=== PATIENT | female | born 1985 | race Caucasian/White ===

== ENCOUNTER 2016-08-19 00:44 | Inpatient (IN) | payer OTHER ==
[~2016-08-19] VITALS: Ht 154.9 cm; Wt 73.9 kg
[2016-08-19] VITALS (8 sets, daily range): BP systolic 91–117; BP diastolic 52–64; O2SAT 97
[~2016-08-19 00:44] MED LIST: ADVI200C5 PO; AMIT10TA2 OR; BISA10SU2 PR; BUPR8SUB SL; BUSP10TA PO; CAPT12.5 OR; CEPH2CAP PO; CHLO25CA PO; COLA100C2 OR; GABA-279 PO; GABA300C3 PO; GABA400C PO; GABA600T PO; KLON0.5T PO; KLON1TAB OR; KLON1TAB PO; MAG400TA PO; MAGN500T2 OR; MILKSUS OR; Ortho-Evra PO; RISP0.5T16 PO; RISP0.5T23 PO; RISP1TAB3 PO; RISP1TAB41 PO; SUBO8TA PO; TOPA25TA10 PO; TOPR25TA OR; TRAZ50TA4 PO; VIST50CA PO; ZOLO100T PO; [UNRECOGNIZED DRUG - CODE] TOP; [UNRECOGNIZED DRUG - MIXTURE] TOP; birth control PO; effexor xr PO; suboxone PO
--- NOTE | 2016-08-19 02:30 | REPUSA ---
HISTORY: Sybncope COMPARISON: Ct brain 04.13.16 TECHNIQUE: Multiple thin-section contiguous helically-acquired, axially-displayed computed tomographic images of the brain were obtained from the posterior fossa continued through the supratentorial structures, with images reviewed at brain, intermediate, and bone windows. FINDINGS: No acute intracranial hemorrhage or evidence of acute transcortical ischemia. No suspicious intra or extra axial fluid collection, middling shift, or evidence of hydrocephalus. The orbits and sella demonstrate no suspicious abnormality. Visualized paranasal sinuses, mastoid air cells, and middle ear cavities are patent. Osseous structures and extra cranial soft tissues demonstrate no abnormalities. IMPRESSION: No acute intracranial abnormality. Thank you for your kind referral of this patient.
[2016-08-19] MEDS ORDERED: levETIRAcetam 500 MG/5 ML VIAL (KEPPRA IV)(J1953) As Ordered ONE (02:45)
[2016-08-19 02:56] LABS: BASO # 0.1 K/mm3 (0.0-0.2); BASO % 1.3 % (0.0-1.0); EOS # 0.1 K/mm3 (0.0-0.50); EOS % 1.5 % (0.0-3.0); LARGE UNSTAINED CELL # 0.2 K/mm3 (0.0-0.4); LARGE UNSTAINED CELL % 1.8 % (0.0-4.0); MEAN CORPUSCULAR HEMOGLOBIN 29.7 pg (27.0-33.0); MEAN CORPUSCULAR VOLUME 95.6 fl (80.0-96.0); MONO # 0.5 K/mm3 (0.0-0.8); MONO % 5.8 % (0.0-5.0); NEUTROPHILS # 5.4 K/mm3 (1.8-7.7); NEUTROPHILS % 58.6 % (36.0-66.0); PLATELET COUNT, AUTOMATED 225 k/mm3 (150-450); RED CELL DISTRIBUTION WIDTH 14.1 % (11.5-14.5); WHITE BLOOD COUNT 9.2 K/mm3 (4.0-10.0)
--- NOTE | 2016-08-19 03:00 | REP ---
Clinical: Syncope . Comparison: 11/22/2011 . Findings: The mediastinum and cardiac silhouette are stable and within normal limits for portable technique. The lung francis are clear without acute consolidation, effusion, or pneumothorax. Skeletal structures are intact. Impression: Normal portable chest x-ray Signed by Yogi Huerta MD 08/19/2016 02:51 A
[2016-08-19 03:15] LABS: AMPHETAMINES LEVEL URINE POSITIVE (NEGATIVE); BENZODIAZEPINES URINE NEGATIVE (NEGATIVE); COCAINE METABOLITE URINE NEGATIVE (NEGATIVE); CONTROL LINE INT CTR LINE PRESENT; METHADONE URINE NEGATIVE (NEGATIVE); OPIATES URINE NEGATIVE (NEGATIVE); TRICYCLIC ANTIDEPRESS URINE POSITIVE (NEGATIVE)
[2016-08-19 04:05] LABS: ALBUMIN 3.6 GM/DL (3.2-5.2); ALBUMIN/GLOBULIN RATIO 0.82 (1.00-1.93); ALKALINE PHOSPHATASE 113 U/L (45-117); ALT/SGPT 65 U/L (12-78); ANION GAP 14 MEQ/L (8-16); AST/SGOT 100 U/L (15-37); BILIRUBIN,TOTAL 0.3 MG/DL (0.2-1.0); BLOOD UREA NITROGEN 12 MG/DL (7-18); CALCIUM LEVEL 8.1 MG/DL (8.5-10.1); CARBON DIOXIDE LEVEL 19 MEQ/L (21-32); CHLORIDE LEVEL 102 MEQ/L (98-107); GLUCOSE, FASTING 92 MG/DL (70-105); SODIUM LEVEL 135 MEQ/L (136-145)
[2016-08-19 04:09] LABS: CREATININE FOR GFR 0.99 MG/DL (0.55-1.02); GLOMERULAR FILTRATION RATE > 60.0 (>60)
[2016-08-19 04:10] LABS: BILIRUBIN,DIRECT < 0.1 MG/DL (0.0-0.2)
[2016-08-19] MEDS ORDERED: OXAZEPAM 15 MG CAP As Ordered ONE (04:12)
[2016-08-19] MEDS ORDERED: QUET5TAB PO (04:57)
[2016-08-19] MEDS ORDERED: BUPR8SUB SL (04:57)
[2016-08-19] MEDS ORDERED: PRAZ1CAP PO (04:57)
[2016-08-19] MEDS ORDERED: GABA300C3 PO (04:57)
[2016-08-19] MEDS ORDERED: TOPI50TA4 PO (04:57)
[2016-08-19 05:30] LABS: CONTROL LINE HCG INT CTR LINE PRESENT
[2016-08-19] MEDS ORDERED: ONDANSETRON 4MG/2ML VIAL (J2405) IV PRN (06:30)
[2016-08-19 08:17] LABS: ANION GAP 8 MEQ/L (8-16); BLOOD UREA NITROGEN 10 MG/DL (7-18); CALCIUM LEVEL 8.5 MG/DL (8.5-10.1); CARBON DIOXIDE LEVEL 25 MEQ/L (21-32); CHLORIDE LEVEL 106 MEQ/L (98-107); CREATININE FOR GFR 0.76 MG/DL (0.55-1.02); GLOMERULAR FILTRATION RATE > 60.0 (>60); GLUCOSE, FASTING 108 MG/DL (70-105); MAGNESIUM LEVEL 1.9 MG/DL (1.8-2.4); POTASSIUM SERUM 4.1 MEQ/L (3.5-5.1); SODIUM LEVEL 139 MEQ/L (136-145)
--- NOTE | 2016-08-19 08:28 | HPE ---
DATE OF ADMISSION: 08/19/2016 This is a patient of Dr. Watkins. CHIEF COMPLAINT: Passed out. SUMMARY OF PRESENTATION: This is a 31-year-old female who was smoking a cigarette outside with her friend when her friend noticed her to fall backwards and become unconscious. She has had previous episodes like this associated with recreational drugs. She was recently in a 28-day rehabilitation program for legal reason. She denies using any recreational drugs at this time, although her toxicology screen is noted to be positive in the emergency department. She had no warning this event was going to happen and apparently woke up slowly afterwards. Her friend who was with her when the event occurred is not with her in the emergency department. PAST MEDICAL HISTORY (Notable for): 1. Hepatitis C. 2. Polysubstance abuse, previously on Suboxone. 3. History of cardiac arrest and resuscitation. 4. History of prolonged QTc interval. 5. Anxiety and depression. 6. Post traumatic stress disorder (PTSD). 7. Tobacco use. PAST SURGICAL HISTORY (Notable for): 1. section. 2. Umbilical hernia repair. SOCIAL HISTORY: She lives in [place]. She continues to smoke tobacco. Denies alcohol use. She has history of IV heroin use, cocaine, synthetic marijuana. FAMILY HISTORY: Notable for a mother who is alive and well and a father who with hepatitis C. REVIEW OF SYSTEMS: No headache. No visual changes. No runny nose. No sore throat. No neck pain. No cough. No shortness of breath. No orthopnea. No chest pain. No abdominal pain. No change in her bowel or bladder habits. Otherwise unremarkable. PHYSICAL EXAMINATION: Blood pressure 130/67. Pulse 125. Respiratory rate 18. Temperature 97.4. 98% on room air. Body mass index (BMI) is 24.5. She is sleepy, but easily aroused. Head is normocephalic. Sinuses are nontender. Pupils are enlarged, but reactive to light. Sclerae anicteric, not injected. Nasal septum is midline. Mucous membranes moist. Neck supple. Breathing is symmetrical, rested. I:E ratio is 1:3. No wheezes, rales or rhonchi. Heart is in a regular rate and rhythm, is tachycardiac, with a rate between 100 and 110. Radial pulses 2+. Capillary refill is less than 2 seconds. Abdomen soft, doughy, nontender. There is no lower extremity edema. She has a flattened affect and depressed mood. White cell count 9.2, hemoglobin 11.9 and platelets of 225. Sodium 135, potassium was hemolyzed, carbon dioxide 19, lactic acid 8.8, AST 100, CK 360, troponin I less than 0.02 and hCG negative. Urine culture is pending. Chest x-ray is unremarkable. Head CT unremarkable. ASSESSMENT: This is a 31-year-old who suffered what would appear to be a syncopal event, the cause of which remains unclear. The patient will require a two midnight hospital stay for further diagnosis and monitoring. PLAN: 1. Cardiovascular. The patient had a syncopal episode and has previous history of cardiac arrest with prolonged QT. The patient will require telemetry monitoring. QTc is within the normal range at this point. No obvious role for a repeat echocardiogram, although this seems to be a cardiovascular event, the possibility of a neurologic event also occurs to me as she had a prolonged period of time for recovery, so electroencephalogram (EEG) is ordered as well. 2. The patient has elevated lactic acid level, which will be repeated. The patient has received IV fluid which will continue. The cause of her lactic acid is probably the syncopal event. 3. The patient has history of hepatitis C. 4. The patient has history of polysubstance abuse. I believe that use of some substance is likely underlying her presentation. 5. Deep vein thrombosis (DVT) prophylaxis is ordered. 6. The patient has significant psychiatric history. 7. The patient has ongoing tobacco use. Nicotine replacement therapy is ordered.
--- NOTE | 2016-08-19 08:44 | ECGEPIP ---
Stationary ECG Study [facility] - ED Test Date: 2016-08-19 Pat Name: BIGG SIMS Department: Room: - Gender: F [employer]: : 1985 Requested By: CHRISTOPH Cohen Order Number: [id number] Reading MD: Taco Blackman Measurements Intervals [place] Rate: 112 P: 49 CO: 147 QRS: 12 QRSD: 106 T: -3 QT: 355 QTc: 485 Interpretive Statements SINUS TACHYCARDIA INCOMPLETE RIGHT BUNDLE BRANCH BLOCK NONSPECIFIC ST & T-WAVE ABNORMALITY SIMILAR TO 05/20/16 Electronically Signed On 08-19-2016 8:44:21 EST by Taco Blackman
--- NOTE | 2016-08-19 09:45 | EDDOCDS ---
Physician Documentation [facility] Name: Cely Galindo Age: 31 yrs Sex: Female : 1985 Arrival Date: 08/19/2016 Time: 00:44 Bed 2 Private MD: Disposition: 08/19/16 04:42 Hospitalization ordered by Sarthak Preston for Observation. Preliminary diagnosis are Epileptic seizures related to external causes, not intractable, without status epilepticus, Underdosing of barbiturates - abuse with withdrawl. - Bed requested for PCU. - Status is Observation. kc3 - Condition is Stable. - Problem is an acute exacerbation. - Symptoms have improved. Historical: - Allergies: no known allergies; - Home Meds: 1. gabapentin 600 mg Oral tab 1 tab 3 times per day 2. Risperdal 1 mg Oral tab bedtime 3. olanzapine 10 mg oral tab 1 tab twice a day 4. topamate 25 mg daily 5. subutex 8mg twice a day 6. Seroquel 50 mg Oral tab 1 tab daily - PMHx: PTSD; Schizophrenia; - PSHx: ; umbilical hernia x 2; - Social history: Smoking status: Patient uses tobacco products, heavy tobacco smoker. No barriers to communication noted, The patient speaks fluent Greenlandic, Speaks appropriately for age. - Family history: Not pertinent. - : The pt / caregiver states he / she is not on anticoagulants. Home medication list is obtained from the patient. - Exposure Risk Screening:: None identified. 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 1 in. (154.94 cm) (R); Pain 0/10; 01:05 BP 105 / 59 (auto/); nn1 01:05 Pulse 121 MON; Pulse Ox 99% ; nn1 02:42 Pulse 126 MON; Pulse Ox 99% ; nn1 02:42 BP 105 / 58 (auto/); nn1 02:44 BP 130 / 67 (auto/); nn1 02:45 Pulse 125 MON; Pulse Ox 98% ; nn1 03:01 BP 114 / 63 (auto/); nn1 03:01 Pulse 119 MON; Pulse Ox 94% ; nn1 03:15 Pulse 106 MON; Pulse Ox 94% ; nn1 03:16 BP 102 / 55 (auto/); nn1 03:31 BP 95 / 53 (auto/); nn1 03:31 Pulse 105 MON; Pulse Ox 94% ; nn1 03:46 BP 88 / 54 (auto/); nn1 03:46 Pulse 103 MON; Pulse Ox 95% ; nn1 04:01 BP 93 / 55 (auto/); nn1 04:01 Pulse 102 MON; Pulse Ox 96% ; nn1 04:16 BP 102 / 71 (auto/); nn1 04:17 Pulse 108 MON; Pulse Ox 99% ; nn1 04:31 BP 96 / 66 (auto/); nn1 04:31 Pulse 92 MON; Pulse Ox 98% ; nn1 05:01 BP 112 / 60 (auto/); nn1 05:01 Pulse 91 MON; nn1 05:16 BP 114 / 59 (auto/); nn1 05:16 Pulse 93 MON; nn1 05:31 BP 117 / 62 (auto/); nn1 05:31 Pulse 94 MON; Pulse Ox 99% ; nn1 05:46 BP 93 / 54 (auto/); nn1 05:46 Pulse 83 MON; Pulse Ox 97% ; nn1 06:01 BP 107 / 64 (auto/); nn1 06:01 Pulse 81 MON; Pulse Ox 97% ; nn1 06:16 BP 112 / 67 (auto/); nn1 06:16 Pulse 93 MON; Pulse Ox 96% ; nn1 06:19 Resp 20; nn1 06:31 BP 94 / 48 (auto/); nn1 06:31 Pulse 88 MON; Pulse Ox 97% ; nn1 06:31 Resp 20; Temp 99.0(TE); nn1 06:46 BP 94 / 54 (auto/); jjr 06:46 Pulse 90 MON; Pulse Ox 97% ; jjr 07:01 BP 98 / 55 (auto/); jjr 07:01 Pulse 95 MON; Resp 18; Pulse Ox 97% on R/A; jjr 09:41 BP 94 / 51; Pulse 93; Resp 18; Temp 98.9(TE); Pulse Ox 97% on R/A; Pain 0/10; rn1 00:54 Body Mass Index 24.56 (58.97 kg, 154.94 cm) mdr MDM: 01:05 Immigration Paral[place]/Pulse Ox/q 15 min VS ordered. mm11 01:05 Accucheck ordered. mm11 01:05 IV Saline Lock ordered. mm11 01:05 Rhythm Strip to chart ordered. mm11 01:07 CBC with Diff Ordered. EDMS 01:07 Cardiac Injury Profile Ordered. EDMS 01:07 Drug Eval Toxicology ED Only Ordered. EDMS 01:07 Liver Profile Ordered. EDMS 01:07 MED Profile Ordered. EDMS 01:07 Thyroid Stimulating Hormone Ordered. EDMS 01:07 Troponin Ordered. EDMS 01:07 Urinalysis Ordered. EDMS 01:07 ETOH Ordered. EDMS 01:07 Urine Culture Ordered. EDMS 01:07 Chest, 1 View Ordered. EDMS 01:07 CT Head Without Contrast Ordered. EDMS 01:07 ECG WITH READING ER PHYS+CARDIAG ordered. EDMS 02:30 levETIRAcetam (20mg/kg) 500 mg IVPB at 400 mL/hr once over 15 mins; dilute in 100mL NS mm11 or D5W ordered. 02:31 Lactic Acid (Zabala tube on ice) Ordered. EDMS 02:47 Financial registration complete. pm4 03:33 CBC with Diff Reviewed. mm11 03:33 Drug Eval Toxicology ED Only Reviewed. mm11 03:33 Urinalysis Reviewed. mm11 03:33 CT Head Without Contrast Reviewed. mm11 03:33 Chest, 1 View Reviewed. mm11 04:07 Oxazepam 15 mg PO once ordered. mm11 04:10 [facility] [place] was scanned into [employer] and attached to record. hs2 04:24 Cardiac Injury Profile Reviewed. mm11 04:24 Liver Profile Reviewed. mm11 04:24 MED Profile Reviewed. mm11 04:24 Thyroid Stimulating Hormone Reviewed. mm11 04:24 Troponin Reviewed. mm11 04:24 ETOH Reviewed. mm11 04:33 Lactic Acid (Zabala tube on ice) Reviewed. mm11 04:36 BED REQUEST+ADM ordered. EDMS 05:23 HCG,Serum Qualitative Ordered. EDMS 05:35 HCG,Serum Qualitative Reviewed. mm11 06:35 Admission / Observation Status ordered. EDMS 06:36 REGULAR DIET ordered. EDMS 06:36 BASIC METABOLIC PROFILE Ordered. EDMS 06:36 MAGNESIUM LEVEL Ordered. EDMS 06:36 LACTIC ACID LEVEL, LACTATE Ordered. EDMS Administered Medications: 02:29 CANCELLED (Other Intervention Used): levETIRAcetam (20mg/kg) 1000 mg IVPB at 400 mL/hr mm11 once over 15 mins; dilute in 100mL NS or D5W 02:51 Drug: levETIRAcetam (20mg/kg) 500 mg [levetiracetam 500 mg/5 mL intravenous solution] nn1 Route: IVPB; Rate: 400 mL/hr; Infused Over: 15 mins; Site: right forearm; 04:17 Drug: Oxazepam 15 mg [oxazepam 15 mg capsule (1 caps)] Route: PO; nn1 Signatures: Dispatcher [employer] EDMS Noman Cohen DO DO mm11 Rush Pickett RN RN nn1 Fito Epps RN RN [facility] Sofia Sandoval RN RN kc3 Joya Ansari, Reg Reg hs2 Garth Eid, Reg Reg pm4 The chart was reviewed and I authenticate all verbal orders and agree with the evaluation and treatment provided.Corrections: (The following items were deleted from the chart) 02:29 02:28 levETIRAcetam (20mg/kg) 1000 mg IVPB at 400 mL/hr once over 15 mins; dilute in mm11 100mL NS or D5W ordered. mm11 Attachments: 04:10 [facility] Payment Agreement hs2 MTDD
--- NOTE | 2016-08-19 09:46 | EDDOCDS ---
Nurse's Notes [facility] Name: Bigg Sims Age: 31 yrs Sex: Female : 1985 Arrival Date: 08/19/2016 Time: 00:44 Bed 2 Private MD: Diagnosis: Epileptic seizures related to external causes, not intractable, without status epilepticus;Underdosing of barbiturates-abuse with withdrawl Presentation: 08/19 00:48 Presenting complaint: EMS states: patients friend reports patient was outside smoking a nn1 cigarette when she fell backwards. Patient unconscious upon EMS arrival. Patient has been slowly waking up since. Patient recently discharged from rehab center. Suicide/Homicide risk assessment- the patient denies having any suicidal and/or homicidal ideations and does not present with any other emotional, behavioral or mental health complaints. Status: Patient is not a resident services director or dependent. Transition of care: patient was not received from another setting of care. 00:48 Acuity: KRISTYN Level 3 nn1 00:48 Method Of Arrival: Ambulance nn1 00:49 Care prior to arrival: Glucose check. 110. nn1 00:50 Adult Sepsis Screening: Patient has new or worsening altered mentation (1 point). nn1 Patient's respiratory rate is less than 22. Systolic blood pressure is greater than 100. Patient has a qSOFA score of 0- Negative Sepsis Screen. Triage Assessment: 00:53 General: Appears in no apparent distress, comfortable, Behavior is appropriate for age, nn1 cooperative. Pain: Denies pain. HIV screening NA for this visit Offered previously. The patient is triaged at the bedside. See Assessment in Nurses Notes section of ED record. Neurological: Level of Consciousness is awake, obeys commands, Oriented to person, place, time, Ice Sculptor are equal bilaterally Speech is normal, Pupils are dilated. Cardiovascular: Rhythm is sinus tachycardia No ectopy. Respiratory: Airway is patent Respiratory effort is even, unlabored, Respiratory pattern is regular, symmetrical. GI: Abdomen is non- distended Bowel sounds present X 4 quads. NOTE KEEPER: 06:49 LMP 08/10/2016 nn1 Historical: - Allergies: no known allergies; - Home Meds: 1. gabapentin 600 mg Oral tab 1 tab 3 times per day 2. Risperdal 1 mg Oral tab bedtime 3. olanzapine 10 mg oral tab 1 tab twice a day 4. topamate 25 mg daily 5. subutex 8mg twice a day 6. Seroquel 50 mg Oral tab 1 tab daily - PMHx: PTSD; Schizophrenia; - PSHx: ; umbilical hernia x 2; - Social history: Smoking status: Patient uses tobacco products, heavy tobacco smoker. No barriers to communication noted, The patient speaks fluent Y[place], Speaks appropriately for age. - Family history: Not pertinent. - : The pt / caregiver states he / she is not on anticoagulants. Home medication list is obtained from the patient. - Exposure Risk Screening:: None identified. Screenin:48 Screening information is obtained from the patient. Fall risk: At risk due to apparent nn1 cognitive impairment. Assistance ADL's: requires no assistance with activities of daily living. Abuse/DV Screen: The patient / caregiver reports he/she is: not in a situation that causes fear, pain or injury. Nutritional screening: No deficits noted. Advance Directives: There is no active DNR order. home support is adequate. Assessment: 00:54 General: See triage assessment . nn1 01:15 General: Patient intermittently twitching. Appears very drowsy, reports taking her nn1 night medication. Patient obeys commands, speech is appropriate. . Pain: Denies pain. Neurological: Level of Consciousness is obeys commands, Oriented to person, place, time. 02:30 General: Patient began having seizure at 0225. Seizure witnessed by this documenter and nn1 staff. Patient non responsive at this time. No IV access at this time despite multiple attempts. Patient on nonrebreather. . General:. Neurological: Level of Consciousness is unresponsive. Cardiovascular: Rhythm is sinus tachycardia No ectopy. Respiratory: Airway is patent Respiratory effort is even, Respiratory pattern is regular. Derm: Skin is pink, warm & dry. 02:45 General: Patient responsive at this time, IV access established. Patient very nn1 lethargic, oriented x 3. Patient has O2 saturation 98% on RA. . Neurological: Level of Consciousness is lethargic, post ictal, Oriented to person, place, time. Respiratory: Airway is patent Respiratory effort is even, Respiratory pattern is regular. 02:50 General: Keppra infusing per order. . nn1 03:47 General: Appears in no apparent distress, to be sleeping. Behavior is drowsy. nn1 Respiratory: Airway is patent Respiratory effort is even, unlabored, Respiratory pattern is regular. Derm: Skin is pink, warm & dry. 04:29 General: Appears in no apparent distress, to be sleeping. Behavior is drowsy. Derm: nn1 Skin is pink, warm & dry. 05:31 General: Patient asleep, patient continues to be on the monitor. Seizure pads in place. nn1 Resp even/unlabored. . 05:55 General: Patient assisted to bedside commode. Patient reports feeling better, patient nn1 oriented, gait steady. Denies complaints at this time. . Neurological: Level of Consciousness is awake, alert, obeys commands, Oriented to person, place, time. 07:22 General: Appears in no apparent distress, well nourished, well groomed, Behavior is jjr appropriate for age. Pain: Location: left eye and lumbar area. Neurological: Level of Consciousness is awake, alert, obeys commands, Oriented to person, place, time, Moves all extremities. Gait is steady, Speech is normal. Cardiovascular: Rhythm is sinus rhythm. Respiratory: Airway is patent Respiratory effort is even, unlabored, Respiratory pattern is regular. Derm: Skin is pink, warm & dry. minimal swelling noted beneath outer corner bottom left eye, pt reports fall on concrete DIANETICIST. 08:33 Adult Sepsis Screening: The patient does not have new or worsening altered mentation. jjr Patient's respiratory rate is less than 22. Systolic blood pressure is greater than 100. Patient has a qSOFA score of 0- Negative Sepsis Screen. General: Appears to be sleeping. Cardiovascular: Rhythm is sinus rhythm. 09:42 General: Appears in no apparent distress, comfortable, Behavior is appropriate for age, kc3 cooperative, drowsy. Pain: Location: back and headache. Neurological: Level of Consciousness is awake, obeys commands, Oriented to person, place, time. Cardiovascular: Rhythm is sinus rhythm. Respiratory: Airway is patent Respiratory effort is even, unlabored, Respiratory pattern is regular, symmetrical. Derm: Skin is pink, warm & dry. Musculoskeletal: Circulation, motion, and sensation intact. Vital Signs: 00:51 BP 114 / 72 (auto/); nn1 00:52 Pulse 126 MON; Pulse Ox 98% ; nn1 00:54 BP 114 / 72; Pulse 125; Resp 18; Temp 97.4(TE); Pulse Ox 98% on R/A; Weight 58.97 kg mdr (R); Height 5 ft. 1 in. (154.94 cm) (R); Pain 0/10; 01:05 BP 105 / 59 (auto/); nn1 01:05 Pulse 121 MON; Pulse Ox 99% ; nn1 02:42 Pulse 126 MON; Pulse Ox 99% ; nn1 02:42 BP 105 / 58 (auto/); nn1 02:44 BP 130 / 67 (auto/); nn1 02:45 Pulse 125 MON; Pulse Ox 98% ; nn1 03:01 BP 114 / 63 (auto/); nn1 03:01 Pulse 119 MON; Pulse Ox 94% ; nn1 03:15 Pulse 106 MON; Pulse Ox 94% ; nn1 03:16 BP 102 / 55 (auto/); nn1 03:31 BP 95 / 53 (auto/); nn1 03:31 Pulse 105 MON; Pulse Ox 94% ; nn1 03:46 BP 88 / 54 (auto/); nn1 03:46 Pulse 103 MON; Pulse Ox 95% ; nn1 04:01 BP 93 / 55 (auto/); nn1 04:01 Pulse 102 MON; Pulse Ox 96% ; nn1 04:16 BP 102 / 71 (auto/); nn1 04:17 Pulse 108 MON; Pulse Ox 99% ; nn1 04:31 BP 96 / 66 (auto/); nn1 04:31 Pulse 92 MON; Pulse Ox 98% ; nn1 05:01 BP 112 / 60 (auto/); nn1 05:01 Pulse 91 MON; nn1 05:16 BP 114 / 59 (auto/); nn1 05:16 Pulse 93 MON; nn1 05:31 BP 117 / 62 (auto/); nn1 05:31 Pulse 94 MON; Pulse Ox 99% ; nn1 05:46 BP 93 / 54 (auto/); nn1 05:46 Pulse 83 MON; Pulse Ox 97% ; nn1 06:01 BP 107 / 64 (auto/); nn1 06:01 Pulse 81 MON; Pulse Ox 97% ; nn1 06:16 BP 112 / 67 (auto/); nn1 06:16 Pulse 93 MON; Pulse Ox 96% ; nn1 06:19 Resp 20; nn1 06:31 BP 94 / 48 (auto/); nn1 06:31 Pulse 88 MON; Pulse Ox 97% ; nn1 06:31 Resp 20; Temp 99.0(TE); nn1 06:46 BP 94 / 54 (auto/); jjr 06:46 Pulse 90 MON; Pulse Ox 97% ; jjr 07:01 BP 98 / 55 (auto/); jjr 07:01 Pulse 95 MON; Resp 18; Pulse Ox 97% on R/A; jjr 09:41 BP 94 / 51; Pulse 93; Resp 18; Temp 98.9(TE); Pulse Ox 97% on R/A; Pain 0/10; rn1 00:54 Body Mass Index 24.56 (58.97 kg, 154.94 cm) mdr Vitals: 06:49 Log In Time N/A - ambulance arrival. nn1 ED Course: 00:44 Patient visited by Jose Rafael Coulter PCA. kb5 00:44 Patient moved to Waiting kb5 00:45 Patient moved to 2 kb5 00:49 Triage Initiated nn1 00:55 Patient visited by Lalo Beltran PCA. mdr 00:59 Noman Cohen DO is Attending Physician. mm11 00:59 Patient visited by Noman Cohen DO. mm11 01:04 Patient visited by Noman Cohen DO. mm11 01:16 Missed attempts: 22 gauge X 1 in left hand. nn1 01:36 Patient visited by Lalo Beltran PCA. mdr 01:36 EKG done. (by ED staff). Reviewed by Noman Cohen DO. mdr 02:08 Patient visited by Rush Pickett RN. nn1 02:41 Lactic Acid (Zabala tube on ice) Sent. sls1 02:41 CBC with Diff Sent. sls1 02:41 Cardiac Injury Profile Sent. sls1 02:41 Liver Profile Sent. sls1 02:41 MED Profile Sent. sls1 02:41 Thyroid Stimulating Hormone Sent. sls1 02:42 The patient / caregiver is instructed regarding the plan of care and ED course. Patient sls1 has correct armband on for positive identification. Placed in psych safe attire. 02:42 Troponin Sent. sls1 02:42 Inserted saline lock: 22 gauge in right forearm and blood collected. sls1 02:54 Side rails up X2. Seizure precautions initiated. groundwater monitoring technician on. Pulse ox on. NIBP sls1 on. 03:02 CT Head Without Contrast Returned. EDMS 03:02 Chest, 1 View Returned. EDMS 03:08 Patient visited by Rush Pickett RN. nn1 03:17 Seizure precautions initiated. groundwater monitoring technician on. Pulse ox on. NIBP on. nn1 03:48 Patient visited by Rush Pickett RN. nn1 04:07 Patient visited by Noman Cohen DO. mm11 04:10 [facility] Payment Agreement was scanned into [employer] and attached to record. hs2 04:29 Notified attending ED physician of Critical lab value. sls1 04:40 Sarthak Preston MD is Hospitalizing Provider. mm11 07:08 Mey Anderson RN is Primary Nurse. jjr 07:24 Patient visited by Mey Anderson RN. jjr 08:34 Patient visited by Mey Anderson RN. jjr 09:01 EKG-ADULT Returned. EDMS 09:43 No procedures done that require assistance. kc3 Administered Medications: 02:29 CANCELLED (Other Intervention Used): levETIRAcetam (20mg/kg) 1000 mg IVPB at 400 mL/hr mm11 once over 15 mins; dilute in 100mL NS or D5W 02:51 Drug: levETIRAcetam (20mg/kg) 500 mg [levetiracetam 500 mg/5 mL intravenous solution] nn1 Route: IVPB; Rate: 400 mL/hr; Infused Over: 15 mins; Site: right forearm; 04:17 Drug: Oxazepam 15 mg [oxazepam 15 mg capsule (1 caps)] Route: PO; nn1 Order Results: Lab Order: CBC with Diff; SPEC'M 08/19/16 02:37 Test: WHITE BLOOD COUNT; Value: 9.2; Range: 4.0-10.0; Units: K/mm3; Status: F Test: RED BLOOD COUNT; Value: 4.00; Range: 4.00-5.40; Units: M/mm3; Status: F Test: HEMOGLOBIN; Value: 11.9; Range: 12.0-16.0; Abnormal: Below low normal; Units: g/dl; Status: F Test: HEMATOCRIT; Value: 38.2; Range: 36.0-47.0; Units: %; Status: F Test: MEAN CORPUSCULAR VOLUME; Value: 95.6; Range: 80.0-96.0; Units: fl; Status: F Test: MEAN CORPUSCULAR HEMOGLOBIN; Value: 29.7; Range: 27.0-33.0; Units: pg; Status: F Test: MEAN CORPUSCULAR HGB CONC; Value: 31.0; Range: 32.0-36.5; Abnormal: Below low normal; Units: g/dl; Status: F Test: RED CELL DISTRIBUTION WIDTH; Value: 14.1; Range: 11.5-14.5; Units: %; Status: F Test: PLATELET COUNT, AUTOMATED; Value: 225; Range: 150-450; Units: k/mm3; Status: F Test: NEUTROPHILS %; Value: 58.6; Range: 36.0-66.0; Units: %; Status: F Test: LYMPH %; Value: 31.0; Range: 24.0-44.0; Units: %; Status: F Test: MONO %; Value: 5.8; Range: 0.0-5.0; Abnormal: Above high normal; Units: %; Status: F Test: EOS %; Value: 1.5; Range: 0.0-3.0; Units: %; Status: F Test: BASO %; Value: 1.3; Range: 0.0-1.0; Abnormal: Above high normal; Units: %; Status: F Test: LARGE UNSTAINED CELL %; Value: 1.8; Range: 0.0-4.0; Units: %; Status: F Test: NEUTROPHILS #; Value: 5.4; Range: 1.8-7.7; Units: K/mm3; Status: F Test: LYMPH #; Value: 3.0; Range: 1.5-4.5; Units: K/mm3; Status: F Test: MONO #; Value: 0.5; Range: 0.0-0.8; Units: K/mm3; Status: F Test: EOS #; Value: 0.1; Range: 0.0-0.50; Units: K/mm3; Status: F Test: BASO #; Value: 0.1; Range: 0.0-0.2; Units: K/mm3; Status: F Test: LARGE UNSTAINED CELL #; Value: 0.2; Range: 0.0-0.4; Units: K/mm3; Status: F Lab Order: Cardiac Injury Profile; SPEC'M 08/19/16 02:37 Test: CPK CREATINE PHOSPHOKINASE; Value: 360; Range: 26-192; Abnormal: Above high normal; Units: U/L; Status: F Test: CK-MB VALUE MASS; Value: 6.5; Range: 0.0-3.6; Abnormal: Above high normal; Units: NG/ML; Status: F Test: MB/CK RELATIVE INDEX; Value: 1.80; Range: < OR =4; Status: F Test Note: ; DIAGNOSIS CRITERIA MMB ng/ml Relative Index (RI) NON-AMI < or = 5 N/A ZABALA ZONE > 5 < or = 4 AMI > 5 > 4 Lab Order: Drug Eval Toxicology ED Only; SPEC'M 08/19/16 02:22 Test: AMPHETAMINES LEVEL URINE; Value: POSITIVE; Range: NEGATIVE; Abnormal: Above high normal; Status: F Test: BARBITURATES URINE; Value: POSITIVE; Range: NEGATIVE; Abnormal: Above high normal; Status: F Test: BENZODIAZEPINES URINE; Value: NEGATIVE; Range: NEGATIVE; Status: F Test: CANNABINOIDS URINE; Value: NEGATIVE; Range: NEGATIVE; Status: F Test: COCAINE METABOLITE URINE; Value: NEGATIVE; Range: NEGATIVE; Status: F Test: METHADONE URINE; Value: NEGATIVE; Range: NEGATIVE; Status: F Test: OPIATES URINE; Value: NEGATIVE; Range: NEGATIVE; Status: F Test: TRICYCLIC ANTIDEPRESS URINE; Value: POSITIVE; Range: NEGATIVE; Abnormal: Above high normal; Status: F Test Note: ; ALL PRESUMPTIVE POSITIVE FINDINGS ARE UNCONFIRMED NORMAL VALUES THRESHOLD IN NG/ML AMPHETAMINES 1000 METHAMPHETAMINES 1000 BARBITURATES 300 BENZODIAZEPINES 300 CANNABINOIDS (THC) 50 COCAINE METABOLITE 300 METHADONE 300 OPIATES 300 PHENCYCLIDINE 25 TRICYCLIC ANTIDEPRESSANTS 1000 RESULTS ARE FOR MEDICAL PURPOSES ONLY. ALL URINE SPECIMENS WILL BE SAVED FOR 3 DAYS. IF CONFIRMATION OF A PRESUMPTIVE POSTIVE SCREEN RESULT IS DESIRED, CALL CHEMISTRY ([phone]) AND REQUEST URINE TO BE SENT TO REFERENCE LAB. FOR A LIST OF CLOSELY RELATED COMPOUNDS PLEASE CALL THE LAB. Lab Order: Liver Profile; SPEC'M 08/19/16 02:37 Test: AST/SGOT; Value: 100; Range: 15-37; Abnormal: Above high normal; Units: U/L; Status: F Test: ALT/SGPT; Value: 65; Range: 12-78; Units: U/L; Status: F Test: ALKALINE PHOSPHATASE; Value: 113; Range: 45-117; Units: U/L; Status: F Test: BILIRUBIN,TOTAL; Value: 0.3; Range: 0.2-1.0; Units: MG/DL; Status: F Test: BILIRUBIN,DIRECT; Value: < 0.1; Range: 0.0-0.2; Units: MG/DL; Status: F Test: TOTAL PROTEIN; Value: 8.0; Range: 6.4-8.2; Units: GM/DL; Status: F Test: ALBUMIN; Value: 3.6; Range: 3.2-5.2; Units: GM/DL; Status: F Test: ALBUMIN/GLOBULIN RATIO; Value: 0.82; Range: 1.00-1.93; Abnormal: Below low normal; Status: F Lab Order: MED Profile; SPEC'M 08/19/16 02:37 Test: GLUCOSE, FASTING; Value: 92; Range: 70-105; Units: MG/DL; Status: F Test: BLOOD UREA NITROGEN; Value: 12; Range: 7-18; Units: MG/DL; Status: F Test: CREATININE FOR GFR; Value: 0.99; Range: 0.55-1.02; Units: MG/DL; Status: F Test: SODIUM LEVEL; Range: 136-145; Units: MEQ/L; Status: I Test: POTASSIUM SERUM; Range: 3.5-5.1; Units: MEQ/L; Status: F Test: CHLORIDE LEVEL; Range: 98-107; Units: MEQ/L; Status: I Test: CARBON DIOXIDE LEVEL; Range: 21-32; Units: MEQ/L; Status: I Test: ANION GAP; Range: 8-16; Units: MEQ/L; Status: I Test: CALCIUM LEVEL; Range: 8.5-10.1; Units: MG/DL; Status: I Test Note: ; Testing was performed on a hemolyzed specimen. Suggest recollection of specimen for more accurate test results. Test: GLOMERULAR FILTRATION RATE; Value: > 60.0; Range: >60; Status: F Test: SODIUM LEVEL; Value: 135; Range: 136-145; Abnormal: Below low normal; Units: MEQ/L; Status: F Test: POTASSIUM SERUM; Range: 3.5-5.1; Units: MEQ/L; Status: F Test: CHLORIDE LEVEL; Value: 102; Range: 98-107; Units: MEQ/L; Status: F Test: CARBON DIOXIDE LEVEL; Value: 19; Range: 21-32; Abnormal: Below low normal; Units: MEQ/L; Status: F Test: ANION GAP; Value: 14; Range: 8-16; Units: MEQ/L; Status: F Test: CALCIUM LEVEL; Value: 8.1; Range: 8.5-10.1; Abnormal: Below low normal; Units: MG/DL; Status: F Test Note: ; Units are mL/min/1.73 m2 Chronic Kidney Disease Staging per NKF: Stage I & II GFR >=60 Normal to Mildly Decreased Stage III GFR 30-59 Moderately Decreased Stage IV GFR 15-29 Severely Decreased Stage V GFR <15 Very Little GFR Left ESRD GFR <15 on TOP EDGE BEVELER Lab Order: Thyroid Stimulating Hormone; SPEC'M 08/19/16 02:37 Test: THYROID STIMULATING HORMONE; Value: 3.440; Range: 0.358-3.740; Units: uIU/ML; Status: F Lab Order: Troponin; SPEC' 08/19/16 02:37 Test: TROPONIN I; Value: < 0.02; Range: < 0.10; Units: NG/ML; Status: F Test Note: ; Troponin I Reference Interval for [employer] LOCI: 99th Percentile= 0.00-0.045 ng/ml Risk Stratification: <= 0.10 ng/ml Decreased Risk for Adverse Clinical Events. 0.10-1.50 ng/ml Increased Risk for Adverse Clinical Events. Evaluation of additional criterion and/or repeat testing in 2-6 hours is suggested to rule out myocardial damage. >= 1.50 ng/ml Indicative of Myocardial Injury. Lab Order: Urinalysis; SPEC'M 08/19/16 02:22 Test: APPEARANCE, URINE; Value: CLEAR; Range: CLEAR; Status: F Test: COLOR, URINE; Value: YELLOW; Range: YELLOW; Status: F Test: PH,URINE; Value: 6.0; Range: 5.0-9.0; Units: UNITS; Status: F Test: SPECIFIC GRAVITY URINE AUTO; Value: 1.019; Range: 1.002-1.035; Status: F Test: PROTEIN, URINE AUTO; Value: NEGATIVE; Range: NEGATIVE; Units: mg/dL; Status: F Test: GLUCOSE, URINE (UA) AUTO; Value: NEGATIVE; Range: NEGATIVE; Units: mg/dL; Status: F Test: KETONE, URINE AUTO; Value: NEGATIVE; Range: NEGATIVE; Units: mg/dL; Status: F Test: UROBILINOGEN, URINE AUTO; Value: 0.2; Range: 0.0-2.0; Units: mg/dL; Status: F Test: BILIRUBIN, URINE AUTO; Value: NEGATIVE; Range: NEGATIVE; Status: F Test: NITRITE, URINE AUTO; Value: NEGATIVE; Range: NEGATIVE; Status: F Test: LEUKOCYTE ESTERASE, URINE AUTO; Value: NEGATIVE; Range: NEGATIVE; Status: F Test: BLOOD, URINE BLOOD; Value: NEGATIVE; Range: NEGATIVE; Status: F Test: WBC, URINE AUTO; Value: 1; Range: 0-3; Units: /HPF; Status: F Test: RBC, URINE AUTO; Value: 1; Range: 0-3; Units: /HPF; Status: F Test: BACTERIA, URINE AUTO; Value: 1+; Range: NEGATIVE; Abnormal: Above high normal; Status: F Test: SQUAMOUS EPITHELIAL CELL UR AU; Value: 2; Range: 0-6; Units: /HPF; Status: F Test: HYALINE CAST, URINE AUTO; Value: 0; Range: 0-1; Units: /LPF; Status: F Lab Order: ETOH; SPEC'M 08/19/16 02:37 Test: ETHYL ALCOHOL (ETHANOL); Value: < 0.003; Range: 0.000-0.010; Units: %; Status: F Lab Order: Lactic Acid (Zabala tube on ice); SPEC'M 08/19/16 02:30 Test: LACTIC ACID LEVEL, LACTATE; Value: 8.8; Range: 0.4-2.0; Abnormal: Above upper panic limits; Units: MMOL/L; Status: F Lab Order: HCG,Serum Qualitative; SPEC'M 08/19/16 02:37 Test: HCG, SERUM QUALITATIVE; Value: NEGATIVE; Range: NEGATIVE; Status: F Lab Order: BASIC METABOLIC PROFILE; SPEC'M 08/19/16 07:48 Test: GLUCOSE, FASTING; Value: 108; Range: 70-105; Abnormal: Above high normal; Units: MG/DL; Status: F Test: BLOOD UREA NITROGEN; Value: 10; Range: 7-18; Units: MG/DL; Status: F Test: CREATININE FOR GFR; Value: 0.76; Range: 0.55-1.02; Units: MG/DL; Status: F Test: GLOMERULAR FILTRATION RATE; Value: > 60.0; Range: >60; Status: F Test: SODIUM LEVEL; Value: 139; Range: 136-145; Units: MEQ/L; Status: F Test: POTASSIUM SERUM; Value: 4.1; Range: 3.5-5.1; Units: MEQ/L; Status: F Test: CHLORIDE LEVEL; Value: 106; Range: 98-107; Units: MEQ/L; Status: F Test: CARBON DIOXIDE LEVEL; Value: 25; Range: 21-32; Units: MEQ/L; Status: F Test: ANION GAP; Value: 8; Range: 8-16; Units: MEQ/L; Status: F Test: CALCIUM LEVEL; Value: 8.5; Range: 8.5-10.1; Units: MG/DL; Status: F Test Note: ; Units are mL/min/1.73 m2 Chronic Kidney Disease Staging per NKF: Stage I & II GFR >=60 Normal to Mildly Decreased Stage III GFR 30-59 Moderately Decreased Stage IV GFR 15-29 Severely Decreased Stage V GFR <15 Very Little GFR Left ESRD GFR <15 on TOP EDGE BEVELER Lab Order: MAGNESIUM LEVEL; SPEC'M 08/19/16 07:48 Test: MAGNESIUM LEVEL; Value: 1.9; Range: 1.8-2.4; Units: MG/DL; Status: F Lab Order: LACTIC ACID LEVEL, LACTATE; SPEC'M 08/19/16 07:48 Test: LACTIC ACID LEVEL, LACTATE; Value: 1.2; Range: 0.4-2.0; Units: MMOL/L; Status: F Radiology Order: CT Head Without Contrast Test: CT Head Without Contrast REASON FOR EXAMINATION: Syncope; ; HISTORY: Sybncope; COMPARISON: Ct brain 9.13.16; TECHNIQUE:; Multiple thin-section contiguous helically-acquired, axially-displayed computed tomographic images of; the brain were obtained from the posterior fossa continued through the supratentorial; structures, with images reviewed at brain, intermediate, and bone windows.; FINDINGS:; No acute intracranial hemorrhage or evidence of acute transcortical ischemia. No suspicious intra or; extra axial fluid collection, middling shift, or evidence of hydrocephalus.; The orbits and sella demonstrate no suspicious abnormality.; Visualized paranasal sinuses, mastoid air cells, and middle ear cavities are patent.; Osseous structures and extra cranial soft tissues demonstrate no abnormalities.; IMPRESSION:; No acute intracranial abnormality.; Thank you for your kind referral of this patient.; ; Radiology Order: Chest, 1 View Test: Chest, 1 View REASON FOR EXAMINATION: Syncope; Clinical: Syncope .; ; Comparison: 11/22/2011 .; ; Findings:; The mediastinum and cardiac silhouette are stable and within normal limits for; portable technique. The lung francis are clear without acute consolidation,; effusion, or pneumothorax. Skeletal structures are intact.; ; Impression:; Normal portable chest x-ray; ; ; Signed by; Yogi Huerta MD 08/19/2016 02:51 A; Radiology Order: EKG-ADULT Test: EKG-ADULT REASON FOR EXAMINATION: Syncope; Stationary ECG Study; [facility] - ED; ; Test Date: 2016-08-19; Pat Name: BIGG SIMS Department:; Room: -; Gender: F Ware Carrier: ; : 1985 Requested By: NOMAN Cohen; Order Number: [id number] Reading MD: Taco Blackman; Measurements; Intervals [place]; Rate: 112 P: 49; SC: 147 QRS: 12; QRSD: 106 T: -3; QT: 355; QTc: 485; Interpretive Statements; SINUS TACHYCARDIA; INCOMPLETE RIGHT BUNDLE BRANCH BLOCK; NONSPECIFIC ST T-WAVE ABNORMALITY; SIMILAR TO 05/20/16; Electronically Signed On 08-19-2016 8:44:21 EST by Taco Blackman; Outcome: 04:42 Decision to Hospitalize by Provider. mm11 09:42 Discharge Assessment: patient administered narcotics - no. The following High Risk kc3 Discharge criteria are identified: None. Admitted to PCU accompanied by nurse, via stretcher, on monitor, with chart. Condition: stable. CT Study completed. Property :Personal belongings accompany Pt. 09:44 Patient left the ED. kc3 Signatures: Dispatcher [employer] EDMS Jose Rafael Coulter, INDUSTRIAL ORGANIZATION MANAGER INDUSTRIAL ORGANIZATION MANAGER kb5 Noman Cohen, DO DO mm11 Mey Anderson, RN RN Azra Edgar RN RN sls1 Kwaku Collins rn1 Rush PickettRN RN nn1 Lalo Beltran, INDUSTRIAL ORGANIZATION MANAGER INDUSTRIAL ORGANIZATION MANAGER Sofia FloresRN RN kc3 Joya Ansari, Reg Reg hs2 MTDD
[2016-08-19] MEDS: NS 1,000 ML IV SCH ×3 (11:22→19:45)
[2016-08-19] MEDS: ENOXAPARIN 40 MG/0.4 ML SYRINGE (J1650) SC SCH (11:23)
[2016-08-19] MEDS: NICOTINE 21MG/24HR 1 EA TRANSDERMAL TD SCH (11:23)
[2016-08-19] MEDS: IBUPROFEN 400 MG TAB PO PRN (12:24)
--- NOTE | 2016-08-19 20:06 | IPNPDOC ---
Assessment/Plan Date Seen The patient was seen on 08/19/16. Plan / VTE VTE Prophylaxis Ordered?: Yes (enoxiparin) Plan IVF: Continue Diet: Continue Current Plan Text 1. Syncope - cardiogenic vs. secondary to drug-abuse vs seizure. Because of pt hx of long QT, pt will be observed on telemetry for 2 days to r/o syncope secondary to arrhythmia. Pt also has a hx of seizures and because her CK-MB and lactic acid was elevated in the ED, it is also possible her syncope was caused by a seizure. Will consider EEG. Will give maintenance IV fluids. 2. Schizophrenia - symptoms are managed well by her home medications. Continue current Risperdal 1 mg PO QD, olanzapine 10mg PO BID. 3. Migraines - pt states her h/a has receded, continue Topiramate 25mg QD for prophylaxis 4. Tobacco usage and other substance abuse - Pt smokes 1 PPD, will give pt nicotine patches while she is in the hospital. 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 5. Lower back pain (chronic) 6. History of hepatitis C 7. VTE Prophylaxis - TEDS SEQS Subjective Review of Systems CC/HPI The patient is a 31-year-old female admitted with a reason for visit of Syncope. Events since last encounter Pt was seen at bedside today. Pt reported feeling extremely fatigued and mentally foggy. No events reported overnight. Pt reports lower back pain which shes had chronically and left orbital eye pain from hitting her head. Pt denies h/a, palpitations, chest pain, shortness of breath, nausea, vomiting, abdominal pain, numbness/tingling, and weakness. General: Reports: Fatigue, Malaise, Denies: Chills, Night Sweats Eyes: Denies: Vision change Pulmonary: Denies: Cough, Pleuritic Chest Pain Cardiovascular: Denies: Chest Pain, Lt Headedness, Palpitations Gastrointestinal: Denies: Abdominal Pain, Nausea, Vomiting Musculoskeletal: Reports: Back Pain Neurological: Denies: Numbness, Weakness Psych: Reports: Mood Normal Objective Physical Examination General Exam: Positive: Alert, Cooperative, No Acute Distress Eye Exam: Positive: Conjunctiva & lids normal, EOMI ENT Exam: Positive: Other ENT (Left orbital ecchymosis ) Chest Exam: Positive: Clear to auscultation, Normal air movement, Negative: Diminished, Rales, Rhonchi, Wheezing Heart Exam: Positive: Normal S1, Normal S2, Regular Rhythm, Tachycardic, Negative: Gallops, Murmurs, Rubs Abdomen Exam: Positive: Normal bowel sounds, Soft, Negative: Tenderness Extremity Exam: Positive: Normal pulses Skin Exam: Positive: Nl turgor and temperature Psych Exam: Positive: Mental status NL, Oriented x 3 Vital Signs/I&O Vital Signs Date Time Temp Pulse Resp B/P Pulse Ox O2 Delivery O2 Flow Rate FiO2 08/19/16 07:52 95.6 98 20 107/59 99 Room Air Laboratory Data Labs 24H Laboratory Tests 2 08/19/16 02:22: Urine Amorphous Sediment , Urine Amphetamine Level POSITIVEH, Urine Benzodiazepines Screen NEGATIVE, Urine Cannabinoids NEGATIVE, Urine Cocaine Metabolite NEGATIVE, Urine Opiates Screen NEGATIVE, Urine Appearance CLEAR, Urine Color YELLOW, Urine pH 6.0, Urine Specific Sutton 1.019, Urine Protein NEGATIVE, Urine Glucose (UA) NEGATIVE, Urine Ketones NEGATIVE, Urine Urobilinogen 0.2, Urine Bilirubin NEGATIVE, Urine Leukocyte Esterase NEGATIVE, Urine Bacteria (Auto) 1+H, Urine Barbiturates, Qualitative POSITIVEH, Urine Blood NEGATIVE, Urine Calcium Carbonate Cryst(Auto) , Urine Calcium Oxalate Cryst (Auto) , Urine Calcium Phosphate Maria Esther (Auto) , Urine Cellular Casts , Urine Cystine Crystals , Urine Granular Casts (Auto) , Urine Hyaline Casts (Auto ) 0, Urine Leucine Crystals , Urine Methadone Screen NEGATIVE, Urine Mucus (Auto ) , Urine Nitrite NEGATIVE, Urine Oval Fat Bodies (Auto) , Urine RBC (Auto) 1, Urine Renal Epithelial Cells , Urine Sperm (Auto) , Urine Squamous Epithelial Cells 2, Urine Transitional Epithelial Cells , Urine Trichomonas (Auto) , Urine Tricyclic Antidepressants POSITIVEH, Urine Triple Phosphate Cryst (Auto) , Urine Tyrosine Crystals , Urine Uric Acid Crystals (Auto) , Urine WBC (Auto) 1, Urine Waxy Casts (Auto) , Urine Yeast-Like Cells (Auto) 08/19/16 02:30: Lactic Acid Level 8.8*H 08/19/16 02:37: Aspartate Amino Transf (AST/SGOT) 100H, Alanine Aminotransferase (ALT/SGPT) 65, Alkaline Phosphatase 113, Total Bilirubin 0.3, Direct Bilirubin < 0.1, Albumin 3.6, Albumin/Globulin Ratio 0.82L, Anion Gap 14, White Blood Count 9.2, Red Blood Count 4.00, Hemoglobin 11.9L, Hematocrit 38.2, Mean Corpuscular Volume 95.6, Mean Corpuscular Hemoglobin 29.7, Mean Corpuscular Hemoglobin Concent 31.0L, Red Cell Distribution Width 14.1, Platelet Count 225, Neutrophils (%) ( Auto) 58.6, Lymphocytes (%) (Auto) 31.0, Monocytes (%) (Auto) 5.8H, Eosinophils (%) (Auto) 1.5, Basophils (%) (Auto) 1.3H, Neutrophils # (Auto) 5.4, Lymphocytes # (Auto) 3.0, Monocytes # (Auto) 0.5, Eosinophils # (Auto) 0.1, Basophils # (Auto) 0.1, Calcium Level 8.1L, Creatine Kinase MB 6.5H, Creatine Kinase MB Relative Index 1.80, Ethyl Alcohol Level < 0.003, Glomerular Filtration Rate > 60.0, Human Chorionic Gonadotropin, Qual NEGATIVE, Large Unclassified Cells # 0.2, Large Unclassified Cells % 1.8, Thyroid Stimulating Hormone (TSH) 3.440, Total Creatine Kinase 360H, Total Protein 8.0, Troponin I < 0.02 08/19/16 07:48: Lactic Acid Level 1.2, Anion Gap 8, Calcium Level 8.5, Glomerular Filtration Rate > 60.0, Blood Urea Nitrogen 10, Creatinine 0.76, Sodium Level 139, Potassium Level 4.1, Chloride Level 106, Carbon Dioxide Level 25, Magnesium Level 1.9 CBC/BMP Laboratory Tests 08/19/16 02:37 Red Blood Count 4.00, Mean Corpuscular Volume 95.6, Mean Corpuscular Hemoglobin 29.7, Mean Corpuscular Hemoglobin Concent 31.0 L, Red Cell Distribution Width 14.1, Neutrophils (%) (Auto) 58.6, Lymphocytes (%) (Auto) 31.0, Monocytes (%) ( Auto) 5.8 H, Eosinophils (%) (Auto) 1.5, Basophils (%) (Auto) 1.3 H, Neutrophils # (Auto) 5.4, Lymphocytes # (Auto) 3.0, Monocytes # (Auto) 0.5, Eosinophils # (Auto) 0.1, Basophils # (Auto) 0.1 08/19/16 07:48 Calcium Level 8.5 Microbiology Microbiology 08/19/16 Urine Culture, Received Pending GME ATTESTATION GME ATTESTATION My preceptor for this patient encounter was physically present in the building during the encounter and was fully available. As needed, all aspects of the patient interview, examination, medical decision making process, and medical care plan development were reviewed and approved by the preceptor. Preceptor is aware and concurs with the plan as stated in the body of this note and will attest to such by his/her cosignature. DORITA BENZ DO Aug 19, 2016 10:33
[2016-08-20] VITALS (26 sets, daily range): BP systolic 119–135; BP diastolic 65–87; O2SAT 91–99
[2016-08-20] MEDS: IBUPROFEN 400 MG TAB PO PRN ×2 (00:02→15:48)
[2016-08-20] MEDS: NS 1,000 ML IV SCH (03:26)
[2016-08-20 06:43] LABS: MEAN CORPUSCULAR HEMOGLOBIN 31.3 pg (27.0-33.0); MEAN CORPUSCULAR HGB CONC 33.2 g/dl (32.0-36.5); MEAN CORPUSCULAR VOLUME 94.1 fl (80.0-96.0); RED CELL DISTRIBUTION WIDTH 13.3 % (11.5-14.5); WHITE BLOOD COUNT 4.9 K/mm3 (4.0-10.0)
[2016-08-20 06:54] LABS: ANION GAP 8 MEQ/L (8-16); BLOOD UREA NITROGEN 11 MG/DL (7-18); CALCIUM LEVEL 8.2 MG/DL (8.5-10.1); CARBON DIOXIDE LEVEL 22 MEQ/L (21-32); CHLORIDE LEVEL 115 MEQ/L (98-107); GLOMERULAR FILTRATION RATE > 60.0 (>60); GLUCOSE, FASTING 89 MG/DL (70-105); MAGNESIUM LEVEL 1.9 MG/DL (1.8-2.4); POTASSIUM SERUM 4.2 MEQ/L (3.5-5.1); SODIUM LEVEL 145 MEQ/L (136-145)
[2016-08-20] MEDS ORDERED: ONDANSETRON 4 MG TAB (S0181) PO PRN (09:15)
[2016-08-20] MEDS: NICOTINE 21MG/24HR 1 EA TRANSDERMAL TD SCH (10:01)
[2016-08-20] MEDS: ENOXAPARIN 40 MG/0.4 ML SYRINGE (J1650) SC SCH (10:02)
[2016-08-20 14:03] LABS: HIV SCRN NEGATIVE (NEGATIVE)
[2016-08-20 14:04] LABS: CONTROL LINE INT CTR LINE PRESENT; HIV SCRN1 NEGATIVE (NEGATIVE)
--- NOTE | 2016-08-20 14:59 | IPNPDOC ---
Assessment/Plan Date Seen The patient was seen on 08/20/16. Problems Problems: (1) Syncope Status: Acute Problem Text: Cardiogenic vs seizures vs drug abuse. Telemetry overnight showed episodes of sinus tachycardia but no arrhythmias. Plan to perform EEG today. (2) History of drug abuse Status: Chronic Problem Text: Pt to be continued on nicotine patches. (3) Migraine Status: Chronic Problem Text: Pt denies having h/a today. Will manage if she is symptomatic. (4) Hepatitis C Status: Chronic Plan / VTE VTE Prophylaxis Ordered?: Yes (enoxiparin) Plan IVF: Continue Diet: Continue Current Subjective Review of Systems CC/HPI The patient is a 31-year-old female admitted with a reason for visit of Syncope. Events since last encounter Pt is a 31 year old female with a history of polysubstance abuse and long QT admitted for syncope. Pt was seen at bedside today and was pleasant. She reported no events overnight. Pt reports feeling less weak than yesterday and does not have issues walking around her room. Pt reports lower back pain is improved today. Pt denies excessive fatigue, fevers, chills, light headedness, palpitations, headaches, abdominal pain, or nausea and vomiting. Constitutional: Denies: Chills, Fever, Weakness Eyes: Denies: Vision change ENT: Denies: Head Aches Pulmonary: Denies: Dyspnea Cardiovascular: Denies: Chest Pain, Lt Headedness, Palpitations Gastrointestinal: Denies: Abdominal Pain, Nausea, Vomiting Psych: Reports: Mood Normal Objective Physical Examination General Exam: Positive: Alert, Cooperative, No Acute Distress Eye Exam: Positive: Conjunctiva & lids normal, EOMI ENT Exam: Positive: Other ENT (Left orbital ecchymosis ) Chest Exam: Positive: Clear to auscultation, Normal air movement, Negative: Diminished, Rales, Rhonchi, Wheezing Heart Exam: Positive: Normal S1, Normal S2, Regular Rhythm, Tachycardic, Negative: Gallops, Murmurs, Rubs Abdomen Exam: Positive: Normal bowel sounds, Soft, Negative: Tenderness Extremity Exam: Positive: Normal pulses Skin Exam: Positive: Nl turgor and temperature Psych Exam: Positive: Mental status NL, Oriented x 3 Vital Signs/I&O Vital Signs Date Time Temp Pulse Resp B/P Pulse Ox O2 Delivery O2 Flow Rate FiO2 08/20/16 06:00 97 Room Air 08/20/16 04:00 97.1 72 18 119/65 I&O- Last 24 Hours up to 6 AM 08/20/16 06:00 Intake Total 4270 ml Output Total 1100 ml Balance 3170 ml Laboratory Data Labs 24H Laboratory Tests 2 08/20/16 06:11: Anion Gap 8, Blood Urea Nitrogen 11, Creatinine 0.70, Sodium Level 145, Potassium Level 4.2, Chloride Level 115H, Carbon Dioxide Level 22, Calcium Level 8.2L, Glomerular Filtration Rate > 60.0, Magnesium Level 1.9 CBC/BMP Laboratory Tests 08/20/16 06:11 Calcium Level 8.2 L, Red Blood Count 3.38 L, Mean Corpuscular Volume 94.1, Mean Corpuscular Hemoglobin 31.3, Mean Corpuscular Hemoglobin Concent 33.2, Red Cell Distribution Width 13.3 Microbiology Microbiology 08/19/16 Urine Culture - Final, Complete DORITA BENZ DO Aug 20, 2016 08:50
[2016-08-21] VITALS (13 sets, daily range): BP systolic 133–141; BP diastolic 87–88; O2SAT 92–96
[2016-08-21 05:28] LABS: MEAN CORPUSCULAR HEMOGLOBIN 31.4 pg (27.0-33.0); MEAN CORPUSCULAR HGB CONC 33.5 g/dl (32.0-36.5); MEAN CORPUSCULAR VOLUME 93.8 fl (80.0-96.0); RED CELL DISTRIBUTION WIDTH 13.2 % (11.5-14.5); WHITE BLOOD COUNT 5.8 K/mm3 (4.0-10.0)
[2016-08-21 05:39] LABS: ANION GAP 9 MEQ/L (8-16); BLOOD UREA NITROGEN 7 MG/DL (7-18); CALCIUM LEVEL 8.2 MG/DL (8.5-10.1); CARBON DIOXIDE LEVEL 23 MEQ/L (21-32); CHLORIDE LEVEL 108 MEQ/L (98-107); CREATININE FOR GFR 0.64 MG/DL (0.55-1.02); GLOMERULAR FILTRATION RATE > 60.0 (>60); GLUCOSE, FASTING 87 MG/DL (70-105); MAGNESIUM LEVEL 1.5 MG/DL (1.8-2.4); POTASSIUM SERUM 3.8 MEQ/L (3.5-5.1); SODIUM LEVEL 140 MEQ/L (136-145)
[2016-08-21] MEDS ORDERED: MAGNESIUM OXIDE 400 MG TAB (MAG-OX) PO ONE (08:00)
[2016-08-21] MEDS: ENOXAPARIN 40 MG/0.4 ML SYRINGE (J1650) SC SCH (08:51)
[2016-08-21] MEDS: NICOTINE 21MG/24HR 1 EA TRANSDERMAL TD SCH (08:52)
[2016-08-21] MEDS ORDERED: TOPIRAMATE (TopAMAX) 25 MG TAB PO SCH (09:00)
[2016-08-21] MEDS ORDERED: GABAPENTIN 300 MG CAP PO SCH (09:00)
[2016-08-21] MEDS ORDERED: busPIRone 5 MG TAB PO SCH (09:00)
[2016-08-21] MEDS ORDERED: SERTRALINE 100 MG TAB PO SCH (09:00)
--- NOTE | 2016-08-21 09:38 | EEG ---
DATE OF ELECTROENCEPHALOGRAM (EEG): 08/20/2016 REFERRING PHYSICIAN: Laurie Miller MD DIAGNOSIS: Loss of consciousness. EEG NO. [id number]. CLINICAL HISTORY: The patient is a 31-year-old woman with history of polysubstance abuse who has gone through rehabilitation. She had an episode of loss of consciousness. This EEG was done to rule out epileptic potential. The patient denied any drug abuse, but her urine toxicology screen was positive in the emergency department, according to notes. She is currently on Lovenox, nicotine patch, ibuprofen etc. TECHNICAL DESCRIPTION: This digital EEG was recorded by 21 scalp, ear, and two electrocardiogram (EKG) electrodes and was reviewed in bipolar and referential montages following reformatting in 10-20 International Electrode Placement System. INTERPRETATION: The patient was noted to be in awake and drowsy states during this EEG. Resting awake background consisted of 9 Hz alpha activity measuring 15-40 microvolts in amplitude, which was reactive to eye opening. Attenuation of posterior dominant rhythm was seen during transition into drowsiness. Stage I and II sleep were reviewed and were symmetric bilaterally. Hyperventilation could not be performed. Photic stimulation remained unremarkable. EKG revealed normal sinus rhythm. No focal, lateralizing, or epileptiform abnormalities were seen. No clinical or electrographic seizures were recorded. CONCLUSION: This EEG in awake, drowsy states, stage I and II sleep is within normal limits.
--- NOTE | 2016-08-21 10:37 | DS.PDOC ---
Discharge Summary General Date of Admission Aug 19, 2016 at 06:30 Date of Discharge Aug 21, 2016 Discharge Summary PRIMARY CARE PHYSICIAN: Dr. June BARON ATTENDING AT TIME OF DISCHARGE: Dr. Laurie Miller DISCHARGE DIAGNOS(E)S: 1. Syncopal episode 2. History of prolonged QT 3. History of Polysubstance abuse 4. History of hepatitis C 5. Anxiety and depression 6. Posttraumatic stress disorder 7. Tobacco use HPI & HOSPITAL COURSE: Ms. Galindo was recently discharged from a 28 day rehabilitation program for apparent Adderall abuse. Shortly after discharge she had been sitting outside with a friend smoking a cigarette when she unsuspectingly had a syncopal episode , for which she was brought to the emergency department by her friend. She was awake and conversant by the time she was seen and evaluated in the ED. With her history of prolonged QT, we were naturally worried about cardiac issues, therefore she was put in a monitored bed, but she had no events on telemetry during her hospitalization. Although her urine toxicology screen in the ED was positive for barbiturates, tricyclic antidepressants, and amphetamines, she did not show any signs or evidence of withdrawal symptoms during her stay. Under the suspicion that this may have been a seizure an EEG was performed, but did not demonstrate any seizure-like activity and was found to be within normal limits. Although no etiology for her syncopal episode has been elucidated, she has not had any additional episodes, nor has she exhibited any symptoms of lightheadedness, or vertigo either. As she has been asymptomatic her entire stay, and she is been ruled out for dangerous etiologies, she appears to be stable for discharge at this time. PHYSICAL EXAMINATION ON DISCHARGE: VITAL SIGNS: Temperature 96.2, pulse 90, respiratory rate 18, blood pressure 141 /88, pulse oximetry 95% on room air GENERAL: Awake, alert, oriented 3. She is in no apparent distress. CARDIOVASCULAR EXAMINATION: Regular rate and rhythm, with no rubs, gallops, or murmur. RESPIRATORY EXAMINATION: Clear to auscultation bilaterally with no wheezes, rales, or rhonchi. ABDOMINAL EXAMINATION: Soft, nontender, nondistended. Bowel sounds present. EXTREMITIES: No clubbing or edema noted. 2+ pulses in the radial bilaterally. DISPOSITION: Home DISCHARGE INSTRUCTIONS: Follow-up with primary care provider Dr. Watkins within 7-10 days. Diet as tolerated. Activity as tolerated. If symptoms return, or if you experience worsening of your symptoms, please call your doctor or return to the emergency department. My preceptor for this patient encounter was physically present in the building during the encounter and was fully available. As needed, all aspects of the patient interview, examination, medical decision making process, and medical care plan development were reviewed and approved by the preceptor. Preceptor is aware and concurs with the plan as stated in the body of this note and will attest to such by his/her cosignature. Laboratory Data Labs 24H Laboratory Tests 2 08/21/16 04:56: Anion Gap 9, Blood Urea Nitrogen 7, Creatinine 0.64, Sodium Level 140, Potassium Level 3.8, Chloride Level 108H, Carbon Dioxide Level 23, Calcium Level 8.2L, Glomerular Filtration Rate > 60.0, Magnesium Level 1.5L CBC/BMP Laboratory Tests 08/21/16 04:56 Calcium Level 8.2 L, Red Blood Count 3.79 L, Mean Corpuscular Volume 93.8, Mean Corpuscular Hemoglobin 31.4, Mean Corpuscular Hemoglobin Concent 33.5, Red Cell Distribution Width 13.2 Microbiology Microbiology 08/19/16 Urine Culture - Final, Complete Medications Scheduled Buprenorphine HCl (Buprenorphine HCl) 8 Mg Sub 8 MG SL BID Buspirone HCl (Buspirone HCl) 10 Mg Tab 15 MG PO BID Gabapentin (Gabapentin) 300 Mg Cap 300 MG PO TID Prazosin Hcl (Prazosin HCl) 1 Mg Cap 1 MG PO QHS Quetiapine Fumerate (Quetiapine Fumarate) 50 Mg Tab 50 MG PO QHS Sertraline Hcl (Zoloft) 100 Mg Tab 100 MG PO DAILY Topiramate (Topiramate) 50 Mg Tab 50 MG PO BID Allergies Coded Allergies: No Known Allergies (Verified , 08/24/06) DORITA BENZ DO Aug 21, 2016 10:37
--- NOTE | 2016-08-21 10:45 | EDDOCDS ---
Physician Documentation [facility] Name: Cely Galindo Age: 31 yrs Sex: Female : 1985 Arrival Date: 08/19/2016 Time: 00:44 Bed 2 Private MD: Disposition: 08/19/16 04:42 Hospitalization ordered by Sarthak Preston for Observation. Preliminary diagnosis are Epileptic seizures related to external causes, not intractable, without status epilepticus, Underdosing of barbiturates - abuse with withdrawl. - Bed requested for PCU. - Status is Observation. kc3 - Condition is Stable. - Problem is an acute exacerbation. - Symptoms have improved. Historical: - Allergies: no known allergies; - Home Meds: 1. gabapentin 600 mg Oral tab 1 tab 3 times per day 2. Risperdal 1 mg Oral tab bedtime 3. olanzapine 10 mg oral tab 1 tab twice a day 4. topamate 25 mg daily 5. subutex 8mg twice a day 6. Seroquel 50 mg Oral tab 1 tab daily - PMHx: PTSD; Schizophrenia; - PSHx: ; umbilical hernia x 2; - Social history: Smoking status: Patient uses tobacco products, heavy tobacco smoker. No barriers to communication noted, The patient speaks fluent Slovak, Speaks appropriately for age. - Family history: Not pertinent. - : The pt / caregiver states he / she is not on anticoagulants. Home medication list is obtained from the patient. - Exposure Risk Screening:: None identified. 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 1 in. (154.94 cm) (R); Pain 0/10; 01:05 BP 105 / 59 (auto/); nn1 01:05 Pulse 121 MON; Pulse Ox 99% ; nn1 02:42 Pulse 126 MON; Pulse Ox 99% ; nn1 02:42 BP 105 / 58 (auto/); nn1 02:44 BP 130 / 67 (auto/); nn1 02:45 Pulse 125 MON; Pulse Ox 98% ; nn1 03:01 BP 114 / 63 (auto/); nn1 03:01 Pulse 119 MON; Pulse Ox 94% ; nn1 03:15 Pulse 106 MON; Pulse Ox 94% ; nn1 03:16 BP 102 / 55 (auto/); nn1 03:31 BP 95 / 53 (auto/); nn1 03:31 Pulse 105 MON; Pulse Ox 94% ; nn1 03:46 BP 88 / 54 (auto/); nn1 03:46 Pulse 103 MON; Pulse Ox 95% ; nn1 04:01 BP 93 / 55 (auto/); nn1 04:01 Pulse 102 MON; Pulse Ox 96% ; nn1 04:16 BP 102 / 71 (auto/); nn1 04:17 Pulse 108 MON; Pulse Ox 99% ; nn1 04:31 BP 96 / 66 (auto/); nn1 04:31 Pulse 92 MON; Pulse Ox 98% ; nn1 05:01 BP 112 / 60 (auto/); nn1 05:01 Pulse 91 MON; nn1 05:16 BP 114 / 59 (auto/); nn1 05:16 Pulse 93 MON; nn1 05:31 BP 117 / 62 (auto/); nn1 05:31 Pulse 94 MON; Pulse Ox 99% ; nn1 05:46 BP 93 / 54 (auto/); nn1 05:46 Pulse 83 MON; Pulse Ox 97% ; nn1 06:01 BP 107 / 64 (auto/); nn1 06:01 Pulse 81 MON; Pulse Ox 97% ; nn1 06:16 BP 112 / 67 (auto/); nn1 06:16 Pulse 93 MON; Pulse Ox 96% ; nn1 06:19 Resp 20; nn1 06:31 BP 94 / 48 (auto/); nn1 06:31 Pulse 88 MON; Pulse Ox 97% ; nn1 06:31 Resp 20; Temp 99.0(TE); nn1 06:46 BP 94 / 54 (auto/); jjr 06:46 Pulse 90 MON; Pulse Ox 97% ; jjr 07:01 BP 98 / 55 (auto/); jjr 07:01 Pulse 95 MON; Resp 18; Pulse Ox 97% on R/A; jjr 09:41 BP 94 / 51; Pulse 93; Resp 18; Temp 98.9(TE); Pulse Ox 97% on R/A; Pain 0/10; rn1 00:54 Body Mass Index 24.56 (58.97 kg, 154.94 cm) mdr MDM: 01:05 Oil Expeller Operator/Pulse Ox/q 15 min VS ordered. mm11 01:05 Accucheck ordered. mm11 01:05 IV Saline Lock ordered. mm11 01:05 Rhythm Strip to chart ordered. mm11 01:07 CBC with Diff Ordered. EDMS 01:07 Cardiac Injury Profile Ordered. EDMS 01:07 Drug Eval Toxicology ED Only Ordered. EDMS 01:07 Liver Profile Ordered. EDMS 01:07 MED Profile Ordered. EDMS 01:07 Thyroid Stimulating Hormone Ordered. EDMS 01:07 Troponin Ordered. EDMS 01:07 Urinalysis Ordered. EDMS 01:07 ETOH Ordered. EDMS 01:07 Urine Culture Ordered. EDMS 01:07 Chest, 1 View Ordered. EDMS 01:07 CT Head Without Contrast Ordered. EDMS 01:07 ECG WITH READING ER PHYS+CARDIAG ordered. EDMS 02:30 levETIRAcetam (20mg/kg) 500 mg IVPB at 400 mL/hr once over 15 mins; dilute in 100mL NS mm11 or D5W ordered. 02:31 Lactic Acid (Zabala tube on ice) Ordered. EDMS 02:47 Financial registration complete. pm4 03:33 CBC with Diff Reviewed. mm11 03:33 Drug Eval Toxicology ED Only Reviewed. mm11 03:33 Urinalysis Reviewed. mm11 03:33 CT Head Without Contrast Reviewed. mm11 03:33 Chest, 1 View Reviewed. mm11 04:07 Oxazepam 15 mg PO once ordered. mm11 04:10 [facility] Payment Agreement was scanned into [employer] and attached to record. hs2 04:24 Cardiac Injury Profile Reviewed. mm11 04:24 Liver Profile Reviewed. mm11 04:24 MED Profile Reviewed. mm11 04:24 Thyroid Stimulating Hormone Reviewed. mm11 04:24 Troponin Reviewed. mm11 04:24 ETOH Reviewed. mm11 04:33 Lactic Acid (Zabala tube on ice) Reviewed. mm11 04:36 BED REQUEST+ADM ordered. EDMS 05:23 HCG,Serum Qualitative Ordered. EDMS 05:35 HCG,Serum Qualitative Reviewed. mm11 06:35 Admission / Observation Status ordered. EDMS 06:36 REGULAR DIET ordered. EDMS 06:36 BASIC METABOLIC PROFILE Ordered. EDMS 06:36 MAGNESIUM LEVEL Ordered. EDMS 06:36 LACTIC ACID LEVEL, LACTATE Ordered. EDMS 13:22 T-Sheet-- Draft Copy was scanned into [employer] and attached to record. gb 13:22 ECG/EKG was scanned into [employer] and attached to record. gb Administered Medications: 02:29 CANCELLED (Other Intervention Used): levETIRAcetam (20mg/kg) 1000 mg IVPB at 400 mL/hr mm11 once over 15 mins; dilute in 100mL NS or D5W 02:51 Drug: levETIRAcetam (20mg/kg) 500 mg [levetiracetam 500 mg/5 mL intravenous solution] nn1 Route: IVPB; Rate: 400 mL/hr; Infused Over: 15 mins; Site: right forearm; 04:17 Drug: Oxazepam 15 mg [oxazepam 15 mg capsule (1 caps)] Route: PO; nn1 Signatures: Dispatcher [employer] EDMS Gale Travis, Reg Reg gb Noman Cohen, DO mm11 Rush Pickett RN RN nn1 Fito Epps RN RN Sofia Banegas RN RN kc3 Joya Ansari, Reg Reg hs2 Garth Eid, Reg Reg pm4 The chart was reviewed and I authenticate all verbal orders and agree with the evaluation and treatment provided.Corrections: (The following items were deleted from the chart) 02:29 02:28 levETIRAcetam (20mg/kg) 1000 mg IVPB at 400 mL/hr once over 15 mins; dilute in mm11 100mL NS or D5W ordered. mm11 Attachments: 04:10 [facility] Payment Agreement hs2 13:22 T-Sheet-- Draft Copy gb 13:22 ECG/EKG gb Chart Complete MTDD
--- NOTE | 2016-08-21 10:45 | EDDOCDS ---
Nurse's Notes [facility] Name: Bigg Sims Age: 31 yrs Sex: Female : 1985 Arrival Date: 08/19/2016 Time: 00:44 Bed 2 Private MD: Diagnosis: Epileptic seizures related to external causes, not intractable, without status epilepticus;Underdosing of barbiturates-abuse with withdrawl Presentation: 08/19 00:48 Presenting complaint: EMS states: patients friend reports patient was outside smoking a nn1 cigarette when she fell backwards. Patient unconscious upon EMS arrival. Patient has been slowly waking up since. Patient recently discharged from rehab center. Suicide/Homicide risk assessment- the patient denies having any suicidal and/or homicidal ideations and does not present with any other emotional, behavioral or mental health complaints. Status: Patient is not a services host or dependent. Transition of care: patient was not received from another setting of care. 00:48 Acuity: KRISTYN Level 3 nn1 00:48 Method Of Arrival: Ambulance nn1 00:49 Care prior to arrival: Glucose check. 110. nn1 00:50 Adult Sepsis Screening: Patient has new or worsening altered mentation (1 point). nn1 Patient's respiratory rate is less than 22. Systolic blood pressure is greater than 100. Patient has a qSOFA score of 0- Negative Sepsis Screen. Triage Assessment: 00:53 General: Appears in no apparent distress, comfortable, Behavior is appropriate for age, nn1 cooperative. Pain: Denies pain. HIV screening NA for this visit Offered previously. The patient is triaged at the bedside. See Assessment in Nurses Notes section of ED record. Neurological: Level of Consciousness is awake, obeys commands, Oriented to person, place, time, Transportation Worker are equal bilaterally Speech is normal, Pupils are dilated. Cardiovascular: Rhythm is sinus tachycardia No ectopy. Respiratory: Airway is patent Respiratory effort is even, unlabored, Respiratory pattern is regular, symmetrical. GI: Abdomen is non- distended Bowel sounds present X 4 quads. 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 gabapentin 600 mg Oral tab 1 tab 3 times per day 2. Risperdal 1 mg Oral tab bedtime 3. olanzapine 10 mg oral tab 1 tab twice a day 4. topamate 25 mg daily 5. subutex 8mg twice a day 6. Seroquel 50 mg Oral tab 1 tab daily - PMHx: PTSD; Schizophrenia; - PSHx: ; umbilical hernia x 2; - Social history: Smoking status: Patient uses tobacco products, heavy tobacco smoker. No barriers to communication noted, The patient speaks fluent Romanian, Speaks appropriately for age. - Family history: Not pertinent. - : The pt / caregiver states he / she is not on anticoagulants. Home medication list is obtained from the patient. - Exposure Risk Screening:: None identified. Screenin:48 Screening information is obtained from the patient. Fall risk: At risk due to apparent nn1 cognitive impairment. Assistance ADL's: requires no assistance with activities of daily living. Abuse/DV Screen: The patient / caregiver reports he/she is: not in a situation that causes fear, pain or injury. Nutritional screening: No deficits noted. Advance Directives: There is no active DNR order. home support is adequate. Assessment: 00:54 General: See triage assessment . nn1 01:15 General: Patient intermittently twitching. Appears very drowsy, reports taking her nn1 night medication. Patient obeys commands, speech is appropriate. . Pain: Denies pain. Neurological: Level of Consciousness is obeys commands, Oriented to person, place, time. 02:30 General: Patient began having seizure at 0225. Seizure witnessed by this documenter and nn1 staff. Patient non responsive at this time. No IV access at this time despite multiple attempts. Patient on nonrebreather. . General:. Neurological: Level of Consciousness is unresponsive. Cardiovascular: Rhythm is sinus tachycardia No ectopy. Respiratory: Airway is patent Respiratory effort is even, Respiratory pattern is regular. Derm: Skin is pink, warm & dry. 02:45 General: Patient responsive at this time, IV access established. Patient very nn1 lethargic, oriented x 3. Patient has O2 saturation 98% on RA. . Neurological: Level of Consciousness is lethargic, post ictal, Oriented to person, place, time. Respiratory: Airway is patent Respiratory effort is even, Respiratory pattern is regular. 02:50 General: Keppra infusing per order. . nn1 03:47 General: Appears in no apparent distress, to be sleeping. Behavior is drowsy. nn1 Respiratory: Airway is patent Respiratory effort is even, unlabored, Respiratory pattern is regular. Derm: Skin is pink, warm & dry. 04:29 General: Appears in no apparent distress, to be sleeping. Behavior is drowsy. Derm: nn1 Skin is pink, warm & dry. 05:31 General: Patient asleep, patient continues to be on the monitor. Seizure pads in place. nn1 Resp even/unlabored. . 05:55 General: Patient assisted to bedside commode. Patient reports feeling better, patient nn1 oriented, gait steady. Denies complaints at this time. . Neurological: Level of Consciousness is awake, alert, obeys commands, Oriented to person, place, time. 07:22 General: Appears in no apparent distress, well nourished, well groomed, Behavior is jjr appropriate for age. Pain: Location: left eye and lumbar area. Neurological: Level of Consciousness is awake, alert, obeys commands, Oriented to person, place, time, Moves all extremities. Gait is steady, Speech is normal. Cardiovascular: Rhythm is sinus rhythm. Respiratory: Airway is patent Respiratory effort is even, unlabored, Respiratory pattern is regular. Derm: Skin is pink, warm & dry. 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 08:33 Adult Sepsis Screening: The patient does not have new or worsening altered mentation. jjr Patient's respiratory rate is less than 22. Systolic blood pressure is greater than 100. Patient has a qSOFA score of 0- Negative Sepsis Screen. General: Appears to be sleeping. Cardiovascular: Rhythm is sinus rhythm. 09:42 General: Appears in no apparent distress, comfortable, Behavior is appropriate for age, kc3 cooperative, drowsy. Pain: Location: back and headache. Neurological: Level of Consciousness is awake, obeys commands, Oriented to person, place, time. Cardiovascular: Rhythm is sinus rhythm. Respiratory: Airway is patent Respiratory effort is even, unlabored, Respiratory pattern is regular, symmetrical. Derm: Skin is pink, warm & dry. Musculoskeletal: Circulation, motion, and sensation intact. Vital Signs: 00:51 BP 114 / 72 (auto/); nn1 00:52 Pulse 126 MON; Pulse Ox 98% ; nn1 00:54 BP 114 / 72; Pulse 125; Resp 18; Temp 97.4(TE); Pulse Ox 98% on R/A; Weight 58.97 kg mdr (R); Height 5 ft. 1 in. (154.94 cm) (R); Pain 0/10; 01:05 BP 105 / 59 (auto/); nn1 01:05 Pulse 121 MON; Pulse Ox 99% ; nn1 02:42 Pulse 126 MON; Pulse Ox 99% ; nn1 02:42 BP 105 / 58 (auto/); nn1 02:44 BP 130 / 67 (auto/); nn1 02:45 Pulse 125 MON; Pulse Ox 98% ; nn1 03:01 BP 114 / 63 (auto/); nn1 03:01 Pulse 119 MON; Pulse Ox 94% ; nn1 03:15 Pulse 106 MON; Pulse Ox 94% ; nn1 03:16 BP 102 / 55 (auto/); nn1 03:31 BP 95 / 53 (auto/); nn1 03:31 Pulse 105 MON; Pulse Ox 94% ; nn1 03:46 BP 88 / 54 (auto/); nn1 03:46 Pulse 103 MON; Pulse Ox 95% ; nn1 04:01 BP 93 / 55 (auto/); nn1 04:01 Pulse 102 MON; Pulse Ox 96% ; nn1 04:16 BP 102 / 71 (auto/); nn1 04:17 Pulse 108 MON; Pulse Ox 99% ; nn1 04:31 BP 96 / 66 (auto/); nn1 04:31 Pulse 92 MON; Pulse Ox 98% ; nn1 05:01 BP 112 / 60 (auto/); nn1 05:01 Pulse 91 MON; nn1 05:16 BP 114 / 59 (auto/); nn1 05:16 Pulse 93 MON; nn1 05:31 BP 117 / 62 (auto/); nn1 05:31 Pulse 94 MON; Pulse Ox 99% ; nn1 05:46 BP 93 / 54 (auto/); nn1 05:46 Pulse 83 MON; Pulse Ox 97% ; nn1 06:01 BP 107 / 64 (auto/); nn1 06:01 Pulse 81 MON; Pulse Ox 97% ; nn1 06:16 BP 112 / 67 (auto/); nn1 06:16 Pulse 93 MON; Pulse Ox 96% ; nn1 06:19 Resp 20; nn1 06:31 BP 94 / 48 (auto/); nn1 06:31 Pulse 88 MON; Pulse Ox 97% ; nn1 06:31 Resp 20; Temp 99.0(TE); nn1 06:46 BP 94 / 54 (auto/); jjr 06:46 Pulse 90 MON; Pulse Ox 97% ; jjr 07:01 BP 98 / 55 (auto/); jjr 07:01 Pulse 95 MON; Resp 18; Pulse Ox 97% on R/A; jjr 09:41 BP 94 / 51; Pulse 93; Resp 18; Temp 98.9(TE); Pulse Ox 97% on R/A; Pain 0/10; rn1 00:54 Body Mass Index 24.56 (58.97 kg, 154.94 cm) mdr Vitals: 06:49 Log In Time N/A - ambulance arrival. nn1 ED Course: 00:44 Patient visited by Jose Rafael Coulter PCA. kb5 00:44 Patient moved to Waiting kb5 00:45 Patient moved to 2 kb5 00:49 Triage Initiated nn1 00:55 Patient visited by Lalo Beltran PCA. mdr 00:59 Noman Cohen DO is Attending Physician. mm11 00:59 Patient visited by Noman Cohen DO. mm11 01:04 Patient visited by Noman Cohen DO. mm11 01:16 Missed attempts: 22 gauge X 1 in left hand. nn1 01:36 Patient visited by Lalo Beltran PCA. mdr 01:36 EKG done. (by ED staff). Reviewed by Noman Cohen DO. mdr 02:08 Patient visited by Rush Pickett RN. nn1 02:41 Lactic Acid (Zabala tube on ice) Sent. sls1 02:41 CBC with Diff Sent. sls1 02:41 Cardiac Injury Profile Sent. sls1 02:41 Liver Profile Sent. sls1 02:41 MED Profile Sent. sls1 02:41 Thyroid Stimulating Hormone Sent. sls1 02:42 The patient / caregiver is instructed regarding the plan of care and ED course. Patient sls1 has correct armband on for positive identification. Placed in psych safe attire. 02:42 Troponin Sent. sls1 02:42 Inserted saline lock: 22 gauge in right forearm and blood collected. sls1 02:54 Side rails up X2. Seizure precautions initiated. it applications developer on. Pulse ox on. NIBP sls1 on. 03:02 CT Head Without Contrast Returned. EDMS 03:02 Chest, 1 View Returned. EDMS 03:08 Patient visited by Rush Pickett RN. nn1 03:17 Seizure precautions initiated. it applications developer on. Pulse ox on. NIBP on. nn1 03:48 Patient visited by Rush Pickett RN. nn1 04:07 Patient visited by Noman Cohen DO. mm11 04:10 [facility] Payment Agreement was scanned into [employer] and attached to record. hs2 04:29 Notified attending ED physician of Critical lab value. sls1 04:40 Sarthak Preston MD is Hospitalizing Provider. mm11 07:08 Mey Anderson RN is Primary Nurse. jjr 07:24 Patient visited by Mey Anderson RN. jjr 08:34 Patient visited by Mey Anderson RN. jjr 09:01 EKG-ADULT Returned. EDMS 09:43 No procedures done that require assistance. kc3 13:22 T-Sheet-- Draft Copy was scanned into [employer] and attached to record. gb 13:22 ECG/EKG was scanned into [employer] and attached to record. gb Administered Medications: 02:29 CANCELLED (Other Intervention Used): levETIRAcetam (20mg/kg) 1000 mg IVPB at 400 mL/hr mm11 once over 15 mins; dilute in 100mL NS or D5W 02:51 Drug: levETIRAcetam (20mg/kg) 500 mg [levetiracetam 500 mg/5 mL intravenous solution] nn1 Route: IVPB; Rate: 400 mL/hr; Infused Over: 15 mins; Site: right forearm; 04:17 Drug: Oxazepam 15 mg [oxazepam 15 mg capsule (1 caps)] Route: PO; nn1 Order Results: Lab Order: CBC with Diff; SPEC'M 08/19/16 02:37 Test: WHITE BLOOD COUNT; Value: 9.2; Range: 4.0-10.0; Units: K/mm3; Status: F Test: RED BLOOD COUNT; Value: 4.00; Range: 4.00-5.40; Units: M/mm3; Status: F Test: HEMOGLOBIN; Value: 11.9; Range: 12.0-16.0; Abnormal: Below low normal; Units: g/dl; Status: F Test: HEMATOCRIT; Value: 38.2; Range: 36.0-47.0; Units: %; Status: F Test: MEAN CORPUSCULAR VOLUME; Value: 95.6; Range: 80.0-96.0; Units: fl; Status: F Test: MEAN CORPUSCULAR HEMOGLOBIN; Value: 29.7; Range: 27.0-33.0; Units: pg; Status: F Test: MEAN CORPUSCULAR HGB CONC; Value: 31.0; Range: 32.0-36.5; Abnormal: Below low normal; Units: g/dl; Status: F Test: RED CELL DISTRIBUTION WIDTH; Value: 14.1; Range: 11.5-14.5; Units: %; Status: F Test: PLATELET COUNT, AUTOMATED; Value: 225; Range: 150-450; Units: k/mm3; Status: F Test: NEUTROPHILS %; Value: 58.6; Range: 36.0-66.0; Units: %; Status: F Test: LYMPH %; Value: 31.0; Range: 24.0-44.0; Units: %; Status: F Test: MONO %; Value: 5.8; Range: 0.0-5.0; Abnormal: Above high normal; Units: %; Status: F Test: EOS %; Value: 1.5; Range: 0.0-3.0; Units: %; Status: F Test: BASO %; Value: 1.3; Range: 0.0-1.0; Abnormal: Above high normal; Units: %; Status: F Test: LARGE UNSTAINED CELL %; Value: 1.8; Range: 0.0-4.0; Units: %; Status: F Test: NEUTROPHILS #; Value: 5.4; Range: 1.8-7.7; Units: K/mm3; Status: F Test: LYMPH #; Value: 3.0; Range: 1.5-4.5; Units: K/mm3; Status: F Test: MONO #; Value: 0.5; Range: 0.0-0.8; Units: K/mm3; Status: F Test: EOS #; Value: 0.1; Range: 0.0-0.50; Units: K/mm3; Status: F Test: BASO #; Value: 0.1; Range: 0.0-0.2; Units: K/mm3; Status: F Test: LARGE UNSTAINED CELL #; Value: 0.2; Range: 0.0-0.4; Units: K/mm3; Status: F Lab Order: Cardiac Injury Profile; SPEC'M 08/19/16 02:37 Test: CPK CREATINE PHOSPHOKINASE; Value: 360; Range: 26-192; Abnormal: Above high normal; Units: U/L; Status: F Test: CK-MB VALUE MASS; Value: 6.5; Range: 0.0-3.6; Abnormal: Above high normal; Units: NG/ML; Status: F Test: MB/CK RELATIVE INDEX; Value: 1.80; Range: < OR =4; Status: F Test Note: ; DIAGNOSIS CRITERIA MMB ng/ml Relative Index (RI) NON-AMI < or = 5 N/A ZABALA ZONE > 5 < or = 4 AMI > 5 > 4 Lab Order: Drug Eval Toxicology ED Only; SPEC'M 08/19/16 02:22 Test: AMPHETAMINES LEVEL URINE; Value: POSITIVE; Range: NEGATIVE; Abnormal: Above high normal; Status: F Test: BARBITURATES URINE; Value: POSITIVE; Range: NEGATIVE; Abnormal: Above high normal; Status: F Test: BENZODIAZEPINES URINE; Value: NEGATIVE; Range: NEGATIVE; Status: F Test: CANNABINOIDS URINE; Value: NEGATIVE; Range: NEGATIVE; Status: F Test: COCAINE METABOLITE URINE; Value: NEGATIVE; Range: NEGATIVE; Status: F Test: METHADONE URINE; Value: NEGATIVE; Range: NEGATIVE; Status: F Test: OPIATES URINE; Value: NEGATIVE; Range: NEGATIVE; Status: F Test: TRICYCLIC ANTIDEPRESS URINE; Value: POSITIVE; Range: NEGATIVE; Abnormal: Above high normal; Status: F Test Note: ; ALL PRESUMPTIVE POSITIVE FINDINGS ARE UNCONFIRMED NORMAL VALUES THRESHOLD IN NG/ML AMPHETAMINES 1000 METHAMPHETAMINES 1000 BARBITURATES 300 BENZODIAZEPINES 300 CANNABINOIDS (THC) 50 COCAINE METABOLITE 300 METHADONE 300 OPIATES 300 PHENCYCLIDINE 25 TRICYCLIC ANTIDEPRESSANTS 1000 RESULTS ARE FOR MEDICAL PURPOSES ONLY. ALL URINE SPECIMENS WILL BE SAVED FOR 3 DAYS. IF CONFIRMATION OF A PRESUMPTIVE POSTIVE SCREEN RESULT IS DESIRED, CALL CHEMISTRY ([phone]) AND REQUEST URINE TO BE SENT TO REFERENCE LAB. FOR A LIST OF CLOSELY RELATED COMPOUNDS PLEASE CALL THE LAB. Lab Order: Liver Profile; SPEC'M 08/19/16 02:37 Test: AST/SGOT; Value: 100; Range: 15-37; Abnormal: Above high normal; Units: U/L; Status: F Test: ALT/SGPT; Value: 65; Range: 12-78; Units: U/L; Status: F Test: ALKALINE PHOSPHATASE; Value: 113; Range: 45-117; Units: U/L; Status: F Test: BILIRUBIN,TOTAL; Value: 0.3; Range: 0.2-1.0; Units: MG/DL; Status: F Test: BILIRUBIN,DIRECT; Value: < 0.1; Range: 0.0-0.2; Units: MG/DL; Status: F Test: TOTAL PROTEIN; Value: 8.0; Range: 6.4-8.2; Units: GM/DL; Status: F Test: ALBUMIN; Value: 3.6; Range: 3.2-5.2; Units: GM/DL; Status: F Test: ALBUMIN/GLOBULIN RATIO; Value: 0.82; Range: 1.00-1.93; Abnormal: Below low normal; Status: F Lab Order: MED Profile; SPEC'M 08/19/16 02:37 Test: GLUCOSE, FASTING; Value: 92; Range: 70-105; Units: MG/DL; Status: F Test: BLOOD UREA NITROGEN; Value: 12; Range: 7-18; Units: MG/DL; Status: F Test: CREATININE FOR GFR; Value: 0.99; Range: 0.55-1.02; Units: MG/DL; Status: F Test: SODIUM LEVEL; Range: 136-145; Units: MEQ/L; Status: I Test: POTASSIUM SERUM; Range: 3.5-5.1; Units: MEQ/L; Status: F Test: CHLORIDE LEVEL; Range: 98-107; Units: MEQ/L; Status: I Test: CARBON DIOXIDE LEVEL; Range: 21-32; Units: MEQ/L; Status: I Test: ANION GAP; Range: 8-16; Units: MEQ/L; Status: I Test: CALCIUM LEVEL; Range: 8.5-10.1; Units: MG/DL; Status: I Test Note: ; Testing was performed on a hemolyzed specimen. Suggest recollection of specimen for more accurate test results. Test: GLOMERULAR FILTRATION RATE; Value: > 60.0; Range: >60; Status: F Test: SODIUM LEVEL; Value: 135; Range: 136-145; Abnormal: Below low normal; Units: MEQ/L; Status: F Test: POTASSIUM SERUM; Range: 3.5-5.1; Units: MEQ/L; Status: F Test: CHLORIDE LEVEL; Value: 102; Range: 98-107; Units: MEQ/L; Status: F Test: CARBON DIOXIDE LEVEL; Value: 19; Range: 21-32; Abnormal: Below low normal; Units: MEQ/L; Status: F Test: ANION GAP; Value: 14; Range: 8-16; Units: MEQ/L; Status: F Test: CALCIUM LEVEL; Value: 8.1; Range: 8.5-10.1; Abnormal: Below low normal; Units: MG/DL; Status: F Test Note: ; Units are mL/min/1.73 m2 Chronic Kidney Disease Staging per NKF: Stage I & II GFR >=60 Normal to Mildly Decreased Stage III GFR 30-59 Moderately Decreased Stage IV GFR 15-29 Severely Decreased Stage V GFR <15 Very Little GFR Left ESRD GFR <15 on NEONATAL DOCTOR Lab Order: Thyroid Stimulating Hormone; SPEC'M 08/19/16 02:37 Test: THYROID STIMULATING HORMONE; Value: 3.440; Range: 0.358-3.740; Units: uIU/ML; Status: F Lab Order: Troponin; SPEC'M 08/19/16 02:37 Test: TROPONIN I; Value: < 0.02; Range: < 0.10; Units: NG/ML; Status: F Test Note: ; Troponin I Reference Interval for [employer] LOCI: 99th Percentile= 0.00-0.045 ng/ml Risk Stratification: <= 0.10 ng/ml Decreased Risk for Adverse Clinical Events. 0.10-1.50 ng/ml Increased Risk for Adverse Clinical Events. Evaluation of additional criterion and/or repeat testing in 2-6 hours is suggested to rule out myocardial damage. >= 1.50 ng/ml Indicative of Myocardial Injury. Lab Order: Urinalysis; SPEC'M 08/19/16 02:22 Test: APPEARANCE, URINE; Value: CLEAR; Range: CLEAR; Status: F Test: COLOR, URINE; Value: YELLOW; Range: YELLOW; Status: F Test: PH,URINE; Value: 6.0; Range: 5.0-9.0; Units: UNITS; Status: F Test: SPECIFIC GRAVITY URINE AUTO; Value: 1.019; Range: 1.002-1.035; Status: F Test: PROTEIN, URINE AUTO; Value: NEGATIVE; Range: NEGATIVE; Units: mg/dL; Status: F Test: GLUCOSE, URINE (UA) AUTO; Value: NEGATIVE; Range: NEGATIVE; Units: mg/dL; Status: F Test: KETONE, URINE AUTO; Value: NEGATIVE; Range: NEGATIVE; Units: mg/dL; Status: F Test: UROBILINOGEN, URINE AUTO; Value: 0.2; Range: 0.0-2.0; Units: mg/dL; Status: F Test: BILIRUBIN, URINE AUTO; Value: NEGATIVE; Range: NEGATIVE; Status: F Test: NITRITE, URINE AUTO; Value: NEGATIVE; Range: NEGATIVE; Status: F Test: LEUKOCYTE ESTERASE, URINE AUTO; Value: NEGATIVE; Range: NEGATIVE; Status: F Test: BLOOD, URINE BLOOD; Value: NEGATIVE; Range: NEGATIVE; Status: F Test: WBC, URINE AUTO; Value: 1; Range: 0-3; Units: /HPF; Status: F Test: RBC, URINE AUTO; Value: 1; Range: 0-3; Units: /HPF; Status: F Test: BACTERIA, URINE AUTO; Value: 1+; Range: NEGATIVE; Abnormal: Above high normal; Status: F Test: SQUAMOUS EPITHELIAL CELL UR AU; Value: 2; Range: 0-6; Units: /HPF; Status: F Test: HYALINE CAST, URINE AUTO; Value: 0; Range: 0-1; Units: /LPF; Status: F Lab Order: ETOH; SPEC'M 08/19/16 02:37 Test: ETHYL ALCOHOL (ETHANOL); Value: < 0.003; Range: 0.000-0.010; Units: %; Status: F Lab Order: Lactic Acid (Zabala tube on ice); SPEC'M 08/19/16 02:30 Test: LACTIC ACID LEVEL, LACTATE; Value: 8.8; Range: 0.4-2.0; Abnormal: Above upper panic limits; Units: MMOL/L; Status: F Lab Order: HCG,Serum Qualitative; SPEC'08/19/16 02:37 Test: HCG, SERUM QUALITATIVE; Value: NEGATIVE; Range: NEGATIVE; Status: F Lab Order: BASIC METABOLIC PROFILE; SPEC08/19/16 07:48 Test: GLUCOSE, FASTING; Value: 108; Range: 70-105; Abnormal: Above high normal; Units: MG/DL; Status: F Test: BLOOD UREA NITROGEN; Value: 10; Range: 7-18; Units: MG/DL; Status: F Test: CREATININE FOR GFR; Value: 0.76; Range: 0.55-1.02; Units: MG/DL; Status: F Test: GLOMERULAR FILTRATION RATE; Value: > 60.0; Range: >60; Status: F Test: SODIUM LEVEL; Value: 139; Range: 136-145; Units: MEQ/L; Status: F Test: POTASSIUM SERUM; Value: 4.1; Range: 3.5-5.1; Units: MEQ/L; Status: F Test: CHLORIDE LEVEL; Value: 106; Range: 98-107; Units: MEQ/L; Status: F Test: CARBON DIOXIDE LEVEL; Value: 25; Range: 21-32; Units: MEQ/L; Status: F Test: ANION GAP; Value: 8; Range: 8-16; Units: MEQ/L; Status: F Test: CALCIUM LEVEL; Value: 8.5; Range: 8.5-10.1; Units: MG/DL; Status: F Test Note: ; Units are mL/min/1.73 m2 Chronic Kidney Disease Staging per NKF: Stage I & II GFR >=60 Normal to Mildly Decreased Stage III GFR 30-59 Moderately Decreased Stage IV GFR 15-29 Severely Decreased Stage V GFR <15 Very Little GFR Left ESRD GFR <15 on NEONATAL DOCTOR Lab Order: MAGNESIUM LEVEL; SPEC08/19/16 07:48 Test: MAGNESIUM LEVEL; Value: 1.9; Range: 1.8-2.4; Units: MG/DL; Status: F Lab Order: LACTIC ACID LEVEL, LACTATE; SPEC08/19/16 07:48 Test: LACTIC ACID LEVEL, LACTATE; Value: 1.2; Range: 0.4-2.0; Units: MMOL/L; Status: F Radiology Order: CT Head Without Contrast Test: CT Head Without Contrast REASON FOR EXAMINATION: Syncope; ; HISTORY: Sybncope; COMPARISON: Ct brain 04.13.16; TECHNIQUE:; Multiple thin-section contiguous helically-acquired, axially-displayed computed tomographic images of; the brain were obtained from the posterior fossa continued through the supratentorial; structures, with images reviewed at brain, intermediate, and bone windows.; FINDINGS:; No acute intracranial hemorrhage or evidence of acute transcortical ischemia. No suspicious intra or; extra axial fluid collection, middling shift, or evidence of hydrocephalus.; The orbits and sella demonstrate no suspicious abnormality.; Visualized paranasal sinuses, mastoid air cells, and middle ear cavities are patent.; Osseous structures and extra cranial soft tissues demonstrate no abnormalities.; IMPRESSION:; No acute intracranial abnormality.; Thank you for your kind referral of this patient.; ; Radiology Order: Chest, 1 View Test: Chest, 1 View REASON FOR EXAMINATION: Syncope; Clinical: Syncope .; ; Comparison: 11/22/2011 .; ; Findings:; The mediastinum and cardiac silhouette are stable and within normal limits for; portable technique. The lung francis are clear without acute consolidation,; effusion, or pneumothorax. 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 mm11 09:42 Discharge Assessment: patient administered narcotics - no. The following High Risk kc3 Discharge criteria are identified: None. Admitted to PCU accompanied by nurse, via stretcher, on monitor, with chart. Condition: stable. CT Study completed. Property :Personal belongings accompany Pt. 09:44 Patient left the ED. kc3 Signatures: Dispatcher [employer] EDMS Gale Travis, Reg Reg gb Jose Rafael Coulter, RECORD PRESS OPERATOR RECORD PRESS OPERATOR kb5 Noman Cohen, DO mm11 Mey Anderson, RN RN Azra Edgar RN RN sls1 Kwaku Collins rn1 Rush PickettRN RN nn1 Lalo Beltran, RECORD PRESS OPERATOR RECORD PRESS OPERATOR Sofia FloresRN RN kc3 Joya Ansari, Reg Reg hs2 Chart Complete [facility]
--- NOTE | 2016-08-21 10:45 | EDDOCDS ---
Physician Documentation [facility] Name: Cely Galindo Age: 31 yrs Sex: Female : 1985 Arrival Date: 08/19/2016 Time: 00:44 Bed 2 Private MD: Disposition: 08/19/16 04:42 Hospitalization ordered by Sarthak Preston for Observation. Preliminary diagnosis are Epileptic seizures related to external causes, not intractable, without status epilepticus, Underdosing of barbiturates - abuse with withdrawl. - Bed requested for PCU. - Status is Observation. kc3 - Condition is Stable. - Problem is an acute exacerbation. - Symptoms have improved. Historical: - Allergies: no known allergies; - Home Meds: 1. gabapentin 600 mg Oral tab 1 tab 3 times per day 2. Risperdal 1 mg Oral tab bedtime 3. olanzapine 10 mg oral tab 1 tab twice a day 4. topamate 25 mg daily 5. subutex 8mg twice a day 6. Seroquel 50 mg Oral tab 1 tab daily - PMHx: PTSD; Schizophrenia; - PSHx: ; umbilical hernia x 2; - Social history: Smoking status: Patient uses tobacco products, heavy tobacco smoker. No barriers to communication noted, The patient speaks fluent [place], Speaks appropriately for age. - Family history: Not pertinent. - : The pt / caregiver states he / she is not on anticoagulants. Home medication list is obtained from the patient. - Exposure Risk Screening:: None identified. 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 1 in. (154.94 cm) (R); Pain 0/10; 01:05 BP 105 / 59 (auto/); nn1 01:05 Pulse 121 MON; Pulse Ox 99% ; nn1 02:42 Pulse 126 MON; Pulse Ox 99% ; nn1 02:42 BP 105 / 58 (auto/); nn1 02:44 BP 130 / 67 (auto/); nn1 02:45 Pulse 125 MON; Pulse Ox 98% ; nn1 03:01 BP 114 / 63 (auto/); nn1 03:01 Pulse 119 MON; Pulse Ox 94% ; nn1 03:15 Pulse 106 MON; Pulse Ox 94% ; nn1 03:16 BP 102 / 55 (auto/); nn1 03:31 BP 95 / 53 (auto/); nn1 03:31 Pulse 105 MON; Pulse Ox 94% ; nn1 03:46 BP 88 / 54 (auto/); nn1 03:46 Pulse 103 MON; Pulse Ox 95% ; nn1 04:01 BP 93 / 55 (auto/); nn1 04:01 Pulse 102 MON; Pulse Ox 96% ; nn1 04:16 BP 102 / 71 (auto/); nn1 04:17 Pulse 108 MON; Pulse Ox 99% ; nn1 04:31 BP 96 / 66 (auto/); nn1 04:31 Pulse 92 MON; Pulse Ox 98% ; nn1 05:01 BP 112 / 60 (auto/); nn1 05:01 Pulse 91 MON; nn1 05:16 BP 114 / 59 (auto/); nn1 05:16 Pulse 93 MON; nn1 05:31 BP 117 / 62 (auto/); nn1 05:31 Pulse 94 MON; Pulse Ox 99% ; nn1 05:46 BP 93 / 54 (auto/); nn1 05:46 Pulse 83 MON; Pulse Ox 97% ; nn1 06:01 BP 107 / 64 (auto/); nn1 06:01 Pulse 81 MON; Pulse Ox 97% ; nn1 06:16 BP 112 / 67 (auto/); nn1 06:16 Pulse 93 MON; Pulse Ox 96% ; nn1 06:19 Resp 20; nn1 06:31 BP 94 / 48 (auto/); nn1 06:31 Pulse 88 MON; Pulse Ox 97% ; nn1 06:31 Resp 20; Temp 99.0(TE); nn1 06:46 BP 94 / 54 (auto/); jjr 06:46 Pulse 90 MON; Pulse Ox 97% ; jjr 07:01 BP 98 / 55 (auto/); jjr 07:01 Pulse 95 MON; Resp 18; Pulse Ox 97% on R/A; jjr 09:41 BP 94 / 51; Pulse 93; Resp 18; Temp 98.9(TE); Pulse Ox 97% on R/A; Pain 0/10; rn1 00:54 Body Mass Index 24.56 (58.97 kg, 154.94 cm) mdr MDM: 01:05 Banking Services Officer/Pulse Ox/q 15 min VS ordered. mm11 01:05 Accucheck ordered. mm11 01:05 IV Saline Lock ordered. mm11 01:05 Rhythm Strip to chart ordered. mm11 01:07 CBC with Diff Ordered. EDMS 01:07 Cardiac Injury Profile Ordered. EDMS 01:07 Drug Eval Toxicology ED Only Ordered. EDMS 01:07 Liver Profile Ordered. EDMS 01:07 MED Profile Ordered. EDMS 01:07 Thyroid Stimulating Hormone Ordered. EDMS 01:07 Troponin Ordered. EDMS 01:07 Urinalysis Ordered. EDMS 01:07 ETOH Ordered. EDMS 01:07 Urine Culture Ordered. EDMS 01:07 Chest, 1 View Ordered. EDMS 01:07 CT Head Without Contrast Ordered. EDMS 01:07 ECG WITH READING ER PHYS+CARDIAG ordered. EDMS 02:30 levETIRAcetam (20mg/kg) 500 mg IVPB at 400 mL/hr once over 15 mins; dilute in 100mL NS mm11 or D5W ordered. 02:31 Lactic Acid (Zabala tube on ice) Ordered. EDMS 02:47 Financial registration complete. pm4 03:33 CBC with Diff Reviewed. mm11 03:33 Drug Eval Toxicology ED Only Reviewed. mm11 03:33 Urinalysis Reviewed. mm11 03:33 CT Head Without Contrast Reviewed. mm11 03:33 Chest, 1 View Reviewed. mm11 04:07 Oxazepam 15 mg PO once ordered. mm11 04:10 [facility] Payment Agreement was scanned into [employer] and attached to record. hs2 04:24 Cardiac Injury Profile Reviewed. mm11 04:24 Liver Profile Reviewed. mm11 04:24 MED Profile Reviewed. mm11 04:24 Thyroid Stimulating Hormone Reviewed. mm11 04:24 Troponin Reviewed. mm11 04:24 ETOH Reviewed. mm11 04:33 Lactic Acid (Zabala tube on ice) Reviewed. mm11 04:36 BED REQUEST+ADM ordered. EDMS 05:23 HCG,Serum Qualitative Ordered. EDMS 05:35 HCG,Serum Qualitative Reviewed. mm11 06:35 Admission / Observation Status ordered. EDMS 06:36 REGULAR DIET ordered. EDMS 06:36 BASIC METABOLIC PROFILE Ordered. EDMS 06:36 MAGNESIUM LEVEL Ordered. EDMS 06:36 LACTIC ACID LEVEL, LACTATE Ordered. EDMS 13:22 T-Sheet-- Draft Copy was scanned into [employer] and attached to record. gb 13:22 ECG/EKG was scanned into [employer] and attached to record. gb Administered Medications: 02:29 CANCELLED (Other Intervention Used): levETIRAcetam (20mg/kg) 1000 mg IVPB at 400 mL/hr mm11 once over 15 mins; dilute in 100mL NS or D5W 02:51 Drug: levETIRAcetam (20mg/kg) 500 mg [levetiracetam 500 mg/5 mL intravenous solution] nn1 Route: IVPB; Rate: 400 mL/hr; Infused Over: 15 mins; Site: right forearm; 04:17 Drug: Oxazepam 15 mg [oxazepam 15 mg capsule (1 caps)] Route: PO; nn1 Signatures: Dispatcher [employer] EDMS Gale Travis, Reg Reg gb Noman Cohen, DO mm11 Rush Pickett RN RN nn1 Fito Epps RN RN Sofia Banegas RN RN kc3 Joya Ansari, Reg Reg hs2 Garth Eid, Reg Reg pm4 The chart was reviewed and I authenticate all verbal orders and agree with the evaluation and treatment provided.Corrections: (The following items were deleted from the chart) 02:29 02:28 levETIRAcetam (20mg/kg) 1000 mg IVPB at 400 mL/hr once over 15 mins; dilute in mm11 100mL NS or D5W ordered. mm11 Attachments: 04:10 [facility] Payment Agreement hs2 13:22 T-Sheet-- Draft Copy gb 13:22 ECG/EKG gb Chart Complete MTDD
[2016-08-21] MEDS ORDERED: QUEtiapine FUMARATE 50 MG TAB PO SCH (21:00)
[2016-08-21] MEDS ORDERED: PRAZOSIN 1 MG CAP PO SCH (21:00)
== END 2016-08-21 12:32 | disposition home or self-care (01) | DRG 204 ==
LOC: M ED 00:44 → M ED INP 06:30 → M PCU 09:49
PROVIDERS: ADMIT Internal Medicine; ATTEND Internal Medicine
DX: R55 Syncope and collapse (principal); B19.20 Unspecified viral hepatitis C without hepatic coma; I45.81 Long QT syndrome; F19.10 Other psychoactive substance abuse, uncomplicated; F41.8 Other specified anxiety disorders; F43.10 Post-traumatic stress disorder, unspecified; F17.210 Nicotine dependence, cigarettes, uncomplicated; G43.909 Migraine, unspecified, not intractable, without status migrainosus; F20.9 Schizophrenia, unspecified; M54.5 Low back pain; Z79.899 Other long term (current) drug therapy

== ENCOUNTER 2017-03-31 11:45 | Emergency (ER) | payer BC, MEDICAID, OTHER, SELFPAY ==
[~2017-03-31] VITALS: Ht 154.9 cm; Wt 59.0 kg
[~2017-03-31 11:45] MED LIST changes: +GABA-282 PO; -GABA300C3 PO; +PRAZ1CAP PO; +QUET5TAB PO; -RISP0.5T16 PO; +RISP0.5T21 PO; -RISP1TAB41 PO; +RISP1TAB42 PO; +TOPA1TAB PO; -TOPA25TA10 PO; +TOPI50TA9 PO; +TRAZ50TA11 PO; -TRAZ50TA4 PO
[2017-03-31 11:46] VITALS: BP 119/91
[2017-03-31] MEDS ORDERED: ZYPR10TA PO (12:18)
[2017-03-31] MEDS ORDERED: ZOLO100T PO (12:18)
[2017-03-31] MEDS ORDERED: ZYPR20TA PO (12:18)
[2017-03-31] MEDS ORDERED: BUSP30TA PO (12:18)
== END 2017-03-31 12:36 | disposition home or self-care (01) ==
LOC: M ED 11:45
DX: F41.9 Anxiety disorder, unspecified (principal); F33.9 Major depressive disorder, recurrent, unspecified; F20.9 Schizophrenia, unspecified; F43.10 Post-traumatic stress disorder, unspecified; R11.0 Nausea; R51 Headache; R42 Dizziness and giddiness; B19.20 Unspecified viral hepatitis C without hepatic coma; F17.210 Nicotine dependence, cigarettes, uncomplicated; Z79.899 Other long term (current) drug therapy

== ENCOUNTER → 2017-04-18 | Outpatient (CLI) | payer OTHER ==
[~2017-04-18] MED LIST changes: +BUSP30TA PO; +KEFL500C17 PO; +METH40TA PO; +ZYPR10TA PO; +ZYPR20TA PO
[2017-04-18 11:36] LABS: BASO # 0.1 K/mm3 (0.0-0.2); BASO % 1.1 % (0.0-1.0); EOS # 0.1 K/mm3 (0.0-0.50); EOS % 1.9 % (0.0-3.0); LARGE UNSTAINED CELL # 0.1 K/mm3 (0.0-0.4); LARGE UNSTAINED CELL % 1.4 % (0.0-4.0); LYMPH # 2.1 K/mm3 (1.5-4.5); LYMPH % 31.1 % (24.0-44.0); MEAN CORPUSCULAR HEMOGLOBIN 31.6 pg (27.0-33.0); MEAN CORPUSCULAR HGB CONC 33.5 g/dl (32.0-36.5); MEAN CORPUSCULAR VOLUME 94.4 fl (80.0-96.0); MONO # 0.4 K/mm3 (0.0-0.8); MONO % 6.1 % (0.0-5.0); NEUTROPHILS # 3.8 K/mm3 (1.8-7.7); NEUTROPHILS % 58.5 % (36.0-66.0); PLATELET COUNT, AUTOMATED 173 k/mm3 (150-450); RED CELL DISTRIBUTION WIDTH 12.7 % (11.5-14.5); WHITE BLOOD COUNT 6.5 K/mm3 (4.0-10.0)
[2017-04-18 11:37] LABS: CONTROL LINE UCG INT CTR LINE PRESENT
[2017-04-18 12:13] LABS: ALBUMIN 3.8 GM/DL (3.2-5.2); ALBUMIN/GLOBULIN RATIO 1.03 (1.00-1.93); ALKALINE PHOSPHATASE 83 U/L (45-117); ALT/SGPT 86 U/L (12-78); ANION GAP 7 MEQ/L (8-16); AST/SGOT 86 U/L (15-37); BILIRUBIN,TOTAL 0.3 MG/DL (0.2-1.0); BLOOD UREA NITROGEN 7 MG/DL (7-18); CALCIUM LEVEL 8.7 MG/DL (8.5-10.1); CARBON DIOXIDE LEVEL 25 MEQ/L (21-32); CHLORIDE LEVEL 105 MEQ/L (98-107); CHOLESTEROL LEVEL 179 MG/DL (<200); CREATININE FOR GFR 0.69 MG/DL (0.55-1.02); GLOMERULAR FILTRATION RATE > 60.0 (>60); GLUCOSE, FASTING 94 MG/DL (70-105); POTASSIUM SERUM 4.2 MEQ/L (3.5-5.1); SODIUM LEVEL 137 MEQ/L (136-145); TOTAL PROTEIN 7.5 GM/DL (6.4-8.2); TRIGLYCERIDES LEVEL 219 MG/DL (<150)
--- NOTE | 2017-04-18 21:45 | ECGEPIP ---
Stationary ECG Study [facility] Test Date: 2017-04-18 Pat Name: BIGG SIMS Department: Room: - Gender: F [employer]: : 1985 Requested By: Ally Ayon NPP-BC Order Number: [id number] Reading MD: Tr Marques Measurements Intervals [place] Rate: 62 P: 55 UT: 150 QRS: 28 QRSD: 93 T: 8 QT: 445 QTc: 453 Interpretive Statements Normal sinus rhythm Incomplete right bundle branch block Nonspecific T wave abnormality Compared to prior tracing of 08/19/2016, heart rate is slower Electronically Signed On 04-18-2017 21:45:38 EDT by Tr Marques
== END ==
LOC: M LAB 10:31
PROVIDERS: ATTEND Nurse Practitioner Family
DX: F11.20 Opioid dependence, uncomplicated (principal)

== ENCOUNTER 2017-04-27 11:59 | Emergency (ER) | payer OTHER ==
[~2017-04-27] VITALS: Ht 154.9 cm; Wt 68.2 kg
[~2017-04-27 11:59] MED LIST changes: -KEFL500C17 PO; -METH40TA PO
[2017-04-27] MEDS ORDERED: METH40TA PO (12:16)
[2017-04-27 14:08] LABS: BASO # 0.1 10^3/uL (0.0-0.2); BASO % 0.7 % (0.0-1.0); EOS % 0.6 % (0.0-3.0); IMMATURE GRANULOCYTE % 0.3 % (0-0); LYMPH # 1.8 10^3/uL (1.5-4.5); LYMPH % 26.1 % (24.0-44.0); MEAN CORPUSCULAR HEMOGLOBIN 31.6 pg (27.0-33.0); MEAN CORPUSCULAR HGB CONC 34.1 g/dl (32.0-36.5); MEAN CORPUSCULAR VOLUME 92.6 fl (80.0-96.0); MONO # 0.4 10^3/uL (0.0-0.8); MONO % 5.1 % (0.0-5.0); NEUTROPHILS # 4.6 10^3/uL (1.8-7.7); NEUTROPHILS % 67.2 % (36.0-66.0); PLATELET COUNT, AUTOMATED 214 10^3/uL (150-450); RED CELL DISTRIBUTION WIDTH 13.1 % (11.5-14.5); WHITE BLOOD COUNT 6.9 10^3/uL (4.0-10.0)
--- NOTE | 2017-04-27 14:21 | REP ---
CT Head without contrast HISTORY: Memory difficulty COMPARISON: 08/19/2016 There is no intraparenchymal hemorrhage, acute infarct, mass or midline shift. The ventricular system is normal in appearance. There is no extra cerebral collection. There is no fracture. The visualized sinuses are clear. IMPRESSION: There is no intracranial lesion. Signed by Phillip Stack MD 04/27/2017 02:13 P
[2017-04-27 14:31] LABS: METHADONE URINE POSITIVE (NEGATIVE)
--- NOTE | 2017-04-27 15:02 | REP ---
BILATERAL HAND SERIES: Our views of the bilateral hands performed. There is no evidence of acute fracture, dislocation, or intrinsic bone disease. IMPRESSION: No fracture or dislocation. Signed by Golden Zabala MD 04/27/2017 05:08 P
[2017-04-27 15:17] LABS: ANION GAP 8 MEQ/L (8-16); BLOOD UREA NITROGEN 11 MG/DL (7-18); CALCIUM LEVEL 8.9 MG/DL (8.5-10.1); CARBON DIOXIDE LEVEL 23 MEQ/L (21-32); CHLORIDE LEVEL 107 MEQ/L (98-107); CREATININE FOR GFR 0.49 MG/DL (0.55-1.02); GLOMERULAR FILTRATION RATE > 60.0 (>60); GLUCOSE, FASTING 78 MG/DL (70-105); POTASSIUM SERUM 3.8 MEQ/L (3.5-5.1); SODIUM LEVEL 138 MEQ/L (136-145)
[2017-04-27 16:07] VITALS: BP 121/68
== END 2017-04-27 16:13 | disposition home or self-care (01) ==
LOC: M ED 11:59
DX: R41.3 Other amnesia (principal); Z86.69 Personal history of other diseases of the nervous system and sense organs; I45.81 Long QT syndrome; F41.9 Anxiety disorder, unspecified; F33.9 Major depressive disorder, recurrent, unspecified; F19.10 Other psychoactive substance abuse, uncomplicated; R78.2 Finding of cocaine in blood; R78.4 Finding of other drugs of addictive potential in blood; F17.210 Nicotine dependence, cigarettes, uncomplicated; Z79.899 Other long term (current) drug therapy

== ENCOUNTER 2017-05-03 14:18 | Emergency (ER) | payer OTHER ==
[~2017-05-03] VITALS: Ht 154.9 cm; Wt 63.6 kg
[~2017-05-03 14:18] MED LIST changes: +METH40TA PO
[2017-05-03] MEDS ORDERED: KEFL500C17 PO (17:56)
[2017-05-03 18:10] VITALS: BP 141/91
== END 2017-05-03 18:12 | disposition home or self-care (01) ==
LOC: M ED 14:18
DX: L03.113 Cellulitis of right upper limb (principal); B19.20 Unspecified viral hepatitis C without hepatic coma; F17.210 Nicotine dependence, cigarettes, uncomplicated; F33.9 Major depressive disorder, recurrent, unspecified; F41.9 Anxiety disorder, unspecified; Z87.898 Personal history of other specified conditions

== ENCOUNTER → 2017-05-25 | Outpatient (CLI) | payer MEDICAID ==
[~2017-05-25] MED LIST changes: +KEFL500C17 PO
== END ==
LOC: M OUTALCOH 12:11
PROVIDERS: ATTEND Psychiatry & Neurology Psychiatry
DX: F11.20 Opioid dependence, uncomplicated (principal)

== ENCOUNTER → 2017-09-13 | Outpatient (CLI) | payer OTHER ==
[2017-09-13 10:20] LABS: HEMATOCRIT 34.8 % (36.0-47.0); HEMOGLOBIN 11.9 g/dl (12.0-16.0); MEAN CORPUSCULAR HEMOGLOBIN 31.6 pg (27.0-33.0); MEAN CORPUSCULAR HGB CONC 34.2 g/dl (32.0-36.5); MEAN CORPUSCULAR VOLUME 92.3 fl (80.0-96.0); PLATELET COUNT, AUTOMATED 269 10^3/uL (150-450); RED BLOOD COUNT 3.77 10^6/uL (4.00-5.40); RED CELL DISTRIBUTION WIDTH 12.9 % (11.5-14.5)
[2017-09-13 10:37] LABS: ESTIMATED AVERAGE GLUCOSE 120 MG/DL (60-110); HEMOGLOBIN A1c 5.8 %
[2017-09-13 10:50] LABS: CONTROL LINE HCG INT CTR LINE PRESENT; HCG, SERUM QUALITATIVE NEGATIVE (NEGATIVE)
[2017-09-13 11:06] LABS: ALBUMIN 3.6 GM/DL (3.2-5.2); ALBUMIN/GLOBULIN RATIO 0.92 (1.00-1.93); ALKALINE PHOSPHATASE 123 U/L (45-117); ALT/SGPT 89 U/L (12-78); ANION GAP 9 MEQ/L (8-16); AST/SGOT 85 U/L (7-37); BILIRUBIN,DIRECT < 0.1 MG/DL (0.0-0.2); BILIRUBIN,TOTAL 0.2 MG/DL (0.2-1.0); BLOOD UREA NITROGEN 10 MG/DL (7-18); CALCIUM LEVEL 8.5 MG/DL (8.5-10.1); CARBON DIOXIDE LEVEL 22 MEQ/L (21-32); CHLORIDE LEVEL 108 MEQ/L (98-107); CREATININE FOR GFR 0.71 MG/DL (0.55-1.30); GLOMERULAR FILTRATION RATE > 60.0 (>60); GLUCOSE, FASTING 93 MG/DL (70-100); POTASSIUM SERUM 3.7 MEQ/L (3.5-5.1); SODIUM LEVEL 139 MEQ/L (136-145); TOTAL PROTEIN 7.5 GM/DL (6.4-8.2)
== END ==
LOC: M LAB 09:45
DX: Z79.899 Other long term (current) drug therapy (principal)
CPT/HCPCS: 82248

== ENCOUNTER → 2017-09-28 | Outpatient (REF) | payer BC | LOC: M LAB REF 17:33 | DX: F11.20 Opioid dependence, uncomplicated (principal) | CPT/HCPCS: G0480 ==

== ENCOUNTER → 2017-10-06 | Outpatient (REF) | payer BC | LOC: M LAB REF 18:43 | DX: F11.20 Opioid dependence, uncomplicated (principal) | CPT/HCPCS: G0480 ==

== ENCOUNTER → 2017-10-12 | Outpatient (REF) | payer OTHER, MEDICAID ==
[2017-10-18 14:16] LABS: AMPHETAMINE SCREEN, URINE Negative ng/mL (Cutoff=1000); BARBITURATES SCREEN, URINE Negative ng/mL (Cutoff=200); BENZODIAZEPINES, URINE SCREEN Negative ng/mL (Cutoff=200); CANNABINOID SCREEN, URINE Negative ng/mL (Cutoff=20); COCAINE SCREEN, URINE Negative ng/mL (Cutoff=300); CREATININE, URINE 167.4 mg/dL (20.0-300.0); FENTANYL URINE SCREEN Negative pg/mL (Cutoff=2000); METHADONE, URINE SCREEN Negative ng/mL (Cutoff=300); NALOXONE RESULT Positive (.); OPIATE SCREEN, URINE Negative ng/mL (Cutoff=300); OXYCODONE, SCREEN, URINE Negative ng/mL (Cutoff=100); PCP SCREEN, URINE Negative ng/mL (Cutoff=25); SPECIFIC GRAVITY, URINE 1.025 (.); URINE BUPRENORPHINE Positive (.); URINE BUPRENORPHINE Positive (Cutoff=10); URINE BUPRENORPHINE See Final Results ng/mL (Cutoff=10); URINE BUPRENORPHINE CONFIRM 1116 ng/mL (Cutoff=10); URINE NORBUPRENORPHINE Positive (.); URINE NORBUPRENORPHINE CONFIRM 2220 ng/mL (Cutoff=10); pH, URINE 5.5 (4.5-8.9)
== END ==
LOC: M LAB REF 19:51
DX: F11.20 Opioid dependence, uncomplicated (principal)
CPT/HCPCS: 80362

== ENCOUNTER → 2017-10-18 | Outpatient (REF) | payer OTHER, MEDICAID ==
[2017-10-18 19:24] LABS: BASO # 0.1 10^3/uL (0.0-0.2); BASO % 0.8 % (0.0-1.0); EOS # 0.1 10^3/uL (0.0-0.50); EOS % 0.9 % (0.0-3.0); HEMATOCRIT 46.1 % (36.0-47.0); HEMOGLOBIN 15.8 g/dl (12.0-16.0); IMMATURE GRANULOCYTE % 0.1 % (0-3.0); LYMPH % 23.1 % (24.0-44.0); MEAN CORPUSCULAR HEMOGLOBIN 31.4 pg (27.0-33.0); MEAN CORPUSCULAR HGB CONC 34.3 g/dl (32.0-36.5); MEAN CORPUSCULAR VOLUME 91.7 fl (80.0-96.0); MONO # 0.4 10^3/uL (0.0-0.8); MONO % 4.8 % (0.0-5.0); NEUTROPHILS # 6.2 10^3/uL (1.8-7.7); NEUTROPHILS % 70.3 % (36.0-66.0); PLATELET COUNT, AUTOMATED 290 10^3/uL (150-450); RED BLOOD COUNT 5.03 10^6/uL (4.00-5.40); RED CELL DISTRIBUTION WIDTH 12.1 % (11.5-14.5); WHITE BLOOD COUNT 8.8 10^3/uL (4.0-10.0)
[2017-10-18 19:51] LABS: ALBUMIN 4.4 GM/DL (3.2-5.2); ALBUMIN/GLOBULIN RATIO 0.96 (1.00-1.93); ALKALINE PHOSPHATASE 105 U/L (45-117); ALT/SGPT 124 U/L (12-78); ANION GAP 11 MEQ/L (8-16); AST/SGOT 119 U/L (7-37); BILIRUBIN,TOTAL 0.5 MG/DL (0.2-1.0); BLOOD UREA NITROGEN 15 MG/DL (7-18); CALCIUM LEVEL 9.5 MG/DL (8.5-10.1); CARBON DIOXIDE LEVEL 23 MEQ/L (21-32); CHLORIDE LEVEL 102 MEQ/L (98-107); CREATININE FOR GFR 0.78 MG/DL (0.55-1.30); GLOMERULAR FILTRATION RATE > 60.0 (>60); GLUCOSE, FASTING 103 MG/DL (70-100); IRON (FE) 116 UG/DL (50-170); POTASSIUM SERUM 4.3 MEQ/L (3.5-5.1); SODIUM LEVEL 136 MEQ/L (136-145)
== END ==
LOC: M LAB REF 16:49
DX: F11.20 Opioid dependence, uncomplicated (principal)

== ENCOUNTER → 2017-10-20 | Outpatient (REF) | payer OTHER, MEDICAID | LOC: M LAB REF 16:52 | DX: F11.20 Opioid dependence, uncomplicated (principal) | CPT/HCPCS: 80362 ==

== ENCOUNTER → 2017-10-26 | Outpatient (REF) | payer OTHER, MEDICAID | LOC: M LAB REF 16:50 | DX: F11.20 Opioid dependence, uncomplicated (principal) ==

== ENCOUNTER → 2017-11-02 | Outpatient (REF) | payer OTHER, MEDICAID ==
[2017-11-09 00:07] LABS: AMPHETAMINE SCREEN, URINE Negative ng/mL (Cutoff=1000); BARBITURATES SCREEN, URINE Negative ng/mL (Cutoff=200); BENZODIAZEPINES, URINE SCREEN Negative ng/mL (Cutoff=200); CANNABINOID SCREEN, URINE Negative ng/mL (Cutoff=20); COCAINE SCREEN, URINE Negative ng/mL (Cutoff=300); CREATININE, URINE 48.4 mg/dL (20.0-300.0); FENTANYL URINE SCREEN Negative pg/mL (Cutoff=2000); METHADONE, URINE SCREEN Negative ng/mL (Cutoff=300); NALOXONE RESULT Positive (.); OPIATE SCREEN, URINE Negative ng/mL (Cutoff=300); OXYCODONE, SCREEN, URINE Negative ng/mL (Cutoff=100); PCP SCREEN, URINE Negative ng/mL (Cutoff=25); SPECIFIC GRAVITY, URINE 1.007 (.); pH, URINE 7.1 (4.5-8.9)
== END ==
LOC: M LAB REF 16:24
DX: F11.20 Opioid dependence, uncomplicated (principal)
CPT/HCPCS: 80362

== ENCOUNTER → 2017-11-09 | Outpatient (REF) | payer OTHER, MEDICAID ==
[2017-11-17 00:07] LABS: NALOXONE RESULT Positive (.)
== END ==
LOC: M LAB REF 17:38
DX: F11.20 Opioid dependence, uncomplicated (principal)
CPT/HCPCS: 80362

== ENCOUNTER → 2017-11-11 | Outpatient (REF) | payer OTHER, MEDICAID | LOC: M LAB REF 16:13 | DX: F11.20 Opioid dependence, uncomplicated (principal) ==

== ENCOUNTER → 2017-11-16 | Outpatient (REF) | payer OTHER, MEDICAID | LOC: M LAB REF 16:57 | DX: F11.20 Opioid dependence, uncomplicated (principal) ==

== ENCOUNTER → 2017-11-30 | Outpatient (REF) | payer OTHER, MEDICAID ==
[2017-12-06 14:19] LABS: AMPHETAMINE SCREEN, URINE Negative ng/mL (Cutoff=1000); BARBITURATES SCREEN, URINE Negative ng/mL (Cutoff=200); BENZODIAZEPINES, URINE SCREEN Negative ng/mL (Cutoff=200); CANNABINOID SCREEN, URINE Negative ng/mL (Cutoff=20); COCAINE SCREEN, URINE Negative ng/mL (Cutoff=300); CREATININE, URINE 288.8 mg/dL (20.0-300.0); FENTANYL URINE SCREEN See Final Results pg/mL (Cutoff=2000); FENTANYL/NORFENTANYL Negative (Cutoff=2000); METHADONE, URINE SCREEN Negative ng/mL (Cutoff=300); NALOXONE RESULT Positive (.); OPIATE SCREEN, URINE Negative ng/mL (Cutoff=300); OXYCODONE, SCREEN, URINE Negative ng/mL (Cutoff=100); PCP SCREEN, URINE Negative ng/mL (Cutoff=25); SPECIFIC GRAVITY, URINE 1.018 (.); URINE BUPRENORPHINE Positive (.); URINE BUPRENORPHINE Positive (Cutoff=10); URINE BUPRENORPHINE See Final Results ng/mL (Cutoff=10); URINE BUPRENORPHINE CONFIRM >1500 ng/mL (Cutoff=10); URINE NORBUPRENORPHINE Positive (.); URINE NORBUPRENORPHINE CONFIRM >1500 ng/mL (Cutoff=10); pH, URINE 7.2 (4.5-8.9)
== END ==
LOC: M LAB REF 09:32
DX: F11.20 Opioid dependence, uncomplicated (principal)

== ENCOUNTER → 2017-12-14 | Outpatient (REF) | payer OTHER, MEDICAID ==
[2017-12-22 10:14] LABS: AMPHETAMINE SCREEN, URINE Negative ng/mL (Cutoff=1000); BARBITURATES SCREEN, URINE Negative ng/mL (Cutoff=200); BENZODIAZEPINES, URINE SCREEN Negative ng/mL (Cutoff=200); CANNABINOID SCREEN, URINE Negative ng/mL (Cutoff=20); COCAINE SCREEN, URINE Negative ng/mL (Cutoff=300); CREATININE, URINE 131.1 mg/dL (20.0-300.0); FENTANYL URINE SCREEN See Final Results pg/mL (Cutoff=2000); FENTANYL/NORFENTANYL Negative (Cutoff=2000); METHADONE, URINE SCREEN Negative ng/mL (Cutoff=300); NALOXONE RESULT Positive (.); OPIATE SCREEN, URINE Negative ng/mL (Cutoff=300); OXYCODONE, SCREEN, URINE Negative ng/mL (Cutoff=100); PCP SCREEN, URINE Negative ng/mL (Cutoff=25); SPECIFIC GRAVITY, URINE 1.022 (.); URINE BUPRENORPHINE Positive (.); URINE BUPRENORPHINE Positive (Cutoff=10); URINE BUPRENORPHINE See Final Results ng/mL (Cutoff=10); URINE BUPRENORPHINE CONFIRM 960 ng/mL (Cutoff=10); URINE NORBUPRENORPHINE Positive (.); URINE NORBUPRENORPHINE CONFIRM >1000 ng/mL (Cutoff=10); pH, URINE 5.4 (4.5-8.9)
== END ==
LOC: M LAB REF 17:16
DX: F11.20 Opioid dependence, uncomplicated (principal)
CPT/HCPCS: 80362

== ENCOUNTER 2017-12-19 15:55 | Emergency (ER) | payer OTHER, MEDICAID ==
[2017-12-19] MEDS: NS 1,000 ML IV (16:30)
[2017-12-19 18:29] LABS: BASO % 0.6 % (0.0-1.0); EOS # 0.1 10^3/uL (0.0-0.50); EOS % 1.3 % (0.0-3.0); HEMATOCRIT 39.5 % (36.0-47.0); HEMOGLOBIN 13.5 g/dl (12.0-15.5); IMMATURE GRANULOCYTE % 0.3 % (0-3.0); LYMPH # 2.5 10^3/uL (1.5-4.5); LYMPH % 40.1 % (24.0-44.0); MEAN CORPUSCULAR HGB CONC 34.2 g/dl (32.0-36.5); MEAN CORPUSCULAR VOLUME 90.8 fl (80.0-96.0); MONO # 0.4 10^3/uL (0.0-0.8); MONO % 5.7 % (0.0-5.0); NEUTROPHILS # 3.2 10^3/uL (1.8-7.7); PLATELET COUNT, AUTOMATED 184 10^3/uL (150-450); RED BLOOD COUNT 4.35 10^6/uL (4.00-5.40); RED CELL DISTRIBUTION WIDTH 12.5 % (11.5-14.5); VENOUS HCO3 22.7 MEQ/L (23.0-27.0); VENOUS O2 SATURATION 99.2 % (60.0-80.0); VENOUS PARTIAL PRESSURE CO2 38.8 mmHg (38.0-50.0); VENOUS PARTIAL PRESSURE O2 178.5 mmHg (30.0-50.0); VENOUS PH 7.385 UNITS (7.330-7.430); VENOUS STANDARD HCO3 22.8 MEQ/L; VENOUS TOTAL CO2 23.9 MEQ/L (24.0-28.0); WHITE BLOOD COUNT 6.2 10^3/uL (4.0-10.0)
[2017-12-19 19:12] LABS: ACETAMINOPHEN LEVEL < 2.0 UG/ML (10.0-30.0); ALBUMIN 3.8 GM/DL (3.2-5.2); ALBUMIN/GLOBULIN RATIO 0.95 (1.00-1.93); ALKALINE PHOSPHATASE 92 U/L (45-117); ALT/SGPT 50 U/L (12-78); ANION GAP 9 MEQ/L (8-16); AST/SGOT 44 U/L (7-37); BILIRUBIN,DIRECT 0.1 MG/DL (0.0-0.2); BILIRUBIN,TOTAL 0.3 MG/DL (0.2-1.0); BLOOD UREA NITROGEN 7 MG/DL (7-18); CALCIUM LEVEL 8.5 MG/DL (8.5-10.1); CARBON DIOXIDE LEVEL 25 MEQ/L (21-32); CHLORIDE LEVEL 107 MEQ/L (98-107); CPK CREATINE PHOSPHOKINASE 61 U/L (26-192); CREATININE FOR GFR 0.66 MG/DL (0.55-1.30); GLOMERULAR FILTRATION RATE > 60.0 (>60); GLUCOSE, FASTING 74 MG/DL (70-100); POTASSIUM SERUM 3.9 MEQ/L (3.5-5.1); SALICYLATE LEVEL 2.8 MG/DL (5.0-30.0); SODIUM LEVEL 141 MEQ/L (136-145); TOTAL PROTEIN 7.8 GM/DL (6.4-8.2)
[2017-12-19 19:28] LABS: ETHYL ALCOHOL (ETHANOL) < 0.003 % (0.000-0.010)
[2017-12-19 19:30] LABS: CONTROL LINE HCG INT CTR LINE PRESENT; HCG, SERUM QUALITATIVE NEGATIVE (NEGATIVE)
[2017-12-19 19:56] LABS: AMPHETAMINES LEVEL URINE POSITIVE (NEGATIVE); BARBITURATES URINE NEGATIVE (NEGATIVE); BENZODIAZEPINES URINE POSITIVE (NEGATIVE); CANNABINOIDS URINE NEGATIVE (NEGATIVE); COCAINE METABOLITE URINE NEGATIVE (NEGATIVE); METHADONE URINE NEGATIVE (NEGATIVE); OPIATES URINE NEGATIVE (NEGATIVE); PHENCYCLIDINE URINE NEGATIVE (NEGATIVE)
[2017-12-19 20:40] LABS: BEDSIDE GLUCOSE 76 MG/DL (70-105)
== END 2017-12-19 23:14 | disposition home or self-care (01) ==
LOC: M ED 15:55
DX: T50.901A Poisoning by unspecified drugs, medicaments and biological substances, accidental (unintentional), initial encounter (principal); Y92.89 Other specified places as the place of occurrence of the external cause; F33.9 Major depressive disorder, recurrent, unspecified; Z79.899 Other long term (current) drug therapy; Z79.891 Long term (current) use of opiate analgesic; F17.210 Nicotine dependence, cigarettes, uncomplicated
CPT/HCPCS: 93005

== ENCOUNTER → 2017-12-28 | Outpatient (REF) | payer OTHER ==
[2018-01-07 09:58] LABS: BARBITURATES SCREEN, URINE Negative
[2018-01-07 10:00] LABS: CANNABINOID SCREEN, URINE Negative; COCAINE SCREEN, URINE Negative; METHADONE, URINE SCREEN Negative; OPIATE SCREEN, URINE Negative; OXYCODONE, SCREEN, URINE Negative; PCP SCREEN, URINE Negative
[2018-01-07 10:01] LABS: CREATININE, URINE 328.6 High; FENTANYL URINE SCREEN Negative
[2018-01-07 10:02] LABS: NALOXONE RESULT Positive; SPECIFIC GRAVITY, URINE 1.019
[2018-01-07 10:03] LABS: AMPHETAMINE SCREEN, URINE Negative
[2018-01-07 10:04] LABS: pH, URINE 6.1
== END ==
LOC: M LAB REF 09:18
DX: F11.20 Opioid dependence, uncomplicated (principal)
CPT/HCPCS: 80362

== ENCOUNTER 2018-02-02 17:22 | Emergency (ER) | payer OTHER ==
[2018-02-02] MEDS: ONDANSETRON 4MG/2ML VIAL (J2405) IV (21:13)
[2018-02-02] MEDS: NS 1,000 ML IV (21:13)
[2018-02-02] MEDS: KETOROLAC 30 MG/ML VIAL (J1885) IV (21:17)
[2018-02-02 23:25] LABS: BASO # 0.1 10^3/uL (0.0-0.2); BASO % 0.6 % (0.0-1.0); EOS # 0.2 10^3/uL (0.0-0.50); HEMATOCRIT 38.4 % (36.0-47.0); HEMOGLOBIN 13.2 g/dl (12.0-15.5); IMMATURE GRANULOCYTE % 0.2 % (0-3.0); LYMPH % 37.9 % (24.0-44.0); MEAN CORPUSCULAR HEMOGLOBIN 31.4 pg (27.0-33.0); MEAN CORPUSCULAR HGB CONC 34.4 g/dl (32.0-36.5); MEAN CORPUSCULAR VOLUME 91.2 fl (80.0-96.0); MONO # 0.6 10^3/uL (0.0-0.8); MONO % 7.7 % (0.0-5.0); NEUTROPHILS # 4.1 10^3/uL (1.8-7.7); NEUTROPHILS % 51.6 % (36.0-66.0); PLATELET COUNT, AUTOMATED 225 10^3/uL (150-450); RED BLOOD COUNT 4.21 10^6/uL (4.00-5.40); RED CELL DISTRIBUTION WIDTH 13.4 % (11.5-14.5)
[2018-02-02 23:32] LABS: ALBUMIN 2.9 GM/DL (3.2-5.2); ALBUMIN/GLOBULIN RATIO 0.58 (1.00-1.93); ALKALINE PHOSPHATASE 90 U/L (45-117); ALT/SGPT 94 U/L (12-78); ANION GAP 9 MEQ/L (8-16); AST/SGOT 89 U/L (7-37); BILIRUBIN,DIRECT 0.2 MG/DL (0.0-0.2); BILIRUBIN,TOTAL 0.5 MG/DL (0.2-1.0); BLOOD UREA NITROGEN 10 MG/DL (7-18); C REACTIVE PROTEIN QUANTITATIV 3.83 MG/DL (0.00-0.30); CALCIUM LEVEL 8.7 MG/DL (8.5-10.1); CARBON DIOXIDE LEVEL 18 MEQ/L (21-32); CHLORIDE LEVEL 111 MEQ/L (98-107); CREATININE FOR GFR 0.68 MG/DL (0.55-1.30); GLOMERULAR FILTRATION RATE > 60.0 (>60); GLUCOSE, FASTING 91 MG/DL (70-100); POTASSIUM SERUM 3.8 MEQ/L (3.5-5.1); SODIUM LEVEL 138 MEQ/L (136-145); TOTAL PROTEIN 7.9 GM/DL (6.4-8.2)
[2018-02-02 23:33] LABS: LACTIC ACID SEPSIS PROTOCOL 0.8 MMOL/L (0.4-2.0)
[2018-02-02 23:36] LABS: POS COUNT POS FLAG
[2018-02-02] MEDS: CLINDAMYCIN 300 MG in APPROPRIATE DILUENT 1 EA IV (23:36)
[2018-02-02 23:57] LABS: ERYTHROCYTE SEDIMENTATION RATE 45 mm/hr (0-20)
== END 2018-02-03 01:01 | disposition home or self-care (01) ==
LOC: M ED 02-03 01:01
DX: N61.1 Abscess of the breast and nipple (principal); I50.9 Heart failure, unspecified; F41.9 Anxiety disorder, unspecified; F33.9 Major depressive disorder, recurrent, unspecified; F20.9 Schizophrenia, unspecified; B19.20 Unspecified viral hepatitis C without hepatic coma; G43.909 Migraine, unspecified, not intractable, without status migrainosus; Z79.899 Other long term (current) drug therapy; Z79.890 Hormone replacement therapy; F17.210 Nicotine dependence, cigarettes, uncomplicated
CPT/HCPCS: J2405

== ENCOUNTER 2018-02-22 18:34 | Inpatient (IN) | payer MEDICAID, OTHER ==
[2018-02-22] MEDS: NALOXONE INJ 2 MG/2 ML SYRINGE (J2310) IV (19:07)
[2018-02-22] MEDS: NS 1,000 ML IV ×2 (19:07→21:35)
[2018-02-22 19:32] LABS: HEMATOCRIT 33.6 % (36.0-47.0); HEMOGLOBIN 11.3 g/dl (12.0-15.5); MEAN CORPUSCULAR VOLUME 91.3 fl (80.0-96.0); RED BLOOD COUNT 3.68 10^6/uL (4.00-5.40); WHITE BLOOD COUNT 4.6 10^3/uL (4.0-10.0)
[2018-02-22 19:33] LABS: MEAN CORPUSCULAR HEMOGLOBIN 30.7 pg (27.0-33.0); MEAN CORPUSCULAR HGB CONC 33.6 g/dl (32.0-36.5); PLATELET COUNT, AUTOMATED 149 10^3/uL (150-450); RED CELL DISTRIBUTION WIDTH 12.4 % (11.5-14.5)
[2018-02-22 19:47] LABS: CONTROL LINE HCG INT CTR LINE PRESENT; HCG, SERUM QUALITATIVE NEGATIVE (NEGATIVE)
[2018-02-22 20:02] LABS: ALBUMIN 3.4 GM/DL (3.2-5.2); ALBUMIN/GLOBULIN RATIO 0.79 (1.00-1.93); ALKALINE PHOSPHATASE 80 U/L (45-117); ALT/SGPT 56 U/L (12-78); ANION GAP 9 MEQ/L (8-16); AST/SGOT 52 U/L (7-37); BILIRUBIN,DIRECT < 0.1 MG/DL (0.0-0.2); BILIRUBIN,TOTAL 0.3 MG/DL (0.2-1.0); BLOOD UREA NITROGEN 15 MG/DL (7-18); CALCIUM LEVEL 8.5 MG/DL (8.5-10.1); CARBON DIOXIDE LEVEL 22 MEQ/L (21-32); CHLORIDE LEVEL 108 MEQ/L (98-107); ETHYL ALCOHOL (ETHANOL) < 0.003 % (0.000-0.010); GLOMERULAR FILTRATION RATE > 60.0 (>60); GLUCOSE, FASTING 92 MG/DL (70-100); POTASSIUM SERUM 3.9 MEQ/L (3.5-5.1); SALICYLATE LEVEL 2.4 MG/DL (5.0-30.0); SODIUM LEVEL 139 MEQ/L (136-145); TOTAL PROTEIN 7.7 GM/DL (6.4-8.2)
[2018-02-22 20:03] LABS: ACETAMINOPHEN LEVEL < 2.0 UG/ML (10.0-30.0)
[2018-02-22 20:51] LABS: AMPHETAMINES LEVEL URINE NEGATIVE (NEGATIVE); BARBITURATES URINE NEGATIVE (NEGATIVE); BENZODIAZEPINES URINE POSITIVE (NEGATIVE); CANNABINOIDS URINE NEGATIVE (NEGATIVE); COCAINE METABOLITE URINE NEGATIVE (NEGATIVE); METHADONE URINE NEGATIVE (NEGATIVE); OPIATES URINE NEGATIVE (NEGATIVE); PHENCYCLIDINE URINE NEGATIVE (NEGATIVE)
[2018-02-23] MEDS ORDERED: LORazepam 2 MG TAB PO (02:15)
[2018-02-23] MEDS ORDERED: MAALOX 30 ML SUSP *UDC PO (02:15)
[2018-02-23] MEDS: FOLIC ACID 1 MG TAB PO (09:00)
[2018-02-23] MEDS: THIAMINE 100 MG TAB PO ×2 (09:00→22:04)
[2018-02-23] MEDS: MULTIVITAMINS/MINERALS THERAP 1 TAB PO (09:00)
[2018-02-23] MEDS: BACTRIM 160MG/800MG DS TAB PO ×2 (11:25→22:04)
[2018-02-23] MEDS: MUPIROCIN 2% OINT 22 GM TUBE TOP (12:21)
[2018-02-24] MEDS: THIAMINE 100 MG TAB PO ×2 (09:00→20:54)
[2018-02-24] MEDS: BACTRIM 160MG/800MG DS TAB PO ×3 (09:00→20:52)
[2018-02-24] MEDS: MULTIVITAMINS/MINERALS THERAP 1 TAB PO (09:00)
[2018-02-24] MEDS: FOLIC ACID 1 MG TAB PO (09:00)
[2018-02-24] MEDS: GABAPENTIN 300 MG CAP PO ×3 (11:36→20:52)
[2018-02-24] MEDS: MUPIROCIN 2% OINT 22 GM TUBE TOP (11:36)
[2018-02-24] MEDS: OLANZapine 5 MG TAB PO (11:36)
[2018-02-24] MEDS: BUPRENORPHINE/NALOXONE 8-2MG SUBLINGUAL TABLET(SUBOXONE) SL ×2 (11:36→20:54)
[2018-02-24] MEDS: PRAZOSIN 1 MG CAP PO (20:54)
[2018-02-24] MEDS: OLANZapine 10 MG TAB PO (20:54)
[2018-02-24] MEDS: traZODone 50 MG TAB PO (20:54)
[2018-02-25] MEDS: BACTRIM 160MG/800MG DS TAB PO ×2 (08:26→21:00)
[2018-02-25] MEDS: BUPRENORPHINE/NALOXONE 8-2MG SUBLINGUAL TABLET(SUBOXONE) SL ×2 (08:26→21:00)
[2018-02-25] MEDS: FOLIC ACID 1 MG TAB PO (08:26)
[2018-02-25] MEDS: OLANZapine 5 MG TAB PO (08:27)
[2018-02-25] MEDS: THIAMINE 100 MG TAB PO ×2 (08:27→21:00)
[2018-02-25] MEDS: MULTIVITAMINS/MINERALS THERAP 1 TAB PO (08:27)
[2018-02-25] MEDS: GABAPENTIN 300 MG CAP PO ×3 (08:27→21:00)
[2018-02-25] MEDS: MUPIROCIN 2% OINT 22 GM TUBE TOP (08:32)
[2018-02-25] MEDS ORDERED: cloNIDine 0.1 MG TAB PO (14:00)
[2018-02-25] MEDS: OLANZapine 10 MG TAB PO (21:00)
[2018-02-25] MEDS: PRAZOSIN 1 MG CAP PO (21:00)
[2018-02-26] MEDS: BACTRIM 160MG/800MG DS TAB PO (08:12)
[2018-02-26] MEDS: MULTIVITAMINS/MINERALS THERAP 1 TAB PO (08:12)
[2018-02-26] MEDS: MUPIROCIN 2% OINT 22 GM TUBE TOP (08:12)
[2018-02-26] MEDS: GABAPENTIN 300 MG CAP PO ×3 (08:12→20:28)
[2018-02-26] MEDS: BUPRENORPHINE/NALOXONE 8-2MG SUBLINGUAL TABLET(SUBOXONE) SL ×2 (08:13→20:28)
[2018-02-26] MEDS: OLANZapine 5 MG TAB PO (08:13)
[2018-02-26] MEDS: FOLIC ACID 1 MG TAB PO (08:13)
[2018-02-26] MEDS: NICOTINE 21MG/24HR 1 EA TRANSDERMAL TD (09:45)
[2018-02-26] MEDS: MOM 30ML SUSPENSION UDC PO (09:46)
[2018-02-26] MEDS: hydrOXYzine 25 MG TAB PO ×3 (09:46→22:33)
[2018-02-26] MEDS: DOCUSATE SODIUM 100 MG CAP PO ×2 (10:34→20:28)
[2018-02-26] MEDS: DOXYCYCLINE HYCLATE 100 MG TAB PO ×2 (12:12→20:28)
[2018-02-26 19:15] LABS: AMPHETAMINES LEVEL URINE NEGATIVE (NEGATIVE); BARBITURATES URINE NEGATIVE (NEGATIVE); BENZODIAZEPINES URINE POSITIVE (NEGATIVE)
[2018-02-26 19:16] LABS: CANNABINOIDS URINE POSITIVE (NEGATIVE); COCAINE METABOLITE URINE NEGATIVE (NEGATIVE); METHADONE URINE NEGATIVE (NEGATIVE); OPIATES URINE POSITIVE (NEGATIVE); PHENCYCLIDINE URINE NEGATIVE (NEGATIVE)
[2018-02-26] MEDS: OLANZapine 10 MG TAB PO (20:28)
[2018-02-26] MEDS: PRAZOSIN 1 MG CAP PO (20:28)
[2018-02-26] MEDS: traZODone 50 MG TAB PO (20:29)
[2018-02-27] MEDS: DOCUSATE SODIUM 100 MG CAP PO ×2 (08:22→20:15)
[2018-02-27] MEDS: OLANZapine 5 MG TAB PO ×4 (08:22→20:14)
[2018-02-27] MEDS: GABAPENTIN 300 MG CAP PO ×3 (08:22→20:15)
[2018-02-27] MEDS: MULTIVITAMINS/MINERALS THERAP 1 TAB PO (08:22)
[2018-02-27] MEDS: FOLIC ACID 1 MG TAB PO (08:23)
[2018-02-27] MEDS: DOXYCYCLINE HYCLATE 100 MG TAB PO ×2 (08:23→20:15)
[2018-02-27] MEDS: BUPRENORPHINE/NALOXONE 8-2MG SUBLINGUAL TABLET(SUBOXONE) SL ×2 (08:23→20:14)
[2018-02-27] MEDS: MUPIROCIN 2% OINT 22 GM TUBE TOP (08:23)
[2018-02-27] MEDS: NICOTINE 21MG/24HR 1 EA TRANSDERMAL TD (08:23)
[2018-02-27] MEDS: hydrOXYzine 25 MG TAB PO ×3 (11:39→20:15)
[2018-02-27] MEDS: traZODone 50 MG TAB PO (20:15)
[2018-02-27] MEDS: PRAZOSIN 1 MG CAP PO (20:16)
[2018-02-28] MEDS: hydrOXYzine 25 MG TAB PO (04:25)
[2018-02-28] MEDS: ACETAMINOPHEN TAB 650MG DOSE (2X325MG) PO (04:27)
[2018-02-28] MEDS: GABAPENTIN 300 MG CAP PO (08:32)
[2018-02-28] MEDS: MULTIVITAMINS/MINERALS THERAP 1 TAB PO (08:32)
[2018-02-28] MEDS: DOXYCYCLINE HYCLATE 100 MG TAB PO (08:32)
[2018-02-28] MEDS: OLANZapine 5 MG TAB PO (08:32)
[2018-02-28] MEDS: BUPRENORPHINE/NALOXONE 8-2MG SUBLINGUAL TABLET(SUBOXONE) SL (08:32)
[2018-02-28] MEDS: NICOTINE 21MG/24HR 1 EA TRANSDERMAL TD (08:32)
[2018-02-28] MEDS: DOCUSATE SODIUM 100 MG CAP PO (08:32)
[2018-02-28] MEDS: FOLIC ACID 1 MG TAB PO (08:32)
[2018-02-28] MEDS: MUPIROCIN 2% OINT 22 GM TUBE TOP (08:33)
[2018-02-28] MEDS ORDERED: MIRTAZAPINE 15 MG TAB PO (21:00)
[2018-02-28] MEDS ORDERED: OLANZapine 10 MG TAB PO (21:00)
[2018-03-01] MEDS ORDERED: OLANZapine 10 MG TAB PO (09:00)
== END 2018-02-28 11:06 | disposition home or self-care (01) | DRG 885 ==
LOC: M ED 18:34 → M ED INP 02-23 02:12 → M PSY 02-23 03:22
DX: F25.0 Schizoaffective disorder, bipolar type (principal); F43.10 Post-traumatic stress disorder, unspecified; F11.10 Opioid abuse, uncomplicated; T42.4X2A Poisoning by benzodiazepines, intentional self-harm, initial encounter; Y92.9 Unspecified place or not applicable; M79.7 Fibromyalgia; B18.2 Chronic viral hepatitis C; F17.210 Nicotine dependence, cigarettes, uncomplicated; D64.9 Anemia, unspecified; F41.0 Panic disorder [episodic paroxysmal anxiety]; Z65.2 Problems related to release from prison; F60.2 Antisocial personality disorder; Z91.5 Personal history of self-harm; Z79.899 Other long term (current) drug therapy

== ENCOUNTER → 2019-03-05 | Outpatient (CLI) | payer MEDICAID ==
[~2019-03-05] MED LIST changes: +CLON-412 PO; +DOXY100C37 PO; +GABA-1171 PO; -GABA-279 PO; -GABA-282 PO; +GABA-843 PO; -GABA600T PO; +GABA600T4 PO; +INVE156I IM; +INVE234I IM; +METO-1 OR; +MIRT15TA3 PO; +MOBI4TAB PO; +OLAN20TA14 PO; +PREG50CA PO; +SUBO8MIS; +SUBO8MIS SL; +TOPI25TA10 PO; -TOPR25TA OR; +TRAZ-252 PO; -TRAZ50TA11 PO
== END ==
LOC: M OUTALCOH 09:31
PROVIDERS: ATTEND Psychiatry & Neurology Psychiatry
DX: F11.10 Opioid abuse, uncomplicated (principal)

== ENCOUNTER 2019-05-12 15:25 | Emergency (ER) | payer MEDICAID, OTHER ==
[~2019-05-12] VITALS: Ht 154.9 cm; Wt 64.4 kg
[2019-05-12 15:26] VITALS: BP 116/63
[2019-05-12] MEDS ORDERED: PREG50CA (16:10)
[2019-05-12] MEDS ORDERED: BUPR150T3 (16:10)
[2019-05-12] MEDS ORDERED: OXYB5TAB10 (16:10)
[2019-05-12] MEDS ORDERED: TIZA4TAB4 (16:10)
[2019-05-12] MEDS ORDERED: QUET5TAB (16:10)
[2019-05-12] MEDS ORDERED: LIDO5DIS41 TD (16:54)
[2019-05-12] MEDS ORDERED: OXYB5TAB10 PO (16:54)
[2019-05-12] MEDS ORDERED: LIDOCAINE 5% (LIDODERM) PATCH TD ONE (17:00)
[2019-05-12] MEDS ORDERED: **NOTE PATIENT COMMENT** MISC XX SCH (21:00)
== END 2019-05-12 17:07 | disposition home or self-care (01) ==
LOC: M ED 15:25
DX: Z30.018 Encounter for initial prescription of other contraceptives (principal); M54.5 Low back pain; G43.909 Migraine, unspecified, not intractable, without status migrainosus; F17.200 Nicotine dependence, unspecified, uncomplicated; F31.9 Bipolar disorder, unspecified; F60.2 Antisocial personality disorder; Z79.899 Other long term (current) drug therapy

== ENCOUNTER → 2019-05-21 | Outpatient (REF) | payer OTHER ==
[~2019-05-21] MED LIST changes: +BUPR150T3; +LIDO5DIS41 TD; +OXYB5TAB10; +OXYB5TAB10 PO; +PREG50CA; +QUET5TAB; +TIZA4TAB4
[2019-05-21 15:34] LABS: BASO # 0.1 10^3/uL (0.0-0.2); BASO % 0.9 % (0.0-1.0); EOS # 0.3 10^3/uL (0.0-0.5); EOS % 4.1 % (0.0-3.0); HEMATOCRIT 42.2 % (36.0-47.0); HEMOGLOBIN 14.5 g/dl (12.0-15.5); LYMPH # 2.6 10^3/uL (1.5-5.0); LYMPH % 40.2 % (24.0-44.0); MEAN CORPUSCULAR HEMOGLOBIN 32.9 pg (27.0-33.0); MEAN CORPUSCULAR HGB CONC 34.4 g/dl (32.0-36.5); MEAN CORPUSCULAR VOLUME 95.7 fl (80.0-96.0); MONO # 0.4 10^3/uL (0.0-0.8); MONO % 5.5 % (0.0-5.0); NEUTROPHILS # 3.1 10^3/uL (1.5-8.5); NEUTROPHILS % 49.1 % (36.0-66.0); PLATELET COUNT, AUTOMATED 245 10^3/uL (150-450); RED BLOOD COUNT 4.41 10^6/uL (4.00-5.40); WHITE BLOOD COUNT 6.4 10^3/uL (4.0-10.0)
[2019-05-21 15:43] LABS: ALBUMIN 3.9 GM/DL (3.2-5.2); ALT/SGPT 77 U/L (12-78); BILIRUBIN,TOTAL 0.3 MG/DL (0.2-1.0); BLOOD UREA NITROGEN 7 MG/DL (7-18); CARBON DIOXIDE LEVEL 28 MEQ/L (21-32); CHLORIDE LEVEL 106 MEQ/L (98-107); CHOLESTEROL LEVEL 170 MG/DL (<200); CHOLESTEROL RISK RATIO 3.863 (<5); CREATININE FOR GFR 0.66 MG/DL (0.55-1.30); FREE T4 1.08 NG/DL (0.76-1.46); GLOMERULAR FILTRATION RATE > 60.0 (>60); GLUCOSE, FASTING 97 MG/DL (70-100); HDL CHOLESTEROL 44 MG/DL (>40); LDL CHOLESTEROL 104 MG/DL (<100); NON-HDL-C 126 MG/DL; POTASSIUM SERUM 4.2 MEQ/L (3.5-5.1); SODIUM LEVEL 139 MEQ/L (136-145); TOTAL PROTEIN 7.7 GM/DL (6.4-8.2); TRIGLYCERIDES LEVEL 109 MG/DL (<150)
[2019-05-21 15:45] LABS: TOTAL 25(OH) VITAMIN D 12.3 NG/ML (30.0-100.0)
== END ==
LOC: M LAB REF 14:25
PROVIDERS: ATTEND Family Medicine
DX: Z13.228 Encounter for screening for other metabolic disorders (principal)

== ENCOUNTER 2019-06-15 08:21 | Inpatient (IN) | payer OTHER ==
[~2019-06-15] VITALS: Ht 154.9 cm; Wt 65.9 kg
[~2019-06-15 08:21] MED LIST changes: -BUPR150T3; +BUPR150T3 PO; -OXYB5TAB10; -TIZA4TAB4; +TIZA4TAB4 PO
[2019-06-15] MEDS ORDERED: ABIL1TAB13 PO (08:55)
[2019-06-15] MEDS ORDERED: TRAZ-163 PO (08:55)
[2019-06-15] MEDS ORDERED: FLUO10CA8 PO (08:55)
[2019-06-15] MEDS ORDERED: COLA100C5 PO (08:55)
[2019-06-15] MEDS ORDERED: buPROPion **XL** TABLET 150MG (WELLBUTRIN XL) PO SCH (09:00)
[2019-06-15 09:39] LABS: BASO % 0.8 % (0.0-1.0); EOS # 0.2 10^3/uL (0.0-0.5); HEMATOCRIT 38.7 % (36.0-47.0); HEMOGLOBIN 12.7 g/dl (12.0-15.5); LYMPH # 2.1 10^3/uL (1.5-5.0); LYMPH % 39.3 % (24.0-44.0); MEAN CORPUSCULAR HEMOGLOBIN 31.5 pg (27.0-33.0); MEAN CORPUSCULAR HGB CONC 32.8 g/dl (32.0-36.5); MONO # 0.4 10^3/uL (0.0-0.8); MONO % 7.3 % (0.0-5.0); NEUTROPHILS # 2.6 10^3/uL (1.5-8.5); NEUTROPHILS % 49.4 % (36.0-66.0); PLATELET COUNT, AUTOMATED 203 10^3/uL (150-450); RED BLOOD COUNT 4.03 10^6/uL (4.00-5.40); WHITE BLOOD COUNT 5.3 10^3/uL (4.0-10.0)
[2019-06-15 10:09] LABS: HCG, SERUM QUALITATIVE NEGATIVE (NEGATIVE)
[2019-06-15 10:14] LABS: ACETAMINOPHEN LEVEL < 2.0 UG/ML (10.0-30.0); ALBUMIN 3.4 GM/DL (3.2-5.2); ALT/SGPT 43 U/L (12-78); BILIRUBIN,DIRECT < 0.1 MG/DL (0.0-0.2); BILIRUBIN,TOTAL 0.3 MG/DL (0.2-1.0); BLOOD UREA NITROGEN 6 MG/DL (7-18); CALCIUM LEVEL 8.9 MG/DL (8.5-10.1); CARBON DIOXIDE LEVEL 27 MEQ/L (21-32); CHLORIDE LEVEL 106 MEQ/L (98-107); CK-MB VALUE MASS < 1.0 NG/ML (<3.6); CPK CREATINE PHOSPHOKINASE 66 U/L (26-192); CREATININE FOR GFR 0.72 MG/DL (0.55-1.30); ETHYL ALCOHOL (ETHANOL) < 0.003 % (0.000-0.010); GLOMERULAR FILTRATION RATE > 60.0 (>60); GLUCOSE, FASTING 103 MG/DL (70-100); MAGNESIUM LEVEL 1.4 MG/DL (1.8-2.4); MB/CK RELATIVE INDEX 1.52 (< OR =4); POTASSIUM SERUM 3.9 MEQ/L (3.5-5.1); SODIUM LEVEL 140 MEQ/L (136-145); TOTAL PROTEIN 7.2 GM/DL (6.4-8.2); TROPONIN I < 0.02 NG/ML (< 0.10)
[2019-06-15] MEDS ORDERED: MAG SULF 1GM/100ML (MAG RUN) 1 GM in IV 1 EA IV ONE (10:30)
--- NOTE | 2019-06-15 10:53 | REP ---
Head CT without contrast: History: Seizure x2. 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 The patient is edentulous. Bone window settings demonstrate an intact bony calvarium. There is no evidence of skull fracture or incidental bony calvarial lesion. The visualized paranasal sinuses appear clear. No intraorbital abnormality is seen. On soft tissue window setting images; the lateral, third, and fourth ventricles are normal in size and position. Zabala-white differentiation pattern is normal above and below the tentorium. There are is no evidence of intracranial hemorrhage. No mass, edema, infarction, or midline shift is seen. No extra-axial fluid collection is appreciated. Impression: Negative noncontrast head CT. Electronically Signed by Parker Shipley MD 06/15/2019 10:45 A
--- NOTE | 2019-06-15 11:05 | REP ---
Portable chest x-ray: Single view. History: Altered mental status. Findings: EKG monitoring electrodes overlie the chest. Lungs are symmetrically aerated and clear. Heart is not enlarged. Pulmonary vasculature is not increased. No significant bony abnormality. Impression: Negative chest x-ray. Electronically Signed by Parker Shipley MD 06/15/2019 10:56 A
--- NOTE | 2019-06-15 11:05 | REP ---
Right femur: Four views. History: Seizure. Bruise. Findings: Four views of the right femur demonstrate normal bones, joints, and soft tissues. No fracture or subluxation seen. Impression: Negative radiographs of the right thigh. Electronically Signed by Parker Shipley MD 06/15/2019 10:57 A
--- NOTE | 2019-06-15 11:09 | REP ---
CT study of the cervical spine without contrast: History: Seizures x2. Technique: Helical scanning is acquired and overlapping 2 mm high resolution axial images were generated and reviewed at bone and soft tissue window settings. Coronal and sagittal multiplanar re-formations images are generated. CT findings: There is no evidence of cervical spine element fracture. No skull base fracture is seen. Cervical vertebral body heights are preserved. Alignment is normal. Facet joints are normally aligned bilaterally at each cervical level on multiplanar re-formations images. There is no evidence of intraspinal or paraspinal hematoma. No extra vertebral abnormality is seen. Impression: Negative CT study of the cervical spine without contrast. No fracture seen. Electronically Signed by Parker Shipley MD 06/15/2019 11:02 A
--- NOTE | 2019-06-15 11:11 | REP ---
CT facial bones: 06/15/2019. Indication: Face trauma. Comparison: None. Technique: Unenhanced axial images of the facial bones were obtained with coronal and sagittal reconstructions provided. Findings: There is no acute facial bone fracture, subluxation or dislocation. The ocular structures are intact. No acute post traumatic intraorbital abnormalities are present. The paranasal sinuses and mastoid air cells are free of hemorrhage. Periosteal mucosal thickening is noted within the right maxillary sinus. Impression: No acute facial bone fracture. Electronically Signed by Perfecto Owen DO 06/15/2019 11:02 A
[2019-06-15] MEDS ORDERED: VALPROATE SOD INJ 1,000 MG in D5W 50 ML IV ONE ×2 (11:15→11:30)
[2019-06-15] MEDS ORDERED: ADACEL/BOOSTRIX VACCINE (DIPHTH/PERTUSS/ACELL/TETANUS)0.5ML SYR (90715) IM ONE (11:45)
[2019-06-15 13:52] LABS: AMPHETAMINES LEVEL URINE NEGATIVE (NEGATIVE); BARBITURATES URINE NEGATIVE (NEGATIVE); BENZODIAZEPINES URINE NEGATIVE (NEGATIVE); CANNABINOIDS URINE NEGATIVE (NEGATIVE); COCAINE METABOLITE URINE NEGATIVE (NEGATIVE); METHADONE URINE NEGATIVE (NEGATIVE); OPIATES URINE NEGATIVE (NEGATIVE); PHENCYCLIDINE URINE NEGATIVE (NEGATIVE)
[2019-06-15 14:00] VITALS: BP 102/59
--- NOTE | 2019-06-15 14:19 | CR ---
DATE OF CONSULTATION: 06/15/2019 REQUESTING PHYSICIAN: Dr. Ortiz and Dr. Zabala INDICATION: Seizure, query QT prolongation. HISTORY OF PRESENT ILLNESS: Ms. Galindo is known to me. She is a pleasant young female who has longstanding history of numerous psychiatric problems and history of cardiac arrest due to polymorphic ventricular tachycardia in 2011 in setting of acute overdose. She came to the hospital on insistence of her mother after she suffered two seizure events. One was 3 days ago and one was yesterday, each of them occurred when she was walking on stairs. She says that she had a feeling of warmth and dizziness that was shortly thereafter (within approximately 30 seconds) followed by loss of consciousness and witnessed seizure-like activity. Surprisingly, there was no postictal behavior. She was not delayed and was immediately coherent afterwards. For reasons that are difficult to understand, she refused to be evaluated initially but then agreed to come to the hospital today. The initial ECG revealed incomplete right bundle branch block with shallow T-wave inversions in leads V1-V4 and borderline QT prolongation. I was called to see her because of this presentation. At bedside, the patient tells me that she had one prior seizure event in 2012. She was back then actively using drugs and has a relatively limited recollection. She does admit that recently there have been significant changes in her medication regimen. She cannot recall exactly what was changed but she was recently released from [facility] in January and since that time her medications are very different than they used to be before. PAST MEDICAL HISTORY: 1. History of resuscitated cardiac arrest in 2011 in setting of acute overdose. At that point, she had ejection fraction in the neighborhood of 30-35%, but it rapidly improved and the last echocardiogram in 2016 already reveals preserved left ventricular systolic function. 2. 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 3. History of polysubstance abuse, including alcohol and numerous other medications. 4. History of schizophrenia, anxiety and depression. 5. Posttraumatic stress disorder (PTSD). 6. Chronic hepatitis C. Currently listed medications include: - trazodone 100 mg at night - tizanidine 4 mg as needed - oxybutynin 5 mg twice a day - gabapentin 600 mg three times a day - fluoxetine 10 mg daily - bupropion 150 mg daily - Suboxone - Abilify PAST SURGICAL HISTORY: Positive for section times two and umbilical hernia repair. FAMILY HISTORY: Positive for coronary artery disease. SOCIAL HISTORY: The patient is single. She currently lives with her mother and stepfather. Her two children are not under her care. She does not smoke and reports to be sober for over a year. REVIEW OF SYSTEMS: She denies any recent unusual events. She says that there has been no recent fever, chills, nausea or vomiting or diarrhea. No palpitations. No chest discomfort. No shortness of breath. She admits that recently there have been changes in her medications. She had some excoriations on her face from her first fall and she also reports some pain in her right hip after she fell on the stairs. PHYSICAL EXAMINATION: Ms. Galindo is a young woman. She appears approximately her age. Blood pressure 120/71, heart rate in 70s. She is afebrile. Saturation 96 to 98% on room air. She is alert and oriented and appropriate. Her jugular venous pressure is not high. Lungs are clear. Good air movement. Heart exam reveals regular rhythm. There is a faint murmur at the base, not more than 1/6 intensity. No gallop, rub or murmur is seen. Abdomen soft. No obvious guarding, tenderness, rebound tenderness or hepatosplenomegaly. Extremities are free of edema. Peripheral pulses are palpable. There are numerous tattoos and she has excoriations on her face reportedly from a fall 3 days ago, even though they look older than that. LABORATORY: CBC is normal. Basic metabolic panel is normal. Cardiac enzymes have been normal. HCG is negative and TSH is 2.6. She had imaging that was unrevealing, including Head CT, chest x-ray, cervical spine CT and femoral x-ray. ASSESSMENT/PLAN Ms. Galindo is a 33-year-old female that suffered two separate seizure like events 2 days apart, the last one being yesterday. It was a witnessed event and the overall description is not classic for grand mal seizure. Mostly because she did not have postictal behavior. But seizure remains the leading diagnosis and further neurologic evaluation will be left to neurology. I cannot rule out that the present event was actually arrhythmia, but her QT interval is not markedly prolonged and I somewhat skeptical that it would be sufficient to cause polymorphic VT, even though it is certainly possible. I think that it is appropriate to keep the patient in the hospital for monitoring at a minimum of 48-72 hours. My inclination would be to give her as little psychiatric medications as possible. I would start with reducing the dose of gabapentin and Abilify if possible. We will obtain serial ECGs and keep the patient in hospital for monitoring. Followup echocardiogram will also be obtained. MTDD
--- NOTE | 2019-06-15 14:29 | HPEPDOC ---
General Date of Admission 06/15/19 Date of Service: Jun 15, 2019 Chief Complaint The patient is a 33-year-old female admitted with a reason for visit of Seizure. Source: Patient, RN/, Old records History of Present Illness 33 year old female with extensive drug use history alcohol and drugs (cocaine, spice, heroin, bath salts) now on Suboxone with h/o drug overdose and out of hospital cardiac arrest in 2011, Cardiomyopathy after cardiac arrest which recovered, prolonged qt with bradycardia and poly morphic VTs post cardiac arrest which was thought to be related to drugs, extensive psychiatric history, suicidal attempts and admissions was in longterm from last year and was released in january 2019. In longterm she was on xyprexa, remeron, zoloft. After her release she has been following with psychiatrist and new medications have been started and doses adjusted. Most recent visit was on 06/06/19 when she was started on fluoxetine, trazodone and abilify. Her Seroquel was stopped. She has been on gabapentin started after release and she wanted her dose to be lowered as she feels it was making her slow and confused. She presented to the ED with 2 episodes of seizure this week one on 06/12 and one on 06/13. During the first one she fell down the cellar steps and broke a water container did not have any prodromal symptoms. She had a second one the next day when she fell down the stairs from the second to the first floor. She had abrasions on her forehead and nose and bruising on the right thigh. After the second one she was very tired and slept the whole day and night and woke up late on 06/14/19. Then she started twitching and her muscles were jumping. she could not sleep at all last night . So her family insisted her to come tot ED today. Pateint says and corroborated by mom that she has not used any drugs or alcohol since last year. pateint had ct head neg, CT cervical spine no acute finding, maxillofacial CT for fractures. Xray right femur no fracture or dislocation. CXR no acute finding. Patient was admitted for evaluation of recurrent seizures Home Medications Scheduled Aripiprazole (Abilify) 2 Mg Tablet, 2 MG PO DAILY, (Reported) Buprenorphine HCl/Naloxone HCl (Suboxone 8 mg-2 mg Sl Film) 1 Mis Mis, 1 MIS SL BID, (Reported) TAKES MORNING AND NOON Bupropion Hcl (Bupropion Xl) 150 Mg Tab.er.24h, 150 MG PO DAILY, (Reported) Docusate Sodium (Colace) 100 Mg Capsule, 100 MG PO DAILY, (Reported) Fluoxetine Hcl (Fluoxetine HCl) 10 Mg Capsule, 10 MG PO DAILY, (Reported) Gabapentin (Gabapentin) 600 Mg Tab, 600 MG PO TID, (Reported) Oxybutynin Chloride (Oxybutynin Chloride) 5 Mg Tablet, 5 MG PO BID, (Reported) Trazodone HCl (Trazodone HCl) 100 Mg Tablet, 100 MG PO QHS, (Reported) MAY TAKE A SECOND TABLET IF NEEDED Scheduled PRN Tizanidine HCl (Tizanidine HCl) 4 Mg Tablet, 4 MG PO BID PRN for SPASMS, (Reported) Allergies Coded Allergies: No Known Allergies (Verified , 02/22/18) Past Medical History Medical History Chronic hepatitis C. History of polysubstance use/IVDU, on Suboxone H/O Alcohol use History of drug overdose/cardiac arrest and resuscitation 2011 Cardiomyopathy with EF of 30 to 35% post cardiac arrest possibly due to drugs. Recovery of cardiac function with normal EF in 2016 History of prolonged QT/bradycardia with polymorphic vts during hypothermia protocol and immediately after it PTSD Fibromyalgia Chronic pain Panic and anxiety disorder. Opiate use disorder. Benzodiazepine use disorder. Overdose of benzodiazepine. Antisocial personality disorder. Surgical History Umbilical hernia repair 2Schizoaffective disorder, bipolar type. Family History father alcohol abuse cirrhosis. Social History * Smoker: current smoker Drugs: cocaine (prior use), heroin (prior use), marijuana, IV drug use (prior use) A-FIB/CHADSVASC A-FIB History Current/History of A-Fib/PAF?: No Review of Systems Constitutional: Reports: Fatigue, Lethargy Eyes: Denies: Pain, Vision change ENT: Reports: Head Aches Skin: Reports: Bruising (right thigh) Pulmonary: Denies: Dyspnea, Cough Cardiovascular: Denies: Chest Pain, Palpitations, Orthopnea, Paroxysmal Noc. Dyspnea, Lt Headedness Gastrointestinal: Denies: Nausea, Vomiting, Abdominal Pain, Diarrhea Genitourinary: Denies: Dysuria, Frequency, Incontinence, Retention Hematologic: Denies: Bruising, Bleeding Excessively Musculoskeletal: Reports: Leg Pain (right) Neurological: Reports: Weakness, Confusion, Seizures, Other Symptoms (muscle twitching) Psych: Reports: Anxiety Physical Examination General Exam: Positive: Alert, Cooperative, No Acute Distress Eye Exam: Positive: PERRLA, Conjunctiva & lids normal, EOMI ENT Exam: Positive: Other ENT (abrasions on the bridge of the nose) Neck Exam: Positive: Supple; Negative: JVD, thyromegaly Chest Exam: Positive: Clear to auscultation, Normal air movement Heart Exam: Positive: Rate Normal, Regular Rhythm, Normal S1, Normal S2; Negative: Murmurs, Rubs Telemetry: Positive: No significant arrhythmia Abdomen Exam: Positive: Normal bowel sounds, Soft; Negative: Tenderness, Hepatospenomegaly Extremity Exam: Positive: Normal pulses; Negative: Clubbing, Cyanosis, Edema Skin Exam: Positive: Nl turgor and temperature; Negative: Breakdown, Lesion Neuro Exam: Positive: Normal Speech, Strength at 5/5 X4 ext, Normal Tone, Ref lexes 2+ Psych Exam: Positive: Anxiety, Memory Intact, Oriented x 3 Vital Signs Vital Signs Date Time Temp Pulse Resp B/P (MAP) Pulse Ox O2 Delivery O2 Flow Rate FiO2 06/15/19 09:21 76 16 88 Room Air 06/15/19 09:05 06/15/19 08:21 98.5 Laboratory Data Labs 24H Laboratory Tests 2 06/15/19 09:18: Immature Granulocyte % (Auto) 0.2, Neutrophils (%) (Auto) 49.4, Lymphocytes (%) (Auto) 39.3, Monocytes (%) (Auto) 7.3H, Eosinophils (%) (Auto) 3.0, Basophils (%) (Auto) 0.8, Neutrophils # (Auto) 2.6, Lymphocytes # (Auto) 2.1, Monocytes # (Auto) 0.4, Eosinophils # (Auto) 0.2, Basophils # (Auto) 0.0, Nucleated Red Blood Cells % (auto) 0.0, Anion Gap 7L, Glomerular Filtration Rate > 60.0, Lactic Acid Level 1.9, Calcium Level 8.9, Magnesium Level 1.4L, Total Bilirubin 0.3, Direct Bilirubin < 0.1, Aspartate Amino Transf (AST/SGOT) 38H, Alanine Aminotransferase (ALT/SGPT) 43, Alkaline Phosphatase 77, Ammonia 12, Total Creatine Kinase 66, Creatine Kinase MB < 1.0, Creatine Kinase MB Relative Index 1.52, Troponin I < 0.02, Total Protein 7.2, Albumin 3.4, Albumin/Globulin Ratio 0.89L, Thyroid Stimulating Hormone (TSH) 2.640, Human Chorionic Gonadotropin, Qual NEGATIVE, Salicylates Level 3.0L, Acetaminophen Level < 2.0L, Ethyl Alcohol Level < 0.003 CBC/BMP Laboratory Tests 06/15/19 09:18 Assessment/Plan 33 year old female with extensive drug use history alcohol and drugs (cocaine, spice, heroin, bath salts) now on Suboxone with h/o drug overdose and out of hospital cardiac arrest in 2011, Cardiomyopathy after cardiac arrest which recovered, prolonged qt with bradycardia and poly morphic VTs post cardiac arrest which was thought to be related to drugs, extensive psychiatric history, suicidal attempts and admissions was in longterm from last year and was released in january 2019. In longterm she was on xyprexa, remeron, zoloft. After her release she has been following with psychiatrist and new medications have been started and doses adjusted. Most recent visit was on 06/06/19 when she was started on fluoxetine, trazodone and Abilify. Her Seroquel was stopped. She has been on gabapentin started after release and she wanted her dose to be lowered as she feels it was making her slow and confused. She presented to the ED with 2 episodes of seizure this week one on 06/12 and one on 06/13. She was admitted f or evaluation of recurrent seizures. Recurrent seizures followed by persistent myoclonic jerks this is most probably due to being on a combination of Wellbutrin, trazodone and fluoxetine will stop Wellbutrin first as this is the most likely culprit EEG today. consulted dr GREGORY valproate loading with 1000mg and then Depakote ER 500 bid. H/o qtc prolongation now qtc is normal but EKG does show some t wave consulted dr Ya. Psychiatric issues will continue home meds except for Wellbutrin H/O drug and alcohol abuse claims has not used for a year corroborated by mom will still get an U tox. continue Suboxone. Plan / VTE VTE Prophylaxis Ordered?: Yes MACY FLORIAN MD Jun 15, 2019 11:25
[2019-06-15 15:00] VITALS: BP 102/69
[2019-06-15] MEDS: GABAPENTIN 300 MG CAP PO SCH ×2 (15:43→21:00)
[2019-06-15] MEDS: BUPRENORPHINE/NALOXONE 8-2MG SUBLINGUAL TABLET(SUBOXONE) SL SCH (15:43)
[2019-06-15] MEDS: FLUoxetine 10 MG CAP PO SCH (15:43)
[2019-06-15] MEDS: ARIPiprazole 2 MG TAB PO SCH (17:26)
--- NOTE | 2019-06-15 19:04 | ECGEPIP ---
[facility] - ED Test Date: 2019-06-15 Pat Name: BIGG SIMS Department: Room: - Gender: Female [employer] Operations: : 1985 Requested By: Jen Alvarez Order Number: [id number] Reading MD: Yessica Caal Measurements Intervals [place] Rate: 73 P: 26 AR: 150 QRS: 18 QRSD: 109 T: 6 QT: 436 QTc: 482 Interpretive Statements SINUS RHYTHM POSSIBLE RIGHT VENTRICULAR CONDUCTION DELAY MODERATE T-WAVE ABNORMALITY, CONSIDER ANTERIOR ISCHEMIA INCREASED RATE 02/23/18 Electronically Signed on 06-15-2019 19:04:25 EST by Yessica Caal
--- NOTE | 2019-06-15 19:07 | ECHO ---
DATE OF PROCEDURE: 06/15/2019 REFERRING PHYSICIAN: Dr. Ortiz, . INDICATION: Syncope. Height 154 cm Weight 66 kg DIMENSION: IVS 0.8 LV 4.6 LVPW 0.8 LA 3.1 Aorta 2.6 RV 2.20 Left atrial volume index 24 IVC 1.4 Mitral E wave velocity 69, A-wave 40 E prime septal 8.7 E prime lateral 10.0 FINDINGS: The study is of good technical quality. The patient is in sinus rhythm. Left ventricle is normal size and systolic function with estimated LVEF approximately 55-60%. I do not appreciate any segmental wall motion abnormalities. Right ventricle is normal size and systolic function. Both atria are normal. All four cardiac valves were well seen and appear normal. No pericardial effusion is present. Inferior vena cava is normal size. Aortic root is normal. Aortic arch and abdominal aorta were not well seen. Doppler interrogation reveals competent aortic valve. There is trace mitral, tricuspid and pulmonic insufficiency. Calculated pulmonary artery pressure is within normal limits. Mitral inflow pattern and tissue Doppler imaging of mitral annulus reveal normal diastolic function. CONCLUSIONS: Essentially normal echocardiogram. COMMENT: Subacute bacterial endocarditis (SBE) prophylaxis is not recommended. MTDD
[2019-06-15 19:54] VITALS: BP 98/42
[2019-06-15 20:57] VITALS: BP 108/66
[2019-06-15] MEDS: oxyBUTYnin 5 MG TAB PO SCH (21:00)
[2019-06-15] MEDS: traZODone 100 MG TAB PO SCH (21:00)
[2019-06-15] MEDS: DIVALPROEX 500MG *ER* TAB PO SCH (21:00)
[2019-06-15 22:26] VITALS: BP 114/69
[2019-06-16 00:49] VITALS: BP 104/67
[2019-06-16 05:59] LABS: BASO # 0.1 10^3/uL (0.0-0.2); BASO % 0.9 % (0.0-1.0); EOS # 0.3 10^3/uL (0.0-0.5); EOS % 5.4 % (0.0-3.0); HEMATOCRIT 36.6 % (36.0-47.0); HEMOGLOBIN 12.2 g/dl (12.0-15.5); LYMPH # 2.4 10^3/uL (1.5-5.0); LYMPH % 45.7 % (24.0-44.0); MEAN CORPUSCULAR HEMOGLOBIN 31.8 pg (27.0-33.0); MEAN CORPUSCULAR HGB CONC 33.3 g/dl (32.0-36.5); MEAN CORPUSCULAR VOLUME 95.3 fl (80.0-96.0); MONO # 0.4 10^3/uL (0.0-0.8); MONO % 8.2 % (0.0-5.0); NEUTROPHILS # 2.1 10^3/uL (1.5-8.5); NEUTROPHILS % 39.6 % (36.0-66.0); PLATELET COUNT, AUTOMATED 190 10^3/uL (150-450); RED BLOOD COUNT 3.84 10^6/uL (4.00-5.40); WHITE BLOOD COUNT 5.3 10^3/uL (4.0-10.0)
[2019-06-16 06:00] VITALS: BP 122/87
[2019-06-16 06:28] LABS: BLOOD UREA NITROGEN 6 MG/DL (7-18); CALCIUM LEVEL 8.2 MG/DL (8.5-10.1); CARBON DIOXIDE LEVEL 28 MEQ/L (21-32); CHLORIDE LEVEL 108 MEQ/L (98-107); CREATININE FOR GFR 0.67 MG/DL (0.55-1.30); GLOMERULAR FILTRATION RATE > 60.0 (>60); GLUCOSE, FASTING 72 MG/DL (70-100); POTASSIUM SERUM 4.1 MEQ/L (3.5-5.1); SODIUM LEVEL 140 MEQ/L (136-145)
--- NOTE | 2019-06-16 08:52 | CR ---
DATE OF CONSULTATION: 06/15/2019 REFERRING PHYSICIAN: Dr. Janet Ortiz REASON FOR CONSULTATION: Seizures. HISTORY OF PRESENT ILLNESS: The patient is a 33-year-old woman with history of numerous psychiatric problems, cardiac arrest with polymorphic ventricular tachycardia in 2011 in the setting of drug overdose with heroin, who came to [facility] after having two seizures. She had one seizure 3 days ago and one yesterday. They occurred when she was walking down the stairs. She started feeling warm and dizzy, shortly followed by loss of consciousness and seizure-like activity which lasted for 5 minutes, per patient. According to notes by other physicians, there was no postictal phase, and she was immediately coherent afterwards. The patient refused to be evaluated initially but came to hospital today because she was having jerks and twitches of her arms bilaterally. She states that they went away after she was given Depakote in the emergency department. I was contacted from emergency department about this patient and recommended to start Depakote due to her significant psychiatric history as Keppra can make her psychiatric symptoms worse. The patient was also noted to have incomplete right bundle branch block with shallow T-wave inversions between lead V1 and V4 and borderline QT prolongation. Cardiology was consulted. The patient had a seizure in 2012. She was using drugs at that time. The patient's children live with their grandparents. The patient was recently started on Abilify, Prozac and trazodone. She also takes Wellbutrin. She follows with psychiatry. PAST MEDICAL HISTORY: History of cardiac arrest in 2011, status post successful resuscitation with ejection fraction 35% at that time , which significantly improved by 2016 and returned to normal. History of borderline QT prolongation, which was thought to be due to her psychiatric medications. History of polysubstance abuse, including heroin, alcohol and she tried other drugs. History of schizophrenia. Anxiety. Depression. Post-traumatic stress disorder. Hepatitis C. PAST SURGICAL HISTORY: section with hernia repair. FAMILY HISTORY: Significant for coronary artery disease. SOCIAL HISTORY: She abused heroin and tried other drugs and alcohol in past. She states that she is clean now. She is single. Her children are not under her custody and live with their grandmothers. REVIEW OF SYSTEMS: All systems were reviewed and found to be noncontributory except as mentioned in history present illness. PHYSICAL EXAMINATION: Blood pressure 120/71, pulse 70, 96% saturation on room air. Heart: Regular rate and rhythm. Lungs: Clear to auscultation. Abdomen: Soft, nontender, nondistended. No pedal edema. No musculoskeletal abnormality. No meningeal irritation. No tremor, myoclonic jerks or dysmetria. The patient is extremely drowsy and falls asleep while answering questions. She has to be constantly woken up to ask any questions. She is oriented to place, person and time. Normal speech comprehension and repetition except for drowsiness. Extraocular muscles are intact. No facial weakness. Tongue and uvula are midline. 5/5 strength in all four extremities. Deep tendon reflexes are 1+ throughout. Normal sensation. Normal [id number] testing. Visual francis are full to confrontation. Gait could not be tested. ASSESSMENT: 1. Possible generalized tonic-clonic seizures in the setting of starting new psychiatric medications and patient is already on Wellbutrin. 2. History of cardiac arrest in the setting of heroin overdose in 2011 from which the patient was successfully resuscitated. 3. History of seizure in 2013 when she was abusing drugs. 4. Suspected myoclonic jerks earlier today before she was started on Depakote. PLAN: 1. EEG. 2. Seizure precautions including no driving for 6 months. 3. Discontinue Wellbutrin and discuss with psychiatry if they need to modify her psychiatric medications. 4. We can continue Depakote DR 500 mg by mouth twice a day, and we may be able to taper her Depakote off in the future if she does not have recurrent seizures. Her current seizures have happened when new medications were started. Her seizure in 2013 was also related to drug abuse.
[2019-06-16] MEDS: BUPRENORPHINE/NALOXONE 8-2MG SUBLINGUAL TABLET(SUBOXONE) SL SCH ×2 (09:02→12:28)
[2019-06-16] MEDS: ARIPiprazole 2 MG TAB PO SCH (09:02)
[2019-06-16] MEDS: DIVALPROEX 500MG *ER* TAB PO SCH ×2 (09:03→20:50)
[2019-06-16] MEDS: oxyBUTYnin 5 MG TAB PO SCH ×2 (09:03→20:50)
[2019-06-16] MEDS: GABAPENTIN 300 MG CAP PO SCH ×3 (09:03→20:50)
[2019-06-16] MEDS: FLUoxetine 10 MG CAP PO SCH (09:03)
--- NOTE | 2019-06-16 13:08 | IPN ---
DATE: 06/16/2019 Mrs. Galindo has not had any event overnight. I reviewed her telemetry tracing, and there have not been any arrhythmias at all. She feels better than yesterday but still has a lot of headache. No other complaints. Vital signs: Blood pressure 122/87, heart rate in 60s to 80s, sinus rhythm, afebrile, 96% on room air is a saturation. She is alert and oriented, appropriate. Her JVP is not up. Lungs are clear. Heart exam reveals regular rhythm. No gallop. Abdomen is soft, nontender. There is no edema. LABORATORIES: She has essentially normal basic metabolic panel and CBC. An echocardiogram yesterday was normal as well. ASSESSMENT/PLAN: Ms. Galindo is a 33-year-old female who has history of drug abuse but has been sober for over a year. She presented after she had two seizure events at home approximately 2 days apart. There was suspicion for potential arrhythmic etiology, even though no documented arrhythmias were noted. She does have marginal QT prolongation on EKG but preserved left ventricular systolic function. I have to admit that I am skeptical that the presentation is related to arrhythmias. I still believe it is appropriate to continue monitoring at least one more day, but provided no additional arrhythmias are detected, I believe that she can be discharged home from my perspective. She takes numerous centrally active medications, and I think it would be advisable to reduce the polypharmacy. Already, some steps in this direction were taken by the hospitalist team. I do not have any additional recommendations.
[2019-06-16 14:00] VITALS: BP 103/66
--- NOTE | 2019-06-16 14:56 | ECGEPIP ---
[facility] Test Date: 2019-06-16 Pat Name: BIGG SIMS Department: Room: [place] [address] Gender: Female [employer]: TERRIE : 1985 Requested By: Alem Ya Order Number: [id number] Reading MD: Stormy Bazzi Measurements Intervals [place] Rate: 71 P: 23 PA: 165 QRS: 6 QRSD: 100 T: 4 QT: 434 QTc: 472 Interpretive Statements SINUS RHYTHM POSSIBLE RIGHT VENTRICULAR CONDUCTION DELAY MODERATE T-WAVE ABNORMALITY, CONSIDER ANTERIOR ISCHEMIA SIMILAR TO 06/15/19 EXCEPT T WAVE ABN NOW THROUGH V5 Electronically Signed on 06-16-2019 14:56:22 EST by Stormy Bazzi
--- NOTE | 2019-06-16 16:30 | IPNPDOC ---
Subjective Date Seen The patient was seen on 06/16/19. Subjective Chief Complaint/HPI seizure Events since last encounter Pt was seen and examined at bedside. Pt stated that she is feeling better. No new complaint Objective Physical Examination General Exam: Positive: Alert, Cooperative, No Acute Distress Eye Exam: Positive: PERRLA, Conjunctiva & lids normal, EOMI ENT Exam: Positive: Other ENT (abrasions on the bridge of the nose) Neck Exam: Positive: Supple; Negative: JVD, thyromegaly Chest Exam: Positive: Clear to auscultation, Normal air movement Heart Exam: Positive: Rate Normal, Regular Rhythm, Normal S1, Normal S2; Negative: Murmurs, Rubs Telemetry: Positive: No significant arrhythmia Abdomen Exam: Positive: Normal bowel sounds, Soft; Negative: Tenderness, Hepatospenomegaly Extremity Exam: Positive: Normal pulses; Negative: Clubbing, Cyanosis, Edema Skin Exam: Positive: Nl turgor and temperature; Negative: Breakdown, Lesion Neuro Exam: Positive: Normal Speech, Strength at 5/5 X4 ext, Normal Tone, Reflexes 2+ Psych Exam: Positive: Mental status NL, Oriented x 3 Assessment /Plan Assessment 33 y/o F with extensive drug use history alcohol and drugs (cocaine, spice, heroin, bath salts) now on Suboxone with h/o drug overdose and out of hospital cardiac arrest in 2011, Cardiomyopathy after cardiac arrest which recovered, prolonged qt with bradycardia and poly morphic VTs post cardiac arrest which was thought to be related to drugs, extensive psychiatric history, suicidal attempts and was in longterm from last year and was released in january 2019. In longterm she was on Zyprexa, remeron, zoloft. After her release she has been following with psychiatrist and new medications have been started and doses adjusted. Most recent visit was on 06/06/19 when she was started on fluoxetine, trazodone and Abilify. Her Seroquel was stopped. She has been on gabapentin started after release and she wanted her dose to be lowered as she feels it was making her slow and confused. She presented to the ED with 2 episodes of seizure this week one on 06/12 and one on 06/13. She was admitted for evaluation of recurrent seizures. 1. Recurrent seizures followed by persistent myoclonic jerks this was most probably due to being on a combination of Wellbutrin, trazodone and fluoxetine discontinued Wellbutrin neurology recommendation appreciated Depakote ER 500 bid. 2. H/o qtc prolongation Cardiology recommendation dr Ya appreciated Gabapentin dose decreased to 300 mg TID will continue telemetry 3. Psychiatric issues will continue home meds except for Wellbutrin 4. H/O drug and alcohol abuse continue Suboxone. Plan/VTE VTE Prophylaxis Ordered?: Yes VS, I&O, 24H, Fishbone Vital Signs/I&O Vital Signs Date Time Temp Pulse Resp B/P (MAP) Pulse Ox O2 Delivery O2 Flow Rate FiO2 06/16/19 06:00 98.4 64 16 122/87 (99) 96 Room Air I&O- Last 24 Hours up to 6 AM 06/16/19 05:59 Intake Total 160 ml Output Total 425 ml Balance -265 ml Laboratory Data 24H LABS Laboratory Tests 2 06/15/19 09:18: Immature Granulocyte % (Auto) 0.2, Neutrophils (%) (Auto) 49.4, Lymphocytes (%) (Auto) 39.3, Monocytes (%) (Auto) 7.3H, Eosinophils (%) (Auto) 3.0, Basophils (%) (Auto) 0.8, Neutrophils # (Auto) 2.6, Lymphocytes # (Auto) 2.1, Monocytes # (Auto) 0.4, Eosinophils # (Auto) 0.2, Basophils # (Auto) 0.0, Nucleated Red Blood Cells % (auto) 0.0, Anion Gap 7L, Glomerular Filtration Rate > 60.0, Lactic Acid Level 1.9, Calcium Level 8.9, Magnesium Level 1.4L, Total Bilirubin 0.3, Direct Bilirubin < 0.1, Aspartate Amino Transf (AST/SGOT) 38H, Alanine Aminotransferase (ALT/SGPT) 43, Alkaline Phosphatase 77, Ammonia 12, Total Creatine Kinase 66, Creatine Kinase MB < 1.0, Creatine Kinase MB Relative Index 1.52, Troponin I < 0.02, Total Protein 7.2, Albumin 3.4, Albumin/Globulin Ratio 0.89L, Thyroid Stimulating Hormone (TSH) 2.640, Human Chorionic Gonadotropin, Qual NEGATIVE, Salicylates Level 3.0L, Acetaminophen Level < 2.0L, Ethyl Alcohol Level < 0.003 06/15/19 11:26: Bedside Glucose (Misc Panel) 83 06/15/19 13:12: Urine Opiates Screen NEGATIVE, Urine Methadone Screen NEGATIVE, Urine Barbiturates Screen NEGATIVE, Urine Phencyclidine Screen NEGATIVE, Urine Amphetamines Screen NEGATIVE, Urine Benzodiazepines Screen NEGATIVE, Urine Cocaine Metabolite Screen NEGATIVE, Urine Cannabinoids Screen NEGATIVE 06/16/19 05:25: Immature Granulocyte % (Auto) 0.2, Neutrophils (%) (Auto) 39.6, Lymphocytes (%) (Auto) 45.7H, Monocytes (%) (Auto) 8.2H, Eosinophils (%) (Auto) 5.4H, Basophils (%) (Auto) 0.9, Neutrophils # (Auto) 2.1, Lymphocytes # (Auto) 2.4, Monocytes # (Auto) 0.4, Eosinophils # (Auto) 0.3, Basophils # (Auto) 0.1, Nucleated Red Blood Cells % (auto) 0.0, Anion Gap 4L, Glomerular Filtration Rate > 60.0, Calcium Level 8.2L CBC/BMP Laboratory Tests 06/15/19 09:18 06/16/19 05:25 MAXI SCALES MD Jun 16, 2019 08:00
[2019-06-16] MEDS: traZODone 100 MG TAB PO SCH (20:50)
[2019-06-16 22:00] VITALS: BP 106/68
[2019-06-17 05:52] LABS: BASO % 0.9 % (0.0-1.0); EOS # 0.2 10^3/uL (0.0-0.5); EOS % 5.4 % (0.0-3.0); HEMATOCRIT 38.7 % (36.0-47.0); HEMOGLOBIN 12.9 g/dl (12.0-15.5); LYMPH # 2.1 10^3/uL (1.5-5.0); LYMPH % 49.6 % (24.0-44.0); MEAN CORPUSCULAR HEMOGLOBIN 31.9 pg (27.0-33.0); MEAN CORPUSCULAR HGB CONC 33.3 g/dl (32.0-36.5); MEAN CORPUSCULAR VOLUME 95.6 fl (80.0-96.0); MONO # 0.4 10^3/uL (0.0-0.8); MONO % 9.9 % (0.0-5.0); NEUTROPHILS # 1.4 10^3/uL (1.5-8.5); PLATELET COUNT, AUTOMATED 194 10^3/uL (150-450); RED BLOOD COUNT 4.05 10^6/uL (4.00-5.40); WHITE BLOOD COUNT 4.3 10^3/uL (4.0-10.0)
[2019-06-17 06:00] VITALS: BP 108/67
[2019-06-17 06:19] LABS: BLOOD UREA NITROGEN 5 MG/DL (7-18); CALCIUM LEVEL 8.8 MG/DL (8.5-10.1); CARBON DIOXIDE LEVEL 28 MEQ/L (21-32); CHLORIDE LEVEL 104 MEQ/L (98-107); GLOMERULAR FILTRATION RATE > 60.0 (>60); GLUCOSE, FASTING 93 MG/DL (70-100); POTASSIUM SERUM 4.1 MEQ/L (3.5-5.1); SODIUM LEVEL 138 MEQ/L (136-145)
[2019-06-17 07:38] LABS: MAGNESIUM LEVEL 1.5 MG/DL (1.8-2.4)
[2019-06-17] MEDS: GABAPENTIN 300 MG CAP PO SCH ×3 (09:39→20:56)
[2019-06-17] MEDS: oxyBUTYnin 5 MG TAB PO SCH ×2 (09:39→23:23)
[2019-06-17] MEDS: ARIPiprazole 2 MG TAB PO SCH (09:39)
[2019-06-17] MEDS: FLUoxetine 10 MG CAP PO SCH (09:39)
[2019-06-17] MEDS: DIVALPROEX 500MG *ER* TAB PO SCH ×2 (09:39→20:56)
[2019-06-17] MEDS: BUPRENORPHINE/NALOXONE 8-2MG SUBLINGUAL TABLET(SUBOXONE) SL SCH ×2 (09:40→13:02)
[2019-06-17 14:00] VITALS: BP 112/71
--- NOTE | 2019-06-17 16:27 | IPNPDOC ---
Subjective Date Seen The patient was seen on 06/17/19. Subjective Chief Complaint/HPI seizure Events since last encounter No new complaint awaiting EEG Objective Physical Examination General Exam: Positive: Alert, Cooperative, No Acute Distress Eye Exam: Positive: PERRLA, Conjunctiva & lids normal, EOMI ENT Exam: Positive: Mucous membr. moist/pink, Other ENT (abrasions on the bridge of the nose) Neck Exam: Positive: Supple; Negative: JVD, thyromegaly Chest Exam: Positive: Clear to auscultation, Normal air movement Heart Exam: Positive: Rate Normal, Regular Rhythm, Normal S1, Normal S2; Negative: Murmurs, Rubs Telemetry: Positive: No significant arrhythmia Abdomen Exam: Positive: Normal bowel sounds, Soft; Negative: Tenderness, Hepatospenomegaly Extremity Exam: Positive: Normal pulses; Negative: Clubbing, Cyanosis, Edema Skin Exam: Positive: Nl turgor and temperature; Negative: Breakdown, Lesion Neuro Exam: Positive: Normal Speech, Strength at 5/5 X4 ext, Normal Tone, Reflexes 2+ Psych Exam: Positive: Mental status NL, Oriented x 3 Assessment /Plan Assessment 33 y/o F with extensive drug use history alcohol and drugs (cocaine, spice, heroin, bath salts) now on Suboxone with h/o drug overdose and out of hospital cardiac arrest in 2011, Cardiomyopathy after cardiac arrest which recovered, prolonged qt with bradycardia and poly morphic VTs post cardiac arrest which was thought to be related to drugs, extensive psychiatric history, suicidal attempts and was in [facility] from last year and was released in january 2019. In [facility] she was on Zyprexa, remeron, zoloft. After her release she has been following with psychiatrist and new medications have been started and doses adjusted. Most recent visit was on 06/06/19 when she was started on fluoxetine, trazodone and Abilify. Her Seroquel was stopped. She has been on gabapentin started after release and she wanted her dose to be lowered as she feels it was making her slow and confused. She presented to the ED with 2 episodes of seizure this week one on 06/12 and one on 06/13. She was admitted for evaluation of recurrent seizures. Labs and imaging studies reviewed 1. Recurrent seizures followed by persistent myoclonic jerks this was most probably due to being on a combination of Wellbutrin, trazodone and fluoxetine discontinued Wellbutrin neurology recommendation appreciated Depakote ER 500 bid. 2. H/o qtc prolongation Cardiology recommendation dr Ya appreciated Gabapentin dose decreased to 300 mg TID will continue telemetry 3. Psychiatric issues will continue home meds except for Wellbutrin 4. H/O drug and alcohol abuse continue Suboxone. possible discharge tomorrow after EEG. Plan/VTE VTE Prophylaxis Ordered?: Yes VS, I&O, 24H, Fishbone Vital Signs/I&O Vital Signs Date Time Temp Pulse Resp B/P (MAP) Pulse Ox O2 Delivery O2 Flow Rate FiO2 06/17/19 14:00 97.1 80 18 112/71 (85) 95 Room Air I&O- Last 24 Hours up to 6 AM 06/17/19 06:00 Intake Total 1260 ml Output Total 600 ml Balance 660 ml Laboratory Data 24H LABS Laboratory Tests 2 06/17/19 05:27: Immature Granulocyte % (Auto) 0.2, Neutrophils (%) (Auto) 34.0L, Lymphocytes (%) (Auto) 49.6H, Monocytes (%) (Auto) 9.9H, Eosinophils (%) (Auto) 5.4H, Basophils (%) (Auto) 0.9, Neutrophils # (Auto) 1.4L, Lymphocytes # (Auto) 2.1, Monocytes # (Auto) 0.4, Eosinophils # (Auto) 0.2, Basophils # (Auto) 0.0, Nucleated Red Blood Cells % (auto) 0.0, Anion Gap 6L, Glomerular Filtration Rate > 60.0, Calcium Level 8.8, Magnesium Level 1.5L CBC/BMP Laboratory Tests 06/17/19 05:27 MAXI SCALES MD Jun 17, 2019 16:27
[2019-06-17 19:41] VITALS: BP 92/64
[2019-06-17 20:10] VITALS: BP 107/65
[2019-06-17] MEDS: traZODone 100 MG TAB PO SCH (20:56)
[2019-06-17 23:28] VITALS: BP 114/67
[2019-06-18 04:00] VITALS: BP 124/77
[2019-06-18 05:54] LABS: BASO % 0.7 % (0.0-1.0); EOS # 0.3 10^3/uL (0.0-0.5); EOS % 5.5 % (0.0-3.0); HEMOGLOBIN 13.5 g/dl (12.0-15.5); LYMPH # 2.4 10^3/uL (1.5-5.0); LYMPH % 52.6 % (24.0-44.0); MEAN CORPUSCULAR HEMOGLOBIN 31.8 pg (27.0-33.0); MEAN CORPUSCULAR HGB CONC 33.8 g/dl (32.0-36.5); MEAN CORPUSCULAR VOLUME 94.3 fl (80.0-96.0); MONO # 0.3 10^3/uL (0.0-0.8); MONO % 6.3 % (0.0-5.0); NEUTROPHILS # 1.6 10^3/uL (1.5-8.5); NEUTROPHILS % 34.7 % (36.0-66.0); PLATELET COUNT, AUTOMATED 211 10^3/uL (150-450); RED BLOOD COUNT 4.24 10^6/uL (4.00-5.40); WHITE BLOOD COUNT 4.6 10^3/uL (4.0-10.0)
[2019-06-18 06:22] LABS: BLOOD UREA NITROGEN 8 MG/DL (7-18); CALCIUM LEVEL 9.1 MG/DL (8.5-10.1); CARBON DIOXIDE LEVEL 30 MEQ/L (21-32); CHLORIDE LEVEL 103 MEQ/L (98-107); CREATININE FOR GFR 0.61 MG/DL (0.55-1.30); GLOMERULAR FILTRATION RATE > 60.0 (>60); GLUCOSE, FASTING 75 MG/DL (70-100); POTASSIUM SERUM 4.1 MEQ/L (3.5-5.1); SODIUM LEVEL 139 MEQ/L (136-145)
[2019-06-18 06:58] VITALS: BP 100/68
[2019-06-18] MEDS: oxyBUTYnin 5 MG TAB PO SCH ×2 (09:23→20:38)
[2019-06-18] MEDS: DIVALPROEX 500MG *ER* TAB PO SCH ×2 (09:24→20:38)
[2019-06-18] MEDS: GABAPENTIN 300 MG CAP PO SCH ×3 (09:24→20:38)
[2019-06-18] MEDS: ARIPiprazole 2 MG TAB PO SCH (09:25)
[2019-06-18] MEDS: FLUoxetine 10 MG CAP PO SCH (09:25)
[2019-06-18] MEDS: BUPRENORPHINE/NALOXONE 8-2MG SUBLINGUAL TABLET(SUBOXONE) SL SCH ×2 (09:25→12:44)
[2019-06-18 14:00] VITALS: BP 94/64
[2019-06-18] MEDS ORDERED: ACETAMINOPHEN TAB 650MG DOSE (2X325MG) PO PRN (16:15)
--- NOTE | 2019-06-18 17:31 | IPNPDOC ---
Subjective Date Seen The patient was seen on 06/18/19. Subjective Chief Complaint/HPI seizures Events since last encounter Pt c/o mild non specific weakness Objective Physical Examination General Exam: Positive: Alert, Cooperative, No Acute Distress Eye Exam: Positive: PERRLA, Conjunctiva & lids normal, EOMI ENT Exam: Positive: Mucous membr. moist/pink, Other ENT (abrasions on the bridge of the nose) Neck Exam: Positive: Supple Chest Exam: Positive: Clear to auscultation, Normal air movement Heart Exam: Positive: Rate Normal, Regular Rhythm, Normal S1, Normal S2; Negative: Murmurs, Rubs Telemetry: Positive: No significant arrhythmia Abdomen Exam: Positive: Normal bowel sounds, Soft; Negative: Tenderness Skin Exam: Positive: Nl turgor and temperature Neuro Exam: Positive: Normal Speech, Strength at 5/5 X4 ext, Normal Tone, Reflexes 2+ Psych Exam: Positive: Mental status NL, Oriented x 3 Assessment /Plan Assessment 33 y/o F with extensive drug use history alcohol and drugs (cocaine, spice, heroin, bath salts) now on Suboxone with h/o drug overdose and out of hospital cardiac arrest in 2011, Cardiomyopathy after cardiac arrest which recovered, prolonged qt with bradycardia and poly morphic VTs post cardiac arrest which was thought to be related to drugs, extensive psychiatric history, suicidal attempts and was in [facility] from last year and was released in january 2019. In [facility] she was o n Zyprexa, remeron, zoloft. After her release she has been following with psychiatrist and new medications have been started and doses adjusted. Most recent visit was on 06/06/19 when she was started on fluoxetine, trazodone and Abilify. Her Seroquel was stopped. She has been on gabapentin started after release and she wanted her dose to be lowered as she feels it was making her slow and confused. She presented to the ED with 2 episodes of seizure this week one on 06/12 and one on 06/13. She was admitted for evaluation of recurrent seizures. Labs and imaging studies reviewed 1. Recurrent seizures followed by persistent myoclonic jerks this was most probably due to being on a combination of Wellbutrin, trazodone and fluoxetine discontinued Wellbutrin neurology recommendation appreciated Depakote ER 500 bid. will f/u EEG 2. H/o qtc prolongation Cardiology recommendation dr Ya appreciated Gabapentin dose decreased to 300 mg TID will continue telemetry 3. Psychiatric issues will continue home meds except for Wellbutrin 4. H/O drug and alcohol abuse continue Suboxone. Plan/VTE VTE Prophylaxis Ordered?: Yes VS, I&O, 24H, Fishbone Vital Signs/I&O Vital Signs Date Time Temp Pulse Resp B/P (MAP) Pulse Ox O2 Delivery O2 Flow Rate FiO2 06/18/19 14:00 98.0 77 20 94/64 (74) 94 Room Air I&O- Last 24 Hours up to 6 AM 06/18/19 05:59 Intake Total 1140 ml Output Total 900 ml Balance 240 ml Laboratory Data 24H LABS Laboratory Tests 2 06/18/19 05:27: Immature Granulocyte % (Auto) 0.2, Neutrophils (%) (Auto) 34.7L, Lymphocytes (%) (Auto) 52.6H, Monocytes (%) (Auto) 6.3H, Eosinophils (%) (Auto) 5.5H, Basophils (%) (Auto) 0.7, Neutrophils # (Auto) 1.6, Lymphocytes # (Auto) 2.4, Monocytes # (Auto) 0.3, Eosinophils # (Auto) 0.3, Basophils # (Auto) 0.0, Nucleated Red Blood Cells % (auto) 0.0, Anion Gap 6L, Glomerular Filtration Rate > 60.0, Calcium Level 9.1 CBC/BMP Laboratory Tests 06/18/19 05:27 MAXI SCALES MD Jun 18, 2019 17:31
[2019-06-18] MEDS: traZODone 100 MG TAB PO SCH (20:38)
[2019-06-18 22:00] VITALS: BP 100/66
[2019-06-19 06:00] VITALS: BP 107/63
[2019-06-19 06:16] LABS: EOS # 0.3 10^3/uL (0.0-0.5); EOS % 6.5 % (0.0-3.0); HEMATOCRIT 41.5 % (36.0-47.0); HEMOGLOBIN 13.7 g/dl (12.0-15.5); LYMPH # 2.3 10^3/uL (1.5-5.0); LYMPH % 55.9 % (24.0-44.0); MEAN CORPUSCULAR HEMOGLOBIN 31.4 pg (27.0-33.0); MEAN CORPUSCULAR VOLUME 95.2 fl (80.0-96.0); MONO # 0.3 10^3/uL (0.0-0.8); MONO % 8.2 % (0.0-5.0); NEUTROPHILS # 1.2 10^3/uL (1.5-8.5); NEUTROPHILS % 28.2 % (36.0-66.0); PLATELET COUNT, AUTOMATED 203 10^3/uL (150-450); RED BLOOD COUNT 4.36 10^6/uL (4.00-5.40); WHITE BLOOD COUNT 4.2 10^3/uL (4.0-10.0)
[2019-06-19 06:42] LABS: BLOOD UREA NITROGEN 9 MG/DL (7-18); CALCIUM LEVEL 9.1 MG/DL (8.5-10.1); CARBON DIOXIDE LEVEL 30 MEQ/L (21-32); CHLORIDE LEVEL 103 MEQ/L (98-107); CREATININE FOR GFR 0.65 MG/DL (0.55-1.30); GLOMERULAR FILTRATION RATE > 60.0 (>60); GLUCOSE, FASTING 75 MG/DL (70-100); POTASSIUM SERUM 4.2 MEQ/L (3.5-5.1); SODIUM LEVEL 138 MEQ/L (136-145)
--- NOTE | 2019-06-19 07:37 | DS.PDOC ---
Discharge Summary General Date of Admission Jun 15, 2019 at 12:28 Date of Discharge 06/19/19 Primary Care Physician: A Attending Physician: NIKHIL ASHFORD MD Specialist/Consultants Involve: LAILA GARNETT MD Specialist/Consultants Involve Cardiology and neurology Discharge Summary PROCEDURES PERFORMED DURING STAY: EEG. ADMITTING DIAGNOSES: 1. Seizure. DISCHARGE DIAGNOSES: 1. Seizure. COMPLICATIONS/CHIEF COMPLAINT: Seizure. HISTORY OF PRESENT ILLNESS: Patient is a 33 year old female with past medical history extensive drug use history alcohol and drugs (cocaine, spice, heroin, bath salts) now on Suboxone with h/o drug overdose, hx of drug-related hospital cardiac arrest in 2011 with prolonged qt with bradycardia and poly morphic VTs post cardiac arrest, extensive psychiatric history, suicidal attempts resented to [facility] on 06/15/2019 for seizure activity. HOSPITAL COURSE: During her hospital course, neurology was consult and Patient was started on divalproex ER 500mg BID, gabapentin was reduced to 300 mg 3 times a day, and buproprion was DCd. EEG was performed on 06/18/19 revealing, mild diffuse nonspecific cerebral dysfunction consistent with encephalopathy, no epileptiform abnormalities visualized. Cardiology was also consulted due to patients history of QT prolongation, obtain serial ECG and echocardiogram. ECG on 06/15/2019 reveals QTC of 482, 06/16/2019 QTC 472, echo on 11: 19,000, EF of 55-60%, normal echocardiogram. She did not have any additional seizure activity during hospitalization, but does report some generalized twitching. Tolerated medication changes. Spoke with Dr. Garnett prior to dc, continue current medications, follow-up with neurology in 2-4 weeks.. DISCHARGE MEDICATIONS: Please see below. ALLERGIES: Please see below. PHYSICAL EXAMINATION ON DISCHARGE: VITAL SIGNS: Please see below. GENERAL: female in no acute distress, appears sluggish but is able to speak in full sentences HEENT: Normocephalic, atraumatic, moist mucous membranes NECK: No lymphadenopathy CARDIOVASCULAR EXAMINATION: S1, S2, regular rate and rhythm RESPIRATORY EXAMINATION:. Clear to auscultation bilaterally ABDOMINAL EXAMINATION:. Good bowel sounds, nontender to palpation throughout EXTREMITIES:. No edema SKIN:, No rashes NEUROLOGICAL EXAMINATION:. Cranial nerves II through XII intact, upper and lower extremities 5 out of 5 motor, [id number] intact bilaterally, heel to mcmullen intact bilaterally, no dysdiadochokinesia, AO3 PSYCHIATRIC EXAMINATION: Has capacity, flat affect LABORATORY DATA: Please see below. IMAGIN06/15/19 CT maxillofacial reveals no fractures, CT head reveals no acute processes, chest x-ray no acute process, CT cervical neck reveals no fractures, femoral x-ray reveals no fractures. I was unable to visualize images, results above per reports. PROGNOSIS: good ACTIVITY: As tolerated. DIET: Regular diet DISCHARGE PLAN:. Discharge home, follow-up with neurology in 2-4 weeks, follow- up with primary care physician in one to 2 weeks DISPOSITION: home DISCHARGE INSTRUCTIONS: 1. D discharge plan, continueon divalproex ER 500mg BID, gabapentin was reduced to 300 mg 3 times a day, and stop buproprion. ITEMS TO FOLLOWUP ON ON OUTPATIENT: 1. divalproex level. DISCHARGE CONDITION: Stable. TIME SPENT ON DISCHARGE: less than 30 minutes. Vital Signs/I&Os Vital Signs Date Time Temp Pulse Resp B/P (MAP) Pulse Ox O2 Delivery O2 Flow Rate FiO2 06/19/19 06:00 97.8 77 18 107/63 (78) 96 Room Air I&O- Last 24 Hours up to 6 AM 06/19/19 06:00 Intake Total 1210 ml Output Total 0 ml Balance 1210 ml Laboratory Data Labs 24H Laboratory Tests 2 06/19/19 05:28: Immature Granulocyte % (Auto) 0.2, Neutrophils (%) (Auto) 28.2L, Lymphocytes (%) (Auto) 55.9H, Monocytes (%) (Auto) 8.2H, Eosinophils (%) (Auto) 6.5H, Basophils (%) (Auto) 1.0, Neutrophils # (Auto) 1.2L, Lymphocytes # (Auto) 2.3, Monocytes # (Auto) 0.3, Eosinophils # (Auto) 0.3, Basophils # (Auto) 0.0, Nucleated Red Blood Cells % (auto) 0.0, Anion Gap 5L, Glomerular Filtration Rate > 60.0, Calcium Level 9.1 CBC/BMP Laboratory Tests 06/19/19 05:28 Discharge Medications Scheduled Aripiprazole (Abilify) 2 Mg Tablet, 2 MG PO DAILY, (Reported) Buprenorphine HCl/Naloxone HCl (Suboxone 8 mg-2 mg Sl Film) 1 Mis Mis, 1 MIS SL BID, (Reported) TAKES MORNING AND NOON Divalproex Sodium (Depakote ER) 500 Mg Tab.er.24h, 500 MG PO BID Docusate Sodium (Colace) 100 Mg Capsule, 100 MG PO DAILY, (Reported) Fluoxetine Hcl (Fluoxetine HCl) 10 Mg Capsule, 10 MG PO DAILY, (Reported) Gabapentin (Gabapentin) 300 Mg Capsule, 300 MG PO TID Oxybutynin Chloride (Oxybutynin Chloride) 5 Mg Tablet, 5 MG PO BID, (Reported) Trazodone HCl (Trazodone HCl) 100 Mg Tablet, 100 MG PO QHS, (Reported) MAY TAKE A SECOND TABLET IF NEEDED Scheduled PRN Tizanidine HCl (Tizanidine HCl) 4 Mg Tablet, 4 MG PO BID PRN for SPASMS, (Reported) Allergies Coded Allergies: No Known Allergies (Verified , 02/22/18) NIKHIL ASHFORD MD Jun 19, 2019 07:37
[2019-06-19] MEDS: BUPRENORPHINE/NALOXONE 8-2MG SUBLINGUAL TABLET(SUBOXONE) SL SCH ×2 (08:55→13:11)
[2019-06-19] MEDS: FLUoxetine 10 MG CAP PO SCH (08:55)
[2019-06-19] MEDS: ARIPiprazole 2 MG TAB PO SCH (08:55)
[2019-06-19] MEDS: GABAPENTIN 300 MG CAP PO SCH (08:55)
[2019-06-19] MEDS: DIVALPROEX 500MG *ER* TAB PO SCH (08:55)
[2019-06-19] MEDS: oxyBUTYnin 5 MG TAB PO SCH (08:55)
--- NOTE | 2019-06-19 10:57 | EEG ---
DATE OF PROCEDURE: 06/18/2019 REFERRING PHYSICIAN: Dr. Janet Ortiz DIAGNOSIS: Seizure. EEG #: [id number] HISTORY: The patient is a 34-year-old woman with history of seizures, borderline prolonged QT syndrome, status post cardiac arrest from heroin overdose in [id number]. She recently started taking Abilify, trazodone and Prozac and had generalized tonic-clonic seizures. She was also taking Wellbutrin. She was started on Depakote. TECHNICAL DESCRIPTION: This digital EEG was recorded by 21 scalp, ear and two EKG electrodes and was reviewed in bipolar and referential montages following reformatting in 10-20 international electrode placement system. INTERPRETATION: The patient was noted to be in awake and drowsy states during this EEG. Resting awake background rhythm consisted of 7 Hz theta activity measuring 15-40 microvolts in amplitude which was symmetric bilaterally. Stage I and II sleep were reviewed and found to be symmetric bilaterally. Hyperventilation could not be performed. Photic stimulation remained unremarkable. EKG revealed normal sinus rhythm. No focal, lateralizing or epileptiform abnormalities were seen. No relevant clinical activity was noted. CONCLUSION: This EEG in awake, drowsy states, stage I and II sleep is mildly abnormal due to presence of mild generalized slowing consistent with mild diffuse nonspecific cerebral dysfunction such as seen in encephalopathy. No epileptiform abnormalities were seen. Clinical correlation is recommended.
[2019-06-19] MEDS ORDERED: DEPA500T2 PO (12:14)
[2019-06-19] MEDS ORDERED: GABA-843 PO (12:14)
[2019-06-19 13:00] VITALS: BP 110/71
== END 2019-06-19 14:20 | disposition home or self-care (01) | DRG 53 ==
LOC: M ED 08:21 → M ED INP 12:28 → M MSPAV 15:13
PROVIDERS: ADMIT Internal Medicine Nephrology; ATTEND Family Medicine
DX: G40.909 Epilepsy, unspecified, not intractable, without status epilepticus (principal); F13.20 Sedative, hypnotic or anxiolytic dependence, uncomplicated; Z86.74 Personal history of sudden cardiac arrest; B18.2 Chronic viral hepatitis C; F19.21 Other psychoactive substance dependence, in remission; G89.29 Other chronic pain; M79.7 Fibromyalgia; F41.0 Panic disorder [episodic paroxysmal anxiety]; F43.10 Post-traumatic stress disorder, unspecified; F17.210 Nicotine dependence, cigarettes, uncomplicated; T43.295A Adverse effect of other antidepressants, initial encounter; Z79.891 Long term (current) use of opiate analgesic; Z79.899 Other long term (current) drug therapy; Z65.2 Problems related to release from prison; Z91.5 Personal history of self-harm

== ENCOUNTER 2019-08-13 09:24 | Emergency (ER) | payer OTHER ==
[~2019-08-13] VITALS: Ht 154.9 cm; Wt 56.3 kg
[~2019-08-13 09:24] MED LIST changes: +ABIL1TAB13 PO; +COLA100C5 PO; +DEPA500T2 PO; +FLUO10CA15 PO; +TRAZ-257 PO
[2019-08-13 10:11] LABS: BASO % 0.6 % (0.0-1.0); EOS # 0.1 10^3/uL (0.0-0.5); EOS % 2.8 % (0.0-3.0); HEMATOCRIT 36.2 % (36.0-47.0); HEMOGLOBIN 12.4 g/dl (12.0-15.5); LYMPH # 2.5 10^3/uL (1.5-5.0); LYMPH % 48.3 % (24.0-44.0); MEAN CORPUSCULAR HEMOGLOBIN 31.3 pg (27.0-33.0); MEAN CORPUSCULAR HGB CONC 34.3 g/dl (32.0-36.5); MEAN CORPUSCULAR VOLUME 91.4 fl (80.0-96.0); MONO # 0.6 10^3/uL (0.0-0.8); MONO % 11.6 % (0.0-5.0); NEUTROPHILS # 1.9 10^3/uL (1.5-8.5); NEUTROPHILS % 36.5 % (36.0-66.0); PLATELET COUNT, AUTOMATED 187 10^3/uL (150-450); RED BLOOD COUNT 3.96 10^6/uL (4.00-5.40); WHITE BLOOD COUNT 5.1 10^3/uL (4.0-10.0)
[2019-08-13 10:35] LABS: HCG, SERUM QUALITATIVE NEGATIVE (NEGATIVE)
[2019-08-13 10:44] LABS: ACETAMINOPHEN LEVEL < 2.0 UG/ML (10.0-30.0); ALBUMIN 3.2 GM/DL (3.2-5.2); ALT/SGPT 33 U/L (12-78); BILIRUBIN,DIRECT 0.2 MG/DL (0.0-0.2); BILIRUBIN,TOTAL 0.4 MG/DL (0.2-1.0); BLOOD UREA NITROGEN 2 MG/DL (7-18); CALCIUM LEVEL 8.2 MG/DL (8.5-10.1); CARBON DIOXIDE LEVEL 27 MEQ/L (21-32); CHLORIDE LEVEL 104 MEQ/L (98-107); CREATININE FOR GFR 0.59 MG/DL (0.55-1.30); ETHYL ALCOHOL (ETHANOL) < 0.003 % (0.000-0.010); GLOMERULAR FILTRATION RATE > 60.0 (>60); GLUCOSE, FASTING 87 MG/DL (70-100); POTASSIUM SERUM 3.1 MEQ/L (3.5-5.1); SODIUM LEVEL 141 MEQ/L (136-145); TOTAL PROTEIN 6.6 GM/DL (6.4-8.2); VALPROIC ACID (DEPAKOTE) 105.5 UG/ML (50.0-100.0)
--- NOTE | 2019-08-13 12:04 | REP ---
INDICATION: Seizure PROCEDURE: CT head without contrast. COMPARISON STUDIES: CT head 06/15/2019 FINDINGS: No acute bleed or acute large vessel territorial infarct. Ventricles, cisterns and sulci within normal limits. No mass effect or midline shift. No abnormal fluid collections. Paranasal sinuses and mastoid air cells are clear. CONCLUSION: No acute findings. No structural lesions. No significant changes. Electronically Signed by Jordan Pierre MD 08/13/2019 11:56 A
[2019-08-13 12:59] LABS: AMPHETAMINES LEVEL URINE POSITIVE (NEGATIVE); BARBITURATES URINE NEGATIVE (NEGATIVE); BENZODIAZEPINES URINE NEGATIVE (NEGATIVE); CANNABINOIDS URINE NEGATIVE (NEGATIVE); COCAINE METABOLITE URINE NEGATIVE (NEGATIVE); METHADONE URINE NEGATIVE (NEGATIVE); OPIATES URINE NEGATIVE (NEGATIVE); PHENCYCLIDINE URINE NEGATIVE (NEGATIVE)
[2019-08-13 13:45] VITALS: BP 107/68
--- NOTE | 2019-08-13 19:50 | ECGEPIP ---
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
== END 2019-08-13 14:11 | disposition home or self-care (01) ==
LOC: M ED 09:24
DX: R56.9 Unspecified convulsions (principal); F33.9 Major depressive disorder, recurrent, unspecified; F41.9 Anxiety disorder, unspecified; F20.9 Schizophrenia, unspecified; Z79.899 Other long term (current) drug therapy; Z79.891 Long term (current) use of opiate analgesic; F17.210 Nicotine dependence, cigarettes, uncomplicated
CPT/HCPCS: 36415; 70450; 80048; 80076; 80164; 80307; 84443; 84703; 85025; 93005; 99284; G0480

== ENCOUNTER → 2019-08-21 | Outpatient (CLI) | payer OTHER ==
[2019-08-21 13:57] LABS: HEMATOCRIT 38.3 % (36.0-47.0); HEMOGLOBIN 12.8 g/dl (12.0-15.5); MEAN CORPUSCULAR HGB CONC 33.4 g/dl (32.0-36.5); MEAN CORPUSCULAR VOLUME 92.7 fl (80.0-96.0); PLATELET COUNT, AUTOMATED 240 10^3/uL (150-450); RED BLOOD COUNT 4.13 10^6/uL (4.00-5.40); WHITE BLOOD COUNT 4.5 10^3/uL (4.0-10.0)
[2019-08-21 14:22] LABS: ALBUMIN 3.8 GM/DL (3.2-5.2); ALT/SGPT 27 U/L (12-78); BILIRUBIN,TOTAL 0.5 MG/DL (0.2-1.0); BLOOD UREA NITROGEN 6 MG/DL (7-18); CALCIUM LEVEL 9.2 MG/DL (8.5-10.1); CARBON DIOXIDE LEVEL 27 MEQ/L (21-32); CHLORIDE LEVEL 101 MEQ/L (98-107); GLOMERULAR FILTRATION RATE > 60.0 (>60); GLUCOSE, FASTING 86 MG/DL (70-100); POTASSIUM SERUM 3.7 MEQ/L (3.5-5.1); SODIUM LEVEL 137 MEQ/L (136-145); TOTAL PROTEIN 8.1 GM/DL (6.4-8.2)
[2019-08-21 16:22] LABS: CHLAMYDIA DNA AMPLIFICATION NEGATIVE (NEGATIVE); GC DNA AMPLIFICATION NEGATIVE (NEGATIVE)
[2019-08-21 22:27] LABS: HCG, SERUM QUALITATIVE NEGATIVE (NEGATIVE)
[2019-08-22 10:15] LABS: HEPATITIS B SURFACE ANTIGEN NEGATIVE (NEGATIVE)
[2019-08-22 10:37] LABS: HIV 1&2 SCREEN CENTAUR NEGATIVE (NEGATIVE)
[2019-08-22 11:09] LABS: HEPATITIS C VIRUS ABY INDEX > 11.0 INDEX (<0.8)
== END ==
LOC: M LAB 12:42
PROVIDERS: ATTEND Family Medicine
DX: F19.99 Other psychoactive substance use, unspecified with unspecified psychoactive substance-induced disorder (principal)

== ENCOUNTER → 2019-08-31 | Outpatient (REF) | payer OTHER | LOC: M LAB REF 20:03 | PROVIDERS: ATTEND Surgery | DX: L02.413 Cutaneous abscess of right upper limb (principal) ==

== ENCOUNTER 2019-09-08 07:52 | Emergency (ER) | payer OTHER ==
[~2019-09-08] VITALS: Ht 154.9 cm; Wt 72.7 kg
[2019-09-08] MEDS ORDERED: GABA600T4 (08:02)
[2019-09-08] MEDS ORDERED: TOPI50TA9 (08:02)
[2019-09-08 09:09] VITALS: BP 105/56
== END 2019-09-08 09:37 | disposition home or self-care (01) ==
LOC: M ED 07:52
DX: Z48.00 Encounter for change or removal of nonsurgical wound dressing (principal); S41.101A Unspecified open wound of right upper arm, initial encounter; Y92.9 Unspecified place or not applicable; Y93.9 Activity, unspecified; Y99.9 Unspecified external cause status; B18.2 Chronic viral hepatitis C; F19.10 Other psychoactive substance abuse, uncomplicated; F17.200 Nicotine dependence, unspecified, uncomplicated; Z79.2 Long term (current) use of antibiotics; Z79.899 Other long term (current) drug therapy; Z86.74 Personal history of sudden cardiac arrest

== ENCOUNTER 2019-09-09 07:49 | Emergency (ER) | payer OTHER ==
[~2019-09-09 07:49] MED LIST changes: +GABA600T4; +TOPI50TA9
[2019-09-09 08:01] VITALS: BP 104/70
== END 2019-09-09 08:39 | disposition home or self-care (01) ==
LOC: M ED 07:49
DX: Z48.00 Encounter for change or removal of nonsurgical wound dressing (principal); L02.413 Cutaneous abscess of right upper limb; I50.9 Heart failure, unspecified; F19.10 Other psychoactive substance abuse, uncomplicated; F33.9 Major depressive disorder, recurrent, unspecified; F41.9 Anxiety disorder, unspecified; F43.10 Post-traumatic stress disorder, unspecified; F20.9 Schizophrenia, unspecified; K75.89 Other specified inflammatory liver diseases; Z79.899 Other long term (current) drug therapy

== ENCOUNTER 2019-09-15 08:26 | Emergency (ER) | payer OTHER ==
[~2019-09-15] VITALS: Ht 154.9 cm; Wt 55.9 kg
[~2019-09-15 08:26] MED LIST changes: -GABA600T4
[2019-09-15 08:27] VITALS: BP 110/59
[2019-09-15] MEDS ORDERED: OXYB5TAB10 (08:34)
[2019-09-16] MEDS ORDERED: LEXA1TAB PO (08:28)
== END 2019-09-15 09:10 | disposition home or self-care (01) ==
LOC: M ED 08:26
DX: Z48.00 Encounter for change or removal of nonsurgical wound dressing (principal); S41.101A Unspecified open wound of right upper arm, initial encounter; X58.XXXA Exposure to other specified factors, initial encounter; Y92.89 Other specified places as the place of occurrence of the external cause; I50.9 Heart failure, unspecified; K75.9 Inflammatory liver disease, unspecified; F41.9 Anxiety disorder, unspecified; F32.9 Major depressive disorder, single episode, unspecified; F20.9 Schizophrenia, unspecified; Z86.74 Personal history of sudden cardiac arrest; F11.11 Opioid abuse, in remission; Z79.899 Other long term (current) drug therapy

== ENCOUNTER 2019-09-16 08:22 | Emergency (ER) | payer OTHER ==
[~2019-09-16] VITALS: Ht 154.9 cm; Wt 55.5 kg
[2019-09-16 08:22] VITALS: BP 117/72
[~2019-09-16 08:22] MED LIST changes: +OXYB5TAB10
[2019-09-16] MEDS ORDERED: LEXA1TAB PO (08:28)
[2019-09-17] MEDS ORDERED: IBUP-1022 PO (08:07)
[2019-09-17] MEDS ORDERED: BACT800T5 PO (08:07)
== END 2019-09-16 09:07 | disposition home or self-care (01) ==
LOC: M ED 08:22
DX: Z48.00 Encounter for change or removal of nonsurgical wound dressing (principal); S41.101A Unspecified open wound of right upper arm, initial encounter; X58.XXXA Exposure to other specified factors, initial encounter; Y92.89 Other specified places as the place of occurrence of the external cause; I50.9 Heart failure, unspecified; K75.9 Inflammatory liver disease, unspecified; F41.9 Anxiety disorder, unspecified; F32.9 Major depressive disorder, single episode, unspecified; F20.9 Schizophrenia, unspecified; Z86.74 Personal history of sudden cardiac arrest; F11.11 Opioid abuse, in remission; Z79.899 Other long term (current) drug therapy

== ENCOUNTER 2019-09-17 07:59 | Emergency (ER) | payer OTHER ==
[~2019-09-17] VITALS: Ht 154.9 cm; Wt 56.2 kg
[2019-09-17 07:59] VITALS: BP 102/70
[~2019-09-17 07:59] MED LIST changes: +LEXA1TAB PO
[2019-09-17] MEDS ORDERED: IBUP-1022 PO (08:07)
[2019-09-17] MEDS ORDERED: BACT800T5 PO (08:07)
== END 2019-09-17 08:58 | disposition home or self-care (01) ==
LOC: M ED 07:59
DX: Z48.00 Encounter for change or removal of nonsurgical wound dressing (principal)

== ENCOUNTER 2019-11-01 08:41 | Inpatient (IN) | payer MEDICAID, OTHER ==
[~2019-11-01] VITALS: Ht 154.9 cm; Wt 56.7 kg
[~2019-11-01 08:41] MED LIST changes: +BACT800T5 PO; +IBUP-1022 PO
[2019-11-01] MEDS ORDERED: SUBO8MIS SL (09:02)
[2019-11-01 09:17] LABS: HEMATOCRIT 35.3 % (36.0-47.0); HEMOGLOBIN 12.1 g/dl (12.0-15.5); MEAN CORPUSCULAR HEMOGLOBIN 33.7 pg (27.0-33.0); MEAN CORPUSCULAR HGB CONC 34.3 g/dl (32.0-36.5); MEAN CORPUSCULAR VOLUME 98.3 fl (80.0-96.0); PLATELET COUNT, AUTOMATED 166 10^3/uL (150-450); RED BLOOD COUNT 3.59 10^6/uL (4.00-5.40); WHITE BLOOD COUNT 14.4 10^3/uL (4.0-10.0)
[2019-11-01 09:42] LABS: HCG, SERUM QUALITATIVE NEGATIVE (NEGATIVE)
[2019-11-01 09:57] LABS: ACETAMINOPHEN LEVEL < 2.0 UG/ML (10.0-30.0); ALBUMIN 3.9 GM/DL (3.2-5.2); ALT/SGPT 90 U/L (12-78); BILIRUBIN,DIRECT 0.4 MG/DL (0.0-0.2); BILIRUBIN,TOTAL 1.3 MG/DL (0.2-1.0); BLOOD UREA NITROGEN 6 MG/DL (7-18); CALCIUM LEVEL 8.8 MG/DL (8.5-10.1); CARBON DIOXIDE LEVEL 23 MEQ/L (21-32); CHLORIDE LEVEL 102 MEQ/L (98-107); CPK CREATINE PHOSPHOKINASE 434 U/L (26-192); CREATININE FOR GFR 0.61 MG/DL (0.55-1.30); ETHYL ALCOHOL (ETHANOL) < 0.003 % (0.000-0.010); GLOMERULAR FILTRATION RATE > 60.0 (>60); GLUCOSE, FASTING 89 MG/DL (70-100); POTASSIUM SERUM 3.9 MEQ/L (3.5-5.1); SALICYLATE LEVEL 5.8 MG/DL (5.0-30.0); SODIUM LEVEL 135 MEQ/L (136-145); TOTAL PROTEIN 8.4 GM/DL (6.4-8.2)
[2019-11-01 10:32] LABS: AMPHETAMINES LEVEL URINE POSITIVE (NEGATIVE); BARBITURATES URINE NEGATIVE (NEGATIVE); BENZODIAZEPINES URINE NEGATIVE (NEGATIVE); CANNABINOIDS URINE NEGATIVE (NEGATIVE); COCAINE METABOLITE URINE NEGATIVE (NEGATIVE); METHADONE URINE NEGATIVE (NEGATIVE); OPIATES URINE POSITIVE (NEGATIVE); PHENCYCLIDINE URINE NEGATIVE (NEGATIVE)
[2019-11-01] MEDS: MAGIC MOUTHWASH SUSPENSION BTL SSP PRN ×2 (11:02→20:50)
[2019-11-01] MEDS ORDERED: NS 1,000 ML IV ONE ×2 (11:30)
[2019-11-01] MEDS ORDERED: OLANZapine ORAL DISINTEGRATING TAB 5MG PO ONE ×2 (11:45→20:00)
[2019-11-01] MEDS ORDERED: MOM 30ML SUSPENSION UDC PO PRN (15:30)
[2019-11-01] MEDS ORDERED: MAALOX 30 ML SUSP *UDC PO PRN (15:30)
[2019-11-01] MEDS ORDERED: ACETAMINOPHEN TAB 650MG DOSE (2X325MG) PO PRN (15:30)
[2019-11-01] MEDS ORDERED: traZODone 50 MG TAB PO PRN (15:30)
[2019-11-01 16:10] VITALS: BP 108/64
[2019-11-01] MEDS: FOLIC ACID 1 MG TAB PO SCH (18:20)
[2019-11-01] MEDS: THIAMINE 100 MG TAB PO SCH ×2 (18:20→20:14)
[2019-11-01] MEDS: NICOTINE 21MG/24HR 1 EA TRANSDERMAL TD SCH (18:21)
[2019-11-01] MEDS: MULTIVITAMINS/MINERALS THERAP 1 TAB PO SCH (18:21)
[2019-11-01] MEDS: OLANZapine ORAL DISINTEGRATING TAB 5MG PO PRN (18:21)
[2019-11-01] MEDS: OLANZapine ORAL DISINTEGRATING TAB 5MG PO SCH (19:43)
[2019-11-01 20:24] VITALS: BP 128/70
[2019-11-01 21:00] VITALS: BP 120/68
[2019-11-02] MEDS: OLANZapine ORAL DISINTEGRATING TAB 5MG PO PRN (04:28)
[2019-11-02 06:05] VITALS: BP 115/64
[2019-11-02 07:30] VITALS: BP 115/64
[2019-11-02] MEDS: MULTIVITAMINS/MINERALS THERAP 1 TAB PO SCH (08:19)
[2019-11-02] MEDS: THIAMINE 100 MG TAB PO SCH ×2 (08:19→21:00)
[2019-11-02] MEDS: FOLIC ACID 1 MG TAB PO SCH (08:19)
[2019-11-02] MEDS: NICOTINE 21MG/24HR 1 EA TRANSDERMAL TD SCH (08:20)
[2019-11-02] MEDS: OLANZapine ORAL DISINTEGRATING TAB 5MG PO SCH ×2 (08:23→21:00)
--- NOTE | 2019-11-02 10:30 | MHHPEPDOC ---
[facility] History & Physical History and Physical DATE OF ADMISSION: Nov 01, 2019 at 15:22 New Patient Cely Galindo MRN: N/A Date of : N/A Date of Service: 11/02/2019 Chief Complaint "..." History of Present Illness The patient is a 34-year-old woman who presents to [facility] after using methamphetamine and being found mildly psychotic. The patient was admitted after an abundance of caution, however, she had not interacted with this provider during her assessment refusing to get out of bed. Information is extracted from her chart from a previous admission. Review Of Systems The patient does not participate in any review of systems. Past Psychiatric History The patient has reported history of depression last admitted in 2018, reportedly had an overdose at that time of Xanax and Klonopin. Allergies Please see below. Family Psychiatric History The patient has reported in the past having the father with schizophrenia and mother with bipolar disorder and alcoholism. 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 Substance Abuse History The patient has extensive history of polysubstance use going back several years to the age of 13, primary drug traces of heroin, as well as methamphetamine. Medical History Patient has a history of hepatitis C. Mental Status Examination General: Poor hygiene. Speech: Refuses to answer. Thought processes: Unknown. MSK: No signs of tremor. Thought content: Future orientated Abstract reasoning, and computation: Intact Description of associations: Unknown. Description of abnormal or psychotic thoughts: Unknown. Judgment: Unknown. Insight: Unknown. Orientation: Alert, but refuses to answer. Cognition: Unknown. Recent and remote memory: Uknown. Attention span and concentration: Unknown. Fund of knowledge: [facility]. Mood: "..." Affect: Irritated. Diagnoses Unspecified psychotic disorder. Opioid use disorder, severe. Methamphetamine use disorder, severe. Assessment and Plan Unspecified psychiatric disorder: Continue Zyprexa 5 mg daily, monitor for potential improvement. Opioid use disorder/methamphetamine use disorder: [facility] protocol, monitor for signs of withdrawal. Disposition Patient will be retained today further on an involuntary extension tomorrow by inpatient attending if patient has not resolved, otherwise patient should be able to be released once her symptoms have resolved Problem List 1. Altered thoughts. Initial Treatment Plan 1. Patient was admitted on a 9.39 legal status. 2. Complete history was obtained. 3. With patients permission, family will be contacted and database will be expanded. 4. Patients medication regimen will be reviewed and changed accordingly. 5. Patient will be provided with protected environment. 6. Patient will be treated with individual, group, and milieu therapies. 7. Patient will receive supportive psych-education. 8. Discharge planning will commence immediately. 9. Outpatient follow-up treatment will be strongly recommended. 10. The initial treatment plan will focus initially on: Estimated Length Of Stay 3 days. Time Spent 70 minutes with greater than 50% of time spent on counseling/coordination of care. Tuesday Vital Signs Vital Signs Date Time Temp Pulse Resp B/P (MAP) Pulse Ox O2 Delivery O2 Flow Rate FiO2 11/02/19 07:30 78 115/64 11/02/19 06:05 98.1 18 97 Room Air Medications Unable to Obtain Active Prescriptions or Reported Meds Allergies Coded Allergies: No Known Allergies (Verified , 02/22/18) ORI MALONE DO Nov 02, 2019 10:30
--- NOTE | 2019-11-02 10:44 | HPEPDOC ---
General Date of Admission Nov 01, 2019 at 15:22 Date of Service: Nov 02, 2019 Chief Complaint The patient is a 34-year-old female admitted with a reason for visit of Psychosis. Source: Patient Exam Limitations: Clinical conditions History of Present Illness Patient is a 34-year-old female with extensive psychiatric history including schizoaffective disorder, psychosis, PTSD, panic disorder, generalized anxiety disorder, antisocial personality disorder, borderline personality disorder and poly-substance abuse who presents for psychosis at home. Patient is an unreliable historian and only intermittently cooperative with history, therefore part history taken from notes Patient states that she was brought in by police after sports development officer asked her to come to the hospital due to behavior. Per notes, patient brought in by police for increased depression and saying that she doesn't want to "be here" anymore. Patient also with auditory and visual hallucinations. Per patient, just started. Patient endorses having suicidal ideation yesterday, but denies having any plan. Patient denies any homicidal ideation. Patient says that 3 times in the past. She has attempted suicide using drug overdose. She endorses mild abdominal pain and mild dysuria, but denies any other symptoms including fever, chills, chest pain, difficulty breathing, nausea, vomiting, diarrhea, leg pain or swelling. Home Medications Unable to Obtain Active Prescriptions or Reported Meds Allergies Coded Allergies: No Known Allergies (Verified , 02/22/18) Past Medical History Medical History PMHX: Tobacco abuse P Psych Hx: schizoaffective disorder, psychosis, PTSD, panic disorder, generalized anxiety disorder, antisocial personality disorder, borderline personality disorder and poly-substance abuse Surgical History PSHX: 2, hernia surgery Family History Significant Family History: No pertinent family hx Social History * Smoker: current smoker (1 pack per day 15 years), cigarettes Alcohol: Denies Drugs: heroin, other (MDMA, methamphetamines) A-FIB/CHADSVASC A-FIB History Current/History of A-Fib/PAF?: No Review of Systems Other systems 14 point ROS reviewed and pertinent positives and negatives documented as per HPI. All other reviewed ROS negative. Physical Examination Other physical findings Well-developed, well-nourished female in no acute distress, lethargic appearing, intermittently cooperative with exam PERRLA, EOMI, fissured tongue, dried ?Blood on lips, dry mucous membranes Mild lymphadenopathy with tenderness to palpation RRR, normal S1/2, no MRG. CTA B/L, no W/R/R Soft, mild tenderness to palpation diffusely, nondistended. No edema, intact distal pulses. Diffuse maculopapular rash on arms and back, no skin breakdown No focal deficits, normal speech AAO 3, lethargic, withdrawn, intermittently cooperative Vital Signs Vital Signs Date Time Temp Pulse Resp B/P (MAP) Pulse Ox O2 Delivery O2 Flow Rate FiO2 11/02/19 07:30 78 115/64 11/02/19 06:05 98.1 18 97 Room Air Assessment/Plan Patient is a 34-year-old female with extensive psychiatric history including schizoaffective disorder, psychosis, PTSD, panic disorder, generalized anxiety disorder, antisocial personality disorder, borderline personality disorder and poly-substance abuse who presents for psychosis at home. Pt with some lab abnormalities in the setting of illicit drug use very recently so suspect etiology of lab abnormalities is drug use but will cont. to monitor. Patient also with dry mucous membranes and fissure tongue consistent with dehydration. #Psychosis Plan as per primary team (psychiatry) #Lab abnormalities including elevated liver enzymes and creatinine kinase Suspect etiology is drug use. Encourage aggressive oral hydration. Repeat labs. Continue to monitor #Dysuria. will send UA with reflex culture. #Tobacco abuse Recommend nicotine patch. Smoking cessation counseling. #Polysubstance abuse with MDMA, heroin, meth Illicit drug use. Cessation counseling DVT PPX: Low risk, laboratory Disposition: As per primary team (psychiatry) Plan / VTE VTE Prophylaxis Ordered?: No VTE Exclusion Mechanical Proph: Low Risk for VTE VTE Exclusion Pharmacological: At Low Risk for VTE LYNDSAY MULLINS MD Nov 02, 2019 10:44
[2019-11-02 17:34] LABS: ALBUMIN 3.1 GM/DL (3.2-5.2); BILIRUBIN,DIRECT 0.1 MG/DL (0.0-0.2); BILIRUBIN,TOTAL 0.5 MG/DL (0.2-1.0); TOTAL PROTEIN 6.8 GM/DL (6.4-8.2)
[2019-11-02 18:19] VITALS: BP 124/92
[2019-11-02 19:30] VITALS: BP 124/92
[2019-11-03 06:13] VITALS: BP 111/68
[2019-11-03 06:15] VITALS: BP 111/69
[2019-11-03 06:34] LABS: HEMATOCRIT 39.5 % (36.0-47.0); HEMOGLOBIN 13.2 g/dl (12.0-15.5); MEAN CORPUSCULAR HEMOGLOBIN 33.4 pg (27.0-33.0); MEAN CORPUSCULAR HGB CONC 33.4 g/dl (32.0-36.5); PLATELET COUNT, AUTOMATED 185 10^3/uL (150-450); RED BLOOD COUNT 3.95 10^6/uL (4.00-5.40); WHITE BLOOD COUNT 5.1 10^3/uL (4.0-10.0)
[2019-11-03 07:03] LABS: ALBUMIN 3.3 GM/DL (3.2-5.2); BILIRUBIN,DIRECT 0.2 MG/DL (0.0-0.2); BILIRUBIN,TOTAL 0.5 MG/DL (0.2-1.0)
[2019-11-03] MEDS: MULTIVITAMINS/MINERALS THERAP 1 TAB PO SCH (09:00)
[2019-11-03] MEDS: FOLIC ACID 1 MG TAB PO SCH (09:00)
[2019-11-03] MEDS: THIAMINE 100 MG TAB PO SCH ×2 (09:00→20:14)
[2019-11-03] MEDS: OLANZapine ORAL DISINTEGRATING TAB 5MG PO SCH ×2 (09:23→20:14)
[2019-11-03] MEDS: NICOTINE 21MG/24HR 1 EA TRANSDERMAL TD SCH (09:23)
[2019-11-03] MEDS: diphenhydrAMINE 25MG CAP PO PRN ×2 (10:46→20:14)
[2019-11-03] MEDS: MAGIC MOUTHWASH SUSPENSION BTL SSP PRN ×2 (10:47→20:14)
[2019-11-03] MEDS ORDERED: BUPRENORPHINE/NALOXONE 8-2MG SUBLINGUAL TABLET(SUBOXONE) SL ONE (12:00)
[2019-11-03] MEDS ORDERED: TOPIRAMATE (TopAMAX) 25 MG TAB PO ONE (12:00)
[2019-11-03] MEDS ORDERED: DIVALPROEX 500 MG TAB PO ONE (12:00)
--- NOTE | 2019-11-03 12:50 | MHIPN ---
DATE: 11/03/2019 This is a telemedicine video visit. CHIEF COMPLAINT: Pain. SUBJECTIVE: He is seen for followup in the presence of staff. She has had some pain, back aches. Says her lip has been swollen since earlier this week, has been seen by clinicians in the hospital. She has been eating, taking fluids. She says that at times it is a bit painful. She feels somewhat down. Sleep is fair. Vague on suicidal thoughts. She is coming off recent drug use. She also says that she has been off her medicines. Uses Depakote at 500 mg twice a day for seizures, Topamax 50 mg twice a day for migraines and is also on trazodone at 150 mg at night and Suboxone at 8 mg twice a day. She has not had any for possibly a couple of days, though is vague on this. MENTAL STATUS EXAMINATION: Cooperative, a bit unkempt, lower lip seems swollen. No agitation. She is coherent. Affect is restricted in range. Denies any thoughts of harming anyone else. Vague on suicidal thoughts. No firm plans. Her cognition is grossly intact. I cannot detect any psychotic features. She is alert, oriented to time, place and person. Judgment and insight are questionable. ASSESSMENT: 1. Unspecified depressive disorder. The differential diagnosis may include an unspecified psychotic disorder. Some of the symptoms may possibly be because of drug misuse. 2. Methamphetamine use disorder. 3. Opioid use disorder. Currently no psychosis. Looks depressed and has a swollen lower lip. PLAN: I would suggest resuming previous medications, but gradually, start her off on Topamax 50 mg today and 50 mg twice a day tomorrow onward. Depakote is to resume at now 500 mg today, 500 mg twice a day tomorrow onward. We will give her Benadryl as needed to help with her current symptoms and we will ask the hospitalist for advice regarding the swollen lip. Continue to encourage participation on the unit. Further recommendations will be made depending on the clinical picture. Vital signs: Blood pressure 111/69, pulse 74, temperature 97.9. The assessment took 15 minutes.
[2019-11-03 16:16] VITALS: BP 102/60
[2019-11-03] MEDS: traZODone 100 MG TAB PO PRN (20:14)
[2019-11-03] MEDS ORDERED: BUPRENORPHINE/NALOXONE 8-2MG SUBLINGUAL TABLET(SUBOXONE) SL SCH (21:00)
[2019-11-03 22:03] VITALS: BP 102/60
[2019-11-04 06:17] VITALS: BP 118/73
[2019-11-04] MEDS: diphenhydrAMINE 25MG CAP PO PRN (08:30)
[2019-11-04] MEDS: MAGIC MOUTHWASH SUSPENSION BTL SSP PRN ×2 (08:30→20:55)
[2019-11-04] MEDS: OLANZapine ORAL DISINTEGRATING TAB 5MG PO SCH ×2 (08:31→20:54)
[2019-11-04] MEDS: FOLIC ACID 1 MG TAB PO SCH (08:32)
[2019-11-04] MEDS: MULTIVITAMINS/MINERALS THERAP 1 TAB PO SCH (08:32)
[2019-11-04] MEDS: NICOTINE 21MG/24HR 1 EA TRANSDERMAL TD SCH (08:32)
[2019-11-04] MEDS: BUPRENORPHINE/NALOXONE 8-2MG SUBLINGUAL TABLET(SUBOXONE) SL SCH ×2 (08:59→14:56)
[2019-11-04 12:05] LABS: HEMATOCRIT 34.8 % (36.0-47.0); HEMOGLOBIN 11.7 g/dl (12.0-15.5); MEAN CORPUSCULAR HEMOGLOBIN 33.2 pg (27.0-33.0); MEAN CORPUSCULAR HGB CONC 33.6 g/dl (32.0-36.5); MEAN CORPUSCULAR VOLUME 98.9 fl (80.0-96.0); PLATELET COUNT, AUTOMATED 190 10^3/uL (150-450); RED BLOOD COUNT 3.52 10^6/uL (4.00-5.40); WHITE BLOOD COUNT 5.9 10^3/uL (4.0-10.0)
[2019-11-04 16:14] VITALS: BP 104/61
[2019-11-04] MEDS ORDERED: SERTRALINE HCL 25 MG TABLET PO ONE (16:30)
[2019-11-04] MEDS: DIVALPROEX 500 MG TAB PO SCH (20:54)
[2019-11-04] MEDS: TOPIRAMATE (TopAMAX) 25 MG TAB PO SCH (20:54)
[2019-11-04] MEDS: traZODone 100 MG TAB PO PRN (20:54)
[2019-11-04] MEDS ORDERED: BUPRENORPHINE/NALOXONE 8-2MG SUBLINGUAL TABLET(SUBOXONE) SL SCH ×2 (21:00)
--- NOTE | 2019-11-04 21:38 | MHIPN ---
DATE: 11/04/2019 VITAL SIGNS: Blood pressure 104/61, pulse 65, temperature 98.1. CHIEF COMPLAINT: Feels depressed. SUBJECTIVE: She is seen for followup. This is a telemedicine video assessment. She is seen in the presence of staff. Says feels depressed but has slept a bit better, appetite is fair. She is eating better overall. Says her mouth hurts but it is less swollen, the lips and the tongue. Says was quite sad that she could not be with her son, who apparently turned 18 today, whom she says texted that he was not happy with her. MENTAL STATUS EXAMINATION: She is fairly neat. She is generally cooperative. There is no agitation. No psychomotor retardation as such. Affect is restricted but reactive. Vague on suicidal thoughts at present. No homicidal ideas or intents. No evidence of any psychosis. Judgment and insight are compromised. ASSESSMENT: 1. Unspecified depressive disorder. 2. Methamphetamine use disorder. 3. Opioid use disorder. She is clinically somewhat improved, less depressed. No overt psychosis. PLAN: Continue current care and some of her medications have been resumed; Topamax, Depakote. She uses Perforomist for migraines, the latter for seizures. After discussion of the risks, benefits and drawbacks, alternatives, she is started on sertraline and we will titrate it upwards to help target depressive symptoms. She is to be encouraged to participate in activities in the unit. Further recommendations will be made tomorrow when she sees the psychiatrist. The assessment took 15 minutes.
[2019-11-04 21:41] VITALS: BP 104/61
--- NOTE | 2019-11-04 23:27 | IPNPDOC ---
Text Note Date of Service The patient was seen on 11/04/19. NOTE TIME OF SERVICE: 935PM Ms. Pereira is a 34-year-old female with a history of schizoaffective disorder, PTSD, denies anxiety disorder, borderline personality disorder, depression, hep C secondary to IV drug use, and history of QTC prolongation that was admitted to [facility] for management of an unspecified psychotic disorder. S I was asked to evaluate the patient bc of c/o of sores in her mouth and leg swelling for about 1 week. Because of lower extremity edema. She has difficult ies walking. She is also complaining of a chills, dry cough, congestion, shortness of breath and rash on her hands, her feet, her back and her lips. She denies having fevers, difficulty swallowing, chest pain, nausea, vomiting, diarrhea, having any sick contacts or traveling recently. O GEN: well-nourished / well developed/ NAD INTEGUMENT: She has slightly erythematous sandpaperlike rash on the dorsal surface of her hands and her lower back. / unable to visualize the rash on her lips and feet / she does have sores at the lateral aspect of her mouth HEENT: mucus membranes dry/she doesn't have tonsillar erythema CVS: RRR/NMRG / there is trace lower extremity edema LUNGS: lungs are clear to auscultation bilaterally on room air MSK/EXTREMITIES: range of motion intact in all 4 extremities / gait normal NEURO: CN 2-12 are grossly intact / speech is not dysarthric PSYCH: alert and oriented to person place and time/ able to understand and follow all commands A&P 1. URI - follow-up strep and respiratory panel 2. Rash on dorsal surface of the hands, possibly due to viral xanthem. Her CPK was transiently elevated. - f/u repeat CK, if still elevated day time team can consider checking JONATHAN, C3,C4 to screen for autoimmune condition such as dermatomyositis 3. Psychosis/ Polysubstance Abuse - per primary team Thank you for reconsulting us; I will ask to follow up tomorrow. VS,Fishbone, I+O VS, Fishbone, I+O Laboratory Tests 11/04/19 11:40 Vital Signs Date Time Temp Pulse Resp B/P (MAP) Pulse Ox O2 Delivery O2 Flow Rate FiO2 11/04/19 21:41 65 104/61 11/04/19 16:14 98.1 16 11/04/19 06:17 96 Room Air JAMES PAYNE MD Nov 04, 2019 23:27
[2019-11-05 06:00] VITALS: BP 113/73
[2019-11-05 06:01] VITALS: BP 113/73
[2019-11-05 07:27] LABS: CPK CREATINE PHOSPHOKINASE 28 U/L (26-192)
[2019-11-05 08:04] LABS: ALBUMIN 3.1 GM/DL (3.2-5.2); ALT/SGPT 69 U/L (12-78); BILIRUBIN,TOTAL 0.2 MG/DL (0.2-1.0); BLOOD UREA NITROGEN 9 MG/DL (7-18); CALCIUM LEVEL 8.2 MG/DL (8.5-10.1); CARBON DIOXIDE LEVEL 25 MEQ/L (21-32); CHLORIDE LEVEL 111 MEQ/L (98-107); CREATININE FOR GFR 0.55 MG/DL (0.55-1.30); GLOMERULAR FILTRATION RATE > 60.0 (>60); GLUCOSE, FASTING 82 MG/DL (70-100); POTASSIUM SERUM 3.9 MEQ/L (3.5-5.1); SODIUM LEVEL 140 MEQ/L (136-145); TOTAL PROTEIN 6.9 GM/DL (6.4-8.2)
[2019-11-05] MEDS: TOPIRAMATE (TopAMAX) 25 MG TAB PO SCH ×2 (08:55→20:11)
[2019-11-05] MEDS: BUPRENORPHINE/NALOXONE 8-2MG SUBLINGUAL TABLET(SUBOXONE) SL SCH ×2 (08:55→15:45)
[2019-11-05] MEDS: NICOTINE 21MG/24HR 1 EA TRANSDERMAL TD SCH (08:55)
[2019-11-05] MEDS: diphenhydrAMINE 25MG CAP PO PRN (08:55)
[2019-11-05] MEDS: MULTIVITAMINS/MINERALS THERAP 1 TAB PO SCH (08:56)
[2019-11-05] MEDS: OLANZapine ORAL DISINTEGRATING TAB 5MG PO SCH ×2 (08:56→20:11)
[2019-11-05] MEDS: DIVALPROEX 500 MG TAB PO SCH ×2 (08:56→20:11)
[2019-11-05] MEDS: FOLIC ACID 1 MG TAB PO SCH (08:56)
[2019-11-05] MEDS ORDERED: SERTRALINE HCL 50 MG TAB PO SCH (09:00)
--- NOTE | 2019-11-05 11:25 | MHIPNPDOC ---
[facility] Progress Note Progress Note Inpatient Progress Note Cely Galindo MRN: N/A Date of : N/A Date of Service: 11/05/2019 History of Present Illness The patient is a 34-year-old woman who presents to [facility] after using methamphetamine and being found mildly psychotic. The patient was admitted after an abundance of caution, however, she had not interacted with this provider during her assessment refusing to get out of bed. Information is extracted from her chart from a previous admission. Interval History The patient is met with today. She has become more talkative over the weekend and had met with the on-call psychiatrist. She continued to report some depression over the weekend and had been seen in follow up. Her home medications of Depakote and Topamax had been resumed. She had been seen by the on-call hospitalist as she has some unusual rashes and leg swelling as currently being evaluated for that at this time. No behavioral problems over the weekend, has not attended the groups very regularly, continues to report feeling depressed and fatigued, reports doing well on Invega in the past. Had reported having auditory hallucinations prior to presenting. Review Of Systems General: Denies fever or appetite changes Cardiovascular: Denies Chest pain or palpations GI: Denies Nausea, vomiting, or bowel changes Respiratory: Denies shortness of breath or cough Neuro: Denies dizziness, tremors HEENT: Denies any vision changes or headaches Psychotherapy None on this visit. Vital Signs Reviewed. Mental Status Examination General: Tired and fatigued with poor hygiene Speech: Spontaneous and fluid Thought processes: Linear and logical MSK: Smooth and coordinated gait, no signs of tremors or involuntary orofacial movements Thought content: hopelessness Abstract reasoning, and computation: Intact Description of associations: Intact Description of abnormal or psychotic thoughts: Denies any suicidal or homicidal ideation. Denies any auditory or visual hallucinations. Does not appear to be responding to internal stimuli. Does not appear to be endorsing any bizarre or paranoid ideation. Judgment: limited Insight: limited Orientation: Alert and orientated 3 Cognition: Grossly normal Recent and remote memory: Intact Attention span and concentration: Intact Fund of knowledge: Adequate Mood: "bad" Affect: flat and dysphoric Diagnoses Unspecified psychotic disorder. Opioid use disorder, severe. Methamphetamine use disorder, severe. Assessment and Plan Unspecified psychotic disorder: Continue Zyprexa 50 mg daily, Depakote 500 mg BID and her home medical medications. We will add Invega 3 mg and due to history of prolonged QTC disorder, will do EKG tomorrow. Opioid use disorder/methamphetamine use disorder: Continue CIWA protocol, continue home Suboxone. Disposition Patient will be converted to voluntary, continued monitored for improvement of depression, as well as dysphoric and fatigued, hospitalist will continue to follow. Time Spent 15 minutes. Tuesday Vital Signs Vital Signs Date Time Temp Pulse Resp B/P (MAP) Pulse Ox O2 Delivery O2 Flow Rate FiO2 11/05/19 06:01 98.3 62 16 113/73 (86) 96 Room Air Laboratory Data 24H Labs Laboratory Tests 2 11/04/19 11:40: Nucleated Red Blood Cells % (auto) 0.0 11/05/19 06:29: Anion Gap 4L, Glomerular Filtration Rate > 60.0, Calcium Level 8.2L, Total Bilirubin 0.2#, Aspartate Amino Transf (AST/SGOT) 66H, Alanine Aminotransferase (ALT/SGPT) 69, Alkaline Phosphatase 56, Total Creatine Kinase 28, Total Protein 6.9, Albumin 3.1L, Albumin/Globulin Ratio 0.82L CBC/BMP Laboratory Tests 11/04/19 11:40 11/05/19 06:29 Current Medications Current Medications Medications (Trade) Dose Ordered Sig/René Route PRN Reason Start Time Stop Time Status Last Admin Dose Admin Acetaminophen (Tylenol Tab) 650 mg Q6HP PRN PO HEADACHE or DISCOMFORT 11/01/19 15:30 11/02/19 04:28 Al Hydrox/Mg Hydrox/Simethicone (Mylanta) 30 ml Q4HP PRN PO HEARTBURN/INDIGESTION 11/01/19 15:30 Buprenorphine/ Naloxone (Suboxone 8/2mg) 1 tab BID SL 11/03/19 21:00 11/03/19 11:38 DC Buprenorphine/ Naloxone (Suboxone 8/2mg) 1 tab BID SL 11/04/19 21:00 11/03/19 11:28 DC Buprenorphine/ Naloxone (Suboxone 8/2mg) 1 tab BID SL 11/04/19 21:00 11/03/19 11:51 DC Buprenorphine/ Naloxone (Suboxone 8/2mg) 1 tab BID@0900,1500 SL 11/04/19 09:00 11/05/19 08:55 Diphenhydramine HCl (Benadryl) 25 mg TIDP PRN PO ITCHING/SWELLING 11/03/19 10:30 11/05/19 08:55 Divalproex Sodium (Depakote) 500 mg BID PO 11/04/19 21:00 11/05/19 08:56 Folic Acid (Folic Acid) 1 mg DAILY PO 11/01/19 09:00 11/05/19 08:56 Home Med (Med Rec Complete!) ASDIRECTED XX 11/01/19 14:45 11/01/19 14:43 DC Hydroxyzine HCl (Atarax) 25 mg Q4HP PRN PO ANXIETY/AGITATION 11/05/19 11:30 UNV Lidocaine/ Diphenhydr/Alum/ Mg/Simeth (Magic Mouthwash) 5ML TIDP PRN SSP DISCOMFORT 11/01/19 10:45 11/02/19 08:41 DC 11/01/19 11:02 Lidocaine/ Diphenhydr/Alum/ Mg/Simeth (Magic Mouthwash) 5ML TIDP PRN SSP DISCOMFORT 11/02/19 11:00 11/04/19 20:55 Magnesium Hydroxide (Milk Of Magnesia) 30 ml DAILYPRN PRN PO CONSTIPATION 11/01/19 15:30 Multivitamins (Theragram-M) 1 tab DAILY PO 11/01/19 09:00 11/05/19 08:56 Nicotine (Nicoderm Cq 21mg) 1 patch DAILY TD 11/01/19 09:00 11/05/19 08:55 Olanzapine (ZyPREXA ZYDIS) 5 mg BID PO 11/01/19 21:00 11/05/19 08:56 Olanzapine (ZyPREXA ZYDIS) 5 mg Q4HP PRN PO AGITATION 11/01/19 15:30 11/02/19 04:28 Paliperidone (Invega) 3 mg QHS PO 11/05/19 21:00 UNV Sertraline HCl (Zoloft) 50 mg DAILY PO 11/05/19 09:00 11/05/19 11:20 DC 11/05/19 08:55 Sertraline HCl (Zoloft) 50 mg DAILY PO 11/06/19 09:00 UNV Sertraline HCl (Zoloft) 100 mg DAILY PO 11/06/19 09:00 11/05/19 11:23 DC Thiamine HCl (Thiamine HCl) 100 mg BID PO 11/01/19 09:00 11/03/19 21:01 DC 11/03/19 20:14 Topiramate (TopAMAX) 50 mg BID PO 11/04/19 21:00 11/05/19 08:55 Trazodone HCl (Desyrel) 50 mg QHSP PRN PO INSOMNIA 11/01/19 15:30 11/03/19 11:16 DC Trazodone HCl (Desyrel) 100 mg QHSP PRN PO INSOMNIA 11/03/19 11:15 11/04/19 20:54 Allergies Coded Allergies: No Known Allergies (Verified , 02/22/18) ORI MALONE DO Nov 05, 2019 11:25
--- NOTE | 2019-11-05 16:43 | IPNPDOC ---
Date Seen The patient was seen on 11/05/19. Progress Note SUBJECTIVE: Patient seen and examined at bedside. Patient doing well today with no complaints. Still with oral sores improved rash otherwise denies any fevers, chills, chest pain, difficulty breathing, nausea, vomiting, diarrhea, abdominal pain, leg pain. Patient says she still feels as though she has swelling on the bottom of her feet OBJECTIVE PHYSICAL EXAMINATION: VITAL SIGNS: Please see below. Well-developed, well-nourished female in no acute distress, pleasant on interview OP with multiple small sores on lateral aspects of tongue/just under tongue b/l and underneath tongue, no discharge Mild lymphadenopathy with tenderness to palpation RRR, normal S1/2, no MRG. CTA B/L, no W/R/R Soft, nontender, nondistended. No appreciable edema, intact distal pulses. Mild, sandpaper rash, mildly erythematous (improved from prior) No focal deficits, normal speech AAO 3, appropriate, cooperative LABORATORY DATA, IMAGING STUDIES, MICROBIOLOGY: Please see below. ASSESSMENT AND PLAN: Patient is a 34-year-old female with extensive psychiatric history including schizoaffective disorder, psychosis, PTSD, panic disorder, generalized anxiety disorder, antisocial personality disorder, borderline personality disorder and poly-substance abuse who presents for psychosis at home. Pt with some lab abnormalities in the setting of illicit drug use very recently so suspect etiology of lab abnormalities is drug use. Lab abnormalities largely resolved overtime. Medicine reconsulted due to concern for oral sores, rash and LE swelling. Strep and viral swab neg. Awaiting results of G&C throat swab. Rash likely due to viral exanthem as it is improving. Pt does not have any apparent swelling in the LE. Will cont. to monitor for results of G&C throat swab and resolution of rash. 1. URI - strep and resp panel neg. 2. oral sores - will f/u G&C throat swab 2. Rash on dorsal surface of the hands, likely due to viral xanthem. CPK remains normal 3. Psychosis/ Polysubstance Abuse - per primary team Thank you for allowing us to participate in the care of your patient; We will follow along with you. Please call with questions. VS, I&O, 24H, Fishbone Vital Signs/I&O Vital Signs Date Time Temp Pulse Resp B/P (MAP) Pulse Ox O2 Delivery O2 Flow Rate FiO2 11/05/19 06:01 98.3 62 16 113/73 (86) 96 Room Air Laboratory Data 24H LABS Laboratory Tests 2 11/05/19 06:29: Anion Gap 4L, Glomerular Filtration Rate > 60.0, Calcium Level 8.2L, Total Bilirubin 0.2#, Aspartate Amino Transf (AST/SGOT) 66H, Alanine Aminotransferase (ALT/SGPT) 69, Alkaline Phosphatase 56, Total Creatine Kinase 28, Total Protein 6.9, Albumin 3.1L, Albumin/Globulin Ratio 0.82L CBC/BMP Laboratory Tests 11/05/19 06:29 Microbiology Microbiology 11/05/19 Eye/Ear/Nose/Throat Culture, Received Pending 11/05/19 Respiratory Virus Panel (PCR) (KASSANDRA) - Final, Complete 11/05/19 Group A Streptococcus Screen (KASSANDRA) - Final, Complete LYNDSAY MULLINS MD Nov 05, 2019 16:43
--- NOTE | 2019-11-05 18:38 | ECGEPIP ---
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
[2019-11-05 18:46] VITALS: BP 121/66
[2019-11-05] MEDS: PALIPERIDONE 3 MG ER TAB (INVEGA) PO SCH (20:11)
[2019-11-05] MEDS: MAGIC MOUTHWASH SUSPENSION BTL SSP PRN (20:11)
[2019-11-06 06:00] VITALS: BP 98/65
[2019-11-06] MEDS ORDERED: SERTRALINE HCL 50 MG TAB PO SCH (09:00)
[2019-11-06] MEDS: SERTRALINE HCL 50 MG TAB PO SCH (09:14)
[2019-11-06] MEDS: OLANZapine ORAL DISINTEGRATING TAB 5MG PO SCH ×2 (09:14→20:16)
[2019-11-06] MEDS: MULTIVITAMINS/MINERALS THERAP 1 TAB PO SCH (09:14)
[2019-11-06] MEDS: FOLIC ACID 1 MG TAB PO SCH (09:14)
[2019-11-06] MEDS: DIVALPROEX 500 MG TAB PO SCH ×2 (09:14→20:16)
[2019-11-06] MEDS: diphenhydrAMINE 25MG CAP PO PRN ×2 (09:15→14:06)
[2019-11-06] MEDS: TOPIRAMATE (TopAMAX) 25 MG TAB PO SCH ×2 (09:15→20:16)
[2019-11-06] MEDS: BUPRENORPHINE/NALOXONE 8-2MG SUBLINGUAL TABLET(SUBOXONE) SL SCH ×2 (09:16→15:08)
[2019-11-06] MEDS: NICOTINE 21MG/24HR 1 EA TRANSDERMAL TD SCH (09:18)
--- NOTE | 2019-11-06 10:12 | MHIPNPDOC ---
[facility] Progress Note Progress Note Inpatient Progress Note Cely Galindo MRN: N/A Date of : N/A Date of Service: 11/06/2019 History of Present Illness The patient is a 34-year-old woman who presents to [facility] after using methamphetamine and being found mildly psychotic. The patient was admitted after an abundance of caution, however, she had not interacted with this provider during her assessment refusing to get out of bed. Information is extracted from her chart from a previous admission. Interval History The patient was met with, she reports still having difficulties with "voices" and difficulty trusting others, her memory appears to be somewhat lacks as she does not remember that conversation from yesterday until reminded. The patient reports still feeling depressed, despondent and generally uninterested in things. She reports she is tolerating her medications fine without any particular side effects, medicine is still working up her various rashes and mouth sores, but no significant findings have been made. The patient generally reports that she does not feel much improved. Staff report that she does not attend groups and generally does engage much with treatment. Review Of Systems General: Denies fever or appetite changes Cardiovascular: Denies Chest pain or palpations GI: Denies Nausea, vomiting, or bowel changes Respiratory: Denies shortness of breath or cough Neuro: Denies dizziness, tremors HEENT: Reports some headaches Psychotherapy None on this visit. Vital Signs Reviewed. Mental Status Examination General: Tired and fatigued with poor hygiene Speech: Spontaneous and fluid Thought processes: Linear and logical MSK: Smooth and coordinated gait, no signs of tremors or involuntary orofacial movements Thought content: hopelessness Abstract reasoning, and computation: Intact Description of associations: Intact Description of abnormal or psychotic thoughts: Denies any suicidal or homicidal ideation. Denies any auditory or visual hallucinations. Does not appear to be responding to internal stimuli. Does not appear to be endorsing any bizarre or paranoid ideation. Judgment: limited Insight: limited Orientation: Alert and orientated 3 Cognition: Grossly normal Recent and remote memory: Intact Attention span and concentration: Intact Fund of knowledge: Adequate Mood: "bad" Affect: flat and dysphoric Diagnoses Unspecified psychotic disorder. Opioid use disorder, severe. Methamphetamine use disorder, severe. Assessment and Plan Unspecified psychotic disorder: Conintue sertraline 50 mg daily, Depakote 500 mg BID and home medical medications as well as Invega 3 mg daily. QTc is 493, will repeat EKG tomorrow. No signs of cardiovascular symptoms. We will consult cardiology if unable to tolerate. Opioid use disorder/methamphetamine use disorder: Continue CIWA protocol, continue home Suboxone. Disposition Patient will be retained on a further admission due to her severely impairing psychosis and depression. Time Spent 15 minutes. Tuesday Vital Signs Vital Signs Date Time Temp Pulse Resp B/P (MAP) Pulse Ox O2 Delivery O2 Flow Rate FiO2 11/06/19 06:00 97.2 62 16 98/65 (76) 98 Room Air Current Medications Current Medications Medications (Trade) Dose Ordered Sig/René Route PRN Reason Start Time Stop Time Status Last Admin Dose Admin Acetaminophen (Tylenol Tab) 650 mg Q6HP PRN PO HEADACHE or DISCOMFORT 11/01/19 15:30 11/02/19 04:28 Al Hydrox/Mg Hydrox/Simethicone (Mylanta) 30 ml Q4HP PRN PO HEARTBURN/INDIGESTION 11/01/19 15:30 Buprenorphine/ Naloxone (Suboxone 8/2mg) 1 tab BID SL 11/03/19 21:00 11/03/19 11:38 DC Buprenorphine/ Naloxone (Suboxone 8/2mg) 1 tab BID SL 11/04/19 21:00 11/03/19 11:28 DC Buprenorphine/ Naloxone (Suboxone 8/2mg) 1 tab BID SL 11/04/19 21:00 11/03/19 11:51 DC Buprenorphine/ Naloxone (Suboxone 8/2mg) 1 tab BID@0900,1500 SL 11/04/19 09:00 11/06/19 09:16 Diphenhydramine HCl (Benadryl) 25 mg TIDP PRN PO ITCHING/SWELLING 11/03/19 10:30 11/06/19 09:15 Divalproex Sodium (Depakote) 500 mg BID PO 11/04/19 21:00 11/06/19 09:14 Folic Acid (Folic Acid) 1 mg DAILY PO 11/01/19 09:00 11/06/19 09:14 Home Med (Med Rec Complete!) ASDIRECTED XX 11/01/19 14:45 11/01/19 14:43 DC Hydroxyzine HCl (Atarax) 25 mg Q4HP PRN PO ANXIETY/AGITATION 11/05/19 11:30 Lidocaine/ Diphenhydr/Alum/ Mg/Simeth (Magic Mouthwash) 5ML TIDP PRN SSP DISCOMFORT 11/01/19 10:45 11/02/19 08:41 DC 11/01/19 11:02 Lidocaine/ Diphenhydr/Alum/ Mg/Simeth (Magic Mouthwash) 5ML TIDP PRN SSP DISCOMFORT 11/02/19 11:00 11/05/19 20:11 Magnesium Hydroxide (Milk Of Magnesia) 30 ml DAILYPRN PRN PO CONSTIPATION 11/01/19 15:30 Multivitamins (Theragram-M) 1 tab DAILY PO 11/01/19 09:00 11/06/19 09:14 Nicotine (Nicoderm Cq 21mg) 1 patch DAILY TD 11/01/19 09:00 11/06/19 09:18 Olanzapine (ZyPREXA ZYDIS) 5 mg BID PO 11/01/19 21:00 11/06/19 09:14 Olanzapine (ZyPREXA ZYDIS) 5 mg Q4HP PRN PO AGITATION 11/01/19 15:30 11/02/19 04:28 Paliperidone (Invega) 3 mg QHS PO 11/05/19 21:00 11/05/19 20:11 Sertraline HCl (Zoloft) 50 mg DAILY PO 11/05/19 09:00 11/05/19 11:20 DC 11/05/19 08:55 Sertraline HCl (Zoloft) 50 mg DAILY PO 11/06/19 09:00 11/06/19 09:14 Sertraline HCl (Zoloft) 100 mg DAILY PO 11/06/19 09:00 11/05/19 11:23 DC Thiamine HCl (Thiamine HCl) 100 mg BID PO 11/01/19 09:00 11/03/19 21:01 DC 11/03/19 20:14 Topiramate (TopAMAX) 50 mg BID PO 11/04/19 21:00 11/06/19 09:15 Trazodone HCl (Desyrel) 50 mg QHSP PRN PO INSOMNIA 11/01/19 15:30 11/03/19 11:16 DC Trazodone HCl (Desyrel) 100 mg QHSP PRN PO INSOMNIA 11/03/19 11:15 11/04/19 20:54 Allergies Coded Allergies: No Known Allergies (Verified , 02/22/18) ORI MALONE DO Nov 06, 2019 10:12
[2019-11-06] MEDS: hydrOXYzine 25 MG TAB PO PRN ×2 (10:58→18:27)
[2019-11-06 18:26] VITALS: BP 117/69
[2019-11-06] MEDS: traZODone 100 MG TAB PO PRN (20:16)
[2019-11-06] MEDS: PALIPERIDONE 3 MG ER TAB (INVEGA) PO SCH (20:16)
[2019-11-07 06:27] VITALS: BP 98/56
--- NOTE | 2019-11-07 09:40 | ECGEPIP ---
[facility] Test Date: 2019-11-07 Pat Name: BIGG SIMS Department: Room: [place] [address] Gender: Female Title Search Manager: MARK : 1985 Requested By: ORI MALONE Order Number: [id number] Reading MD: Dilip Willard Measurements Intervals [place] Rate: 78 P: 43 DE: 140 QRS: 22 QRSD: 88 T: 5 QT: 400 QTc: 456 Interpretive Statements SINUS RHYTHM POSSIBLE RIGHT VENTRICULAR CONDUCTION DELAY NONSPECIFIC T-WAVE ABNORMALITY with associated QT prolongation No change from 11/05/19. Electronically Signed on 11-07-2019 9:40:40 EDT by Dilip Willard
[2019-11-07] MEDS: DIVALPROEX 500 MG TAB PO SCH ×2 (09:46→21:09)
[2019-11-07] MEDS: OLANZapine ORAL DISINTEGRATING TAB 5MG PO SCH ×2 (09:46→20:14)
[2019-11-07] MEDS: SERTRALINE HCL 50 MG TAB PO SCH (09:46)
[2019-11-07] MEDS: MULTIVITAMINS/MINERALS THERAP 1 TAB PO SCH (09:46)
[2019-11-07] MEDS: FOLIC ACID 1 MG TAB PO SCH (09:46)
[2019-11-07] MEDS: NICOTINE 21MG/24HR 1 EA TRANSDERMAL TD SCH (09:46)
[2019-11-07] MEDS: BUPRENORPHINE/NALOXONE 8-2MG SUBLINGUAL TABLET(SUBOXONE) SL SCH ×2 (09:46→15:06)
[2019-11-07] MEDS: TOPIRAMATE (TopAMAX) 25 MG TAB PO SCH ×2 (09:48→20:14)
--- NOTE | 2019-11-07 10:03 | MHIPNPDOC ---
[facility] Progress Note Progress Note Inpatient Progress Note Cely Galindo MRN: N/A Date of : N/A Date of Service: 11/07/2019 History of Present Illness The patient is a 34-year-old woman who presents to [facility] after using methamphetamine and being found mildly psychotic. The patient was admitted after an abundance of caution, however, she had not interacted with this provider during her assessment refusing to get out of bed. Information is extracted from her chart from a previous admission. Interval History The patient was met with today. She reports she is doing better, the voices are improved and that she is doing better with her suicidal ideation. Her QTc today is lower at 456 and she is tolerating the medication while. She does not attended groups and as primarily focused on her Suboxone prescription and generally is uninterested in treatment. She has not been demonstrating any impairment her ability to care for self and generally otherwise is doing well, no complaints today. Review Of Systems General: Denies fever or appetite changes Cardiovascular: Denies Chest pain or palpations GI: Denies Nausea, vomiting, or bowel changes Respiratory: Denies shortness of breath or cough Neuro: Denies dizziness, tremors HEENT: Reports some headaches Psychotherapy None on this visit. Vital Signs Reviewed. Mental Status Examination General: Better hygiene Speech: Spontaneous and fluid Thought processes: Linear and logical MSK: Smooth and coordinated gait, no signs of tremors or involuntary orofacial movements Thought content: No hopelessness. Abstract reasoning, and computation: Intact Description of associations: Intact Description of abnormal or psychotic thoughts: Denies any suicidal or homicidal ideation. Denies any auditory or visual hallucinations. Does not appear to be responding to internal stimuli. Does not appear to be endorsing any bizarre or paranoid ideation. Judgment: Improved. Insight: Chronically, limited. Orientation: Alert and orientated 3 Cognition: Grossly normal Recent and remote memory: Intact Attention span and concentration: Intact Fund of knowledge: Adequate Mood: "okay" Affect: More reactive. Diagnoses Unspecified psychotic disorder. Opioid use disorder, severe. Methamphetamine use disorder, severe. Assessment and Plan Unspecified psychotic disorder: Conintue sertraline and Invega 3 mg, QTc is 456. No need to continue. Denies any cardiology/cardiovascular side effects at this time. Opioid use disorder/methamphetamine use disorder: Continue CIWA protocol, continue home Suboxone. Disposition Discharge tomorrow, patient is improving. Time Spent 15 minutes. Tuesday Vital Signs Vital Signs Date Time Temp Pulse Resp B/P (MAP) Pulse Ox O2 Delivery O2 Flow Rate FiO2 11/07/19 06:27 97.6 64 12 98/56 (70) 97 Room Air Laboratory Data 24H Labs Laboratory Tests 2 11/06/19 12:41: Current Medications Current Medications Medications (Trade) Dose Ordered Sig/René Route PRN Reason Start Time Stop Time Status Last Admin Dose Admin Acetaminophen (Tylenol Tab) 650 mg Q6HP PRN PO HEADACHE or DISCOMFORT 11/01/19 15:30 11/02/19 04:28 Al Hydrox/Mg Hydrox/Simethicone (Mylanta) 30 ml Q4HP PRN PO HEARTBURN/INDIGESTION 11/01/19 15:30 Buprenorphine/ Naloxone (Suboxone 8/2mg) 1 tab BID SL 11/03/19 21:00 11/03/19 11:38 DC Buprenorphine/ Naloxone (Suboxone 8/2mg) 1 tab BID SL 11/04/19 21:00 11/03/19 11:28 DC Buprenorphine/ Naloxone (Suboxone 8/2mg) 1 tab BID SL 11/04/19 21:00 11/03/19 11:51 DC Buprenorphine/ Naloxone (Suboxone 8/2mg) 1 tab BID@0900,1500 SL 11/04/19 09:00 11/07/19 09:46 Diphenhydramine HCl (Benadryl) 25 mg TIDP PRN PO ITCHING/SWELLING 11/03/19 10:30 11/06/19 14:06 Divalproex Sodium (Depakote) 500 mg BID PO 11/04/19 21:00 11/07/19 09:46 Folic Acid (Folic Acid) 1 mg DAILY PO 11/01/19 09:00 11/07/19 09:46 Home Med (Med Rec Complete!) ASDIRECTED XX 11/01/19 14:45 11/01/19 14:43 DC Hydroxyzine HCl (Atarax) 25 mg Q4HP PRN PO ANXIETY/AGITATION 11/05/19 11:30 11/06/19 18:27 Lidocaine/ Diphenhydr/Alum/ Mg/Simeth (Magic Mouthwash) 5ML TIDP PRN SSP DISCOMFORT 11/01/19 10:45 11/02/19 08:41 DC 11/01/19 11:02 Lidocaine/ Diphenhydr/Alum/ Mg/Simeth (Magic Mouthwash) 5ML TIDP PRN SSP DISCOMFORT 11/02/19 11:00 11/05/19 20:11 Magnesium Hydroxide (Milk Of Magnesia) 30 ml DAILYPRN PRN PO CONSTIPATION 11/01/19 15:30 Multivitamins (Theragram-M) 1 tab DAILY PO 11/01/19 09:00 11/07/19 09:46 Nicotine (Nicoderm Cq 21mg) 1 patch DAILY TD 11/01/19 09:00 11/07/19 09:46 Olanzapine (ZyPREXA ZYDIS) 5 mg BID PO 11/01/19 21:00 11/07/19 09:46 Olanzapine (ZyPREXA ZYDIS) 5 mg Q4HP PRN PO AGITATION 11/01/19 15:30 11/02/19 04:28 Paliperidone (Invega) 3 mg QHS PO 11/05/19 21:00 11/06/19 20:16 Sertraline HCl (Zoloft) 50 mg DAILY PO 11/05/19 09:00 11/05/19 11:20 DC 11/05/19 08:55 Sertraline HCl (Zoloft) 50 mg DAILY PO 11/06/19 09:00 11/07/19 09:46 Sertraline HCl (Zoloft) 100 mg DAILY PO 11/06/19 09:00 11/05/19 11:23 DC Thiamine HCl (Thiamine HCl) 100 mg BID PO 11/01/19 09:00 11/03/19 21:01 DC 11/03/19 20:14 Topiramate (TopAMAX) 50 mg BID PO 11/04/19 21:00 11/07/19 09:48 Trazodone HCl (Desyrel) 50 mg QHSP PRN PO INSOMNIA 11/01/19 15:30 11/03/19 11:16 DC Trazodone HCl (Desyrel) 100 mg QHSP PRN PO INSOMNIA 11/03/19 11:15 11/06/19 20:16 Allergies Coded Allergies: No Known Allergies (Verified , 02/22/18) ORI MALONE DO Nov 07, 2019 10:03
[2019-11-07] MEDS: hydrOXYzine 25 MG TAB PO PRN ×2 (11:27→20:14)
[2019-11-07] MEDS ORDERED: DOCUSATE SODIUM 100 MG CAP PO PRN (12:00)
[2019-11-07 15:54] VITALS: BP 119/69
[2019-11-07] MEDS: PALIPERIDONE 3 MG ER TAB (INVEGA) PO SCH (20:14)
[2019-11-07] MEDS: traZODone 100 MG TAB PO PRN (20:14)
[2019-11-08 06:27] VITALS: BP 106/55
[2019-11-08] MEDS: FOLIC ACID 1 MG TAB PO SCH (08:05)
[2019-11-08] MEDS: NICOTINE 21MG/24HR 1 EA TRANSDERMAL TD SCH (08:05)
[2019-11-08] MEDS: TOPIRAMATE (TopAMAX) 25 MG TAB PO SCH (08:06)
[2019-11-08] MEDS: DIVALPROEX 500 MG TAB PO SCH (08:06)
[2019-11-08] MEDS: SERTRALINE HCL 50 MG TAB PO SCH (08:08)
[2019-11-08] MEDS: BUPRENORPHINE/NALOXONE 8-2MG SUBLINGUAL TABLET(SUBOXONE) SL SCH ×2 (08:09→14:14)
[2019-11-08] MEDS: OLANZapine ORAL DISINTEGRATING TAB 5MG PO SCH (08:09)
[2019-11-08] MEDS: MULTIVITAMINS/MINERALS THERAP 1 TAB PO SCH (08:10)
--- NOTE | 2019-11-08 09:11 | MHDSPDOC ---
[facility] Discharge Summary Discharge Summary DATE OF ADMISSION: Nov 01, 2019 at 15:22 DATE OF DISCHARGE: 11/08/19 Discharge Cely Galindo MRN: N/A Date of : N/A Date of Service: 11/08/2019 Diagnoses Unspecified psychotic disorder. Opioid use disorder, severe. Methamphetamine use disorder, severe. History of Present Illness The patient is a 34-year-old woman who presents to [facility] after using methamphetamine and being found mildly psychotic. The patient was admitted after an abundance of caution, however, she had not interacted with this provider during her assessment refusing to get out of bed. Information is extracted from her chart from a previous admission. Consultants Involved Hospice consult-examined weather Depakote useful. Reports hair loss, neurology consult had been considered from hospice, however, patient left before consults could be completed, patient arranged for follow up for consideration of her Depakote. Her Depakote level was normal on screening. Treatment and Progress On The Unit The patient was admitted to the inpatient mental health unit where she did have some continued paranoia. She has congenital QTc and had been restarted on her home sertraline and her migraine/seizure treatments of Depakote and Topamax. She was additionally resumed on her Suboxone for her opioid addiction. The patient was started on Invega 3 mg after discussion of the risks and benefits, monitoring of the QTc revealed that her QTc had lowered from 497 to 456 on the combination of medications, she reported she felt better and that she had done well in the past on Invega and wanted to continue on it. The patient attended groups and improved slowly, but surely over the next coming days. She did have some suicidal thoughts that rapidly diminished and had requested discharge after they had resolved. Discharge Assessment 34-year-old woman with likely substance-induced psychosis and potentially some underlying PTSD versus borderline characteristics is admitted for psychosis, started on sertraline as her home dose and augmented with Invega 3 mg as she has previously good responses. She reports that she is able to tolerate it well. The patient at the time of discharge did not meet criteria for involuntary admission/extension due to having a normal mental status exam, fair insight into the situation, They are engaged in the discharge process, as well as being friendly and amenable in behavioral control and havent been engaging in any observed concerning behavior or ideation within the last 24 hours. They decline voluntary extension/admission at this time and must be discharged in good sarha, as Im unable to make a case for holding the patient against their will. They may have historical risk factors of admissions and other interactions with psychiatry however, those are not modifiable from a clinical perspective. The patient will need to be discharged in good sahra. Mental Status Examination General: Well dressed with good hygiene Speech: Spontaneous and fluid Thought processes: Linear and logical MSK: Smooth and coordinated gait, no signs of tremors or involuntary orofacial movements Thought content: Future orientated Abstract reasoning, and computation: Intact Description of associations: Intact Description of abnormal or psychotic thoughts: Denies any suicidal or homicidal ideation. Denies any auditory or visual hallucinations. Does not appear to be responding to internal stimuli. Does not appear to be endorsing any bizarre or paranoid ideation. Judgment: Improved. Insight: Improved. Orientation: Alert and orientated 3 Cognition: Grossly normal Recent and remote memory: Intact Attention span and concentration: Intact Fund of knowledge: Adequate Mood: "okay" Affect: Euthymic with a full range Follow Up The social work team worked during the predischarge meeting in order to evaluate for further issues of lethality address them fully before discharge. They worked on safety planning with the patient's family members in order to ensure that the patient will have a safe and effective discharge. Time Spent The amount of time spent in the coordination of care for this patient was approximately 45 minutes. Vital Signs/I&Os Vital Signs Date Time Temp Pulse Resp B/P (MAP) Pulse Ox O2 Delivery O2 Flow Rate FiO2 11/08/19 06:27 96.9 53 16 106/55 (72) 97 Room Air Laboratory Data Labs 24H Laboratory Tests 2 11/07/19 20:02: Valproic Acid (Depakene) Level 66.9 Microbiology Microbiology 11/05/19 Eye/Ear/Nose/Throat Culture - Final, Complete 11/05/19 Respiratory Virus Panel (PCR) (KASSANDRA) - Final, Complete 11/05/19 Group A Streptococcus Screen (KASSANDRA) - Final, Complete Medications Scheduled Buprenorphine HCl/Naloxone HCl (Buprenorphin-Naloxon 8-2 mg Sl) 1 Each Tab.subl, 1 TAB SL BID@0900,1500 for opioid for 7 Days, #14 Divalproex Sodium (Depakote) 500 Mg Tablet.dr, 500 MG PO BID for sz for 7 Days, #14 Nicotine (Nicotine Patch) 21 Mg Patch.td24, 1 PATCH TD DAILY for tobacco for 30 Days, #30 Paliperidone (Paliperidone ER) 3 Mg Tab.er.24, 3 MG PO QHS for thoughts for 7 Days, #7 Sertraline HCl (Sertraline HCl) 50 Mg Tablet, 50 MG PO DAILY for mood for 7 Days, #7 Topiramate (Topamax) 25 Mg Tablet, 50 MG PO BID for FORD for 7 Days, #28 Scheduled PRN Trazodone HCl (Trazodone HCl) 100 Mg Tablet, 100 MG PO QHSP PRN for INSOMNIA for 7 Days, #7 Allergies Coded Allergies: No Known Allergies (Verified , 02/22/18) ORI MALONE DO Nov 08, 2019 09:11
[2019-11-08] MEDS ORDERED: TOPA1TAB PO (10:28)
[2019-11-08] MEDS ORDERED: SERT50TA29 PO (10:28)
[2019-11-08] MEDS ORDERED: NICO21PAT TD (10:28)
[2019-11-08] MEDS ORDERED: BUPR1SUB5 SL (10:28)
[2019-11-08] MEDS ORDERED: DEPA1TAB3 PO (10:28)
[2019-11-08] MEDS ORDERED: PALI1TAB2 PO (10:28)
[2019-11-08] MEDS ORDERED: TRAZ-257 PO (10:28)
[2019-11-08] MEDS: hydrOXYzine 25 MG TAB PO PRN (13:07)
[2019-11-09 00:06] LABS: CHLAMYDIA PHARYNGEAL APTIMA Negative (Negative); GC PHARYNGEAL APTIMA Negative (Negative)
== END 2019-11-08 15:02 | disposition home or self-care (01) | DRG 751 ==
LOC: M ED 08:41 → M ED INP 15:22 → M PSY 16:15
PROVIDERS: ADMIT Psychiatry & Neurology Addiction Medicine; ATTEND Psychiatry & Neurology Addiction Medicine
DX: F29 Unspecified psychosis not due to a substance or known physiological condition (principal); F11.90 Opioid use, unspecified, uncomplicated; F15.90 Other stimulant use, unspecified, uncomplicated; G43.909 Migraine, unspecified, not intractable, without status migrainosus; G40.909 Epilepsy, unspecified, not intractable, without status epilepticus; R45.851 Suicidal ideations; Z79.899 Other long term (current) drug therapy; F43.10 Post-traumatic stress disorder, unspecified; F41.0 Panic disorder [episodic paroxysmal anxiety]; F60.3 Borderline personality disorder; F60.2 Antisocial personality disorder; F17.210 Nicotine dependence, cigarettes, uncomplicated; J06.9 Acute upper respiratory infection, unspecified; B09 Unspecified viral infection characterized by skin and mucous membrane lesions

== ENCOUNTER 2019-11-13 01:38 | Inpatient (IN) | payer MEDICAID ==
[~2019-11-13] VITALS: Ht 154.9 cm; Wt 59.0 kg
[~2019-11-13 01:38] MED LIST changes: +BUPR1SUB5 SL; +DEPA1TAB3 PO; +NICO21PAT TD; +PALI1TAB2 PO; +SERT50TA29 PO
[2019-11-13] MEDS ORDERED: OXYB5TAB10 PO ×2 (02:03→04:54)
[2019-11-13 02:35] LABS: HEMATOCRIT 39.8 % (36.0-47.0); HEMOGLOBIN 13.2 g/dl (12.0-15.5); MEAN CORPUSCULAR HEMOGLOBIN 32.7 pg (27.0-33.0); MEAN CORPUSCULAR HGB CONC 33.2 g/dl (32.0-36.5); MEAN CORPUSCULAR VOLUME 98.5 fl (80.0-96.0); PLATELET COUNT, AUTOMATED 246 10^3/uL (150-450); RED BLOOD COUNT 4.04 10^6/uL (4.00-5.40); WHITE BLOOD COUNT 8.2 10^3/uL (4.0-10.0)
[2019-11-13 03:01] LABS: AMPHETAMINES LEVEL URINE NEGATIVE (NEGATIVE); BARBITURATES URINE NEGATIVE (NEGATIVE); BENZODIAZEPINES URINE NEGATIVE (NEGATIVE); CANNABINOIDS URINE NEGATIVE (NEGATIVE); COCAINE METABOLITE URINE NEGATIVE (NEGATIVE); METHADONE URINE NEGATIVE (NEGATIVE); OPIATES URINE POSITIVE (NEGATIVE); PHENCYCLIDINE URINE NEGATIVE (NEGATIVE)
[2019-11-13 03:03] LABS: HCG, SERUM QUALITATIVE NEGATIVE (NEGATIVE)
[2019-11-13 03:31] LABS: ACETAMINOPHEN LEVEL < 2.0 UG/ML (10.0-30.0); ALT/SGPT 158 U/L (12-78); BILIRUBIN,DIRECT 0.2 MG/DL (0.0-0.2); BILIRUBIN,TOTAL 0.4 MG/DL (0.2-1.0); BLOOD UREA NITROGEN 15 MG/DL (7-18); CALCIUM LEVEL 9.7 MG/DL (8.5-10.1); CARBON DIOXIDE LEVEL 28 MEQ/L (21-32); CHLORIDE LEVEL 102 MEQ/L (98-107); CREATININE FOR GFR 0.77 MG/DL (0.55-1.30); ETHYL ALCOHOL (ETHANOL) < 0.003 % (0.000-0.010); GLOMERULAR FILTRATION RATE > 60.0 (>60); GLUCOSE, FASTING 87 MG/DL (70-100); POTASSIUM SERUM 4.7 MEQ/L (3.5-5.1); SALICYLATE LEVEL < 1.7 MG/DL (5.0-30.0); SODIUM LEVEL 136 MEQ/L (136-145); VALPROIC ACID (DEPAKOTE) 116.5 UG/ML (50.0-100.0)
[2019-11-13] MEDS ORDERED: LORazepam 1 MG TAB PO ONE (04:00)
[2019-11-13] MEDS ORDERED: MOM 30ML SUSPENSION UDC PO PRN (04:45)
[2019-11-13] MEDS ORDERED: NICOTINE 21MG/24HR 1 EA TRANSDERMAL TD PRN (04:45)
[2019-11-13] MEDS ORDERED: traZODone 50 MG TAB PO PRN (04:45)
[2019-11-13] MEDS ORDERED: MAALOX 30 ML SUSP *UDC PO PRN (04:45)
[2019-11-13] MEDS ORDERED: OLANZapine ORAL DISINTEGRATING TAB 5MG PO PRN (04:45)
[2019-11-13] MEDS ORDERED: TOPI25TA10 PO (04:54)
[2019-11-13] MEDS ORDERED: BUPR1SUB5 SL (04:54)
[2019-11-13] MEDS ORDERED: PALI1TAB2 PO (04:54)
[2019-11-13] MEDS ORDERED: DIVA500T94 PO (04:54)
[2019-11-13] MEDS ORDERED: TRAZ-257 PO (04:54)
[2019-11-13] MEDS ORDERED: SERT-141 PO (04:54)
[2019-11-13 05:40] VITALS: BP 121/65
[2019-11-13] MEDS: SERTRALINE HCL 50 MG TAB PO SCH (08:02)
[2019-11-13] MEDS: oxyBUTYnin 5 MG TAB PO SCH (08:02)
[2019-11-13] MEDS: TOPIRAMATE (TopAMAX) 25 MG TAB PO SCH ×2 (08:03→20:24)
[2019-11-13] MEDS: BUPRENORPHINE/NALOXONE 8-2MG SUBLINGUAL TABLET(SUBOXONE) SL SCH ×2 (08:46→14:40)
[2019-11-13] MEDS ORDERED: DIVALPROEX 500 MG TAB PO SCH (09:00)
--- NOTE | 2019-11-13 09:29 | MHHPEPDOC ---
[facility] History & Physical History and Physical DATE OF ADMISSION: Nov 13, 2019 at 04:38 New Patient Cely Galindo MRN: N/A Date of : N/A Date of Service: 11/13/2019 Chief Complaint "I don't know." History of Present Illness The patient, a woman who is 34 years old, presents again after reportedly using rock and heroin, becoming reportedly psychotic, she had reported that she was otherwise unable to get her medications despite them going to the pharmacy. It appears that she had been using heroin shortly after she had left. When she was attempted to be met with she was too tired and ataxic to interview effectively, her Depakote level was 116, ammonia was normal, medicine was consulted as to whether she will need medical treatment. Psychosocial information drived from previous notes and updated. Review Of Systems I am unable to obtain due to mental status. Past Psychiatric History The patient has reported history of depression last admitted in 2018, reportedly had an overdose at that time of Xanax and Klonopin. Allergies Please see below. Family Psychiatric History The patient has reported in the past having the father with schizophrenia and mother with bipolar disorder and alcoholism. 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 Substance Abuse History The patient has extensive history of polysubstance use going back several years to the age of 13, primary drug traces of heroin, as well as methamphetamine. Mental Status Examination General: Well dressed with good hygiene Speech: Slurred Thought processes: Uncoordinated MSK: Some ataxia Thought content: Unknown Abstract reasoning, and computation: Intact Description of associations: Intact Description of abnormal or psychotic thoughts: Unknown Judgment: Unknown Insight: Unknown Orientation: Alert and orientated 3 Cognition: Slowed and impaired Recent and remote memory: Impaired Attention span and concentration: Impaired Fund of knowledge: Impaired Mood: "okay" Affect: Flat and impaired Diagnoses Unspecified psychotic disorder Opioid use disorder, severe. Methamphetamine use disorder, severe. Hallucinogen use disorder, severe Assessment and Plan Unspecified psychiatric disorder: Medicine will consult, EKG ordered, ammonia normal, will hold Depakote. Await recommendations, potentially have neuro involved to reduce Depakote level or changeover operator as it appears to make her overly sedated. Patient reports that she wants to be on Depakote instead of Invega. We'll discontinue Invega and start Depakote 5 mg nightly, hold for sedation. Disposition Patient will be further observed for another 48 hours where she then will be determined as to whether she meets involuntary criteria. Problem List 1. Altered thoughts. 2. Substance use. Initial Treatment Plan 1. Patient was admitted on a 9.39 legal status. 2. Complete history was obtained. 3. With patients permission, family will be contacted and database will be expanded. 4. Patients medication regimen will be reviewed and changed accordingly. 5. Patient will be provided with protected environment. 6. Patient will be treated with individual, group, and milieu therapies. 7. Patient will receive supportive psych-education. 8. Discharge planning will commence immediately. 9. Outpatient follow-up treatment will be strongly recommended. 10. The initial treatment plan will focus initially on: Estimated Length Of Stay 3 days. Time Spent 70 minutes with greater than 50% time spent on counseling/coordination of care. Tuesday Vital Signs Vital Signs Date Time Temp Pulse Resp B/P (MAP) Pulse Ox O2 Delivery O2 Flow Rate FiO2 11/13/19 05:40 98.0 76 17 121/65 (83) 99 Room Air Laboratory Data 24H Labs Laboratory Tests 2 11/13/19 02:22: Nucleated Red Blood Cells % (auto) 0.0, Urine Opiates Screen POSITIVEH, Urine Methadone Screen NEGATIVE, Urine Barbiturates Screen NEGATIVE, Urine Phenc yclidine Screen NEGATIVE, Urine Amphetamines Screen NEGATIVE, Urine Benzodiazepines Screen NEGATIVE, Urine Cocaine Metabolite Screen NEGATIVE, Urine Cannabinoids Screen NEGATIVE 11/13/19 02:23: Anion Gap 6L, Glomerular Filtration Rate > 60.0, Calcium Level 9.7, Total Bilirubin 0.4, Direct Bilirubin 0.2, Aspartate Amino Transf (AST/SGOT) 172H, Alanine Aminotransferase (ALT/SGPT) 158H, Alkaline Phosphatase 67, Total Protein 9.0H, Albumin 4.0, Albumin/Globulin Ratio 0.80L, Thyroid Stimulating Hormone (TSH) 7.650H, Human Chorionic Gonadotropin, Qual NEGATIVE, Salicylates Level < 1.7L, Acetaminophen Level < 2.0L, Valproic Acid (Depakene) Level 116.5H, Ethyl Alcohol Level < 0.003 CBC/BMP Laboratory Tests 11/13/19 02:22 11/13/19 02:23 Medications Scheduled Buprenorphine HCl/Naloxone HCl (Buprenorphin-Naloxon 8-2 mg Sl) 1 Each Tab.subl, 1 TAB SL BID, (Reported) QAM, AND 1500 Divalproex Sodium (Divalproex Sodium) 500 Mg Tablet.dr, 500 MG PO BID, (Reported) Oxybutynin Chloride (Oxybutynin Chloride) 5 Mg Tablet, 5 MG PO DAILY, (Reported) Paliperidone (Paliperidone ER) 3 Mg Tab.er.24, 3 MG PO QHS, (Reported) DIDN'T DIETARY AIDE FROM PHARMACY Sertraline Hcl (Sertraline HCl) 50 Mg Tablet, 50 MG PO DAILY, (Reported) Topiramate (Topiramate) 25 Mg Tablet, 50 MG PO BID, (Reported) Scheduled PRN Trazodone HCl (Trazodone HCl) 100 Mg Tablet, 100 MG PO QHS PRN for SLEEP, (Reported) Allergies Coded Allergies: No Known Allergies (Verified , 02/22/18) A-FIB/CHADSVASC A-FIB History Current/History of A-Fib/PAF?: No ORI MALONE DO Nov 13, 2019 09:29
[2019-11-13] MEDS ORDERED: NALOXONE 2MG/2ML SYRINGE (J2310 PER 1MG) PRN (10:15)
--- NOTE | 2019-11-13 15:37 | ECGEPIP ---
[facility] Test Date: 2019-11-13 Pat Name: BIGG SIMS Department: Room: [place] [address] Gender: Female [employer] Manager: MARK : 1985 Requested By: ORI MALONE Order Number: [id number] Reading MD: Sarthak Nguyen Measurements Intervals [place] Rate: 70 P: 22 GA: 141 QRS: 12 QRSD: 90 T: -6 QT: 453 QTc: 489 Interpretive Statements SINUS RHYTHM rSr' in V1 & V2 (RV conduction delay) Mildly prolonged QTC. Mild improvement of repolarization abnormalities compared with 11/07/2019. Electronically Signed on 11-13-2019 15:37:13 EDT by Sarthak Nguyen
[2019-11-13] MEDS ORDERED: IBUPROFEN 600 MG TAB PO PRN (16:45)
[2019-11-13] MEDS ORDERED: IBUPROFEN 600 MG TAB PO ONE (17:00)
--- NOTE | 2019-11-13 17:21 | HPEPDOC ---
[facility] Medical History & Physical Date of Admission Nov 13, 2019 Date of Service: Nov 13, 2019 History and Physical CHIEF COMPLAINT: Admitted to inpatient mental health unit for altered mental status and drug abuse HISTORY OF PRESENT ILLNESS: 34-year-old female with past medical history of drug abuse on Suboxone is admitted to inpatient with health unit for altered mental status and drug abuse. Patient is drowsy with ataxia in the morning, alert and oriented 3 but has very poor attention span, due to which she is not answering most of my questions. She was reevaluated later in the day, ataxia has improved, ambulating around the room without much difficulty, but she continues to remain drowsy, now reporting low back pain from chronic sciatica. She has no complaints at this time, denies any drug overdose. She was found to have elevated Depakote levels and she received her morning dose of Depakote as well, which has since been discontinued. She denies any shortness of breath, chest pain, nausea, vomiting, abdominal pain, diarrhea or constipation. 10 point review of system is negative except for above PAST MEDICAL HISTORY: 1. Drug abuse. 2. Unable to obtain remainder for history PAST SURGICAL HISTORY: 1. Unable to obtain. SOCIAL HISTORY: Drug abuse. Unable to obtain the rest FAMILY HISTORY: As pain ALLERGIES: Please see below. HOME MEDICATIONS: Please see below. PHYSICAL EXAMINATION: VITAL SIGNS: Please see below. GENERAL: Appears to be high HEENT: Normocephalic, atraumatic, moist mucous membranes NECK: Supple CARDIOVASCULAR EXAMINATION: S1, S2, no murmurs RESPIRATORY EXAMINATION: Clear to auscultation, no wheezing ABDOMINAL EXAMINATION: Soft, nontender, nondistended, positive bowel sounds EXTREMITIES: Range of motion intact SKIN: No rash NEUROLOGICAL EXAMINATION: Alert and oriented 3, mild ataxia PSYCHIATRIC EXAMINATION: Calm and cooperative LABORATORY DATA: See below. MICROBIOLOGY: Please see below. ASSESSMENT: 34-year-old female with past medical history of drug abuse on Samuel boxone is admitted to inpatient mental health unit for drug abuse along with possible Depakote toxicity PLAN: 1. Depakote toxicity. Depakote levels were elevated last night, received morning dose of Depakote, current clinical presentation to be due to Depakote, clinically improved when reevaluated in the afternoon, can continue to monitor on inpatient mental health unit. 2. 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 3. Sciatica. Tylenol/Motrin for pain control as needed. 4. Drug abuse. Management as per primary team Vital Signs Vital Signs Date Time Temp Pulse Resp B/P (MAP) Pulse Ox O2 Delivery O2 Flow Rate FiO2 11/13/19 05:40 98.0 76 17 121/65 (83) 99 Room Air Laboratory Data Labs 24H Laboratory Tests 2 11/13/19 02:22: Nucleated Red Blood Cells % (auto) 0.0, Urine Opiates Screen POSITIVEH, Urine Methadone Screen NEGATIVE, Urine Barbiturates Screen NEGATIVE, Urine Phencyclidine Screen NEGATIVE, Urine Amphetamines Screen NEGATIVE, Urine Benzodiazepines Screen NEGATIVE, Urine Cocaine Metabolite Screen NEGATIVE, Urine Cannabinoids Screen NEGATIVE 11/13/19 02:23: Anion Gap 6L, Glomerular Filtration Rate > 60.0, Calcium Level 9.7, Total Bilirubin 0.4, Direct Bilirubin 0.2, Aspartate Amino Transf (AST/SGOT) 172H, Alanine Aminotransferase (ALT/SGPT) 158H, Alkaline Phosphatase 67, Total Protein 9.0H, Albumin 4.0, Albumin/Globulin Ratio 0.80L, Thyroid Stimulating Hormone (TSH) 7.650H, Human Chorionic Gonadotropin, Qual NEGATIVE, Salicylates Level < 1.7L, Acetaminophen Level < 2.0L, Valproic Acid (Depakene) Level 116.5H, Ethyl Alcohol Level < 0.003 11/13/19 10:36: Ammonia 30 CBC/BMP Laboratory Tests 11/13/19 02:22 11/13/19 02:23 Home Medications Scheduled Buprenorphine HCl/Naloxone HCl (Buprenorphin-Naloxon 8-2 mg Sl) 1 Each Tab.subl, 1 TAB SL BID QAM, AND 1500 Divalproex Sodium (Divalproex Sodium) 500 Mg Tablet.dr, 500 MG PO BID Oxybutynin Chloride (Oxybutynin Chloride) 5 Mg Tablet, 5 MG PO DAILY Paliperidone (Paliperidone ER) 3 Mg Tab.er.24, 3 MG PO QHS DIDN'T PHLEBOTOMIST LAB ASSISTANT FROM PHARMACY Sertraline Hcl (Sertraline HCl) 50 Mg Tablet, 50 MG PO DAILY Topiramate (Topiramate) 25 Mg Tablet, 50 MG PO BID Scheduled PRN Trazodone HCl (Trazodone HCl) 100 Mg Tablet, 100 MG PO QHS PRN for SLEEP Allergies Coded Allergies: No Known Allergies (Verified , 02/22/18) A-FIB/CHADSVASC A-FIB History Current/History of A-Fib/PAF?: No TRINI PERRY MD Nov 13, 2019 17:21
[2019-11-13] MEDS: ACETAMINOPHEN TAB 650MG DOSE (2X325MG) PO PRN (19:15)
[2019-11-13 20:00] VITALS: BP 109/58
[2019-11-13] MEDS: OLANZapine 5 MG TAB PO SCH (20:24)
[2019-11-13] MEDS: traZODone 100 MG TAB PO PRN (20:24)
[2019-11-13] MEDS: ANALGESIC BALM CRM 120 GM TOP PRN (20:31)
[2019-11-13] MEDS ORDERED: PALIPERIDONE 3 MG ER TAB (INVEGA) PO SCH (21:00)
[2019-11-14 05:53] VITALS: BP 120/84
[2019-11-14 06:21] VITALS: BP 126/79
[2019-11-14 06:31] LABS: HEMATOCRIT 38.1 % (36.0-47.0); HEMOGLOBIN 12.9 g/dl (12.0-15.5); MEAN CORPUSCULAR HEMOGLOBIN 33.3 pg (27.0-33.0); MEAN CORPUSCULAR HGB CONC 33.9 g/dl (32.0-36.5); MEAN CORPUSCULAR VOLUME 98.4 fl (80.0-96.0); PLATELET COUNT, AUTOMATED 226 10^3/uL (150-450); RED BLOOD COUNT 3.87 10^6/uL (4.00-5.40); WHITE BLOOD COUNT 6.6 10^3/uL (4.0-10.0)
[2019-11-14 06:47] VITALS: BP 127/72
[2019-11-14 07:03] LABS: ALBUMIN 3.9 GM/DL (3.2-5.2); ALT/SGPT 155 U/L (12-78); BILIRUBIN,TOTAL 0.5 MG/DL (0.2-1.0); BLOOD UREA NITROGEN 25 MG/DL (7-18); CALCIUM LEVEL 9.3 MG/DL (8.5-10.1); CARBON DIOXIDE LEVEL 24 MEQ/L (21-32); CHLORIDE LEVEL 101 MEQ/L (98-107); GLOMERULAR FILTRATION RATE > 60.0 (>60); GLUCOSE, FASTING 117 MG/DL (70-100); MAGNESIUM LEVEL 1.9 MG/DL (1.8-2.4); POTASSIUM SERUM 3.8 MEQ/L (3.5-5.1); SODIUM LEVEL 133 MEQ/L (136-145); TOTAL PROTEIN 8.6 GM/DL (6.4-8.2); VALPROIC ACID (DEPAKOTE) 77.6 UG/ML (50.0-100.0)
[2019-11-14] MEDS: oxyBUTYnin 5 MG TAB PO SCH (08:30)
[2019-11-14] MEDS: TOPIRAMATE (TopAMAX) 25 MG TAB PO SCH ×2 (08:30→20:04)
[2019-11-14] MEDS: SERTRALINE HCL 50 MG TAB PO SCH (08:30)
[2019-11-14] MEDS: BUPRENORPHINE/NALOXONE 8-2MG SUBLINGUAL TABLET(SUBOXONE) SL SCH ×2 (09:00→15:00)
--- NOTE | 2019-11-14 09:13 | MHIPNPDOC ---
[facility] Progress Note Progress Note Inpatient Progress Note Cely Galindo MRN: N/A Date of : N/A Date of Service: 11/14/2019 History of Present Illness The patient, a woman who is 34 years old, presents again after reportedly using rock and heroin, becoming reportedly psychotic, she had reported that she was otherwise unable to get her medications despite them going to the pharmacy. It appears that she had been using heroin shortly after she had left. When she was attempted to be met with she was too tired and ataxic to interview effectively, her Depakote level was 116, ammonia was normal, medicine was consulted as to whether she will need medical treatment. Psychosocial information drived from previous notes and updated. Interval History The patient is met with today. She is still very sleepy and unable to engage in any meaningful interview. She is taken back to her room, she has had notable lethargy but her Depakote level is normal, there is some concern about ataxia and gait instability. Neurology is consulted and recommend cross tapering her Depakote off and then subsequently increasing Topamax to an effective dose. She has been denying suicidality throughout and there is some concern that she has been storing drugs in the unit, and her room has been searched multiple times. No other behavioral concerns, although medicine reports that they do not feel she needs medical admission at this time for lethargy and sedation. Review Of Systems Unable to obtain due to lethargy and sedation. Psychotherapy None on this visit. Vital Signs Reviewed. Mental Status Examination General: Well dressed with good hygiene Speech: Slurred Thought processes: Uncoordinated MSK: Some ataxia Thought content: Unknown Abstract reasoning, and computation: Intact Description of associations: Intact Description of abnormal or psychotic thoughts: Unknown Judgment: Unknown Insight: Unknown Orientation: Alert and orientated 3 Cognition: Slowed and impaired Recent and remote memory: Impaired Attention span and concentration: Impaired Fund of knowledge: Impaired Mood: "okay" Affect: Flat and impaired Diagnoses Opioid use disorder, severe. Methamphetamine use disorder, severe. Hallucinogen use disorder, severe Unspecified psychotic disorder. Assessment and Plan Unspecified psychotic disorder: Likely substance induced, will search patient's room, cross taper Depakote as per neurology recommendations, Zyprexa 5 mg nightly. Will do repeat EKG and consider Vraylar if EKG is elevated. Disposition Patient will need to be observed and extended on a 9.39 as she is too impaired in order to understand the new onsets of her situation, however if she is using on the unit, she will need to be detoxed and subsequently returned to a more normal mental status. Medicine has been emphatic that she does not need medical admission despite the lethargy. Time Spent 15 minutes. Tuesday Vital Signs Vital Signs Date Time Temp Pulse Resp B/P (MAP) Pulse Ox O2 Delivery O2 Flow Rate FiO2 11/14/19 08:06 Room Air 11/14/19 06:47 97.3 77 14 127/72 (90) 96 Laboratory Data 24H Labs Laboratory Tests 2 11/13/19 10:36: Ammonia 30 11/14/19 06:18: Nucleated Red Blood Cells % (auto) 0.0, Anion Gap 8, Glomerular Filtration Rate > 60.0, Calcium Level 9.3, Magnesium Level 1.9, Total Bilirubin 0.5, Aspartate Amino Transf (AST/SGOT) 170H, Alanine Aminotransferase (ALT/SGPT) 155H, Alkaline Phosphatase 61, Total Protein 8.6H, Albumin 3.9, Albumin/Globulin Ratio 0.83L, Valproic Acid (Depakene) Level 77.6 CBC/BMP Laboratory Tests 11/14/19 06:18 Current Medications Current Medications Medications (Trade) Dose Ordered Sig/René Route PRN Reason Start Time Stop Time Status Last Admin Dose Admin Acetaminophen (Tylenol Tab) 650 mg Q6HP PRN PO HEADACHE or DISCOMFORT 11/13/19 04:45 11/13/19 19:15 Al Hydrox/Mg Hydrox/Simethicone (Mylanta) 30 ml Q4HP PRN PO HEARTBURN/INDIGESTION 11/13/19 04:45 Buprenorphine/ Naloxone (Suboxone 8/2mg) 1 tab BID@0900,1500 SL 11/13/19 09:00 11/13/19 08:46 Divalproex Sodium (Depakote) 500 mg BID PO 11/13/19 09:00 11/13/19 08:03 Home Med (Med Rec Complete!) ASDIRECTED XX 11/13/19 05:00 11/13/19 05:04 DC Ibuprofen (Advil) 600 mg Q6HP PRN PO back pain 11/13/19 16:45 11/13/19 16:47 DC Ibuprofen (Advil) 600 mg Q6HP PRN PO MODERATE PAIN (PS 5-7) 11/13/19 23:00 Magnesium Hydroxide (Milk Of Magnesia) 30 ml DAILYPRN PRN PO CONSTIPATION 11/13/19 04:45 Menthol/Methyl Salicylate (Bengay Cream) APPPLY TO BACK Q6HP PRN TOP muscle pain 11/13/19 16:00 11/13/19 20:31 Naloxone HCl (Narcan) 2 mg Q2HP PRN NA intoxication 11/13/19 10:15 11/13/19 10:20 DC Nicotine (Nicoderm Cq 21mg) 1 patch DAILY PRN TD Nicotine Withdrawl 11/13/19 04:45 Olanzapine (ZyPREXA ZYDIS) 5 mg Q4HP PRN PO AGITATION 11/13/19 04:45 11/13/19 06:21 Olanzapine (ZyPREXA) 5 mg QHS PO 11/13/19 21:00 11/13/19 20:24 Oxybutynin Chloride (Ditropan) 5 mg DAILY PO 11/13/19 09:00 11/14/19 08:30 Paliperidone (Invega) 3 mg QHS PO 11/13/19 21:00 11/13/19 10:08 DC Sertraline HCl (Zoloft) 50 mg DAILY PO 11/13/19 09:00 11/14/19 08:30 Topiramate (TopAMAX) 50 mg BID PO 11/13/19 09:00 11/14/19 08:30 Trazodone HCl (Desyrel) 50 mg QHSP PRN PO INSOMNIA 11/13/19 04:45 11/13/19 05:01 DC Trazodone HCl (Desyrel) 100 mg QHSP PRN PO INSOMNIA 11/13/19 05:00 11/13/19 20:24 Allergies Coded Allergies: No Known Allergies (Verified , 02/22/18) ORI MALONE DO Nov 14, 2019 09:13
[2019-11-14] MEDS: ANALGESIC BALM CRM 120 GM TOP PRN (12:05)
[2019-11-14] MEDS: IBUPROFEN 600 MG TAB PO PRN (12:06)
--- NOTE | 2019-11-14 13:04 | ECGEPIP ---
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 Electronically Signed on 11-14-2019 13:04:42 EDT by Sarthak Nguyen
[2019-11-14 15:45] VITALS: BP 111/61
[2019-11-14] MEDS: DIVALPROEX 250 MG TAB PO SCH (20:03)
[2019-11-14] MEDS: traZODone 100 MG TAB PO PRN (20:04)
[2019-11-14] MEDS: OLANZapine 5 MG TAB PO SCH (20:04)
[2019-11-15] MEDS: ACETAMINOPHEN TAB 650MG DOSE (2X325MG) PO PRN (00:26)
[2019-11-15 06:10] VITALS: BP 126/72
[2019-11-15] MEDS: BUPRENORPHINE/NALOXONE 8-2MG SUBLINGUAL TABLET(SUBOXONE) SL SCH ×2 (09:00→14:30)
--- NOTE | 2019-11-15 09:12 | MHIPNPDOC ---
[facility] Progress Note Progress Note Inpatient Progress Note Cely Galindo MRN: N/A Date of : N/A Date of Service: 11/15/2019 History of Present Illness The patient, a woman who is 34 years old, presents again after reportedly using rock and heroin, becoming reportedly psychotic, she had reported that she was otherwise unable to get her medications despite them going to the pharmacy. It appears that she had been using heroin shortly after she had left. When she was attempted to be met with she was too tired and ataxic to interview effectively, her Depakote level was 116, ammonia was normal, medicine was consulted as to whether she will need medical treatment. Psychosocial information drived from previous notes and updated. Interval History The patient was met with today, she is much more able to speak and much less sedated. She was found with various pills that appeared to be Suboxone, when asked about it she becomes defensive and upset stating that "people are putting it in my bag." The patient report some worried thoughts, however, they appear to be not endorsed significantly. Staff has noticed that she is become much less sedated since these were removed from her room, it appears that she has a long history of smuggling addictive substances and taking other patients medicines in order to get high on the unit. Her QTc was prolonged on last visit. Review Of Systems Reports swelling in hands and the similar complaint she had had on last visit. Psychotherapy None on this visit. Vital Signs Reviewed. Mental Status Examination General: Well dressed with good hygiene Speech: Slurred Thought processes: More linear. MSK: No ataxia. Thought content: Defensiveness. Abstract reasoning, and computation: Intact Description of associations: Intact Description of abnormal or psychotic thoughts: Denies any suicidal or homicidal ideation. Denies any auditory or visual hallucinations. Judgment: Chronically limited. Insight: Chronically limited. Orientation: Alert and orientated 3 Cognition: More alert. Recent and remote memory: Improved. Attention span and concentration: Improved. Fund of knowledge: Improved. Mood: "okay" Affect: Improved. Diagnoses Opioid use disorder, severe. Methamphetamine use disorder, severe. Hallucinogen use disorder, severe Unspecified psychotic disorder. Assessment and Plan Unspecified psychotic disorder: Continue cross taper of Depakote over the next several days as recommended by neuro, we will discontinue Zyprexa with extended QTc instead of Vraylar 1.5 mg nightly as it does not have risks of QTc prolongation. Disposition Patient will be further observed, but appears to making progress after her substances had been removed from her room, likely she was intoxicated while even on our unit. Once she resolves, she will be promptly discharged. Time Spent 15 minutes. Vital Signs Vital Signs Date Time Temp Pulse Resp B/P (MAP) Pulse Ox O2 Delivery O2 Flow Rate FiO2 11/15/19 08:02 Room Air 11/15/19 06:10 97.9 60 18 126/72 (90) 97 Current Medications Current Medications Medications (Trade) Dose Ordered Sig/René Route PRN Reason Start Time Stop Time Status Last Admin Dose Admin Acetaminophen (Tylenol Tab) 650 mg Q6HP PRN PO HEADACHE or DISCOMFORT 11/13/19 04:45 11/15/19 00:26 Al Hydrox/Mg Hydrox/Simethicone (Mylanta) 30 ml Q4HP PRN PO HEARTBURN/INDIGESTION 11/13/19 04:45 Buprenorphine/ Naloxone (Suboxone 8/2mg) 1 tab BID@0900,1500 SL 11/13/19 09:00 11/13/19 08:46 Divalproex Sodium (Depakote) 250 mg BID PO 11/14/19 21:00 11/14/19 20:03 Divalproex Sodium (Depakote) 500 mg BID PO 11/13/19 09:00 11/14/19 11:53 DC 11/13/19 08:03 Home Med (Med Rec Complete!) ASDIRECTED XX 11/13/19 05:00 11/13/19 05:04 DC Ibuprofen (Advil) 600 mg Q6HP PRN PO back pain 11/13/19 16:45 11/13/19 16:47 DC Ibuprofen (Advil) 600 mg Q6HP PRN PO MODERATE PAIN (PS 5-7) 11/13/19 23:00 11/14/19 12:06 Magnesium Hydroxide (Milk Of Magnesia) 30 ml DAILYPRN PRN PO CONSTIPATION 11/13/19 04:45 Menthol/Methyl Salicylate (Bengay Cream) APPPLY TO BACK Q6HP PRN TOP muscle pain 11/13/19 16:00 11/14/19 12:05 Naloxone HCl (Narcan) 2 mg Q2HP PRN NA intoxication 11/13/19 10:15 11/13/19 10:20 DC Nicotine (Nicoderm Cq 21mg) 1 patch DAILY PRN TD Nicotine Withdrawl 11/13/19 04:45 Olanzapine (ZyPREXA ZYDIS) 5 mg Q4HP PRN PO AGITATION 11/13/19 04:45 11/13/19 06:21 Olanzapine (ZyPREXA) 5 mg QHS PO 11/13/19 21:00 11/14/19 20:04 Oxybutynin Chloride (Ditropan) 5 mg DAILY PO 11/13/19 09:00 11/14/19 08:30 Paliperidone (Invega) 3 mg QHS PO 11/13/19 21:00 11/13/19 10:08 DC Sertraline HCl (Zoloft) 50 mg DAILY PO 11/13/19 09:00 11/14/19 08:30 Topiramate (TopAMAX) 50 mg BID PO 11/13/19 09:00 11/14/19 11:53 DC 11/14/19 08:30 Topiramate (TopAMAX) 100 mg BID PO 11/14/19 21:00 11/14/19 20:04 Trazodone HCl (Desyrel) 50 mg QHSP PRN PO INSOMNIA 11/13/19 04:45 11/13/19 05:01 DC Trazodone HCl (Desyrel) 100 mg QHSP PRN PO INSOMNIA 11/13/19 05:00 11/14/19 20:04 Allergies Coded Allergies: No Known Allergies (Verified , 02/22/18) ORI MALONE DO Nov 15, 2019 09:12
[2019-11-15] MEDS: DIVALPROEX 250 MG TAB PO SCH ×2 (09:34→20:00)
[2019-11-15] MEDS: oxyBUTYnin 5 MG TAB PO SCH (09:35)
[2019-11-15] MEDS: SERTRALINE HCL 50 MG TAB PO SCH (09:35)
[2019-11-15] MEDS: TOPIRAMATE (TopAMAX) 25 MG TAB PO SCH ×2 (09:35→20:01)
[2019-11-15 13:00] LABS: ALBUMIN 3.4 GM/DL (3.2-5.2); ALT/SGPT 139 U/L (12-78); BILIRUBIN,TOTAL 0.5 MG/DL (0.2-1.0); BLOOD UREA NITROGEN 16 MG/DL (7-18); CALCIUM LEVEL 8.5 MG/DL (8.5-10.1); CARBON DIOXIDE LEVEL 26 MEQ/L (21-32); CHLORIDE LEVEL 107 MEQ/L (98-107); CREATININE FOR GFR 0.62 MG/DL (0.55-1.30); GLOMERULAR FILTRATION RATE > 60.0 (>60); GLUCOSE, FASTING 93 MG/DL (70-100); POTASSIUM SERUM 3.7 MEQ/L (3.5-5.1); SODIUM LEVEL 138 MEQ/L (136-145); TOTAL PROTEIN 7.9 GM/DL (6.4-8.2)
[2019-11-15 15:17] VITALS: BP 104/55
[2019-11-15] MEDS: IBUPROFEN 600 MG TAB PO PRN (17:14)
[2019-11-15] MEDS ORDERED: CARIPRAZINE 1.5MG CAPSULE (VRAYLAR) PO SCH (21:00)
[2019-11-16 06:20] VITALS: BP 100/57
[2019-11-16] MEDS: oxyBUTYnin 5 MG TAB PO SCH (08:45)
[2019-11-16] MEDS: TOPIRAMATE (TopAMAX) 25 MG TAB PO SCH (08:45)
[2019-11-16] MEDS: SERTRALINE HCL 50 MG TAB PO SCH (08:46)
[2019-11-16] MEDS: BUPRENORPHINE/NALOXONE 8-2MG SUBLINGUAL TABLET(SUBOXONE) SL SCH (08:46)
[2019-11-16] MEDS: DIVALPROEX 250 MG TAB PO SCH (08:47)
--- NOTE | 2019-11-16 09:10 | MHIPNPDOC ---
[facility] Progress Note Progress Note DATE OF SERVICE: 11/16/19 HISTORY: . VITAL SIGNS: See below. NEW TEST RESULTS: . CURRENT MEDICATIONS: See below. MENTAL STATUS EXAMINATION: Patient is a -year old female, who is . Speech: Is . Language skills are . Thought processes including: . Thought content: . Abstract reasoning, and computation: . Description of associations: . Description of abnormal or psychotic thoughts: . Judgment: . Insight: [very limited, good, fair. poor]. Orientation: . Recent and remote memory: . Attention span and concentration: . Language: . Fund of knowledge: . Mood: . Affect: . DIAGNOSES: 1. . 2. . 3. . ASSESSMENT: MANAGEMENT PLAN: . TIME SPENT: minutes. Vital Signs Vital Signs Date Time Temp Pulse Resp B/P (MAP) Pulse Ox O2 Delivery O2 Flow Rate FiO2 11/16/19 06:20 97.7 63 18 100/57 (71) 11/15/19 08:02 Room Air 11/15/19 06:10 97 Laboratory Data 24H Labs Laboratory Tests 2 11/15/19 11:45: Anion Gap 5L, Glomerular Filtration Rate > 60.0, Calcium Level 8.5, Total Bilirubin 0.5, Aspartate Amino Transf (AST/SGOT) 149H, Alanine Aminotransferase (ALT/SGPT) 139H, Alkaline Phosphatase 66, Total Protein 7.9, Albumin 3.4, Alb umin/Globulin Ratio 0.76L CBC/BMP Laboratory Tests 11/15/19 11:45 Current Medications Current Medications Medications (Trade) Dose Ordered Sig/René Route PRN Reason Start Time Stop Time Status Last Admin Dose Admin Acetaminophen (Tylenol Tab) 650 mg Q6HP PRN PO HEADACHE or DISCOMFORT 11/13/19 04:45 11/15/19 00:26 Al Hydrox/Mg Hydrox/Simethicone (Mylanta) 30 ml Q4HP PRN PO HEARTBURN/INDIGESTION 11/13/19 04:45 Buprenorphine/ Naloxone (Suboxone 8/2mg) 1 tab BID@0900,1500 SL 11/13/19 09:00 11/16/19 08:46 Cariprazine (Vraylar) 1.5 mg QHS PO 11/15/19 21:00 11/15/19 20:00 Divalproex Sodium (Depakote) 250 mg BID PO 11/14/19 21:00 11/16/19 08:47 Divalproex Sodium (Depakote) 500 mg BID PO 11/13/19 09:00 11/14/19 11:53 DC 11/13/19 08:03 Home Med (Med Rec Complete!) ASDIRECTED XX 11/13/19 05:00 11/13/19 05:04 DC Ibuprofen (Advil) 600 mg Q6HP PRN PO back pain 11/13/19 16:45 11/13/19 16:47 DC Ibuprofen (Advil) 600 mg Q6HP PRN PO MODERATE PAIN (PS 5-7) 11/13/19 23:00 11/15/19 17:14 Magnesium Hydroxide (Milk Of Magnesia) 30 ml DAILYPRN PRN PO CONSTIPATION 11/13/19 04:45 Menthol/Methyl Salicylate (Bengay Cream) APPPLY TO BACK Q6HP PRN TOP muscle pain 11/13/19 16:00 11/14/19 12:05 Naloxone HCl (Narcan) 2 mg Q2HP PRN NA intoxication 11/13/19 10:15 11/13/19 10:20 DC Nicotine (Nicoderm Cq 21mg) 1 patch DAILY PRN TD Nicotine Withdrawl 11/13/19 04:45 Olanzapine (ZyPREXA ZYDIS) 5 mg Q4HP PRN PO AGITATION 11/13/19 04:45 11/15/19 11:26 DC 11/13/19 06:21 Olanzapine (ZyPREXA) 5 mg QHS PO 11/13/19 21:00 11/15/19 09:33 DC 11/14/19 20:04 Oxybutynin Chloride (Ditropan) 5 mg DAILY PO 11/13/19 09:00 11/16/19 08:45 Paliperidone (Invega) 3 mg QHS PO 11/13/19 21:00 11/13/19 10:08 DC Sertraline HCl (Zoloft) 50 mg DAILY PO 11/13/19 09:00 11/16/19 08:46 Topiramate (TopAMAX) 50 mg BID PO 11/13/19 09:00 11/14/19 11:53 DC 11/14/19 08:30 Topiramate (TopAMAX) 100 mg BID PO 11/14/19 21:00 11/16/19 08:45 Trazodone HCl (Desyrel) 50 mg QHSP PRN PO INSOMNIA 11/13/19 04:45 11/13/19 05:01 DC Trazodone HCl (Desyrel) 100 mg QHSP PRN PO INSOMNIA 11/13/19 05:00 11/14/19 20:04 Allergies Coded Allergies: No Known Allergies (Verified , 02/22/18) ORI MALONE DO Nov 16, 2019 09:10
--- NOTE | 2019-11-16 09:15 | MHDSPDOC ---
[facility] Discharge Summary Discharge Summary DATE OF ADMISSION: Nov 13, 2019 at 04:38 DATE OF DISCHARGE: 11/16/19 Discharge Cely Galindo MRN: N/A Date of : N/A Date of Service: 11/16/2019 Diagnoses Opioid use disorder, severe. Methamphetamine use disorder, severe. Hallucinogen use disorder, severe Unspecified psychotic disorder. History of Present Illness The patient, a woman who is 34 years old, presents again after reportedly using rock and heroin, becoming reportedly psychotic, she had reported that she was otherwise unable to get her medications despite them going to the pharmacy. It appears that she had been using heroin shortly after she had left. When she was attempted to be met with she was too tired and ataxic to interview effectively, her Depakote level was 116, ammonia was normal, medicine was consulted as to whether she will need medical treatment. Psychosocial information drived from previous notes and updated. Consultants Involved Hospitalist/PCP screening Neurology. Treatment and Progress On The Unit The patient was admitted to the inpatient unit where she was highly sedated the first day, it was unclear as to what was causing this and she was worked up. She had a mildly elevated Depakote level, however no signs of hyperammonemia. She was then monitored further where it was unclear as to what was causing her exces sive sedation and lethargy. Sedating medications were held. However, neurology was consulted where they recommended cross titrating her Depakote to topiramate due to the concerns of lethargy and ataxia. However, it was discovered that the patient had been hoarding Suboxone tablets on the unit likely smuggled in her underwear. She has a long history reportedly of smuggling medications on the inpatient units and even using other patients medications while being at rehab. After we had discovered her stash of medications and removed and her lethargy vanished quite quickly. She was initially placed on Zyprexa 5 mg at night as Invega had not been able to be gotten by the patient however her QTc was too long at nearly 500, she was then switched from Zyprexa to Vraylar 1.5 mg with positive effects and any paranoid thinking resolving same day. After she was moved away from the medications she had brought on, her situation improved and her sedation resolved where she requested to be discharged. During her stay she was generally focused on getting her Suboxone without any concern for other prob lems. Discharge Assessment 34-year-old woman with likely substance induced psychosis who presents and brings on contraband Suboxone and probably other medications and uses it while on the unit, after her medications are discovered and removed her symptoms resolved suddenly and she improves well indicating that it was likely substance induced. She has a significant addiction history and will likely do poorly. However at this time she does not meet involuntary criteria as she has a relatively baseline mental status exam, denying any suicidal or homicidal ideation and all of her paranoid thoughts have been redacted. She is cooperating with the discharge and no longer meets criteria to be further kept against her will. She declines further voluntary and thus must be discharged in good sahra. Mental Status Examination General: Well dressed with good hygiene Speech: Spontaneous and fluid Thought processes: Linear and logical MSK: Smooth and coordinated gait, no signs of tremors or involuntary orofacial movements Thought content: Future orientated Abstract reasoning, and computation: Intact Description of associations: Intact Description of abnormal or psychotic thoughts: Denies any suicidal or homicidal ideation. Denies any auditory or visual hallucinations. Does not appear to be responding to internal stimuli. Does not appear to be endorsing any bizarre or paranoid ideation. Judgment: Chronically limited. Insight: Chronically limited. Orientation: Alert and orientated 3 Cognition: Grossly normal Recent and remote memory: Intact Attention span and concentration: Intact Fund of knowledge: Adequate Mood: "okay" Affect: Euthymic with a full range Follow Up The social work team worked during the predischarge meeting in order to evaluate for further issues of lethality address them fully before discharge. They worked on safety planning with the patient's family members in order to ensure that the patient will have a safe and effective discharge. Due to concerns of patient overdosing I called her pharmacy to cancel out any extra medications only giving her 7 day supply with 4 refills in order her to minimize her access to medications, she was given some Suboxone, but told that no more will be given and she would have to establish with an outpatient provider. Time Spent The amount of time spent in the coordination of care for this patient was approximately 45 minutes. Tuesday Vital Signs/I&Os Vital Signs Date Time Temp Pulse Resp B/P (MAP) Pulse Ox O2 Delivery O2 Flow Rate FiO2 11/16/19 06:20 97.7 63 18 100/57 (71) 11/15/19 08:02 Room Air 11/15/19 06:10 97 Laboratory Data Labs 24H Laboratory Tests 2 11/15/19 11:45: Anion Gap 5L, Glomerular Filtration Rate > 60.0, Calcium Level 8.5, Total Bilirubin 0.5, Aspartate Amino Transf (AST/SGOT) 149H, Alanine Aminotransferase (ALT/SGPT) 139H, Alkaline Phosphatase 66, Total Protein 7.9, Albumin 3.4, Albumin/Globulin Ratio 0.76L CBC/BMP Laboratory Tests 11/15/19 11:45 Medications Scheduled Buprenorphine HCl/Naloxone HCl (Buprenorphin-Naloxon 8-2 mg Sl) 1 Each Tab.subl, 1 TAB SL BID for opioid for 3 Days, #6 QAM, AND 1500 Cariprazine HCl (Vraylar) 1.5 Mg Capsule, 1.5 MG PO QHS for thoughts for 7 Days, #7 Divalproex Sodium (Depakote) 250 Mg Tablet.dr, 250 MG PO BID for sz for 7 Days, #14 Oxybutynin Chloride (Oxybutynin Chloride) 5 Mg Tablet, 5 MG PO DAILY, (Reported) Sertraline Hcl (Sertraline HCl) 50 Mg Tablet, 50 MG PO DAILY, (Reported) Topiramate (Topiramate) 100 Mg Tablet, 1 TAB PO BID for ocampo for 7 Days, #14 Scheduled PRN Nicotine (Nicotine Patch) 21 Mg Patch.td24, 1 PATCH TD DAILY PRN for Nicotine Withdrawl for 30 Days, #30 Trazodone HCl (Trazodone HCl) 100 Mg Tablet, 100 MG PO QHS PRN for SLEEP, (Reported) Allergies Coded Allergies: No Known Allergies (Verified , 02/22/18) ORI MALONE DO Nov 16, 2019 09:15
[2019-11-16] MEDS ORDERED: DEPA250T32 PO ×2 (11:27→11:32)
[2019-11-16] MEDS ORDERED: VRAY1.5C PO (11:27)
[2019-11-16] MEDS ORDERED: NICO21PAT TD (11:27)
[2019-11-16] MEDS ORDERED: BUPR1SUB5 SL (11:27)
[2019-11-16] MEDS ORDERED: TOPI100T9 PO (11:27)
--- NOTE | 2019-11-16 15:07 | ECGEPIP ---
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
== END 2019-11-16 13:55 | disposition home or self-care (01) | DRG 751 ==
LOC: M ED 01:38 → M ED INP 04:38 → M PSY 05:21
PROVIDERS: ADMIT Psychiatry & Neurology Psychiatry; ATTEND Psychiatry & Neurology Addiction Medicine
DX: F29 Unspecified psychosis not due to a substance or known physiological condition (principal); F11.20 Opioid dependence, uncomplicated; F16.20 Hallucinogen dependence, uncomplicated; F15.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, uncomplicated; Z79.899 Other long term (current) drug therapy; Z81.8 Family history of other mental and behavioral disorders; R27.0 Ataxia, unspecified; M54.40 Lumbago with sciatica, unspecified side; R94.31 Abnormal electrocardiogram [ECG] [EKG]

== ENCOUNTER 2019-11-17 18:18 | Emergency (ER) | payer MEDICAID ==
[~2019-11-17] VITALS: Ht 154.9 cm; Wt 58.4 kg
[~2019-11-17 18:18] MED LIST changes: +DEPA250T32 PO; +DIVA500T94 PO; +SERT-141 PO; +TOPI100T9 PO; +VRAY1.5C PO
[2019-11-17 19:21] LABS: HEMATOCRIT 38.7 % (36.0-47.0); HEMOGLOBIN 13.1 g/dl (12.0-15.5); MEAN CORPUSCULAR HEMOGLOBIN 33.2 pg (27.0-33.0); MEAN CORPUSCULAR HGB CONC 33.9 g/dl (32.0-36.5); MEAN CORPUSCULAR VOLUME 98.2 fl (80.0-96.0); PLATELET COUNT, AUTOMATED 262 10^3/uL (150-450); RED BLOOD COUNT 3.94 10^6/uL (4.00-5.40); WHITE BLOOD COUNT 7.1 10^3/uL (4.0-10.0)
[2019-11-17 19:34] LABS: HCG, SERUM QUALITATIVE NEGATIVE (NEGATIVE)
[2019-11-17 19:39] LABS: AMPHETAMINES LEVEL URINE NEGATIVE (NEGATIVE); BARBITURATES URINE NEGATIVE (NEGATIVE); BENZODIAZEPINES URINE NEGATIVE (NEGATIVE); CANNABINOIDS URINE NEGATIVE (NEGATIVE); COCAINE METABOLITE URINE NEGATIVE (NEGATIVE); METHADONE URINE NEGATIVE (NEGATIVE); OPIATES URINE NEGATIVE (NEGATIVE); PHENCYCLIDINE URINE NEGATIVE (NEGATIVE)
[2019-11-17 20:07] VITALS: BP 129/77
[2019-11-17 20:09] LABS: ACETAMINOPHEN LEVEL < 2.0 UG/ML (10.0-30.0); ALBUMIN 3.9 GM/DL (3.2-5.2); ALT/SGPT 135 U/L (12-78); BILIRUBIN,DIRECT 0.1 MG/DL (0.0-0.2); BILIRUBIN,TOTAL 0.4 MG/DL (0.2-1.0); BLOOD UREA NITROGEN 12 MG/DL (7-18); CALCIUM LEVEL 8.9 MG/DL (8.5-10.1); CARBON DIOXIDE LEVEL 19 MEQ/L (21-32); CHLORIDE LEVEL 110 MEQ/L (98-107); ETHYL ALCOHOL (ETHANOL) < 0.003 % (0.000-0.010); GLOMERULAR FILTRATION RATE > 60.0 (>60); GLUCOSE, FASTING 87 MG/DL (70-100); POTASSIUM SERUM 3.6 MEQ/L (3.5-5.1); SALICYLATE LEVEL < 1.7 MG/DL (5.0-30.0); SODIUM LEVEL 139 MEQ/L (136-145); TOTAL PROTEIN 8.9 GM/DL (6.4-8.2); VALPROIC ACID (DEPAKOTE) 86.1 UG/ML (50.0-100.0)
== END 2019-11-17 20:40 | disposition home or self-care (01) ==
LOC: M ED 18:18
DX: F29 Unspecified psychosis not due to a substance or known physiological condition (principal); F25.9 Schizoaffective disorder, unspecified; F43.10 Post-traumatic stress disorder, unspecified; F41.1 Generalized anxiety disorder; F60.3 Borderline personality disorder; F19.10 Other psychoactive substance abuse, uncomplicated; Z79.899 Other long term (current) drug therapy
CPT/HCPCS: 36415; 80048; 80076; 80164; 80307; 84443; 84703; 85027; 99284; G0480

== ENCOUNTER 2019-11-19 08:29 | Emergency (ER) | payer MEDICAID ==
[~2019-11-19] VITALS: Ht 154.9 cm; Wt 58.6 kg
[2019-11-19] MEDS ORDERED: SERT50TA29 PO (08:39)
[2019-11-19 09:48] LABS: BASO # 0.1 10^3/uL (0.0-0.2); BASO % 0.9 % (0.0-1.0); EOS % 0.2 % (0.0-3.0); HEMATOCRIT 38.1 % (36.0-47.0); HEMOGLOBIN 12.9 g/dl (12.0-15.5); LYMPH # 2.5 10^3/uL (1.5-5.0); MEAN CORPUSCULAR HEMOGLOBIN 33.2 pg (27.0-33.0); MEAN CORPUSCULAR HGB CONC 33.9 g/dl (32.0-36.5); MEAN CORPUSCULAR VOLUME 98.2 fl (80.0-96.0); MONO # 0.4 10^3/uL (0.0-0.8); MONO % 5.9 % (0.0-5.0); NEUTROPHILS # 3.5 10^3/uL (1.5-8.5); NEUTROPHILS % 53.8 % (36.0-66.0); PLATELET COUNT, AUTOMATED 316 10^3/uL (150-450); RED BLOOD COUNT 3.88 10^6/uL (4.00-5.40); WHITE BLOOD COUNT 6.4 10^3/uL (4.0-10.0)
[2019-11-19 10:16] LABS: BLOOD UREA NITROGEN 19 MG/DL (7-18); CARBON DIOXIDE LEVEL 23 MEQ/L (21-32); CHLORIDE LEVEL 108 MEQ/L (98-107); CREATININE FOR GFR 0.72 MG/DL (0.55-1.30); GLOMERULAR FILTRATION RATE > 60.0 (>60); GLUCOSE, FASTING 97 MG/DL (70-100); POTASSIUM SERUM 3.7 MEQ/L (3.5-5.1); SODIUM LEVEL 138 MEQ/L (136-145)
[2019-11-19 11:30] VITALS: BP 136/78
[2019-11-19] MEDS ORDERED: DEPA250T32 PO (11:30)
[2019-11-19] MEDS ORDERED: OXYB5TAB10 PO (11:31)
--- NOTE | 2019-11-19 11:49 | REP ---
CT BRAIN WITHOUT CONTRAST: CT brain performed without IV contrast. Coronal reconstruction images are performed. Comparison made to a prior study of 08/13/2019. Ventricles are normal in size and position with no midline shift or mass effect. Zabala-white differentiation is well maintained. There is no acute intracranial hemorrhage or extra-axial fluid collection. Bone window examination is unremarkable. IMPRESSION: Negative noncontrast CT brain. Electronically Signed by Golden Zabala MD 11/19/2019 12:11 P
--- NOTE | 2019-11-19 19:06 | ECGEPIP ---
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
== END 2019-11-19 11:39 | disposition home or self-care (01) ==
LOC: M ED 08:29
DX: G40.909 Epilepsy, unspecified, not intractable, without status epilepticus (principal); F19.10 Other psychoactive substance abuse, uncomplicated; G43.909 Migraine, unspecified, not intractable, without status migrainosus; M79.7 Fibromyalgia; K75.9 Inflammatory liver disease, unspecified; F99 Mental disorder, not otherwise specified; F17.200 Nicotine dependence, unspecified, uncomplicated; Z79.899 Other long term (current) drug therapy; Z86.74 Personal history of sudden cardiac arrest

== ENCOUNTER 2019-11-23 10:06 | Inpatient (IN) | payer MEDICAID ==
[~2019-11-23] VITALS: Ht 154.9 cm; Wt 56.1 kg
[2019-11-23 11:19] LABS: HEMATOCRIT 40.4 % (36.0-47.0); MEAN CORPUSCULAR HEMOGLOBIN 33.2 pg (27.0-33.0); MEAN CORPUSCULAR HGB CONC 34.7 g/dl (32.0-36.5); MEAN CORPUSCULAR VOLUME 95.7 fl (80.0-96.0); PLATELET COUNT, AUTOMATED 350 10^3/uL (150-450); RED BLOOD COUNT 4.22 10^6/uL (4.00-5.40); WHITE BLOOD COUNT 5.6 10^3/uL (4.0-10.0)
[2019-11-23 11:42] LABS: HCG, SERUM QUALITATIVE NEGATIVE (NEGATIVE)
[2019-11-23 12:00] LABS: ACETAMINOPHEN LEVEL < 2.0 UG/ML (10.0-30.0); ALBUMIN 4.3 GM/DL (3.2-5.2); ALT/SGPT 94 U/L (12-78); BILIRUBIN,DIRECT 0.2 MG/DL (0.0-0.2); BILIRUBIN,TOTAL 0.6 MG/DL (0.2-1.0); BLOOD UREA NITROGEN 10 MG/DL (7-18); CARBON DIOXIDE LEVEL 19 MEQ/L (21-32); CHLORIDE LEVEL 107 MEQ/L (98-107); CREATININE FOR GFR 0.62 MG/DL (0.55-1.30); ETHYL ALCOHOL (ETHANOL) < 0.003 % (0.000-0.010); GLOMERULAR FILTRATION RATE > 60.0 (>60); GLUCOSE, FASTING 100 MG/DL (70-100); SALICYLATE LEVEL 1.8 MG/DL (5.0-30.0); SODIUM LEVEL 135 MEQ/L (136-145); TOTAL PROTEIN 9.3 GM/DL (6.4-8.2); VALPROIC ACID (DEPAKOTE) 50.8 UG/ML (50.0-100.0)
[2019-11-23 12:18] LABS: AMPHETAMINES LEVEL URINE NEGATIVE (NEGATIVE); BARBITURATES URINE NEGATIVE (NEGATIVE); BENZODIAZEPINES URINE NEGATIVE (NEGATIVE); CANNABINOIDS URINE NEGATIVE (NEGATIVE); COCAINE METABOLITE URINE NEGATIVE (NEGATIVE); METHADONE URINE NEGATIVE (NEGATIVE); OPIATES URINE NEGATIVE (NEGATIVE); PHENCYCLIDINE URINE NEGATIVE (NEGATIVE)
[2019-11-23] MEDS ORDERED: SERT50TA29 PO (13:24)
[2019-11-23] MEDS ORDERED: TOPI100T9 PO (13:24)
[2019-11-23] MEDS ORDERED: BUPR1SUB5 SL (13:24)
[2019-11-23] MEDS ORDERED: TRAZ-257 PO (13:24)
[2019-11-23] MEDS ORDERED: OXYB5TAB10 PO (13:24)
[2019-11-23] MEDS ORDERED: VRAY1.5C PO (13:24)
[2019-11-23] MEDS ORDERED: DIVA250T67 PO (13:24)
[2019-11-23] MEDS ORDERED: MAALOX 30 ML SUSP *UDC PO PRN (15:45)
[2019-11-23] MEDS ORDERED: LORazepam 2 MG TAB PO PRN (15:45)
[2019-11-23] MEDS ORDERED: traZODone 50 MG TAB PO PRN (15:45)
[2019-11-23] MEDS ORDERED: MOM 30ML SUSPENSION UDC PO PRN (15:45)
[2019-11-23 17:02] LABS: CK-MB VALUE MASS < 1.0 NG/ML (<3.6); CPK CREATINE PHOSPHOKINASE 45 U/L (26-192); MB/CK RELATIVE INDEX 2.22 (< OR =4); TROPONIN I < 0.02 NG/ML (< 0.10)
[2019-11-23] MEDS: THIAMINE 100 MG TAB PO SCH (18:14)
--- NOTE | 2019-11-23 18:33 | ECGEPIP ---
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
[2019-11-23] MEDS: TOPIRAMATE (TopAMAX) 100 MG TAB PO SCH (21:00)
[2019-11-23] MEDS: PALIPERIDONE 3 MG ER TAB (INVEGA) PO SCH (21:00)
[2019-11-23] MEDS: DIVALPROEX 250 MG TAB PO SCH (21:00)
[2019-11-24 06:07] VITALS: BP 121/78
[2019-11-24] MEDS: DIVALPROEX 250 MG TAB PO SCH ×2 (10:07→21:30)
[2019-11-24] MEDS: TOPIRAMATE (TopAMAX) 100 MG TAB PO SCH ×2 (10:07→21:30)
[2019-11-24] MEDS: MULTIVITAMINS/MINERALS THERAP 1 TAB PO SCH (10:08)
[2019-11-24] MEDS: FOLIC ACID 1 MG TAB PO SCH (10:08)
[2019-11-24] MEDS: THIAMINE 100 MG TAB PO SCH ×2 (10:08→21:30)
--- NOTE | 2019-11-24 14:47 | HPEPDOC ---
General Date of Admission Nov 23, 2019 at 15:42 Date of Service: Nov 24, 2019 Chief Complaint The patient is a 34-year-old female admitted with a reason for visit of Unspecified Psychosis. Source: Patient Exam Limitations: Mild cognitive slowing Timing/Duration: Day(s) Severity: Mild History of Present Illness Patient is 34 years old female with significant past medical history depression, bipolar, long QT interval who was admitted in the hospital with depression. She denied any cardiovascular problem, breathing problem, GI problem or dysuria. She denies fever, chills, nausea, vomiting, shortness of breath, palpitations, diarrhea or dysuria Home Medications Scheduled Buprenorphine HCl/Naloxone HCl (Buprenorphin-Naloxon 8-2 mg Sl) 1 Each Tab.subl, 1 TAB SL BID, (Reported) Cariprazine HCl (Vraylar) 1.5 Mg Capsule, 1.5 MG PO QHS, (Reported) Divalproex Sodium (Divalproex Sodium) 250 Mg Tablet.dr, 250 MG PO BID, (Reported) Oxybutynin Chloride (Oxybutynin Chloride) 5 Mg Tablet, 5 MG PO BID, (Reported) Sertraline HCl (Sertraline HCl) 50 Mg Tablet, 100 MG PO DAILY, (Reported) Topiramate (Topiramate) 100 Mg Tablet, 100 MG PO BID, (Reported) Scheduled PRN Trazodone HCl (Trazodone HCl) 100 Mg Tablet, 100 MG PO QHS PRN for SLEEP, (Reported) Allergies Coded Allergies: No Known Allergies (Verified , 02/22/18) Past Medical History Medical History Depression, bipolar disorder, long QT interval Family History Father has schizophrenia Mother has bipolar disorder Social History * Smoker: Denies, current smoker Alcohol: Denies Drugs: denies A-FIB/CHADSVASC A-FIB History Current/History of A-Fib/PAF?: No Current PO Anticoag Therapy: No Review of Systems Constitutional: Denies: Chills, Fever Eyes: Denies: Pain ENT: Denies: Head Aches Skin: Denies: Rash, Lesions Pulmonary: Denies: Dyspnea, Cough Cardiovascular: Denies: Chest Pain Gastrointestinal: Denies: Nausea, Vomiting Genitourinary: Denies: Frequency Hematologic: Denies: Bruising Endocrine: Denies: Polydipsia Musculoskeletal: Denies: Back Pain Neurological: Denies: Weakness Psych: Reports: Depression Physical Examination General Exam: Positive: Alert, Cooperative Eye Exam: Positive: PERRLA ENT Exam: Positive: Atraumatic Neck Exam: Positive: Supple; Negative: JVD Heart Exam: Positive: Rate Normal Telemetry: Positive: No significant arrhythmia Abdomen Exam: Positive: Normal bowel sounds Extremity Exam: Positive: Clubbing Skin Exam: Positive: Nl turgor and temperature Neuro Exam: Positive: Normal Gait, Strength at 5/5 X4 ext Psych Exam: Positive: Oriented x 3 Vital Signs Vital Signs Date Time Temp Pulse Resp B/P (MAP) Pulse Ox O2 Delivery O2 Flow Rate FiO2 11/24/19 06:07 72 121/78 11/24/19 06:07 97.6 14 97 Room Air Assessment/Plan Patient is 34 years old female with significant past medical history depression, bipolar, who was admitted in the hospital with depression. She denied any cardiovascular problem, breathing problem, GI problem or dysuria. She denies fever, chills, nausea, vomiting, shortness of breath, palpitations, diarrhea or dysuria Problems (1) Long QT interval Status: Acute Problem Text: Monitor EKG Avoid medication that can prolong QTC Follow-up with networking specialist in the outpatient settings (2) Depression Status: Acute Problem Text: Treatment per psych team Plan / VTE VTE Prophylaxis Ordered?: No VTE Exclusion Mechanical Proph: Low Risk for VTE DONALDO VARGAS DO Nov 24, 2019 14:47
[2019-11-24 16:21] VITALS: BP 118/73
--- NOTE | 2019-11-24 18:55 | MHHPEPDOC ---
[facility] History & Physical History and Physical DATE OF ADMISSION: Nov 23, 2019 at 15:42 LEGAL STATUS AT ADMISSION: 9.39 CHIEF COMPLAINT: Psychosis HISTORY OF PRESENT ILLNESS: Patient is a 34-year-old female, who according to ED notes: "Patient is reported by plastering contractor & ED MD to be very vague in her presentation, although admitted to drug use today & some recent SI (no SI today). This investigative writer received a TCF Isabella Concepcion at [facility], who stated that she'd been on the telephone with patient for about 45 minutes this morning. Patient was described as extremely paranoid & delusional, including percecutory ideas such as people vaginally assaulting her with various objects. Ms. Concepcion stated that she had contacted patient's Cost And Risk Analysis Manager (Mrs. Hathaway) & requested that she go to see patient face to face in order to check her welfare. At this time it is unclear whether this actually occured & that her PO assisted in her presentation, or if patient presented on her own. Per review of patient's EMR, she was D/C from [facility] one week ago today. Her D/C dx(s) include Opioid Use D/O, Amphetamine Use D/O, Hallucinogen Use D/O & Unspecified Psychotic D/O. PSYCHIATRIC REVIEW OF SYSTEMS: THE PATIENT COULD NOT BE EVALUATED BECAUSE SHE WAS TOO SLEEPY. HER NURSE, SCARLET HAYS, BROUGHT THE TABLET FOR ME TO ZOOM WITH HER BUT SHE WAS NOT ABLE TO STAY AWAKE Affective: . Anxiety: . Trauma: . Psychosis: . Personality: . PAST PSYCHIATRIC HISTORY: THE PATIENT COULD NOT BE EVALUATED, SHE WAS EXTREMELY SLEEPY. HER NURSE, SCARLET HAYS, BROUGHT THE TABLET FOR ME TO ZOOM WITH HER BUT SHE WAS NOT ABLE TO STAY AWAKE Prior Psychiatric Disorder: . Outpatient Treatment: . Suicidal/Self injurious: [Denies]. Psychotropic Medication History: . ALLERGIES: Please see below. FAMILY PSYCHIATRIC HISTORY: THE PATIENT COULD NOT BE EVALUATED BECAUSE SHE WAS TOO SLEEPY. HER NURSE, SCARLET HAYS, BROUGHT THE TABLET FOR ME TO ZOOM WITH HER BUT SHE WAS NOT ABLE TO STAY AWAKE SOCIAL HISTORY: THE PATIENT COULD NOT BE EVALUATED BECAUSE SHE WAS TOO SLEEPY. HER NURSE, SCARLET HAYS, BROUGHT THE TABLET FOR ME TO ZOOM WITH HER BUT SHE WAS NOT ABLE TO STAY AWAKE Early Relations/development: . Sibling order: . Paternal relationships: . Education: . Occupational: . Legal: . Marital: . Economic: . Supports: . Abuse/trauma: . SUBSTANCE ABUSE HISTORY: THE PATIENT COULD NOT BE EVALUATED BECAUSE SHE WAS TOO SLEEPY. HER NURSE, SCARLET HAYS, BROUGHT THE TABLET FOR ME TO ZOOM WITH HER BUT SHE WAS NOT ABLE TO STAY AWAKE PAST MEDICAL/SURGICAL HISTORY: THE PATIENT COULD NOT BE EVALUATED BECAUSE SHE WAS TOO SLEEPY. HER NURSE, SCARLET HAYS, BROUGHT THE TABLET FOR ME TO ZOOM WITH HER BUT SHE WAS NOT ABLE TO STAY AWAKE VITAL SIGNS: Please see below. MENTAL STATUS EXAMINATION: THE PATIENT COULD NOT BE EVALUATED BECAUSE SHE WAS TOO SLEEPY. HER NURSE, SCARLET HAYS, BROUGHT THE TABLET FOR ME TO ZOOM WITH HER BUT SHE WAS NOT ABLE TO STAY AWAKE General appearance: Patient is a -year old female, who is . Speech: . Thought processes: . Thought content: . Abstract reasoning and computation: . Description of associations: . Description of abnormal or psychotic thoughts: . Judgment: . Insight: . Orientation: . Recent and remote memory: . Attention span and concentration: . Fund of knowledge: . Mood: "." Affect: . DIAGNOSES: THE PATIENT COULD NOT BE EVALUATED BECAUSE SHE WAS TOO SLEEPY. HER NURSE, SCARLET HAYS, BROUGHT THE TABLET FOR ME TO ZOOM WITH HER BUT SHE WAS NOT ABLE TO STAY AWAKE 1. . 2. . 3. . ASSESSMENT: THE PATIENT COULD NOT BE EVALUATED BECAUSE SHE WAS TOO SLEEPY. HER NURSE, SCARLET HAYS, BROUGHT THE TABLET FOR ME TO ZOOM WITH HER BUT SHE WAS NOT ABLE TO STAY AWAKE PROBLEM LIST: THE PATIENT COULD NOT BE EVALUATED BECAUSE SHE WAS TOO SLEEPY. HER NURSE, SCARLET HAYS, BROUGHT THE TABLET FOR ME TO ZOOM WITH HER BUT SHE WAS NOT ABLE TO STAY AWAKE 1. . 2. . 3. . INITIAL TREATMENT PLAN: 1. Patient was admitted on a 9.39 2. Complete history was obtained. 3. With patients permission, family will be contacted and database will be expanded. 4. Patients medication regimen will be reviewed and changed accordingly. 5. Patient will be provided with protected environment. 6. Patient will be treated with individual, group, and milieu therapies. 7. Patient will receive supportive psych-education. 8. Discharge planning will commence immediately. 9. Outpatient follow-up treatment will be strongly recommended. 10. The initial treatment plan will focus initially on: * Depression. * Risk for suicide. * Substance abuse. ESTIMATED LENGTH OF STAY: 5-7 DAYS. TIME SPENT COUNSELING AND COORDINATING INITIAL CARE: 0 minutes. Vital Signs Vital Signs Date Time Temp Pulse Resp B/P (MAP) Pulse Ox O2 Delivery O2 Flow Rate FiO2 11/24/19 16:21 97.1 53 16 118/73 (88) 11/24/19 06:07 97 Room Air Medications Scheduled Buprenorphine HCl/Naloxone HCl (Buprenorphin-Naloxon 8-2 mg Sl) 1 Each Tab.subl, 1 TAB SL BID, (Reported) Cariprazine HCl (Vraylar) 1.5 Mg Capsule, 1.5 MG PO QHS, (Reported) Divalproex Sodium (Divalproex Sodium) 250 Mg Tablet.dr, 250 MG PO BID, (Report ed) Oxybutynin Chloride (Oxybutynin Chloride) 5 Mg Tablet, 5 MG PO BID, (Reported) Sertraline HCl (Sertraline HCl) 50 Mg Tablet, 100 MG PO DAILY, (Reported) Topiramate (Topiramate) 100 Mg Tablet, 100 MG PO BID, (Reported) Scheduled PRN Trazodone HCl (Trazodone HCl) 100 Mg Tablet, 100 MG PO QHS PRN for SLEEP, (Reported) Allergies Coded Allergies: No Known Allergies (Verified , 02/22/18) A-FIB/CHADSVASC A-FIB History Current/History of A-Fib/PAF?: No Current PO Anticoag Therapy: No Age/Risk Factor Scoring CHADSVASC: CHADSVASC Response (Comments) Value Age Risk Factor Age < 65 years old 0 Gender Risk Factor Female 1 Hx of CHF No 0 Hx of HTN No 0 Hx of Stroke/TIA/or VTE No 0 Hx of Diabetes No 0 Hx of Vascular Disease No 0 Total 1 Treatment Treatment ordered: NONE Reason Anticoagulant not given: Not indicated/[id number] JOEY BENOIT MD Nov 24, 2019 18:55
[2019-11-24] MEDS: PALIPERIDONE 3 MG ER TAB (INVEGA) PO SCH (21:30)
[2019-11-25 06:10] VITALS: BP 102/58
[2019-11-25] MEDS: FOLIC ACID 1 MG TAB PO SCH (09:02)
[2019-11-25] MEDS: DIVALPROEX 250 MG TAB PO SCH ×2 (09:02→21:01)
[2019-11-25] MEDS: TOPIRAMATE (TopAMAX) 100 MG TAB PO SCH ×2 (09:02→21:01)
[2019-11-25] MEDS: THIAMINE 100 MG TAB PO SCH ×2 (09:02→21:01)
[2019-11-25] MEDS: MULTIVITAMINS/MINERALS THERAP 1 TAB PO SCH (09:02)
[2019-11-25 16:24] VITALS: BP 103/55
--- NOTE | 2019-11-25 16:51 | ECGEPIP ---
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
[2019-11-25] MEDS: ACETAMINOPHEN TAB 650MG DOSE (2X325MG) PO PRN (16:59)
[2019-11-25] MEDS: PALIPERIDONE 3 MG ER TAB (INVEGA) PO SCH (21:01)
--- NOTE | 2019-11-25 21:53 | MHIPNPDOC ---
[facility] Progress Note Progress Note DATE OF SERVICE: 11/25/19 HISTORY: "As per ED evaluation: "Patient is reported by supervisor cured meats & ED MD to be very vague in her presentation, although admitted to drug use today & some recent SI (no SI today). This television writer received a TCF Isabella Concepcion at [facility], who stated that she'd been on the telephone with patient for about 45 minutes this morning. Patient was described as extremely paranoid & delusional, including percecutory ideas such as people vaginally assaulting her with various objects. Ms. Concepcion stated that she had contacted patient's Sponsorship Manager (Mrs. Hathaway) & requested that she go to see patient face to face in order to check her welfare. At this time it is unclear whether this actually occured & that her PO assisted in her presentation, or if patient presented on her own. Per review of patient's EMR, she was D/C from [facility] one week ago today. Her D/C dx(s) include Opioid Use D/O, Amphetamine Use D/O, Hallucinogen Use D/O & Unspecified Psychotic D/O." Interval History: The patient reports today feeling sad because she is not home with her children. She says her children are with her mother who is taking care of them. She says that yesterday she was feeling very paranoid, she reports paranoid thoughts today and she says yesterday she had the impression that thin gs were changing their shape or form. She says she is not experiencing that today, she says that she feels other people want to control her mind and she feels that they are able to do it. She wants to know why she has not received her Suboxone today and I explained that her blood pressure has been running low and for that reason we are holding her Suboxone. She was able to accept this fairly well. The patient could not be evaluated yesterday because she spent the entire day sleeping, she was not coming out of bed and when the staff approach her she says she didn't want to talk and she went back to sleep. I was not able to zoom with her yesterday VITAL SIGNS: See below. NEW TEST RESULTS: See below CURRENT MEDICATIONS: See below. MENTAL STATUS EXAMINATION: Patient is a 34-year old female, who is alert, drowsy, sleepy dressed in hospital clothes, disheveled, unkempt. Speech: Is slurred, slow, nonfluent, non spontaneous. Normal tone and volume Language skills are intact. Thought processes including: Linear. Thought content: Denies suicidal ideation at this time reports paranoid thoughts reports bizarre delusions (people are controlling her mind). Abstract reasoning, and computation: Not assessed at this time, patient is distractible and very sleepy. Description of associations: Somewhat loose Description of abnormal or psychotic thoughts: Reports paranoid thoughts, bizarre delusions of people controlling her mind and thought insertion. Denies auditory, visual or tactile hallucinations Judgment: Poor. Insight: Poor. Orientation: To place and person, not date or time. Recent and remote memory: Fair. Attention span and concentration: Easily distracted. Language: Adequate. Fund of knowledge: Unable to assess. Mood: sad. Affect: congruent with mood DIAGNOSES: Unspecified psychotic disorder Opioid use disorder ( she is on Suboxone) Polysubstance use disorder ( by history) ASSESSMENT: The patient seems to be recovering, this episode probably is drug- induced. According to staff the patient has been less lab I'll, less irritable compared to previous hospitalizations, her blood pressure has been running low and for that reason she has not received her Suboxone MANAGEMENT PLAN: Continue with current treatment plan and once patient's blood pressure is within normal limits she probably can resume her Suboxone TIME SPENT: 20 minutes. Vital Signs Vital Signs Date Time Temp Pulse Resp B/P (MAP) Pulse Ox O2 Delivery O2 Flow Rate FiO2 11/25/19 16:24 98.3 47 16 103/55 (71) 11/25/19 06:10 97 Room Air Current Medications Current Medications Medications (Trade) Dose Ordered Sig/René Route PRN Reason Start Time Stop Time Status Last Admin Dose Admin Acetaminophen (Tylenol Tab) 650 mg Q6HP PRN PO HEADACHE or DISCOMFORT 11/23/19 15:45 11/25/19 16:59 Al Hydrox/Mg Hydrox/Simethicone (Mylanta) 30 ml Q4HP PRN PO HEARTBURN/INDIGESTION 11/23/19 15:45 Divalproex Sodium (Depakote) 250 mg BID PO 11/23/19 21:00 11/25/19 09:02 Folic Acid (Folic Acid) 1 mg DAILY PO 11/24/19 09:00 11/25/19 09:02 Home Med (Med Rec Complete!) ASDIRECTED XX 11/23/19 13:30 11/23/19 13:28 DC Lorazepam (Ativan) 2 mg ASDIRECTED PRN PO SEE PROTOCOL 11/23/19 15:45 11/24/19 13:57 DC Magnesium Hydroxide (Milk Of Magnesia) 30 ml DAILYPRN PRN PO CONSTIPATION 11/23/19 15:45 Multivitamins (Theragram-M) 1 tab DAILY PO 11/24/19 09:00 11/25/19 09:02 Paliperidone (Invega) 3 mg QHS PO 11/23/19 21:00 11/24/19 21:30 Thiamine HCl (Thiamine HCl) 100 mg BID PO 11/23/19 16:00 11/26/19 09:01 11/25/19 09:02 Topiramate (TopAMAX) 100 mg BID PO 11/23/19 21:00 11/25/19 09:02 Trazodone HCl (Desyrel) 50 mg QHSP PRN PO INSOMNIA 11/23/19 15:45 11/24/19 21:30 Allergies Coded Allergies: No Known Allergies (Verified , 02/22/18) JOEY BENOIT MD Nov 25, 2019 17:57
[2019-11-26 06:24] VITALS: BP 119/72
[2019-11-26] MEDS: DIVALPROEX 250 MG TAB PO SCH (09:02)
[2019-11-26] MEDS: FOLIC ACID 1 MG TAB PO SCH (09:02)
[2019-11-26] MEDS: MULTIVITAMINS/MINERALS THERAP 1 TAB PO SCH (09:02)
[2019-11-26] MEDS: TOPIRAMATE (TopAMAX) 100 MG TAB PO SCH (09:02)
[2019-11-26] MEDS: THIAMINE 100 MG TAB PO SCH (09:02)
--- NOTE | 2019-11-26 09:15 | MHIPNPDOC ---
[facility] [place] Progress Note Progress Note Inpatient Progress Note Cely Galindo MRN: N/A Date of : N/A Date of Service: 11/26/2019 History of Present Illness The patient, a woman who is 34 years old, presents again after reportedly using rock and heroin, becoming reportedly psychotic, she had reported that she was otherwise unable to get her medications despite them going to the pharmacy. It appears that she had been using heroin shortly after she had left. Interval History The patient is met with today. She has been readmitted again due to the substance induced psychosis. However, she is much more clear today and she had been resumed on the Invega. She reports she is feeling improved. We discussed about the potential of injectable in order to reduce her general need on the medications and to continue the titration to limit the number of medications she has available as she has difficulty obtaining and properly taking her medications. She has had no behavioral problems overnight, has become increasingly more amenable with fairly good hygiene. She reports that she is much less paranoid and angry. Review Of Systems General: Denies fever or appetite changes Cardiovascular: Denies Chest pain or palpations GI: Denies Nausea, vomiting, or bowel changes Respiratory: Denies shortness of breath or cough Neuro: Denies dizziness, tremors Derm: Denies any rashes or pruritus : Denies any dysuria or urinary problems MSK: Denies any muscle tightness or stiffness HEENT: Denies any vision changes or headaches Psychotherapy None on this visit. Vital Signs Reviewed. Mental Status Examination General: Well dressed with good hygiene Speech: Spontaneous and fluid Thought processes: Linear and logical MSK: Smooth and coordinated gait, no signs of tremors or involuntary orofacial movements Thought content: Future orientated Abstract reasoning, and computation: Intact Description of associations: Intact Description of abnormal or psychotic thoughts: Denies any suicidal or homicidal ideation. Denies any auditory or visual hallucinations. Does not appear to be responding to internal stimuli. Does not appear to be endorsing any bizarre or paranoid ideation. Judgment: chronically limited Insight: chronically limited Orientation: Alert and orientated 3 Cognition: Grossly normal Recent and remote memory: Intact Attention span and concentration: Intact Fund of knowledge: Adequate Mood: "okay" Affect: Euthymic with a full range Diagnoses Opioid use disorder, severe. Methamphetamine use disorder, severe. Hallucinogen use disorder, severe. Assessment and Plan Unspecified psychotic disorder: Continue Invega 3 mg nightly, do loading dose of Invega Sustenna to 54 mg. Discussed risks, benefits, potential side effects with patient. Repeat EKG tomorrow. Mitigate any side effects with Zofran. Methamphetamine/hallucinogen use disorder: Monitor for outpatient rehab appropriate. Opioid use disorder: Continue home Suboxone. Seizure disorder: Continue cross titration as recommended on previous admission by neurology consult. Disposition The patient will need to be continued in order to titrate her medications due to her frequent readmissions. She would like to do best on an injectable and minimizing the number of medications she has as this will improve compliance and likely reduce her chance of readmission. Time Spent 15 minutes Tuesday Vital Signs Vital Signs Date Time Temp Pulse Resp B/P (MAP) Pulse Ox O2 Delivery O2 Flow Rate FiO2 11/26/19 06:24 97.8 63 16 119/72 (88) 99 Room Air Current Medications Current Medications Medications (Trade) Dose Ordered Sig/René Route PRN Reason Start Time Stop Time Status Last Admin Dose Admin Acetaminophen (Tylenol Tab) 650 mg Q6HP PRN PO HEADACHE or DISCOMFORT 11/23/19 15:45 11/25/19 16:59 Al Hydrox/Mg Hydrox/Simethicone (Mylanta) 30 ml Q4HP PRN PO HEARTBURN/INDIGESTION 11/23/19 15:45 Divalproex Sodium (Depakote) 250 mg BID PO 11/23/19 21:00 11/26/19 09:02 Folic Acid (Folic Acid) 1 mg DAILY PO 11/24/19 09:00 11/26/19 09:02 Home Med (Med Rec Complete!) ASDIRECTED XX 11/23/19 13:30 11/23/19 13:28 DC Lorazepam (Ativan) 2 mg ASDIRECTED PRN PO SEE PROTOCOL 11/23/19 15:45 11/24/19 13:57 DC Magnesium Hydroxide (Milk Of Magnesia) 30 ml DAILYPRN PRN PO CONSTIPATION 11/23/19 15:45 Multivitamins (Theragram-M) 1 tab DAILY PO 11/24/19 09:00 11/26/19 09:02 Paliperidone (Invega) 3 mg QHS PO 11/23/19 21:00 11/25/19 21:01 Thiamine HCl (Thiamine HCl) 100 mg BID PO 11/23/19 16:00 11/26/19 09:01 DC 11/26/19 09:02 Topiramate (TopAMAX) 100 mg BID PO 11/23/19 21:00 11/26/19 09:02 Trazodone HCl (Desyrel) 50 mg QHSP PRN PO INSOMNIA 11/23/19 15:45 Hold 11/24/19 21:30 Allergies Coded Allergies: No Known Allergies (Verified , 02/22/18) ORI MALONE DO Nov 26, 2019 09:15
[2019-11-26] MEDS: BUPRENORPHINE/NALOXONE 8-2MG SUBLINGUAL TABLET(SUBOXONE) SL SCH ×2 (11:46→21:08)
[2019-11-26] MEDS: ACETAMINOPHEN TAB 650MG DOSE (2X325MG) PO PRN (11:47)
[2019-11-26] MEDS ORDERED: PALIPERIDONE PALMITATE 234MG/1.5ML INJ (INVEGA)(FREE PSY INPT ONLY) IM ONE (12:00)
[2019-11-26] MEDS ORDERED: ONDANSETRON 4 MG TAB PO ONE (15:15)
[2019-11-26 16:07] VITALS: BP 127/74
[2019-11-26] MEDS: PALIPERIDONE 3 MG ER TAB (INVEGA) PO SCH (21:07)
[2019-11-26] MEDS: TOPIRAMATE (TopAMAX) 25 MG TAB PO SCH (21:08)
[2019-11-26] MEDS: ONDANSETRON 4 MG TAB PO PRN (21:58)
[2019-11-27 06:02] VITALS: BP 104/58
[2019-11-27] MEDS: FOLIC ACID 1 MG TAB PO SCH (08:07)
[2019-11-27] MEDS: DIVALPROEX 250 MG TAB PO SCH (08:07)
[2019-11-27] MEDS: MULTIVITAMINS/MINERALS THERAP 1 TAB PO SCH (08:07)
[2019-11-27] MEDS: TOPIRAMATE (TopAMAX) 25 MG TAB PO SCH ×2 (08:08→20:40)
[2019-11-27] MEDS: ONDANSETRON 4 MG TAB PO PRN (08:43)
[2019-11-27] MEDS: NICOTINE 21MG/24HR 1 EA TRANSDERMAL TD SCH (08:43)
--- NOTE | 2019-11-27 09:43 | MHIPNPDOC ---
[facility] Progress Note Progress Note Inpatient Progress Note Cely Galindo MRN: N/A Date of : N/A Date of Service: 11/27/2019 History of Present Illness The patient, a woman who is 34 years old, presents again after reportedly using rock and heroin, becoming reportedly psychotic, she had reported that she was otherwise unable to get her medications despite them going to the pharmacy. It appears that she had been using heroin shortly after she had left. Interval History The patient is met with today. She reports she is doing somewhat better and her paranoia has completely subsided. She reports she has anxiety and worries about things, but wants therapy and reports that she feels she will do better at [facility]. She report she comes here for therapy. Reports that talking about her problems does help. She reports that she had had some nausea the previous evening after getting her injection, but otherwise has been doing well. Staff report the patient generally expresses anxiety, although does not appear as anxious as she reports. No behavioral problems overnight. Review Of Systems General: Denies fever or appetite changes Cardiovascular: Denies Chest pain or palpations GI: Denies Nausea, vomiting, or bowel changes Respiratory: Denies shortness of breath or cough Neuro: Denies dizziness, tremors Derm: Denies any rashes or pruritus : Denies any dysuria or urinary problems MSK: Denies any muscle tightness or stiffness HEENT: Denies any vision changes or headaches Psychotherapy None on this visit. Vital Signs Reviewed. Mental Status Examination General: Well dressed with good hygiene Speech: Spontaneous and fluid Thought processes: Linear and logical MSK: Smooth and coordinated gait, no signs of tremors or involuntary orofacial movements Thought content: Future orientated Abstract reasoning, and computation: Intact Description of associations: Intact Description of abnormal or psychotic thoughts: Denies any suicidal or homicidal ideation. Denies any auditory or visual hallucinations. Does not appear to be responding to internal stimuli. Does not appear to be endorsing any bizarre or paranoid ideation. Judgment: chronically limited Insight: chronically limited Orientation: Alert and orientated 3 Cognition: Grossly normal Recent and remote memory: Intact Attention span and concentration: Intact Fund of knowledge: Adequate Mood: "okay" Affect: Euthymic with a full range Diagnoses Opioid use disorder, severe. Methamphetamine use disorder, severe. Hallucinogen use disorder, severe. Assessment and Plan Unspecified psychotic disorder: Continue Invega 3 mg nightly, we'll do second dose tomorrow if patient wishes to leave. EKG is normal. Methamphetamine/hallucinogen use disorder: Monitor for outpatient rehab appropriate. Opioid use disorder: Continue home Suboxone. Seizure disorder: Continue cross titration as recommended on previous admission by neurology consult. Disposition Discharge tomorrow if patient wishes to go, arrangements will be made today in eventuality. Time Spent 15 minutes. Tuesday Vital Signs Vital Signs Date Time Temp Pulse Resp B/P (MAP) Pulse Ox O2 Delivery O2 Flow Rate FiO2 11/27/19 06:02 98.0 69 16 104/58 (73) 11/26/19 06:24 99 Room Air Current Medications Current Medications Medications (Trade) Dose Ordered Sig/René Route PRN Reason Start Time Stop Time Status Last Admin Dose Admin Acetaminophen (Tylenol Tab) 650 mg Q6HP PRN PO HEADACHE or DISCOMFORT 11/23/19 15:45 11/26/19 11:47 Al Hydrox/Mg Hydrox/Simethicone (Mylanta) 30 ml Q4HP PRN PO HEARTBURN/INDIGESTION 11/23/19 15:45 Buprenorphine/ Naloxone (Suboxone 8/2mg) 1 tab BID SL 11/26/19 09:00 11/26/19 21:08 Divalproex Sodium (Depakote) 250 mg BID PO 11/23/19 21:00 11/26/19 10:56 DC 11/26/19 09:02 Divalproex Sodium (Depakote) 250 mg DAILY PO 11/27/19 09:00 11/27/19 08:07 Folic Acid (Folic Acid) 1 mg DAILY PO 11/24/19 09:00 11/27/19 08:07 Home Med (Med Rec Complete!) ASDIRECTED XX 11/23/19 13:30 11/23/19 13:28 DC Lorazepam (Ativan) 2 mg ASDIRECTED PRN PO SEE PROTOCOL 11/23/19 15:45 11/24/19 13:57 DC Magnesium Hydroxide (Milk Of Magnesia) 30 ml DAILYPRN PRN PO CONSTIPATION 11/23/19 15:45 Multivitamins (Theragram-M) 1 tab DAILY PO 11/24/19 09:00 11/27/19 08:07 Nicotine (Nicoderm Cq 21mg) 1 patch DAILY TD 11/27/19 09:00 11/27/19 08:43 Ondansetron HCl (Zofran) 4 mg Q6HP PRN PO NAUSEA OR VOMITING 11/26/19 21:30 11/27/19 08:43 Paliperidone (Invega) 3 mg QHS PO 11/23/19 21:00 11/26/19 21:07 Thiamine HCl (Thiamine HCl) 100 mg BID PO 11/23/19 16:00 11/26/19 09:01 DC 11/26/19 09:02 Topiramate (TopAMAX) 100 mg BID PO 11/23/19 21:00 11/26/19 10:56 DC 11/26/19 09:02 Topiramate (TopAMAX) 150 mg BID PO 11/26/19 21:00 11/27/19 08:08 Trazodone HCl (Desyrel) 50 mg QHSP PRN PO INSOMNIA 11/23/19 15:45 Hold 11/24/19 21:30 Allergies Coded Allergies: No Known Allergies (Verified , 02/22/18) ORI MALONE DO Nov 27, 2019 09:43
[2019-11-27] MEDS: BUPRENORPHINE/NALOXONE 8-2MG SUBLINGUAL TABLET(SUBOXONE) SL SCH ×2 (10:13→16:22)
[2019-11-27] MEDS: ACETAMINOPHEN TAB 650MG DOSE (2X325MG) PO PRN (12:22)
[2019-11-27] MEDS: hydrOXYzine 25 MG TAB PO PRN ×2 (12:22→20:40)
[2019-11-27 17:15] VITALS: BP 112/70
[2019-11-27] MEDS ORDERED: traZODone 25MG PER 1/2 TABLET PO PRN (17:15)
[2019-11-27] MEDS: PALIPERIDONE 3 MG ER TAB (INVEGA) PO SCH (20:39)
[2019-11-28 06:07] VITALS: BP 98/44
[2019-11-28] MEDS: FOLIC ACID 1 MG TAB PO SCH (08:09)
[2019-11-28] MEDS: hydrOXYzine 25 MG TAB PO PRN (08:09)
[2019-11-28] MEDS: MULTIVITAMINS/MINERALS THERAP 1 TAB PO SCH (08:10)
[2019-11-28] MEDS: TOPIRAMATE (TopAMAX) 25 MG TAB PO SCH (08:10)
[2019-11-28] MEDS: DIVALPROEX 250 MG TAB PO SCH (08:10)
[2019-11-28] MEDS: NICOTINE 21MG/24HR 1 EA TRANSDERMAL TD SCH (08:11)
--- NOTE | 2019-11-28 09:22 | ECGEPIP ---
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
[2019-11-28] MEDS: BUPRENORPHINE/NALOXONE 8-2MG SUBLINGUAL TABLET(SUBOXONE) SL SCH (09:32)
[2019-11-28] MEDS ORDERED: TOPI100T9 PO (09:54)
[2019-11-28] MEDS ORDERED: NICO21PAT TD (09:54)
[2019-11-28] MEDS ORDERED: HYDR-3363 PO (09:54)
--- NOTE | 2019-11-28 09:56 | MHDSPDOC ---
[facility] Discharge Summary Discharge Summary DATE OF ADMISSION: Nov 23, 2019 at 15:42 DATE OF DISCHARGE: 11/28/19 Discharge Cely Galindo MRN: N/A Date of : N/A Date of Service: 11/28/2019 Diagnoses Opioid use disorder, severe. Methamphetamine use disorder, severe. Hallucinogen use disorder, severe. History of Present Illness The patient, a woman who is 34 years old, presents again after reportedly using rock and heroin, becoming reportedly psychotic, she had reported that she was otherwise unable to get her medications despite them going to the pharmacy. It appears that she had been using heroin shortly after she had left. Consultants Involved Hospitalist/PCP screening Treatment and Progress On The Unit Patient was admitted to the inpatient mental health unit. She was subsequently continued on the cross taper to 150 mg of Topiramate BID as suggested by neurology on previous admissions. She was additionally resumed on Invega with positive results with her psychosis rapidly resolving. Her depression resolved well and she elected to have injectable medication. Her EKG was within normal limits for all medication changes. She was started on the 234 mg Sustenna, then given a second shot. 2 days later she requested to leave and could not be detained further as she didn't meet involuntary criteria, discussed with the patient at length the risks and benefits of a earlier shot versus waiting an extra day, the patient elected after a discussion to have the injection now prior to leaving as she did not want to have oral medications. She had no major behavioral problems on the unit. Discharge Assessment 34-year-old woman with significant drug problems, presents with psychosis, a frequent presentation for her. She is treated appropriately, subsequently placed on Invega and put onto an injectable to help reduce the potential for returning for readmission. The patient at the time of discharge did not meet criteria for involuntary admission/extension due to having a normal mental status exam, improved insight into the situation, They are engaged in the discharge process, as well as being friendly and amenable in behavioral control and havent been engaging in any observed concerning behavior or ideation recently. They decline voluntary extension/admission at this time and must be discharged in good sahra, as Im unable to make a case for holding the patient against their will. They may have historical risk factors of admissions and other interactions with psychiatry however, those are not modifiable from a clinical perspective. The patient will need to be discharged in good sahra. Mental Status Examination General: Well dressed with good hygiene Speech: Spontaneous and fluid Thought processes: Linear and logical MSK: Smooth and coordinated gait, no signs of tremors or involuntary orofacial movements Thought content: Future orientated Abstract reasoning, and computation: Intact Description of associations: Intact Description of abnormal or psychotic thoughts: Denies any suicidal or homicidal ideation. Denies any auditory or visual hallucinations. Does not appear to be responding to internal stimuli. Does not appear to be endorsing any bizarre or paranoid ideation. Judgment: Improved Insight: Improved Orientation: Alert and orientated 3 Cognition: Grossly normal Recent and remote memory: Intact Attention span and concentration: Intact Fund of knowledge: Adequate Mood: "okay" Affect: Euthymic with a full range Follow Up The social work team worked during the predischarge meeting in order to evaluate for further issues of lethality address them fully before discharge. They worked on safety planning with the patient's family members in order to ensure that the patient will have a safe and effective discharge. Time Spent The amount of time spent in the coordination of care for this patient was approximately 45 minutes. Tuesday Vital Signs/I&Os Vital Signs Date Time Temp Pulse Resp B/P (MAP) Pulse Ox O2 Delivery O2 Flow Rate FiO2 11/28/19 06:07 99.1 60 16 98/44 (62) 11/26/19 06:24 99 Room Air Medications Scheduled Buprenorphine HCl/Naloxone HCl (Buprenorphin-Naloxon 8-2 mg Sl) 1 Each Tab.subl, 1 TAB SL BID, (Reported) Nicotine (Nicotine Patch) 21 Mg Patch.td24, 1 PATCH TD DAILY for tobacco for 30 Days, #30 Oxybutynin Chloride (Oxybutynin Chloride) 5 Mg Tablet, 5 MG PO BID, (Reported) Sertraline HCl (Sertraline HCl) 50 Mg Tablet, 100 MG PO DAILY, (Reported) Topiramate (Topiramate) 100 Mg Tablet, 1.5 TAB PO BID for sz for 7 Days, #14 Scheduled PRN Hydroxyzine HCl (Hydroxyzine HCl) 25 Mg Tablet, 25 MG PO Q6HP PRN for ANXIETY for 7 Days, #7 Trazodone HCl (Trazodone HCl) 100 Mg Tablet, 100 MG PO QHS PRN for SLEEP, (Reported) Allergies Coded Allergies: No Known Allergies (Verified , 02/22/18) ORI MALONE DO Nov 28, 2019 09:56
[2019-11-28] MEDS ORDERED: PALIPERIDONE PALMITATE 156MG/1ML INJ(INVEGA)(FREE PSY INPT ONLY) IM ONE (12:00)
== END 2019-11-28 12:50 | disposition home or self-care (01) | DRG 773 ==
LOC: M ED 10:06 → M ED INP 15:42 → M PSY 17:20
PROVIDERS: ADMIT Psychiatry & Neurology Addiction Medicine; ATTEND Psychiatry & Neurology Addiction Medicine
DX: F11.259 Opioid dependence with opioid-induced psychotic disorder, unspecified (principal); F15.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, uncomplicated; F16.259 Hallucinogen dependence with hallucinogen-induced psychotic disorder, unspecified; Z81.8 Family history of other mental and behavioral disorders; Z79.899 Other long term (current) drug therapy

== ENCOUNTER 2020-01-17 11:00 | Emergency (ER) | payer MEDICAID ==
[~2020-01-17] VITALS: Ht 154.9 cm; Wt 54.1 kg
[~2020-01-17 11:00] MED LIST changes: -BUPR150T3 PO; +BUPR150T4 PO; +DIVA250T67 PO; -FLUO10CA15 PO; +FLUO10CA16 PO; +GABA-282 PO; -GABA-843 PO; +HYDR-3363 PO; -MAG400TA PO; +MAGN400T35 PO; +QUET50TA3; +QUET50TA3 PO; -QUET5TAB; -QUET5TAB PO; +RISP-8 PO; -RISP1TAB3 PO
[2020-01-17] MEDS ORDERED: INVE156I (11:09)
[2020-01-17] MEDS ORDERED: LIDOCAINE 1% MDV 20ML VIAL SC ONE (12:00)
[2020-01-17] MEDS ORDERED: BACT800T5 PO (12:59)
[2020-01-17] MEDS ORDERED: BACTRIM 160MG/800MG DS TAB PO ONE (13:00)
[2020-01-17 13:12] VITALS: BP 111/69
[2020-01-17] MEDS ORDERED: LIDOCAINE W/EPINEPHRINE 1% 20ML VIAL SC ONE (13:15)
[2020-01-20] MEDS ORDERED: KEFL500C17 PO (14:51)
[2020-04-02] MEDS ORDERED: GABA-282 PO (10:07)
[2020-04-02] MEDS ORDERED: MIRT-62 PO (10:07)
[2020-06-02] MEDS ORDERED: MIRT-62 PO (13:26)
[2020-06-02] MEDS ORDERED: AMIT25TA17 PO (16:26)
[2020-06-09] MEDS ORDERED: MIRT-62 PO (14:46)
[2020-06-16] MEDS ORDERED: MIRT-60 PO (20:11)
[2020-07-15] MEDS ORDERED: PRAZ1CAP (09:27)
== END 2020-01-17 13:13 | disposition home or self-care (01) ==
LOC: M ED 11:00
DX: L02.611 Cutaneous abscess of right foot (principal); F17.200 Nicotine dependence, unspecified, uncomplicated; Z79.899 Other long term (current) drug therapy; G43.909 Migraine, unspecified, not intractable, without status migrainosus; M79.7 Fibromyalgia; F32.9 Major depressive disorder, single episode, unspecified; F20.9 Schizophrenia, unspecified; B96.20 Unspecified Escherichia coli [E. coli] as the cause of diseases classified elsewhere

== ENCOUNTER 2020-02-23 08:00 | Inpatient (IN) | payer MEDICAID ==
[~2020-02-23 08:00] MED LIST changes: +BUPR150T3 PO; -BUPR150T4 PO; -GABA-282 PO; +GABA-843 PO; +INVE156I; +MAG400TA PO; -MAGN400T35 PO; -QUET50TA3; -QUET50TA3 PO; +QUET5TAB; +QUET5TAB PO; -RISP-8 PO; +RISP1TAB3 PO
[2020-02-23] MEDS ORDERED: TOPIRAMATE (TopAMAX) 100 MG TAB ONE (22:12)
[2020-02-23] MEDS ORDERED: traZODone 50 MG TAB ONE (22:12)
[2020-02-23] MEDS ORDERED: TOPIRAMATE (TopAMAX) 25 MG TAB ONE (22:12)
[2020-02-23] MEDS ORDERED: THIAMINE 100 MG TAB ONE (22:12)
[2020-02-23] MEDS ORDERED: ACETAMINOPHEN TAB 650MG DOSE (2X325MG) ONE (22:16)
[2020-02-24] MEDS ORDERED: TOPIRAMATE (TopAMAX) 100 MG TAB ONE ×4 (09:51→22:53)
[2020-02-24] MEDS ORDERED: ACETAMINOPHEN TAB 650MG DOSE (2X325MG) ONE ×4 (09:51→16:01)
[2020-02-24] MEDS ORDERED: FOLIC ACID 1 MG TAB ONE ×2 (09:51→09:53)
[2020-02-24] MEDS ORDERED: BUPRENORPHINE/NALOXONE 8-2MG SUBLINGUAL TABLET(SUBOXONE) ONE ×4 (09:51→14:31)
[2020-02-24] MEDS ORDERED: MULTIVITAMINS/MINERALS THERAP 1 TAB ONE ×2 (09:51→09:53)
[2020-02-24] MEDS ORDERED: TOPIRAMATE (TopAMAX) 25 MG TAB ONE ×2 (09:51)
[2020-02-24] MEDS ORDERED: THIAMINE 100 MG TAB ONE ×2 (09:51→09:52)
[2020-02-24] MEDS ORDERED: NICOTINE 21MG/24HR 1 EA TRANSDERMAL ONE (12:08)
[2020-02-24] MEDS ORDERED: CEPACOL LOZENGE ONE ×6 (12:08→22:53)
[2020-02-24] MEDS ORDERED: IBUPROFEN 400 MG TAB ONE ×4 (12:08→22:57)
[2020-02-24] MEDS ORDERED: traZODone 100 MG TAB ONE ×2 (22:51→22:52)
[2020-02-25] MEDS ORDERED: FOLIC ACID 1 MG TAB ONE (10:43)
[2020-02-25] MEDS ORDERED: BUPRENORPHINE/NALOXONE 8-2MG SUBLINGUAL TABLET(SUBOXONE) ONE ×2 (10:43→15:06)
[2020-02-25] MEDS ORDERED: MULTIVITAMINS/MINERALS THERAP 1 TAB ONE (10:43)
[2020-02-25] MEDS ORDERED: CEPACOL LOZENGE ONE ×2 (10:57→20:51)
[2020-02-25] MEDS ORDERED: THIAMINE 100 MG TAB ONE ×2 (11:28→20:52)
[2020-02-25] MEDS ORDERED: NICOTINE 21MG/24HR 1 EA TRANSDERMAL ONE (13:01)
[2020-02-25] MEDS ORDERED: IBUPROFEN 400 MG TAB ONE ×2 (13:02→20:52)
[2020-02-25] MEDS ORDERED: TOPIRAMATE (TopAMAX) 100 MG TAB ONE (20:51)
[2020-02-25] MEDS ORDERED: traZODone 50 MG TAB ONE (20:52)
[2020-02-26] MEDS ORDERED: MULTIVITAMINS/MINERALS THERAP 1 TAB ONE ×2 (09:12)
[2020-02-26] MEDS ORDERED: IBUPROFEN 400 MG TAB ONE ×4 (09:12→21:10)
[2020-02-26] MEDS ORDERED: THIAMINE 100 MG TAB ONE ×2 (09:12)
[2020-02-26] MEDS ORDERED: TOPIRAMATE (TopAMAX) 100 MG TAB ONE ×4 (09:12→21:10)
[2020-02-26] MEDS ORDERED: FOLIC ACID 1 MG TAB ONE ×2 (09:12)
[2020-02-26] MEDS ORDERED: NICOTINE 21MG/24HR 1 EA TRANSDERMAL ONE ×2 (09:12)
[2020-02-26] MEDS ORDERED: BUPRENORPHINE/NALOXONE 8-2MG SUBLINGUAL TABLET(SUBOXONE) ONE ×4 (09:12→12:35)
[2020-02-26] MEDS ORDERED: CEPACOL LOZENGE ONE ×4 (09:12→21:10)
[2020-02-26] MEDS ORDERED: ACETAMINOPHEN TAB 650MG DOSE (2X325MG) ONE ×2 (16:58)
[2020-02-26] MEDS ORDERED: traZODone 100 MG TAB ONE ×2 (21:10)
[2020-02-27] MEDS ORDERED: TOPIRAMATE (TopAMAX) 100 MG TAB ONE ×2 (09:13)
[2020-02-27] MEDS ORDERED: MULTIVITAMINS/MINERALS THERAP 1 TAB ONE ×2 (09:13)
[2020-02-27] MEDS ORDERED: FOLIC ACID 1 MG TAB ONE ×2 (09:13)
[2020-02-27] MEDS ORDERED: NICOTINE 21MG/24HR 1 EA TRANSDERMAL ONE ×2 (09:13)
[2020-02-27] MEDS ORDERED: BUPRENORPHINE/NALOXONE 8-2MG SUBLINGUAL TABLET(SUBOXONE) ONE ×2 (09:13)
[2020-02-27] MEDS ORDERED: TOPIRAMATE (TopAMAX) 25 MG TAB ONE ×4 (09:13→23:02)
[2020-02-27] MEDS ORDERED: ACETAMINOPHEN TAB 650MG DOSE (2X325MG) ONE ×2 (16:58)
[2020-02-27] MEDS ORDERED: PALIPERIDONE 3 MG ER TAB (INVEGA) ONE ×2 (16:58→18:50)
[2020-02-28] MEDS ORDERED: MULTIVITAMINS/MINERALS THERAP 1 TAB ONE (09:05)
[2020-02-28] MEDS ORDERED: TOPIRAMATE (TopAMAX) 100 MG TAB ONE (09:05)
[2020-02-28] MEDS ORDERED: FOLIC ACID 1 MG TAB ONE (09:05)
[2020-02-28] MEDS ORDERED: NICOTINE 21MG/24HR 1 EA TRANSDERMAL ONE (09:05)
[2020-02-28] MEDS ORDERED: PALIPERIDONE 3 MG ER TAB (INVEGA) ONE (09:05)
[2020-02-28] MEDS ORDERED: BUPRENORPHINE/NALOXONE 8-2MG SUBLINGUAL TABLET(SUBOXONE) ONE (09:05)
[2020-02-28] MEDS ORDERED: traZODone 100 MG TAB ONE (22:06)
[2020-02-28] MEDS ORDERED: TOPIRAMATE (TopAMAX) 25 MG TAB ONE (22:06)
[2020-02-29] MEDS ORDERED: PALIPERIDONE 3 MG ER TAB (INVEGA) ONE ×2 (09:15→09:16)
[2020-02-29] MEDS ORDERED: MULTIVITAMINS/MINERALS THERAP 1 TAB ONE ×2 (09:15→09:16)
[2020-02-29] MEDS ORDERED: BUPRENORPHINE/NALOXONE 8-2MG SUBLINGUAL TABLET(SUBOXONE) ONE ×2 (09:15→09:16)
[2020-02-29] MEDS ORDERED: TOPIRAMATE (TopAMAX) 100 MG TAB ONE ×3 (09:15→10:43)
[2020-02-29] MEDS ORDERED: FOLIC ACID 1 MG TAB ONE ×2 (09:15→09:16)
[2020-02-29] MEDS ORDERED: TOPIRAMATE (TopAMAX) 25 MG TAB ONE (09:15)
[2020-03-21 14:19] LABS: HEMATOCRIT 35.3 % (36.0-47.0); HEMOGLOBIN 11.9 g/dl (12.0-15.5); MEAN CORPUSCULAR HEMOGLOBIN 31.1 pg (27.0-33.0); MEAN CORPUSCULAR HGB CONC 33.7 g/dl (32.0-36.5); MEAN CORPUSCULAR VOLUME 92.2 fl (80.0-96.0); PLATELET COUNT, AUTOMATED 217 10^3/uL (150-450); RED BLOOD COUNT 3.83 10^6/uL (4.00-5.40); WHITE BLOOD COUNT 7.7 10^3/uL (4.0-10.0)
[2020-04-01 07:20] LABS: BLOOD UREA NITROGEN 7 MG/DL (7-18); CREATININE FOR GFR 0.78 MG/DL (0.55-1.30); GLOMERULAR FILTRATION RATE > 60.0 (>60); GLUCOSE, FASTING 86 MG/DL (70-100)
[2020-04-01 07:21] LABS: ALBUMIN 3.9 GM/DL (3.2-5.2); ALT/SGPT 69 IU/L (0-32); BILIRUBIN,DIRECT 0.5 MG/DL (0.0-0.2); BILIRUBIN,TOTAL 1.1 MG/DL (0.2-1.0); CARBON DIOXIDE LEVEL 24 mmol/L (20-29); CHLORIDE LEVEL 105 MEQ/L (98-107); POTASSIUM SERUM 3.7 MEQ/L (3.5-5.1); SODIUM LEVEL 137 MEQ/L (136-145); TOTAL PROTEIN 8.3 GM/DL (6.4-8.2)
[2020-04-01 07:22] LABS: ACETAMINOPHEN LEVEL < 2.0 UG/ML (10.0-30.0); ETHYL ALCOHOL (ETHANOL) < 0.003 % (0.000-0.010); HCG, SERUM QUALITATIVE NEGATIVE (NEGATIVE)
--- NOTE | 2020-04-23 12:39 | MHIPN ---
DATE: 02/27/2020 CHIEF COMPLAINT: Feels okay. SUBJECTIVE: Seen for followup in the presence of staff. Says feels okay and that she had a good night. Says has been eating. Is not sedated like yesterday. She thinks is may have been the Topamax. We had cut down the Suboxone to once a day rather than twice. MENTAL STATUS EXAMINATION: She is sitting up in bed. Somewhat superficially cooperative. Possibly a bit guarded but less so than previously. No agitation. No psychomotor retardation. She is coherent. Affect is restricted in range. Denies any suicidal thoughts or intents. Denies any hemocidal ideas or intents. No overt delusions elicited, though she is reluctant to answer questions probing into this. Judgment and insight improved but remain compromised. Is not drowsy. Appears more alert, stable, but guarded, and there is the possibility of paranoia, which she suggests is not as prominent when she is not using and therefore declines resuming Invega. Has been on Invega Sustenna as an outpatient, which was confirmed from [facility] yesterday, at 156 mg intramuscular. Was due for it about a week or so ago. PLAN: She does not wish to take the Invega injectable. She says she does not think she has "schizophrenia," and we spoke about the rationale for using the Invega. She agrees to oral Invega. Will be started on the low dose. We will look at continuing current observations, and should progress continue, will consider discharge in the next 48 hours or so. Obtaining collateral information will be important as well to help complete the picture. It is quite possible she may not have a primary psychotic disorder. It should also be noted I cannot refer to previous records, as the systems remain down today. [facility]
--- NOTE | 2020-06-03 11:12 | MHDSPDOC ---
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 Patient requested discharge after full observation after several days. Patient was likely experiencing psychotic symptoms due to substance use issues, presented multiple times before. Patient was admitted to the unit, resumed on her home medication and placed on Invega 3 mg nightly, which she took without any major incident and tolerated the medication well. She generally was unengaged as her baseline behavior. She was not posing any imminent danger to herself or others or concerning ideation that could be used to hold her against her will. During discharge, her assessment was baselines, mental status exam at baseline level of insight, her behavior was not threatening at all. Although she had mildly flat affect, her symptoms themselves do not demonstrate enough to hold her against her will in my opinion. She has posed any difficulty, has been generally cooperative, although un interested in care. Discharge patient home Invega 3 mg will be called into patients pharmacy and other home medications will be continued. No tobacco cessation or other antipsychotics. MEDICAL HISTORY: She has a history of mental health engagements, however, they are primarily substance abuse, and she has previously accepted medication. DISCHARGE ASSESSMENT:[improved] Legal status considerations: The patient at the time of discharge did not meet criteria for involuntary admission/extension due to having a improved mental status exam, improved insight into the situation, They are engaged in the discharge process, as well as being friendly and amenable in behavioral control and havent been engaging in any observed concerning behavior or ideation recently. They decline voluntary extension/admission at this time and must be discharged in good sahra, as Im unable to make a case for holding the patient against their will. They may have historical risk factors of admissions and other interactions with psychiatry however, those are not modifiable from a clinical perspective. The patient will need to be discharged in good sahra. MENTAL STATUS EXAMINATION ON DISCHARGE: Appearance: Fair. Behavior: Uninterested in engaging. Arouses to her name. Affect: Mildly flat. Overally reactive. Speech: Normal volume. Normal rate. Spontaneous and Fluid. Cognition: Grossly intact. Thought Content: No evidence of aggressive or homicidal ideation. No evidence of suicidal ideation. No evidence of delusions. Psychosis rapidly vanished. No signs of psychosis. No thoughts of self harm. Judgement: Baseline. Insight: Baseline. PLAN/FOLLOWUP ARRANGEMENTS: Follow up appointments made (PCP and MH in 5 days of D/C date) and safety plan completed. Safety Planning aspects completed prior to discharge [Medication supplies limited to 7 days with 4 refills to prevent accumulation to OD] [Family contact completed, educated on safe practices, instructed on removal and mitigation of dangerous means] [RN reviewed crisis hotline information and other aspects to empower patient to access care in interim before next appointment.] The amount of time spent in the coordination of care for this patient was approximately 30 minutes. Medications Scheduled Amitriptyline HCl (Amitriptyline HCl) 25 Mg Tablet, 25 MG PO QHS, (Reported) Buprenorphine HCl/Naloxone HCl (Suboxone 8 mg-2 mg Sl Film) 1 Each Film, 1 FILM SL BID, (Reported) Buspirone HCl (Buspirone HCl) 15 Mg Tablet, 15 MG PO TID, (Reported) Gabapentin (Gabapentin) 400 Mg Capsule, 400 MG PO QID, (Reported) Levothyroxine Sodium (Levothyroxine Sodium) 50 Mcg Tablet, 50 MCG PO DAILY, (Reported) Mirtazapine (Remeron) 15 Mg Tablet, 7.5 MG PO QHS, (Reported) Olanzapine (Olanzapine) 5 Mg Tablet, 5 MG PO BID, (Reported) Oxybutynin Chloride (Oxybutynin Chloride) 5 Mg Tablet, 5 MG PO BID for ., (Reported) Prazosin Hcl (Prazosin HCl) 1 Mg Capsule, 1 MG PO QHS, (Reported) Sertraline Hcl (Sertraline HCl) 25 Mg Tablet, 25 MG PO DAILY, (Reported) Topiramate (Topiramate) 50 Mg Tablet, 50 MG PO BID, (Reported) Topiramate (Topiramate) 100 Mg Tablet, 100 MG PO BID, (Reported) Scheduled PRN Docusate Sodium (Dok) 100 Mg Capsule, 100 MG PO TID PRN for CONSTIPATION, (Reported) Haloperidol (Haloperidol) 2 Mg Tablet, 2 MG PO Q6H PRN for AGITATION, (Reported) Allergies Coded Allergies: No Known Allergies (Verified , 06/02/20) ORI MALONE DO Jun 03, 2020 11:12
== END 2020-02-29 18:25 | disposition home or self-care (01) | DRG 773 ==
LOC: M ED 08:00 → M PSY 14:10
PROVIDERS: ADMIT Psychiatry & Neurology Addiction Medicine; ATTEND Psychiatry & Neurology Addiction Medicine
DX: F11.159 Opioid abuse with opioid-induced psychotic disorder, unspecified (principal); F15.129 Other stimulant abuse with intoxication, unspecified; F11.129 Opioid abuse with intoxication, unspecified; G40.909 Epilepsy, unspecified, not intractable, without status epilepticus; F17.200 Nicotine dependence, unspecified, uncomplicated; Z79.899 Other long term (current) drug therapy

== ENCOUNTER 2020-04-01 02:25 | Inpatient (IN) | payer MEDICAID ==
[~2020-04-01] VITALS: Ht 154.9 cm; Wt 50.9 kg
[2020-04-01 02:50] LABS: BASO % 0.6 % (0.0-1.0); EOS % 0.3 % (0.0-3.0); HEMATOCRIT 37.3 % (36.0-47.0); HEMOGLOBIN 12.6 g/dl (12.0-15.5); LYMPH # 1.9 10^3/uL (1.5-5.0); LYMPH % 27.8 % (24.0-44.0); MEAN CORPUSCULAR HEMOGLOBIN 31.3 pg (27.0-33.0); MEAN CORPUSCULAR HGB CONC 33.8 g/dl (32.0-36.5); MEAN CORPUSCULAR VOLUME 92.6 fl (80.0-96.0); MONO # 0.4 10^3/uL (0.0-0.8); MONO % 6.3 % (0.0-5.0); NEUTROPHILS # 4.3 10^3/uL (1.5-8.5); NEUTROPHILS % 64.8 % (36.0-66.0); PLATELET COUNT, AUTOMATED 263 10^3/uL (150-450); RED BLOOD COUNT 4.03 10^6/uL (4.00-5.40); WHITE BLOOD COUNT 6.7 10^3/uL (4.0-10.0)
[2020-04-01 03:20] LABS: ACETAMINOPHEN LEVEL < 2.0 UG/ML (10.0-30.0); ALBUMIN 3.6 GM/DL (3.2-5.2); ALT/SGPT 24 U/L (12-78); BILIRUBIN,DIRECT 0.2 MG/DL (0.0-0.2); BILIRUBIN,TOTAL 0.4 MG/DL (0.2-1.0); BLOOD UREA NITROGEN 6 MG/DL (7-18); CALCIUM LEVEL 8.8 MG/DL (8.5-10.1); CARBON DIOXIDE LEVEL 27 MEQ/L (21-32); CHLORIDE LEVEL 106 MEQ/L (98-107); CPK CREATINE PHOSPHOKINASE 124 U/L (26-192); CREATININE FOR GFR 0.69 MG/DL (0.55-1.30); ETHYL ALCOHOL (ETHANOL) < 0.003 % (0.000-0.010); GLOMERULAR FILTRATION RATE > 60.0 (>60); GLUCOSE, FASTING 129 MG/DL (70-100); POTASSIUM SERUM 3.2 MEQ/L (3.5-5.1); SODIUM LEVEL 140 MEQ/L (136-145); TOTAL PROTEIN 7.9 GM/DL (6.4-8.2)
[2020-04-01 04:48] LABS: AMPHETAMINES LEVEL URINE POSITIVE (NEGATIVE); BARBITURATES URINE NEGATIVE (NEGATIVE); BENZODIAZEPINES URINE NEGATIVE (NEGATIVE); CANNABINOIDS URINE POSITIVE (NEGATIVE); COCAINE METABOLITE URINE NEGATIVE (NEGATIVE); METHADONE URINE NEGATIVE (NEGATIVE); OPIATES URINE NEGATIVE (NEGATIVE); PHENCYCLIDINE URINE NEGATIVE (NEGATIVE)
[2020-04-01] MEDS ORDERED: POTASSIUM CHLORIDE 10 MEQ SR TABLET As Ordered ONE (08:41)
[2020-04-01] MEDS ORDERED: NS 1,000 ML IV ONE (08:45)
[2020-04-01] MEDS ORDERED: POTASSIUM CHLORIDE 10 MEQ SR TABLET PO ONE (08:45)
[2020-04-01 09:11] LABS: MAGNESIUM LEVEL 1.8 MG/DL (1.8-2.4)
[2020-04-01] MEDS ORDERED: ACETAMINOPHEN TAB 650MG DOSE (2X325MG) PO PRN (11:15)
[2020-04-01] MEDS ORDERED: MOM 30ML SUSPENSION UDC PO PRN (11:15)
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
[2020-04-01 17:00] VITALS: BP 143/94
[2020-04-01] MEDS: DOCUSATE SODIUM 100 MG CAP PO SCH (20:53)
[2020-04-01] MEDS: NS 1,000 ML IV SCH (21:02)
[2020-04-01 22:00] VITALS: BP 126/80
[2020-04-01 22:38] VITALS: BP 125/80
[2020-04-02] MEDS: NS 1,000 ML IV SCH ×2 (04:35→12:38)
[2020-04-02 06:00] VITALS: BP 129/80
[2020-04-02 06:24] LABS: BASO % 0.6 % (0.0-1.0); EOS # 0.1 10^3/uL (0.0-0.5); HEMATOCRIT 33.8 % (36.0-47.0); HEMOGLOBIN 11.2 g/dl (12.0-15.5); LYMPH # 2.2 10^3/uL (1.5-5.0); LYMPH % 42.2 % (24.0-44.0); MEAN CORPUSCULAR HEMOGLOBIN 31.1 pg (27.0-33.0); MEAN CORPUSCULAR HGB CONC 33.1 g/dl (32.0-36.5); MEAN CORPUSCULAR VOLUME 93.9 fl (80.0-96.0); MONO # 0.3 10^3/uL (0.0-0.8); MONO % 5.8 % (0.0-5.0); NEUTROPHILS # 2.6 10^3/uL (1.5-8.5); PLATELET COUNT, AUTOMATED 208 10^3/uL (150-450); WHITE BLOOD COUNT 5.2 10^3/uL (4.0-10.0)
[2020-04-02 06:49] LABS: ALBUMIN 2.8 GM/DL (3.2-5.2); ALT/SGPT 16 U/L (12-78); BILIRUBIN,TOTAL 0.4 MG/DL (0.2-1.0); BLOOD UREA NITROGEN 10 MG/DL (7-18); CALCIUM LEVEL 8.2 MG/DL (8.5-10.1); CARBON DIOXIDE LEVEL 23 MEQ/L (21-32); CHLORIDE LEVEL 113 MEQ/L (98-107); CREATININE FOR GFR 0.51 MG/DL (0.55-1.30); GLOMERULAR FILTRATION RATE > 60.0 (>60); GLUCOSE, FASTING 86 MG/DL (70-100); MAGNESIUM LEVEL 1.6 MG/DL (1.8-2.4); PHOSPHORUS LEVEL 2.5 MG/DL (2.5-4.9); POTASSIUM SERUM 3.8 MEQ/L (3.5-5.1); SODIUM LEVEL 142 MEQ/L (136-145); TOTAL PROTEIN 6.2 GM/DL (6.4-8.2)
[2020-04-02] MEDS: DOCUSATE SODIUM 100 MG CAP PO SCH ×2 (09:00→20:10)
[2020-04-02] MEDS ORDERED: PALIPERIDONE 3 MG ER TAB (INVEGA) PO SCH (09:00)
[2020-04-02] MEDS ORDERED: ENOXAPARIN 40MG/0.4ML SYRINGE (J1650 PER 10MG) SC SCH (09:00)
[2020-04-02] MEDS ORDERED: XULA1DIS TOP (10:07)
[2020-04-02] MEDS ORDERED: TRAZ-257 PO (10:07)
[2020-04-02] MEDS ORDERED: GABA-843 PO (10:07)
[2020-04-02] MEDS ORDERED: PALI1TAB2 PO (10:07)
[2020-04-02] MEDS ORDERED: BUSP15TA47 PO (10:07)
[2020-04-02] MEDS ORDERED: OXYB5TAB10 PO (10:07)
[2020-04-02] MEDS ORDERED: GABA-1171 PO (10:07)
[2020-04-02] MEDS ORDERED: REME15TA PO (10:07)
[2020-04-02] MEDS ORDERED: SUBO8MIS SL (10:07)
[2020-04-02] MEDS ORDERED: DOK1CAP7 PO (10:07)
[2020-04-02] MEDS ORDERED: DOCUSATE SODIUM 100 MG CAP PO PRN (11:30)
[2020-04-02] MEDS: oxyBUTYnin 5 MG TAB PO SCH ×2 (12:27→20:10)
[2020-04-02] MEDS: GABAPENTIN 300 MG CAP PO SCH ×2 (12:27→20:10)
[2020-04-02] MEDS: busPIRone 5 MG TAB PO SCH ×3 (12:28→20:10)
[2020-04-02] MEDS: BUPRENORPHINE/NALOXONE 8-2MG SUBLINGUAL TABLET(SUBOXONE) SL SCH ×2 (12:33→20:19)
[2020-04-02 14:00] VITALS: BP 128/76
[2020-04-02] MEDS ORDERED: ACET1TAB55 PO (20:00)
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
[2020-04-02] MEDS ORDERED: traZODone 100 MG TAB PO SCH (21:00)
[2020-04-02 22:00] VITALS: BP 127/77
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
--- NOTE | 2020-04-09 11:23 | ECGEPIP ---
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
== END 2020-04-03 00:40 | DRG 773 ==
LOC: M ED 02:25 → M ED INP 11:06 → ENRESERV 15:06 → M MSPAV 17:00
PROVIDERS: ADMIT Family Medicine; ATTEND Family Medicine
DX: F15.129 Other stimulant abuse with intoxication, unspecified (principal); F11.10 Opioid abuse, uncomplicated; F12.129 Cannabis abuse with intoxication, unspecified; E87.6 Hypokalemia; F29 Unspecified psychosis not due to a substance or known physiological condition; F31.9 Bipolar disorder, unspecified; I45.81 Long QT syndrome; F25.9 Schizoaffective disorder, unspecified; Z79.899 Other long term (current) drug therapy; Z81.8 Family history of other mental and behavioral disorders

== ENCOUNTER 2020-04-02 23:41 | Inpatient (IN) | payer MEDICAID ==
[~2020-04-02] VITALS: Ht 154.9 cm; Wt 50.9 kg
[~2020-04-02 23:41] MED LIST changes: +ACET1TAB55 PO; +BUSP15TA47 PO; +DOK1CAP7 PO; +REME15TA PO; +XULA1DIS TOP
[2020-04-03] MEDS ORDERED: traZODone 50 MG TAB PO PRN
[2020-04-03] MEDS ORDERED: ACETAMINOPHEN TAB 650MG DOSE (2X325MG) PO PRN
[2020-04-03] MEDS ORDERED: MAALOX 30 ML SUSP *UDC PO PRN
[2020-04-03 06:46] VITALS: BP 120/63
--- NOTE | 2020-04-03 08:15 | MHHPEPDOC ---
[facility] History & Physical History and Physical DATE OF ADMISSION: Apr 03, 2020 at 00:50 Subjective HPI: Cely presents today for concerns regarding psychotic thoughts and were she was medically hospitalized before being admitted. Patient states she relapsed on methamphetamine, bath salts, and heroine for a few weeks. She feels like people are out to get her but is unsure who. She has not been taking her Invega. Denies suicidal or homicidal ideations. Patient lives by herself and is not working currently. MEDICAL HISTORY: Past medical history is that patient has a history of multiple admissions and primarily substance induced psychotic disorder. She previously been on Invega and has not been taking it. FAMILY HISTORY: Patient is unsure of family members specific mental health histories. SOCIAL HISTORY - LIVING SITUATION: Patient lives alone currently on disability and is unemployed. Objective Appearance: Hygiene is fair. Behavior: Patient is laying in bed, tired and sedated. Engages superficially. Cognition: Appeaars to be slowed, secondary to sedation. Thought Form: Appears linear. Thought Content: She endorses the thought that people are out to get her, however, she does not appear to have much conviction about this. Denies any suicidal or homicidal ideation. Judgement: Appears to be at baseline. Insight: Appears to be at baseline. Assessment F23 Brief psychotic disorder F19.10 Other psychoactive substance abuse, uncomplicated Plan Hold off on Invega and will likely monitor closely due to history of QTC prolongation. She will likely be repeating EKG to ensure no extensive problem. She was seen by cardiology on the medical floor as her history of significant drug use puts her at risk from dying from this, however, this is unlikely to be psychiatric. Her priorities are altered thoughts, substance use, and non-compliance. Estimate length of stay is 1-3 days. Substance use as above significant amounts of various ones. Patient presented to the inpatient mental health unit after being seen in consultation on the medical floor. Note is not available at this time, and inferences are made from the chart. Vital Signs Vital Signs Date Time Temp Pulse Resp B/P (MAP) Pulse Ox O2 Delivery O2 Flow Rate FiO2 04/03/20 06:46 98.9 59 16 120/63 (82) 99 Room Air Medications Scheduled Buprenorphine HCl/Naloxone HCl (Suboxone 8 mg-2 mg Sl Film) 1 Each Film, 1 FILM SL BID for ., (Reported) Buspirone HCl (Buspirone HCl) 15 Mg Tablet, 15 MG PO TID for ., (Reported) Gabapentin (Gabapentin) 300 Mg Capsule, 300 MG PO BID for ., (Reported) Norelgestromin/Ethin.estradiol (Xulane Patch) 1 Each Patch.tdwk, 1 PATCH TOP ASDIRECTED for ., (Reported) APPLY PATCH FOR 3 WEEKS THEN REMOVE FOR 1 WEEK, PATIENT WAS DUE TO PLACE A NEW PATCH ON 04/01/20 Oxybutynin Chloride (Oxybutynin Chloride) 5 Mg Tablet, 5 MG PO BID for ., (Reported) Paliperidone (Paliperidone ER) 3 Mg Tab.er.24, 3 MG PO DAILY for ., (Reported) Trazodone HCl (Trazodone HCl) 100 Mg Tablet, 100 MG PO QHS for ., (Reported) Scheduled PRN Docusate Sodium (Dok) 100 Mg Capsule, 100 MG PO TID PRN for CONSTIPATION, (Reported) Allergies Coded Allergies: No Known Allergies (Verified , 02/22/18) ORI MALONE DO Apr 03, 2020 08:15
[2020-04-03] MEDS: PALIPERIDONE 3 MG ER TAB (INVEGA) PO SCH (11:29)
[2020-04-03] MEDS: busPIRone 5 MG TAB PO SCH ×4 (11:29→23:19)
[2020-04-03] MEDS: BUPRENORPHINE/NALOXONE 8-2MG SUBLINGUAL TABLET(SUBOXONE) SL SCH ×3 (11:29→23:19)
[2020-04-03] MEDS: oxyBUTYnin 5 MG TAB PO SCH ×3 (11:29→23:19)
[2020-04-03] MEDS: GABAPENTIN 300 MG CAP PO SCH ×3 (11:29→23:18)
--- NOTE | 2020-04-03 13:10 | HPEPDOC ---
General Date of Admission Apr 03, 2020 at 00:50 Date of Service: Apr 03, 2020 Chief Complaint The patient is a 34-year-old female admitted with a reason for visit of Unspecified Psychotic Disorder. History of Present Illness 34 YO female with multiple admissions in [facility] in the past, this time was transfered from medical unit where she was admitted with Drug OD. Pt transfered to [facility] for addiction therapy, no history of Suicidal or homicak plans or ideations as per records. When asked patient, she Syas " I dont know ,why I am here" and thenrolls over and falls asleep. Unable to obtain history secondary to non cooperation. hx was obtained from Nursing staff and reviewing her old charts. Home Medications Scheduled Buprenorphine HCl/Naloxone HCl (Suboxone 8 mg-2 mg Sl Film) 1 Each Film, 1 FILM SL BID for ., (Reported) Buspirone HCl (Buspirone HCl) 15 Mg Tablet, 15 MG PO TID for ., (Reported) Gabapentin (Gabapentin) 300 Mg Capsule, 300 MG PO BID for ., (Reported) Norelgestromin/Ethin.estradiol (Xulane Patch) 1 Each Patch.tdwk, 1 PATCH TOP ASDIRECTED for ., (Reported) APPLY PATCH FOR 3 WEEKS THEN REMOVE FOR 1 WEEK, PATIENT WAS DUE TO PLACE A NEW PATCH ON 04/01/20 Oxybutynin Chloride (Oxybutynin Chloride) 5 Mg Tablet, 5 MG PO BID for ., (Reported) Paliperidone (Paliperidone ER) 3 Mg Tab.er.24, 3 MG PO DAILY for ., (Reported) Trazodone HCl (Trazodone HCl) 100 Mg Tablet, 100 MG PO QHS for ., (Reported) Scheduled PRN Docusate Sodium (Dok) 100 Mg Capsule, 100 MG PO TID PRN for CONSTIPATION, (Reported) Allergies Coded Allergies: No Known Allergies (Verified , 02/22/18) Past Medical History Medical History History of cardiac arrest in 2011, status post successful resuscitation with ejection fraction 35% at that time , which significantly improved by 2016 and returned to normal. History of borderline QT prolongation, which was thought to be due to her psychiatric medications. History of schizophrenia. Anxiety. Depression. Post-traumatic stress disorder. Hepatitis C. Polysubstance abuse Long QT interval Depression Bipolar disorder Surgical History section with hernia repair. Family History family history positive for CAD asper old records Social History * Smoker: Denies, other (Unknown) Alcohol: Denies Drugs: IV drug use, other (Meth) A-FIB/CHADSVASC A-FIB History Current/History of A-Fib/PAF?: No Review of Systems Constitutional: Denies: Chills, Fever, Malaise, Night Sweats, Weakness, Fatigue, Weight Loss, Lethargy, Other Eyes: Denies: Pain, Vision change, Conjunctivae inflammation, Eyelid inflammation, Redness, Other ENT: Denies: Head Aches, Ear Pain, Dysphagia, Sinus Congestion, Post Nasal Drip, Sore Throat, Epistaxis, Other Symptoms Skin: Denies: Rash, Lesions, Jaundice, Bruising, Itching, Dry, Breakdown, Nail Changes, Other Pulmonary: Denies: Dyspnea, Cough, Pleuritic Chest Pain, Other Symptoms Cardiovascular: Denies: Chest Pain, Palpitations, Orthopnea, Paroxysmal Noc. Dyspnea, Edema, Lt Headedness, Other Symptoms Gastrointestinal: Denies: Nausea, Vomiting, Abdominal Pain, Diarrhea, Constipation, Melena, Hematochezia, Other Symptoms Genitourinary: Denies: Dysuria, Frequency, Incontinence, Hematuria, Retention, Other Symptoms Hematologic: Denies: Bruising, Bleeding Excessively, Petecchia, Purpura, Enlarged Lymph Nodes, Other Hematologic Endocrine: Denies: Polydipsia, Polyphagia, Polyuria, Heat Intolerance, Cold Intolerance, Other Endocrine Sx Musculoskeletal: Denies: Neck Pain, Back Pain, Shoulder Pain, Arm Pain, Hand Pain, Leg Pain, Foot Pain, Joint Pain, Muscle Pain, Spasms, Other Symptoms Neurological: Denies: Weakness, Numbness, Incoordination, Change in speech, Confusion, Seizures, Other Symptoms Psych: Denies: Mood Normal, Anxiety, Depression, Memory Issues, Thoughts of Self Harm, Anger, Thoughts of Harming Other, Other Psych Physical Examination General Exam: Positive: Alert, Cooperative Eye Exam: Positive: PERRLA ENT Exam: Positive: Atraumatic Neck Exam: Positive: Supple Chest Exam: Positive: Clear to auscultation, Normal air movement Heart Exam: Positive: Rate Normal, Normal S1, Normal S2 Abdomen Exam: Positive: Normal bowel sounds, Soft Extremity Exam: Positive: Normal pulses Skin Exam: Positive: Nl turgor and temperature Neuro Exam: Positive: Strength at 5/5 X4 ext Psych Exam: Positive: Mental status NL, Oriented x 3 Vital Signs Vital Signs Date Time Temp Pulse Resp B/P (MAP) Pulse Ox O2 Delivery O2 Flow Rate FiO2 04/03/20 06:46 98.9 59 16 120/63 (82) 99 Room Air Problems (1) Depression Status: Acute Problem Text: pt admitted to [facility] individual and group councelling as per psych Pharmaceutical intervention as per psych (2) Psychosis Status: Acute Problem Text: as above (3) Polysubstance abuse Status: Acute Problem Text: councelling as per psych Plan / VTE VTE Prophylaxis Ordered?: No VTE Exclusion Mechanical Proph: Low Risk for VTE VTE Exclusion Pharmacological: At Low Risk for VTE LILY COREAS MD Apr 03, 2020 13:10
[2020-04-03 16:55] VITALS: BP 156/85
[2020-04-03] MEDS: traZODone 100 MG TAB PO SCH ×2 (21:00→23:19)
[2020-04-03] MEDS ORDERED: NALOXONE INJ 0.4MG/1ML VIAL (J2310 PER 1MG) IV STA (22:30)
[2020-04-03 23:32] LABS: HEMATOCRIT 37.5 % (36.0-47.0); HEMOGLOBIN 12.4 g/dl (12.0-15.5); MEAN CORPUSCULAR HEMOGLOBIN 31.3 pg (27.0-33.0); MEAN CORPUSCULAR HGB CONC 33.1 g/dl (32.0-36.5); MEAN CORPUSCULAR VOLUME 94.7 fl (80.0-96.0); PLATELET COUNT, AUTOMATED 229 10^3/uL (150-450); RED BLOOD COUNT 3.96 10^6/uL (4.00-5.40); WHITE BLOOD COUNT 6.8 10^3/uL (4.0-10.0)
[2020-04-03 23:45] VITALS: BP 132/80
[2020-04-04 00:05] LABS: ALBUMIN 2.8 GM/DL (3.2-5.2); ALT/SGPT 16 U/L (12-78); BILIRUBIN,TOTAL 0.2 MG/DL (0.2-1.0); BLOOD UREA NITROGEN 11 MG/DL (7-18); CALCIUM LEVEL 8.3 MG/DL (8.5-10.1); CARBON DIOXIDE LEVEL 26 MEQ/L (21-32); CHLORIDE LEVEL 109 MEQ/L (98-107); CREATININE FOR GFR 0.64 MG/DL (0.55-1.30); GLOMERULAR FILTRATION RATE > 60.0 (>60); GLUCOSE, FASTING 94 MG/DL (70-100); SODIUM LEVEL 142 MEQ/L (136-145); TOTAL PROTEIN 6.7 GM/DL (6.4-8.2)
[2020-04-04 06:45] VITALS: BP 101/52
[2020-04-04] MEDS: PALIPERIDONE 3 MG ER TAB (INVEGA) PO SCH (10:22)
[2020-04-04] MEDS ORDERED: BUPRENORPHINE/NALOXONE 8-2MG SUBLINGUAL TABLET(SUBOXONE) SL SCH (15:45)
[2020-04-04] MEDS: BUPRENORPHINE/NALOXONE 8-2MG SUBLINGUAL TABLET(SUBOXONE) SL SCH (17:00)
[2020-04-04] MEDS: busPIRone 5 MG TAB PO SCH ×2 (17:00→21:43)
[2020-04-04 19:24] VITALS: BP 117/84
[2020-04-04] MEDS: oxyBUTYnin 5 MG TAB PO SCH (21:43)
[2020-04-04] MEDS: GABAPENTIN 300 MG CAP PO SCH (21:43)
[2020-04-05 06:36] VITALS: BP 118/69
[2020-04-05] MEDS: busPIRone 5 MG TAB PO SCH ×4 (08:26→22:48)
[2020-04-05] MEDS: oxyBUTYnin 5 MG TAB PO SCH ×3 (08:26→22:48)
[2020-04-05] MEDS: PALIPERIDONE 3 MG ER TAB (INVEGA) PO SCH (08:26)
[2020-04-05] MEDS: GABAPENTIN 300 MG CAP PO SCH ×3 (08:26→22:48)
[2020-04-05] MEDS: BUPRENORPHINE/NALOXONE 8-2MG SUBLINGUAL TABLET(SUBOXONE) SL SCH ×2 (08:40→15:00)
[2020-04-05] MEDS: traZODone 100 MG TAB PO SCH ×2 (21:00→22:48)
[2020-04-06 06:49] VITALS: BP 115/71
[2020-04-06] MEDS: oxyBUTYnin 5 MG TAB PO SCH ×2 (08:09→22:05)
[2020-04-06] MEDS: GABAPENTIN 300 MG CAP PO SCH ×2 (08:10→22:05)
[2020-04-06] MEDS: busPIRone 5 MG TAB PO SCH ×3 (08:10→22:06)
[2020-04-06] MEDS: PALIPERIDONE 3 MG ER TAB (INVEGA) PO SCH (08:10)
[2020-04-06] MEDS: BUPRENORPHINE/NALOXONE 8-2MG SUBLINGUAL TABLET(SUBOXONE) SL SCH ×2 (08:11→14:31)
[2020-04-06] MEDS: NICOTINE 21MG/24HR 1 EA TRANSDERMAL TD SCH (12:47)
--- NOTE | 2020-04-06 16:14 | MHIPN ---
DATE: 04/05/2020 VITAL SIGNS: Blood pressure 108/69, pulse 82, temperature 98.1. CHIEF COMPLAINT: Feels anxious. OBJECTIVE: Seen in follow-up; this is in the presence of staff. She says she has been feeling anxious, concerned that ex- and some of his friends maybe out to kill her. She says she has been feeling a bit better since coming in, but the anxiety remains, as are these concerns. She hears voices, says can at times make out what they say. She suggests that the voices are more prominent when she uses. She hears them on other occasions, when she is not using, as well. Had thought that her had been giving her drugs a couple of days ago, she suggests also, that he was not in fact there. Appetite is fair. MENTAL STATUS EXAMINATION: She is lying in bed. She is a bit guarded. She is neat, less restless than she has been in the past. She is coherent. Affect is restricted in range. Denies any suicidal thoughts or intents. Does not appear to internally preoccupied at present, but has delusions, paranoid ones. Judgment and insight are quite questionable. ASSESSMENT: 1. Unspecified psychotic disorder. 2. Amphetamine use disorder. PLAN: Continue current care, observations, will continue with Paliperidone at 3 mg daily, but may need to consider an increase in the dosage. Encouraged participation in activities on the unit. Further recommendations will be made depending on the clinical picture. MTDD
[2020-04-06 19:04] VITALS: BP 114/59
[2020-04-06] MEDS: traZODone 100 MG TAB PO SCH (22:05)
[2020-04-06] MEDS: MIRTAZAPINE 15 MG TAB PO SCH (22:05)
[2020-04-07 06:39] VITALS: BP 110/59
[2020-04-07] MEDS: BUPRENORPHINE/NALOXONE 8-2MG SUBLINGUAL TABLET(SUBOXONE) SL SCH ×2 (08:22→15:18)
[2020-04-07] MEDS: GABAPENTIN 300 MG CAP PO SCH ×2 (08:22→20:05)
[2020-04-07] MEDS: PALIPERIDONE 3 MG ER TAB (INVEGA) PO SCH (08:22)
[2020-04-07] MEDS: oxyBUTYnin 5 MG TAB PO SCH ×2 (08:22→20:04)
[2020-04-07] MEDS: busPIRone 5 MG TAB PO SCH ×3 (08:22→20:04)
[2020-04-07] MEDS: NICOTINE 21MG/24HR 1 EA TRANSDERMAL TD SCH (08:23)
--- NOTE | 2020-04-07 09:55 | MHIPNPDOC ---
[facility] Progress Note Progress Note DATE OF SERVICE: 04/07/20 Subjective HPI: Patient was met with today. She reports that she is interested in going to rehab, however nursing staff has reported that she is much more interested in things, and she is much more engaged. The Patient reports that she is much more focused and less problematic. She is engaged, going to groups. Still has some unusual thoughts about people wanting to kill her, but does not appear overtly interested in this. The Patient is open to rehab, and asks about increasing her anxiety med and Gabapentin as she reports that she still has times during the day when she feels quite anxious. Objective Appearance: Hygeine fair. Speech: Fluid. Cognition: Grossly intact. Thought Form: Generally more linear. More logical. Less flatness and graphic. More euthymic. Judgement: Improving. Insight: Improving. Assessment F19.129 Other psychoactive substance abuse with intoxication, unspecified F29 Unspecified psychosis not due to a substance or known physiological condition Plan Continue Invega 3 mg. Will increase Gabapentin with a 300 mg daily PRN combined with her 300 mg already scheduled. Will continue her other medications this time. Will engage in referral to Addiction Rehab as this will be critical although not normally practiced given her extremely high risk of relapse and , especially given her history. I believe it is much more appropriate for her too. Be going bed to bed as it will reduce the chance of difficulties. Vital Signs Vital Signs Date Time Temp Pulse Resp B/P (MAP) Pulse Ox O2 Delivery O2 Flow Rate FiO2 04/07/20 06:39 97.9 49 16 110/59 (76) 99 Room Air Current Medications Current Medications Medications (Trade) Dose Ordered Sig/René Route PRN Reason Start Time Stop Time Status Last Admin Dose Admin Acetaminophen (Tylenol Tab) 650 mg Q6HP PRN PO HEADACHE or DISCOMFORT 04/03/20 00:00 04/07/20 06:53 Al Hydrox/Mg Hydrox/Simethicone (Mylanta) 30 ml Q4HP PRN PO HEARTBURN/INDIGESTION 04/03/20 00:00 Buprenorphine/ Naloxone (Suboxone 8/2mg) 1 tab BID SL 04/03/20 09:00 04/04/20 15:39 DC 04/03/20 23:19 Buprenorphine/ Naloxone (Suboxone 8/2mg) 1 tab BID SL 04/04/20 15:45 04/04/20 15:40 DC Buprenorphine/ Naloxone (Suboxone 8/2mg) 1 tab BID@0900,1500 SL 04/04/20 15:00 04/07/20 08:22 Buspirone HCl (Buspar) 15 mg TID PO 04/03/20 09:00 04/07/20 08:22 Docusate Sodium (Colace) 100 mg TID PRN PO CONSTIPATION 04/03/20 01:30 Gabapentin (Neurontin) 300 mg BID PO 04/03/20 09:00 04/07/20 08:22 Home Med (Med Rec Complete!) ASDIRECTED XX 04/03/20 01:30 04/03/20 01:25 DC Magnesium Hydroxide (Milk Of Magnesia) 30 ml DAILYPRN PRN PO CONSTIPATION 04/03/20 00:00 Mirtazapine (Remeron) 30 mg QHS PO 04/06/20 21:00 04/06/20 22:05 Naloxone HCl (Narcan) 0.2 mg STAT STAT IV 04/03/20 22:30 04/03/20 22:31 Cancel Nicotine (Nicoderm Cq 21mg) 1 patch DAILY TD 04/06/20 09:00 04/07/20 08:23 Oxybutynin Chloride (Ditropan) 5 mg BID PO 04/03/20 09:00 04/07/20 08:22 Paliperidone (Invega) 3 mg DAILY PO 04/03/20 09:00 04/07/20 08:22 Trazodone HCl (Desyrel) 50 mg QHSP PRN PO INSOMNIA 04/03/20 00:00 Cancel Trazodone HCl (Desyrel) 100 mg QHS PO 04/03/20 21:00 04/06/20 22:05 Allergies Coded Allergies: No Known Allergies (Verified , 02/22/18) ORI MALONE DO Apr 07, 2020 09:55
[2020-04-07] MEDS: GABAPENTIN 300 MG CAP PO PRN (11:25)
--- NOTE | 2020-04-07 12:42 | IPNPDOC ---
Subjective Date Seen The patient was seen on 04/07/20. Subjective Chief Complaint/HPI Erythema, pain, heat right wrist. Presumes she has an infection at the site of previous drug abuse injection. General: Denies: Chills, Fatigue Constitutional: Denies: Fever Skin: Reports: Rash Pulmonary: Denies: Dyspnea, Cough Other systems Remainder of ROS negative Objective Physical Examination General Exam: Positive: Alert, Cooperative Chest Exam: Positive: Normal air movement Extremity Exam: Positive: Normal pulses Skin Exam: Positive: Nl turgor and temperature, Rash (approx 1cm area of erythema on right wrist with puntate injury from needle injection at the center) Neuro Exam: Positive: Normal Gait, Normal Speech Psych Exam: Positive: Oriented x 3 Assessment /Plan Problems (1) Cellulitis of right hand Status: Acute Problem Text: Amoxicillin 500 mg TID x 5 days Plan/VTE VTE Prophylaxis Ordered?: No VTE Exclusion Mechanical Proph: Low Risk for VTE VS, I&O, 24H, Fishbone Vital Signs/I&O Vital Signs Date Time Temp Pulse Resp B/P (MAP) Pulse Ox O2 Delivery O2 Flow Rate FiO2 04/07/20 06:39 97.9 49 16 110/59 (76) 99 Room Air DORITA BENZ Apr 07, 2020 12:42
[2020-04-07] MEDS: AMOXICILLIN 500 MG CAP PO SCH ×2 (15:18→20:04)
[2020-04-07 17:58] VITALS: BP 124/83
[2020-04-07] MEDS: MIRTAZAPINE 15 MG TAB PO SCH (20:05)
[2020-04-07] MEDS: traZODone 100 MG TAB PO SCH (20:06)
[2020-04-08 06:45] VITALS: BP 103/64
[2020-04-08] MEDS: NICOTINE 21MG/24HR 1 EA TRANSDERMAL TD SCH (08:46)
[2020-04-08] MEDS: AMOXICILLIN 500 MG CAP PO SCH ×3 (08:47→20:26)
[2020-04-08] MEDS: oxyBUTYnin 5 MG TAB PO SCH ×2 (08:48→20:26)
[2020-04-08] MEDS: BUPRENORPHINE/NALOXONE 8-2MG SUBLINGUAL TABLET(SUBOXONE) SL SCH ×2 (08:49→14:14)
[2020-04-08] MEDS: GABAPENTIN 300 MG CAP PO SCH ×2 (08:50→20:26)
[2020-04-08] MEDS: busPIRone 5 MG TAB PO SCH ×3 (08:51→20:26)
[2020-04-08] MEDS: PALIPERIDONE 3 MG ER TAB (INVEGA) PO SCH (09:00)
--- NOTE | 2020-04-08 09:54 | MHIPNPDOC ---
[facility] Progress Note Progress Note DATE OF SERVICE: 04/08/20 Subjective HPI: Cely presents today for concerns regarding her anxiety. Cely requested to restart on Zyprexa and Invega shots. She informs progress in suicidal thoughts in rehabilitation. Cely notes she is still experiencing anxiety but is exploring treatment options and rehab placement. Her linear logical denies any suicidal or homicidal thoughts. She does report some paranoid thoughts. MEDICATIONS: She has a history of taking Klonopin and Zyprexa. Cely currently takes Suboxone and Gabapentin PO QD, but informs not effective as Klonopin for her anxiety. Objective Affect: Appropriate to context. Full range. More euthymic, less flat. Cognition: Grossly intact. Alert, Attentive, and Oriented to person, place, time. Insight: Improving. Good insight into symptoms and treatment options. Assessment F41.8 Other specified anxiety disorders F19.150 Other psychoactive substance abuse with psychoactive substance-induced psychotic disorder with delusions F19.10 Other psychoactive substance abuse, uncomplicated Plan Other anxiety disorder and substance induced psychotic disorder as well as poly substance. Continue to search for rehab, although not common as bed to bed transfer would be patients highest risk for avoiding . Her present problems with drug use makes her mental health and physical health precarious. Will augment in Bedlola 3 mg with Zyprexa 5 mg queue 4 hours. Will additionally, give patient at her request, Bedolla injection 254 mg for loading. EKG tomorrow to monitor QTC, which will regularly take place as she has congenital QTC prolongation as well as some difficulties with heart. Will monitor but no cardiac signs at this time. Vital Signs Vital Signs Date Time Temp Pulse Resp B/P (MAP) Pulse Ox O2 Delivery O2 Flow Rate FiO2 04/08/20 06:45 97.0 60 16 103/64 (77) 98 Room Air Current Medications Current Medications Medications (Trade) Dose Ordered Sig/René Route PRN Reason Start Time Stop Time Status Last Admin Dose Admin Acetaminophen (Tylenol Tab) 650 mg Q6HP PRN PO HEADACHE or DISCOMFORT 04/03/20 00:00 04/07/20 06:53 Al Hydrox/Mg Hydrox/Simethicone (Mylanta) 30 ml Q4HP PRN PO HEARTBURN/INDIGESTION 04/03/20 00:00 Amoxicillin (Amoxicillin) 500 mg TID PO 04/07/20 16:00 04/12/20 15:59 04/08/20 08:47 Buprenorphine/ Naloxone (Suboxone 8/2mg) 1 tab BID SL 04/03/20 09:00 04/04/20 15:39 DC 04/03/20 23:19 Buprenorphine/ Naloxone (Suboxone 8/2mg) 1 tab BID SL 04/04/20 15:45 04/04/20 15:40 DC Buprenorphine/ Naloxone (Suboxone 8/2mg) 1 tab BID@0900,1500 SL 04/04/20 15:00 04/08/20 08:49 Buspirone HCl (Buspar) 15 mg TID PO 04/03/20 09:00 04/08/20 08:51 Docusate Sodium (Colace) 100 mg TID PRN PO CONSTIPATION 04/03/20 01:30 Gabapentin (Neurontin) 300 mg BID PO 04/03/20 09:00 04/08/20 08:50 Gabapentin (Neurontin) 300 mg DAILYPRN PRN PO anxiety 04/07/20 11:15 04/07/20 11:25 Home Med (Med Rec Complete!) ASDIRECTED XX 04/03/20 01:30 04/03/20 01:25 DC Magnesium Hydroxide (Milk Of Magnesia) 30 ml DAILYPRN PRN PO CONSTIPATION 04/03/20 00:00 Mirtazapine (Remeron) 30 mg QHS PO 04/06/20 21:00 04/07/20 20:05 Naloxone HCl (Narcan) 0.2 mg STAT STAT IV 04/03/20 22:30 04/03/20 22:31 Cancel Nicotine (Nicoderm Cq 21mg) 1 patch DAILY TD 04/06/20 09:00 04/08/20 08:46 Oxybutynin Chloride (Ditropan) 5 mg BID PO 04/03/20 09:00 04/08/20 08:48 Paliperidone (Invega) 3 mg DAILY PO 04/03/20 09:00 04/07/20 08:22 Trazodone HCl (Desyrel) 50 mg QHSP PRN PO INSOMNIA 04/03/20 00:00 Cancel Trazodone HCl (Desyrel) 100 mg QHS PO 04/03/20 21:00 04/07/20 20:06 Allergies Coded Allergies: No Known Allergies (Verified , 02/22/18) ORI MALONE DO Apr 08, 2020 09:54
[2020-04-08] MEDS: OLANZapine ORAL DISINTEGRATING TAB 5MG PO PRN ×2 (11:48→20:27)
[2020-04-08] MEDS: GABAPENTIN 300 MG CAP PO PRN (11:48)
--- NOTE | 2020-04-08 12:29 | MHIPN ---
DATE: 04/06/2020 VITAL SIGNS: Blood pressure 115/71, pulse 83, temperature 97.7. CHIEF COMPLAINT: Says feels better. SUBJECTIVE: Seen for followup. Indicates feels better, less anxious at times, but at times that remains a difficulty. She suggests that she does not have much in terms of cravings but she still gets them. Denies feeling sedated, though staff had noted that she has been tired during the day. She says that she has difficulties with sleep, says was taking Remeron at 30 mg at night, including before coming into the hospital, says it helped her. She has also been on gabapentin, takes it twice a day, says has been given it for anxiety. MENTAL STATUS EXAMINATION: She is lying in bed, later sits up, she is cooperative, less guarded, there is no agitation, no psychomotor retardation. Affect is restricted but reactive, more so than it has been. Denies any suicidal thoughts or intents at present. Does not appear to be internally preoccupied though has heard voices, no delusions at present, though persecutory delusions may be just under the surface. Judgment and insight fair. ASSESSMENT: Psychotic disorder not otherwise specified. The possibility of psychosis being drug-induced has to be taken into consideration, but part of the differential would include a primary psychotic disorder, further complicated by drug use. PLAN: Continue current care, would resume her being on Remeron, would also continue the Suboxone, but that if noted to be sedated during the day, consider holding it. Gabapentin is to continue at the current dose, probably preferable increasing the buspirone before the gabapentin. Further recommendations will be made depending on the clinical picture. I would suggest encouraging the patient to participate in activities in the unit. She will be seeing the person she is assigned to tomorrow. LUIS
[2020-04-08] MEDS ORDERED: PALIPERIDONE PALMITATE 234MG/1.5ML INJ (INVEGA)(FREE PSY INPT ONLY) IM ONE (13:00)
[2020-04-08] MEDS: NICOTINE POLACRILEX 2 MG GUM PO PRN (14:14)
[2020-04-08 18:00] VITALS: BP 139/75
[2020-04-08] MEDS: traZODone 100 MG TAB PO SCH (20:27)
[2020-04-08] MEDS: MIRTAZAPINE 15 MG TAB PO SCH (20:27)
[2020-04-09 06:33] VITALS: BP 94/54
[2020-04-09] MEDS: NICOTINE POLACRILEX 2 MG GUM PO PRN ×3 (07:17→15:35)
[2020-04-09] MEDS: PALIPERIDONE 3 MG ER TAB (INVEGA) PO SCH (08:25)
[2020-04-09] MEDS: busPIRone 5 MG TAB PO SCH ×3 (08:25→20:02)
[2020-04-09] MEDS: BUPRENORPHINE/NALOXONE 8-2MG SUBLINGUAL TABLET(SUBOXONE) SL SCH ×2 (08:25→14:06)
[2020-04-09] MEDS: NICOTINE 21MG/24HR 1 EA TRANSDERMAL TD SCH (08:25)
[2020-04-09] MEDS: oxyBUTYnin 5 MG TAB PO SCH ×2 (08:25→20:02)
[2020-04-09] MEDS: GABAPENTIN 300 MG CAP PO SCH ×2 (08:26→20:02)
[2020-04-09] MEDS: AMOXICILLIN 500 MG CAP PO SCH ×3 (08:26→20:01)
[2020-04-09] MEDS: OLANZapine ORAL DISINTEGRATING TAB 5MG PO PRN ×2 (08:26→15:35)
--- NOTE | 2020-04-09 08:55 | MHIPNPDOC ---
[facility] Progress Note Progress Note DATE OF SERVICE: 04/09/20 Subjective HPI: Cely presents today for concerns regarding her anxiety. She reports that she has significant anxiety and that she wants to improve this. The patient has met with today. She reports that the waiting list for [facility] addiction program is for weeks, so shell try other programs. MEDICATIONS: She reports that the Zyprexa has been tolerated as well as the injections. Objective Appearance: Appears to be stated age. patient lying comfortably in bed awakens discusses briefly. Well groomed. Well nourished. Affect: euthymic. less flat. Full range. Appropriate to context. Speech: Normal rate. Spontaneous and Fluid. Normal volume. Cognition: doesnt appear to respond to internal stimulus. Alert, Attentive, and Oriented to person, place, time. Thought Content: No evidence of aggressive or homicidal ideation. No evidence of suicidal ideation. no paranoid thought solicited. No thoughts of self harm. No evidence of delusions. Judgement: Intact as evidenced by decision making in the recent past. Insight: Good insight into symptoms and treatment options. Assessment F19.959 Other psychoactive substance use, unspecified with psychoactive substance-induced psychotic disorder, unspecified F19.10 Other psychoactive substance abuse, uncomplicated Plan Shes met with in a room. Shes quite tired and the interview is limited, however, she reports that shes feeling more hopeful about things, attending groups, more social in the unit. First injection given, EKG reviewed, QTC is roughly 450, which is roughly the normal range. Will repeat again prior to second injection and after in order to monitor the QTC given her hx of prolonged QTC. Well continue to try to pursue rehab bed to bed placement due to her extraordinary high risk of from her addictions. Will convert to voluntary shortly as the patient is quite amenable to being here. Shes making good progress. Substance-induced psychotic disorder Poly-substance use disorder Continue Invega Zyprexa. She reports that this combination worked well for her in the past. Vital Signs Vital Signs Date Time Temp Pulse Resp B/P (MAP) Pulse Ox O2 Delivery O2 Flow Rate FiO2 04/09/20 06:33 97.9 68 14 94/54 (67) 04/08/20 06:45 98 Room Air Current Medications Current Medications Medications (Trade) Dose Ordered Sig/René Route PRN Reason Start Time Stop Time Status Last Admin Dose Admin Acetaminophen (Tylenol Tab) 650 mg Q6HP PRN PO HEADACHE or DISCOMFORT 04/03/20 00:00 04/07/20 06:53 Al Hydrox/Mg Hydrox/Simethicone (Mylanta) 30 ml Q4HP PRN PO HEARTBURN/INDIGESTION 04/03/20 00:00 Amoxicillin (Amoxicillin) 500 mg TID PO 04/07/20 16:00 04/12/20 15:59 04/09/20 08:26 Buprenorphine/ Naloxone (Suboxone 8/2mg) 1 tab BID SL 04/03/20 09:00 04/04/20 15:39 DC 04/03/20 23:19 Buprenorphine/ Naloxone (Suboxone 8/2mg) 1 tab BID SL 04/04/20 15:45 04/04/20 15:40 DC Buprenorphine/ Naloxone (Suboxone 8/2mg) 1 tab BID@0900,1500 SL 04/04/20 15:00 04/09/20 08:25 Buspirone HCl (Buspar) 15 mg TID PO 04/03/20 09:00 04/09/20 08:25 Docusate Sodium (Colace) 100 mg TID PRN PO CONSTIPATION 04/03/20 01:30 Gabapentin (Neurontin) 300 mg BID PO 04/03/20 09:00 04/09/20 08:26 Gabapentin (Neurontin) 300 mg DAILYPRN PRN PO anxiety 04/07/20 11:15 04/08/20 11:48 Home Med (Med Rec Complete!) ASDIRECTED XX 04/03/20 01:30 04/03/20 01:25 DC Magnesium Hydroxide (Milk Of Magnesia) 30 ml DAILYPRN PRN PO CONSTIPATION 04/03/20 00:00 Mirtazapine (Remeron) 30 mg QHS PO 04/06/20 21:00 04/08/20 20:27 Naloxone HCl (Narcan) 0.2 mg STAT STAT IV 04/03/20 22:30 04/03/20 22:31 Cancel Nicotine (Nicoderm Cq 21mg) 1 patch DAILY TD 04/06/20 09:00 04/09/20 08:25 Nicotine (Nicorette) 2 mg Q2HP PRN PO NICOTINE WITHDRAWAL 04/08/20 12:00 04/09/20 07:17 Olanzapine (ZyPREXA ZYDIS) 5 mg Q6HP PRN PO ANXIETY/AGITATION 04/08/20 11:45 04/09/20 08:26 Oxybutynin Chloride (Ditropan) 5 mg BID PO 04/03/20 09:00 04/09/20 08:25 Paliperidone (Invega) 3 mg DAILY PO 04/03/20 09:00 04/09/20 08:25 Trazodone HCl (Desyrel) 50 mg QHSP PRN PO INSOMNIA 04/03/20 00:00 Cancel Trazodone HCl (Desyrel) 100 mg QHS PO 04/03/20 21:00 04/08/20 20:27 Allergies Coded Allergies: No Known Allergies (Verified , 02/22/18) ORI MALONE DO Apr 09, 2020 08:55
[2020-04-09] MEDS: GABAPENTIN 300 MG CAP PO PRN (14:06)
[2020-04-09 18:43] VITALS: BP 100/63
[2020-04-09] MEDS: MIRTAZAPINE 15 MG TAB PO SCH (20:01)
[2020-04-09] MEDS: traZODone 100 MG TAB PO SCH (20:01)
[2020-04-10 06:47] VITALS: BP 118/67
--- NOTE | 2020-04-10 07:51 | MHIPNPDOC ---
[facility] Progress Note Progress Note DATE OF SERVICE: 04/10/20 Subjective HPI: The patient is met with briefly today. She reports that she needs Topiramate for today. Shes generally engaged. She was sleeping later on the day when attempted to be met with for longer meeting. The patient has otherwise been engaged without any significant suicidal or homicidal ideation. Objective Appearance: Well groomed. Appears to be stated age. Well nourished. Behavior: Pleasant. Engaged. Cooperative with good eye contact. Does not appear to be grossly psychotic. Affect: Appropriate to context. Euthymic. Full range. Thought Form: Linear and goal directed. Thought Content: No evidence of suicidal ideation. No evidence of delusions. No thoughts of self harm. No bizarre ideation. No evidence of aggressive or homicidal ideation. Judgement: Intact as evidenced by decision making in the recent past. Insight: Good insight into symptoms and treatment options. Assessment F19.959 Other psychoactive substance use, unspecified with psychoactive substance-induced psychotic disorder, unspecified F41.9 Anxiety disorder, unspecified Plan Plan is to continue Invega and Zyprexa and continue to monitor. Will restart patient to unspecific medication 150 mg, which she had been on previously for seizure prophylaxis. Vital Signs Vital Signs Date Time Temp Pulse Resp B/P (MAP) Pulse Ox O2 Delivery O2 Flow Rate FiO2 04/10/20 06:47 98.0 73 12 118/67 (84) Room Air 04/08/20 06:45 98 Current Medications Current Medications Medications (Trade) Dose Ordered Sig/René Route PRN Reason Start Time Stop Time Status Last Admin Dose Admin Acetaminophen (Tylenol Tab) 650 mg Q6HP PRN PO HEADACHE or DISCOMFORT 04/03/20 00:00 04/07/20 06:53 Al Hydrox/Mg Hydrox/Simethicone (Mylanta) 30 ml Q4HP PRN PO HEARTBURN/INDIGESTION 04/03/20 00:00 Amoxicillin (Amoxicillin) 500 mg TID PO 04/07/20 16:00 04/12/20 15:59 04/09/20 20:01 Buprenorphine/ Naloxone (Suboxone 8/2mg) 1 tab BID SL 04/03/20 09:00 04/04/20 15:39 DC 04/03/20 23:19 Buprenorphine/ Naloxone (Suboxone 8/2mg) 1 tab BID SL 04/04/20 15:45 04/04/20 15:40 DC Buprenorphine/ Naloxone (Suboxone 8/2mg) 1 tab BID@0900,1500 SL 04/04/20 15:00 04/09/20 14:06 Buspirone HCl (Buspar) 15 mg TID PO 04/03/20 09:00 04/09/20 20:02 Docusate Sodium (Colace) 100 mg TID PRN PO CONSTIPATION 04/03/20 01:30 Gabapentin (Neurontin) 300 mg BID PO 04/03/20 09:00 04/09/20 20:02 Gabapentin (Neurontin) 300 mg DAILYPRN PRN PO anxiety 04/07/20 11:15 04/09/20 14:06 Home Med (Med Rec Complete!) ASDIRECTED XX 04/03/20 01:30 04/03/20 01:25 DC Magnesium Hydroxide (Milk Of Magnesia) 30 ml DAILYPRN PRN PO CONSTIPATION 04/03/20 00:00 Mirtazapine (Remeron) 30 mg QHS PO 04/06/20 21:00 04/09/20 20:01 Naloxone HCl (Narcan) 0.2 mg STAT STAT IV 04/03/20 22:30 04/03/20 22:31 Cancel Nicotine (Nicoderm Cq 21mg) 1 patch DAILY TD 04/06/20 09:00 04/09/20 08:25 Nicotine (Nicorette) 2 mg Q2HP PRN PO NICOTINE WITHDRAWAL 04/08/20 12:00 04/09/20 15:35 Olanzapine (ZyPREXA ZYDIS) 5 mg Q6HP PRN PO ANXIETY/AGITATION 04/08/20 11:45 04/09/20 15:35 Oxybutynin Chloride (Ditropan) 5 mg BID PO 04/03/20 09:00 04/09/20 20:02 Paliperidone (Invega) 3 mg DAILY PO 04/03/20 09:00 04/09/20 08:25 Trazodone HCl (Desyrel) 50 mg QHSP PRN PO INSOMNIA 04/03/20 00:00 Cancel Trazodone HCl (Desyrel) 100 mg QHS PO 04/03/20 21:00 04/09/20 20:01 Allergies Coded Allergies: No Known Allergies (Verified , 02/22/18) ORI MALONE DO Apr 10, 2020 07:51
[2020-04-10] MEDS: oxyBUTYnin 5 MG TAB PO SCH ×2 (08:05→21:17)
[2020-04-10] MEDS: AMOXICILLIN 500 MG CAP PO SCH ×3 (08:05→21:17)
[2020-04-10] MEDS: MOM 30ML SUSPENSION UDC PO PRN (08:05)
[2020-04-10] MEDS: NICOTINE POLACRILEX 2 MG GUM PO PRN ×3 (08:05→21:17)
[2020-04-10] MEDS: OLANZapine ORAL DISINTEGRATING TAB 5MG PO PRN ×2 (08:05→14:08)
[2020-04-10] MEDS: PALIPERIDONE 3 MG ER TAB (INVEGA) PO SCH (08:05)
[2020-04-10] MEDS: BUPRENORPHINE/NALOXONE 8-2MG SUBLINGUAL TABLET(SUBOXONE) SL SCH ×2 (08:05→14:08)
[2020-04-10] MEDS: GABAPENTIN 300 MG CAP PO SCH ×2 (08:05→21:17)
[2020-04-10] MEDS: busPIRone 5 MG TAB PO SCH ×3 (08:05→21:17)
[2020-04-10] MEDS: NICOTINE 21MG/24HR 1 EA TRANSDERMAL TD SCH (08:07)
[2020-04-10] MEDS: TOPIRAMATE (TopAMAX) 100 MG TAB PO SCH ×2 (09:08→21:18)
[2020-04-10] MEDS: TOPIRAMATE (TopAMAX) 25 MG TAB PO SCH ×2 (09:08→21:18)
[2020-04-10] MEDS: GABAPENTIN 300 MG CAP PO PRN (12:58)
[2020-04-10 16:26] VITALS: BP 132/68
--- NOTE | 2020-04-10 18:06 | ECGEPIP ---
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
[2020-04-10] MEDS: MIRTAZAPINE 15 MG TAB PO SCH (21:17)
[2020-04-10] MEDS: traZODone 100 MG TAB PO SCH (21:17)
[2020-04-11] MEDS: OLANZapine ORAL DISINTEGRATING TAB 5MG PO PRN ×3 (03:12→17:43)
[2020-04-11] MEDS: NICOTINE POLACRILEX 2 MG GUM PO PRN ×5 (06:39→17:43)
[2020-04-11 07:02] VITALS: BP 101/58
[2020-04-11] MEDS: TOPIRAMATE (TopAMAX) 25 MG TAB PO SCH ×2 (08:43→20:29)
[2020-04-11] MEDS: TOPIRAMATE (TopAMAX) 100 MG TAB PO SCH ×2 (08:44→20:29)
[2020-04-11] MEDS: oxyBUTYnin 5 MG TAB PO SCH ×2 (08:44→20:29)
[2020-04-11] MEDS: GABAPENTIN 300 MG CAP PO SCH ×2 (08:44→20:28)
[2020-04-11] MEDS: PALIPERIDONE 3 MG ER TAB (INVEGA) PO SCH (08:44)
[2020-04-11] MEDS: busPIRone 5 MG TAB PO SCH ×3 (08:44→20:29)
[2020-04-11] MEDS: AMOXICILLIN 500 MG CAP PO SCH ×3 (08:44→20:29)
[2020-04-11] MEDS: NICOTINE 21MG/24HR 1 EA TRANSDERMAL TD SCH (08:44)
[2020-04-11] MEDS: BUPRENORPHINE/NALOXONE 8-2MG SUBLINGUAL TABLET(SUBOXONE) SL SCH ×2 (08:44→14:51)
--- NOTE | 2020-04-11 10:43 | MHIPNPDOC ---
[facility] Progress Note Progress Note DATE OF SERVICE: 04/11/20 Subjective HPI: Cely presents today for a follow-up. Patient wishes to begin Prazosin due to night terrors she has been experiencing. She denies any suicidal or homicidal thoughts. Although, she reports that the voices in her head are not going away. She states the voices in her head are muffled, and she is unable to determine what they are saying. MEDICATIONS: Patient notes that the medication is doing well for her. Objective Appearance: Well groomed. Appears to be stated age. Well nourished. Behavior: Engaged. Pleasant. Cooperative with good eye contact. Affect: Full range. Appropriate to context. Mood: Generally good. Appropriately reactive. Euthymic. Speech: Normal rate. Spontaneous and Fluid. Normal volume. Motor: No gross motor abnormalities. Cognition: Alert, Attentive, and Oriented to person, place, time. Memory: No gross abnormalities of short or biomass technician memory noted during interview. No formal testing. Thought Form: Linear and goal directed. Thought Content: No thoughts of self harm. No evidence of suicidal ideation. No evidence of delusions. No evidence of aggressive or homicidal ideation. Perception: No perceptual abnormalities noted. Judgement: Intact as evidenced by decision making in the recent past. Insight: Good insight into symptoms and treatment options. Assessment F51.4 Sleep terrors [night terrors] F19.150 Other psychoactive substance abuse with psychoactive substance-induced psychotic disorder with delusions F41.9 Anxiety disorder, unspecified F41.8 Other specified anxiety disorders F19.10 Other psychoactive substance abuse, uncomplicated Plan Plan for patient to be discharged on Tuesday. Transferred to detox. Will notify discharge planners to secure bed and help continue [place] likely does to be given on Tuesday of for maintenance with further EKG. The recent EKG is still within normal limits. The QGC of 450 roughly. Vital Signs Vital Signs Date Time Temp Pulse Resp B/P (MAP) Pulse Ox O2 Delivery O2 Flow Rate FiO2 04/11/20 07:02 96.9 72 14 101/58 (72) 97 Room Air Current Medications Current Medications Medications (Trade) Dose Ordered Sig/René Route PRN Reason Start Time Stop Time Status Last Admin Dose Admin Acetaminophen (Tylenol Tab) 650 mg Q6HP PRN PO HEADACHE or DISCOMFORT 04/03/20 00:00 04/07/20 06:53 Al Hydrox/Mg Hydrox/Simethicone (Mylanta) 30 ml Q4HP PRN PO HEARTBURN/INDIGESTION 04/03/20 00:00 Amoxicillin (Amoxicillin) 500 mg TID PO 04/07/20 16:00 04/12/20 15:59 04/11/20 08:44 Buprenorphine/ Naloxone (Suboxone 8/2mg) 1 tab BID SL 04/03/20 09:00 04/04/20 15:39 DC 04/03/20 23:19 Buprenorphine/ Naloxone (Suboxone 8/2mg) 1 tab BID SL 04/04/20 15:45 04/04/20 15:40 DC Buprenorphine/ Naloxone (Suboxone 8/2mg) 1 tab BID@0900,1500 SL 04/04/20 15:00 04/11/20 08:44 Buspirone HCl (Buspar) 15 mg TID PO 04/03/20 09:00 04/11/20 08:44 Docusate Sodium (Colace) 100 mg TID PRN PO CONSTIPATION 04/03/20 01:30 Gabapentin (Neurontin) 300 mg BID PO 04/03/20 09:00 04/11/20 08:44 Gabapentin (Neurontin) 300 mg DAILYPRN PRN PO anxiety 04/07/20 11:15 04/10/20 12:58 Home Med (Med Rec Complete!) ASDIRECTED XX 04/03/20 01:30 04/03/20 01:25 DC Magnesium Hydroxide (Milk Of Magnesia) 30 ml DAILYPRN PRN PO CONSTIPATION 04/03/20 00:00 04/10/20 08:05 Mirtazapine (Remeron) 30 mg QHS PO 04/06/20 21:00 04/10/20 21:17 Miscellaneous (Unresolved Clarification Entry) SEE LABEL COMMENTS DAILY XX 04/10/20 09:00 04/11/20 10:40 DC Naloxone HCl (Narcan) 0.2 mg STAT STAT IV 04/03/20 22:30 04/03/20 22:31 Cancel Nicotine (Nicoderm Cq 21mg) 1 patch DAILY TD 04/06/20 09:00 04/11/20 08:44 Nicotine (Nicorette) 2 mg Q2HP PRN PO NICOTINE WITHDRAWAL 04/08/20 12:00 04/11/20 08:45 Olanzapine (ZyPREXA ZYDIS) 5 mg Q6HP PRN PO ANXIETY/AGITATION 04/08/20 11:45 04/11/20 03:12 Oxybutynin Chloride (Ditropan) 5 mg BID PO 04/03/20 09:00 04/11/20 08:44 Paliperidone (Invega) 3 mg DAILY PO 04/03/20 09:00 04/11/20 08:44 Topiramate (TopAMAX) 50 mg BID PO 04/10/20 09:00 04/11/20 08:43 Topiramate (TopAMAX) 100 mg BID PO 04/10/20 09:00 04/11/20 08:44 Trazodone HCl (Desyrel) 50 mg QHSP PRN PO INSOMNIA 04/03/20 00:00 Cancel Trazodone HCl (Desyrel) 100 mg QHS PO 04/03/20 21:00 04/10/20 21:17 Allergies Coded Allergies: No Known Allergies (Verified , 02/22/18) ORI MALONE DO Apr 11, 2020 10:43
[2020-04-11] MEDS: GABAPENTIN 300 MG CAP PO PRN (13:06)
[2020-04-11 18:12] VITALS: BP 111/73
[2020-04-11] MEDS: MIRTAZAPINE 15 MG TAB PO SCH (20:29)
[2020-04-11] MEDS: traZODone 100 MG TAB PO SCH (20:29)
[2020-04-12 07:04] VITALS: BP 90/55
[2020-04-12] MEDS: MOM 30ML SUSPENSION UDC PO PRN (08:09)
[2020-04-12] MEDS: AMOXICILLIN 500 MG CAP PO SCH (08:09)
[2020-04-12] MEDS: NICOTINE POLACRILEX 2 MG GUM PO PRN ×4 (08:09→15:56)
[2020-04-12] MEDS: BUPRENORPHINE/NALOXONE 8-2MG SUBLINGUAL TABLET(SUBOXONE) SL SCH ×2 (08:09→15:14)
[2020-04-12] MEDS: oxyBUTYnin 5 MG TAB PO SCH ×2 (08:10→21:12)
[2020-04-12] MEDS: TOPIRAMATE (TopAMAX) 25 MG TAB PO SCH ×2 (08:10→21:11)
[2020-04-12] MEDS: TOPIRAMATE (TopAMAX) 100 MG TAB PO SCH ×2 (08:10→21:11)
[2020-04-12] MEDS: DOCUSATE SODIUM 100 MG CAP PO PRN (08:10)
[2020-04-12] MEDS: busPIRone 5 MG TAB PO SCH ×3 (08:10→21:12)
[2020-04-12] MEDS: OLANZapine ORAL DISINTEGRATING TAB 5MG PO PRN ×2 (08:10→15:14)
[2020-04-12] MEDS: GABAPENTIN 300 MG CAP PO SCH ×2 (08:10→21:11)
[2020-04-12] MEDS: NICOTINE 21MG/24HR 1 EA TRANSDERMAL TD SCH (08:11)
[2020-04-12] MEDS: PALIPERIDONE 3 MG ER TAB (INVEGA) PO SCH (08:11)
[2020-04-12] MEDS: GABAPENTIN 300 MG CAP PO PRN (13:17)
[2020-04-12] MEDS: LIDOCAINE 5% (LIDODERM) PATCH TD SCH (13:17)
[2020-04-12 18:00] VITALS: BP 99/55
[2020-04-12] MEDS ORDERED: **NOTE PATIENT COMMENT** MISC XX SCH (21:00)
[2020-04-12] MEDS: QUEtiapine FUMARATE 100 MG TAB PO SCH (21:12)
[2020-04-13 06:40] VITALS: BP 100/58
[2020-04-13] MEDS: BUPRENORPHINE/NALOXONE 8-2MG SUBLINGUAL TABLET(SUBOXONE) SL SCH ×2 (08:19→15:03)
[2020-04-13] MEDS: LIDOCAINE 5% (LIDODERM) PATCH TD SCH ×2 (08:19→21:19)
[2020-04-13] MEDS: TOPIRAMATE (TopAMAX) 25 MG TAB PO SCH ×2 (08:20→21:19)
[2020-04-13] MEDS: TOPIRAMATE (TopAMAX) 100 MG TAB PO SCH ×2 (08:20→21:19)
[2020-04-13] MEDS: DOCUSATE SODIUM 100 MG CAP PO PRN ×3 (08:20→21:21)
[2020-04-13] MEDS: PALIPERIDONE 3 MG ER TAB (INVEGA) PO SCH (08:20)
[2020-04-13] MEDS: NICOTINE 21MG/24HR 1 EA TRANSDERMAL TD SCH (08:20)
[2020-04-13] MEDS: NICOTINE POLACRILEX 2 MG GUM PO PRN ×6 (08:20→21:22)
[2020-04-13] MEDS: OLANZapine ORAL DISINTEGRATING TAB 5MG PO PRN ×2 (08:21→15:03)
[2020-04-13] MEDS: oxyBUTYnin 5 MG TAB PO SCH ×2 (08:21→21:18)
[2020-04-13] MEDS: busPIRone 5 MG TAB PO SCH ×3 (08:21→21:20)
[2020-04-13] MEDS: GABAPENTIN 300 MG CAP PO SCH ×2 (08:21→21:20)
[2020-04-13] MEDS ORDERED: **NOTE PATIENT COMMENT** MISC XX ONE (09:45)
[2020-04-13] MEDS: GABAPENTIN 300 MG CAP PO PRN (11:20)
[2020-04-13] MEDS: MOM 30ML SUSPENSION UDC PO PRN (15:03)
[2020-04-13 18:00] VITALS: BP 109/72
[2020-04-13] MEDS: QUEtiapine FUMARATE 100 MG TAB PO SCH (21:20)
[2020-04-14] MEDS: **NOTE PATIENT COMMENT** MISC XX SCH (05:54)
[2020-04-14] MEDS: OLANZapine ORAL DISINTEGRATING TAB 5MG PO PRN ×3 (05:55→20:07)
[2020-04-14] MEDS: NICOTINE POLACRILEX 2 MG GUM PO PRN ×6 (05:55→20:04)
[2020-04-14 06:10] VITALS: BP 101/63
[2020-04-14] MEDS: BUPRENORPHINE/NALOXONE 8-2MG SUBLINGUAL TABLET(SUBOXONE) SL SCH ×2 (08:00→14:07)
[2020-04-14] MEDS: GABAPENTIN 300 MG CAP PO SCH ×2 (08:00→20:04)
[2020-04-14] MEDS: PALIPERIDONE 3 MG ER TAB (INVEGA) PO SCH (08:00)
[2020-04-14] MEDS: TOPIRAMATE (TopAMAX) 100 MG TAB PO SCH ×2 (08:00→20:04)
[2020-04-14] MEDS: busPIRone 5 MG TAB PO SCH ×3 (08:00→20:04)
[2020-04-14] MEDS: oxyBUTYnin 5 MG TAB PO SCH ×2 (08:01→20:05)
[2020-04-14] MEDS: TOPIRAMATE (TopAMAX) 25 MG TAB PO SCH ×2 (08:01→20:05)
[2020-04-14] MEDS: NICOTINE 21MG/24HR 1 EA TRANSDERMAL TD SCH (08:02)
[2020-04-14] MEDS: DOCUSATE SODIUM 100 MG CAP PO PRN ×3 (09:23→21:16)
--- NOTE | 2020-04-14 10:15 | MHIPNPDOC ---
[facility] Progress Note Progress Note DATE OF SERVICE: 04/14/20 Subjective HPI: Cely presents today for follow-up. She reports she is doing better but reports her anxiety is still difficult sometimes, but she has been going to groups and otherwise reports she is doing well. The patient reports they have a bed in [place] for her and instructed social workers to work with team to secure. Objective Appearance: Appears to be stated age. Well nourished. Well groomed. Speech: Spontaneous and Fluid. Normal volume. Normal rate. Cognition: No signs of psychosis congnition. Alert, Attentive, and Oriented to person, place, time. Thought Form: Linear and goal directed. Less dsythemic than previous. Thought Content: No thoughts of self harm. No evidence of aggressive or homicidal ideation. No evidence of delusions. No evidence of suicidal ideation. Judgement: Intact as evidenced by decision making in the recent past. Assessment F19.159 Other psychoactive substance abuse with psychoactive substance-induced psychotic disorder, unspecified F41.9 Anxiety disorder, unspecified F19.10 Other psychoactive substance abuse, uncomplicated Plan Give second dose of Invega 154 mg. Increase Zyprexa to 10 mg q 4 hrs PRN. Add Prazosin 1 mg nightly for nightmares & anxiety. Will do EKG tomorrow to monitor QTC to ensure no extensive problems. Will plan to discharge Tuesday to rehab. Vital Signs Vital Signs Date Time Temp Pulse Resp B/P (MAP) Pulse Ox O2 Delivery O2 Flow Rate FiO2 04/14/20 06:10 97.6 83 14 101/63 (76) 98 Room Air Current Medications Current Medications Medications (Trade) Dose Ordered Sig/René Route PRN Reason Start Time Stop Time Status Last Admin Dose Admin Acetaminophen (Tylenol Tab) 650 mg Q6HP PRN PO HEADACHE or DISCOMFORT 04/03/20 00:00 04/07/20 06:53 Al Hydrox/Mg Hydrox/Simethicone (Mylanta) 30 ml Q4HP PRN PO HEARTBURN/INDIGESTION 04/03/20 00:00 Amoxicillin (Amoxicillin) 500 mg TID PO 04/07/20 16:00 04/12/20 15:59 DC 04/12/20 08:09 Buprenorphine/ Naloxone (Suboxone 8/2mg) 1 tab BID SL 04/03/20 09:00 04/04/20 15:39 DC 04/03/20 23:19 Buprenorphine/ Naloxone (Suboxone 8/2mg) 1 tab BID SL 04/04/20 15:45 04/04/20 15:40 DC Buprenorphine/ Naloxone (Suboxone 8/2mg) 1 tab BID@0900,1500 SL 04/04/20 15:00 04/14/20 08:00 Buspirone HCl (Buspar) 15 mg TID PO 04/03/20 09:00 04/14/20 08:00 Docusate Sodium (Colace) 100 mg TID PRN PO CONSTIPATION 04/03/20 01:30 04/14/20 09:23 Gabapentin (Neurontin) 300 mg BID PO 04/03/20 09:00 04/14/20 08:00 Gabapentin (Neurontin) 300 mg DAILYPRN PRN PO anxiety 04/07/20 11:15 04/13/20 11:20 Home Med (Med Rec Complete!) ASDIRECTED XX 04/03/20 01:30 04/03/20 01:25 DC Lidocaine (Lidoderm Patch) 1 patch DAILY TD 04/12/20 09:00 04/13/20 09:30 DC 04/13/20 08:19 Lidocaine (Lidoderm Patch) 1 patch DAILY@2100 TD 04/13/20 21:00 04/13/20 21:19 Magnesium Hydroxide (Milk Of Magnesia) 30 ml DAILYPRN PRN PO CONSTIPATION 04/03/20 00:00 04/13/20 15:03 Mirtazapine (Remeron) 30 mg QHS PO 04/06/20 21:00 04/12/20 19:02 DC 04/11/20 20:29 Miscellaneous (Unresolved Clarification Entry) SEE LABEL COMMENTS DAILY XX 04/10/20 09:00 04/11/20 10:40 DC Naloxone HCl (Narcan) 0.2 mg STAT STAT IV 04/03/20 22:30 04/03/20 22:31 Cancel Nicotine (Nicoderm Cq 21mg) 1 patch DAILY TD 04/06/20 09:00 04/13/20 08:20 Nicotine (Nicorette) 2 mg Q2HP PRN PO NICOTINE WITHDRAWAL 04/08/20 12:00 04/14/20 08:01 Non-Formulary Medication ( See Comment Field Below ) REMOVE LIDODERM PATCH DAILY@0900 XX 04/14/20 09:00 04/14/20 05:54 Non-Formulary Medication ( See Comment Field Below ) REMOVE LIDODERM PATCH DAILY@21 XX 04/12/20 21:00 04/13/20 09:34 DC 04/12/20 21:12 Olanzapine (ZyPREXA ZYDIS) 5 mg Q6HP PRN PO ANXIETY/AGITATION 04/08/20 11:45 04/14/20 05:55 Oxybutynin Chloride (Ditropan) 5 mg BID PO 04/03/20 09:00 04/14/20 08:01 Paliperidone (Invega) 3 mg DAILY PO 04/03/20 09:00 04/14/20 08:00 Quetiapine Fumarate (SEROquel) 100 mg QHS PO 04/12/20 21:00 04/13/20 21:20 Topiramate (TopAMAX) 50 mg BID PO 04/10/20 09:00 04/14/20 08:01 Topiramate (TopAMAX) 100 mg BID PO 04/10/20 09:00 04/14/20 08:00 Trazodone HCl (Desyrel) 50 mg QHSP PRN PO INSOMNIA 04/03/20 00:00 Cancel Trazodone HCl (Desyrel) 100 mg QHS PO 04/03/20 21:00 04/12/20 19:02 DC 04/11/20 20:29 Allergies Coded Allergies: No Known Allergies (Verified , 02/22/18) ROI MALONE DO Apr 14, 2020 10:15
[2020-04-14] MEDS: GABAPENTIN 300 MG CAP PO PRN (11:01)
[2020-04-14] MEDS ORDERED: MAGNESIUM CITRATE 300 ML BTL PO ONE (12:00)
[2020-04-14] MEDS ORDERED: PALIPERIDONE PALMITATE 156MG/1ML INJ(INVEGA)(FREE PSY INPT ONLY) IM ONE (13:00)
[2020-04-14 16:50] VITALS: BP 101/65
[2020-04-14] MEDS: PRAZOSIN 1 MG CAP PO SCH (20:05)
[2020-04-14] MEDS: LIDOCAINE 5% (LIDODERM) PATCH TD SCH (20:06)
[2020-04-15] MEDS: NICOTINE POLACRILEX 2 MG GUM PO PRN ×5 (06:19→20:10)
[2020-04-15 06:38] VITALS: BP 137/72
[2020-04-15] MEDS: OLANZapine ORAL DISINTEGRATING TAB 5MG PO PRN ×2 (06:48→13:14)
[2020-04-15] MEDS: oxyBUTYnin 5 MG TAB PO SCH ×2 (08:54→20:08)
[2020-04-15] MEDS: PALIPERIDONE 3 MG ER TAB (INVEGA) PO SCH (08:54)
[2020-04-15] MEDS: BUPRENORPHINE/NALOXONE 8-2MG SUBLINGUAL TABLET(SUBOXONE) SL SCH ×2 (08:54→14:53)
[2020-04-15] MEDS: busPIRone 5 MG TAB PO SCH ×3 (08:54→20:08)
[2020-04-15] MEDS: GABAPENTIN 300 MG CAP PO SCH ×2 (08:54→20:08)
[2020-04-15] MEDS: TOPIRAMATE (TopAMAX) 100 MG TAB PO SCH ×2 (08:55→20:08)
[2020-04-15] MEDS: TOPIRAMATE (TopAMAX) 25 MG TAB PO SCH ×2 (08:55→20:06)
[2020-04-15] MEDS: NICOTINE 21MG/24HR 1 EA TRANSDERMAL TD SCH (08:56)
[2020-04-15] MEDS: **NOTE PATIENT COMMENT** MISC XX SCH (08:57)
[2020-04-15] MEDS: DOCUSATE SODIUM 100 MG CAP PO PRN ×2 (08:58→20:09)
--- NOTE | 2020-04-15 14:50 | MHDSPDOC ---
[facility] Discharge Summary Discharge Summary DATE OF ADMISSION: Apr 03, 2020 at 00:50 DATE OF DISCHARGE:Apr 16, 2020 at 07:45 DISCHARGE DIAGNOSES: F28 Other psychotic disorder not due to a substance or known physiological condition F41.9 Anxiety disorder, unspecified F19.10 Other psychoactive substance abuse, uncomplicated CONSULTANTS INVOLVED:[ None (basic hospitalist screening)] REASON FOR ADMISSION & TREATMENT AND PROGRESS ON THE UNIT : Patient wad admitted and it to restart Invega medication and subsequently injections given 234 and 156 respectively. She was also given Paroxetine 10 mg, q4r apparent that helped her anxiety. Patient is also taking Gabapentin 300 mg, Prazosin one mg nightly for night terrors. TESTS: Patient had multiple EKGs done and were within normal limits. She was subsequently sent bed to bed transfer for [facility] as she needed for her serious drug use and posing danger to herselfHer health on discharge was normal mental status and well engaged. DISCHARGE ASSESSMENT[improved] Legal status considerations: The patient at the time of discharge did not meet criteria for involuntary admission/extension due to having a [normal] mental status exam, [fair] insight into the situation, They are engaged in the discharge process, as well as being friendly and amenable in behavioral control and havent been engaging in any observed concerning behavior or ideation recently. They decline voluntary extension/admission at this time and must be discharged in good sahra, as Im unable to make a case for holding the patient against their will. They may have historical risk factors of admissions and other interactions with psychiatry however, those are not modifiable from a clinical perspective. The patient will need to be discharged in good sahra. MENTAL STATUS EXAMINATION ON DISCHARGE: [General: Well dressed with good hygiene Speech: Spontaneous and fluid Thought processes: Linear and logical Thought content: Future orientated Abstract reasoning, and computation: Intact Description of associations: Intact Description of abnormal or psychotic thoughts:Denies any suicidal or homicidal ideation. Denies any auditory or visual hallucinations. Does not appear to be responding to internal stimuli. Does not appear to be endorsing any bizarre or paranoid ideation. Judgment: fair Insight: fair Orientation: Alert and orientated 3 Recent and remote memory: Intact Attention span and concentration: Intact Fund of knowledge: Adequate Mood: "okay" Affect: Euthymic with a full range] PLAN/FOLLOWUP ARRANGEMENTS: Follow up appointments made (PCP and MH in 5 days of D/C date) and safety plan completed. Safety Planning aspects completed prior to discharge [RN reviewed crisis hotline information and other aspects to empower patient to access care in interim before next appointment.] Bed to bed transfer to rehab, with scripts to be handled in step down fashion The amount of time spent in the coordination of care for this patient was approximately 30 minutes. Vital Signs/I&Os Vital Signs Date Time Temp Pulse Resp B/P (MAP) Pulse Ox O2 Delivery O2 Flow Rate FiO2 04/15/20 06:38 96.6 83 16 137/72 (93) 04/14/20 06:10 98 Room Air Medications Scheduled Buprenorphine HCl/Naloxone HCl (Suboxone 8 mg-2 mg Sl Film) 1 Each Film, 1 FILM SL BID for ., (Reported) Buspirone HCl (Buspirone HCl) 15 Mg Tablet, 15 MG PO TID for ., (Reported) Gabapentin (Gabapentin) 300 Mg Capsule, 300 MG PO BID for ., (Reported) Nicotine (Nicotine Patch) 21 Mg Patch.td24, 1 PATCH TD DAILY for nicotine for 30 Days, #30 Norelgestromin/Ethin.estradiol (Xulane Patch) 1 Each Patch.tdwk, 1 PATCH TOP ASDIRECTED for ., (Reported) APPLY PATCH FOR 3 WEEKS THEN REMOVE FOR 1 WEEK, PATIENT WAS DUE TO PLACE A NEW PATCH ON 04/01/20 Oxybutynin Chloride (Oxybutynin Chloride) 5 Mg Tablet, 5 MG PO BID for ., (Reported) Prazosin HCl (Minipress) 1 Mg Capsule, 1 MG PO QHS for nightmares for 7 Days, #7 Topiramate (Topamax) 50 Mg Tablet, 3 TAB PO BID for sz for 7 Days, #14 Scheduled PRN Docusate Sodium (Dok) 100 Mg Capsule, 100 MG PO TID PRN for CONSTIPATION, (Reported) Olanzapine (Olanzapine Odt) 5 Mg Tab.rapdis, 10 MG PO Q6HP PRN for ANXIETY/A GITATION for 7 Days, #7 Allergies Coded Allergies: No Known Allergies (Verified , 02/22/18) ORI MALONE DO Apr 15, 2020 14:50
[2020-04-15] MEDS ORDERED: OLAN5ZYD PO (14:59)
[2020-04-15] MEDS ORDERED: TOPA50TA8 PO (14:59)
[2020-04-15] MEDS ORDERED: NICO21PAT TD (14:59)
[2020-04-15] MEDS ORDERED: MINI1CAP PO (14:59)
[2020-04-15] MEDS ORDERED: MIRALAX *UNIT DOSE* 17GM PACKET PO ONE (16:00)
[2020-04-15 16:26] VITALS: BP 110/62
[2020-04-15 20:08] VITALS: BP 110/62
[2020-04-15] MEDS: PRAZOSIN 1 MG CAP PO SCH (20:08)
[2020-04-15] MEDS: LIDOCAINE 5% (LIDODERM) PATCH TD SCH (20:09)
[2020-04-15] MEDS: MOM 30ML SUSPENSION UDC PO PRN (20:09)
--- NOTE | 2020-04-16 00:36 | ECGEPIP ---
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
[2020-04-16] MEDS: OLANZapine ORAL DISINTEGRATING TAB 5MG PO PRN (03:21)
[2020-04-16] MEDS: NICOTINE POLACRILEX 2 MG GUM PO PRN ×2 (03:23→05:37)
[2020-04-16 06:20] VITALS: BP 119/68
[2020-04-16] MEDS: **NOTE PATIENT COMMENT** MISC XX SCH (07:27)
[2020-04-16] MEDS: NICOTINE 21MG/24HR 1 EA TRANSDERMAL TD SCH (07:27)
[2020-04-16] MEDS: BUPRENORPHINE/NALOXONE 8-2MG SUBLINGUAL TABLET(SUBOXONE) SL SCH (07:31)
[2020-04-16] MEDS: GABAPENTIN 300 MG CAP PO SCH (07:31)
[2020-04-16] MEDS: DOCUSATE SODIUM 100 MG CAP PO PRN (07:31)
[2020-04-16] MEDS: PALIPERIDONE 3 MG ER TAB (INVEGA) PO SCH (07:31)
[2020-04-16] MEDS: busPIRone 5 MG TAB PO SCH (07:31)
[2020-04-16] MEDS: TOPIRAMATE (TopAMAX) 25 MG TAB PO SCH (07:31)
[2020-04-16] MEDS: oxyBUTYnin 5 MG TAB PO SCH (07:31)
[2020-04-16] MEDS: TOPIRAMATE (TopAMAX) 100 MG TAB PO SCH (07:31)
[2020-04-16] MEDS ORDERED: MIRALAX *UNIT DOSE* 17GM PACKET PO PRN (09:00)
--- NOTE | 2020-04-17 14:21 | ECGEPIP ---
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
--- NOTE | 2020-04-21 13:52 | REP ---
ABDOMINAL RADIOGRAPH CLINICAL: Constipation. TECHNIQUE: Single supine view of the abdomen and pelvis. FINDINGS: There is no evidence for bowel obstruction or perforation. [id number] fecal stasis and presumed constipation suggested. No organomegaly. No abnormal calcifications. Phlebolith noted in the pelvis. Skeletal structures intact. IMPRESSION: Findings suggest mild/moderate fecal stasis. MTDD
== END 2020-04-16 07:45 | disposition home or self-care (01) | DRG 751 ==
LOC: M PSY 04-03 00:50
PROVIDERS: ADMIT Psychiatry & Neurology Psychiatry; ATTEND Psychiatry & Neurology Addiction Medicine
DX: F28 Other psychotic disorder not due to a substance or known physiological condition (principal); F19.10 Other psychoactive substance abuse, uncomplicated; F41.9 Anxiety disorder, unspecified; L03.113 Cellulitis of right upper limb; F15.10 Other stimulant abuse, uncomplicated; Z86.74 Personal history of sudden cardiac arrest; Z79.899 Other long term (current) drug therapy

== ENCOUNTER 2020-06-01 12:50 | Emergency (ER) | payer MEDICAID ==
[~2020-06-01] VITALS: Ht 154.9 cm; Wt 58.9 kg
[~2020-06-01 12:50] MED LIST changes: +MINI1CAP PO; +OLAN5ZYD PO; +TOPA50TA8 PO
[2020-06-01] MEDS ORDERED: NALOXONE 2MG/2ML SYRINGE (J2310 PER 1MG) IV STA (13:01)
[2020-06-01 13:11] LABS: BASO # 0.1 10^3/uL (0.0-0.2); BASO % 0.9 % (0.0-1.0); EOS # 0.2 10^3/uL (0.0-0.5); EOS % 2.7 % (0.0-3.0); HEMATOCRIT 37.8 % (36.0-47.0); HEMOGLOBIN 12.4 g/dl (12.0-15.5); LYMPH # 2.7 10^3/uL (1.5-5.0); LYMPH % 48.6 % (24.0-44.0); MEAN CORPUSCULAR HEMOGLOBIN 30.5 pg (27.0-33.0); MEAN CORPUSCULAR HGB CONC 32.8 g/dl (32.0-36.5); MEAN CORPUSCULAR VOLUME 92.9 fl (80.0-96.0); MONO # 0.5 10^3/uL (0.0-0.8); NEUTROPHILS # 2.2 10^3/uL (1.5-8.5); NEUTROPHILS % 39.6 % (36.0-66.0); PLATELET COUNT, AUTOMATED 205 10^3/uL (150-450); RED BLOOD COUNT 4.07 10^6/uL (4.00-5.40); WHITE BLOOD COUNT 5.6 10^3/uL (4.0-10.0)
[2020-06-01] MEDS ORDERED: NS 1,000 ML IV ONE (13:15)
[2020-06-01] MEDS ORDERED: NICOTINE 21MG/24HR 1 EA TRANSDERMAL TD ONE (13:30)
[2020-06-01 13:49] LABS: ACETAMINOPHEN LEVEL < 2.0 UG/ML (10.0-30.0); ALBUMIN 4.2 GM/DL (3.2-5.2); ALT/SGPT 89 U/L (12-78); BILIRUBIN,DIRECT 0.1 MG/DL (0.0-0.2); BILIRUBIN,TOTAL 0.3 MG/DL (0.2-1.0); BLOOD UREA NITROGEN 12 MG/DL (7-18); CALCIUM LEVEL 8.8 MG/DL (8.5-10.1); CARBON DIOXIDE LEVEL 23 MEQ/L (21-32); CHLORIDE LEVEL 103 MEQ/L (98-107); CREATININE FOR GFR 0.83 MG/DL (0.55-1.30); ETHYL ALCOHOL (ETHANOL) < 0.003 % (0.000-0.010); GLOMERULAR FILTRATION RATE > 60.0 (>60); GLUCOSE, FASTING 129 MG/DL (70-100); POTASSIUM SERUM 3.6 MEQ/L (3.5-5.1); SALICYLATE LEVEL < 1.7 MG/DL (5.0-30.0); SODIUM LEVEL 136 MEQ/L (136-145); TOTAL PROTEIN 8.4 GM/DL (6.4-8.2)
[2020-06-01 13:50] LABS: HCG, SERUM QUALITATIVE NEGATIVE (NEGATIVE)
[2020-06-01 14:19] LABS: AMPHETAMINES LEVEL URINE POSITIVE (NEGATIVE); BARBITURATES URINE NEGATIVE (NEGATIVE); BENZODIAZEPINES URINE NEGATIVE (NEGATIVE); CANNABINOIDS URINE POSITIVE (NEGATIVE); COCAINE METABOLITE URINE POSITIVE (NEGATIVE); METHADONE URINE POSITIVE (NEGATIVE); OPIATES URINE POSITIVE (NEGATIVE); PHENCYCLIDINE URINE NEGATIVE (NEGATIVE)
[2020-06-01 15:25] VITALS: BP 129/76
--- NOTE | 2020-06-02 07:50 | ECGEPIP ---
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
[2020-06-02] MEDS ORDERED: AMIT10TA PO (13:26)
[2020-06-02] MEDS ORDERED: REME15TA PO (13:26)
[2020-06-02] MEDS ORDERED: ZOLO50TA PO (13:26)
[2020-06-02] MEDS ORDERED: TOPI50TA9 PO (16:26)
[2020-06-02] MEDS ORDERED: AMIT25TA PO (16:26)
[2020-06-02] MEDS ORDERED: LEVO50TA5 PO (16:26)
[2020-06-02] MEDS ORDERED: TOPI100T9 PO (16:26)
[2020-06-02] MEDS ORDERED: GABA-845 PO (16:26)
[2020-06-02] MEDS ORDERED: HALO1TAB19 PO (16:26)
[2020-06-02] MEDS ORDERED: SERT25TA85 PO (16:26)
[2020-06-02] MEDS ORDERED: PRAZ1CAP PO (16:26)
[2020-06-02] MEDS ORDERED: OLAN5TAB PO (16:26)
== END 2020-06-01 15:30 | disposition home or self-care (01) ==
LOC: M ED 12:50
DX: F19.120 Other psychoactive substance abuse with intoxication, uncomplicated (principal); R45.851 Suicidal ideations; F99 Mental disorder, not otherwise specified; F17.200 Nicotine dependence, unspecified, uncomplicated; Z79.899 Other long term (current) drug therapy
CPT/HCPCS: 36415; 80048; 80076; 80307; 84443; 84703; 85025; 93005; 96361; 96374; 99285; G0480; J2310

== ENCOUNTER 2020-06-02 13:17 | Inpatient (IN) | payer MEDICAID ==
[~2020-06-02] VITALS: Ht 154.9 cm; Wt 59.1 kg
[2020-06-02] MEDS ORDERED: REME15TA PO (13:26)
[2020-06-02] MEDS ORDERED: AMIT10TA PO (13:26)
[2020-06-02] MEDS ORDERED: ZOLO50TA PO (13:26)
[2020-06-02 14:41] LABS: HEMATOCRIT 37.2 % (36.0-47.0); HEMOGLOBIN 12.2 g/dl (12.0-15.5); MEAN CORPUSCULAR HEMOGLOBIN 30.9 pg (27.0-33.0); MEAN CORPUSCULAR HGB CONC 32.8 g/dl (32.0-36.5); MEAN CORPUSCULAR VOLUME 94.2 fl (80.0-96.0); PLATELET COUNT, AUTOMATED 195 10^3/uL (150-450); RED BLOOD COUNT 3.95 10^6/uL (4.00-5.40); WHITE BLOOD COUNT 5.8 10^3/uL (4.0-10.0)
[2020-06-02 15:45] LABS: ACETAMINOPHEN LEVEL < 2.0 UG/ML (10.0-30.0); ALBUMIN 3.7 GM/DL (3.2-5.2); ALT/SGPT 74 U/L (12-78); AMPHETAMINES LEVEL URINE POSITIVE (NEGATIVE); BARBITURATES URINE NEGATIVE (NEGATIVE); BENZODIAZEPINES URINE NEGATIVE (NEGATIVE); BILIRUBIN,DIRECT 0.1 MG/DL (0.0-0.2); BILIRUBIN,TOTAL 0.4 MG/DL (0.2-1.0); BLOOD UREA NITROGEN 7 MG/DL (7-18); CALCIUM LEVEL 8.8 MG/DL (8.5-10.1); CANNABINOIDS URINE POSITIVE (NEGATIVE); CARBON DIOXIDE LEVEL 24 MEQ/L (21-32); CHLORIDE LEVEL 109 MEQ/L (98-107); COCAINE METABOLITE URINE NEGATIVE (NEGATIVE); CREATININE FOR GFR 0.71 MG/DL (0.55-1.30); ETHYL ALCOHOL (ETHANOL) < 0.003 % (0.000-0.010); GLOMERULAR FILTRATION RATE > 60.0 (>60); GLUCOSE, FASTING 82 MG/DL (70-100); METHADONE URINE POSITIVE (NEGATIVE); OPIATES URINE POSITIVE (NEGATIVE); PHENCYCLIDINE URINE NEGATIVE (NEGATIVE); POTASSIUM SERUM 3.6 MEQ/L (3.5-5.1); SALICYLATE LEVEL < 1.7 MG/DL (5.0-30.0); SODIUM LEVEL 139 MEQ/L (136-145); TOTAL PROTEIN 7.7 GM/DL (6.4-8.2)
[2020-06-02 15:59] LABS: HCG, SERUM QUALITATIVE NEGATIVE (NEGATIVE)
[2020-06-02] MEDS ORDERED: PRAZ1CAP PO (16:26)
[2020-06-02] MEDS ORDERED: GABA-845 PO (16:26)
[2020-06-02] MEDS ORDERED: TOPI100T9 PO (16:26)
[2020-06-02] MEDS ORDERED: LEVO50TA5 PO (16:26)
[2020-06-02] MEDS ORDERED: OLAN5TAB PO (16:26)
[2020-06-02] MEDS ORDERED: AMIT25TA PO (16:26)
[2020-06-02] MEDS ORDERED: TOPI50TA9 PO (16:26)
[2020-06-02] MEDS ORDERED: HALO1TAB19 PO (16:26)
[2020-06-02] MEDS ORDERED: SERT25TA85 PO (16:26)
--- NOTE | 2020-06-02 16:35 | REP ---
INDICATION: abdominal pain. COMPARISON: 04/15/2020 TECHNIQUE: Single supine abdomen view. FINDINGS: There is moderate diffuse stool in the colon but less than on the previous study particularly involving the right side of the colon and sigmoid. Few pelvic phleboliths are seen unchanged. No visible pelvic mass or sign of obstruction. Bones are unremarkable. No definite renal or ureteral stone. IMPRESSION: [id number] constipation but with less stool burden than on the previous study on 04/15/2020. No evidence for obstruction. Less stool in the right colon and sigmoid. <Electronically signed by Max Ruiz > 06/02/20 [id number]
--- NOTE | 2020-06-02 19:52 | ECGEPIP ---
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
[2020-06-02] MEDS ORDERED: MIRTAZAPINE 7.5MG PER 1/2 TABLET PO ONE (20:15)
[2020-06-02] MEDS ORDERED: PRAZOSIN 1 MG CAP PO ONE (20:15)
[2020-06-02] MEDS ORDERED: oxyBUTYnin 5 MG TAB PO ONE (20:15)
[2020-06-02] MEDS ORDERED: OLANZapine 5 MG TAB PO ONE (20:15)
[2020-06-02] MEDS ORDERED: AMITRIPTYLINE 25 MG TAB PO ONE (20:15)
[2020-06-02] MEDS ORDERED: busPIRone 5 MG TAB PO ONE (20:15)
[2020-06-03] MEDS ORDERED: BUPRENORPHINE/NALOXONE 8-2MG SUBLINGUAL TABLET(SUBOXONE) SL ONE
[2020-06-03] MEDS ORDERED: MAALOX 30 ML SUSP *UDC PO PRN (02:00)
[2020-06-03] MEDS ORDERED: traZODone 50 MG TAB PO PRN (02:00)
[2020-06-03] MEDS ORDERED: ACETAMINOPHEN TAB 650MG DOSE (2X325MG) PO PRN (02:00)
[2020-06-03] MEDS ORDERED: MOM 30ML SUSPENSION UDC PO PRN (02:00)
[2020-06-03] MEDS: GABAPENTIN 400 MG CAP PO SCH ×5 (03:23→20:15)
[2020-06-03] MEDS: TOPIRAMATE (TopAMAX) 100 MG TAB PO SCH ×3 (03:24→20:16)
[2020-06-03] MEDS: TOPIRAMATE (TopAMAX) 25 MG TAB PO SCH ×3 (03:24→20:16)
[2020-06-03 05:10] VITALS: BP 119/70
[2020-06-03 06:51] VITALS: BP 119/70
[2020-06-03] MEDS: SERTRALINE HCL 25 MG TABLET PO SCH (08:11)
[2020-06-03] MEDS: busPIRone 5 MG TAB PO SCH ×3 (08:11→20:15)
[2020-06-03] MEDS: oxyBUTYnin 5 MG TAB PO SCH ×2 (08:12→20:12)
[2020-06-03] MEDS ORDERED: OLANZapine 5 MG TAB PO SCH (09:00)
[2020-06-03] MEDS ORDERED: BUPRENORPHINE/NALOXONE 8-2MG SUBLINGUAL TABLET(SUBOXONE) SL SCH ×2 (09:00→21:00)
[2020-06-03] MEDS: LEVOTHYROXINE 50MCG TABLET (0.05MG) PO SCH (09:05)
[2020-06-03] MEDS: NICOTINE POLACRILEX 2 MG GUM PO PRN ×4 (09:06→20:21)
[2020-06-03] MEDS: OLANZapine ORAL DISINTEGRATING TAB 5MG PO PRN ×2 (09:06→17:50)
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
--- NOTE | 2020-06-03 15:47 | MHHPEPDOC ---
General Date Of Admission: Jun 03, 2020 Legal Status: 9.39 Chief Complaint "I came to the hospital because I have something in my stomach, I think its a recording and I didn't put it there, I don't know who did and I want it out." History of Present Illness HISTORY OF THE PRESENT ILLNESS: Patient is a 34 -year-old Single, Unemployed, Domiciled, , female, who self presented to [facility] with delusional thoughts. Patient was recently discharged from [facility] in April and was admitted to [facility] door to door which she completed. She states she began using the day she was discharged. Using Heroin, Bath Salts and Methamphetamines a "few days ago." She came with complaints that there is something wrong in her stomach. She believes that she has a recording device in her stomach and that she needs to have surgery. Psychiatric Review of Systems Depression (2 or more weeks): denies Kriss (4 or more days of): denies Psychosis: delusions, paranoia, other (tactile hallucinations, feels that there is a recording device in her stomach) PTSD: denies Past Psychiatric History Previous Psychiatric Diagnosis: Schizoaffective Disorder Previous Psychiatric Admissions: . Suicide Attempts: . Psychiatric Follow-up: . Psychiatric medications: . Past Medical History Medical Problems 2 Sections Umbilical Hernia Repair Head Injury: No Seizures: No Hospitalizations: Yes Surgeries: Yes Family Medical/Psychiatric HX Medical Problems Father - Schizophrenia Mother - alive and well, no medical problems. Psychiatric Disorders: No Addiction: No Suicide Attemps/Completions: No Addiction History nicotine (Smokes 1 PPD), methamphetamines (last used a few days ago), heroin (last used a few days ago), other (Bath Salts, a few days ago) Social History Childhood: Born in [place]. Lived with mother, she is an only child. Abuse/Trauma Reports Trauma History, will not elaborate Current Living Situation: Alone, in own apartment, SSI Education: Did not graduate Employment: Not Employed Social Support: No one. Legal: [facility] x 1 year, possession with intent to sell Marital: Single, , 2 children ages 13 & 18 Mental Status Examination General Appearance: disheveled, appears stated age, hospital scubs/clothing Build: thin Demeanor: mistrustful, withdrawn Eye Contact: fair Activity: anxious Behavior: cooperative Speech: clear, normal volume, reg/rate,rhythm,volume Mood: depressed, anxious Affect: flat Thought Process: depressed Thought Content (Delusions): denies SI, HI, AVH, paranoia, delusions Thought Content (Other): none reported Thought Content (Aggressive): none reported Perception (Hallucinations): tactile Perception (Other): none reported Cognition (Impairment of): none reported Cognition(Intelligence Est.): average Oriented: Awake, Alert, Oriented times three Insight: poor Judgment: Poor Psychosis: Psychotic Perceptions Diagnoses Unspecified Psychotic Disorder 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 She was recently admitted and discharged from this facility and was sent door to door rehab, upon discharge she started using again. At this time, her psychosis is due to her recent Methamphetamine and Heroin Use. Start Invega Sustanna, patient has been on this before, she is requesting Discharge when patient is no longer delusional or a danger to herself. Initial Treatment Plan 1. Patient was admitted on a [9.39] status. 2. Complete history was obtained. 3. With patients permission, family will be contacted and database will be expanded. 4. Patients medication regimen will be reviewed and changed accordingly. 5. Patient will be provided with protected environment. 6. Patient will be treated with individual, group, and milieu therapies. 7. Patient will receive supportive psych-education. 8. Discharge planning will commence immediately. 9. Outpatient follow-up treatment will be strongly recommended. 10. The initial treatment plan will focus initially on: * altered thoughts * Substance Use/Polysubstance Use ESTIMATED LENGTH OF STAY: 5-7 DAYS. TIME SPENT COUNSELING AND COORDINATING INITIAL CARE: 50 minutes. Vital Signs Vital Signs Date Time Temp Pulse Resp B/P (MAP) Pulse Ox O2 Delivery O2 Flow Rate FiO2 06/03/20 06:51 97.5 70 16 119/70 (86) Room Air 06/03/20 05:10 99 Laboratory Data 24H Labs Laboratory Tests 2 06/02/20 14:08: Nucleated Red Blood Cells % (auto) 0.0, Anion Gap 6L, Glomerular Filtration Rate > 60.0, Calcium Level 8.8, Total Bilirubin 0.4, Direct Bilirubin 0.1, Aspartate Amino Transf (AST/SGOT) 58H, Alanine Aminotransferase (ALT/SGPT) 74, Alkaline Phosphatase 75, Total Protein 7.7, Albumin 3.7, Albumin/Globulin Ratio 0.9L, Thyroid Stimulating Hormone (TSH) 1.690, Human Chorionic Gonadotropin, Qual NEGATIVE, Salicylates Level < 1.7L, Urine Opiates Screen POSITIVEH, Urine Methadone Screen POSITIVEH, Acetaminophen Level < 2.0L, Urine Barbiturates Screen NEGATIVE, Urine Phencyclidine Screen NEGATIVE, Urine Amphetamines Screen POSITIVEH, Urine Benzodiazepines Screen NEGATIVE, Urine Cocaine Metabolite Screen NEGATIVE, Urine Cannabinoids Screen POSITIVEH, Ethyl Alcohol Level < 0.003 CBC/BMP Laboratory Tests 06/02/20 14:08 Medications Scheduled Amitriptyline HCl (Amitriptyline HCl) 25 Mg Tablet, 25 MG PO QHS, (Reported) Buprenorphine HCl/Naloxone HCl (Suboxone 8 mg-2 mg Sl Film) 1 Each Film, 1 FILM SL BID, (Reported) Buspirone HCl (Buspirone HCl) 15 Mg Tablet, 15 MG PO TID, (Reported) Gabapentin (Gabapentin) 400 Mg Capsule, 400 MG PO QID, (Reported) Levothyroxine Sodium (Levothyroxine Sodium) 50 Mcg Tablet, 50 MCG PO DAILY, (Reported) Mirtazapine (Remeron) 15 Mg Tablet, 7.5 MG PO QHS, (Reported) Olanzapine (Olanzapine) 5 Mg Tablet, 5 MG PO BID, (Reported) Oxybutynin Chloride (Oxybutynin Chloride) 5 Mg Tablet, 5 MG PO BID for ., (Reported) Prazosin Hcl (Prazosin HCl) 1 Mg Capsule, 1 MG PO QHS, (Reported) Sertraline Hcl (Sertraline HCl) 25 Mg Tablet, 25 MG PO DAILY, (Reported) Topiramate (Topiramate) 50 Mg Tablet, 50 MG PO BID, (Reported) Topiramate (Topiramate) 100 Mg Tablet, 100 MG PO BID, (Reported) Scheduled PRN Docusate Sodium (Dok) 100 Mg Capsule, 100 MG PO TID PRN for CONSTIPATION, (Reported) Haloperidol (Haloperidol) 2 Mg Tablet, 2 MG PO Q6H PRN for AGITATION, (Reported) Allergies Coded Allergies: No Known Allergies (Verified , 06/02/20) POOJA HARO NP Jun 03, 2020 10:30
[2020-06-03] MEDS: BUPRENORPHINE/NALOXONE 8-2MG SUBLINGUAL TABLET(SUBOXONE) SL SCH (17:38)
[2020-06-03 17:54] VITALS: BP 117/67
[2020-06-03] MEDS: AMITRIPTYLINE 25 MG TAB PO SCH (20:14)
[2020-06-03] MEDS: PRAZOSIN 1 MG CAP PO SCH (20:14)
[2020-06-03] MEDS: MIRTAZAPINE 15 MG TAB PO SCH (20:14)
[2020-06-03] MEDS: PALIPERIDONE 3 MG ER TAB (INVEGA) PO SCH (20:16)
[2020-06-04] MEDS: OLANZapine ORAL DISINTEGRATING TAB 5MG PO PRN ×2 (06:24→13:32)
[2020-06-04] MEDS: NICOTINE POLACRILEX 2 MG GUM PO PRN ×4 (06:24→16:50)
[2020-06-04 06:55] VITALS: BP 108/58
[2020-06-04] MEDS: TOPIRAMATE (TopAMAX) 100 MG TAB PO SCH ×2 (08:48→20:21)
[2020-06-04] MEDS: TOPIRAMATE (TopAMAX) 25 MG TAB PO SCH ×2 (08:48→20:21)
[2020-06-04] MEDS: LEVOTHYROXINE 50MCG TABLET (0.05MG) PO SCH (08:48)
[2020-06-04] MEDS: GABAPENTIN 400 MG CAP PO SCH ×4 (08:49→20:20)
[2020-06-04] MEDS: busPIRone 5 MG TAB PO SCH ×3 (08:49→20:20)
[2020-06-04] MEDS: SERTRALINE HCL 25 MG TABLET PO SCH (08:49)
[2020-06-04] MEDS: oxyBUTYnin 5 MG TAB PO SCH ×2 (08:49→20:19)
[2020-06-04] MEDS: BUPRENORPHINE/NALOXONE 8-2MG SUBLINGUAL TABLET(SUBOXONE) SL SCH ×2 (08:50→16:40)
--- NOTE | 2020-06-04 12:26 | MHIPNPDOC ---
[facility] Progress Note Progress Note DATE OF SERVICE: 06/04/20 HISTORY OF THE PRESENT ILLNESS: "I came to the hospital because I have something in my stomach, I think its a recording and I didn't put it there, I don't know who did and I want it out." Patient is a 34 -year-old Single, Unemployed, Domiciled, , female, who self presented to [facility] with delusional thoughts. Patient was recently discharged from [facility] in April and was admitted to [facility] door to door which she completed. She states she began using the day she was discharged. Using Heroin, Bath Salts and Methamphetamines a "few days ago." She came with complaints that there is something wrong in her stomach. She believes that she has a recording device in her stomach and that she needs to have surgery. VITAL SIGNS: See below. NEW TEST RESULTS: CURRENT MEDICATIONS: See below. MENTAL STATUS EXAMINATION: Patient is a 34 -year-old Single, Unemployed, Domiciled, , female, who self presented to [facility] with delusional thoughts. SSpeech: Is normal rate, tone and volume Language skills are good/intact Thought processes including: linear/realist based Thought content: denies depression, suicidal/homicidal ideation, planning or intent. During interview she was not displaying manic behaviors, a/v hallucinations, she still feels that she should have not been sent to psychiatry. Abstract reasoning, and computation: fair. Description of associations: none noted Description of abnormal or psychotic thoughts: believes that she should have surgery based on what the ED MD told her that there was "something" there. Judgment: fair to poor at times Insight: fair to poor at times Orientation: alert and oriented Recent and remote memory: intact Attention span and concentration: fair Language: average Fund of knowledge: average Mood: blunted congruent with mood DIAGNOSES: Unspecified Psychotic Disorder Methamphetamine Use Disorder Stimulant (Bath Salts) Use Disorder Methamphetamine Induced Psychosis Opiate Use Disorder Schizoaffective Disorder ASSESSMENT:Patient observed with continued delusional thought. Focused on why she was admitted to psychiatry vs having surgery. Reinforced with patient the findings of the imaging report and the Medical H + P, which shows constipation. Patient is calm and cooperative in the interview. She requested a journal for herself. She appeared mostly blunted in the interview, but had a brighter affect at times. MANAGEMENT PLAN:Discharge when she is stable. Patient is agreeable to restart Invega Sustenna PINZON which she will start on Tuesday06/06/20 with a booster on Tuesday06/09/20. Reviewed with her the QT prolongation, patient's last EKG at her last admission and current EKG are similar. She agrees to medications. TIME SPENT: 25 minutes. Vital Signs Vital Signs Date Time Temp Pulse Resp B/P (MAP) Pulse Ox O2 Delivery O2 Flow Rate FiO2 06/04/20 06:55 97.8 72 14 108/58 (75) 98 Room Air Current Medications Current Medications Medications (Trade) Dose Ordered Sig/René Route PRN Reason Start Time Stop Time Status Last Admin Dose Admin Acetaminophen (Tylenol Tab) 650 mg Q6HP PRN PO HEADACHE or DISCOMFORT 06/03/20 02:00 Al Hydrox/Mg Hydrox/Simethicone (Mylanta) 30 ml Q4HP PRN PO HEARTBURN/INDIGESTION 06/03/20 02:00 Amitriptyline HCl (Elavil) 25 mg QHS PO 06/03/20 21:00 06/03/20 20:14 Buprenorphine/ Naloxone (Suboxone 8/2mg) 1 tab BID SL 06/03/20 09:00 06/03/20 16:11 DC 06/03/20 08:12 Buprenorphine/ Naloxone (Suboxone 8/2mg) 1 tab BID SL 06/03/20 21:00 06/03/20 17:15 DC Buprenorphine/ Naloxone (Suboxone 8/2mg) 1 tab BID@0900,1600 SL 06/03/20 16:00 06/04/20 08:50 Buspirone HCl (Buspar) 15 mg TID PO 06/03/20 09:00 06/04/20 08:49 Docusate Sodium (Colace) 100 mg TID PRN PO CONSTIPATION 06/03/20 02:00 Gabapentin (Neurontin) 400 mg QID PO 06/02/20 21:00 06/04/20 08:49 Haloperidol (Haldol) 2 mg Q6H PRN PO AGITATION 06/03/20 02:00 06/03/20 10:44 DC Home Med (Med Rec Complete!) ASDIRECTED XX 06/02/20 16:30 06/02/20 16:30 DC Levothyroxine Sodium (Synthroid) 50 mcg DAILY PO 06/03/20 09:00 06/04/20 08:48 Magnesium Hydroxide (Milk Of Magnesia) 30 ml DAILYPRN PRN PO CONSTIPATION 06/03/20 02:00 Mirtazapine (Remeron) 7.5 mg QHS PO 06/03/20 21:00 06/03/20 20:14 Nicotine (Nicorette) 2 mg Q2HP PRN PO NICOTINE WITHDRAWAL 06/03/20 09:00 06/04/20 10:37 Olanzapine (ZyPREXA ZYDIS) 5 mg Q6HP PRN PO ANXIETY/AGITATION 06/03/20 02:00 06/04/20 06:24 Olanzapine (ZyPREXA) 5 mg BID PO 06/03/20 09:00 06/03/20 10:48 DC 06/03/20 08:12 Oxybutynin Chloride (Ditropan) 5 mg BID PO 06/03/20 09:00 06/04/20 08:49 Paliperidone (Invega) 3 mg QHS PO 06/03/20 21:00 06/03/20 20:16 Paliperidone Palmitate (Invega Sustenna) 156 mg Q30D IM 06/09/20 09:00 Paliperidone Palmitate (Invega Sustenna) 234 mg Q30D IM 06/06/20 09:00 Prazosin HCl (Minipress) 1 mg QHS PO 06/03/20 21:00 06/03/20 20:14 Sertraline HCl (Zoloft) 25 mg DAILY PO 06/03/20 09:00 06/04/20 08:49 Topiramate (TopAMAX) 50 mg BID PO 06/02/20 21:00 06/04/20 08:48 Topiramate (TopAMAX) 100 mg BID PO 06/02/20 21:00 06/04/20 08:48 Trazodone HCl (Desyrel) 50 mg QHSP PRN PO INSOMNIA 06/03/20 02:00 Allergies Coded Allergies: No Known Allergies (Verified , 06/02/20) POOJA HARO NP Jun 04, 2020 12:26
[2020-06-04 18:19] VITALS: BP 128/78
[2020-06-04] MEDS: MIRTAZAPINE 15 MG TAB PO SCH (20:19)
[2020-06-04] MEDS: AMITRIPTYLINE 25 MG TAB PO SCH (20:20)
[2020-06-04] MEDS: PRAZOSIN 1 MG CAP PO SCH (20:21)
[2020-06-04] MEDS: PALIPERIDONE 3 MG ER TAB (INVEGA) PO SCH (20:21)
[2020-06-05] MEDS: OLANZapine ORAL DISINTEGRATING TAB 5MG PO PRN ×3 (05:20→17:25)
[2020-06-05] MEDS: NICOTINE POLACRILEX 2 MG GUM PO PRN ×4 (06:10→22:04)
[2020-06-05 06:21] VITALS: BP 96/54
[2020-06-05] MEDS: TOPIRAMATE (TopAMAX) 100 MG TAB PO SCH ×2 (08:22→22:04)
[2020-06-05] MEDS: oxyBUTYnin 5 MG TAB PO SCH ×2 (08:22→22:05)
[2020-06-05] MEDS: TOPIRAMATE (TopAMAX) 25 MG TAB PO SCH ×2 (08:22→22:04)
[2020-06-05] MEDS: BUPRENORPHINE/NALOXONE 8-2MG SUBLINGUAL TABLET(SUBOXONE) SL SCH ×2 (08:22→16:21)
[2020-06-05] MEDS: LEVOTHYROXINE 50MCG TABLET (0.05MG) PO SCH (08:22)
[2020-06-05] MEDS: GABAPENTIN 400 MG CAP PO SCH ×4 (08:22→22:05)
[2020-06-05] MEDS: SERTRALINE HCL 25 MG TABLET PO SCH (08:22)
[2020-06-05] MEDS: busPIRone 5 MG TAB PO SCH ×3 (08:22→22:04)
[2020-06-05] MEDS: hydrOXYzine 50 MG TAB PO PRN (11:36)
--- NOTE | 2020-06-05 11:59 | MHIPNPDOC ---
[facility] Progress Note Progress Note DATE OF SERVICE: 06/05/20 HISTORY OF THE PRESENT ILLNESS: "I came to the hospital because I have something in my stomach, I think its a recording and I didn't put it there, I don't know who did and I want it out." Patient is a 34 -year-old Single, Unemployed, Domiciled, , female, who self presented to [facility] with delusional thoughts. Patient was recently discharged from [facility] in April and was admitted to [facility] door to door which she completed. She states she began using the day she was discharged. Using Heroin, Bath Salts and Methamphetamines a "few days ago." She came with complaints that there is something wrong in her stomach. She believes that she has a recording device in her stomach and that she needs to have surgery. VITAL SIGNS: See below. NEW TEST RESULTS: CURRENT MEDICATIONS: See below. MENTAL STATUS EXAMINATION: Patient is a 34 -year-old Single, Unemployed, Domiciled, , female, who self presented to [facility] with delusional thoughts believed that there was a recording device in her stomach. Dressed appropriately, hygiene and grooming is good. No psychomotor changes. Speech: Is normal rate, tone and volume Language skills are good/intact Thought processes including: linear/realist based Thought content: reports moderate depression, denies suicidal/homicidal ideation, planning or intent. Abstract reasoning, and computation: fair. Description of associations: none noted Description of abnormal or psychotic thoughts: believes that she should have surgery based on what the ED MD told her that there was "something" there. 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 States that she had poor sleep and that she continues to be very anxious. She voices no delusional thoughts today. No paranoia. Calm and Cooperative on the unit. States that Trazodone is not helpful, had Mirtazapine 30 mg in the past. Trazodone discontinued, Mirtazapine 30 mg ordered and Vistaril ordered for anxiety MANAGEMENT PLAN: Discharge when she is stable - probably Tuesday. Patient is agreeable to restart Invega Sustenna PINZON which she will start on Tuesday06/06/20 with a booster on Tuesday06/09/20. Reviewed with her the QT prolongation, patient's last EKG at her last admission and current EKG are similar. She agrees to medications. TIME SPENT: 25 minutes. Vital Signs Vital Signs Date Time Temp Pulse Resp B/P (MAP) Pulse Ox O2 Delivery O2 Flow Rate FiO2 06/05/20 06:21 97.4 103 16 96/54 (68) 100 Room Air Current Medications Current Medications Medications (Trade) Dose Ordered Sig/René Route PRN Reason Start Time Stop Time Status Last Admin Dose Admin Acetaminophen (Tylenol Tab) 650 mg Q6HP PRN PO HEADACHE or DISCOMFORT 06/03/20 02:00 Al Hydrox/Mg Hydrox/Simethicone (Mylanta) 30 ml Q4HP PRN PO HEARTBURN/INDIGESTION 06/03/20 02:00 Amitriptyline HCl (Elavil) 25 mg QHS PO 06/03/20 21:00 06/04/20 20:20 Buprenorphine/ Naloxone (Suboxone 8/2mg) 1 tab BID SL 06/03/20 09:00 06/03/20 16:11 DC 06/03/20 08:12 Buprenorphine/ Naloxone (Suboxone 8/2mg) 1 tab BID SL 06/03/20 21:00 06/03/20 17:15 DC Buprenorphine/ Naloxone (Suboxone 8/2mg) 1 tab BID@0900,1600 SL 06/03/20 16:00 06/05/20 08:22 Buspirone HCl (Buspar) 15 mg TID PO 06/03/20 09:00 06/05/20 08:22 Docusate Sodium (Colace) 100 mg TID PRN PO CONSTIPATION 06/03/20 02:00 Gabapentin (Neurontin) 400 mg QID PO 06/02/20 21:00 06/05/20 08:22 Haloperidol (Haldol) 2 mg Q6H PRN PO AGITATION 06/03/20 02:00 06/03/20 10:44 DC Home Med (Med Rec Complete!) ASDIRECTED XX 06/02/20 16:30 06/02/20 16:30 DC Hydroxyzine HCl (Atarax) 50 mg Q6HP PRN PO Anxiety 06/05/20 11:15 06/05/20 11:36 Levothyroxine Sodium (Synthroid) 50 mcg DAILY PO 06/03/20 09:00 06/05/20 08:22 Magnesium Hydroxide (Milk Of Magnesia) 30 ml DAILYPRN PRN PO CONSTIPATION 06/03/20 02:00 Mirtazapine (Remeron) 7.5 mg QHS PO 06/03/20 21:00 06/05/20 11:47 DC 06/04/20 20:19 Mirtazapine (Remeron) 30 mg QHS PO 06/05/20 21:00 Nicotine (Nicorette) 2 mg Q2HP PRN PO NICOTINE WITHDRAWAL 06/03/20 09:00 06/05/20 10:04 Olanzapine (ZyPREXA ZYDIS) 5 mg Q6HP PRN PO ANXIETY/AGITATION 06/03/20 02:00 06/05/20 09:35 Olanzapine (ZyPREXA) 5 mg BID PO 06/03/20 09:00 06/03/20 10:48 DC 06/03/20 08:12 Oxybutynin Chloride (Ditropan) 5 mg BID PO 06/03/20 09:00 06/05/20 08:22 Paliperidone (Invega) 3 mg QHS PO 06/03/20 21:00 06/04/20 20:21 Paliperidone Palmitate (Invega Sustenna) 156 mg Q30D IM 06/09/20 09:00 Paliperidone Palmitate (Invega Sustenna) 234 mg Q30D IM 06/06/20 09:00 Prazosin HCl (Minipress) 1 mg QHS PO 06/03/20 21:00 06/04/20 20:21 Sertraline HCl (Zoloft) 25 mg DAILY PO 06/03/20 09:00 06/05/20 11:11 DC 06/05/20 08:22 Sertraline HCl (Zoloft) 50 mg QAM PO 06/06/20 09:00 Topiramate (TopAMAX) 50 mg BID PO 06/02/20 21:00 06/05/20 08:22 Topiramate (TopAMAX) 100 mg BID PO 06/02/20 21:00 06/05/20 08:22 Trazodone HCl (Desyrel) 50 mg QHSP PRN PO INSOMNIA 06/03/20 02:00 06/05/20 11:11 DC Allergies Coded Allergies: No Known Allergies (Verified , 06/02/20) POOJA HARO NP Jun 05, 2020 11:59
[2020-06-05] MEDS ORDERED: OLANZapine ORAL DISINTEGRATING TAB 5MG PO STA (12:31)
[2020-06-05 18:20] VITALS: BP 114/64
[2020-06-05] MEDS: MIRTAZAPINE 15 MG TAB PO SCH (22:04)
[2020-06-05] MEDS: AMITRIPTYLINE 25 MG TAB PO SCH (22:04)
[2020-06-05] MEDS: PALIPERIDONE 3 MG ER TAB (INVEGA) PO SCH (22:04)
[2020-06-05] MEDS: PRAZOSIN 1 MG CAP PO SCH (22:05)
[2020-06-06 06:31] VITALS: BP 120/65
[2020-06-06] MEDS: SERTRALINE HCL 50 MG TAB PO SCH (08:46)
[2020-06-06] MEDS: LEVOTHYROXINE 50MCG TABLET (0.05MG) PO SCH (08:46)
[2020-06-06] MEDS: TOPIRAMATE (TopAMAX) 100 MG TAB PO SCH ×2 (08:47→20:08)
[2020-06-06] MEDS: oxyBUTYnin 5 MG TAB PO SCH ×2 (08:47→20:08)
[2020-06-06] MEDS: busPIRone 5 MG TAB PO SCH ×3 (08:47→20:08)
[2020-06-06] MEDS: TOPIRAMATE (TopAMAX) 25 MG TAB PO SCH ×2 (08:47→20:08)
[2020-06-06] MEDS: hydrOXYzine 50 MG TAB PO PRN ×2 (08:48→15:43)
[2020-06-06] MEDS: GABAPENTIN 400 MG CAP PO SCH ×4 (08:48→20:07)
[2020-06-06] MEDS: BUPRENORPHINE/NALOXONE 8-2MG SUBLINGUAL TABLET(SUBOXONE) SL SCH ×2 (08:48→15:44)
[2020-06-06] MEDS ORDERED: PALIPERIDONE PALMITATE 234MG/1.5ML INJ (INVEGA)(FREE PSY INPT ONLY) IM SCH (09:00)
[2020-06-06] MEDS: NICOTINE POLACRILEX 2 MG GUM PO PRN ×4 (09:09→15:45)
[2020-06-06] MEDS: OLANZapine ORAL DISINTEGRATING TAB 5MG PO PRN (11:02)
--- NOTE | 2020-06-06 12:34 | MHIPNPDOC ---
[facility] Progress Note Progress Note DATE OF SERVICE: 06/06/20 HISTORY OF THE PRESENT ILLNESS: "I came to the hospital because I have something in my stomach, I think its a recording and I didn't put it there, I don't know who did and I want it out." Patient is a 34 -year-old Single, Unemployed, Domiciled, , female, who self presented to [facility] with delusional thoughts. Patient was recently discharged from [facility] in April and was admitted to [facility] door to door which she completed. She states she began using the day she was discharged. Using Heroin, Bath Salts and Methamphetamines a "few days ago." She came with complaints that there is something wrong in her stomach. She believes that she has a recording device in her stomach and that she needs to have surgery. VITAL SIGNS: See below. NEW TEST RESULTS: CURRENT MEDICATIONS: See below. MENTAL STATUS EXAMINATION: Patient is a 34 -year-old Single, Unemployed, Domiciled, , female, who self presented to [facility] with delusional thoughts believed that there was a recording device in her stomach. Dressed appropriately, hygiene and grooming is good. No psychomotor changes. Speech: Is normal rate, tone and volume, minimal responses Language skills are good/intact Thought processes including: linear/reality based Thought content: reports decrease in depression, denies suicidal/homicidal ideation, planning or intent. Abstract reasoning, and computation: fair. Description of associations: none noted Description of abnormal or psychotic thoughts: no endorsement of recorder in her stomach Judgment: fair Insight: fair Orientation: alert and oriented Recent and remote memory: intact Attention span and concentration: fair Language: average Fund of knowledge: average Mood: blunted congruent with mood DIAGNOSES: Unspecified Psychotic Disorder Methamphetamine Use Disorder Stimulant (Bath Salts) Use Disorder Methamphetamine Induced Psychosis Opiate Use Disorder Schizoaffective Disorder ASSESSMENT: Patient appears mildly depressed and flat. Patient reviewed with me medications that she feels that is working. Concerned that she will not have medications for anxiety. Reinforced that a reduced frequency of medications will be presented to her on discharge. She was agreeable. She is not observed w ith paranoia, delusional thoughts. MANAGEMENT PLAN: Discharge when she is stable - probably Tuesday. Patient is agreeable to restart Invega Sustenna PINZON which she will start on Tuesday06/06/20 with a booster on Tuesday06/09/20. Reviewed with her the QT prolongation, patient's last EKG at her last admission and current EKG are similar. She agrees to medications. TIME SPENT: 25 minutes. Vital Signs Vital Signs Date Time Temp Pulse Resp B/P (MAP) Pulse Ox O2 Delivery O2 Flow Rate FiO2 06/06/20 06:31 97.3 86 16 120/65 (83) Room Air 06/05/20 06:21 100 Current Medications Current Medications Medications (Trade) Dose Ordered Sig/René Route PRN Reason Start Time Stop Time Status Last Admin Dose Admin Acetaminophen (Tylenol Tab) 650 mg Q6HP PRN PO HEADACHE or DISCOMFORT 06/03/20 02:00 Al Hydrox/Mg Hydrox/Simethicone (Mylanta) 30 ml Q4HP PRN PO HEARTBURN/INDIGESTION 06/03/20 02:00 Amitriptyline HCl (Elavil) 25 mg QHS PO 06/03/20 21:00 06/05/20 22:04 Buprenorphine/ Naloxone (Suboxone 8/2mg) 1 tab BID SL 06/03/20 09:00 06/03/20 16:11 DC 06/03/20 08:12 Buprenorphine/ Naloxone (Suboxone 8/2mg) 1 tab BID SL 06/03/20 21:00 06/03/20 17:15 DC Buprenorphine/ Naloxone (Suboxone 8/2mg) 1 tab BID@0900,1600 SL 06/03/20 16:00 06/06/20 08:48 Buspirone HCl (Buspar) 15 mg TID PO 06/03/20 09:00 06/06/20 08:47 Docusate Sodium (Colace) 100 mg TID PRN PO CONSTIPATION 06/03/20 02:00 Gabapentin (Neurontin) 400 mg QID PO 06/02/20 21:00 06/06/20 08:48 Haloperidol (Haldol) 2 mg Q6H PRN PO AGITATION 06/03/20 02:00 06/03/20 10:44 DC Home Med (Med Rec Complete!) ASDIRECTED XX 06/02/20 16:30 06/02/20 16:30 DC Hydroxyzine HCl (Atarax) 50 mg Q6HP PRN PO Anxiety 06/05/20 11:15 06/06/20 08:48 Levothyroxine Sodium (Synthroid) 50 mcg DAILY PO 06/03/20 09:00 06/06/20 08:46 Magnesium Hydroxide (Milk Of Magnesia) 30 ml DAILYPRN PRN PO CONSTIPATION 06/03/20 02:00 Mirtazapine (Remeron) 7.5 mg QHS PO 06/03/20 21:00 06/05/20 11:47 DC 06/04/20 20:19 Mirtazapine (Remeron) 30 mg QHS PO 06/05/20 21:00 06/05/20 22:04 Nicotine (Nicorette) 2 mg Q2HP PRN PO NICOTINE WITHDRAWAL 06/03/20 09:00 06/06/20 11:11 Olanzapine (ZyPREXA ZYDIS) 5 mg Q6HP PRN PO ANXIETY/AGITATION 06/03/20 02:00 06/06/20 11:02 Olanzapine (ZyPREXA ZYDIS) 5 mg STAT STAT PO 06/05/20 12:31 06/05/20 12:34 DC 06/05/20 12:41 Olanzapine (ZyPREXA) 5 mg BID PO 06/03/20 09:00 06/03/20 10:48 DC 06/03/20 08:12 Oxybutynin Chloride (Ditropan) 5 mg BID PO 06/03/20 09:00 06/06/20 08:47 Paliperidone (Invega) 3 mg QHS PO 06/03/20 21:00 06/05/20 22:04 Paliperidone Palmitate (Invega Sustenna) 156 mg Q30D IM 06/09/20 09:00 Paliperidone Palmitate (Invega Sustenna) 234 mg Q30D IM 06/06/20 09:00 06/06/20 11:10 Prazosin HCl (Minipress) 1 mg QHS PO 06/03/20 21:00 06/05/20 22:05 Sertraline HCl (Zoloft) 25 mg DAILY PO 06/03/20 09:00 06/05/20 11:11 DC 06/05/20 08:22 Sertraline HCl (Zoloft) 50 mg QAM PO 06/06/20 09:00 06/06/20 08:46 Topiramate (TopAMAX) 50 mg BID PO 06/02/20 21:00 06/06/20 08:47 Topiramate (TopAMAX) 100 mg BID PO 06/02/20 21:00 06/06/20 08:47 Trazodone HCl (Desyrel) 50 mg QHSP PRN PO INSOMNIA 06/03/20 02:00 06/05/20 11:11 DC Allergies Coded Allergies: No Known Allergies (Verified , 06/02/20) POOJA HARO NP Jun 06, 2020 12:34
[2020-06-06] MEDS: DOCUSATE SODIUM 100 MG CAP PO PRN (15:45)
[2020-06-06 18:44] VITALS: BP 97/67
[2020-06-06] MEDS: PRAZOSIN 1 MG CAP PO SCH (20:07)
[2020-06-06] MEDS: MIRTAZAPINE 15 MG TAB PO SCH (20:07)
[2020-06-06] MEDS: PALIPERIDONE 3 MG ER TAB (INVEGA) PO SCH (20:07)
[2020-06-06] MEDS: AMITRIPTYLINE 25 MG TAB PO SCH (20:08)
[2020-06-07] MEDS: OLANZapine ORAL DISINTEGRATING TAB 5MG PO PRN ×2 (04:29→17:38)
[2020-06-07] MEDS: NICOTINE POLACRILEX 2 MG GUM PO PRN ×7 (04:29→20:40)
[2020-06-07 07:11] VITALS: BP 96/59
[2020-06-07] MEDS: oxyBUTYnin 5 MG TAB PO SCH ×2 (08:13→20:39)
[2020-06-07] MEDS: TOPIRAMATE (TopAMAX) 100 MG TAB PO SCH ×2 (08:14→20:40)
[2020-06-07] MEDS: SERTRALINE HCL 50 MG TAB PO SCH (08:14)
[2020-06-07] MEDS: LEVOTHYROXINE 50MCG TABLET (0.05MG) PO SCH (08:14)
[2020-06-07] MEDS: GABAPENTIN 400 MG CAP PO SCH ×4 (08:15→20:39)
[2020-06-07] MEDS: busPIRone 5 MG TAB PO SCH ×3 (08:15→20:39)
[2020-06-07] MEDS: TOPIRAMATE (TopAMAX) 25 MG TAB PO SCH ×2 (08:16→20:40)
[2020-06-07] MEDS: DOCUSATE SODIUM 100 MG CAP PO PRN (08:16)
[2020-06-07] MEDS: BUPRENORPHINE/NALOXONE 8-2MG SUBLINGUAL TABLET(SUBOXONE) SL SCH ×2 (08:47→15:56)
[2020-06-07] MEDS: hydrOXYzine 50 MG TAB PO PRN (11:56)
[2020-06-07 17:51] VITALS: BP 130/82
[2020-06-07] MEDS: AMITRIPTYLINE 25 MG TAB PO SCH (20:39)
[2020-06-07] MEDS: MIRTAZAPINE 15 MG TAB PO SCH (20:39)
[2020-06-07] MEDS: PALIPERIDONE 3 MG ER TAB (INVEGA) PO SCH (20:40)
[2020-06-07] MEDS: PRAZOSIN 1 MG CAP PO SCH (20:40)
[2020-06-08 06:54] VITALS: BP 89/59
[2020-06-08] MEDS: hydrOXYzine 50 MG TAB PO PRN (07:08)
[2020-06-08] MEDS: NICOTINE POLACRILEX 2 MG GUM PO PRN ×3 (07:08→11:39)
[2020-06-08] MEDS: oxyBUTYnin 5 MG TAB PO SCH ×2 (08:37→21:08)
[2020-06-08] MEDS: LEVOTHYROXINE 50MCG TABLET (0.05MG) PO SCH (08:37)
[2020-06-08] MEDS: SERTRALINE HCL 50 MG TAB PO SCH (08:38)
[2020-06-08] MEDS: busPIRone 10 MG TAB PO SCH ×3 (08:38→21:08)
[2020-06-08] MEDS: GABAPENTIN 400 MG CAP PO SCH ×4 (08:39→21:08)
[2020-06-08] MEDS: TOPIRAMATE (TopAMAX) 100 MG TAB PO SCH ×2 (08:39→21:08)
[2020-06-08] MEDS: TOPIRAMATE (TopAMAX) 25 MG TAB PO SCH ×2 (08:39→21:09)
[2020-06-08] MEDS: DOCUSATE SODIUM 100 MG CAP PO PRN (08:40)
[2020-06-08] MEDS: BUPRENORPHINE/NALOXONE 8-2MG SUBLINGUAL TABLET(SUBOXONE) SL SCH ×2 (08:41→16:00)
[2020-06-08] MEDS: AMITRIPTYLINE 25 MG TAB PO SCH (21:07)
[2020-06-08] MEDS: MIRTAZAPINE 15 MG TAB PO SCH (21:08)
[2020-06-08] MEDS: PALIPERIDONE 3 MG ER TAB (INVEGA) PO SCH (21:08)
[2020-06-08 21:10] VITALS: BP 108/66
[2020-06-08] MEDS: PRAZOSIN 1 MG CAP PO SCH (21:10)
[2020-06-09 06:11] VITALS: BP 114/68
[2020-06-09] MEDS: busPIRone 10 MG TAB PO SCH (08:35)
[2020-06-09] MEDS: TOPIRAMATE (TopAMAX) 100 MG TAB PO SCH (08:35)
[2020-06-09] MEDS: GABAPENTIN 400 MG CAP PO SCH ×2 (08:35→12:20)
[2020-06-09] MEDS: TOPIRAMATE (TopAMAX) 25 MG TAB PO SCH (08:35)
[2020-06-09] MEDS: SERTRALINE HCL 50 MG TAB PO SCH (08:35)
[2020-06-09] MEDS: oxyBUTYnin 5 MG TAB PO SCH (08:36)
[2020-06-09] MEDS: NICOTINE POLACRILEX 2 MG GUM PO PRN ×3 (08:36→12:27)
[2020-06-09] MEDS ORDERED: PALIPERIDONE PALMITATE 156MG/1ML INJ(INVEGA)(FREE PSY INPT ONLY) IM SCH (09:00)
[2020-06-09] MEDS: LEVOTHYROXINE 50MCG TABLET (0.05MG) PO SCH (09:28)
[2020-06-09] MEDS: BUPRENORPHINE/NALOXONE 8-2MG SUBLINGUAL TABLET(SUBOXONE) SL SCH (09:28)
[2020-06-09] MEDS: hydrOXYzine 50 MG TAB PO PRN (10:24)
[2020-06-09] MEDS ORDERED: BENZTROPINE 0.5 MG TAB PO ONE (11:30)
[2020-06-09] MEDS ORDERED: BENZTROPINE 0.5 MG TAB PO PRN (11:30)
[2020-06-09] MEDS: OLANZapine ORAL DISINTEGRATING TAB 5MG PO PRN (11:51)
[2020-06-09] MEDS ORDERED: SERTRALINE HCL 50 MG TAB PO ONE (12:00)
[2020-06-09] MEDS ORDERED: PALI1TAB2 PO (14:46)
[2020-06-09] MEDS ORDERED: PRAZ2CAP PO (14:46)
[2020-06-09] MEDS ORDERED: SERT-138 PO (14:46)
[2020-06-09] MEDS ORDERED: INVE234I IM (14:46)
[2020-06-09] MEDS ORDERED: REME15TA PO (14:46)
--- NOTE | 2020-06-09 16:03 | MHDSPDOC ---
[facility] Discharge Summary Discharge Summary DATE OF ADMISSION: Jun 03, 2020 at 01:54 DATE OF DISCHARGE: Jun 09, 2020 at 13:10 DISCHARGE DIAGNOSES: Unspecified Psychotic Disorder Methamphetamine Use Disorder Stimulant (Bath Salts) Use Disorder Methamphetamine Induced Psychosis Opiate Use Disorder Schizoaffective Disorder REASON FOR ADMISSION: Patient is a 34 -year-old Single, Unemployed, Domiciled, , female, who self presented to [facility] with delusional thoughts. "I came to the hospital because I have something in my stomach, I think its a recording and I didn't put it there, I don't know who did and I want it out." Patient was recently discharged from [facility] in April and was admitted to [facility] door to door which she completed. She states she began using the day she was discharged. Using Heroin, Bath Salts and Methamphetamines a "few days ago." She came with complaints that there is something wrong in her stomach. She believes that she has a recording device in her stomach and that she needs to have surgery. CONSULTANTS INVOLVED: See medical H + P by medical provider TREATMENT AND PROGRESS ON THE UNIT : Patient was admitted to the [facility] on a 9.39 legal status he was afforded the following treatment modalities: 1) Individual Therapy 2) Group Therapy 3) Medication Management 4) Milieu Therapy 5) Safe Environment HOSPITAL COURSE: Patient was restarted on her home medications, she was agreeable to start Paliperidone which she had on her last admission. She was also agreeable to Long Acting Injectable. She had Invega Sustenna 234 mg IM on 06/06/20 and the booster today. Her first two days she continued to report that she was upset with the ER MD not taking her seriously about the recorder in her stomach. By day 3 she had improved and was not endorsing any psychotic symptoms or delusions. DISCHARGE ASSESSMENT: Patient stated that she was feeling more agitated and was hoping for medication changes while also hoping for discharge. She was agreeable for discharge today when I reinforced with her that I would not discharge her today if she wanted to have her antipsychotic medication changed. She did not want any changes and decided to leave today. She had no depression, suicidal ideation, no psychotic symptoms in her discharge interview MENTAL STATUS EXAMINATION ON DISCHARGE: Patient is a 34 -year-old Single, Unemployed, Domiciled, , female, who self presented to [facility] with delusional thoughts. Speech: Is normal rate, tone and volume, minimal responses Language skills are good/intact Thought processes including: linear/reality based Thought content: reports decrease in depression, denies suicidal/homicidal ideation, planning or intent. Abstract reasoning, and computation: fair. Description of associations: none noted Description of abnormal or psychotic thoughts: no endorsement of recorder in her stomach Judgment: fair Insight: fair Orientation: alert and oriented Recent and remote memory: intact Attention span and concentration: fair Language: average Fund of knowledge: average Mood: blunted congruent with mood MEDICATIONS ON DISCHARGE: See Medication Reconciliation PLAN/FOLLOWUP ARRANGEMENTS: [facility] [address] Magistrate's notes The amount of time spent in the coordination of care for this patient was approximately 20 minutes. Vital Signs/I&Os Vital Signs Date Time Temp Pulse Resp B/P (MAP) Pulse Ox O2 Delivery O2 Flow Rate FiO2 06/09/20 06:11 98.5 97 20 114/68 (83) 100 Room Air Medications Scheduled Amitriptyline HCl (Amitriptyline HCl) 25 Mg Tablet, 25 MG PO QHS, (Reported) Buprenorphine HCl/Naloxone HCl (Suboxone 8 mg-2 mg Sl Film) 1 Each Film, 1 FILM SL BID, (Reported) Buspirone HCl (Buspirone HCl) 15 Mg Tablet, 15 MG PO TID, (Reported) Gabapentin (Gabapentin) 400 Mg Capsule, 400 MG PO QID, (Reported) Levothyroxine Sodium (Levothyroxine Sodium) 50 Mcg Tablet, 50 MCG PO DAILY, (Reported) Mirtazapine (Remeron) 15 Mg Tablet, 30 MG PO QHS for Insomnia, #14 Oxybutynin Chloride (Oxybutynin Chloride) 5 Mg Tablet, 5 MG PO BID for ., (R eported) Paliperidone (Paliperidone ER) 3 Mg Tab.er.24, 3 MG PO QHS for Antipsychotic, #7 Paliperidone Palmitate (Invega Sustenna) 234 Mg/1.5 Ml Syringe, 234 MG IM Q30D for Antipsychotic, #1 Prazosin Hcl (Prazosin HCl) 2 Mg Capsule, 2 MG PO QHS for Insomnia, #7 Sertraline HCl (Sertraline HCl) 100 Mg Tablet, 100 MG PO DAILY for Depression, #7 Topiramate (Topiramate) 50 Mg Tablet, 50 MG PO BID, (Reported) Topiramate (Topiramate) 100 Mg Tablet, 100 MG PO BID, (Reported) Scheduled PRN Docusate Sodium (Dok) 100 Mg Capsule, 100 MG PO TID PRN for CONSTIPATION, (Reported) Allergies Coded Allergies: No Known Allergies (Verified , 06/02/20) POOJA HARO NP Jun 09, 2020 16:02
[2020-06-09] MEDS ORDERED: PRAZOSIN 1 MG CAP PO SCH (21:00)
--- NOTE | 2020-06-10 07:26 | MHIPN ---
DATE OF SERVICE: 06/07/2020 HISTORY OF PRESENT ILLNESS: The patient today states I am doing good. She complains that he still did not sleep good; however, she also says that she is having a lot of anxiety. She admits that she still feels that she has a recording in her abdomen. MENTAL STATUS EXAM: She is alert and oriented times 3. She is noted to have poor eye contact and decreased psychomotor activity. She speaks almost in monotone. There is no formal thought disorder noted. She says her mood is good. Her affect is flat. She continues to be paranoid. She is denying suicidal or homicidal ideations. Concentration is fair. Memory intact. Insight and judgment poor. DIAGNOSES: * Unspecified psychotic disorder. * Methamphetamine use disorder. * Stimulant (bath salt) use disorder. * Methamphetamine induced psychosis. * Opioid use disorder. * Schizoaffective disorder. TREATMENT PLAN: At this point we will continue to monitor the patient for her ongoing paranoid thoughts and we will await further response from her medications. She was just stated on Invega Sustenna injections. [facility]
[2020-06-10] MEDS ORDERED: SERTRALINE 100 MG TAB PO SCH (09:00)
== END 2020-06-09 13:10 | disposition home or self-care (01) | DRG 751 ==
LOC: M ED 13:17 → M ED INP 06-03 01:54 → M PSY 06-03 05:05
PROVIDERS: ADMIT Psychiatry & Neurology Psychiatry; ATTEND Psychiatry & Neurology Psychiatry
DX: F29 Unspecified psychosis not due to a substance or known physiological condition (principal); F25.9 Schizoaffective disorder, unspecified; F11.159 Opioid abuse with opioid-induced psychotic disorder, unspecified; F15.159 Other stimulant abuse with stimulant-induced psychotic disorder, unspecified; F17.200 Nicotine dependence, unspecified, uncomplicated; Z79.899 Other long term (current) drug therapy; K59.00 Constipation, unspecified

== ENCOUNTER 2020-06-16 11:23 | Inpatient (IN) | payer MEDICAID ==
[~2020-06-16] VITALS: Ht 154.9 cm; Wt 60.4 kg
[~2020-06-16 11:23] MED LIST changes: +AMIT10TA PO; +AMIT25TA PO; +GABA-845 PO; +HALO1TAB19 PO; +LEVO50TA5 PO; +OLAN5TAB PO; +PRAZ2CAP PO; +SERT-138 PO; +SERT25TA85 PO; +ZOLO50TA PO
[2020-06-16 12:08] LABS: HEMATOCRIT 38.8 % (36.0-47.0); HEMOGLOBIN 12.9 g/dl (12.0-15.5); MEAN CORPUSCULAR HEMOGLOBIN 29.9 pg (27.0-33.0); MEAN CORPUSCULAR HGB CONC 33.2 g/dl (32.0-36.5); PLATELET COUNT, AUTOMATED 246 10^3/uL (150-450); RED BLOOD COUNT 4.31 10^6/uL (4.00-5.40); WHITE BLOOD COUNT 4.5 10^3/uL (4.0-10.0)
[2020-06-16 12:38] LABS: ATYPICAL LYMPH 1 % (0-5); BASOPHILS 1 % (0-1); EOSINOPHILS 1 % (0-3); LYMPHOCYTES 52 % (16-44); MONOCYTES 9 % (0-5); NEUTROPHILS 36 % (28-66)
[2020-06-16 12:39] LABS: PLATELET ESTIMATE NORMAL (NORMAL)
[2020-06-16 12:59] LABS: ACETAMINOPHEN LEVEL < 2.0 UG/ML (10.0-30.0); ALT/SGPT 74 U/L (12-78); BILIRUBIN,DIRECT 0.1 MG/DL (0.0-0.2); BILIRUBIN,TOTAL 0.4 MG/DL (0.2-1.0); BLOOD UREA NITROGEN 10 MG/DL (7-18); CALCIUM LEVEL 9.4 MG/DL (8.5-10.1); CARBON DIOXIDE LEVEL 25 MEQ/L (21-32); CHLORIDE LEVEL 107 MEQ/L (98-107); CPK CREATINE PHOSPHOKINASE 572 U/L (26-192); CREATININE FOR GFR 0.66 MG/DL (0.55-1.30); ETHYL ALCOHOL (ETHANOL) < 0.003 % (0.000-0.010); GLOMERULAR FILTRATION RATE > 60.0 (>60); GLUCOSE, FASTING 103 MG/DL (70-100); POTASSIUM SERUM 4.2 MEQ/L (3.5-5.1); SALICYLATE LEVEL < 1.7 MG/DL (5.0-30.0); SODIUM LEVEL 139 MEQ/L (136-145)
[2020-06-16 13:35] LABS: AMPHETAMINES LEVEL URINE POSITIVE (NEGATIVE); BARBITURATES URINE NEGATIVE (NEGATIVE); BENZODIAZEPINES URINE NEGATIVE (NEGATIVE); CANNABINOIDS URINE POSITIVE (NEGATIVE); COCAINE METABOLITE URINE NEGATIVE (NEGATIVE); METHADONE URINE NEGATIVE (NEGATIVE); OPIATES URINE NEGATIVE (NEGATIVE); PHENCYCLIDINE URINE NEGATIVE (NEGATIVE)
[2020-06-16] MEDS ORDERED: SERT-138 PO (20:11)
[2020-06-16] MEDS ORDERED: PRAZ2CAP PO (20:11)
[2020-06-16] MEDS ORDERED: INVE234I IM (20:11)
[2020-06-16] MEDS ORDERED: PALI1TAB2 PO (20:11)
[2020-06-16] MEDS ORDERED: REME30TA PO (20:11)
[2020-06-16] MEDS ORDERED: OLANZapine ORAL DISINTEGRATING TAB 5MG PO PRN (22:15)
[2020-06-16] MEDS ORDERED: MOM 30ML SUSPENSION UDC PO PRN (22:15)
[2020-06-16] MEDS ORDERED: traZODone 50 MG TAB PO PRN (22:15)
[2020-06-16] MEDS ORDERED: MAALOX 30 ML SUSP *UDC PO PRN (22:15)
[2020-06-16] MEDS ORDERED: ACETAMINOPHEN TAB 650MG DOSE (2X325MG) PO PRN (22:15)
[2020-06-16] MEDS ORDERED: DOCUSATE SODIUM 100 MG CAP PO PRN (22:15)
[2020-06-16] MEDS: TOPIRAMATE (TopAMAX) 100 MG TAB PO SCH (23:37)
[2020-06-16] MEDS: TOPIRAMATE (TopAMAX) 25 MG TAB PO SCH (23:37)
[2020-06-16] MEDS: busPIRone 5 MG TAB PO SCH (23:38)
[2020-06-16] MEDS: PRAZOSIN 1 MG CAP PO SCH (23:38)
[2020-06-16] MEDS: GABAPENTIN 400 MG CAP PO SCH (23:38)
--- NOTE | 2020-06-16 23:56 | ECGEPIP ---
[facility] - ED Test Date: 2020-06-16 Pat Name: BIGG SIMS Department: Room: - Gender: Female Mix Chemist: shonhaleigh : 1985 Requested By: LANDRY Alexander Order Number: [id number] Reading MD: Taco Blackman Measurements Intervals Baker Rate: 66 P: 22 AR: 140 QRS: 56 QRSD: 105 T: 30 QT: 454 QTc: 479 Interpretive Statements SINUS RHYTHM INCOMPLETE RIGHT BUNDLE BRANCH BLOCK NSTTW ABNORMALITY(S) SIMILAR TO 06/02/20 Electronically Signed on 06-16-2020 23:56:05 EST by Taco Blackman
[2020-06-17 01:10] VITALS: BP 96/64
[2020-06-17] MEDS: PALIPERIDONE 3 MG ER TAB (INVEGA) PO SCH ×2 (02:50→21:23)
[2020-06-17] MEDS: AMITRIPTYLINE 25 MG TAB PO SCH ×2 (02:51→21:23)
[2020-06-17] MEDS: oxyBUTYnin 5 MG TAB PO SCH ×3 (02:51→21:22)
[2020-06-17] MEDS: MIRTAZAPINE 15 MG TAB PO SCH ×2 (02:51→21:23)
[2020-06-17] MEDS: LEVOTHYROXINE 50MCG TABLET (0.05MG) PO SCH (09:45)
[2020-06-17] MEDS: TOPIRAMATE (TopAMAX) 100 MG TAB PO SCH ×2 (09:46→21:23)
[2020-06-17] MEDS: TOPIRAMATE (TopAMAX) 25 MG TAB PO SCH ×2 (09:46→21:23)
[2020-06-17] MEDS: GABAPENTIN 400 MG CAP PO SCH ×4 (09:47→21:22)
[2020-06-17] MEDS: SERTRALINE 100 MG TAB PO SCH (09:47)
[2020-06-17] MEDS: busPIRone 5 MG TAB PO SCH ×3 (09:47→21:23)
--- NOTE | 2020-06-17 13:29 | HPEPDOC ---
[facility] Medical History & Physical Date of Admission Jun 16, 2020 Date of Service: Jun 17, 2020 History and Physical CHIEF COMPLAINT: Hospitalist consult for [facility] patient HISTORY OF PRESENT ILLNESS: 34F brought to ED by her step father. Admits to illicit drug use that night, including crystal meth. She complains of severe paranoia, with thought that people are trying to kill her. She denies SI/HI. She notes auditory and visual hallucinations, without specific details. She denies chest pain, shortness of breath, FORD, N/V/D, abdominal pain. REVIEW OF SYSTEMS: Negative except as per HPI PAST MEDICAL HISTORY: Substance abuse (methamphetamines, heroin) disorder Psych history - as per records: Schizoaffective disorder Depression Anxiety Bipolar disorder PAST SURGICAL HISTORY: C section umbilical hernia repair FAMILY HISTORY: Father: cirrhosis, , does not know age Mother: healthy, alive SOCIAL HISTORY: Smoker 1 pack per day for greater than 10 years. Lives alone and is currently unemployed. ALLERGIES: Please see below. CURRENT MEDICATIONS: Please see below. PHYSICAL EXAMINATION: VS: Please see below CONSTITUTIONAL: No acute distress, resting comfortably, AAO x 3 EYES: PERRLA, EOM intact HENT, MOUTH: Normocephalic, atraumatic, moist mucous membranes, NECK: SUPPLE, no JVD, no lymphadenopathy, no carotid bruit CV: Regular rate and rhythm, S1S2 normal, no murmurs/rubs/gallops RESPIRATORY: Clear to auscultation bilaterally, no rales/rhonchi/wheezes GI: BS positive in 4 quadrants, soft, nontender, nondistended, no rebound or guarding, no organomegaly : Deferred MUSCULOSKELETAL: Normal ROM. No cyanosis, clubbing, swelling, joint deformity, extremity edema INTEGUMENTARY: Intact, no rashes, no lesions, no erythema NEUROLOGIC: Cranial Nerves II-XII are intact, no focal deficits PSYCHIATRIC: Very flat affect LABORATORY DATA: Please see below ASSESSMENT: 34F admitted for unspecified psychotic disorder PLAN: #Paranoia - as per primary team - psychiatry Thank you for this consult. Please reconsult as needed. Vital Signs Vital Signs Date Time Temp Pulse Resp B/P (MAP) Pulse Ox O2 Delivery O2 Flow Rate FiO2 06/17/20 01:10 97.8 107 18 96/64 (75) Room Air 11/16/20 19:30 99 Laboratory Data Labs 24H Laboratory Tests 2 06/16/20 19:44: Coronavirus (COVID-19)(PCR) NEGATIVE Home Medications Scheduled Amitriptyline HCl (Amitriptyline HCl) 25 Mg Tablet, 25 MG PO QHS Buprenorphine HCl/Naloxone HCl (Suboxone 8 mg-2 mg Sl Film) 1 Each Film, 1 FILM SL BID Buspirone HCl (Buspirone HCl) 15 Mg Tablet, 15 MG PO TID Gabapentin (Gabapentin) 400 Mg Capsule, 400 MG PO QID Levothyroxine Sodium (Levothyroxine Sodium) 50 Mcg Tablet, 50 MCG PO DAILY Mirtazapine (Remeron) 30 Mg Tablet, 30 MG PO QHS Oxybutynin Chloride (Oxybutynin Chloride) 5 Mg Tablet, 5 MG PO BID Paliperidone (Paliperidone ER) 3 Mg Tab.er.24, 3 MG PO QHS Paliperidone Palmitate (Invega Sustenna) 234 Mg/1.5 Ml Syringe, 234 MG IM QMONTH Prazosin Hcl (Prazosin HCl) 2 Mg Capsule, 2 MG PO QHS Sertraline HCl (Sertraline HCl) 100 Mg Tablet, 100 MG PO DAILY Topiramate (Topiramate) 50 Mg Tablet, 50 MG PO BID Topiramate (Topiramate) 100 Mg Tablet, 100 MG PO BID Scheduled PRN Docusate Sodium (Dok) 100 Mg Capsule, 100 MG PO TID PRN for CONSTIPATION Allergies Coded Allergies: No Known Allergies (Verified , 06/02/20) A-FIB/CHADSVASC A-FIB History Current/History of A-Fib/PAF?: No VANNA CHEN MD Jun 17, 2020 13:29
--- NOTE | 2020-06-17 16:18 | MHHPEPDOC ---
General Date Of Admission: Jun 16, 2020 Legal Status: 9.39 Chief Complaint Patient is a 34 year old Single, Unemployed, Domiciled, Female who returns to the ED with a reported overdose of Crystal Meth, Soma and Gabapentin. Patient reports that she restarted using Meth upon her last discharge from this facility last week. History of Present Illness HISTORY OF THE PRESENT ILLNESS: Patient is a Single, Unemployed, Domiciled, Female who returns to the ED with a reported overdose of Crystal Meth, Soma and Gabapentin. Patient reports that she restarted using Meth upon her last discharge from this facility last week. Pt reports that she feels a continuous high since last evening and pt is increasingly paranoid and feels as though people are trying to kill her. Pt denies SI/HI/Self Inj. Pt reports that she has been hearing and seeing different things however, will not elaborate on what. Pt is very fixated on thinking that there is something in her stomach and pt continuously asks tw for an xray. Psychiatric Review of Systems Depression (2 or more weeks): denies Kriss (4 or more days of): denies Psychosis: delusions, paranoia, disorganization Past Psychiatric History Previous Psychiatric Diagnosis: Unspecified Psychosis, Methamphetamine Induced Psychosis Previous Psychiatric Admissions: Multiple Suicide Attempts: history of overdoses Psychiatric Follow-up: [facility] Psychiatric medications: See reconciliation Past Medical History Medical Problems 2 c-sections hernia repair Head Injury: No Seizures: No Hospitalizations: Yes Surgeries: Yes Family Medical/Psychiatric HX Medical Problems Father - Schizophrenia Psychiatric Disorders: No Addiction: No Suicide Attemps/Completions: No Addiction History nicotine, opioids, methamphetamines, other (cannabis) Social History Childhood: Born in [place], lived with mother growing up, she is an only child Abuse/Trauma: trauma history but does not elaborate Current Living Situation: living with stepfather Education: did not graduate high school Employment: unemployed Social Support: no one Legal: shelter x 1 year possession with intent to sell Marital: Single, , 2 children ages 13 and 18, she does not have custody Mental Status Examination General Appearance: disheveled, appears stated age, hospital scubs/clothing Build: average Demeanor: mistrustful Eye Contact: avoidant Activity: other (irritable) Behavior: agitated (mildly irritable demanding to know why she hasn't been given her Suboxone) Speech: clear Mood: irritable Affect: flat Thought Process: logical/linear Thought Content (Delusions): none reported, denies SI, HI, AVH Thought Content (Other): guarded Thought Content (Aggressive): none reported Perception (Hallucinations): none reported Perception (Other): none reported Cognition (Impairment of): none reported Cognition(Intelligence Est.): average Oriented: Awake, Alert, Oriented times three Insight: poor Judgment: Poor Psychosis: Denies Diagnoses Methamphetamine Induced Psychosis Opioid Use Disorder Tobacco Use Disorder Cannabis Use Disorder A-FIB/CHADSVASC A-FIB History Current/History of A-Fib/PAF?: No Assessment Admit to Psychiatry. Patient is not compliant with treatment, states that she returned to using meth upon discharge from this facility. We will restart medications, encourage outpatient rehab treatment and discharge when she is stable. Initial Treatment Plan 1. Patient was admitted on a [9.39] status. 2. Complete history was obtained. 3. With patients permission, family will be contacted and database will be expanded. 4. Patients medication regimen will be reviewed and changed accordingly. 5. Patient will be provided with protected environment. 6. Patient will be treated with individual, group, and milieu therapies. 7. Patient will receive supportive psych-education. 8. Discharge planning will commence immediately. 9. Outpatient follow-up treatment will be strongly recommended. 10. The initial treatment plan will focus initially on: * Depression. * Risk for suicide. ESTIMATED LENGTH OF STAY: 5-7 DAYS. TIME SPENT COUNSELING AND COORDINATING INITIAL CARE: 50 minutes. Vital Signs Vital Signs Date Time Temp Pulse Resp B/P (MAP) Pulse Ox O2 Delivery O2 Flow Rate FiO2 06/17/20 01:10 97.8 107 18 96/64 (75) Room Air 06/16/20 19:30 99 Laboratory Data 24H Labs Laboratory Tests 2 06/16/20 19:44: Coronavirus (COVID-19)(PCR) NEGATIVE Medications Scheduled Amitriptyline HCl (Amitriptyline HCl) 25 Mg Tablet, 25 MG PO QHS, (Reported) Buprenorphine HCl/Naloxone HCl (Suboxone 8 mg-2 mg Sl Film) 1 Each Film, 1 FILM SL BID, (Reported) Buspirone HCl (Buspirone HCl) 15 Mg Tablet, 15 MG PO TID, (Reported) Gabapentin (Gabapentin) 400 Mg Capsule, 400 MG PO QID, (Reported) Levothyroxine Sodium (Levothyroxine Sodium) 50 Mcg Tablet, 50 MCG PO DAILY, (Reported) Mirtazapine (Remeron) 30 Mg Tablet, 30 MG PO QHS, (Reported) Oxybutynin Chloride (Oxybutynin Chloride) 5 Mg Tablet, 5 MG PO BID, (Reported) Paliperidone (Paliperidone ER) 3 Mg Tab.er.24, 3 MG PO QHS, (Reported) Paliperidone Palmitate (Invega Sustenna) 234 Mg/1.5 Ml Syringe, 234 MG IM QMONTH, (Reported) Prazosin Hcl (Prazosin HCl) 2 Mg Capsule, 2 MG PO QHS, (Reported) Sertraline HCl (Sertraline HCl) 100 Mg Tablet, 100 MG PO DAILY, (Reported) Topiramate (Topiramate) 50 Mg Tablet, 50 MG PO BID, (Reported) Topiramate (Topiramate) 100 Mg Tablet, 100 MG PO BID, (Reported) Scheduled PRN Docusate Sodium (Dok) 100 Mg Capsule, 100 MG PO TID PRN for CONSTIPATION, (Reported) Allergies Coded Allergies: No Known Allergies (Verified , 06/02/20) POOJA HARO NP Jun 17, 2020 16:04
[2020-06-17] MEDS: BUPRENORPHINE/NALOXONE 8-2MG SUBLINGUAL TABLET(SUBOXONE) SL SCH (16:58)
[2020-06-17] MEDS: PRAZOSIN 1 MG CAP PO SCH (21:24)
[2020-06-18 06:41] VITALS: BP 100/65
[2020-06-18] MEDS: oxyBUTYnin 5 MG TAB PO SCH ×2 (08:48→21:28)
[2020-06-18] MEDS: SERTRALINE 100 MG TAB PO SCH (08:48)
[2020-06-18] MEDS: LEVOTHYROXINE 50MCG TABLET (0.05MG) PO SCH (08:49)
[2020-06-18] MEDS: BUPRENORPHINE/NALOXONE 8-2MG SUBLINGUAL TABLET(SUBOXONE) SL SCH ×2 (08:49→15:06)
[2020-06-18] MEDS: GABAPENTIN 400 MG CAP PO SCH ×4 (08:49→21:27)
[2020-06-18] MEDS: busPIRone 5 MG TAB PO SCH ×3 (08:49→21:27)
[2020-06-18] MEDS: TOPIRAMATE (TopAMAX) 100 MG TAB PO SCH ×2 (08:50→21:28)
[2020-06-18] MEDS: TOPIRAMATE (TopAMAX) 25 MG TAB PO SCH ×2 (08:50→21:27)
[2020-06-18] MEDS ORDERED: NICOTINE 21MG/24HR 1 EA TRANSDERMAL TD PRN (09:30)
--- NOTE | 2020-06-18 09:41 | MHIPNPDOC ---
[facility] Progress Note Progress Note DATE OF SERVICE: 06/18/20 HISTORY: Patient is a 34 year old Single, Unemployed, Domiciled, Female who returns to the ED with a reported overdose of Crystal Meth, Soma and Gabapentin. Patient reports that she restarted using Meth upon her last discharge from this facility last week. She is observed to be delusional and increasingly paranoid and feels as though people are trying to kill her. Pt denies SI/HI/Self Inj. Pt reports that she has been hearing and seeing different things however, will not elaborate on what. Pt is very fixated on thinking that there is something in her stomach and Pt continuously asks for an x-ray. VITAL SIGNS: See below. NEW TEST RESULTS: CURRENT MEDICATIONS: See below. MENTAL STATUS EXAMINATION: Patient is a 34 year old Single, Unemployed, Domiciled, Female who returns to the ED with a reported overdose of Crystal Meth, Soma and Gabapentin. She is disheveled, has fair hygiene and grooming, fleeting eye contact, no psychomotor agitation or retardation Speech: Is fluid, conversant, low rate, tone and volume Language skills are intact Thought processes including: linear and goal oriented Thought content: reports depression and anxiety. Abstract reasoning, and computation: fair Description of associations: denies, none observed Description of abnormal or psychotic thoughts: denies, none observed. Judgment: fair Insight: fair Orientation: alert and oriented to person, place, time and situation Recent and remote memory: intact Attention span and concentration: good Language: expansive Fund of knowledge: below average Mood: reports mild depression Affect: constricted DIAGNOSES: Methamphetamine Induced Psychosis Opioid Use Disorder Tobacco Use Disorder Cannabis Use Disorder ASSESSMENT: Patient observed to be flat affected, mildly med-seeking. States she needs Nicotine Gum and does not want the Invega Sustenna reporting that she had side effects, but does not elaborate. On her last admission, patient often would request med changes to her regimen, while they weren't inappropriate, she spent most of her time, complaining that medications were not helpful or that they needed to be changed. Encouraged the patient to seek outpatient rehab because she is historically non-compliant with mental health treatment plan nor rehab treatment. Patient admits that she is non-compliant, and she verbalized understanding that her medications coupled with drug use could be fatal. I again warned the patient about QTc prolongation. She verbalized understanding and insists that she does not want Paliperidone or Zyprexa. MANAGEMENT PLAN: Continue medication as ordered, patient will discharged when she feels she is stable. TIME SPENT: 25 minutes. Vital Signs Vital Signs Date Time Temp Pulse Resp B/P (MAP) Pulse Ox O2 Delivery O2 Flow Rate FiO2 06/18/20 06:41 97.7 75 18 100/65 (77) 96 Room Air Current Medications Current Medications Medications (Trade) Dose Ordered Sig/René Route PRN Reason Start Time Stop Time Status Last Admin Dose Admin Acetaminophen (Tylenol Tab) 650 mg Q6HP PRN PO HEADACHE or DISCOMFORT 06/16/20 22:15 Al Hydrox/Mg Hydrox/Simethicone (Mylanta) 30 ml Q4HP PRN PO HEARTBURN/INDIGESTION 06/16/20 22:15 Amitriptyline HCl (Elavil) 25 mg QHS PO 06/16/20 21:00 06/17/20 21:23 Buprenorphine/ Naloxone (Suboxone 8/2mg) 1 tab BID@0900,1600 SL 06/17/20 16:00 06/18/20 08:49 Buspirone HCl (Buspar) 15 mg TID PO 06/16/20 21:00 06/18/20 08:49 Docusate Sodium (Colace) 100 mg TID PRN PO CONSTIPATION 06/16/20 22:15 Gabapentin (Neurontin) 400 mg QID PO 06/16/20 21:00 06/18/20 08:49 Home Med (Med Rec Complete!) ASDIRECTED XX 06/16/20 21:00 06/16/20 20:56 DC Levothyroxine Sodium (Synthroid) 50 mcg DAILY PO 06/17/20 09:00 06/18/20 08:49 Magnesium Hydroxide (Milk Of Magnesia) 30 ml DAILYPRN PRN PO CONSTIPATION 06/16/20 22:15 Mirtazapine (Remeron) 30 mg QHS PO 06/16/20 21:00 06/17/20 21:23 Nicotine (Nicoderm Cq 21mg) 1 patch DAILYPRN PRN TD NICOTINE WITHDRAWAL 06/18/20 09:30 UNV Olanzapine (ZyPREXA ZYDIS) 5 mg Q4HP PRN PO AGITATION 06/16/20 22:15 06/18/20 08:48 Oxybutynin Chloride (Ditropan) 5 mg BID PO 06/16/20 21:00 06/18/20 08:48 Paliperidone (Invega) 3 mg QHS PO 06/16/20 21:00 06/17/20 21:23 Prazosin HCl (Minipress) 2 mg QHS PO 06/16/20 21:00 06/17/20 21:24 Sertraline HCl (Zoloft) 100 mg DAILY PO 06/17/20 09:00 06/18/20 08:48 Topiramate (TopAMAX) 50 mg BID PO 06/16/20 21:00 06/18/20 08:50 Topiramate (TopAMAX) 100 mg BID PO 06/16/20 21:00 06/18/20 08:50 Trazodone HCl (Desyrel) 50 mg QHSP PRN PO INSOMNIA 06/16/20 22:15 Allergies Coded Allergies: No Known Allergies (Verified , 06/02/20) POOJA HARO NP Jun 18, 2020 09:41
[2020-06-18] MEDS ORDERED: NICOTINE POLACRILEX 2 MG GUM PO PRN (09:45)
[2020-06-18] MEDS: NICOTINE POLACRILEX 2 MG GUM PO PRN ×2 (12:04→13:52)
[2020-06-18 18:00] VITALS: BP 94/62
[2020-06-18] MEDS: MIRTAZAPINE 15 MG TAB PO SCH (21:27)
[2020-06-18] MEDS: AMITRIPTYLINE 25 MG TAB PO SCH (21:27)
[2020-06-18] MEDS: PRAZOSIN 1 MG CAP PO SCH (21:28)
[2020-06-18] MEDS: PALIPERIDONE 3 MG ER TAB (INVEGA) PO SCH (21:28)
[2020-06-19 06:32] VITALS: BP 118/57
[2020-06-19] MEDS: oxyBUTYnin 5 MG TAB PO SCH ×2 (08:41→20:56)
[2020-06-19] MEDS: LEVOTHYROXINE 50MCG TABLET (0.05MG) PO SCH (08:41)
[2020-06-19] MEDS: BUPRENORPHINE/NALOXONE 8-2MG SUBLINGUAL TABLET(SUBOXONE) SL SCH ×2 (08:41→16:55)
[2020-06-19] MEDS: busPIRone 5 MG TAB PO SCH ×3 (08:41→20:56)
[2020-06-19] MEDS: GABAPENTIN 400 MG CAP PO SCH ×4 (08:41→20:56)
[2020-06-19] MEDS: haloperidoL 5 MG TAB PO SCH ×2 (08:41→20:56)
[2020-06-19] MEDS: TOPIRAMATE (TopAMAX) 100 MG TAB PO SCH ×2 (08:42→20:56)
[2020-06-19] MEDS: SERTRALINE 100 MG TAB PO SCH (08:43)
[2020-06-19] MEDS: TOPIRAMATE (TopAMAX) 25 MG TAB PO SCH ×2 (08:43→20:56)
[2020-06-19] MEDS: NICOTINE POLACRILEX 2 MG GUM PO PRN ×2 (08:45→13:03)
[2020-06-19] MEDS: hydrOXYzine 50 MG TAB PO SCH ×3 (11:53→23:40)
--- NOTE | 2020-06-19 14:17 | MHIPNPDOC ---
[facility] Progress Note Progress Note DATE OF SERVICE: 06/19/20 HISTORY: Patient is a 34 year old Single, Unemployed, Domiciled, Female who returns to the ED with a reported overdose of Crystal Meth, Soma and Gabapentin. Patient reports that she restarted using Meth upon her last discharge from this facility last week. She is observed to be delusional and increasingly paranoid and feels as though people are trying to kill her. Pt denies SI/HI/Self Inj. Pt reports that she has been hearing and seeing different things however, will not elaborate on what. Pt is very fixated on thinking that there is something in her stomach and Pt continuously asks for an x-ray. VITAL SIGNS: See below. NEW TEST RESULTS: CURRENT MEDICATIONS: See below. MENTAL STATUS EXAMINATION: Patient is a 34 year old Single, Unemployed, Domiciled, Female who returns to the ED with a reported overdose of Crystal Meth, Soma and Gabapentin. She is disheveled, has fair hygiene and grooming, fleeting eye contact, no psychomotor agitation or retardation Speech: Is fluid, low rate, tone and volume, at times impoverished Language skills are intact Thought processes including: linear and goal oriented Thought content: reports depression and anxiety, denies suicidal ideation. Abstract reasoning, and computation: fair Description of associations: denies, none observed Description of abnormal or psychotic thoughts: denies, none observed. Judgment: fair Insight: fair Orientation: alert and oriented to person, place, time and situation Recent and remote memory: intact Attention span and concentration: good Language: expansive Fund of knowledge: below average Mood: reports mild depression and anxiety Affect: constricted DIAGNOSES: Methamphetamine Induced Psychosis Opioid Use Disorder Tobacco Use Disorder Cannabis Use Disorder ASSESSMENT: Patient observed to be flat affected, moderate med-seeking behaviors requesting anxiolytics. Ordered Hydroxyzine 50 mg every 6 hours PRN for anxiety. Patient is reporting that she is not getting good treatment with this provider. I reinforced with her that she needs to address her substance use rather than believing that her psychiatric symptoms are the reasons for her admission. Reinforced with patient that her continued drug use cannot be dismissed and making mental health providers be responsible for fixing her issues without the benefit of meaningful rehab treatment and dedication to abstinence will result in rehospitalizations. Patient verbalized that she wants help but she also reported that she is not honest at [facility]. I strongly urged patient to return to [facility] with honesty and meaningful desire to be in a rehab treatment to become sober. she verbalized understanding and states that this is her desire. MANAGEMENT PLAN: Continue medication as ordered, patient will discharged when she feels she is stable. TIME SPENT: 25 minutes. Vital Signs Vital Signs Date Time Temp Pulse Resp B/P (MAP) Pulse Ox O2 Delivery O2 Flow Rate FiO2 06/19/20 06:32 98.0 67 16 118/57 (77) Room Air 06/18/20 06:41 96 Current Medications Current Medications Medications (Trade) Dose Ordered Sig/René Route PRN Reason Start Time Stop Time Status Last Admin Dose Admin Acetaminophen (Tylenol Tab) 650 mg Q6HP PRN PO HEADACHE or DISCOMFORT 06/16/20 22:15 06/18/20 12:03 Al Hydrox/Mg Hydrox/Simethicone (Mylanta) 30 ml Q4HP PRN PO HEARTBURN/INDIGESTION 06/16/20 22:15 Amitriptyline HCl (Elavil) 25 mg QHS PO 06/16/20 21:00 06/18/20 21:27 Buprenorphine/ Naloxone (Suboxone 8/2mg) 1 tab BID@0900,1600 SL 06/17/20 16:00 06/19/20 08:41 Buspirone HCl (Buspar) 15 mg TID PO 06/16/20 21:00 06/19/20 08:41 Docusate Sodium (Colace) 100 mg TID PRN PO CONSTIPATION 06/16/20 22:15 Gabapentin (Neurontin) 400 mg QID PO 06/16/20 21:00 06/19/20 13:02 Haloperidol (Haldol) 5 mg BID PO 06/19/20 09:00 06/19/20 08:41 Home Med (Med Rec Complete!) ASDIRECTED XX 06/16/20 21:00 06/16/20 20:56 DC Hydroxyzine HCl (Atarax) 50 mg Q6H PO 06/19/20 12:00 06/19/20 11:53 Levothyroxine Sodium (Synthroid) 50 mcg DAILY PO 06/17/20 09:00 06/19/20 08:41 Magnesium Hydroxide (Milk Of Magnesia) 30 ml DAILYPRN PRN PO CONSTIPATION 06/16/20 22:15 Mirtazapine (Remeron) 30 mg QHS PO 06/16/20 21:00 06/18/20 21:27 Nicotine (Nicoderm Cq 21mg) 1 patch DAILYPRN PRN TD NICOTINE WITHDRAWAL 06/18/20 09:30 06/18/20 09:33 DC Nicotine (Nicorette) 2 mg Q2HP PRN PO SMOKING CESSATION 06/18/20 09:45 06/18/20 11:49 DC 06/18/20 09:48 Nicotine (Nicorette) 2 mg Q4HP PRN PO SMOKING CESSATION 06/18/20 12:00 06/19/20 13:03 Olanzapine (ZyPREXA ZYDIS) 5 mg Q4HP PRN PO AGITATION 06/16/20 22:15 06/18/20 09:27 DC 06/18/20 08:48 Oxybutynin Chloride (Ditropan) 5 mg BID PO 06/16/20 21:00 06/19/20 08:41 Paliperidone (Invega) 3 mg QHS PO 06/16/20 21:00 06/18/20 21:28 Prazosin HCl (Minipress) 2 mg QHS PO 06/16/20 21:00 06/18/20 21:28 Sertraline HCl (Zoloft) 100 mg DAILY PO 06/17/20 09:00 06/19/20 08:43 Topiramate (TopAMAX) 50 mg BID PO 06/16/20 21:00 06/19/20 08:43 Topiramate (TopAMAX) 100 mg BID PO 06/16/20 21:00 06/19/20 08:42 Trazodone HCl (Desyrel) 50 mg QHSP PRN PO INSOMNIA 06/16/20 22:15 Allergies Coded Allergies: No Known Allergies (Verified , 06/02/20) POOJA HARO NP Jun 19, 2020 14:17
[2020-06-19 16:31] VITALS: BP 117/74
[2020-06-19] MEDS: MIRTAZAPINE 15 MG TAB PO SCH (20:56)
[2020-06-19] MEDS: AMITRIPTYLINE 25 MG TAB PO SCH (20:56)
[2020-06-19] MEDS: PALIPERIDONE 3 MG ER TAB (INVEGA) PO SCH (20:56)
[2020-06-19] MEDS: PRAZOSIN 1 MG CAP PO SCH (20:57)
[2020-06-20] MEDS: hydrOXYzine 50 MG TAB PO SCH ×4 (05:53→23:28)
[2020-06-20 06:35] VITALS: BP 117/58
[2020-06-20] MEDS: LEVOTHYROXINE 50MCG TABLET (0.05MG) PO SCH (09:55)
[2020-06-20] MEDS: busPIRone 5 MG TAB PO SCH ×3 (09:55→22:08)
[2020-06-20] MEDS: haloperidoL 5 MG TAB PO SCH ×2 (09:55→22:09)
[2020-06-20] MEDS: GABAPENTIN 400 MG CAP PO SCH ×4 (09:55→22:09)
[2020-06-20] MEDS: oxyBUTYnin 5 MG TAB PO SCH ×2 (09:55→22:08)
[2020-06-20] MEDS: SERTRALINE 100 MG TAB PO SCH (09:55)
[2020-06-20] MEDS: BUPRENORPHINE/NALOXONE 8-2MG SUBLINGUAL TABLET(SUBOXONE) SL SCH ×2 (09:56→16:00)
[2020-06-20] MEDS: TOPIRAMATE (TopAMAX) 25 MG TAB PO SCH ×2 (09:56→22:10)
[2020-06-20] MEDS: TOPIRAMATE (TopAMAX) 100 MG TAB PO SCH ×2 (09:56→22:10)
[2020-06-20] MEDS: NICOTINE POLACRILEX 2 MG GUM PO PRN (10:31)
--- NOTE | 2020-06-20 10:47 | MHIPNPDOC ---
[facility] Progress Note Progress Note DATE OF SERVICE: 06/20/20 HISTORY: Patient is a 34 year old Single, Unemployed, Domiciled, Female who returns to the ED with a reported overdose of Crystal Meth, Soma and Gabapentin. Patient reports that she restarted using Meth upon her last discharge from this facility last week. She is observed to be delusional and increasingly paranoid and feels as though people are trying to kill her. Pt denies SI/HI/Self Inj. Pt reports that she has been hearing and seeing different things however, will not elaborate on what. Pt is very fixated on thinking that there is something in her stomach and Pt continuously asks for an x-ray. VITAL SIGNS: See below. NEW TEST RESULTS: CURRENT MEDICATIONS: See below. MENTAL STATUS EXAMINATION: Patient is a 34 year old Single, Unemployed, Domiciled, Female who returns to the ED with a reported overdose of Crystal Meth, Soma and Gabapentin. She is disheveled, has fair hygiene and grooming, fleeting eye contact, no psychomotor agitation or retardation Speech: Is fluid, low rate, tone and volume, at times impoverished Language skills are intact Thought processes including: linear and goal oriented Thought content: reports depression and anxiety, denies suicidal ideation. Abstract reasoning, and computation: fair Description of associations: has au ditory hallucinations, she is not observed to be responding Description of abnormal or psychotic thoughts: complains of auditory hallucinations. Judgment: fair Insight: fair Orientation: alert and oriented to person, place, time and situation Recent and remote memory: intact Attention span and concentration: good Language: expansive Fund of knowledge: below average Mood: reports moderate depression and high anxiety Affect: constricted DIAGNOSES: Methamphetamine Induced Psychosis Opioid Use Disorder Tobacco Use Disorder Cannabis Use Disorder ASSESSMENT: Patient observed to be flat affected, moderate med-seeking behaviors requesting anxiolytics. Patient is reporting depression 5/10 and anxiety 8/10 with auditory hallucinations. She states that she is attending groups. Appears to be more withdrawn and isolative today in the session. She states that she wants to be home for Thanksgiving but does not feel safe for discharge today. She is not observed to be psychotic, manic, obsessional or behavioral. Patient is quiet but cooperative on the unit. She has been social with peers on the unit. No requests or complaints today. at 1249 patient approached this provider and states "Can you switch me back to all my meds before I knew everything? I want the meds to what it was before." Reinforced with patient that med changes without good indications to do so, can be and possibly be both dangerous and futile. Patient had had daily requests for medications changes. MANAGEMENT PLAN: Continue medication as ordered, patient will discharged when she feels she is stable. TIME SPENT: 25 minutes. Vital Signs Vital Signs Date Time Temp Pulse Resp B/P (MAP) Pulse Ox O2 Delivery O2 Flow Rate FiO2 06/20/20 06:35 97.4 65 16 117/58 (77) Room Air 06/18/20 06:41 96 Current Medications Current Medications Medications (Trade) Dose Ordered Sig/René Route PRN Reason Start Time Stop Time Status Last Admin Dose Admin Acetaminophen (Tylenol Tab) 650 mg Q6HP PRN PO HEADACHE or DISCOMFORT 06/16/20 22:15 06/18/20 12:03 Al Hydrox/Mg Hydrox/Simethicone (Mylanta) 30 ml Q4HP PRN PO HEARTBURN/INDIGESTION 06/16/20 22:15 Amitriptyline HCl (Elavil) 25 mg QHS PO 06/16/20 21:00 06/19/20 20:56 Buprenorphine/ Naloxone (Suboxone 8/2mg) 1 tab BID@0900,1600 SL 06/17/20 16:00 06/20/20 09:56 Buspirone HCl (Buspar) 15 mg TID PO 06/16/20 21:00 06/20/20 09:55 Docusate Sodium (Colace) 100 mg TID PRN PO CONSTIPATION 06/16/20 22:15 Gabapentin (Neurontin) 400 mg QID PO 06/16/20 21:00 06/20/20 09:55 Haloperidol (Haldol) 5 mg BID PO 06/19/20 09:00 06/20/20 09:55 Home Med (Med Rec Complete!) ASDIRECTED XX 06/16/20 21:00 06/16/20 20:56 DC Hydroxyzine HCl (Atarax) 50 mg Q6H PO 06/19/20 12:00 06/20/20 05:53 Levothyroxine Sodium (Synthroid) 50 mcg DAILY PO 06/17/20 09:00 06/20/20 09:55 Magnesium Hydroxide (Milk Of Magnesia) 30 ml DAILYPRN PRN PO CONSTIPATION 06/16/20 22:15 Mirtazapine (Remeron) 30 mg QHS PO 06/16/20 21:00 06/19/20 20:56 Nicotine (Nicoderm Cq 21mg) 1 patch DAILYPRN PRN TD NICOTINE WITHDRAWAL 06/18/20 09:30 06/18/20 09:33 DC Nicotine (Nicorette) 2 mg Q2HP PRN PO SMOKING CESSATION 06/18/20 09:45 06/18/20 11:49 DC 06/18/20 09:48 Nicotine (Nicorette) 2 mg Q4HP PRN PO SMOKING CESSATION 06/18/20 12:00 06/20/20 10:31 Olanzapine (ZyPREXA ZYDIS) 5 mg Q4HP PRN PO AGITATION 06/16/20 22:15 06/18/20 09:27 DC 06/18/20 08:48 Oxybutynin Chloride (Ditropan) 5 mg BID PO 06/16/20 21:00 06/20/20 09:55 Paliperidone (Invega) 3 mg QHS PO 06/16/20 21:00 06/19/20 20:56 Prazosin HCl (Minipress) 2 mg QHS PO 06/16/20 21:00 06/19/20 20:57 Sertraline HCl (Zoloft) 100 mg DAILY PO 06/17/20 09:00 06/20/20 09:55 Topiramate (TopAMAX) 50 mg BID PO 06/16/20 21:00 06/20/20 09:56 Topiramate (TopAMAX) 100 mg BID PO 06/16/20 21:00 06/20/20 09:56 Trazodone HCl (Desyrel) 50 mg QHSP PRN PO INSOMNIA 06/16/20 22:15 06/19/20 20:56 Allergies Coded Allergies: No Known Allergies (Verified , 06/02/20) POOJA HARO NP Jun 20, 2020 10:47
[2020-06-20] MEDS: AMITRIPTYLINE 25 MG TAB PO SCH (22:09)
[2020-06-20] MEDS: PALIPERIDONE 3 MG ER TAB (INVEGA) PO SCH (22:09)
[2020-06-20] MEDS: PRAZOSIN 1 MG CAP PO SCH (22:09)
[2020-06-20] MEDS: MIRTAZAPINE 15 MG TAB PO SCH (22:10)
[2020-06-21] MEDS: NICOTINE POLACRILEX 2 MG GUM PO PRN ×3 (05:33→17:03)
[2020-06-21] MEDS: hydrOXYzine 50 MG TAB PO SCH ×4 (05:33→23:03)
[2020-06-21 06:30] VITALS: BP 108/58
[2020-06-21] MEDS: oxyBUTYnin 5 MG TAB PO SCH ×2 (08:02→20:30)
[2020-06-21] MEDS: BUPRENORPHINE/NALOXONE 8-2MG SUBLINGUAL TABLET(SUBOXONE) SL SCH ×2 (08:02→16:38)
[2020-06-21] MEDS: haloperidoL 5 MG TAB PO SCH ×2 (08:02→20:30)
[2020-06-21] MEDS: TOPIRAMATE (TopAMAX) 25 MG TAB PO SCH ×2 (08:02→20:30)
[2020-06-21] MEDS: LEVOTHYROXINE 50MCG TABLET (0.05MG) PO SCH (08:02)
[2020-06-21] MEDS: busPIRone 5 MG TAB PO SCH ×3 (08:02→20:30)
[2020-06-21] MEDS: TOPIRAMATE (TopAMAX) 100 MG TAB PO SCH ×2 (08:02→20:30)
[2020-06-21] MEDS: SERTRALINE 100 MG TAB PO SCH (08:03)
[2020-06-21] MEDS: GABAPENTIN 400 MG CAP PO SCH ×4 (08:03→20:30)
[2020-06-21 16:00] VITALS: BP 115/65
[2020-06-21] MEDS: AMITRIPTYLINE 25 MG TAB PO SCH (20:30)
[2020-06-21] MEDS: PALIPERIDONE 3 MG ER TAB (INVEGA) PO SCH (20:30)
[2020-06-21] MEDS: MIRTAZAPINE 15 MG TAB PO SCH (20:30)
[2020-06-21] MEDS: PRAZOSIN 1 MG CAP PO SCH (20:32)
[2020-06-22] MEDS: hydrOXYzine 50 MG TAB PO SCH ×4 (06:10→22:35)
[2020-06-22] MEDS: NICOTINE POLACRILEX 2 MG GUM PO PRN ×4 (06:45→16:09)
[2020-06-22 06:50] VITALS: BP 110/69
[2020-06-22] MEDS: LEVOTHYROXINE 50MCG TABLET (0.05MG) PO SCH (08:07)
[2020-06-22] MEDS: TOPIRAMATE (TopAMAX) 100 MG TAB PO SCH ×2 (08:08→22:35)
[2020-06-22] MEDS: haloperidoL 5 MG TAB PO SCH ×2 (08:08→20:15)
[2020-06-22] MEDS: TOPIRAMATE (TopAMAX) 25 MG TAB PO SCH ×2 (08:08→22:36)
[2020-06-22] MEDS: oxyBUTYnin 5 MG TAB PO SCH ×2 (08:09→20:13)
[2020-06-22] MEDS: SERTRALINE 100 MG TAB PO SCH (08:09)
[2020-06-22] MEDS: busPIRone 5 MG TAB PO SCH ×3 (08:09→20:14)
[2020-06-22] MEDS: GABAPENTIN 400 MG CAP PO SCH ×4 (08:09→20:15)
[2020-06-22] MEDS: BUPRENORPHINE/NALOXONE 8-2MG SUBLINGUAL TABLET(SUBOXONE) SL SCH ×2 (08:11→15:54)
[2020-06-22] MEDS: BENZTROPINE 1 MG TAB PO PRN (13:01)
[2020-06-22 18:55] VITALS: BP 110/62
[2020-06-22] MEDS: MIRTAZAPINE 15 MG TAB PO SCH (20:14)
[2020-06-22] MEDS: PRAZOSIN 1 MG CAP PO SCH (20:14)
[2020-06-22] MEDS: AMITRIPTYLINE 25 MG TAB PO SCH (20:14)
[2020-06-22] MEDS: PALIPERIDONE 3 MG ER TAB (INVEGA) PO SCH (20:15)
[2020-06-23] MEDS: NICOTINE POLACRILEX 2 MG GUM PO PRN ×3 (05:24→14:36)
[2020-06-23] MEDS: hydrOXYzine 50 MG TAB PO SCH ×4 (06:11→22:11)
[2020-06-23 06:28] VITALS: BP 101/58
[2020-06-23] MEDS: busPIRone 5 MG TAB PO SCH ×3 (08:07→22:12)
[2020-06-23] MEDS: TOPIRAMATE (TopAMAX) 25 MG TAB PO SCH ×2 (08:07→22:10)
[2020-06-23] MEDS: oxyBUTYnin 5 MG TAB PO SCH ×2 (08:07→22:11)
[2020-06-23] MEDS: SERTRALINE 100 MG TAB PO SCH (08:07)
[2020-06-23] MEDS: haloperidoL 5 MG TAB PO SCH ×3 (08:07→22:10)
[2020-06-23] MEDS: TOPIRAMATE (TopAMAX) 100 MG TAB PO SCH ×2 (08:07→22:10)
[2020-06-23] MEDS: GABAPENTIN 400 MG CAP PO SCH ×4 (08:07→22:11)
[2020-06-23] MEDS: BUPRENORPHINE/NALOXONE 8-2MG SUBLINGUAL TABLET(SUBOXONE) SL SCH ×2 (08:08→16:13)
[2020-06-23] MEDS: LEVOTHYROXINE 50MCG TABLET (0.05MG) PO SCH (10:01)
--- NOTE | 2020-06-23 12:49 | MHIPNPDOC ---
[facility] Progress Note Progress Note DATE OF SERVICE: 06/23/20 HISTORY: Patient is a 34 year old Single, Unemployed, Domiciled, Female who returns to the ED with a reported overdose of Crystal Meth, Soma and Gabapentin. Patient reports that she restarted using Meth upon her last discharge from this facility last week. She is observed to be delusional and increasingly paranoid and feels as though people are trying to kill her. Pt denies SI/HI/Self Inj. Pt reports that she has been hearing and seeing different things however, will not elaborate on what. Pt is very fixated on thinking that there is something in her stomach and Pt continuously asks for an x-ray. VITAL SIGNS: See below. NEW TEST RESULTS: CURRENT MEDICATIONS: See below. MENTAL STATUS EXAMINATION: Patient is a 34 year old Single, Unemployed, Domiciled, Female who returns to the ED with a reported overdose of Crystal Meth, Soma and Gabapentin. She is disheveled, has fair hygiene and grooming, fleeting downcast eye contact and dazed, observed with mild retardation Speech: Is fluid, low rate, tone and volume, at times impoverished Language skills are intact Thought processes including: linear and goal oriented Thought content: reports mild/low depression and moderate anxiety, denies suicidal ideation. Abstract reasoning, and computation: fair Description of associations: reports that she has command auditory hallucinations calling her "slut and bitch", she is not observed to be responding Description of abnormal or psychotic thoughts: complains of auditory hallucinations. Judgment: fair Insight: fair Orientation: alert and oriented to person, place, time and situation Recent and remote memory: intact Attention span and concentration: fair Language: expansive Fund of knowledge: below average Mood: reports mild depression and moderate anxiety Affect: flat DIAGNOSES: Methamphetamine Induced Psychosis Opioid Use Disorder Tobacco Use Disorder Cannabis Use Disorder ASSESSMENT: Patient observed to be flat affected and at times dazed/sedated during the interview. She is focused on her Suboxone today states that when she leaves she will not have enough before she runs out. She had complained that when she tried to get the rx last time she needed a prior authorization. Reinforced with the patient that I do not have a Suboxone waiver and that she needs to speak with her prescriber for this. Patient states that she has a few days worth, at this time she is requesting to leave on Tuesday. Patient states that she struggled over the weekend, due to auditory hallucinations calling her "bitch and slut" Patient denies suicidal/homicidal ideation, planning or intent and she denies that she will act on any command hallucinations. I feel that patient's request for discharge on Tuesday is appropriate. MANAGEMENT PLAN: Continue medication as ordered, patient will discharged when she feels she is stable. TIME SPENT: 25 minutes. Vital Signs Vital Signs Date Time Temp Pulse Resp B/P (MAP) Pulse Ox O2 Delivery O2 Flow Rate FiO2 06/23/20 06:28 97.1 75 16 101/58 (72) 97 Room Air Current Medications Current Medications Medications (Trade) Dose Ordered Sig/René Route PRN Reason Start Time Stop Time Status Last Admin Dose Admin Acetaminophen (Tylenol Tab) 650 mg Q6HP PRN PO HEADACHE or DISCOMFORT 06/16/20 22:15 06/18/20 12:03 Al Hydrox/Mg Hydrox/Simethicone (Mylanta) 30 ml Q4HP PRN PO HEARTBURN/INDIGESTION 06/16/20 22:15 Amitriptyline HCl (Elavil) 25 mg QHS PO 06/16/20 21:00 06/22/20 20:14 Benztropine Mesylate (Cogentin) 1 mg DAILYPRN PRN PO EPS 06/22/20 11:45 06/22/20 13:01 Buprenorphine/ Naloxone (Suboxone 8/2mg) 1 tab BID@0900,1600 SL 06/17/20 16:00 06/23/20 08:08 Buspirone HCl (Buspar) 15 mg TID PO 06/16/20 21:00 06/23/20 08:07 Docusate Sodium (Colace) 100 mg TID PRN PO CONSTIPATION 06/16/20 22:15 Gabapentin (Neurontin) 400 mg QID PO 06/16/20 21:00 06/23/20 12:20 Haloperidol (Haldol) 5 mg BID PO 06/19/20 09:00 06/23/20 12:28 DC 06/23/20 08:07 Haloperidol (Haldol) 5 mg TID PO 06/23/20 16:00 Home Med (Med Rec Complete!) ASDIRECTED XX 06/16/20 21:00 06/16/20 20:56 DC Hydroxyzine HCl (Atarax) 50 mg Q6H PO 06/19/20 12:00 06/23/20 12:20 Levothyroxine Sodium (Synthroid) 50 mcg DAILY PO 06/17/20 09:00 06/23/20 09:02 DC 06/22/20 08:07 Levothyroxine Sodium (Synthroid) 50 mcg DAILY@0600 PO 06/23/20 06:00 06/23/20 10:01 Magnesium Hydroxide (Milk Of Magnesia) 30 ml DAILYPRN PRN PO CONSTIPATION 06/16/20 22:15 Mirtazapine (Remeron) 30 mg QHS PO 06/16/20 21:00 06/22/20 20:14 Nicotine (Nicoderm Cq 21mg) 1 patch DAILYPRN PRN TD NICOTINE WITHDRAWAL 06/18/20 09:30 06/18/20 09:33 DC Nicotine (Nicorette) 2 mg Q2HP PRN PO SMOKING CESSATION 06/18/20 09:45 06/18/20 11:49 DC 06/18/20 09:48 Nicotine (Nicorette) 2 mg Q4HP PRN PO SMOKING CESSATION 06/18/20 12:00 06/23/20 10:01 Olanzapine (ZyPREXA ZYDIS) 5 mg Q4HP PRN PO AGITATION 06/16/20 22:15 06/18/20 09:27 DC 06/18/20 08:48 Oxybutynin Chloride (Ditropan) 5 mg BID PO 06/16/20 21:00 06/23/20 08:07 Paliperidone (Invega) 3 mg QHS PO 06/16/20 21:00 06/23/20 12:29 DC 06/22/20 20:15 Prazosin HCl (Minipress) 2 mg QHS PO 06/16/20 21:00 06/22/20 20:14 Sertraline HCl (Zoloft) 100 mg DAILY PO 06/17/20 09:00 06/23/20 08:07 Topiramate (TopAMAX) 50 mg BID PO 06/16/20 21:00 06/23/20 08:07 Topiramate (TopAMAX) 100 mg BID PO 06/16/20 21:00 06/23/20 08:07 Trazodone HCl (Desyrel) 50 mg QHSP PRN PO INSOMNIA 11/16/20 22:15 06/19/20 20:56 Allergies Coded Allergies: No Known Allergies (Verified , 06/02/20) POOJA HARO NP Jun 23, 2020 12:49
[2020-06-23 16:49] VITALS: BP 111/63
[2020-06-23] MEDS: AMITRIPTYLINE 25 MG TAB PO SCH (22:10)
[2020-06-23] MEDS: MIRTAZAPINE 15 MG TAB PO SCH (22:11)
[2020-06-23] MEDS: PRAZOSIN 1 MG CAP PO SCH (22:14)
[2020-06-24] MEDS: NICOTINE POLACRILEX 2 MG GUM PO PRN ×4 (05:20→20:14)
[2020-06-24] MEDS: hydrOXYzine 50 MG TAB PO SCH ×4 (05:21→23:48)
[2020-06-24] MEDS: LEVOTHYROXINE 50MCG TABLET (0.05MG) PO SCH (05:21)
[2020-06-24 06:06] VITALS: BP 104/57
[2020-06-24] MEDS: GABAPENTIN 400 MG CAP PO SCH ×4 (07:58→20:14)
[2020-06-24] MEDS: SERTRALINE 100 MG TAB PO SCH (07:58)
[2020-06-24] MEDS: oxyBUTYnin 5 MG TAB PO SCH ×2 (07:58→22:27)
[2020-06-24] MEDS: TOPIRAMATE (TopAMAX) 25 MG TAB PO SCH ×2 (07:58→20:12)
[2020-06-24] MEDS: TOPIRAMATE (TopAMAX) 100 MG TAB PO SCH ×2 (07:58→20:12)
[2020-06-24] MEDS: haloperidoL 5 MG TAB PO SCH (07:58)
[2020-06-24] MEDS: busPIRone 5 MG TAB PO SCH ×3 (07:58→20:14)
[2020-06-24] MEDS: BUPRENORPHINE/NALOXONE 8-2MG SUBLINGUAL TABLET(SUBOXONE) SL SCH ×2 (07:59→15:46)
[2020-06-24] MEDS: BENZTROPINE 1 MG TAB PO PRN (11:16)
[2020-06-24] MEDS ORDERED: HALO10TA20 PO (11:35)
[2020-06-24] MEDS ORDERED: BENZ-52 PO (11:35)
[2020-06-24 12:38] LABS: BASO # 0.1 10^3/uL (0.0-0.2); BASO % 1.2 % (0.0-1.0); EOS # 0.1 10^3/uL (0.0-0.5); EOS % 2.4 % (0.0-3.0); HEMATOCRIT 37.6 % (36.0-47.0); HEMOGLOBIN 12.3 g/dl (12.0-15.5); LYMPH # 2.8 10^3/uL (1.5-5.0); MEAN CORPUSCULAR HEMOGLOBIN 30.5 pg (27.0-33.0); MEAN CORPUSCULAR HGB CONC 32.7 g/dl (32.0-36.5); MEAN CORPUSCULAR VOLUME 93.3 fl (80.0-96.0); MONO # 0.5 10^3/uL (0.0-0.8); MONO % 8.8 % (0.0-5.0); NEUTROPHILS # 2.2 10^3/uL (1.5-8.5); NEUTROPHILS % 38.4 % (36.0-66.0); PLATELET COUNT, AUTOMATED 231 10^3/uL (150-450); RED BLOOD COUNT 4.03 10^6/uL (4.00-5.40); WHITE BLOOD COUNT 5.8 10^3/uL (4.0-10.0)
--- NOTE | 2020-06-24 12:38 | MHIPNPDOC ---
[facility] Progress Note Progress Note DATE OF SERVICE: 06/24/20 HISTORY: Patient is a 34 year old Single, Unemployed, Domiciled, Female who returns to the ED with a reported overdose of Crystal Meth, Soma and Gabapentin. Patient reports that she restarted using Meth upon her last discharge from this facility last week. She is observed to be delusional and increasingly paranoid and feels as though people are trying to kill her. Pt denies SI/HI/Self Inj. Pt reports that she has been hearing and seeing different things however, will not elaborate on what. VITAL SIGNS: See below. NEW TEST RESULTS: CURRENT MEDICATIONS: See below. MENTAL STATUS EXAMINATION: Patient is a 34 year old Single, Unemployed, Domiciled, Female who returns to the ED with a reported overdose of Crystal Meth, Soma and Gabapentin. She is disheveled, has fair hygiene and grooming, fleeting downcast eye contact and dazed, observed with mild retardation Speech: Is fluid, low rate, tone and volume. Language skills are intact Thought processes including: linear and goal oriented Thought content: reports mild/low depression and moderate anxiety, denies suicidal ideation. Abstract reasoning, and computation: fair Description of associations: reports that she has auditory hallucinations calling her names, she is not observed to be responding Description of abnormal or psychotic thoughts: complains of auditory hallucinations. Judgment: fair Insight: fair Orientation: alert and oriented to person, place, time and situation Recent and remote memory: intact Attention span and concentration: fair Language: expansive Fund of knowledge: below average Mood: denies depression and moderate anxiety Affect: flat/sedated/drowsy DIAGNOSES: Methamphetamine Induced Psychosis Opioid Use Disorder Tobacco Use Disorder Cannabis Use Disorder ASSESSMENT: Patient is alert and oriented, denies any depression, anxiety or suicidal ideation. She is continuing to focus on Suboxone and whether she will be able to get this from Pharmacy. She states she called [employer] to get them to do the prior authorization for the Suboxone. She states that her step-father will purchase it if she needs it. Review with patient the medications that she will be discharge on, she verbalized understanding. Patient denies that she has anything in individual therapy that she wanted to talk about. MANAGEMENT PLAN: Continue medication as ordered, orders for discharge have been entered. Most medications have been continued, as patient had a recent discharge with several refills on her medications. TIME SPENT: 15 minutes. Vital Signs Vital Signs Date Time Temp Pulse Resp B/P (MAP) Pulse Ox O2 Delivery O2 Flow Rate FiO2 06/24/20 06:06 97.8 101 14 104/57 (73) 98 Room Air Current Medications Current Medications Medications (Trade) Dose Ordered Sig/René Route PRN Reason Start Time Stop Time Status Last Admin Dose Admin Acetaminophen (Tylenol Tab) 650 mg Q6HP PRN PO HEADACHE or DISCOMFORT 06/16/20 22:15 06/18/20 12:03 Al Hydrox/Mg Hydrox/Simethicone (Mylanta) 30 ml Q4HP PRN PO HEARTBURN/INDIGESTION 06/16/20 22:15 Amitriptyline HCl (Elavil) 25 mg QHS PO 06/16/20 21:00 06/23/20 22:10 Benztropine Mesylate (Cogentin) 1 mg DAILYPRN PRN PO EPS 06/22/20 11:45 06/24/20 11:16 Buprenorphine/ Naloxone (Suboxone 8/2mg) 1 tab BID@0900,1600 SL 06/17/20 16:00 06/24/20 07:59 Buspirone HCl (Buspar) 15 mg TID PO 06/16/20 21:00 06/24/20 07:58 Docusate Sodium (Colace) 100 mg TID PRN PO CONSTIPATION 06/16/20 22:15 Gabapentin (Neurontin) 400 mg QID PO 06/16/20 21:00 06/24/20 07:58 Haloperidol (Haldol) 5 mg BID PO 06/19/20 09:00 06/23/20 12:28 DC 06/23/20 08:07 Haloperidol (Haldol) 5 mg TID PO 06/23/20 16:00 06/24/20 11:13 DC 06/24/20 07:58 Haloperidol (Haldol) 10 mg BID PO 06/24/20 21:00 Home Med (Med Rec Complete!) ASDIRECTED XX 06/16/20 21:00 06/16/20 20:56 DC Hydroxyzine HCl (Atarax) 50 mg Q6H PO 06/19/20 12:00 06/24/20 11:43 Levothyroxine Sodium (Synthroid) 50 mcg DAILY PO 06/17/20 09:00 06/23/20 09:02 DC 06/22/20 08:07 Levothyroxine Sodium (Synthroid) 50 mcg DAILY@0600 PO 06/23/20 06:00 06/24/20 05:21 Magnesium Hydroxide (Milk Of Magnesia) 30 ml DAILYPRN PRN PO CONSTIPATION 06/16/20 22:15 Mirtazapine (Remeron) 30 mg QHS PO 06/16/20 21:00 06/23/20 22:11 Nicotine (Nicoderm Cq 21mg) 1 patch DAILYPRN PRN TD NICOTINE WITHDRAWAL 06/18/20 09:30 06/18/20 09:33 DC Nicotine (Nicorette) 2 mg Q2HP PRN PO SMOKING CESSATION 06/18/20 09:45 06/18/20 11:49 DC 06/18/20 09:48 Nicotine (Nicorette) 2 mg Q4HP PRN PO SMOKING CESSATION 06/18/20 12:00 06/24/20 09:47 Olanzapine (ZyPREXA ZYDIS) 5 mg Q4HP PRN PO AGITATION 06/16/20 22:15 06/18/20 09:27 DC 06/18/20 08:48 Oxybutynin Chloride (Ditropan) 5 mg BID PO 06/16/20 21:00 06/24/20 07:58 Paliperidone (Invega) 3 mg QHS PO 06/16/20 21:00 06/23/20 12:29 DC 06/22/20 20:15 Prazosin HCl (Minipress) 2 mg QHS PO 06/16/20 21:00 06/23/20 22:14 Sertraline HCl (Zoloft) 100 mg DAILY PO 06/17/20 09:00 06/24/20 07:58 Topiramate (TopAMAX) 50 mg BID PO 06/16/20 21:00 06/24/20 07:58 Topiramate (TopAMAX) 100 mg BID PO 06/16/20 21:00 06/24/20 07:58 Trazodone HCl (Desyrel) 50 mg QHSP PRN PO INSOMNIA 06/16/20 22:15 06/19/20 20:56 Allergies Coded Allergies: No Known Allergies (Verified , 06/02/20) POOJA HARO REGISTERED NURSE HH CASE MANAGER Jun 24, 2020 11:54
[2020-06-24 13:00] LABS: ALBUMIN 3.8 GM/DL (3.2-5.2); ALT/SGPT 44 U/L (12-78); BILIRUBIN,TOTAL 0.2 MG/DL (0.2-1.0); BLOOD UREA NITROGEN 18 MG/DL (7-18); CALCIUM LEVEL 9.1 MG/DL (8.5-10.1); CARBON DIOXIDE LEVEL 24 MEQ/L (21-32); CHLORIDE LEVEL 107 MEQ/L (98-107); CREATININE FOR GFR 0.92 MG/DL (0.55-1.30); GLOMERULAR FILTRATION RATE > 60.0 (>60); GLUCOSE, FASTING 79 MG/DL (70-100); MAGNESIUM LEVEL 1.7 MG/DL (1.8-2.4); POTASSIUM SERUM 4.2 MEQ/L (3.5-5.1); SODIUM LEVEL 139 MEQ/L (136-145); TOTAL PROTEIN 7.8 GM/DL (6.4-8.2)
[2020-06-24 13:02] LABS: AMYLASE 87 U/L (25-115); HCG, SERUM QUANTITATIVE < 1.0 MIU/ML; LIPASE 217 U/L (73-393)
--- NOTE | 2020-06-24 15:41 | IPNPDOC ---
Text Note Date of Service The patient was seen on 06/24/20. NOTE Subjective: Patient is a 35-year-old female with a PMHx Schizoaffective disorder, Depression / Anxiety / Bipolar disorder who presented to [facility] for illicit drug use. He was admitted to the inpatient mental health unit for severe paranoia. Hospitalist service was consulted for medical screening evaluation on 06/17. I was called to reevaluate this patient on 06/24 because of abdominal pain. Patient was seen and examined at the bedside. Patient denies any nausea, vomiting. Reports that she hasn't had any bowel movements. Denies any chest pain, shortness breath or palpitations. Reports some abdominal pain, right above her umbilicus which does appear to have any. Objective: Vitals (See below) General: Lying in bed, appears comfortable, AAOx3 HEENT: NC, AT CVS: +S1S2 Lungs: Fair air entry b/l, no wheezing / rhonchi / rales Abdomen: Soft, ND, NT, ventral hernia - reducible - not tender on deep palpation Extremities: No evidence of edema, - Calf tenderness Assessment and plan: Reported abdominal pain - likely 2/2 abdominal ventral hernia, possibly 2/2 constipation - Patient has reported abdominal pain - Is does not reveal any tenderness, however, there is a ventral hernia is reducible - Lab work does not reveal any abnormalities. No elevation in amylase or lipase. HCG negative - Will get CT abdomen and pelvis without contrast - Patient will likely require outpatient follow-up with general surgery - Will adjust bowel regimen to scheduled dosing Female secondary history teacher was present for the duration of his history and physical examination Thank you for this consultation; hospital service will now sign off, please reconsult as needed VS,Fishbone, I+O VS, Fishbone, I+O Laboratory Tests 06/24/20 11:22 Vital Signs Date Time Temp Pulse Resp B/P (MAP) Pulse Ox O2 Delivery O2 Flow Rate FiO2 06/24/20 06:06 97.8 101 14 104/57 (73) 98 Room Air SUNG LEUNG MD Jun 24, 2020 15:41
[2020-06-24] MEDS: DOCUSATE SODIUM 100 MG CAP PO SCH ×2 (15:45→20:14)
--- NOTE | 2020-06-24 16:14 | REP ---
INDICATION: Abdominal ventral hernia COMPARISON: None TECHNIQUE: Axial noncontrast images from the lung bases to the pubic symphysis with coronal and sagittal reformations. This CT examination was performed using the following dose reduction techniques: Automated exposure control, adjustment of mA and/or kv according to the patient's size, and use of iterative reconstruction technique. FINDINGS: Lung bases are clear. Visualized heart and pericardium normal. Liver, spleen, pancreas, gallbladder, bilateral adrenal glands and kidneys are normal. The enteric system demonstrates moderate fecal stasis without obstruction or acute inflammatory process. Normal terminal ileum and appendix identified. Pelvis demonstrates normal bladder and age-appropriate uterus/adnexa. No ascites. No free air. No adenopathy. No focal inflammatory stranding. Abdominal aorta without aneurysm. Musculoskeletal structures are intact and without acute osseous abnormality. There is a small left paramidline supraumbilical fat containing hernia measuring 16 mm diameter with un underlying fascial defect of 7 mm diameter. No associated acute inflammatory stranding or fluid noted. IMPRESSION: No acute abdominopelvic pathology appreciated. Small supraumbilical fat containing hernia. <Electronically signed by Yogi Huerta > 06/24/20 [id number]
[2020-06-24 16:17] VITALS: BP 106/62
[2020-06-24 20:13] VITALS: BP 118/68
[2020-06-24] MEDS: PRAZOSIN 1 MG CAP PO SCH (20:13)
[2020-06-24] MEDS: AMITRIPTYLINE 25 MG TAB PO SCH (20:14)
[2020-06-24] MEDS: MIRTAZAPINE 15 MG TAB PO SCH (20:14)
[2020-06-24] MEDS: MIRALAX *UNIT DOSE* 17GM PACKET PO SCH (20:14)
[2020-06-25] MEDS: NICOTINE POLACRILEX 2 MG GUM PO PRN ×2 (02:18→06:18)
[2020-06-25] MEDS: hydrOXYzine 50 MG TAB PO SCH (05:15)
[2020-06-25] MEDS: LEVOTHYROXINE 50MCG TABLET (0.05MG) PO SCH (05:15)
[2020-06-25 06:27] VITALS: BP 131/73
[2020-06-25] MEDS: busPIRone 5 MG TAB PO SCH (07:52)
[2020-06-25] MEDS: SERTRALINE 100 MG TAB PO SCH (07:52)
[2020-06-25] MEDS: GABAPENTIN 400 MG CAP PO SCH (07:52)
[2020-06-25] MEDS: DOCUSATE SODIUM 100 MG CAP PO SCH (07:52)
[2020-06-25] MEDS: MIRALAX *UNIT DOSE* 17GM PACKET PO SCH (07:53)
[2020-06-25] MEDS: oxyBUTYnin 5 MG TAB PO SCH (07:53)
[2020-06-25] MEDS: TOPIRAMATE (TopAMAX) 25 MG TAB PO SCH (07:53)
[2020-06-25] MEDS: TOPIRAMATE (TopAMAX) 100 MG TAB PO SCH (07:53)
[2020-06-25] MEDS: BUPRENORPHINE/NALOXONE 8-2MG SUBLINGUAL TABLET(SUBOXONE) SL SCH (07:53)
[2020-06-25] MEDS ORDERED: OXYB5TAB10 PO (09:14)
--- NOTE | 2020-06-25 09:36 | MHDSPDOC ---
[facility] Discharge Summary Discharge Summary DATE OF ADMISSION: Jun 16, 2020 at 22:04 DATE OF DISCHARGE: June 25, 2020 at 0925 DISCHARGE DIAGNOSES: Unspecified Schizophrenia and Other Psychotic Disorders Methamphetamine Use Disorder Opioid Use Disorder Tobacco Use Disorder Cannabis Use Disorder REASON FOR ADMISSION: Patient is a 34 year old Single, Unemployed, Domiciled, Female who returns to the ED with a reported overdose of Crystal Meth, Soma and Gabapentin. Patient reports that she restarted using Meth upon her last discharge from this facility last week. She is observed to be delusional and increasingly paranoid and feels as though people are trying to kill her. Pt denies SI/HI/Self Inj. Pt reports that she has been hearing and seeing different things however, will not elaborate on what. CONSULTANTS INVOLVED: See Medical H + P by Hospitalist TREATMENT AND PROGRESS ON THE UNIT: Patient was admitted to the [facility] on a legal status he was afforded the following treatment modalities: 1) Individual Therapy 2) Group Therapy 3) Medication Management 4) Milieu Therapy HOSPITAL COURSE: Patient was readmitted to [facility] on a and subsequently in this hospitalization she was converted to a Voluntary Legal Status. She had previously been on a long acting injectable. This was not restarted on this occasion as she reported that she returned to using Methamphetamines within the week of her discharge. During the hospitalization, much of her individual therapy centered on her psychotic symptoms being exacerbated by her drug use. She acknowledges this. Due to her history of non-compliance, I did not restart her on Paliperidone but started her on Haldol because she continued to complain about auditory hallucinations. She reported that her auditory hallucinations were decreased but not completely so. Earlier this week, she requested to be discharged but delayed because she was trying to get her Suboxone authorized. This provider is not waivered for Suboxone prescriptions and she understands that she needs to make contact with the current prescriber fo this. Patient is future oriented and today is still wanting to go home. She has attended groups. has been social with peers, visible and pleasant in the milieu and cooperative in individual therapy. DISCHARGE ASSESSMENT: In today's session, patient is alert and oriented, less drowsy and sedated. She states that she is anxious to return home. She denied suicidal/homicidal ideation, planning or intent. She does report low auditory hallucinations but they are not command in nature. Patient denies depression, she not exhibiting abnormal psychotic symptom, and is not manic/ob sessive/delusional. at this time, patient has a normal mental status, does not pose a danger to herself or others and meets criteria for discharge. She is returning to her step-father's home, and he is welcoming her back. MENTAL STATUS EXAMINATION ON DISCHARGE: Patient is a 34 year old Single, Unemployed, Domiciled, Female who returns to the ED with a reported overdose of Crystal Meth, Soma and Gabapentin. She is disheveled, has fair hygiene and grooming, fleeting downcast eye contact and dazed, observed with mild retardation Speech: Is fluid, low rate, tone and volume. Language skills are intact Thought processes including: linear and goal oriented Thought content: reports mild/low depression and moderate anxiety, denies suicidal ideation. Abstract reasoning, and computation: fair Description of associations: reports that she has auditory hallucinations calling her names, she is not observed to be responding Description of abnormal or psychotic thoughts: complains of auditory hallucinations. Judgment: fair Insight: fair Orientation: alert and oriented to person, place, time and situation Recent and remote memory: intact Attention span and concentration: fair Language: expansive Fund of knowledge: below average Mood: denies depression and moderate anxiety Affect: flat/sedated/drowsy MEDICATIONS ON DISCHARGE: Patient was continued on all her home medications. She was discontinued off Paliperidone and Invega Sustenna. Patient historically does not follow up to get her subsequent Long acting injectables in the community before she returns to the hospital. She is currently on Haldol 10 mg twice daily for psychosis. PLAN/FOLLOWUP ARRANGEMENTS: Patient is returning to [facility], I have encouraged her to seek intensive services for her addictions. She verbalized understanding and states that she is trying to live a sober life The amount of time spent in the coordination of care for this patient was approximately 35 minutes. Vital Signs/I&Os Vital Signs Date Time Temp Pulse Resp B/P (MAP) Pulse Ox O2 Delivery O2 Flow Rate FiO2 06/25/20 06:27 97.6 82 18 131/73 (92) 98 Room Air Laboratory Data Labs 24H Laboratory Tests 2 06/24/20 11:22: Immature Granulocyte % (Auto) 0.2, Neutrophils (%) (Auto) 38.4, Lymphocytes (%) (Auto) 49.0H, Monocytes (%) (Auto) 8.8H, Eosinophils (%) (Auto) 2.4, Basophils (%) (Auto) 1.2H, Neutrophils # (Auto) 2.2, Lymphocytes # (Auto) 2.8, Monocytes # (Auto) 0.5, Eosinophils # (Auto) 0.1, Basophils # (Auto) 0.1, Nucleated Red Blood Cells % (auto) 0.0, Anion Gap 8, Glomerular Filtration Rate > 60.0, Lactic Acid Level 1.5, Calcium Level 9.1, Magnesium Level 1.7L, Total Bilirubin 0.2, Aspartate Amino Transf (AST/SGOT) 33, Alanine Aminotransferase (ALT/SGPT) 44, Alkaline Phosphatase 108, Total Protein 7.8, Albumin 3.8, Albumin/Globulin Ratio 1.0L 06/24/20 11:23: Amylase Level 87, Lipase 217, Human Chorionic Gonadotropin, Quant < 1.0 CBC/BMP Laboratory Tests 06/24/20 11:22 Medications Scheduled Amitriptyline HCl (Amitriptyline HCl) 25 Mg Tablet, 25 MG PO QHS, (Reported) Buprenorphine HCl/Naloxone HCl (Suboxone 8 mg-2 mg Sl Film) 1 Each Film, 1 FILM SL BID, (Reported) Buspirone HCl (Buspirone HCl) 15 Mg Tablet, 15 MG PO TID, (Reported) Gabapentin (Gabapentin) 400 Mg Capsule, 400 MG PO QID, (Reported) Haloperidol (Haloperidol) 10 Mg Tablet, 10 MG PO BID for Hallucinations, #14 Levothyroxine Sodium (Levothyroxine Sodium) 50 Mcg Tablet, 50 MCG PO DAILY, (Reported) Mirtazapine (Remeron) 30 Mg Tablet, 30 MG PO QHS, (Reported) Oxybutynin Chloride (Oxybutynin Chloride) 5 Mg Tablet, 5 MG PO BID, (Reported) Oxybutynin Chloride (Oxybutynin Chloride) 5 Mg Tablet, 5 MG PO BID for urinary discomfort, #14 Prazosin Hcl (Prazosin HCl) 2 Mg Capsule, 2 MG PO QHS, (Reported) Sertraline HCl (Sertraline HCl) 100 Mg Tablet, 100 MG PO DAILY, (Reported) Topiramate (Topiramate) 50 Mg Tablet, 50 MG PO BID, (Reported) Topiramate (Topiramate) 100 Mg Tablet, 100 MG PO BID, (Reported) Scheduled PRN Benztropine Mesylate (Benztropine Mesylate) 1 Mg Tablet, 1 MG PO DAILYPRN PRN for EPS, #7 Docusate Sodium (Dok) 100 Mg Capsule, 100 MG PO TID PRN for CONSTIPATION, (Reported) Allergies Coded Allergies: No Known Allergies (Verified , 06/02/20) POOJA HARO NP Jun 25, 2020 09:36
== END 2020-06-25 10:30 | disposition home or self-care (01) | DRG 750 ==
LOC: M ED 11:23 → M ED INP 22:04 → M PSY 06-17 01:07
PROVIDERS: ADMIT Psychiatry & Neurology Psychiatry; ATTEND Psychiatry & Neurology Psychiatry
DX: F20.9 Schizophrenia, unspecified (principal); F17.200 Nicotine dependence, unspecified, uncomplicated; F12.10 Cannabis abuse, uncomplicated; T43.621A Poisoning by amphetamines, accidental (unintentional), initial encounter; F15.10 Other stimulant abuse, uncomplicated; Z81.8 Family history of other mental and behavioral disorders; F11.10 Opioid abuse, uncomplicated; Z79.899 Other long term (current) drug therapy

== ENCOUNTER 2020-10-23 00:58 | Emergency (ER) | payer MEDICAID ==
[~2020-10-23] VITALS: Ht 154.9 cm; Wt 54.5 kg
[~2020-10-23 00:58] MED LIST changes: -AMIT10TA PO; +AMIT10TA7 PO; -AMIT25TA PO; +AMIT25TA17 PO; +BENZ-52 PO; +BUPR150T12 PO; -BUPR150T3 PO; +GABA-282 PO; -GABA-843 PO; +HALO10TA20 PO; -MAG400TA PO; +MAGN400T35 PO; +MIRT-60 PO; +MIRT-62 PO; +PRAZ1CAP; +QUET50TA3; +QUET50TA3 PO; -QUET5TAB; -QUET5TAB PO; -REME15TA PO; +RISP-8 PO; -RISP1TAB3 PO
[2020-10-23] MEDS ORDERED: NS 1,000 ML IV ONE ×2 (02:15→07:15)
[2020-10-23 02:55] LABS: BASO % 0.7 % (0.0-1.0); EOS # 0.1 10^3/uL (0.0-0.5); EOS % 1.2 % (0.0-3.0); HEMATOCRIT 36.3 % (36.0-47.0); HEMOGLOBIN 11.7 g/dl (12.0-15.5); LYMPH # 1.1 10^3/uL (1.5-5.0); LYMPH % 26.7 % (24.0-44.0); MEAN CORPUSCULAR HEMOGLOBIN 30.2 pg (27.0-33.0); MEAN CORPUSCULAR HGB CONC 32.2 g/dl (32.0-36.5); MEAN CORPUSCULAR VOLUME 93.8 fl (80.0-96.0); MONO # 0.3 10^3/uL (0.0-0.8); MONO % 7.4 % (2.0-8.0); NEUTROPHILS # 2.7 10^3/uL (1.5-8.5); NEUTROPHILS % 63.5 % (36.0-66.0); PLATELET COUNT, AUTOMATED 197 10^3/uL (150-450); RED BLOOD COUNT 3.87 10^6/uL (4.00-5.40); WHITE BLOOD COUNT 4.2 10^3/uL (4.0-10.0)
[2020-10-23 03:20] LABS: HCG, SERUM QUALITATIVE NEGATIVE (NEGATIVE)
[2020-10-23 03:33] LABS: BLOOD UREA NITROGEN 7 MG/DL (7-18); CALCIUM LEVEL 8.7 MG/DL (8.5-10.1); CARBON DIOXIDE LEVEL 28 MEQ/L (21-32); CHLORIDE LEVEL 108 MEQ/L (98-107); CPK CREATINE PHOSPHOKINASE 155 U/L (26-192); CREATININE FOR GFR 0.58 MG/DL (0.55-1.30); ETHYL ALCOHOL (ETHANOL) < 0.003 % (0.000-0.010); GLOMERULAR FILTRATION RATE > 60.0 (>60); GLUCOSE, FASTING 123 MG/DL (70-100); MB/CK RELATIVE INDEX 1.94 (< OR =4); POTASSIUM SERUM 3.7 MEQ/L (3.5-5.1); SODIUM LEVEL 140 MEQ/L (136-145); THYROID STIMULATING HORMONE 0.478 uIU/ML (0.358-3.740); TROPONIN I < 0.02 NG/ML (< 0.10)
[2020-10-23 09:27] LABS: AMPHETAMINES LEVEL URINE NEGATIVE (NEGATIVE); BARBITURATES URINE NEGATIVE (NEGATIVE); BENZODIAZEPINES URINE NEGATIVE (NEGATIVE); CANNABINOIDS URINE POSITIVE (NEGATIVE); COCAINE METABOLITE URINE NEGATIVE (NEGATIVE); METHADONE URINE NEGATIVE (NEGATIVE); OPIATES URINE POSITIVE (NEGATIVE); PHENCYCLIDINE URINE NEGATIVE (NEGATIVE)
[2020-10-23 10:30] VITALS: BP 129/77
--- NOTE | 2020-10-24 01:33 | ECGEPIP ---
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
== END 2020-10-23 10:44 | disposition home or self-care (01) ==
LOC: M ED 00:58
DX: F15.120 Other stimulant abuse with intoxication, uncomplicated (principal); F17.200 Nicotine dependence, unspecified, uncomplicated; Z79.899 Other long term (current) drug therapy

== ENCOUNTER 2020-12-01 00:51 | Inpatient (IN) | payer MEDICAID ==
[~2020-12-01] VITALS: Ht 154.9 cm; Wt 54.5 kg
[2020-12-01 01:39] LABS: HEMATOCRIT 35.9 % (36.0-47.0); HEMOGLOBIN 11.8 g/dl (12.0-15.5); MEAN CORPUSCULAR HEMOGLOBIN 29.5 pg (27.0-33.0); MEAN CORPUSCULAR HGB CONC 32.9 g/dl (32.0-36.5); MEAN CORPUSCULAR VOLUME 89.8 fl (80.0-96.0); PLATELET COUNT, AUTOMATED 197 10^3/uL (150-450); WHITE BLOOD COUNT 5.3 10^3/uL (4.0-10.0)
[2020-12-01 02:10] LABS: AMPHETAMINES LEVEL URINE POSITIVE (NEGATIVE); BARBITURATES URINE NEGATIVE (NEGATIVE); BENZODIAZEPINES URINE NEGATIVE (NEGATIVE); CANNABINOIDS URINE POSITIVE (NEGATIVE); COCAINE METABOLITE URINE NEGATIVE (NEGATIVE); METHADONE URINE NEGATIVE (NEGATIVE); OPIATES URINE NEGATIVE (NEGATIVE); PHENCYCLIDINE URINE NEGATIVE (NEGATIVE)
[2020-12-01 02:16] LABS: ACETAMINOPHEN LEVEL < 2.0 UG/ML (10.0-30.0); ALBUMIN 3.6 GM/DL (3.2-5.2); ALT/SGPT 41 U/L (12-78); BILIRUBIN,DIRECT 0.1 MG/DL (0.0-0.2); BILIRUBIN,TOTAL 0.3 MG/DL (0.2-1.0); BLOOD UREA NITROGEN 8 MG/DL (7-18); CALCIUM LEVEL 9.5 MG/DL (8.5-10.1); CARBON DIOXIDE LEVEL 26 MEQ/L (21-32); CHLORIDE LEVEL 104 MEQ/L (98-107); CREATININE FOR GFR 0.59 MG/DL (0.55-1.30); ETHYL ALCOHOL (ETHANOL) < 0.003 % (0.000-0.010); GLOMERULAR FILTRATION RATE > 60.0 (>60); GLUCOSE, FASTING 123 MG/DL (70-100); POTASSIUM SERUM 3.5 MEQ/L (3.5-5.1); SALICYLATE LEVEL 2.7 MG/DL (5.0-30.0); SODIUM LEVEL 138 MEQ/L (136-145); TOTAL PROTEIN 7.9 GM/DL (6.4-8.2)
[2020-12-01 02:37] LABS: HCG, SERUM QUALITATIVE NEGATIVE (NEGATIVE)
[2020-12-01 03:46] LABS: RSV AMPLIFICATION NEGATIVE (NEGATIVE)
[2020-12-01] MEDS ORDERED: ACETAMINOPHEN TAB 650MG DOSE (2X325MG) PO PRN (03:55)
[2020-12-01] MEDS ORDERED: MAALOX 30 ML SUSP *UDC PO PRN (03:55)
[2020-12-01] MEDS ORDERED: MOM 30ML SUSPENSION UDC PO PRN (03:55)
[2020-12-01] MEDS ORDERED: OLAN15TA PO (04:16)
[2020-12-01] MEDS ORDERED: MIRT-60 PO (04:16)
[2020-12-01] MEDS ORDERED: BUPR1FIL3 SL (04:16)
[2020-12-01] MEDS ORDERED: GABA600T4 PO (04:16)
[2020-12-01] MEDS ORDERED: NICO4GUM41 BUC (04:16)
[2020-12-01] MEDS ORDERED: PRAZ2CAP PO (04:16)
[2020-12-01] MEDS ORDERED: med rec comment (04:17)
[2020-12-01 06:08] VITALS: BP 118/67
--- NOTE | 2020-12-01 06:22 | ECGEPIP ---
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
--- NOTE | 2020-12-01 12:39 | HPEPDOC ---
[facility] Medical History & Physical Date of Admission December 01, 2020 Date of Service: December 01, 2020 History and Physical CHIEF COMPLAINT: HISTORY OF PRESENT ILLNESS: 35 yo W with a history of schizoaffective disorder and PSUD who called 911 and activated EMS and was brought in for suicidal ideation while reporting that she "overdosed on Methamphetamine." She denied chest pain, shortness of breath, FORD, N/V/D, abdominal pain. While in the ED she had a CBC and BMP that was grossly unremarkable with mild anemia to Hgb 11.8 and tox screen was positive for amphetamines and cannabinoids. She was deemed unsafe for discharge and appropriate for [facility] admission. Medicine is consulted for medical evaluation at this time. She reports chronic constipation and requesting daily colace and milk of mag. REVIEW OF SYSTEMS: Negative except as per HPI PAST MEDICAL HISTORY: Substance abuse (methamphetamines, heroin) disorder Psych history - as per records: Schizoaffective disorder Depression Anxiety Bipolar disorder PAST SURGICAL HISTORY: C section umbilical hernia repair FAMILY HISTORY: Father: cirrhosis, , does not know age Mother: healthy, alive SOCIAL HISTORY: Smoker 1 pack per day for greater than 10 years. Lives alone and is currently unemployed. ALLERGIES: Please see below. CURRENT MEDICATIONS: Please see below. PHYSICAL EXAMINATION: VS: Please see below CONSTITUTIONAL: No acute distress, resting comfortably, AAO x 3 EYES: PERRLA, EOM intact HENT, MOUTH: Normocephalic, atraumatic, moist mucous membranes, NECK: SUPPLE, no JVD, no lymphadenopathy, no carotid bruit CV: Regular rate and rhythm, S1S2 normal, no murmurs/rubs/gallops RESPIRATORY: Clear to auscultation bilaterally, no rales/rhonchi/wheezes GI: BS positive in 4 quadrants, soft, nontender, nondistended, no rebound or g uarding, no organomegaly MUSCULOSKELETAL: Normal ROM. No cyanosis, clubbing, swelling, joint deformity, extremity edema INTEGUMENTARY: Intact, no rashes, no lesions, no erythema NEUROLOGIC: Cranial Nerves II-XII are intact, no focal deficits PSYCHIATRIC: Irritable, flat affect, AOx3 LABORATORY DATA: Please see below ASSESSMENT: 35 yo W with schizoaffective disorder who was admitted for unspec ified psychotic disorder with suicidality i/s/o methamphetamine use. PLAN: #Unspecified psychosis with suicidal ideation - Evaluation and treatment as per primary psychiatry team #Chronic constipation -daily colace -PRN milk of mag Thank you for this consult. Please reconsult as needed. Vital Signs Vital Signs Date Time Temp Pulse Resp B/P (MAP) Pulse Ox O2 Delivery O2 Flow Rate FiO2 12/01/20 06:08 97.5 91 20 118/67 (84) 98 Room Air Laboratory Data Labs 24H Laboratory Tests 2 12/01/20 01:23: Nucleated Red Blood Cells % (auto) 0.0, Anion Gap 8, Glomerular Filtration Rate > 60.0, Calcium Level 9.5, Total Bilirubin 0.3, Direct Bilirubin 0.1, Aspartate Amino Transf (AST/SGOT) 33, Alanine Aminotransferase (ALT/SGPT) 41, Alkaline Phosphatase 86, Total Protein 7.9, Albumin 3.6, Albumin/Globulin Ratio 0.8L, Thyroid Stimulating Hormone (TSH) 1.730, Human Chorionic Gonadotropin, Qual NE GATIVE, Salicylates Level 2.7L, Urine Opiates Screen NEGATIVE, Urine Methadone Screen NEGATIVE, Acetaminophen Level < 2.0L, Urine Barbiturates Screen NEGATIVE, Urine Phencyclidine Screen NEGATIVE, Urine Amphetamines Screen POSITIVEH, Urine Benzodiazepines Screen NEGATIVE, Urine Cocaine Metabolite Screen NEGATIVE, Urine Cannabinoids Screen POSITIVEH, Ethyl Alcohol Level < 0.003 12/01/20 03:02: Coronavirus (COVID-19)(PCR) NEGATIVE, Influenza Type A (RT-PCR) NEGATIVE, Influenza Type B (RT-PCR) NEGATIVE, Respiratory Syncytial Virus (PCR) NEGATIVE CBC/BMP Laboratory Tests 12/01/20 01:23 Home Medications Scheduled Buprenorphine HCl/Naloxone HCl (Buprenor-Nalox 12-3 mg Sl Film) 1 Each Film, 1 FILM SL DAILY Gabapentin (Gabapentin) 600 Mg Tablet, 600 MG PO TID Mirtazapine (Remeron) 30 Mg Tablet, 30 MG PO QHS Olanzapine (Olanzapine) 15 Mg Tablet, 15 MG PO QHS Prazosin Hcl (Prazosin HCl) 2 Mg Capsule, 2 MG PO QHS Scheduled PRN Nicotine Polacrilex (Nicotine Gum) 4 Mg Gum, 4 MG BUC QID PRN for SMOKING CESS ATION Miscellaneous Medications [med rec comment] pt unable to verify meds and last doses Allergies Coded Allergies: No Known Allergies (Verified , 06/02/20) A-FIB/CHADSVASC A-FIB History Current/History of A-Fib/PAF?: No Current PO Anticoag Therapy: No Age/Risk Factor Scoring CHADSVASC: CHADSVASC Response (Comments) Value Age Risk Factor Age < 65 years old 0 Gender Risk Factor Female 1 Hx of CHF No 0 Hx of HTN No 0 Hx of Stroke/TIA/or VTE No 0 Hx of Diabetes No 0 Hx of Vascular Disease No 0 Total 1 Treatment Treatment ordered: NONE Reason Anticoagulant not given: Not indicated/[id number] JERARDO SHOOK MD December 01, 2020 12:30
[2020-12-01] MEDS: DOCUSATE SODIUM 100MG CAPSULE PO SCH (13:19)
[2020-12-01] MEDS ORDERED: NICOTINE POLACRILEX 2 MG GUM PO PRN (13:25)
[2020-12-01] MEDS ORDERED: SUBO8MIS SL (13:47)
[2020-12-01] MEDS ORDERED: BUPRENORPHINE/NALOXONE 8-2MG SUBLINGUAL TABLET(SUBOXONE) SL SCH (14:05)
[2020-12-01] MEDS ORDERED: CEPACOL LOZENGE PO PRN (14:15)
[2020-12-01] MEDS: GABAPENTIN 300 MG CAP PO SCH ×2 (15:04→20:07)
[2020-12-01] MEDS: OLANZapine ORAL DISINTEGRATING TAB 5MG PO PRN ×2 (15:31→23:34)
--- NOTE | 2020-12-01 16:30 | MHHPEPDOC ---
General Date Of Admission: December 01, 2020 Legal Status: 9.39 Chief Complaint "I am not feeling good, I am not good" History of Present Illness HISTORY OF THE PRESENT ILLNESS: Patient is a 35 -year-old Single, Disabled, Domiciled, , female, who reports that she was having hallucinations that people are trying to kill her and that there is a "hit" on her head. She says she has had medications for 2 weeks because there have been medication changes. Reports that she uses methamphetamines occasionally and last used on Tuesday. States she is taking her Suboxone as prescribed. Wants to have her medications returned to her. PER ED REPORT: "I came to the hospital because I have something in my stomach, I think its a recording and I didn't put it there, I don't know who did and I want it out." Patient is a 34 -year-old Single, Unemployed, Domiciled, , female, who self presented to [facility] with delusional thoughts. Patient was recently discharged from [facility] in April and was admitted to [facility] door to door which she completed. She states she began using the day she was discharged. Using Heroin, Bath Salts and Methamphetamines a "few days ago." She came with complaints that there is something wrong in her stomach. She believes that she has a recording device in her stomach and that she needs to have surgery. Psychiatric Review of Systems Depression (2 or more weeks): depressed mood, anhedonia, insomnia/hypersomnia, decreased energy, difficulty concentrating Kriss (4 or more days of): irritable/elevated mood, expansive mood, still with energy, flight of ideas, distractibility, engages in risky behavior Psychosis: visual hallucination, delusions, paranoia PTSD: denies Anxiety: gen/non-specific anxiety, situational anxiety, stressor related anxiety Anxiety/ 6 months or more of: irritability Past Psychiatric History Previous Psychiatric Diagnosis: Schizoaffective Disorder, Substance Use Disorder Previous Psychiatric Admissions: Last admission was in June 16-2019 Suicide Attempts: No gestures or attempts, ideations Psychiatric Follow-up: [facility] Psychiatric medications: Has been trialed on Amitriptyline, Buspirone, Gabapentin, Haloperidol, Mirtazapine, Sertraline, Topiramate she reports she is currently on Buprenorphine, Gabapentin, Nicotine patch, Olanzapine, Prazosin and she is requesting Zoloft Past Medical History Medical Problems 2 C-Sections Umbilical Hernia Head Injury: No Seizures: No Hospitalizations: Yes Surgeries: Yes Family Medical/Psychiatric HX Medical Problems Father- Schizophrenia Mother - alive and well no medical issues Psychiatric Disorders: Yes Addiction: No Suicide Attemps/Completions: No Addiction History nicotine (1 pack per day), methamphetamines (last use on Tuesday), heroin, other (History of Bath Salts) Social History Childhood: Born in [place] lived with mother and she is an only child Abuse/Trauma: Reports trauma history, will not elaborate Current Living Situation: Lives alone in her own apartment, receives SSI. Education:. Did not graduate high school. Employment:. Not employed, receives SSI. Social Support: Her stepfather is a social support for her. Legal: Skilled Nursing 1 year for possession with intent to sell. Marital: Single, currently , 2 children, ages 14 and 19. Mental Status Examination General Appearance: unkempt, disheveled, appears stated age, hospital scubs/clothing Build: thin Demeanor: average Eye Contact: average Activity: average, anxious Behavior: cooperative Speech: clear, normal volume, reg/rate,rhythm,volume Mood: depressed, anxious Affect: full Thought Process: logical/linear Thought Content (Delusions): none reported, denies SI, HI, AVH, paranoia, delusions (Believes people are trying to kill her, there is a "contract" on her) Thought Content (Other): none reported Thought Content (Aggressive): none reported Perception (Hallucinations): none reported Perception (Other): none reported Cognition (Impairment of): none reported Cognition(Intelligence Est.): average Oriented: Awake, Alert, Oriented times three Insight: fair Judgment: Fair Psychosis: Psychotic Perceptions (believes people are after her) Diagnoses Unspecified psychotic disorder - Schizoaffective disorder Methamphetamine use disorder History of heroin use disorder History of stimulant use disorder (bath salts) Rule out methamphetamine -induced psychotic disorder A-FIB/CHADSVASC A-FIB History Current/History of A-Fib/PAF?: No Current PO Anticoag Therapy: No Age/Risk Factor Scoring CHADSVASC: CHADSVASC Response (Comments) Value Age Risk Factor Age < 65 years old 0 Gender Risk Factor Female 1 Hx of CHF No 0 Hx of HTN No 0 Hx of Stroke/TIA/or VTE No 0 Hx of Diabetes No 0 Hx of Vascular Disease No 0 Total 1 Assessment Patient is familiar to this facility with a long history of polysubstance use disorder and psychosis with paranoia and delusions. On this occasion. She reports that she was hallucinating, thinking people are trying to kill her. She reports that there is a contract on her issues and has had hospitalizations for similar psychotic symptoms. . She states she last used methamphetamine on Tuesday. . She complains of her provider changing medications and stating that she doesn't have medications for her schizoaffective disorder. She is currently prescribed olanzapine 15 mg daily patient to be started on her home medications. We'll discharge her when she is stable Initial Treatment Plan 1. Patient was admitted on a [9.39] status. 2. Complete history was obtained. 3. With patients permission, family will be contacted and database will be expanded. 4. Patients medication regimen will be reviewed and changed accordingly. 5. Patient will be provided with protected environment. 6. Patient will be treated with individual, group, and milieu therapies. 7. Patient will receive supportive psych-education. 8. Discharge planning will commence immediately. 9. Outpatient follow-up treatment will be strongly recommended. 10. The initial treatment plan will focus initially on: * Depression. * Risk for suicide. ESTIMATED LENGTH OF STAY: 5-7 DAYS. TIME SPENT COUNSELING AND COORDINATING INITIAL CARE: 60 minutes. Tobacco Cessation Screen Tobacco Cessation Tx Ordered?: Yes Ordered/Pending Vital Signs Vital Signs Date Time Temp Pulse Resp B/P (MAP) Pulse Ox O2 Delivery O2 Flow Rate FiO2 12/01/20 06:08 97.5 91 20 118/67 (84) 98 Room Air Laboratory Data 24H Labs Laboratory Tests 2 12/01/20 01:23: Nucleated Red Blood Cells % (auto) 0.0, Anion Gap 8, Glomerular Filtration Rate > 60.0, Calcium Level 9.5, Total Bilirubin 0.3, Direct Bilirubin 0.1, Aspartate Amino Transf (AST/SGOT) 33, Alanine Aminotransferase (ALT/SGPT) 41, Alkaline Phosphatase 86, Total Protein 7.9, Albumin 3.6, Albumin/Globulin Ratio 0.8L, Thyroid Stimulating Hormone (TSH) 1.730, Human Chorionic Gonadotropin, Qual NEGATIVE, Salicylates Level 2.7L, Urine Opiates Screen NEGATIVE, Urine Methadone Screen NEGATIVE, Acetaminophen Level < 2.0L, Urine Barbiturates Screen NEGATIVE, Urine Phencyclidine Screen NEGATIVE, Urine Amphetamines Screen POSITIVEH, Urine Benzodiazepines Screen NEGATIVE, Urine Cocaine Metabolite Screen NEGATIVE, Urine Cannabinoids Screen POSITIVEH, Ethyl Alcohol Level < 0.003 12/01/20 03:02: Coronavirus (COVID-19)(PCR) NEGATIVE, Influenza Type A (RT-PCR) NEGATIVE, Influenza Type B (RT-PCR) NEGATIVE, Respiratory Syncytial Virus (PCR) NEGATIVE CBC/BMP Laboratory Tests 12/01/20 01:23 Medications Scheduled Buprenorphine HCl/Naloxone HCl (Suboxone 8 mg-2 mg Sl Film) 1 Each Film, 1 STRIP SL BID for . , (Reported) FILLED 11/25/20 FOR 7 DAYS AND NURSE VERIFIED WITH [facility] Gabapentin (Gabapentin) 600 Mg Tablet, 600 MG PO TID, (Reported) Mirtazapine (Remeron) 30 Mg Tablet, 30 MG PO QHS, (Reported) Olanzapine (Olanzapine) 15 Mg Tablet, 15 MG PO QHS, (Reported) Prazosin Hcl (Prazosin HCl) 2 Mg Capsule, 2 MG PO QHS, (Reported) Scheduled PRN Nicotine Polacrilex (Nicotine Gum) 4 Mg Gum, 4 MG BUC QID PRN for SMOKING CESSATION, (Reported) Miscellaneous Medications [med rec comment] , (Reported) pt unable to verify meds and last doses Allergies Coded Allergies: No Known Allergies (Verified , 06/02/20) POOJA HARO NP December 01, 2020 13:02
[2020-12-01 18:00] VITALS: BP 116/83
[2020-12-01] MEDS: OLANZapine 5 MG TAB PO SCH (20:06)
[2020-12-01] MEDS: PRAZOSIN 1 MG CAP PO SCH (20:08)
[2020-12-01] MEDS ORDERED: MIRTAZAPINE 15 MG TAB PO SCH (21:00)
[2020-12-01] MEDS: traZODone 50 MG TAB PO PRN (23:34)
[2020-12-02] MEDS ORDERED: chlorproMAZINE 25 MG TABLET PO ONE (01:45)
[2020-12-02] MEDS ORDERED: diphenhydrAMINE 25MG CAP PO ONE (01:45)
[2020-12-02 06:26] VITALS: BP 124/84
[2020-12-02] MEDS: DOCUSATE SODIUM 100MG CAPSULE PO SCH (09:41)
[2020-12-02] MEDS: BUPRENORPHINE/NALOXONE 8-2MG SUBLINGUAL TABLET(SUBOXONE) SL SCH ×2 (09:41→14:00)
[2020-12-02] MEDS: GABAPENTIN 300 MG CAP PO SCH ×3 (09:41→21:00)
--- NOTE | 2020-12-02 13:26 | MHIPNPDOC ---
[facility] Progress Note Progress Note DATE OF SERVICE: 12/02/20 HISTORY: Patient is a 35 -year-old Single, Disabled, Domiciled, , female, who reports that she was having hallucinations that people are trying to kill her and that there is a "hit" on her head. She says she has had medications for 2 weeks because there have been medication changes. Reports that she uses methamphetamines occasionally and last used on Tuesday. States she is taking her Suboxone as prescribed. Wants to have her medications returned to her. PER ED REPORT: "I came to the hospital because I have something in my stomach, I think its a recording and I didn't put it there, I don't know who did and I want it out." Patient is a 34 -year-old Single, Unemployed, Domiciled, , female, who self presented to [facility] with delusional thoughts. [facility] and was admitted to [facility] door to door which she completed. She states she began using the day she was discharged. Using Heroin, Bath Salts and Methamphetamines a "few days ago." She came with complaints that there is something wrong in her stomach. She believes that she has a recording device in her stomach and that she needs to have surgery. VITAL SIGNS: See below. CURRENT MEDICATIONS: See below. MENTAL STATUS EXAMINATION: Patient is a 35 -year-old Single, Disabled, Domiciled, , female, who reports that she was having hallucinations that people are trying to kill her and that there is a "hit" on her head. General Appearance: unkempt, disheveled, appears stated age, hospital scrubs/clothing Build: thin Demeanor: average Eye Contact: avoidant Activity: drowsy Behavior: dismissive Speech: Slow, Low volume, rate,rhythm, Mood: Says she feels depressed and anxious Affect: full Thought Process: logical/linear Thought Content (Delusions): denies SI, she is paranoid and delusions . Believes people are trying to kill her. Thought Content (Other): none reported Thought Content (Aggressive): none reported Perception (Hallucinations):says she was seeing " weird things" in the room. Perception (Other): none reported Cognition (Impairment of): none reported Cognition(Intelligence Est.): average Oriented: Drowsy, sleepy, Oriented times three Insight: fair Judgment: Fair Psychosis: Psychotic Perceptions (believes people are after her) DIAGNOSES: Unspecified psychotic disorder - Schizoaffective disorder Methamphetamine use disorder History of heroin use disorder History of stimulant use disorder (bath salts) Rule out methamphetamine -induced psychotic disorder ASSESSMENT:Patient refused to leave her room and bed to meet in the interview room. She is interviewed while sitting in her bed covered in 2 blankets. She is unkempt, dishevelled and drowsy and sedated. She reports that she is depressed and anxious. She remains paranoid and delusional. States that she still thinks that people are trying to kill her. States that she has been seeing " weird things" in her room, she is unable to describe the weird things when asked to. She is not observed to be having internal stimuli. Staff reports that she has med seeking behaviors. She was started on her psychiatric medications. States that she is drowsy because of the Remeron. She took Remeron 30mg po last night. Says she has not taken it in over two weeks. She also states that she thinks she is going through methamphetamine withdrawal because she feels " hot and cold and tired out". Encouraged to shower, leave her room and interact with staff and peers when she can. MANAGEMENT PLAN:Continue with all medications TIME SPENT: 25 minutes. Vital Signs Vital Signs Date Time Temp Pulse Resp B/P (MAP) Pulse Ox O2 Delivery O2 Flow Rate FiO2 12/02/20 08:17 Room Air 12/02/20 06:26 97.1 120 20 124/84 (97) 96 Current Medications Current Medications Medications (Trade) Dose Ordered Sig/René Route PRN Reason Start Time Stop Time Status Last Admin Dose Admin Acetaminophen (Tylenol Tab) 650 mg Q6HP PRN PO HEADACHE or DISCOMFORT 12/01/20 03:55 Al Hydrox/Mg Hydrox/Simethicone (Mylanta) 30 ml Q4HP PRN PO HEARTBURN/INDIGESTION 12/01/20 03:55 Buprenorphine/ Naloxone (Suboxone 8/2mg) 1 tab BID@0900,1400 SL 12/02/20 09:00 Buprenorphine/ Naloxone (Suboxone 8/2mg) 1 tab NOW SL 12/01/20 14:05 12/01/20 18:52 DC 12/01/20 14:13 Cetylpyridinium Chloride (Cepacol) 1 ye Q4HP PRN PO SORE THROAT 12/01/20 14:15 12/01/20 18:08 Docusate Sodium (Colace) 100 mg DAILY PO 12/01/20 09:00 12/01/20 13:19 Gabapentin (Neurontin) 600 mg TID PO 12/01/20 16:00 12/01/20 20:07 Home Med (Med Rec Complete!) ASDIRECTED XX 12/01/20 04:20 12/01/20 04:43 DC Magnesium Hydroxide (Milk Of Magnesia) 30 ml DAILYPRN PRN PO CONSTIPATION 12/01/20 03:55 Mirtazapine (Remeron) 30 mg QHS PO 12/01/20 21:00 12/01/20 20:07 Nicotine (Nicorette) 4 mg Q4HP PRN PO NICOTINE WITHDRAWAL 12/01/20 13:25 Olanzapine (ZyPREXA ZYDIS) 5 mg Q6HP PRN PO ANXIETY/AGITATION 12/01/20 14:15 12/01/20 23:34 Olanzapine (ZyPREXA) 15 mg QHS PO 12/01/20 21:00 12/01/20 20:06 Prazosin HCl (Minipress) 2 mg QHS PO 12/01/20 21:00 12/01/20 20:08 Trazodone HCl (Desyrel) 50 mg QHSP PRN PO INSOMNIA 12/01/20 03:55 12/01/20 23:34 Allergies Coded Allergies: No Known Allergies (Verified , 06/02/20) POOJA HARO NP December 02, 2020 08:26
[2020-12-02 18:00] VITALS: BP 166/61
[2020-12-02] MEDS: PRAZOSIN 1 MG CAP PO SCH (21:00)
[2020-12-02] MEDS: OLANZapine 5 MG TAB PO SCH (21:00)
[2020-12-02] MEDS: MIRTAZAPINE 15 MG TAB PO SCH (21:00)
[2020-12-03 07:13] VITALS: BP 139/89
[2020-12-03] MEDS: OLANZapine ORAL DISINTEGRATING TAB 5MG PO PRN ×2 (07:49→13:24)
[2020-12-03] MEDS: BUPRENORPHINE/NALOXONE 8-2MG SUBLINGUAL TABLET(SUBOXONE) SL SCH ×2 (07:50→13:24)
[2020-12-03] MEDS: DOCUSATE SODIUM 100MG CAPSULE PO SCH (07:50)
[2020-12-03] MEDS: GABAPENTIN 300 MG CAP PO SCH ×3 (07:50→20:48)
[2020-12-03] MEDS: NICOTINE 21MG/24HR 1 EA TRANSDERMAL TD SCH (10:45)
--- NOTE | 2020-12-03 11:34 | MHIPNPDOC ---
[facility] Progress Note Progress Note DATE OF SERVICE: 12/03/20 HISTORY: Patient is a 35 -year-old Single, Disabled, Domiciled, , female, who reports that she was having hallucinations that people are trying to kill her and that there is a "hit" on her head. She says she has had medications for 2 weeks because there have been medication changes. Reports that she uses methamphetamines occasionally and last used on Tuesday. States she is taking her Suboxone as prescribed. Wants to have her medications returned to her. PER ED REPORT: "I came to the hospital because I have something in my stomach, I think its a recording and I didn't put it there, I don't know who did and I want it out." Patient is a 34 -year-old Single, Unemployed, Domiciled, , female, who self presented to [facility] with delusional thoughts. Patient was recently discharged from [facility] in April and was admitted to [facility] door to door which she completed. She states she began using the day she was discharged. Using Heroin, Bath Salts and Methamphetamines a "few days ago." She came with complaints that there is something wrong in her stomach. She believes that she has a recording device in her stomach and that she needs to have surgery. VITAL SIGNS: See below. CURRENT MEDICATIONS: See below. DIAGNOSES: Unspecified psychotic disorder - Schizoaffective disorder Methamphetamine use disorder History of heroin use disorder History of stimulant use disorder (bath salts) Rule out methamphetamine -induced psychotic disorder MENTAL STATUS EXAMINATION: Patient is a 35 -year-old Single, Disabled, Domiciled, , female, who reports that she was having hallucinations that people are trying to kill her and that there is a "hit" on her head.. Speech: Is clear, regular rate and volume Language skills are intact Thought processes including: Logical Thought content: Denies SI. Delusions- still thinks people are trying to kill her Description of abnormal or psychotic thoughts: Hearing voices-people whispering things in her ear. Judgment: fair Insight:fair Orientation:Awake, Alert and oriented X3 Recent and remote memory: Intact Attention span and concentration: Average Language:Intact Fund of knowledge: Average Mood: Anxious. Affect: Full. ASSESSMENT: Patient interviewed today. She is dressed in hospital gown , she just showered and looks well kempt. She is more awake today, cooperative, alert and oriented 3. States that she is anxious. Denies being depressed. Denies SI/HI/AV/VH. States that she is hearing voices. When asked to describe the voices, states that the voices come and go and are "just regular people always whispering things in my ears not saying anything particularly bad". Asked if she still believes that people are trying to kill her. She states "a little". States that her main problem now is being anxious. She is on Zyprexa q6hrs and is asking for something to help her in between the 6 hours. She states that she has suffered with anxiety for a long time. States that at home, her anxiety gets so bad that she goes into a panic attack which drives her to use methamphetamine. Says that if she had the proper medications to curb her anxiety then she would not use substances. 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 Says she always goes back to using substances after rehab. Insists that her uncontrolled anxiety drives her to use substances. She is on Suboxone at home. She attended group activity this morning. Says she likes the group sessions because they help her relax. She is observed interacting with staff and peers in the hallway. After the interview, a note was handed to ENGINEERING ILLUSTRATOR that patient is requesting Haldol for Hallucinations. According to staff note she is requesting to be discharged. Staff nurse reports that patient is complaining of not getting Haldol and that providers are discriminating against her for being an addict. MANAGEMENT PLAN:Continue with all medications TIME SPENT: 25 minutes. Vital Signs Vital Signs Date Time Temp Pulse Resp B/P (MAP) Pulse Ox O2 Delivery O2 Flow Rate FiO2 12/03/20 07:53 Room Air 12/03/20 07:13 98.0 60 22 139/89 (106) 100 Current Medications Current Medications Medications (Trade) Dose Ordered Sig/René Route PRN Reason Start Time Stop Time Status Last Admin Dose Admin Acetaminophen (Tylenol Tab) 650 mg Q6HP PRN PO HEADACHE or DISCOMFORT 12/01/20 03:55 Al Hydrox/Mg Hydrox/Simethicone (Mylanta) 30 ml Q4HP PRN PO HEARTBURN/INDIGESTION 12/01/20 03:55 Buprenorphine/ Naloxone (Suboxone 8/2mg) 1 tab BID@0900,1400 SL 12/02/20 09:00 12/03/20 07:50 Buprenorphine/ Naloxone (Suboxone 8/2mg) 1 tab NOW SL 12/01/20 14:05 12/01/20 18:52 DC 12/01/20 14:13 Cetylpyridinium Chloride (Cepacol) 1 ye Q4HP PRN PO SORE THROAT 12/01/20 14:15 12/01/20 18:08 Docusate Sodium (Colace) 100 mg DAILY PO 12/01/20 09:00 12/03/20 07:50 Gabapentin (Neurontin) 600 mg TID PO 12/01/20 16:00 12/03/20 07:50 Home Med (Med Rec Complete!) ASDIRECTED XX 12/01/20 04:20 12/01/20 04:43 DC Magnesium Hydroxide (Milk Of Magnesia) 30 ml DAILYPRN PRN PO CONSTIPATION 12/01/20 03:55 Mirtazapine (Remeron) 15 mg QHS PO 12/02/20 21:00 Mirtazapine (Remeron) 30 mg QHS PO 12/01/20 21:00 12/02/20 13:33 DC 12/01/20 20:07 Nicotine (Nicoderm Cq 21mg) 1 patch DAILY TD 12/03/20 09:00 12/03/20 10:45 Nicotine (Nicorette) 4 mg Q4HP PRN PO NICOTINE WITHDRAWAL 12/01/20 13:25 Cancel Olanzapine (ZyPREXA ZYDIS) 5 mg Q6HP PRN PO ANXIETY/AGITATION 12/01/20 14:15 12/03/20 07:49 Olanzapine (ZyPREXA) 15 mg QHS PO 12/01/20 21:00 12/01/20 20:06 Prazosin HCl (Minipress) 2 mg QHS PO 12/01/20 21:00 12/01/20 20:08 Trazodone HCl (Desyrel) 50 mg QHSP PRN PO INSOMNIA 12/01/20 03:55 12/01/20 23:34 Allergies Coded Allergies: No Known Allergies (Verified , 06/02/20) POOJA HARO NP December 03, 2020 11:34
--- NOTE | 2020-12-03 12:36 | HPEPDOC ---
[facility] Medical History & Physical Date of Admission December 01, 2020 Date of Service: December 03, 2020 Attending Physician: July Mark MD History and Physical HISTORY OF PRESENT ILLNESS: 35 yo W with a history of schizoaffective disorder and PSUD who called 911 and activated EMS and was brought in for suicidal ideation while reporting that she "overdosed on Methamphetamine." She denied chest pain, shortness of breath, FORD, N/V/D, abdominal pain. While in the ED she had a CBC and BMP that was grossly unremarkable with mild anemia to Hgb 11.8 and tox screen was positive for amphetamines and cannabinoids. She was deemed unsafe for discharge and appropriate for [facility] admission. Medicine was consulted for medical evaluation initially on 12/01/20 and, due to patient being stable from medical standpoint outside of psychiatric illness, she was signed off on. On 12/03/20 we were reconsulted to evaluate patient due to increased "twitching", hx of seizures. patient states that she has not been on her medications since the beginning of the year because she had heard that topamax she was previously on could cause "seizures". She admits to having increased leg and arm twitching, much like, she says, occurs when she is about to have a full blown seizure. She denies LOC and there are no documented seizures from this admission. She previously followed with Dr. De Leon's office in [place], but has not followed up with them. When checked with pharmacy here, she was previously on topamax 100 mg PO BID, this dose had been prescribed multiple times by multiple providers, including through [facility]. She currently denies vision changes, headaches, n/v/d, fevers, chills, SOB, chest pain. REVIEW OF SYSTEMS: Negative except as per HPI PAST MEDICAL HISTORY: Substance abuse (methamphetamines, heroin) disorder Psych history - as per records: Schizoaffective disorder Depression Anxiety Bipolar disorder Seizure disorder Migraine headache PAST SURGICAL HISTORY: C section umbilical hernia repair FAMILY HISTORY: Father: cirrhosis, , does not know age Mother: healthy, alive SOCIAL HISTORY: Smoker 1 pack per day for greater than 10 years. Lives alone and is currently unemployed. ALLERGIES: Please see below. CURRENT MEDICATIONS: Please see below. PHYSICAL EXAMINATION: VS: Please see below CONSTITUTIONAL: No acute distress, resting comfortably, AAO x 3 EYES: PERRLA, EOM intact HENT, MOUTH: Normocephalic, atraumatic, moist mucous membranes NECK: SUPPLE, no JVD, no lymphadenopathy, no carotid bruit CV: Regular rate and rhythm, S1S2 normal, no murmurs/rubs/gallops RESPIRATORY: Clear to auscultation bilaterally, no rales/rhonchi/wheezes GI: BS positive in 4 quadrants, soft, nontender, nondistended, no rebound or guarding, no organomegaly MUSCULOSKELETAL: Normal ROM. No cyanosis, clubbing, swelling, joint deformity, extremity edema INTEGUMENTARY: Intact, no rashes, no lesions, no erythema NEUROLOGIC: Cranial Nerves II-XII are intact, no focal deficits PSYCHIATRIC: Mood and affect appropriate. LABORATORY DATA: Please see below ASSESSMENT: 35 yo W with schizoaffective disorder who was admitted for unspecified psychotic disorder with suicidality i/s/o methamphetamine use. PLAN: #Seizure disorder -Stable, no documented seizures ;however, patient states that she feels ''twitchy" and her legs and upper extremities are shaking at times-all signs of possible seizure coming on per patient -Long, known hx of seizures -Patient states that she stopped taking topamax at previous dose because she was told it can cause seizures -I explained to her that an adverse rxn is not that it causes seizures but if you abruptly stop it it can cause "withdrawl seizures" -She understood the difference and asked if she could go back on the medication -Topamax 100 mg PO BID will be restarted today. Also on gabapentin- when confirm ed with pharmacy, she was on both of these meds previously #Unspecified psychosis with suicidal ideation - Tx per primary psychiatry team #Chronic constipation -daily colace -PRN milk of mag Thank you for this consult. Please reconsult as needed. Vital Signs Vital Signs Date Time Temp Pulse Resp B/P (MAP) Pulse Ox O2 Delivery O2 Flow Rate FiO2 12/03/20 07:53 Room Air 12/03/20 07:13 98.0 60 22 139/89 (106) 100 Home Medications Scheduled Buprenorphine HCl/Naloxone HCl (Suboxone 8 mg-2 mg Sl Film) 1 Each Film, 1 STRIP SL BID for . FILLED 11/25/20 FOR 7 DAYS AND NURSE VERIFIED WITH [facility] Gabapentin (Gabapentin) 600 Mg Tablet, 600 MG PO TID Mirtazapine (Remeron) 30 Mg Tablet, 30 MG PO QHS Olanzapine (Olanzapine) 15 Mg Tablet, 15 MG PO QHS Prazosin Hcl (Prazosin HCl) 2 Mg Capsule, 2 MG PO QHS Scheduled PRN Nicotine Polacrilex (Nicotine Gum) 4 Mg Gum, 4 MG BUC QID PRN for SMOKING CESSATION Miscellaneous Medications [med rec comment] pt unable to verify meds and last doses Allergies Coded Allergies: No Known Allergies (Verified , 06/02/20) A-FIB/CHADSVASC A-FIB History Current/History of A-Fib/PAF?: No Current PO Anticoag Therapy: No Age/Risk Factor Scoring CHADSVASC: CHADSVASC Response (Comments) Value Age Risk Factor Age < 65 years old 0 Gender Risk Factor Female 1 Hx of CHF No 0 Hx of HTN No 0 Hx of Stroke/TIA/or VTE No 0 Hx of Diabetes No 0 Hx of Vascular Disease No 0 Total 1 Treatment Treatment ordered: NONE Other anticoagulant ordered: none July Mark MD December 03, 2020 12:36
[2020-12-03] MEDS: TOPIRAMATE (TopAMAX) 100 MG TAB PO SCH ×2 (13:24→20:49)
[2020-12-03 17:41] VITALS: BP 119/71
[2020-12-03] MEDS: traZODone 50 MG TAB PO PRN (20:48)
[2020-12-03] MEDS: MIRTAZAPINE 15 MG TAB PO SCH (20:49)
[2020-12-03] MEDS: OLANZapine 5 MG TAB PO SCH (20:49)
[2020-12-03 20:50] VITALS: BP 106/61
[2020-12-03] MEDS: PRAZOSIN 1 MG CAP PO SCH (20:50)
[2020-12-04 06:29] VITALS: BP 108/53
[2020-12-04] MEDS: GABAPENTIN 300 MG CAP PO SCH (08:26)
[2020-12-04] MEDS: TOPIRAMATE (TopAMAX) 100 MG TAB PO SCH (08:26)
[2020-12-04] MEDS: BUPRENORPHINE/NALOXONE 8-2MG SUBLINGUAL TABLET(SUBOXONE) SL SCH (08:27)
[2020-12-04] MEDS: NICOTINE 21MG/24HR 1 EA TRANSDERMAL TD SCH (08:27)
[2020-12-04] MEDS: DOCUSATE SODIUM 100MG CAPSULE PO SCH (08:27)
[2020-12-04] MEDS ORDERED: metroNIDAZOLE (FLAGYL) 500MG TABLET PO SCH (09:00)
[2020-12-04] MEDS: OLANZapine ORAL DISINTEGRATING TAB 5MG PO PRN (11:43)
--- NOTE | 2020-12-04 12:06 | MHIPNPDOC ---
[facility] Progress Note Progress Note DATE OF SERVICE: 12/04/20 HISTORY: Patient is a 35 -year-old Single, Disabled, Domiciled, , female, who reports that she was having hallucinations that people are trying to kill her and that there is a "hit" on her head. She says she has had medications for 2 weeks because there have been medication changes. Reports that she uses methamphetamines occasionally and last used on Tuesday. States she is taking her Suboxone as prescribed. Wants to have her medications returned to her. laundromat manager is concerned that she will be getting extra assistance where patient will then use these funds for her substance dependence. Reinforced with patient case coordinator that patient is refusing to go to Rehab and that poor decisions on patient's part cannot be placed on treatment team. PER ED REPORT: "I came to the hospital because I have something in my stomach, I think its a recording and I didn't put it there, I don't know who did and I want it out." Patient is a 34 -year-old Single, Unemployed, Domiciled, , female, who self presented to [facility] with delusional thoughts. Patient was recently discharged from [facility] in April and was admitted to [facility] door to door which she completed. She states she began using the day she was discharged. Using Heroin, Bath Salts and Methamphetamines a "few days ago." She came with complaints that there is something wrong in her stomach. She believes that she has a recording device in her stomach and that she needs to have surgery. VITAL SIGNS: See below. CURRENT MEDICATIONS: See below. DIAGNOSES: Unspecified psychotic disorder - Schizoaffective disorder Methamphetamine use disorder History of heroin use disorder History of stimulant use disorder (bath salts) Rule out methamphetamine -induced psychotic disorder MENTAL STATUS EXAMINATION: Patient is a 35 -year-old Single, Disabled, Domiciled, , female, who reports that she was having hallucinations that people are trying to kill her and that there is a "hit" on her head.. Speech: Is clear, regular rate and volume Language skills are intact Thought processes including: Logical Thought content: Denies SI. Denies any psychotic symptoms Description of abnormal or psychotic thoughts: no AH/VH Judgment: fair Insight:fair Orientation:Awake, Alert and oriented X3 Recent and remote memory: Intact Attention span and concentration: Average Language:Intact Fund of knowledge: Average Mood: Anxious. Affect: Full. ASSESSMENT: Patient wants to attend [facility] meetings, and [facility] to go [facility]. 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 MANAGEMENT PLAN:Continue with all medications TIME SPENT: 25 minutes. Vital Signs Vital Signs Date Time Temp Pulse Resp B/P (MAP) Pulse Ox O2 Delivery O2 Flow Rate FiO2 12/04/20 06:29 98.8 72 16 108/53 (71) 97 Room Air Current Medications Current Medications Medications (Trade) Dose Ordered Sig/René Route PRN Reason Start Time Stop Time Status Last Admin Dose Admin Acetaminophen (Tylenol Tab) 650 mg Q6HP PRN PO HEADACHE or DISCOMFORT 12/01/20 03:55 Al Hydrox/Mg Hydrox/Simethicone (Mylanta) 30 ml Q4HP PRN PO HEARTBURN/INDIGESTION 12/01/20 03:55 Buprenorphine/ Naloxone (Suboxone 8/2mg) 1 tab BID@0900,1400 SL 12/02/20 09:00 12/04/20 08:27 Buprenorphine/ Naloxone (Suboxone 8/2mg) 1 tab NOW SL 12/01/20 14:05 12/01/20 18:52 DC 12/01/20 14:13 Cetylpyridinium Chloride (Cepacol) 1 ye Q4HP PRN PO SORE THROAT 12/01/20 14:15 12/01/20 18:08 Docusate Sodium (Colace) 100 mg DAILY PO 12/01/20 09:00 12/04/20 08:27 Gabapentin (Neurontin) 600 mg TID PO 12/01/20 16:00 12/04/20 08:26 Home Med (Med Rec Complete!) ASDIRECTED XX 12/01/20 04:20 12/01/20 04:43 DC Magnesium Hydroxide (Milk Of Magnesia) 30 ml DAILYPRN PRN PO CONSTIPATION 12/01/20 03:55 Metronidazole (Flagyl) 500 mg BID PO 12/04/20 09:00 12/11/20 08:59 Mirtazapine (Remeron) 15 mg QHS PO 12/02/20 21:00 12/03/20 20:49 Mirtazapine (Remeron) 30 mg QHS PO 12/01/20 21:00 12/02/20 13:33 DC 12/01/20 20:07 Nicotine (Nicoderm Cq 21mg) 1 patch DAILY TD 12/03/20 09:00 12/04/20 08:27 Nicotine (Nicorette) 4 mg Q4HP PRN PO NICOTINE WITHDRAWAL 12/01/20 13:25 Cancel Olanzapine (ZyPREXA ZYDIS) 5 mg Q6HP PRN PO ANXIETY/AGITATION 12/01/20 14:15 12/03/20 13:24 Olanzapine (ZyPREXA) 15 mg QHS PO 12/01/20 21:00 12/03/20 20:49 Prazosin HCl (Minipress) 2 mg QHS PO 12/01/20 21:00 12/03/20 20:50 Topiramate (TopAMAX) 100 mg BID PO 12/03/20 09:00 12/04/20 08:26 Trazodone HCl (Desyrel) 50 mg QHSP PRN PO INSOMNIA 12/01/20 03:55 12/03/20 20:48 Allergies Coded Allergies: No Known Allergies (Verified , 06/02/20) POOJA HARO NP December 04, 2020 11:36
[2020-12-04] MEDS ORDERED: OLAN15TA PO (12:23)
[2020-12-04] MEDS ORDERED: PRAZ2CAP PO (12:23)
[2020-12-04] MEDS ORDERED: TOPA100T12 PO (12:23)
[2020-12-04] MEDS ORDERED: NICO4GUM41 BUC (12:23)
[2020-12-04] MEDS ORDERED: MIRT-62 PO (12:23)
[2020-12-04] MEDS ORDERED: DOK1CAP7 PO (12:23)
[2020-12-04] MEDS ORDERED: FLAG500T PO (12:23)
[2020-12-04] MEDS ORDERED: GABA600T4 PO (12:23)
[2020-12-04] MEDS ORDERED: OLAN5ZYD PO (12:23)
--- NOTE | 2020-12-04 12:41 | MHDSPDOC ---
[facility] Discharge Summary Discharge Summary DATE OF ADMISSION: December 01, 2020 at 03:55 DATE OF DISCHARGE: December 04, 2020 at 1224 DISCHARGE DIAGNOSES: Unspecified psychotic disorder Schizoaffective disorder Methamphetamine use disorder History of heroin use disorder History of stimulant use disorder (bath salts) Rule out methamphetamine -induced psychotic disorder REASON FOR ADMISSION: Patient is a 35 -year-old Single, Disabled, Domiciled, , female, who reports that she was having hallucinations that people are trying to kill her and that there is a "hit" on her head. She says she has had medications for 2 weeks because there have been medication changes. Reports that she uses methamphetamines occasionally and last used on Tuesday. States she is taking her Suboxone as prescribed. Wants to have her medications returned to her. operational risk manager is concerned that she will be getting extra assistance where patient will then use these funds for her substance dependence. Reinforced with case management rn that patient is refusing to go to Rehab and that poor decisions on patient's part cannot be placed on treatment team. PER ED REPORT: "I came to the hospital because I have something in my stomach, I think its a recording and I didn't put it there, I don't know who did and I want it out." Patient is a 34 -year-old Single, Unemployed, Domiciled, , female, who self presented to [facility] with delusional thoughts. Patient was recently discharged from [facility] in April and was admitted to [facility] door to door which she completed. She states she began using the day she was discharged. Using Heroin, Bath Salts and Methamphetamines a "few days ago." She came with complaints that there is something wrong in her stomach. She believes that she has a recording device in her stomach and that she needs to have surgery. CONSULTANTS INVOLVED: : See H + P by Hospitalist TREATMENT AND PROGRESS ON THE UNIT : Patient was admitted to the [facility] on a 39 legal status he was afforded the following treatment modalities: 1) Individual Therapy 2) Group Therapy 3) Medication Management 4) Milieu Therapy 5) Safe Environment HOSPITAL COURSE: Patient admitted to [facility] on a 39 legal status. She was having hallucinations that people are trying to kill her and that there is a "hit" on her head. Initially she was in her room, sleeping most of the day, was drowsy and reporting that she was going through methamphetamine withdrawal saying that she was "hot and cold." She reported AH/VH. She continued to complaining of hallucinations but requesting multiple antipsychotic medications, also requested medications for seizures. Staff reports that she was doing better on this hospitalization then she has in the past. Per staff patient continued to have med-seeking behaviors during her hospitalization on this occurrence. Later in the day, she had reported that provider was discriminating against her because she is an addict. In today's session, she wants to attend [facility] meetings, and wants to go to directly to [facility]. 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 DISCHARGE ASSESSMENT: In today's interview, patient is alert and oriented, pts dress is appropriate. Hygiene and grooming is well-kempt. Smiles on approach and is pleasant and engaged in the interview. Denies depression and anxiety. Denies suicidal and homicidal ideation, planning or intent. Denies and is not observed with vince, psychotic symptoms of delusions, bizarre thinking, obsessions, paranoia, ruminations illogical thoughts, flight of ideas or having poor insight and judgment. Patient has normal mentation, declines further hospitalization on a voluntary status and meets criteria for discharge today. MENTAL STATUS EXAMINATION ON DISCHARGE: Patient is a 35 -year-old Single, Disabled, Domiciled, , female, who reports that she was having hallucinations that people are trying to kill her and that there is a "hit" on her head.. Speech: Is clear, regular rate and volume Language skills are intact Thought processes including: Logical Thought content: Denies SI. Denies any psychotic symptoms Description of abnormal or psychotic thoughts: no AH/VH Judgment: fair Insight:fair Orientation:Awake, Alert and oriented X3 Recent and remote memory: Intact Attention span and concentration: Average Language:Intact Fund of knowledge: Average Mood: Anxious. Affect: Full. MEDICATIONS ON DISCHARGE: See Discharge Reconciliation PLAN/FOLLOWUP ARRANGEMENTS: Patient is being discharged to home will be going to [facility] for a meeting and [facility] The amount of time spent in the coordination of care for this patient was approximately 25 minutes. ETOH/Disorder Med Rx ETOH/DRUG DISORDER RX: Given to pt at d/c Vital Signs/I&Os Vital Signs Date Time Temp Pulse Resp B/P (MAP) Pulse Ox O2 Delivery O2 Flow Rate FiO2 12/04/20 06:29 98.8 72 16 108/53 (71) 97 Room Air Medications Scheduled Buprenorphine HCl/Naloxone HCl (Suboxone 8 mg-2 mg Sl Film) 1 Each Film, 1 STRIP SL BID for . , (Reported) FILLED 11/25/20 FOR 7 DAYS AND NURSE VERIFIED WITH [facility] Docusate Sodium (Dok) 100 Mg Capsule, 100 MG PO DAILY for Constipation, #7 Gabapentin (Gabapentin) 600 Mg Tablet, 600 MG PO TID for Anxiety, #21 Metronidazole (Flagyl) 500 Mg Tablet, 500 MG PO BID for Soft Tissue Infection, #14 Mirtazapine (Remeron) 15 Mg Tablet, 15 MG PO QHS for Insomnia, #7 Olanzapine (Olanzapine) 15 Mg Tablet, 15 MG PO QHS for Antpsychotic, #7 Prazosin Hcl (Prazosin HCl) 2 Mg Capsule, 2 MG PO QHS for Nightmares, #7 Topiramate (Topamax) 100 Mg Tablet, 100 MG PO BID for Migraine/Pain, #14 Scheduled PRN Nicotine Polacrilex (Nicotine Gum) 4 Mg Gum, 4 MG BUC QID PRN for SMOKING CESSATION, #7 Olanzapine (Olanzapine Odt) 5 Mg Tab.rapdis, 5 MG PO DAILYPRN PRN for ANXIETY/AGITATION, #7 Allergies Coded Allergies: No Known Allergies (Verified , 06/02/20) POOJA HARO CLINICAL ADMINISTRATIVE COORDINATOR December 04, 2020 12:27
== END 2020-12-04 13:05 | disposition home or self-care (01) | DRG 751 ==
LOC: M ED 00:51 → M ED INP 03:55 → M PSY 05:15
PROVIDERS: ADMIT Psychiatry & Neurology Psychiatry; ATTEND Psychiatry & Neurology Psychiatry
DX: F29 Unspecified psychosis not due to a substance or known physiological condition (principal); F25.9 Schizoaffective disorder, unspecified; F15.159 Other stimulant abuse with stimulant-induced psychotic disorder, unspecified; F11.10 Opioid abuse, uncomplicated; G40.909 Epilepsy, unspecified, not intractable, without status epilepticus; K59.09 Other constipation; F17.200 Nicotine dependence, unspecified, uncomplicated; Z20.822 Contact with and (suspected) exposure to COVID-19; Z79.899 Other long term (current) drug therapy

== ENCOUNTER 2020-12-07 08:43 | Emergency (ER) | payer MEDICAID ==
[~2020-12-07] VITALS: Ht 154.9 cm; Wt 57.5 kg
[~2020-12-07 08:43] MED LIST changes: +BUPR1FIL3 SL; +FLAG500T PO; +GABA-283 PO; -GABA-845 PO; +NICO4GUM41 BUC; +OLAN15TA PO; +TOPA100T12 PO; +med rec comment
[2020-12-07] MEDS ORDERED: LORazepam 2 MG/ML VIAL IV STA (09:35)
[2020-12-07 09:49] LABS: INR 1.07; PROTHROMBIN TIME 14.1 SECONDS (12.5-14.3)
[2020-12-07] MEDS ORDERED: NS 1,000 ML IV SCH (09:50)
[2020-12-07 09:56] LABS: HCG, SERUM QUALITATIVE NEGATIVE (NEGATIVE)
[2020-12-07 10:10] LABS: ACETAMINOPHEN LEVEL < 2.0 UG/ML (10.0-30.0); ALBUMIN 3.8 GM/DL (3.2-5.2); ALT/SGPT 28 U/L (12-78); BILIRUBIN,DIRECT < 0.1 MG/DL (0.0-0.2); BILIRUBIN,TOTAL 0.2 MG/DL (0.2-1.0); BLOOD UREA NITROGEN 10 MG/DL (7-18); CALCIUM LEVEL 9.2 MG/DL (8.5-10.1); CARBON DIOXIDE LEVEL 23 MEQ/L (21-32); CHLORIDE LEVEL 107 MEQ/L (98-107); CK-MB VALUE MASS < 1.0 NG/ML (<3.6); CPK CREATINE PHOSPHOKINASE 74 U/L (26-192); CREATININE FOR GFR 0.75 MG/DL (0.55-1.30); GLOMERULAR FILTRATION RATE > 60.0 (>60); GLUCOSE, FASTING 109 MG/DL (70-100); LIPASE 130 U/L (73-393); MB/CK RELATIVE INDEX 1.35 (< OR =4); POTASSIUM SERUM 4.2 MEQ/L (3.5-5.1); SODIUM LEVEL 138 MEQ/L (136-145); TOTAL PROTEIN 8.5 GM/DL (6.4-8.2); TROPONIN I < 0.02 NG/ML (< 0.10)
[2020-12-07 10:14] LABS: BASO % 0.5 % (0.0-1.0); EOS % 0.7 % (0.0-3.0); HEMATOCRIT 38.3 % (36.0-47.0); HEMOGLOBIN 12.7 g/dl (12.0-15.5); LYMPH # 1.9 10^3/uL (1.5-5.0); LYMPH % 33.3 % (24.0-44.0); MEAN CORPUSCULAR HEMOGLOBIN 29.9 pg (27.0-33.0); MEAN CORPUSCULAR HGB CONC 33.2 g/dl (32.0-36.5); MEAN CORPUSCULAR VOLUME 90.1 fl (80.0-96.0); MONO # 0.4 10^3/uL (0.0-0.8); MONO % 7.1 % (2.0-8.0); NEUTROPHILS # 3.4 10^3/uL (1.5-8.5); NEUTROPHILS % 58.1 % (36.0-66.0); PLATELET COUNT, AUTOMATED 238 10^3/uL (150-450); RED BLOOD COUNT 4.25 10^6/uL (4.00-5.40); WHITE BLOOD COUNT 5.8 10^3/uL (4.0-10.0)
[2020-12-07 10:16] LABS: AMPHETAMINES LEVEL URINE POSITIVE (NEGATIVE); BARBITURATES URINE NEGATIVE (NEGATIVE); BENZODIAZEPINES URINE NEGATIVE (NEGATIVE); CANNABINOIDS URINE POSITIVE (NEGATIVE); COCAINE METABOLITE URINE NEGATIVE (NEGATIVE); METHADONE URINE NEGATIVE (NEGATIVE); OPIATES URINE NEGATIVE (NEGATIVE); PHENCYCLIDINE URINE NEGATIVE (NEGATIVE)
[2020-12-07 10:35] VITALS: BP 142/95
--- NOTE | 2020-12-07 10:41 | REP ---
INDICATION: CHEST PAIN. COMPARISON: 06/15/2019 also portable FINDINGS: The technique utilized in obtaining the radiograph has magnified the cardiac silhouette and accentuated the interstitial markings. The superior mediastinal structures are midline. The cardiac silhouette is unremarkable in size, shape, and position. The diaphragmatic surfaces of the lungs are regular, and the costophrenic angles are clear. The pulmonary francis are clear. The imaged osseous structures are intact. IMPRESSION: There is no acute cardiopulmonary disease. <Electronically signed by Kingsley Rios > 12/07/20 1037
--- NOTE | 2020-12-07 10:55 | ECGEPIP ---
[facility] - ED Test Date: 2020-12-07 Pat Name: BIGG SIMS Department: Room: - Gender: Female It Teacher: jairon : 1985 Requested By: Yessica Caal Order Number: [id number] Reading MD: Yessica Caal Measurements Intervals [place] Rate: 83 P: 36 NC: 154 QRS: 7 QRSD: 92 T: 31 QT: 400 QTc: 470 Interpretive Statements Normal sinus rhythm Possible Left atrial enlargement RSR' or QR pattern in V1 suggests right ventricular conduction delay T wave abnormality, consider ischemia, new 12/01/20 Prolonged QT, shorter 12/01/20 Electronically Signed on 12-07-2020 10:55:03 EDT by Yessica Caal
[2020-12-08] MEDS ORDERED: GABA600T4 PO (14:18)
[2020-12-08] MEDS ORDERED: OLAN15TA PO (14:18)
[2020-12-08] MEDS ORDERED: NICO4GUM MT (14:18)
[2020-12-08] MEDS ORDERED: MIRT-62 PO (14:18)
[2020-12-08] MEDS ORDERED: OLAN5ZYD SL (14:18)
[2020-12-08] MEDS ORDERED: COLA100C5 PO (14:18)
[2020-12-08] MEDS ORDERED: TOPI100T9 PO (14:18)
[2020-12-08] MEDS ORDERED: PRAZ2CAP PO (14:18)
[2020-12-08] MEDS ORDERED: METR-265 PO (14:18)
== END 2020-12-07 11:00 | disposition left against medical advice (07) ==
LOC: M ED 08:43
DX: R00.2 Palpitations (principal); Z53.9 Procedure and treatment not carried out, unspecified reason; F15.10 Other stimulant abuse, uncomplicated; F11.10 Opioid abuse, uncomplicated; F12.10 Cannabis abuse, uncomplicated; F17.200 Nicotine dependence, unspecified, uncomplicated; K42.9 Umbilical hernia without obstruction or gangrene; F25.9 Schizoaffective disorder, unspecified; B19.20 Unspecified viral hepatitis C without hepatic coma; Z79.899 Other long term (current) drug therapy
CPT/HCPCS: 36415; 71045; 80047; 80053; 80076; 80143; 80307; 82550; 82553; 83690; 84443; 84703; 85025; 85610; 93005; 93041; 94760; 96361; 96374; 99285; J2060

== ENCOUNTER 2020-12-08 07:42 | Inpatient (IN) | payer MEDICAID ==
[~2020-12-08] VITALS: Ht 157.5 cm; Wt 56.9 kg
[2020-12-08 09:31] LABS: HEMATOCRIT 39.2 % (36.0-47.0); HEMOGLOBIN 12.8 g/dl (12.0-15.5); MEAN CORPUSCULAR HEMOGLOBIN 29.7 pg (27.0-33.0); MEAN CORPUSCULAR HGB CONC 32.7 g/dl (32.0-36.5); PLATELET COUNT, AUTOMATED 276 10^3/uL (150-450); RED BLOOD COUNT 4.31 10^6/uL (4.00-5.40); WHITE BLOOD COUNT 9.1 10^3/uL (4.0-10.0)
[2020-12-08 10:30] LABS: ACETAMINOPHEN LEVEL < 2.0 UG/ML (10.0-30.0); ALBUMIN 3.9 GM/DL (3.2-5.2); ALT/SGPT 26 U/L (12-78); BILIRUBIN,DIRECT < 0.1 MG/DL (0.0-0.2); BILIRUBIN,TOTAL 0.3 MG/DL (0.2-1.0); BLOOD UREA NITROGEN 10 MG/DL (7-18); CALCIUM LEVEL 9.9 MG/DL (8.5-10.1); CARBON DIOXIDE LEVEL 22 MEQ/L (21-32); CHLORIDE LEVEL 111 MEQ/L (98-107); CREATININE FOR GFR 0.61 MG/DL (0.55-1.30); ETHYL ALCOHOL (ETHANOL) < 0.003 % (0.000-0.010); GLOMERULAR FILTRATION RATE > 60.0 (>60); GLUCOSE, FASTING 93 MG/DL (70-100); POTASSIUM SERUM 4.1 MEQ/L (3.5-5.1); SALICYLATE LEVEL 2.7 MG/DL (5.0-30.0); SODIUM LEVEL 140 MEQ/L (136-145); TOTAL PROTEIN 8.4 GM/DL (6.4-8.2)
[2020-12-08 12:17] LABS: AMPHETAMINES LEVEL URINE POSITIVE (NEGATIVE); BARBITURATES URINE NEGATIVE (NEGATIVE); BENZODIAZEPINES URINE NEGATIVE (NEGATIVE); CANNABINOIDS URINE POSITIVE (NEGATIVE); COCAINE METABOLITE URINE NEGATIVE (NEGATIVE); METHADONE URINE NEGATIVE (NEGATIVE); OPIATES URINE NEGATIVE (NEGATIVE); PHENCYCLIDINE URINE NEGATIVE (NEGATIVE)
[2020-12-08] MEDS ORDERED: NICO4GUM MT (14:18)
[2020-12-08] MEDS ORDERED: PRAZ2CAP PO (14:18)
[2020-12-08] MEDS ORDERED: OLAN5ZYD SL (14:18)
[2020-12-08] MEDS ORDERED: GABA600T4 PO (14:18)
[2020-12-08] MEDS ORDERED: METR-265 PO (14:18)
[2020-12-08] MEDS ORDERED: MIRT-62 PO (14:18)
[2020-12-08] MEDS ORDERED: TOPI100T9 PO (14:18)
[2020-12-08] MEDS ORDERED: OLAN15TA PO (14:18)
[2020-12-08] MEDS ORDERED: COLA100C5 PO (14:18)
[2020-12-08 16:07] LABS: RSV AMPLIFICATION NEGATIVE (NEGATIVE)
[2020-12-08] MEDS ORDERED: MAALOX 30 ML SUSP *UDC PO PRN (16:25)
[2020-12-08] MEDS ORDERED: traZODone 50 MG TAB PO PRN (16:25)
[2020-12-08] MEDS ORDERED: ACETAMINOPHEN TAB 650MG DOSE (2X325MG) PO PRN (16:25)
[2020-12-08] MEDS ORDERED: MOM 30ML SUSPENSION UDC PO PRN (16:25)
[2020-12-08 17:26] VITALS: BP 103/69
[2020-12-08] MEDS: OLANZapine ORAL DISINTEGRATING TAB 5MG PO PRN (18:09)
[2020-12-08] MEDS: NICOTINE POLACRILEX 2 MG GUM PO PRN (18:18)
--- NOTE | 2020-12-08 20:07 | ECGEPIP ---
[facility] - ED Test Date: 2020-12-08 Pat Name: BIGG SIMS Department: Room: - Gender: Female Family Member Caretaker: TERESA : 1985 Requested By: PANDA Alonzo Order Number: [id number] Reading MD: Yessica Caal Measurements Intervals [place] Rate: 85 P: 20 MT: 142 QRS: 43 QRSD: 88 T: 37 QT: 424 QTc: 504 Interpretive Statements Normal sinus rhythm T wave abnormality, consider anterior ischemia Prolonged QT compared 12/07/20 Electronically Signed on 12-08-2020 20:07:07 EDT by Yessica Caal
[2020-12-08] MEDS: GABAPENTIN 300 MG CAP PO SCH (20:47)
[2020-12-08] MEDS: MIRTAZAPINE 15 MG TAB PO SCH (20:47)
[2020-12-08] MEDS: metroNIDAZOLE (FLAGYL) 500MG TABLET PO SCH (20:47)
[2020-12-08] MEDS: TOPIRAMATE (TopAMAX) 100 MG TAB PO SCH (20:47)
[2020-12-08] MEDS: PRAZOSIN 1 MG CAP PO SCH (20:49)
[2020-12-08] MEDS: DOCUSATE SODIUM 100MG CAPSULE PO SCH (20:50)
[2020-12-08] MEDS ORDERED: OLANZapine 5 MG TAB PO SCH (21:00)
[2020-12-09 06:49] VITALS: BP 101/60
[2020-12-09] MEDS: GABAPENTIN 300 MG CAP PO SCH ×3 (08:02→20:44)
[2020-12-09] MEDS: DOCUSATE SODIUM 100MG CAPSULE PO SCH ×3 (08:02→20:44)
[2020-12-09] MEDS: TOPIRAMATE (TopAMAX) 100 MG TAB PO SCH ×2 (08:02→20:44)
[2020-12-09] MEDS: metroNIDAZOLE (FLAGYL) 500MG TABLET PO SCH ×2 (08:03→20:44)
[2020-12-09] MEDS: BUPRENORPHINE/NALOXONE 8-2MG SUBLINGUAL TABLET(SUBOXONE) SL SCH ×2 (08:03→13:55)
[2020-12-09] MEDS: NICOTINE POLACRILEX 2 MG GUM PO PRN ×2 (08:15→18:10)
[2020-12-09] MEDS: OLANZapine ORAL DISINTEGRATING TAB 5MG PO PRN (09:30)
--- NOTE | 2020-12-09 13:26 | MHHPE ---
CRITICAL ACCESS HOSPITAL HISTORY AND PHYSICAL DATE OF ADMISSION: 12/08/2020 PROVIDER: Isabella Barbour CHIEF COMPLAINT: "I am back because I wasn't put on the right medications when I left. I used because I was trying to self-medicate." HISTORY OF PRESENT ILLNESS: Patient is a 35-year-old single, disabled, domiciled, female who reports that she did use methamphetamine last evening in an attempt to make the voices stop. She reports that she used methamphetamines. She reports that she is depressed because she needs her medications adjusted. She reports being depressed. She was observed in the emergency room as paranoid and responding to internal stimuli. This is similar to many of her admissions prior. Her last admission was 12/01/2020-12/04/2020, and she has had 11 admissions. She also admits to using heroin, bath salts, and methamphetamine. Her toxicology screen is positive for TSH and amphetamines. PSYCHIATRIC REVIEW OF SYSTEMS: She reports depression, difficulty with concentration, hallucinations, delusions, anxiety, irritability. PAST PSYCHIATRIC HISTORY: Previous psychiatric diagnoses: Schizoaffective disorder, substance use disorder. Previous psychiatric admissions: Her last admission was 12/01/2020-12/04/2020. Suicide attempts: No gestures or attempts, but she has had suicidal ideations. Psychiatric followup: [facility]. PSYCHIATRIC MEDICATIONS: She has been tried on amitriptyline, BuSpar, gabapentin, haloperidol, mirtazapine, sertraline, topiramate. She is currently on buprenorphine. She is on gabapentin, nicotine patch, olanzapine, prazosin. PAST MEDICAL HISTORY: She has had two sections. She has an umbilical hernia. Denies having any head injury. Denies history of seizures. She has had multiple hospitalizations. She has had surgeries. FAMILY MEDICAL/PSYCHIATRIC HISTORY: Her father has schizophrenia. Her mother is alive and well with no medical issues. Addiction: No. Suicide attempts and completion: No. ADDICTION HISTORY: She smokes nicotine one pack a day. She uses methamphetamine. Last use was Tuesday. She uses heroin. History of using bath salts. SOCIAL HISTORY: Childhood: She was born in [place], [place]. Lived with her mother. She is an only child. ABUSE/TRAUMA: She reports trauma history and will not elaborate. CURRENT LIVING SITUATION: She lives alone in her own apartment, and she receives supplemental security income (SSI). EDUCATION: She did not graduate high school. EMPLOYMENT: She is not employed. She receives SSI. SOCIAL SUPPORT: Her stepfather is a social support for her. LEGAL PROBLEMS: She served [facility] times one year for possession with intent to sell. MARITAL: She is single. Currently . Has two children, ages 14 and 19. MENTAL STATUS EXAMINATION: General appearance: She is unkempt, disheveled. Appears older than her stated age. She is dressing in hospital clothing. Build: She is thin. Demeanor: Average. Eye contact: Average. Activity: Anxious. Behavior: Uncooperative. Speech: Clear. Normal volume, rate, rhythm. Mood: She reports being depressed and anxious. Affect is flat. Thought process: Linear. Thought content: She denies suicidal ideations. Denies homicidal ideations. Denies current auditory hallucination or visual hallucination. She is paranoid. Denies being delusional. Thought content: None reported, although she is agitated. Perception: Denies hallucination. She is paranoid. Cognition: She is alert and oriented times three. Cognition, intelligence average. Oriented: She is awake, alert, oriented times three. Insight poor. Judgment poor. Psychosis: Denies hallucination, delusions. She is paranoid. DIAGNOSES: 1. Schizoaffective disorder. 2. Unspecified psychotic disorder. 3. Methamphetamine use disorder. 4. Cannabis use disorder. 5. History of heroin use disorder. 6. History of stimulus use disorder, bath salts. 7. Rule out methamphetamine-induced psychotic disorder. Patient does not have atrial fibrillation. She does have a cardiac history due to history of substance abuse. She is not on any anticoagulation. ASSESSMENT: Patient is familiar to this facility with a long history of polysubstance use disorder and psychosis with paranoia and delusions. On this occasion she reports that she was using substances to self-medicate. She states that she was not put on the right medications, and she wants her medications adjusted. She reports that prior to the admission she was depressed, anxious, and having hallucinations. She reports that she is depressed because she needs her medications adjusted. Today she denies suicidal ideations. She denies homicidal ideations. Denies hallucinations. States that she is still anxious and depressed. She states that she wants help, and she prefers that she be started on Invega. She will be started on Zoloft and Risperdal, and she wants to be on the long-acting injectable. We enforced with the patient that she has to be on Risperdal by mouth for a few days before she can get the shot. INITIAL TREATMENT PLAN: 1. Patient was admitted on a 9.39 status. 2. Complete history was obtained. 3. With patient's permission, family will be contacted and database will be expanded. 4. Patient's medication regimen will be reviewed and changed accordingly. 5. Patient will be provided with protected environment. 6. Patient will be treated with individual, group, and milieu therapy. 7. Patient will receive supportive psychoeducation. 8. Discharge planning will commence immediately. 9. Outpatient followup treatment will be strongly recommended. 10. The initial treatment plan will focus on depression, risk for suicide, substance use, altered thoughts. ESTIMATED LENGTH OF STAY: 5-7 days. TIME SPENT COUNSELING AND COORDINATING INITIAL CARE: 60 minutes. TOBACCO CESSATION SCREEN: Tobacco cessation treatment ordered? Yes.
[2020-12-09 16:18] VITALS: BP 121/84
[2020-12-09 20:44] VITALS: BP 121/84
[2020-12-09] MEDS: PRAZOSIN 1 MG CAP PO SCH (20:44)
[2020-12-09] MEDS: MIRTAZAPINE 15 MG TAB PO SCH (20:44)
[2020-12-09] MEDS ORDERED: risperiDONE 3 MG TAB PO SCH (21:00)
[2020-12-09] MEDS ORDERED: SERTRALINE HCL 50 MG TAB PO SCH (21:00)
[2020-12-09 23:09] VITALS: BP 135/77
[2020-12-10] MEDS: NICOTINE POLACRILEX 2 MG GUM PO PRN ×2 (04:01→09:41)
[2020-12-10 06:26] VITALS: BP 120/76
[2020-12-10] MEDS: BUPRENORPHINE/NALOXONE 8-2MG SUBLINGUAL TABLET(SUBOXONE) SL SCH (07:35)
[2020-12-10] MEDS: GABAPENTIN 300 MG CAP PO SCH (09:03)
[2020-12-10] MEDS: DOCUSATE SODIUM 100MG CAPSULE PO SCH (09:03)
[2020-12-10] MEDS: metroNIDAZOLE (FLAGYL) 500MG TABLET PO SCH (09:04)
[2020-12-10] MEDS: TOPIRAMATE (TopAMAX) 100 MG TAB PO SCH (09:04)
[2020-12-10] MEDS: OLANZapine ORAL DISINTEGRATING TAB 5MG PO PRN (09:40)
[2020-12-10] MEDS ORDERED: SERT50TA29 PO (10:35)
[2020-12-10] MEDS ORDERED: FLAG500T PO (10:35)
[2020-12-10] MEDS ORDERED: GABA600T4 PO (10:35)
[2020-12-10] MEDS ORDERED: RISP-10 PO (10:35)
[2020-12-10] MEDS ORDERED: COLA100C5 PO (10:35)
--- NOTE | 2020-12-10 10:59 | MHDSPDOC ---
[facility] Discharge Summary Discharge Summary DATE OF ADMISSION: December 08, 2020 at 16:24 DATE OF DISCHARGE:December 10, 2020 at 1128 DISCHARGE DIAGNOSES: 1. Schizoaffective disorder. 2. Unspecified psychotic disorder. 3. Methamphetamine use disorder. 4. Cannabis use disorder. 5. History of heroin use disorder. 6. History of stimulus use disorder, bath salts. 7. Rule out methamphetamine-induced psychotic disorder. 8. Rule out Borderline Personality Disorder REASON FOR ADMISSION: : Patient is a 35-year-old single, disabled, domiciled, female who came in reporting that I am back because I wasn't put on the right medications when I left. I used because I was trying to self-medicate. She reported that she did use methamphetamine last evening in an attempt to make the voices stop. She reports that she is depressed because she needs her medications adjusted. She was observed in the emergency room as paranoid and responding to internal stimuli. This is similar to many of her admissions prior. Her last admission was 12/01/2020-12/04/2020, and she has had 11 admissions. She also admits to using heroin, bath salts, and methamphetamine. Her toxicology screen is positive for TSH and amphetamines. PER ED REPORT: Pt with a hx of schizoaffective d/o and polysubstance abuse and also has several psych admissions to [facility] presents to [facility] ED.. Pt reports that she was just recently d/c from [facility]. Pt is very tearful and seems to be internally preoccupied and talking with someone who is not in the room at times. Pt also reports that she feels as though the medications that she was prescribed are not working and making her hallucinations worse. Pt appears paranoid, mumbling, pt unwilling or unable to answer questions at this time however, does deny SI/HI. Pt reports that she did use Meth last evening in an attempt to make the voices stop. VITAL SIGNS: See below. CONSULTANTS INVOLVED: See Medical H + P by Hospitalist TREATMENT AND PROGRESS ON THE UNIT: Patient was admitted to the [facility] on a 9.39 legal status he was afforded the following treatment modalities: 1) Individual Therapy 2) Group Therapy 3) Medication Management 4) Milieu Therapy 5) Safe Environment HOSPITAL COURSE: Patient is a 35-year-old single, disabled, domiciled, female who came in reporting that she was depressed, used methamphetamine and was having visual hallucinations, and paranoia. Patient is familiar to this facility with a long history of polysubstance use disorder and psychosis with paranoia and delusions. On this occasion she reports that she was using substances to self-medicate. She states that she was not put on the right medications, and she wanted her medications adjusted. She reports that prior to the admission she was depressed, anxious, and having hallucinations. She reports that she was depressed because she needs her medications adjusted. She denies suicidal ideations. She denies homicidal ideations. Denied hallucinations. Reported that she is still anxious and depressed. She stated that she wants help, and she prefers that she be started Invega. She asked for and was agreeable be started on Zoloft and Risperdal, and wanted to be on the long-acting injectable. We enforced with the patient that she has to be on Risperdal by mouth for a few days before she can get the shot. She now wants discharge, states that she came in for medication adjustments and she is satisfied and hopeful that the Zoloft and Risperdal will help her. She states that she wants rehab but that she will try to get into a program outpatient. She states that since being here, her depressive symptoms and anxiety have subsided. States that she had a seizure yesterday and that the staff " they were not nice to me, thought I was faking it and med seeking, which is bullshit". Per staff notes, patient did not exhibit any seizure activity or postictal phase and was coherent throughout and her VS were WNL, respirations were regular and was quite aggressive and agitated throughout her report of seizure activity. States that she has " other concerns" but refuses to elaborate saying that we will not be able to help her. She wants Suboxone but states that she will have to get an appointment at [facility] to get a prescription and it takes days to get an appointment . She states" I 'll just buy some Suboxone I guess". Patient did not reestablish herself with [facility] after her last discharge and then she returned to our ED within a few days. Reinforced with patient that she needed to go to [facility] post last discharge and she needs to go [facility] after this discharge. Advised her against buying it from the streets. Patient denies SI. Denies HI/ AH/VH at this time. DISCHARGE ASSESSMENT: In today's interview, patient is alert and oriented, pts dress is appropriate. Hygiene and grooming is well-kempt. Smiles on approach and is pleasant and engaged in the interview. Denies depression and anxiety. Denies suicidal and homicidal ideation, planning or intent. Denies and is not observed with vince, psychotic symptoms of delusions, bizarre thinking, obsess ions, paranoia, ruminations illogical thoughts, flight of ideas or having poor insight and judgement. Patient has normal mentation, declines further hospitalization on a voluntary status and meets criteria for discharge today. MENTAL STATUS EXAMINATION ON DISCHARGE: Patient is a 35-year-old single, disabled, domiciled, female who came in reporting that she was depressed, used methamphetamine and was having visual hallucinations, and had paranoia Speech: Is fluid, conversant, normal rate, tone and volume Language skills are intact Thought processes including: linear Thought content: Stated that depression and anxiety have decreased. Denies suicidal/homicidal ideation, planning or intent. Abstract reasoning, and computation: fair Description of associations: denies, none observed Description of abnormal or psychotic thoughts: denies, none observed. Judgment: fair Insight: fair Orientation: alert and oriented to person, place, time and situation Recent and remote memory: intact Attention span and concentration: average Language: expansive Fund of knowledge: average Mood: Irritable Affect: reactive MEDICATIONS ON DISCHARGE: See Medication Reconciliation PLAN/FOLLOWUP ARRANGEMENTS:Follow up with [facility]. The amount of time spent in the coordination of care for this patient was approximately 25 minutes. ETOH/Disorder Med Rx ETOH/DRUG DISORDER RX: Offrd @ d/c & pt refused (Patient advised to reestablish with [facility] to get Suboxone.) Vital Signs/I&Os Vital Signs Date Time Temp Pulse Resp B/P (MAP) Pulse Ox O2 Delivery O2 Flow Rate FiO2 12/10/20 06:26 98.0 96 18 120/76 (91) 98 Room Air Medications Scheduled Buprenorphine HCl/Naloxone HCl (Suboxone 8 mg-2 mg Sl Film) 1 Each Film, 1 STRIP SL BID, (Reported) Docusate Sodium (Colace) 100 Mg Capsule, 100 MG PO TID for Constipation, #21 Gabapentin (Gabapentin) 600 Mg Tablet, 600 MG PO TID for Anxiety, #21 Metronidazole (Flagyl) 500 Mg Tablet, 500 MG PO QHS for Infection, #1 Mirtazapine (Remeron) 15 Mg Tablet, 15 MG PO QHS, (Reported) Prazosin Hcl (Prazosin HCl) 2 Mg Capsule, 2 MG PO QHS, (Reported) Risperidone (Risperidone) 3 Mg Tablet, 3 MG PO QHS for Antipsychotic, #7 Sertraline HCl (Sertraline HCl) 50 Mg Tablet, 50 MG PO QHS for Depression, #7 Topiramate (Topiramate) 100 Mg Tablet, 100 MG PO BID, (Reported) Scheduled PRN Nicotine Polacrilex (Nicotine Gum) 4 Mg Gum, 4 MG MT QID PRN for SMOKING CESSATION, (Reported) Allergies Coded Allergies: No Known Allergies (Verified , 06/02/20) POOJA HARO NP December 10, 2020 10:59
--- NOTE | 2020-12-10 18:47 | HPEPDOC ---
[facility] Medical History & Physical Date of Admission December 08, 2020 Date of Service: December 10, 2020 Attending Physician: JERARDO HSOOK MD History and Physical patient had already been discharged when I went to evaluate her in the [facility]. Vital Signs Vital Signs Date Time Temp Pulse Resp B/P (MAP) Pulse Ox O2 Delivery O2 Flow Rate FiO2 12/10/20 06:26 98.0 96 18 120/76 (91) 98 Room Air Home Medications Scheduled Buprenorphine HCl/Naloxone HCl (Suboxone 8 mg-2 mg Sl Film) 1 Each Film, 1 STRIP SL BID Docusate Sodium (Colace) 100 Mg Capsule, 100 MG PO TID for Constipation Gabapentin (Gabapentin) 600 Mg Tablet, 600 MG PO TID for Anxiety Metronidazole (Flagyl) 500 Mg Tablet, 500 MG PO QHS for Infection Mirtazapine (Remeron) 15 Mg Tablet, 15 MG PO QHS Prazosin Hcl (Prazosin HCl) 2 Mg Capsule, 2 MG PO QHS Risperidone (Risperidone) 3 Mg Tablet, 3 MG PO QHS for Antipsychotic Sertraline HCl (Sertraline HCl) 50 Mg Tablet, 50 MG PO QHS for Depression Topiramate (Topiramate) 100 Mg Tablet, 100 MG PO BID Scheduled PRN Nicotine Polacrilex (Nicotine Gum) 4 Mg Gum, 4 MG MT QID PRN for SMOKING CESSATION Allergies Coded Allergies: No Known Allergies (Verified , 06/02/20) JERARDO SHOOK MD December 10, 2020 11:40
== END 2020-12-10 12:42 | disposition home or self-care (01) | DRG 750 ==
LOC: M ED 07:42 → M ED INP 16:24 → M PSY 16:52
PROVIDERS: ADMIT Psychiatry & Neurology Psychiatry; ATTEND Psychiatry & Neurology Psychiatry
DX: F25.9 Schizoaffective disorder, unspecified (principal); F29 Unspecified psychosis not due to a substance or known physiological condition; F15.150 Other stimulant abuse with stimulant-induced psychotic disorder with delusions; F17.210 Nicotine dependence, cigarettes, uncomplicated; F12.10 Cannabis abuse, uncomplicated; Z81.8 Family history of other mental and behavioral disorders; Z79.899 Other long term (current) drug therapy; Z20.822 Contact with and (suspected) exposure to COVID-19; F60.3 Borderline personality disorder

== ENCOUNTER 2020-12-14 09:22 | Emergency (ER) | payer MEDICAID ==
[~2020-12-14] VITALS: Ht 154.9 cm; Wt 55.8 kg
[~2020-12-14 09:22] MED LIST changes: +METR-265 PO; +NICO4GUM MT; +OLAN5ZYD SL; +RISP-10 PO
[2020-12-14] MEDS ORDERED: OLAN5ZYD PO (09:41)
[2020-12-14 09:52] LABS: HEMATOCRIT 36.1 % (36.0-47.0); HEMOGLOBIN 12.1 g/dl (12.0-15.5); MEAN CORPUSCULAR HEMOGLOBIN 30.2 pg (27.0-33.0); MEAN CORPUSCULAR HGB CONC 33.5 g/dl (32.0-36.5); PLATELET COUNT, AUTOMATED 229 10^3/uL (150-450); RED BLOOD COUNT 4.01 10^6/uL (4.00-5.40); WHITE BLOOD COUNT 6.3 10^3/uL (4.0-10.0)
--- NOTE | 2020-12-14 10:05 | REP ---
INDICATION: ? foreign body. COMPARISON: 12/07/2020. TECHNIQUE: Single portable AP view of the chest was performed. FINDINGS: There is no acute infiltrate or pulmonary edema. Lungs are clear. The heart is not significantly enlarged. The mediastinal silhouette is unremarkable. The visualized osseous structures are intact.No radiopaque foreign body is visualized. IMPRESSION: No acute pulmonary disease. <Electronically signed by Golden Zabala > 12/14/20 1001
[2020-12-14 10:17] LABS: ATYPICAL LYMPH 4 % (0-5); BASOPHILS 2 % (0-1); EOSINOPHILS 2 % (0-3); LYMPHOCYTES 41 % (16-44); MONOCYTES 3 % (0-5); NEUTROPHILS 48 % (28-66)
[2020-12-14 10:18] LABS: PLATELET ESTIMATE NORMAL (NORMAL)
[2020-12-14 10:22] LABS: HCG, SERUM QUALITATIVE NEGATIVE (NEGATIVE)
[2020-12-14 10:26] LABS: ACETAMINOPHEN LEVEL < 2.0 UG/ML (10.0-30.0); ALBUMIN 3.8 GM/DL (3.2-5.2); ALT/SGPT 23 U/L (12-78); BILIRUBIN,DIRECT 0.1 MG/DL (0.0-0.2); BILIRUBIN,TOTAL 0.2 MG/DL (0.2-1.0); BLOOD UREA NITROGEN 7 MG/DL (7-18); CALCIUM LEVEL 9.2 MG/DL (8.5-10.1); CARBON DIOXIDE LEVEL 24 MEQ/L (21-32); CHLORIDE LEVEL 108 MEQ/L (98-107); CPK CREATINE PHOSPHOKINASE 52 U/L (26-192); CREATININE FOR GFR 0.63 MG/DL (0.55-1.30); ETHYL ALCOHOL (ETHANOL) < 0.003 % (0.000-0.010); GLOMERULAR FILTRATION RATE > 60.0 (>60); GLUCOSE, FASTING 105 MG/DL (70-100); POTASSIUM SERUM 3.5 MEQ/L (3.5-5.1); SALICYLATE LEVEL 2.3 MG/DL (5.0-30.0); SODIUM LEVEL 139 MEQ/L (136-145); TOTAL PROTEIN 7.9 GM/DL (6.4-8.2)
[2020-12-14 10:57] LABS: AMPHETAMINES LEVEL URINE POSITIVE (NEGATIVE); BARBITURATES URINE NEGATIVE (NEGATIVE); BENZODIAZEPINES URINE NEGATIVE (NEGATIVE); CANNABINOIDS URINE NEGATIVE (NEGATIVE); COCAINE METABOLITE URINE NEGATIVE (NEGATIVE); METHADONE URINE NEGATIVE (NEGATIVE); OPIATES URINE POSITIVE (NEGATIVE); PHENCYCLIDINE URINE NEGATIVE (NEGATIVE)
--- NOTE | 2020-12-14 12:18 | REP ---
INDICATION: ?FB. COMPARISON: None. TECHNIQUE: Three AP and lateral views soft tissues neck. FINDINGS: The adenoids are not enlarged. There is no prevertebral soft tissue swelling. Epiglottis is normal in size. Sherman tonsils do not appear to be significantly enlarged. The airway is widely patent. No radiopaque foreign body is visualized. IMPRESSION: Unremarkable exam soft tissues neck. <Electronically signed by Golden Zabala > 12/14/20 [id number]
[2020-12-15] MEDS ORDERED: LORazepam 2 MG TAB PO STA (03:26)
[2020-12-15] MEDS ORDERED: GABA-282 PO (06:12)
[2020-12-15] MEDS ORDERED: DOCU100C16 PO (06:13)
[2020-12-15] MEDS ORDERED: OLAN15TA PO (10:30)
--- NOTE | 2020-12-15 13:14 | ECGEPIP ---
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
--- NOTE | 2020-12-15 13:25 | ECGEPIP ---
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
[2020-12-15 14:34] VITALS: BP 124/88
== END 2020-12-15 14:35 | disposition home or self-care (01) ==
LOC: EDBD 09:22 → M ED 09:22
DX: F19.10 Other psychoactive substance abuse, uncomplicated (principal); T42.8X1A Poisoning by antiparkinsonism drugs and other central muscle-tone depressants, accidental (unintentional), initial encounter; F20.9 Schizophrenia, unspecified; F17.200 Nicotine dependence, unspecified, uncomplicated; F11.10 Opioid abuse, uncomplicated; F15.10 Other stimulant abuse, uncomplicated; Z79.899 Other long term (current) drug therapy

== ENCOUNTER 2021-05-19 18:42 | Inpatient (IN) | payer MEDICAID, OTHER ==
[~2021-05-19] VITALS: Ht 154.9 cm; Wt 59.1 kg
[~2021-05-19 18:42] MED LIST changes: +DOCU100C16 PO; +DOK1CAP4 PO; -DOK1CAP7 PO; +DOXY-443 PO; -DOXY100C37 PO; -OLAN15TA PO; +OLAN15TA13 PO; +OLAN1TAB16 PO; -OLAN5TAB PO; -QUET50TA3; -QUET50TA3 PO; +QUET50TA4; +QUET50TA4 PO
--- OUTSIDE RECORDS SUMMARY | 2021-05-19 18:47 | CCD ---
Author Organization Unknown Address [address] [place] [address] Phone [phone] Care Team Providers Care Public Address System Installer Name Role Phone Cyndi Julito Unavailable Unavailable Allergies Code Code System Name Reaction Severity Status Onset NKDA Medications Name Status Start Date Stop Date amitriptyline 25 mg tablet TAKE ONE TABLET BY MOUTH AT BEDTIME Completed aripiprazole 2 mg tablet TAKE ONE TABLET BY MOUTH EVERY MORNING Completed 05/13/2021 atomoxetine 10 mg capsule TAKE TWO CAPSULES BY MOUTH EVERY DAY Completed atomoxetine 40 mg capsule TAKE ONE CAPSULE BY MOUTH EVERY DAY Completed atomoxetine 60 mg capsule Active Not av ailable benztropine 1 mg tablet TAKE ONE TABLET BY MOUTH TWICE A DAY NEEDED Completed 05/13/2021 buprenorphine 12 mg-naloxone 3 [address] film PL[address] ONE FILM UNDER THE TONGUE EVERY MORNING MAXIMUM DAILY DOSE 1 FILM Active Not available buprenorphine 8 mg-naloxone 2 mg subling ual film PLACE ONE FILM UNDER THE TONGUE TWICE A DAY MAXIMUM DAILY DOSE 2 FILMS Active Not available buprenorphine 8 mg-naloxone 2 mg subling ual tablet PLACE ONE TABLET UNDER THE TONGUE TWICE A DAY MAXIMUM DAILY DOSE TWO TABLETS Active Not available buprenorphine HCl [address] TWO TABLETS UNDER THE TONGUE EVERY DAY MAXIMUM DAILY DOSE TWO TABLETS Active Not available bupropion HCl XL 150 mg 24 hr tablet, ex tended release TAKE ONE TABLET BY MOUTH EVERY MORNING Active Not available buspirone 15 mg tablet Active Not avail able buspirone 7.5 mg tablet TAKE ONE TABLET BY MOUTH THREE TIMES A DAY Completed 05/13/2021 cephalexin 500 mg capsule TAKE ONE CAPSULE BY MOUTH THREE TIMES A DAY Completed 05/13/2021 cephalexin 500 mg tablet Take 1 tablet every 6 hours by oral route. Active Not available cholecalciferol (vitamin D3) 50 mcg (2,0 00 unit) tablet TAKE ONE TABLET BY MOUTH EVERY DAY Active Not available divalproex 250 mg tablet,delayed release TAKE ONE TABLET BY MOUTH TWICE A DAY Completed divalproex 500 mg tablet,delayed release TAKE ONE TABLET BY MOUTH TWICE A DAY Completed docusate sodium 100 mg capsule TAKE TWO CAPSULES BY MOUTH EVERY DAY NEEDED Completed 05/13/2021 doxycycline hyclate 100 mg tablet TAKE ONE TABLET BY MOUTH TWICE A DAY Completed Fiber (psyllium husk-sugar) 3.4 gram/12 gram oral powder TAKE 1 ROUNDED TEASPOONFUL MIXED IN FLUID BY MOUTH TWO TIMES A DAY Active Not available fluoxetine 10 mg capsule TAKE ONE CAPSULE BY MOUTH EVERY MORNING Completed 05/13/2021 fluticasone propionate 50 mcg/actuation nasal spray,suspension SPRAY ONE SPRAY IN EACH NOSTRIL TWICE A DAY Active Not available 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 mg capsule TAKE ONE CAPSULE BY MOUTH TWICE A DAY Completed gabapentin 300 mg capsule TAKE ONE CAPSULE BY MOUTH TWICE A DAY Completed gabapentin 400 mg capsule TAKE ONE CAPSULE BY MOUTH FOUR TIMES A DAY Completed 05/13/2021 gabapentin 600 mg tablet Active Not juliana ilable haloperidol 10 mg tablet TAKE TWO TABLETS BY MOUTH TWICE A DAY NEEDED Completed 05/13/2021 haloperidol 2 mg tablet TAKE TWO TABLETS BY MOUTH THREE TIMES A DAY 8AM 1PM. AND 9PM Completed 05/13/2021 hydroxyzine HCl 25 mg tablet TAKE ONE TABLET BY MOUTH THREE TIMES A DAY NEEDED Completed 05/13/2021 hydroxyzine HCl 50 mg tablet TAKE ONE TABLET BY MOUTH THREE TIMES A DAY NEEDED Completed 05/13/2021 Invega Sustenna 156 mg/mL intramuscular syringe INJECT 1 INTRAMUSCULARLY EVERY 4 WEEKS Active Not available Invega Sustenna 234 mg/1.5 mL intramuscu lar syringe INJECT INTRAMUSCULARLY EVERY 30 DAYS Active No t available levothyroxine 50 mcg tablet TAKE ONE TABLET BY MOUTH EVERY DAY Completed 05/01 loratadine 10 mg tablet TAKE ONE TABLET BY MOUTH EVERY DAY Completed 05/01 melatonin 3 mg tablet TAKE TWO TABLETS BY MOUTH AT BEDTIME NEEDED FOR SLEEP Active Not available metronidazole 500 mg tablet 500 MG BY MOUTH AT BEDTIME FOR INFECTION Completed 05/13/2021 mirtazapine 15 mg tablet Completed mirtazapine 30 mg tablet TAKE ONE TABLET BY MOUTH AT BEDTIME Active Not available mupirocin 2 % topical ointment Apply bid to wound on right arm for 2 weeks. Active Not available naproxen 500 mg tablet TAKE ONE TABLET BY MOUTH TWICE A DAY AT 6AM AND 6PM Completed 05/13/2021 Narcan 4 mg/actuation nasal spray USE FOR SUSPECTED OPIOID OVERDOSE AND CALL 911 Active Not available nicotine (polacrilex) 2 mg gum USE ONE PIECE EVERY HOUR NEEDED FOR NICOTINE CRAVINGS Active Not available nicotine (polacrilex) 4 mg buccal lozeng e TAKE ONE LOZENGE BUCCALLY FOUR TIMES A DAY NEEDED Active Not available nicotine (polacrilex) 4 mg gum TAKE ONE 1 EACH BY MOUTH EVERY THREE HOURS NEEDED Active Not available nicotine 21 mg/24 hr daily transdermal p atch APPLY 1 PATCH DAILY Active Not available olanzapine 10 mg tablet TAKE ONE HALF 0.5 TABLET BY MOUTH EVERY IN THE MORNING AND ONE 1 TABLET AT BEDTIME Completed 05/13/2021 olanzapine 15 mg tablet Active Not avai lable olanzapine 5 mg disintegrating tablet DISSOLVE ONE TABLET UNDER THE TONGUE EVERY DAY NEEDED FOR ANXIETY AGITATIONS Completed 05/13/2021 olanzapine 5 mg tablet TAKE ONE TABLET BY MOUTH EVERY MORNING AT 8AM Completed 05/13/2021 oxybutynin chloride 5 mg tablet TAKE ONE TABLET BY MOUTH TWICE A DAY FOR URINARY DISCOMFORT Active Not available oxybutynin chloride ER 10 mg tablet,exte nded release 24 hr TAKE ONE TABLET BY MOUTH EVERY DAY Completed 05/01 oxybutynin chloride ER 5 mg tablet,exten ded release 24 hr TAKE ONE TABLET BY MOUTH EVERY DAY Completed 05/01 paliperidone ER 3 mg tablet,extended rel ease 24 hr TAKE ONE TABLET BY MOUTH AT BEDTIME FOR ANTIPSYCHOTIC Completed 05/13/2021 paliperidone ER 6 mg tablet,extended rel ease 24 hr TAKE ONE TABLET BY MOUTH EVERY MORNING Completed 05/13/2021 polyethylene glycol 3350 17 gram/dose or al powder USE 17GRAMS IN FLUID BY MOUTH DAILY NEEDED FOR CONSTIPATION Active Not available polymyxin B sulfate 10,000 unit-trimetho prim 1 mg/mL eye drops PLACE 1 DROP IN EACH EYE EVERY 3 HOURS Active Not available prazosin 1 mg capsule TAKE ONE CAPSULE BY MOUTH AT BEDTIME Completed prazosin 2 mg capsule TAKE ONE CAPSULE BY MOUTH AT BEDTIME Completed risperidone 2 mg tablet TAKE ONE TABLET BY MOUTH AT BEDTIME Completed risperidone 3 mg tablet TAKE ONE TABLET BY MOUTH AT BEDTIME Completed sertraline 100 mg tablet TAKE ONE TABLET BY MOUTH EVERY DAY Completed 05/01 sertraline 25 mg tablet TAKE ONE TABLET BY MOUTH EVERY MORNING Completed 05/13/2021 sertraline 50 mg tablet TAKE ONE TABLET BY MOUTH AT BEDTIME Completed Stool Softener-Laxative 8.6 mg-50 mg tab let TAKE TWO TABLETS BY MOUTH TWICE A DAY Active N ot available sulfamethoxazole 800 mg-trimethoprim 160 mg tablet TAKE ONE TABLET BY MOUTH TWICE A DAY Completed Tab-A-Silvestre 400 mcg tablet TAKE ONE TABLET BY MOUTH EVERY DAY Active Not available topiramate 100 mg tablet Take 1 tablet every day by oral route. Active Not available topiramate 25 mg tablet TAKE TWO TABLETS BY MOUTH TWICE A DAY FOR HEADACHE Completed 05/13/2021 topiramate 50 mg tablet TAKE ONE TABLET BY MOUTH TWICE A DAY Completed trazodone 100 mg tablet TAKE ONE TABLET BY MOUTH AT BEDTIME Completed Xulane 150 mcg-35 mcg/24 hr transdermal patch APPLY 1 PATCH PER WEEK FOR 3 WEEKS THEN REMOVE FOR 1 WEEK BACKUP METHOD AT ALL TIMES Active Not available Problems Name Status Onset Date Source Acute Hepatitis C Active 09/27/2017 History Simple Obesity Active 09/27/2017 History Body Mass Index 30+ - Obesity Active 09/27/2017 Hi story Schizophrenia Active 09/27/2017 History Opioid Dependence Active 09/27/2017 History Tobacco Use and Exposure - Finding Active 09/27/2017 History Emotional State Finding Active 09/27/2017 History Iron Deficiency Anemia Secondary to Inadequate Dietary Iron Intake Active 10/18/2017 History Dizziness and Giddiness Active 10/18/2017 History Attention Deficit Hyperactivity Disorder, Combined Type Active 11/30/2017 History Urge Incontinence of Urine Active 11/30/2017 Histo ry Neurological Finding Active 12/21/2017 History Dysuria Active 01/13/2018 History Fibromyalgia Active 01/19/2018 History Cellulitis of Chest Wall Active 02/02/2018 History Chronic Migraine without Aura Active 03/14/2019 Hi story Low Back Pain Active 04/24/2019 History Endocrine/metabolic Screening Active 04/24/2019 Hi story Chronic Constipation Active 06/26/2019 History Seizure Active 06/26/2019 History Nondependent Opioid Abuse in Remission Active 9 History Pharyngeal Finding Active 08/08/2019 History Recurrent Umbilical Hernia Active 05/13/2021 Procedures Date Name Performed by Section Information not avai lable Section Information not avai lable Notes: umbilical hernias x2 Results Lab Results Date Name Specimen Result Interpretation Description Value Range Status Address 12/08/2020 Cbc Normal White Blood Count 9.1 10 4.0-10. 0 10 Final [facility]: [address] [place] [address] Normal Red Blood Count 4.31 10 4.00-5.40 10 [facility]: [address] [place] [address] Normal Hemoglobin 12.8 g/dL 12.0-15.5 g/dL [facility]: [address] [place] [address] Normal Hematocrit 39.2 % 36.0-47.0 % [facility]: [address] [place] [address] Normal Mean Corpuscular Volume 91.0 fL 80.0 -96.0 fL [facility]: [address] [place] [address] Normal Mean Corpuscular Hemoglobin 29.7 pg 27.0-33.0 pg [facility]: [address] [place] [address] Normal Mean Corpuscular HGB Conc 32.7 g/dL 32.0-36.5 g/dL [facility]: [address] [place] [address] Normal Red Cell Distribution Width 13.7 % 1 1.5-14.5 % [facility]: [address] [place] [address] Normal Platelet Count, Automated 276 10 150 -450 10 [facility]: [address] [place] [address] Normal Nucleated Red Blood Cell % 0.0 % 0- 0 % [facility]: [address] [place] [address] 12/08/2020 Hepatic Function Panel, Serum Normal AST/SG OT 28 U/L 7-37 U/L [facility]: [address] [place] [address] Normal ALT/SGPT 26 U/L 12-78 U/L [facility]: [address] [place] [address] Normal Alkaline Phosphatase 90 U/L 45-117 U /L [facility]: [address] [facility] Normal Bilirubin,total 0.3 mg/dL 0.2-1.0 mg /dL [facility]: [address] [facility] Normal Bilirubin,direct < 0.1 mg/dL 0.0-0.2 mg/dL [facility]: 0 [facility] High Total Protein 8.4 gm/dL 6.4-8.2 gm/d L [facility]: [address] [facility] Normal Albumin 3.9 gm/dL 3.2-5.2 gm/dL Tiana l [facility]: [address] [facility] Low Albumin/globulin Ratio 0.9 1.2-2. 2 [facility]: [address] [facility] 12/08/2020 BMP, Serum or Plasma Normal Glucose, Fastin g 93 mg/dL 70-100 mg/dL [facility]: [address] [facility] Normal Blood Urea Nitrogen 10 mg/dL 7-18 mg /dL [facility]: 0 [facility] Normal Creatinine for GFR 0.61 mg/dL 0.55-1 .30 mg/dL [facility]: 0 [facility] Normal Glomerular Filtration Rate > 60.0 >6 0 [facility]: 0 [facility] Normal Sodium Level 140 mEq/L 136-145 mEq/L [facility]: 0 [facility] Normal Potassium Serum 4.1 mEq/L 3.5-5.1 mE q/L [facility]: [address] [facility] High Chloride Level 111 mEq/L 98-107 mEq/ L [facility]: [address] [facility] Normal Carbon Dioxide Level 22 mEq/L 21-32 mEq/L [facility]: [address] [facility] Low Anion Gap 7 mEq/L 8-16 mEq/L [facility]: 0 [facility] Normal Calcium Level 9.9 mg/dL 8.5-10.1 mg/ dL [facility]: [address] [facility] 12/08/2020 Ethanol, Blood Normal Ethyl Alcohol (Ethano l) < 0.003 % 0.000- 0.010 % [facility]: [address] [facility] 12/08/2020 Salicylate, Quantitative, Serum Low Sali cylate Level 2.7 mg/dL 5.0-30.0 mg/dL [facility]: [address] [facility] 12/08/2020 Acetaminophen, Serum Low Acetaminophen L evel < 2.0 ug/mL 10.0- 30.0 ug/mL [facility]: [address] [facility] 12/08/2020 TSH, Serum or Plasma Normal Thyroid Stimulating Hormone 1.050 uIU/mL 0.358-3.740 uIU/mL [facility] nter: [address] [facility] 12/08/2020 Drug Screen, Urine High Amphetamines Leve l Urine positive negative [facility]: [address] [facility] Normal Barbiturates Urine negative negative [facility]: [address] [facility] Normal Benzodiazepines Urine negative negat maximiliano [facility]: [address] [facility] High Cannabinoids Urine positive negative [facility]: [address] [facility] Normal Cocaine Metabolite Urine negative ne gative [facility]: [address] [facility] Normal Methadone Urine negative negative Fi nal [facility]: [address] [facility] Normal Opiates Urine negative negative Tiana l [facility]: [address] [facility] Normal Phencyclidine Urine negative negativ e [facility]: [address] [facility] 12/08/2020 Influenza A/B RSV Covid Amp Normal Influenza a Amplification negative negative [facility] nter: [address] [facility] Normal Influenza B Amplification negative n egative [facility]: [address] [facility] Normal RSV Amplification negative negative [facility]: [address] [facility] Normal Sars Covid-19 Amplification negative negative [facility]: [address] [place] [address] 12/07/2020 Istat Chem8+ Panel Normal Istat HCT 38.0 % 38. 0-51.0 % [facility]: [address] [place] [address] High Istat Glucose 111 mg/dL 70-105 mg/dL [facility]: [address] [place] [address] Normal Istat Sodium 138 mEq/L 136-145 mEq/L [facility]: [address] [place] [address] Normal Istat Potassium 3.9 mEq/L 3.5-5.1 mE q/L [facility]: [address] [place] [address] Normal Istat Ca++ 4.7 mg/dL 4.5-5.3 mg/dL [facility]: [address] [place] [address] Normal Istat Chloride 105 mEq/L 98-109 mEq/ L [facility]: [address] [place] [address] Normal Istat CO2 23.0 mm/L 23.0-27.0 mm/L [facility]: [address] [place] [address] Normal Istat BUN 9 mg/dL 8-26 mg/dL [facility]: [address] [place] [address] Normal Istat Creatinine 0.6 mg/dL 0.6-1.3 m g/dL [facility]: [address] [place] [address] 12/07/2020 Ctni Istat Normal Istat Troponin 0.01 NG/m L 0.00-0.08 NG/mL [facility]: [address] [place] [address] 06/02/2020 Cbc Normal White Blood Count 5.8 10 4.0-10. 0 10 [facility]: [address] [place] [address] Low Red Blood Count 3.95 10 4.00-5.40 10 [facility]: [address] [place] [address] Normal Hemoglobin 12.2 g/dL 12.0-15.5 g/dL [facility]: [address] [place] [address] Normal Hematocrit 37.2 % 36.0-47.0 % [facility]: [address] [facility] Normal Mean Corpuscular Volume 94.2 fL 80.0 -96.0 fL [facility]: [address] [facility] Normal Mean Corpuscular Hemoglobin 30.9 pg 27.0-33.0 pg [facility]: [address] [facility] Normal Mean Corpuscular HGB Conc 32.8 g/dL 32.0-36.5 g/dL [facility]: [address] [facility] Normal Red Cell Distribution Width 12.8 % 1 1.5-14.5 % [facility]: [address] [facility] Normal Platelet Count, Automated 195 10 150 -450 10 [facility]: [address] [facility] Normal Nucleated Red Blood Cell % 0.0 % 0- 0 % [facility]: [address] [facility] 06/02/2020 Drug Screen, Urine High Amphetamines Leve l Urine positive negative [facility]: [address] [facility] Normal Barbiturates Urine negative negative [facility]: [address] [facility] Normal Benzodiazepines Urine negative negat maximiliano [facility]: [address] [facility] High Cannabinoids Urine positive negative [facility]: [address] [facility] Normal Cocaine Metabolite Urine negative ne gative [facility]: [address] [facility] High Methadone Urine positive negative Fi nal [facility]: [address] [facility] High Opiates Urine positive negative Tiana l [facility]: [address] [facility] Normal Phencyclidine Urine negative negativ e [facility]: [address] [facility] 06/02/2020 Hepatic Function Panel, Serum High AST/SG OT 58 U/L 7-37 U/L [facility]: [address] [facility] Normal ALT/SGPT 74 U/L 12-78 U/L [facility]: [address] [facility] Normal Alkaline Phosphatase 75 U/L 45-117 U /L [facility]: [address] [facility] Normal Bilirubin,total 0.4 mg/dL 0.2-1.0 mg /dL [facility]: [address] [facility] Normal Bilirubin,direct 0.1 mg/dL 0.0-0.2 m g/dL [facility]: [address] [facility] Normal Total Protein 7.7 gm/dL 6.4-8.2 gm/d L [facility]: [address] [facility] Normal Albumin 3.7 gm/dL 3.2-5.2 gm/dL Tiana l [facility]: 0 [facility] Low Albumin/globulin Ratio 0.9 1.2-2. 2 [facility]: 0 [facility] 06/02/2020 BMP, Serum or Plasma Normal Glucose, Fastin g 82 mg/dL 70-100 mg/dL [facility]: [address] [facility] Normal Blood Urea Nitrogen 7 mg/dL 7-18 mg/ dL [facility]: 0 [facility] Normal Creatinine for GFR 0.71 mg/dL 0.55-1 .30 mg/dL [facility]: [address] [place] [address] Normal Glomerular Filtration Rate > 60.0 >6 0 [facility]: 0 [facility] Normal Sodium Level 139 mEq/L 136-145 mEq/L [facility]: [address] [facility] Normal Potassium Serum 3.6 mEq/L 3.5-5.1 mE q/L [facility]: [address] [facility] High Chloride Level 109 mEq/L 98-107 mEq/ L [facility]: [address] [facility] Normal Carbon Dioxide Level 24 mEq/L 21-32 mEq/L [facility]: 0 [facility] Low Anion Gap 6 mEq/L 8-16 mEq/L [facility]: 0 [facility] Normal Calcium Level 8.8 mg/dL 8.5-10.1 mg/ dL [facility]: [address] [facility] 06/02/2020 Ethanol, Blood Normal Ethyl Alcohol (Ethano l) < 0.003 % 0.000- 0.010 % [facility]: [address] [facility] 06/02/2020 Salicylate, Quantitative, Serum Low Salicylate Level < 1.7 mg/dL 5.0-30.0 mg/dL [facility] nter: [address] [facility] 06/02/2020 Acetaminophen, Serum Low Acetaminophen L evel < 2.0 ug/mL 10.0- 30.0 ug/mL [facility]: [address] [facility] 06/02/2020 TSH, Serum or Plasma Normal Thyroid Stimulating Hormone 1.690 uIU/mL 0.358-3.740 uIU/mL [facility] nter: [address] [facility] 06/02/2020 beta-HCG, Qualitative, Serum or Plasma Normal HCG, Serum Qualitative negative negative [facility] Center: [address] [facility] 06/01/2020 CBC W/ Auto Diff Normal White Blood Count 5.6 10 4.0-10.0 10 [facility]: 0 [facility] Normal Red Blood Count 4.07 10 4.00-5.40 10 [facility]: [address] [facility] Normal Hemoglobin 12.4 g/dL 12.0-15.5 g/dL [facility]: 0 [facility] Normal Hematocrit 37.8 % 36.0-47.0 % [facility]: 0 [facility] Normal Mean Corpuscular Volume 92.9 fL 80.0 -96.0 fL [facility]: [address] [facility] Normal Mean Corpuscular Hemoglobin 30.5 pg 27.0-33.0 pg [facility]: [address] [facility] Normal Mean Corpuscular HGB Conc 32.8 g/dL 32.0-36.5 g/dL [facility]: 0 [facility] Normal Red Cell Distribution Width 12.8 % 1 1.5-14.5 % [facility]: [address] [facility] Normal Platelet Count, Automated 205 10 150 -450 10 [facility]: [address] [facility] Normal Neutrophils % 39.6 % 36.0-66.0 % [facility]: [address] [facility] High Lymph % 48.6 % 24.0-44.0 % Final [facility]: [address] [facility] High Benson % 8.0 % 0.0-5.0 % Final [facility]: [address] [facility] Normal Eos % 2.7 % 0.0-3.0 % [facility]: 0 [facility] Normal Baso % 0.9 % 0.0-1.0 % [facility]: [address] [facility] Normal Immature Granulocyte % 0.2 % 0-3.0 % [facility]: [address] [facility] Normal Nucleated Red Blood Cell % 0.0 % 0- 0 % [facility]: [address] [facility] Normal Neutrophils # 2.2 10 1.5-8.5 10 [facility]: [address] [facility] Normal Lymph # 2.7 10 1.5-5.0 10 [facility]: [address] [facility] Normal Benson # 0.5 10 0.0-0.[address] [facility]: [address] [facility] Normal Eos # 0.2 10 0.0-0.5 10 [facility]: [address] [facility] Normal Baso # 0.1 10 0.0-0.[address] [facility]: 0 [facility] 06/01/2020 Hepatic Function Panel, Serum High AST/SG OT 61 U/L 7-37 U/L [facility]: [address] [facility] High ALT/SGPT 89 U/L 12-78 U/L [facility]: [address] [facility] Normal Alkaline Phosphatase 80 U/L 45-117 U /L [facility]: [address] [facility] Normal Bilirubin,total 0.3 mg/dL 0.2-1.0 mg /dL [facility]: [address] [facility] Normal Bilirubin,direct 0.1 mg/dL 0.0-0.2 m g/dL [facility]: [address] [facility] High Total Protein 8.4 gm/dL 6.4-8.2 gm/d L [facility]: [address] [facility] Normal Albumin 4.2 gm/dL 3.2-5.2 gm/dL Tiana l [facility]: 0 [facility] Low Albumin/globulin Ratio 1.0 1.2-2. 2 [facility]: 0 [facility] 06/01/2020 BMP, Serum or Plasma High Glucose, Fastin g 129 mg/dL 70-100 mg/dL [facility]: [address] [facility] Normal Blood Urea Nitrogen 12 mg/dL 7-18 mg /dL [facility]: 0 [facility] Normal Creatinine for GFR 0.83 mg/dL 0.55-1 .30 mg/dL [facility]: [address] [place] [address] Normal Glomerular Filtration Rate > 60.0 >6 0 [facility]: [address] [facility] Normal Sodium Level 136 mEq/L 136-145 mEq/L [facility]: 0 [facility] Normal Potassium Serum 3.6 mEq/L 3.5-5.1 mE q/L [facility]: [address] [facility] Normal Chloride Level 103 mEq/L 98-107 mEq/ L [facility]: 0 [facility] Normal Carbon Dioxide Level 23 mEq/L 21-32 mEq/L [facility]: [address] [facility] Normal Anion Gap 10 mEq/L 8-16 mEq/L [facility]: [address] [facility] Normal Calcium Level 8.8 mg/dL 8.5-10.1 mg/ dL [facility]: [address] [facility] 06/01/2020 Ethanol, Blood Normal Ethyl Alcohol (Ethano l) < 0.003 % 0.000- 0.010 % [facility]: [address] [facility] 06/01/2020 Salicylate, Quantitative, Serum Low Salicylate Level < 1.7 mg/dL 5.0-30.0 mg/dL [facility] nter: [address] [facility] 06/01/2020 Acetaminophen, Serum Low Acetaminophen L evel < 2.0 ug/mL 10.0- 30.0 ug/mL [facility]: 83 0 [facility] 06/01/2020 TSH, Serum or Plasma High Thyroid Stimulating Hormone 4.060 uIU/mL 0.358-3.740 uIU/mL [facility] nter: 830 [facility] 06/01/2020 beta-HCG, Qualitative, Serum or Plasma Normal HCG, Serum Qualitative negative negative [facility] Center: [address] [facility] 06/01/2020 Drug Screen, Urine High Amphetamines Leve l Urine positive negative [facility]: 83 0 [facility] Normal Barbiturates Urine negative negative [facility]: [address] [facility] Normal Benzodiazepines Urine negative negat maximiliano [facility]: [address] [facility] High Cannabinoids Urine positive negative [facility]: [address] [facility] High Cocaine Metabolite Urine positive ne gative [facility]: [address] [facility] High Methadone Urine positive negative Fi nal [facility]: [address] [facility] High Opiates Urine positive negative Tiana l [facility]: [address] [facility] Normal Phencyclidine Urine negative negativ e [facility]: [address] [facility] Past Encounters 05/13/2021 Cellulitis of Right Upper Limb; Seizure; Opioid Dependence; Urge Incontinence of Urine; Tobacco User; Recurrent Umbilical Hernia Julito Hanna MD: [address] [place] [address], Ph. Social History Tobacco Smoking Status Heavy Tobacco Smoker (1 pack per a da y) Vaccine List None recorded. Plan of Care Reminders Provider Appointments None recorded. Lab None recorded. Referral None recorded. Procedures None recorded. Surgeries None recorded. Imaging None recorded. Vitals 05/13/2021 08:20AM ESTABLISHED [id number] Weight Blood Pressure 119 lbs 16 oz 104/73 mm[Hg] 12/12/2019 Height Weight BMI Blood Pressure 61 in 124 lbs 4 oz 23.56 kg/m2 91/57 mm[Hg] 08/08/2019 Height Weight BMI Blood Pressure 61 in 123 lbs 4 oz 23.37 kg/m2 97/65 mm[Hg] 07/11/2019 Height Weight BMI Blood Pressure 61 in 135 lbs 25.60 kg/m2 109/75 mm[Hg] 06/27/2019 Height Weight BMI Blood Pressure 61 in 138 lbs 26.17 kg/m2 126/88 mm[Hg] 06/26/2019 Height Weight BMI Blood Pressure 61 in 137 lbs 25.98 kg/m2 111/82 mm[Hg] 06/13/2019 Height Weight BMI Blood Pressure 61 in 140 lbs 4.96 oz 26.61 kg/m2 125/87 mm[H g] 05/30/2019 Height Weight BMI Blood Pressure 61 in 141 lbs 26.74 kg/m2 115/79 mm[Hg] 05/16/2019 Height Weight BMI Blood Pressure 61 in 138 lbs 26.17 kg/m2 125/89 mm[Hg] 05/02/2019 Height Weight BMI Blood Pressure 61 in 140 lbs 8 oz 26.64 kg/m2 125/88 mm[Hg] 04/24/2019 Height Weight BMI Blood Pressure 61 in 141 lbs 8 oz 26.83 kg/m2 103/72 mm[Hg] 04/18/2019 Height Weight BMI Blood Pressure 61 in 146 lbs 27.69 kg/m2 138/87 mm[Hg] 04/11/2019 Height Weight BMI Blood Pressure 61 in 142 lbs 8.96 oz 27.03 kg/m2 109/84 mm[H g] 04/04/2019 Height Weight BMI Blood Pressure 61 in 141 lbs 6.08 oz 26.81 kg/m2 110/74 mm[H g] 03/28/2019 Height Weight BMI Blood Pressure 61 in 138 lbs 8 oz 26.26 kg/m2 104/72 mm[Hg] 03/21/2019 Height Weight BMI Blood Pressure 61 in 143 lbs 4 oz 27.16 kg/m2 129/85 mm[Hg] 03/14/2019 Height Weight BMI 61 in 138 lbs 2.08 oz 26.19 kg/m2
--- OUTSIDE RECORDS SUMMARY | 2021-05-19 18:47 | CCD | Continuity of Care Document ---
Author Author [facility] Organization [facility] Address Unknown Phone Unavailable Care Team Providers Care Dental Mechanic Name Role Phone Carolina Huntley MD Unavailable Unavailable Allergies, Adverse Reactions, Alerts Substance Reaction Status Criticality No Known Allergies Active No Information Medications Medication Instructions Dosage Effective Dates (start - stop) Sta tus Comments Suboxone 8 mg-[address] 1 film by sub lingual route every day allow to dissolve slowly in mouth without chewing or swallowing 1.00 film - Active buspirone 30 mg tablet - Active Problems Condition Effective Dates (start - stop) Clinical Status C omments Unspecified viral hepatitis C without hepatic coma Contact with and (suspected) exposure to viral hepatitis Trichomonal vulvovaginitis Encounter for test, result negative Encounter for oth general cnsl and advice on contraception Encntr screen for infections w sexl mode of transmiss Encounter for screening for human immunodeficiency virus Human immunodeficiency virus [HIV] counseling Contact w and exposure to infect w a sexl mode of transmiss Other sex counseling Urgency of urination Frequency of micturition Other specified noninflammatory disorders of vagina Human immunodeficiency virus [HIV] counseling Other sex counseling Encounter for oth general cnsl and advice on contraception Encounter for test, result negative Encntr screen for infections w sexl mode of transmiss High risk heterosexual behavior Enctr for init prescription of patch hormonal contracep dev 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) w/o abn findings Encounter for oth screening for malignant neoplasm of breast HIV 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 Exam, Routine WWE STI Screening BCM Other, Start Contraceptive method surveillance - Viral hepatitis C - Active Atypical squamous cells of undetermined significance on cervical Papanicolaou smear - Active Hypertensive disorder - Active Migraine - Active Seizure - Active Procedures Procedure Date No Information Results Test Name Date and Time Measure Units Reference Range Abnormal Flag St atus Comments No Information Advance Directives Directive Yes / No Effective Date File Name No Information Encounters Encounter Description Practice Location Reason(s) For Visit Diagnose s Date Provider Providers Copied on Encounter [facility], [address] [place] [address], [id number], tel:[phone] MARELY Jimenez No Information Audi Carolina. [address] [place], [place], [id number], [place]. tel:[phone] [facility], [address] [place] [address], [id number], [place] tel:[phone] [facility] [place] Unspecified viral h epatitis C without hepatic comaContact with and (suspected) exposure to viral hepatitis Román Carolina. [address] [place], [place], [id number], [place]. tel:[phone] [facility], [address] [place], [place], [id number], [place] tel:[phone] [facility] [place] Trichomonal vulvovaginitis Román Carolina. [address] [place], [place], [id number], [place]. tel:[phone] [facility], [address] [place], [place], [id number], [place] tel:[phone] [facility] [place] Encounter for pregn edmund test, result negativeEncounter for oth general cnsl and advice on contraceptionEncntr screen for infections w sexl mode of transmissEncounter for screening for human immunodeficiency virusHuman immunodeficiency virus [HIV] counselingContact w and exposure to infect w a sexl mode of transmissOther sex counselingUrgency of urinationFrequency of micturitionOther specified noninflammatory disorders of vagina Román Carolina. [address] [place], [place], [id number], [place]. tel:[phone] Referring Provider: Gina France, [address] [place], [place], [id number]. tel:[phone] [facility], [address] [place], [place], [id number], [place] tel:[phone] [facility] [place] Human immunodeficie ncy virus [HIV] counselingOther sex counselingEncounter for oth general cnsl and advice on contraceptionEncounter for test, result negativeEncntr screen for infections w sexl mode of transmissHigh risk heterosexual behaviorEnctr for init prescription of patch hormonal contracep dev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) w/o abn findingsEncounter for oth screening for malignant neoplasm of breast Aissatou Anguiano. [address] [place], [place], [id number], [place]. tel:[phone] Referring Provider: Annmarie Reyez, [address] [place], [place], [id number]. tel:[phone] [facility], [address] [place] [address], [id number], [place] tel:[phone] [facility] [place] HIV CounselingGYN E xam, Routine WWESTI ScreeningBCM Other, Start Nolberto Moreno. [address] [place], [place], [id number], [place]. tel:[phone] [facility], [address] [place] [address], [id number], [place] tel:[phone] [facility] [place] Contraceptive method surve illance Jon Juan. [address] [place], [place], [id number], [place]. tel:[phone] [facility], [address] [place] [address], [id number], [place] tel:[phone] [facility] [place] No Information Melissa Rowe. [address] [facility], [place], [place], [id number], [place]. tel:[phone] Family History Family Member Diagnosis Age At Onset Family history of Hepatitis Family history of Depression No family history of Myocardial infarcti on Family history of Alcoholism Father Hepatitis C Family history of Mental illness Family history of No family history of S troke Immunizations Vaccine Date Status Comments measles, mumps and rubella virus vaccine adminis tered Note: dates unknown.Invalid documented admin date was NULL/NULL/1984. ; Source: Source Unspecified tetanus toxoid, adsorbed administered Note: d ates unknown.Invalid documented admin date was NULL/NULL/1984. ; Source: Source Unspecified Payers Payer name Insurance type Covered constitution party ID Authorization(s ) No Information Social History Type Description Quantity Date Captured Comments Alcohol Use Details Unknown Caffeine Use Details Unknown Tobacco Use Status Smoking Status Smoker, current status unknown 21 Sex Female Vital Signs Date / Time: Height Weight BMI Pulse Rate Blood Pressure Temperatu re Respiratory Rate Body Surface Area Head Circumference BMI percentile Pulse Ox In haled Ox No Information Chief Complaint And Reason For Visit No Information Reason For Referral Reason For Referral No Information Plan Of Treatment Date Type Action Status Goal Tobacco cessation counseling com pleted Goal Tobacco cessation counseling com pleted Referral Ordered: Referrals: Infectious Disease. Location: [place]. Evaluate and treat Appointment date/timeframe: 2 Months ordered History Of Present Illness Encounter Date Complaint History Of Present I llness No Information Functional Status Date Functional Assessment No Information Medications Administered Medication Instructions Dosage Effective Dates (start - stop) Sta tus Comments No Information Instructions Date Instruction Additional Informati on No Information Assessments Type Assessment Date No Information Goals Health Concern Goal Type Priority Status Date No Information Medical Equipment Description Device [place] Device Identifier Effective Jean es (start - stop) Status No Information Mental Status Date Cognitive Assessment No Information Health Concerns Observation Date No Information Concern Status Date No Information Physical Examination Exam Findings Details No Information
--- OUTSIDE RECORDS SUMMARY | 2021-05-19 18:49 | CCD ---
Author Author [facility] Organization [facility] Address Unknown Phone Unavailable Care Team Providers Care Water Maintenance Supervisor Name Role Phone Vicki Hanna MD Unavailable Unavailable Vicki Hanna MD Unavailable Unavailable Vicki Hanna MD Unavailable Unavailable Vicki Hanna MD Unavailable Unavailable Vicki Hanna MD Unavailable Unavailable Vicki Hanna MD Unavailable Unavailable Vicki Hanna MD Unavailable Unavailable Vicki Hanna MD Unavailable Unavailable Vicki Hanna MD Unavailable Unavailable Vicki Hanna MD Unavailable Unavailable Vicki Hanna MD Unavailable Unavailable Vicki Hanna MD Unavailable Unavailable Vicki Hanna MD Unavailable Unavailable Vicki Hanna MD Unavailable Unavailable Vicki Hanna MD Unavailable Unavailable Vicki Hanna MD Unavailable Unavailable Vicki Hanna MD Unavailable Unavailable Vicki Hanna MD Unavailable Unavailable Vicki Hanna MD Unavailable Unavailable Vicki Hanna MD Unavailable Unavailable Vicki Hanna MD Unavailable Unavailable Vicki Hanna MD Unavailable Unavailable Vicki Hanna MD Unavailable Unavailable Vicki Hanna MD Unavailable Unavailable Vicki Hanna MD Unavailable Unavailable Vicki Hanna MD Unavailable Unavailable Vicki Hanna MD Unavailable Unavailable Vicki Hanna MD Unavailable Unavailable Vicki Hanna MD Unavailable Unavailable Vicki Hanna MD Unavailable Unavailable Vicki Hanna MD Unavailable Unavailable Vicki Hanna MD Unavailable Unavailable Vicki Hanna MD Unavailable Unavailable Vicki Hanna MD Unavailable Unavailable Vicki Hanna MD Unavailable Unavailable Vicki Hanna MD Unavailable Unavailable Vicki Hanna MD Unavailable Unavailable Vicki Hanna MD Unavailable Unavailable Vicki Hanna MD Unavailable Unavailable Vicki Hanna MD Unavailable Unavailable Vicki Hanna MD Unavailable Unavailable Vicki Hanna MD Unavailable Unavailable Vicki Hanna MD Unavailable Unavailable Vicki Hanna MD Unavailable Unavailable Vicki Hanna MD Unavailable Unavailable Vicki Hanna MD Unavailable Unavailable Vicki Hanna MD Unavailable Unavailable Vicki Hanna MD Unavailable Unavailable Vicki Hanna MD Unavailable Unavailable Vicki Hanna MD Unavailable Unavailable Vicki Hanna MD Unavailable Unavailable Vicki Hanna MD Unavailable Unavailable Vicki Hanna MD Unavailable Unavailable Vicki Hanna MD Unavailable Unavailable Vicki Hanna MD Unavailable Unavailable Vicki Hanna MD Unavailable Unavailable Vicki Hanna MD Unavailable Unavailable Vciki Hanna MD Unavailable Unavailable Vicki Hanna MD Unavailable Unavailable Vicki Hanna MD Unavailable Unavailable Vicki Hanna MD Unavailable Unavailable Vicki Hanna MD Unavailable Unavailable Vicki Hanna MD Unavailable Unavailable Vicki Hanna MD Unavailable Unavailable Vicki Hanna MD Unavailable Unavailable Vicki Hanna MD Unavailable Unavailable Vicki Hanna MD Unavailable Unavailable Vicki Hanna MD Unavailable Unavailable Vicki Hanna MD Unavailable Unavailable Vicki Hanna MD Unavailable Unavailable Vicki Hanna MD Unavailable Unavailable Vicki Hanna MD Unavailable Unavailable Vicki Hanna MD Unavailable Unavailable Vicki Hanna MD Unavailable Unavailable Vicki Hanna MD Unavailable Unavailable Vicki Hanna MD Unavailable Unavailable Vicki Hanna MD Unavailable Unavailable Vicki Hanna MD Unavailable Unavailable Vicki Hanna MD Unavailable Unavailable Vicki Hanna MD Unavailable Unavailable Vicki Hanna MD Unavailable Unavailable Vicki Hanna MD Unavailable Unavailable Vicki Hnana MD Unavailable Unavailable Vicki Hanna MD Unavailable Unavailable Vicki Hanna MD Unavailable Unavailable Vicki Hanna MD Unavailable Unavailable Vicki Hanna MD Unavailable Unavailable Vicki Hanna MD Unavailable Unavailable Vicki Hanna MD Unavailable Unavailable Vicki Hanna MD Unavailable Unavailable Vicki Hanna MD Unavailable Unavailable Vicki Hanna MD Unavailable Unavailable Vicki Hanna MD Unavailable Unavailable Chowdhury, DO Harmandeep DO Unavailable Unavailable ABI SANCHEZ MD Unavailable Unavailable ABI SANCHEZ MD Unavailable Unavailable ABI SANCHEZ MD Unavailable Unavailable ABI SANCHEZ MD Unavailable Unavailable ABI SANCHEZ MD Unavailable Unavailable ABI SANCHEZ MD Unavailable Unavailable ABI SANCHEZ MD Unavailable Unavailable ABI SANCHEZ MD Unavailable Unavailable ABI SANCHEZ MD Unavailable Unavailable ABI SANCHEZ MD Unavailable Unavailable ABI SANCHEZ MD Unavailable Unavailable ABI SANCHEZ MD Unavailable Unavailable ABI SANCHEZ MD Unavailable Unavailable Green ENVIRONMENTAL CHANGE ANALYST ENVIRONMENTAL CHANGE ANALYST, Gina Unavailable Unavailable Green ENVIRONMENTAL CHANGE ANALYST ENVIRONMENTAL CHANGE ANALYST, Gina Unavailable Unavailable Green ENVIRONMENTAL CHANGE ANALYST ENVIRONMENTAL CHANGE ANALYST, Gina Unavailable Unavailable Green ENVIRONMENTAL CHANGE ANALYST ENVIRONMENTAL CHANGE ANALYST, Gina Unavailable Unavailable Green ENVIRONMENTAL CHANGE ANALYST ENVIRONMENTAL CHANGE ANALYST, Gina Unavailable Unavailable Michael Castañeda MD Unavailable Unavailable Michael Castañeda MD Unavailable Unavailable Neli Huntley MD Unavailable Unavailable Neli Huntley MD Unavailable Unavailable Neli Huntley MD Unavailable Unavailable Neli Huntley MD Unavailable Unavailable Neli Huntley MD Unavailable Unavailable Neli Huntley MD Unavailable Unavailable Neli Huntley MD Unavailable Unavailable Neli Huntley MD Unavailable Unavailable Neli Huntley MD Unavailable Unavailable Neli Huntley MD Unavailable Unavailable Neli Huntley MD Unavailable Unavailable Neli Huntley MD Unavailable Unavailable Neli Huntley MD Unavailable Unavailable Neli Huntley MD Unavailable Unavailable Neli Huntley MD Unavailable Unavailable Neli Huntley MD Unavailable Unavailable Neli Huntley MD Unavailable Unavailable Neli Huntley MD Unavailable Unavailable Neli Huntley MD Unavailable Unavailable Neli Huntley MD Unavailable Unavailable Neli Huntley MD Unavailable Unavailable Neli Huntley MD Unavailable Unavailable Neli Huntley MD Unavailable Unavailable Neli Huntley MD Unavailable Unavailable Neli Huntley MD Unavailable Unavailable Neli Huntley MD Unavailable Unavailable Neli Huntley MD Unavailable Unavailable Neli Huntley MD Unavailable Unavailable Neli Huntley MD Unavailable Unavailable Neli Huntley MD Unavailable Unavailable Neli Huntley MD Unavailable Unavailable Neli Huntley MD Unavailable Unavailable Neli Huntley MD Unavailable Unavailable Neli Huntley MD Unavailable Unavailable Neli Huntley MD Unavailable Unavailable Neli Huntley MD Unavailable Unavailable Audi, Neli Figueroa MD Unavailable Unavailable Audi, Neli Figueroa MD Unavailable Unavailable Audi, Neli Figueroa MD Unavailable Unavailable Audi, Neli Figueroa MD Unavailable Unavailable Audi, Neli Figueroa MD Unavailable Unavailable Audi, Neli Figueroa MD Unavailable Unavailable Audi, Neli Figueroa MD Unavailable Unavailable Audi, Neli Figueroa MD Unavailable Unavailable Audi, Neli Figueroa MD Unavailable Unavailable Audi, Neli Figueroa MD Unavailable Unavailable Audi, Neli Figueroa MD Unavailable Unavailable Audi, Neli Figueroa MD Unavailable Unavailable Audi, Neli Figueroa MD Unavailable Unavailable Audi, Neli Figueroa MD Unavailable Unavailable Audi, Neli Figueroa MD Unavailable Unavailable Audi, Neli Figueroa MD Unavailable Unavailable Auid, Neli Figueroa MD Unavailable Unavailable Audi, Neli Figueroa MD Unavailable Unavailable Audi, Neli Figueroa MD Unavailable Unavailable Audi, Neli Figueroa MD Unavailable Unavailable Audi, Neli Figueroa MD Unavailable Unavailable Audi, Neli Figueroa MD Unavailable Unavailable Audi, Neli Figueroa MD Unavailable Unavailable Audi, Neli Figueroa MD Unavailable Unavailable Audi, Neli Figueroa MD Unavailable Unavailable Audi, Neil Figueroa MD Unavailable Unavailable Audi, Neli Figueroa MD Unavailable Unavailable Audi, Neli Figueroa MD Unavailable Unavailable Audi, Neli Figueroa MD Unavailable Unavailable Audi, Neli Figueroa MD Unavailable Unavailable Audi, Neli Figueroa MD Unavailable Unavailable Audi, Neli Figueroa MD Unavailable Unavailable Audi, Neli Figueroa MD Unavailable Unavailable Audi, Neli Figueroa MD Unavailable Unavailable Audi, Neli Figueroa MD Unavailable Unavailable Audi, Neli Figueroa MD Unavailable Unavailable Audi, Neli Figueroa MD Unavailable Unavailable Audi, Neli Figueroa MD Unavailable Unavailable Audi, Neli Figueroa MD Unavailable Unavailable Audi, Neli Figueroa MD Unavailable Unavailable Audi, Neli Figueroa MD Unavailable Unavailable Audi, Neli Figueroa MD Unavailable Unavailable Audi, Neli Figueroa MD Unavailable Unavailable Audi, Neli Figueroa MD Unavailable Unavailable Audi, Neli Figueroa MD Unavailable Unavailable Audi, Neli Figueroa MD Unavailable Unavailable ASARANNELISE MD Unavailable Unavailable ASARANNELISE MD Unavailable Unavailable ASARANNELISE MD Unavailable Unavailable ASAR, ANNELISE BARON Unavailable Unavailable ASAR, ANNELISE BARON Unavailable Unavailable ASAR, ANNELISE BARON Unavailable Unavailable ASAR, ANNELISE BARON Unavailable Unavailable Willard, R Eder PA Unavailable Unavailable Willard, R Eder PA Unavailable Unavailable Dwello PA PA, Latanya Unavailable Unavailable Dwello PA PA, Latanya Unavailable Unavailable Dwello PA PA, Latanya Unavailable Unavailable Dwello PA PA, Latanya Unavailable Unavailable Dwello PA PA, Latanya Unavailable Unavailable Dwello PA PA, Latanya Unavailable Unavailable Dwello PA PA, Latanya Unavailable Unavailable Michael Castañeda MD Unavailable Unavailable Micheal Gray MD Unavailable Unavailable Katherine Huntley MD Unavailable Unavailable Katherine Huntley MD Unavailable Unavailable Vicki Hanna MD Unavailable Unavailable Vicki Hanna MD Unavailable Unavailable Vicki Hanna MD Unavailable Unavailable Vicki Hanna MD Unavailable Unavailable Vicki Hanna MD Unavailable Unavailable Vicki Hanna MD Unavailable Unavailable Vicki Hanna MD Unavailable Unavailable Vicki Hanna MD Unavailable Unavailable Vicki Hanna MD Unavailable Unavailable Vicki Hanna MD Unavailable Unavailable Vicki Hanna MD Unavailable Unavailable Vicki Hanna MD Unavailable Unavailable Vicki Hanna MD Unavailable Unavailable Vicki Hanna MD Unavailable Unavailable Vicki Hanna MD Unavailable Unavailable Vicki Hanna MD Unavailable Unavailable Vicki Hanna MD Unavailable Unavailable Vicki Hanna MD Unavailable Unavailable Vicki Hanna MD Unavailable Unavailable Vicki Hanna MD Unavailable Unavailable Vicki Hanna MD Unavailable Unavailable Vicki Hanna MD Unavailable Unavailable Vicki Hanna MD Unavailable Unavailable Vicki Hanna MD Unavailable Unavailable Vicki Hanna MD Unavailable Unavailable Vicki Hanna MD Unavailable Unavailable Vicki Hanna MD Unavailable Unavailable Vicki Hanna MD Unavailable Unavailable Vicki Hanna MD Unavailable Unavailable Vicki Hanna MD Unavailable Unavailable Vicki Hanna MD Unavailable Unavailable Vicki Hanna MD Unavailable Unavailable Vicki Hanna MD Unavailable Unavailable Vicki Hanna MD Unavailable Unavailable Vicki Hanna MD Unavailable Unavailable Vicki Hanna MD Unavailable Unavailable Vicki Hanna MD Unavailable Unavailable Vicki Hanna MD Unavailable Unavailable Vicki Hanna MD Unavailable Unavailable Vicki Hanna MD Unavailable Unavailable Vicki Hanna MD Unavailable Unavailable Vicki Hanna MD Unavailable Unavailable Vicki Hanna MD Unavailable Unavailable Vicki Hanna MD Unavailable Unavailable Vicki Hanna MD Unavailable Unavailable Vicki Hanna MD Unavailable Unavailable Vicki Hanna MD Unavailable Unavailable Vicki Hanna MD Unavailable Unavailable Vicki Hanna MD Unavailable Unavailable Vicki Hanna MD Unavailable Unavailable Vicki Hanna MD Unavailable Unavailable Vicki Hanna MD Unavailable Unavailable Vicki Hanna MD Unavailable Unavailable Vicki Hanna MD Unavailable Unavailable Vicki Hanna MD Unavailable Unavailable Vicki Hanna MD Unavailable Unavailable Vicki Hanna MD Unavailable Unavailable Vicki Hanna MD Unavailable Unavailable Vicki Hanna MD Unavailable Unavailable Vicki Hanna MD Unavailable Unavailable Vicki Hanna MD Unavailable Unavailable Vicki Hanna MD Unavailable Unavailable Vicik Hanna MD Unavailable Unavailable Vicki Hanna MD Unavailable Unavailable Hanna, D Julito MD Unavailable Unavailable Hanna, D Julito MD Unavailable Unavailable Hanna, D Julito MD Unavailable Unavailable Hanna, D Julito MD Unavailable Unavailable Hanna, D Julito MD Unavailable Unavailable Hanna, D Julito MD Unavailable Unavailable Hanna, D Julito MD Unavailable Unavailable Hanna, D Julito MD Unavailable Unavailable Hanna, D Julito MD Unavailable Unavailable Hanna, D Julito MD Unavailable Unavailable Hanna, D Julito MD Unavailable Unavailable Hanna, D Julito MD Unavailable Unavailable Hanna, D Julito MD Unavailable Unavailable Hanna, D Julito MD Unavailable Unavailable Hanna, D Julito MD Unavailable Unavailable Hanna, D Julito MD Unavailable Unavailable Hanna, D Julito MD Unavailable Unavailable Hanna, D Julito MD Unavailable Unavailable Hanna, D Julito MD Unavailable Unavailable Hanna, D Julito MD Unavailable Unavailable Hanna, D Julito MD Unavailable Unavailable Hanna, D Julito MD Unavailable Unavailable Hanna, D Julito MD Unavailable Unavailable Hanna, D Julito MD Unavailable Unavailable Hanna, D Julito MD Unavailable Unavailable Hanna, D Julito MD Unavailable Unavailable Hanna, D Julito MD Unavailable Unavailable Hanna, D Julito MD Unavailable Unavailable Hanna, D Julito MD Unavailable Unavailable Re-disclosure Warning The records that you are about to access may contain information from federally-assisted alcohol or drug abuse programs. If such information is present, then the following federally mandated warning applies: This information has been disclosed to you from records protected by federal confidentiality rules (42 CFR part 2). The federal rules prohibit you from making any further disclosure of this information unless further disclosure is expressly permitted by the written consent of the person to whom it pertains or as otherwise permitted by 42 CFR part 2. A general authorization for the release of medical or other information is NOT sufficient for this purpose. The Federal rules restrict any use of the information to criminally investigate or prosecute any alcohol or drug abuse patient.The records that you are about to access may contain highly sensitive health information, the redisclosure of which is protected by Article 27-F of the [facility] Public Health law. If you continue you may have access to information: Regarding HIV / AIDS; Provided by facilities licensed or operated by the [facility] Office of Mental Health; or Provided by the [facility] Office for People With Developmental Disabilities. If such information is present, then the following [facility] mandated warning applies: This information has been disclosed to you from confidential records which are protected by state law. State law prohibits you from making any further disclosure of this information without the specific written consent of the person to whom it pertains, or as otherwise permitted by law. Any unauthorized further disclosure in violation of state law may result in a fine or snf sentence or both. A general authorization for the release of medical or other information is NOT sufficient authorization for further disc losure. Allergies and Adverse Reactions Type Description Substance Reaction Status Data Source(s ) Propensity to adverse reactions Propensity to adverse reacti ons No Known Drug Allergies [facility] . Drug allergy Drug allergy No Known Allergies [facility] Family History Family Member Name Family Member Gender Family Member Status Date o f Status Description Data Source(s) Unknown Male Diagnosis 01/22/2014 12:00:00 AM EDT [facility] ([facility]) Encounters Encounter Providers Location Date Indications Data Source(s ) Julito Hanna MD: [address] [place] [id number], Ph. Attender: Julito Hanna MD [facility] Medical 05/13/2021 12:00:00 AM EDT [facility] ([facility]) Attender: Carolina Huntley MD [facility] 0 04/14/2021 01:46:00 PM EDT - 04/14/2021 01:46:00 PM EDT [facility] ([facility]) Preadmit Attender: Dorie Huntley MD [facility] 0 02/23/2021 12:25:00 AM EDT - 02/23/2021 12:25:00 AM EDT [facility] Discharge cancelled. Disregard status an d discharged date. Inpatient Attender: Annelise Savage nder: ANNELISE GRAY MDAdmitter: ANNELISE GRAY MD [facility] 01/27/2021 01:41:00 PM EDT - 02/24/2021 10:00:00 AM EDT PSYCHOACTIVE SUBSTANCE DEPENDENCE [facility] PSYCHOACTIVE SUBSTANCE DEPENDENCE Patient discharged. Inpatient Attender: Kena Chowdhury DOAdmitter: Raul Chowdhury DO SURG-MED 01/14/2021 10:13:00 AM EDT - 01/18/2021 12:43:00 PM EDT [facility]. Patient discharged. Inpatient Attender: Kena Chowdhury DOAdmitter: Raul Chowdhury DO SURG-MED 01/14/2021 10:13:00 AM EDT - 01/18/2021 12:43:00 PM EDT [facility]. V Attender: Kena Chowdhury DOAdmitter: Raul Chowdhury DO SURG-MED 01/13/2021 05:23:[address] [facility] Patient admitted. Outpatient Attender: ABI SANCHEZ MD SURG-LAB 01/13/2021 04:01: [address] [facility] Attender: Carolina Jiemnez 0 11/03/2020 11:58:00 AM EDT - 11/03/2020 11:58:00 AM EDT [facility] ([facility]) Attender: Carolina Jimenez 0 10/15/2020 02:33:00 PM EDT - 10/15/2020 02:33:00 PM EDT [facility] ([facility]) Attender: Carolina Hernández 03:02:00 PM EDT - 10/13/2020 03:02:00 PM EDT [facility] ([facility]) Attender: Carolina Hernández 11/2020 01:36:00 PM EST - 10/03/2020 01:36:00 PM EST [facility] ([facility]) Attender: Carolina Jimenez 0 09/26/2020 10:53:00 AM EST - 09/26/2020 10:53:00 AM EST [facility] ([facility]) Attender: Gina France NP ENVIRONMENTAL CHANGE ANALYST MARELY Hernández 0 09/25/2020 09:16:00 AM EST - 09/25/2020 09:16:00 AM EST Contact with and (suspected) exposure to viral hepatitisUnspecified viral hepatitis C without hepatic coma [facility]) Contact with and (suspected) exposure to viral hepatitis Unspecified viral hepatitis C without he patic coma Attender: Gina France NP ENVIRONMENTAL CHANGE ANALYST MARELY Hernández 0 09/22/2020 01:14:00 PM EST - 09/22/2020 01:14:00 PM EST Trichomonal vulvovaginitis [facility] ([facility]) Trichomonal vulvovaginitis OutpatientOFFICE VISIT, EST Attender: Gina Román ENVIRONMENTAL CHANGE ANALYST ENVIRONMENTAL CHANGE ANALYST MARELY Hernández 09/15/2020 02:45:00 PM EST - 09/15/2020 02:45:00 PM EST Other specified noninflammatory disorders of vaginaFrequency of micturitionUrgency of urinationOther sex counselingContact w and exposure to infect w a sexl mode of transmissHuman immunodeficiency virus [HIV] counselingEncounter for screening for human immunodeficiency virusEncntr screen for infections w sexl mode of transmissEncounter for oth general cnsl and advice on contraceptionEncounter for test, result negative [facility] ([facility]) Other specified noninflammatory disorder s of vagina Frequency of micturition Urgency of urination Other sex counseling Contact w and exposure to infect w a sex l mode of transmiss Human immunodeficiency virus [HIV] couns eling Encounter for screening for human immuno deficiency virus Encntr screen for infections w sexl mode of transmiss Encounter for oth general cnsl and advic e on contraception Encounter for test, result neg ative Attender: Latanya Hernández 04/2021 04:00:00 PM EST - 09/09/2020 04:00:00 PM EST [facility] ([facility]) Attender: Latanya Hernández 04/2021 03:58:00 PM EST - 09/09/2020 03:58:00 PM EST [facility] ([facility]) Outpatient Attender: Julito Hanna MD 05/16/2020 04:01:01 PM EDT [facility] Outpatient Attender: Julito Hanna MD 05/16/2020 03:47:00 PM EDT [facility] Attender: Carolina Hernández 04:15:00 PM EDT - 04/30/2020 04:15:00 PM EDT [facility] ([facility]) Emergency Attender: Eder LANDA ttender: Tia Castañeda MDAttender: Tia Castañeda MD [facility] 04/30/2020 01:37:00 PM EDT - 04/30/2020 04:35:00 PM EDT ABDOMINAL PAIN [facility] ABDOMINAL PAIN Patient discharged. Outpatient Attender: Julito PASTRANA 04/23/2020 09:58:01 AM EDT [facility] Inpatient Attender: Annelise Savage nder: ANNELISE GRAY MDAdmitter: ANNELISE GRAY MDConsultant: ANNELISE GRAY MDConsultant: Annelise Gray MD [facility] 04/16/2020 10:19:00 AM EDT - 05/14/2020 11:45:00 AM EDT PSYCHOACTIVE SUBSTANCE DEPENDENCE [facility] PSYCHOACTIVE SUBSTANCE DEPENDENCE Patient discharged. Outpatient Attender: Julito Hanna MD 03/21/2020 07:21:01 AM EDT [facility] Outpatient Attender: Julito Hanna MD 03/20/2020 09:09:02 AM EDT [facility] Medications Medication Brand Name Start Date Product Form Dose Route Admi nistrative Instructions Pharmacy Instructions Status Indications Reaction Description Data Source(s) 2-0.5 mg 05/14/2021 12:00:00 AM EDT film [address] ONE FILM UNDER THE TONGUE EVERY MORNING MAXIMUM DAILY DOSE = 1 PLACE ONE FILM UNDER THE TONGUE EVERY MORNING MAXIMUM DAILY DOSE = 1 SOLD: 05/14/2021 [facility] buspirone hydrochloride 15 MG Oral Tablet BUSPIRONE HCL 05/13/2021 12:00:00 AM EDT tablet 45 TAKE ONE TABLET BY MOUTH THR EE TIMES A DAY TAKE ONE TABLET BY MOUTH THREE TIMES A DAY SOLD: 05/14/2021 [facility] 15 mg 05/13/2021 12:00:00 AM EDT tablet 15 TAKE ONE TABLET BY MOUTH AT BEDTIME TAKE ONE TABLET BY MOUTH AT BEDTIME SOLD: 05/14/2021 [facility] 100 mg 05/13/2021 12:00:00 AM EDT tablet 30 TAKE ONE TABLET BY MOUTH EVERY DAY TAKE ONE TABLET BY MOUTH EVERY DAY SOLD: 05/14/2021 [facility] olanzapine 15 MG Oral Tablet OLANZAPINE 05/13/2021 12:00:00 AM EDT tab let 5 TAKE ONE TABLET BY MOUTH EVERY MORNING TAKE ONE TABLET BY MOUTH EVERY MORNING SOLD: 05/14/2021 [facility] 5 mg 05/13/2021 12:00:00 AM EDT tablet 30 TAKE ONE TABLET BY MOUTH TWICE A DAY FOR URINARY DISCOMFORT TAKE ONE TABLET BY MOUTH TWICE A DAY FOR URINARY DISCOMFORT SOLD: 05/14/2021 [facility] 8-2 mg 05/13/2021 12:00:00 AM EDT film 30 PLACE ONE FILM UNDER THE TONGUE TWICE A DAY MAXIMUM DAILY DOSE = 2 PLACE ONE FILM UNDER THE TONGUE TWICE A DAY MAXIMUM DAILY DOSE = 2 SOLD: 05/14/2021 [facility] 60 mg 05/13/2021 12:00:00 AM EDT capsule 15 TAKE ONE CAPSULE BY MOUTH EVERY MORNING TAKE ONE CAPSULE BY MOUTH EVERY MORNING SOLD: 05/14/2021 [facility] 600 mg 05/13/2021 12:00:00 AM EDT tablet 45 TAKE ONE TABLET BY MOUTH THREE TIMES A DAY TAKE ONE TABLET BY MOUTH THREE TIMES A DAY SOLD: 05/14/2021 [facility] 2 % 05/13/2021 12:00:00 AM EDT ointment 22 APPLY TWO TIMES A DAY TO WOUND ON RIGHT ARM FOR 2 WEEKS APPLY TWO TIMES A DAY TO WOUND ON RIGHT ARM FOR 2 WEEK S SOLD: 05/14/2021 [facility] 4 mg/actuation 05/13/2021 12:00:00 AM EDT spray,non-aerosol 2 SPRAY 1 SPRAY IN NOSTRILS NEEDED SPRAY 1 SPRAY IN NOSTRILS NEEDED SOLD: 05/14/2021 [facility] Cephalexin 500 MG Oral Capsule CEPHALEXIN 05/13/2021 12:00:00 AM EDT capsule 28 TAKE ONE CAPSULE BY MOUTH EVERY 6 HOURS UNTIL GONE OLY E ONE CAPSULE BY MOUTH EVERY 6 HOURS UNTIL GONE SOLD: 05/14/2021 [facility] 15 mg 04/29/2021 12:00:00 AM EDT tablet 15 TAKE ONE TABLET BY MOUTH AT BEDTIME TAKE ONE TABLET BY MOUTH AT BEDTIME SOLD: 04/30/2021 [facility] 600 mg 04/29/2021 12:00:00 AM EDT tablet 45 TAKE ONE TABLET BY MOUTH THREE TIMES A DAY TAKE ONE TABLET BY MOUTH THREE TIMES A DAY SOLD: 04/30/2021 [facility] 8-2 mg 04/29/2021 12:00:00 AM EDT film 30 PLACE ONE FILM UNDER THE TONGUE TWICE A DAY MAXIMUM DAILY DOSE = [address] ONE FILM UNDER THE TONGUE TWICE A DAY MAXIMUM DAILY DOSE = 2 FILMS SOLD: 04/30/2021 [facility] buspirone hydrochloride 15 MG Oral Tablet BUSPIRONE HCL 04/29/2021 12:00:00 AM EDT tablet 45 TAKE ONE TABLET BY MOUTH THR EE TIMES A DAY TAKE ONE TABLET BY MOUTH THREE TIMES A DAY SOLD: 04/30/2021 [facility] 2-0.5 mg 04/29/2021 12:00:00 AM EDT film 15 [address]ACE ONE FILM UNDER THE TONGUE EVERY MORNING MAXIMUM DAILY DOSE = [address] ONE FILM UNDER THE TONGUE EVERY MORNING MAXIMUM DAILY DOSE = 1 FILM SOLD: 04/30/2021 [facility] 60 mg 04/29/2021 12:00:00 AM EDT capsule 15 TAKE ONE CAPSULE BY MOUTH EVERY MORNING TAKE ONE CAPSULE BY MOUTH EVERY MORNING SOLD: 04/30/2021 [facility] olanzapine 15 MG Oral Tablet OLANZAPINE 04/29/2021 12:00:00 AM EDT tab let 15 TAKE ONE TABLET BY MOUTH EVERY MORNING TAKE ONE TABLET BY MOUTH EVERY MORNING SOLD: 04/30/2021 [facility] 4 mg 04/15/2021 12:00:00 AM EDT gum 50 TAKE ONE (1) EACH BY MOUTH EVERY THREE HOURS, NEEDED TAKE ONE (1) EACH BY MOUTH EVERY THREE HOURS, NEEDE D SOLD: 04/16/2021 [facility] olanzapine 10 MG Oral Tablet OLANZAPINE 04/15/2021 12:00:00 AM EDT tab let 22 TAKE ONE HALF (0.5) TABLET BY MOUTH EVERY IN THE MORNING AND ONE (1) TABLET AT BEDTIME TAKE ONE HALF (0.5) TABLET BY MOUTH EVER Y IN THE MORNING AND ONE (1) TABLET AT BEDTIME SOLD: 04/16/2021 [facility] buspirone hydrochloride 15 MG Oral Tablet BUSPIRONE HCL 04/15/2021 12:00:00 AM EDT tablet 45 TAKE ONE TABLET BY MOUTH THR EE TIMES A DAY TAKE ONE TABLET BY MOUTH THREE TIMES A DAY SOLD: 04/16/2021 [facility] 600 mg 04/15/2021 12:00:00 AM EDT tablet 45 TAKE 1 TABLET BY MOUTH THREE TIMES A DAY TAKE 1 TABLET BY MOUTH THREE TIMES A DAY SOLD: 04/16/2021 [facility] 8-2 mg 04/15/2021 12:00:00 AM EDT film 30 [address] ONE FILM UNDER THE TONGUE TWICE A DAY MAXIMUM DAILY DOSE = [address] ONE FILM UNDER THE TONGUE TWICE A DAY MAXIMUM DAILY DOSE = 2 FILMS SOLD: 04/16/2021 [facility] 30 mg 04/15/2021 12:00:00 AM EDT tablet 15 TAKE ONE TABLET BY MOUTH AT BEDTIME TAKE ONE TABLET BY MOUTH AT BEDTIME SOLD: 04/16/2021 [facility] 60 mg 04/15/2021 12:00:00 AM EDT capsule 15 TAKE ONE (1) CAPSULE BY MOUTH EVERY MORNING TAKE ONE (1) CAPSULE BY MOUTH EVERY MORNING SOLD: 04/16/2021 [facility] 1 mg 03/30/2021 12:00:00 AM EDT capsule 15 TAKE ONE CAPSULE BY MOUTH AT BEDTIME TAKE ONE CAPSULE BY MOUTH AT BEDTIME SOLD: 03/30/2021 [facility] 4 mg 03/30/2021 12:00:00 AM EDT gum 110 CHEW ONE PIECE OF GUM BUCCALLY EVERY 3 HOURS NEEDED CHEW ONE PIECE OF GUM BUCCALLY EVERY 3 HOURS NEEDED SOLD: 03/30/2021 [facility] buspirone hydrochloride 15 MG Oral Tablet BUSPIRONE HCL 03/30/2021 12:00:00 AM EDT tablet 45 TAKE ONE TABLET BY MOUTH THR EE TIMES A DAY TAKE ONE TABLET BY MOUTH THREE TIMES A DAY SOLD: 03/30/2021 [facility] Risperidone 2 MG Oral Tablet RISPERIDONE 03/30/2021 12:00:00 AM EDT ta blet 15 TAKE ONE TABLET BY MOUTH AT BEDTIME TAKE ONE TABLET BY MOUTH AT BEDTIME SOLD: 03/30/2021 [facility] 100 mg 03/30/2021 12:00:00 AM EDT tablet 30 TAKE ONE TABLET BY MOUTH TWICE A DAY TAKE ONE TABLET BY MOUTH TWICE A DAY SOLD: 03/30/2021 [facility] 30 mg 03/30/2021 12:00:00 AM EDT tablet 15 TAKE ONE TABLET BY MOUTH AT BEDTIME TAKE ONE TABLET BY MOUTH AT BEDTIME SOLD: 03/30/2021 [facility] 600 mg 03/30/2021 12:00:00 AM EDT tablet 45 TAKE ONE TABLET BY MOUTH THREE TIMES A DAY TAKE ONE TABLET BY MOUTH THREE TIMES A DAY SOLD: 03/30/2021 [facility] 8-2 mg 03/30/2021 12:00:00 AM EDT film 34 [address]ACE ONE FILM UNDER THE TONGUE TWICE A DAY MAXIMUM DAILY DOSE = [address] ONE FILM UNDER THE TONGUE TWICE A DAY MAXIMUM DAILY DOSE = 2 FILMS SOLD: 03/30/2021 [facility] olanzapine 10 MG Oral Tablet OLANZAPINE 03/30/2021 12:00:00 AM EDT tab let 22 TAKE ONE-HALF TABLET BY MOUTH EVERY MORNING AND ONE TABLET BY MOUTH AT BEDTIME TAKE ONE-HALF TABLET BY MOUTH EVERY MORNING AND ONE TABLET BY MOUTH AT BEDTIME SOLD: 03/30/2021 [facility] 60 mg 03/30/2021 12:00:00 AM EDT capsule 15 TAKE ONE CAPSULE BY MOUTH EVERY MORNING TAKE ONE CAPSULE BY MOUTH EVERY MORNING SOLD: 03/30/2021 [facility] Risperidone 2 MG Oral Tablet RISPERIDONE 03/16/2021 12:00:00 AM EDT ta blet 15 TAKE ONE TABLET BY MOUTH AT BEDTIME TAKE ONE TABLET BY MOUTH AT BEDTIME SOLD: 03/16/2021 [facility] 4 mg 03/16/2021 12:00:00 AM EDT gum 110 CHEW 1 PIECE EVERY 3 HOURS NEEDED CHEW 1 PIECE EVERY 3 HOURS NEEDED SOLD: 03/16/2021 [facility] 100 mg 03/16/2021 12:00:00 AM EDT tablet 30 TAKE ONE TABLET BY MOUTH TWICE A DAY TAKE ONE TABLET BY MOUTH TWICE A DAY SOLD: 03/16/2021 [facility] 8-2 mg 03/16/2021 12:00:00 AM EDT film 30 [address] ONE FILM UNDER THE TONGUE TWICE A DAY MAXIMUM DAILY DOSE = 2 PLACE ONE FILM UNDER THE TONGUE TWICE A DAY MAXIMUM DAILY DOSE = 2 SOLD: 03/16/2021 [facility] 600 mg 03/16/2021 12:00:00 AM EDT tablet 45 TAKE ONE TABLET BY MOUTH THREE TIMES A DAY TAKE ONE TABLET BY MOUTH THREE TIMES A DAY SOLD: 03/16/2021 [facility] 1 mg 03/16/2021 12:00:00 AM EDT capsule 15 TAKE ONE CAPSULE BY MOUTH AT BEDTIME TAKE ONE CAPSULE BY MOUTH AT BEDTIME SOLD: 03/16/2021 [facility] buspirone hydrochloride 15 MG Oral Tablet BUSPIRONE HCL 03/16/2021 12:00:00 AM EDT tablet 45 TAKE ONE TABLET BY MOUTH THR EE TIMES A DAY TAKE ONE TABLET BY MOUTH THREE TIMES A DAY SOLD: 03/16/2021 [facility] 30 mg 03/16/2021 12:00:00 AM EDT tablet 15 TAKE ONE TABLET BY MOUTH AT BEDTIME TAKE ONE TABLET BY MOUTH AT BEDTIME SOLD: 03/16/2021 [facility] olanzapine 10 MG Oral Tablet OLANZAPINE 03/16/2021 12:00:00 AM EDT tab let 22 TAKE ONE-HALF TABLET BY MOUTH EVERY MORNING AND 1 AT BEDTIME TAKE ONE-HALF TABLET BY MOUTH EVERY MORNING AND 1 AT BEDTIME SOLD: 03/16/2021 [facility] 60 mg 03/16/2021 12:00:00 AM EDT capsule 15 TAKE ONE CAPSULE BY MOUTH EVERY MORNING TAKE ONE CAPSULE BY MOUTH EVERY MORNING SOLD: 03/16/2021 [facility] 8-2 mg 03/03/2021 12:00:00 AM EDT film 30 [address] ONE FILM UNDER THE TONGUE TWICE A DAY MAXIMUM DAILY DOSE = [address] ONE FILM UNDER THE TONGUE TWICE A DAY MAXIMUM DAILY DOSE = 2 FILMS SOLD: 03/03/2021 [facility] 15 mg 03/03/2021 12:00:00 AM EDT tablet 15 TAKE ONE TABLET BY MOUTH AT BEDTIME TAKE ONE TABLET BY MOUTH AT BEDTIME SOLD: 03/03/2021 [facility] 1 mg 03/03/2021 12:00:00 AM EDT capsule 15 TAKE ONE CAPSULE BY MOUTH AT BEDTIME TAKE ONE CAPSULE BY MOUTH AT BEDTIME SOLD: 03/03/2021 [facility] 600 mg 03/03/2021 12:00:00 AM EDT tablet 45 TAKE ONE TABLET BY MOUTH THREE TIMES A DAY TAKE ONE TABLET BY MOUTH THREE TIMES A DAY SOLD: 03/03/2021 [facility] olanzapine 10 MG Oral Tablet OLANZAPINE 03/03/2021 12:00:00 AM EDT tab let 22 TAKE ONE-HALF TABLET BY MOUTH EVERY MORNING AND 1 AT BEDTIME TAKE ONE-HALF TABLET BY MOUTH EVERY MORNING AND 1 AT BEDTIME SOLD: 03/03/2021 [facility] 2 mg 03/03/2021 12:00:00 AM EDT tablet 15 TAKE ONE TABLET BY MOUTH AT BEDTIME TAKE ONE TABLET BY MOUTH AT BEDTIME SOLD: 03/03/2021 [facility] 100 mg 03/03/2021 12:00:00 AM EDT tablet 30 TAKE ONE TABLET BY MOUTH TWICE A DAY TAKE ONE TABLET BY MOUTH TWICE A DAY SOLD: 03/03/2021 [facility] buspirone hydrochloride 15 MG Oral Tablet BUSPIRONE HCL 03/03/2021 12:00:00 AM EDT tablet 45 TAKE ONE TABLET BY MOUTH THR EE TIMES A DAY TAKE ONE TABLET BY MOUTH THREE TIMES A DAY SOLD: 03/03/2021 [facility] 4 mg 03/03/2021 12:00:00 AM EDT gum 110 USE 1 PIECE EVERY 3 HOURS NEEDED USE 1 PIECE EVERY 3 HOURS NEEDED SOLD: 03/03/2021 [facility] 60 mg 03/03/2021 12:00:00 AM EDT capsule 15 TAKE ONE CAPSULE BY MOUTH EVERY MORNING TAKE ONE CAPSULE BY MOUTH EVERY MORNING SOLD: 03/03/2021 [facility] olanzapine 10 MG Oral Tablet OLANZAPINE 02/27/2021 12:00:00 AM EDT tab let 7 TAKE ONE TABLET BY MOUTH AT BEDTIME TAKE ONE TABLET BY MOUTH AT BEDTIME SOLD: 03/03/2021 [facility] 3.4 gram/12 gram 02/26/2021 12:00:00 AM EDT powder 575 TAKE 1 ROUNDED TEASPOONFUL MIXED IN FLUID BY MOUTH TWO TIMES A DAY TAKE 1 ROUNDED TEASPOONFUL MIXED IN FLUID BY MOUTH TWO TIMES A DAY SOLD: 03/03/2021 [facility] 100 mg 02/24/2021 12:00:00 AM EDT tablet 14 TAKE ONE TABLET BY MOUTH TWICE A DAY TAKE ONE TABLET BY MOUTH TWICE A DAY SOLD: 02/24/2021 [facility] 600 mg 02/24/2021 12:00:00 AM EDT tablet 21 TAKE ONE TABLET BY MOUTH THREE TIMES A DAY TAKE ONE TABLET BY MOUTH THREE TIMES A DAY SOLD: 02/24/2021 [facility] 15 mg 02/24/2021 12:00:00 AM EDT tablet 7 TAKE ONE TABLET BY MOUTH AT BEDTIME TAKE ONE TABLET BY MOUTH AT BEDTIME SOLD: 02/24/2021 [facility] 2 mg 02/24/2021 12:00:00 AM EDT gum 220 USE ONE PIECE EVERY HOUR NEEDED FOR NICOTINE CRAVINGS USE ONE PIECE EVERY HOUR NEEDED FOR NICOTINE CRAVIN GS SOLD: 02/24/2021 [facility] 25 mg 02/24/2021 12:00:00 AM EDT tablet 7 TAKE ONE TABLET BY MOUTH AT BEDTIME TAKE ONE TABLET BY MOUTH AT BEDTIME SOLD: 02/24/2021 [facility] 10 mg 02/24/2021 12:00:00 AM EDT capsule 14 TAKE TWO CAPSULES BY MOUTH EVERY DAY TAKE TWO CAPSULES BY MOUTH EVERY DAY SOLD: 02/24/2021 [facility] 50 mcg (2,000 unit) 02/24/2021 12:00:00 AM EDT tablet 30 TAKE ONE TABLET BY MOUTH EVERY DAY TAKE ONE TABLET BY MOUTH EVERY DAY SOLD: 02/24/2021 [facility] 8.6-50 mg 02/24/2021 12:00:00 AM EDT tablet 28 TAKE TWO TABLETS BY MOUTH TWICE A DAY TAKE TWO TABLETS BY MOUTH TWICE A DAY SOLD: 02/24/2021 [facility] 500 mg 02/24/2021 12:00:00 AM EDT tablet 14 TAKE ONE TABLET BY MOUTH TWICE A DAY AT `6AM AND `6PM TAKE ONE TABLET BY MOUTH TWICE A DAY AT `6AM AND `6PM SOLD: 02/24/2021 [facility] 8-2 mg 02/24/2021 12:00:00 AM EDT film 14 [address]ACE ONE FILM UNDER THE TONGUE TWICE A DAY MAXIMUM DAILY DOSE = [address] ONE FILM UNDER THE TONGUE TWICE A DAY MAXIMUM DAILY DOSE = 2 FILMS SOLD: 02/24/2021 [facility] 40 mg 02/24/2021 12:00:00 AM EDT capsule 7 TAKE ONE CAPSULE BY MOUTH EVERY DAY TAKE ONE CAPSULE BY MOUTH EVERY DAY SOLD: 02/24/2021 [facility] 21 mg/24 hr 02/24/2021 12:00:00 AM EDT patch 24 hour 28 APPLY 1 PATCH DAILY APPLY 1 PATCH DAILY SOLD: 02/24/2021 [facility] buspirone hydrochloride 15 MG Oral Tablet BUSPIRONE HCL 02/24/2021 12:00:00 AM EDT tablet 21 TAKE 1 TABLET BY MOUTH AT 6: 00AM, 1:00PM, AND 5:00PM DAILY TAKE 1 TABLET BY MOUTH AT 6:00AM, 1:00PM, AND 5:00PM DAILY SOLD: 02/24/2021 [facility] 3 mg 02/24/2021 12:00:00 AM EDT tablet 14 TAKE TWO TABLETS BY MOUTH AT BEDTIME NEEDED FOR SLEEP TAKE TWO TABLETS BY MOUTH AT BEDTIME NEEDED FOR SLEEP SOLD: 02/24/2021 [facility] 400 mcg 02/24/2021 12:00:00 AM EDT tablet 30 TAKE ONE TABLET BY MOUTH EVERY DAY TAKE ONE TABLET BY MOUTH EVERY DAY SOLD: 02/24/2021 [facility] olanzapine 5 MG Oral Tablet OLANZAPINE 02/24/2021 12:00:00 AM EDT tabl et 7 TAKE ONE TABLET BY MOUTH EVERY MORNING AT `8AM TAKE ONE TABLET BY MOUTH EVERY MORNING AT `8AM SOLD: 02/24/2021 [facility] 100 mg 02/24/2021 12:00:00 AM EDT tablet 7 TAKE ONE TABLET BY MOUTH EVERY DAY TAKE ONE TABLET BY MOUTH EVERY DAY SOLD: 02/24/2021 [facility] 1 mg 02/24/2021 12:00:00 AM EDT capsule 7 TAKE ONE CAPSULE BY MOUTH AT BEDTIME TAKE ONE CAPSULE BY MOUTH AT BEDTIME SOLD: 02/24/2021 [facility] 50 mcg 02/24/2021 12:00:00 AM EDT tablet 30 TAKE ONE TABLET BY MOUTH EVERY DAY TAKE ONE TABLET BY MOUTH EVERY DAY SOLD: 02/24/2021 [facility] 10 mg 02/24/2021 12:00:00 AM EDT tablet extended release 24hr 7 TAKE ONE TABLET BY MOUTH EVERY DAY TAKE ONE TABLET BY MOUTH EVERY DAY SOLD: 02/24/2021 [facility] 4 mg/actuation 02/23/2021 12:00:00 AM EDT spray,non-aerosol 2 USE FOR SUSPECTED OPIOID OVERDOSE AND CALL 911 USE FOR SUSPECTED OPIOID OVERDOSE AND CALL 911 SOLD: 02/24/2021 [facility] doxycycline hyclate 100 MG Oral Tablet Doxycycline Hyc late 100 MG TABLET Doxycycline Hyclate 100 MG TABLET 01/18/2021 12:00:00 AM EDT 100 completed Twice Daily [facility] doxycycline hyclate 100 MG Oral Tablet DOXYCYCLINE HYCLATE 0 01/18/2021 12:00:00 AM EDT tablet 20 TAKE ONE TABLET BY MOUTH TWI CE A DAY TAKE ONE TABLET BY MOUTH TWICE A DAY SOLD: 01/19/2021 [facility] 3 mg 01/18/2021 12:00:00 AM EDT tablet 5 TAKE ONE TABLET BY MOUTH AT BEDTIME TAKE ONE TABLET BY MOUTH AT BEDTIME SOLD: 01/19/2021 [facility] Docusate Sodium 100 MG Oral Capsule [Col gopi] Docusate Sodium (Colace) 100 MG CAPSULE Docusate Sodium (Colace) 100 MG CAPSULE 01/18/2021 12:00:00 AM E DT 200 completed Daily as needed [facility] olanzapine 15 MG Oral Tablet Olanzapine 15 MG TABLET Olanzap ine 15 MG TABLET 01/18/2021 12:00:00 AM EDT [address] [facility] 600 mg 01/18/2021 12:00:00 AM EDT tablet 15 TAKE ONE TABLET BY MOUTH THREE TIMES A DAY TAKE ONE TABLET BY MOUTH THREE TIMES A DAY SOLD: 01/19/2021 [facility] 15 mg 01/18/2021 12:00:00 AM EDT tablet 5 TAKE ONE TABLET BY MOUTH AT BEDTIME TAKE ONE TABLET BY MOUTH AT BEDTIME SOLD: 01/19/2021 [facility] Sertraline 50 MG Oral Tablet [Zoloft] Sertraline HCl 5 0 MG TABLET Sertraline HCl 50 MG TABLET 01/18/2021 12:00:00 AM EDT [address] [facility] Buprenorphine 8 MG / Naloxone 2 MG Oral Strip [Suboxone] Buprenorphine HCl/Naloxone HCl (Suboxone 8 MG-2 MG Sl Film) 1 EACH FILM Buprenorphine HCl/Naloxone HCl (Suboxone 8 MG-2 MG Sl Film) 1 EACH FILM 01/18/2021 12:00:00 AM EDT 8 completed Twice Daily [facility] 2 mg 01/18/2021 12:00:00 AM EDT capsule 5 TAKE ONE CAPSULE BY MOUTH AT BEDTIME TAKE ONE CAPSULE BY MOUTH AT BEDTIME SOLD: 01/19/2021 [facility] 8-2 mg 01/18/2021 12:00:00 AM EDT film 10 PLACE ONE FILM UNDER THE TONGUE TWICE A DAY MAXIMUM DAILY DOSE = 2 PLACE ONE FILM UNDER THE TONGUE TWICE A DAY MAXIMUM DAILY DOSE = 2 SOLD: 01/19/2021 [facility] Risperidone 3 MG Oral Tablet [Risperdal] Risperidone ( Risperdal) 3 MG TABLET Risperidone (Risperdal) 3 MG TABLET 01/18/2021 12:00:00 AM EDT [address] [facility] 50 mg 01/18/2021 12:00:00 AM EDT tablet 5 TAKE ONE TABLET BY MOUTH AT BEDTIME TAKE ONE TABLET BY MOUTH AT BEDTIME SOLD: 01/19/2021 [facility] 100 mg 01/18/2021 12:00:00 AM EDT capsule 10 TAKE TWO CAPSULES BY MOUTH EVERY DAY NEEDED TAKE TWO CAPSULES BY MOUTH EVERY DAY NEEDED SOLD: 01/19/2021 [facility] Multi-Vit/Mineral (Multivitamin Tablet) 1 TAB TAB 01/18/2021 12:00:00 AM EDT 1 completed Daily [facility] olanzapine 15 MG Oral Tablet OLANZAPINE 01/18/2021 12:00:00 AM EDT tab let 5 TAKE ONE TABLET BY MOUTH AT BEDTIME TAKE ONE TABLET BY MOUTH AT BEDTIME SOLD: 01/19/2021 [facility] Prazosin 2 MG Oral Capsule [Minipress] Prazosin HCl (M inipress) 2 MG CAPSULE Prazosin HCl (Minipress) 2 MG CAPSULE 01/18/2021 12:00:00 AM EDT [address] [facility] gabapentin 600 MG Oral Tablet Gabapentin 600 MG TABLET Gabap entin 600 MG TABLET 01/18/2021 12:00:00 AM EDT 600 completed Three Times a Day [facility] Mirtazapine 15 MG Oral Tablet Mirtazapine 15 MG TABLET [facility] zapine 15 MG TABLET 01/18/2021 12:00:00 AM EDT [address] [facility] 400 mcg 01/18/2021 12:00:00 AM EDT tablet 5 TAKE ONE TABLET BY MOUTH EVERY DAY TAKE ONE TABLET BY MOUTH EVERY DAY SOLD: 01/19/2021 [facility] 8-2 mg 01/13/2021 12:00:00 AM EDT film 14 PLACE ONE FILM UNDER THE TONGUE TWICE A DAY MAXIMUM DAILY DOSE = [address] ONE FILM UNDER THE TONGUE TWICE A DAY MAXIMUM DAILY DOSE = 2 FILMS SOLD: 01/19/2021 [facility] 600 mg 12/22/2020 12:00:00 AM EDT tablet 21 600 MG BY MOUTH THREE TIMES A DAY 600 MG BY MOUTH THREE TIMES A DAY SOLD: 01/23/2021 [facility] 600 mg 12/22/2020 12:00:00 AM EDT tablet 21 600 MG BY MOUTH THREE TIMES A DAY 600 MG BY MOUTH THREE TIMES A DAY SOLD: 01/02/2021 [facility] 600 mg 12/17/2020 12:00:00 AM EDT tablet 21 TAKE ONE TABLET BY MOUTH THREE TIMES A DAY FOR ANXIETY TAKE ONE TABLET BY MOUTH THREE TIMES A DAY FOR ANXIETY SOLD: 12/18/2020 [facility] 8-2 mg 12/17/2020 12:00:00 AM EDT film 14 PLACE ONE FILM UNDER THE TONGUE TWICE A DAY MAXIMUM DAILY DOSE = [address] ONE FILM UNDER THE TONGUE TWICE A DAY MAXIMUM DAILY DOSE = 2 FILMS SOLD: 12/18/2020 [facility] olanzapine 15 MG Oral Tablet OLANZAPINE 12/17/2020 12:00:00 AM EDT tab let 7 TAKE ONE TABLET BY MOUTH AT BEDTIME TAKE ONE TABLET BY MOUTH AT BEDTIME SOLD: 12/18/2020 [facility] 2 mg 12/17/2020 12:00:00 AM EDT capsule 7 TAKE ONE CAPSULE BY MOUTH AT BEDTIME FOR NIGHTMARES TAKE ONE CAPSULE BY MOUTH AT BEDTIME FOR NIGHTMARES SO LD: 12/18/2020 [facility] 15 mg 12/17/2020 12:00:00 AM EDT tablet 7 TAKE ONE TABLET BY MOUTH AT BEDTIME TAKE ONE TABLET BY MOUTH AT BEDTIME SOLD: 12/18/2020 [facility] 2 mg 12/17/2020 12:00:00 AM EDT tablet 11 TAKE ONE AND ONE-HALF TABLETS BY MOUTH AT BEDTIME TAKE ONE AND ONE-HALF TABLETS BY MOUTH AT BEDTIME SOLD : 12/18/2020 [facility] 100 mg 12/16/2020 12:00:00 AM EDT tablet 14 TAKE ONE TABLET BY MOUTH TWICE A DAY TAKE ONE TABLET BY MOUTH TWICE A DAY SOLD: 12/18/2020 [facility] 3 mg 12/11/2020 12:00:00 AM EDT tablet 7 TAKE ONE TABLET BY MOUTH AT BEDTIME TAKE ONE TABLET BY MOUTH AT BEDTIME SOLD: 12/12/2020 [facility] 100 mg 12/11/2020 12:00:00 AM EDT capsule 21 100 MG BY MOUTH THREE TIMES A DAY FOR CONSTIPATION 100 MG BY MOUTH THREE TIMES A DAY FOR CONSTIPATION [facility] 50 mg 12/11/2020 12:00:00 AM EDT tablet 7 TAKE ONE TABLET BY MOUTH AT BEDTIME FOR DEPRESSION TAKE ONE TABLET BY MOUTH AT BEDTIME FOR DEPRESSION ALMA [facility] Metronidazole 500 MG Oral Tablet METRONIDAZOLE 12/11/2020 12:0 0:00 AM EDT tablet 1 500 MG BY MOUTH AT BEDTIME FOR I NFECTION 500 MG BY MOUTH AT BEDTIME FOR INFECTION SOLD: 12/12/2020 [facility] Metronidazole 500 MG Oral Tablet METRONIDAZOLE 12/05/2020 12:0 0:00 AM EDT tablet 14 TAKE ONE TABLET BY M OUTH TWICE A DAY WITH FOOD FOR SOFT TISSUE INFECTION UNTIL GONE DO NOT DRINK ALCOHOL TAKE ONE TABLET BY MOUTH TWICE A DAY WIT H FOOD FOR SOFT TISSUE INFECTION UNTIL GONE DO NOT DRINK ALCOHOL SOLD: 12/06/2020 [facility] 15 mg 12/05/2020 12:00:00 AM EDT tablet 7 TAKE ONE TABLET BY MOUTH AT BEDTIME FOR INSOMNIA TAKE ONE TABLET BY MOUTH AT BEDTIME FOR INSOMNIA SOLD: 12/06/2020 [facility] 5 mg 12/05/2020 12:00:00 AM EDT tablet,disintegrating 7 DISSOLVE ONE TABLET UNDER THE TONGUE EVERY DAY NEEDED FOR ANXIETY AGITATIONS DISSOLVE ONE TABLET UNDER THE TONGUE EVERY DAY NEEDED FOR ANXIETY AGITATIONS SOLD: 12/06/2020 [facility] 5 mg 12/05/2020 12:00:00 AM EDT tablet,disintegrating 7 DISSOLVE ONE TABLET UNDER THE TONGUE EVERY DAY NEEDED FOR ANXIETY AGITATIONS DISSOLVE ONE TABLET UNDER THE TONGUE EVERY DAY NEEDED FOR ANXIETY AGITATIONS SOLD: 12/12/2020 [facility] 100 mg 12/05/2020 12:00:00 AM EDT capsule 7 TAKE ONE CAPSULE BY MOUTH EVERY DAY FOR CONSTIPATION TAKE ONE CAPSULE BY MOUTH EVERY DAY FOR CONSTIPATION S OLD: 12/06/2020 [facility] 4 mg 12/05/2020 12:00:00 AM EDT gum 110 CHEW 1 PIECE FOUR TIMES A DAY NEEDED FOR SMOKING CESSATION CHEW 1 PIECE FOUR TIMES A DAY NEEDED FOR SMOKING CESSATION SOLD: 12/06/2020 [facility] 100 mg 12/05/2020 12:00:00 AM EDT tablet 14 TAKE ONE TABLET BY MOUTH TWICE A DAY FOR MIGRAINE TAKE ONE TABLET BY MOUTH TWICE A DAY FOR MIGRAINE SOLD : 12/06/2020 [facility] 8-2 mg 11/06/2020 12:00:00 AM EDT film 14 PLACE ONE FILM UNDER THE TONGUE TWICE A DAY MAXIMUM DAILY DOSE = [address] ONE FILM UNDER THE TONGUE TWICE A DAY MAXIMUM DAILY DOSE = 2 FILMS SOLD: 11/06/2020 [facility] 8-2 mg 10/28/2020 12:00:00 AM EDT film 16 PLACE ONE FILM UNDER THE TONGUE TWICE A DAY MAXIMUM DAILY DOSE = [address] ONE FILM UNDER THE TONGUE TWICE A DAY MAXIMUM DAILY DOSE = 2 FILM SOLD: 10/31/2020 [facility] 2 mg 10/13/2020 12:00:00 AM EDT capsule 30 TAKE ONE CAPSULE BY MOUTH AT BEDTIME TAKE ONE CAPSULE BY MOUTH AT BEDTIME SOLD: 10/15/2020 [facility] 600 mg 10/13/2020 12:00:00 AM EDT tablet 90 TAKE ONE TABLET BY MOUTH THREE TIMES A DAY TAKE ONE TABLET BY MOUTH THREE TIMES A DAY SOLD: 10/15/2020 [facility] 8-2 mg 10/13/2020 12:00:00 AM EDT film 30 [address] ONE FILM UNDER THE TONGUE TWICE A DAY MAXIMUM DAILY DOSE = [address] ONE FILM UNDER THE TONGUE TWICE A DAY MAXIMUM DAILY DOSE = 2 FILMS SOLD: 10/15/2020 [facility] olanzapine 15 MG Oral Tablet OLANZAPINE 10/13/2020 12:00:00 AM EDT tab let 30 TAKE ONE TABLET BY MOUTH AT BEDTIME TAKE ONE TABLET BY MOUTH AT BEDTIME SOLD: 10/15/2020 [facility] 4 mg 10/13/2020 12:00:00 AM EDT gum 220 USE 1 PIECE BY MOUTH EVERY 3 HOURS NEEDED USE 1 PIECE BY MOUTH EVERY 3 HOURS NEEDED SOLD: 10/15/2020 [facility] 1 mg 10/13/2020 12:00:00 AM EDT capsule 90 TAKE ONE CAPSULE BY MOUTH TWICE A DAY AND 1 AT BEDTIME NEEDED TAKE ONE CAPSULE BY MOUTH TWICE A DAY AN D 1 AT BEDTIME NEEDED SOLD: 10/15/2020 [facility] 1 mg 10/13/2020 12:00:00 AM EDT tablet 60 TAKE ONE TABLET BY MOUTH TWICE A DAY NEEDED TAKE ONE TABLET BY MOUTH TWICE A DAY NEEDED SOLD: 10/15/2020 [facility] 12-3 mg 10/09/2020 12:00:00 AM EST film [address] PLACE ONE FILM UNDER THE TONGUE EVERY MORNING MAXIMUM DAILY DOSE = [address] ONE FILM UNDER THE TONGUE EVERY MORNING MAXIMUM DAILY DOSE = 1 FILM SOLD: 10/09/2020 [facility] 1 mg 10/07/2020 12:00:00 AM EST tablet 14 TAKE ONE TABLET BY MOUTH TWICE A DAY NEEDED TAKE ONE TABLET BY MOUTH TWICE A DAY NEEDED SOLD: 10/09/2020 [facility] 600 mg 09/29/2020 12:00:00 AM EST tablet 45 TAKE ONE TABLET BY MOUTH THREE TIMES A DAY TAKE ONE TABLET BY MOUTH THREE TIMES A DAY SOLD: 10/03/2020 [facility] 4 mg 09/29/2020 12:00:00 AM EST lozenge 72 TAKE ONE LOZENGE BUCCALLY FOUR TIMES A DAY NEEDED TAKE ONE LOZENGE BUCCALLY FOUR TIMES A DAY NEEDED S OLD: 10/03/2020 [facility] olanzapine 15 MG Oral Tablet OLANZAPINE 09/29/2020 12:00:00 AM EST tab let 15 TAKE ONE TABLET BY MOUTH AT BEDTIME TAKE ONE TABLET BY MOUTH AT BEDTIME SOLD: 10/03/2020 [facility] 30 mg 09/29/2020 12:00:00 AM EST tablet 15 TAKE ONE TABLET BY MOUTH AT BEDTIME TAKE ONE TABLET BY MOUTH AT BEDTIME SOLD: 10/03/2020 [facility] 2 mg 09/29/2020 12:00:00 AM EST capsule 15 TAKE ONE CAPSULE BY MOUTH AT BEDTIME TAKE ONE CAPSULE BY MOUTH AT BEDTIME SOLD: 10/03/2020 [facility] 12-3 mg 09/29/2020 12:00:00 AM EST film 7 PLACE 1 FILM UNDER THE TONGUE EVERY MORNING MAXIMUM DAILY DOSE = [address] 1 FILM UNDER THE TONGUE EVERY MORNING MAXIMUM DAILY DOSE = 1 FILM SOLD: 10/03/2020 [facility] Metronidazole 500 MG Oral Tablet metronidazole 500 mg tablet metronidazole 500 mg tablet 09/22/2020 12:00:00 AM EST active 4 tabs po x 1 (#4) [facility]) 1 mg 09/22/2020 12:00:00 AM EST tablet 30 TAKE ONE TABLET BY MOUTH TWICE A DAY NEEDED TAKE ONE TABLET BY MOUTH TWICE A DAY NEEDED SOLD: 10/03/2020 [facility] Metronidazole 500 MG Oral Tablet METRONIDAZOLE 09/22/2020 12:0 0:00 AM EST tablet 4 TAKE 4 TABLETS BY MOUTH ONCE WIT H FOOD DO NOT DRINK ALCOHOL TAKE 4 TABLETS BY MOUTH ONCE WITH FOOD DO NOT DRINK ALCOHOL SOLD: 10/03/2020 [facility] 30 mg 09/16/2020 12:00:00 AM EST tablet 15 TAKE ONE TABLET BY MOUTH AT BEDTIME TAKE ONE TABLET BY MOUTH AT BEDTIME SOLD: 09/16/2020 [facility] 2 mg 09/16/2020 12:00:00 AM EST capsule 15 TAKE ONE CAPSULE BY MOUTH AT BEDTIME TAKE ONE CAPSULE BY MOUTH AT BEDTIME SOLD: 09/16/2020 [facility] 12-3 mg 09/16/2020 12:00:00 AM EST film [address] ONE FILM UNDER THE TONGUE EVERY MORNING MAXIMUM DAILY DOSE = [address] ONE FILM UNDER THE TONGUE EVERY MORNING MAXIMUM DAILY DOSE = 1 FILM SOLD: 09/16/2020 [facility] 600 mg 09/16/2020 12:00:00 AM EST tablet 45 TAKE ONE TABLET BY MOUTH THREE TIMES A DAY TAKE ONE TABLET BY MOUTH THREE TIMES A DAY SOLD: 09/16/2020 [facility] olanzapine 15 MG Oral Tablet OLANZAPINE 09/16/2020 12:00:00 AM EST tab let 15 TAKE ONE TABLET BY MOUTH AT BEDTIME TAKE ONE TABLET BY MOUTH AT BEDTIME SOLD: 09/16/2020 [facility] 4 mg 09/16/2020 12:00:00 AM EST lozenge 72 TAKE ONE LOZENGE BUCCALLY FOUR TIMES A DAY NEEDED TAKE ONE LOZENGE BUCCALLY FOUR TIMES A DAY NEEDED S OLD: 09/16/2020 [facility] 10 mg 08/30/2020 12:00:00 AM EST tablet 30 TAKE TWO TABLETS BY MOUTH TWICE A DAY NEEDED TAKE TWO TABLETS BY MOUTH TWICE A DAY NEEDED SOLD: 2020 [facility] 50 mg 08/26/2020 12:00:00 AM EST tablet 7 TAKE ONE TABLET BY MOUTH EVERY MORNING THEN DISCONTINUE TAKE ONE TABLET BY MOUTH EVERY MORNING T HEN DISCONTINUE SOLD: 08/27/2020 [facility] 400 mg 08/26/2020 12:00:00 AM EST capsule 60 TAKE ONE CAPSULE BY MOUTH FOUR TIMES A DAY TAKE ONE CAPSULE BY MOUTH FOUR TIMES A DAY SOLD: 09/16/2020 [facility] 2 mg 08/26/2020 12:00:00 AM EST capsule 15 TAKE ONE CAPSULE BY MOUTH AT BEDTIME TAKE ONE CAPSULE BY MOUTH AT BEDTIME SOLD: 08/27/2020 [facility] 30 mg 08/26/2020 12:00:00 AM EST tablet 15 TAKE ONE TABLET BY MOUTH AT BEDTIME TAKE ONE TABLET BY MOUTH AT BEDTIME SOLD: 08/27/2020 [facility] 400 mg 08/26/2020 12:00:00 AM EST capsule 60 TAKE ONE CAPSULE BY MOUTH FOUR TIMES A DAY TAKE ONE CAPSULE BY MOUTH FOUR TIMES A DAY SOLD: 08/27/2020 [facility] olanzapine 15 MG Oral Tablet OLANZAPINE 08/26/2020 12:00:00 AM EST tab let 15 TAKE ONE TABLET BY MOUTH AT BEDTIME TAKE ONE TABLET BY MOUTH AT BEDTIME SOLD: 08/27/2020 [facility] 12-3 mg 08/26/2020 12:00:00 AM EST film 15 PLACE ONE FILM UNDER THE TONGUE EVERY MORNING MAXIMUM DAILY DOSE = [address] ONE FILM UNDER THE TONGUE EVERY MORNING MAXIMUM DAILY DOSE = 1 FILM SOLD: 08/27/2020 [facility] olanzapine 15 MG Oral Tablet OLANZAPINE 08/20/2020 12:00:00 AM EST tab let 7 TAKE ONE TABLET BY MOUTH AT BEDTIME TAKE ONE TABLET BY MOUTH AT BEDTIME SOLD: 08/20/2020 [facility] 100 mg 08/19/2020 12:00:00 AM EST tablet 7 TAKE ONE TABLET BY MOUTH EVERY MORNING TAKE ONE TABLET BY MOUTH EVERY MORNING SOLD: 08/20/2020 [facility] 2 mg 08/19/2020 12:00:00 AM EST capsule 7 TAKE ONE CAPSULE BY MOUTH AT BEDTIME TAKE ONE CAPSULE BY MOUTH AT BEDTIME SOLD: 08/20/2020 [facility] 1 mg 08/19/2020 12:00:00 AM EST tablet 60 TAKE ONE TABLET BY MOUTH TWICE A DAY NEEDED TAKE ONE TABLET BY MOUTH TWICE A DAY NEEDED SOLD: 08/20/2020 [facility] 30 mg 08/19/2020 12:00:00 AM EST tablet 7 TAKE ONE TABLET BY MOUTH AT BEDTIME TAKE ONE TABLET BY MOUTH AT BEDTIME SOLD: 08/20/2020 [facility] 8-2 mg 08/19/2020 12:00:00 AM EST film 7 PLACE ONE FILM UNDER THE TONGUE EVERY MORNING MAXIMUM DAILY DOSE = [address] ONE FILM UNDER THE TONGUE EVERY MORNING MAXIMUM DAILY DOSE = 1 FILM SOLD: 08/20/2020 [facility] 400 mg 08/19/2020 12:00:00 AM EST capsule 28 TAKE ONE CAPSULE BY MOUTH FOUR TIMES A DAY TAKE ONE CAPSULE BY MOUTH FOUR TIMES A DAY SOLD: 08/20/2020 [facility] 10 mg 08/18/2020 12:00:00 AM EST tablet 14 TAKE ONE TABLET BY MOUTH TWICE A DAY NEEDED TAKE ONE TABLET BY MOUTH TWICE A DAY NEEDED SOLD: 08/20/2020 [facility] 10 mg 08/05/2020 12:00:00 AM EST tablet 21 TAKE ONE TABLET BY MOUTH THREE TIMES A DAY NEEDED TAKE ONE TABLET BY MOUTH THREE TIMES A DAY NEEDED S OLD: 08/05/2020 [facility] 1 mg 08/04/2020 12:00:00 AM EST tablet 14 TAKE ONE TABLET BY MOUTH TWICE A DAY NEEDED TAKE ONE TABLET BY MOUTH TWICE A DAY NEEDED SOLD: 08/04/2020 [facility] 50 mg 08/04/2020 12:00:00 AM EST tablet 21 TAKE ONE TABLET BY MOUTH THREE TIMES A DAY NEEDED TAKE ONE TABLET BY MOUTH THREE TIMES A DAY NEEDED S OLD: 08/04/2020 [facility] 1 mg 08/04/2020 12:00:00 AM EST capsule 7 TAKE ONE CAPSULE BY MOUTH AT BEDTIME TAKE ONE CAPSULE BY MOUTH AT BEDTIME SOLD: 08/04/2020 [facility] 30 mg 08/04/2020 12:00:00 AM EST tablet 7 TAKE ONE TABLET BY MOUTH AT BEDTIME TAKE ONE TABLET BY MOUTH AT BEDTIME SOLD: 08/04/2020 [facility] buspirone hydrochloride 15 MG Oral Tablet BUSPIRONE HCL 08/04/2020 12:00:00 AM EST tablet 120 TAKE ONE TABLET BY MOUTH FOU R TIMES A DAY TAKE ONE TABLET BY MOUTH FOUR TIMES A DAY SOLD: 08/04/2020 [facility] 4 mg 08/04/2020 12:00:00 AM EST lozenge 72 TAKE ONE TABLET BUCCALLY FOUR TIMES A DAY NEEDED TAKE ONE TABLET BUCCALLY FOUR TIMES A DAY NEEDED SO LD: 08/04/2020 [facility] 8-2 mg 08/04/2020 12:00:00 AM EST film 7 PLACE ONE FILM UNDER THE TONGUE EVERY MORNING MAXIMUM DAILY DOSE = [address] ONE FILM UNDER THE TONGUE EVERY MORNING MAXIMUM DAILY DOSE = 1 FILM SOLD: 08/04/2020 [facility] 400 mg 08/04/2020 12:00:00 AM EST capsule 28 TAKE ONE CAPSULE BY MOUTH FOUR TIMES A DAY TAKE ONE CAPSULE BY MOUTH FOUR TIMES A DAY SOLD: 08/04/2020 [facility] 100 mg 08/04/2020 12:00:00 AM EST tablet 7 TAKE ONE TABLET BY MOUTH EVERY MORNING TAKE ONE TABLET BY MOUTH EVERY MORNING SOLD: 08/04/2020 [facility] 8-2 mg 07/24/2020 12:00:00 AM EST film 10 PLACE ONE FILM UNDER THE TONGUE TWICE A DAY MAXIMUM DAILY DOSE = 2 FILMS LOT # [id number] PLACE ONE FILM UNDER THE TONGUE TWICE A DAY MAXIMUM DAILY DOSE = 2 FILMS LOT # [id number] SOLD: 07/24/2020 [facility] olanzapine 5 MG Oral Tablet OLANZAPINE 07/24/2020 12:00:00 AM EST tabl et 60 TAKE ONE TABLET BY MOUTH TWICE A DAY TAKE ONE TABLET BY MOUTH TWICE A DAY SOLD: 07/24/2020 [facility] 15 mg 07/08/2020 12:00:00 AM EST tablet 10 TAKE ONE TABLET BY MOUTH AT BEDTIME TAKE ONE TABLET BY MOUTH AT BEDTIME SOLD: 07/09/2020 [facility] 100 mg 07/08/2020 12:00:00 AM EST tablet 10 TAKE ONE TABLET BY MOUTH AT BEDTIME TAKE ONE TABLET BY MOUTH AT BEDTIME SOLD: 07/09/2020 [facility] 1 mg 07/08/2020 12:00:00 AM EST capsule 10 TAKE ONE CAPSULE BY MOUTH AT BEDTIME TAKE ONE CAPSULE BY MOUTH AT BEDTIME SOLD: 07/09/2020 [facility] 400 mg 07/08/2020 12:00:00 AM EST capsule 30 TAKE ONE CAPSULE BY MOUTH THREE TIMES A DAY TAKE ONE CAPSULE BY MOUTH THREE TIMES A DAY SOLD: 07/09/2020 [facility] 8-2 mg 07/08/2020 12:00:00 AM EST film 20 PLACE ONE FILM UNDER THE TONGUE TWICE A DAY MAXIMUM DAILY DOSE = [address] ONE FILM UNDER THE TONGUE TWICE A DAY MAXIMUM DAILY DOSE = 2 FILMS SOLD: 07/09/2020 [facility] 25 mg 07/08/2020 12:00:00 AM EST tablet 10 TAKE ONE TABLET BY MOUTH EVERY MORNING TAKE ONE TABLET BY MOUTH EVERY MORNING SOLD: 07/09/2020 [facility] 8-2 mg 06/30/2020 12:00:00 AM EST film 14 PLACE ONE FILM UNDER THE TONGUE TWICE A DAY MAXIMUM DAILY DOSE = [address] ONE FILM UNDER THE TONGUE TWICE A DAY MAXIMUM DAILY DOSE = 2 FILMS SOLD: 07/07/2020 [facility] 5 mg 06/25/2020 12:00:00 AM EST tablet 14 TAKE ONE TABLET BY MOUTH TWICE A DAY FOR URINARY DISCOMFORT TAKE ONE TABLET BY MOUTH TWICE A DAY FOR URINARY DISCOMFORT SOLD: 07/07/2020 [facility] 5 mg 06/25/2020 12:00:00 AM EST tablet 14 TAKE ONE TABLET BY MOUTH TWICE A DAY FOR URINARY DISCOMFORT TAKE ONE TABLET BY MOUTH TWICE A DAY FOR URINARY DISCOMFORT SOLD: 07/14/2020 [facility] 8-2 mg 06/25/2020 12:00:00 AM EST film 12 PLACE ONE FILM UNDER THE TONGUE TWICE A DAY MAXIMUM DAILY DOSE = [address] ONE FILM UNDER THE TONGUE TWICE A DAY MAXIMUM DAILY DOSE = 2 FILMS SOLD: 06/30/2020 [facility] 5 mg 06/25/2020 12:00:00 AM EST tablet 14 TAKE ONE TABLET BY MOUTH TWICE A DAY FOR URINARY DISCOMFORT TAKE ONE TABLET BY MOUTH TWICE A DAY FOR URINARY DISCOMFORT SOLD: 06/25/2020 [facility] 5 mg 06/25/2020 12:00:00 AM EST tablet 14 TAKE ONE TABLET BY MOUTH TWICE A DAY FOR URINARY DISCOMFORT TAKE ONE TABLET BY MOUTH TWICE A DAY FOR URINARY DISCOMFORT SOLD: 09/16/2020 [facility] 5 mg 06/25/2020 12:00:00 AM EST tablet 14 TAKE ONE TABLET BY MOUTH TWICE A DAY FOR URINARY DISCOMFORT TAKE ONE TABLET BY MOUTH TWICE A DAY FOR URINARY DISCOMFORT SOLD: 09/06/2020 [facility] 1 mg 06/24/2020 12:00:00 AM EST tablet 7 TAKE ONE TABLET BY MOUTH EVERY DAY NEEDED FOR EPS TAKE ONE TABLET BY MOUTH EVERY DAY NEEDED FOR EPS S OLD: 07/14/2020 [facility] 1 mg 06/24/2020 12:00:00 AM EST tablet 7 TAKE ONE TABLET BY MOUTH EVERY DAY NEEDED FOR EPS TAKE ONE TABLET BY MOUTH EVERY DAY NEEDED FOR EPS S OLD: 06/25/2020 [facility] 8-2 mg 06/16/2020 12:00:00 AM EST film 5 PLACE ONE FILM UNDER THE TONGUE TWICE A DAY MAXIMUM DAILY DOSE = [address] ONE FILM UNDER THE TONGUE TWICE A DAY MAXIMUM DAILY DOSE = 2 FILMS SOLD: 06/16/2020 [facility] 3 mg 06/10/2020 12:00:00 AM EST tablet extended release 24hr 7 TAKE ONE TABLET BY MOUTH AT BEDTIME FOR ANTIPSYCHOTIC TAKE ONE TABLET BY MOUTH AT BEDTIME FOR ANTIPSYCHOTIC SOLD: 06/13/2020 [facility] 15 mg 06/10/2020 12:00:00 AM EST tablet 14 TAKE TWO TABLETS BY MOUTH AT BEDTIME FOR INSOMNIA TAKE TWO TABLETS BY MOUTH AT BEDTIME FOR INSOMNIA SOLD : 07/14/2020 [facility] 234 mg/1.5 mL 06/10/2020 12:00:00 AM EST syringe 1 INJECT INTRAMUSCULARLY EVERY 30 DAYS INJECT INTRAMUSCULARLY EVERY 30 DAYS SOLD: 06/13/2020 [facility] 15 mg 06/10/2020 12:00:00 AM EST tablet 14 TAKE TWO TABLETS BY MOUTH AT BEDTIME FOR INSOMNIA TAKE TWO TABLETS BY MOUTH AT BEDTIME FOR INSOMNIA SOLD : 06/13/2020 [facility] 2 mg 06/10/2020 12:00:00 AM EST capsule 7 TAKE ONE CAPSULE BY MOUTH AT BEDTIME FOR INSOMNIA TAKE ONE CAPSULE BY MOUTH AT BEDTIME FOR INSOMNIA SOLD : 07/14/2020 [facility] 2 mg 06/10/2020 12:00:00 AM EST capsule 7 TAKE ONE CAPSULE BY MOUTH AT BEDTIME FOR INSOMNIA TAKE ONE CAPSULE BY MOUTH AT BEDTIME FOR INSOMNIA SOLD : 06/13/2020 [facility] 100 mg 06/10/2020 12:00:00 AM EST tablet 7 TAKE ONE TABLET BY MOUTH EVERY DAY FOR DEPRESSION TAKE ONE TABLET BY MOUTH EVERY DAY FOR DEPRESSION SOLD : 07/14/2020 [facility] 100 mg 06/10/2020 12:00:00 AM EST tablet 7 TAKE ONE TABLET BY MOUTH EVERY DAY FOR DEPRESSION TAKE ONE TABLET BY MOUTH EVERY DAY FOR DEPRESSION SOLD : 06/13/2020 [facility] 100 mg 06/10/2020 12:00:00 AM EST tablet 7 TAKE ONE TABLET BY MOUTH EVERY DAY FOR DEPRESSION TAKE ONE TABLET BY MOUTH EVERY DAY FOR DEPRESSION SOLD : 07/24/2020 [facility] 21 mg/24 hr 06/04/2020 12:00:00 AM EST patch 24 hour 28 APPLY 1 PATCH TO SKIN DAILY APPLY 1 PATCH TO SKIN DAILY SOLD: 06/13/2020 [facility] 1 mg 05/28/2020 12:00:00 AM EDT capsule 30 TAKE ONE CAPSULE BY MOUTH AT BEDTIME TAKE ONE CAPSULE BY MOUTH AT BEDTIME SOLD: 05/29/2020 [facility] Amitriptyline Hydrochloride 25 MG Oral Tablet AMITRIPTYLINE HCL 05/28/2020 12:00:00 AM EDT tablet 30 TAKE ONE TABLET BY MOUTH AT BEDTIME TAKE ONE TABLET BY MOUTH AT BEDTIME SOLD: 05/29/2020 [facility] 15 mg 05/28/2020 12:00:00 AM EDT tablet 30 TAKE ONE TABLET BY MOUTH AT BEDTIME TAKE ONE TABLET BY MOUTH AT BEDTIME SOLD: 05/29/2020 [facility] 25 mg 05/28/2020 12:00:00 AM EDT tablet 30 TAKE ONE TABLET BY MOUTH EVERY MORNING TAKE ONE TABLET BY MOUTH EVERY MORNING SOLD: 05/29/2020 [facility] olanzapine 5 MG Oral Tablet OLANZAPINE 05/28/2020 12:00:00 AM EDT tabl et 60 TAKE ONE TABLET BY MOUTH TWICE A DAY TAKE ONE TABLET BY MOUTH TWICE A DAY SOLD: 05/29/2020 [facility] 400 mg 05/28/2020 12:00:00 AM EDT capsule 90 TAKE ONE CAPSULE BY MOUTH THREE TIMES A DAY TAKE ONE CAPSULE BY MOUTH THREE TIMES A DAY SOLD: 05/29/2020 [facility] buspirone hydrochloride 15 MG Oral Tablet BUSPIRONE HCL 05/28/2020 12:00:00 AM EDT tablet 90 TAKE ONE TABLET BY MOUTH THR EE TIMES A DAY TAKE ONE TABLET BY MOUTH THREE TIMES A DAY SOLD: 05/29/2020 [facility] 2 mg 05/28/2020 12:00:00 AM EDT tablet 180 TAKE TWO TABLETS BY MOUTH THREE TIMES A DAY (8AM, 1PM., AND 9PM) TAKE TWO TABLETS BY MOUTH THREE TIMES A DAY (8AM, 1PM., AND 9PM) SOLD: 05/29/2020 [facility] 100 mg 05/28/2020 12:00:00 AM EDT tablet 30 TAKE ONE TABLET BY MOUTH AT BEDTIME TAKE ONE TABLET BY MOUTH AT BEDTIME SOLD: 05/29/2020 [facility] 25 mg 05/28/2020 12:00:00 AM EDT tablet 90 TAKE ONE TABLET BY MOUTH THREE TIMES A DAY NEEDED TAKE ONE TABLET BY MOUTH THREE TIMES A DAY NEEDED S OLD: 05/29/2020 [facility] 5 mg 05/27/2020 12:00:00 AM EDT tablet 60 TAKE ONE TABLET BY MOUTH TWICE A DAY TAKE ONE TABLET BY MOUTH TWICE A DAY SOLD: 07/20/2020 [facility] Oxybutynin chloride 5 MG Oral Tablet OXYBUTYNIN CHLORIDE 12:00:00 AM EDT tablet 60 TAKE ONE TABLET BY MOUTH TWI CE A DAY TAKE ONE TABLET BY MOUTH TWICE A DAY SOLD: 05/27/2020 [facility] 5 mg 05/27/2020 12:00:00 AM EDT tablet 60 TAKE ONE TABLET BY MOUTH TWICE A DAY TAKE ONE TABLET BY MOUTH TWICE A DAY SOLD: 08/11/2020 [facility] 8-2 mg 05/26/2020 12:00:00 AM EDT film 28 PLACE ONE FILM UNDER THE TONGUE TWICE A DAY MAXIMUM DAILY DOSE = [address] ONE FILM UNDER THE TONGUE TWICE A DAY MAXIMUM DAILY DOSE = 2 FILMS SOLD: 05/27/2020 [facility] 2 mg 05/17/2020 12:00:00 AM EDT tablet 42 TAKE 2 TABLET BY MOUTH AT 6:00AM, 1:00PM, AND 9:00PM TAKE 2 TABLET BY MOUTH AT 6:00AM, 1:00PM, AND 9:00PM S OLD: 05/24/2020 [facility] 4 mg/actuation 05/15/2020 12:00:00 AM EDT spray,non-aerosol 2 INSTILL 1 SPRAY NASALLY DIRECTED INSTILL 1 SPRAY NASALLY DIRECTED SOLD: 05/16/2020 [facility] buspirone hydrochloride 15 MG Oral Tablet BUSPIRONE HCL 05/14/2020 12:00:00 AM EDT tablet 21 TAKE ONE TABLET BY MOUTH THR EE TIMES A DAY TAKE ONE TABLET BY MOUTH THREE TIMES A DAY SOLD: 05/14/2020 [facility] 8-2 mg 05/14/2020 12:00:00 AM EDT film 6 PLACE ONE FILM UNDER THE TONGUE TWICE A DAY MAXIMUM DAILY DOSE = [address] ONE FILM UNDER THE TONGUE TWICE A DAY MAXIMUM DAILY DOSE = 2 FILMS SOLD: 05/14/2020 [facility] 50 mg 05/14/2020 12:00:00 AM EDT tablet 14 TAKE ONE TABLET BY MOUTH TWICE A DAY TAKE ONE TABLET BY MOUTH TWICE A DAY SOLD: 05/14/2020 [facility] 10,000 unit- 1 mg/mL 05/14/2020 12:00:00 AM EDT drops [address] 1 DROP IN EACH EYE EVERY [address] 1 DROP IN EACH EYE EVERY 3 HOURS SOLD: 05/14/2020 [facility] Amitriptyline Hydrochloride 25 MG Oral Tablet AMITRIPTYLINE HCL 05/14/2020 12:00:00 AM EDT tablet 7 TAKE ONE TABLET BY MOUTH AT BEDTIME TAKE ONE TABLET BY MOUTH AT BEDTIME SOLD: 05/14/2020 [facility] 10 mg 05/14/2020 12:00:00 AM EDT tablet extended release 24hr 7 TAKE ONE TABLET BY MOUTH EVERY DAY TAKE ONE TABLET BY MOUTH EVERY DAY SOLD: 05/14/2020 [facility] 17 gram/dose 05/14/2020 12:00:00 AM EDT powder 1530 USE 17GRAMS IN FLUID BY MOUTH DAILY NEEDED FOR CONSTIPATION USE 17GRAMS IN FLUID BY MOUTH DAILY NEEDED FOR CONSTIPATION SOLD: 05/14/2020 [facility] 400 mg 05/14/2020 12:00:00 AM EDT capsule 28 TAKE ONE CAPSULE BY MOUTH FOUR TIMES A DAY AT 8:00AM, 1:00PM, 5:00PM, AND 9:00PM TAKE ONE CAPSULE BY MOUTH FOUR TIMES A DAY AT 8:00AM, 1:00PM, 5:00PM, AND 9:00PM SOLD: 05/14/2020 [facility] olanzapine 5 MG Oral Tablet OLANZAPINE 05/14/2020 12:00:00 AM EDT tabl et 14 TAKE ONE TABLET BY MOUTH TWICE A DAY TAKE ONE TABLET BY MOUTH TWICE A DAY SOLD: 05/14/2020 [facility] 15 mg 05/14/2020 12:00:00 AM EDT tablet 7 TAKE ONE-HALF TABLET BY MOUTH AT BEDTIME TAKE ONE-HALF TABLET BY MOUTH AT BEDTIME SOLD: 05/14/2020 [facility] 25 mg 05/14/2020 12:00:00 AM EDT tablet 25 TAKE ONE TABLET BY MOUTH EVERY 4 HOURS NEEDED FOR ANXIETY TAKE ONE TABLET BY MOUTH EVERY 4 HOURS A S NEEDED FOR ANXIETY SOLD: 05/14/2020 [facility] 400 mg 05/14/2020 12:00:00 AM EDT capsule 28 TAKE ONE CAPSULE BY MOUTH FOUR TIMES A DAY AT 8:00AM, 1:00PM, 5:00PM, AND 9:00PM TAKE ONE CAPSULE BY MOUTH FOUR TIMES A DAY AT 8:00AM, 1:00PM, 5:00PM, AND 9:00PM SOLD: 07/14/2020 [facility] 1 mg 05/14/2020 12:00:00 AM EDT capsule 7 TAKE ONE CAPSULE BY MOUTH AT BEDTIME TAKE ONE CAPSULE BY MOUTH AT BEDTIME SOLD: 05/14/2020 [facility] 50 mcg/actuation 05/14/2020 12:00:00 AM EDT spray,suspension 16 SPRAY ONE SPRAY IN EACH NOSTRIL TWICE A DAY SPRAY ONE SPRAY IN EACH NOSTRIL TWICE A DAY SOLD: 05/14/2020 [facility] 100 mg 05/14/2020 12:00:00 AM EDT tablet 14 TAKE ONE TABLET BY MOUTH TWICE A DAY TAKE ONE TABLET BY MOUTH TWICE A DAY SOLD: 07/24/2020 [facility] 25 mg 05/14/2020 12:00:00 AM EDT tablet 7 TAKE ONE TABLET BY MOUTH EVERY DAY TAKE ONE TABLET BY MOUTH EVERY DAY SOLD: 05/14/2020 [facility] 21 mg/24 hr 05/14/2020 12:00:00 AM EDT patch 24 hour 28 APPLY ONE PATCH TO THE SKIN EVERY DAY APPLY ONE PATCH TO THE SKIN EVERY DAY SOLD: 05/14/2020 [facility] 50 mcg 05/14/2020 12:00:00 AM EDT tablet 30 TAKE ONE TABLET BY MOUTH EVERY DAY TAKE ONE TABLET BY MOUTH EVERY DAY SOLD: 05/14/2020 [facility] 2 mg 05/14/2020 12:00:00 AM EDT gum 220 CHEW 1 PIECE EVERY 1 HOUR NEEDED FOR NICOTINE CRAVINGS CHEW 1 PIECE EVERY 1 HOUR NEEDED FOR NICOTINE CRAVI NGS SOLD: 05/14/2020 [facility] 100 mg 05/14/2020 12:00:00 AM EDT tablet 14 TAKE ONE TABLET BY MOUTH TWICE A DAY TAKE ONE TABLET BY MOUTH TWICE A DAY SOLD: 05/14/2020 [facility] 10 mg 05/14/2020 12:00:00 AM EDT tablet 30 TAKE ONE TABLET BY MOUTH EVERY DAY TAKE ONE TABLET BY MOUTH EVERY DAY SOLD: 05/14/2020 [facility] 8-2 mg 03/21/2020 12:00:00 AM EDT film 30 PLACE ONE FILM UNDER THE TONGUE TWICE A DAY MAXIMUM DAILY DOSE = 2 PLACE ONE FILM UNDER THE TONGUE TWICE A DAY MAXIMUM DAILY DOSE = 2 SOLD: 03/21/2020 [facility] 100 mg 03/11/2020 12:00:00 AM EDT capsule 30 TAKE ONE CAPSULE BY MOUTH TWICE A DAY TAKE ONE CAPSULE BY MOUTH TWICE A DAY SOLD: 03/21/2020 [facility] 3 mg 03/08/2020 12:00:00 AM EDT tablet extended release 24hr 30 TAKE ONE TABLET BY MOUTH EVERY DAY IN THE MORNING TAKE ONE TABLET BY MOUTH EVERY DAY IN THE MORNING SOLD: 03/21/2020 [facility] Oxybutynin chloride 5 MG Oral Tablet OXYBUTYNIN CHLORIDE 01/2020 12:00:00 AM EDT tablet 60 TAKE ONE TABLET BY MOUTH TWI CE A DAY TAKE ONE TABLET BY MOUTH TWICE A DAY SOLD: 05/16/2020 [facility] Oxybutynin chloride 5 MG Oral Tablet OXYBUTYNIN CHLORIDE 01/2020 12:00:00 AM EDT tablet 60 TAKE ONE TABLET BY MOUTH TWI CE A DAY TAKE ONE TABLET BY MOUTH TWICE A DAY SOLD: 03/26/2020 [facility] 168 HR Ethinyl Estradiol 0.03721 MG/HR / norelgestromin 0.92702 MG/HR Transdermal Patch [Xulane] XULANE PATCH XULANE PATCH 03/03/2020 12:00:00 AM EDT completed 168 HR ethinyl estradiol 0.31021 MG/HR / norelgestromin 0.08210 MG/HR Transdermal System [Xulane] [facility] ([facility]) 5 mg 02/25/2020 12:00:00 AM EDT tablet extended release 24hr 30 TAKE ONE TABLET BY MOUTH EVERY DAY TAKE ONE TABLET BY MOUTH EVERY DAY SOLD: 05/16/2020 [facility] Hydroxyzine Hydrochloride 25 MG Oral Tab let hydroxyzine HCl 25 mg tablet TAKE ONE TABLET BY MOUTH THREE TIMES A DAY NEEDED hydroxyzine HCl 25 mg tablet TAKE ONE TABLET BY MOUTH THREE TIMES A DAY NEEDED completed hydroxyzine hydrochloride 25 MG Oral Tablet [facility]) Mirtazapine 15 MG Oral Tablet Mirtazapine 15 Mg Tablet Tablet, 15 Mg Oral Mirtazapine 15 Mg Tablet Tablet, 15 Mg Oral [address] [facility] Risperidone 3 MG Oral Tablet risperidone 3 mg tablet TAKE ONE TABLET BY MOUTH AT BEDTIME risperidone 3 mg tablet TAKE ONE TABLET BY MOUTH AT BEDTIME completed risperidone 3 MG Oral Tablet [facility]) Sertraline 50 MG Oral Tablet [Zoloft] Se rtraline Hcl 50 Mg Tablet Tablet, 50 Mg Oral Sertraline Hcl 50 Mg Tablet Tablet, 50 Mg Oral [address] [facility] Cephalexin 500 MG Oral Capsule cephalexi n 500 mg capsule TAKE ONE CAPSULE BY MOUTH THREE TIMES A DAY cephalexin 500 mg capsule TAKE ONE CAPSU LE BY MOUTH THREE TIMES A DAY completed ceph alexin 500 MG Oral Capsule [facility]) Risperidone 3 MG Oral Tablet [Risperdal] Risperidone (Risperdal) 3 Mg Tablet Tablet, 3 Mg Oral Risperidone (Risperdal) 3 Mg Tablet Tablet, 3 Mg Oral 3 completed At Bedtime [facility] buspirone hydrochloride 7.5 MG Oral Tabl et buspirone 7.5 mg tablet TAKE ONE TABLET BY MOUTH THREE TIMES A DAY buspirone 7.5 mg tablet TAKE ONE TABLET BY MOUTH THREE TIMES A DAY completed buspirone hydrochloride 7.5 MG Oral Tablet [place] ([facility]) Metronidazole 500 MG Oral Tablet metroni dazole 500 mg tablet 500 MG BY MOUTH AT BEDTIME FOR INFECTION metronidazole 500 mg tablet 500 MG BY MO UTH AT BEDTIME FOR INFECTION completed metronidazo le 500 MG Oral Tablet [place] ([facility]) Levothyroxine Sodium 0.05 MG Oral Tablet levothyroxine 50 mcg tablet TAKE ONE TABLET BY MOUTH EVERY DAY levothyroxine 50 mcg tablet TAKE ONE TAB LET BY MOUTH EVERY DAY completed levothyroxin e sodium 0.05 MG Oral Tablet [place] ([facility]) olanzapine 15 MG Oral Tablet Olanzapine 15 Mg Tablet T ablet, 15 Mg Oral Olanzapine 15 Mg Tablet Tablet, 15 Mg Oral [address] [facility] atomoxetine 10 MG Oral Capsule atomoxeti ne 10 mg capsule TAKE TWO CAPSULES BY MOUTH EVERY DAY atomoxetine 10 mg capsule TAKE TWO CAPSULES BY MOUTH E VERY DAY completed atomoxetine 10 MG Oral Capsule [place] ([facility]) Divalproex Sodium 500 MG Delayed Release Oral Tablet divalproex 500 mg tablet,delayed release TAKE ONE TABLET BY MOUTH TWICE A DAY divalproex 500 mg tablet,delayed release TAKE ONE TABLET BY MOUTH TWICE A DAY completed divalproex sodium 500 MG Delayed Release Oral Tablet [place] ([facility]) Trazodone Hydrochloride 100 MG Oral Tabl et trazodone 100 mg tablet TAKE ONE TABLET BY MOUTH AT BEDTIME trazodone 100 mg tablet TAKE ONE TABLET BY MOUTH AT BEDTIME completed trazodone hydr ochloride 100 MG Oral Tablet [place] ([facility]) Docusate Sodium 100 MG Oral Capsule docu sate sodium 100 mg capsule TAKE TWO CAPSULES BY MOUTH EVERY DAY NEEDED docusate sodium 100 mg capsule TAKE TWO CAPSULES BY MOUTH EVERY DAY NEEDED completed docusate sodium 100 MG Oral Capsule [facility]) 24 HR paliperidone 3 MG Extended Release Oral Tablet paliperidone ER 3 mg tablet,extended release 24 hr TAKE ONE TABLET BY MOUTH AT BEDTIME FOR ANTIPSYCHOTIC paliperidone ER 3 mg tablet,extended rel ease 24 hr TAKE ONE TABLET BY MOUTH AT BEDTIME FOR ANTIPSYCHOTIC completed 24 HR paliperidone 3 MG Extended Release Oral Tablet [place] ([facility]) Haloperidol 2 MG Oral Tablet haloperidol 2 mg tablet TAKE TWO TABLETS BY MOUTH THREE TIMES A DAY 8AM 1PM. AND 9PM haloperidol 2 mg tablet TAKE TWO TABLETS BY MOUTH THREE TIMES A DAY 8AM 1PM. AND 9PM completed haloperidol 2 MG Oral Tablet [facility] ([facility]) benztropine mesylate 1 MG Oral Tablet be nztropine 1 mg tablet TAKE ONE TABLET BY MOUTH TWICE A DAY NEEDED benztropine 1 mg tablet TAKE ONE TABLET BY MOUTH TWICE A DAY NEEDED completed benztropine mesylate 1 MG Oral Tablet [place] ([facility]) Amitriptyline Hydrochloride 25 MG Oral T ablet amitriptyline 25 mg tablet TAKE ONE TABLET BY MOUTH AT BEDTIME amitriptyline 25 mg tablet TAKE ONE TABL ET BY MOUTH AT BEDTIME completed amitriptyline hydrochloride 25 MG Oral Tablet [place] ([facility]) Loratadine 10 MG Oral Tablet loratadine 10 mg tablet TAKE ONE TABLET BY MOUTH EVERY DAY loratadine 10 mg tablet TAKE ONE TABLET BY MOUTH EVERY DAY completed loratadine 10 MG Oral Tablet [place] ([facility]) 24 HR paliperidone 6 MG Extended Release Oral Tablet paliperidone ER 6 mg tablet,extended release 24 hr TAKE ONE TABLET BY MOUTH EVERY MORNING paliperidone ER 6 mg tablet,extended release 24 hr TAKE ONE TABLET BY MOUTH EVERY MORNING completed 24 HR paliperidone 6 MG Extended Release Oral Tablet [facility] ([facility]) Buprenorphine 8 MG / Naloxone 2 MG Oral Strip [Suboxone] Buprenorphine Hcl/Naloxone Hcl (Suboxone 8 Mg-2 Mg Sl Film) 1 Each Film Film, 8 Mg Sublingual Buprenorphine Hcl/Naloxone Hcl (Suboxone 8 Mg-2 Mg Sl Film) 1 Each Film Film, 8 Mg Sublingual 8 completed Twice [facility]. atomoxetine 40 MG Oral Capsule atomoxeti ne 40 mg capsule TAKE ONE CAPSULE BY MOUTH EVERY DAY atomoxetine 40 mg capsule TAKE ONE CAPSULE BY MOUTH EVERY DA Y completed atomoxetine 40 MG Oral Capsule [place] ([facility]) Risperidone 2 MG Oral Tablet risperidone 2 mg tablet TAKE ONE TABLET BY MOUTH AT BEDTIME risperidone 2 mg tablet TAKE ONE TABLET BY MOUTH AT BEDTIME completed risperidone 2 MG Oral Tablet [place] ([facility]) Mirtazapine 15 MG Oral Tablet mirtazapine 15 mg tablet christine zapine 15 mg tablet completed mirtazapine 15 MG Oral Tablet [place] ([facility]) 24 HR Oxybutynin chloride 5 MG Extended Release Oral Tablet oxybutynin chloride ER 5 mg tablet,extended release 24 hr TAKE ONE TABLET BY MOUTH EVERY DAY oxybutynin chloride ER 5 mg tablet,extended release 24 hr TAKE ONE TABLET BY MOUTH EVERY DAY completed 24 HR oxybutynin chloride 5 MG Extended Release Oral Tablet [place] ([facility]) doxycycline hyclate 100 MG Oral Tablet d oxycycline hyclate 100 mg tablet TAKE ONE TABLET BY MOUTH TWICE A DAY doxycycline hyclate 100 mg tablet TAKE O NE TABLET BY MOUTH TWICE A DAY completed doxycycline hyclate 100 MG Oral Tablet [place] [facility] [facility] gabapentin 300 MG Oral Capsule gabapenti n 300 mg capsule TAKE ONE CAPSULE BY MOUTH TWICE A DAY gabapentin 300 mg capsule TAKE ONE CAPSU LE BY MOUTH TWICE A DAY completed gabapentin 300 M G Oral Capsule [place] ([facility]) olanzapine 10 MG Oral Tablet olanzapine 10 mg tablet TAKE ONE HALF 0.5 TABLET BY MOUTH EVERY IN THE MORNING AND ONE 1 TABLET AT BEDTIME olanzapine 10 mg tablet TAKE ONE HALF 0.5 TABLET BY MOUTH EVERY IN THE MORNING AND ONE 1 TABLET AT BEDTIME completed emy zapine 10 MG Oral Tablet [place] ([facility]) Fluoxetine 10 MG Oral Capsule fluoxetine 10 mg capsule TAKE ONE CAPSULE BY MOUTH EVERY MORNING fluoxetine 10 mg capsule TAKE ONE CAPSULE BY MOUTH DILIA RY MORNING completed fluoxetine 10 MG Oral Capsule [place] ([facility]) olanzapine 5 MG Oral Tablet olanzapine 5 mg tablet TAKE ONE TABLET BY MOUTH EVERY MORNING AT 8AM olanzapine 5 mg tablet TAKE ONE TABLET B Y MOUTH EVERY MORNING AT 8AM completed olanza pine 5 MG Oral Tablet [place] ([facility]) Prazosin 1 MG Oral Capsule prazosin 1 mg capsule TAKE ONE CAPSULE BY MOUTH AT BEDTIME prazosin 1 mg capsule TAKE ONE CAPSULE BY MOUTH AT BEDTIME completed prazosin 1 MG Oral Capsule [facility] A ([facility]) gabapentin 400 MG Oral Capsule gabapenti n 400 mg capsule TAKE ONE CAPSULE BY MOUTH FOUR TIMES A DAY gabapentin 400 mg capsule TAKE ONE CAPSU LE BY MOUTH FOUR TIMES A DAY completed gabapentin 400 MG Oral Capsule [place] ([facility]) Sertraline 25 MG Oral Tablet sertraline 25 mg tablet TAKE ONE TABLET BY MOUTH EVERY MORNING sertraline 25 mg tablet TAKE ONE TABLET BY MOUTH EVERY MORNI NG completed sertraline 25 MG Oral Tablet [facility] ([facility]) olanzapine 5 MG Disintegrating Oral Tabl et olanzapine 5 mg disintegrating tablet DISSOLVE ONE TABLET UNDER THE TONGUE EVERY DAY NEEDED FOR ANXIETY AGITATIONS olanzapine 5 mg disintegrating tablet DI SSOLVE ONE TABLET UNDER THE TONGUE EVERY DAY NEEDED FOR ANXIETY AGITATIONS completed olanzapine 5 MG Disintegrating Oral Tablet [place] ([facility]) Naproxen 500 MG Oral Tablet naproxen 500 mg tablet TAKE ONE TABLET BY MOUTH TWICE A DAY AT 6AM AND 6PM naproxen 500 mg tablet TAKE ONE TABLET B Y MOUTH TWICE A DAY AT 6AM AND 6PM completed naproxen 500 MG Oral Tablet [place] ([facility]) Docusate Sodium 100 MG Oral Capsule [Col gopi] Docusate Sodium (Colace) 100 Mg Capsule Capsule, 100 Mg Oral Docusate Sodium (Colace) 100 Mg Capsule Capsule, 100 Mg Oral 100 completed Three Time s a Day as needed [facility]. Divalproex Sodium 250 MG Delayed Release Oral Tablet divalproex 250 mg tablet,delayed release TAKE ONE TABLET BY MOUTH TWICE A DAY divalproex 250 mg tablet,delayed release TAKE ONE TABLET BY MOUTH TWICE A DAY completed divalproex sodium 250 MG Delayed Release Oral Tablet [place] ([facility]) topiramate 25 MG Oral Tablet topiramate 25 mg tablet TAKE TWO TABLETS BY MOUTH TWICE A DAY FOR HEADACHE topiramate 25 mg tablet TAKE TWO TABLETS BY MOUTH TWICE A DAY FOR HEADACHE completed to piramate 25 MG Oral Tablet [place] ([facility]) Prazosin 2 MG Oral Capsule prazosin 2 mg capsule TAKE ONE CAPSULE BY MOUTH AT BEDTIME prazosin 2 mg capsule TAKE ONE CAPSULE BY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 Amphetamine Screen,Urine Negative [facility] Benzodiazepines Scrn,Ur result Negative N ormal (applies to non-numeric results) [facility] Cocaine Screen,Urine Negative Normal (applies to non-num clementine results) [facility] Methadone Screen,Urine Negative Normal (applies to non-n umeric results) [facility] Cannabinoid Screen, Ur Negative [facility] Therapeutic Drug Ranges for Emergency an d Rehabilitation Threshold Levels (ng/mL) Cocaine 300 Opiates 300 Cannabinoids 50 Barbiturates 200 Benzodiazepine 200 Methadone 300 Amphetamines 1000 All positive findings are presumptive and unconfirmed. Confirmation of positive results are performed only at request of provider. Unconfirmed results must not be used for non-medical purposes (i.e. pre-employment and legal purposes) ID Date Data Source [id number] 01/27/2021 02:00:00 PM EDT [facility] Name Value Range Interpretation Code Description Data Kassy rce(s) Supporting Document(s) Respiratory specimen severe acute respir atory syndrome coronavirus 2 (SARS-CoV-2) RNA Negative (qualifier value) [place] [facility] This lab was ordered by [facility] Ric davila and reported by [facility]. ID Date Data Source [id number] 01/27/2021 02:35:00 PM EDT [facility] Negative results should be treated as pr esumptive and, if inconsistent with clinical signs and symptoms or necessary for patient management, should be tested with different authorized or cleared molecular tests. Negative results do not preclude SARS-CoV-2 infection and should not be used as the sole basis for patient management decisions. Negative results should be considered in the context of a patients recent exposures, history and the presence of clinical signs and symptoms consistent with COVID-19. This test has not been FDA cleared or approved; this test has been authorized by FDA under an Emergency Use Authorization for use by laboratories certified under the Clinical Laboratory Improvement Amendments of 1988 (CLIA), 42 U.S.C. 263a, to perform moderate complexity/high complexity tests and at the Point of Care (POC), i.e., in patient care settings operating under a CLIA Certificate of Waiver, Certificate of Compliance, or Certificate of Accreditation. Factsheets for healthcare providers: https://www.fda.gov/media/529804/download Factsheets for patients: https://www.fda.gov/media/276083/download The ID NOW Instrument is a rapid molecular in vitro diagnostic test utilizing an isothermal nucleic acid amplification technology intended for the qualitative detection of nucleic acid from the SARS-CoV-2 viral RNA. THIS IS A STATE REPORTABLE COMMUNICABLE DISEASE. Manual entry verified by Jessika Villareal 01/27/21 1435 Test Performed By: [facility] [address] [place] [address] Director: Trinidad Zarco MD Name Value Range Interpretation Code Description Data Kassy rce(s) Supporting Document(s) ID Date Data Source [id number] 01/18/2021 01:26:00 PM EDT [facility]. DISCHARGE SUMMARY, ADULTDischarge Diagno sis1. Opiate abuse, continuous2. Hypotension, chronicPreceding HistoryPreceding history / Reason for acvgqzalt60-extr-gar female who presented today for getting detox done. She usesheroin 1 bundle per day, last use was at 6 a.m. today, Sylvie 1-2 gram aday, last use was 1 week ago, meth 1-2 gram daily and with last use 2days ago, cannabis daily a couple of buffy. Today prior to [facility], the patient took multiple pills of the gabapentin 600milligram. Probably 5-6. She says she took them to control herwithdrawal at home. At the time of my eval uation patient is quite sleepyprobably secondary to taking multiple doses of the Neurontin. PoisonControl Center is being consulted by the nurse.Patient tells me that she is currently undergoing withdrawal and wantsmedications. The COWS is 4 and CIWA is 1.HOSPITAL COURSE:DATE OF ADMISSION: 01/14/21DATE OF DISCHARGE: 01/18/21Admitted by Kena Nance DO and has been in the hospital for 4days.CONDITION AT DISCHARGE: StableCONSULTATIONS: NonePROCEDURES: NoneHospital course: 35 yo F with polysubstance abuse, schizoaffecivedisorder, bipolar, anxiety and [facility]. Patient attempted to detox athome by taking multupe Gabapentin pills and then presented to thehospital. COWS was 4 and CIWA was 1 on admission. Poison Control wascontacted and endorsed to monitor the patient for 6 hours off Gabapentin.COWS protocol was initiated. Pt was treated with Hydroxyzine andClonidine for symptomatic management. Pt was subccesfully resta rted onSuboxone 8mg BID. Home medications were continued. Systolic bloodpressure was noted to be in the 80s when the patient was sleeping. Ptendorsed that she has a very low heart rate and blood pressure atbaseline. Pt was never symptomatic from hypotension. Pt was noted to havean open wound in her left antecubital region and started on Keflex.Keflex was transitioned to Doxycyline at discharge.Patient was hemodynamically stable and safe for discharge. Patient wasseen and examined prior to discharge. Patient is going to stay with herstepdad and told she can go to inpatient rehab at [facility] on 01/22. Marilynn entendorsed that she would need refills for 5 days on all her homemedications which was provided.Physical ExamGENERAL APPEARANCE: The patient is sleepy but arousable, comfortable, well nourished, in noacute distress.HEENT: Head is normocephalic atraumatic. Pupils are equal. Normal sclerae.NECK: Supple, without meningismus. No JVD, no tracheal deviation.Symmetrical. No gross deformities.HEART: Regular rate and rhythm. No murmurs or gallops appreciated. No JVD.LUNGS: Symmetric expansion. No tracheal deviation. No retractions, noaccessory muscle use. No audible wheezing. No respiratory distress.ABDOMEN: Soft, nontender, nondistended. No guarding or rigidity.EXTREMITIES: Without cyanosis, clubbing or edema.NEUROLOGICAL: Cranial nerves II through XII are grossly intact.PSYCHIATRIC: Flat affect. Denies suicidal or homicidal ideations.SKIN: Clean, dry, intact. No rashes grossly visible. + track chu. Op[place]ore in L antecubitalActivity:As toleratedFollow-up InstructionsFollow-Up:W/ Primary Care Provider, in 1 week, Inpatient rehab at [facility] Care Provider:NONENursing Appointments ScheduledOther Follow up with:PT IS TO HAVE INPT REHAB AT [facility] 01/22/21KRISITN COUNCELOR TO CALL [facility] TO PROVIDE ADESIGNATED TIME FOR ARRIVALMEDICATIONSMedication ReconciledBuprenorphine HCl/Naloxone HCl(Suboxone 8 MG-2 MG Sl Film) 1 EACH FILM 8 MG SL BID 5 Days #10 FILM,Ref 0Prescribed by Kena Chowdhury DO on 01/18/21Last Action: No Recorded ActionDocusate Sodium(Colace) 100 MG CAPSULE 200 MG PO DAILY PRN 5 Days #10 TAB, Ref 0Prescribed by Kena Chowdhury DO on 01/18/21Last Action: No Recorded ActionDoxycycline Yrafeje458 MG TABLET 100 MG PO BID 10 Days #20 TAB, Ref 0Prescribed by Kena Chowdhury DO on 01/18/21Last Action: No Recorded OepndtClkkrpawba326 MG TABLET 600 MG PO TID 5 Days #15 TAB, Ref 0Prescribed by Kena Chowdhury DO on 01/18/21Last Action: No Recorded RbqlwkKmyghzyauxx41 MG TABLET 15 MG PO HS 5 Days #5 TAB, Ref 0Prescribed by Kena Chowdhury DO on 01/18/21Last Action: No Recorded ActionMulti-Vit/Mineral(Multivitamin Tablet) 1 TAB TAB 1 TAB PO DAILY 5 Days #5 TAB, Ref 0Prescribed by Kena Chowdhury, on 01/18/21Last Action: No Recorded RrzyknSjqqwgrmto84 MG TABLET 15 MG PO HS 5 Days #5 TAB, Ref 0Prescribed by Kena Chowdhury, on 01/18/21Last Action: No Recorded ActionPrazosin HCl(Minipress) 2 MG CAPSULE 2 MG PO HS 5 Days #5 CAPSULE, Ref 0Prescribed by Kena Chowdhury, on 01/18/21Last Action: No Recorded ActionRisperidone(Risperdal) 3 MG TABLET 3 MG PO HS 5 Days #5 TAB, Ref 0Prescribed by Kena Chowdhury, on 01/18/21Last Action: No Recorded ActionSertraline HCl50 MG TABLET 50 MG PO HS 5 Days #5 TAB, Ref 0Prescribed by Kena Chowdhury, on 01/18/21Last Action: No Recorded ActionVACCINE STATUSCurrent influenza vaccination?:YesDate of Influenza Vacc:2020Current pneumonia vaccination?:NoWant pneumonia Vaccination?:PT DECLINES VACCINATIONDischarge Plan1. Opiate detox. As per protocol-COWS scale (0)-Cw Suboxone 8mg BID-Counselor is following - inpatient bed available at [facility] on 01/22.2. Gabapentin overdose. Poison control recommended holding Gabapentin andmonitoring for 6 hours on admission. Gabapentin was resumed prior todischarge.3. Anxiety/depression/schizoaffective disorder/bipolar disorder. Resumehome medications.4. Tobacco abuse. Patient counseled on admission. Nicotine patch5. Open sore in antecubital region. Treated with Keflex and mckeon sitionedto Doxycycline at discharge for 10 daysCode Status: Full codeGI prophylaxis: ProtonixVTE prophylaxis: Early ambulationDispo: Inpatient bed available at [facility] on 01/22. Stable for discharge andwill stay with her stepdad.Time spent60 MinutesDictated on 01/18/21 1326 by Kena Chowdhury, DOTranscribed on 01/18/21 1326 by Kena Chowdhury, DOSign by Kena Chowdhury DO on 01/18/21 1404Sign by: Kena Chowdhury DO Name Value Range Interpretation Code Description Data Kassy rce(s) Supporting Document(s) ID Date Data Source [id number] 01/17/2021 02:41:00 PM EDT [employer]. Counselor Progress NotePatient NoteCOUNS LIZA SPOKE WITH DR ABOUT CARE AFTER BEING DISCHARGED, PATIENT TOLDDR SHE WOULD BE STAYING WITH HER STEPDAD. COUNSELOR CALLED HER STEPDAD MARKY DIDN'T ANSWER AND SHE LEFT A MESSAGE, WHICH HE DID CALL BACK. HE DIDTELL COUNSELOR THAT HE WOULD TAKE GOOD CARE OF HER SHE LIVES WITH HIMAND HE IS THE ONE THAT HANDLES HER MEDICATIONS. SO PATIENT WITH BE THEREUNTIL 01/22/21 WHEN HER BED IS OPEN AT [facility]. ALSO COUNSELOR SET UPTANSPORTATION FOR PATIENT SHE COULD NOT GET A RIDE HOME. SO HER RIDEWILL BE HERE TOMORROW AT 1:00 PM AFTER SHE IS DISCHARGED.Dictated on 01/17/21 1441 by Cherrie,TriciaTranscribed on 01/17/21 1441 by Cherrie,TriciaSign by CherrieNuzhat on 01/17/21 1446Sign by: Nuzhat Grier Name Value Range Interpretation Code Description Data Kassy rce(s) Supporting Document(s) ID Date Data Source [id number] 01/17/2021 11:27:00 AM EDT [employer]. Counselor Progress NotePatient NoteDR. Katherine ELVIS IN TO TALK TO COUNSELOR ABOUT PATIENT AND HER BEING DISCHARGEDAND HER AFTER PLANS. COUNSELOR CALLED [facility] AND TALKED TOA CONFERENCE DIRECTOR ABOUT PATIENT GOING THERE ONLY TO FIND OUT THAT IT'S A DETOXCENTER WELL. COUNSELOR HAD GONE TO TALK TO THE DR ABOUT [facility] TO LET HIM KNOW WHAT SHE HAD FOUND OUT. TOLD COUNSELOR THAT EVIE TALKED TO PATIENT ABOUT HER STAYING WITH HER STEPDAD UNTIL HER BEDWAS READY AT [facility] ON 01/22/21. SO COUNSELOR WENT TO TALK TO PATIENT TO MAKESURE THAT IS WHAT SHE WANTED AND MADE SURE THAT THE HANH WAS ON THECALL LIST CONSENT FORM, WHICH HE WAS. COUNSELOR HAD CALLED [facility] AND HEDIDN'T ANSWER BUT SHE HAD LEFT A VOICEMESSAGE FOR HIM TO CALL HER BACK.COUNSELOR WILL UP DATE WITH THE AFTER PLANS WHEN HE RETURNS HER CALL.Dictated on 01/17/21 1127 by Cherrie,TriciaTranscribed on 01/17/21 1127 by Cherrie,TriciaSign by Cherrie,Nuzhat on 01/17/21 1133Sign by: Cherrie,Nuzhat Name Value Range Interpretation Code Description Data Kassy rce(s) Supporting Document(s) ID Date Data Source [id number] 01/17/2021 10:19:00 AM EDT [employer]. Counselor Progress NotePatient NoteCOUNS ELOR WENT TO CHECK ON PATIENT THIS MORNING AND SHE WAS STILLSLEEPING, COUNSELOR ASKED ONE OF THE NURSES HOW SHE SLEPT LAST NIGHT, SHEREPLIED SHE HAS BEEN SLEEPING GOOD, ALSO THAT HER APPETITE HAS BEENIMPROVING. SHE ALSO STATED THAT PATIENT HAS A INFECTION ON HER ARM FROMWHERE SHE WAS PUTTING INJECTIONS SO THEY HAD STARTED HER ON ANTIBOTICS.SO COUNSELOR WILL CHECK ON HER AGAIN IN A BIT AND TALK TO HER TO SEE HOWSHE IS FEELING.Dictated on 01/17/21 1019 by Cherrie,TriciaTranscribed on 01/17/21 1019 by Cherrie,TriciaSign by Cherrie,Nuzhat on 01/17/21 1023Sign by: CherrieNuzhat Name Value Range Interpretation Code Description Data Kasys rce(s) Supporting Document(s) ID Date Data Source [id number] 01/17/2021 06:53:00 AM EDT [employer]. Provider Short NotePatient NoteCalled by RN that patient has left AC area swelling. Patient was seen.She has small area of cellulitis in the left AC area. Will treat withp.o. cephalexin.Dictated on 01/17/21652 by Arcelia Tate M.D.Transcribed on 01/17/21652 by Brianne Tate by Arcelia Tate M.D. on 01/19/212034Sign by: Arcelia Tate M.D. Name Value Range Interpretation Code Description Data Kassy rce(s) Supporting Document(s) ID Date Data Source [id number] 01/16/2021 03:24:00 PM EDT [employer] Counselor Progress NotePatient Dominic DE JESUS WENT BY TO SEE PATIENT TO SEE HOW SHE WAS DOING AND SHE WASSLEEPING. COUNSELOR TRIED TO WAKE HER UP BUT SHE WOULDN'T. SO COUNSELORLEFT BACK TO HER OFFICE.Dictated on 01/16/21 1524 by Cherrie,TriciaTranscribed on 01/16/21 1524 by Cherrie,TriciaSign by CherrieNuzhat on 01/16/21 1526Sign by: Nuzhat Grier Name Value Range Interpretation Code Description Data Kassy rce(s) Supporting Document(s) ID Date Data Source [id number] 01/16/2021 02:08:00 PM EDT [facility] [employer] Counselor Progress NotePatient Dominic DE JESUS WENT BACK LATER ON IN THE DAY TO CHECK BACK ON PATIENT THECURTAINS WERE OPEN AND IT WAS NICE AND BRIGHT IN THERE, AND PATIENT WASUP. COUNSELOR ASKED HOW SHE WAS DOING AND SHE REPLIED TIRED. SHE ISSLEEPING A LOT DURING THE DAY WHICH THEN IS WHY SHE IS HAVING A HARD TIMESLEEPING AT NIGHT.Dictated on 01/16/21 1408 by Cherrie,TriciaTranscribed on 01/16/21 1408 by Cherrie,TriciaSign by CherrieNuzhat on 01/16/21 1413Sign by: Nuzhat Grier Name Value Range Interpretation Code Description Data Kassy rce(s) Supporting Document(s) ID Date Data Source [id number] 01/16/2021 02:04:00 PM EDT [facility] [employer] Counselor Progress NotePatient Dominic DE JESUS WENT AND CHECKED IN ON PATIENT THIS MORNING, SHE WAS UP BUTLAYING DOWN. COUSNELOR ASKED HOW SHE WAS DOING SHE SAID SHE WAS VERYTIRED. COUNSELOR ASKED HER WHY, WAS SHE NOT SLEEPING WELL? PATIENTREPLIED THAT SHE WASN'T SLEEPING GOOD AT NIGHT. SO COUNSELOR LEFT TO LETHER GET SOME REST.Dictated on 01/16/21 1404 by CherrieTriciaTranscribed on 01/16/21 1404 by Kyra GrieriaSign by Nuzhat Grier on 01/16/21 1408Sign by: Nuzhat Grier Name Value Range Interpretation Code Description Data Kassy rce(s) Supporting Document(s) ID Date Data Source [id number] 01/15/2021 04:16:00 PM EDT [employer] Counselor Progress NotePatient NoteCOUNS LIZA BLAS, MS, CASAC-T, ENTERED THE PATIENT'S ROOM. SHEWAS ASLEEP. COUNSELOR NOTED HER TO SKIN COLOR TO BE PALE AND SHE WASSWEATING AND HER MOUTH WAS OPEN. COUNSELOR CONSULTED WITH ARMANDO GALVAN. SHEREPORTED PATIENT DID NOT SLEEP LAST NIGHT OR EAT YESTERDAY. SHE REPORTEDPATIENT ATE ABOUT 30% OF HER LUNCH AND THEN HAS BEEN ASLEEP SINCE THATTIME.Dictated on 01/15/21 1616 by Sydnie BlasTranscribed on 01/15/21 1616 by Zach Blas by Sydnie Blas on 01/15/21 1618Sign by: Sydnie Blas Name Value Range Interpretation Code Description Data Kassy rce(s) Supporting Document(s) ID Date Data Source [id number] 01/15/2021 01:59:00 PM EDT [employer] Counselor Progress NotePatient Andrey [facility], CONFIRMED A 4 WEEK WAIT LIST FOR [facility]PAT[facility]ACILITY [facility].Dictated on 01/15/21 1359 by Sydnie BlasTranscribed on 01/15/21 1359 by Zach Blas by Sydnie Blas on 01/15/21 1400Sign by: Sydnie Blas Name Value Range Interpretation Code Description Data Kassy rce(s) Supporting Document(s) ID Date Data Source [id number] 01/15/2021 01:36:00 PM EDT [employer] Counselor Progress NotePatient NoteCONFI RMED BED AT [facility] 01/22/21 - ADMISSION TIME PENDING.Dictated on 01/15/21 1336 by Sydnie BlasTranscribed on 01/15/21 1336 by Sydnie BlasSign by Sydnie Blas on 01/15/21 1337Sign by: Sydnie Blas Name Value Range Interpretation Code Description Data Kassy rce(s) Supporting Document(s) ID Date Data Source [id number] 01/14/2021 03:22:00 PM EDT [employer] Counselor Progress NotePatient NoteCOUNS LIZA HAD WENT TO SEE IF PATIENT WAS UP BUT SHE WAS VERY DEEP INSLEEP, COUNSELOR WENT TO NURSE AND ASKED IF SHE HAD BEEN GIVENMEDICATION. NURSE HAD TOLD COUNSELOR YES AND ALSO FOR HER ANXIETY ASWELL. SO SHE WAS SLEEPING STILL AND VERY HEAVY. SO COUNSELOR WAS NOT ABLETO DO HER EVALUATION FOR DANIELA.Dictated on 01/14/21 1522 by Cherrie,TriciaTranscribed on 01/14/21 1522 by Cherrie,TriciaSign by Cherrie,Nuzhat on 01/14/21 1525Sign by: Nuzhat Grier Name Value Range Interpretation Code Description Data Kassy rce(s) Supporting Document(s) ID Date Data Source [id number] 01/14/2021 03:00:00 PM EDT [employer] Counselor Progress NotePatient NoteCOUNS LIZA WENT TO SEE IF PATIENT WAS UP TO DO EVALUATION AND SHE WASSLEEPING.Dictated on 01/14/21 1500 by Cherrie,TriciaTranscribed on 01/14/21 1500 by Cherrie,TriciaSign by Cherrie,Nuzhat on 01/14/21 1501Sign by: Cherrie,Nuzhat Name Value Range Interpretation Code Description Data Kassy rce(s) Supporting Document(s) ID Date Data Source [id number] 01/14/2021 01:44:00 PM EDT [employer] Systems. Counselor Progress NotePatient Dominic DE JESUS WENT INTO PATIENTS ROOM AT 12:30 TO DO THE EVALUATION, THEPATIENT WAS SLEEPING SO COUNSELOR HAD LEFT THE PATIENT TO SLEEP.COUNSELOR CAME BACK TO HER OFFICE AND REPORTED PATIENT STATUS TO ALFREDA.NURSING CONFERENCE DIRECTOR, SABINE PECK, WOKE THE PATIENT AND REQUESTED SHECOME TO THE COUNSELING OFFICE TO COMPLETE THE EVALUATION.PATIENT CAME INTO THE COUNSELING OFFICE AND SAT DOWN. COUNSELOR ADVISEDSHE NEEDED TO COMPLETE AN EVALUATION. PATIENT SAID "CAN I DO IT LATER? IDON'T WANT TO DO IT RIGHT NOW." PATIENT PRESENTED TIRED AND PALE.COUNSELOR HAD TOLD PATIENT SHE WOULD BE IN WHEN SHE IS AWAKE BEFORE 4 TODO HER EVALUATION.Dictated on 01/14/21 1344 by Cherrie,TriciaTranscribed on 01/14/21 1344 by Kyra GrieriaSign by CherrieNuzhat on 01/14/21 1355Sign by: CherrieNuzhat Name Value Range Interpretation Code Description Data Kassy rce(s) Supporting Document(s) ID Date Data Source [id number] 01/14/2021 09:26:00 AM EDT [employer]. Counselor Progress NotePatient Dominic DE JESUS ALONG WITH [employer] LINER INSTALLER WENT INTO PATIENTS ROOM AND ASKED HOW SHE WASDOING. PATIENT RESPONDED SHE WAS DOING OK. COUNSELOR INFORMED PATIENTTHAT SHE WAS HERE IF SHE NEEDED HER TO TALK OR ANYTHING.Dictated on 01/14/21 09 by Cherrie,TriciaTranscribed on 01/14/21925 by CherrieTriciaSign by Cherrie,Nuzhat on 01/14/21 0933Sign by: Cherrie,Nuzhat Name Value Range Interpretation Code Description Data Kassy rce(s) Supporting Document(s) ID Date Data Source [id number] 01/13/2021 04:10:00 PM EDT [facility] Name Value Range Interpretation Code Description Data Kassy rce(s) Supporting Document(s) SARS-CoV-2 (COVID-19) RNA [Presence] in Respiratory specimen by IRIS with probe detection Negative; No COVID-2 RNA detected by PCR. [place] This lab was ordered by [facility] and reported by . ID Date Data Source [id number] 12/08/2020 03:19:00 PM EDT [facility]) Name Value Range Interpretation Code Description Data Kassy rce(s) Supporting Document(s) influenza A amplification negative negative Influenza a Amplification [facility]) influenza B amplification negative negative Influenza B Amplification [facility]) RSV amplification negative negative RSV Amplification [facility]) sars covid-19 amplification negative negative Sars Cov id-19 Amplification [facility]) ID Date Data Source [id number] 12/08/2020 03:19:00 PM EDT [facility] Name Value Range Interpretation Code Description Data Kassy rce(s) Supporting Document(s) SARS coronavirus 2 RNA [Presence] in Res piratory specimen by IRIS with probe detection NEGATIVE [place] This lab was ordered by [facility] a nd reported by [facility]. ID Date Data Source [id number] 12/08/2020 09:19:00 AM EDT [facility]) Name Value Range Interpretation Code Description Data Kassy rce(s) Supporting Document(s) thyroid stimulating hormone 1.050 uIU/mL 0.358-3.740 Thyroid Stimulating Hormone [facility]) ID Date Data Source [id number] 12/08/2020 09:19:00 AM EDT [facility]) Name Value Range Interpretation Code Description Data Kassy rce(s) Supporting Document(s) acetaminophen level < 2.0 10.0-30.0 Below low normal Acetaminop hen Level [facility]) ID Date Data Source [id number] 12/08/2020 09:19:00 AM EDT [place] ([facility]) Name Value Range Interpretation Code Description Data Kassy rce(s) Supporting Document(s) salicylate level 2.7 mg/dL 5.0-30.0 Below low normal Salicylate Le jose [place] ([facility]) ID Date Data Source [id number] 12/08/2020 09:19:00 AM EDT [place] ([facility]) Name Value Range Interpretation Code Description Data Kassy rce(s) Supporting Document(s) ethyl alcohol (ethanol) < 0.003 0.000-0.010 Ethyl Alcoh ol (Ethanol) [place] ([facility]) ID Date Data Source [id number] 12/08/2020 09:19:00 AM EDT [facility]) Name Value Range Interpretation Code Description Data Kassy rce(s) Supporting Document(s) glucose, fasting 93 mg/dL 70-100 Glucose, Fasting AT [facility]) blood urea nitrogen 10 mg/dL 7-18 Blood Urea Nitro gen [place] ([facility]) creatinine for GFR 0.61 mg/dL 0.55-1.30 Creatinine for GF R [place] ([facility]) glomerular filtration rate > 60.0 >60 Glomerula r Filtration Rate [place] ([facility]) sodium level 140 mEq/L 136-145 Sodium Level [place] ([facility]) chloride level 111 mEq/L 98-107 Above high normal Chloride Level [place] ([facility]) potassium serum 4.1 mEq/L 3.5-5.1 Potassium Serum ATH NA ([facility]) anion gap 7 mEq/L 8-16 Below low normal Anion Gap [place] ( [facility]) calcium level 9.9 mg/dL 8.5-10.1 Calcium Level [place] ( [facility]) carbon dioxide level 22 mEq/L 21-32 Carbon Dioxide Level [facility]) ID Date Data Source [id number] 12/08/2020 09:19:00 AM EDT [facility] ([facility]) Name Value Range Interpretation Code Description Data Kassy rce(s) Supporting Document(s) AST/SGOT 28 U/L 7-37 AST/SGOT [facility] ([facility]) alkaline phosphatase 90 U/L 45-117 Alkaline Phosph atase [facility] ([facility]) ALT/SGPT 26 U/L 12-78 ALT/SGPT [facility] ([facility]) bilirubin,total 0.3 mg/dL 0.2-1.0 Bilirubin,total AT[facility] ([facility]) bilirubin,direct < 0.1 0.0-0.2 Bilirubin,direct AT [facility] ([facility]) albumin 3.9 gm/dL 3.2-5.2 Albumin [facility] ([facility]) total protein 8.4 gm/dL 6.4-8.2 Above high normal Total Protein A [facility] ([facility]) albumin/globulin ratio 1.2-2.2 Below low normal Albumin /globulin Ratio [facility] ([facility]) ID Date Data Source [id number] 12/08/2020 09:19:00 AM EDT [facility] ([facility]) Name Value Range Interpretation Code Description Data Kassy rce(s) Supporting Document(s) white blood count 9.1 10 4.0-10.0 White Blood Count [facility] ([facility]) red blood count 4.31 10 4.00-5.40 Red Blood Count ATHE NA ([facility]) hemoglobin 12.8 g/dL 12.0-15.5 Hemoglobin [facility] ([facility]) hematocrit 39.2 % 36.0-47.0 Hematocrit [facility] ([facility]) mean corpuscular volume 91.0 fL 80.0-96.0 Mean Corpusc ular Volume [facility] ([facility]) mean corpuscular hemoglobin 29.7 pg 27.0-33.0 Mean Cor puscular Hemoglobin [facility] ([facility]) mean corpuscular HGB conc 32.7 g/dL 32.0-36.5 Mean Corpu scular HGB Conc [facility] ([facility]) platelet count, automated 276 10 150-450 Platelet C ount, Automated [facility] ([facility]) red cell distribution width 13.7 % 11.5-14.5 Red Cell Distribution Width [facility] ([facility]) nucleated red blood cell % 0.0 % 0-0 Nucleated Red Blood Cell % [facility] ([facility]) ID Date Data Source [id number] 12/08/2020 08:11:00 AM EDT [facility] ([facility]) Name Value Range Interpretation Code Description Data Kassy rce(s) Supporting Document(s) amphetamines level urine positive negative Above high andrea l Amphetamines Level Urine [facility] ([facility]) barbiturates urine negative negative Barbiturates Urin e [facility] ([facility]) benzodiazepines urine negative negative Benzodiazepine s Urine [facility] ([facility]) cannabinoids urine positive negative Above high normal Cannabinoi ds Urine [facility] ([facility]) cocaine metabolite urine negative negative Cocaine Met abolite Urine [facility] ([facility]) opiates urine negative negative Opiates Urine [place] ( [facility]) methadone urine negative negative [facility] phencyclidine urine negative negative Phencyclidine Ur ine [facility] ([facility]) ID Date Data Source [id number] 12/07/2020 09:14:00 AM EDT [place] ([facility]) Name Value Range Interpretation Code Description Data Kassy rce(s) Supporting Document(s) istat troponin 0.01 NG/mL 0.00-0.08 Istat Troponin [facility] ([facility]) ID Date Data Source [id number] 12/07/2020 09:12:00 AM EDT [facility]) Name Value Range Interpretation Code Description Data Kassy rce(s) Supporting Document(s) istat HCT 38.0 % 38.0-51.0 Istat HCT [facility] ([facility]) istat sodium 138 mEq/L 136-145 Istat Sodium [facility] ([facility]) istat glucose 111 mg/dL 70-105 Above high normal Istat Glucose A THENA ([facility]) istat Ca++ 4.7 mg/dL 4.5-5.3 Istat Ca++ [facility] ([facility]) istat potassium 3.9 mEq/L 3.5-5.1 Istat Potassium ATHE NA ([facility]) istat CO2 23.0 mm/L 23.0-27.0 Istat CO2 [facility] ([facility]) istat chloride 105 mEq/L 98-109 Istat Chloride [facility] ([facility]) istat BUN 9 mg/dL 8-26 Istat BUN [facility] ([facility]) istat creatinine 0.6 mg/dL 0.6-1.3 Istat Creatinine AT [facility] ([facility]) ID Date Data Source [id number] 12/01/2020 03:02:00 AM EDT [facility] Name Value Range Interpretation Code Description Data Kassy rce(s) Supporting Document(s) SARS coronavirus 2 RNA [Presence] in Res piratory specimen by IRIS with probe detection NEGATIVE [place] This lab was ordered by [facility] a nd reported by [facility]. ID Date Data Source [id number] 09/15/2020 03:35:50 PM EST [facility] ([facility]) Name Value Range Interpretation Code Description Data Kassy rce(s) Supporting Document(s) Color: yellow; Glucose: nega tive; Blood: small; pH: 6.0; Protein: small; Nitrite: positive; Leukocytes: moderate Abnormal (appl ies to non-numeric results) Urine Dipstick [facility] ([facility]) ID Date Data Source [id number] 09/15/2020 03:35:12 PM EST [facility] ([facility]) Name Value Range Interpretation Code Description Data Kassy rce(s) Supporting Document(s) NegativeLot: [id number]: 03/31/2022 High Sensitivity Urine Test [place] ([facility]) ID Date Data Source [id number] 06/02/2020 02:08:00 PM EST [place] ([facility]) Name Value Range Interpretation Code Description Data Kassy rce(s) Supporting Document(s) alkaline phosphatase 75 U/L 45-117 Alkaline Phosph atase [facility] ([facility]) ALT/SGPT 74 U/L 12-78 ALT/SGPT [facility] ([facility]) AST/SGOT 58 U/L 7-37 Above high normal AST/SGOT [place] ([facility]) total protein 7.7 gm/dL 6.4-8.2 Total Protein [facility] ( [facility]) bilirubin,total 0.4 mg/dL 0.2-1.0 Bilirubin,total AT[facility] ([facility]) bilirubin,direct 0.1 mg/dL 0.0-0.2 Bilirubin,direct AT [facility] ([facility]) albumin/globulin ratio 1.2-2.2 Below low normal Albumin /globulin Ratio [facility] ([facility]) albumin 3.7 gm/dL 3.2-5.2 Albumin [facility] ([facility]) ID Date Data Source [id number] 06/02/2020 02:08:00 PM EST [facility] ([facility]) Name Value Range Interpretation Code Description Data Kassy rce(s) Supporting Document(s) amphetamines level urine positive negative Above high andrea l Amphetamines Level Urine [facility] ([facility]) benzodiazepines urine negative negative Benzodiazepine s Urine [facility] ([facility]) barbiturates urine negative negative Barbiturates Urin e [facility] ([facility]) cannabinoids urine positive negative Above high normal Cannabinoi ds Urine [facility] ([facility]) cocaine metabolite urine negative negative Cocaine Met abolite Urine [facility] ([facility]) methadone urine positive negative Above high normal Methadone Uri ne [facility] ([facility]) phencyclidine urine negative negative Phencyclidine Ur ine [facility] ([facility]) opiates urine positive negative Above high normal Opiates Urine A [place] ([facility]) ID Date Data Source [id number] 06/02/2020 02:08:00 PM EST [facility] ([facility]) Name Value Range Interpretation Code Description Data Kassy rce(s) Supporting Document(s) white blood count 5.8 10 4.0-10.0 White Blood Count [place] ([facility]) red blood count 3.95 10 4.00-5.40 Below low normal Red Blood Coun t [place] ([facility]) hemoglobin 12.2 g/dL 12.0-15.5 Hemoglobin [place] ([facility]) mean corpuscular volume 94.2 fL 80.0-96.0 Mean Corpusc ular Volume [place] ([facility]) hematocrit 37.2 % 36.0-47.0 Hematocrit [place] ([facility]) mean corpuscular hemoglobin 30.9 pg 27.0-33.0 Mean Cor puscular Hemoglobin [place] ([facility]) mean corpuscular HGB conc 32.8 g/dL 32.0-36.5 Mean Corpu scular HGB Conc [place] ([facility]) red cell distribution width 12.8 % 11.5-14.5 Red Cell Distribution Width [place] ([facility]) nucleated red blood cell % 0.0 % 0-0 Nucleated Red Blood Cell % [place] ([facility]) platelet count, automated 195 10 150-450 Platelet C ount, Automated [facility] ([facility]) ID Date Data Source [id number] 06/02/2020 02:08:00 PM EST [facility] ([facility]) Name Value Range Interpretation Code Description Data Kassy rce(s) Supporting Document(s) HCG, serum qualitative negative negative HCG, Serum Qu alitative [place] ([facility]) ID Date Data Source [id number] 06/02/2020 02:08:00 PM EST [facility] ([facility]) Name Value Range Interpretation Code Description Data Kassy rce(s) Supporting Document(s) thyroid stimulating hormone 1.690 uIU/mL 0.358-3.740 Thyroid Stimulating Hormone [facility] ([facility]) ID Date Data Source [id number] 06/02/2020 02:08:00 PM EST [facility] ([facility]) Name Value Range Interpretation Code Description Data Kassy rce(s) Supporting Document(s) acetaminophen level < 2.0 10.0-30.0 Below low normal Acetaminop hen Level [facility]) ID Date Data Source [id number] 06/02/2020 02:08:00 PM EST [facility] ([facility]) Name Value Range Interpretation Code Description Data Kassy rce(s) Supporting Document(s) salicylate level < 1.7 5.0-30.0 Below low normal Salicylate Le jose [facility] ([facility]) ID Date Data Source [id number] 06/02/2020 02:08:00 PM EST [facility] ([facility]) Name Value Range Interpretation Code Description Data Kassy rce(s) Supporting Document(s) ethyl alcohol (ethanol) < 0.003 0.000-0.010 Ethyl Alcoh ol (Ethanol) [facility] ([facility]) ID Date Data Source [id number] 06/02/2020 02:08:00 PM EST [facility] ([facility]) Name Value Range Interpretation Code Description Data Kassy rce(s) Supporting Document(s) creatinine for GFR 0.71 mg/dL 0.55-1.30 Creatinine for GF R [place] ([facility]) blood urea nitrogen 7 mg/dL 7-18 Blood Urea Nitro gen [place] ([facility]) glucose, fasting 82 mg/dL 70-100 Glucose, Fasting [facility] ([facility]) glomerular filtration rate > 60.0 >60 Glomerula r Filtration Rate [facility] ([facility]) sodium level 139 mEq/L 136-145 Sodium Level [facility] ([facility]) potassium serum 3.6 mEq/L 3.5-5.1 Potassium Serum ATHE NA ([facility]) anion gap 6 mEq/L 8-16 Below low normal Anion Gap [facility] ( [facility]) carbon dioxide level 24 mEq/L 21-32 Carbon Dioxide Level [facility] ([facility]) chloride level 109 mEq/L 98-107 Above high normal Chloride Level [facility] ([facility]) calcium level 8.8 mg/dL 8.5-10.1 Calcium Level [place] ( [facility]) ID Date Data Source [id number] 06/01/2020 01:01:00 PM EST [facility] ([facility]) Name Value Range Interpretation Code Description Data Kassy rce(s) Supporting Document(s) amphetamines level urine positive negative Above high andrea l Amphetamines Level Urine [facility] ([facility]) cocaine metabolite urine positive negative Above high andrea l Cocaine Metabolite Urine [facility] ([facility]) cannabinoids urine positive negative Above high normal Cannabinoi ds Urine [facility] ([facility]) benzodiazepines urine negative negative Benzodiazepine s Urine [facility] ([facility]) barbiturates urine negative negative Barbiturates Urin e [facility] ([facility]) phencyclidine urine negative negative Phencyclidine Ur ine [facility] ([facility]) methadone urine positive negative Above high normal Methadone Uri ne [facility] ([facility]) opiates urine positive negative Above high normal Opiates Urine A [facility] ([facility]) ID Date Data Source [id number] 06/01/2020 01:01:00 PM EST [facility] ([facility]) Name Value Range Interpretation Code Description Data Kassy rce(s) Supporting Document(s) HCG, serum qualitative negative negative HCG, Serum Qu alitative [facility]) ID Date Data Source [id number] 06/01/2020 01:01:00 PM EST [facility] ([facility]) Name Value Range Interpretation Code Description Data Kassy rce(s) Supporting Document(s) thyroid stimulating hormone 4.060 uIU/mL 0.358-3.740 Above high no rmal Thyroid Stimulating Hormone [place] ([facility]) ID Date Data Source [id number] 06/01/2020 01:01:00 PM EST [facility] ([facility]) Name Value Range Interpretation Code Description Data Kassy rce(s) Supporting Document(s) acetaminophen level < 2.0 10.0-30.0 Below low normal Acetaminop hen Level [facility]) ID Date Data Source [id number] 06/01/2020 01:01:00 PM EST [facility] ([facility]) Name Value Range Interpretation Code Description Data Kassy rce(s) Supporting Document(s) salicylate level < 1.7 5.0-30.0 Below low normal Salicylate Le jose [facility] ([facility]) ID Date Data Source [id number] 06/01/2020 01:01:00 PM EST [facility] ([facility]) Name Value Range Interpretation Code Description Data Kassy rce(s) Supporting Document(s) ethyl alcohol (ethanol) < 0.003 0.000-0.010 Ethyl Alcoh ol (Ethanol) [facility] ([facility]) ID Date Data Source [id number] 06/01/2020 01:01:00 PM EST [facility]) Name Value Range Interpretation Code Description Data Kassy rce(s) Supporting Document(s) glucose, fasting 129 mg/dL 70-100 Above high normal Glucose, Fas ting [place] ([facility]) blood urea nitrogen 12 mg/dL 7-18 Blood Urea Nitro gen [place] ([facility]) creatinine for GFR 0.83 mg/dL 0.55-1.30 Creatinine for GF R [facility] ([facility]) sodium level 136 mEq/L 136-145 Sodium Level [facility] ([facility]) glomerular filtration rate > 60.0 >60 Glomerula r Filtration Rate [facility] ([facility]) potassium serum 3.6 mEq/L 3.5-5.1 Potassium Serum AT[facility] NA ([facility]) chloride level 103 mEq/L 98-107 Chloride Level [facility] ([facility]) carbon dioxide level 23 mEq/L 21-32 Carbon Dioxide Level [facility] ([facility]) anion gap 10 mEq/L 8-16 Anion Gap [facility] ([facility]) calcium level 8.8 mg/dL 8.5-10.1 Calcium Level [facility] ( [facility]) ID Date Data Source [id number] 06/01/2020 01:01:00 PM EST [facility] ([facility]) Name Value Range Interpretation Code Description Data Kassy rce(s) Supporting Document(s) AST/SGOT 61 U/L 7-37 Above high normal AST/SGOT [facility] ([facility]) ALT/SGPT 89 U/L 12-78 Above high normal ALT/SGPT [facility] ([facility]) alkaline phosphatase 80 U/L 45-117 Alkaline Phosph atase [facility] ([facility]) bilirubin,total 0.3 mg/dL 0.2-1.0 Bilirubin,total [facility] ([facility]) total protein 8.4 gm/dL 6.4-8.2 Above high normal Total Protein A [facility] ([facility]) bilirubin,direct 0.1 mg/dL 0.0-0.2 Bilirubin,direct AT [facility] ([facility]) albumin/globulin ratio 1.2-2.2 Below low normal Albumin /globulin Ratio [facility] ([facility]) albumin 4.2 gm/dL 3.2-5.2 Albumin [facility] ([facility]) ID Date Data Source [id number] 06/01/2020 01:01:00 PM EST [facility] ([facility]) Name Value Range Interpretation Code Description Data Kassy rce(s) Supporting Document(s) white blood count 5.6 10 4.0-10.0 White Blood Count [facility] ([facility]) red blood count 4.07 10 4.00-5.40 Red Blood Count [facility] NA ([facility]) hemoglobin 12.4 g/dL 12.0-15.5 Hemoglobin [facility] ([facility]) hematocrit 37.8 % 36.0-47.0 Hematocrit [facility] ([facility]) mean corpuscular hemoglobin 30.5 pg 27.0-33.0 Mean Cor puscular Hemoglobin [facility] ([facility]) mean corpuscular HGB conc 32.8 g/dL 32.0-36.5 Mean Corpu scular HGB Conc [facility] ([facility]) mean corpuscular volume 92.9 fL 80.0-96.0 Mean Corpusc ular Volume [facility] ([facility]) neutrophils % 39.6 % 36.0-66.0 Neutrophils % [facility] ( [facility]) red cell distribution width 12.8 % 11.5-14.5 Red Cell Distribution Width [place] ([facility]) platelet count, automated 205 10 150-450 Platelet C ount, Automated [facility] ([facility]) mono % 8.0 % 0.0-5.0 Above high normal [place] % [facility] ([facility]) lymph % 48.6 % 24.0-44.0 Above high normal Lymph % [facility] ([facility]) baso % 0.9 % 0.0-1.0 Baso % [facility] ([facility]) eos % 2.7 % 0.0-3.0 Eos % [facility] ([facility]) immature granulocyte % 0.2 % 0-3.0 Immature Gran ulocyte % SUSI ([facility]) nucleated red blood cell % 0.0 % 0-0 Nucleated Red Blood Cell % SUSI ([facility]) neutrophils # 2.2 10 1.5-8.5 Neutrophils # SUSI ( [facility]) lymph # 2.7 10 1.5-5.0 Lymph # SUSI ([facility]) mono # 0.5 10 0.0-0.8 [place] # SUSI ([facility]) eos # 0.2 10 0.0-0.5 Eos # SUSI ([facility]) baso # 0.1 10 0.0-0.2 Baso # SUSI ([facility]) ID Date Data Source [id number] 05/07/2020 09:44:00 AM EDT [facility] Name Value Range Interpretation Code Description Data Kassy rce(s) Supporting Document(s) Free T4 (Free Thyroxine) 0.76-1.46 Normal (applies to non -numeric results) [facility] ID Date Data Source [id number] 05/07/2020 09:44:00 AM EDT [facility] Name Value Range Interpretation Code Description Data Kassy rce(s) Supporting Document(s) Thyroid Stimulate Hormone TSH 0.358-3.740 Above high andrea l [facility] ID Date Data Source [id number] 04/30/2020 01:37:00 PM EDT [facility] Name: CELY SIMS [facility] [place] Rec #: [id number] 14 : 1985 Age/Sex: 34F Date of Service: 04/30/20 DISPOSITION SUMMARY Discharge Summary [facility] Name:Cely Sims Emergency Department Age:34 yrs Sex:Female :1985 Arrival:04/30/2020 13:37 Departure Date04/30/2020 Departure Time16:35 Private MD:Rehab, Provider Outcome: Discharge Location: Home/Self Care Condition: Good Chief Complaint: Abdominal Pain Diagnosis: Abdominal Pain, Unspecified, Constipation, unspecified Prescriptions: Cephalexin 500 mg Oral Capsule - take 1 capsule by ORAL route every 12 hours for 5 days; 10 capsule, magnesium citrate Oral Solution - take 1 bottle by ORAL route one time; 1 bottle Follow up: Rehab, Provider Custom Notes: <span>Please follow-up with</span><span> your primary care provider concerning today's visit to the emergency department.</span><span> Images today <span>suggest</span><span> moderate to severe constipation</span><span>.</span><span> I have given prescription</span><span> magnesium citrate</span><span>, please take as prescribed</span><span>.</span><span> Additionally, I have provided</span><span> you a fleets enema</span><span> for you to take</span><span> and use at home</span><span>/rehab.</span><span> Lastly,</span><span> <span>urinalysis</span><span> suggestive of</span><span> urinary tract infection in the setting of your <span>urinary symptoms.</span><span> I will prescribe</span><span> an antibiotic for you to take</span><span> twice daily for the next 5 days.</span><span> Your current medication</span><span> predispose you to</span><span> constipation<span>.</span><span> I recommend attempting the bowel prep</span><span> regiment first</span><span>. But</ span><span>, if you do not</span><span> get full</span><span> relief</span><span> you can</span><span> take an additional dose of MiraLAX</span><span> for a couple days until you get</span><span> watery stools</span><span> then titrate back</span><span> until you have a toothpaste consistency stool</span><span> and remain at that dose.</span><span> Please</span><span> make efforts to maintain well- hydrated during this process.</span><span> Return to the emergency department should you develop any acute worsening of your symptoms, intractable pain, and intractable nausea</span><span> with vomiting<span>,</span><span> chest pain,</span><span> shortness of breath. </span></span></span></span></span></span> Attending Physician: Stephen Woods MD Private MD: Rehab, Provider Mid Level Provider: Eder Willard PA Followup Physician: Rehab, Provider Orders: CRP - Wide Range, Cbc With Auto Differential, Comprehensive Metabolic Prof., Lipase, UA., POC Urine HCG for ED, Ct Abdomen & Pelvis with Con, Collect Urine - Clean Catch, NS 0.9%, Urinalysis Auto w/Microscopy, Urine Culture, Emergency Room EKG Order - Use EKG Work-Up /Quick Select, Cardiology EKG Interpretation - Choose Reason for Test, Ondansetron (PF), Iv Saline Lock, NPO, POC - Collect UHCG, Fleets Enema: To Go Discharge Instruction: Discharge Summary Sheet, Constipation, Adult, Aiia-xj-Meuf, Medication Reconciliation Name Value Range Interpretation Code Description Data Kassy rce(s) Supporting Document(s) ID Date Data Source [id number] 04/30/2020 01:37:00 PM EDT [facility] Name: CELY SIMS [facility] [place] Rec #: [id number] 14 : 1985 Age/Sex: 34F Date of Service: 04/30/20 PHYSICIAN CHART Physician Documentation [facility] Name: Cely Sims Age: 34 yrs Sex: Female : 1985 Arrival Date: 04/30/2020 Time: 13:37 Bed 8 Private MD: Rehab, Provider ED Physician Stephen Woods Disposition: 04/30 15:21 Attestation: I was present, saw, evaluated and participated aaq in the care with the Advanced Practice Provider. I agree with HPI as documented. My personal exam reveals findings consistent with those documented. HPI: 14:35 This 34 yrs old Female presents to ER via Walk-In zrw1 with complaints of Abdominal Pain. 14:35 This patient is a 34-year-old female with history of mental [facility] health disorders including schizophrenia, depression, anxiety, bipolar that is currently in substance abuse rehab that presents to the emergency department with concerns of constipation. Patient reports that she is chronically constipated due to her Suboxone use and side effects of her mental health medications. However, she presents today because she has had worsened abdominal distention which has developed over the last couple days. She has had distention in the past secondary to her constipation but not to this degree. She is currently takes Colace and MiraLAX with mild effect. She states she has had 2 bowel movements in the last 5 days. The bowel movements have been a normal size and well- formed with no evidence of blood. She admits that she has been mildly nauseous the last couple weeks as well. She does have moderate abdominal pain which is primarily in the left upper quadrant and suprapubic region. Pain is approximately 5 out of 10. She has had urinary urgency and frequency but no dysuria. No episodes of vomiting. She denies any fevers, headaches, chest pain, shortness of breath.. [employer]: 13:57 LMP N/A - Irregular menses tp1 Historical: - Allergies: No known drug Allergies; - Home Meds: 1. Zoloft 25 mg Oral tab 1 tab once daily 2. gabapentin 400 mg oral cap 1 cap four times a day 3. Seroquel 100 mg Oral tab 1 tab 3 times per day 200 mg at bed time 4. BuSpar 15 mg Oral tab 1 tab three times a day 5. Haldol 2 mg Oral tab 2 tabs every 4 hours 6. Suboxone 8-2 mg sublingual subl 1 tab twice a day 7. Topamax 150 mg Oral tab 1 cap 2 times per day 8. Remeron 30 mg Oral tab 1 tab once daily 9. nicotine gum two pieces every hour - PMHx: Schizophrenia; Depressive disorder; PTSD; Anxiety; Bipolar disorder; - PSHx: Hernia repair; section; - Med Reconciliation:: Green Alert: The patient's med list is complete to the best of the nurse's/provider's knowledge. Medications reviewed, completed by nurse verbally from patient/family. - Immunization history: Flu vaccine is not up to date. - Advance directive: There is no existing advanced directive. Information offered. - Family History:: mother is healthy. - Social History: Smoking status (Tobacco): Patient states they are a former tobacco smoker, quit smoking two weeks ago ago. No barriers to communication noted, The patient speaks fluent Arabic. ROS: 14:40 Constitutional: Negative for fever, chills, and weight zrw1 loss, ENT: Negative for injury, pain, and discharge, Cardiovascular: Negative for chest pain, palpitations, and edema, Respiratory: Negative for shortness of breath, cough, wheezing, and pleuritic chest pain. MS/Extremity: Negative for injury and deformity, Skin: Negative for injury, rash, and discoloration. Abdomen/GI: See HPI. : See HPI. Exam: 14:41 Constitutional: This is a well developed, well nourished zrw1 patient who is awake, alert, and in no acute distress. Head/Face: Normocephalic, atraumatic. ENT: Nares patent. No nasal discharge, no septal abnormalities noted. External auditory canals are clear. Oropharynx with no redness, swelling, or masses, exudates, or evidence of obstruction, uvula midline. Mucous membranes moist. Chest/axilla: Normal chest wall appearance and motion. Nontender with no deformity. No lesions are appreciated. Cardiovascular: Regular rate and rhythm with a normal S1 and S2. No gallops, murmurs, or rubs. No pulse deficits. Respiratory: Lungs have equal breath sounds bilaterally, clear to auscultation and percussion. No rales, rhonchi or wheezes noted. No increased work of breathing, no retractions or nasal flaring. 14:41 Back: No spinal tenderness. No costovertebral tenderness. Full range of motion. Skin: Warm, dry with normal turgor. Normal color with no rashes, no lesions, and no evidence of cellulitis. MS/ Extremity: Pulses equal, no cyanosis. Neurovascular intact. Full, normal range of motion. 14:41 Abdomen/GI: Inspection: distension that is mild, distension in the right upper quadrant, left upper quadrant, right lower quadrant and left lower quadrant, Bowel sounds: normal, active, all quadrants, Palpation: soft, mild abdomin al tenderness, in the suprapubic area and left upper quadrant, rebound tenderness, is not appreciated, tenderness to percussion, is not appreciated. Vital Signs: 13:57 BP 98 / 68; Pulse 79; Resp 16; Temp 97.0; Pulse Ox 100% ; tp1 Weight 56.7 kg; Height 5 ft. 1 in. (154.94 cm); Pain 8/10; 16:25 BP 122 / 80; Pulse 85; Resp 18; Temp 97.1; Pulse Ox 100% ; dk2 13:57 Body Mass Index 23.62 (56.70 kg, 154.94 cm) tp1 MDM: 14:08 Patient medically screened. zrw1 16:03 Case presented to: Dr. Stephen Woods. Data reviewed: vital zrw1 signs, nurses notes, lab test result(s), EKG, radiologic studies. ED course: This patient is a 34-year-old female with multiple mental health diagnoses, currently in rehab for substance abuse on Suboxone, and chronically constipated presented to the emergency department with concerns of worsening constipation the last couple weeks. Patient states that she is only had 2 bowel movements last 5 days. She is also concerned about abdominal distention which has occurred previously with her constipation. Physical exam demonstrates hemodynamically stable patient that is nontoxic in appearance. Abdomen exam demonstrates mild distention with mild tenderness to the suprapubic area and left upper quadrant. No rebound tenderness or peritoneal signs. Patient refused rectal exam due to some previous trauma in her life. Lab work is largely reassuring. EKG normal with normal QT interval. CT abdomen pelvis demonstrated "severe amount of stool, spleen at upper limits of normal in size." Urinalysis demonstrates 2+ leukocyte esterase. Discussed all results with the patient and the indication to be discharged with outpatient management at this time. Will prescribe bowel prep and give a fleets enema to take home. She does have someone she is comfortable with assisting in the Fleet enema administration. Will treat for UTI as well. Patient was given clear indications for which she should return to the emergency department. Patient voices understanding and is agreeable to the discharge.. 16:13 ED course: EKG demonstrates sinus rhythm at a rate of 83 zrw1 beats per minute. ND 168ms. QRS 94ms. QT 426. Normal axis. . 04/30 14:27 Order name: CRP - Wide Range; Complete Time: 15: zrw04/30 15:54 Interpretation: CRP-wr < 2.90. 04/30 14:27 Order name: Cbc With Auto Differential; Complete Time: 15:zrw1 04/30 15:53 Interpretation: WBC 6.8; HGB 11.6; HCT 34.1; PLT 240; Neut% zrw1 (AUTO) 42; Neut# (AUTO) 2.9. 04/30 14:27 Order name: Comprehensive Metabolic Prof.; Complete Time: 15:04/30 15:53 Interpretation: NA 142; K 4.3; CL 113; CO2 25.0; GAP 4.0; zrw1 BUN 17; CREAT 0.78; Glom Filtration 85; GLU 85; CA 8.5; Corrected CA 8.9; T Bili 0.1; SGOT(AST) 37; SGPT(ALT) 37; ALK PHOS 81; TP 7.4; ALB 3.5. 04/30 14:27 Order name: Lipase; Complete Time: 15:22 zrw1 04/30 15:54 Interpretation: LIP 85. 04/30 14:27 Order name: UA.; Complete Time: 15:19 zrw04/30 15:02 Interpretation: Ur Color Yellow; Ur Clarity Clear; Ur Leuk zrw1 Est 2+ Mod; Ur Nitrite Negative. 04/30 14:39 Order name: POC Urine HCG for ED; Complete Time: 15:19 dk2 04/30 15:54 Interpretation: POC ED Ur HCG NEGATIVE. 04/30 14:27 Order name: Ct Abdomen & Pelvis with Con w1 04/30 14:27 Order name: Collect Urine - Clean Catch; Complete Time: zrw1 14:33 04/30 14:58 Order name: Urinalysis Auto w/Microscopy [facility] 04/30 14:58 Order name: Urine Culture [facility] 04/30 15:02 Order name: Emergency Room EKG Order - Use EKG Work-Up zrw1 /Quick Select; Complete Time: 15:28 04/30 15:02 Order name: Cardiology EKG Interpretation - Choose Reason w for Test 04/30 14:27 Order name: Iv Saline Lock; Complete Time: 14:44 zrw1 04/30 14:27 Order name: NPO; Complete Time: 14:34 zrw1 04/30 14:27 Order name: POC - Collect UHCG; Complete Time: 14:39 zrw1 04/30 16:17 Order name: Fleets Enema: To Go; Complete Time: 16:18 zrw Dispensed Medications: 15:04 Drug: NS 0.9% 1000 ml [sodium chloride 0.9 % intravenous dk2 solution] Route: IV; Rate: 999 mL/hr; Site: left forearm; 16:23 Follow up: IV Status: Completed infusion; IV Intake: 1000ml dk2 15:38 Drug: Ondansetron (PF) 4 mg [ondansetron HCl (PF) 4 mg/2 mL dk2 injection solution (2 mL)] Route: IVP; Infused Over: 2 mins; Site: left forearm; 16:23 Follow up: Response: Nausea is decreased dk2 Disposition Summary: 04/30/20 16:18 Discharge Ordered Location: Home/Self Care zrw1 Condition: Good zrw1 Diagnosis - Abdominal Pain, Unspecified zrw1 - Constipation, unspecified zrw1 Followup: zrw1 - With: Rehab, Provider - When: 2 - 3 days - Reason: Recheck today's complaints, Continuance of care, If symptoms persist Discharge Instructions: - Discharge Summary Sheet zrw1 - Constipation, Adult, Eczt-yr-Mggj zrw1 Forms: - Medication Reconciliation zrw1 Prescriptions: - Cephalexin 500 mg Oral Capsule - take 1 capsule by ORAL route every 12 hours for 5 zrw1 days; 10 capsule; Refills: 0, Product Selection Permitted - magnesium citrate Oral Solution - take 1 bottle by ORAL route one time; 1 bottle; zrw1 Refills: 0, Product Selection Permitted Signatures: Dispatcher [employer] EDMS Ori Carlson RN RN tp1 Maira Nunez RN RN dk2 Yoli Boucher NA NA jmg Quinn, Adam, MD MD aaq Willis, Zachary, PA PA zrw1 Corrections: (The following items were deleted from the chart) 16:09 16:03 ED course: This patient is a 34-year-old female with zrw1 multiple mental health diagnoses, currently in rehab for substance abuse on Suboxone, and chronically constipated presented to the emergency department with concerns of worsening constipation the last couple weeks. Patient states that she is only had 2 bowel movements last 5 days. She is also concerned about abdominal distention which has occurred previously with her constipation. Physical exam demonstrates hemodynamically stable patient that is nontoxic in appearance. Abdomen exam demonstrates mild distention with mild tenderness to the suprapubic area and left upper quadrant. No rebound tenderness or peritoneal signs. Patient refused rectal exam due to some previous trauma in her life. Lab work is largely reassuring. EKG normal with normal QT interval. CT abdomen pelvis demonstrated "severe amount of stool, spleen at upper limits of normal in size." Discussed all results with the patient and the indication to be discharged with outpatient management at this time. Will prescribe bowel prep and give a fleets enema to take home.. zrw1 16:17 16:03 ED course: This patient is a 34-year-old female with zrw1 multiple mental health diagnoses, currently in rehab for substance abuse on Suboxone, and chronically constipated presented to the emergency department with concerns of worsening constipation the last couple weeks. Patient states that she is only had 2 bowel movements last 5 days. She is also concerned about abdominal distention which has occurred previously with her constipation. Physical exam demonstrates hemodynamically stable patient that is nontoxic in appearance. Abdomen exam demonstrates mild distention with mild tenderness to the suprapubic area and left upper quadrant. No rebound tenderness or peritoneal signs. Patient refused rectal exam due to some previous trauma in her life. Lab work is largely reassuring. EKG normal with normal QT interval. CT abdomen pelvis demonstrated "severe amount of stool, spleen at upper limits of normal in size." Urinalysis demonstrates 2+ leukocyte esterase. Discussed all results with the patient and the indication to be discharged with outpatient management at this time. Will prescribe bowel prep and give a fleets enema to take home. Will treat for UTI as well. Patient was given clear indications for which she should return to the emergency department. Patient voices understanding and is agreeable to the discharge.. zrw1 Name Value Range Interpretation Code Description Data Kassy rce(s) Supporting Document(s) ID Date Data Source [id number] 04/30/2020 01:37:00 PM EDT [facility] Name: CELY SIMS [facility] [place] Rec #: [id number] 14 : 1985 Age/Sex: 34F Date of Service: 04/30/20 NURSE CHART Nurse's Notes [facility] Name: Cely Sims Age: 34 yrs Sex: Female : 1985 Arrival Date: 04/30/2020 Time: 13:37 Bed 8 Private MD: Rehab, Provider Diagnosis: Abdominal Pain, Unspecified;Constipation, unspecified Presentation: 04/30 13:38 Acuity: Urgent - 3 awr 13:56 Transition of care: patient was not received from another [facility] setting of care. Presenting complaint: Patient states - She has not had a BM in the last two days despite using suppositories.. Pt is currently at our rehab facility. Have you travelled in the last 30 days? Yes, Where have you travelled? From [place]. . Have you had contact with an individual with a confirmed diagnosis of Ebola or COVID-19? No. 13:56 Method Of Arrival: Walk-In tp1 Triage Assessment: 13:59 SEPSIS SCREEN: A Confirmed or Suspected Infection is tp1 Unknown, their temperature is not <96.8 or >100.9, their heart rate is not >90, their RR is not >20, it is unknown if their WBC is <4 or >12, the patient does not have new or unexplained altered mental status. SIRS or Sepsis criteria is not present. Suicide Screening: Have you had thoughts of harming yourself or others? No. The patient appears to have some mild discomfort, The patient is behaving appropriately according to age, cooperative. The patient complains of pain in right upper quadrant, left upper quadrant, right lower quadrant and left lower quadrant. GI: Abdomen is distended, The patient reports constipation. [employer]: 13:57 LMP N/A - Irregular menses tp1 Historical: - Allergies: No known drug Allergies; - Home Meds: 1. Zoloft 25 mg Oral tab 1 tab once daily 2. gabapentin 400 mg oral cap 1 cap four times a day 3. Seroquel 100 mg Oral tab 1 tab 3 times per day 200 mg at bed time 4. BuSpar 15 mg Oral tab 1 tab three times a day 5. Haldol 2 mg Oral tab 2 tabs every 4 hours 6. Suboxone 8-2 mg sublingual subl 1 tab twice a day 7. Topamax 150 mg Oral tab 1 cap 2 times per day 8. Remeron 30 mg Oral tab 1 tab once daily 9. nicotine gum two pieces every hour - PMHx: Schizophrenia; Depressive disorder; PTSD; Anxiety; Bipolar disorder; - PSHx: Hernia repair; section; - Med Reconciliation:: Green Alert: The patient's med list is complete to the best of the nurse's/provider's knowledge. Medications reviewed, completed by nurse verbally from patient/family. - Immunization history: Flu vaccine is not up to date. - Advance directive: There is no existing advanced directive. Information offered. - Family History:: mother is healthy. - Social History: Smoking status (Tobacco): Patient states they are a former tobacco smoker, quit smoking two weeks ago ago. No barriers to communication noted, The patient speaks fluent Arabic. Screenin:06 AUDIT 1. How often do you have a drink containing alcohol? tp1 Never (0 points). Drug Abuse Screening Test: 1. Have you used drugs other than those required for medical reasons? Yes (1 point) Patient Response: Pt is in Rehab currently, last used two weeks ago. Abuse screen: Denies threats or abuse. Denies injuries from another. Nutritional screening: No deficits noted. Patient has no identifiable fall risk (Thompson Scale: 0 points). Assessment: 14:44 GI: Bowel sounds present in right upper quadrant, left dk2 upper quadrant, right lower quadrant and left lower quadrant The patient reports bloating. Vital Signs: 13:57 BP 98 / 68; Pulse 79; Resp 16; Temp 97.0; Pulse Ox 100% ; tp1 Weight 56.7 kg; Height 5 ft. 1 in. (154.94 cm); Pain 8/10; 16:25 BP 122 / 80; Pulse 85; Resp 18; Temp 97.1; Pulse Ox 100% ; dk2 13:57 Body Mass Index 23.62 (56.70 kg, 154.94 cm) tp1 ED Course: 13:38 Patient arrived in ED. rld 13:38 Triage completed. awr 13:55 Rehab, Provider is Private Physician. tp1 13:57 Arm band placed on right wrist. Patient has correct armband tp1 on for positive identification. 14:07 Maira Nunez RN is Primary Nurse. tp1 14:08 Eder Willard PA is PHCP. zrw1 14:08 Stephen Woods MD is Attending Physician. zrw1 14:36 Urine collected. Clean catch specimen. dk2 14:39 A urine test was performed by Jesse Hernandez RN the dk2 test was Negative, Control Line was present. 14:45 Inserted peripheral IV: 20 gauge in left hand. dk2 14:56 Labs drawn by lab staff. dk2 14:58 Discontinued IV intact, bleeding controlled, pressure awr dressing applied, No redness/swelling at site. 14:58 IV insertion was unsuccessful x 1attempt(s). awr 15:04 Inserted saline lock: 20 gauge in left forearm. dk2 15:09 Radiology: The patient went to get his/her CT at 15:09. dk2 15:23 Radiology: Patient returned from CT at 15:23. dk2 15:23 An EKG was obtained and reviewed by Stephen Woods MD. [facility] 15:28 Cardiology EKG Interpretation - Choose Reason for Test Sent.[facility] 16:18 Rehab, Provider is Referral Physician. zrw1 16:34 Discontinued lock pressure dressing applied, No sj redness/swelling at site. Administered Medications: 15:04 Drug: NS 0.9% 1000 ml [sodium chloride 0.9 % intravenous dk2 solution] Route: IV; Rate: 999 mL/hr; Site: left forearm; 16:23 Follow up: IV Status: Completed infusion; IV Intake: 1000ml dk2 15:38 Drug: Ondansetron (PF) 4 mg [ondansetron HCl (PF) 4 mg/2 mL dk2 injection solution (2 mL)] Route: IVP; Infused Over: 2 mins; Site: left forearm; 16:23 Follow up: Response: Nausea is decreased dk2 Intake: 16:23 IV: 1000ml; Total: 1000ml. dk2 Outcome: 16:18 Discharge ordered by . zrw1 16:35 Patient verbalized understanding of disposition sj instructions. Patient has no functional deficits. 16:35 Patient discharged rehab 16:35 Condition: stable 16:35 Discharge instructions given to patient, Patient was instructed on discharge instructions, follow up and referral plans, Prescriptions given X 2. 16:35 Vitals are Complete in accordance with Emergency Department Policy. 16:35 Patient left the ED. 05/01 08:54 24 hour call back attempted, invalid phone number Signatures: Surekha Carvajal RN RN Ori Orantes RN RN [email or web address] Maira Nunez RN RN dk2 Jesse Hernandez, RN RN Yoli Rosado NA NA jmg Willis, Zachary, PA PA zrw1 Antonina Ivey Name Value Range Interpretation Code Description Data Kassy rce(s) Supporting Document(s) ID Date Data Source [id number] 05/01/2020 09:27:00 AM EDT [facility] Name: CELY SIMS : 1985 A ge/Sex: 34F Ordering Provider: LEA White Med Rec #: [id number] Reg Status:DEP ER Room #: Date of Service: 04/30/20 Report Number: [id number] cc: PCP None; LEA White Send Report To: Reason for exam: ABDOMINAL PAIN SINUS RHYTHM POSSIBLE RIGHT VENTRICULAR CONDUCTION DELAY BORDERLINE ECG Compared to 04/18/2020 there is no significant change Physician [employer] Processor: Serafin Daugherty M.D. ECG HEART RATE: 83 /min ECG RR INTERVAL: 716 ms ECG P DURATION: 119 ms ECG QRS DURATION: 94 ms ECG ND INTERVAL: 168 ms ECG QT INTERVAL: 426 ms ECG QTC INTERVAL: 466 ms Q-T dispersion: ms ECG P AXIS: 42 deg ECG QRS AXIS: 21 deg ECG T AXIS: 33 deg REPORT SIGNATURE ON FILE 05/01/20927 Reported By: Serafin Daugherty MD, [facility] <<Signature on File>> Exam Date/Time: 04/30/20 1523 Order #: [id number] Dictation Date/Time: 05/01/20926 Transcribed Date/Time: 05/01/20926 Adaptive Physical Education Specialist: LETICIA Name Value Range Interpretation Code Description Data Kassy rce(s) Supporting Document(s) ID Date Data Source [id number] 05/02/2020 10:45:00 AM EDT [facility] Name Value Range Interpretation Code Description Data Kassy rce(s) Supporting Document(s) Urine Culture Normal (applies to non-numeric re sults) [facility] ID Date Data Source [id number] 04/30/2020 03:21:00 PM EDT [facility] Name Value Range Interpretation Code Description Data Kassy rce(s) Supporting Document(s) Sodium 142 mmol/L 137-145 Normal (applies to non-numeric resul ts) [facility] Potassium 3.5-5.1 Normal (applies to non-numeric resul ts) [facility] Chloride 113 mmol/L 98-112 Above high normal [facility] Carbon Dioxide CO2 22.0-33.0 Normal (applies to non-numer ic results) [facility] Anion Gap 4.0-11.0 Normal (applies to non-numeric resul ts) [facility] BUN 17 mg/dL 7-17 Normal (applies to non-numeric resul ts) [facility] Creatinine 0.70-1.20 Normal (applies to non-numeric resul ts) [facility] GFR 85 mL/min >60 Normal (applies to non-numeric resul ts) [facility] Result based on MDRD formula. Glucose Level 85 mg/dL 74-99 Normal (applies to non-numeric re sults) [facility] The reference range is only applicable w hen fasting. Calcium-Uncorrected 8.4-10.2 Normal (applies to non-nume claudia results) [facility] Corrected Calcium 8.4-10.2 Normal (applies to non-numeri c results) [facility] Bilirubin,Total 0.2-1.3 Below low normal [facility] SGOT(AST) 37 U/L 14-[address] [facility] SGPT(ALT) 37 U/L 9-52 Normal (applies to non-numeric resul ts) [facility] Alkaline Phosphatase 81 U/L 38-126 Normal (applies to non-num clementine results) [facility] can increase Alkaline Phosp le vels up to 2 times the normal adult value. Normal values for children and adolescents are 2 to 3 times the normal adult value. Total Protein 6.3-8.2 Normal (applies to non-numeric re sults) [facility] Albumin 3.5-5.0 Normal (applies to non-numeric resul ts) [facility] ID Date Data Source [id number] 04/30/2020 03:21:00 PM EDT [facility] Name Value Range Interpretation Code Description Data Kassy rce(s) Supporting Document(s) C-Reactive Protein,Wide Range <3.00 Normal (applies t o non-numeric results) [facility] ID Date Data Source [id number] 04/30/2020 03:21:00 PM EDT [facility] Name Value Range Interpretation Code Description Data Kassy rce(s) Supporting Document(s) Lipase 85 U/L 73-393 Normal (applies to non-numeric resul ts) [facility] ID Date Data Source [id number] 04/30/2020 03:07:00 PM EDT [facility] Name Value Range Interpretation Code Description Data Kassy rce(s) Supporting Document(s) White Blood Count 4.8-10.8 Normal (applies to non-numeri c results) [facility] Red Blood Count 3.68-5.22 Normal (applies to non-numeric results) [facility] Hemoglobin 11.2-15.7 Normal (applies to non-numeric resul ts) [facility] Hematocrit 34.1-44.9 Normal (applies to non-numeric resul ts) [facility] Mean Corpuscular Volume 81-99 Normal (applies to non- numeric results) [facility] Mean Corpuscular Hemoglobin 27.0-33.0 Normal (appli es to non-numeric results) [facility] Mean Corpuscular HGB Conc 32.0-36.0 Normal (applies to no n-numeric results) [facility] Red Cell Distribution Width 11.5-14.5 Normal (appli es to non-numeric results) [facility] Platelet Count 240 X10 3/uL 130-450 Normal (applies to non-numeric results) [facility] Mean Platelet Volume 9.5-12.7 Normal (applies to non-num clementine results) [facility] Imm Grans% (AUTO) 0 % 0-2 Normal (applies to non-numeri c results) [facility] Neutrophils % (AUTO) 42 % 40-75 Normal (applies to non-num clementine results) [facility] Lymphocytes % (AUTO) 46 % 21-46 Normal (applies to non-num clementine results) [facility] Monocytes % (AUTO) 7 % 5-12 Normal (applies to non-numer ic results) [facility] Eosinophils % (AUTO) 3 % 1-5 Normal (applies to non-num clementine results) [facility] Basophils % (AUTO) 1 % 0-1 Normal (applies to non-numer ic results) [facility] Imm Grans# (AUTO) 0.0-0.5 Normal (applies to non-numeri c results) [facility] Neutrophils # (AUTO) 1.5-8.1 Normal (applies to non-num clementine results) [facility] Lymphocytes # (AUTO) 1.0-3.1 Above high normal [facility] Monocytes # (AUTO) 0.2-1.3 Normal (applies to non-numer ic results) [facility] Eosinophils# (AUTO) 0.0-0.5 Normal (applies to non-nume claudia results) [facility] Basophils # (AUTO) 0.0-0.1 Normal (applies to non-numer ic results) [facility] ID Date Data Source [id number] 04/30/2020 03:15:00 PM EDT [facility] Control Line Present? YPerformed by: Jewels Valles HCG Screen Result: NEGATIVE Name Value Range Interpretation Code Description Data Kassy rce(s) Supporting Document(s) POC ED Urine HCG NEGATIVE Normal (applies to non-numeric results) [facility] ID Date Data Source [id number] 04/30/2020 03:10:00 PM EDT [facility] Name Value Range Interpretation Code Description Data Kassy rce(s) Supporting Document(s) Color,Urine Yellow Normal (applies to non-numeric resu lts) [facility] Clarity,Urine Clear Normal (applies to non-numeric re sults) [facility] Specific [place],Urine 1.001-1.030 Normal (applies to non- numeric results) [facility] PH,Urine 4.6-8.0 Normal (applies to non-numeric resul ts) [facility] Protein,Urine Negative Normal (applies to non-numeric re sults) [facility] Glucose,Urine (UA) Negative Normal (applies to non-numer ic results) [facility] Ketones,Urine Negative Normal (applies to non-numeric re sults) [facility] Blood,Urine Negative Normal (applies to non-numeric resu lts) [facility] Bilirubin,Urine Negative Normal (applies to non-numeric results) [facility] Urobilinogen,Urine Norm 0.2-1 Normal (applies to non-numer ic results) [facility] Leukocyte Esterase,Urine Negative [facility] Nitrite,Urine Negative Normal (applies to non-numeric re sults) [facility] ID Date Data Source [id number] 04/30/2020 03:10:00 PM EDT [facility] Name Value Range Interpretation Code Description Data Kassy rce(s) Supporting Document(s) WBC,URINE 0-10 [facility] RBC,Urine 0-2 Normal (applies to non-numeric resul ts) [facility] Hyaline Casts,Ur None Seen Normal (applies to non-numeric results) [facility] Bacteria,Urine None Seen [facility] Epithelial Cell,Ur None-Few Bhagat [facility] ID Date Data Source [id number] 05/01/2020 06:14:00 AM EDT [facility] Name: CELY SIMS : 1985 A ge/Sex: 34F Ordering Provider: LEA White Med Rec #: [id number] Reg Status: [facility] Room #: Date of Service: 04/30/20 Report Number: [id number] cc:PCP None Send Report To: [id number] CT/CT Abdomen & Pelvis w Con Reason for exam: ABD PAIN WITH DISTENTION FINDINGS: There is a marked amount of stool present in the large bowel. The liver and pancreas are normal in size and density. No masses are seen. The spleen is at the upper limits of normal in size measuring 12.1 cm. The kidneys demonstrate no evidence for masses or obstruction. No lymphadenopathy is seen. No ascites is noted. Bony structures are intact. IMPRESSION: Severe amount of stool in the large bowel. Spleen is at the upper limits of normal in size. While performing the above CT exam, the following dose reduction techniques wereused: *Automated exposure control *Adjustment of the mA and/or kV according to patient size *Use of iterative reconstruction technique CT Dose in mSv: 3.672 Contrast Agent in ml: Isovue 300 85 Method of Administration: Existing IV REPORT SIGNATURE ON FILE Reported By: Neal Gale MD <Electronically signed by Neal Gale MD> 05/02/20 1050 Dictation Date/Time: 04/30/20 1541 Transcribed Date/Time: 05/01/20 06 Adaptive Physical Education Specialist: CHEL Name Value Range Interpretation Code Description Data Kassy rce(s) Supporting Document(s) ID Date Data Source [id number] 04/23/2020 09:55:00 AM EDT [facility] Name Value Range Interpretation Code Description Data Kassy rce(s) Supporting Document(s) Free T4 (Free Thyroxine) 0.76-1.46 Normal (applies to non -numeric results) [facility] ID Date Data Source [id number] 04/23/2020 09:55:00 AM EDT [facility] Name Value Range Interpretation Code Description Data Kassy rce(s) Supporting Document(s) Thyroid Stimulate Hormone TSH 0.358-3.740 Above high andrea l [facility] ID Date Data Source [id number] 04/18/2020 03:52:00 PM EDT [facility] Name: CELY SIMS : 1985 A ge/Sex: 34F Ordering Provider: Stephanie TATE Med Rec #: [id number] Reg Status:ADM IN Room #: 156-2 Date of Service: 04/18/20 Report Number: [id number] cc: Stephanie TATE; Annelise Gray MD Send Report To: Reason for exam: chest pain with cocaine SINUS RHYTHM POSSIBLE LEFT ATRIAL ENLARGEMENT POSSIBLE RIGHT VENTRICULAR CONDUCTION DELAY NONSPECIFIC T-WAVE ABNORMALITY Physician [employer] Processor: Dr. Ben Tillman M.D. ECG HEART RATE: 78 /min ECG RR INTERVAL: 765 ms ECG P DURATION: 115 ms ECG QRS DURATION: 90 ms ECG ND INTERVAL: 143 ms ECG QT INTERVAL: 426 ms ECG QTC INTERVAL: 457 ms Q-T dispersion: ms ECG P AXIS: 71 deg ECG QRS AXIS: 72 deg ECG T AXIS: 32 deg REPORT SIGNATURE ON FILE 04/18/201551 Reported By: Ben Tillman MD <<Signature on File>> Exam Date/Time: 04/18/20 0759 Order #: [id number] Dictation Date/Time: 04/18/201551 Transcribed Date/Time: 04/18/201551 Adaptive Physical Education Specialist: LETICIA Name Value Range Interpretation Code Description Data Kassy rce(s) Supporting Document(s) ID Date Data Source [id number] 04/17/2020 11:39:00 AM EDT [facility] Value Range Interpretation Code Description Data Kassy rce(s) Supporting Document(s) Hep Bs Ag Result T-Test Nonreactive Normal (applies to non -numeric results) [facility] ID Date Data Source [id number] 04/17/2020 11:39:00 AM EDT [facility] Value Range Interpretation Code Description Data Kassy rce(s) Supporting Document(s) Syphilis Serology Nonreactive Normal (applies to non-numer ic results) [facility] ID Date Data Source [id number] 04/17/2020 11:39:00 AM EDT [facility] Value Range Interpretation Code Description Data Kassy rce(s) Supporting Document(s) HAVM Nonreactive Normal (applies to non-numeric resu lts) [facility] ID Date Data Source [id number] 04/17/2020 11:39:00 AM EDT [facility] Name Value Range Interpretation Code Description Data Kassy rce(s) Supporting Document(s) Vitamin D,Total (25OH) 30.0-100.0 Below low normal [facility] Reference Range: <10 ng/mL: Deficien t 10-30 ng/mL: Insufficient 30-100 ng/mL: Sufficient >100 ng/mL: Toxicity possible ID Date Data Source [id number] 04/17/2020 10:44:00 AM EDT [facility] Name Value Range Interpretation Code Description Data Kassy rce(s) Supporting Document(s) C-Reactive Protein,Wide Range <3.00 Normal (applies t o non-numeric results) [facility] ID Date Data Source [id number] 04/17/2020 10:44:00 AM [facility] Name Value Range Interpretation Code Description Data Kassy rce(s) Supporting Document(s) Magnesium 1.80-2.40 Normal (applies to non-numeric resul ts) [facility] ID Date Data Source [id number] 04/17/2020 10:44:00 AM [facility] Name Value Range Interpretation Code Description Data Kassy rce(s) Supporting Document(s) Sodium 137 mmol/L 137-145 Normal (applies to non-numeric resul ts) [facility] Potassium 3.5-5.1 Normal (applies to non-numeric resul ts) [facility] Chloride 110 mmol/L 98-112 Normal (applies to non-numeric resul ts) [facility] Carbon Dioxide CO2 22.0-33.0 Below low normal [facility] Anion Gap 4.0-11.0 Normal (applies to non-numeric resul ts) [facility] BUN 16 mg/dL 7-17 Normal (applies to non-numeric resul ts) [facility] Creatinine 0.70-1.20 Normal (applies to non-numeric resul ts) [facility] GFR 88 mL/min >60 Normal (applies to non-numeric resul ts) [facility] Result based on MDRD formula. Glucose Level 94 mg/dL 74-99 Normal (applies to non-numeric re sults) [facility] The reference range is only applicable w hen fasting. Calcium-Uncorrected 8.4-10.2 Normal (applies to non-nume claudia results) [facility] Corrected Calcium 8.4-10.2 Normal (applies to non-numeri c results) [facility] Bilirubin,Total 0.2-1.3 Normal (applies to non-numeric results) [facility] Bilirubin,Direct 0.0-0.3 Normal (applies to non-numeric results) [facility] SGOT(AST) 32 U/L 14-36 Normal (applies to non-numeric resul ts) [facility] SGPT(ALT) 35 U/L 9-52 Normal (applies to non-numeric resul ts) [facility] Alkaline Phosphatase 70 U/L 38-126 Normal (applies to non-num clementine results) [facility] can increase Alkaline Phosp le vels up to 2 times the normal adult value. Normal values for children and adolescents are 2 to 3 times the normal adult value. CPK 172 U/L 26-192 Normal (applies to non-numeric resul ts) [facility] Total Protein 6.3-8.2 Normal (applies to non-numeric re sults) [facility] Albumin 3.5-5.0 Normal (applies to non-numeric resul ts) [facility] Thyroid Stimulate Hormone TSH 0.358-3.740 Above high andrea l [facility] ID Date Data Source [id number] 04/17/2020 10:07:00 AM EDT [facility] Name Value Range Interpretation Code Description Data Kassy rce(s) Supporting Document(s) White Blood Count 4.8-10.8 Normal (applies to non-numeri c results) [facility] Red Blood Count 3.68-5.22 Normal (applies to non-numeric results) [facility] Hemoglobin 11.2-15.7 Normal (applies to non-numeric resul ts) [facility] Hematocrit 34.1-44.[address] [facility] Mean Corpuscular Volume 81-99 Normal (applies to non- numeric results) [facility] Mean Corpuscular Hemoglobin 27.0-33.0 Normal (appli es to non-numeric results) [facility] Mean Corpuscular HGB Conc 32.0-36.0 Normal (applies to no n-numeric results) [facility] Red Cell Distribution Width 11.5-14.5 Normal (appli es to non-numeric results) [facility] Platelet Count 197 X10 3/uL 130-450 Normal (applies to non-numeric results) [facility] Mean Platelet Volume 9.5-12.7 Normal (applies to non-num clementine results) [facility] Imm Grans% (AUTO) 0 % 0-2 Normal (applies to non-numeri c results) [facility] Neutrophils % (AUTO) 46 % 40-75 Normal (applies to non-num clementine results) [facility] Lymphocytes % (AUTO) 42 % 21-46 Normal (applies to non-num clementine results) [facility] Monocytes % (AUTO) 9 % 5-12 Normal (applies to non-numer ic results) [facility] Eosinophils % (AUTO) 3 % 1-5 Normal (applies to non-num clementine results) [facility] Basophils % (AUTO) 1 % 0-1 Normal (applies to non-numer ic results) [facility] Imm Grans# (AUTO) 0.0-0.5 Normal (applies to non-numeri c results) [facility] Neutrophils # (AUTO) 1.5-8.1 Normal (applies to non-num clementine results) [facility] Lymphocytes # (AUTO) 1.0-3.1 Normal (applies to non-num clementine results) [facility] Monocytes # (AUTO) 0.2-1.3 Normal (applies to non-numer ic results) [facility] Eosinophils# (AUTO) 0.0-0.5 Normal (applies to non-nume claudia results) [facility] Basophils # (AUTO) 0.0-0.1 Normal (applies to non-numer ic results) [facility] ID Date Data Source [id number] 04/16/2020 11:13:00 AM EDT [facility] Name Value Range Interpretation Code Description Data Kassy rce(s) Supporting Document(s) Respiratory specimen severe acute respir atory syndrome coronavirus 2 (SARS-CoV-2) RNA [facility] This lab was ordered by [facility] lola and reported by [facility]. ID Date Data Source [id number] 04/16/2020 03:13:00 PM EDT [facility] Name Value Range Interpretation Code Description Data Kassy rce(s) Supporting Document(s) Opiate Screen,Urine Negative Normal (applies to non-nume claudia results) [facility] Amphetamine Screen,Urine Negative Normal (applies to non -numeric results) [facility] Benzodiazepines Scrn,Ur result Negative N ormal (applies to non-numeric results) [facility] Cocaine Screen,Urine Negative Normal (applies to non-num clementine results) [facility] Methadone Screen,Urine Negative Normal (applies to non-n umeric results) [facility] Cannabinoid Screen, Ur Negative Normal (applies to non-n umeric results) [facility] Therapeutic Drug Ranges for Emergency an d Rehabilitation Threshold Levels (ng/mL) Cocaine 300 Opiates 300 Cannabinoids 50 Barbiturates 200 Benzodiazepine 200 Methadone 300 Amphetamines 1000 All positive find ings are presumptive and unconfirmed. Confirmation of positive results are performed only at request of provider. Unconfirmed results must not be used for non-medical purposes (i.e. pre-employment and legal purposes) ID Date Data Source [id number] 04/16/2020 02:00:00 PM EDT [facility] Name Value Range Interpretation Code Description Data Kassy rce(s) Supporting Document(s) Color,Urine Yellow Normal (applies to non-numeric resu lts) [facility] Clarity,Urine Clear Normal (applies to non-numeric re sults) [facility] Specific [place],Urine 1.001-1.030 Normal (applies to non- numeric results) [facility] PH,Urine 5.0-8.0 Normal (applies to non-numeric resul ts) [facility] Protein,Urine Negative Normal (applies to non-numeric re sults) [facility] Glucose,Urine (UA) Negative Normal (applies to non-numer ic results) [facility] Ketones,Urine Negative Normal (applies to non-numeric re sults) [facility] Blood,Urine Negative Normal (applies to non-numeric resu lts) [facility] Bilirubin,Urine Negative Normal (applies to non-numeric results) [facility] Urobilinogen,Urine Norm 0.2-1 Normal (applies to non-numer ic results) [facility] Leukocyte Esterase,Urine Negative Normal (applies to non -numeric results) [facility] Nitrite,Urine Negative Normal (applies to non-numeric re sults) [facility] ID Date Data Source [id number] 04/16/2020 02:00:00 PM EDT [facility] Name Value Range Interpretation Code Description Data Kassy rce(s) Supporting Document(s) Urine HCG Negative Normal (applies to non-numeric resul ts) [facility] ID Date Data Source [id number] 04/16/2020 11:13:00 AM EDT [facility] First test? UNKNOWNEmployed in [facility] re? UNKNOWNSymptomatic per CDC? UNKNOWNHospitalized? UNKNOWNICU? UNKNOWNResident in congregated care? ex correction, [facility] UNKNOWN? UNKNOWN Name Value Range Interpretation Code Description Data Kassy rce(s) Supporting Document(s) SARS-CoV-2 RNA Negative Normal (applies to non-numeric r esults) [facility] Negative results should be treated as pr esumptive and, if inconsistent with clinical signs and symptoms or necessary for patient management, should be tested with different authorized or cleared molecular tests. Negative results do not preclude SARS-CoV-2 infection and should not be used as the sole basis for patient management decisions. Negative results should be considered in the context of a patients recent exposures, history and the presence of clinical signs and symptoms consistent with COVID-19. This test has not been FDA cleared or approved; this test has been authorized by FDA under an Emergency Use Authorization for use by laboratories certified under the Clinical Laboratory Improvement Amendments of 1988 (CLIA), 42 U.S.C. 263a, to perform moderate complexity/high complexity tests and at the Point of Care (POC), i.e., in patient care settings operating under a CLIA Certificate of Waiver, Certificate of Compliance, or Certificate of Accreditation. Factsheets for healthcare providers: https://www.fda.gov/media/941564/download Factsheets for patients: https://www.fda.gov/media/441519/download THIS IS A STATE REPORTABLE COMMUNICABLE DISEASE. Manual entry verified by Jessika Villareal 04/16/20 1112 Procedure Social History Code Duration Value Status Description Data Source(s ) Smoking 04/14/2021 12:00:00 AM EDT Smoker, current status unkn own completed Smoker, current status unknown [facility] ([facility]) 09/15/2020 12:00:00 AM EST Heavy cigarette smoker (20- 39 cigs/day) completed Heavy cigarette smoker (20-39 cigs/day) [facility] ([facility]) Vital Signs ID Date Data Source UNK Name Value Range Interpretation Code Description Data Source(s) Diastolic blood pressure 73 mm[Hg] 73 mm[Hg] SUSI ([facility]) Systolic blood pressure 104 mm[Hg] 104 mm[Hg] A THENA ([facility]) Body weight 1920 [oz_av] 1920 [oz_av] SUSI ([facility]) Body weight 59.239 kg 59.239 kg [facility] ([facility]) Body height 154.94 cm 154.94 cm [facility] ([facility]) Systolic blood pressure 120 mm[Hg] 120 mm[Hg] N [facility]Gen ([facility]) Diastolic blood pressure 77 mm[Hg] 77 mm[Hg] [facility] ([facility]) Body mass index (BMI) [Ratio] 24.68 kg/m2 24.68 kg/m2 [facility] ([facility]) Body height 154.94 cm 154.94 cm [facility] ([facility]) Body weight 58.967 kg 58.967 kg [facility] ([facility]) Body mass index (BMI) [Ratio] 24.56 kg/m2 24.56 kg/m2 [facility] ([facility]) ID Date Data Source [id number] 02/23/2021 10:02:00 AM EDT [facility] Name Value Range Interpretation Code Description Data Source(s) Weight (Calculated Kilograms) 55.34 55.34 [facility] Height (Calculated Centimeters) 154.94 154. 94 [facility] [facility] Body Mass Index (BMI) 23.0 23.0 [facility] ID Date Data Source [id number] 03/09/2021 03:19:00 PM EDT [facility] Name Value Range Interpretation Code Description Data Source(s) Weight Measurement Method 1 1 [facility] Weight (Calculated Kilograms) 55.34 55.34 [facility] Weight 2144 2144 [facility] Temperature Source 7 7 [facility] Temperature 96.4 96.4 [facility] Respiratory Effort 1 1 [facility] Respiratory Rate 16 16 [facility] Pulse Assessment Method 4 4 [facility] Pulse Rate 117 117 [facility] Height (Calculated Centimeters) 154.94 154. 94 [facility] Height 61 61 [facility] Blood Pressure 110/70 110/70 [facility] Body Mass Index (BMI) 23.0 23.0 [facility] Weight Measurement Method 1 1 [facility] Weight (Calculated Kilograms) 55.34 55.34 [facility] Weight 2144 2144 [facility] Temperature Source 7 7 [facility] Temperature 96.4 96.4 [facility] Respiratory Effort 1 1 [facility] Respiratory Rate 16 16 [facility] Pulse Assessment Method 4 4 [facility] Pulse Rate 117 117 [facility] Height (Calculated Centimeters) 154.94 154. 94 [facility] Height 61 61 [facility] Blood Pressure 110/70 110/70 [facility] Body Mass Index (BMI) 23.0 23.0 [facility] Weight Measurement Method 1 1 [facility] Weight (Calculated Kilograms) 55.34 55.34 [facility] Weight 2144 2144 [facility] Temperature Source 7 7 [facility] Temperature 96.4 96.4 [facility] Respiratory Effort 1 1 [facility] Respiratory Rate 16 16 [facility] Pulse Assessment Method 4 4 [facility] Pulse Rate 117 117 [facility] Height (Calculated Centimeters) 154.94 154. 94 [facility] Height 61 61 [facility] Blood Pressure 110/70 110/70 [facility] Body Mass Index (BMI) 23.0 23.0 [facility] Weight Measurement Method 1 1 [facility] Weight (Calculated Kilograms) 55.34 55.34 [facility] Weight 1983 1983 [facility] Temperature Source 7 7 [facility] Temperature 97.3 97.3 [facility] Respiratory Effort 1 1 [facility] Respiratory Rate 14 14 [facility] Pulse Assessment Method 4 4 [facility] Pulse Rate 69 69 [facility] Height (Calculated Centimeters) 154.94 154. 94 [facility] Height 61 61 [facility] Blood Pressure 112/79 112/79 [facility] Body Mass Index (BMI) 23.0 23.0 [facility] Weight Measurement Method 1 1 [facility] Weight (Calculated Kilograms) 55.34 55.34 [facility] Weight 1983 1983 [facility] Temperature Source 7 7 [facility] Temperature 97.1 97.1 [facility] Respiratory Effort 1 1 [facility] Respiratory Rate 16 16 [facility] Pulse Assessment Method 4 4 [facility] Pulse Rate 74 74 [facility] Height (Calculated Centimeters) 154.94 154. 94 [facility] Height 61 61 [facility] Blood Pressure 110/74 110/74 [facility] Body Mass Index (BMI) 23.0 23.0 [facility] Weight (Calculated Kilograms) 56.25 56.25 [facility] Height (Calculated Centimeters) 154.94 154. 94 [facility] Body Mass Index (BMI) 23.4 23.4 [facility] ID Date Data Source [id number] 05/07/2020 09:12:00 AM EDT [facility] Name Value Range Interpretation Code Description Data Source(s) Weight (Calculated Kilograms) 56.25 56.25 [facility] Height (Calculated Centimeters) 154.94 154. 94 [facility] Body Mass Index (BMI) 23.4 23.4 [facility] Weight (Calculated Kilograms) 56.25 56.25 [facility] Height (Calculated Centimeters) 154.94 154. 94 [facility] Body Mass Index (BMI) 23.4 23.4 [facility] Weight (Calculated Kilograms) 56.25 56.25 [facility] Height (Calculated Centimeters) 154.94 154. 94 [facility] Body Mass Index (BMI) 23.4 23.4 [facility] Weight (Calculated Kilograms) 56.25 56.25 [facility] Height (Calculated Centimeters) 154.94 154. 94 [facility] Body Mass Index (BMI) 23.4 23.4 [facility] ID Date Data Source [id number] 05/19/2020 05:30:00 AM EDT [facility] Name Value Range Interpretation Code Description Data Source(s) Weight Measurement Method 1 1 [facility] Weight (Calculated Kilograms) 56.25 56.25 [facility] Weight 2063 2063 [facility] Temperature Source 7 7 [facility] Temperature 97.5 97.5 [facility] Respiratory Effort 1 1 [facility] Respiratory Rate 15 15 [facility] Pulse Assessment Method 4 4 [facility] Pulse Rate 83 83 [facility] Height (Calculated Centimeters) 154.94 154. 94 [facility] Height 61 61 [facility] Blood Pressure 109/75 109/75 [facility] Body Mass Index (BMI) 23.4 23.4 [facility] Weight Measurement Method 1 1 [facility] Weight (Calculated Kilograms) 56.25 56.25 [facility] Weight 2063 2063 [facility] Temperature Source 7 7 [facility] Temperature 97.5 97.5 [facility] Respiratory Effort 1 1 [facility] Respiratory Rate 15 15 [facility] Pulse Assessment Method 4 4 [facility] Pulse Rate 83 83 [facility] Height (Calculated Centimeters) 154.94 154. 94 [facility] Height 61 61 [facility] Blood Pressure 109/75 109/75 [facility] Body Mass Index (BMI) 23.4 23.4 [facility] Weight Measurement Method 1 1 [facility] Weight (Calculated Kilograms) 56.25 56.25 [facility] Weight 2063 2063 [facility] Temperature Source 7 7 [facility] Temperature 97.5 97.5 [facility] Respiratory Effort 1 1 [facility] Respiratory Rate 15 15 [facility] Pulse Assessment Method 4 4 [facility] Pulse Rate 83 83 [facility] Height (Calculated Centimeters) 154.94 154. 94 [facility] Height 61 61 [facility] Blood Pressure 109/75 109/75 [facility] Body Mass Index (BMI) 23.4 23.4 [facility] Weight Measurement Method 1 1 [facility] Weight (Calculated Kilograms) 56.25 56.25 [facility] Weight 2063 2063 [facility] Temperature Source 7 7 [facility] Temperature 97.5 97.5 [facility] Respiratory Effort 1 1 [facility] Respiratory Rate 15 15 [facility] Pulse Assessment Method 4 4 [facility] Pulse Rate 83 83 [facility] Height (Calculated Centimeters) 154.94 154. 94 [facility] Height 61 61 [facility] Blood Pressure 109/75 109/75 [facility] Body Mass Index (BMI) 23.4 23.4 [facility] Weight Measurement Method 1 1 [facility] Weight (Calculated Kilograms) 56.25 56.25 [facility] Weight 1983 1983 [facility] Temperature Source 7 7 [facility] Temperature 96.9 96.9 [facility] Respiratory Effort 1 1 [facility] Respiratory Rate 15 15 [facility] Pulse Assessment Method 4 4 [facility] Pulse Rate 90 90 [facility] Height (Calculated Centimeters) 154.94 154. 94 [facility] Height 61 61 [facility] Blood Pressure 104/67 104/67 [facility] Body Mass Index (BMI) 23.4 23.4 [facility] Weight Measurement Method 1 1 [facility] Weight (Calculated Kilograms) 56.25 56.25 [facility] Weight 1983 1983 [facility] Temperature Source 7 7 [facility] Temperature 97.8 97.8 [facility] Respiratory Effort 1 1 [facility] Respiratory Rate 17 17 [facility] Pulse Assessment Method 4 4 [facility] Pulse Rate 93 93 [facility] Height (Calculated Centimeters) 154.94 154. 94 [facility] Height 61 61 [facility] Blood Pressure 110/87 110/87 [facility] Body Mass Index (BMI) 23.4 23.4 [facility] Weight (Calculated Kilograms) 72.12 72.12 [facility] Height (Calculated Centimeters) 154.94 154. 94 [facility] Body Mass Index (BMI) 30.0 30.0 [facility] Patient Treatment Plan of Care Planned Activity Planned Date Details Description Data Source (s) Sertraline 50 MG Oral Tablet [Zoloft] 01/18/2021 12:00:00 AM [facility] Risperidone 3 MG Oral Tablet [Risperdal] 01/18/2021 12:00:00 AM [facility] Prazosin 2 MG Oral Capsule [Minipress] 01/18/2021 12:00:00 AM [facility] olanzapine 15 MG Oral Tablet 01/18/2021 12:00:00 AM [facility] Multi-Vit/Mineral (Multivitamin Tablet) 1 TAB TAB 01/18/2021 12: 00:00 AM [facility] Mirtazapine 15 MG Oral Tablet 01/18/2021 12:00:00 AM [facility] gabapentin 600 MG Oral Tablet 01/18/2021 12:00:00 AM [facility] doxycycline hyclate 100 MG Oral Tablet 01/18/2021 12:00:00 AM [facility] Docusate Sodium 100 MG Oral Capsule [Colace] 01/18/2021 12:00:00 AM [facility] Buprenorphine 8 MG / Naloxone 2 MG Oral Strip [Suboxon e] 01/18/2021 12:00:00 AM [facility] Metronidazole 500 MG Oral Tablet 09/22/2020 12:00:00 AM [facility] ([facility]) 168 HR Ethinyl Estradiol 0.96914 MG/HR / norelgestromin 0.15753 MG/HR Transdermal Patch [Xulane] 03/03/2020 12:00:00 AM EDT [facility] ([facility]) Trazodone Hydrochloride 100 MG Oral Tablet [facility] ([facility]) topiramate 50 MG Oral Tablet [facility] ([facility]) topiramate 25 MG Oral Tablet [facility] ([facility]) Sulfamethoxazole 800 MG / Trimethoprim 160 MG Oral Tablet [facility] ([facility]) Sertraline 50 MG Oral Tablet [facility] ([facility]) Sertraline 25 MG Oral Tablet [facility] ([facility]) Sertraline 100 MG Oral Tablet [facility] ([facility]) Risperidone 3 MG Oral Tablet [facility] ([facility]) Risperidone 2 MG Oral Tablet [facility] ([facility]) Prazosin 2 MG Oral Capsule A [facility] ([facility]) Prazosin 1 MG Oral Capsule A [facility] ([facility]) 24 HR paliperidone 6 MG Extended Release Oral Tablet [facility] ([facility]) 24 HR paliperidone 3 MG Extended Release Oral Tablet [facility] ([facility]) 24 HR Oxybutynin chloride 5 MG Extended Release Oral Tablet [facility] ([facility]) 24 HR Oxybutynin chloride 10 MG Extended Release Oral Tablet [facility] ([facility]) olanzapine 5 MG Oral Tablet [facility] ([facility]) olanzapine 5 MG Disintegrating Oral Tablet [place] ([facility]) benztropine mesylate 1 MG Oral Tablet [place] ([facility]) atomoxetine 40 MG Oral Capsule [place] ([facility]) atomoxetine 10 MG Oral Capsule [place] ([facility]) aripiprazole 2 MG Oral Tablet [place] ([facility]) Amitriptyline Hydrochloride 25 MG Oral Tablet [facility] ([facility]) Sertraline 50 MG Oral Tablet [Zoloft] [facility] Risperidone 3 MG Oral Tablet [Risperdal] [facility] Prazosin 2 MG Oral Capsule [Minipress] [facility] olanzapine [address] [facility] Mirtazapine [address] [facility] gabapentin [address] [facility] Docusate Sodium 100 MG Oral Capsule [Colace] [facility] Buprenorphine 8 MG / Naloxone 2 MG Oral Strip [Suboxone] [facility] topiramate 50 MG Oral Tablet [Topamax] [facility] ([facility]) olanzapine 10 MG Oral Tablet [facility] ([facility]) Naproxen 500 MG Oral Tablet [facility] ([facility]) Mirtazapine 15 MG Oral Tablet [facility] ([facility]) Metronidazole 500 MG Oral Tablet [facility] ([facility]) Loratadine 10 MG Oral Tablet [facility] ([facility]) Levothyroxine Sodium 0.05 MG Oral Tablet [facility] ([facility]) Hydroxyzine Hydrochloride 50 MG Oral Tablet [facility] ([facility]) Hydroxyzine Hydrochloride 25 MG Oral Tablet [facility] ([facility]) Haloperidol 2 MG Oral Tablet [facility] ([facility]) Haloperidol 10 MG Oral Tablet [facility] ([facility]) gabapentin 400 MG Oral Capsule [facility] ([facility]) gabapentin 300 MG Oral Capsule [facility] ([facility]) 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 MG Oral Capsule [facility] ([facility]) Fluoxetine 10 MG Oral Capsule [facility] ([facility]) doxycycline hyclate 100 MG Oral Tablet [facility] ([facility]) Docusate Sodium 100 MG Oral Capsule [facility] ([facility]) Divalproex Sodium 500 MG Delayed Release Oral Tablet [facility] ([facility]) Divalproex Sodium 250 MG Delayed Release Oral Tablet [facility] ([facility]) Cephalexin 500 MG Oral Capsule [facility] ([facility]) buspirone hydrochloride 7.5 MG Oral Tablet [facility] ([facility])
[2021-05-19 20:23] LABS: HEMATOCRIT 37.9 % (36.0-47.0); HEMOGLOBIN 12.9 g/dl (12.0-15.5); MEAN CORPUSCULAR HEMOGLOBIN 30.8 pg (27.0-33.0); MEAN CORPUSCULAR VOLUME 90.5 fl (80.0-96.0); PLATELET COUNT, AUTOMATED 259 10^3/uL (150-450); RED BLOOD COUNT 4.19 10^6/uL (4.00-5.40)
[2021-05-19 20:53] LABS: HCG, SERUM QUALITATIVE NEGATIVE (NEGATIVE)
[2021-05-19 20:58] LABS: ACETAMINOPHEN LEVEL < 2.0 UG/ML (10.0-30.0); ALBUMIN 3.6 GM/DL (3.2-5.2); ALT/SGPT 52 U/L (12-78); BILIRUBIN,DIRECT 0.1 MG/DL (0.0-0.2); BILIRUBIN,TOTAL 0.3 MG/DL (0.2-1.0); BLOOD UREA NITROGEN 8 MG/DL (7-18); CALCIUM LEVEL 8.9 MG/DL (8.5-10.1); CARBON DIOXIDE LEVEL 23 MEQ/L (21-32); CHLORIDE LEVEL 110 MEQ/L (98-107); CREATININE FOR GFR 0.66 MG/DL (0.55-1.30); ETHYL ALCOHOL (ETHANOL) < 0.003 % (0.000-0.010); GLOMERULAR FILTRATION RATE > 60.0 (>60); GLUCOSE, FASTING 109 MG/DL (70-100); POTASSIUM SERUM 3.8 MEQ/L (3.5-5.1); SALICYLATE LEVEL 3.1 MG/DL (5.0-30.0); SODIUM LEVEL 139 MEQ/L (136-145); TOTAL PROTEIN 8.1 GM/DL (6.4-8.2)
--- OUTSIDE RECORDS SUMMARY | 2021-05-19 21:26 | CCD ---
Author Author [facility] Organization [facility] Address Unknown Phone Unavailable Care Team Providers Care Software Quality Specialist Name Role Phone Vicki Hanna MD Unavailable [...] Unavailable Unavailable Vicki Hanna MD Unavailable Unavailable ABI SANCHEZ MD Unavailable [...] Unavailable ABI SANCHEZ MD Unavailable Unavailable Green PUNCH MACHINE HAND PUNCH MACHINE HAND, Gina Unavailable Unavailable Green PUNCH MACHINE HAND PUNCH MACHINE HAND, Gina Unavailable Unavailable Green PUNCH MACHINE HAND PUNCH MACHINE HAND, Gina Unavailable Unavailable Green PUNCH MACHINE HAND PUNCH MACHINE HAND, Gina Unavailable Unavailable Green PUNCH MACHINE HAND PUNCH MACHINE HAND, Gina Unavailable Unavailable Michael Castañeda MD Unavailable [...] Audi, Neli Figueroa MD Unavailable Unavailable Audi, A Carolina BARON Unavailable Unavailable Audi, A Carolina BARON Unavailable Unavailable Audi, Neli Figueroa MD Unavailable Unavailable Audi, Neli Figueroa MD Unavailable Unavailable Audi, Neli Figueroa MD Unavailable Unavailable Audi, Neli Figueroa MD Unavailable Unavailable Audi, Neli Figueroa MD Unavailable Unavailable Audi, Neli Figueroa MD Unavailable Unavailable Audi, A Carolina BARON Unavailable Unavailable Audi, A Carolina BARON Unavailable Unavailable Audi, A Carolina BARON Unavailable Unavailable Audi, A Carolina BARON Unavailable Unavailable Audi, A Carolina BARON Unavailable Unavailable Audi, A Carolina BARON Unavailable Unavailable Audi, A Carolina BARON Unavailable Unavailable Audi, A Carolina BARON Unavailable Unavailable Audi, A Carolina BARON Unavailable Unavailable Audi, A Carolina BARON Unavailable Unavailable Audi, A Carolina BARON Unavailable Unavailable Audi, A Carolina BARON Unavailable Unavailable Audi, Neli Figueroa MD Unavailable Unavailable Audi, Neli Figueroa MD Unavailable Unavailable Audi, Neli Figueroa MD Unavailable Unavailable Audi, A Carolina BARON Unavailable Unavailable Audi, A Carolina BARON Unavailable Unavailable Audi, A Carolina BARON Unavailable Unavailable Audi, A Carolina BARON Unavailable Unavailable Audi, Neli Figueroa MD Unavailable [...] ASAR, ANNELISE BARON Unavailable Unavailable ASAR, ANNELISE MD Unavailable Unavailable Chowdhury, DO Harmandeep, DO Unavailable Unavailable Willard, R Eder PA Unavailable Unavailable Willard, R Eder PA Unavailable Unavailable Dwello PA PA, Latanya Unavailable Unavailable Dwello PA PA, Latanya Unavailable Unavailable Dwello PA PA, Latanya Unavailable Unavailable Dwello PA PA, Latanya Unavailable Unavailable Dwello PA PA, Latanya Unavailable Unavailable Dwello PA PA, Latanya Unavailable Unavailable Dwello PA PA, Latanya Unavailable Unavailable Michael Castañead MD Unavailable Unavailable Micheal Gray MD Unavailable [...] Unavailable Vicki Hanna MD Unavailable Unavailable Vicki aHnna MD Unavailable Unavailable Vicki Hanna MD Unavailable [...] D Julito MD Unavailable Unavailable Hanna, D Juilto MD Unavailable Unavailable Hanna, D Julito MD [...] by Article 27-F of the [facility] Public Health law. If you continue you may have access to information: Regarding HIV / AIDS; Provided by facilities licensed or operated by the [facility] Office of Mental Health; or Provided by the [facility] Office for People With Developmental Disabilities. If such information is present, then the following [facility] mandated warning applies: This information has been [...] law may result in a fine or senior care sentence or both. A general authorization for the release of medical or other information is NOT sufficient authorization for further disc losure. Allergies and Adverse Reactions Type Description Substance Reaction Status Data Source(s ) Propensity to adverse reactions Propensity to adverse reacti ons No Known Drug Allergies [facility] . Drug allergy Drug allergy No Known Allergies [facility] Family History Family Member Name Family Member Gender Family Member Status Date o f Status Description Data Source(s) Unknown Male Diagnosis 01/22/2014 12:00:00 AM EDT [facility] ([facility]) Encounters Encounter Providers Location Date Indications Data Source(s ) Julito Hanna MD: [address] [place] [id number], Ph. Attender: Julito Hanna MD [facility] Medical 05/13/2021 12:00:00 AM EDT [facility] ([facility]) Attender: Carolina Huntley MD [facility] 0 04/14/2021 01:46:00 PM EDT - 04/14/2021 01:46:00 PM EDT [facility] ([facility]) Preadmit Attender: Dorie Huntley MD [facility] 0 02/23/2021 12:25:00 AM EDT - 02/23/2021 12:25:00 AM EDT [facility] Discharge cancelled. Disregard status an d discharged date. Inpatient Attender: Annelise Savage nder: ANNELISE GARY MDAdmitter: ANNELISE GRAY MD [facility] 01/27/2021 01:41:00 PM EDT - 02/24/2021 10:00:00 AM EDT PSYCHOACTIVE SUBSTANCE DEPENDENCE [facility] PSYCHOACTIVE SUBSTANCE DEPENDENCE Patient discharged. Inpatient Attender: Trenton Escudero DOAdmitter: Trenton Wing DO SURG-MED 01/14/2021 10:13:00 AM EDT - 01/18/2021 12:43:00 PM EDT [facility]. Patient discharged. Inpatient Attender: Trenton Escudero DOAdmitter: Trenton Wing DO SURG-MED 01/14/2021 10:13:00 AM EDT - 01/18/2021 12:43:00 PM EDT [facility]. V Attender: Trenton Escudero DOAdmitter: Trenton Wing DO SURG-MED 01/13/2021 05:23:[address] [facility] Patient admitted. Outpatient Attender: ABI SANCHEZ MD SURG-LAB 01/13/2021 04:01: [address] [facility] Attender: Carolina Jimenez 0 11/03/2020 11:58:00 AM EDT - 11/03/2020 11:58:00 AM EDT [facility] ([facility]) Attender: Carolina Jimenez 0 10/15/2020 02:33:00 PM EDT - 10/15/2020 02:33:00 PM EDT [facility] ([facility]) Attender: Carolina Hernández 03:02:00 PM EDT - 10/13/2020 03:02:00 PM EDT [facility] ([facility]) Attender: Carolina Hernández 11/2020 01:36:00 PM EST - 10/03/2020 01:36:00 PM EST [facility] ([facility]) Attender: Carolina Jimenez 0 09/26/2020 10:53:00 AM EST - 09/26/2020 10:53:00 AM EST [facility] ([facility]) Attender: Gina France NP PUNCH MACHINE HAND MARELY Hernández 0 09/25/2020 09:16:00 AM EST - 09/25/2020 09:16:00 AM EST Contact with and (suspected) exposure to viral hepatitisUnspecified viral hepatitis C without hepatic coma [facility] ([facility]) Contact with and (suspected) exposure to viral hepatitis Unspecified viral hepatitis C without he patic coma Attender: Gina France NP PUNCH MACHINE HAND [facility]ELY [place] 0 09/22/2020 01:14:00 PM EST - 09/22/2020 01:14:00 PM EST Trichomonal vulvovaginitis [facility] ([facility]) Trichomonal vulvovaginitis OFFICE VISIT, ESTOutpatient Attender: Gina France PUNCH MACHINE HAND PUNCH MACHINE HAND MARELY Hernández 09/15/2020 02:45:00 PM EST - [...] test, result negative [facility] ([facility]) Other specified noninflammatory disorder s of [...] PM EST [facility] ([facility]) Attender: Latanya Hernández 04/2021 03:58:00 PM EST - 09/09/2020 03:58:00 PM EST [facility] ([facility]) Outpatient Attender: Julito PASTRANA 05/16/2020 04:01:01 PM EDT [facility] Outpatient Attender: Julito PASTRANA 05/16/2020 03:47:00 PM EDT [facility] Attender: Carolina Hernández 04:15:00 PM EDT - 04/30/2020 04:15:00 PM EDT [facility] ([facility]) Emergency Attender: Eder LANDA ttender: Tia Castañeda MDAttender: Tia Castañeda MD [facility] 04/30/2020 01:37:00 PM EDT - 04/30/2020 04:35:00 PM EDT ABDOMINAL PAIN [facility] ABDOMINAL PAIN Patient discharged. Outpatient Attender: Julito PASTRANA 04/23/2020 09:58:01 AM EDT [facility] Inpatient Attender: Annelise Gray MDAtte nder: ANNELISE GRAY MDAdmitter: ANNELISE GRAY MDConsultant: ANNELISE GRAY MDConsultant: Annelise Gray MD [facility] 04/16/2020 10:19:00 AM EDT - 05/14/2020 11:45:00 AM EDT PSYCHOACTIVE SUBSTANCE DEPENDENCE [facility] PSYCHOACTIVE SUBSTANCE DEPENDENCE Patient discharged. Outpatient Attender: [...] DAILY DOSE = 2 FILMS SOLD: 04/30/2021 [facility] buspirone hydrochloride 15 MG Oral Tablet BUSPIRONE HCL 04/29/2021 12:00:00 AM EDT tablet 45 TAKE ONE TABLET BY MOUTH THR EE TIMES A DAY TAKE ONE TABLET BY MOUTH THREE TIMES A DAY SOLD: 04/30/2021 [facility] 2-0.5 mg 04/29/2021 12:00:00 AM EDT film [address] ONE FILM UNDER THE TONGUE EVERY MORNING MAXIMUM DAILY DOSE = [address] ONE FILM UNDER THE TONGUE EVERY MORNING MAXIMUM DAILY DOSE = 1 FILM SOLD: 04/30/2021 [facility] 60 mg 04/29/2021 12:00:00 AM EDT capsule 15 TAKE ONE CAPSULE BY MOUTH EVERY MORNING TAKE ONE CAPSULE BY MOUTH EVERY MORNING SOLD: 04/30/2021 [facility] olanzapine 15 MG Oral Tablet OLANZAPINE 04/29/2021 12:00:00 AM EDT tab let 15 TAKE ONE TABLET BY MOUTH EVERY MORNING TAKE ONE TABLET BY MOUTH EVERY MORNING SOLD: 04/30/2021 [facility] 4 mg 04/15/2021 12:00:00 AM EDT gum 50 TAKE ONE (1) EACH BY MOUTH EVERY THREE HOURS, NEEDED TAKE ONE (1) EACH BY MOUTH EVERY THREE HOURS, NEEDE D SOLD: 04/16/2021 [facility] olanzapine 10 MG Oral Tablet OLANZAPINE 04/15/2021 12:00:00 AM EDT tab let 22 TAKE ONE HALF (0.5) TABLET BY MOUTH EVERY IN THE MORNING AND ONE (1) TABLET AT BEDTIME TAKE ONE HALF (0.5) TABLET BY MOUTH EVER Y IN THE MORNING AND ONE (1) TABLET AT BEDTIME SOLD: 04/16/2021 [facility] buspirone hydrochloride 15 MG Oral Tablet BUSPIRONE HCL 04/15/2021 12:00:00 AM EDT tablet 45 TAKE ONE TABLET BY MOUTH THR EE TIMES A DAY TAKE ONE TABLET BY MOUTH THREE TIMES A DAY SOLD: 04/16/2021 [facility] 600 mg 04/15/2021 12:00:00 AM EDT [...] CAPSULE BY MOUTH AT BEDTIME SOLD: 03/16/2021 [facility] buspirone hydrochloride 15 MG Oral [...] TABLET BY MOUTH AT BEDTIME SOLD: 02/24/2021 [facility] 2 mg 02/24/2021 12:00:00 AM EDT [...] MOUTH EVERY DAY SOLD: 02/24/2021 [facility] olanzapine 5 MG Oral Tablet OLANZAPINE 02/24/2021 [...] 12:00:00 AM EDT [address] [facility] doxycycline hyclate 100 MG Oral Tablet DOXYCYCLINE HYCLATE 0 01/18/2021 12:00:00 AM EDT tablet 20 TAKE ONE TABLET BY MOUTH TWI CE A DAY TAKE ONE TABLET BY MOUTH TWICE A DAY SOLD: 01/19/2021 [facility] 3 mg 01/18/2021 12:00:00 AM EDT tablet 5 TAKE ONE TABLET BY MOUTH AT BEDTIME TAKE ONE TABLET BY MOUTH AT BEDTIME SOLD: 01/19/2021 [facility] Docusate Sodium 100 MG Oral Capsule [Col gopi] Docusate Sodium (Colace) 100 MG CAPSULE Docusate Sodium (Colace) 100 MG CAPSULE 01/18/2021 12:00:00 AM E DT 200 completed Daily as needed [facility] olanzapine 15 MG Oral Tablet Olanzapine 15 MG TABLET Olanzap ine 15 MG TABLET 01/18/2021 12:00:00 AM EDT [address] [facility] 600 mg 01/18/2021 12:00:00 AM EDT tablet 15 TAKE ONE TABLET BY MOUTH THREE TIMES A DAY TAKE ONE TABLET BY MOUTH THREE TIMES A DAY SOLD: 01/19/2021 [facility] 15 mg 01/18/2021 12:00:00 AM EDT tablet 5 TAKE ONE TABLET BY MOUTH AT BEDTIME TAKE ONE TABLET BY MOUTH AT BEDTIME SOLD: 01/19/2021 [facility] Sertraline 50 MG Oral Tablet [Zoloft] Sertraline HCl 5 0 MG TABLET Sertraline HCl 50 MG TABLET 01/18/2021 12:00:00 AM EDT [address] [facility] Buprenorphine 8 MG / Naloxone 2 MG Oral Strip [Suboxone] Buprenorphine HCl/Naloxone HCl (Suboxone 8 MG-2 MG Sl Film) 1 EACH FILM Buprenorphine HCl/Naloxone HCl (Suboxone 8 MG-2 MG Sl Film) 1 EACH FILM 01/18/2021 12:00:00 AM EDT 8 completed Twice Daily [facility] 2 mg 01/18/2021 12:00:00 AM EDT capsule [...] AM EDT [address] [facility] 50 mg 01/18/2021 12:00:00 AM EDT tablet [...] 01/18/2021 12:00:00 AM EDT 1 completed Daily [facility] olanzapine 15 MG Oral Tablet OLANZAPINE 01/18/2021 12:00:00 AM EDT tab let 5 TAKE ONE TABLET BY MOUTH AT BEDTIME TAKE ONE TABLET BY MOUTH AT BEDTIME SOLD: 01/19/2021 [facility] Prazosin 2 MG Oral Capsule [Minipress] Prazosin HCl (M inipress) 2 MG CAPSULE Prazosin HCl (Minipress) 2 MG CAPSULE 01/18/2021 12:00:00 AM EDT [address] [facility] gabapentin 600 MG Oral Tablet Gabapentin 600 MG TABLET Gabap entin 600 MG TABLET 01/18/2021 12:00:00 AM EDT 600 completed [address] Times a Day [facility] Mirtazapine 15 MG Oral Tablet Mirtazapine 15 MG TABLET Christine zapine 15 MG TABLET 01/18/2021 12:00:00 AM EDT [address] [facility] 400 mcg 01/18/2021 12:00:00 AM EDT tablet 5 TAKE ONE TABLET BY MOUTH EVERY DAY TAKE ONE TABLET BY MOUTH EVERY DAY SOLD: 01/19/2021 [facility] 8-2 mg 01/13/2021 12:00:00 AM EDT [...] 1 (#4) [facility] ([facility]) 1 mg 09/22/2020 12:00:00 AM EST tablet [...] DAILY DOSE = 2 FILMS LOT # [id number] PLACE ONE FILM UNDER THE TONGUE TWICE A DAY MAXIMUM DAILY DOSE = 2 FILMS LOT # [id number] SOLD: 07/24/2020 [facility] olanzapine 5 MG [...] MOUTH AT BEDTIME FOR ANTIPSYCHOTIC SOLD: 06/13/2020 [facility] 15 mg 06/10/2020 12:00:00 AM [...] TABLET BY MOUTH AT BEDTIME SOLD: 05/29/2020 [facility] 15 mg 05/28/2020 12:00:00 AM [...] INSTILL 1 SPRAY NASALLY DIRECTED SOLD: 05/16/2020 [facility] buspirone hydrochloride 15 MG Oral [...] TABLET BY MOUTH AT BEDTIME SOLD: 05/14/2020 [facility] 10 mg 05/14/2020 12:00:00 AM EDT [...] 8:00AM, 1:00PM, 5:00PM, AND 9:00PM SOLD: 05/14/2020 [facility] olanzapine 5 MG Oral Tablet OLANZAPINE [...] BY MOUTH TWICE A DAY SOLD: 05/16/2020 [facility] Oxybutynin chloride 5 MG Oral Tablet OXYBUTYNIN CHLORIDE 01/2020 12:00:00 AM EDT tablet 60 TAKE ONE TABLET BY MOUTH TWI CE A DAY TAKE ONE TABLET BY MOUTH TWICE A DAY SOLD: 03/26/2020 [facility] 168 HR Ethinyl Estradiol 0.76745 MG/HR / norelgestromin 0.66249 MG/HR Transdermal Patch [Xulane] XULANE PATCH XULANE PATCH 03/03/2020 12:00:00 AM EDT completed 168 HR ethinyl estradiol 0.03568 MG/HR / norelgestromin 0.50666 MG/HR Transdermal System [Xulane] [facility] ([facility]) 5 mg 02/25/2020 12:00:00 AM EDT tablet extended release 24hr 30 TAKE ONE TABLET BY MOUTH EVERY DAY TAKE ONE TABLET BY MOUTH EVERY DAY SOLD: 05/16/2020 [facility] Hydroxyzine Hydrochloride 25 MG Oral Tab let hydroxyzine HCl 25 mg tablet TAKE ONE TABLET BY MOUTH THREE TIMES A DAY NEEDED hydroxyzine HCl 25 mg tablet TAKE ONE TABLET BY MOUTH THREE TIMES A DAY NEEDED completed hydroxyzine hydrochloride 25 MG Oral Tablet [facility]) Mirtazapine 15 MG Oral Tablet Mirtazapine 15 Mg Tablet Tablet, 15 Mg Oral Mirtazapine 15 Mg Tablet Tablet, 15 Mg Oral [address] [facility] Risperidone 3 MG Oral Tablet risperidone 3 mg tablet TAKE ONE TABLET BY MOUTH AT BEDTIME risperidone 3 mg tablet TAKE ONE TABLET BY MOUTH AT BEDTIME completed risperidone 3 MG Oral Tablet [facility]) Sertraline 50 MG Oral Tablet [Zoloft] Se rtraline Hcl 50 Mg Tablet Tablet, 50 Mg Oral Sertraline Hcl 50 Mg Tablet Tablet, 50 Mg Oral [address] [facility] Cephalexin 500 MG Oral Capsule cephalexi n 500 mg capsule TAKE ONE CAPSULE BY MOUTH THREE TIMES A DAY cephalexin 500 mg capsule TAKE ONE CAPSU LE BY MOUTH THREE TIMES A DAY completed ceph alexin 500 MG Oral Capsule [facility]) Risperidone 3 MG Oral Tablet [Risperdal] Risperidone (Risperdal) 3 Mg Tablet Tablet, 3 Mg Oral Risperidone (Risperdal) 3 Mg Tablet Tablet, 3 Mg Oral 3 completed At Bedtime [facility] buspirone hydrochloride 7.5 MG Oral Tabl et buspirone 7.5 mg tablet TAKE ONE TABLET BY MOUTH THREE TIMES A DAY buspirone 7.5 mg tablet TAKE ONE TABLET BY MOUTH THREE TIMES A DAY completed buspirone hydrochloride 7.5 MG Oral Tablet [facility]) Metronidazole 500 MG Oral Tablet metroni dazole 500 mg tablet 500 MG BY MOUTH AT BEDTIME FOR INFECTION metronidazole 500 mg tablet 500 MG BY MO UTH AT BEDTIME FOR INFECTION completed metronidazo le 500 MG Oral Tablet [facility] Levothyroxine Sodium 0.05 MG Oral Tablet levothyroxine 50 mcg tablet TAKE ONE TABLET BY MOUTH EVERY DAY levothyroxine 50 mcg tablet TAKE ONE TAB LET BY MOUTH EVERY DAY completed levothyroxin e sodium 0.05 MG Oral Tablet [facility]) olanzapine 15 MG Oral Tablet Olanzapine 15 Mg Tablet T ablet, 15 Mg Oral Olanzapine 15 Mg Tablet Tablet, 15 Mg Oral [address] [facility] atomoxetine 10 MG Oral Capsule atomoxeti ne 10 mg capsule TAKE TWO CAPSULES BY MOUTH EVERY DAY atomoxetine 10 mg capsule TAKE TWO CAPSULES BY MOUTH E VERY DAY completed atomoxetine 10 MG Oral Capsule [facility]) Divalproex Sodium 500 MG Delayed Release Oral Tablet divalproex 500 mg tablet,delayed release TAKE ONE TABLET BY MOUTH TWICE A DAY divalproex 500 mg tablet,delayed release TAKE ONE TABLET BY MOUTH TWICE A DAY completed divalproex sodium 500 MG Delayed Release Oral Tablet [place] ([facility]) Trazodone Hydrochloride 100 MG Oral Tabl et trazodone 100 mg tablet TAKE ONE TABLET BY MOUTH AT BEDTIME trazodone 100 mg tablet TAKE ONE TABLET BY MOUTH AT BEDTIME completed trazodone hydr ochloride 100 MG Oral Tablet [facility]) Docusate Sodium 100 MG Oral Capsule docu sate sodium 100 mg capsule TAKE TWO CAPSULES BY MOUTH EVERY DAY NEEDED docusate sodium 100 mg capsule TAKE TWO CAPSULES BY MOUTH EVERY DAY NEEDED completed docusate sodium 100 MG Oral Capsule [facility] [facility]) 24 HR paliperidone 3 MG Extended Release Oral Tablet paliperidone ER 3 mg tablet,extended release 24 hr TAKE ONE TABLET BY MOUTH AT BEDTIME FOR ANTIPSYCHOTIC paliperidone ER 3 mg tablet,extended rel ease 24 hr TAKE ONE TABLET BY MOUTH AT BEDTIME FOR ANTIPSYCHOTIC completed 24 HR paliperidone 3 MG Extended Release Oral Tablet [place] ([facility]) Haloperidol 2 MG Oral Tablet haloperidol 2 mg tablet TAKE TWO TABLETS BY MOUTH THREE TIMES A DAY 8AM 1PM. AND 9PM haloperidol 2 mg tablet TAKE TWO TABLETS BY MOUTH THREE TIMES A DAY 8AM 1PM. AND 9PM completed haloperidol 2 MG Oral Tablet [place] ([facility]) benztropine mesylate 1 MG Oral Tablet be nztropine 1 mg tablet TAKE ONE TABLET BY MOUTH TWICE A DAY NEEDED benztropine 1 mg tablet TAKE ONE TABLET BY MOUTH TWICE A DAY NEEDED completed benztropine mesylate 1 MG Oral Tablet [facility] [facility]) Amitriptyline Hydrochloride 25 MG Oral T ablet amitriptyline 25 mg tablet TAKE ONE TABLET BY MOUTH AT BEDTIME amitriptyline 25 mg tablet TAKE ONE TABL ET BY MOUTH AT BEDTIME completed amitriptyline hydrochloride 25 MG Oral Tablet [facility] [facility]) Loratadine 10 MG Oral Tablet loratadine 10 mg tablet TAKE ONE TABLET BY MOUTH EVERY DAY loratadine 10 mg tablet TAKE ONE TABLET BY MOUTH EVERY DAY completed loratadine 10 MG Oral Tablet [place] ([facility]) 24 HR paliperidone 6 MG Extended Release Oral Tablet paliperidone ER 6 mg tablet,extended release 24 hr TAKE ONE TABLET BY MOUTH EVERY MORNING paliperidone ER 6 mg tablet,extended release 24 hr TAKE ONE TABLET BY MOUTH EVERY MORNING completed 24 HR paliperidone 6 MG Extended Release Oral Tablet [facility] ([facility]) Buprenorphine 8 MG / Naloxone 2 MG Oral Strip [Suboxone] Buprenorphine Hcl/Naloxone Hcl (Suboxone 8 Mg-2 Mg Sl Film) 1 Each Film Film, 8 Mg Sublingual Buprenorphine Hcl/Naloxone Hcl (Suboxone 8 Mg-2 Mg Sl Film) 1 Each Film Film, 8 Mg Sublingual 8 completed Twice [facility] atomoxetine 40 MG Oral Capsule atomoxeti ne 40 mg capsule TAKE ONE CAPSULE BY MOUTH EVERY DAY atomoxetine 40 mg capsule TAKE ONE CAPSULE BY MOUTH EVERY DA Y completed atomoxetine 40 MG Oral Capsule [place] ([facility]) Risperidone 2 MG Oral Tablet risperidone 2 mg tablet TAKE ONE TABLET BY MOUTH AT BEDTIME risperidone 2 mg tablet TAKE ONE TABLET BY MOUTH AT BEDTIME completed risperidone 2 MG Oral Tablet [place] [facility]) Mirtazapine 15 MG Oral Tablet mirtazapine 15 mg tablet christine zapine 15 mg tablet completed mirtazapine 15 MG Oral Tablet [place] ([facility]) 24 HR Oxybutynin chloride 5 MG Extended Release Oral Tablet oxybutynin chloride ER 5 mg tablet,extended release 24 hr TAKE ONE TABLET BY MOUTH EVERY DAY oxybutynin chloride ER 5 mg tablet,extended release 24 hr TAKE ONE TABLET BY MOUTH EVERY DAY completed 24 HR oxybutynin chloride 5 MG Extended Release Oral Tablet [place] ([facility]) doxycycline hyclate 100 MG Oral Tablet d oxycycline hyclate 100 mg tablet TAKE ONE TABLET BY MOUTH TWICE A DAY doxycycline hyclate 100 mg tablet TAKE O NE TABLET BY MOUTH TWICE A DAY completed doxycycline hyclate 100 MG Oral Tablet [place] ([facility]) gabapentin 300 MG Oral Capsule gabapenti n 300 mg capsule TAKE ONE CAPSULE BY MOUTH TWICE A DAY gabapentin 300 mg capsule TAKE ONE CAPSU LE BY MOUTH TWICE A DAY completed gabapentin 300 M G Oral Capsule [place] ([facility]) olanzapine 10 MG Oral Tablet olanzapine 10 mg tablet TAKE ONE HALF 0.5 TABLET BY MOUTH EVERY IN THE MORNING AND ONE 1 TABLET AT BEDTIME olanzapine 10 mg tablet TAKE ONE HALF 0.5 TABLET BY MOUTH EVERY IN THE MORNING AND ONE 1 TABLET AT BEDTIME completed emy zapine 10 MG Oral Tablet [place] ([facility]) Fluoxetine 10 MG Oral Capsule fluoxetine 10 mg capsule TAKE ONE CAPSULE BY MOUTH EVERY MORNING fluoxetine 10 mg capsule TAKE ONE CAPSULE BY MOUTH DILIA RY MORNING completed fluoxetine 10 MG Oral Capsule [place] ([facility]) olanzapine 5 MG Oral Tablet olanzapine 5 mg tablet TAKE ONE TABLET BY MOUTH EVERY MORNING AT 8AM olanzapine 5 mg tablet TAKE ONE TABLET B Y MOUTH EVERY MORNING AT 8AM completed olanza pine 5 MG Oral Tablet [place] ([facility]) Prazosin 1 MG Oral Capsule prazosin 1 mg capsule TAKE ONE CAPSULE BY MOUTH AT BEDTIME prazosin 1 mg capsule TAKE ONE CAPSULE BY MOUTH AT BEDTIME completed prazosin 1 MG Oral Capsule [facility] ([facility]) gabapentin 400 MG Oral Capsule gabapenti n 400 mg capsule TAKE ONE CAPSULE BY MOUTH FOUR TIMES A DAY gabapentin 400 mg capsule TAKE ONE CAPSU LE BY MOUTH FOUR TIMES A DAY completed gabapentin 400 MG Oral Capsule [facility] ([facility]) Sertraline 25 MG Oral Tablet sertraline 25 mg tablet TAKE ONE TABLET BY MOUTH EVERY MORNING sertraline 25 mg tablet TAKE ONE TABLET BY MOUTH EVERY MORNI NG completed sertraline 25 MG Oral Tablet [facility] [facility] [facility]) olanzapine 5 MG Disintegrating Oral Tabl et olanzapine 5 mg disintegrating tablet DISSOLVE ONE TABLET UNDER THE TONGUE EVERY DAY NEEDED FOR ANXIETY AGITATIONS olanzapine 5 mg disintegrating tablet DI SSOLVE ONE TABLET UNDER THE TONGUE EVERY DAY NEEDED FOR ANXIETY AGITATIONS completed olanzapine 5 MG Disintegrating Oral Tablet [facility] ([facility]) Naproxen 500 MG Oral Tablet naproxen 500 mg tablet TAKE ONE TABLET BY MOUTH TWICE A DAY AT 6AM AND 6PM naproxen 500 mg tablet TAKE ONE TABLET B Y MOUTH TWICE A DAY AT 6AM AND 6PM completed naproxen 500 MG Oral Tablet [facility] [facility]) Docusate Sodium 100 MG Oral Capsule [Col gopi] Docusate Sodium (Colace) 100 Mg Capsule Capsule, 100 Mg Oral Docusate Sodium (Colace) 100 Mg Capsule Capsule, 100 Mg Oral 100 completed Three Time s a Day as needed [facility]. Divalproex Sodium 250 MG Delayed Release Oral Tablet divalproex 250 mg tablet,delayed release TAKE ONE TABLET BY MOUTH TWICE A DAY divalproex 250 mg tablet,delayed release TAKE ONE TABLET BY MOUTH TWICE A DAY completed divalproex sodium 250 MG Delayed Release Oral Tablet SUSI ([facility]) topiramate 25 MG Oral Tablet topiramate 25 mg tablet TAKE TWO TABLETS BY MOUTH TWICE A DAY FOR HEADACHE topiramate 25 mg tablet TAKE TWO TABLETS BY MOUTH TWICE A DAY FOR HEADACHE completed to piramate 25 MG Oral Tablet [facility] ([facility]) Prazosin 2 MG Oral Capsule prazosin 2 mg capsule TAKE ONE CAPSULE BY MOUTH AT BEDTIME prazosin 2 mg capsule TAKE ONE CAPSULE BY MOUTH AT BEDTIME completed prazosin 2 MG Oral Capsule ATHEN A ([facility]) topiramate 50 MG Oral Tablet [Topamax] Topamax 50 mg t ablet Topamax 50 mg tablet completed topiramate 50 MG Oral Tablet [Topamax] NextGen ([facility]) Sertraline 100 MG Oral Tablet sertraline 100 mg tablet TAKE ONE TABLET BY MOUTH EVERY DAY sertraline 100 mg tablet TAKE ONE TABLET BY MOUTH EVERY DAY completed sertraline 100 MG Oral Table t [facility] [facility] ([facility]) gabapentin 600 MG Oral Tablet Gabapentin 600 Mg Tablet Tablet, 600 Mg Oral Gabapentin 600 Mg Tablet Tablet, 600 Mg Oral 600 completed [address] Times a Day [facility] aripiprazole 2 MG Oral Tablet aripiprazo le 2 mg tablet TAKE ONE TABLET BY MOUTH EVERY MORNING aripiprazole 2 mg tablet TAKE ONE TABLET BY MOUTH EVERY MORN ING completed aripiprazole 2 MG Oral Tablet [facility] ([facility]) 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 MG Oral Capsule gabapenti n 100 mg capsule TAKE ONE CAPSULE BY MOUTH TWICE A DAY 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 mg capsule TAKE ONE CAPSU LE BY MOUTH TWICE A DAY completed 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 M G Oral Capsule [facility]) Hydroxyzine Hydrochloride 50 MG Oral Tab let hydroxyzine HCl 50 mg tablet TAKE ONE TABLET BY MOUTH THREE TIMES A DAY NEEDED hydroxyzine HCl 50 mg tablet TAKE ONE TABLET BY MOUTH THREE TIMES A DAY NEEDED completed hydroxyzine hydrochloride 50 MG Oral Tablet [facility]) Haloperidol 10 MG Oral Tablet haloperido l 10 mg tablet TAKE TWO TABLETS BY MOUTH TWICE A DAY NEEDED haloperidol 10 mg tablet TAKE TWO TABLET S BY MOUTH TWICE A DAY NEEDED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 https://www.fda.gov/media/782544/download The ID NOW Instrument is a rapid molecular in vitro diagnostic test utilizing an isothermal nucleic acid amplification technology intended for the qualitative detection of nucleic acid from the SARS-CoV-2 viral RNA. THIS IS A STATE REPORTABLE COMMUNICABLE DISEASE. Manual entry verified by Jessika Villareal 01/27/21 1435 Test Performed By: [facility] [address] [place] [address] Director: Trinidad Zarco MD Name Value Range Interpretation Code Description Data Kassy rce(s) Supporting Document(s) ID Date Data Source [id number] 01/18/2021 01:26:00 PM EDT [facility]. DISCHARGE SUMMARY, ADULTDischarge Diagno sis1. Opiate abuse, continuous2. Hypotension, chronicPreceding HistoryPreceding history / Reason for [id number] female who presented today for getting detox done. She usesheroin 1 bundle per day, last use was at 6 a.m. today, Sylvie 1-2 gram aday, last use was 1 week ago, meth 1-2 gram daily and with last use 2days ago, cannabis daily a couple of buffy. Today prior to coming [facility], the patient took multiple pills of the [...] schizoaffecivedisorder, bipolar, anxiety [facility]. Patient [...] she can go to inpatient rehab at [facility] on 01/22. Marilynn entendorsed that she would [...] Provider, in 1 week, Inpatient rehab at [facility] Care Provider:NONENursing Appointments ScheduledOther Follow up with:PT IS TO HAVE INPT REHAB AT [facility] 01/22/21KRBIAITN COUNCELOR TO CALL [facility] TO PROVIDE ADESIGNATED TIME FOR ARRIVALMEDICATIONSMedication ReconciledBuprenorphine HCl/Naloxone HCl(Suboxone 8 MG-2 MG Sl Film) 1 EACH FILM 8 MG SL BID 5 Days #10 FILM,Ref 0Prescribed by Kena Chowdhury, on 01/18/21Last Action: No Recorded ActionDocusate Sodium(Colace) 100 MG CAPSULE 200 MG PO DAILY PRN 5 Days #10 TAB, Ref 0Prescribed by Kena Chowdhury, on 01/18/21Last Action: No Recorded ActionDoxycycline Krhhguk238 MG TABLET 100 MG PO BID 10 Days #20 TAB, Ref 0Prescribed by Kena Chowdhury, on 01/18/21Last Action: No Recorded LyiqfmXwqljiponc394 MG TABLET 600 MG PO TID 5 Days #15 TAB, Ref 0Prescribed by Kena Chowdhury, on 01/18/21Last Action: No Recorded SvtqujRuyrhohsulo33 MG TABLET 15 MG PO HS 5 Days #5 TAB, Ref 0Prescribed by Kena Chowdhury, DO on 01/18/21Last Action: No Recorded ActionMulti-Vit/Mineral(Multivitamin Tablet) 1 TAB TAB 1 TAB PO DAILY 5 Days #5 TAB, Ref 0Prescribed by Kena Chowdhury, on 01/18/21Last Action: No Recorded RgxouqOnvlczguun54 MG TABLET 15 MG PO HS 5 Days #5 TAB, Ref 0Prescribed by Kena Chowdhury, on 01/18/21Last Action: No Recorded ActionPrazosin HCl(Minipress) 2 MG CAPSULE 2 MG PO HS 5 Days #5 CAPSULE, Ref 0Prescribed by Kena Chowdhury, DO on 01/18/21Last Action: No Recorded ActionRisperidone(Risperdal) 3 MG TABLET 3 MG PO HS 5 Days #5 TAB, Ref 0Prescribed by Kena Chowdhury, on 01/18/21Last Action: No Recorded ActionSertraline HCl50 MG TABLET 50 MG PO HS 5 Days #5 TAB, Ref 0Prescribed by Kena Chowdhury, DO on 01/18/21Last Action: No Recorded ActionVACCINE STATUSCurrent influenza vaccination?:YesDate of Influenza Vacc:2020Current pneumonia vaccination?:NoWant pneumonia Vaccination?:PT DECLINES VACCINATIONDischarge Plan1. Opiate detox. As per protocol-COWS scale (0)-Cw Suboxone 8mg BID-Counselor is following - inpatient bed available at [facility] on 01/22.2. Gabapentin overdose. Poison control recommended holding Gabapentin andmonitoring for 6 hours on admission. Gabapentin was resumed prior todischarge.3. Anxiety/depression/schizoaffective disorder/bipolar disorder. Resumehome medications.4. Tobacco abuse. Patient counseled on admission. Nicotine patch5. Open sore in antecubital region. Treated with Keflex and mckeon sitionedto Doxycycline at discharge for 10 daysCode Status: Full codeGI prophylaxis: ProtonixVTE prophylaxis: Early ambulationDispo: Inpatient bed available at [facility] on 01/22. Stable for discharge andwill stay with her stepdad.Time spent60 MinutesDictated on 01/18/21 1326 by Kena Chowdhury, DOTranscribed on 01/18/21 1326 by Kena Chowdhury DOSign by Kena Chowdhury DO on 01/18/21 1404Sign by: Kena Chowdhury DO Name Value Range Interpretation Code Description Data Kassy rce(s) Supporting Document(s) ID Date Data Source [id number] 01/17/2021 02:41:00 PM EDT [employer]. Counselor Progress NotePatient NoteCOUNS LIZA SPOKE WITH [...] 01/22/21 WHEN HER BED IS OPEN AT [facility] REHAB. ALSO COUNSELOR SET UPTANSPORTATION FOR PATIENT SHE COULD NOT GET A RIDE HOME. SO HER RIDEWILL BE HERE TOMORROW AT 1:00 PM AFTER SHE IS DISCHARGED.Dictated on 01/17/21 1441 by Cherrie,TriciaTranscribed on 01/17/21 1441 by CherrieTriciaSign by Nuzhat Grier on 01/17/21 1446Sign by: Nuzhat Grier Name Value Range Interpretation Code Description Data Kassy rce(s) Supporting Document(s) ID Date Data Source [id number] 01/17/2021 11:27:00 AM EDT [employer] Counselor Progress NotePatient NoteDR. C ELVIS IN TO TALK TO COUNSELOR ABOUT PATIENT AND HER BEING DISCHARGEDAND HER AFTER PLANS. COUNSELOR CALLED [facility] AND TALKED TOA ASSISTANT FOOTBALL COACH ABOUT PATIENT GOING THERE ONLY TO FIND OUT THAT IT'S A DETOXCENTER WELL. COUNSELOR HAD GONE TO TALK TO THE DR ABOUT [facility] TO LET HIM KNOW WHAT SHE HAD FOUND OUT. TOLD COUNSELOR THAT EVIE TALKED TO PATIENT ABOUT HER STAYING WITH HER STEPDAD UNTIL HER BEDWAS READY AT [facility]. SO COUNSELOR WENT TO TALK [...] Cherrie,TriciaSign by Cherrie,Nuzhat on 01/17/21 1133Sign by: CherrieNuzhat Name Value Range Interpretation Code Description Data Kassy rce(s) Supporting Document(s) ID Date Data Source [id number] 01/17/2021 10:19:00 AM EDT [employer]. Counselor Progress NotePatient NoteCOUNS ELOR WENT TO [...] Cherrie,TriciaSign by Cherrie,Nuzhat on 01/17/21 1023Sign by: Cherrie,Nuzhat Name Value Range Interpretation Code Description Data Kassy rce(s) Supporting Document(s) ID Date Data Source [id number] 01/17/2021 06:53:00 AM EDT [employer] Provider Short NotePatient NoteCalled by RN that patient has left AC area swelling. Patient was seen.She has small area of cellulitis in the left AC area. Will treat withp.o. cephalexin.Dictated on 01/17/21652 by Arcelia Tate M.D.Transcribed on 01/17/21652 by Arcelia TateSign by Arcelia Tate M.D. on 01/19/212034Sign by: Arcelia Tate M.D. Name Value Range Interpretation Code Description Data Kassy rce(s) Supporting Document(s) ID Date Data Source [id number] 01/16/2021 03:24:00 PM EDT [employer] Counselor Progress NotePatient NoteCOTASHA DE JESUS WENT BY TO SEE PATIENT [...] rce(s) Supporting Document(s) ID Date Data Source [id number] 01/16/2021 02:08:00 PM EDT [employer] Counselor Progress NotePatient Dominic DE JESUS [...] rce(s) Supporting Document(s) ID Date Data Source [id number] 01/16/2021 02:04:00 PM EDT [employer] Counselor Progress NotePatient NoteCOTASHA DE JESUS WENT AND CHECKED IN ON PATIENT THIS MORNING, SHE WAS UP BUTLAYING DOWN. COUSNELOR ASKED HOW SHE WAS DOING SHE SAID SHE WAS VERYTIRED. COUNSELOR ASKED HER WHY, WAS SHE NOT SLEEPING WELL? PATIENTREPLIED THAT SHE WASN'T SLEEPING GOOD AT NIGHT. SO COUNSELOR LEFT TO [place] GET SOME REST.Dictated on 01/16/21 1404 by Cherrie,TriciaTranscribed on 01/16/21 1404 by CherrieTriciaSign by CherrieNuzhat on 01/16/21 1408Sign by: Nuzhat Grier Name Value Range Interpretation Code Description Data Kassy rce(s) Supporting Document(s) ID Date Data Source [id number] 01/15/2021 04:16:00 PM EDT [employer] Counselor Progress NotePatient NoteCOTASHA JERONIMODELIA BLAS, MS, CASAC-T, ENTERED THE PATIENT'S ROOM. SHEWAS ASLEEP. COUNSELOR NOTED HER TO SKIN COLOR TO BE PALE AND SHE WASSWEATING AND HER MOUTH WAS OPEN. COUNSELOR CONSULTED WITH ARMANDO GALVAN. SHEREPORTED PATIENT DID NOT SLEEP LAST NIGHT OR EAT YESTERDAY. SHE REPORTEDPATIENT ATE ABOUT 30% OF HER LUNCH AND THEN HAS BEEN ASLEEP SINCE THATTIME.Dictated on 01/15/21 1616 by Ike BlasTranscribed on 01/15/21 1616 by Zach Blas by Ike Blas on 01/15/21 1618Sign by: Ike Blas Name Value Range Interpretation Code Description Data Kassy rce(s) Supporting Document(s) ID Date Data Source [id number] 01/15/2021 01:59:00 PM EDT [employer] Counselor Progress NotePatient NoteCHEYENNE HESS BARNETT, CONFIRMED A 4 WEEK WAIT LIST FOR [facility]PAT[facility]ILITY [facility].Dictated on 01/15/21 1359 by Ike BlasTranscribed on 01/15/21 1359 by Zach Blas by Ike Blas on 01/15/21 1400Sign by: Ike Blas Name Value Range Interpretation Code Description Data Kassy rce(s) Supporting Document(s) ID Date Data Source [id number] 01/15/2021 01:36:00 PM EDT [employer] Counselor Progress NotePatient NoteCONFI RMED BED AT [facility] 01/22/21 - ADMISSION TIME PENDING.Dictated on 01/15/21 1336 by Ike BlasTranscribed on 01/15/21 1336 by Ike BlasSign by Ike Blas on 01/15/21 1337Sign by: Ike Blas Name Value Range Interpretation Code Description Data Kassy rce(s) Supporting Document(s) ID Date Data Source [id number] 01/14/2021 03:22:00 PM EDT [employer] Counselor Progress NotePatient NoteCOTASHA DE JESUS HAD WENT TO SEE IF PATIENT WAS [...] rce(s) Supporting Document(s) ID Date Data Source [id number] 01/14/2021 03:00:00 PM EDT [employer] [facility] Counselor Progress NotePatient NoteCHUYITA DE JESUS WENT TO SEE IF PATIENT WAS UP TO DO EVALUATION AND SHE WASSLEEPING.Dictated on 01/14/21 1500 by Cherrie,TriciaTranscribed on 01/14/21 1500 by Cherrie,TriciaSign by Cherrie,Nuzhat on 01/14/21 1501Sign by: CherrieNuzhat Name Value Range Interpretation Code Description Data Kassy rce(s) Supporting Document(s) ID Date Data Source [id number] 01/14/2021 01:44:00 PM EDT [employer]. Counselor Progress NotePatient Dominic DE JESUS WENT INTO PATIENTS ROOM AT 12:30 TO DO THE EVALUATION, THEPATIENT WAS SLEEPING SO COUNSELOR HAD LEFT THE PATIENT TO SLEEP.COUNSELOR CAME BACK TO HER OFFICE AND REPORTED PATIENT STATUS TO ALFREDA.NURSING ASSISTANT FOOTBALL COACH, SABINE PECK, WOKE THE PATIENT AND REQUESTED [...] 1344 by Cherrie,TriciaTranscribed on 01/14/21 1344 by CherrieTriciaSign by Cherrie,Nuzhat on 01/14/21 1355Sign by: CherrieNuzhat Name Value Range Interpretation Code Description Data Kassy rce(s) Supporting Document(s) ID Date Data Source [id number] 01/14/2021 09:26:00 AM EDT [employer]. Counselor Progress NotePatient NoteCHUYITA DE JESUS ALONG WITH CASSANDRA ARCHITECT WENT INTO PATIENTS ROOM AND ASKED HOW SHE WASDOING. PATIENT RESPONDED SHE WAS DOING OK. COUNSELOR INFORMED PATIENTTHAT SHE WAS HERE IF SHE NEEDED HER TO TALK OR ANYTHING.Dictated on 01/14/21 0926 by Cherrie,TriciaTranscribed on 01/14/21 0926 by Cherrie,TriciaSign by Cherrie,Nuzhat on 01/14/21 0933Sign by: Cherrie,Nuzhat Name Value Range Interpretation Code Description Data Kassy rce(s) Supporting Document(s) ID Date Data Source [id number] 01/13/2021 04:10:00 PM EDT [facility] Name Value Range Interpretation Code Description Data Kassy rce(s) Supporting Document(s) SARS-CoV-2 (COVID-19) RNA [Presence] in Respiratory specimen by IRIS with probe detection Negative; No COVID-2 RNA detected by PCR. [facility] This lab was ordered by [facility] and reported by . ID Date Data Source [id number] 12/08/2020 03:19:00 PM EDT [facility]) Name Value Range Interpretation Code Description Data Kassy rce(s) Supporting Document(s) influenza A amplification negative negative Influenza a Amplification [place] ([facility]) influenza B amplification negative negative Influenza B Amplification [facility]) RSV amplification negative negative RSV Amplification [facility]) sars covid-19 amplification negative negative Sars Cov id-19 Amplification [facility]) ID Date Data Source [id number] 12/08/2020 03:19:00 PM EDT [facility] Name Value Range Interpretation Code Description Data Kassy rce(s) Supporting Document(s) SARS coronavirus 2 RNA [Presence] in Res piratory specimen by IRIS with probe detection NEGATIVE [facility] This lab was ordered by [facility] a nd reported by [facility]. ID Date Data Source [id number] 12/08/2020 09:19:00 AM EDT [facility]) Name Value Range Interpretation Code Description Data Kassy rce(s) Supporting Document(s) thyroid stimulating hormone 1.050 uIU/mL 0.358-3.740 Thyroid Stimulating Hormone [facility]) ID Date Data Source [id number] 12/08/2020 09:19:00 AM EDT [facility]) Name Value Range Interpretation Code Description Data Kassy rce(s) Supporting Document(s) acetaminophen level < 2.0 10.0-30.0 Below low normal Acetaminop hen Level [facility]) ID Date Data Source [id number] 12/08/2020 09:19:00 AM EDT [facility]) Name Value Range Interpretation Code Description Data Kassy rce(s) Supporting Document(s) salicylate level 2.7 mg/dL 5.0-30.0 Below low normal Salicylate Le jose [facility]) ID Date Data Source [id number] 12/08/2020 09:19:00 AM EDT [facility]) Name Value Range Interpretation Code Description Data Kassy rce(s) Supporting Document(s) ethyl alcohol (ethanol) < 0.003 0.000-0.010 Ethyl Alcoh ol (Ethanol) [facility]) ID Date Data Source [id number] 12/08/2020 09:19:00 AM EDT [facility]) Name Value Range Interpretation Code Description Data Kassy rce(s) Supporting Document(s) glucose, fasting 93 mg/dL 70-100 Glucose, Fasting AT [facility]) blood urea nitrogen 10 mg/dL 7-18 Blood Urea Nitro gen [place] ([facility]) creatinine for GFR 0.61 mg/dL 0.55-1.30 Creatinine for GF R [place] ([facility]) glomerular filtration rate > 60.0 >60 Glomerula r Filtration Rate [place] ([facility]) sodium level 140 mEq/L 136-145 Sodium Level [facility] ([facility]) chloride level 111 mEq/L 98-107 Above high normal Chloride Level [place] ([facility]) potassium serum 4.1 mEq/L 3.5-5.1 Potassium Serum [facility] NA ([facility]) anion gap 7 mEq/L 8-16 Below low normal Anion Gap [place] ( [facility]) calcium level 9.9 mg/dL 8.5-10.1 Calcium Level [facility]) carbon dioxide level 22 mEq/L 21-32 Carbon Dioxide Level [facility]) ID Date Data Source [id number] 12/08/2020 09:19:00 AM EDT [facility] ([facility]) Name Value Range Interpretation Code Description Data Kassy rce(s) Supporting Document(s) AST/SGOT 28 U/L 7-37 AST/SGOT [facility] ([facility]) alkaline phosphatase 90 U/L 45-117 Alkaline Phosph atase [facility] ([facility]) ALT/SGPT 26 U/L 12-78 ALT/SGPT [facility] ([facility]) bilirubin,total 0.3 mg/dL 0.2-1.0 Bilirubin,total [facility] ([facility]) bilirubin,direct < 0.1 0.0-0.2 Bilirubin,direct AT [facility] ([facility]) albumin 3.9 gm/dL 3.2-5.2 Albumin [facility] ([facility]) total protein 8.4 gm/dL 6.4-8.2 Above high normal Total Protein [facility]) albumin/globulin ratio 1.2-2.2 Below low normal Albumin /globulin Ratio [facility] ([facility]) ID Date Data Source [id number] 12/08/2020 09:19:00 AM EDT [facility] ([facility]) Name Value Range Interpretation Code Description Data Kassy rce(s) Supporting Document(s) white blood count 9.1 10 4.0-10.0 White Blood Count [facility] ([facility]) red blood count 4.31 10 4.00-5.40 Red Blood Count [facility] NA ([facility]) hemoglobin 12.8 g/dL 12.0-15.5 Hemoglobin [facility] ([facility]) hematocrit 39.2 % 36.0-47.0 Hematocrit [facility] ([facility]) mean corpuscular volume 91.0 fL 80.0-96.0 Mean Corpusc ular Volume [facility] ([facility]) mean corpuscular hemoglobin 29.7 pg 27.0-33.0 Mean Cor puscular Hemoglobin [facility] ([facility]) mean corpuscular HGB conc 32.7 g/dL 32.0-36.5 Mean Corpu scular HGB Conc [facility] ([facility]) platelet count, automated 276 10 150-450 Platelet C ount, Automated [facility] ([facility]) red cell distribution width 13.7 % 11.5-14.5 Red Cell Distribution Width [facility] ([facility]) nucleated red blood cell % 0.0 % 0-0 Nucleated Red Blood Cell % [facility] ([facility]) ID Date Data Source [id number] 12/08/2020 08:11:00 AM EDT [place] ([facility]) Name Value Range Interpretation Code Description Data Kassy rce(s) Supporting Document(s) amphetamines level urine positive negative Above high andrea l Amphetamines Level Urine [facility] ([facility]) barbiturates urine negative negative Barbiturates Urin e [facility] ([facility]) benzodiazepines urine negative negative Benzodiazepine s Urine [facility] ([facility]) cannabinoids urine positive negative Above high normal Cannabinoi ds Urine [facility] ([facility]) cocaine metabolite urine negative negative Cocaine Met abolite Urine SUSI ([facility]) opiates urine negative negative Opiates Urine [place] ( [facility]) methadone urine negative negative Methadone Urine ATHE ([facility]) phencyclidine urine negative negative Phencyclidine Ur ine SUSI ([facility]) ID Date Data Source [id number] 12/07/2020 09:14:00 AM EDT [place] ([facility]) Name Value Range Interpretation Code Description Data Kassy rce(s) Supporting Document(s) istat troponin 0.01 NG/mL 0.00-0.08 Istat Troponin [place] ([facility]) ID Date Data Source [id number] 12/07/2020 09:12:00 AM EDT [facility]) Name Value Range Interpretation Code Description Data Kassy rce(s) Supporting Document(s) istat HCT 38.0 % 38.0-51.0 Istat HCT SUSI ([facility]) istat sodium 138 mEq/L 136-145 Istat Sodium SUSI ([facility]) istat glucose 111 mg/dL 70-105 Above high normal Istat Glucose A THENA ([facility]) istat Ca++ 4.7 mg/dL 4.5-5.3 Istat Ca++ SUSI ([facility]) istat potassium 3.9 mEq/L 3.5-5.1 Istat Potassium ATHE NA ([facility]) istat CO2 23.0 mm/L 23.0-27.0 Istat CO2 SUSI ([facility]) istat chloride 105 mEq/L 98-109 Istat Chloride SUSI ([facility]) istat BUN 9 mg/dL 8-26 Istat BUN SUSI ([facility]) istat creatinine 0.6 mg/dL 0.6-1.3 Istat Creatinine AT [facility] ([facility]) ID Date Data Source [id number] 12/01/2020 03:02:00 AM EDT [facility] Name Value Range Interpretation Code Description Data Kassy rce(s) Supporting Document(s) SARS coronavirus 2 RNA [Presence] in Res piratory specimen by IRIS with probe detection NEGATIVE [facility] This lab was ordered by [facility] a nd reported by [facility]. ID Date Data Source [id number] 09/15/2020 03:35:50 PM EST [facility] ([facility]) Name Value Range Interpretation Code Description Data Kassy rce(s) Supporting Document(s) Color: yellow; Glucose: nega tive; Blood: small; pH: 6.0; Protein: small; Nitrite: positive; Leukocytes: moderate Abnormal (appl ies to non-numeric results) Urine Dipstick [facility] ID Date Data Source [id number] 09/15/2020 03:35:12 PM EST [facility] ([facility]) Name Value Range Interpretation Code Description Data Kassy rce(s) Supporting Document(s) NegativeLot: [id number]: 03/31/2022 High Sensitivity Urine Test Andre ([facility]) ID Date Data Source [id number] 06/02/2020 02:08:00 PM EST SUSI ([facility]) Name Value Range Interpretation Code Description Data Kassy rce(s) Supporting Document(s) alkaline phosphatase 75 U/L 45-117 Alkaline Phosph atase SUSI ([facility]) ALT/SGPT 74 U/L 12-78 ALT/SGPT [place] ([facility]) AST/SGOT 58 U/L 7-37 Above high normal AST/SGOT SUSI ([facility]) total protein 7.7 gm/dL 6.4-8.2 Total Protein SUSI ( [facility]) bilirubin,total 0.4 mg/dL 0.2-1.0 Bilirubin,total ATHE ([facility]) bilirubin,direct 0.1 mg/dL 0.0-0.2 Bilirubin,direct AT JIM ([facility]) albumin/globulin ratio 1.2-2.2 Below low normal Albumin /globulin Ratio SUSI ([facility]) albumin 3.7 gm/dL 3.2-5.2 Albumin [place] ([facility]) ID Date Data Source [id number] 06/02/2020 02:08:00 PM EST SUSI ([facility]) Name Value Range Interpretation Code Description Data Kassy rce(s) Supporting Document(s) amphetamines level urine positive negative Above high andrea l Amphetamines Level Urine SUSI ([facility]) benzodiazepines urine negative negative Benzodiazepine s Urine SUSI ([facility]) barbiturates urine negative negative Barbiturates Urin e SUSI ([facility]) cannabinoids urine positive negative Above high normal Cannabinoi ds Urine SUSI ([facility]) cocaine metabolite urine negative negative Cocaine Met abolite Urine SUSI ([facility]) methadone urine positive negative Above high normal Methadone Uri ne SUSI ([facility]) phencyclidine urine negative negative Phencyclidine Ur ine SUSI ([facility]) opiates urine positive negative Above high normal Opiates Urine A [place] ([facility]) ID Date Data Source [id number] 06/02/2020 02:08:00 PM EST SUSI ([facility]) Name Value Range Interpretation Code Description Data Kassy rce(s) Supporting Document(s) white blood count 5.8 10 4.0-10.0 White Blood Count [place] ([facility]) red blood count 3.95 10 4.00-5.40 Below low normal Red Blood Coun t [place] ([facility]) hemoglobin 12.2 g/dL 12.0-15.5 Hemoglobin [place] ([facility]) mean corpuscular volume 94.2 fL 80.0-96.0 Mean Corpusc ular Volume SUSI ([facility]) hematocrit 37.2 % 36.0-47.0 Hematocrit [place] ([facility]) mean corpuscular hemoglobin 30.9 pg 27.0-33.0 Mean Cor puscular Hemoglobin [place] ([facility]) mean corpuscular HGB conc 32.8 g/dL 32.0-36.5 Mean Corpu scular HGB Conc [place] ([facility]) red cell distribution width 12.8 % 11.5-14.5 Red Cell Distribution Width [place] ([facility]) nucleated red blood cell % 0.0 % 0-0 Nucleated Red Blood Cell % SUSI ([facility]) platelet count, automated 195 10 150-450 Platelet C ount, Automated SUSI ([facility]) ID Date Data Source [id number] 06/02/2020 02:08:00 PM EST SUSI ([facility]) Name Value Range Interpretation Code Description Data Kassy rce(s) Supporting Document(s) HCG, serum qualitative negative negative HCG, Serum Qu alitative SUSI ([facility]) ID Date Data Source [id number] 06/02/2020 02:08:00 PM EST SUSI ([facility]) Name Value Range Interpretation Code Description Data Kassy rce(s) Supporting Document(s) thyroid stimulating hormone 1.690 uIU/mL 0.358-3.740 [facility] Date Data Source [id number] 06/02/2020 02:08:00 PM EST SUSI ([facility]) Name Value Range Interpretation Code Description Data Kassy rce(s) Supporting Document(s) acetaminophen level < 2.0 10.0-30.0 Below low normal Acetaminop hen Level [facility]) ID Date Data Source [id number] 06/02/2020 02:08:00 PM EST SUSI ([facility]) Name Value Range Interpretation Code Description Data Kassy rce(s) Supporting Document(s) salicylate level < 1.7 5.0-30.0 Below low normal Salicylate Le jose SUSI ([facility]) ID Date Data Source [id number] 06/02/2020 02:08:00 PM EST SUSI ([facility]) Name Value Range Interpretation Code Description Data Kassy rce(s) Supporting Document(s) ethyl alcohol (ethanol) < 0.003 0.000-0.010 Ethyl Alcoh ol (Ethanol) SUSI ([facility]) ID Date Data Source [id number] 06/02/2020 02:08:00 PM [facility] Name Value Range Interpretation Code Description Data Kassy rce(s) Supporting Document(s) creatinine for GFR 0.71 mg/dL 0.55-1.30 Creatinine for GF R [place] ([facility]) blood urea nitrogen 7 mg/dL 7-18 Blood Urea Nitro gen [place] ([facility]) glucose, fasting 82 mg/dL 70-100 Glucose, Fasting AT JIM ([facility]) glomerular filtration rate > 60.0 >60 Glomerula r Filtration Rate SUSI ([facility]) sodium level 139 mEq/L 136-145 [facility] potassium serum 3.6 mEq/L 3.5-5.1 Potassium Serum ATHE NA ([facility]) anion gap 6 mEq/L 8-16 Below low normal Anion Gap SUSI ( [facility]) carbon dioxide level 24 mEq/L 21-32 Carbon Dioxide Level SUSI ([facility]) chloride level 109 mEq/L 98-107 Above high normal Chloride Level SUSI ([facility]) calcium level 8.8 mg/dL 8.5-10.1 Calcium Level [place] ( [facility]) ID Date Data Source [id number] 06/01/2020 01:01:00 PM EST [place] ([facility]) Name Value Range Interpretation Code Description Data Kassy rce(s) Supporting Document(s) amphetamines level urine positive negative Above high andrea l Amphetamines Level Urine SUSI ([facility]) cocaine metabolite urine positive negative Above high andrea l Cocaine Metabolite Urine SUSI ([facility]) cannabinoids urine positive negative Above high normal Cannabinoi ds Urine SUSI ([facility]) benzodiazepines urine negative negative Benzodiazepine s Urine SUSI ([facility]) barbiturates urine negative negative Barbiturates Urin e [facility]USI ([facility]) phencyclidine urine negative negative Phencyclidine Ur ine [facility]I ([facility]) methadone urine positive negative Above high normal Methadone Uri ne SUSI ([facility]) opiates urine positive negative Above high normal Opiates Urine A THENA ([facility]) ID Date Data Source [id number] 06/01/2020 01:01:00 PM EST [place] ([facility]) Name Value Range Interpretation Code Description Data Kassy rce(s) Supporting Document(s) HCG, serum qualitative negative negative HCG, Serum Qu alitative SUSI ([facility]) ID Date Data Source [id number] 06/01/2020 01:01:00 PM EST SUSI ([facility]) Name Value Range Interpretation Code Description Data Kassy rce(s) Supporting Document(s) thyroid stimulating hormone 4.060 uIU/mL 0.358-3.740 Above high no rmal Thyroid Stimulating Hormone [place] ([facility]) ID Date Data Source [id number] 06/01/2020 01:01:00 PM EST SUSI ([facility]) Name Value Range Interpretation Code Description Data Kassy rce(s) Supporting Document(s) acetaminophen level < 2.0 10.0-30.0 Below low normal Acetaminop hen Level [facility]) ID Date Data Source [id number] 06/01/2020 01:01:00 PM EST SUSI ([facility]) Name Value Range Interpretation Code Description Data Kassy rce(s) Supporting Document(s) salicylate level < 1.7 5.0-30.0 Below low normal Salicylate Le jose SUSI ([facility]) ID Date Data Source [id number] 06/01/2020 01:01:00 PM EST SUSI ([facility]) Name Value Range Interpretation Code Description Data Kassy rce(s) Supporting Document(s) ethyl alcohol (ethanol) < 0.003 0.000-0.010 Ethyl Alcoh ol (Ethanol) SUSI ([facility]) ID Date Data Source [id number] 06/01/2020 01:01:00 PM EST SUSI [facility]) Name Value Range Interpretation Code Description Data Kassy rce(s) Supporting Document(s) glucose, fasting 129 mg/dL 70-100 Above high normal Glucose, Fas ting [place] ([facility]) blood urea nitrogen 12 mg/dL 7-18 Blood Urea Nitro gen SUSI ([facility]) creatinine for GFR 0.83 mg/dL 0.55-1.30 Creatinine for GF R S[facility]I ([facility]) sodium level 136 mEq/L 136-145 Sodium Level SUSI ([facility]) glomerular filtration rate > 60.0 >60 Glomerula r Filtration Rate SUSI ([facility]) potassium serum 3.6 mEq/L 3.5-5.1 Potassium Serum ATHE NA ([facility]) chloride level 103 mEq/L 98-107 Chloride Level SUSI ([facility]) carbon dioxide level 23 mEq/L 21-32 Carbon Dioxide Level SUSI ([facility]) anion gap 10 mEq/L 8-16 Anion Gap SUSI ([facility]) calcium level 8.8 mg/dL 8.5-10.1 Calcium Level SUSI ( [facility]) ID Date Data Source [id number] 06/01/2020 01:01:00 PM EST SUSI ([facility]) Name Value Range Interpretation Code Description Data Kassy rce(s) Supporting Document(s) AST/SGOT 61 U/L 7-37 Above high normal AST/SGOT [facility] ([facility]) ALT/SGPT 89 U/L 12-78 Above high normal ALT/SGPT [facility] ([facility]) alkaline phosphatase 80 U/L 45-117 Alkaline Phosph atase [facility]I ([facility]) bilirubin,total 0.3 mg/dL 0.2-1.0 Bilirubin,total ATHE ([facility]) total protein 8.4 gm/dL 6.4-8.2 Above high normal Total Protein A THENA ([facility]) bilirubin,direct 0.1 mg/dL 0.0-0.2 Bilirubin,direct AT [facility] ([facility]) albumin/globulin ratio 1.2-2.2 Below low normal Albumin /globulin Ratio SUSI ([facility]) albumin 4.2 gm/dL 3.2-5.2 Albumin SUSI ([facility]) ID Date Data Source [id number] 06/01/2020 01:01:00 PM EST SUSI ([facility]) Name Value Range Interpretation Code Description Data Kassy rce(s) Supporting Document(s) white blood count 5.6 10 4.0-10.0 White Blood Count S[facility]I ([facility]) red blood count 4.07 10 4.00-5.40 Red Blood Count ATHE NA ([facility]) hemoglobin 12.4 g/dL 12.0-15.5 Hemoglobin SUSI ([facility]) hematocrit 37.8 % 36.0-47.0 Hematocrit SUSI ([facility]) mean corpuscular hemoglobin 30.5 pg 27.0-33.0 Mean Cor puscular Hemoglobin [facility]USI ([facility]) mean corpuscular HGB conc 32.8 g/dL 32.0-36.5 Mean Corpu scular HGB Conc SUSI ([facility]) mean corpuscular volume 92.9 fL 80.0-96.0 Mean Corpusc ular Volume SUSI ([facility]) neutrophils % 39.6 % 36.0-66.0 Neutrophils % SUSI ( [facility]) red cell distribution width 12.8 % 11.5-14.5 Red Cell Distribution Width [place] ([facility]) platelet count, automated 205 10 150-450 Platelet C ount, Automated SUSI ([facility]) mono % 8.0 % 0.0-5.0 Above high normal [place] % SUSI ([facility]) lymph % 48.6 % 24.0-44.0 Above high normal Lymph % SUSI ([facility]) baso % 0.9 % 0.0-1.0 Baso % SUSI ([facility]) eos % 2.7 % 0.0-3.0 Eos % SUSI ([facility]) immature granulocyte % 0.2 % 0-3.0 Immature Gran ulocyte % SUSI ([facility]) nucleated red blood cell % 0.0 % 0-0 Nucleated Red Blood Cell % [facility]I ([facility]) neutrophils # 2.2 10 1.5-8.5 Neutrophils # SUSI ( [facility]) lymph # 2.7 10 1.5-5.0 Lymph # SUSI ([facility]) mono # 0.5 10 0.0-0.8 [place] # SUSI ([facility]) eos # 0.2 10 0.0-0.5 Eos # SUSI ([facility]) baso # 0.1 10 0.0-0.2 Baso # SUSI ([facility]) ID Date Data Source [id number] 05/07/2020 09:44:00 AM EDT [facility] Name Value Range Interpretation Code Description Data Kassy rce(s) Supporting Document(s) Free T4 (Free Thyroxine) 0.76-1.46 Normal (applies to non -numeric results) [facility] ID Date Data Source [id number] 05/07/2020 09:44:00 AM EDT [facility] Name Value Range Interpretation Code Description Data Kassy rce(s) Supporting Document(s) Thyroid Stimulate Hormone TSH 0.358-3.740 Above high andera l [facility] ID Date Data Source [id number] 04/30/2020 01:37:00 PM EDT [facility] Name: CELY SIMS Med Rec #: [id number] 14 : 1985 Age/Sex: 34F Date of [...] Discharge Instruction: Discharge Summary Sheet, Constipation, Adult, Gbqu-qj-Iznk, Medication Reconciliation Name Value Range Interpretation Code Description Data Kassy rce(s) Supporting Document(s) ID Date Data Source [id number] 04/30/2020 01:37:00 PM EDT [facility] Name: CELY SIMS [facility] Rec #: [id number] 14 : 1985 Age/Sex: 34F Date of [...] a 34-year-old female with history of mental [facility] health disorders including schizophrenia, depression, anxiety, bipolar [...] fevers, headaches, chest pain, shortness of breath.. 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 ROS: 14:40 Constitutional: Negative for fever, chills, [...] rate of 83 zrw1 beats per minute. SD 168ms. QRS 94ms. QT 426. Normal axis. . 04/30 14:27 Order name: CRP - Wide Range; Complete Time: 15: zrw04/30 15:54 Interpretation: CRP-wr < 2.90. 04/30 14:27 Order name: Cbc With Auto Differential; Complete Time: 15:zrw04/30 15:53 Interpretation: WBC 6.8; HGB 11.6; HCT [...] 14:27 Order name: Lipase; Complete Time: 15:22 zrw04/30 15:54 Interpretation: LIP 85. 04/30 14:27 Order [...] 04/30 14:58 Order name: Urinalysis Auto w/Microscopy EDCT 04/30 14:58 Order name: Urine Culture [facility] 04/30 15:02 Order name: Emergency Room EKG [...] Discharge Summary Sheet zrw1 - Constipation, Adult, Sllp-ne-Pzkx zrw1 Forms: - Medication Reconciliation zrw1 Prescriptions: - Cephalexin 500 mg Oral Capsule - take 1 capsule by ORAL route every 12 hours for 5 zrw1 days; 10 capsule; Refills: 0, Product Selection Permitted - magnesium citrate Oral Solution - take 1 bottle by ORAL route one time; 1 bottle; zrw1 Refills: 0, Product Selection Permitted Signatures: Dispatcher [employer] Ori Lobo RN RN tp1 Maira Nunez RN RN [...] rce(s) Supporting Document(s) ID Date Data Source [id number] 04/30/2020 01:37:00 PM EDT [facility] Name: CELY SIMS [facility] Rec #: [id number] 14 : 1985 Age/Sex: 34F Date of Service: 04/30/20 NURSE CHART Nurse's Notes [facility] Name: Cely Sims Age: 34 yrs Sex: Female : 1985 Arrival Date: 04/30/2020 Time: 13:37 Bed 8 Private MD: Rehab, Provider Diagnosis: Abdominal Pain, Unspecified;Constipation, unspecified Presentation: 04/30 13:38 Acuity: Urgent - 3 awr 13:56 Transition of care: patient was not received from another [email or web address] setting of care. Presenting complaint: Patient states - She has not had a BM in the last two days despite using suppositories.. Pt is currently at our rehab facility. Have you travelled in the last 30 days? Yes, Where have you travelled? From [place]. . Have you had contact with an [...] Abdomen is distended, The patient reports constipation. 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 Screenin:06 AUDIT 1. How often do you [...] obtained and reviewed by Stephen Woods MD. [facility] 15:28 Cardiology EKG Interpretation - Choose Reason for Test Sent.[facility] 16:18 Rehab, Provider is Referral Physician. zrw1 [...] dk2 Outcome: 16:18 Discharge ordered by . [email or web address] 16:35 Patient verbalized understanding of disposition sj [...] phone number Signatures: Surekha Carvajal RN RN sj Palmer, Ted RN RN [email or web address] Maira Nunez RN RN dk2 Jesse Hernandez RN RN Yoli Rosado NA NA jmg Willis, Zachary, PA PA zrw1 Antonina Ivey Name Value Range Interpretation Code Description Data Kassy rce(s) Supporting Document(s) ID Date Data Source [id number] 05/01/2020 09:27:00 AM EDT [facility] Name: CELY SIMS : 1985 A ge/Sex: 34F Ordering Provider: LEA White Med Rec #: [id number] Reg Status:DEP ER Room #: Date of Service: 04/30/20 Report Number: [id number] cc: PCP None; LEA White Send Report To: Reason for exam: ABDOMINAL PAIN SINUS RHYTHM POSSIBLE RIGHT VENTRICULAR CONDUCTION DELAY BORDERLINE ECG Compared to 04/18/2020 there is no significant change Physician International Account Manager: Serafin Daugherty M.D. ECG HEART RATE: 83 /min ECG RR INTERVAL: 716 ms ECG P DURATION: 119 ms ECG QRS DURATION: 94 ms ECG SD INTERVAL: 168 ms ECG QT INTERVAL: 426 ms ECG QTC INTERVAL: 466 ms Q-T dispersion: ms ECG P AXIS: 42 deg ECG QRS AXIS: 21 deg ECG T AXIS: 33 deg REPORT SIGNATURE ON FILE 05/01/20927 Reported By: Serafin Daugherty MD, [facility] <<Signature on File>> Exam Date/Time: 04/30/20 1523 Order #: [id number] Dictation Date/Time: 05/01/20926 Transcribed Date/Time: 05/01/20926 Restaurant General Manager: LETICIA Name Value Range Interpretation Code Description Data Kassy rce(s) Supporting Document(s) ID Date Data Source [id number] 05/02/2020 10:45:00 AM EDT [facility] Name Value Range Interpretation Code Description Data Kassy rce(s) Supporting Document(s) Urine Culture Normal (applies to non-numeric re sults) [facility] ID Date Data Source [id number] 04/30/2020 03:21:00 PM EDT [facility] Name Value Range Interpretation Code Description Data Kassy rce(s) Supporting Document(s) Sodium 142 mmol/L 137-145 Normal (applies to non-numeric resul ts) [facility] Potassium 3.5-5.1 Normal (applies to non-numeric resul ts) [facility] Chloride 113 mmol/L 98-112 Above high normal [facility] Carbon Dioxide CO2 22.0-33.0 Normal (applies to non-numer ic results) [facility] Anion Gap 4.0-11.0 Normal (applies to non-numeric resul ts) [facility] BUN 17 mg/dL 7-17 Normal (applies to non-numeric resul ts) [facility] Creatinine 0.70-1.20 Normal (applies to non-numeric resul ts) [facility] GFR 85 mL/min >60 Normal (applies to non-numeric resul ts) [facility] Result based on MDRD formula. Glucose Level 85 mg/dL 74-99 Normal (applies to non-numeric re sults) [facility] The reference range is only applicable w hen fasting. Calcium-Uncorrected 8.4-10.2 Normal (applies to non-nume claudia results) [facility] Corrected Calcium 8.4-10.2 Normal (applies to non-numeri c results) [facility] Bilirubin,Total 0.2-1.3 Below low normal [facility] SGOT(AST) 37 U/L 14-36 Above high normal [facility] SGPT(ALT) 37 U/L 9-52 Normal (applies to non-numeric resul ts) [facility] Alkaline Phosphatase 81 U/L 38-126 Normal (applies to non-num clementine results) [facility] can increase Alkaline Phosp le vels up to 2 times the normal adult value. Normal values for children and adolescents are 2 to 3 times the normal adult value. Total Protein 6.3-8.2 Normal (applies to non-numeric re sults) [facility] Albumin 3.5-5.0 Normal (applies to non-numeric resul ts) [facility] ID Date Data Source [id number] 04/30/2020 03:21:00 PM EDT [facility] Name Value Range Interpretation Code Description Data Kassy rce(s) Supporting Document(s) C-Reactive Protein,Wide Range <3.00 Normal (applies t o non-numeric results) [facility] ID Date Data Source [id number] 04/30/2020 03:21:00 PM EDT [facility] Name Value Range Interpretation Code Description Data Kassy rce(s) Supporting Document(s) Lipase 85 U/L 73-393 Normal (applies to non-numeric resul ts) [facility] ID Date Data Source [id number] 04/30/2020 03:07:00 PM EDT [facility] Name Value Range Interpretation Code Description Data Kassy rce(s) Supporting Document(s) White Blood Count 4.8-10.8 Normal (applies to non-numeri c results) [facility] Red Blood Count 3.68-5.22 Normal (applies to non-numeric results) [facility] Hemoglobin 11.2-15.7 Normal (applies to non-numeric resul ts) [facility] Hematocrit 34.1-44.9 Normal (applies to non-numeric resul ts) [facility] Mean Corpuscular Volume 81-99 Normal (applies to non- numeric results) [facility] Mean Corpuscular Hemoglobin 27.0-33.0 Normal (appli es to non-numeric results) [facility] Mean Corpuscular HGB Conc 32.0-36.0 Normal (applies to no n-numeric results) [facility] Red Cell Distribution Width 11.5-14.5 Normal (appli es to non-numeric results) [facility] Platelet Count 240 X10 3/uL 130-450 Normal (applies to non-numeric results) [facility] Mean Platelet Volume 9.5-12.7 Normal (applies to non-num clementine results) [facility] Imm Grans% (AUTO) 0 % 0-2 Normal (applies to non-numeri c results) [facility] Neutrophils % (AUTO) 42 % 40-75 Normal (applies to non-num clementine results) [facility] Lymphocytes % (AUTO) 46 % 21-46 Normal (applies to non-num clementine results) [facility] Monocytes % (AUTO) 7 % 5-12 Normal (applies to non-numer ic results) [facility] Eosinophils % (AUTO) 3 % 1-5 Normal (applies to non-num clementine results) [facility] Basophils % (AUTO) 1 % 0-1 Normal (applies to non-numer ic results) [facility] Imm Grans# (AUTO) 0.0-0.5 Normal (applies to non-numeri c results) [facility] Neutrophils # (AUTO) 1.5-8.1 Normal (applies to non-num clementine results) [facility] Lymphocytes # (AUTO) 1.0-3.1 Above high normal [facility] Monocytes # (AUTO) 0.2-1.3 Normal (applies to non-numer ic results) [facility] Eosinophils# (AUTO) 0.0-0.5 Normal (applies to non-nume claudia results) [facility] Basophils # (AUTO) 0.0-0.1 Normal (applies to non-numer ic results) [facility] ID Date Data Source [id number] 04/30/2020 03:15:00 PM EDT [facility] Control Line Present? YPerformed by: Jewels Valles HCG Screen Result: NEGATIVE Name Value Range Interpretation Code Description Data Kassy rce(s) Supporting Document(s) POC ED Urine HCG NEGATIVE Normal (applies to non-numeric results) [facility] ID Date Data Source [id number] 04/30/2020 03:10:00 PM EDT [facility] Name Value Range Interpretation Code Description Data Kassy rce(s) Supporting Document(s) Color,Urine Yellow Normal (applies to non-numeric resu lts) [facility] Clarity,Urine Clear Normal (applies to non-numeric re sults) [facility] Specific [place],Urine 1.001-1.030 Normal (applies to non- numeric results) [facility] PH,Urine 4.6-8.0 Normal (applies to non-numeric resul ts) [facility] Protein,Urine Negative Normal (applies to non-numeric re sults) [facility] Glucose,Urine (UA) Negative Normal (applies to non-numer ic results) [facility] Ketones,Urine Negative Normal (applies to non-numeric re sults) [facility] Blood,Urine Negative Normal (applies to non-numeric resu lts) [facility] Bilirubin,Urine Negative Normal (applies to non-numeric results) [facility] Urobilinogen,Urine Norm 0.2-1 Normal (applies to non-numer ic results) [facility] Leukocyte Esterase,Urine Negative [facility] Nitrite,Urine Negative Normal (applies to non-numeric re sults) [facility] ID Date Data Source [id number] 04/30/2020 03:10:00 PM EDT [facility] Name Value Range Interpretation Code Description Data Kassy rce(s) Supporting Document(s) WBC,URINE 0-10 [facility] RBC,Urine 0-2 Normal (applies to non-numeric resul ts) [facility] Hyaline Casts,Ur None Seen Normal (applies to non-numeric results) [facility] Bacteria,Urine None Seen [facility] Epithelial Cell,Ur None-Few [facility] ID Date Data Source [id number] 05/01/2020 06:14:00 AM EDT [facility] Name: CELY SIMS : 1985 A ge/Sex: 34F Ordering Provider: LEA White Med Rec #: [id number] Reg Status: [facility] Room #: Date of Service: 04/30/20 Report Number: [id number] cc:PCP None Send Report To: [id number] CT/CT Abdomen & Pelvis w Con Reason [...] Dictation Date/Time: 04/30/20 1541 Transcribed Date/Time: 05/01/20 0614 Restaurant General Manager: CHEL Name Value Range Interpretation Code Description Data Kassy rce(s) Supporting Document(s) ID Date Data Source [id number] 04/23/2020 09:55:00 AM EDT [facility] Name Value Range Interpretation Code Description Data Kassy rce(s) Supporting Document(s) Free T4 (Free Thyroxine) 0.76-1.46 Normal (applies to non -numeric results) [facility] ID Date Data Source [id number] 04/23/2020 09:55:00 AM EDT [facility] Name Value Range Interpretation Code Description Data Kassy rce(s) Supporting Document(s) Thyroid Stimulate Hormone TSH 0.358-3.740 Above high andrea l [facility] ID Date Data Source [id number] 04/18/2020 03:52:00 PM EDT [facility] Name: CELY SIMS : 1985 A ge/Sex: 34F Ordering Provider: Stephanie TATE Med Rec #: [id number] Reg Status:ADM IN Room #: 156-2 Date of Service: 04/18/20 Report Number: [id number] cc: Stephanie TATE; Annelise Gray MD Send Report To: Reason for exam: chest pain with cocaine SINUS RHYTHM POSSIBLE LEFT ATRIAL ENLARGEMENT POSSIBLE RIGHT VENTRICULAR CONDUCTION DELAY NONSPECIFIC T-WAVE ABNORMALITY [employer] International Account Manager: Dr. Ben Tillman M.D. ECG HEART RATE: 78 /min ECG RR INTERVAL: 765 ms ECG P DURATION: 115 ms ECG QRS DURATION: 90 ms ECG SD INTERVAL: 143 ms ECG QT INTERVAL: 426 ms ECG QTC INTERVAL: 457 ms Q-T dispersion: ms ECG P AXIS: 71 deg ECG QRS AXIS: 72 deg ECG T AXIS: 32 deg REPORT SIGNATURE ON FILE 04/18/201551 Reported By: Ben Tillman MD <<Signature on File>> Exam Date/Time: 04/18/20 0759 Order #: [id number] Dictation Date/Time: 04/18/201551 Transcribed Date/Time: 04/18/201551 Restaurant General Manager: LETICIA Name Value Range Interpretation Code Description Data Kassy rce(s) Supporting Document(s) ID Date Data Source [id number] 04/17/2020 11:39:00 AM EDT [facility] Value Range Interpretation Code Description Data Kassy rce(s) Supporting Document(s) Hep Bs Ag Result T-Test Nonreactive Normal (applies to non -numeric results) [facility] ID Date Data Source [id number] 04/17/2020 11:39:00 AM EDT [facility] Value Range Interpretation Code Description Data Kassy rce(s) Supporting Document(s) Syphilis Serology Nonreactive Normal (applies to non-numer ic results) [facility] ID Date Data Source [id number] 04/17/2020 11:39:00 AM EDT [facility] Value Range Interpretation Code Description Data Kassy rce(s) Supporting Document(s) HAVM Nonreactive Normal (applies to non-numeric resu lts) [facility] ID Date Data Source [id number] 04/17/2020 11:39:00 AM EDT [facility] Name Value Range Interpretation Code Description Data Kassy rce(s) Supporting Document(s) Vitamin D,Total (25OH) 30.0-100.0 Below low normal [facility] Reference Range: <10 ng/mL: Deficien t 10-30 ng/mL: Insufficient 30-100 ng/mL: Sufficient >100 ng/mL: Toxicity possible ID Date Data Source [id number] 04/17/2020 10:44:00 AM T [facility] Name Value Range Interpretation Code Description Data Kassy rce(s) Supporting Document(s) C-Reactive Protein,Wide Range <3.00 Normal (applies t o non-numeric results) [facility] ID Date Data Source [id number] 04/17/2020 10:44:00 AM [facility] Name Value Range Interpretation Code Description Data Kassy rce(s) Supporting Document(s) Magnesium 1.80-2.40 Normal (applies to non-numeric resul ts) [facility] ID Date Data Source [id number] 04/17/2020 10:44:00 AM [facility] Name Value Range Interpretation Code Description Data Kassy rce(s) Supporting Document(s) Sodium 137 mmol/L 137-145 Normal (applies to non-numeric resul ts) [facility] Potassium 3.5-5.1 Normal (applies to non-numeric resul ts) [facility] Chloride 110 mmol/L 98-112 Normal (applies to non-numeric resul ts) [facility] Carbon Dioxide CO2 22.0-33.0 Below low normal [facility] Anion Gap 4.0-11.0 Normal (applies to non-numeric resul ts) [facility] BUN 16 mg/dL 7-17 Normal (applies to non-numeric resul ts) [facility] Creatinine 0.70-1.20 Normal (applies to non-numeric resul ts) [facility] GFR 88 mL/min >60 Normal (applies to non-numeric resul ts) [facility] Result based on MDRD formula. Glucose Level 94 mg/dL 74-99 Normal (applies to non-numeric re sults) [facility] The reference range is only applicable w hen fasting. Calcium-Uncorrected 8.4-10.2 Normal (applies to non-nume claudia results) [facility] Corrected Calcium 8.4-10.2 Normal (applies to non-numeri c results) [facility] Bilirubin,Total 0.2-1.3 Normal (applies to non-numeric results) [facility] Bilirubin,Direct 0.0-0.3 Normal (applies to non-numeric results) [facility] SGOT(AST) 32 U/L 14-36 Normal (applies to non-numeric resul ts) [facility] SGPT(ALT) 35 U/L 9-52 Normal (applies to non-numeric resul ts) [facility] Alkaline Phosphatase 70 U/L 38-126 Normal (applies to non-num clementine results) [facility] can increase Alkaline Phosp le vels up to 2 times the normal adult value. Normal values for children and adolescents are 2 to 3 times the normal adult value. CPK 172 U/L 26-192 Normal (applies to non-numeric resul ts) [facility] Total Protein 6.3-8.2 Normal (applies to non-numeric re sults) [facility] Albumin 3.5-5.0 Normal (applies to non-numeric resul ts) [facility] Thyroid Stimulate Hormone TSH 0.358-3.740 Above high andrea l [facility] ID Date Data Source [id number] 04/17/2020 10:07:00 AM EDT [facility] Name Value Range Interpretation Code Description Data Kassy rce(s) Supporting Document(s) White Blood Count 4.8-10.8 Normal (applies to non-numeri c results) [facility] Red Blood Count 3.68-5.22 Normal (applies to non-numeric results) [facility] Hemoglobin 11.2-15.7 Normal (applies to non-numeric resul ts) [facility] Hematocrit 34.1-44.9 Below low normal [facility] Mean Corpuscular Volume 81-99 Normal (applies to non- numeric results) [facility] Mean Corpuscular Hemoglobin 27.0-33.0 Normal (appli es to non-numeric results) [facility] Mean Corpuscular HGB Conc 32.0-36.0 Normal (applies to no n-numeric results) [facility] Red Cell Distribution Width 11.5-14.5 Normal (appli es to non-numeric results) [facility] Platelet Count 197 X10 3/uL 130-450 Normal (applies to non-numeric results) [facility] Mean Platelet Volume 9.5-12.7 Normal (applies to non-num clementine results) [facility] Imm Grans% (AUTO) 0 % 0-2 Normal (applies to non-numeri c results) [facility] Neutrophils % (AUTO) 46 % 40-75 Normal (applies to non-num clementine results) [facility] Lymphocytes % (AUTO) 42 % 21-46 Normal (applies to non-num clementine results) [facility] Monocytes % (AUTO) 9 % 5-12 Normal (applies to non-numer ic results) [facility] Eosinophils % (AUTO) 3 % 1-5 Normal (applies to non-num clementine results) [facility] Basophils % (AUTO) 1 % 0-1 Normal (applies to non-numer ic results) [facility] Imm Grans# (AUTO) 0.0-0.5 Normal (applies to non-numeri c results) [facility] Neutrophils # (AUTO) 1.5-8.1 Normal (applies to non-num clementine results) [facility] Lymphocytes # (AUTO) 1.0-3.1 Normal (applies to non-num clementine results) [facility] Monocytes # (AUTO) 0.2-1.3 Normal (applies to non-numer ic results) [facility] Eosinophils# (AUTO) 0.0-0.5 Normal (applies to non-nume claudia results) [facility] Basophils # (AUTO) 0.0-0.1 Normal (applies to non-numer ic results) [facility] ID Date Data Source [id number] 04/16/2020 11:13:00 AM EDT [facility] Name Value Range Interpretation Code Description Data Kassy rce(s) Supporting Document(s) Respiratory specimen severe acute respir atory syndrome coronavirus 2 (SARS-CoV-2) RNA [facility] ital This lab was ordered by [facility] lola and reported by [facility]. ID Date Data Source [id number] 04/16/2020 03:13:00 PM EDT [facility] Name Value Range Interpretation Code Description Data Kassy rce(s) Supporting Document(s) Opiate Screen,Urine Negative Normal (applies to non-nume claudia results) [facility] Amphetamine Screen,Urine Negative Normal (applies to non -numeric results) [facility] Benzodiazepines Scrn,Ur result Negative N ormal (applies to non-numeric results) [facility] Cocaine Screen,Urine Negative Normal (applies to non-num clementine results) [facility] Methadone Screen,Urine Negative Normal (applies to non-n umeric results) [facility] Cannabinoid Screen, Ur Negative Normal (applies to non-n umeric results) [facility] Therapeutic Drug Ranges for Emergency an d Rehabilitation Threshold Levels (ng/mL) Cocaine 300 Opiates 300 Cannabinoids 50 Barbiturates 200 Benzodiazepine 200 Methadone 300 Amphetamines 1000 All positive find ings are presumptive and unconfirmed. Confirmation of positive results are performed only at request of provider. Unconfirmed results must not be used for non-medical purposes (i.e. pre-employment and legal purposes) ID Date Data Source [id number] 04/16/2020 02:00:00 PM EDT [facility] Name Value Range Interpretation Code Description Data Kassy rce(s) Supporting Document(s) Color,Urine Yellow Normal (applies to non-numeric resu lts) [facility] Clarity,Urine Clear Normal (applies to non-numeric re sults) [facility] Specific [place],Urine 1.001-1.030 Normal (applies to non- numeric results) [facility] PH,Urine 5.0-8.0 Normal (applies to non-numeric resul ts) [facility] Protein,Urine Negative Normal (applies to non-numeric re sults) [facility] Glucose,Urine (UA) Negative Normal (applies to non-numer ic results) [facility] Ketones,Urine Negative Normal (applies to non-numeric re sults) [facility] Blood,Urine Negative Normal (applies to non-numeric resu lts) [facility] Bilirubin,Urine Negative Normal (applies to non-numeric results) [facility] Urobilinogen,Urine Norm 0.2-1 Normal (applies to non-numer ic results) [facility] Leukocyte Esterase,Urine Negative Normal (applies to non -numeric results) [facility] Nitrite,Urine Negative Normal (applies to non-numeric re sults) [facility] ID Date Data Source [id number] 04/16/2020 02:00:00 PM EDT [facility] Name Value Range Interpretation Code Description Data Kassy rce(s) Supporting Document(s) Urine HCG Negative Normal (applies to non-numeric resul ts) [facility] ID Date Data Source [id number] 04/16/2020 11:13:00 AM EDT [facility] First test? [facility]NOW[facility]ed in [facility] re? UNKNOWNSymptomatic per CDC? UNKNOWNHospitalized? UNKNOWNICU? UNKNOWNResident in congregated care? [facility] [place] [facility] UNKNOWN? UNKNOWN Name Value Range Interpretation Code Description Data Kassy rce(s) Supporting Document(s) SARS-CoV-2 RNA Negative Normal (applies to non-numeric r esults) [facility] Negative results should be treated as pr [...] Certificate of Accreditation. Factsheets for healthcare providers: https://www.fda.gov/media/042961/download Factsheets for patients: https://www.fda.gov/media/979924/download THIS IS A STATE REPORTABLE COMMUNICABLE DISEASE. Manual entry verified by Jessika Villareal 04/16/20 1112 Procedure Social History Code Duration Value Status Description Data Source(s ) Smoking 04/14/2021 12:00:00 AM EDT Smoker, current status unkn own completed Smoker, current status unknown [facility] ([facility]) 09/15/2020 12:00:00 AM EST Heavy cigarette smoker (20- 39 cigs/day) completed Heavy cigarette smoker (20-39 cigs/day) [facility] ([facility]) Vital Signs ID Date Data Source UNK Name Value Range Interpretation Code Description Data Source(s) Diastolic blood pressure 73 mm[Hg] 73 mm[Hg] SUSI ([facility]) Systolic blood pressure 104 mm[Hg] 104 mm[Hg] A THENA ([facility]) Body weight 1920 [oz_av] 1920 [oz_av] SUSI ([facility]) Body height 154.94 cm 154.94 cm [facility] ([facility]) Body weight 59.239 kg 59.239 kg [facility] ([facility]) Systolic blood pressure 120 mm[Hg] 120 mm[Hg] N extGen ([facility]) Diastolic blood pressure 77 mm[Hg] 77 mm[Hg] [facility] ([facility]) Body mass index (BMI) [Ratio] 24.68 kg/m2 24.68 kg/m2 [facility] ([facility]) Body height 154.94 cm 154.94 cm [facility] ([facility] Body weight 58.967 kg 58.967 kg [facility] ([facility]) Body mass index (BMI) [Ratio] 24.56 kg/m2 24.56 kg/m2 [facility] ([facility]) ID Date Data Source [id number] 02/23/2021 10:02:00 AM EDT [facility] Name Value Range Interpretation Code Description Data Source(s) Weight (Calculated Kilograms) 55.34 55.34 [facility] Height (Calculated Centimeters) 154.94 154. 94 [facility] Body Mass Index (BMI) 23.0 23.0 [facility] ID Date Data Source [id number] 03/09/2021 03:19:00 PM EDT [facility] Name Value Range Interpretation Code Description Data Source(s) Weight Measurement Method 1 1 [facility] Weight (Calculated Kilograms) 55.34 55.34 [facility] Weight 2144 2144 [facility] Temperature Source 7 7 [facility] Temperature 96.4 96.4 [facility] Respiratory Effort 1 1 [facility] Respiratory Rate [address] [facility] Pulse Assessment Method 4 4 [facility] Pulse Rate 117 117 [facility] Height (Calculated Centimeters) 154.94 154. 94 [facility] Height 61 61 [facility] Blood Pressure 110/70 110/70 [facility] Body Mass Index (BMI) 23.0 23.0 [facility] Weight Measurement Method 1 1 [facility] Weight (Calculated Kilograms) 55.34 55.34 [facility] Weight 2144 2144 [facility] Temperature Source 7 7 [facility] Temperature 96.4 96.4 [facility] Respiratory Effort 1 1 [facility] Respiratory Rate [address] [facility] Pulse Assessment Method 4 4 [facility] Pulse Rate 117 117 [facility] Height (Calculated Centimeters) 154.94 154. 94 [facility] Height 61 61 [facility] Blood Pressure 110/70 110/70 [facility] Body Mass Index (BMI) 23.0 23.0 [facility] Weight Measurement Method 1 1 [facility] Weight (Calculated Kilograms) 55.34 55.34 [facility] Weight 2144 2144 [facility] Temperature Source 7 7 [facility] Temperature 96.4 96.4 [facility] Respiratory Effort 1 1 [facility] Respiratory Rate [address] [facility] Pulse Assessment Method 4 4 [facility] Pulse Rate 117 117 [facility] Height (Calculated Centimeters) 154.94 154. 94 [facility] Height 61 61 [facility] Blood Pressure 110/70 110/70 [facility] Body Mass Index (BMI) 23.0 23.0 [facility] Weight Measurement Method 1 1 [facility] Weight (Calculated Kilograms) 55.34 55.34 [facility] Weight 1983 1983 [facility] Temperature Source 7 7 [facility] Temperature 97.3 97.3 [facility] Respiratory Effort 1 1 [facility] Respiratory Rate [address] [facility] Pulse Assessment Method 4 4 [facility] Pulse Rate 69 69 [facility] Height (Calculated Centimeters) 154.94 154. 94 [facility] Height 61 61 [facility] Blood Pressure 112/79 112/79 [facility] Body Mass Index (BMI) 23.0 23.0 [facility] Weight Measurement Method 1 1 [facility] Weight (Calculated Kilograms) 55.34 55.34 [facility] Weight 1983 1983 [facility] Temperature Source 7 7 [facility] Temperature 97.1 97.1 [facility] Respiratory Effort 1 1 [facility] Respiratory Rate [address] [facility] Pulse Assessment Method 4 4 [facility] Pulse Rate 74 74 [facility] Height (Calculated Centimeters) 154.94 154. 94 [facility] Height 61 61 [facility] Blood Pressure 110/74 110/74 [facility] Body Mass Index (BMI) 23.0 23.0 [facility] Weight (Calculated Kilograms) 56.25 56.25 [facility] Height (Calculated Centimeters) 154.94 154. 94 [facility] Body Mass Index (BMI) 23.4 23.4 [facility] ID Date Data Source [id number] 05/07/2020 09:12:00 AM EDT [facility] Name Value Range Interpretation Code Description Data Source(s) Weight (Calculated Kilograms) 56.25 56.25 [facility] Height (Calculated Centimeters) 154.94 154. 94 [facility] Body Mass Index (BMI) 23.4 23.4 [facility] Weight (Calculated Kilograms) 56.25 56.25 [facility] Height (Calculated Centimeters) 154.94 154. 94 [facility] Body Mass Index (BMI) 23.4 23.4 [facility] Weight (Calculated Kilograms) 56.25 56.25 [facility] Height (Calculated Centimeters) 154.94 154. 94 [facility] Body Mass Index (BMI) 23.4 23.4 [facility] Weight (Calculated Kilograms) 56.25 56.25 [facility] Height (Calculated Centimeters) 154.94 154. 94 [facility] Body Mass Index (BMI) 23.4 23.4 [facility] ID Date Data Source [id number] 05/19/2020 05:30:00 AM EDT [facility] Name Value Range Interpretation Code Description Data Source(s) Weight Measurement Method 1 1 [facility] Weight (Calculated Kilograms) 56.25 56.25 [facility] Weight 2063 2063 [facility] Temperature Source 7 7 [facility] Temperature 97.5 97.5 [facility] Respiratory Effort 1 1 [facility] Respiratory Rate [address] [facility] Pulse Assessment Method 4 4 [facility] Pulse Rate 83 83 [facility] Height (Calculated Centimeters) 154.94 154. 94 [facility] Height 61 61 [facility] Blood Pressure 109/75 109/75 [facility] Body Mass Index (BMI) 23.4 23.4 [facility] Weight Measurement Method 1 1 [facility] Weight (Calculated Kilograms) 56.25 56.25 [facility] Weight 2063 2063 [facility] Temperature Source 7 7 [facility] Temperature 97.5 97.5 [facility] Respiratory Effort 1 1 [facility] Respiratory Rate [address] [facility] Pulse Assessment Method 4 4 [facility] Pulse Rate 83 83 [facility] Height (Calculated Centimeters) 154.94 154. 94 [facility] Height 61 61 [facility] Blood Pressure 109/75 109/75 [facility] Body Mass Index (BMI) 23.4 23.4 [facility] Weight Measurement Method 1 1 [facility] Weight (Calculated Kilograms) 56.25 56.25 [facility] Weight 2063 2063 [facility] Temperature Source 7 7 [facility] Temperature 97.5 97.5 [facility] Respiratory Effort 1 1 [facility] Respiratory Rate [address] [facility] Pulse Assessment Method 4 4 [facility] Pulse Rate 83 83 [facility] Height (Calculated Centimeters) 154.94 154. 94 [facility] Height 61 61 [facility] Blood Pressure 109/75 109/75 [facility] Body Mass Index (BMI) 23.4 23.4 [facility] Weight Measurement Method 1 1 [facility] Weight (Calculated Kilograms) 56.25 56.25 [facility] Weight 20634 [facility] Temperature Source 7 7 [facility] Temperature 97.5 97.5 [facility] Respiratory Effort 1 1 [facility] Respiratory Rate [address] [facility] Pulse Assessment Method 4 4 [facility] Pulse Rate 83 83 [facility] Height (Calculated Centimeters) 154.94 154. 94 [facility] Height 61 61 [facility] Blood Pressure 109/75 109/75 [facility] Body Mass Index (BMI) 23.4 23.4 [facility] Weight Measurement Method 1 1 [facility] Weight (Calculated Kilograms) 56.25 56.25 [facility] Weight 1983 1983 [facility] Temperature Source 7 7 [facility] Temperature 96.9 96.9 [facility] Respiratory Effort 1 1 [facility] Respiratory Rate [address] [facility] Pulse Assessment Method 4 4 [facility] Pulse Rate 90 90 [facility] Height (Calculated Centimeters) 154.94 154. 94 [facility] Height 61 61 [facility] Blood Pressure 104/67 104/67 [facility] Body Mass Index (BMI) 23.4 23.4 [facility] Weight Measurement Method 1 1 [facility] Weight (Calculated Kilograms) 56.25 56.25 [facility] Weight 1983 1983 [facility] Temperature Source 7 7 [facility] Temperature 97.8 97.8 [facility] Respiratory Effort 1 1 [facility] Respiratory Rate [address] [facility] Pulse Assessment Method 4 4 [facility] Pulse Rate 93 93 [facility] Height (Calculated Centimeters) 154.94 154. 94 [facility] Height 61 61 [facility] Blood Pressure 110/87 110/87 [facility] Body Mass Index (BMI) 23.4 23.4 [facility] Weight (Calculated Kilograms) 72.12 72.12 [facility] Height (Calculated Centimeters) 154.94 154. 94 [facility] Body Mass Index (BMI) 30.0 30.0 [facility] Patient Treatment Plan of Care Planned Activity Planned Date Details Description Data Source (s) Sertraline 50 MG Oral Tablet [Zoloft] 01/18/2021 12:00:00 AM [facility] Risperidone 3 MG Oral Tablet [Risperdal] 01/18/2021 12:00:00 AM [facility] Prazosin 2 MG Oral Capsule [Minipress] 01/18/2021 12:00:00 AM [facility] olanzapine 15 MG Oral Tablet 01/18/2021 12:00:00 AM [facility] Multi-Vit/Mineral (Multivitamin Tablet) 1 TAB TAB 01/18/2021 12: 00:00 AM [facility] Mirtazapine 15 MG Oral Tablet 01/18/2021 12:00:00 AM [facility] gabapentin 600 MG Oral Tablet 01/18/2021 12:00:00 AM [facility] doxycycline hyclate 100 MG Oral Tablet 01/18/2021 12:00:00 AM [facility] Docusate Sodium 100 MG Oral Capsule [Colace] 01/18/2021 12:00:00 AM [facility] Buprenorphine 8 MG / Naloxone 2 MG Oral Strip [Suboxon e] 01/18/2021 12:00:00 AM [facility] Metronidazole 500 MG Oral Tablet 09/22/2020 12:00:00 AM EST [facility] ([facility]) 168 HR Ethinyl Estradiol 0.13992 MG/HR / norelgestromin 0.68937 MG/HR Transdermal Patch [Xulane] 03/03/2020 12:00:00 AM EDT [facility] ([facility]) Trazodone Hydrochloride 100 MG Oral Tablet [facility] ([facility]) topiramate 50 MG Oral Tablet [facility] ([facility]) topiramate 25 MG Oral Tablet [facility] ([facility]) Sulfamethoxazole 800 MG / Trimethoprim 160 MG Oral Tablet [facility] ([facility]) Sertraline 50 MG Oral Tablet [facility] ([facility]) Sertraline 25 MG Oral Tablet [facility] ([facility]) Sertraline 100 MG Oral Tablet [facility] ([facility]) Risperidone 3 MG Oral Tablet [facility] ([facility]) Risperidone 2 MG Oral Tablet [facility] ([facility]) Prazosin 2 MG Oral Capsule A [facility] ([facility]) Prazosin 1 MG Oral Capsule A [facility] ([facility]) 24 HR paliperidone 6 MG Extended Release Oral Tablet [facility] ([facility]) 24 HR paliperidone 3 MG Extended Release Oral Tablet [facility] ([facility]) 24 HR Oxybutynin chloride 5 MG Extended Release Oral Tablet [facility] ([facility]) 24 HR Oxybutynin chloride 10 MG Extended Release Oral Tablet [facility] ([facility]) olanzapine 5 MG Oral Tablet [facility] ([facility]) olanzapine 5 MG Disintegrating Oral Tablet [facility] ([facility]) benztropine mesylate 1 MG Oral Tablet [facility] ([facility]) atomoxetine 40 MG Oral Capsule [facility] ([facility]) atomoxetine 10 MG Oral Capsule [facility] ([facility]) aripiprazole 2 MG Oral Tablet [facility] ([facility]) Amitriptyline Hydrochloride 25 MG Oral Tablet [facility] ([facility]) Sertraline 50 MG Oral Tablet [Zoloft] [facility]. Risperidone 3 MG Oral Tablet [Risperdal] [facility]. Prazosin 2 MG Oral Capsule [Minipress] [facility]. olanzapine [address] [facility] Mirtazapine 15 MG Oral Tablet [facility]. gabapentin [address] [facility] Docusate Sodium 100 MG Oral Capsule [Colace] [facility]. Buprenorphine 8 MG / Naloxone 2 MG Oral Strip [Suboxone] [facility] topiramate 50 MG Oral Tablet [Topamax] [facility] ([facility]) olanzapine 10 MG Oral Tablet [facility] ([facility]) Naproxen 500 MG Oral Tablet [facility] ([facility]) Mirtazapine 15 MG Oral Tablet [facility] ([facility]) Metronidazole 500 MG Oral Tablet [facility] ([facility]) Loratadine 10 MG Oral Tablet [facility] ([facility]) Levothyroxine Sodium 0.05 MG Oral Tablet [facility] ([facility]) Hydroxyzine Hydrochloride 50 MG Oral Tablet [facility] ([facility]) Hydroxyzine Hydrochloride 25 MG Oral Tablet [facility] ([facility]) Haloperidol 2 MG Oral Tablet [facility] ([facility]) Haloperidol 10 MG Oral Tablet [facility] ([facility]) gabapentin 400 MG Oral Capsule [facility] ([facility]) gabapentin 300 MG Oral Capsule [facility] ([facility]) 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 MG Oral Capsule [facility] ([facility]) Fluoxetine 10 MG Oral Capsule [facility] ([facility]) doxycycline hyclate 100 MG Oral Tablet [facility] ([facility]) Docusate Sodium 100 MG Oral Capsule [facility] ([facility]) Divalproex Sodium 500 MG Delayed Release Oral Tablet [facility] ([facility]) Divalproex Sodium 250 MG Delayed Release Oral Tablet [facility] ([facility]) Cephalexin 500 MG Oral Capsule [facility] ([facility]) buspirone hydrochloride 7.5 MG Oral Tablet [facility] ([facility])
[2021-05-19 21:37] LABS: AMPHETAMINES LEVEL URINE POSITIVE (NEGATIVE); BARBITURATES URINE NEGATIVE (NEGATIVE); BENZODIAZEPINES URINE NEGATIVE (NEGATIVE); CANNABINOIDS URINE NEGATIVE (NEGATIVE); COCAINE METABOLITE URINE NEGATIVE (NEGATIVE); METHADONE URINE NEGATIVE (NEGATIVE); OPIATES URINE POSITIVE (NEGATIVE); PHENCYCLIDINE URINE NEGATIVE (NEGATIVE)
[2021-05-19] MEDS ORDERED: SUBO8MIS SL (23:20)
[2021-05-19] MEDS ORDERED: GABA600T4 PO (23:20)
[2021-05-19] MEDS ORDERED: SUBO2MIS SL (23:21)
[2021-05-19] MEDS ORDERED: OXYB5TAB10 PO (23:21)
[2021-05-19] MEDS ORDERED: BUSP15TA47 PO (23:21)
[2021-05-19] MEDS ORDERED: ATOM60CA PO (23:21)
[2021-05-19] MEDS ORDERED: CEPH500C PO (23:21)
[2021-05-19] MEDS ORDERED: MUPI2OI EXT (23:21)
[2021-05-19] MEDS ORDERED: HOME MED LIST COMPLETE! XX SCH (23:25)
[2021-05-20] MEDS ORDERED: risperiDONE 1 MG TAB PO PRN (02:50)
[2021-05-20] MEDS ORDERED: MAALOX 30 ML SUSP *UDC PO PRN (02:50)
[2021-05-20] MEDS ORDERED: MOM 30ML SUSPENSION UDC PO PRN (02:50)
[2021-05-20] MEDS ORDERED: ACETAMINOPHEN TAB 650MG DOSE (2X325MG) PO PRN (02:50)
[2021-05-20 03:22] VITALS: BP 112/78
--- OUTSIDE RECORDS SUMMARY | 2021-05-20 03:34 | CCD ---
Author Author [facility] Organization [facility] Address Unknown Phone Unavailable Care Team Providers Care Superintendent Factory Name Role Phone Vicki Hanna MD Unavailable [...] Unavailable ABI SANCHEZ MD Unavailable Unavailable Green SALES AGENT PROTECTIVE SERVICE SALES AGENT PROTECTIVE SERVICE, Gina Unavailable Unavailable Green SALES AGENT PROTECTIVE SERVICE SALES AGENT PROTECTIVE SERVICE, Gnia Unavailable Unavailable Green SALES AGENT PROTECTIVE SERVICE SALES AGENT PROTECTIVE SERVICE, Gina Unavailable Unavailable Green SALES AGENT PROTECTIVE SERVICE SALES AGENT PROTECTIVE SERVICE, Gina Unavailable Unavailable Green SALES AGENT PROTECTIVE SERVICE SALES AGENT PROTECTIVE SERVICE, Gina Unavailable Unavailable Michael Castañeda MD Unavailable [...] Neli Figueroa MD Unavailable Unavailable Audi, Neli Fgiueroa MD Unavailable Unavailable Audi, Neli Figueroa MD Unavailable Unavailable ASAANNELISE Donis MD Unavailable Unavailable ASARANNELISE MD Unavailable Unavailable ASARANNELISE MD Unavailable Unavailable ASAR, ANNELISE BARON Unavailable Unavailable ASAR, ANNELISE BARON Unavailable Unavailable ASAR, ANNELISE BARON Unavailable Unavailable ASAR, ANNELISE BARON Unavailable Unavailable Vicki Hanna MD Unavailable Unavailable [...] Unavailable Unavailable Vicki Hanna MD Unavailable Unavailable Willard, R Eder PA Unavailable [...] Unavailable Unavailable Katherine Huntley MD Unavailable Unavailable Re-disclosure Warning The records [...] is protected by Article 27-F of the [facility] Public Health law. If you continue you may have access to information: Regarding HIV / AIDS; Provided by facilities licensed or operated by the [facility] Office of Mental Health; or Provided by the [facility] Office for People With Developmental Disabilities. If such information is present, then the following [facility] mandated warning applies: This information has [...] law may result in a fine or fpc sentence or both. A general authorization for the release of medical or other information is NOT sufficient authorization for further disc losure. Allergies and Adverse Reactions Type Description Substance Reaction Status Data Source(s ) Propensity to adverse reactions Propensity to adverse reacti ons No Known Drug Allergies [facility] . Drug allergy Drug allergy No Known Allergies [facility] Family History Family Member Name Family Member Gender Family Member Status Date o f Status Description Data Source(s) Unknown Male Diagnosis 01/22/2014 12:00:00 AM EDT [facility] ([facility]) Encounters Encounter Providers Location Date Indications Data Source(s ) Julito Hanna MD: [address] [place] [phone], Ph. Attender: Julito Hanna MD [facility] Medical 05/13/2021 12:00:00 AM EDT [facility] ([facility]) Attender: Carolina Huntley MD [facility] 0 04/14/2021 01:46:00 PM EDT - 04/14/2021 01:46:00 PM EDT [facility] ([facility]) Preadmit Attender: Dorie Huntley MD [facility] 0 02/23/2021 12:25:00 AM EDT - 02/23/2021 12:25:00 AM EDT [facility] Discharge cancelled. Disregard status an d discharged date. Inpatient Attender: Annelise Savage nder: ANNELISE GRAY MDAdmitter: ANNELISE GRAY MD [facility] 01/27/2021 01:41:00 PM EDT - 02/24/2021 10:00:00 AM EDT PSYCHOACTIVE SUBSTANCE DEPENDENCE [facility] PSYCHOACTIVE SUBSTANCE DEPENDENCE Patient discharged. Inpatient Attender: Kena Chowdhury DOAdmitter: Raul Chowdhury DO SURG-MED 01/14/2021 10:13:00 AM EDT - 01/18/2021 12:43:00 PM EDT [facility]. Patient discharged. Inpatient Attender: Kena Chowdhury DOAdmitter: Raul Chowdhury DO SURG-MED 01/14/2021 10:13:00 AM EDT - 01/18/2021 12:43:00 PM EDT [facility]. V Attender: Kena Chowdhury DOAdmitter: Raul Chowdhury DO SURG-MED 01/13/2021 05:23:00 PM EDT [facility] Patient admitted. Outpatient Attender: ABI SANCHEZ MD SURG-LAB 01/13/2021 04:01: 00 PM EDT [facility] Attender: Carolina Jimenez 0 11/03/2020 11:58:00 AM EDT - 11/03/2020 11:58:00 AM EDT [facility] ([facility]) Attender: Carolina Jimenez 0 10/15/2020 02:33:00 PM EDT - 10/15/2020 02:33:00 PM EDT [facility] ([facility]) Attender: Carolina Hernández 03:02:00 PM EDT - 10/13/2020 03:02:00 PM EDT [facility] ([facility]) Attender: Carolina Hernández 11/2020 01:36:00 PM EST - 10/03/2020 01:36:00 PM EST [facility] ([facility]) Attender: Carolina Jimenez 0 09/26/2020 10:53:00 AM EST - 09/26/2020 10:53:00 AM EST [facility] ([facility]) Attender: Gina France NP SALES AGENT PROTECTIVE SERVICE MARELY Hernández 0 09/25/2020 09:16:00 AM EST - 09/25/2020 09:16:00 AM EST Contact with and (suspected) exposure to viral hepatitisUnspecified viral hepatitis C without hepatic coma [facility] ([facility]) Contact with and (suspected) exposure to viral hepatitis Unspecified viral hepatitis C without he patic coma Attender: Gina France NP SALES AGENT PROTECTIVE SERVICE MARELY Hernández 0 09/22/2020 01:14:00 PM EST - 09/22/2020 01:14:00 PM EST Trichomonal vulvovaginitis [facility] ([facility]) Trichomonal vulvovaginitis OFFICE VISIT, ESTOutpatient Attender: Gina Román SALES AGENT PROTECTIVE SERVICE SALES AGENT PROTECTIVE SERVICE MARELY Hernández 09/15/2020 02:45:00 PM EST - [...] PM EST [facility] ([facility]) Attender: Latanya Hernández 04/2021 03:58:00 PM EST - 09/09/2020 03:58:00 PM EST [facility] ([facility]) Outpatient Attender: Julito Hanna MD 05/16/2020 04:01:01 PM EDT [facility] Outpatient Attender: Julito Hanna MD 05/16/2020 03:47:00 PM EDT [facility] Attender: Carolina Hernández 04:15:00 PM EDT - 04/30/2020 04:15:00 PM EDT [facility] ([facility]) Emergency Attender: Eder LANDA ttender: Tia Castañeda MDAttender: Tia Castañeda MD [facility] 04/30/2020 01:37:00 PM EDT - 04/30/2020 04:35:00 PM EDT ABDOMINAL PAIN [facility] ABDOMINAL PAIN Patient discharged. Outpatient Attender: Julito PASTRANA 04/23/2020 09:58:01 AM EDT [facility] Inpatient Attender: Annelise Savage nder: ANNELISE GRAY MDAdmitter: ANNELISE GRAY MDConsultant: ANNELISE GRAY MDConsultant: Annelise Gray MD [facility] 04/16/2020 10:19:00 AM EDT - 05/14/2020 11:45:00 AM EDT PSYCHOACTIVE SUBSTANCE DEPENDENCE [facility] PSYCHOACTIVE SUBSTANCE DEPENDENCE Patient discharged. Outpatient Attender: Julito Hanna MD 03/21/2020 07:21:01 AM EDT [facility] Outpatient Attender: Julito Hanna MD 03/20/2020 09:09:02 AM EDT [facility] Medications Medication Brand Name Start Date Product [...] DAILY DOSE = 2 FILMS SOLD: 04/30/2021 [facility] buspirone hydrochloride 15 MG Oral Tablet BUSPIRONE HCL 04/29/2021 12:00:00 AM EDT tablet 45 TAKE ONE TABLET BY MOUTH THR EE TIMES A DAY TAKE ONE TABLET BY MOUTH THREE TIMES A DAY SOLD: 04/30/2021 [facility] 2-0.5 mg 04/29/2021 12:00:00 AM EDT film [address] ONE FILM UNDER THE TONGUE EVERY MORNING MAXIMUM DAILY DOSE = [address] ONE FILM UNDER THE TONGUE EVERY MORNING MAXIMUM DAILY DOSE = 1 FILM SOLD: 04/30/2021 [facility] 60 mg 04/29/2021 12:00:00 AM EDT capsule 15 TAKE ONE CAPSULE BY MOUTH EVERY MORNING TAKE ONE CAPSULE BY MOUTH EVERY MORNING SOLD: 04/30/2021 [facility] olanzapine 15 MG Oral Tablet OLANZAPINE 04/29/2021 12:00:00 AM EDT tab let 15 TAKE ONE TABLET BY MOUTH EVERY MORNING TAKE ONE TABLET BY MOUTH EVERY MORNING SOLD: 04/30/2021 [facility] 4 mg 04/15/2021 12:00:00 AM EDT gum 50 TAKE ONE (1) EACH BY MOUTH EVERY THREE HOURS, NEEDED TAKE ONE (1) EACH BY MOUTH EVERY THREE HOURS, NEEDE D SOLD: 04/16/2021 [facility] olanzapine 10 MG Oral Tablet OLANZAPINE 04/15/2021 12:00:00 AM EDT tab let 22 TAKE ONE HALF (0.5) TABLET BY MOUTH EVERY IN THE MORNING AND ONE (1) TABLET AT BEDTIME TAKE ONE HALF (0.5) TABLET BY MOUTH EVER Y IN THE MORNING AND ONE (1) TABLET AT BEDTIME SOLD: 04/16/2021 [facility] buspirone hydrochloride 15 MG Oral Tablet BUSPIRONE HCL 04/15/2021 12:00:00 AM EDT tablet 45 TAKE ONE TABLET BY MOUTH THR EE TIMES A DAY TAKE ONE TABLET BY MOUTH THREE TIMES A DAY SOLD: 04/16/2021 [facility] 600 mg 04/15/2021 12:00:00 AM EDT [...] CAPSULE BY MOUTH AT BEDTIME SOLD: 03/16/2021 [facility] buspirone hydrochloride 15 MG Oral Tablet BUSPIRONE [...] 12:00:00 AM EDT 100 completed Twice Daily [facility]. doxycycline hyclate 100 MG Oral Tablet DOXYCYCLINE [...] E DT 200 completed Daily as needed [facility] olanzapine 15 MG Oral Tablet Olanzapine 15 MG TABLET Olanzap ine 15 MG TABLET 01/18/2021 12:00:00 AM EDT 15 completed At Bedtime [facility] 600 mg 01/18/2021 12:00:00 AM EDT [...] 12:00:00 AM EDT 50 completed At Bedtime [facility] Buprenorphine 8 MG / Naloxone 2 MG Oral Strip [Suboxone] Buprenorphine HCl/Naloxone HCl (Suboxone 8 MG-2 MG Sl Film) 1 EACH FILM Buprenorphine HCl/Naloxone HCl (Suboxone 8 MG-2 MG Sl Film) 1 EACH FILM 01/18/2021 12:00:00 AM EDT 8 completed Twice Daily [facility] 2 mg 01/18/2021 12:00:00 AM EDT capsule [...] 12:00:00 AM EDT 3 completed At Bedtime [facility] 50 mg 01/18/2021 12:00:00 AM EDT [...] 01/18/2021 12:00:00 AM EDT 1 completed Daily [facility] olanzapine 15 MG Oral Tablet OLANZAPINE 01/18/2021 12:00:00 AM EDT tab let 5 TAKE ONE TABLET BY MOUTH AT BEDTIME TAKE ONE TABLET BY MOUTH AT BEDTIME SOLD: 01/19/2021 [facility] Prazosin 2 MG Oral Capsule [Minipress] Prazosin HCl (M [facility]) 2 MG CAPSULE Prazosin HCl ([facility]) 2 MG CAPSULE 01/18/2021 12:00:00 AM EDT 2 completed At Bedtime [facility] gabapentin 600 MG Oral Tablet Gabapentin 600 MG TABLET Gabap entin 600 MG TABLET 01/18/2021 12:00:00 AM EDT 600 completed Three Times a Day [facility] Mirtazapine 15 MG Oral Tablet Mirtazapine 15 MG TABLET Christine zapine 15 MG TABLET 01/18/2021 12:00:00 AM EDT 15 completed At Bedtime [facility] 400 mcg 01/18/2021 12:00:00 AM EDT tablet 5 TAKE ONE TABLET BY MOUTH EVERY DAY TAKE ONE TABLET BY MOUTH EVERY DAY SOLD: 01/19/2021 [facility] 8-2 mg 01/13/2021 12:00:00 AM EDT [...] 1 (#4) [facility] ([facility]) 1 mg 09/22/2020 12:00:00 AM [...] CAPSULE BY MOUTH AT BEDTIME SOLD: 08/27/2020 [facility] 30 mg 08/26/2020 12:00:00 AM EST [...] DAILY DOSE = 2 FILMS LOT # [id number] PLACE ONE FILM UNDER THE TONGUE TWICE A DAY MAXIMUM DAILY DOSE = 2 FILMS LOT # [id number] SOLD: 07/24/2020 [facility] olanzapine 5 MG [...] AT BEDTIME FOR INSOMNIA SOLD : 07/14/2020 [facility] 234 mg/1.5 mL 06/10/2020 12:00:00 AM [...] BY MOUTH TWICE A DAY SOLD: 05/16/2020 [facility] Oxybutynin chloride 5 MG Oral Tablet OXYBUTYNIN CHLORIDE 01/2020 12:00:00 AM EDT tablet 60 TAKE ONE TABLET BY MOUTH TWI CE A DAY TAKE ONE TABLET BY MOUTH TWICE A DAY SOLD: 03/26/2020 [facility] 168 HR Ethinyl Estradiol 0.25383 MG/HR / norelgestromin 0.00896 MG/HR Transdermal Patch [Xulane] XULANE PATCH XULANE PATCH 03/03/2020 12:00:00 AM EDT completed 168 HR ethinyl estradiol 0.42379 MG/HR / norelgestromin 0.34364 MG/HR Transdermal System [Xulane] [facility] ([facility]) 5 mg 02/25/2020 12:00:00 AM EDT tablet extended release 24hr 30 TAKE ONE TABLET BY MOUTH EVERY DAY TAKE ONE TABLET BY MOUTH EVERY DAY SOLD: 05/16/2020 [facility] Hydroxyzine Hydrochloride 25 MG Oral Tab let hydroxyzine HCl 25 mg tablet TAKE ONE TABLET BY MOUTH THREE TIMES A DAY NEEDED hydroxyzine HCl 25 mg tablet TAKE ONE TABLET BY MOUTH THREE TIMES A DAY NEEDED completed hydroxyzine hydrochloride 25 MG Oral Tablet [facility]) Mirtazapine 15 MG Oral Tablet Mirtazapine 15 Mg Tablet Tablet, 15 Mg Oral Mirtazapine 15 Mg Tablet Tablet, 15 Mg Oral 15 completed At Bedtime [facility] Risperidone 3 MG Oral Tablet risperidone 3 mg tablet TAKE ONE TABLET BY MOUTH AT BEDTIME risperidone 3 mg tablet TAKE ONE TABLET BY MOUTH AT BEDTIME completed risperidone 3 MG Oral Tablet [facility]) Sertraline 50 MG Oral Tablet [Zoloft] Se rtraline Hcl 50 Mg Tablet Tablet, 50 Mg Oral Sertraline Hcl 50 Mg Tablet Tablet, 50 Mg Oral 50 completed At Bedtime [facility] Cephalexin 500 MG Oral Capsule cephalexi n 500 mg capsule TAKE ONE CAPSULE BY MOUTH THREE TIMES A DAY cephalexin 500 mg capsule TAKE ONE CAPSU LE BY MOUTH THREE TIMES A DAY completed ceph alexin 500 MG Oral Capsule [facility]) Risperidone 3 MG Oral Tablet [Risperdal] Risperidone (Risperdal) 3 Mg Tablet Tablet, 3 Mg Oral Risperidone (Risperdal) 3 Mg Tablet Tablet, 3 Mg Oral 3 completed At Bedtime [facility] buspirone hydrochloride 7.5 MG Oral Tabl et buspirone 7.5 mg tablet TAKE ONE TABLET BY MOUTH THREE TIMES A DAY buspirone 7.5 mg tablet TAKE ONE TABLET BY MOUTH THREE TIMES A DAY completed buspirone hydrochloride 7.5 MG Oral Tablet [facility] ([facility]) Metronidazole 500 MG Oral Tablet metroni dazole 500 mg tablet 500 MG BY MOUTH AT BEDTIME FOR INFECTION metronidazole 500 mg tablet 500 MG BY MO UTH AT BEDTIME FOR INFECTION completed metronidazo le 500 MG Oral Tablet [facility] ([facility]) Levothyroxine Sodium 0.05 MG Oral Tablet levothyroxine 50 mcg tablet TAKE ONE TABLET BY MOUTH EVERY DAY levothyroxine 50 mcg tablet TAKE ONE TAB LET BY MOUTH EVERY DAY completed levothyroxin e sodium 0.05 MG Oral Tablet [facility] ([facility]) olanzapine 15 MG Oral Tablet Olanzapine 15 Mg Tablet T ablet, 15 Mg Oral Olanzapine 15 Mg Tablet Tablet, 15 Mg Oral 15 completed At Bedtime [facility] atomoxetine 10 MG Oral Capsule atomoxeti ne 10 mg capsule TAKE TWO CAPSULES BY MOUTH EVERY DAY atomoxetine 10 mg capsule TAKE TWO CAPSULES BY MOUTH E VERY DAY completed atomoxetine 10 MG Oral Capsule [facility] ([facility]) Divalproex Sodium 500 MG Delayed Release Oral Tablet divalproex 500 mg tablet,delayed release TAKE ONE TABLET BY MOUTH TWICE A DAY divalproex 500 mg tablet,delayed release TAKE ONE TABLET BY MOUTH TWICE A DAY completed divalproex sodium 500 MG Delayed Release Oral Tablet [facility] ([facility]) Trazodone Hydrochloride 100 MG Oral Tabl et trazodone 100 mg tablet TAKE ONE TABLET BY MOUTH AT BEDTIME trazodone 100 mg tablet TAKE ONE TABLET BY MOUTH AT BEDTIME completed trazodone hydr ochloride 100 MG Oral Tablet [facility] ([facility]) Docusate Sodium 100 MG Oral Capsule docu sate sodium 100 mg capsule TAKE TWO CAPSULES BY MOUTH EVERY DAY NEEDED docusate sodium 100 mg capsule TAKE TWO CAPSULES BY MOUTH EVERY DAY NEEDED completed docusate sodium 100 MG Oral Capsule [facility]) 24 HR paliperidone 3 MG Extended Release Oral Tablet paliperidone ER 3 mg tablet,extended release 24 hr TAKE ONE TABLET BY MOUTH AT BEDTIME FOR ANTIPSYCHOTIC paliperidone ER 3 mg tablet,extended rel ease 24 hr TAKE ONE TABLET BY MOUTH AT BEDTIME FOR ANTIPSYCHOTIC completed 24 HR paliperidone 3 MG Extended Release Oral Tablet [facility] ([facility]) Haloperidol 2 MG Oral Tablet haloperidol 2 mg tablet TAKE TWO TABLETS BY MOUTH THREE TIMES A DAY 8AM 1PM. AND 9PM haloperidol 2 mg tablet TAKE TWO TABLETS BY MOUTH THREE TIMES A DAY 8AM 1PM. AND 9PM completed haloperidol 2 MG Oral Tablet [facility] ([facility]) benztropine mesylate 1 MG Oral Tablet be nztropine 1 mg tablet TAKE ONE TABLET BY MOUTH TWICE A DAY NEEDED benztropine 1 mg tablet TAKE ONE TABLET BY MOUTH TWICE A DAY NEEDED completed benztropine mesylate 1 MG Oral Tablet [facility] ([facility]) Amitriptyline Hydrochloride 25 MG Oral T ablet amitriptyline 25 mg tablet TAKE ONE TABLET BY MOUTH AT BEDTIME amitriptyline 25 mg tablet TAKE ONE TABL ET BY MOUTH AT BEDTIME completed amitriptyline hydrochloride 25 MG Oral Tablet [facility] ([facility]) Loratadine 10 MG Oral Tablet loratadine 10 mg tablet TAKE ONE TABLET BY MOUTH EVERY DAY loratadine 10 mg tablet TAKE ONE TABLET BY MOUTH EVERY DAY completed loratadine 10 MG Oral Tablet [facility] ([facility]) 24 HR paliperidone 6 MG Extended Release Oral Tablet paliperidone ER 6 mg tablet,extended release 24 hr TAKE ONE TABLET BY MOUTH EVERY MORNING paliperidone ER 6 mg tablet,extended release 24 hr TAKE ONE TABLET BY MOUTH EVERY MORNING completed 24 HR paliperidone 6 MG Extended Release Oral Tablet [facility] ([facility]) Buprenorphine 8 MG / Naloxone 2 MG Oral Strip [Suboxone] Buprenorphine Hcl/Naloxone Hcl (Suboxone 8 Mg-2 Mg Sl Film) 1 Each Film Film, 8 Mg Sublingual Buprenorphine Hcl/Naloxone Hcl (Suboxone 8 Mg-2 Mg Sl Film) 1 Each Film Film, 8 Mg Sublingual 8 completed Twice Da [facility]. atomoxetine 40 MG Oral Capsule atomoxeti ne 40 mg capsule TAKE ONE CAPSULE BY MOUTH EVERY DAY atomoxetine 40 mg capsule TAKE ONE CAPSULE BY MOUTH EVERY DA Y completed atomoxetine 40 MG Oral Capsule [facility] ([facility]) Risperidone 2 MG Oral Tablet risperidone 2 mg tablet TAKE ONE TABLET BY MOUTH AT BEDTIME risperidone 2 mg tablet TAKE ONE TABLET BY MOUTH AT BEDTIME completed risperidone 2 MG Oral Tablet [facility] ([facility]) Mirtazapine 15 MG Oral Tablet mirtazapine 15 mg tablet christine zapine 15 mg tablet completed mirtazapine 15 MG Oral Tablet [facility] ([facility]) 24 HR Oxybutynin chloride 5 MG Extended Release Oral Tablet oxybutynin chloride ER 5 mg tablet,extended release 24 hr TAKE ONE TABLET BY MOUTH EVERY DAY oxybutynin chloride ER 5 mg tablet,extended release 24 hr TAKE ONE TABLET BY MOUTH EVERY DAY completed 24 HR oxybutynin chloride 5 MG Extended Release Oral Tablet [facility] ([facility]) doxycycline hyclate 100 MG Oral Tablet d oxycycline hyclate 100 mg tablet TAKE ONE TABLET BY MOUTH TWICE A DAY doxycycline hyclate 100 mg tablet TAKE O NE TABLET BY MOUTH TWICE A DAY completed doxycycline hyclate 100 MG Oral Tablet [facility] ([facility]) gabapentin 300 MG Oral Capsule gabapenti n 300 mg capsule TAKE ONE CAPSULE BY MOUTH TWICE A DAY gabapentin 300 mg capsule TAKE ONE CAPSU LE BY MOUTH TWICE A DAY completed gabapentin 300 M G Oral Capsule [facility] ([facility]) olanzapine 10 MG Oral Tablet olanzapine 10 mg tablet TAKE ONE HALF 0.5 TABLET BY MOUTH EVERY IN THE MORNING AND ONE 1 TABLET AT BEDTIME olanzapine 10 mg tablet TAKE ONE HALF 0.5 TABLET BY MOUTH EVERY IN THE MORNING AND ONE 1 TABLET AT BEDTIME completed emy zapine 10 MG Oral Tablet [facility] ([facility]) Fluoxetine 10 MG Oral Capsule fluoxetine 10 mg capsule TAKE ONE CAPSULE BY MOUTH EVERY MORNING fluoxetine 10 mg capsule TAKE ONE CAPSULE BY MOUTH DILIA RY MORNING completed fluoxetine 10 MG Oral Capsule [facility] ([facility]) olanzapine 5 MG Oral Tablet olanzapine 5 mg tablet TAKE ONE TABLET BY MOUTH EVERY MORNING AT 8AM olanzapine 5 mg tablet TAKE ONE TABLET B Y MOUTH EVERY MORNING AT 8AM completed olanza pine 5 MG Oral Tablet [facility] ([facility]) Prazosin 1 MG Oral Capsule prazosin 1 mg capsule TAKE ONE CAPSULE BY MOUTH AT BEDTIME prazosin 1 mg capsule TAKE ONE CAPSULE BY MOUTH AT BEDTIME completed prazosin 1 MG Oral Capsule [facility] ([facility]) gabapentin 400 MG Oral Capsule gabapenti n 400 mg capsule TAKE ONE CAPSULE BY MOUTH FOUR TIMES A DAY gabapentin 400 mg capsule TAKE ONE CAPSU LE BY MOUTH FOUR TIMES A DAY completed gabapentin 400 MG Oral Capsule [facility] ([facility]) Sertraline 25 MG Oral Tablet sertraline 25 mg tablet TAKE ONE TABLET BY MOUTH EVERY MORNING sertraline 25 mg tablet TAKE ONE TABLET BY MOUTH EVERY MORNI NG completed sertraline 25 MG Oral Tablet [facility] ([facility]) olanzapine 5 MG Disintegrating Oral Tabl et olanzapine 5 mg disintegrating tablet DISSOLVE ONE TABLET UNDER THE TONGUE EVERY DAY NEEDED FOR ANXIETY AGITATIONS olanzapine 5 mg disintegrating tablet DI SSOLVE ONE TABLET UNDER THE TONGUE EVERY DAY NEEDED FOR ANXIETY AGITATIONS completed olanzapine 5 MG Disintegrating Oral Tablet [facility] ([facility]) Naproxen 500 MG Oral Tablet naproxen 500 mg tablet TAKE ONE TABLET BY MOUTH TWICE A DAY AT 6AM AND 6PM naproxen 500 mg tablet TAKE ONE TABLET B Y MOUTH TWICE A DAY AT 6AM AND 6PM completed naproxen 500 MG Oral Tablet [facility] ([facility]) Docusate Sodium 100 MG Oral Capsule [Col gopi] Docusate Sodium (Colace) 100 Mg Capsule Capsule, 100 Mg Oral Docusate Sodium (Colace) 100 Mg Capsule Capsule, 100 Mg Oral 100 completed Three Time s a Day as needed [facility]. Divalproex Sodium 250 MG Delayed Release Oral Tablet divalproex 250 mg tablet,delayed release TAKE ONE TABLET BY MOUTH TWICE A DAY divalproex 250 mg tablet,delayed release TAKE ONE TABLET BY MOUTH TWICE A DAY completed divalproex sodium 250 MG Delayed Release Oral Tablet [facility] ([facility]) topiramate 25 MG Oral Tablet topiramate 25 mg tablet TAKE TWO TABLETS BY MOUTH TWICE A DAY FOR HEADACHE topiramate 25 mg tablet TAKE TWO TABLETS BY MOUTH TWICE A DAY FOR HEADACHE completed to piramate 25 MG Oral Tablet [facility] ([facility]) Prazosin 2 MG Oral Capsule prazosin 2 mg capsule TAKE ONE CAPSULE BY MOUTH AT BEDTIME prazosin 2 mg capsule TAKE ONE CAPSULE BY MOUTH AT BEDTIME completed prazosin 2 MG Oral Capsule [facility] ([facility]) topiramate 50 MG Oral Tablet [Topamax] Topamax 50 mg t ablet Topamax 50 mg tablet completed topiramate 50 MG Oral Tablet [Topamax] [facility] ([facility]) Sertraline 100 MG Oral Tablet sertraline 100 mg tablet TAKE ONE TABLET BY MOUTH EVERY DAY sertraline 100 mg tablet TAKE ONE TABLET BY MOUTH EVERY DAY completed sertraline 100 MG Oral Table t [facility] ([facility]) gabapentin 600 MG Oral Tablet Gabapentin 600 Mg Tablet Tablet, 600 Mg Oral Gabapentin 600 Mg Tablet Tablet, 600 Mg Oral 600 completed Three Times a Day [facility] aripiprazole 2 MG Oral Tablet aripiprazo le 2 mg tablet TAKE ONE TABLET BY MOUTH EVERY MORNING aripiprazole 2 mg tablet TAKE ONE TABLET BY MOUTH EVERY MORN ING completed aripiprazole 2 MG Oral Tablet [facility] ([facility]) 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 MG Oral Capsule gabapenti n 100 mg capsule TAKE ONE CAPSULE BY MOUTH TWICE A DAY 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 mg capsule TAKE ONE CAPSU LE BY MOUTH TWICE A DAY completed 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 M G Oral Capsule [facility] ([facility]) Hydroxyzine Hydrochloride 50 MG Oral Tab let hydroxyzine HCl 50 mg tablet TAKE ONE TABLET BY MOUTH THREE TIMES A DAY NEEDED hydroxyzine HCl 50 mg tablet TAKE ONE TABLET BY MOUTH THREE TIMES A DAY NEEDED completed hydroxyzine hydrochloride 50 MG Oral Tablet [facility] ([facility]) Haloperidol 10 MG Oral Tablet haloperido l 10 mg tablet TAKE TWO TABLETS BY MOUTH TWICE A DAY NEEDED haloperidol 10 mg tablet TAKE TWO TABLET S BY MOUTH TWICE A DAY NEEDED completed halope ridol 10 MG Oral Tablet [facility]) 24 HR Oxybutynin chloride 10 MG Extended Release Oral Tablet oxybutynin chloride ER 10 mg tablet,extended release 24 hr TAKE ONE TABLET BY MOUTH EVERY DAY oxybutynin chloride ER 10 mg tablet,extended release 24 hr TAKE ONE TABLET BY MOUTH EVERY DAY completed 24 HR oxybutynin chloride 10 MG Extended Release Oral Tablet [facility] er) Prazosin 2 MG Oral Capsule [Minipress] P razosin Hcl (Minipress) 2 Mg Capsule Capsule, 2 Mg Oral Prazosin Hcl (Minipress) 2 Mg Capsule Capsule, 2 Mg Oral 2 completed At Bedtime [facility] Sulfamethoxazole 800 MG / Trimethoprim 1 60 MG Oral Tablet sulfamethoxazole 800 mg-trimethoprim 160 mg tablet TAKE ONE TABLET BY MOUTH TWICE A DAY sulfamethoxazole 800 mg-trimethoprim 160 mg tablet TAKE ONE TABLET BY MOUTH TWICE A DAY completed negron lfamethoxazole 800 MG / trimethoprim 160 MG Oral Tablet [facility]USI ([facility]) topiramate 50 MG Oral Tablet topiramate 50 mg tablet TAKE ONE TABLET BY MOUTH TWICE A DAY topiramate 50 mg tablet TAKE ONE TABLET BY MOUTH TWICE A DAY completed topiramate 50 MG Ora l Tablet SUSI ([facility]) Sertraline 50 MG Oral Tablet sertraline 50 mg tablet TAKE ONE TABLET BY MOUTH AT BEDTIME sertraline 50 mg tablet TAKE ONE TABLET BY MOUTH AT BEDTIME completed sertraline 50 MG Oral Tablet [facility] ([facility]) Insurance Providers Payer name Policy type / Coverage type Policy ID Covered constitution party ID Covered constitution party's relationship to bergeron Policy Bergeron Plan Information MEDICAID [id number] SELF [id number] [facility] [id number] Self [id number] Medicaid S [id number] S [id number] Managed Care - Community Plan [facility] P [id number] S [id number] Medicaid P [id number] S [id number] Medicaid P [id number] S [id number] Managed Care - [facility] Community Plan P [id number] S [id number] Managed Care - [facility] Community Plan P [id number] S [id number] MEDICAID [id number] SP [id number] [facility] DEPT [id number] SP [id number] [facility] MCDO [id number] SP [id number] [facility] MCDO [id number] SP [id number] [facility] [id number] SP [id number] [facility] [id number] SP [id number] [facility] BLUE [id number] SP [id number] Managed Care - [facility] Community Plan P [id number] S [id number] [place] 306/[phone] [id number] SP [id number] Managed Care BCBS P [id number] S [id number] [facility] Commercial [id number] Self [id number] SELF PAY ONLY [id number] SP [id number]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 MinutesDictated on 01/18/21 1326 by Kena Chowdhury, DOTranscribed on 01/18/21 1326 by Kena Chowdhury, DOSign by Kena Chowdhury DO on 01/18/21 1404Sign by: Kena Chowdhury DO Name Value Range Interpretation Code Description Data Kassy rce(s) Supporting Document(s) ID Date Data Source [id number] 01/17/2021 02:41:00 PM EDT [employer] Counselor Progress NotePatient NoteCOUNS LIZA SPOKE WITH [...] 01/22/21 WHEN HER BED IS OPEN AT [facility] REHAB. ALSO COUNSELOR SET UPTANSPORTATION FOR PATIENT SHE COULD NOT GET A RIDE HOME. SO HER RIDEWILL BE HERE TOMORROW AT 1:00 PM AFTER SHE IS DISCHARGED.Dictated on 01/17/21 1441 by Cherrie,TriciaTranscribed on 01/17/21 1441 by Cherrie,TriciaSign by CherrieNuzhat on 01/17/21 1446Sign by: Nuzhat Grier Name Value Range Interpretation Code Description Data Kassy rce(s) Supporting Document(s) ID Date Data Source [id number] 01/17/2021 11:27:00 AM EDT [employer] Counselor Progress NotePatient NoteDR. Katherine ELVIS IN TO TALK TO COUNSELOR ABOUT PATIENT AND HER BEING DISCHARGEDAND HER AFTER PLANS. COUNSELOR CALLED [facility] AND TALKED TOA ADJUSTER [employer]AN[employer] ABOUT PATIENT GOING THERE ONLY TO FIND OUT THAT IT'S A DETOXCENTER WELL. COUNSELOR HAD GONE TO TALK TO THE DR ABOUT [facility] TO LET HIM KNOW WHAT SHE HAD FOUND OUT. TOLD COUNSELOR THAT EVIE TALKED TO PATIENT ABOUT HER STAYING WITH HER STEPDAD UNTIL HER BEDWAS READY AT [facility] ON 01/22/21. SO COUNSELOR WENT [...] rce(s) Supporting Document(s) ID Date Data Source [id number] 01/17/2021 10:19:00 AM EDT [facility] Counselor Progress NotePatient NoteCOUNS ELOR WENT TO [...] rce(s) Supporting Document(s) ID Date Data Source [id number] 01/17/2021 06:53:00 AM EDT [facility] Provider Short NotePatient NoteCalled by RN that [...] rce(s) Supporting Document(s) ID Date Data Source [id number] 01/16/2021 03:24:00 PM EDT [facility] Counselor Progress NotePatient Dominic DE JESUS [...] rce(s) Supporting Document(s) ID Date Data Source [id number] 01/16/2021 02:08:00 PM EDT [facility] [employer] Counselor Progress NotePatient Dominic DE JESUS [...] rce(s) Supporting Document(s) ID Date Data Source [id number] 01/16/2021 02:04:00 PM EDT [facility] [employer] Counselor Progress NotePatient Dominic DE JESUS [...] rce(s) Supporting Document(s) ID Date Data Source [id number] 01/15/2021 04:16:00 PM EDT [employer] Counselor Progress NotePatient NoteCOUNS LIZA BLAS, [...] rce(s) Supporting Document(s) ID Date Data Source [id number] 01/15/2021 01:59:00 PM EDT [employer] Counselor Progress NotePatient Andrey HUGO [facility], CONFIRMED A 4 WEEK WAIT LIST FOR [facility].Dictated on 01/15/21 1359 by Sydnie BlasTranscribed on 01/15/21 1359 by Zach Blas by Sydnie Blas on 01/15/21 1400Sign by: Sydnie Blas Name Value Range Interpretation Code Description Data Kassy rce(s) Supporting Document(s) ID Date Data Source [id number] 01/15/2021 01:36:00 PM EDT [employer] Counselor Progress NotePatient NoteCONFI RMED BED AT [facility] 01/22/21 - ADMISSION TIME PENDING.Dictated on 01/15/21 1336 by Sydnie BlasTranscribed on 01/15/21 1336 by Sydnie BlasSign by Sydnie Blas on 01/15/21 1337Sign by: Sydnie Blas Name Value Range Interpretation Code Description Data Kassy rce(s) Supporting Document(s) ID Date Data Source [id number] 01/14/2021 03:22:00 PM EDT [employer] Counselor Progress NotePatient NoteCOUNS LIZA HAD [...] rce(s) Supporting Document(s) ID Date Data Source [id number] 01/14/2021 03:00:00 PM EDT [employer] Counselor Progress NotePatient NoteCOUNS LIZA WENT TO SEE IF PATIENT WAS UP TO DO EVALUATION AND SHE WASSLEEPING.Dictated on 01/14/21 1500 by Cherrie,TriciaTranscribed on 01/14/21 1500 by Cherrie,TriciaSign by Cherrie,Nuzhat on 01/14/21 1501Sign by: Cherrie,Nuzhat Name Value Range Interpretation Code Description Data Kassy rce(s) Supporting Document(s) ID Date Data Source [id number] 01/14/2021 01:44:00 PM EDT [employer] Counselor Progress NotePatient Dominic DE JESUS WENT INTO PATIENTS ROOM AT 12:30 TO DO THE EVALUATION, THEPATIENT WAS SLEEPING SO COUNSELOR HAD LEFT THE PATIENT TO SLEEP.COUNSELOR CAME BACK TO HER OFFICE AND REPORTED PATIENT STATUS TO ALFREDA.NURSING ADJUSTER [employer], SABINE PECK, WOKE THE PATIENT AND REQUESTED [...] rce(s) Supporting Document(s) ID Date Data Source [id number] 01/14/2021 09:26:00 AM EDT [employer] Counselor Progress NotePatient Dominic DE JESUS ALONG WITH ARNP WENT INTO PATIENTS ROOM AND ASKED HOW SHE WASDOING. PATIENT RESPONDED SHE WAS DOING OK. COUNSELOR INFORMED PATIENTTHAT SHE WAS HERE IF SHE NEEDED HER TO TALK OR ANYTHING.Dictated on 01/14/21 09 by Cherrie,TriciaTranscribed on 01/14/21925 by CherrieTriciaSign by Cherrie,Nuzhat on 01/14/21 0933Sign by: Cherrie,Nuzhat Name Value Range Interpretation Code Description Data Kassy rce(s) Supporting Document(s) ID Date Data Source [id number] 01/13/2021 04:10:00 PM EDT [facility] Name Value Range Interpretation Code Description Data Kassy rce(s) Supporting Document(s) SARS-CoV-2 (COVID-19) RNA [Presence] in Respiratory specimen by IRIS with probe detection Negative; No COVID-2 RNA detected by PCR. [place] This lab was ordered by [facility] and reported by . ID Date Data Source [id number] 12/08/2020 03:19:00 PM EDT [facility]) Name Value Range Interpretation Code Description Data Kassy rce(s) Supporting Document(s) influenza A amplification negative negative Influenza a Amplification [facility]) influenza B amplification negative negative Influenza B Amplification [facility]) RSV amplification negative negative RSV Amplification [facility]) sars covid-19 amplification negative negative Sars Cov id-19 Amplification [facility]) ID Date Data Source [id number] 12/08/2020 03:19:00 PM EDT [facility] Name Value Range Interpretation Code Description Data Kassy rce(s) Supporting Document(s) SARS coronavirus 2 RNA [Presence] in Res piratory specimen by IRIS with probe detection NEGATIVE [place] This lab was ordered by [facility] a nd reported by [facility]. ID Date Data Source [id number] 12/08/2020 09:19:00 AM EDT [facility]) Name Value Range Interpretation Code Description Data Kassy rce(s) Supporting Document(s) thyroid stimulating hormone 1.050 uIU/mL 0.358-3.740 Thyroid Stimulating Hormone [facility]) ID Date Data Source [id number] 12/08/2020 09:19:00 AM EDT [facility]) Name Value Range Interpretation Code Description Data Kassy rce(s) Supporting Document(s) acetaminophen level < 2.0 10.0-30.0 Below low normal Acetaminop hen Level [facility]) ID Date Data Source [id number] 12/08/2020 09:19:00 AM EDT [facility] ([facility]) Name Value Range Interpretation Code Description Data Kassy rce(s) Supporting Document(s) salicylate level 2.7 mg/dL 5.0-30.0 Below low normal Salicylate Le jose [facility] ([facility]) ID Date Data Source [id number] 12/08/2020 09:19:00 AM EDT [facility] ([facility]) Name Value Range Interpretation Code Description Data Kassy rce(s) Supporting Document(s) ethyl alcohol (ethanol) < 0.003 0.000-0.010 Ethyl Alcoh ol (Ethanol) [facility] ([facility]) ID Date Data Source [id number] 12/08/2020 09:19:00 AM EDT [facility]) Name Value Range Interpretation Code Description Data Kassy rce(s) Supporting Document(s) glucose, fasting 93 mg/dL 70-100 Glucose, Fasting AT [facility]) blood urea nitrogen 10 mg/dL 7-18 Blood Urea Nitro gen [facility] ([facility]) creatinine for GFR 0.61 mg/dL 0.55-1.30 Creatinine for GF R [facility] ([facility]) glomerular filtration rate > 60.0 >60 Glomerula r Filtration Rate [facility] ([facility]) sodium level 140 mEq/L 136-145 Sodium Level [facility] ([facility]) chloride level 111 mEq/L 98-107 Above high normal Chloride Level [facility] ([facility]) potassium serum 4.1 mEq/L 3.5-5.1 Potassium Serum ATH NA ([facility]) anion gap 7 mEq/L 8-16 Below low normal Anion Gap [facility] ( [facility]) calcium level 9.9 mg/dL 8.5-10.1 Calcium Level [facility] ( [facility]) carbon dioxide level 22 mEq/L 21-32 Carbon Dioxide Level [facility]) ID Date Data Source [id number] 12/08/2020 09:19:00 AM EDT [facility] ([facility]) Name Value Range Interpretation Code Description Data Kassy rce(s) Supporting Document(s) AST/SGOT 28 U/L 7-37 AST/SGOT [facility] ([facility]) alkaline phosphatase 90 U/L 45-117 Alkaline Phosph atase [facility] ([facility]) ALT/SGPT 26 U/L 12-78 ALT/SGPT [facility] ([facility]) bilirubin,total 0.3 mg/dL 0.2-1.0 Bilirubin,total AT[facility] ([facility]) bilirubin,direct < 0.1 0.0-0.2 Bilirubin,direct AT [facility] ([facility]) albumin 3.9 gm/dL 3.2-5.2 Albumin [facility] ([facility]) total protein 8.4 gm/dL 6.4-8.2 Above high normal Total Protein A [facility] ([facility]) albumin/globulin ratio 1.2-2.2 Below low normal Albumin /globulin Ratio [facility] ([facility]) ID Date Data Source [id number] 12/08/2020 09:19:00 AM EDT [facility] ([facility]) Name Value Range Interpretation Code Description Data Kassy rce(s) Supporting Document(s) white blood count 9.1 10 4.0-10.0 White Blood Count [facility] ([facility]) red blood count 4.31 10 4.00-5.40 Red Blood Count ATHE NA ([facility]) hemoglobin 12.8 g/dL 12.0-15.5 Hemoglobin [facility] ([facility]) hematocrit 39.2 % 36.0-47.0 Hematocrit [facility] ([facility]) mean corpuscular volume 91.0 fL 80.0-96.0 Mean Corpusc ular Volume [facility] ([facility]) mean corpuscular hemoglobin 29.7 pg 27.0-33.0 Mean Cor puscular Hemoglobin [facility] ([facility]) mean corpuscular HGB conc 32.7 g/dL 32.0-36.5 Mean Corpu scular HGB Conc [facility] ([facility]) platelet count, automated 276 10 150-450 Platelet C ount, Automated [facility] ([facility]) red cell distribution width 13.7 % 11.5-14.5 Red Cell Distribution Width [facility] ([facility]) nucleated red blood cell % 0.0 % 0-0 Nucleated Red Blood Cell % [facility] ([facility]) ID Date Data Source [id number] 12/08/2020 08:11:00 AM EDT [facility] ([facility]) Name Value Range Interpretation Code Description Data Kassy rce(s) Supporting Document(s) amphetamines level urine positive negative Above high andrea l Amphetamines Level Urine [facility] ([facility]) barbiturates urine negative negative Barbiturates Urin e [facility] ([facility]) benzodiazepines urine negative negative Benzodiazepine s Urine [facility] ([facility]) cannabinoids urine positive negative Above high normal Cannabinoi ds Urine [facility] ([facility]) cocaine metabolite urine negative negative Cocaine Met abolite Urine [facility] ([facility]) opiates urine negative negative Opiates Urine [facility] ( [facility]) methadone urine negative negative [facility] phencyclidine urine negative negative Phencyclidine Ur ine [facility] ([facility]) ID Date Data Source [id number] 12/07/2020 09:14:00 AM EDT [facility] ([facility]) Name Value Range Interpretation Code Description Data Kassy rce(s) Supporting Document(s) istat troponin 0.01 NG/mL 0.00-0.08 Istat Troponin [facility] ([facility]) ID Date Data Source [id number] 12/07/2020 09:12:00 AM EDT [facility]) Name Value Range Interpretation Code Description Data Kassy rce(s) Supporting Document(s) istat HCT 38.0 % 38.0-51.0 Istat HCT [facility] ([facility]) istat sodium 138 mEq/L 136-145 Istat Sodium [facility] ([facility]) istat glucose 111 mg/dL 70-105 Above high normal Istat Glucose A [facility] ([facility]) istat Ca++ 4.7 mg/dL 4.5-5.3 Istat Ca++ [facility] ([facility]) istat potassium 3.9 mEq/L 3.5-5.1 Istat Potassium ATHE NA ([facility]) istat CO2 23.0 mm/L 23.0-27.0 Istat CO2 [facility] ([facility]) istat chloride 105 mEq/L 98-109 Istat Chloride [facility] ([facility]) istat BUN 9 mg/dL 8-26 Istat BUN [facility] ([facility]) istat creatinine 0.6 mg/dL 0.6-1.3 Istat Creatinine AT [facility] ([facility]) ID Date Data Source [id number] 12/01/2020 03:02:00 AM EDT [facility] Name Value Range Interpretation Code Description Data Kassy rce(s) Supporting Document(s) SARS coronavirus 2 RNA [Presence] in Res piratory specimen by [facility] with probe detection NEGATIVE [place] This lab was ordered by [facility] a nd reported by [facility]. ID Date Data Source [id number] 09/15/2020 03:35:50 PM EST [facility] ([facility]) Name Value Range Interpretation Code Description Data Kassy rce(s) Supporting Document(s) Color: yellow; Glucose: nega tive; Blood: small; pH: 6.0; Protein: small; Nitrite: positive; Leukocytes: moderate Abnormal (appl ies to non-numeric results) Urine Dipstick [facility] ([facility]) ID Date Data Source [id number] 09/15/2020 03:35:12 PM EST [facility] ([facility]) Name Value Range Interpretation Code Description Data Kassy rce(s) Supporting Document(s) NegativeLot: [id number]: 03/31/2022 High Sensitivity Urine Test [facility] ([facility]) ID Date Data Source [id number] 06/02/2020 02:08:00 PM EST [facility] ([facility]) Name Value Range Interpretation Code Description Data Kassy rce(s) Supporting Document(s) alkaline phosphatase 75 U/L 45-117 Alkaline Phosph atase [facility] ([facility]) ALT/SGPT 74 U/L 12-78 ALT/SGPT [facility] ([facility]) AST/SGOT 58 U/L 7-37 Above high normal AST/SGOT [facility] ([facility]) total protein 7.7 gm/dL 6.4-8.2 Total Protein [facility] ( [facility]) bilirubin,total 0.4 mg/dL 0.2-1.0 Bilirubin,total AT[facility] ([facility]) bilirubin,direct 0.1 mg/dL 0.0-0.2 Bilirubin,direct AT [facility] ([facility]) albumin/globulin ratio 1.2-2.2 Below low normal Albumin /globulin Ratio [facility] ([facility]) albumin 3.7 gm/dL 3.2-5.2 Albumin [facility] ([facility]) ID Date Data Source [id number] 06/02/2020 02:08:00 PM EST [facility] ([facility]) Name Value Range Interpretation Code Description Data Kassy rce(s) Supporting Document(s) amphetamines level urine positive negative Above high andrea l Amphetamines Level Urine [facility] ([facility]) benzodiazepines urine negative negative Benzodiazepine s Urine [facility] ([facility]) barbiturates urine negative negative Barbiturates Urin e [facility] ([facility]) cannabinoids urine positive negative Above high normal Cannabinoi ds Urine SUSI ([facility]) cocaine metabolite urine negative negative Cocaine Met abolite Urine SUSI ([facility]) methadone urine positive negative Above high normal Methadone Uri ne SUSI ([facility]) phencyclidine urine negative negative Phencyclidine Ur ine SUSI ([facility]) opiates urine positive negative Above high normal Opiates Urine A LIANE ([facility]) ID Date Data Source [id number] 06/02/2020 02:08:00 PM EST SUSI ([facility]) Name Value Range Interpretation Code Description Data Kassy rce(s) Supporting Document(s) white blood count 5.8 10 4.0-10.0 White Blood Count [place]ED[place]GE ([facility]) red blood count 3.95 10 4.00-5.40 Below low normal Red Blood Coun t [place] ([facility]) hemoglobin 12.2 g/dL 12.0-15.5 Hemoglobin [place] ([facility]) mean corpuscular volume 94.2 fL 80.0-96.0 Mean Corpusc ular Volume [place] ([facility]) hematocrit 37.2 % 36.0-47.0 Hematocrit [place] ([facility]) mean corpuscular hemoglobin 30.9 pg 27.0-33.0 Mean Cor puscular Hemoglobin [facility] ([facility]) mean corpuscular HGB conc 32.8 g/dL 32.0-36.5 Mean Corpu scular HGB Conc [facility] ([facility]) red cell distribution width 12.8 % 11.5-14.5 Red Cell Distribution Width [facility] ([facility]) nucleated red blood cell % 0.0 % 0-0 Nucleated Red Blood Cell % [facility] ([facility]) platelet count, automated 195 10 150-450 Platelet C ount, Automated SUSI ([facility]) ID Date Data Source [id number] 06/02/2020 02:08:00 PM EST SUSI ([facility]) Name Value Range Interpretation Code Description Data Kassy rce(s) Supporting Document(s) HCG, serum qualitative negative negative HCG, Serum Qu alitative [place] ([facility]) ID Date Data Source [id number] 06/02/2020 02:08:00 PM EST SUSI ([facility]) Name Value Range Interpretation Code Description Data Kassy rce(s) Supporting Document(s) thyroid stimulating hormone 1.690 uIU/mL 0.358-3.740 Thyroid Stimulating Hormone SUSI ([facility]) ID Date Data Source [id number] 06/02/2020 02:08:00 PM EST SUSI ([facility]) Name Value Range Interpretation Code Description Data Kassy rce(s) Supporting Document(s) acetaminophen level < 2.0 10.0-30.0 Below low normal Acetaminop hen Level [facility]) ID Date Data Source [id number] 06/02/2020 02:08:00 PM EST SUSI ([facility]) Name Value Range Interpretation Code Description Data Kassy rce(s) Supporting Document(s) salicylate level < 1.7 5.0-30.0 Below low normal Salicylate Le jose SUSI ([facility]) ID Date Data Source [id number] 06/02/2020 02:08:00 PM EST SUSI ([facility]) Name Value Range Interpretation Code Description Data Kassy rce(s) Supporting Document(s) ethyl alcohol (ethanol) < 0.003 0.000-0.010 Ethyl Alcoh ol (Ethanol) SUSI ([facility]) ID Date Data Source [id number] 06/02/2020 02:08:00 PM EST SUSI ([facility]) Name Value Range Interpretation Code Description Data Kassy rce(s) Supporting Document(s) creatinine for GFR 0.71 mg/dL 0.55-1.30 Creatinine for GF R [facility] ([facility]) blood urea nitrogen 7 mg/dL 7-18 Blood Urea Nitro gen [facility] ([facility]) glucose, fasting 82 mg/dL 70-100 Glucose, Fasting AT JIM ([facility]) glomerular filtration rate > 60.0 >60 Glomerula r Filtration Rate SUSI ([facility]) sodium level 139 mEq/L 136-145 Sodium Level SUSI ([facility]) potassium serum 3.6 mEq/L 3.5-5.1 Potassium Serum ATHE NA ([facility]) anion gap 6 mEq/L 8-16 Below low normal Anion Gap SUSI ( [facility]) carbon dioxide level 24 mEq/L 21-32 Carbon Dioxide Level SUSI ([facility]) chloride level 109 mEq/L 98-107 Above high normal Chloride Level SUSI ([facility]) calcium level 8.8 mg/dL 8.5-10.1 Calcium Level [facility] ( [facility]) ID Date Data Source [id number] 06/01/2020 01:01:00 PM EST SUSI ([facility]) Name Value Range Interpretation Code Description Data Kassy rce(s) Supporting Document(s) amphetamines level urine positive negative Above high andrea l Amphetamines Level Urine SUSI ([facility]) cocaine metabolite urine positive negative Above high andrea l Cocaine Metabolite Urine SUSI ([facility]) cannabinoids urine positive negative Above high normal Cannabinoi ds Urine SUSI ([facility]) benzodiazepines urine negative negative Benzodiazepine s Urine SUSI ([facility]) barbiturates urine negative negative Barbiturates Urin e SUSI ([facility]) phencyclidine urine negative negative Phencyclidine Ur ine SUSI ([facility]) methadone urine positive negative Above high normal Methadone Uri ne SUSI ([facility]) opiates urine positive negative Above high normal Opiates Urine A THENA ([facility]) ID Date Data Source [id number] 06/01/2020 01:01:00 PM EST SUSI ([facility]) Name Value Range Interpretation Code Description Data Kassy rce(s) Supporting Document(s) HCG, serum qualitative negative negative HCG, Serum Qu alitative SUSI [facility]) ID Date Data Source [id number] 06/01/2020 01:01:00 PM EST SUSI ([facility]) Name Value Range Interpretation Code Description Data Kassy rce(s) Supporting Document(s) thyroid stimulating hormone 4.060 uIU/mL 0.358-3.740 Above high no rmal Thyroid Stimulating Hormone [facility] ([facility]) ID Date Data Source [id number] 06/01/2020 01:01:00 PM EST SUSI ([facility]) Name Value Range Interpretation Code Description Data Kassy rce(s) Supporting Document(s) acetaminophen level < 2.0 10.0-30.0 Below low normal Acetaminop hen Level [facility]) ID Date Data Source [id number] 06/01/2020 01:01:00 PM EST SUSI ([facility]) Name Value Range Interpretation Code Description Data Kassy rce(s) Supporting Document(s) salicylate level < 1.7 5.0-30.0 Below low normal Salicylate Le jose SUSI ([facility]) ID Date Data Source [id number] 06/01/2020 01:01:00 PM EST SUSI ([facility]) Name Value Range Interpretation Code Description Data Kassy rce(s) Supporting Document(s) ethyl alcohol (ethanol) < 0.003 0.000-0.010 Ethyl Alcoh ol (Ethanol) SUSI ([facility]) ID Date Data Source [id number] 06/01/2020 01:01:00 PM EST SUSI [facility]) Name Value Range Interpretation Code Description Data Kassy rce(s) Supporting Document(s) glucose, fasting 129 mg/dL 70-100 Above high normal Glucose, Fas ting [facility] ([facility]) blood urea nitrogen 12 mg/dL 7-18 Blood Urea Nitro gen [facility] ([facility]) creatinine for GFR 0.83 mg/dL 0.55-1.30 Creatinine for GF R SUSI ([facility]) sodium level 136 mEq/L 136-145 Sodium Level SUSI ([facility]) glomerular filtration rate > 60.0 >60 Glomerula r Filtration Rate SUSI ([facility]) potassium serum 3.6 mEq/L 3.5-5.1 Potassium Serum ATHE NA ([facility]) chloride level 103 mEq/L 98-107 Chloride Level SUSI ([facility]) carbon dioxide level 23 mEq/L 21-32 Carbon Dioxide Level SUSI ([facility]) anion gap 10 mEq/L 8-16 Anion Gap SUSI ([facility]) calcium level 8.8 mg/dL 8.5-10.1 Calcium Level SUSI ( [facility]) ID Date Data Source [id number] 06/01/2020 01:01:00 PM EST SUSI ([facility]) Name Value Range Interpretation Code Description Data Kassy rce(s) Supporting Document(s) AST/SGOT 61 U/L 7-37 Above high normal AST/SGOT SUSI ([facility]) ALT/SGPT 89 U/L 12-78 Above high normal ALT/SGPT SUSI ([facility]) alkaline phosphatase 80 U/L 45-117 Alkaline Phosph atase SUSI ([facility]) bilirubin,total 0.3 mg/dL 0.2-1.0 Bilirubin,total ATHE ([facility]) total protein 8.4 gm/dL 6.4-8.2 Above high normal Total Protein A THENA ([facility]) bilirubin,direct 0.1 mg/dL 0.0-0.2 Bilirubin,direct AT JIM ([facility]) albumin/globulin ratio 1.2-2.2 Below low normal Albumin /globulin Ratio SUSI ([facility]) albumin 4.2 gm/dL 3.2-5.2 Albumin SUSI ([facility]) ID Date Data Source [id number] 06/01/2020 01:01:00 PM EST SUSI ([facility]) Name Value Range Interpretation Code Description Data Kassy rce(s) Supporting Document(s) white blood count 5.6 10 4.0-10.0 White Blood Count SUSI ([facility]) red blood count 4.07 10 4.00-5.40 Red Blood Count ATHE NA ([facility]) hemoglobin 12.4 g/dL 12.0-15.5 Hemoglobin SUSI ([facility]) hematocrit 37.8 % 36.0-47.0 Hematocrit SUSI ([facility]) mean corpuscular hemoglobin 30.5 pg 27.0-33.0 Mean Cor puscular Hemoglobin SUSI ([facility]) mean corpuscular HGB conc 32.8 g/dL 32.0-36.5 Mean Corpu scular HGB Conc SUSI ([facility]) mean corpuscular volume 92.9 fL 80.0-96.0 Mean Corpusc ular Volume SUSI ([facility]) neutrophils % 39.6 % 36.0-66.0 Neutrophils % SUSI ( [facility]) red cell distribution width 12.8 % 11.5-14.5 Red Cell Distribution Width [place] ([facility]) platelet count, automated 205 10 150-450 Platelet C ount, Automated SUSI ([facility]) mono % 8.0 % 0.0-5.0 Above high normal [place] % SUSI ([facility]) lymph % 48.6 % 24.0-44.0 Above high normal Lymph % SUSI ([facility]) baso % 0.9 % 0.0-1.0 Baso % SUSI ([facility]) eos % 2.7 % 0.0-3.0 Eos % SUSI ([facility]) immature granulocyte % 0.2 % 0-3.0 Immature Gran ulocyte % SUSI ([facility]) nucleated red blood cell % 0.0 % 0-0 Nucleated Red Blood Cell % SUSI ([facility]) neutrophils # 2.2 10 1.5-8.5 Neutrophils # SUSI ( [facility]) lymph # 2.7 10 1.5-5.0 Lymph # SUSI ([facility]) mono # 0.5 10 0.0-0.8 [place] # SUSI ([facility]) eos # 0.2 10 0.0-0.5 Eos # SUSI ([facility]) baso # 0.1 10 0.0-0.2 Baso # SUSI ([facility]) ID Date Data Source [id number] 05/07/2020 09:44:[address] [facility] Name Value Range Interpretation Code Description Data Kassy rce(s) Supporting Document(s) Free T4 (Free Thyroxine) 0.76-1.46 Normal (applies to non -numeric results) [facility] ID Date Data Source [id number] 05/07/2020 09:44:[address] [facility] Name Value Range Interpretation Code Description Data Kassy rce(s) Supporting Document(s) Thyroid Stimulate Hormone TSH 0.358-3.740 Above high andrea l [facility] ID Date Data Source [id number] 04/30/2020 01:37:00 PM EDT [facility] Name: CELY SIMS [facility] Rec #: [id number] 14 : 1985 Age/Sex: 34F Date of Service: 04/30/20 DISPOSITION SUMMARY Discharge Summary [facility] Name:Cely Sims [facility] Age:34 yrs Sex:Female [...] Discharge Instruction: Discharge Summary Sheet, Constipation, Adult, Iera-bk-Mprl, Medication Reconciliation Name Value Range Interpretation Code Description Data Kassy rce(s) Supporting Document(s) ID Date Data Source [id number] 04/30/2020 01:37:00 PM EDT [facility] Name: CELY SIMS [facility] Rec #: [id number] 14 : 1985 Age/Sex: 34F Date of Service: 04/30/20 PHYSICIAN CHART Physician Documentation [facility] Name: Cely Sims Age: 34 yrs Sex: [...] a 34-year-old female with history of mental [facility] health disorders including schizophrenia, depression, anxiety, bipolar [...] fevers, headaches, chest pain, shortness of breath.. 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 ROS: 14:40 Constitutional: Negative for fever, chills, [...] screened. zrw1 16:03 Case presented to: Dr. Stehpen Woods. Data reviewed: vital zrw1 signs, nurses [...] rate of 83 zrw1 beats per minute. CA 168ms. QRS 94ms. QT 426. Normal axis. [...] 04/30 14:58 Order name: Urinalysis Auto w/Microscopy [facility] 04/30 14:58 Order name: Urine Culture [facility] 04/30 15:02 Order name: Emergency Room EKG [...] Discharge Summary Sheet zrw1 - Constipation, Adult, Wslg-lt-Zwbr zrw1 Forms: - Medication Reconciliation zrw1 Prescriptions: [...] rce(s) Supporting Document(s) ID Date Data Source [id number] 04/30/2020 01:37:00 PM EDT [facility] Name: CELY SIMS [facility] Rec #: [id number] 14 : 1985 Age/Sex: 34F Date of Service: 04/30/20 NURSE CHART Nurse's Notes [facility] Name: Cley Sims Age: 34 yrs Sex: Female : 1985 Arrival Date: 04/30/2020 Time: 13:37 Bed 8 Private MD: Rehab, Provider Diagnosis: Abdominal Pain, Unspecified;Constipation, unspecified Presentation: 04/30 13:38 Acuity: Urgent - 3 awr 13:56 Transition of care: patient was not received from another [facility] setting of care. Presenting complaint: Patient states - She has not had a BM in the last two days despite using suppositories.. Pt is currently at our rehab facility. Have you travelled in the last 30 days? Yes, Where have you travelled? From [place]. . Have you had contact with an [...] Abdomen is distended, The patient reports constipation. 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 Screenin:06 AUDIT 1. How often do you [...] obtained and reviewed by Stephen Woods MD. [facility] [place] 15:28 Cardiology EKG Interpretation - Choose Reason for Test Sent.[facility] [place] 16:18 Rehab, Provider is Referral Physician. zrw1 [...] rce(s) Supporting Document(s) ID Date Data Source [id number] 05/01/2020 09:27:00 AM EDT [facility] Name: CELY SIMS : 1985 A ge/Sex: 34F Ordering Provider: LEA White Med Rec #: [id number] Reg Status:DEP ER Room #: Date of Service: 04/30/20 Report Number: [id number] cc: PCP None; LEA White Send Report To: Reason for exam: ABDOMINAL PAIN SINUS RHYTHM POSSIBLE RIGHT VENTRICULAR CONDUCTION DELAY BORDERLINE ECG Compared to 04/18/2020 there is no significant change Physician Engineering Laboratory Technician: Serafin Daugherty M.D. ECG HEART RATE: 83 /min ECG RR INTERVAL: 716 ms ECG P DURATION: 119 ms ECG QRS DURATION: 94 ms ECG CA INTERVAL: 168 ms ECG QT INTERVAL: 426 ms ECG QTC INTERVAL: 466 ms Q-T dispersion: ms ECG P AXIS: 42 deg ECG QRS AXIS: 21 deg ECG T AXIS: 33 deg REPORT SIGNATURE ON FILE 05/01/20927 Reported By: Serafin Daugherty MD, [facility] <<Signature on File>> Exam Date/Time: 04/30/20 1523 Order #: [id number] Dictation Date/Time: 05/01/20926 Transcribed Date/Time: 05/01/20926 [employer]ating [employer] Gang Supervisor: LETICIA Name Value Range Interpretation Code Description Data Kassy rce(s) Supporting Document(s) ID Date Data Source [id number] 05/02/2020 10:45:00 AM EDT [facility] Name Value Range Interpretation Code Description Data Kassy rce(s) Supporting Document(s) Urine Culture Normal (applies to non-numeric re sults) [facility] ID Date Data Source [id number] 04/30/2020 03:21:[address] [facility] Name Value Range Interpretation Code Description Data Kassy rce(s) Supporting Document(s) Sodium 142 mmol/L 137-145 Normal (applies to non-numeric resul ts) [facility] Potassium 3.5-5.1 Normal (applies to non-numeric resul ts) [facility] Chloride 113 mmol/L 98-[address] [facility] Carbon Dioxide CO2 22.0-33.0 Normal (applies to non-numer ic results) [facility] Anion Gap 4.0-11.0 Normal (applies to non-numeric resul ts) [facility] BUN 17 mg/dL 7-17 Normal (applies to non-numeric resul ts) [facility] Creatinine 0.70-1.20 Normal (applies to non-numeric resul ts) [facility] GFR 85 mL/min >60 Normal (applies to non-numeric resul ts) [facility] Result based on MDRD formula. Glucose Level 85 mg/dL 74-99 Normal (applies to non-numeric re sults) [facility] The reference range is only applicable w hen fasting. Calcium-Uncorrected 8.4-10.2 Normal (applies to non-nume claudia results) [facility] Corrected Calcium 8.4-10.2 Normal (applies to non-numeri c results) [facility] Bilirubin,Total 0.2-1.3 Below low normal [facility] SGOT(AST) 37 U/L 14-36 Above high normal [facility] SGPT(ALT) 37 U/L 9-52 Normal (applies to non-numeric resul ts) [facility] Alkaline Phosphatase 81 U/L 38-126 Normal (applies to non-num clementine results) [facility] can increase Alkaline Phosp le vels up to 2 times the normal adult value. Normal values for children and adolescents are 2 to 3 times the normal adult value. Total Protein 6.3-8.2 Normal (applies to non-numeric re sults) [facility] Albumin 3.5-5.0 Normal (applies to non-numeric resul ts) [facility] ID Date Data Source [id number] 04/30/2020 03:21:[address] [facility] Name Value Range Interpretation Code Description Data Kassy rce(s) Supporting Document(s) C-Reactive Protein,Wide Range <3.00 Normal (applies t o non-numeric results) [facility] ID Date Data Source [id number] 04/30/2020 03:21:[address] [facility] Name Value Range Interpretation Code Description Data Kassy rce(s) Supporting Document(s) Lipase 85 U/L 73-393 Normal (applies to non-numeric resul ts) [facility] ID Date Data Source [id number] 04/30/2020 03:07:[address] [facility] Name Value Range Interpretation Code Description Data Kassy rce(s) Supporting Document(s) White Blood Count 4.8-10.8 Normal (applies to non-numeri c results) [facility] Red Blood Count 3.68-5.22 Normal (applies to non-numeric results) [facility] Hemoglobin 11.2-15.7 Normal (applies to non-numeric resul ts) [facility] Hematocrit 34.1-44.9 Normal (applies to non-numeric resul ts) [facility] Mean Corpuscular Volume 81-99 Normal (applies to non- numeric results) [facility] Mean Corpuscular Hemoglobin 27.0-33.0 Normal (appli es to non-numeric results) [facility] Mean Corpuscular HGB Conc 32.0-36.0 Normal (applies to no n-numeric results) [facility] Red Cell Distribution Width 11.5-14.5 Normal (appli es to non-numeric results) [facility] Platelet Count 240 X10 3/uL 130-450 Normal (applies to non-numeric results) [facility] Mean Platelet Volume 9.5-12.7 Normal (applies to non-num clementine results) [facility] Imm Grans% (AUTO) 0 % 0-2 Normal (applies to non-numeri c results) [facility] Neutrophils % (AUTO) 42 % 40-75 Normal (applies to non-num clementine results) [facility] Lymphocytes % (AUTO) 46 % 21-46 Normal (applies to non-num clementine results) [facility] Monocytes % (AUTO) 7 % 5-12 Normal (applies to non-numer ic results) [facility] Eosinophils % (AUTO) 3 % 1-5 Normal (applies to non-num clementine results) [facility] Basophils % (AUTO) 1 % 0-1 Normal (applies to non-numer ic results) [facility] Imm Grans# (AUTO) 0.0-0.5 Normal (applies to non-numeri c results) [facility] Neutrophils # (AUTO) 1.5-8.1 Normal (applies to non-num clementine results) [facility] Lymphocytes # (AUTO) 1.0-3.1 Above high normal [facility] Monocytes # (AUTO) 0.2-1.3 Normal (applies to non-numer ic results) [facility] Eosinophils# (AUTO) 0.0-0.5 Normal (applies to non-nume claudia results) [facility] Basophils # (AUTO) 0.0-0.1 Normal (applies to non-numer ic results) [facility] ID Date Data Source [id number] 04/30/2020 03:15:[address] [facility] Control Line Present? YPerformed by: Jewels Valles HCG Screen Result: NEGATIVE Name Value Range Interpretation Code Description Data Kassy rce(s) Supporting Document(s) POC ED Urine HCG NEGATIVE Normal (applies to non-numeric results) [facility] ID Date Data Source [id number] 04/30/2020 03:10:[address] [facility] Name Value Range Interpretation Code Description Data Kassy rce(s) Supporting Document(s) Color,Urine Yellow Normal (applies to non-numeric resu lts) [facility] Clarity,Urine Clear Normal (applies to non-numeric re sults) [facility] Specific Leslie,Urine 1.001-1.030 Normal (applies to non- numeric results) [facility] PH,Urine 4.6-8.0 Normal (applies to non-numeric resul ts) [facility] Protein,Urine Negative Normal (applies to non-numeric re sults) [facility] Glucose,Urine (UA) Negative Normal (applies to non-numer ic results) [facility] Ketones,Urine Negative Normal (applies to non-numeric re sults) [facility] Blood,Urine Negative Normal (applies to non-numeric resu lts) [facility] Bilirubin,Urine Negative Normal (applies to non-numeric results) [facility] Urobilinogen,Urine Norm 0.2-1 Normal (applies to non-numer ic results) [facility] Leukocyte Esterase,Urine Negative [facility] Nitrite,Urine Negative Normal (applies to non-numeric re sults) [facility] ID Date Data Source [id number] 04/30/2020 03:10:[address] [facility] Name Value Range Interpretation Code Description Data Kassy rce(s) Supporting Document(s) WBC,URINE 0-10 [facility] RBC,Urine 0-2 Normal (applies to non-numeric resul ts) [facility] Hyaline Casts,Ur None Seen Normal (applies to non-numeric results) [facility] Bacteria,Urine None Seen [facility] Epithelial Cell,Ur None-Few [facility]agat [facility] ID Date Data Source [id number] 05/01/2020 06:14:00 AM EDT [facility] Name: CELY SIMS : 1985 A ge/Sex: 34F Ordering Provider: LEA White Med Rec #: [id number] Reg Status: [facility]LY [facility] Room #: Date of Service: 04/30/20 Report Number: [id number] cc:PCP None Send Report To: [id number] CT/CT Abdomen & Pelvis w Con Reason [...] Date/Time: 04/30/20 1541 Transcribed Date/Time: 05/01/20 06 [employer] Supervisor: CHEL Name Value Range Interpretation Code Description Data Kassy rce(s) Supporting Document(s) ID Date Data Source [id number] 04/23/2020 09:55:[address] [facility] Name Value Range Interpretation Code Description Data Kassy rce(s) Supporting Document(s) Free T4 (Free Thyroxine) 0.76-1.46 Normal (applies to non -numeric results) [facility] ID Date Data Source [id number] 04/23/2020 09:55:[address] [facility] Name Value Range Interpretation Code Description Data Kassy rce(s) Supporting Document(s) Thyroid Stimulate Hormone TSH 0.358-3.740 Above high andrea l [facility] ID Date Data Source [id number] 04/18/2020 03:52:00 PM EDT [facility] Name: CELY SIMS : 1985 A ge/Sex: 34F Ordering Provider: Stephanie TATE Med Rec #: [id number] Reg Status:ADM IN Room #: 156-2 Date of Service: 04/18/20 Report Number: [id number] cc: Stephanie TATE; Annelise Gray MD Send Report To: Reason for exam: chest pain with cocaine SINUS RHYTHM POSSIBLE LEFT ATRIAL ENLARGEMENT POSSIBLE RIGHT VENTRICULAR CONDUCTION DELAY NONSPECIFIC T-WAVE ABNORMALITY [employer] Laboratory Technician: Dr. Ben Tillman M.D. ECG HEART RATE: 78 /min ECG RR INTERVAL: 765 ms ECG P DURATION: 115 ms ECG QRS DURATION: 90 ms ECG CA INTERVAL: 143 ms ECG QT INTERVAL: 426 ms ECG QTC INTERVAL: 457 ms Q-T dispersion: ms ECG P AXIS: 71 deg ECG QRS AXIS: 72 deg ECG T AXIS: 32 deg REPORT SIGNATURE ON FILE 04/18/201551 Reported By: Ben Tillman MD <<Signature on File>> Exam Date/Time: 04/18/20 0759 Order #: [id number] Dictation Date/Time: 04/18/201551 Transcribed Date/Time: 04/18/201551 [employer] Supervisor: LETICIA Name Value Range Interpretation Code Description Data Kassy rce(s) Supporting Document(s) ID Date Data Source [id number] 04/17/2020 11:39:00 AM EDT [facility] Value Range Interpretation Code Description Data Kassy rce(s) Supporting Document(s) Hep Bs Ag Result T-Test Nonreactive Normal (applies to non -numeric results) [facility] ID Date Data Source [id number] 04/17/2020 11:39:00 AM EDT [facility] Value Range Interpretation Code Description Data Kassy rce(s) Supporting Document(s) Syphilis Serology Nonreactive Normal (applies to non-numer ic results) [facility] ID Date Data Source [id number] 04/17/2020 11:39:00 AM EDT [facility] Value Range Interpretation Code Description Data Kassy rce(s) Supporting Document(s) HAVM Nonreactive Normal (applies to non-numeric resu lts) [facility] ID Date Data Source [id number] 04/17/2020 11:39:00 AM EDT [facility] Name Value Range Interpretation Code Description Data Kassy rce(s) Supporting Document(s) Vitamin D,Total (25OH) 30.0-100.0 Below low normal [facility] Reference Range: <10 ng/mL: Deficien t 10-30 ng/mL: Insufficient 30-100 ng/mL: Sufficient >100 ng/mL: Toxicity possible ID Date Data Source [id number] 04/17/2020 10:44:[address] [facility] Name Value Range Interpretation Code Description Data Kassy rce(s) Supporting Document(s) C-Reactive Protein,Wide Range <3.00 Normal (applies t o non-numeric results) [facility] ID Date Data Source [id number] 04/17/2020 10:44:00 AM [facility] Name Value Range Interpretation Code Description Data Kassy rce(s) Supporting Document(s) Magnesium 1.80-2.40 Normal (applies to non-numeric resul ts) [facility] ID Date Data Source [id number] 04/17/2020 10:44:00 AM [facility] Name Value Range Interpretation Code Description Data Kassy rce(s) Supporting Document(s) Sodium 137 mmol/L 137-145 Normal (applies to non-numeric resul ts) [facility] Potassium 3.5-5.1 Normal (applies to non-numeric resul ts) [facility] Chloride 110 mmol/L 98-112 Normal (applies to non-numeric resul ts) [facility] Carbon Dioxide CO2 22.0-33.0 Below low normal [facility] Anion Gap 4.0-11.0 Normal (applies to non-numeric resul ts) [facility] BUN 16 mg/dL 7-17 Normal (applies to non-numeric resul ts) [facility] Creatinine 0.70-1.20 Normal (applies to non-numeric resul ts) [facility] GFR 88 mL/min >60 Normal (applies to non-numeric resul ts) [facility] Result based on MDRD formula. Glucose Level 94 mg/dL 74-99 Normal (applies to non-numeric re sults) [facility] The reference range is only applicable w hen fasting. Calcium-Uncorrected 8.4-10.2 Normal (applies to non-nume claudia results) [facility] Corrected Calcium 8.4-10.2 Normal (applies to non-numeri c results) [facility] Bilirubin,Total 0.2-1.3 Normal (applies to non-numeric results) [facility] Bilirubin,Direct 0.0-0.3 Normal (applies to non-numeric results) [facility] SGOT(AST) 32 U/L 14-36 Normal (applies to non-numeric resul ts) [facility] SGPT(ALT) 35 U/L 9-52 Normal (applies to non-numeric resul ts) [facility] Alkaline Phosphatase 70 U/L 38-126 Normal (applies to non-num clementine results) [facility] can increase Alkaline Phosp le vels up to 2 times the normal adult value. Normal values for children and adolescents are 2 to 3 times the normal adult value. CPK 172 U/L 26-192 Normal (applies to non-numeric resul ts) [facility] Total Protein 6.3-8.2 Normal (applies to non-numeric re sults) [facility] Albumin 3.5-5.0 Normal (applies to non-numeric resul ts) [facility] Thyroid Stimulate Hormone TSH 0.358-3.740 Above high andrea l [facility] ID Date Data Source [id number] 04/17/2020 10:07:[address] [facility] Name Value Range Interpretation Code Description Data Kassy rce(s) Supporting Document(s) White Blood Count 4.8-10.8 Normal (applies to non-numeri c results) [facility] Red Blood Count 3.68-5.22 Normal (applies to non-numeric results) [facility] Hemoglobin 11.2-15.7 Normal (applies to non-numeric resul ts) [facility] Hematocrit 34.1-44.9 Below low normal [facility] Mean Corpuscular Volume 81-99 Normal (applies to non- numeric results) [facility] Mean Corpuscular Hemoglobin 27.0-33.0 Normal (appli es to non-numeric results) [facility] Mean Corpuscular HGB Conc 32.0-36.0 Normal (applies to no n-numeric results) [facility] Red Cell Distribution Width 11.5-14.5 Normal (appli es to non-numeric results) [facility] Platelet Count 197 X10 3/uL 130-450 Normal (applies to non-numeric results) [facility] Mean Platelet Volume 9.5-12.7 Normal (applies to non-num clementine results) [facility] Imm Grans% (AUTO) 0 % 0-2 Normal (applies to non-numeri c results) [facility] Neutrophils % (AUTO) 46 % 40-75 Normal (applies to non-num clementine results) [facility] Lymphocytes % (AUTO) 42 % 21-46 Normal (applies to non-num clementine results) [facility] Monocytes % (AUTO) 9 % 5-12 Normal (applies to non-numer ic results) [facility] Eosinophils % (AUTO) 3 % 1-5 Normal (applies to non-num clementine results) [facility] Basophils % (AUTO) 1 % 0-1 Normal (applies to non-numer ic results) [facility] Imm Grans# (AUTO) 0.0-0.5 Normal (applies to non-numeri c results) [facility] Neutrophils # (AUTO) 1.5-8.1 Normal (applies to non-num clementine results) [facility] Lymphocytes # (AUTO) 1.0-3.1 Normal (applies to non-num clementine results) [facility] Monocytes # (AUTO) 0.2-1.3 Normal (applies to non-numer ic results) [facility] Eosinophils# (AUTO) 0.0-0.5 Normal (applies to non-nume claudia results) [facility] Basophils # (AUTO) 0.0-0.1 Normal (applies to non-numer ic results) [facility] ID Date Data Source [id number] 04/16/2020 11:13:00 AM EDT [facility] Name Value Range Interpretation Code Description Data Kassy rce(s) Supporting Document(s) Respiratory specimen severe acute respir atory syndrome coronavirus 2 (SARS-CoV-2) RNA [facility] ital This lab was ordered by [facility] lola and reported by [facility]. ID Date Data Source [id number] 04/16/2020 03:13:[address] [facility] Name Value Range Interpretation Code Description Data Kassy rce(s) Supporting Document(s) Opiate Screen,Urine Negative Normal (applies to non-nume claudia results) [facility] Amphetamine Screen,Urine Negative Normal (applies to non -numeric results) [facility] Benzodiazepines Scrn,Ur result Negative N ormal (applies to non-numeric results) [facility] Cocaine Screen,Urine Negative Normal (applies to non-num clementine results) [facility] Methadone Screen,Urine Negative Normal (applies to non-n umeric results) [facility] Cannabinoid Screen, Ur Negative Normal (applies to non-n umeric results) [facility] Therapeutic Drug Ranges for Emergency an d Rehabilitation Threshold Levels (ng/mL) Cocaine 300 Opiates 300 Cannabinoids 50 Barbiturates 200 Benzodiazepine 200 Methadone 300 Amphetamines 1000 All positive find ings are presumptive and unconfirmed. Confirmation of positive results are performed only at request of provider. Unconfirmed results must not be used for non-medical purposes (i.e. pre-employment and legal purposes) ID Date Data Source [id number] 04/16/2020 02:00:[address] [facility] Name Value Range Interpretation Code Description Data Kassy rce(s) Supporting Document(s) Color,Urine Yellow Normal (applies to non-numeric resu lts) [facility] Clarity,Urine Clear Normal (applies to non-numeric re sults) [facility] Specific Leslie,Urine 1.001-1.030 Normal (applies to non- numeric results) [facility] PH,Urine 5.0-8.0 Normal (applies to non-numeric resul ts) [facility] Protein,Urine Negative Normal (applies to non-numeric re sults) [facility] Glucose,Urine (UA) Negative Normal (applies to non-numer ic results) [facility] Ketones,Urine Negative Normal (applies to non-numeric re sults) [facility] Blood,Urine Negative Normal (applies to non-numeric resu lts) [facility] Bilirubin,Urine Negative Normal (applies to non-numeric results) [facility] Urobilinogen,Urine Norm 0.2-1 Normal (applies to non-numer ic results) [facility] Leukocyte Esterase,Urine Negative Normal (applies to non -numeric results) [facility] Nitrite,Urine Negative Normal (applies to non-numeric re sults) [facility] ID Date Data Source [id number] 04/16/2020 02:00:[address] [facility] Name Value Range Interpretation Code Description Data Kassy rce(s) Supporting Document(s) Urine HCG Negative Normal (applies to non-numeric resul ts) [facility] ID Date Data Source [id number] 04/16/2020 11:13:[address] [facility] First test? [facility]ed [facility] re? UNKNOWNSymptomatic per CDC? UNKNOWNHospitalized? UNKNOWNICU? UNKNOWNResident in congregated care? ex retirement, [employer] UNKNOWN? UNKNOWN Name Value Range Interpretation Code Description Data Kassy rce(s) Supporting Document(s) SARS-CoV-2 RNA Negative Normal (applies to non-numeric r esults) [facility] Negative results should be treated as [...] Certificate of Accreditation. Factsheets for healthcare providers: https://www.fda.gov/media/946512/download Factsheets for patients: https://www.fda.gov/media/070336/download THIS IS A STATE REPORTABLE COMMUNICABLE DISEASE. [...] pressure 73 mm[Hg] 73 mm[Hg] SUSI ([facility]) Systolic blood pressure 104 mm[Hg] 104 mm[Hg] A THENA ([facility]) Body weight 1920 [oz_av] 1920 [oz_av] SUSI ([facility]) Body weight 59.239 kg 59.239 kg NextGen ([facility]) Body height 154.94 cm 154.94 cm [facility] ([facility]) Systolic blood pressure 120 mm[Hg] 120 mm[Hg] N extGen ([facility]) Diastolic blood pressure 77 mm[Hg] 77 mm[Hg] [facility] ([facility]) Body mass index (BMI) [Ratio] 24.68 kg/m2 24.68 kg/m2 [facility] ([facility]) Body height 154.94 cm 154.94 cm [facility] ([facility]) Body weight 58.967 kg 58.967 kg [facility] ([facility]) Body mass index (BMI) [Ratio] 24.56 kg/m2 24.56 kg/m2 [facility] ([facility]) ID Date Data Source [id number] 02/23/2021 10:02:00 AM EDT [facility] Name Value Range Interpretation Code Description Data Source(s) Weight (Calculated Kilograms) 55.34 55.34 [facility] Height (Calculated Centimeters) 154.94 154. 94 [facility] Body Mass Index (BMI) 23.0 23.0 [facility] ID Date Data Source [id number] 03/09/2021 03:19:00 PM EDT [facility] Name Value Range Interpretation Code Description Data Source(s) Weight Measurement Method 1 1 [facility] Weight (Calculated Kilograms) 55.34 55.34 [facility] Weight 2144 2144 [facility] Temperature Source 7 7 [facility] Temperature 96.4 96.4 [facility] Respiratory Effort 1 1 [facility] Respiratory Rate 16 16 [facility] Pulse Assessment Method 4 4 [facility] Pulse Rate 117 117 [facility] Height (Calculated Centimeters) 154.94 154. 94 [facility] Height 61 61 [facility] Blood Pressure 110/70 110/70 [facility] Body Mass Index (BMI) 23.0 23.0 [facility] Weight Measurement Method 1 1 [facility] Weight (Calculated Kilograms) 55.34 55.34 [facility] Weight 2144 2144 [facility] Temperature Source 7 7 [facility] Temperature 96.4 96.4 [facility] Respiratory Effort 1 1 [facility] Respiratory Rate 16 16 [facility] Pulse Assessment Method 4 4 [facility] Pulse Rate 117 117 [facility] Height (Calculated Centimeters) 154.94 154. 94 [facility] Height 61 61 [facility] Blood Pressure 110/70 110/70 [facility] Body Mass Index (BMI) 23.0 23.0 [facility] Weight Measurement Method 1 1 [facility] Weight (Calculated Kilograms) 55.34 55.34 [facility] Weight 2144 2144 [facility] Temperature Source 7 7 [facility] Temperature 96.4 96.4 [facility] Respiratory Effort 1 1 [facility] Respiratory Rate 16 16 [facility] Pulse Assessment Method 4 4 [facility] Pulse Rate 117 117 [facility] Height (Calculated Centimeters) 154.94 154. 94 [facility] Height 61 61 [facility] Blood Pressure 110/70 110/70 [facility] Body Mass Index (BMI) 23.0 23.0 [facility] Weight Measurement Method 1 1 [facility] Weight (Calculated Kilograms) 55.34 55.34 [facility] Weight 1983 1983 [facility] Temperature Source 7 7 [facility] Temperature 97.3 97.3 [facility] Respiratory Effort 1 1 [facility] Respiratory Rate 14 14 [facility] Pulse Assessment Method 4 4 [facility] Pulse Rate 69 69 [facility] Height (Calculated Centimeters) 154.94 154. 94 [facility] Height 61 61 [facility] Blood Pressure 112/79 112/79 [facility] Body Mass Index (BMI) 23.0 23.0 [facility] Weight Measurement Method 1 1 [facility] Weight (Calculated Kilograms) 55.34 55.34 [facility] Weight 1983 1983 [facility] Temperature Source 7 7 [facility] Temperature 97.1 97.1 [facility] Respiratory Effort 1 1 [facility] Respiratory Rate 16 16 [facility] Pulse Assessment Method 4 4 [facility] Pulse Rate 74 74 [facility] Height (Calculated Centimeters) 154.94 154. 94 [facility] Height 61 61 [facility] Blood Pressure 110/74 110/74 [facility] Body Mass Index (BMI) 23.0 23.0 [facility] Weight (Calculated Kilograms) 56.25 56.25 [facility] Height (Calculated Centimeters) 154.94 154. 94 [facility] Body Mass Index (BMI) 23.4 23.4 [facility] ID Date Data Source [id number] 05/07/2020 09:12:00 AM EDT [facility] Name Value Range Interpretation Code Description Data Source(s) Weight (Calculated Kilograms) 56.25 56.25 [facility] Height (Calculated Centimeters) 154.94 154. 94 [facility] Body Mass Index (BMI) 23.4 23.4 [facility] Weight (Calculated Kilograms) 56.25 56.25 [facility] Height (Calculated Centimeters) 154.94 154. 94 [facility] Body Mass Index (BMI) 23.4 23.4 [facility] Weight (Calculated Kilograms) 56.25 56.25 [facility] Height (Calculated Centimeters) 154.94 154. 94 [facility] Body Mass Index (BMI) 23.4 23.4 [facility] Weight (Calculated Kilograms) 56.25 56.25 [facility] Height (Calculated Centimeters) 154.94 154. 94 [facility] Body Mass Index (BMI) 23.4 23.4 [facility] ID Date Data Source [id number] 05/19/2020 05:30:00 AM EDT [facility] Name Value Range Interpretation Code Description Data Source(s) Weight Measurement Method 1 1 [facility] Weight (Calculated Kilograms) 56.25 56.25 [facility] Weight 2063 2063 [facility] Temperature Source 7 7 [facility] Temperature 97.5 97.5 [facility] Respiratory Effort 1 1 [facility] Respiratory Rate 15 15 [facility] Pulse Assessment Method 4 4 [facility] Pulse Rate 83 83 [facility] Height (Calculated Centimeters) 154.94 154. 94 [facility] Height 61 61 [facility] Blood Pressure 109/75 109/75 [facility] Body Mass Index (BMI) 23.4 23.4 [facility] Weight Measurement Method 1 1 [facility] Weight (Calculated Kilograms) 56.25 56.25 [facility] Weight 2063 2063 [facility] Temperature Source 7 7 [facility] Temperature 97.5 97.5 [facility] Respiratory Effort 1 1 [facility] Respiratory Rate 15 15 [facility] Pulse Assessment Method 4 4 [facility] Pulse Rate 83 83 [facility] Height (Calculated Centimeters) 154.94 154. 94 [facility] Height 61 61 [facility] Blood Pressure 109/75 109/75 [facility] Body Mass Index (BMI) 23.4 23.4 [facility] Weight Measurement Method 1 1 [facility] Weight (Calculated Kilograms) 56.25 56.25 [facility] Weight 2063 2063 [facility] Temperature Source 7 7 [facility] Temperature 97.5 97.5 [facility] Respiratory Effort 1 1 [facility] Respiratory Rate 15 15 [facility] Pulse Assessment Method 4 4 [facility] Pulse Rate 83 83 [facility] Height (Calculated Centimeters) 154.94 154. 94 [facility] Height 61 61 [facility] Blood Pressure 109/75 109/75 [facility] Body Mass Index (BMI) 23.4 23.4 [facility] Weight Measurement Method 1 1 [facility] Weight (Calculated Kilograms) 56.25 56.25 [facility] Weight 2063 2063 [facility] Temperature Source 7 7 [facility] Temperature 97.5 97.5 [facility] Respiratory Effort 1 1 [facility] Respiratory Rate 15 15 [facility] Pulse Assessment Method 4 4 [facility] Pulse Rate 83 83 [facility] Height (Calculated Centimeters) 154.94 154. 94 [facility] Height 61 61 [facility] Blood Pressure 109/75 109/75 [facility] Body Mass Index (BMI) 23.4 23.4 [facility] Weight Measurement Method 1 1 [facility] [facility] Weight (Calculated Kilograms) 56.25 56.25 [facility] Weight 1983 1983 [facility] Temperature Source 7 7 [facility] Temperature 96.9 96.9 [facility] Respiratory Effort 1 1 [facility] Respiratory Rate 15 15 [facility] Pulse Assessment Method 4 4 [facility] Pulse Rate 90 90 [facility] Height (Calculated Centimeters) 154.94 154. 94 [facility] Height 61 61 [facility] Blood Pressure 104/67 104/67 [facility] Body Mass Index (BMI) 23.4 23.4 [facility] Weight Measurement Method 1 1 [facility] Weight (Calculated Kilograms) 56.25 56.25 [facility] Weight 1983 1983 [facility] Temperature Source 7 7 [facility] Temperature 97.8 97.8 [facility] Respiratory Effort 1 1 [facility] Respiratory Rate 17 17 [facility] Pulse Assessment Method 4 4 [facility] Pulse Rate 93 93 [facility] Height (Calculated Centimeters) 154.94 154. 94 [facility] Height 61 61 [facility] Blood Pressure 110/87 110/87 [facility] Body Mass Index (BMI) 23.4 23.4 [facility] Weight (Calculated Kilograms) 72.12 72.12 [facility] Height (Calculated Centimeters) 154.94 154. 94 [facility] Body Mass Index (BMI) 30.0 30.0 [facility] Patient Treatment Plan of Care Planned Activity Planned Date Details Description Data Source (s) Sertraline 50 MG Oral Tablet [Zoloft] 01/18/[facility]21 12:[facility] Risperidone 3 MG Oral Tablet [Risperdal] 01/18/2021 12:00:00 [facility] Prazosin 2 MG Oral Capsule [Minipress] 01/18/2021 12:00:00 [facility] olanzapine 15 MG Oral Tablet 01/18/2021 12:00:00 [facility] Multi-Vit/Mineral (Multivitamin Tablet) 1 TAB TAB 01/18/2021 12: 00:00 [facility] Mirtazapine 15 MG Oral Tablet 01/18/2021 12:00:00 [facility] gabapentin 600 MG Oral Tablet 01/18/2021 12:00:00 [facility] doxycycline hyclate 100 MG Oral Tablet 01/18/2021 12:00:00 [facility] Docusate Sodium 100 MG Oral Capsule [Colace] 01/18/2021 12:00:00 [facility] Buprenorphine 8 MG / Naloxone 2 MG Oral Strip [Suboxon e] 01/18/2021 12:00:00 AM [facility] Metronidazole 500 MG Oral Tablet 09/22/2020 12:00:00 AM [facility] ([facility]) 168 HR Ethinyl Estradiol 0.99546 MG/HR / norelgestromin 0.75222 MG/HR Transdermal Patch [Xulane] 03/03/2020 12:00:00 AM EDT [facility] ([facility]) Trazodone Hydrochloride 100 MG Oral Tablet [facility] ([facility]) topiramate 50 MG Oral Tablet [facility] ([facility]) topiramate 25 MG Oral Tablet [facility] ([facility]) Sulfamethoxazole 800 MG / Trimethoprim 160 MG Oral Tablet [facility] ([facility]) Sertraline 50 MG Oral Tablet [facility] ([facility]) Sertraline 25 MG Oral Tablet [facility] ([facility]) Sertraline 100 MG Oral Tablet [facility] ([facility]) Risperidone 3 MG Oral Tablet [facility] ([facility]) Risperidone 2 MG Oral Tablet [facility] ([facility]) Prazosin 2 MG Oral Capsule A THE[facility] ([facility]) Prazosin 1 MG Oral Capsule A THENA ([facility]) 24 HR paliperidone 6 MG Extended Release Oral Tablet [facility] ([facility]) 24 HR paliperidone 3 MG Extended Release Oral Tablet [facility] ([facility]) 24 HR Oxybutynin chloride 5 MG Extended Release Oral Tablet [facility] ([facility]) 24 HR Oxybutynin chloride 10 MG Extended Release Oral Tablet [facility] ([facility]) olanzapine 5 MG Oral Tablet [facility] ([facility]) olanzapine 5 MG Disintegrating Oral Tablet [facility] ([facility]) benztropine mesylate 1 MG Oral Tablet [facility] ([facility]) atomoxetine 40 MG Oral Capsule [facility] ([facility]) atomoxetine 10 MG Oral Capsule [facility] ([facility]) aripiprazole 2 MG Oral Tablet [facility] ([facility]) Amitriptyline Hydrochloride 25 MG Oral Tablet [facility] ([facility]) Sertraline 50 MG Oral Tablet [Zoloft] [facility] Risperidone 3 MG Oral Tablet [Risperdal] [facility] Prazosin 2 MG Oral Capsule [Minipress] [facility] olanzapine 15 MG Oral Tablet [facility] Mirtazapine 15 MG Oral Tablet [facility] gabapentin 600 MG Oral Tablet [facility] Docusate Sodium 100 MG Oral Capsule [Colace] [facility] Buprenorphine 8 MG / Naloxone 2 MG Oral Strip [Suboxone] [facility] topiramate 50 MG Oral Tablet [Topamax] [facility] ([facility]) olanzapine 10 MG Oral Tablet [facility] ([facility]) Naproxen 500 MG Oral Tablet [facility] ([facility]) Mirtazapine 15 MG Oral Tablet [facility] ([facility]) Metronidazole 500 MG Oral Tablet [facility] ([facility]) Loratadine 10 MG Oral Tablet [facility] ([facility]) Levothyroxine Sodium 0.05 MG Oral Tablet [facility] ([facility]) Hydroxyzine Hydrochloride 50 MG Oral Tablet [facility] ([facility]) Hydroxyzine Hydrochloride 25 MG Oral Tablet [facility] ([facility]) Haloperidol 2 MG Oral Tablet [facility] ([facility]) Haloperidol 10 MG Oral Tablet [facility] ([facility]) gabapentin 400 MG Oral Capsule [facility] ([facility]) gabapentin 300 MG Oral Capsule [facility] ([facility]) 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 MG Oral Capsule [facility] ([facility]) Fluoxetine 10 MG Oral Capsule [facility] ([facility]) doxycycline hyclate 100 MG Oral Tablet [facility] ([facility]) Docusate Sodium 100 MG Oral Capsule [facility] ([facility]) Divalproex Sodium 500 MG Delayed Release Oral Tablet [facility] ([facility]) Divalproex Sodium 250 MG Delayed Release Oral Tablet [facility] ([facility]) Cephalexin 500 MG Oral Capsule [facility] ([facility]) buspirone hydrochloride 7.5 MG Oral Tablet [facility] ([facility])
[2021-05-20] MEDS: PRAZOSIN 1 MG CAP PO SCH ×2 (03:42→22:19)
[2021-05-20] MEDS: MIRTAZAPINE 15 MG TAB PO SCH ×2 (03:43→22:20)
[2021-05-20] MEDS ORDERED: ATOMOXETINE HCL 40 MG CAP (STRATTERA) PO SCH (09:00)
[2021-05-20] MEDS: GABAPENTIN 300 MG CAP PO SCH ×3 (09:58→22:20)
[2021-05-20] MEDS: DOCUSATE SODIUM 100MG CAPSULE PO SCH (09:58)
[2021-05-20] MEDS: oxyBUTYnin 5 MG TAB PO SCH ×2 (09:58→22:19)
[2021-05-20] MEDS: ATOMOXETINE HCL 40 MG CAP (STRATTERA) PO SCH (09:58)
[2021-05-20] MEDS: busPIRone 5 MG TAB PO SCH ×3 (09:58→22:19)
[2021-05-20] MEDS: TOPIRAMATE (TopAMAX) 100 MG TAB PO SCH (09:58)
[2021-05-20] MEDS: OLANZapine 5 MG TAB PO SCH (09:59)
[2021-05-20] MEDS: MUPIROCIN 2% OINT 22 GM TUBE EXT SCH ×2 (09:59→22:20)
--- NOTE | 2021-05-20 12:00 | HPEPDOC ---
[facility] Medical History & Physical Date of Admission May 19, 2021 Date of Service: May 20, 2021 History and Physical Chief complaint: Who presented the hospital with paranoid thoughts History of present illness: Patient is a 35-year-old female who presented to the hospital via police after she was having paranoid thoughts. Patient had reported someone was trying to kill her over the last few days. Patient had called 911 indicating that she was getting stabbed. Police arrested her and brought her to the hospital for further evaluation. Hospitalist service was consulted for medical screening evaluation. Currently patient denies any headache, nausea, vomiting, chest pain, shortness breath, cough, abdominal pain, diarrhea, constipation, or urinary discomfort. She denies any recent fevers or chills. Reports that her appetite is fairly normal and denies any changes in her weight. Past Medical History: Bipolar disorder / Depression / Anxiety / Schizoaffective disorder Seizure disorder Migraine headaches Past Surgical History: Hernia repair, umbilical 2 Allergies: See below Medications: See below Family History: - Father with a history of cirrhosis / Mother reported healthy Social History: - Denies the use of alcohol; Reports shes an active smoker, reports the use of Sylvie and heroin IV was recent was 2 days prior - Denies recent travel or sick contacts - Lives alone - Occupation; unemployed Review of Systems: 10 point review of systems complete, all negative otherwise stated in HPI Physical exam: - Vitals: BP [143/93], HR [104], RR [20], Sat [100%RA], Temp [97.0F] - General: Lying in bed, Speaking in full sentences, AAOx3 - HEENT: NC, AT, PERRLA - CVS: RRR, +S1S2, - Murmurs / rubs / gallops - Lungs: Fair air entry bilaterally, No appreciable wheezing / rales / rhonchi - Abdomen: Soft, Non-distended, Non-tender - Extremities: No lower extremity edema, No calf tenderness - Neuro: No focal motor or sensory deficit - Skin: right wrist with area of ulceration with mild erythema, no drainage / tenderness Labs: See below Imaging: See below EKG: See below Assessment and Plan: Paranoid thoughts - Hx of Bipolar disorder / Depression / Anxiety / Schizoaffective disorder - Patient has been admitted to the inpatient mental health unit under the care of psychiatry - Currently being managed by psychiatry Right wrist ulceration - Patient reports that she has a recent history of IV drug abuse - Remains hemodynamically stable and afebrile - No leukocytosis - Mild surrounding erythema, however, there is no drainage or tenderness - c/w bacitracin ointment - Will place advanced wound care consultation with Dr. 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 Hospitalist service will now sign off; please reconsult as needed Vital Signs Vital Signs Date Time Temp Pulse Resp B/P (MAP) Pulse Ox O2 Delivery O2 Flow Rate FiO2 05/20/21 03:22 97.7 110 16 112/78 (89) 98 Room Air Laboratory Data Labs 24H Laboratory Tests 2 05/19/21 19:05: Nucleated Red Blood Cells % (auto) 0.0, Anion Gap 6L, Glomerular Filtration Rate > 60.0, Calcium Level 8.9, Total Bilirubin 0.3, Direct Bilirubin 0.1, Aspartate Amino Transf (AST/SGOT) 32, Alanine Aminotransferase (ALT/SGPT) 52, Alkaline P hosphatase 102, Total Protein 8.1, Albumin 3.6, Albumin/Globulin Ratio 0.8L, Thyroid Stimulating Hormone (TSH) 1.110, Human Chorionic Gonadotropin, Qual NEGATIVE, Salicylates Level 3.1L, Acetaminophen Level < 2.0L, Ethyl Alcohol Level < 0.003 05/19/21 19:24: Urine Opiates Screen POSITIVEH, Urine Methadone Screen NEGATIVE, Urine Barbiturates Screen NEGATIVE, Urine Phencyclidine Screen NEGATIVE, Urine Amphetamines Screen POSITIVEH, Urine Benzodiazepines Screen NEGATIVE, Urine Cocaine Metabolite Screen NEGATIVE, Urine Cannabinoids Screen NEGATIVE 05/20/21 00:33: Coronavirus (COVID-19)(PCR) NEGATIVE CBC/BMP Laboratory Tests 05/19/21 19:05 Home Medications Scheduled Atomoxetine Hydrochloride (Strattera) 60 Mg Capsule, 60 MG PO DAILY Buprenorphine HCl/Naloxone HCl (Suboxone 8 mg-2 mg Sl Film) 1 Each Film, 1 STRIP SL BID Buprenorphine HCl/Naloxone HCl (Suboxone 2 mg-0.5 mg Sl Film) 1 Each Film, 1 STRIP SL QHS TAKES WITH 8MG FOR 10MG TOTAL AT QHS Buspirone HCl (Buspirone HCl) 15 Mg Tablet, 15 MG PO TID Cephalexin (Cephalexin) 500 Mg Capsule, 500 MG PO Q6H STARTED ON 05/13/21 Docusate Sodium (Docusate Sodium) 100 Mg Capsule, 100 MG PO DAILY Gabapentin (Gabapentin) 600 Mg Tablet, 600 MG PO TID Mirtazapine (Remeron) 15 Mg Tablet, 15 MG PO QHS Mupirocin (Mupirocin) 2 % Oint...g., 1 DOSE EXT BID STARTED ON 05/13/21, APPLY TO WOUND ON RIGHT ARM Olanzapine (Olanzapine) 15 Mg Tablet, 15 MG PO DAILY Oxybutynin Chloride (Oxybutynin Chloride) 5 Mg Tablet, 5 MG PO BID Prazosin Hcl (Prazosin HCl) 2 Mg Capsule, 2 MG PO QHS Topiramate (Topiramate) 100 Mg Tablet, 100 MG PO DAILY Scheduled PRN Nicotine Polacrilex (Nicotine Gum) 4 Mg Gum, 4 MG MT QID PRN for SMOKING C ESSATION Allergies Coded Allergies: No Known Allergies (Verified , 06/02/20) SUNG LEUNG MD May 20, 2021 12:00
--- NOTE | 2021-05-20 13:36 | ECGEPIP ---
[facility] - ED Test Date: 2021-05-19 Pat Name: BIGG SIMS Department: Room: [place] [address] Gender: Female Patient Registration Representative: ZHEN : 1985 Requested By: CHRISTOPH Cohen Order Number: [id number] Reading MD: Yessica Caal Measurements Intervals [place] Rate: 96 P: 53 [place]: 148 QRS: 27 QRSD: 80 T: 47 QT: 398 QTc: 502 Interpretive Statements Normal sinus rhythm NSTTW abnormalities prolonged qtc increased rate 12/14/20 Electronically Signed on 05-20-2021 13:36:51 EDT by Yessica Caal
--- NOTE | 2021-05-20 13:42 | MHHPEPDOC ---
General Date Of Admission: May 20, 2021 Legal Status: 9.39 Chief Complaint "People going to stab me" History of Present Illness HISTORY OF THE PRESENT ILLNESS: Patient is a 35 -year-old , female, who has a history of substance-induced psychosis, schizophrenia, polysubstance abuse, and multiple suicide attempts by overdose and presents with toxicology screen positive for amphetamines and opioids, presents by police after calling and saying she had been stabbed. Patient reports taking "Rock", prior to coming in, heroin 2 days ago. 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 Patient is withdrawn, lying calmly in bed, somnolent and poorly cooperative to interview, most of the information was pulled from charts and records. We will follow up further on subsequent days. Per PSA report: "Pt states that the police brought her to the ED because "people are trying to kill me." When asked who is trying to kill her she states "someone I know" but is unable to say specifically who. When asked why they are trying to kill her she states "they won't leave me alone." Pt states that people are drugging her & they stabbed her with a needle. She states that she called the police because someone stabbed her with a needle but "they took it as I said someone stabbed me with a knife so they arrested me." Pt denies both SI & HI. She denies any hx of suicide attempts or self-harm. However, per pt's EMR, she has had multiple OD's in the past & has a hx of cutting. Pt denies both AH & VH. She does not appear to be internally preoccupied. Pt denies depressed mood. She c/o anxiety & poor sleep. She reports that her concentration, energy levels, & appetite are good. Pt has a hx of schizoaffective d/o, PTSD, KEYA, antisocial personality d/o, borderline personality d/o, & substance abuse with multiple admissions. She has OP tx at [facility] & states she has been compliant with meds & tx. Pt denies alcohol use. She reports daily "rock" & heroin use. Her tox screen was positive for opiates & amphetamines." Past Psychiatric History Multiple past diagnosis of schizoaffective disorder, substance-induced psychosis, possible credo, multiple inpatient admissions at least 14 per chart review, multiple past suicide attempts by intentional overdose. Per chart review has been tried on amitriptyline BuSpar, gabapentin, Haldol, mirtazapine, sertraline, topiramate, prescribed buprenorphine which has not been confirmed with cradle and patient is in withdrawals. Takes gabapentin, nicotine patch, olanzapine, prazosin. . Past Medical History Medical Problems 2 sections, umbilical hernia, no head injury or seizure, multiple hospitalizations, surgeries Family Medical/Psychiatric HX Medical Problems Father's history schizophrenia, no other history, no history of suicide attempts in the family per chart review Addiction History other (Uses methamphetamine, bath salts, heroin IV, "rock") Social History Per chart review and interview:born and raised in [place], raised by her mother, single child. History of trauma, will not elaborate. Alone in the apartment, receives SSI. Has not completed high school. He is , 2 kids 15 and 20. Stepfather is her support person. Has served time in shelter, 1 year for possession and intent to sell drugs. Per chart review Mental Status Examination General Appearance: unkempt Build: thin Demeanor: other (Somnolent) Eye Contact: poor Activity: slowed Behavior: uncooperative, withdrawn Speech: slurred, slow, low in volume, impoverished Mood: depressed Affect: other (Somnolent) Thought Process: slow Thought Content (Delusions): none reported Thought Content (Other): none reported Thought Content (Aggressive): none reported Perception (Hallucinations): none reported Perception (Other): none reported Cognition (Impairment of): attention/concentration Cognition(Intelligence Est.): other (Unable to fully) Oriented: Alert (Somnolent) Insight: poor Judgment: Poor Psychosis: Denies Diagnoses Schizoaffective disorder per history Rule out substance-induced psychotic disorder Methamphetamine use disorder, severe Heroin use disorder, severe Tobacco use disorder Hallucinogen use disorder,"rock" A-FIB/CHADSVASC A-FIB History Current/History of A-Fib/PAF?: No Current PO Anticoag Therapy: No Age/Risk Factor Scoring CHADSVASC: CHADSVASC Response (Comments) Value Age Risk Factor Age < 65 years old 0 Gender Risk Factor Female 1 Hx of CHF No 0 Hx of HTN No 0 Hx of Stroke/TIA/or VTE No 0 Hx of Diabetes No 0 Hx of Vascular Disease No 0 Total 1 Treatment Treatment ordered: NONE Reason Anticoagulant not given: Other (Defer to hospitalist team) Other reason anticoagulant not: Defer to hospitalist team Assessment Patient presents after using drugs including "rock" and heroin IV 2 days ago, reports returning uses methamphetamine last use few weeks ago, patient was paranoid called police stating, but he was trying to stab her, has a history of schizoaffective disorder, substance-induced psychotic disorder and more than 14 admissions, multiple past suicide attempts by overdose. Patient restarted on home medications. Further evaluated tomorrow, he is in bed somnolent withdrawing from drugs. Positive for opiates and amphetamines on urine toxico logy. Initial Treatment Plan 1. Patient was admitted on a [9.39] status. 2. Complete history was obtained. 3. With patients permission, family will be contacted and database will be expanded. 4. Patients medication regimen will be reviewed and changed accordingly. 5. Patient will be provided with protected environment. 6. Patient will be treated with individual, group, and milieu therapies. 7. Patient will receive supportive psych-education. 8. Discharge planning will commence immediately. 9. Outpatient follow-up treatment will be strongly recommended. 10. The initial treatment plan will focus initially on: * Depression. * Risk for suicide. ESTIMATED LENGTH OF STAY: 2-7 DAYS. TIME SPENT COUNSELING AND COORDINATING INITIAL CARE: 40 minutes. Tobacco Cessation Screen If Patient is a Smoker yes Tobacco Cessation Tx Ordered?: Yes Incomplete r/t Pt cond. Vital Signs Vital Signs Date Time Temp Pulse Resp B/P (MAP) Pulse Ox O2 Delivery O2 Flow Rate FiO2 05/20/21 03:22 97.7 110 16 112/78 (89) 98 Room Air Laboratory Data 24H Labs Laboratory Tests 2 05/19/21 19:05: Nucleated Red Blood Cells % (auto) 0.0, Anion Gap 6L, Glomerular Filtration Rate > 60.0, Calcium Level 8.9, Total Bilirubin 0.3, Direct Bilirubin 0.1, Aspartate Amino Transf (AST/SGOT) 32, Alanine Aminotransferase (ALT/SGPT) 52, Alkaline Phosphatase 102, Total Protein 8.1, Albumin 3.6, Albumin/Globulin Ratio 0.8L, Thyroid Stimulating Hormone (TSH) 1.110, Human Chorionic Gonadotropin, Qual NEGATIVE, Salicylates Level 3.1L, Acetaminophen Level < 2.0L, Ethyl Alcohol Level < 0.003 05/19/21 19:24: Urine Opiates Screen POSITIVEH, Urine Methadone Screen NEGATIVE, Urine Barbiturates Screen NEGATIVE, Urine Phencyclidine Screen NEGATIVE, Urine Amphetamines Screen POSITIVEH, Urine Benzodiazepines Screen NEGATIVE, Urine Cocaine Metabolite Screen NEGATIVE, Urine Cannabinoids Screen NEGATIVE 05/20/21 00:33: Coronavirus (COVID-19)(PCR) NEGATIVE CBC/BMP Laboratory Tests 05/19/21 19:05 Medications Scheduled Atomoxetine Hydrochloride (Strattera) 60 Mg Capsule, 60 MG PO DAILY, (Reported) Buprenorphine HCl/Naloxone HCl (Suboxone 8 mg-2 mg Sl Film) 1 Each Film, 1 STRIP SL BID, (Reported) Buprenorphine HCl/Naloxone HCl (Suboxone 2 mg-0.5 mg Sl Film) 1 Each Film, 1 STRIP SL QHS, (Reported) TAKES WITH 8MG FOR 10MG TOTAL AT QHS Buspirone HCl (Buspirone HCl) 15 Mg Tablet, 15 MG PO TID, (Reported) Cephalexin (Cephalexin) 500 Mg Capsule, 500 MG PO Q6H, (Reported) STARTED ON 05/13/21 Docusate Sodium (Docusate Sodium) 100 Mg Capsule, 100 MG PO DAILY, (Reported) Gabapentin (Gabapentin) 600 Mg Tablet, 600 MG PO TID, (Reported) Mirtazapine (Remeron) 15 Mg Tablet, 15 MG PO QHS, (Reported) Mupirocin (Mupirocin) 2 % Oint...g., 1 DOSE EXT BID, (Reported) STARTED ON 05/13/21, APPLY TO WOUND ON RIGHT ARM Olanzapine (Olanzapine) 15 Mg Tablet, 15 MG PO DAILY, (Reported) Oxybutynin Chloride (Oxybutynin Chloride) 5 Mg Tablet, 5 MG PO BID, (Reported) Prazosin Hcl (Prazosin HCl) 2 Mg Capsule, 2 MG PO QHS, (Reported) Topiramate (Topiramate) 100 Mg Tablet, 100 MG PO DAILY, (Reported) Scheduled PRN Nicotine Polacrilex (Nicotine Gum) 4 Mg Gum, 4 MG MT QID PRN for SMOKING CESSATION, (Reported) Allergies Coded Allergies: No Known Allergies (Verified , 06/02/20) BRANDI ESTES MD May 20, 2021 13:42
[2021-05-20] MEDS ORDERED: hydrOXYzine 50 MG TAB PO PRN (15:45)
[2021-05-20 17:35] VITALS: BP 120/72
[2021-05-20] MEDS: BUPRENORPHINE/NALOXONE 8-2MG SUBLINGUAL TABLET(SUBOXONE) SL SCH (22:20)
[2021-05-21] MEDS: GABAPENTIN 300 MG CAP PO SCH ×3 (08:25→21:00)
[2021-05-21] MEDS: ATOMOXETINE HCL 40 MG CAP (STRATTERA) PO SCH (08:25)
[2021-05-21] MEDS: TOPIRAMATE (TopAMAX) 100 MG TAB PO SCH (08:25)
[2021-05-21] MEDS: OLANZapine 5 MG TAB PO SCH (08:25)
[2021-05-21] MEDS: DOCUSATE SODIUM 100MG CAPSULE PO SCH (08:26)
[2021-05-21] MEDS: oxyBUTYnin 5 MG TAB PO SCH ×2 (08:26→21:00)
[2021-05-21] MEDS: busPIRone 5 MG TAB PO SCH ×3 (08:26→21:00)
[2021-05-21] MEDS: BUPRENORPHINE/NALOXONE 2-0.5MG SUBLINGUAL TABLET(SUBOXONE) SL SCH (08:30)
[2021-05-21] MEDS: BUPRENORPHINE/NALOXONE 8-2MG SUBLINGUAL TABLET(SUBOXONE) SL SCH ×2 (08:30→15:16)
[2021-05-21] MEDS ORDERED: FLUoxetine 10 MG CAP PO SCH (09:00)
[2021-05-21] MEDS: MUPIROCIN 2% OINT 22 GM TUBE EXT SCH ×2 (09:00→21:00)
[2021-05-21] MEDS ORDERED: NICOTINE 21MG/24HR 1 EA TRANSDERMAL TD SCH (09:00)
[2021-05-21] MEDS: ARIPiprazole 10 MG TAB PO SCH (09:38)
[2021-05-21] MEDS ORDERED: NICOTINE POLACRILEX 2 MG GUM PO PRN (09:45)
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
[2021-05-21 17:54] VITALS: BP 115/67
[2021-05-21] MEDS: PRAZOSIN 1 MG CAP PO SCH (21:00)
[2021-05-21] MEDS: MIRTAZAPINE 15 MG TAB PO SCH (21:00)
[2021-05-22] MEDS: MUPIROCIN 2% OINT 22 GM TUBE EXT SCH ×2 (08:54→20:09)
[2021-05-22] MEDS: oxyBUTYnin 5 MG TAB PO SCH ×2 (08:55→20:10)
[2021-05-22] MEDS: GABAPENTIN 300 MG CAP PO SCH ×3 (08:55→20:10)
[2021-05-22] MEDS: ARIPiprazole 10 MG TAB PO SCH (08:55)
[2021-05-22] MEDS: TOPIRAMATE (TopAMAX) 100 MG TAB PO SCH (08:55)
[2021-05-22] MEDS: busPIRone 5 MG TAB PO SCH ×3 (08:55→20:10)
[2021-05-22] MEDS: ATOMOXETINE HCL 40 MG CAP (STRATTERA) PO SCH (08:55)
[2021-05-22] MEDS: DOCUSATE SODIUM 100MG CAPSULE PO SCH (08:55)
[2021-05-22] MEDS ORDERED: OLANZapine 5 MG TAB PO SCH (09:00)
[2021-05-22] MEDS ORDERED: FLUoxetine 10 MG CAP PO SCH (09:00)
[2021-05-22] MEDS: BUPRENORPHINE/NALOXONE 8-2MG SUBLINGUAL TABLET(SUBOXONE) SL SCH ×2 (09:54→15:17)
[2021-05-22] MEDS: BUPRENORPHINE/NALOXONE 2-0.5MG SUBLINGUAL TABLET(SUBOXONE) SL SCH (09:54)
[2021-05-22 10:18] LABS: CHOLESTEROL RISK RATIO 4.263 (<5)
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
[2021-05-22] MEDS: NICOTINE POLACRILEX 2 MG GUM PO PRN ×2 (12:41→22:47)
[2021-05-22 18:56] VITALS: BP 124/77
[2021-05-22] MEDS: traZODone 50 MG TAB PO PRN (20:09)
[2021-05-22] MEDS: MIRTAZAPINE 15 MG TAB PO SCH (20:10)
[2021-05-23 07:27] VITALS: BP 110/59
[2021-05-23] MEDS: MUPIROCIN 2% OINT 22 GM TUBE EXT SCH ×2 (07:58→20:41)
[2021-05-23] MEDS: NICOTINE POLACRILEX 2 MG GUM PO PRN ×2 (07:59→14:09)
[2021-05-23] MEDS: TOPIRAMATE (TopAMAX) 100 MG TAB PO SCH (08:04)
[2021-05-23] MEDS: ATOMOXETINE HCL 40 MG CAP (STRATTERA) PO SCH (08:04)
[2021-05-23] MEDS: DOCUSATE SODIUM 100MG CAPSULE PO SCH (08:04)
[2021-05-23] MEDS: oxyBUTYnin 5 MG TAB PO SCH ×2 (08:04→20:41)
[2021-05-23] MEDS: GABAPENTIN 300 MG CAP PO SCH ×3 (08:05→20:40)
[2021-05-23] MEDS: ARIPiprazole 10 MG TAB PO SCH (08:05)
[2021-05-23] MEDS: busPIRone 5 MG TAB PO SCH ×3 (08:05→20:41)
[2021-05-23] MEDS: FLUoxetine 20 MG CAP PO SCH (08:05)
[2021-05-23] MEDS: BUPRENORPHINE/NALOXONE 2-0.5MG SUBLINGUAL TABLET(SUBOXONE) SL SCH (08:52)
[2021-05-23] MEDS: BUPRENORPHINE/NALOXONE 8-2MG SUBLINGUAL TABLET(SUBOXONE) SL SCH ×2 (08:52→15:02)
[2021-05-23] MEDS ORDERED: BUPRENORPHINE/NALOXONE 8-2MG SUBLINGUAL TABLET(SUBOXONE) SL SCH (09:00)
[2021-05-23] MEDS ORDERED: BUPRENORPHINE/NALOXONE 2-0.5MG SUBLINGUAL TABLET(SUBOXONE) SL SCH (09:00)
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
[2021-05-23] MEDS: OLANZapine ORAL DISINTEGRATING TAB 5MG PO PRN (12:05)
[2021-05-23] MEDS: NICOTINE 21MG/24HR 1 EA TRANSDERMAL TD SCH (18:13)
[2021-05-23 18:41] VITALS: BP 130/81
[2021-05-23] MEDS: MIRTAZAPINE 15 MG TAB PO SCH (20:40)
[2021-05-23] MEDS: traZODone 50 MG TAB PO PRN (20:41)
[2021-05-24 06:00] VITALS: BP 121/64
[2021-05-24] MEDS: oxyBUTYnin 5 MG TAB PO SCH ×2 (08:13→21:17)
[2021-05-24] MEDS: TOPIRAMATE (TopAMAX) 100 MG TAB PO SCH (08:14)
[2021-05-24] MEDS: ATOMOXETINE HCL 40 MG CAP (STRATTERA) PO SCH (08:14)
[2021-05-24] MEDS: FLUoxetine 20 MG CAP PO SCH (08:14)
[2021-05-24] MEDS: ARIPiprazole 10 MG TAB PO SCH (08:14)
[2021-05-24] MEDS: GABAPENTIN 300 MG CAP PO SCH ×3 (08:14→21:14)
[2021-05-24] MEDS: busPIRone 5 MG TAB PO SCH ×3 (08:14→21:13)
[2021-05-24] MEDS: OLANZapine ORAL DISINTEGRATING TAB 5MG PO PRN (08:15)
[2021-05-24] MEDS: DOCUSATE SODIUM 100MG CAPSULE PO SCH (08:15)
[2021-05-24] MEDS: NICOTINE 21MG/24HR 1 EA TRANSDERMAL TD SCH (08:18)
[2021-05-24] MEDS: MUPIROCIN 2% OINT 22 GM TUBE EXT SCH ×2 (08:18→21:14)
[2021-05-24] MEDS: BUPRENORPHINE/NALOXONE 8-2MG SUBLINGUAL TABLET(SUBOXONE) SL SCH ×2 (09:07→15:28)
[2021-05-24] MEDS: BUPRENORPHINE/NALOXONE 2-0.5MG SUBLINGUAL TABLET(SUBOXONE) SL SCH (09:07)
--- NOTE | 2021-05-24 09:57 | MHIPNPDOC ---
[facility] Progress Note Progress Note DATE OF SERVICE: 05/24/21 HISTORY: Patient is a 35 -year-old , female, who has a history of substance-induced psychosis, schizophrenia, polysubstance abuse, and multiple suicide attempts by overdose and presents with toxicology screen positive for amphetamines and opioids, presents by police after calling and saying she had been stabbed. Patient reports taking "Rock", prior to coming in, heroin 2 days ago. Has been having delusions of people coming after her. VITAL SIGNS: See below. NEW TEST RESULTS: lipid panel unremarkable CURRENT MEDICATIONS: See below. MENTAL STATUS EXAMINATION: Patient is a 35-year old female, who is in no acute distress, withdrawn, sitting in a chair with good eye contact, improved hygiene with bleached blond hair, thin, appears somewhat older than stated age Speech: Is normal rate, spontaneous Language skills are fair Thought processes including: linear,,logical, goal directed. Thought content: Denies suicidal ideations, intent or plan. abstract reasoning, and computation: Fair. Description of associations: Fair. Description of abnormal or psychotic thoughts: Denies hallucinations, paranoia, delusions. Judgment: Good Insight: Fair, improving Orientation: x4 Recent and remote memory: intact Attention span and concentration: good, improved Language: Lithuanian. Fund of knowledge: Below average based on interview. Mood: "doing good". Affect: Euthymic, full, mood congruent DIAGNOSES: Schizoaffective disorder per history Rule out substance-induced psychotic disorder Methamphetamine use disorder, severe Heroin use disorder, severe Tobacco use disorder Hallucinogen use disorder,"rock". Skin infection, supplement with mupirocin ASSESSMENT: Patient continues to improve on her medications, no longer reporting depression or anxiety symptoms, tolerating medications without side effects, agreeable to plan to receive IM PINZON on Tuesday, as the Abilify has helped control any auditory visual hallucinations, helped improve mood and she wants to be on something that she can take monthly to ensure stability. Feels like she is ready to leave on Tuesday. Denies any suicidal ideation, intent or plan. Denies any homicidal ideation intent or plan. Denies manic symptoms or psychosis. No acute physical complaints. States her sleep is good. Reported going to group yesterday. States she went to make sure that she has her Suboxone when she leaves as bridge to [facility]. MANAGEMENT PLAN: Continue zyprexa zydis prn for anxiety, d/c prn risperdal, Continue Abilify 10 mg nightly, ordered Abilify Maintena 400 mg PINZON for May 25, 2021. nicotine gum for nicotine cravings. Continue on Suboxone, will be continued by [facility] outpatient, other home medications. Has a superficial wound treated with mupirocin on the right hand, states she has taken them with mupirocin, with good effect. TIME SPENT: 15 minutes. Vital Signs Vital Signs Date Time Temp Pulse Resp B/P (MAP) Pulse Ox O2 Delivery O2 Flow Rate FiO2 05/23/21 18:41 97.6 58 16 130/81 (97) 05/23/21 07:27 98 Room Air Current Medications Current Medications Medications (Trade) Dose Ordered Sig/René Route PRN Reason Start Time Stop Time Status Last Admin Dose Admin Acetaminophen (Tylenol Tab) 650 mg Q6HP PRN PO HEADACHE or MILD DISCOMFORT 05/20/21 02:50 Al Hydrox/Mg Hydrox/Simethicone (Mylanta) 30 ml Q4HP PRN PO HEARTBURN/INDIGESTION 05/20/21 02:50 Aripiprazole (AbiLIFY) 10 mg DAILY PO 05/21/21 09:00 05/24/21 08:14 Aripiprazole (Abilify Maintena) 400 mg Q30D IM 05/25/21 09:00 Atomoxetine HCl (Strattera (Atomoxetine)) 40 mg QAM PO 05/20/21 09:00 05/24/21 08:14 Atomoxetine HCl (Strattera (Atomoxetine)) 60 mg QAM PO 05/20/21 09:00 05/20/21 03:09 DC Buprenorphine/ Naloxone (Suboxone 2/ 0.5mg) 1 tab QAM SL 05/21/21 09:00 05/24/21 09:07 Buprenorphine/ Naloxone (Suboxone 2/ 0.5mg) 1 tab QAM SL 05/23/21 09:00 05/20/21 19:49 DC Buprenorphine/ Naloxone (Suboxone 8/2mg) 1 tab BID SL 05/20/21 21:00 05/21/21 08:34 DC 05/21/21 08:30 Buprenorphine/ Naloxone (Suboxone 8/2mg) 1 tab BID SL 05/23/21 09:00 05/20/21 19:49 DC Buprenorphine/ Naloxone (Suboxone 8/2mg) 1 tab BID@0900,1600 SL 05/21/21 16:00 05/24/21 09:07 Buspirone HCl (Buspar) 15 mg TID PO 05/20/21 09:00 05/24/21 08:14 Docusate Sodium (Colace) 100 mg DAILY PO 05/20/21 09:00 05/24/21 08:15 Fluoxetine HCl (PROzac) 10 mg DAILY PO 05/21/21 09:00 05/22/21 08:37 DC 05/21/21 09:37 Fluoxetine HCl (PROzac) 20 mg DAILY PO 05/22/21 09:00 05/22/21 11:55 DC 05/22/21 09:40 Fluoxetine HCl (PROzac) 40 mg DAILY PO 05/23/21 09:00 05/24/21 08:14 Gabapentin (Neurontin) 600 mg TID PO 05/20/21 09:00 05/24/21 08:14 Home Med (Home Med List Complete!) ASDIRECTED XX 05/19/21 23:25 05/19/21 23:24 DC Hydroxyzine HCl (Atarax) 50 mg Q4HP PRN PO ANXIETY/AGITATION 05/20/21 15:45 Magnesium Hydroxide (Milk Of Magnesia) 30 ml DAILYPRN PRN PO CONSTIPATION 05/20/21 02:50 Mirtazapine (Remeron) 15 mg QHS PO 05/19/21 21:00 05/23/21 20:40 Mupirocin (Bactroban 2% Ointment) APPLY TO WOUND ON RIGHT ARM BID EXT 05/20/21 09:00 05/24/21 08:18 Nicotine (Nicoderm Cq 21mg) 1 patch DAILY TD 05/21/21 09:00 05/21/21 10:39 DC 05/21/21 09:37 Nicotine (Nicoderm Cq 21mg) 1 patch DAILY TD 05/23/21 09:00 05/24/21 08:18 Nicotine (Nicorette) 4 mg Q2HP PRN PO NICOTINE WITHDRAWAL 05/21/21 09:45 05/21/21 12:00 DC 05/21/21 11:36 Nicotine (Nicorette) 4 mg Q5HP PRN PO NICOTINE WITHDRAWAL 05/21/21 12:00 05/23/21 17:42 DC 05/23/21 14:09 Olanzapine (ZyPREXA ZYDIS) 5 mg Q6HP PRN PO ANXIETY/AGITATION 05/23/21 11:00 05/24/21 08:15 Olanzapine (ZyPREXA) 5 mg DAILY PO 05/22/21 09:00 05/22/21 11:55 DC 05/22/21 08:56 Olanzapine (ZyPREXA) 15 mg DAILY PO 05/20/21 09:00 05/21/21 09:21 DC 05/21/21 08:25 Oxybutynin Chloride (Ditropan) 5 mg BID PO 05/20/21 09:00 05/24/21 08:13 Prazosin HCl (Minipress) 2 mg QHS PO 05/19/21 21:00 05/22/21 11:55 DC Risperidone (RisperDAL) 1 mg Q4HP PRN PO AGITATION/AGGRESSION 05/20/21 02:50 Cancel Topiramate (TopAMAX) 100 mg DAILY PO 05/20/21 09:00 05/24/21 08:14 Trazodone HCl (Desyrel) 50 mg QHSP PRN PO INSOMNIA 05/20/21 02:50 05/23/21 20:41 Allergies Coded Allergies: No Known Allergies (Verified , 06/02/20) BRANDI ESTES MD May 24, 2021 09:57
[2021-05-24 18:35] VITALS: BP 129/94
[2021-05-24] MEDS: MIRTAZAPINE 15 MG TAB PO SCH (21:14)
[2021-05-25] MEDS: TOPIRAMATE (TopAMAX) 100 MG TAB PO SCH (08:17)
[2021-05-25] MEDS: MUPIROCIN 2% OINT 22 GM TUBE EXT SCH (08:17)
[2021-05-25] MEDS: ATOMOXETINE HCL 40 MG CAP (STRATTERA) PO SCH (08:20)
[2021-05-25] MEDS: oxyBUTYnin 5 MG TAB PO SCH (08:20)
[2021-05-25] MEDS: busPIRone 5 MG TAB PO SCH (08:21)
[2021-05-25] MEDS: BUPRENORPHINE/NALOXONE 2-0.5MG SUBLINGUAL TABLET(SUBOXONE) SL SCH (08:21)
[2021-05-25] MEDS: BUPRENORPHINE/NALOXONE 8-2MG SUBLINGUAL TABLET(SUBOXONE) SL SCH (08:21)
[2021-05-25] MEDS: GABAPENTIN 300 MG CAP PO SCH (08:21)
[2021-05-25] MEDS: FLUoxetine 20 MG CAP PO SCH (08:21)
[2021-05-25] MEDS: NICOTINE 21MG/24HR 1 EA TRANSDERMAL TD SCH (08:21)
[2021-05-25] MEDS: ARIPiprazole 10 MG TAB PO SCH (08:21)
[2021-05-25] MEDS: DOCUSATE SODIUM 100MG CAPSULE PO SCH (08:21)
[2021-05-25] MEDS ORDERED: ARIPiprazole MONOHYDRATE 400 MG INJ (ABILIFY) IM SCH (09:00)
--- NOTE | 2021-05-25 10:18 | MHDSPDOC ---
[facility] Discharge Summary Discharge Summary DATE OF ADMISSION: May 20, 2021 at 02:49 DATE OF DISCHARGE: May 25, 2021 Discharge diagnoses: Schizoaffective disorder per history Rule out substance-induced psychotic disorder Methamphetamine use disorder, severe Heroin use disorder, severe Tobacco use disorder Hallucinogen use disorder,"rock". Skin infection, supplement with mupirocin Reason for admission:Patient is a 35 -year-old , female, who has a history of substance-induced psychosis, schizophrenia, polysubstance abuse, and multiple suicide attempts by overdose and presents with toxicology screen positive for amphetamines and opioids, presents by police after calling and saying she had been stabbed. Patient reports taking "Rock", prior to coming in, heroin 2 days ago. Has been having delusions of people coming after her. Vital signs: See below Consultants involved: See medical H&P by hospitalist Treatment and progress on the unit: Patient was admitted to the [facility] 9.39 legal status and was afforded the following treatment modalities: 1. Individual therapy 2. Group therapy 3. Medication management 4. Milieu therapy 5. Safe environment Hospital course: Patient was admitted to the [facility] on a 9.39 legal status. Was medically cleared prior to coming up to the [facility]. Toxicology screen was positive for opioids and families, patient reported taking "rock" prior to admission, has history of polysubstance abuse, states that she hears voices in the evening telling her to harm herself, and that these have occurred even when sober from drug use for months, reports this to be chronic and persistent asking for a medication that can be given once monthly due to the fact that she forgets to take her medications and has been noncompliant in the past with oral medications, reports a trigger for drug use and was auditory hallucinations. Olanzapine was titrated down and discontinued, was started on Abilify 10 mg nightly she reported this has helped her in the past with mood and voices, also continued on her BuSpar 50 mg twice daily, gabapentin 600 milligrams 3 times daily, topiramate 100 mg daily for seizures, atomoxetine, trazodone as needed 50 mg for sleep and Suboxone which was confirmed with [facility] where she previously received substance abuse treatment, Suboxone was determined to be 8/2 twice daily with 2/0.5 every morning, patient received Abilify 400 mg IM PINZON May, which was tolerated well without swelling or tenderness, no allergy. states she wants to continue taking the shot once a month and follow-up with her outpatient [facility], reporting that she is future oriented. Patient received mupirocin for hand R and wound, which was evaluated by hospitalist team, where should be evaluated by outpatient doctor post discharge. Patient found medications beneficial and tolerated them well. Denies mood anxiety and intrusive thoughts which improved with treatment. Patient attended groups during stay. Patient symptoms improved with treatment. On day of discharge patient denied depression, anxiety, insomnia, suicidal or homicidal ideations intent or plan, hallucinations, delusions. Patient was discharged home with follow-up. Patient felt safe for discharge. Was offered continued stay on voluntary admission but refused.This report was requested by: Brandi Estes | Reference #: [id number], was prescribed of 15-day supply May 14, 2020 of her Suboxone by outside provider. Discharge assessment: On today's interview patient is alert and oriented, dressed appropriately. Improved eye contact, bleach blond hair. hygiene and grooming is well-kept, significantly improved from previous day. Smiles on approach and is pleasant and engaged on interview. Denies depression and anxiety. Denies suicidal homicidal ideation, intent or planning. Denies and is not observed with vince or psychotic symptoms of delusions, hallucinations, bizarre thinking, obsessions, paranoia, ruminations, illogical thoughts, flight of ideas or having poor insight or judgment. Patient has normal mentation, declines further hospitalization of voluntary status and meets criteria for di scharolinda today, patient encouraged to return the hospital if symptoms worsen or change and encouraged to call unit if they feel they need provider's questions to be answered or help with medications or care. Mental status: Patient is a 35-year old female, who is in no acute distress, engaged, sitting in a chair with good eye contact, improved hygiene with bleached blond h air, thin, appears somewhat older than stated age Speech: Is normal rate, spontaneous Language skills are fair Thought processes including: linear,,logical, goal directed. Thought content: Denies suicidal ideations, intent or plan. abstract reasoning, and computation: Fair. Description of associations: Fair. Description of abnormal or psychotic thoughts: Denies hallucinations, paranoia, delusions. Judgment: Good Insight: Good Orientation: x4 Recent and remote memory: intact Attention span and concentration: good, improved Language: Egyptian. Fund of knowledge: Below average based on interview. Mood: "I am okay, 8 out of 10". Affect: Euthymic, full, mood congruent, Medications on discharge: -see medication reconciliation: CSSRS on discharge: Wish to be : No nonspecific active suicidal thoughts: No lifetime attempts: Multiple prior by overdose. interrupted attempts: 0 aborted attempts: 0 preparatory acts or behavior: None Taking into consideration safety state, status, modifiable, non-modifiable risk factors patient is at chronically elevated risk on discharge for suicide according to [place] suicide evaluation. PLAN/FOLLOWUP ARRANGEMENTS: Follow Up Care Education Label * Mental Health Appt 1 * Mental Health [facility] * Established With This Provider Yes * Therapist Zoraida * Date May 27, 2021 * Time 10:00 * Address of Clinic or Practice [address] [place] [address] * Follow Up Care Education Label * Mental Health Appt 2 * Mental Health [facility] * Therapist MANDY VILLAGRAN * Date May 26, 2021 * Time 15:30 * Address of Clinic or Practice [address] [place] [address] * The amount of time spent in the coordination of care for this patient was approximately 35 minutes. ETOH/Disorder Med Rx ETOH/DRUG DISORDER RX: Offrd @ d/c & pt refused Vital Signs/I&Os Vital Signs Date Time Temp Pulse Resp B/P (MAP) Pulse Ox O2 Delivery O2 Flow Rate FiO2 05/24/21 18:35 98.1 78 18 129/94 (106) 05/24/21 06:00 99 05/23/21 07:27 Room Air Medications Scheduled Aripiprazole (Abilify) 10 Mg Tablet, 10 MG PO DAILY for mood, #7 Aripiprazole Monohydrate (Abilify Maintena) 400 Mg Suser.vial, 400 MG IM Q30D for psychosis, #1 Atomoxetine Hydrochloride (Strattera) 60 Mg Capsule, 60 MG PO DAILY, (Reported) Buprenorphine HCl/Naloxone HCl (Suboxone 8 mg-2 mg Sl Film) 1 Each Film, 1 STRIP SL BID, (Reported) Buprenorphine HCl/Naloxone HCl (Suboxone 2 mg-0.5 mg Sl Film) 1 Each Film, 1 STRIP SL QHS, (Reported) TAKES WITH 8MG FOR 10MG TOTAL AT QHS Buspirone HCl (Buspirone HCl) 15 Mg Tablet, 15 MG PO TID for anxiety, #14 Cephalexin (Cephalexin) 500 Mg Capsule, 500 MG PO Q6H for 7 Days, (Reported) STARTED ON 05/13/21 Docusate Sodium (Docusate Sodium) 100 Mg Capsule, 100 MG PO DAILY, (Reported) Fluoxetine Hcl (Fluoxetine HCl) 20 Mg Capsule, 40 MG PO DAILY for mood, #7 Gabapentin (Gabapentin) 600 Mg Tablet, 600 MG PO TID, (Reported) Mirtazapine (Remeron) 15 Mg Tablet, 15 MG PO QHS for sleep, #7 Mupirocin (Mupirocin) 2 % Oint...g., 1 DOSE EXT BID for 14 Days, (Reported) STARTED ON 05/13/21, APPLY TO WOUND ON RIGHT ARM Oxybutynin Chloride (Oxybutynin Chloride) 5 Mg Tablet, 5 MG PO BID for overactive baldder, #14 Topiramate (Topiramate) 100 Mg Tablet, 100 MG PO DAILY for seizures, #7 Scheduled PRN Nicotine Polacrilex (Nicotine Gum) 4 Mg Gum, 4 MG MT QID PRN for SMOKING CESSATION, #21 Trazodone HCl (Trazodone HCl) 50 Mg Tablet, 50 MG PO QHSP PRN for INSOMNIA, #7 Allergies Coded Allergies: No Known Allergies (Verified , 06/02/20) BRANDI ESTES MD May 25, 2021 10:17
[2021-05-25] MEDS ORDERED: FLUO20CA22 PO (10:27)
[2021-05-25] MEDS ORDERED: TRAZ-252 PO (10:27)
[2021-05-25] MEDS ORDERED: ABIL400I IM (10:27)
[2021-05-25] MEDS ORDERED: BUSP15TA47 PO (10:27)
[2021-05-25] MEDS ORDERED: MIRT-62 PO (10:27)
[2021-05-25] MEDS ORDERED: TOPI100T9 PO (10:27)
[2021-05-25] MEDS ORDERED: NICO4GUM MT (10:27)
[2021-05-25] MEDS ORDERED: ABIL10TA9 PO (10:27)
[2021-05-25] MEDS ORDERED: OXYB5TAB10 PO (10:27)
== END 2021-05-25 11:42 | disposition home or self-care (01) | DRG 750 ==
LOC: M ED 18:42 → M ED INP 05-20 02:49 → M PSY 05-20 03:15
PROVIDERS: ADMIT Student in an Organized Health Care Education/Training Program; ATTEND Student in an Organized Health Care Education/Training Program
DX: F25.9 Schizoaffective disorder, unspecified (principal); F15.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, uncomplicated; F11.251 Opioid dependence with opioid-induced psychotic disorder with hallucinations; Z91.14 Patient's other noncompliance with medication regimen; G40.909 Epilepsy, unspecified, not intractable, without status epilepticus; F16.10 Hallucinogen abuse, uncomplicated; Z81.8 Family history of other mental and behavioral disorders; Z20.822 Contact with and (suspected) exposure to COVID-19; Z79.899 Other long term (current) drug therapy; F17.200 Nicotine dependence, unspecified, uncomplicated; Z91.51 Personal history of suicidal behavior; G43.909 Migraine, unspecified, not intractable, without status migrainosus; L98.498 Non-pressure chronic ulcer of skin of other sites with other specified severity

== ENCOUNTER 2021-06-01 14:06 | Inpatient (IN) | payer OTHER ==
[~2021-06-01] VITALS: Ht 154.9 cm; Wt 65.0 kg
[~2021-06-01 14:06] MED LIST changes: +ABIL10TA9 PO; +ABIL400I IM; +ATOM60CA PO; +CEPH500C PO; +FLUO20CA22 PO; +MUPI2OI EXT; +SUBO2MIS SL
--- OUTSIDE RECORDS SUMMARY | 2021-06-01 14:15 | CCD ---
Author Author [facility] Organization [facility] Address Unknown Phone Unavailable Care Team Providers Care Sales Operations Lead Name Role Phone Vicki Hanna MD Unavailable [...] Unavailable Unavailable Vicki Hanna MD Unavailable Unavailable [place], DO Escudero DO Unavailable Unavailable ABI SANCHEZ MD Unavailable [...] Unavailable ABI SANCHEZ MD Unavailable Unavailable Green STRAIGHTENING ROLL OPERATOR STRAIGHTENING ROLL OPERATOR, Gina Unavailable Unavailable Green STRAIGHTENING ROLL OPERATOR STRAIGHTENING ROLL OPERATOR, Gina Unavailable Unavailable Green STRAIGHTENING ROLL OPERATOR STRAIGHTENING ROLL OPERATOR, Gina Unavailable Unavailable Green STRAIGHTENING ROLL OPERATOR STRAIGHTENING ROLL OPERATOR, Gina Unavailable Unavailable Green STRAIGHTENING ROLL OPERATOR STRAIGHTENING ROLL OPERATOR, Gina Unavailable Unavailable Michael Castañeda MD Unavailable [...] Unavailable Audi, Neli Figueroa MD Unavailable Unavailable Uadi, Neli Figueroa MD Unavailable Unavailable Audi, Neli [...] Unavailable Unavailable ASAANNELISE Donis MD Unavailable Unavailable ASAANNELISE Donis MD Unavailable Unavailable ASAANNELISE Donis MD Unavailable Unavailable ASAANNELISE Donis MD Unavailable Unavailable ASARANNELISE MD Unavailable Unavailable ASARANNELISE MD Unavailable Unavailable ASAANNELISE Donis MD Unavailable Unavailable Vicki Hanna MD Unavailable [...] is protected by Article 27-F of the [facility] Public Health law. If you continue you may have access to information: Regarding HIV / AIDS; Provided by facilities licensed or operated by the [facility] Office of Mental Health; or Provided by the [facility] Office for People With Developmental Disabilities. If such information is present, then the following [facility] mandated warning applies: This information has been [...] law may result in a fine or intermediate sentence or both. A general authorization for the release of medical or other information is NOT sufficient authorization for further disc losure. Allergies and Adverse Reactions Type Description Substance Reaction Status Data Source(s ) Propensity to adverse reactions Propensity to adverse reacti ons No Known Drug Allergies [facility] Drug allergy Drug allergy No Known Allergies Ca [facility] Family History Family Member Name Family Member Gender Family Member Status Date o f Status Description Data Source(s) Unknown Male Diagnosis 01/22/2014 12:00:00 AM EDT [facility] ([facility]) Encounters Encounter Providers Location Date Indications Data Source(s ) Julito Hanna MD: [address] [place] [phone], Ph. Attender: Julito Hanna MD [facility] Medical 05/13/2021 12:00:00 AM EDT [facility] ([facility]) [facility]: [facility] 04/14/2021 01:46:00 PM EDT - 04/14/2021 01:46:00 PM EDT [facility] ([facility]) Preadmit Attender: Dorie Huntley MD [facility] 0 02/23/2021 12:25:00 AM EDT - 02/23/2021 12:25:00 AM EDT [facility] Discharge cancelled. Disregard status an d discharged date. Inpatient Attender: Annelise Savage nder: ANNELISE GRAY MDAdmitter: ANNELISE GRAY MD [facility] 01/27/2021 01:41:00 PM EDT - 02/24/2021 10:00:00 AM EDT PSYCHOACTIVE SUBSTANCE DEPENDENCE [facility] PSYCHOACTIVE SUBSTANCE DEPENDENCE Patient discharged. Inpatient Attender: Kena Chowdhury DOAdmitter: Raul Chowdhury DO SURG-MED 01/14/2021 10:13:00 AM EDT - 01/18/2021 12:43:00 PM EDT [facility] Patient discharged. Inpatient Attender: Kena Chowdhury DOAdmitter: Raul Chowdhury DO SURG-MED 01/14/2021 10:13:00 AM EDT - 01/18/2021 12:43:00 PM EDT [facility]. V Attender: Kena Chowdhury DOAdmitter: Raul Chowdhury DO SURG-MED 01/13/2021 05:23:00 PM EDT [facility] Patient admitted. Outpatient Attender: ABI SANCHEZ MD SURG-LAB 01/13/2021 04:01: 00 PM EDT [facility] Attender: Carolina Jimenez 0 11/03/2020 11:58:00 AM EDT - 11/03/2020 11:58:00 AM EDT [facility] ([facility]) Attender: Carolina Jimenez 0 10/15/2020 02:33:00 PM EDT - 10/15/2020 02:33:00 PM EDT [facility] ([facility]) Attender: Carolina Hernández 03:02:00 PM EDT - 10/13/2020 03:02:00 PM EDT [facility] ([facility]) Attender: Carolina Hernández 11/2020 01:36:00 PM EST - 10/03/2020 01:36:00 PM EST [facility] ([facility]) Attender: Carolina Jimenez 0 09/26/2020 10:53:00 AM EST - 09/26/2020 10:53:00 AM EST [facility] ([facility]) Attender: Gina France NP STRAIGHTENING ROLL OPERATOR MARELY Hernández 0 09/25/2020 09:16:00 AM EST - 09/25/2020 09:16:00 AM EST Contact with and (suspected) exposure to viral hepatitisUnspecified viral hepatitis C without hepatic coma [facility] ([facility]) Contact with and (suspected) exposure to viral hepatitis Unspecified viral hepatitis C without he patic coma Attender: Gina France NP STRAIGHTENING ROLL OPERATOR MARELY Hernández 0 09/22/2020 01:14:00 PM EST - 09/22/2020 01:14:00 PM EST Trichomonal vulvovaginitis [facility] ([facility]) Trichomonal vulvovaginitis OutpatientOFFICE VISIT, EST Attender: Gina France STRAIGHTENING ROLL OPERATOR STRAIGHTENING ROLL OPERATOR MARELY Hernández 09/15/2020 02:45:00 PM EST - [...] test, result negative [facility] ([facility]) Other specified noninflammatory disorder s of [...] PM EST [facility] ([facility]) Attender: Latanya Hernández 04/2021 03:58:00 PM EST - 09/09/2020 03:58:00 PM EST [facility] ([facility]) Outpatient Attender: Julito Hanna MD 05/16/2020 04:01:01 PM EDT [facility] Outpatient Attender: Julito Hanna MD 05/16/2020 03:47:00 PM EDT [facility] Attender: Carolina Hernández 04:15:00 PM EDT - 04/30/2020 04:15:00 PM EDT [facility] ([facility]) Emergency Attender: Eder LANDA ttender: Tia Castañeda MDAttender: Tia Castañeda MD [facility]-ED 04/30/2020 01:37:00 PM EDT - 04/30/2020 04:35:00 PM EDT ABDOMINAL PAIN [facility] ABDOMINAL PAIN Patient discharged. Outpatient Attender: Julito PASTRANA 04/23/2020 09:58:01 AM EDT [facility] Inpatient Attender: Annelise Gray MDAtte nder: ANNELISE GRAY MDAdmitter: ANNELISE GRAY MDConsultant: ANNELISE GRAY MDConsultant: Annelise Gray MD [facility] 04/16/2020 10:19:00 AM EDT - 05/14/2020 11:45:00 AM EDT PSYCHOACTIVE SUBSTANCE DEPENDENCE [facility] PSYCHOACTIVE SUBSTANCE DEPENDENCE Patient discharged. Medications Medication Brand Name Start Date Product Form Dose Route Admi nistrative Instructions Pharmacy Instructions Status Indications Reaction Description Data Source(s) 5 mg 05/25/2021 12:00:00 AM EDT tablet 14 TAKE ONE TABLET BY MOUTH TWICE A DAY FOR OVERACTIVE BLADDER TAKE ONE TABLET BY MOUTH TWICE A DAY FOR OVERACTIVE BLADDER SOLD: 05/25/2021 [facility] 10 mg 05/25/2021 12:00:00 AM EDT tablet 7 TAKE ONE TABLET BY MOUTH EVERY DAY FOR MOOD TAKE ONE TABLET BY MOUTH EVERY DAY FOR MOOD SOLD: 05/25/2021 [facility] buspirone hydrochloride 15 MG Oral Tablet BUSPIRONE HCL 05/25/2021 12:00:00 AM EDT tablet 14 TAKE ONE TABLET BY MOUTH THR EE TIMES A DAY FOR ANXIETY TAKE ONE TABLET BY MOUTH THREE TIMES A DAY FOR ANXIETY SOLD: 05/25/2021 [facility] 50 mg 05/25/2021 12:00:00 AM EDT tablet 7 TAKE ONE TABLET BY MOUTH AT BEDTIME NEEDED FOR INSOMNIA TAKE ONE TABLET BY MOUTH AT BEDTIME N EEDED FOR INSOMNIA SOLD: 05/25/2021 [facility] 20 mg 05/25/2021 12:00:00 AM EDT capsule 7 TAKE TWO CAPSULES BY MOUTH EVERY DAY FOR MOOD TAKE TWO CAPSULES BY MOUTH EVERY DAY FOR MOOD SOLD: 05/25/2021 [facility] 15 mg 05/25/2021 12:00:00 AM EDT tablet 7 TAKE ONE TABLET BY MOUTH AT BEDTIME FOR SLEEP TAKE ONE TABLET BY MOUTH AT BEDTIME FOR SLEEP SOLD: [facility] 4 mg 05/25/2021 12:00:00 AM EDT gum 110 CHEW ONE PIECE OF GUM BUCCALLY FOUR TIMES A DAY NEEDED FOR SMOKING CESSATION CHEW ONE PIECE OF GUM BUCCALLY FOUR TIMES A DAY NEEDED FOR SMOKING CESSATION SOLD: 05/25/2021 [facility] 2-0.5 mg 05/14/2021 12:00:00 AM EDT film [...] OLANZAPINE 05/13/2021 12:00:00 AM EDT tab let 10 TAKE ONE TABLET BY MOUTH EVERY MORNING TAKE ONE TABLET BY MOUTH EVERY MORNING SOLD: 05/25/2021 [facility] 5 mg 05/13/2021 12:00:00 AM [...] DAILY DOSE = 2 FILMS SOLD: 04/30/2021 [facility] buspirone hydrochloride 15 MG Oral Tablet BUSPIRONE HCL 04/29/2021 12:00:00 AM EDT tablet 45 TAKE ONE TABLET BY MOUTH THR EE TIMES A DAY TAKE ONE TABLET BY MOUTH THREE TIMES A DAY SOLD: 04/30/2021 [facility] 2-0.5 mg 04/29/2021 12:00:00 AM EDT film [address] ONE FILM UNDER THE TONGUE EVERY MORNING MAXIMUM DAILY DOSE = [address] ONE FILM UNDER THE TONGUE EVERY MORNING MAXIMUM DAILY DOSE = 1 FILM SOLD: 04/30/2021 [facility] 60 mg 04/29/2021 12:00:00 AM EDT capsule 15 TAKE ONE CAPSULE BY MOUTH EVERY MORNING TAKE ONE CAPSULE BY MOUTH EVERY MORNING SOLD: 04/30/2021 [facility] olanzapine 15 MG Oral Tablet OLANZAPINE 04/29/2021 12:00:00 AM EDT tab let 15 TAKE ONE TABLET BY MOUTH EVERY MORNING TAKE ONE TABLET BY MOUTH EVERY MORNING SOLD: 04/30/2021 [facility] 4 mg 04/15/2021 12:00:00 AM EDT gum 50 TAKE ONE (1) EACH BY MOUTH EVERY THREE HOURS, NEEDED TAKE ONE (1) EACH BY MOUTH EVERY THREE HOURS, NEEDE D SOLD: 04/16/2021 [facility] olanzapine 10 MG Oral Tablet OLANZAPINE 04/15/2021 12:00:00 AM EDT tab let 22 TAKE ONE HALF (0.5) TABLET BY MOUTH EVERY IN THE MORNING AND ONE (1) TABLET AT BEDTIME TAKE ONE HALF (0.5) TABLET BY MOUTH EVER Y IN THE MORNING AND ONE (1) TABLET AT BEDTIME SOLD: 04/16/2021 [facility] buspirone hydrochloride 15 MG Oral Tablet BUSPIRONE HCL 04/15/2021 12:00:00 AM EDT tablet 45 TAKE ONE TABLET BY MOUTH THR EE TIMES A DAY TAKE ONE TABLET BY MOUTH THREE TIMES A DAY SOLD: 04/16/2021 [facility] 600 mg 04/15/2021 12:00:00 AM EDT [...] CAPSULES BY MOUTH EVERY DAY SOLD: 02/24/2021 [facility] 50 mcg (2,000 unit) 02/24/2021 12:00:00 AM EDT tablet 30 TAKE ONE TABLET BY MOUTH EVERY DAY TAKE ONE TABLET BY MOUTH EVERY DAY SOLD: 02/24/2021 [facility] 8.6-50 mg 02/24/2021 12:00:00 AM EDT [...] APPLY 1 PATCH DAILY SOLD: 02/24/2021 [facility] buspirone hydrochloride 15 MG Oral Tablet [...] TABLET BY MOUTH EVERY DAY SOLD: 02/24/2021 [facility] 1 mg 02/24/2021 12:00:00 AM EDT capsule 7 TAKE ONE CAPSULE BY MOUTH AT BEDTIME TAKE ONE CAPSULE BY MOUTH AT BEDTIME SOLD: 02/24/2021 [facility] 50 mcg 02/24/2021 12:00:00 AM EDT tablet 30 TAKE ONE TABLET BY MOUTH EVERY DAY TAKE ONE TABLET BY MOUTH EVERY DAY SOLD: 02/24/2021 [facility] 10 mg 02/24/2021 12:00:00 AM EDT tablet extended release 24hr 7 TAKE ONE TABLET BY MOUTH EVERY DAY TAKE ONE TABLET BY MOUTH EVERY DAY SOLD: 02/24/2021 [facility] 4 mg/actuation 02/23/2021 12:00:00 AM EDT spray,non-aerosol 2 USE FOR SUSPECTED OPIOID OVERDOSE AND CALL 911 USE FOR SUSPECTED OPIOID OVERDOSE AND CALL 911 SOLD: 02/24/2021 [facility] doxycycline hyclate 100 MG Oral Tablet Doxycycline Hyc late 100 MG TABLET Doxycycline Hyclate 100 MG TABLET 01/18/2021 12:00:00 AM EDT 100 completed Twice Daily [facility] doxycycline hyclate 100 MG Oral Tablet DOXYCYCLINE HYCLATE 0 01/18/2021 12:00:00 AM EDT tablet 20 TAKE ONE TABLET BY MOUTH TWI CE A DAY TAKE ONE TABLET BY MOUTH TWICE A DAY SOLD: 01/19/2021 [facility] 3 mg 01/18/2021 12:00:00 AM EDT tablet 5 TAKE ONE TABLET BY MOUTH AT BEDTIME TAKE ONE TABLET BY MOUTH AT BEDTIME SOLD: 01/19/2021 [facility] Docusate Sodium 100 MG Oral Capsule [Col gopi] Docusate Sodium (Colace) 100 MG CAPSULE Docusate Sodium (Colace) 100 MG CAPSULE 01/18/2021 12:00:00 AM E DT 200 completed Daily as needed [facility] olanzapine 15 MG Oral Tablet Olanzapine 15 MG TABLET Olanzap ine 15 MG TABLET 01/18/2021 12:00:00 AM EDT 15 completed At Bedtime [facility]. 600 mg 01/18/2021 12:00:00 AM EDT tablet [...] 12:00:00 AM EDT 50 completed At Bedtime [facility] Buprenorphine 8 MG / Naloxone 2 MG Oral Strip [Suboxone] Buprenorphine HCl/Naloxone HCl (Suboxone 8 MG-2 MG Sl Film) 1 EACH FILM Buprenorphine HCl/Naloxone HCl (Suboxone 8 MG-2 MG Sl Film) 1 EACH FILM 01/18/2021 12:00:00 AM EDT 8 completed Twice Daily [facility] 2 mg 01/18/2021 12:00:00 AM EDT capsule 5 TAKE ONE CAPSULE BY MOUTH AT BEDTIME TAKE ONE CAPSULE BY MOUTH AT BEDTIME SOLD: 01/19/2021 [facility] 8-2 mg 01/18/2021 12:00:00 AM EDT [...] 12:00:00 AM EDT 3 completed At Bedtime [facility] 50 mg 01/18/2021 12:00:00 AM EDT tablet 5 TAKE ONE TABLET BY MOUTH AT BEDTIME TAKE ONE TABLET BY MOUTH AT BEDTIME SOLD: 01/19/2021 [facility] 100 mg 01/18/2021 12:00:00 AM EDT capsule 10 TAKE TWO CAPSULES BY MOUTH EVERY DAY NEEDED TAKE TWO CAPSULES BY MOUTH EVERY DAY NEEDED SOLD: 01/19/2021 [facility] Multi-Vit/Mineral (Multivitamin Tablet) 1 TAB TAB 01/18/2021 12:00:00 AM EDT 1 completed Daily [facility] olanzapine 15 MG Oral Tablet OLANZAPINE 01/18/2021 12:00:00 AM EDT tab let 5 TAKE ONE TABLET BY MOUTH AT BEDTIME TAKE ONE TABLET BY MOUTH AT BEDTIME SOLD: 01/19/2021 [facility] Prazosin 2 MG Oral Capsule [Minipress] Prazosin HCl (M inipress) 2 MG CAPSULE Prazosin HCl (Minipress) 2 MG CAPSULE 01/18/2021 12:00:00 AM EDT 2 completed At Bedtime [facility] gabapentin 600 MG Oral Tablet Gabapentin 600 MG TABLET Gabap entin 600 MG TABLET 01/18/2021 12:00:00 AM EDT 600 completed Three Times a Day [facility] Mirtazapine 15 MG Oral Tablet Mirtazapine 15 MG TABLET Christine zapine 15 MG TABLET 01/18/2021 12:00:00 AM EDT 15 completed At Bedtime [facility] 400 mcg 01/18/2021 12:00:00 AM EDT tablet 5 TAKE ONE TABLET BY MOUTH EVERY DAY TAKE ONE TABLET BY MOUTH EVERY DAY SOLD: 01/19/2021 [facility] 8-2 mg 01/13/2021 12:00:00 AM EDT [...] 1 (#4) [facility] ([facility]) 1 mg 09/22/2020 12:00:00 AM [...] DAILY DOSE = 2 FILMS LOT # [id number] PLACE ONE FILM UNDER THE TONGUE TWICE A DAY MAXIMUM DAILY DOSE = 2 FILMS LOT # [id number] SOLD: 07/24/2020 [facility] olanzapine 5 MG [...] CAPSULE BY MOUTH AT BEDTIME SOLD: 07/09/2020 [facility] 400 mg 07/08/2020 12:00:00 AM EST [...] MOUTH AT BEDTIME FOR ANTIPSYCHOTIC SOLD: 06/13/2020 [facility] 15 mg 06/10/2020 12:00:00 AM [...] TABLET BY MOUTH AT BEDTIME SOLD: 05/29/2020 [facility] 15 mg 05/28/2020 12:00:00 AM EDT tablet 30 TAKE ONE TABLET BY MOUTH AT BEDTIME TAKE ONE TABLET BY MOUTH AT BEDTIME SOLD: 05/29/2020 [facility] 25 mg 05/28/2020 12:00:00 AM EDT tablet 30 TAKE ONE TABLET BY MOUTH EVERY MORNING TAKE ONE TABLET BY MOUTH EVERY MORNING SOLD: 05/29/2020 [facility] olanzapine 5 MG Oral Tablet OLANZAPINE 05/28/2020 12:00:00 AM EDT tabl et 60 TAKE ONE TABLET BY MOUTH TWICE A DAY TAKE ONE TABLET BY MOUTH TWICE A DAY SOLD: 05/29/2020 [facility] 400 mg 05/28/2020 12:00:00 AM EDT [...] DAY (8AM, 1PM., AND 9PM) SOLD: 05/29/2020 [facility] 100 mg 05/28/2020 12:00:00 AM [...] BY MOUTH AT BEDTIME SOLD: 05/14/2020 [facility] 10 mg 05/14/2020 12:00:00 AM [...] MOUTH EVERY DAY SOLD: 05/14/2020 [facility] Oxybutynin chloride 5 MG Oral Tablet OXYBUTYNIN CHLORIDE 01/2020 12:00:00 AM EDT tablet 60 TAKE ONE TABLET BY MOUTH TWI CE A DAY TAKE ONE TABLET BY MOUTH TWICE A DAY SOLD: 05/16/2020 [facility] 168 HR Ethinyl Estradiol 0.15660 MG/HR / norelgestromin 0.71530 MG/HR Transdermal Patch [Xulane] XULANE PATCH XULANE PATCH 03/03/2020 12:00:00 AM EDT completed 168 HR ethinyl estradiol 0.91838 MG/HR / norelgestromin 0.79998 MG/HR Transdermal System [Xulane] [facility] ([facility]) 5 mg 02/25/2020 12:00:00 AM EDT tablet [...] completed hydroxyzine hydrochloride 25 MG Oral Tablet [place] ([facility]) Mirtazapine 15 MG Oral Tablet Mirtazapine 15 Mg Tablet Tablet, 15 Mg Oral Mirtazapine 15 Mg Tablet Tablet, 15 Mg Oral 15 completed At Bedtime [facility]. Risperidone 3 MG Oral Tablet risperidone 3 mg tablet TAKE ONE TABLET BY MOUTH AT BEDTIME risperidone 3 mg tablet TAKE ONE TABLET BY MOUTH AT BEDTIME completed risperidone 3 MG Oral Tablet [facility]) Sertraline 50 MG Oral Tablet [Zoloft] Se rtraline Hcl 50 Mg Tablet Tablet, 50 Mg Oral Sertraline Hcl 50 Mg Tablet Tablet, 50 Mg Oral 50 completed At Bedtime [facility] Cephalexin 500 MG Oral Capsule cephalexi n 500 mg capsule TAKE ONE CAPSULE BY MOUTH THREE TIMES A DAY cephalexin 500 mg capsule TAKE ONE CAPSU LE BY MOUTH THREE TIMES A DAY completed ceph alexin 500 MG Oral Capsule [facility]) Risperidone 3 MG Oral Tablet [Risperdal] Risperidone (Risperdal) 3 Mg Tablet Tablet, 3 Mg Oral Risperidone (Risperdal) 3 Mg Tablet Tablet, 3 Mg Oral 3 completed At Bedtime [facility] buspirone hydrochloride 7.5 MG Oral Tabl et buspirone 7.5 mg tablet TAKE ONE TABLET BY MOUTH THREE TIMES A DAY buspirone 7.5 mg tablet TAKE ONE TABLET BY MOUTH THREE TIMES A DAY completed buspirone hydrochloride 7.5 MG Oral Tablet [facility]) Metronidazole 500 MG Oral Tablet metroni dazole 500 mg tablet 500 MG BY MOUTH AT BEDTIME FOR INFECTION metronidazole 500 mg tablet 500 MG BY MO UTH AT BEDTIME FOR INFECTION completed metronidazo le 500 MG Oral Tablet [facility]) Levothyroxine Sodium 0.05 MG Oral Tablet levothyroxine 50 mcg tablet TAKE ONE TABLET BY MOUTH EVERY DAY levothyroxine 50 mcg tablet TAKE ONE TAB LET BY MOUTH EVERY DAY completed levothyroxin e sodium 0.05 MG Oral Tablet [facility]) olanzapine 15 MG Oral Tablet Olanzapine 15 Mg Tablet T ablet, 15 Mg Oral Olanzapine 15 Mg Tablet Tablet, 15 Mg Oral 15 completed At Bedtime [facility] atomoxetine 10 MG Oral Capsule atomoxeti ne 10 mg capsule TAKE TWO CAPSULES BY MOUTH EVERY DAY atomoxetine 10 mg capsule TAKE TWO CAPSULES BY MOUTH E VERY DAY completed atomoxetine 10 MG Oral Capsule [facility]) Divalproex Sodium 500 MG Delayed Release Oral Tablet divalproex 500 mg tablet,delayed release TAKE ONE TABLET BY MOUTH TWICE A DAY divalproex 500 mg tablet,delayed release TAKE ONE TABLET BY MOUTH TWICE A DAY completed divalproex sodium 500 MG Delayed Release Oral Tablet [facility] ([facility]) Trazodone Hydrochloride 100 MG Oral Tabl et trazodone 100 mg tablet TAKE ONE TABLET BY MOUTH AT BEDTIME trazodone 100 mg tablet TAKE ONE TABLET BY MOUTH AT BEDTIME completed trazodone hydr ochloride 100 MG Oral Tablet [facility] ([facility]) Docusate Sodium 100 MG Oral Capsule docu sate sodium 100 mg capsule TAKE TWO CAPSULES BY MOUTH EVERY DAY NEEDED docusate sodium 100 mg capsule TAKE TWO CAPSULES BY MOUTH EVERY DAY NEEDED completed docusate sodium 100 MG Oral Capsule [facility] ([facility]) 24 HR paliperidone 3 MG Extended Release Oral Tablet paliperidone ER 3 mg tablet,extended release 24 hr TAKE ONE TABLET BY MOUTH AT BEDTIME FOR ANTIPSYCHOTIC paliperidone ER 3 mg tablet,extended rel ease 24 hr TAKE ONE TABLET BY MOUTH AT BEDTIME FOR ANTIPSYCHOTIC completed 24 HR paliperidone 3 MG Extended Release Oral Tablet [place] ([facility]) Haloperidol 2 MG Oral Tablet haloperidol 2 mg tablet TAKE TWO TABLETS BY MOUTH THREE TIMES A DAY 8AM 1PM. AND 9PM haloperidol 2 mg tablet TAKE TWO TABLETS BY MOUTH THREE TIMES A DAY 8AM 1PM. AND 9PM completed haloperidol 2 MG Oral Tablet [place] ([facility]) benztropine mesylate 1 MG Oral Tablet be nztropine 1 mg tablet TAKE ONE TABLET BY MOUTH TWICE A DAY NEEDED benztropine 1 mg tablet TAKE ONE TABLET BY MOUTH TWICE A DAY NEEDED completed benztropine mesylate 1 MG Oral Tablet [place] ([facility]) Amitriptyline Hydrochloride 25 MG Oral T ablet amitriptyline 25 mg tablet TAKE ONE TABLET BY MOUTH AT BEDTIME amitriptyline 25 mg tablet TAKE ONE TABL ET BY MOUTH AT BEDTIME completed amitriptyline hydrochloride 25 MG Oral Tablet [facility] ([facility]) Loratadine 10 MG Oral Tablet loratadine 10 mg tablet TAKE ONE TABLET BY MOUTH EVERY DAY loratadine 10 mg tablet TAKE ONE TABLET BY MOUTH EVERY DAY completed loratadine 10 MG Oral Tablet [place] ([facility]) 24 HR paliperidone 6 MG Extended Release Oral Tablet paliperidone ER 6 mg tablet,extended release 24 hr TAKE ONE TABLET BY MOUTH EVERY MORNING paliperidone ER 6 mg tablet,extended release 24 hr TAKE ONE TABLET BY MOUTH EVERY MORNING completed 24 HR paliperidone 6 MG Extended Release Oral Tablet [facility] ([facility]) Buprenorphine 8 MG / Naloxone 2 MG Oral Strip [Suboxone] Buprenorphine Hcl/Naloxone Hcl (Suboxone 8 Mg-2 Mg Sl Film) 1 Each Film Film, 8 Mg Sublingual Buprenorphine Hcl/Naloxone Hcl (Suboxone 8 Mg-2 Mg Sl Film) 1 Each Film Film, 8 Mg Sublingual 8 completed Twice [facility]. atomoxetine 40 MG Oral Capsule atomoxeti ne 40 mg capsule TAKE ONE CAPSULE BY MOUTH EVERY DAY atomoxetine 40 mg capsule TAKE ONE CAPSULE BY MOUTH EVERY DA Y completed atomoxetine 40 MG Oral Capsule [facility] ([facility]) Risperidone 2 MG Oral Tablet risperidone 2 mg tablet TAKE ONE TABLET BY MOUTH AT BEDTIME risperidone 2 mg tablet TAKE ONE TABLET BY MOUTH AT BEDTIME completed risperidone 2 MG Oral Tablet [place] ([facility]) Mirtazapine 15 MG Oral Tablet mirtazapine 15 mg tablet christine zapine 15 mg tablet completed mirtazapine 15 MG Oral Tablet [place] ([facility]) 24 HR Oxybutynin chloride 5 MG Extended Release Oral Tablet oxybutynin chloride ER 5 mg tablet,extended release 24 hr TAKE ONE TABLET BY MOUTH EVERY DAY oxybutynin chloride ER 5 mg tablet,extended release 24 hr TAKE ONE TABLET BY MOUTH EVERY DAY completed 24 HR oxybutynin chloride 5 MG Extended Release Oral Tablet [place] ([facility]) doxycycline hyclate 100 MG Oral Tablet d oxycycline hyclate 100 mg tablet TAKE ONE TABLET BY MOUTH TWICE A DAY doxycycline hyclate 100 mg tablet TAKE O NE TABLET BY MOUTH TWICE A DAY completed doxycycline hyclate 100 MG Oral Tablet [facility] ([facility]) gabapentin 300 MG Oral Capsule gabapenti n 300 mg capsule TAKE ONE CAPSULE BY MOUTH TWICE A DAY gabapentin 300 mg capsule TAKE ONE CAPSU LE BY MOUTH TWICE A DAY completed gabapentin 300 M G Oral Capsule [place] ([facility]) olanzapine 10 MG Oral Tablet olanzapine 10 mg tablet TAKE ONE HALF 0.5 TABLET BY MOUTH EVERY IN THE MORNING AND ONE 1 TABLET AT BEDTIME olanzapine 10 mg tablet TAKE ONE HALF 0.5 TABLET BY MOUTH EVERY IN THE MORNING AND ONE 1 TABLET AT BEDTIME completed emy zapine 10 MG Oral Tablet [place] ([facility]) Fluoxetine 10 MG Oral Capsule fluoxetine 10 mg capsule TAKE ONE CAPSULE BY MOUTH EVERY MORNING fluoxetine 10 mg capsule TAKE ONE CAPSULE BY MOUTH DILIA RY MORNING completed fluoxetine 10 MG Oral Capsule [facility] ([facility]) olanzapine 5 MG Oral Tablet olanzapine 5 mg tablet TAKE ONE TABLET BY MOUTH EVERY MORNING AT 8AM olanzapine 5 mg tablet TAKE ONE TABLET B Y MOUTH EVERY MORNING AT 8AM completed olanza pine 5 MG Oral Tablet [facility] ([facility]) Prazosin 1 MG Oral Capsule prazosin 1 mg capsule TAKE ONE CAPSULE BY MOUTH AT BEDTIME prazosin 1 mg capsule TAKE ONE CAPSULE BY MOUTH AT BEDTIME completed prazosin 1 MG Oral Capsule ATH A ([facility]) gabapentin 400 MG Oral Capsule gabapenti n 400 mg capsule TAKE ONE CAPSULE BY MOUTH FOUR TIMES A DAY gabapentin 400 mg capsule TAKE ONE CAPSU LE BY MOUTH FOUR TIMES A DAY completed gabapentin 400 MG Oral Capsule [place] ([facility]) Sertraline 25 MG Oral Tablet sertraline 25 mg tablet TAKE ONE TABLET BY MOUTH EVERY MORNING sertraline 25 mg tablet TAKE ONE TABLET BY MOUTH EVERY MORNI NG completed sertraline 25 MG Oral Tablet [place] ([facility]) olanzapine 5 MG Disintegrating Oral Tabl et olanzapine 5 mg disintegrating tablet DISSOLVE ONE TABLET UNDER THE TONGUE EVERY DAY NEEDED FOR ANXIETY AGITATIONS olanzapine 5 mg disintegrating tablet DI SSOLVE ONE TABLET UNDER THE TONGUE EVERY DAY NEEDED FOR ANXIETY AGITATIONS completed olanzapine 5 MG Disintegrating Oral Tablet SUSI ([facility]) Naproxen 500 MG Oral Tablet naproxen 500 mg tablet TAKE ONE TABLET BY MOUTH TWICE A DAY AT 6AM AND 6PM naproxen 500 mg tablet TAKE ONE TABLET B Y MOUTH TWICE A DAY AT 6AM AND 6PM completed naproxen 500 MG Oral Tablet SUSI ([facility]) Docusate Sodium 100 MG Oral Capsule [Col gopi] Docusate Sodium (Colace) 100 Mg Capsule Capsule, 100 Mg Oral Docusate Sodium (Colace) 100 Mg Capsule Capsule, 100 Mg Oral 100 completed Three Time s a Day as needed [facility]. Divalproex Sodium 250 MG Delayed Release Oral Tablet divalproex 250 mg tablet,delayed release TAKE ONE TABLET BY MOUTH TWICE A DAY divalproex 250 mg tablet,delayed release TAKE ONE TABLET BY MOUTH TWICE A DAY completed divalproex sodium 250 MG Delayed Release Oral Tablet [facility] ([facility]) topiramate 25 MG Oral Tablet topiramate 25 mg tablet TAKE TWO TABLETS BY MOUTH TWICE A DAY FOR HEADACHE topiramate 25 mg tablet TAKE TWO TABLETS BY MOUTH TWICE A DAY FOR HEADACHE completed to piramate 25 MG Oral Tablet [facility] ([facility]) Prazosin 2 MG Oral Capsule prazosin 2 mg capsule TAKE ONE CAPSULE BY MOUTH AT BEDTIME prazosin 2 mg capsule TAKE ONE CAPSULE BY MOUTH AT BEDTIME completed prazosin 2 MG Oral Capsule ATHEN A ([facility]) topiramate 50 MG Oral Tablet [Topamax] Topamax 50 mg t ablet Topamax 50 mg tablet completed topiramate 50 MG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 Interpretation Code Description Data Kassy rce(s) Supporting Document(s) Opiate Screen,Urine Negative Normal (applies to non-nume claudia results) [facility] Amphetamine Screen,Urine Negative [facility] Benzodiazepines Scrn,Ur result Negative N ormal (applies to non-numeric results) [facility] Cocaine Screen,Urine Negative Normal (applies to non-num clementine results) [facility] Methadone Screen,Urine Negative Normal (applies to non-n umeric results) [facility] Cannabinoid Screen, Ur Negative [facility] Therapeutic Drug Ranges for Emergency an d Rehabilitation Threshold Levels (ng/mL) Cocaine 300 Opiates 300 Cannabinoids 50 Barbiturates 200 Benzodiazepine 200 Methadone 300 Amphetamines 1000 All positive findings are presumptive and unconfirmed. Confirmation of positive results are performed only at request of provider. Unconfirmed results must not be used for non-medical purposes (i.e. pre-employment and legal purposes) ID Date Data Source [id number] 01/27/2021 02:00:00 PM EDT [facility] Name Value Range Interpretation Code Description Data Kassy rce(s) Supporting Document(s) Respiratory specimen severe acute respir atory syndrome coronavirus 2 (SARS-CoV-2) RNA Negative (qualifier value) [facility] This lab was ordered by [facility] lola and reported by [facility]. ID Date Data Source [id number] 01/27/2021 02:35:00 PM EDT [facility] Negative results should be treated as [...] Certificate of Accreditation. Factsheets for healthcare providers: https://www.fda.gov/media/292533/download Factsheets for patients: https://www.fda.gov/media/024598/download The ID NOW Instrument is a rapid molecular in vitro diagnostic test utilizing an isothermal nucleic acid amplification technology intended for the qualitative detection of nucleic acid from the SARS-CoV-2 viral RNA. THIS IS A STATE REPORTABLE COMMUNICABLE DISEASE. Manual entry verified by Jessika Villareal 01/27/21 1435 Test Performed By: [facility] [address] [place] [address] Director: Trinidad Zarco MD Name Value Range Interpretation Code Description Data Kassy rce(s) Supporting Document(s) ID Date Data Source [id number] 01/18/2021 01:26:00 PM EDT [facility]. DISCHARGE SUMMARY, ADULTDischarge Diagno sis1. Opiate abuse, continuous2. Hypotension, chronicPreceding HistoryPreceding history / Reason for [id number] female who presented today for getting detox done. She usesheroin 1 bundle per day, last use was at 6 a.m. today, Sylvie 1-2 gram aday, last use was 1 week ago, meth 1-2 gram daily and with last use 2days ago, cannabis daily a couple of buffy. Today prior to coming [facility], the patient took multiple pills of [...] schizoaffecivedisorder, bipolar, anxiety and depression [facility]. Patient attempted [...] she can go to inpatient rehab at [facility] on 01/22. Marilynn entendorsed that [...] Provider, [facility] 1 [facility]:NONENursing Appointments ScheduledOther Follow up with:PT IS TO HAVE INPT REHAB AT [facility] 01/22/21KRISITN COUNCELOR TO CALL [facility] TO PROVIDE ADESIGNATED TIME FOR ARRIVALMEDICATIONSMedication ReconciledBuprenorphine HCl/Naloxone HCl(Suboxone 8 MG-2 MG Sl Film) 1 EACH FILM 8 MG SL BID 5 Days #10 FILM,Ref 0Prescribed by Kena Chowdhury, on 01/18/21Last Action: No Recorded ActionDocusate Sodium(Colace) 100 MG CAPSULE 200 MG PO DAILY PRN 5 Days #10 TAB, Ref 0Prescribed by Kena Chowdhury, on 01/18/21Last Action: No Recorded ActionDoxycycline Isoytus810 MG TABLET 100 MG PO BID 10 Days #20 TAB, Ref 0Prescribed by Kena Chowdhury, on 01/18/21Last Action: No Recorded IulheyVelctgiwks155 MG TABLET 600 MG PO TID 5 Days #15 TAB, Ref 0Prescribed by Kena Chowdhury, on 01/18/21Last Action: No Recorded BfsukvUqihhsnavsa81 MG TABLET 15 MG PO HS 5 Days #5 TAB, Ref 0Prescribed by Kena Chowdhury, on 01/18/21Last Action: No Recorded ActionMulti-Vit/Mineral(Multivitamin Tablet) 1 TAB TAB 1 TAB PO DAILY 5 Days #5 TAB, Ref 0Prescribed by Kena Chowdhury, on 01/18/21Last Action: No Recorded HfhbygEndtdwupwj20 MG TABLET 15 MG PO HS 5 [...] is following - inpatient bed available at [facility] on 01/22.2. Gabapentin overdose. Poison [...] prophylaxis: Early ambulationDispo: Inpatient bed available at [facility] on 01/22. Stable for discharge andwill stay with her stepdad.Time spent60 MinutesDictated on 01/18/21 1326 by Kena Chowdhury DOTranscribed on 01/18/21 1326 by Kena Chowdhury DOSign by Kena Chowdhury DO on 01/18/21 1404Sign by: Kena Chowdhury DO Name Value Range Interpretation Code Description Data Kassy rce(s) Supporting Document(s) ID Date Data Source [id number] 01/17/2021 02:41:00 PM EDT [facility]. Counselor Progress NotePatient NoteCOUNS LIZA SPOKE WITH ABOUT CARE AFTER BEING DISCHARGED, PATIENT TOLDDR [...] 01/22/21 WHEN HER BED IS OPEN AT [facility] REHAB. ALSO COUNSELOR SET UPTANSPORTATION FOR PATIENT SHE COULD NOT GET A RIDE HOME. SO HER RIDEWILL BE HERE TOMORROW AT 1:00 PM AFTER SHE IS DISCHARGED.Dictated on 01/17/21 1441 by Cherrie,TriciaTranscribed on 01/17/21 1441 by Cherrie,TriciaSign by Cherrie,Nuzhat on 01/17/21 1446Sign by: Cherrie,Nuzhat Name Value Range Interpretation Code Description Data Kassy rce(s) Supporting Document(s) ID Date Data Source [id number] 01/17/2021 11:27:00 AM EDT [facility]. Counselor Progress NotePatient NoteDRWang Murphy ELVIS IN TO TALK TO COUNSELOR ABOUT PATIENT AND HER BEING DISCHARGEDAND HER AFTER PLANS. COUNSELOR CALLED [facility] AND TALKED TOA EPIC TRAINER ABOUT PATIENT GOING THERE ONLY TO FIND OUT THAT IT'S A DETOXCENTER WELL. COUNSELOR HAD GONE TO TALK TO THE DR ABOUT [facility] TO LET HIM KNOW WHAT SHE HAD FOUND OUT. TOLD COUNSELOR THAT EVIE TALKED TO PATIENT ABOUT HER STAYING WITH HER STEPDAD UNTIL HER BEDWAS READY AT [facility] ON 01/22/21. SO COUNSELOR WENT TO TALK TO PATIENT TO MAKESURE THAT IS WHAT SHE WANTED AND MADE SURE THAT THE STEPDAD WAS ON THECAL LIST CONSENT FORM, WHICH HE WAS. COUNSELOR HAD CALLED [facility] AND HEDIDN'T ANSWER BUT SHE HAD LEFT A VOICEMESSAGE FOR HIM TO CALL HER BACK.COUNSELOR WILL UP DATE WITH THE AFTER PLANS WHEN HE RETURNS HER CALL.Dictated on 01/17/21 1127 by Cherrie,TriciaTranscribed on 01/17/21 1127 by Cherrie,TriciaSign by Cherrie,Nuzhat on 01/17/21 1133Sign by: CherrieNuzhat Name Value Range Interpretation Code Description Data Kassy rce(s) Supporting Document(s) ID Date Data Source [id number] 01/17/2021 10:19:00 AM EDT [employer] Counselor Progress NotePatient NoteCOUNS ELOR WENT TO [...] 1019 by Cherrie,TriciaTranscribed on 01/17/21 1019 by Kyra GrieriaSign by Cherrie,Nuzhat on 01/17/21 1023Sign by: Nuzhat Grier Name Value Range Interpretation Code Description Data Kassy rce(s) Supporting Document(s) ID Date Data Source [id number] 01/17/2021 06:53:00 AM EDT [employer] Provider Short NotePatient NoteCalled by RN that patient has left AC area swelling. Patient was seen.She has small area of cellulitis in the left AC area. Will treat withp.o. cephalexin.Dictated on 01/17/2153 by Arcelia Tate M.D.Transcribed on 01/17/21652 by Arcelia TateSign by Arcelia Tate M.D. on 01/19/215Sign by: Arcelia Tate M.D. Name Value Range Interpretation Code Description Data Kassy rce(s) Supporting Document(s) ID Date Data Source [id number] 01/16/2021 03:24:00 PM EDT [employer] Counselor Progress NotePatient NoteCOUNS ELOR WENT BY TO SEE PATIENT TO SEE HOW SHE WAS DOING AND SHE WASSLEEPING. COUNSELOR TRIED TO WAKE HER UP BUT SHE WOULDN'T. SO COUNSELORLEFT BACK TO HER OFFICE.Dictated on 01/16/21 1524 by Cherrie,TriciaTranscribed on 01/16/21 1524 by Rob Grier by Nuzhat Grier on 01/16/21 1526Sign by: Nuzhat Grier Name Value Range Interpretation Code Description Data Kassy rce(s) Supporting Document(s) ID Date Data Source [id number] 01/16/2021 02:08:00 PM EDT [employer] Counselor Progress NotePatient Dominic DE JESUS [...] on 01/16/21 1408 by Cherrie,TriciaTranscribed on 01/16/21 140 by Cherrie,TriciaSign by Cherrie,Nuzhat on 01/16/21 1413Sign by: Cherrie,Nuzhat Name Value Range Interpretation Code Description Data Kassy rce(s) Supporting Document(s) ID Date Data Source [id number] 01/16/2021 02:04:00 PM EDT [employer] Counselor Progress NotePatient NoteCHUYITA DE JESUS WENT AND CHECKED IN ON PATIENT THIS MORNING, SHE WAS UP BUTLAYING DOWN. COUSNELOR ASKED HOW SHE WAS DOING SHE SAID SHE WAS VERYTIRED. COUNSELOR ASKED HER WHY, WAS SHE NOT SLEEPING WELL? PATIENTREPLIED THAT SHE WASN'T SLEEPING GOOD AT NIGHT. SO COUNSELOR LEFT TO LETHER GET SOME REST.Dictated on 01/16/21 140 by Cherrie,TriciaTranscribed on 01/16/21 1404 by Cherrie,TriciaSign by Cherrie,Nuzhat on 01/16/21 1408Sign by: Cherrie,Nuzhat Name Value Range Interpretation Code Description Data Kassy rce(s) Supporting Document(s) ID Date Data Source [id number] 01/15/2021 04:16:00 PM EDT [employer] Counselor Progress NotePatient NoteCOTASHA RAMIRES FABI, MS, CASAC-T, ENTERED THE PATIENT'S ROOM. SHEWAS ASLEEP. COUNSELOR NOTED HER TO SKIN COLOR TO BE PALE AND SHE WASSWEATING AND HER MOUTH WAS OPEN. COUNSELOR CONSULTED WITH MANDY, RN. SHEREPORTED PATIENT DID NOT SLEEP LAST NIGHT OR EAT YESTERDAY. SHE REPORTEDPATIENT ATE ABOUT 30% OF HER LUNCH AND THEN HAS BEEN ASLEEP SINCE THATTIME.Dictated on 01/15/21 161 by Sydnie BlasTranscribed on 01/15/21 1616 by Zach Blas by Sydnie Blas on 01/15/21 1618Sign by: Sydnie Blas Name Value Range Interpretation Code Description Data Kassy rce(s) Supporting Document(s) ID Date Data Source [id number] 01/15/2021 01:59:00 PM EDT [employer] [facility] Counselor Progress NotePatient NoteBETHANIE HUGO [facility], CONFIRMED A 4 WEEK WAIT LIST FOR THEIRINPATIENT FACILITY FOR WOMEN.Dictated on 01/15/21 1359 by Sydnie BlasTranscribed on 01/15/21 1359 by Zach Blas by Sydnie Blas on 01/15/21 1400Sign by: Sydnie Blas Name Value Range Interpretation Code Description Data Kassy rce(s) Supporting Document(s) ID Date Data Source [id number] 01/15/2021 01:36:00 PM EDT [employer] [facility] Counselor Progress NotePatient NoteCONFI RMED BED AT [facility] 01/22/21 - ADMISSION TIME PENDING.Dictated on 01/15/21 1336 by Sydnie BlasTranscribed on 01/15/21 1336 by Zach Blas by Sydnie Blas on 01/15/21 1337Sign by: Sydnie Blas Name Value Range Interpretation Code Description Data Kassy rce(s) Supporting Document(s) ID Date Data Source [id number] 01/14/2021 03:22:00 PM EDT [employer] [facility] Counselor Progress NotePatient NoteCOUNS ELOR HAD WENT TO SEE IF PATIENT WAS [...] Cherrie,TriciaSign by Cherrie,Nuzhat on 01/14/21 1525Sign by: Cherrie,Nuzhat Name Value Range Interpretation Code Description Data Kassy rce(s) Supporting Document(s) ID Date Data Source [id number] 01/14/2021 03:00:00 PM EDT [facility]. Counselor Progress NotePatient NoteCOTASHA DE JESUS WENT TO SEE IF PATIENT WAS UP TO DO EVALUATION AND SHE WASSLEEPING.Dictated on 01/14/21 1500 by Cherrie,TriciaTranscribed on 01/14/21 1500 by Cherrie,TriciaSign by Cherrie,Nuzhat on 01/14/21 1501Sign by: Cherrie,Nuzhat Name Value Range Interpretation Code Description Data Kassy rce(s) Supporting Document(s) ID Date Data Source [id number] 01/14/2021 01:44:00 PM EDT [employer] Counselor Progress NotePatient Dominic DE JESUS WENT INTO PATIENTS ROOM AT 12:30 TO DO THE EVALUATION, THEPATIENT WAS SLEEPING SO COUNSELOR HAD LEFT THE PATIENT TO SLEEP.COUNSELOR CAME BACK TO HER OFFICE AND REPORTED PATIENT STATUS TO ALFREDA.NURSING EPIC TRAINER, SABINE PECK, WOKE THE PATIENT AND REQUESTED [...] 1344 by Cherrie,TriciaTranscribed on 01/14/21 1344 by Cherrie,TriciaSign by Cherrie,Nuzhat on 01/14/21 1355Sign by: Cherrie,Nuzhat Name Value Range Interpretation Code Description Data Kassy rce(s) Supporting Document(s) ID Date Data Source [id number] 01/14/2021 09:26:00 AM [facility] Counselor Progress NotePatient NoteCOUNS LIZA ALONG WITH RATING EXAMINER WENT INTO PATIENTS ROOM AND ASKED HOW SHE WASDOING. PATIENT RESPONDED SHE WAS DOING OK. COUNSELOR INFORMED PATIENTTHAT SHE WAS HERE IF SHE NEEDED HER TO TALK OR ANYTHING.Dictated on 01/14/21925 by Cherrie,TriciaTranscribed on 01/14/21925 by Cherrie,TriciaSign by Cherrie,Nuzhat on 01/14/2133Sign by: Cherrie,Nuzhat Name Value Range Interpretation Code Description Data Kassy rce(s) Supporting Document(s) ID Date Data Source [id number] 01/13/2021 04:10:00 PM EDT [facility] Name Value Range Interpretation Code Description Data Kassy rce(s) Supporting Document(s) SARS-CoV-2 (COVID-19) RNA [Presence] in Respiratory specimen by IRIS with probe detection Negative; No COVID-2 RNA detected by PCR. [facility] This lab was ordered by [facility] and reported by . ID Date Data Source [id number] 12/08/2020 03:19:00 PM EDT [facility]) Name Value Range Interpretation Code Description Data Kassy rce(s) Supporting Document(s) influenza A amplification negative negative Influenza a Amplification [facility]) influenza B amplification negative negative Influenza B Amplification [facility]) RSV amplification negative negative RSV Amplification [facility]) sars covid-19 amplification negative negative Sars Cov id-19 Amplification [facility]) ID Date Data Source [id number] 12/08/2020 03:19:00 PM EDT [facility] Name Value Range Interpretation Code Description Data Kassy rce(s) Supporting Document(s) SARS coronavirus 2 RNA [Presence] in Res piratory specimen by IRIS with probe detection NEGATIVE [facility] This lab was ordered by [facility] a nd reported by [facility]. ID Date Data Source [id number] 12/08/2020 09:19:00 AM EDT [place] ([facility]) Name Value Range Interpretation Code Description Data Kassy rce(s) Supporting Document(s) thyroid stimulating hormone 1.050 uIU/mL 0.358-3.740 Thyroid Stimulating Hormone [place] ([facility]) ID Date Data Source [id number] 12/08/2020 09:19:00 AM EDT [place] ([facility]) Name Value Range Interpretation Code Description Data Kassy rce(s) Supporting Document(s) acetaminophen level < 2.0 10.0-30.0 Below low normal Acetaminop hen Level [facility]) ID Date Data Source [id number] 12/08/2020 09:19:00 AM EDT [place] ([facility]) Name Value Range Interpretation Code Description Data Kassy rce(s) Supporting Document(s) salicylate level 2.7 mg/dL 5.0-30.0 Below low normal Salicylate Le jose [facility]) ID Date Data Source [id number] 12/08/2020 09:19:00 AM EDT [place] ([facility]) Name Value Range Interpretation Code Description Data Kassy rce(s) Supporting Document(s) ethyl alcohol (ethanol) < 0.003 0.000-0.010 Ethyl Alcoh ol (Ethanol) [place] ([facility]) ID Date Data Source [id number] 12/08/2020 09:19:00 AM EDT [facility]) Name Value Range Interpretation Code Description Data Kassy rce(s) Supporting Document(s) glucose, fasting 93 mg/dL 70-100 Glucose, Fasting AT JIM ([facility]) blood urea nitrogen 10 mg/dL 7-18 Blood Urea Nitro gen SUSI ([facility]) creatinine for GFR 0.61 mg/dL 0.55-1.30 Creatinine for GF R [facility] ([facility]) glomerular filtration rate > 60.0 >60 Glomerula r Filtration Rate [facility] ([facility]) sodium level 140 mEq/L 136-145 Sodium Level [facility] ([facility]) chloride level 111 mEq/L 98-107 Above high normal Chloride Level [facility] ([facility]) potassium serum 4.1 mEq/L 3.5-5.1 Potassium Serum ATHE NA ([facility]) anion gap 7 mEq/L 8-16 Below low normal Anion Gap [facility]I ( [facility]) calcium level 9.9 mg/dL 8.5-10.1 Calcium Level SUSI ( [facility]) carbon dioxide level 22 mEq/L 21-32 Carbon Dioxide Level [facility] ([facility]) ID Date Data Source [id number] 12/08/2020 09:19:00 AM EDT [place] ([facility]) Name Value Range Interpretation Code Description Data Kassy rce(s) Supporting Document(s) AST/SGOT 28 U/L 7-37 AST/SGOT [facility] ([facility]) alkaline phosphatase 90 U/L 45-117 Alkaline Phosph atase [facility] ([facility]) ALT/SGPT 26 U/L 12-78 ALT/SGPT [facility] ([facility]) bilirubin,total 0.3 mg/dL 0.2-1.0 Bilirubin,total ATHE NA ([facility]) bilirubin,direct < 0.1 0.0-0.2 Bilirubin,direct AT [facility] ([facility]) albumin 3.9 gm/dL 3.2-5.2 Albumin SUSI ([facility]) total protein 8.4 gm/dL 6.4-8.2 Above high normal Total Protein A THENA ([facility]) albumin/globulin ratio 1.2-2.2 Below low normal Albumin /globulin Ratio SUSI ([facility]) ID Date Data Source [id number] 12/08/2020 09:19:00 AM EDT [place] ([facility]) Name Value Range Interpretation Code Description Data Kassy rce(s) Supporting Document(s) white blood count 9.1 10 4.0-10.0 White Blood Count [facility] ([facility]) red blood count 4.31 10 4.00-5.40 Red Blood Count ATHE ([facility]) hemoglobin 12.8 g/dL 12.0-15.5 Hemoglobin SUSI ([facility]) hematocrit 39.2 % 36.0-47.0 Hematocrit SUSI ([facility]) mean corpuscular volume 91.0 fL 80.0-96.0 Mean Corpusc ular Volume SUSI ([facility]) mean corpuscular hemoglobin 29.7 pg 27.0-33.0 Mean Cor puscular Hemoglobin [facility]I ([facility]) mean corpuscular HGB conc 32.7 g/dL 32.0-36.5 Mean Corpu scular HGB Conc S[facility]I ([facility]) platelet count, automated 276 10 150-450 Platelet C ount, Automated [facility] ([facility]) red cell distribution width 13.7 % 11.5-14.5 Red Cell Distribution Width [facility] ([facility]) nucleated red blood cell % 0.0 % 0-0 Nucleated Red Blood Cell % [facility] ([facility]) ID Date Data Source [id number] 12/08/2020 08:11:00 AM EDT SUSI ([facility]) Name Value Range Interpretation Code Description Data Kassy rce(s) Supporting Document(s) amphetamines level urine positive negative Above high andrea l Amphetamines Level Urine S[facility]I ([facility]) barbiturates urine negative negative Barbiturates Urin e [facility]USI ([facility]) benzodiazepines urine negative negative Benzodiazepine s Urine SUSI ([facility]) cannabinoids urine positive negative Above high normal Cannabinoi ds Urine SUSI ([facility]) cocaine metabolite urine negative negative Cocaine Met abolite Urine SUSI ([facility]) opiates urine negative negative Opiates Urine SUSI ( [facility]) methadone urine negative negative Methadone Urine ATHE NA ([facility]) phencyclidine urine negative negative Phencyclidine Ur ine [facility]I ([facility]) ID Date Data Source [id number] 12/07/2020 09:14:00 AM EDT SUSI ([facility]) Name Value Range Interpretation Code Description Data Kassy rce(s) Supporting Document(s) istat troponin 0.01 NG/mL 0.00-0.08 Istat Troponin [facility]I ([facility]) ID Date Data Source [id number] 12/07/2020 09:12:00 AM EDT SUSI ([facility]) Name Value Range Interpretation Code Description Data Kassy rce(s) Supporting Document(s) istat HCT 38.0 % 38.0-51.0 Istat HCT [facility] ([facility]) istat sodium 138 mEq/L 136-145 Istat Sodium [facility]I ([facility]) istat glucose 111 mg/dL 70-105 Above high normal Istat Glucose A [facility]) istat Ca++ 4.7 mg/dL 4.5-5.3 Istat Ca++ [facility] ([facility]) istat potassium 3.9 mEq/L 3.5-5.1 Istat Potassium ATHE NA ([facility]) istat CO2 23.0 mm/L 23.0-27.0 Istat CO2 [facility] ([facility]) istat chloride 105 mEq/L 98-109 Istat Chloride [facility]I ([facility]) istat BUN 9 mg/dL 8-26 Istat BUN [facility]USI ([facility]) istat creatinine 0.6 mg/dL 0.6-1.3 Istat Creatinine AT [facility]) ID Date Data Source [id number] 12/01/2020 03:02:00 AM EDT [facility] Name Value Range Interpretation Code Description Data Kassy rce(s) Supporting Document(s) SARS coronavirus 2 RNA [Presence] in Res piratory specimen by IRIS with probe detection NEGATIVE [facility] This lab was ordered by [facility] a nd reported by [facility]. ID Date Data Source [id number] 09/15/2020 03:35:50 PM EST [facility] ([facility]) Name Value Range Interpretation Code Description Data Kassy rce(s) Supporting Document(s) Color: yellow; Glucose: nega tive; Blood: small; pH: 6.0; Protein: small; Nitrite: positive; Leukocytes: moderate Abnormal (appl ies to non-numeric results) [facility] ID Date Data Source [id number] 09/15/2020 03:35:12 PM EST [facility] ([facility]) Name Value Range Interpretation Code Description Data Kassy rce(s) Supporting Document(s) NegativeLot: [id number]: 03/31/2022 High Sensitivity Urine Test [facility] ([facility]) ID Date Data Source [id number] 06/02/2020 02:08:00 PM EST [place] ([facility]) Name Value Range Interpretation Code Description Data Kassy rce(s) Supporting Document(s) alkaline phosphatase 75 U/L 45-117 Alkaline Phosph atase [facility]I ([facility]) ALT/SGPT 74 U/L 12-78 ALT/SGPT [facility] ([facility]) AST/SGOT 58 U/L 7-37 Above high normal AST/SGOT [facility] ([facility]) total protein 7.7 gm/dL 6.4-8.2 Total Protein SUSI ( [facility]) bilirubin,total 0.4 mg/dL 0.2-1.0 Bilirubin,total ATHE ([facility]) bilirubin,direct 0.1 mg/dL 0.0-0.2 Bilirubin,direct AT JIM ([facility]) albumin/globulin ratio 1.2-2.2 Below low normal Albumin /globulin Ratio [facility]I ([facility]) albumin 3.7 gm/dL 3.2-5.2 Albumin [facility]I ([facility]) ID Date Data Source [id number] 06/02/2020 02:08:00 PM EST [facility]I ([facility]) Name Value Range Interpretation Code Description Data Kassy rce(s) Supporting Document(s) amphetamines level urine positive negative Above high andrea l Amphetamines Level Urine [facility] ([facility]) benzodiazepines urine negative negative Benzodiazepine s Urine [facility] ([facility]) barbiturates urine negative negative Barbiturates Urin e [facility]I ([facility]) cannabinoids urine positive negative Above high normal Cannabinoi ds Urine [facility]I ([facility]) cocaine metabolite urine negative negative Cocaine Met abolite Urine [facility]I ([facility]) methadone urine positive negative Above high normal Methadone Uri ne [facility]I ([facility]) phencyclidine urine negative negative Phencyclidine Ur ine [facility]I ([facility]) opiates urine positive negative Above high normal Opiates Urine A [facility] ([facility]) ID Date Data Source [id number] 06/02/2020 02:08:00 PM EST [facility] ([facility]) Name Value Range Interpretation Code Description Data Kassy rce(s) Supporting Document(s) white blood count 5.8 10 4.0-10.0 White Blood Count [facility] ([facility]) red blood count 3.95 10 4.00-5.40 Below low normal Red Blood Coun t S[facility]I ([facility]) hemoglobin 12.2 g/dL 12.0-15.5 Hemoglobin [facility] ([facility]) mean corpuscular volume 94.2 fL 80.0-96.0 Mean Corpusc ular Volume [facility] ([facility]) hematocrit 37.2 % 36.0-47.0 Hematocrit [facility] ([facility]) mean corpuscular hemoglobin 30.9 pg 27.0-33.0 Mean Cor puscular Hemoglobin [facility] ([facility]) mean corpuscular HGB conc 32.8 g/dL 32.0-36.5 Mean Corpu scular HGB Conc [facility] ([facility]) red cell distribution width 12.8 % 11.5-14.5 Red Cell Distribution Width [facility] ([facility]) nucleated red blood cell % 0.0 % 0-0 Nucleated Red Blood Cell % [facility] ([facility]) platelet count, automated 195 10 150-450 Platelet C ount, Automated [facility] ([facility]) ID Date Data Source [id number] 06/02/2020 02:08:00 PM EST [place] ([facility]) Name Value Range Interpretation Code Description Data Kassy rce(s) Supporting Document(s) HCG, serum qualitative negative negative HCG, Serum Qu [facility] ID Date Data Source [id number] 06/02/2020 02:08:00 PM EST [place] ([facility]) Name Value Range Interpretation Code Description Data Kassy rce(s) Supporting Document(s) thyroid stimulating hormone 1.690 uIU/mL 0.358-3.740 Thyroid Stimulating Hormone [place] ([facility]) ID Date Data Source [id number] 06/02/2020 02:08:00 PM EST [facility]USI ([facility]) Name Value Range Interpretation Code Description Data Kassy rce(s) Supporting Document(s) acetaminophen level < 2.0 10.0-30.0 Below low normal Acetaminop hen Level [facility]) ID Date Data Source [id number] 06/02/2020 02:08:00 PM EST [place] ([facility]) Name Value Range Interpretation Code Description Data Kassy rce(s) Supporting Document(s) salicylate level < 1.7 5.0-30.0 Below low normal Salicylate Le jose [place] ([facility]) ID Date Data Source [id number] 06/02/2020 02:08:00 PM EST [place] ([facility]) Name Value Range Interpretation Code Description Data Kassy rce(s) Supporting Document(s) ethyl alcohol (ethanol) < 0.003 0.000-0.010 Ethyl Alcoh ol (Ethanol) [place] ([facility]) ID Date Data Source [id number] 06/02/2020 02:08:00 PM EST [place] ([facility]) Name Value Range Interpretation Code Description Data Kassy rce(s) Supporting Document(s) creatinine for GFR 0.71 mg/dL 0.55-1.30 Creatinine for GF R [facility]) blood urea nitrogen 7 mg/dL 7-18 Blood Urea Nitro gen [place] ([facility]) glucose, fasting 82 mg/dL 70-100 Glucose, Fasting AT [facility]) glomerular filtration rate > 60.0 >60 Glomerula r Filtration Rate [place] ([facility]) sodium level 139 mEq/L 136-145 Sodium Level [place] ([facility]) potassium serum 3.6 mEq/L 3.5-5.1 Potassium Serum ATH NA ([facility]) anion gap 6 mEq/L 8-16 Below low normal Anion Gap [place] ( [facility]) carbon dioxide level 24 mEq/L 21-32 Carbon Dioxide Level [place] ([facility]) chloride level 109 mEq/L 98-107 Above high normal Chloride Level [place] ([facility]) calcium level 8.8 mg/dL 8.5-10.1 Calcium Level [facility]) ID Date Data Source [id number] 06/01/2020 01:01:00 PM EST [facility]) Name Value Range Interpretation Code Description Data Kassy rce(s) Supporting Document(s) amphetamines level urine positive negative Above high andrea l Amphetamines Level Urine [facility]I ([facility]) cocaine metabolite urine positive negative Above high andrea l Cocaine Metabolite Urine [facility]I ([facility]) cannabinoids urine positive negative Above high normal Cannabinoi ds Urine [facility]I ([facility]) benzodiazepines urine negative negative Benzodiazepine s Urine [facility] ([facility]) barbiturates urine negative negative Barbiturates Urin e [facility] ([facility]) phencyclidine urine negative negative Phencyclidine Ur ine [facility] ([facility]) methadone urine positive negative Above high normal Methadone Uri ne [facility] ([facility]) opiates urine positive negative Above high normal Opiates Urine A [facility] ([facility]) ID Date Data Source [id number] 06/01/2020 01:01:00 PM EST [facility] ([facility]) Name Value Range Interpretation Code Description Data Kassy rce(s) Supporting Document(s) HCG, serum qualitative negative negative HCG, Serum Qu alitative [facility] ([facility]) ID Date Data Source [id number] 06/01/2020 01:01:00 PM EST [facility] ([facility]) Name Value Range Interpretation Code Description Data Kassy rce(s) Supporting Document(s) thyroid stimulating hormone 4.060 uIU/mL 0.358-3.740 Above high no rmal Thyroid Stimulating Hormone [facility] ([facility]) ID Date Data Source [id number] 06/01/2020 01:01:00 PM EST [facility] ([facility]) Name Value Range Interpretation Code Description Data Kassy rce(s) Supporting Document(s) acetaminophen level < 2.0 10.0-30.0 Below low normal Acetaminop hen Level [facility] ([facility]) ID Date Data Source [id number] 06/01/2020 01:01:00 PM EST [facility] ([facility]) Name Value Range Interpretation Code Description Data Kassy rce(s) Supporting Document(s) salicylate level < 1.7 5.0-30.0 Below low normal Salicylate Le jose [facility] ([facility]) ID Date Data Source [id number] 06/01/2020 01:01:00 PM EST [facility] ([facility]) Name Value Range Interpretation Code Description Data Kassy rce(s) Supporting Document(s) ethyl alcohol (ethanol) < 0.003 0.000-0.010 Ethyl Alcoh ol (Ethanol) [place] ([facility]) ID Date Data Source [id number] 06/01/2020 01:01:00 PM EST [facility] ([facility]) Name Value Range Interpretation Code Description Data Kassy rce(s) Supporting Document(s) glucose, fasting 129 mg/dL 70-100 Above high normal Glucose, Fas ting [place] ([facility]) blood urea nitrogen 12 mg/dL 7-18 Blood Urea Nitro gen [place] ([facility]) creatinine for GFR 0.83 mg/dL 0.55-1.30 Creatinine for GF R [place] ([facility]) sodium level 136 mEq/L 136-145 Sodium Level [facility]I ([facility]) glomerular filtration rate > 60.0 >60 Glomerula r Filtration Rate [place] ([facility]) potassium serum 3.6 mEq/L 3.5-5.1 Potassium Serum ATH NA ([facility]) chloride level 103 mEq/L 98-107 Chloride Level [place] ([facility]) carbon dioxide level 23 mEq/L 21-32 Carbon Dioxide Level [place] ([facility]) anion gap 10 mEq/L 8-16 Anion Gap [place] ([facility]) calcium level 8.8 mg/dL 8.5-10.1 Calcium Level [place] ( [facility]) ID Date Data Source [id number] 06/01/2020 01:01:00 PM EST [facility] Name Value Range Interpretation Code Description Data Kassy rce(s) Supporting Document(s) AST/SGOT 61 U/L 7-37 Above high normal AST/SGOT [facility] ([facility]) ALT/SGPT 89 U/L 12-78 Above high normal ALT/SGPT [facility] ([facility]) alkaline phosphatase 80 U/L 45-117 Alkaline Phosph atase [facility] ([facility]) bilirubin,total 0.3 mg/dL 0.2-1.0 Bilirubin,total ATHE ([facility]) total protein 8.4 gm/dL 6.4-8.2 Above high normal Total Protein A [facility] ([facility]) bilirubin,direct 0.1 mg/dL 0.0-0.2 Bilirubin,direct AT [facility] ([facility]) albumin/globulin ratio 1.2-2.2 Below low normal Albumin /globulin Ratio [facility] ([facility]) albumin 4.2 gm/dL 3.2-5.2 Albumin [facility] ([facility]) ID Date Data Source [id number] 06/01/2020 01:01:00 PM EST [facility] ([facility]) Name Value Range Interpretation Code Description Data Kassy rce(s) Supporting Document(s) white blood count 5.6 10 4.0-10.0 White Blood Count [facility] ([facility]) red blood count 4.07 10 4.00-5.40 Red Blood Count ATHE ([facility]) hemoglobin 12.4 g/dL 12.0-15.5 Hemoglobin [facility] ([facility]) hematocrit 37.8 % 36.0-47.0 Hematocrit [facility] ([facility]) mean corpuscular hemoglobin 30.5 pg 27.0-33.0 Mean Cor puscular Hemoglobin [facility] ([facility]) mean corpuscular HGB conc 32.8 g/dL 32.0-36.5 Mean Corpu scular HGB Conc [facility] ([facility]) mean corpuscular volume 92.9 fL 80.0-96.0 Mean Corpusc ular Volume [facility] ([facility]) neutrophils % 39.6 % 36.0-66.0 Neutrophils % [facility] ( [facility]) red cell distribution width 12.8 % 11.5-14.5 Red Cell Distribution Width [facility] ([facility]) platelet count, automated 205 10 150-450 Platelet C ount, Automated [facility] ([facility]) mono % 8.0 % 0.0-5.0 Above high normal [place] % [facility] ([facility]) lymph % 48.6 % 24.0-44.0 Above high normal Lymph % [facility] ([facility]) baso % 0.9 % 0.0-1.0 Baso % [place] ([facility]) eos % 2.7 % 0.0-3.0 Eos % [place] ([facility]) immature granulocyte % 0.2 % 0-3.0 Immature Gran ulocyte % [place] ([facility]) nucleated red blood cell % 0.0 % 0-0 Nucleated Red Blood Cell % [place] ([facility]) neutrophils # 2.2 10 1.5-8.5 Neutrophils # [facility] ( [facility]) lymph # 2.7 10 1.5-5.0 Lymph # [facility] ([facility]) mono # 0.5 10 0.0-0.8 [place] # [facility] ([facility]) eos # 0.2 10 0.0-0.5 Eos # [facility] ([facility]) baso # 0.1 10 0.0-0.2 Baso # [facility] ([facility]) ID Date Data Source [id number] 05/07/2020 09:44:00 AM EDT [facility] Name Value Range Interpretation Code Description Data Kassy rce(s) Supporting Document(s) Free T4 (Free Thyroxine) 0.76-1.46 Normal (applies to non -numeric results) [facility] ID Date Data Source [id number] 05/07/2020 09:44:00 AM EDT [facility] Name Value Range Interpretation Code Description Data Kassy rce(s) Supporting Document(s) Thyroid Stimulate Hormone TSH 0.358-3.740 Above high andrea l [facility] ID Date Data Source [id number] 04/30/2020 01:37:00 PM EDT [facility] Name: CELY SIMS [facility] Rec #: [id number] 14 : 1985 Age/Sex: 34F Date of Service: 04/30/20 DISPOSITION SUMMARY Discharge Summary [facility] Name:Cely Sims Emergency Department Age:34 yrs [...] Level Provider: Eder Willard PA Followup Physician: Daliab, Provider Orders: CRP - Wide Range, Cbc [...] Discharge Instruction: Discharge Summary Sheet, Constipation, Adult, Qoih-bl-Lvap, Medication Reconciliation Name Value Range Interpretation Code Description Data Kassy rce(s) Supporting Document(s) ID Date Data Source [id number] 04/30/2020 01:37:00 PM EDT [facility] Name: CELY SMIS [facility] Rec #: [id number] 14 : 1985 Age/Sex: 34F Date of Service: 04/30/20 PHYSICIAN CHART Physician Documentation [facility] Name: Cley Sims Age: 34 yrs Sex: [...] a 34-year-old female with history of mental w health disorders including schizophrenia, depression, anxiety, bipolar [...] fevers, headaches, chest pain, shortness of breath.. 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 ROS: 14:40 Constitutional: Negative for fever, chills, [...] rate of 83 zrw1 beats per minute. GA 168ms. QRS 94ms. QT 426. Normal axis. . 04/30 14:27 Order name: CRP - Wide Range; Complete Time: 15:22 zrw1 04/30 15:54 Interpretation: CRP-wr < 2.90. zrw1 04/30 14:27 Order name: Cbc With Auto Differential; Complete Time: 15:19zrw1 04/30 15:53 Interpretation: WBC 6.8; HGB 11.6; HCT 34.1; PLT 240; Neut% zrw1 (AUTO) 42; Neut# (AUTO) 2.9. 04/30 14:27 Order name: Comprehensive Metabolic Prof.; Complete Time: zrw 15:22 04/30 15:53 Interpretation: NA 142; K 4.3; CL 113; CO2 25.0; GAP 4.0; zrw1 BUN 17; CREAT 0.78; Glom Filtration 85; GLU 85; CA 8.5; Corrected CA 8.9; T Bili 0.1; SGOT(AST) 37; SGPT(ALT) 37; ALK PHOS 81; TP 7.4; ALB 3.5. 04/30 14:27 Order name: Lipase; Complete Time: 15:22 zrw1 04/30 15:54 Interpretation: LIP 85. w1 04/30 14:27 Order name: UA.; Complete Time: 15:19 [facility] 04/30 15:02 Interpretation: Ur Color Yellow; Ur Clarity Clear; Ur Leuk zrw1 Est 2+ Mod; Ur Nitrite Negative. 04/30 14:39 Order name: POC Urine HCG for ED; Complete Time: 15:19 dk2 04/30 15:54 Interpretation: POC ED Ur HCG NEGATIVE. [facility] 04/30 14:27 Order name: Ct Abdomen & Pelvis with Con w 04/30 14:27 Order name: Collect Urine - Clean Catch; Complete Time: zrw 14:33 04/30 14:58 Order name: Urinalysis Auto w/Microscopy [facility] 04/30 14:58 Order name: Urine Culture [facility] 04/30 15:02 Order name: Emergency Room EKG Order - Use EKG Work-Up w1 /Quick Select; Complete Time: 15:28 04/30 15:02 Order name: Cardiology EKG Interpretation - Choose Reason [facility] for Test 04/30 14:27 Order name: Iv Saline Lock; Complete Time: 14:44 zrw1 04/30 14:27 Order name: NPO; Complete Time: 14:34 zrw1 04/30 14:27 Order name: POC - Collect UHCG; Complete Time: 14:39 [facility] 04/30 16:17 Order name: Phillip Enema: To Go; Complete Time: 16:18 zrw [...] Discharge Summary Sheet zrw1 - Constipation, Adult, Uglr-nh-Kacz zrw1 Forms: - Medication Reconciliation zrw1 Prescriptions: - Cephalexin 500 mg Oral Capsule - take 1 capsule by ORAL route every 12 hours for 5 zrw1 days; 10 capsule; Refills: 0, Product Selection Permitted - magnesium citrate Oral Solution - take 1 bottle by ORAL route one time; 1 bottle; zrw1 Refills: 0, Product Selection Permitted Signatures: Dispatcher [employer] EDOri Gloria RN RN tp1 Maira Nunez RN RN [...] rce(s) Supporting Document(s) ID Date Data Source [id number] 04/30/2020 01:37:00 PM EDT [facility] Name: CELY SIMS [facility] Rec #: [id number] 14 : 1985 Age/Sex: 34F Date of Service: 04/30/20 NURSE CHART Nurse's Notes [facility] Name: Cely Sims Age: 34 yrs Sex: Female : 1985 Arrival Date: 04/30/2020 Time: 13:37 Bed 8 Private MD: Rehab, Provider Diagnosis: Abdominal Pain, Unspecified;Constipation, unspecified Presentation: 04/30 13:38 Acuity: Urgent - 3 awr 13:56 Transition of care: patient was not received from another [facility] setting of care. Presenting complaint: Patient states - She has not had a BM in the last two days despite using suppositories.. Pt is currently at our rehab facility. Have you travelled in the last 30 days? Yes, Where have you travelled? From [place]. . Have you had contact with an [...] Abdomen is distended, The patient reports constipation. 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 Screenin:06 AUDIT 1. How often do you [...] tp1 on for positive identification. 14:07 Maira Nunez, ARMANDO is Primary Nurse. tp1 14:08 Eder Willard [...] obtained and reviewed by Stephen Woods MD. jmg 15:28 Cardiology EKG Interpretation - Choose Reason for Test Sent.jmg 16:18 Rehab, Provider is Referral Physician. zrw1 [...] hour call back attempted, invalid phone number sj Signatures: Surekha Carvajal, RN RN sj Ori Carlson, RN RN tp1 Maira Nunez, RN RN dk2 Jesse Hernandez, RN RN Yoli Rosado NA NA jmg Willis, Zachary, PA PA [id number] Antonina Ivey Name Value Range Interpretation Code Description Data Kassy rce(s) Supporting Document(s) ID Date Data Source [id number] 05/01/2020 09:27:00 AM EDT [facility] Name: CELY SIMS : 1985 A ge/Sex: 34F Ordering Provider: LEA White Med Rec #: [id number] Reg Status:[facility] ER Room #: Date of Service: 04/30/20 Report Number: [id number] cc: PCP None; LEA White Send Report To: Reason for exam: ABDOMINAL PAIN SINUS RHYTHM POSSIBLE RIGHT VENTRICULAR CONDUCTION DELAY BORDERLINE ECG Compared to 04/18/2020 there is no significant change Physician Spool Worker: Serafin Daugherty M.D. ECG HEART RATE: 83 /min ECG RR INTERVAL: 716 ms ECG P DURATION: 119 ms ECG QRS DURATION: 94 ms ECG GA INTERVAL: 168 ms ECG QT INTERVAL: 426 ms ECG QTC INTERVAL: 466 ms Q-T dispersion: ms ECG P AXIS: 42 deg ECG QRS AXIS: 21 deg ECG T AXIS: 33 deg REPORT SIGNATURE ON FILE 05/01/20927 Reported By: Serafin Daugherty MD, [facility] <<Signature on File>> Exam Date/Time: 04/30/20 1523 Order #: [id number] Dictation Date/Time: 05/01/20926 Transcribed Date/Time: 05/01/20926 Food And Drug Inspector: LETICIA Name Value Range Interpretation Code Description Data Kassy rce(s) Supporting Document(s) ID Date Data Source [id number] 05/02/2020 10:45:00 AM EDT [facility] Name Value Range Interpretation Code Description Data Kassy rce(s) Supporting Document(s) Urine Culture Normal (applies to non-numeric re sults) [facility] ID Date Data Source [id number] 04/30/2020 03:21:00 PM EDT [facility] Name Value Range Interpretation Code Description Data Kassy rce(s) Supporting Document(s) Sodium 142 mmol/L 137-145 Normal (applies to non-numeric resul ts) [facility] Potassium 3.5-5.1 Normal (applies to non-numeric resul ts) [facility] Chloride 113 mmol/L 98-112 Above high normal [facility] Carbon Dioxide CO2 22.0-33.0 Normal (applies to non-numer ic results) [facility] Anion Gap 4.0-11.0 Normal (applies to non-numeric resul ts) [facility] BUN 17 mg/dL 7-17 Normal (applies to non-numeric resul ts) [facility] Creatinine 0.70-1.20 Normal (applies to non-numeric resul ts) [facility] GFR 85 mL/min >60 Normal (applies to non-numeric resul ts) [facility] Result based on MDRD formula. Glucose Level 85 mg/dL 74-99 Normal (applies to non-numeric re sults) [facility] The reference range is only applicable w hen fasting. Calcium-Uncorrected 8.4-10.2 Normal (applies to non-nume claudia results) [facility] Corrected Calcium 8.4-10.2 Normal (applies to non-numeri c results) [facility] Bilirubin,Total 0.2-1.3 Below low normal [facility] SGOT(AST) 37 U/L 14-36 Above high normal [facility] SGPT(ALT) 37 U/L 9-52 Normal (applies to non-numeric resul ts) [facility] Alkaline Phosphatase 81 U/L 38-126 Normal (applies to non-num clementine results) [facility] can increase Alkaline Phosp le vels up to 2 times the normal adult value. Normal values for children and adolescents are 2 to 3 times the normal adult value. Total Protein 6.3-8.2 Normal (applies to non-numeric re sults) [facility] Albumin 3.5-5.0 Normal (applies to non-numeric resul ts) [facility] ID Date Data Source [id number] 04/30/2020 03:21:00 PM EDT [facility] Name Value Range Interpretation Code Description Data Kassy rce(s) Supporting Document(s) C-Reactive Protein,Wide Range <3.00 Normal (applies t o non-numeric results) [facility] ID Date Data Source [id number] 04/30/2020 03:21:00 PM EDT [facility] Name Value Range Interpretation Code Description Data Kassy rce(s) Supporting Document(s) Lipase 85 U/L 73-393 Normal (applies to non-numeric resul ts) [facility] ID Date Data Source [id number] 04/30/2020 03:07:00 PM EDT [facility] Name Value Range Interpretation Code Description Data Kassy rce(s) Supporting Document(s) White Blood Count 4.8-10.8 Normal (applies to non-numeri c results) [facility] Red Blood Count 3.68-5.22 Normal (applies to non-numeric results) [facility] Hemoglobin 11.2-15.7 Normal (applies to non-numeric resul ts) [facility] Hematocrit 34.1-44.9 Normal (applies to non-numeric resul ts) [facility] Mean Corpuscular Volume 81-99 Normal (applies to non- numeric results) [facility] Mean Corpuscular Hemoglobin 27.0-33.0 Normal (appli es to non-numeric results) [facility] Mean Corpuscular HGB Conc 32.0-36.0 Normal (applies to no n-numeric results) [facility] Red Cell Distribution Width 11.5-14.5 Normal (appli es to non-numeric results) [facility] Platelet Count 240 X10 3/uL 130-450 Normal (applies to non-numeric results) [facility] Mean Platelet Volume 9.5-12.7 Normal (applies to non-num clementine results) [facility] Imm Grans% (AUTO) 0 % 0-2 Normal (applies to non-numeri c results) [facility] Neutrophils % (AUTO) 42 % 40-75 Normal (applies to non-num clementine results) [facility] Lymphocytes % (AUTO) 46 % 21-46 Normal (applies to non-num clementine results) [facility] Monocytes % (AUTO) 7 % 5-12 Normal (applies to non-numer ic results) [facility] Eosinophils % (AUTO) 3 % 1-5 Normal (applies to non-num clementine results) [facility] Basophils % (AUTO) 1 % 0-1 Normal (applies to non-numer ic results) [facility] Imm Grans# (AUTO) 0.0-0.5 Normal (applies to non-numeri c results) [facility] Neutrophils # (AUTO) 1.5-8.1 Normal (applies to non-num clementine results) [facility] Lymphocytes # (AUTO) 1.0-3.1 Above high normal [facility] Monocytes # (AUTO) 0.2-1.3 Normal (applies to non-numer ic results) [facility] Eosinophils# (AUTO) 0.0-0.5 Normal (applies to non-nume claudia results) [facility] Basophils # (AUTO) 0.0-0.1 Normal (applies to non-numer ic results) [facility] ID Date Data Source [id number] 04/30/2020 03:15:00 PM EDT [facility] Control Line Present? YPerformed by: R EEANUrine HCG Screen Result: NEGATIVE Name Value Range Interpretation Code Description Data Kassy rce(s) Supporting Document(s) POC ED Urine HCG NEGATIVE Normal (applies to non-numeric results) [facility] ID Date Data Source [id number] 04/30/2020 03:10:00 PM EDT [facility] Name Value Range Interpretation Code Description Data Kassy rce(s) Supporting Document(s) Color,Urine Yellow Normal (applies to non-numeric resu lts) [facility] Clarity,Urine Clear Normal (applies to non-numeric re sults) [facility] Specific [place],Urine 1.001-1.030 Normal (applies to non- numeric results) [facility] PH,Urine 4.6-8.0 Normal (applies to non-numeric resul ts) [facility] Protein,Urine Negative Normal (applies to non-numeric re sults) [facility] Glucose,Urine (UA) Negative Normal (applies to non-numer ic results) [facility] Ketones,Urine Negative Normal (applies to non-numeric re sults) [facility] Blood,Urine Negative Normal (applies to non-numeric resu lts) [facility] Bilirubin,Urine Negative Normal (applies to non-numeric results) [facility] Urobilinogen,Urine Norm 0.2-1 Normal (applies to non-numer ic results) [facility] Leukocyte Esterase,Urine Negative [facility]at [facility] Nitrite,Urine Negative Normal (applies to non-numeric re sults) [facility] ID Date Data Source [id number] 04/30/2020 03:10:00 PM EDT [facility] Name Value Range Interpretation Code Description Data Kassy rce(s) Supporting Document(s) WBC,URINE 0-10 [facility] RBC,Urine 0-2 Normal (applies to non-numeric resul ts) [facility] Hyaline Casts,Ur None Seen Normal (applies to non-numeric results) [facility] Bacteria,Urine None Seen [facility] Epithelial Cell,Ur None-Few Bhagat [facility] ID Date Data Source [id number] 05/01/2020 06:14:00 AM EDT [facility] Name: CELY SIMS : 1985 A ge/Sex: 34F Ordering Provider: LEA White Med Rec #: [id number] Reg Status: [facility] ER Room #: Date of Service: 04/30/20 Report Number: [id number] cc:PCP None Send Report To: [id number] CT/CT Abdomen & Pelvis w Con Reason [...] Date/Time: 04/30/20 1541 Transcribed Date/Time: 05/01/20 0614 Food And Drug Inspector: CHEL Name Value Range Interpretation Code Description Data Kassy rce(s) Supporting Document(s) ID Date Data Source [id number] 04/23/2020 09:55:00 AM EDT [facility] Name Value Range Interpretation Code Description Data Kassy rce(s) Supporting Document(s) Free T4 (Free Thyroxine) 0.76-1.46 Normal (applies to non -numeric results) [facility] ID Date Data Source [id number] 04/23/2020 09:55:00 AM EDT [facility] Name Value Range Interpretation Code Description Data Kassy rce(s) Supporting Document(s) Thyroid Stimulate Hormone TSH 0.358-3.740 Above high andrea l [facility] ID Date Data Source [id number] 04/18/2020 03:52:00 PM EDT [facility] Name: CELY SIMS : 1985 A ge/Sex: 34F Ordering Provider: Stephanie TATE Med Rec #: [id number] Reg Status:ADM IN Room #: 156-2 Date of Service: 04/18/20 Report Number: [id number] cc: Stephanie TATE; Annelise Gray MD Send Report To: Reason for exam: chest pain with cocaine SINUS RHYTHM POSSIBLE LEFT ATRIAL ENLARGEMENT POSSIBLE RIGHT VENTRICULAR CONDUCTION DELAY NONSPECIFIC T-WAVE ABNORMALITY Physician Spool Worker: Dr. Ben Tillman M.D. ECG HEART RATE: 78 /min ECG RR INTERVAL: 765 ms ECG P DURATION: 115 ms ECG QRS DURATION: 90 ms ECG GA INTERVAL: 143 ms ECG QT INTERVAL: 426 ms ECG QTC INTERVAL: 457 ms Q-T dispersion: ms ECG P AXIS: 71 deg ECG QRS AXIS: 72 deg ECG T AXIS: 32 deg REPORT SIGNATURE ON FILE 04/18/201551 Reported By: Ben Tillman MD <<Signature on File>> Exam Date/Time: 04/18/20 0759 Order #: [id number] Dictation Date/Time: 04/18/201551 Transcribed Date/Time: 04/18/201551 Food And Drug Inspector: LETICIA Name Value Range Interpretation Code Description Data Kassy rce(s) Supporting Document(s) ID Date Data Source [id number] 04/17/2020 11:39:00 AM EDT [facility] Name Value Range Interpretation Code Description Data Kassy rce(s) Supporting Document(s) Hep Bs Ag Result T-Test Nonreactive Normal (applies to non -numeric results) [facility] ID Date Data Source [id number] 04/17/2020 11:39:00 AM EDT [facility] Value Range Interpretation Code Description Data Kassy rce(s) Supporting Document(s) Syphilis Serology Nonreactive Normal (applies to non-numer ic results) [facility] ID Date Data Source [id number] 04/17/2020 11:39:00 AM EDT [facility] Value Range Interpretation Code Description Data Kassy rce(s) Supporting Document(s) HAVM Nonreactive Normal (applies to non-numeric resu lts) [facility] ID Date Data Source [id number] 04/17/2020 11:39:00 AM EDT [facility] Value Range Interpretation Code Description Data Kassy rce(s) Supporting Document(s) Vitamin D,Total (25OH) 30.0-100.0 Below low normal [facility] Reference Range: <10 ng/mL: Deficien t 10-30 ng/mL: Insufficient 30-100 ng/mL: Sufficient >100 ng/mL: Toxicity possible ID Date Data Source [id number] 04/17/2020 10:44:00 AM EDT [facility] Value Range Interpretation Code Description Data Kassy rce(s) Supporting Document(s) C-Reactive Protein,Wide Range <3.00 Normal (applies t o non-numeric results) [facility] ID Date Data Source [id number] 04/17/2020 10:44:00 AM EDT [facility] Value Range Interpretation Code Description Data Kassy rce(s) Supporting Document(s) Magnesium 1.80-2.40 Normal (applies to non-numeric resul ts) [facility] ID Date Data Source [id number] 04/17/2020 10:44:00 AM EDT [facility] Name Value Range Interpretation Code Description Data [facility] Supporting Document(s) Sodium 137 mmol/L 137-145 Normal (applies to non-numeric resul ts) [facility] Potassium 3.5-5.1 Normal (applies to non-numeric resul ts) [facility] Chloride 110 mmol/L 98-112 Normal (applies to non-numeric resul ts) [facility] Carbon Dioxide CO2 22.0-33.0 Below low normal [facility] Anion Gap 4.0-11.0 Normal (applies to non-numeric resul ts) [facility] BUN 16 mg/dL 7-17 Normal (applies to non-numeric resul ts) [facility] Creatinine 0.70-1.20 Normal (applies to non-numeric resul ts) [facility] GFR 88 mL/min >60 Normal (applies to non-numeric resul ts) [facility] Result based on MDRD formula. Glucose Level 94 mg/dL 74-99 Normal (applies to non-numeric re sults) [facility] The reference range is only applicable w hen fasting. Calcium-Uncorrected 8.4-10.2 Normal (applies to non-nume claudia results) [facility] Corrected Calcium 8.4-10.2 Normal (applies to non-numeri c results) [facility] Bilirubin,Total 0.2-1.3 Normal (applies to non-numeric results) [facility] Bilirubin,Direct 0.0-0.3 Normal (applies to non-numeric results) [facility] SGOT(AST) 32 U/L 14-36 Normal (applies to non-numeric resul ts) [facility] SGPT(ALT) 35 U/L 9-52 Normal (applies to non-numeric resul ts) [facility] Alkaline Phosphatase 70 U/L 38-126 Normal (applies to non-num clementine results) [facility] can increase Alkaline Phosp le vels up to 2 times the normal adult value. Normal values for children and adolescents are 2 to 3 times the normal adult value. CPK 172 U/L 26-192 Normal (applies to non-numeric resul ts) [facility] Total Protein 6.3-8.2 Normal (applies to non-numeric re sults) [facility] Albumin 3.5-5.0 Normal (applies to non-numeric resul ts) [facility] Thyroid Stimulate Hormone TSH 0.358-3.740 Above high andrea l [facility] ID Date Data Source [id number] 04/17/2020 10:07:00 AM EDT [facility] Name Value Range Interpretation Code Description Data Kassy rce(s) Supporting Document(s) White Blood Count 4.8-10.8 Normal (applies to non-numeri c results) [facility] Red Blood Count 3.68-5.22 Normal (applies to non-numeric results) [facility] Hemoglobin 11.2-15.7 Normal (applies to non-numeric resul ts) [facility] Hematocrit 34.1-44.9 Below low normal [facility] Mean Corpuscular Volume 81-99 Normal (applies to non- numeric results) [facility] Mean Corpuscular Hemoglobin 27.0-33.0 Normal (appli es to non-numeric results) [facility] Mean Corpuscular HGB Conc 32.0-36.0 Normal (applies to no n-numeric results) [facility] Red Cell Distribution Width 11.5-14.5 Normal (appli es to non-numeric results) [facility] Platelet Count 197 X10 3/uL 130-450 Normal (applies to non-numeric results) [facility] Mean Platelet Volume 9.5-12.7 Normal (applies to non-num clementine results) [facility] Imm Grans% (AUTO) 0 % 0-2 Normal (applies to non-numeri c results) [facility] Neutrophils % (AUTO) 46 % 40-75 Normal (applies to non-num clementine results) [facility] Lymphocytes % (AUTO) 42 % 21-46 Normal (applies to non-num clementine results) [facility] Monocytes % (AUTO) 9 % 5-12 Normal (applies to non-numer ic results) [facility] Eosinophils % (AUTO) 3 % 1-5 Normal (applies to non-num clementine results) [facility] Basophils % (AUTO) 1 % 0-1 Normal (applies to non-numer ic results) [facility] Imm Grans# (AUTO) 0.0-0.5 Normal (applies to non-numeri c results) [facility] Neutrophils # (AUTO) 1.5-8.1 Normal (applies to non-num clementine results) [facility] Lymphocytes # (AUTO) 1.0-3.1 Normal (applies to non-num clementine results) [facility] Monocytes # (AUTO) 0.2-1.3 Normal (applies to non-numer ic results) [facility] Eosinophils# (AUTO) 0.0-0.5 Normal (applies to non-nume claudia results) [facility] Basophils # (AUTO) 0.0-0.1 Normal (applies to non-numer ic results) [facility] ID Date Data Source [id number] 04/16/2020 11:13:00 AM EDT [facility] Name Value Range Interpretation Code Description Data Kassy rce(s) Supporting Document(s) Respiratory specimen severe acute respir atory syndrome coronavirus 2 (SARS-CoV-2) RNA [facility] ital This lab was ordered by [facility] lola and reported by [facility]. ID Date Data Source [id number] 04/16/2020 03:13:00 PM EDT [facility] Name Value Range Interpretation Code Description Data Kassy rce(s) Supporting Document(s) Opiate Screen,Urine Negative Normal (applies to non-nume claudia results) [facility] Amphetamine Screen,Urine Negative Normal (applies to non -numeric results) [facility] Benzodiazepines Scrn,Ur result Negative N ormal (applies to non-numeric results) [facility] Cocaine Screen,Urine Negative Normal (applies to non-num clementine results) [facility] Methadone Screen,Urine Negative Normal (applies to non-n umeric results) [facility] Cannabinoid Screen, Ur Negative Normal (applies to non-n umeric results) [facility] Therapeutic Drug Ranges for Emergency an d Rehabilitation Threshold Levels (ng/mL) Cocaine 300 Opiates 300 Cannabinoids 50 Barbiturates 200 Benzodiazepine 200 Methadone 300 Amphetamines 1000 All positive find ings are presumptive and unconfirmed. Confirmation of positive results are performed only at request of provider. Unconfirmed results must not be used for non-medical purposes (i.e. pre-employment and legal purposes) ID Date Data Source [id number] 04/16/2020 02:00:00 PM EDT [facility] Name Value Range Interpretation Code Description Data Kassy rce(s) Supporting Document(s) Color,Urine Yellow Normal (applies to non-numeric resu lts) [facility] Clarity,Urine Clear Normal (applies to non-numeric re sults) [facility] Specific [place],Urine 1.001-1.030 Normal (applies to non- numeric results) [facility] PH,Urine 5.0-8.0 Normal (applies to non-numeric resul ts) [facility] Protein,Urine Negative Normal (applies to non-numeric re sults) [facility] Glucose,Urine (UA) Negative Normal (applies to non-numer ic results) [facility] Ketones,Urine Negative Normal (applies to non-numeric re sults) [facility] Blood,Urine Negative Normal (applies to non-numeric resu lts) [facility] Bilirubin,Urine Negative Normal (applies to non-numeric results) [facility] Urobilinogen,Urine Norm 0.2-1 Normal (applies to non-numer ic results) [facility] Leukocyte Esterase,Urine Negative Normal (applies to non -numeric results) [facility] Nitrite,Urine Negative Normal (applies to non-numeric re sults) [facility] ID Date Data Source [id number] 04/16/2020 02:00:00 PM EDT [facility] Name Value Range Interpretation Code Description Data Kassy rce(s) Supporting Document(s) Urine HCG Negative Normal (applies to non-numeric resul ts) [facility] ID Date Data Source [id number] 04/16/2020 11:13:00 AM EDT [facility] First test? UNKNOWNEmployed in [facility] re? UNKNOWNSymptomatic per CDC? UNKNOWNHospitalized? UNKNOWNICU? UNKNOWNResident in congregated care? ex [facility], [facility] UNKNOWN? UNKNOWN Name Value Range Interpretation Code Description Data Kassy rce(s) Supporting Document(s) SARS-CoV-2 RNA Negative Normal (applies to non-numeric r esults) [facility] Negative results should be treated as [...] Certificate of Accreditation. Factsheets for healthcare providers: https://www.fda.gov/media/920485/download Factsheets for patients: https://www.fda.gov/media/138553/download THIS IS A STATE REPORTABLE COMMUNICABLE DISEASE. Manual entry verified by Jessika Villareal 04/16/20 1112 Procedure Social History Code Duration Value Status Description Data Source(s ) Smoking 04/14/2021 12:00:00 AM EDT Smoker, current status unkn own completed Smoker, current status unknown [facility] 09/15/2020 12:00:00 AM EST Heavy cigarette smoker (20- 39 cigs/day) completed Heavy cigarette smoker (20-39 cigs/day) [facility] Vital Signs ID Date Data Source UNK Name Value Range Interpretation Code Description Data Source(s) Diastolic blood pressure 73 mm[Hg] 73 mm[Hg] SUSI ([facility]) Systolic blood pressure 104 mm[Hg] 104 mm[Hg] A THENA ([facility]) Body weight 0 [oz_av] 1920 [oz_av] SUSI ([facility]) Body height 154.94 cm 154.94 cm [facility] ([facility]) Body weight 59.239 kg 59.239 kg [facility] ([facility]) Systolic blood pressure 120 mm[Hg] 120 mm[Hg] N [facility] ([facility] Diastolic blood pressure 77 mm[Hg] 77 mm[Hg] [facility] ([facility] Body mass index (BMI) [Ratio] 24.68 kg/m2 24.68 kg/m2 [facility] ([facility]) Body height 154.94 cm 154.94 cm [facility] ([facility] Body weight 58.967 kg 58.967 kg [facility] ([facility]) Body mass index (BMI) [Ratio] 24.56 kg/m2 24[facility]56 [facility] ID Date Data Source [id number] 02/23/2021 10:02:00 AM EDT [facility] Name Value Range Interpretation Code Description Data Source(s) Weight (Calculated Kilograms) 55.34 55.34 [facility] Height (Calculated Centimeters) 154.94 154. 94 [facility] Body Mass Index (BMI) 23.0 23.0 [facility] ID Date Data Source [id number] 03/09/2021 03:19:00 PM EDT [facility] Name Value Range Interpretation Code Description Data Source(s) Weight Measurement Method 1 1 [facility] Weight (Calculated Kilograms) 55.34 55.34 [facility] Weight 2144 2144 [facility] Temperature Source 7 7 [facility] Temperature 96.4 96.4 [facility] Respiratory Effort 1 1 [facility] Respiratory Rate 16 16 [facility] Pulse Assessment Method 4 4 [facility] Pulse Rate 117 117 [facility] Height (Calculated Centimeters) 154.94 154. 94 [facility] Height 61 61 [facility] Blood Pressure 110/70 110/70 [facility] Body Mass Index (BMI) 23.0 23.0 [facility] Weight Measurement Method 1 1 [facility] Weight (Calculated Kilograms) 55.34 55.34 [facility] Weight 2144 2144 [facility] Temperature Source 7 7 [facility] Temperature 96.4 96.4 [facility] Respiratory Effort 1 1 [facility] Respiratory Rate 16 16 [facility] Pulse Assessment Method 4 4 [facility] Pulse Rate 117 117 [facility] Height (Calculated Centimeters) 154.94 154. 94 [facility] Height 61 61 [facility] Blood Pressure 110/70 110/70 [facility] Body Mass Index (BMI) 23.0 23.0 [facility] Weight Measurement Method 1 1 [facility] Weight (Calculated Kilograms) 55.34 55.34 [facility] Weight 2144 2144 [facility] Temperature Source 7 7 [facility] Temperature 96.4 96.4 [facility] Respiratory Effort 1 1 [facility] Respiratory Rate 16 16 [facility] Pulse Assessment Method 4 4 [facility] Pulse Rate 117 117 [facility] Height (Calculated Centimeters) 154.94 154. 94 [facility] Height 61 61 [facility] Blood Pressure 110/70 110/70 [facility] Body Mass Index (BMI) 23.0 23.0 [facility] Weight Measurement Method 1 1 [facility] Weight (Calculated Kilograms) 55.34 55.34 [facility] Weight 1983 1983 [facility] Temperature Source 7 7 [facility] Temperature 97.3 97.3 [facility] Respiratory Effort 1 1 [facility] Respiratory Rate 14 14 [facility] Pulse Assessment Method 4 4 [facility] Pulse Rate 69 69 [facility] Height (Calculated Centimeters) 154.94 154. 94 [facility] Height 61 61 [facility] Blood Pressure 112/79 112/79 [facility] Body Mass Index (BMI) 23.0 23.0 [facility] Weight Measurement Method 1 1 [facility] Weight (Calculated Kilograms) 55.34 55.34 [facility] Weight 1983 1983 [facility] Temperature Source 7 7 [facility] Temperature 97.1 97.1 [facility] Respiratory Effort 1 1 [facility] Respiratory Rate 16 16 [facility] Pulse Assessment Method 4 4 [facility] Pulse Rate 74 74 [facility] Height (Calculated Centimeters) 154.94 154. 94 [facility] Height 61 61 [facility] Blood Pressure 110/74 110/74 [facility] Body Mass Index (BMI) 23.0 23.0 [facility] Weight (Calculated Kilograms) 56.25 56.25 [facility] Height (Calculated Centimeters) 154.94 154. 94 [facility] Body Mass Index (BMI) 23.4 23.4 [facility] ID Date Data Source [id number] 05/07/2020 09:12:00 AM EDT [facility] Name Value Range Interpretation Code Description Data Source(s) Weight (Calculated Kilograms) 56.25 56.25 [facility] Height (Calculated Centimeters) 154.94 154. 94 [facility] Body Mass Index (BMI) 23.4 23.4 [facility] Weight (Calculated Kilograms) 56.25 56.25 [facility] Height (Calculated Centimeters) 154.94 154. 94 [facility] Body Mass Index (BMI) 23.4 23.4 [facility] Weight (Calculated Kilograms) 56.25 56.25 [facility] Height (Calculated Centimeters) 154.94 154. 94 [facility] Body Mass Index (BMI) 23.4 23.4 [facility] Weight (Calculated Kilograms) 56.25 56.25 [facility] Height (Calculated Centimeters) 154.94 154. 94 [facility] Body Mass Index (BMI) 23.4 23.4 [facility] ID Date Data Source [id number] 05/19/2020 05:30:00 AM EDT [facility] Name Value Range Interpretation Code Description Data Source(s) Weight Measurement Method 1 1 [facility] Weight (Calculated Kilograms) 56.25 56.25 [facility] Weight 2063 2063 [facility] Temperature Source 7 7 [facility] Temperature 97.5 97.5 [facility] Respiratory Effort 1 1 [facility] Respiratory Rate 15 15 [facility] Pulse Assessment Method 4 4 [facility] Pulse Rate 83 83 [facility] Height (Calculated Centimeters) 154.94 154. 94 [facility] Height 61 61 [facility] Blood Pressure 109/75 109/75 [facility] Body Mass Index (BMI) 23.4 23.4 [facility] Weight Measurement Method 1 1 [facility] Weight (Calculated Kilograms) 56.25 56.25 [facility] Weight 2063 2063 [facility] Temperature Source 7 7 [facility] Temperature 97.5 97.5 [facility] Respiratory Effort 1 1 [facility] Respiratory Rate 15 15 [facility] Pulse Assessment Method 4 4 [facility] Pulse Rate 83 83 [facility] Height (Calculated Centimeters) 154.94 154. 94 [facility] Height 61 61 [facility] Blood Pressure 109/75 109/75 [facility] Body Mass Index (BMI) 23.4 23.4 [facility] Weight Measurement Method 1 1 [facility] Weight (Calculated Kilograms) 56.25 56.25 [facility] Weight 2063 2063 [facility] Temperature Source 7 7 [facility] Temperature 97.5 97.5 [facility] Respiratory Effort 1 1 [facility] Respiratory Rate 15 15 [facility] Pulse Assessment Method 4 4 [facility] Pulse Rate 83 83 [facility] Height (Calculated Centimeters) 154.94 154. 94 [facility] Height 61 61 [facility] Blood Pressure 109/75 109/75 [facility] Body Mass Index (BMI) 23.4 23.4 [facility] Weight Measurement Method 1 1 [facility] Weight (Calculated Kilograms) 56.25 56.25 [facility] Weight 2063 2063 [facility] Temperature Source 7 7 [facility] Temperature 97.5 97.5 [facility] Respiratory Effort 1 1 [facility] Respiratory Rate 15 15 [facility] Pulse Assessment Method 4 4 [facility] Pulse Rate 83 83 [facility] Height (Calculated Centimeters) 154.94 154. 94 [facility] Height 61 61 [facility] Blood Pressure 109/75 109/75 [facility] Body Mass Index (BMI) 23.4 23.4 [facility] Weight Measurement Method 1 1 [facility] Weight (Calculated Kilograms) 56.25 56.25 [facility] Weight 1983 1983 [facility] Temperature Source 7 7 [facility] Temperature 96.9 96.9 [facility] Respiratory Effort 1 1 [facility] Respiratory Rate 15 15 [facility] Pulse Assessment Method 4 4 [facility] Pulse Rate 90 90 [facility] Height (Calculated Centimeters) 154.94 154. 94 [facility] Height 61 61 [facility] Blood Pressure 104/67 104/67 [facility] Body Mass Index (BMI) 23.4 23.4 [facility] Weight Measurement Method 1 1 [facility] Weight (Calculated Kilograms) 56.25 56.25 [facility] Weight 1983 1983 [facility] Temperature Source 7 7 [facility] Temperature 97.8 97.8 [facility] Respiratory Effort 1 1 [facility] Respiratory Rate 17 17 [facility] Pulse Assessment Method 4 4 [facility] Pulse Rate 93 93 [facility] Height (Calculated Centimeters) 154.94 154. 94 [facility] Height 61 61 [facility] Blood Pressure 110/87 110/87 [facility] Body Mass Index (BMI) 23.4 23.4 [facility] Weight (Calculated Kilograms) 72.12 72.12 [facility] Height (Calculated Centimeters) 154.94 154. 94 [facility] Body Mass Index (BMI) 30.0 30.0 [facility] Patient Treatment Plan of Care Planned Activity Planned Date Details Description Data Source (s) Sertraline 50 MG Oral Tablet [Zoloft] 01/18/2021 12:00:00 AM [facility]. Risperidone 3 MG Oral Tablet [Risperdal] 01/18/2021 12:00:00 AM [facility] Prazosin 2 MG Oral Capsule [Minipress] 01/18/2021 12:00:00 AM [facility] olanzapine 15 MG Oral Tablet 01/18/2021 12:00:00 AM [facility] Multi-Vit/Mineral (Multivitamin Tablet) 1 TAB TAB 01/18/2021 12: 00:00 AM [facility] Mirtazapine 15 MG Oral [facility] MG Oral Tablet 01/18/2021 12:00:00 AM [facility] Docusate Sodium 100 MG Oral Capsule [Colace] 01/18/2021 12:00:00 AM [facility] Buprenorphine 8 MG / Naloxone 2 MG Oral Strip [Suboxon e] 01/18/2021 12:00:00 AM [facility] Metronidazole 500 MG Oral Tablet 09/22/2020 12:00:00 AM EST [facility] ([facility]) 168 HR Ethinyl Estradiol 0.17104 MG/HR / norelgestromin 0.96623 MG/HR Transdermal Patch [Xulane] 03/03/2020 12:00:00 AM EDT [facility] ([facility] Trazodone Hydrochloride 100 MG Oral Tablet [facility] ([facility]) topiramate 50 MG Oral Tablet [facility] ([facility]) topiramate 25 MG Oral Tablet [place] ([facility]) Sulfamethoxazole 800 MG / Trimethoprim 160 MG Oral Tablet [facility] ([facility]) Sertraline 50 MG Oral Tablet [facility] ([facility]) Sertraline 25 MG Oral Tablet [facility] ([facility]) Sertraline 100 MG Oral Tablet [facility] ([facility]) Risperidone 3 MG Oral Tablet [facility] ([facility]) Risperidone 2 MG Oral Tablet [facility] ([facility]) Prazosin 2 MG Oral Capsule [facility] ([facility] P[facility]osin [facility] 24 HR paliperidone 6 MG Extended Release Oral Tablet [facility] ([facility]) 24 HR paliperidone 3 MG Extended Release Oral Tablet [facility] ([facility]) 24 HR Oxybutynin chloride 5 MG Extended Release Oral Tablet [facility] ([facility]) 24 HR Oxybutynin chloride 10 MG Extended Release Oral Tablet [facility] ([facility]) olanzapine 5 MG Oral Tablet [facility] ([facility] olanzapine 5 MG Disintegrating Oral Tablet [facility] ([facility]) benztropine mesylate 1 MG Oral Tablet [facility] ([facility]) atomoxetine 40 MG Oral Capsule [facility] ([facility]) atomoxetine 10 MG Oral Capsule [facility] ([facility]) aripiprazole 2 MG Oral Tablet [facility] ([facility]) Amitriptyline Hydrochloride 25 MG Oral Tablet [place] ([facility]) Sertraline 50 MG Oral Tablet [Zoloft] [facility]. Risperidone 3 MG Oral Tablet [Risperdal] [facility] Prazosin 2 MG Oral Capsule [Minipress] [facility] olanzapine 15 MG Oral Tablet [facility] Mirtazapine 15 MG Oral Tablet [facility] gabapentin 600 MG Oral Tablet [facility] Docusate Sodium 100 MG Oral Capsule [Colace] [facility]. Buprenorphine 8 MG / Naloxone 2 MG Oral Strip [Suboxone] [facility] topiramate 50 MG Oral Tablet [Topamax] [facility] ([facility]) olanzapine 10 MG Oral Tablet [facility] ([facility]) Naproxen 500 MG Oral Tablet [facility] ([facility]) Mirtazapine 15 MG Oral Tablet [facility] ([facility]) Metronidazole 500 MG Oral Tablet [facility] ([facility]) Loratadine 10 MG Oral Tablet [facility] ([facility]) Levothyroxine Sodium 0.05 MG Oral Tablet [facility] ([facility]) Hydroxyzine Hydrochloride 50 MG Oral Tablet [facility] ([facility]) Hydroxyzine Hydrochloride 25 MG Oral Tablet [facility] ([facility]) Haloperidol 2 MG Oral Tablet [facility] ([facility]) Haloperidol 10 MG Oral Tablet [facility] ([facility]) gabapentin 400 MG Oral Capsule [facility] ([facility]) gabapentin 300 MG Oral Capsule [facility] ([facility]) 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 MG Oral Capsule [facility] ([facility]) Fluoxetine 10 MG Oral Capsule [facility] ([facility]) doxycycline hyclate 100 MG Oral Tablet [facility] ([facility]) Docusate Sodium 100 MG Oral Capsule [facility] ([facility]) Divalproex Sodium 500 MG Delayed Release Oral Tablet [facility] ([facility]) Divalproex Sodium 250 MG Delayed Release Oral Tablet [facility] ([facility]) Cephalexin 500 MG Oral Capsule [facility] ([facility]) buspirone hydrochloride 7.5 MG Oral Tablet [facility] ([facility])
--- OUTSIDE RECORDS SUMMARY | 2021-06-01 15:55 | CCD ---
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 Sydnie Blas Name Value Range Interpretation Code Description Data Kassy rce(s) Supporting Document(s) ID Date Data Source [id number] 01/15/2021 01:36:00 PM EDT [facility] Counselor Progress NotePatient NoteCONFI RMED BED AT [facility] 01/22/21 - ADMISSION TIME PENDING.Dictated on 01/15/21 1336 by Sydnie BlasTranscribed on 01/15/21 1336 by Zach Blas by Sydnie Blas on 01/15/21 1337Sign by: Sydnie Blas Name Value Range Interpretation Code Description Data Kassy rce(s) Supporting Document(s) ID Date Data Source [id number] 01/14/2021 03:22:00 PM EDT [facility] Counselor Progress [...] rce(s) Supporting Document(s) ID Date Data Source [id number] 01/14/2021 03:00:00 PM EDT [employer]. Counselor Progress NotePatient NoteCOTASHA DE JESUS WENT TO SEE IF PATIENT WAS UP TO DO EVALUATION AND SHE WASSLEEPING.Dictated on 01/14/21 1500 by Cherrie,TriciaTranscribed on 01/14/21 1500 by Cherrie,TriciaSign by Cherrie,Nuzhat on 01/14/21 1501Sign by: Cherrie,Nuzhat Name Value Range Interpretation Code Description Data Kassy rce(s) Supporting Document(s) ID Date Data Source [id number] 01/14/2021 01:44:00 PM EDT [employer] Counselor Progress NotePatient Dominic DE JESUS WENT INTO PATIENTS ROOM AT 12:30 TO DO THE EVALUATION, THEPATIENT WAS SLEEPING SO COUNSELOR HAD LEFT THE PATIENT TO SLEEP.COUNSELOR CAME BACK TO HER OFFICE AND REPORTED PATIENT STATUS TO ALFREDA.NURSING STATION SUPERINTENDENT, SABINE PECK, WOKE THE PATIENT AND REQUESTED [...] rce(s) Supporting Document(s) ID Date Data Source [id number] 01/14/2021 09:26:00 AM [facility] Counselor Progress NotePatient NoteCOUNS LIZA ALONG WITH [employer] WENT INTO PATIENTS ROOM AND ASKED HOW SHE WASDOING. PATIENT RESPONDED SHE WAS DOING OK. COUNSELOR INFORMED PATIENTTHAT SHE WAS HERE IF SHE NEEDED HER TO TALK OR ANYTHING.Dictated on 01/14/21925 by Cherrie,TriciaTranscribed on 01/14/21925 by Cherrie,TriciaSign by Cherrie,Nuzhat on 01/14/2133Sign by: Cherrie,Nuzhat Name Value Range Interpretation Code Description Data Kassy rce(s) Supporting Document(s) ID Date Data Source [id number] 01/13/2021 04:10:00 PM EDT [facility] Name Value Range Interpretation Code Description Data Kassy rce(s) Supporting Document(s) SARS-CoV-2 (COVID-19) RNA [Presence] in Respiratory specimen by IRIS with probe detection Negative; No COVID-2 RNA detected by PCR. [facility] This lab was ordered by [facility] and reported by . ID Date Data Source [id number] 12/08/2020 03:19:00 PM EDT [facility]) Name Value Range Interpretation Code Description Data Kassy rce(s) Supporting Document(s) influenza A amplification negative negative Influenza a Amplification [facility]) influenza B amplification negative negative Influenza B Amplification [facility]) RSV amplification negative negative RSV Amplification [facility]) sars covid-19 amplification negative negative Sars Cov id-19 Amplification [facility]) ID Date Data Source [id number] 12/08/2020 03:19:00 PM EDT [facility] Name Value Range Interpretation Code Description Data Kassy rce(s) Supporting Document(s) SARS coronavirus 2 RNA [Presence] in Res piratory specimen by IRIS with probe detection NEGATIVE [facility] This lab was ordered by [facility] a nd reported by [facility]. ID Date Data Source [id number] 12/08/2020 09:19:00 AM EDT [facility] ([facility]) Name Value Range Interpretation Code Description Data Kassy rce(s) Supporting Document(s) thyroid stimulating hormone 1.050 uIU/mL 0.358-3.740 Thyroid Stimulating Hormone [facility] ([facility]) ID Date Data Source [id number] 12/08/2020 09:19:00 AM EDT [facility] ([facility]) Name Value Range Interpretation Code Description Data Kassy rce(s) Supporting Document(s) acetaminophen level < 2.0 10.0-30.0 Below low normal Acetaminop hen Level [facility]) ID Date Data Source [id number] 12/08/2020 09:19:00 AM EDT [facility] ([facility]) Name Value Range Interpretation Code Description Data Kassy rce(s) Supporting Document(s) salicylate level 2.7 mg/dL 5.0-30.0 Below low normal Salicylate Le jose [facility]) ID Date Data Source [id number] 12/08/2020 09:19:00 AM EDT [facility] ([facility]) Name Value Range Interpretation Code Description Data Kassy rce(s) Supporting Document(s) ethyl alcohol (ethanol) < 0.003 0.000-0.010 Ethyl Alcoh ol (Ethanol) [facility] ([facility]) ID Date Data Source [id number] 12/08/2020 09:19:00 AM EDT [facility]) Name Value Range Interpretation Code Description Data Kassy rce(s) Supporting Document(s) glucose, fasting 93 mg/dL 70-100 Glucose, Fasting AT JIM ([facility]) blood urea nitrogen 10 mg/dL 7-18 Blood Urea Nitro gen SUSI ([facility]) creatinine for GFR 0.61 mg/dL 0.55-1.30 Creatinine for GF R SUSI ([facility]) glomerular filtration rate > 60.0 >60 Glomerula r Filtration Rate SUSI ([facility]) sodium level 140 mEq/L 136-145 Sodium Level SUSI (No [facility]) chloride level 111 mEq/L 98-107 Above high normal Chloride Level SUSI ([facility]) potassium serum 4.1 mEq/L 3.5-5.1 Potassium Serum ATHE NA ([facility]) anion gap 7 mEq/L 8-16 Below low normal Anion Gap SUSI ( [facility]) calcium level 9.9 mg/dL 8.5-10.1 Calcium Level SUSI ( [facility]) carbon dioxide level 22 mEq/L 21-32 Carbon Dioxide Level SUSI ([facility]) ID Date Data Source [id number] 12/08/2020 09:19:00 AM EDT [facility] ([facility]) Name Value Range Interpretation Code Description Data Kassy rce(s) Supporting Document(s) AST/SGOT 28 U/L 7-37 AST/SGOT [facility] ([facility]) alkaline phosphatase 90 U/L 45-117 Alkaline Phosph atase SUSI ([facility]) ALT/SGPT 26 U/L 12-78 ALT/SGPT [facility]USI ([facility]) bilirubin,total 0.3 mg/dL 0.2-1.0 Bilirubin,total ATHE NA ([facility]) bilirubin,direct < 0.1 0.0-0.2 Bilirubin,direct AT [facility] ([facility]) albumin 3.9 gm/dL 3.2-5.2 Albumin SUSI ([facility]) total protein 8.4 gm/dL 6.4-8.2 Above high normal Total Protein A THENA ([facility]) albumin/globulin ratio 1.2-2.2 Below low normal Albumin /globulin Ratio SUSI ([facility]) ID Date Data Source [id number] 12/08/2020 09:19:00 AM EDT [facility] ([facility]) Name Value Range Interpretation Code Description Data Kassy rce(s) Supporting Document(s) white blood count 9.1 10 4.0-10.0 White Blood Count SUSI ([facility]) red blood count 4.31 10 4.00-5.40 Red Blood Count ATHE ([facility]) hemoglobin 12.8 g/dL 12.0-15.5 Hemoglobin SUSI ([facility]) hematocrit 39.2 % 36.0-47.0 Hematocrit SUSI ([facility]) mean corpuscular volume 91.0 fL 80.0-96.0 Mean Corpusc ular Volume SUSI ([facility]) mean corpuscular hemoglobin 29.7 pg 27.0-33.0 Mean Cor puscular Hemoglobin SUSI ([facility]) mean corpuscular HGB conc 32.7 g/dL 32.0-36.5 Mean Corpu scular HGB Conc SUSI ([facility]) platelet count, automated 276 10 150-450 Platelet C ount, Automated SUSI ([facility]) red cell distribution width 13.7 % 11.5-14.5 Red Cell Distribution Width SUSI ([facility]) nucleated red blood cell % 0.0 % 0-0 Nucleated Red Blood Cell % SUSI ([facility]) ID Date Data Source [id number] 12/08/2020 08:11:00 AM EDT S[facility] ([facility]) Name Value Range Interpretation Code Description Data Kassy rce(s) Supporting Document(s) amphetamines level urine positive negative Above high andrea l Amphetamines Level Urine SUSI ([facility]) barbiturates urine negative negative Barbiturates Urin e SUSI ([facility]) benzodiazepines urine negative negative Benzodiazepine s Urine SUSI ([facility]) cannabinoids urine positive negative Above high normal Cannabinoi ds Urine SUSI ([facility]) cocaine metabolite urine negative negative Cocaine Met abolite Urine SUSI ([facility]) opiates urine negative negative Opiates Urine SUSI ( [facility]) methadone urine negative negative Methadone Urine ATHE NA ([facility]) phencyclidine urine negative negative Phencyclidine Ur ine SUSI ([facility]) ID Date Data Source [id number] 12/07/2020 09:14:00 AM EDT S[facility]I ([facility]) Name Value Range Interpretation Code Description Data Kassy rce(s) Supporting Document(s) istat troponin 0.01 NG/mL 0.00-0.08 Istat Troponin SUSI ([facility]) ID Date Data Source [id number] 12/07/2020 09:12:00 AM EDT [facility] ([facility]) Name Value Range Interpretation Code Description Data Kassy rce(s) Supporting Document(s) istat HCT 38.0 % 38.0-51.0 Istat HCT SUSI ([facility]) istat sodium 138 mEq/L 136-145 Istat Sodium SUSI ([facility]) istat glucose 111 mg/dL 70-105 Above high normal Istat Glucose A [facility]) istat Ca++ 4.7 mg/dL 4.5-5.3 Istat Ca++ SUSI ([facility]) istat potassium 3.9 mEq/L 3.5-5.1 Istat Potassium ATHE NA ([facility]) istat CO2 23.0 mm/L 23.0-27.0 Istat CO2 SUSI ([facility]) istat chloride 105 mEq/L 98-109 Istat Chloride SUSI ([facility]) istat BUN 9 mg/dL 8-26 Istat BUN [facility]I ([facility]) istat creatinine 0.6 mg/dL 0.6-1.3 Istat Creatinine AT [facility]) ID Date Data Source [id number] 12/01/2020 03:02:00 AM EDT [facility] Name Value Range Interpretation Code Description Data Kassy rce(s) Supporting Document(s) SARS coronavirus 2 RNA [Presence] in Res piratory specimen by IRIS with probe detection NEGATIVE [facility] This lab was ordered by [facility] a nd reported by [facility]. ID Date Data Source [id number] 09/15/2020 03:35:50 PM EST [facility] ([facility]) Name Value Range Interpretation Code Description Data Kassy rce(s) Supporting Document(s) Color: yellow; Glucose: nega tive; Blood: small; pH: 6.0; Protein: small; Nitrite: positive; Leukocytes: moderate Abnormal (appl ies to non-numeric results) [facility] ID Date Data Source [id number] 09/15/2020 03:35:12 PM EST [facility] ([facility]) Name Value Range Interpretation Code Description Data Kassy rce(s) Supporting Document(s) NegativeLot: [id number]: 03/31/2022 High Sensitivity Urine Test [facility]) ID Date Data Source [id number] 06/02/2020 02:08:00 PM EST [facility] ([facility]) Name Value Range Interpretation Code Description Data Kassy rce(s) Supporting Document(s) alkaline phosphatase 75 U/L 45-117 Alkaline Phosph atase SUSI ([facility]) ALT/SGPT 74 U/L 12-78 ALT/SGPT [facility] ([facility]) AST/SGOT 58 U/L 7-37 Above high normal AST/SGOT [facility] ([facility]) total protein 7.7 gm/dL 6.4-8.2 Total Protein SUSI ( [facility]) bilirubin,total 0.4 mg/dL 0.2-1.0 Bilirubin,total ATHE ([facility]) bilirubin,direct 0.1 mg/dL 0.0-0.2 Bilirubin,direct AT JIM ([facility]) albumin/globulin ratio 1.2-2.2 Below low normal Albumin /globulin Ratio SUSI ([facility]) albumin 3.7 gm/dL 3.2-5.2 Albumin [facility] ([facility]) ID Date Data Source [id number] 06/02/2020 02:08:00 PM EST [facility] ([facility]) Name Value Range Interpretation Code Description Data Kassy rce(s) Supporting Document(s) amphetamines level urine positive negative Above high andrea l Amphetamines Level Urine S[facility]I ([facility]) benzodiazepines urine negative negative Benzodiazepine s Urine S[facility]I ([facility]) barbiturates urine negative negative Barbiturates Urin e SUSI ([facility]) cannabinoids urine positive negative Above high normal Cannabinoi ds Urine SUSI ([facility]) cocaine metabolite urine negative negative Cocaine Met abolite Urine SUSI ([facility]) methadone urine positive negative Above high normal Methadone Uri ne SUSI ([facility]) phencyclidine urine negative negative Phencyclidine Ur ine SUSI ([facility]) opiates urine positive negative Above high normal Opiates Urine A THENA ([facility]) ID Date Data Source [id number] 06/02/2020 02:08:00 PM EST [facility] ([facility]) Name Value Range Interpretation Code Description Data Kassy rce(s) Supporting Document(s) white blood count 5.8 10 4.0-10.0 White Blood Count SUSI ([facility]) red blood count 3.95 10 4.00-5.40 Below low normal Red Blood Coun t SUSI ([facility]) hemoglobin 12.2 g/dL 12.0-15.5 Hemoglobin SUSI ([facility]) mean corpuscular volume 94.2 fL 80.0-96.0 Mean Corpusc ular Volume SUSI ([facility]) hematocrit 37.2 % 36.0-47.0 Hematocrit S[facility]I ([facility]) mean corpuscular hemoglobin 30.9 pg 27.0-33.0 Mean Cor puscular Hemoglobin SUSI ([facility]) mean corpuscular HGB conc 32.8 g/dL 32.0-36.5 Mean Corpu scular HGB Conc S[facility]I ([facility]) red cell distribution width 12.8 % 11.5-14.5 Red Cell Distribution Width S[facility] ([facility]) nucleated red blood cell % 0.0 % 0-0 Nucleated Red Blood Cell % S[facility]I ([facility]) platelet count, automated 195 10 150-450 Platelet C ount, Automated [facility] ([facility]) ID Date Data Source [id number] 06/02/2020 02:08:00 PM EST [facility] ([facility]) Name Value Range Interpretation Code Description Data Kassy rce(s) Supporting Document(s) HCG, serum qualitative negative negative HCG, [facility] ID Date Data Source [id number] 06/02/2020 02:08:00 PM EST [facility] ([facility]) Name Value Range Interpretation Code Description Data Kassy rce(s) Supporting Document(s) thyroid stimulating hormone 1.690 uIU/mL 0.358-3.740 Thyroid Stimulating Hormone [facility] ([facility]) ID Date Data Source [id number] 06/02/2020 02:08:00 PM EST SUSI ([facility]) Name Value Range Interpretation Code Description Data Kassy rce(s) Supporting Document(s) acetaminophen level < 2.0 10.0-30.0 Below low normal Acetaminop hen Level [facility]) ID Date Data Source [id number] 06/02/2020 02:08:00 PM EST [place] ([facility]) Name Value Range Interpretation Code Description Data Kassy rce(s) Supporting Document(s) salicylate level < 1.7 5.0-30.0 Below low normal Salicylate Le jose [place]IT ([facility]) ID Date Data Source [id number] 06/02/2020 02:08:00 PM EST [place] ([facility]) Name Value Range Interpretation Code Description Data Kassy rce(s) Supporting Document(s) ethyl alcohol (ethanol) < 0.003 0.000-0.010 Ethyl Alcoh ol (Ethanol) [place] ([facility]) ID Date Data Source [id number] 06/02/2020 02:08:00 PM EST [place] ([facility]) Name Value Range Interpretation Code Description Data Kassy rce(s) Supporting Document(s) creatinine for GFR 0.71 mg/dL 0.55-1.30 Creatinine for GF R [facility]) blood urea nitrogen 7 mg/dL 7-18 Blood Urea Nitro gen [place] ([facility]) glucose, fasting 82 mg/dL 70-100 Glucose, Fasting AT [facility]) glomerular filtration rate > 60.0 >60 Glomerula r Filtration Rate [place] ([facility]) sodium level 139 mEq/L 136-145 Sodium Level [place] (No [facility]) potassium serum 3.6 mEq/L 3.5-5.1 Potassium Serum ATH NA ([facility]) anion gap 6 mEq/L 8-16 Below low normal Anion Gap [place]IT ( [facility]) carbon dioxide level 24 mEq/L 21-32 Carbon Dioxide Level [place] ([facility]) chloride level 109 mEq/L 98-107 Above high normal Chloride Level [place] ([facility]) calcium level 8.8 mg/dL 8.5-10.1 Calcium Level [facility]) ID Date Data Source [id number] 06/01/2020 01:01:00 PM EST [facility]) Name Value Range Interpretation Code Description Data Kassy rce(s) Supporting Document(s) amphetamines level urine positive negative Above high andrea l Amphetamines Level Urine SUSI ([facility]) cocaine metabolite urine positive negative Above high andrea l Cocaine Metabolite Urine SUSI ([facility]) cannabinoids urine positive negative Above high normal Cannabinoi ds Urine SUSI ([facility]) benzodiazepines urine negative negative Benzodiazepine s Urine SUSI ([facility]) barbiturates urine negative negative Barbiturates Urin e SUSI ([facility]) phencyclidine urine negative negative Phencyclidine Ur ine SUSI ([facility]) methadone urine positive negative Above high normal Methadone Uri ne SUSI ([facility]) opiates urine positive negative Above high normal Opiates Urine A THENA ([facility]) ID Date Data Source [id number] 06/01/2020 01:01:00 PM EST SUSI ([facility]) Name Value Range Interpretation Code Description Data Kassy rce(s) Supporting Document(s) HCG, serum qualitative negative negative HCG, Serum Qu alitative SUSI ([facility]) ID Date Data Source [id number] 06/01/2020 01:01:00 PM EST SUSI ([facility]) Name Value Range Interpretation Code Description Data Kassy rce(s) Supporting Document(s) thyroid stimulating hormone 4.060 uIU/mL 0.358-3.740 Above high no rmal Thyroid Stimulating Hormone SUSI ([facility]) ID Date Data Source [id number] 06/01/2020 01:01:00 PM EST SUSI ([facility]) Name Value Range Interpretation Code Description Data Kassy rce(s) Supporting Document(s) acetaminophen level < 2.0 10.0-30.0 Below low normal Acetaminop hen Level SUSI ([facility]) ID Date Data Source [id number] 06/01/2020 01:01:00 PM EST SUSI ([facility]) Name Value Range Interpretation Code Description Data Kassy rce(s) Supporting Document(s) salicylate level < 1.7 5.0-30.0 Below low normal Salicylate Le jose SUSI ([facility]) ID Date Data Source [id number] 06/01/2020 01:01:00 PM EST SUSI ([facility]) Name Value Range Interpretation Code Description Data Kassy rce(s) Supporting Document(s) ethyl alcohol (ethanol) < 0.003 0.000-0.010 Ethyl Alcoh ol (Ethanol) [place] ([facility]) ID Date Data Source [id number] 06/01/2020 01:01:00 PM EST SUSI ([facility]) Name Value Range Interpretation Code Description Data Kassy rce(s) Supporting Document(s) glucose, fasting 129 mg/dL 70-100 Above high normal Glucose, Fas ting [place] ([facility]) blood urea nitrogen 12 mg/dL 7-18 Blood Urea Nitro gen [place] ([facility]) creatinine for GFR 0.83 mg/dL 0.55-1.30 Creatinine for GF R [place] ([facility]) sodium level 136 mEq/L 136-145 Sodium Level SUSI ([facility]) glomerular filtration rate > 60.0 >60 Glomerula r Filtration Rate [place] ([facility]) potassium serum 3.6 mEq/L 3.5-5.1 Potassium Serum ATH NA ([facility]) chloride level 103 mEq/L 98-107 Chloride Level [place] ([facility]) carbon dioxide level 23 mEq/L 21-32 Carbon Dioxide Level [place] ([facility]) anion gap 10 mEq/L 8-16 Anion Gap [place] ([facility]) calcium level 8.8 mg/dL 8.5-10.1 Calcium Level [place] ( [facility]) ID Date Data Source [id number] 06/01/2020 01:01:00 PM [facility] Name Value Range Interpretation Code Description Data Kassy rce(s) Supporting Document(s) AST/SGOT 61 U/L 7-37 Above high normal AST/SGOT SUSI ([facility]) ALT/SGPT 89 U/L 12-78 Above high normal ALT/SGPT SUSI ([facility]) alkaline phosphatase 80 U/L 45-117 Alkaline Phosph atase SUSI ([facility]) bilirubin,total 0.3 mg/dL 0.2-1.0 Bilirubin,total ATHE ([facility]) total protein 8.4 gm/dL 6.4-8.2 Above high normal Total Protein A THENA ([facility]) bilirubin,direct 0.1 mg/dL 0.0-0.2 Bilirubin,direct AT [facility] ([facility]) albumin/globulin ratio 1.2-2.2 Below low normal Albumin /globulin Ratio SUSI ([facility]) albumin 4.2 gm/dL 3.2-5.2 Albumin SUSI ([facility]) ID Date Data Source [id number] 06/01/2020 01:01:00 PM EST SUSI ([facility]) Name Value Range Interpretation Code Description Data Kassy rce(s) Supporting Document(s) white blood count 5.6 10 4.0-10.0 White Blood Count SUSI ([facility]) red blood count 4.07 10 4.00-5.40 Red Blood Count ATHE ([facility]) hemoglobin 12.4 g/dL 12.0-15.5 Hemoglobin SUSI ([facility]) hematocrit 37.8 % 36.0-47.0 Hematocrit SUSI ([facility]) mean corpuscular hemoglobin 30.5 pg 27.0-33.0 Mean Cor puscular Hemoglobin SUSI ([facility]) mean corpuscular HGB conc 32.8 g/dL 32.0-36.5 Mean Corpu scular HGB Conc SUSI ([facility]) mean corpuscular volume 92.9 fL 80.0-96.0 Mean Corpusc ular Volume SUSI ([facility]) neutrophils % 39.6 % 36.0-66.0 Neutrophils % SUSI ( [facility]) red cell distribution width 12.8 % 11.5-14.5 Red Cell Distribution Width SUSI ([facility]) platelet count, automated 205 10 150-450 Platelet C ount, Automated SUSI ([facility]) mono % 8.0 % 0.0-5.0 Above high normal [place] % SUSI ([facility]) lymph % 48.6 % 24.0-44.0 Above high normal Lymph % SUSI ([facility]) baso % 0.9 % 0.0-1.0 Baso % [place] ([facility]) eos % 2.7 % 0.0-3.0 Eos % [place] ([facility]) immature granulocyte % 0.2 % 0-3.0 Immature Gran ulocyte % [place] ([facility]) nucleated red blood cell % 0.0 % 0-0 Nucleated Red Blood Cell % [place] ([facility]) neutrophils # 2.2 10 1.5-8.5 Neutrophils # SUSI ( [facility]) lymph # 2.7 10 1.5-5.0 Lymph # SUSI ([facility]) mono # 0.5 10 0.0-0.8 [place] # SUSI ([facility]) eos # 0.2 10 0.0-0.5 Eos # USSI ([facility]) baso # 0.1 10 0.0-0.2 Baso # SUSI ([facility]) ID Date Data Source [id number] 05/07/2020 09:44:00 AM EDT [facility] Name Value Range Interpretation Code Description Data Kassy rce(s) Supporting Document(s) Free T4 (Free Thyroxine) 0.76-1.46 Normal (applies to non -numeric results) [facility] ID Date Data Source [id number] 05/07/2020 09:44:00 AM EDT [facility] Name Value Range Interpretation Code Description Data Kassy rce(s) Supporting Document(s) Thyroid Stimulate Hormone TSH 0.358-3.740 Above high andrea l [facility] ID Date Data Source [id number] 04/30/2020 01:37:00 PM EDT [facility] Name: CELY SIMS [facility] Rec #: [id number] 14 : 1985 Age/Sex: 34F Date of Service: 04/30/20 DISPOSITION SUMMARY Discharge Summary [facility] Name:Cely Sims Emergency Department Age:34 yrs Sex:Female [...] Discharge Instruction: Discharge Summary Sheet, Constipation, Adult, Ogyc-jx-Lloj, Medication Reconciliation Name Value Range Interpretation Code Description Data Kassy rce(s) Supporting Document(s) ID Date Data Source [id number] 04/30/2020 01:37:00 PM EDT [facility] Name: CELY SIMS [facility] Rec #: [id number] 14 : 1985 Age/Sex: 34F Date of Service: 04/30/20 PHYSICIAN CHART Physician Documentation [facility] Name: Cely Sims Age: 34 yrs Sex: [...] fevers, headaches, chest pain, shortness of breath.. 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 ROS: 14:40 Constitutional: Negative for fever, chills, [...] rate of 83 zrw1 beats per minute. WI 168ms. QRS 94ms. QT 426. Normal axis. [...] 14:27 Order name: UA.; Complete Time: 15:19 [facility] 04/30 15:02 Interpretation: Ur Color Yellow; Ur Clarity Clear; Ur Leuk zrw1 Est 2+ Mod; Ur Nitrite Negative. 04/30 14:39 Order name: POC Urine HCG for ED; Complete Time: 15:19 dk2 04/30 15:54 Interpretation: POC ED Ur HCG NEGATIVE. [facility] 04/30 14:27 Order name: Ct Abdomen & Pelvis with Con w 04/30 14:27 Order name: Collect Urine - Clean Catch; Complete Time: zrw 14:33 04/30 14:58 Order name: Urinalysis Auto w/Microscopy [facility] 04/30 14:58 Order name: Urine Culture [facility] 04/30 15:02 Order name: Emergency Room EKG Order - Use EKG Work-Up w1 /Quick Select; Complete Time: 15:28 04/30 15:02 Order name: Cardiology EKG Interpretation - Choose Reason [facility] 04/30 14:27 Order name: Iv Saline Lock; Complete Time: 14:44 zrw1 04/30 14:27 Order name: NPO; Complete Time: 14:34 zrw1 04/30 14:27 Order name: POC - Collect UHCG; Complete Time: 14:39 [facility] 04/30 16:17 Order name: Phillip Enema: [...] Discharge Summary Sheet zrw1 - Constipation, Adult, Kmdw-uj-Wyvq zrw1 Forms: - Medication Reconciliation zrw1 Prescriptions: [...] rce(s) Supporting Document(s) ID Date Data Source [id number] 04/30/2020 01:37:00 PM EDT [facility] Name: CELY SIMS [facility] Rec #: [id number] 14 : 1985 Age/Sex: 34F Date of Service: 04/30/20 NURSE CHART Nurse's Notes [facility] Name: Cely Sims Age: 34 yrs Sex: Female : 1985 Arrival Date: 04/30/2020 Time: 13:37 Bed 8 Private MD: Rehab, Provider Diagnosis: Abdominal Pain, Unspecified;Constipation, unspecified Presentation: 04/30 13:38 Acuity: Urgent - 3 awr 13:56 Transition of care: patient was not received from another [facility] setting of care. Presenting complaint: Patient states - She has not had a BM in the last two days despite using suppositories.. Pt is currently at our rehab facility. Have you travelled in the last 30 days? Yes, Where have you travelled? From [place]. . Have you had contact with an [...] Abdomen is distended, The patient reports constipation. 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 Screenin:06 AUDIT 1. How often do you [...] rce(s) Supporting Document(s) ID Date Data Source [id number] 05/01/2020 09:27:00 AM EDT [facility] Name: CELY SIMS : 1985 A ge/Sex: 34F Ordering Provider: LEA White Med Rec #: [id number] Reg Status:[facility] ER Room #: Date of Service: 04/30/20 Report Number: [id number] cc: PCP None; LEA White Send Report To: Reason for exam: ABDOMINAL PAIN SINUS RHYTHM POSSIBLE RIGHT VENTRICULAR CONDUCTION DELAY BORDERLINE ECG Compared to 04/18/2020 there is no significant change Physician Developmental Psychologist: Serafin Daugherty M.D. ECG HEART RATE: 83 /min ECG RR INTERVAL: 716 ms ECG P DURATION: 119 ms ECG QRS DURATION: 94 ms ECG WI INTERVAL: 168 ms ECG QT INTERVAL: 426 ms ECG QTC INTERVAL: 466 ms Q-T dispersion: ms ECG P AXIS: 42 deg ECG QRS AXIS: 21 deg ECG T AXIS: 33 deg REPORT SIGNATURE ON FILE 05/01/20927 Reported By: Serafin Daugherty MD, [facility] <<Signature on File>> Exam Date/Time: 04/30/20 1523 Order #: [id number] Dictation Date/Time: 05/01/20926 Transcribed Date/Time: 05/01/20926 Pacs Administrator: LETICIA Name Value Range Interpretation Code Description Data Kassy rce(s) Supporting Document(s) ID Date Data Source [id number] 05/02/2020 10:45:00 AM EDT [facility] Name Value Range Interpretation Code Description Data Kassy rce(s) Supporting Document(s) Urine Culture Normal (applies to non-numeric re sults) [facility] ID Date Data Source [id number] 04/30/2020 03:21:00 PM EDT [facility] Name Value Range Interpretation Code Description Data Kassy rce(s) Supporting Document(s) Sodium 142 mmol/L 137-145 Normal (applies to non-numeric resul ts) [facility] Potassium 3.5-5.1 Normal (applies to non-numeric resul ts) [facility] Chloride 113 mmol/L 98-112 Above high normal [facility] Carbon Dioxide CO2 22.0-33.0 Normal (applies to non-numer ic results) [facility] Anion Gap 4.0-11.0 Normal (applies to non-numeric resul ts) [facility] BUN 17 mg/dL 7-17 Normal (applies to non-numeric resul ts) [facility] Creatinine 0.70-1.20 Normal (applies to non-numeric resul ts) [facility] GFR 85 mL/min >60 Normal (applies to non-numeric resul ts) [facility] Result based on MDRD formula. Glucose Level 85 mg/dL 74-99 Normal (applies to non-numeric re sults) [facility] The reference range is only applicable w hen fasting. Calcium-Uncorrected 8.4-10.2 Normal (applies to non-nume claudia results) [facility] Corrected Calcium 8.4-10.2 Normal (applies to non-numeri c results) [facility] Bilirubin,Total 0.2-1.3 Below low normal [facility] SGOT(AST) 37 U/L 14-36 Above high normal [facility] SGPT(ALT) 37 U/L 9-52 Normal (applies to non-numeric resul ts) [facility] Alkaline Phosphatase 81 U/L 38-126 Normal (applies to non-num clementine results) [facility] can increase Alkaline Phosp le vels up to 2 times the normal adult value. Normal values for children and adolescents are 2 to 3 times the normal adult value. Total Protein 6.3-8.2 Normal (applies to non-numeric re sults) [facility] Albumin 3.5-5.0 Normal (applies to non-numeric resul ts) [facility] ID Date Data Source [id number] 04/30/2020 03:21:00 PM EDT [facility] Name Value Range Interpretation Code Description Data Kassy rce(s) Supporting Document(s) C-Reactive Protein,Wide Range <3.00 Normal (applies t o non-numeric results) [facility] ID Date Data Source [id number] 04/30/2020 03:21:00 PM EDT [facility] Name Value Range Interpretation Code Description Data Kassy rce(s) Supporting Document(s) Lipase 85 U/L 73-393 Normal (applies to non-numeric resul ts) [facility] ID Date Data Source [id number] 04/30/2020 03:07:00 PM EDT [facility] Name Value Range Interpretation Code Description Data Kassy rce(s) Supporting Document(s) White Blood Count 4.8-10.8 Normal (applies to non-numeri c results) [facility] Red Blood Count 3.68-5.22 Normal (applies to non-numeric results) [facility] Hemoglobin 11.2-15.7 Normal (applies to non-numeric resul ts) [facility] Hematocrit 34.1-44.9 Normal (applies to non-numeric resul ts) [facility] Mean Corpuscular Volume 81-99 Normal (applies to non- numeric results) [facility] Mean Corpuscular Hemoglobin 27.0-33.0 Normal (appli es to non-numeric results) [facility] Mean Corpuscular HGB Conc 32.0-36.0 Normal (applies to no n-numeric results) [facility] Red Cell Distribution Width 11.5-14.5 Normal (appli es to non-numeric results) [facility] Platelet Count 240 X10 3/uL 130-450 Normal (applies to non-numeric results) [facility] Mean Platelet Volume 9.5-12.7 Normal (applies to non-num clementine results) [facility] Imm Grans% (AUTO) 0 % 0-2 Normal (applies to non-numeri c results) [facility] Neutrophils % (AUTO) 42 % 40-75 Normal (applies to non-num clementine results) [facility] Lymphocytes % (AUTO) 46 % 21-46 Normal (applies to non-num clementine results) [facility] Monocytes % (AUTO) 7 % 5-12 Normal (applies to non-numer ic results) [facility] Eosinophils % (AUTO) 3 % 1-5 Normal (applies to non-num clementine results) [facility] Basophils % (AUTO) 1 % 0-1 Normal (applies to non-numer ic results) [facility] Imm Grans# (AUTO) 0.0-0.5 Normal (applies to non-numeri c results) [facility] Neutrophils # (AUTO) 1.5-8.1 Normal (applies to non-num clementine results) [facility] Lymphocytes # (AUTO) 1.0-3.1 Above high normal [facility] Monocytes # (AUTO) 0.2-1.3 Normal (applies to non-numer ic results) [facility] Eosinophils# (AUTO) 0.0-0.5 Normal (applies to non-nume claudia results) [facility] Basophils # (AUTO) 0.0-0.1 Normal (applies to non-numer ic results) [facility] ID Date Data Source [id number] 04/30/2020 03:15:00 PM EDT [facility] Control Line Present? YPerformed by: R EEANUrine HCG Screen Result: NEGATIVE Name Value Range Interpretation Code Description Data Kassy rce(s) Supporting Document(s) POC ED Urine HCG NEGATIVE Normal (applies to non-numeric results) [facility] ID Date Data Source [id number] 04/30/2020 03:10:00 PM EDT [facility] Name Value Range Interpretation Code Description Data Kassy rce(s) Supporting Document(s) Color,Urine Yellow Normal (applies to non-numeric resu lts) [facility] Clarity,Urine Clear Normal (applies to non-numeric re sults) [facility] Specific [place],Urine 1.001-1.030 Normal (applies to non- numeric results) [facility] PH,Urine 4.6-8.0 Normal (applies to non-numeric resul ts) [facility] Protein,Urine Negative Normal (applies to non-numeric re sults) [facility] Glucose,Urine (UA) Negative Normal (applies to non-numer ic results) [facility] Ketones,Urine Negative Normal (applies to non-numeric re sults) [facility] Blood,Urine Negative Normal (applies to non-numeric resu lts) [facility] Bilirubin,Urine Negative Normal (applies to non-numeric results) [facility] Urobilinogen,Urine Norm 0.2-1 Normal (applies to non-numer ic results) [facility] Leukocyte Esterase,Urine Negative [facility] Nitrite,Urine Negative Normal (applies to non-numeric re sults) [facility] ID Date Data Source [id number] 04/30/2020 03:10:00 PM EDT [facility] Name Value Range Interpretation Code Description Data Kassy rce(s) Supporting Document(s) WBC,URINE 0-10 [facility] RBC,Urine 0-2 Normal (applies to non-numeric resul ts) [facility] Hyaline Casts,Ur None Seen Normal (applies to non-numeric results) [facility] Bacteria,Urine None Seen [facility] Epithelial Cell,Ur None-Few Bhag[facility] ID Date Data Source [id number] 05/01/2020 06:14:00 AM EDT [facility] Name: CELY SIMS : 1985 A ge/Sex: 34F Ordering Provider: LEA White Med Rec #: [id number] Reg Status: [facility] ER Room #: Date of Service: 04/30/20 Report Number: [id number] cc:PCP None Send Report To: [id number] CT/CT Abdomen & Pelvis w Con Reason [...] Date/Time: 04/30/20 1541 Transcribed Date/Time: 05/01/20 0614 Pacs Administrator: CHEL Name Value Range Interpretation Code Description Data Kassy rce(s) Supporting Document(s) ID Date Data Source [id number] 04/23/2020 09:55:00 AM EDT [facility] Name Value Range Interpretation Code Description Data Kassy rce(s) Supporting Document(s) Free T4 (Free Thyroxine) 0.76-1.46 Normal (applies to non -numeric results) [facility] ID Date Data Source [id number] 04/23/2020 09:55:00 AM EDT [facility] Name Value Range Interpretation Code Description Data Kassy rce(s) Supporting Document(s) Thyroid Stimulate Hormone TSH 0.358-3.740 Above high andrea l [facility] ID Date Data Source [id number] 04/18/2020 03:52:00 PM EDT [facility] Name: CELY SIMS : 1985 A ge/Sex: 34F Ordering Provider: Stephanie TATE Med Rec #: [id number] Reg Status:ADM IN Room #: 156-2 Date of Service: 04/18/20 Report Number: [id number] cc: Stephanie TAET; Annelise Gray MD Send Report To: Reason for exam: chest pain with cocaine SINUS RHYTHM POSSIBLE LEFT ATRIAL ENLARGEMENT POSSIBLE RIGHT VENTRICULAR CONDUCTION DELAY NONSPECIFIC T-WAVE ABNORMALITY Physician Developmental Psychologist: Dr. Ben Tillman M.D. ECG HEART RATE: 78 /min ECG RR INTERVAL: 765 ms ECG P DURATION: 115 ms ECG QRS DURATION: 90 ms ECG WI INTERVAL: 143 ms ECG QT INTERVAL: 426 ms ECG QTC INTERVAL: 457 ms Q-T dispersion: ms ECG P AXIS: 71 deg ECG QRS AXIS: 72 deg ECG T AXIS: 32 deg REPORT SIGNATURE ON FILE 04/18/201551 Reported By: Ben Tillman MD <<Signature on File>> Exam Date/Time: 04/18/20 0759 Order #: [id number] Dictation Date/Time: 04/18/201551 Transcribed Date/Time: 04/18/201551 Pacs Administrator: LETICIA Name Value Range Interpretation Code Description Data Kassy rce(s) Supporting Document(s) ID Date Data Source [id number] 04/17/2020 11:39:00 AM EDT [facility] Name Value Range Interpretation Code Description Data Kassy rce(s) Supporting Document(s) Hep Bs Ag Result T-Test Nonreactive Normal (applies to non -numeric results) [facility] ID Date Data Source [id number] 04/17/2020 11:39:00 AM EDT [facility] Value Range Interpretation Code Description Data Kassy rce(s) Supporting Document(s) Syphilis Serology Nonreactive Normal (applies to non-numer ic results) [facility] ID Date Data Source [id number] 04/17/2020 11:39:00 AM EDT [facility] Value Range Interpretation Code Description Data Kassy rce(s) Supporting Document(s) HAVM Nonreactive Normal (applies to non-numeric resu lts) [facility] ID Date Data Source [id number] 04/17/2020 11:39:00 AM EDT [facility] Value Range Interpretation Code Description Data Kassy rce(s) Supporting Document(s) Vitamin D,Total (25OH) 30.0-100.0 Below low normal [facility] Reference Range: <10 ng/mL: Deficien t 10-30 ng/mL: Insufficient 30-100 ng/mL: Sufficient >100 ng/mL: Toxicity possible ID Date Data Source [id number] 04/17/2020 10:44:00 AM EDT [facility] Value Range Interpretation Code Description Data Kassy rce(s) Supporting Document(s) C-Reactive Protein,Wide Range <3.00 Normal (applies t o non-numeric results) [facility] ID Date Data Source [id number] 04/17/2020 10:44:00 AM EDT [facility] Value Range Interpretation Code Description Data Kassy rce(s) Supporting Document(s) Magnesium 1.80-2.40 Normal (applies to non-numeric resul ts) [facility] ID Date Data Source [id number] 04/17/2020 10:44:00 AM EDT [facility] Name Value Range Interpretation Code Description [facility] Document(s) Sodium 137 mmol/L 137-145 Normal (applies to non-numeric resul ts) [facility] Potassium 3.5-5.1 Normal (applies to non-numeric resul ts) [facility] Chloride 110 mmol/L 98-112 Normal (applies to non-numeric resul ts) [facility] Carbon Dioxide CO2 22.0-33.0 Below low normal [facility] Anion Gap 4.0-11.0 Normal (applies to non-numeric resul ts) [facility] BUN 16 mg/dL 7-17 Normal (applies to non-numeric resul ts) [facility] Creatinine 0.70-1.20 Normal (applies to non-numeric resul ts) [facility] GFR 88 mL/min >60 Normal (applies to non-numeric resul ts) [facility] Result based on MDRD formula. Glucose Level 94 mg/dL 74-99 Normal (applies to non-numeric re sults) [facility] The reference range is only applicable w hen fasting. Calcium-Uncorrected 8.4-10.2 Normal (applies to non-nume claudia results) [facility] Corrected Calcium 8.4-10.2 Normal (applies to non-numeri c results) [facility] Bilirubin,Total 0.2-1.3 Normal (applies to non-numeric results) [facility] Bilirubin,Direct 0.0-0.3 Normal (applies to non-numeric results) [facility] SGOT(AST) 32 U/L 14-36 Normal (applies to non-numeric resul ts) [facility] SGPT(ALT) 35 U/L 9-52 Normal (applies to non-numeric resul ts) [facility] Alkaline Phosphatase 70 U/L 38-126 Normal (applies to non-num clementine results) [facility] can increase Alkaline Phosp le vels up to 2 times the normal adult value. Normal values for children and adolescents are 2 to 3 times the normal adult value. CPK 172 U/L 26-192 Normal (applies to non-numeric resul ts) [facility] Total Protein 6.3-8.2 Normal (applies to non-numeric re sults) [facility] Albumin 3.5-5.0 Normal (applies to non-numeric resul ts) [facility] Thyroid Stimulate Hormone TSH 0.358-3.740 Above high andrea l [facility] ID Date Data Source [id number] 04/17/2020 10:07:00 AM EDT [facility] Name Value Range Interpretation Code Description Data Kassy rce(s) Supporting Document(s) White Blood Count 4.8-10.8 Normal (applies to non-numeri c results) [facility] Red Blood Count 3.68-5.22 Normal (applies to non-numeric results) [facility] Hemoglobin 11.2-15.7 Normal (applies to non-numeric resul ts) [facility] Hematocrit 34.1-44.9 Below low normal [facility] Mean Corpuscular Volume 81-99 Normal (applies to non- numeric results) [facility] Mean Corpuscular Hemoglobin 27.0-33.0 Normal (appli es to non-numeric results) [facility] Mean Corpuscular HGB Conc 32.0-36.0 Normal (applies to no n-numeric results) [facility] Red Cell Distribution Width 11.5-14.5 Normal (appli es to non-numeric results) [facility] Platelet Count 197 X10 3/uL 130-450 Normal (applies to non-numeric results) [facility] Mean Platelet Volume 9.5-12.7 Normal (applies to non-num clementine results) [facility] Imm Grans% (AUTO) 0 % 0-2 Normal (applies to non-numeri c results) [facility] Neutrophils % (AUTO) 46 % 40-75 Normal (applies to non-num clementine results) [facility] Lymphocytes % (AUTO) 42 % 21-46 Normal (applies to non-num clementine results) [facility] Monocytes % (AUTO) 9 % 5-12 Normal (applies to non-numer ic results) [facility] Eosinophils % (AUTO) 3 % 1-5 Normal (applies to non-num clementine results) [facility] Basophils % (AUTO) 1 % 0-1 Normal (applies to non-numer ic results) [facility] Imm Grans# (AUTO) 0.0-0.5 Normal (applies to non-numeri c results) [facility] Neutrophils # (AUTO) 1.5-8.1 Normal (applies to non-num clementine results) [facility] Lymphocytes # (AUTO) 1.0-3.1 Normal (applies to non-num clementine results) [facility] Monocytes # (AUTO) 0.2-1.3 Normal (applies to non-numer ic results) [facility] Eosinophils# (AUTO) 0.0-0.5 Normal (applies to non-nume claudia results) [facility] Basophils # (AUTO) 0.0-0.1 Normal (applies to non-numer ic results) [facility] ID Date Data Source [id number] 04/16/2020 11:13:00 AM EDT [facility] Name Value Range Interpretation Code Description Data Kassy rce(s) Supporting Document(s) Respiratory specimen severe acute respir atory syndrome coronavirus 2 (SARS-CoV-2) RNA [facility] ital This lab was ordered by [facility] lola and reported by [facility]. ID Date Data Source [id number] 04/16/2020 03:13:00 PM EDT [facility] Name Value Range Interpretation Code Description Data Kassy rce(s) Supporting Document(s) Opiate Screen,Urine Negative Normal (applies to non-nume claudia results) [facility] Amphetamine Screen,Urine Negative Normal (applies to non -numeric results) [facility] Benzodiazepines Scrn,Ur result Negative N ormal (applies to non-numeric results) [facility] Cocaine Screen,Urine Negative Normal (applies to non-num clementine results) [facility] Methadone Screen,Urine Negative Normal (applies to non-n umeric results) [facility] Cannabinoid Screen, Ur Negative Normal (applies to non-n umeric results) [facility] Therapeutic Drug Ranges for Emergency an d Rehabilitation Threshold Levels (ng/mL) Cocaine 300 Opiates 300 Cannabinoids 50 Barbiturates 200 Benzodiazepine 200 Methadone 300 Amphetamines 1000 All positive find ings are presumptive and unconfirmed. Confirmation of positive results are performed only at request of provider. Unconfirmed results must not be used for non-medical purposes (i.e. pre-employment and legal purposes) ID Date Data Source [id number] 04/16/2020 02:00:00 PM EDT [facility] Name Value Range Interpretation Code Description Data Kassy rce(s) Supporting Document(s) Color,Urine Yellow Normal (applies to non-numeric resu lts) [facility] Clarity,Urine Clear Normal (applies to non-numeric re sults) [facility] Specific [place],Urine 1.001-1.030 Normal (applies to non- numeric results) [facility] PH,Urine 5.0-8.0 Normal (applies to non-numeric resul ts) [facility] Protein,Urine Negative Normal (applies to non-numeric re sults) [facility] Glucose,Urine (UA) Negative Normal (applies to non-numer ic results) [facility] Ketones,Urine Negative Normal (applies to non-numeric re sults) [facility] Blood,Urine Negative Normal (applies to non-numeric resu lts) [facility] Bilirubin,Urine Negative Normal (applies to non-numeric results) [facility] Urobilinogen,Urine Norm 0.2-1 Normal (applies to non-numer ic results) [facility] Leukocyte Esterase,Urine Negative Normal (applies to non -numeric results) [facility] Nitrite,Urine Negative Normal (applies to non-numeric re sults) [facility] ID Date Data Source [id number] 04/16/2020 02:00:00 PM EDT [facility] Name Value Range Interpretation Code Description Data Kassy rce(s) Supporting Document(s) Urine HCG Negative Normal (applies to non-numeric resul ts) [facility] ID Date Data Source [id number] 04/16/2020 11:13:00 AM EDT [facility] First test? UNKNOWNEmployed in healthca re? UNKNOWNSymptomatic per CDC? UNKNOWNHospitalized? UNKNOWNICU? UNKNOWNResident in congregated care? ex group home, [facility] UNKNOWN? UNKNOWN Name Value Range Interpretation Code Description Data Kassy rce(s) Supporting Document(s) SARS-CoV-2 RNA Negative Normal (applies to non-numeric r esults) [facility] Negative results should be treated as pr [...] Certificate of Accreditation. Factsheets for healthcare providers: https://www.fda.gov/media/434511/download Factsheets for patients: https://www.fda.gov/media/704124/download THIS IS A STATE REPORTABLE COMMUNICABLE DISEASE. Manual entry verified by Jessika Villareal 04/16/20 1112 Procedure Social History Code Duration Value Status Description Data Source(s ) Smoking 04/14/2021 12:00:00 AM EDT Smoker, current status unkn own completed Smoker, current status unknown [facility] 09/15/2020 12:00:00 AM EST Heavy cigarette smoker (20- 39 cigs/day) completed Heavy cigarette smoker (20-39 cigs/day) [facility] Vital Signs ID Date Data Source UNK Name Value Range Interpretation Code Description Data Source(s) Diastolic blood pressure 73 mm[Hg] 73 mm[Hg] SUSI ([facility]) Systolic blood pressure 104 mm[Hg] 104 mm[Hg] A THENA ([facility]) Body weight 0 [oz_av] 1920 [oz_av] SUSI ([facility]) Body height 154.94 cm 154.94 cm [facility] ([facility]) Body weight 59.239 kg 59.239 kg [facility] ([facility]) Systolic blood pressure 120 mm[Hg] 120 mm[Hg] N [facility] ([facility]) Diastolic blood pressure 77 mm[Hg] 77 mm[Hg] [facility] ([facility]) Body mass index (BMI) [Ratio] 24.68 kg/m2 24.68 kg/m2 [facility] ([facility]) Body height 154.94 cm 154.94 cm [facility] ([facility]) Body weight 58.967 kg 58.967 kg [facility] ([facility]) Body mass index (BMI) [Ratio] 24.56 kg/m2 24.56 kg/m2 [facility] ([facility]) ID Date Data Source [id number] 02/23/2021 10:02:00 AM EDT [facility] Name Value Range Interpretation Code Description Data Source(s) Weight (Calculated Kilograms) 55.34 55.34 [facility] Height (Calculated Centimeters) 154.94 154. 94 [facility] Body Mass Index (BMI) 23.0 23.0 [facility] ID Date Data Source [id number] 03/09/2021 03:19:00 PM EDT [facility] Name Value Range Interpretation Code Description Data Source(s) Weight Measurement Method 1 1 [facility] Weight (Calculated Kilograms) 55.34 55.34 [facility] Weight 2144 2144 [facility] Temperature Source 7 7 [facility] Temperature 96.4 96.4 [facility] Respiratory Effort 1 1 [facility] Respiratory Rate 16 16 [facility] Pulse Assessment Method 4 4 [facility] Pulse Rate 117 117 [facility] Height (Calculated Centimeters) 154.94 154. 94 [facility] Height 61 61 [facility] Blood Pressure 110/70 110/70 [facility] Body Mass Index (BMI) 23.0 23.0 [facility] Weight Measurement Method 1 1 [facility] Weight (Calculated Kilograms) 55.34 55.34 [facility] Weight 2144 2144 [facility] Temperature Source 7 7 [facility] Temperature 96.4 96.4 [facility] Respiratory Effort 1 1 [facility] Respiratory Rate 16 16 [facility] Pulse Assessment Method 4 4 [facility] Pulse Rate 117 117 [facility] Height (Calculated Centimeters) 154.94 154. 94 [facility] Height 61 61 [facility] Blood Pressure 110/70 110/70 [facility] Body Mass Index (BMI) 23.0 23.0 [facility] Weight Measurement Method 1 1 [facility] Weight (Calculated Kilograms) 55.34 55.34 [facility] Weight 2144 2144 [facility] Temperature Source 7 7 [facility] Temperature 96.4 96.4 [facility] Respiratory Effort 1 1 [facility] Respiratory Rate 16 16 [facility] Pulse Assessment Method 4 4 [facility] Pulse Rate 117 117 [facility] Height (Calculated Centimeters) 154.94 154. 94 [facility] Height 61 61 [facility] Blood Pressure 110/70 110/70 [facility] Body Mass Index (BMI) 23.0 23.0 [facility] Weight Measurement Method 1 1 [facility] Weight (Calculated Kilograms) 55.34 55.34 [facility] Weight 1983 1983 [facility] Temperature Source 7 7 [facility] Temperature 97.3 97.3 [facility] Respiratory Effort 1 1 [facility] Respiratory Rate 14 14 [facility] Pulse Assessment Method 4 4 [facility] Pulse Rate 69 69 [facility] Height (Calculated Centimeters) 154.94 154. 94 [facility] Height 61 61 [facility] Blood Pressure 112/79 112/79 [facility] Body Mass Index (BMI) 23.0 23.0 [facility] Weight Measurement Method 1 1 [facility] Weight (Calculated Kilograms) 55.34 55.34 [facility] Weight 1983 1983 [facility] Temperature Source 7 7 [facility] Temperature 97.1 97.1 [facility] Respiratory Effort 1 1 [facility] Respiratory Rate 16 16 [facility] Pulse Assessment Method 4 4 [facility] Pulse Rate 74 74 [facility] Height (Calculated Centimeters) 154.94 154. 94 [facility] Height 61 61 [facility] Blood Pressure 110/74 110/74 [facility] Body Mass Index (BMI) 23.0 23.0 [facility] Weight (Calculated Kilograms) 56.25 56.25 [facility] Height (Calculated Centimeters) 154.94 154. 94 [facility] Body Mass Index (BMI) 23.4 23.4 [facility] ID Date Data Source [id number] 05/07/2020 09:12:00 AM EDT [facility] Name Value Range Interpretation Code Description Data Source(s) Weight (Calculated Kilograms) 56.25 56.25 [facility] Height (Calculated Centimeters) 154.94 154. 94 [facility] Body Mass Index (BMI) 23.4 23.4 [facility] Weight (Calculated Kilograms) 56.25 56.25 [facility] Height (Calculated Centimeters) 154.94 154. 94 [facility] Body Mass Index (BMI) 23.4 23.4 [facility] Weight (Calculated Kilograms) 56.25 56.25 [facility] Height (Calculated Centimeters) 154.94 154. 94 [facility] Body Mass Index (BMI) 23.4 23.4 [facility] Weight (Calculated Kilograms) 56.25 56.25 [facility] Height (Calculated Centimeters) 154.94 154. 94 [facility] Body Mass Index (BMI) 23.4 23.4 [facility] ID Date Data Source [id number] 05/19/2020 05:30:00 AM EDT [facility] Name Value Range Interpretation Code Description Data Source(s) Weight Measurement Method 1 1 [facility] Weight (Calculated Kilograms) 56.25 56.25 [facility] Weight 2063 2063 [facility] Temperature Source 7 7 [facility] Temperature 97.5 97.5 [facility] Respiratory Effort 1 1 [facility] Respiratory Rate 15 15 [facility] Pulse Assessment Method 4 4 [facility] Pulse Rate 83 83 [facility] Height (Calculated Centimeters) 154.94 154. 94 [facility] Height 61 61 [facility] Blood Pressure 109/75 109/75 [facility] Body Mass Index (BMI) 23.4 23.4 [facility] Weight Measurement Method 1 1 [facility] Weight (Calculated Kilograms) 56.25 56.25 [facility] Weight 2063 2063 [facility] Temperature Source 7 7 [facility] Temperature 97.5 97.5 [facility] Respiratory Effort 1 1 [facility] Respiratory Rate 15 15 [facility] Pulse Assessment Method 4 4 [facility] Pulse Rate 83 83 [facility] Height (Calculated Centimeters) 154.94 154. 94 [facility] Height 61 61 [facility] Blood Pressure 109/75 109/75 [facility] Body Mass Index (BMI) 23.4 23.4 [facility] Weight Measurement Method 1 1 [facility] Weight (Calculated Kilograms) 56.25 56.25 [facility] Weight 2063 2063 [facility] Temperature Source 7 7 [facility] Temperature 97.5 97.5 [facility] Respiratory Effort 1 1 [facility] Respiratory Rate 15 15 [facility] Pulse Assessment Method 4 4 [facility] Pulse Rate 83 83 [facility] Height (Calculated Centimeters) 154.94 154. 94 [facility] Height 61 61 [facility] Blood Pressure 109/75 109/75 [facility] Body Mass Index (BMI) 23.4 23.4 [facility] Weight Measurement Method 1 1 [facility] Weight (Calculated Kilograms) 56.25 56.25 [facility] Weight 2063 2063 [facility] Temperature Source 7 7 [facility] Temperature 97.5 97.5 [facility] Respiratory Effort 1 1 [facility] Respiratory Rate 15 15 [facility] Pulse Assessment Method 4 4 [facility] Pulse Rate 83 83 [facility] Height (Calculated Centimeters) 154.94 154. 94 [facility] Height 61 61 [facility] Blood Pressure 109/75 109/75 [facility] Body Mass Index (BMI) 23.4 23.4 [facility] Weight Measurement Method 1 1 [facility] Weight (Calculated Kilograms) 56.25 56.25 [facility] Weight 1983 1983 [facility] Temperature Source 7 7 [facility] Temperature 96.9 96.9 [facility] Respiratory Effort 1 1 [facility] Respiratory Rate 15 15 [facility] Pulse Assessment Method 4 4 [facility] Pulse Rate 90 90 [facility] Height (Calculated Centimeters) 154.94 154. 94 [facility] Height 61 61 [facility] Blood Pressure 104/67 104/67 [facility] Body Mass Index (BMI) 23.4 23.4 [facility] Weight Measurement Method 1 1 [facility] Weight (Calculated Kilograms) 56.25 56.25 [facility] Weight 1983 1983 [facility] Temperature Source 7 7 [facility] Temperature 97.8 97.8 [facility] Respiratory Effort 1 1 [facility] Respiratory Rate 17 17 [facility] Pulse Assessment Method 4 4 [facility] Pulse Rate 93 93 [facility] Height (Calculated Centimeters) 154.94 154. 94 [facility] Height 61 61 [facility] Blood Pressure 110/87 110/87 [facility] Body Mass Index (BMI) 23.4 23.4 [facility] Weight (Calculated Kilograms) 72.12 72.12 [facility] Height (Calculated Centimeters) 154.94 154. 94 [facility] Body Mass Index (BMI) 30.0 30.0 [facility] Patient Treatment Plan of Care Planned Activity Planned Date Details Description Data Source (s) Sertraline 50 MG Oral Tablet [Zoloft] 01/18/2021 12:00:00 AM [facility]. Risperidone 3 MG Oral Tablet [Risperdal] 01/18/2021 12:00:00 AM [facility] Prazosin 2 MG Oral Capsule [Minipress] 01/18/2021 12:00:00 AM [facility] olanzapine 15 MG Oral Tablet 01/18/2021 12:00:00 AM [facility] Multi-Vit/Mineral (Multivitamin Tablet) 1 TAB TAB 01/18/2021 12: 00:00 AM [facility] Mirtazapine 15 MG Oral Tablet [facility] MG Oral Tablet 01/18/2021 12:00:00 AM [facility] Docusate Sodium 100 MG Oral Capsule [Colace] 01/18/2021 12:00:00 AM [facility] Buprenorphine 8 MG / Naloxone 2 MG Oral Strip [Suboxon e] 01/18/2021 12:00:00 AM [facility] Metronidazole 500 MG Oral Tablet 09/22/2020 12:00:00 AM EST [facility] ([facility]) 168 HR Ethinyl Estradiol 0.14896 MG/HR / norelgestromin 0.36807 MG/HR Transdermal Patch [Xulane] 03/03/2020 12:00:00 AM EDT [facility] ([facility]) Trazodone Hydrochloride 100 MG Oral Tablet [facility] ([facility]) topiramate 50 MG Oral Tablet [facility] ([facility]) topiramate 25 MG Oral Tablet [facility] ([facility]) Sulfamethoxazole 800 MG / Trimethoprim 160 MG Oral Tablet [facility] ([facility]) Sertraline 50 MG Oral Tablet [facility] ([facility]) Sertraline 25 MG Oral Tablet [facility] ([facility]) Sertraline 100 MG Oral Tablet [facility] ([facility]) Risperidone 3 MG Oral Tablet [facility] ([facility]) Risperidone 2 MG Oral Tablet [facility] ([facility]) Prazosin 2 MG Oral Capsule A [facility] ([facility]) Prazosin 1 MG Oral Capsule [facility] 24 HR paliperidone 6 MG Extended Release Oral Tablet [facility] ([facility]) 24 HR paliperidone 3 MG Extended Release Oral Tablet [facility] ([facility]) 24 HR Oxybutynin chloride 5 MG Extended Release Oral Tablet [facility] ([facility]) 24 HR Oxybutynin chloride 10 MG Extended Release Oral Tablet [facility] ([facility]) olanzapine 5 MG Oral Tablet [facility] ([facility]) olanzapine 5 MG Disintegrating Oral Tablet [facility] ([facility]) benztropine mesylate 1 MG Oral Tablet [facility] ([facility]) atomoxetine 40 MG Oral Capsule [facility] ([facility]) atomoxetine 10 MG Oral Capsule [facility] ([facility]) aripiprazole 2 MG Oral Tablet [facility] ([facility]) Amitriptyline Hydrochloride 25 MG Oral Tablet [facility] ([facility]) Sertraline 50 MG Oral Tablet [Zoloft] [facility]. Risperidone 3 MG Oral Tablet [Risperdal] [facility] Prazosin 2 MG Oral Capsule [Minipress] [facility] olanzapine 15 MG Oral Tablet [facility] Mirtazapine 15 MG Oral Tablet [facility] gabapentin 600 MG Oral Tablet [facility] Docusate Sodium 100 MG Oral Capsule [Colace] [facility]. Buprenorphine 8 MG / Naloxone 2 MG Oral Strip [Suboxone] [facility] topiramate 50 MG Oral Tablet [Topamax] [facility] ([facility]) olanzapine 10 MG Oral Tablet [facility] ([facility]) Naproxen 500 MG Oral Tablet [facility] ([facility]) Mirtazapine 15 MG Oral Tablet [facility] ([facility]) Metronidazole 500 MG Oral Tablet [facility] ([facility]) Loratadine 10 MG Oral Tablet [facility] ([facility]) Levothyroxine Sodium 0.05 MG Oral Tablet [facility] ([facility]) Hydroxyzine Hydrochloride 50 MG Oral Tablet [facility] ([facility]) Hydroxyzine Hydrochloride 25 MG Oral Tablet [facility] ([facility]) Haloperidol 2 MG Oral Tablet [facility] ([facility]) Haloperidol 10 MG Oral Tablet [facility] ([facility]) gabapentin 400 MG Oral Capsule [facility] ([facility]) gabapentin 300 MG Oral Capsule [facility] ([facility]) 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 MG Oral Capsule [facility] ([facility]) Fluoxetine 10 MG Oral Capsule [facility] ([facility]) doxycycline hyclate 100 MG Oral Tablet [facility] ([facility]) Docusate Sodium 100 MG Oral Capsule [facility] ([facility]) Divalproex Sodium 500 MG Delayed Release Oral Tablet [facility] ([facility]) Divalproex Sodium 250 MG Delayed Release Oral Tablet [facility] ([facility]) Cephalexin 500 MG Oral Capsule [facility] ([facility]) buspirone hydrochloride 7.5 MG Oral Tablet [facility] ([facility])
[2021-06-01 18:52] LABS: HEMATOCRIT 39.8 % (36.0-47.0); HEMOGLOBIN 13.4 g/dl (12.0-15.5); MEAN CORPUSCULAR HEMOGLOBIN 30.3 pg (27.0-33.0); MEAN CORPUSCULAR HGB CONC 33.7 g/dl (32.0-36.5); PLATELET COUNT, AUTOMATED 251 10^3/uL (150-450); RED BLOOD COUNT 4.42 10^6/uL (4.00-5.40); WHITE BLOOD COUNT 8.5 10^3/uL (4.0-10.0)
[2021-06-01 19:20] LABS: AMPHETAMINES LEVEL URINE NEGATIVE (NEGATIVE); BARBITURATES URINE NEGATIVE (NEGATIVE); BENZODIAZEPINES URINE NEGATIVE (NEGATIVE); CANNABINOIDS URINE NEGATIVE (NEGATIVE); COCAINE METABOLITE URINE NEGATIVE (NEGATIVE); METHADONE URINE NEGATIVE (NEGATIVE); OPIATES URINE NEGATIVE (NEGATIVE); PHENCYCLIDINE URINE NEGATIVE (NEGATIVE)
[2021-06-01 19:22] LABS: HCG, SERUM QUALITATIVE NEGATIVE (NEGATIVE)
[2021-06-01 19:30] LABS: ACETAMINOPHEN LEVEL < 2.0 UG/ML (10.0-30.0); ALBUMIN 4.1 GM/DL (3.2-5.2); ALT/SGPT 34 U/L (12-78); BILIRUBIN,DIRECT 0.2 MG/DL (0.0-0.2); BILIRUBIN,TOTAL 0.5 MG/DL (0.2-1.0); BLOOD UREA NITROGEN 6 MG/DL (7-18); CALCIUM LEVEL 9.8 MG/DL (8.5-10.1); CARBON DIOXIDE LEVEL 20 MEQ/L (21-32); CHLORIDE LEVEL 108 MEQ/L (98-107); CREATININE FOR GFR 0.77 MG/DL (0.55-1.30); ETHYL ALCOHOL (ETHANOL) < 0.003 % (0.000-0.010); GLOMERULAR FILTRATION RATE > 60.0 (>60); GLUCOSE, FASTING 114 MG/DL (70-100); SALICYLATE LEVEL 2.9 MG/DL (5.0-30.0); SODIUM LEVEL 137 MEQ/L (136-145); THYROID STIMULATING HORMONE 0.826 uIU/ML (0.358-3.740); TOTAL PROTEIN 8.7 GM/DL (6.4-8.2)
[2021-06-02 00:16] LABS: RSV AMPLIFICATION NEGATIVE (NEGATIVE)
[2021-06-02] MEDS ORDERED: MIRT-62 PO (00:44)
[2021-06-02] MEDS ORDERED: ABIL10TA9 PO (00:44)
[2021-06-02] MEDS ORDERED: FLUO20CA22 PO (00:44)
[2021-06-02] MEDS ORDERED: OXYB5TAB10 PO (00:44)
[2021-06-02] MEDS ORDERED: TOPI100T9 PO (00:44)
[2021-06-02] MEDS ORDERED: BUSP15TA47 PO (00:44)
[2021-06-02] MEDS ORDERED: NICO4GUM MT (00:44)
[2021-06-02] MEDS ORDERED: TRAZ1TAB10 PO (00:44)
[2021-06-02] MEDS ORDERED: ABIL1INJ2 IM (00:44)
[2021-06-02] MEDS ORDERED: HOME MED LIST COMPLETE! XX SCH (00:45)
[2021-06-02] MEDS ORDERED: MAALOX 30 ML SUSP *UDC PO PRN (00:50)
[2021-06-02] MEDS ORDERED: ACETAMINOPHEN TAB 650MG DOSE (2X325MG) PO PRN (00:50)
[2021-06-02] MEDS ORDERED: traZODone 50 MG TAB PO PRN ×3 (00:50→12:05)
[2021-06-02] MEDS ORDERED: MOM 30ML SUSPENSION UDC PO PRN (00:50)
--- OUTSIDE RECORDS SUMMARY | 2021-06-02 01:24 | CCD ---
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 PATIENT TO SEE [...] rce(s) Supporting Document(s) ID Date Data Source [id number] 01/16/2021 02:08:00 PM EDT [employer] Counselor Progress NotePatient Dominic DE JESUS [...] A HARD TIMESLEEPING AT NIGHT.Dictated on 01/16/21 140 by Cherrie,TriciaTranscribed on 01/16/21 140 by Cherrie,TriciaSign by Cherrie,Nuzhat on 01/16/21 1413Sign by: Cherrie,Nuzhat Name Value Range Interpretation Code Description Data Kassy rce(s) Supporting Document(s) ID Date Data Source [id number] 01/16/2021 02:04:00 PM EDT [employer] Counselor Progress NotePatient NoteCHUYITA DE JESUS WENT AND CHECKED IN ON PATIENT THIS MORNING, SHE WAS UP BUTLAYING DOWN. COUSNELOR ASKED HOW SHE WAS DOING SHE SAID SHE WAS VERYTIRED. COUNSELOR ASKED HER WHY, WAS SHE NOT SLEEPING WELL? PATIENTREPLIED THAT SHE WASN'T SLEEPING GOOD AT NIGHT. SO COUNSELOR LEFT TO LETHER GET SOME REST.Dictated on 01/16/21 140 by Cherrie,TriciaTranscribed on 01/16/21 140 by Cherrie,TriciaSign by Cherrie,Nuzhat on 01/16/21 1408Sign by: Cherrie,Nuzhat Name Value Range Interpretation Code Description Data Kasys rce(s) Supporting Document(s) ID Date Data Source [id number] 01/15/2021 04:16:00 PM EDT [employer]. Counselor Progress NotePatient NoteCOTASHA DE JESUS IKE BLAS, MS, CASAC-T, ENTERED THE PATIENT'S ROOM. [...] rce(s) Supporting Document(s) ID Date Data Source [id number] 01/15/2021 01:59:00 PM EDT [facility] [facility] [employer] Counselor Progress NotePatient NoteBETHANIE HUGO [facility], CONF[facility]MED A 4 WEEK WAIT LIST FOR THEIRINPATIENT FACILITY FOR WOMEN.Dictated on 01/15/21 1359 by Ike BlasTranscribed on 01/15/21 1359 by Zach Blas by Ike Blas on 01/15/21 1400Sign by: Ike Blas Name Value Range Interpretation Code Description Data Kassy rce(s) Supporting Document(s) ID Date Data Source [id number] 01/15/2021 01:36:00 PM EDT [facility] [employer] Counselor Progress NotePatient NoteCONFI RMED BED AT [facility] 01/22/21 - ADMISSION TIME PENDING.Dictated on 01/15/21 1336 by Ike BlasTranscribed on 01/15/21 1336 by Zach Blas by Ike Blas on 01/15/21 1337Sign by: Ike Blas Name Value Range Interpretation Code Description Data Kassy rce(s) Supporting Document(s) ID Date Data Source [id number] 01/14/2021 03:22:00 PM EDT [facility] [employer] Counselor Progress NotePatient NoteCOUNS ELOR HAD [...] rce(s) Supporting Document(s) ID Date Data Source [id number] 01/14/2021 03:00:00 PM EDT [employer]. Counselor Progress NotePatient NoteCOUNS LIZA WENT TO SEE IF PATIENT WAS UP TO DO EVALUATION AND SHE WASSLEEPING.Dictated on 01/14/21 1500 by Cherrie,TriciaTranscribed on 01/14/21 1500 by Cherrie,TriciaSign by Cherrie,Nuzhat on 01/14/21 1501Sign by: Cherrie,Nuzhat Name Value Range Interpretation Code Description Data Kassy rce(s) Supporting Document(s) ID Date Data Source [id number] 01/14/2021 01:44:00 PM EDT [employer]. Counselor Progress NotePatient NoteCOTASHA DE JESUS WENT INTO PATIENTS ROOM AT 12:30 TO DO THE EVALUATION, THEPATIENT WAS SLEEPING SO COUNSELOR HAD LEFT THE PATIENT TO SLEEP.COUNSELOR CAME BACK TO HER OFFICE AND REPORTED PATIENT STATUS TO ALFREDA.NURSING CLOTH WASHER OPERATOR, SABINE PECK, WOKE THE PATIENT AND REQUESTED [...] rce(s) Supporting Document(s) ID Date Data Source [id number] 01/14/2021 09:26:00 AM EDT [facility]. Counselor Progress NotePatient NoteCOUNS LIZA ALONG WITH REGISTERED PRIVATE DUTY NURSE WENT INTO PATIENTS ROOM AND ASKED HOW SHE WASDOING. PATIENT RESPONDED SHE WAS DOING OK. COUNSELOR INFORMED PATIENTTHAT SHE WAS HERE IF SHE NEEDED HER TO TALK OR ANYTHING.Dictated on 01/14/21925 by Cherrie,TriciaTranscribed on 01/14/21925 by Cherrie,TriciaSign by Cherrie,Nuzhat on 01/14/2133Sign by: Cherrie,Nuzhat Name Value Range Interpretation Code Description Data Kassy rce(s) Supporting Document(s) ID Date Data Source [id number] 01/13/2021 04:10:00 PM EDT [facility] Name Value Range Interpretation Code Description Data Kassy rce(s) Supporting Document(s) SARS-CoV-2 (COVID-19) RNA [Presence] in Respiratory specimen by IRIS with probe detection Negative; No COVID-2 RNA detected by PCR. [facility] This lab was ordered by [facility] and reported by . ID Date Data Source [id number] 12/08/2020 03:19:00 PM EDT [facility]) Name Value Range Interpretation Code Description Data Kassy rce(s) Supporting Document(s) influenza A amplification negative negative Influenza a Amplification [facility]) influenza B amplification negative negative Influenza B Amplification [facility]) RSV amplification negative negative RSV Amplification [facility]) sars covid-19 amplification negative negative Sars Cov id-19 Amplification [facility]) ID Date Data Source [id number] 12/08/2020 03:19:00 PM EDT [facility] Name Value Range Interpretation Code Description Data Kassy rce(s) Supporting Document(s) SARS coronavirus 2 RNA [Presence] in Res piratory specimen by [facility] with probe detection NEGATIVE [facility] This lab was ordered by [facility] a nd reported by [facility]. ID Date Data Source [id number] 12/08/2020 09:19:00 AM EDT [place] ([facility]) Name Value Range Interpretation Code Description Data Kassy rce(s) Supporting Document(s) thyroid stimulating hormone 1.050 uIU/mL 0.358-3.740 Thyroid Stimulating Hormone [facility]) ID Date Data Source [id number] 12/08/2020 09:19:00 AM EDT [facility]) Name Value Range Interpretation Code Description Data Kassy rce(s) Supporting Document(s) acetaminophen level < 2.0 10.0-30.0 Below low normal Acetaminop hen Level [facility]) ID Date Data Source [id number] 12/08/2020 09:19:00 AM EDT [facility]) Name Value Range Interpretation Code Description Data Kassy rce(s) Supporting Document(s) salicylate level 2.7 mg/dL 5.0-30.0 Below low normal Salicylate Le jose [facility]) ID Date Data Source [id number] 12/08/2020 09:19:00 AM EDT [facility]) Name Value Range Interpretation Code Description Data Kassy rce(s) Supporting Document(s) ethyl alcohol (ethanol) < 0.003 0.000-0.010 Ethyl Alcoh ol (Ethanol) [facility]) ID Date Data Source [id number] 12/08/2020 09:19:00 AM EDT [facility]) Name Value Range Interpretation Code Description Data Kassy rce(s) Supporting Document(s) glucose, fasting 93 mg/dL 70-100 Glucose, Fasting AT JIM ([facility]) blood urea nitrogen 10 mg/dL 7-18 Blood Urea Nitro gen SUSI ([facility]) creatinine for GFR 0.61 mg/dL 0.55-1.30 Creatinine for GF R SUSI ([facility]) glomerular filtration rate > 60.0 >60 Glomerula r Filtration Rate SUSI ([facility]) sodium level 140 mEq/L 136-145 Sodium Level SUSI (No Counts include 234 beds at the [facility]) chloride level 111 mEq/L 98-107 Above high normal Chloride Level SUSI ([facility]) potassium serum 4.1 mEq/L 3.5-5.1 Potassium Serum ATHE NA ([facility]) anion gap 7 mEq/L 8-16 Below low normal Anion Gap SUSI ( [facility]) calcium level 9.9 mg/dL 8.5-10.1 Calcium Level SUSI ( [facility]) carbon dioxide level 22 mEq/L 21-32 Carbon Dioxide Level SUSI ([facility]) ID Date Data Source [id number] 12/08/2020 09:19:00 AM EDT [place] ([facility]) Name Value Range Interpretation Code Description Data Kassy rce(s) Supporting Document(s) AST/SGOT 28 U/L 7-37 AST/SGOT SUSI ([facility]) alkaline phosphatase 90 U/L 45-117 Alkaline Phosph atase SUSI ([facility]) ALT/SGPT 26 U/L 12-78 ALT/SGPT SUSI ([facility]) bilirubin,total 0.3 mg/dL 0.2-1.0 Bilirubin,total ATHE NA ([facility]) bilirubin,direct < 0.1 0.0-0.2 [facility] albumin 3.9 gm/dL 3.2-5.2 Albumin SUSI ([facility]) total protein 8.4 gm/dL 6.4-8.2 Above high normal Total Protein A THENA ([facility]) albumin/globulin ratio 1.2-2.2 Below low normal Albumin /globulin Ratio SUSI ([facility]) ID Date Data Source [id number] 12/08/2020 09:19:00 AM EDT [place] ([facility]) Name Value Range Interpretation Code Description Data Kassy rce(s) Supporting Document(s) white blood count 9.1 10 4.0-10.0 White Blood Count SUSI ([facility]) red blood count 4.31 10 4.00-5.40 Red Blood Count ATHE ([facility]) hemoglobin 12.8 g/dL 12.0-15.5 Hemoglobin SUSI ([facility]) hematocrit 39.2 % 36.0-47.0 Hematocrit SSUI ([facility]) mean corpuscular volume 91.0 fL 80.0-96.0 Mean Corpusc ular Volume SUSI ([facility]) mean corpuscular hemoglobin 29.7 pg 27.0-33.0 Mean Cor puscular Hemoglobin SUSI ([facility]) mean corpuscular HGB conc 32.7 g/dL 32.0-36.5 Mean Corpu scular HGB Conc SUSI ([facility]) platelet count, automated 276 10 150-450 Platelet C ount, Automated SUSI ([facility]) red cell distribution width 13.7 % 11.5-14.5 Red Cell Distribution Width SUSI ([facility]) nucleated red blood cell % 0.0 % 0-0 Nucleated Red Blood Cell % SUSI ([facility]) ID Date Data Source [id number] 12/08/2020 08:11:00 AM EDT SUSI ([facility]) Name Value Range Interpretation Code Description Data Kassy rce(s) Supporting Document(s) amphetamines level urine positive negative Above high andrea l Amphetamines Level Urine SUSI ([facility]) barbiturates urine negative negative Barbiturates Urin e SUSI ([facility]) benzodiazepines urine negative negative Benzodiazepine s Urine SUSI ([facility]) cannabinoids urine positive negative Above high normal Cannabinoi ds Urine SUSI ([facility]) cocaine metabolite urine negative negative Cocaine Met abolite Urine SUSI ([facility]) opiates urine negative negative Opiates Urine SUSI ( [facility]) methadone urine negative negative Methadone Urine ATHE NA ([facility]) phencyclidine urine negative negative Phencyclidine Ur ine SUSI ([facility]) ID Date Data Source [id number] 12/07/2020 09:14:00 AM EDT SUIS ([facility]) Name Value Range Interpretation Code Description Data Kassy rce(s) Supporting Document(s) istat troponin 0.01 NG/mL 0.00-0.08 Istat Troponin SUSI ([facility]) ID Date Data Source [id number] 12/07/2020 09:12:00 AM EDT SUSI ([facility]) Name Value Range Interpretation Code Description Data Kassy rce(s) Supporting Document(s) istat HCT 38.0 % 38.0-51.0 Istat HCT SUSI ([facility]) istat sodium 138 mEq/L 136-145 Istat Sodium SUSI ([facility]) istat glucose 111 mg/dL 70-105 Above high normal Istat Glucose A [facility]) istat Ca++ 4.7 mg/dL 4.5-5.3 Istat Ca++ SUSI ([facility]) istat potassium 3.9 mEq/L 3.5-5.1 Istat Potassium ATHE NA ([facility]) istat CO2 23.0 mm/L 23.0-27.0 Istat CO2 SUSI ([facility]) istat chloride 105 mEq/L 98-109 Istat Chloride SUSI ([facility]) istat BUN 9 mg/dL 8-26 Istat BUN SUSI ([facility]) istat creatinine 0.6 mg/dL 0.6-1.3 Istat Creatinine AT [facility]) ID Date Data Source [id number] 12/01/2020 03:02:00 AM EDT [facility] Name Value Range Interpretation Code Description Data Kassy rce(s) Supporting Document(s) SARS coronavirus 2 RNA [Presence] in Res piratory specimen by IRIS with probe detection NEGATIVE [facility] This lab was ordered by [facility] a nd reported by [facility]. ID Date Data Source [id number] 09/15/2020 03:35:50 PM EST [employer] ([facility]) Name Value Range Interpretation Code Description Data Kassy rce(s) Supporting Document(s) Color: yellow; Glucose: nega tive; Blood: small; pH: 6.0; Protein: small; Nitrite: positive; Leukocytes: moderate Abnormal (appl ies to non-numeric results) Urine Dipstick [facility] ID Date Data Source [id number] 09/15/2020 03:35:12 PM EST [employer] ([facility]) Name Value Range Interpretation Code Description Data Kassy rce(s) Supporting Document(s) NegativeLot: [id number]: 03/31/2022 High Sensitivity Urine Test [facility] ([facility]) ID Date Data Source [id number] 06/02/2020 02:08:00 PM EST [place] ([facility]) Name Value Range Interpretation Code Description Data [facility] rce(s) Supporting Document(s) alkaline phosphatase 75 U/L 45-117 Alkaline Phosph atase SUSI ([facility]) ALT/SGPT 74 U/L 12-78 ALT/SGPT [facility] ([facility]) AST/SGOT 58 U/L 7-37 Above high normal AST/SGOT [facility] ([facility]) total protein 7.7 gm/dL 6.4-8.2 Total Protein SUSI ( [facility]) bilirubin,total 0.4 mg/dL 0.2-1.0 Bilirubin,total ATHE ([facility]) bilirubin,direct 0.1 mg/dL 0.0-0.2 Bilirubin,direct AT JIM ([facility]) albumin/globulin ratio 1.2-2.2 Below low normal Albumin /globulin Ratio SUSI ([facility]) albumin 3.7 gm/dL 3.2-5.2 Albumin S[facility]I ([facility]) ID Date Data Source [id number] 06/02/2020 02:08:00 PM EST [facility] ([facility]) Name Value Range Interpretation Code Description Data Kassy rce(s) Supporting Document(s) amphetamines level urine positive negative Above high andrea l Amphetamines Level Urine SUSI ([facility]) benzodiazepines urine negative negative Benzodiazepine s Urine SUSI ([facility]) barbiturates urine negative negative Barbiturates Urin e SUSI ([facility]) cannabinoids urine positive negative Above high normal Cannabinoi ds Urine SUSI ([facility]) cocaine metabolite urine negative negative Cocaine Met abolite Urine SUSI ([facility]) methadone urine positive negative Above high normal Methadone Uri ne SUSI ([facility]) phencyclidine urine negative negative Phencyclidine Ur ine SUSI ([facility]) opiates urine positive negative Above high normal Opiates Urine A THENA ([facility]) ID Date Data Source [id number] 06/02/2020 02:08:00 PM EST [facility] ([facility]) Name Value Range Interpretation Code Description Data Kassy rce(s) Supporting Document(s) white blood count 5.8 10 4.0-10.0 White Blood Count SUSI ([facility]) red blood count 3.95 10 4.00-5.40 Below low normal Red Blood Coun t SUSI ([facility]) hemoglobin 12.2 g/dL 12.0-15.5 Hemoglobin SUSI ([facility]) mean corpuscular volume 94.2 fL 80.0-96.0 Mean Corpusc ular Volume SUSI ([facility]) hematocrit 37.2 % 36.0-47.0 Hematocrit SUSI ([facility]) mean corpuscular hemoglobin 30.9 pg 27.0-33.0 Mean Cor puscular Hemoglobin SUSI ([facility]) mean corpuscular HGB conc 32.8 g/dL 32.0-36.5 Mean Corpu scular HGB Conc SUSI ([facility]) red cell distribution width 12.8 % 11.5-14.5 Red Cell Distribution Width S[facility]I ([facility]) nucleated red blood cell % 0.0 % 0-0 Nucleated Red Blood Cell % SUSI ([facility]) platelet count, automated 195 10 150-450 Platelet C ount, Automated SUSI ([facility]) ID Date Data Source [id number] 06/02/2020 02:08:00 PM EST [place] ([facility]) Name Value Range Interpretation Code Description Data [facility] rce(s) Supporting Document(s) HCG, serum qualitative negative negative [facility]CG, [facility] Qu [facility] ID Date Data Source [id number] 06/02/2020 02:08:00 PM EST [facility]) Name Value Range Interpretation Code Description Data Kassy rce(s) Supporting Document(s) thyroid stimulating hormone 1.690 uIU/mL 0.358-3.740 Thyroid Stimulating Hormone [facility]) ID Date Data Source [id number] 06/02/2020 02:08:00 PM EST [place] ([facility]) Name Value Range Interpretation Code Description Data [facility] rce(s) Supporting Document(s) acetaminophen level < 2.0 10.0-30.0 Below low normal Acetaminop hen Level [facility]) ID Date Data Source [id number] 06/02/2020 02:08:00 PM EST [facility]) Name Value Range Interpretation Code Description Data Kassy rce(s) Supporting Document(s) salicylate level < 1.7 5.0-30.0 Below low normal Salicylate Le jose SUSI ([facility]) ID Date Data Source [id number] 06/02/2020 02:08:00 PM EST SUSI ([facility]) Name Value Range Interpretation Code Description Data Kassy rce(s) Supporting Document(s) ethyl alcohol (ethanol) < 0.003 0.000-0.010 Ethyl Alcoh ol (Ethanol) [place] ([facility]) ID Date Data Source [id number] 06/02/2020 02:08:00 PM EST SUSI ([facility]) Name Value Range Interpretation Code Description Data Kassy rce(s) Supporting Document(s) creatinine for GFR 0.71 mg/dL 0.55-1.30 Creatinine for GF R [place] ([facility]) blood urea nitrogen 7 mg/dL 7-18 Blood Urea Nitro gen [place] ([facility]) glucose, fasting 82 mg/dL 70-100 Glucose, Fasting AT [facility]) glomerular filtration rate > 60.0 >60 Glomerula r Filtration Rate [place] ([facility]) sodium level 139 mEq/L 136-145 Sodium Level [place] (No Counts include 234 beds at the [facility]) potassium serum 3.6 mEq/L 3.5-5.1 Potassium Serum ATH NA ([facility]) anion gap 6 mEq/L 8-16 Below low normal Anion Gap [place] ( [facility]) carbon dioxide level 24 mEq/L 21-32 Carbon Dioxide Level SUSI ([facility]) chloride level 109 mEq/L 98-107 Above high normal Chloride Level [place] ([facility]) calcium level 8.8 mg/dL 8.5-10.1 Calcium Level [facility]) ID Date Data Source [id number] 06/01/2020 01:01:00 PM EST [facility]) Name Value Range Interpretation Code Description Data Kassy rce(s) Supporting Document(s) amphetamines level urine positive negative Above high andrea l Amphetamines Level Urine SUSI ([facility]) cocaine metabolite urine positive negative Above high andrea l Cocaine Metabolite Urine SUSI ([facility]) cannabinoids urine positive negative Above high normal Cannabinoi ds Urine SUSI ([facility]) benzodiazepines urine negative negative Benzodiazepine s Urine [facility]USI ([facility]) barbiturates urine negative negative Barbiturates Urin e [facility]I ([facility]) phencyclidine urine negative negative Phencyclidine Ur ine SUSI ([facility]) methadone urine positive negative Above high normal Methadone Uri ne SUSI ([facility]) opiates urine positive negative Above high normal Opiates Urine A [place]NA ([facility]) ID Date Data Source [id number] 06/01/2020 01:01:00 PM EST SUSI ([facility]) Name Value Range Interpretation Code Description Data Kassy rce(s) Supporting Document(s) HCG, serum qualitative negative negative HCG, Serum Qu alitative [facility]USI ([facility]) ID Date Data Source [id number] 06/01/2020 01:01:00 PM EST SUSI ([facility]) Name Value Range Interpretation Code Description Data Kassy rce(s) Supporting Document(s) thyroid stimulating hormone 4.060 uIU/mL 0.358-3.740 Above high no rmal Thyroid Stimulating Hormone [facility]USI ([facility]) ID Date Data Source [id number] 06/01/2020 01:01:00 PM EST SUSI ([facility]) Name Value Range Interpretation Code Description Data Kassy rce(s) Supporting Document(s) acetaminophen level < 2.0 10.0-30.0 Below low normal Acetaminop hen Level SUSI ([facility]) ID Date Data Source [id number] 06/01/2020 01:01:00 PM EST SUSI ([facility]) Name Value Range Interpretation Code Description Data Kassy rce(s) Supporting Document(s) salicylate level < 1.7 5.0-30.0 Below low normal Salicylate Le jose SUSI ([facility]) ID Date Data Source [id number] 06/01/2020 01:01:00 PM EST SUSI ([facility]) Name Value Range Interpretation Code Description Data Kassy rce(s) Supporting Document(s) ethyl alcohol (ethanol) < 0.003 0.000-0.010 Ethyl Alcoh ol (Ethanol) [facility]USI ([facility]) ID Date Data Source [id number] 06/01/2020 01:01:00 PM EST SUSI ([facility]) Name Value Range Interpretation Code Description Data Kassy rce(s) Supporting Document(s) glucose, fasting 129 mg/dL 70-100 Above high normal Glucose, Fas ting [place] ([facility]) blood urea nitrogen 12 mg/dL 7-18 Blood Urea Nitro gen SUSI ([facility]) creatinine for GFR 0.83 mg/dL 0.55-1.30 Creatinine for GF R [place] ([facility]) sodium level 136 mEq/L 136-145 Sodium Level [facility]USI ([facility]) glomerular filtration rate > 60.0 >60 Glomerula r Filtration Rate [place] ([facility]) potassium serum 3.6 mEq/L 3.5-5.1 Potassium Serum ATH NA ([facility]) chloride level 103 mEq/L 98-107 Chloride Level [place] ([facility]) carbon dioxide level 23 mEq/L 21-32 Carbon Dioxide Level [place] ([facility]) anion gap 10 mEq/L 8-16 Anion Gap SUSI ([facility]) calcium level 8.8 mg/dL 8.5-10.1 Calcium Level [place] ( [facility]) ID Date Data Source [id number] 06/01/2020 01:01:00 PM [facility] Name Value Range Interpretation Code Description Data Kassy rce(s) Supporting Document(s) AST/SGOT 61 U/L 7-37 Above high normal AST/SGOT [facility]I ([facility]) ALT/SGPT 89 U/L 12-78 Above high normal ALT/SGPT [facility]USI ([facility]) alkaline phosphatase 80 U/L 45-117 Alkaline Phosph atase [place] ([facility]) bilirubin,total 0.3 mg/dL 0.2-1.0 Bilirubin,total ATHE ([facility]) total protein 8.4 gm/dL 6.4-8.2 Above high normal Total Protein A THENA ([facility]) bilirubin,direct 0.1 mg/dL 0.0-0.2 Bilirubin,direct AT [facility] ([facility]) albumin/globulin ratio 1.2-2.2 Below low normal Albumin /globulin Ratio SUSI ([facility]) albumin 4.2 gm/dL 3.2-5.2 Albumin [facility] ([facility]) ID Date Data Source [id number] 06/01/2020 01:01:00 PM EST SUSI ([facility]) Name Value Range Interpretation Code Description Data Kassy rce(s) Supporting Document(s) white blood count 5.6 10 4.0-10.0 White Blood Count SUSI ([facility]) red blood count 4.07 10 4.00-5.40 Red Blood Count ATHE ([facility]) hemoglobin 12.4 g/dL 12.0-15.5 Hemoglobin SUSI ([facility]) hematocrit 37.8 % 36.0-47.0 Hematocrit SUSI ([facility]) mean corpuscular hemoglobin 30.5 pg 27.0-33.0 Mean Cor puscular Hemoglobin SUSI ([facility]) mean corpuscular HGB conc 32.8 g/dL 32.0-36.5 Mean Corpu scular HGB Conc SUSI ([facility]) mean corpuscular volume 92.9 fL 80.0-96.0 Mean Corpusc ular Volume SUSI ([facility]) neutrophils % 39.6 % 36.0-66.0 Neutrophils % SUSI ( [facility]) red cell distribution width 12.8 % 11.5-14.5 Red Cell Distribution Width SUSI ([facility]) platelet count, automated 205 10 150-450 Platelet C ount, Automated SUSI ([facility]) mono % 8.0 % 0.0-5.0 Above high normal Graves % SUSI ([facility]) lymph % 48.6 % 24.0-44.0 Above high normal Lymph % SUSI ([facility]) baso % 0.9 % 0.0-1.0 Baso % SUSI ([facility]) eos % 2.7 % 0.0-3.0 Eos % [place] ([facility]) immature granulocyte % 0.2 % 0-3.0 Immature Gran ulocyte % [place] ([facility]) nucleated red blood cell % 0.0 % 0-0 Nucleated Red Blood Cell % [place] ([facility]) neutrophils # 2.2 10 1.5-8.5 Neutrophils # SUSI ( [facility]) lymph # 2.7 10 1.5-5.0 Lymph # SUSI ([facility]) mono # 0.5 10 0.0-0.8 Graves # SUSI ([facility]) eos # 0.2 10 0.0-0.5 Eos # [place] ([facility]) baso # 0.1 10 0.0-0.2 Baso # SUSI ([facility]) ID Date Data Source [id number] 05/07/2020 09:44:00 AM EDT [facility] Name Value Range Interpretation Code Description Data Kassy rce(s) Supporting Document(s) Free T4 (Free Thyroxine) 0.76-1.46 Normal (applies to non -numeric results) [facility] ID Date Data Source [id number] 05/07/2020 09:44:00 AM EDT [facility] Name Value Range Interpretation Code Description Data Kassy rce(s) Supporting Document(s) Thyroid Stimulate Hormone TSH 0.358-3.740 Above high andrea l [facility] ID Date Data Source [id number] 04/30/2020 01:37:00 PM EDT [facility] Name: CELY SIMS [facility] Rec #: [id number] 14 : 1985 Age/Sex: 34F Date of Service: 04/30/20 DISPOSITION SUMMARY Discharge Summary [facility] Name:Cely Sims Emergency Department Age:34 yrs Sex:Female [...] Discharge Instruction: Discharge Summary Sheet, Constipation, Adult, Xsac-gc-Blec, Medication Reconciliation Name Value Range Interpretation Code Description Data Kassy rce(s) Supporting Document(s) ID Date Data Source [id number] 04/30/2020 01:37:00 PM EDT [facility] Name: CELY SIMS [facility] Rec #: [id number] 14 : 1985 Age/Sex: 34F Date of Service: 04/30/20 PHYSICIAN CHART Physician Documentation [facility] Name: Cely Sims Age: 34 yrs Sex: [...] a 34-year-old female with history of mental [facility] disorders including schizophrenia, depression, anxiety, [...] fevers, headaches, chest pain, shortness of breath.. 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 ROS: 14:40 Constitutional: Negative for fever, chills, [...] rate of 83 zrw1 beats per minute. TN 168ms. QRS 94ms. QT 426. Normal axis. [...] Order name: Comprehensive Metabolic Prof.; Complete Time: zrw1 15:22 09/30 15:53 Interpretation: NA 142; K 4.3; CL 113; CO2 25.0; GAP 4.0; zrw1 BUN 17; CREAT 0.78; Glom Filtration 85; GLU 85; CA 8.5; Corrected CA 8.9; T Bili 0.1; SGOT(AST) 37; SGPT(ALT) 37; ALK PHOS 81; TP 7.4; ALB 3.5. 04/30 14:27 Order name: Lipase; Complete Time: 15:22 w1 04/30 15:54 Interpretation: LIP 85. w1 04/30 14:27 Order name: UA.; Complete Time: 15:19 [facility] 04/30 15:02 Interpretation: Ur Color Yellow; Ur Clarity Clear; Ur Leuk zrw1 Est 2+ Mod; Ur Nitrite Negative. 04/30 14:39 Order name: POC Urine HCG for ED; Complete Time: 15:19 dk2 04/30 15:54 Interpretation: POC ED Ur HCG NEGATIVE. [facility] 04/30 14:27 Order name: Ct Abdomen & Pelvis with Con [facility] 04/30 14:27 Order name: Collect Urine - Clean Catch; Complete Time: zrw 14:33 04/30 14:58 Order name: Urinalysis Auto w/Microscopy [facility] 04/30 14:58 Order name: Urine Culture [facility] 04/30 15:02 Order name: Emergency Room EKG Order - Use EKG Work-Up w1 /Quick Select; Complete Time: 15:28 04/30 15:02 Order name: Cardiology EKG Interpretation - Choose Reason [facility] for Test 04/30 14:27 Order name: Iv Saline Lock; Complete Time: 14:44 zrw1 04/30 14:27 Order name: NPO; Complete Time: 14:34 zrw04/30 14:27 Order name: POC - Collect UHCG; Complete Time: 14:39 [facility] 04/30 16:17 Order name: Wilfridoets Enema: To Go; Complete Time: 16:18 zrw [...] Discharge Summary Sheet zrw1 - Constipation, Adult, Jzxw-ts-Tjbj zrw1 Forms: - Medication Reconciliation zrw1 Prescriptions: [...] rce(s) Supporting Document(s) ID Date Data Source [id number] 04/30/2020 01:37:00 PM EDT [facility] Name: CELY SIMS [facility] Rec #: [id number] 14 : 1985 Age/Sex: 34F Date of Service: 04/30/20 NURSE CHART Nurse's Notes [facility] Name: Cely Sims Age: 34 yrs Sex: Female : 1985 Arrival Date: 04/30/2020 Time: 13:37 Bed 8 Private MD: Rehab, Provider Diagnosis: Abdominal Pain, Unspecified;Constipation, unspecified Presentation: 04/30 13:38 Acuity: Urgent - 3 awr 13:56 Transition of care: patient was not received from another [facility] setting of care. Presenting complaint: Patient states - She has not had a BM in the last two days despite using suppositories.. Pt is currently at our rehab facility. Have you travelled in the last 30 days? Yes, Where have you travelled? From [place]. . Have you had contact with an [...] Abdomen is distended, The patient reports constipation. 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 Screenin:06 AUDIT 1. How often do you [...] obtained and reviewed by Stephen Woods MD. [facility] 15:28 Cardiology EKG Interpretation - Choose Reason [...] Department Policy. 16:35 Patient left the ED. sj 05/01 08:54 24 hour call back attempted, invalid phone number sj Signatures: Surekha Carvajal, RN RN sj Ori Carlson, RN RN tp1 Maira Nunez, RN RN dk2 Jesse Hernandez, RN RN Yoli Rosado NA NA jmg Willis, Zachary, PA PA zrw1 Antonina Ivey Name Value Range Interpretation Code Description Data Kassy rce(s) Supporting Document(s) ID Date Data Source [id number] 05/01/2020 09:27:00 AM EDT [facility] Name: CELY SIMS : 1985 A ge/Sex: 34F Ordering Provider: LEA White Med Rec #: [id number] Reg Status:[facility] ER Room #: Date of Service: 04/30/20 Report Number: [id number] cc: PCP None; LEA White Send Report To: Reason for exam: ABDOMINAL PAIN SINUS RHYTHM POSSIBLE RIGHT VENTRICULAR CONDUCTION DELAY BORDERLINE ECG Compared to 04/18/2020 there is no significant change Physician Highway Engineering Technician: Serafin Daugherty M.D. ECG HEART RATE: 83 /min ECG RR INTERVAL: 716 ms ECG P DURATION: 119 ms ECG QRS DURATION: 94 ms ECG TN INTERVAL: 168 ms ECG QT INTERVAL: 426 ms ECG QTC INTERVAL: 466 ms Q-T dispersion: ms ECG P AXIS: 42 deg ECG QRS AXIS: 21 deg ECG T AXIS: 33 deg REPORT SIGNATURE ON FILE 05/01/20927 Reported By: Serafin Daugherty MD, [facility] <<Signature on File>> Exam Date/Time: 04/30/20 1523 Order #: [id number] Dictation Date/Time: 05/01/20926 Transcribed Date/Time: 05/01/20926 Print Developer Automatic: LETICIA Name Value Range Interpretation Code Description Data Kassy rce(s) Supporting Document(s) ID Date Data Source [id number] 05/02/2020 10:45:00 AM EDT [facility] Name Value Range Interpretation Code Description Data Kassy rce(s) Supporting Document(s) Urine Culture Normal (applies to non-numeric re sults) [facility] ID Date Data Source [id number] 04/30/2020 03:21:00 PM EDT [facility] Name Value Range Interpretation Code Description Data Kassy rce(s) Supporting Document(s) Sodium 142 mmol/L 137-145 Normal (applies to non-numeric resul ts) [facility] Potassium 3.5-5.1 Normal (applies to non-numeric resul ts) [facility] Chloride 113 mmol/L 98-112 Above high normal [facility] Carbon Dioxide CO2 22.0-33.0 Normal (applies to non-numer ic results) [facility] Anion Gap 4.0-11.0 Normal (applies to non-numeric resul ts) [facility] BUN 17 mg/dL 7-17 Normal (applies to non-numeric resul ts) [facility] Creatinine 0.70-1.20 Normal (applies to non-numeric resul ts) [facility] GFR 85 mL/min >60 Normal (applies to non-numeric resul ts) [facility] Result based on MDRD formula. Glucose Level 85 mg/dL 74-99 Normal (applies to non-numeric re sults) [facility] The reference range is only applicable w hen fasting. Calcium-Uncorrected 8.4-10.2 Normal (applies to non-nume claudia results) [facility] Corrected Calcium 8.4-10.2 Normal (applies to non-numeri c results) [facility] Bilirubin,Total 0.2-1.3 Below low normal [facility] SGOT(AST) 37 U/L 14-36 Above high normal [facility] SGPT(ALT) 37 U/L 9-52 Normal (applies to non-numeric resul ts) [facility] Alkaline Phosphatase 81 U/L 38-126 Normal (applies to non-num clementine results) [facility] can increase Alkaline Phosp le vels up to 2 times the normal adult value. Normal values for children and adolescents are 2 to 3 times the normal adult value. Total Protein 6.3-8.2 Normal (applies to non-numeric re sults) [facility] Albumin 3.5-5.0 Normal (applies to non-numeric resul ts) [facility] ID Date Data Source [id number] 04/30/2020 03:21:00 PM EDT [facility] Name Value Range Interpretation Code Description Data Kassy rce(s) Supporting Document(s) C-Reactive Protein,Wide Range <3.00 Normal (applies t o non-numeric results) [facility] ID Date Data Source [id number] 04/30/2020 03:21:00 PM EDT [facility] Name Value Range Interpretation Code Description Data Kassy rce(s) Supporting Document(s) Lipase 85 U/L 73-393 Normal (applies to non-numeric resul ts) [facility] ID Date Data Source [id number] 04/30/2020 03:07:00 PM EDT [facility] Name Value Range Interpretation Code Description Data Kassy rce(s) Supporting Document(s) White Blood Count 4.8-10.8 Normal (applies to non-numeri c results) [facility] Red Blood Count 3.68-5.22 Normal (applies to non-numeric results) [facility] Hemoglobin 11.2-15.7 Normal (applies to non-numeric resul ts) [facility] Hematocrit 34.1-44.9 Normal (applies to non-numeric resul ts) [facility] Mean Corpuscular Volume 81-99 Normal (applies to non- numeric results) [facility] Mean Corpuscular Hemoglobin 27.0-33.0 Normal (appli es to non-numeric results) [facility] Mean Corpuscular HGB Conc 32.0-36.0 Normal (applies to no n-numeric results) [facility] Red Cell Distribution Width 11.5-14.5 Normal (appli es to non-numeric results) [facility] Platelet Count 240 X10 3/uL 130-450 Normal (applies to non-numeric results) [facility] Mean Platelet Volume 9.5-12.7 Normal (applies to non-num clementine results) [facility] Imm Grans% (AUTO) 0 % 0-2 Normal (applies to non-numeri c results) [facility] Neutrophils % (AUTO) 42 % 40-75 Normal (applies to non-num clementine results) [facility] Lymphocytes % (AUTO) 46 % 21-46 Normal (applies to non-num clementine results) [facility] Monocytes % (AUTO) 7 % 5-12 Normal (applies to non-numer ic results) [facility] Eosinophils % (AUTO) 3 % 1-5 Normal (applies to non-num clementine results) [facility] Basophils % (AUTO) 1 % 0-1 Normal (applies to non-numer ic results) [facility] Imm Grans# (AUTO) 0.0-0.5 Normal (applies to non-numeri c results) [facility] Neutrophils # (AUTO) 1.5-8.1 Normal (applies to non-num clementine results) [facility] Lymphocytes # (AUTO) 1.0-3.1 Above high normal [facility] Monocytes # (AUTO) 0.2-1.3 Normal (applies to non-numer ic results) [facility] Eosinophils# (AUTO) 0.0-0.5 Normal (applies to non-nume claudia results) [facility] Basophils # (AUTO) 0.0-0.1 Normal (applies to non-numer ic results) [facility] ID Date Data Source [id number] 04/30/2020 03:15:00 PM EDT [facility] Control Line Present? YPerformed by: Jewels Valles HCG Screen Result: NEGATIVE Name Value Range Interpretation Code Description Data Kassy rce(s) Supporting Document(s) POC ED Urine HCG NEGATIVE Normal (applies to non-numeric results) [facility] ID Date Data Source [id number] 04/30/2020 03:10:00 PM EDT [facility] Name Value Range Interpretation Code Description Data Kassy rce(s) Supporting Document(s) Color,Urine Yellow Normal (applies to non-numeric resu lts) [facility] Clarity,Urine Clear Normal (applies to non-numeric re sults) [facility] Specific [place],Urine 1.001-1.030 Normal (applies to non- numeric results) [facility] PH,Urine 4.6-8.0 Normal (applies to non-numeric resul ts) [facility] Protein,Urine Negative Normal (applies to non-numeric re sults) [facility] Glucose,Urine (UA) Negative Normal (applies to non-numer ic results) [facility] Ketones,Urine Negative Normal (applies to non-numeric re sults) [facility] Blood,Urine Negative Normal (applies to non-numeric resu lts) [facility] Bilirubin,Urine Negative Normal (applies to non-numeric results) [facility] Urobilinogen,Urine Norm 0.2-1 Normal (applies to non-numer ic results) [facility] Leukocyte Esterase,Urine Negative [facility] Nitrite,Urine Negative Normal (applies to non-numeric re sults) [facility] ID Date Data Source [id number] 04/30/2020 03:10:00 PM EDT [facility] Name Value Range Interpretation Code Description Data Kassy rce(s) Supporting Document(s) WBC,URINE 0-10 [facility] RBC,Urine 0-2 Normal (applies to non-numeric resul ts) [facility] Hyaline Casts,Ur None Seen Normal (applies to non-numeric results) [facility] Bacteria,Urine None Seen [facility] Epithelial Cell,Ur None-Few [facility]ag[facility] ID Date Data Source [id number] 05/01/2020 06:14:00 AM EDT [facility] Name: CELY SIMS : 1985 A ge/Sex: 34F Ordering Provider: LEA White Med Rec #: [id number] Reg Status: DEP ER Room #: Date of Service: 04/30/20 Report Number: [id number] cc:PCP None Send Report To: [id number] CT/CT Abdomen & Pelvis w Con Reason [...] Date/Time: 04/30/20 1541 Transcribed Date/Time: 05/01/20 0614 Print Developer Automatic: CHEL Name Value Range Interpretation Code Description Data Kassy rce(s) Supporting Document(s) ID Date Data Source [id number] 04/23/2020 09:55:00 AM EDT [facility] Name Value Range Interpretation Code Description Data Kassy rce(s) Supporting Document(s) Free T4 (Free Thyroxine) 0.76-1.46 Normal (applies to non -numeric results) [facility] ID Date Data Source [id number] 04/23/2020 09:55:00 AM EDT [facility] Name Value Range Interpretation Code Description Data Kassy rce(s) Supporting Document(s) Thyroid Stimulate Hormone TSH 0.358-3.740 Above high andrea l [facility] ID Date Data Source [id number] 04/18/2020 03:52:00 PM EDT [facility] Name: CELY SIMS : 1985 A ge/Sex: 34F Ordering Provider: Stepahnie TATE Med Rec #: [id number] Reg Status:ADM IN Room #: 156-2 Date of Service: 04/18/20 Report Number: [id number] cc: Stephanie TATE; Annelise Gray MD Send Report To: Reason for exam: chest pain with cocaine SINUS RHYTHM POSSIBLE LEFT ATRIAL ENLARGEMENT POSSIBLE RIGHT VENTRICULAR CONDUCTION DELAY NONSPECIFIC T-WAVE ABNORMALITY Physician Highway Engineering Technician: Dr. Ben Tillman M.D. ECG HEART RATE: 78 /min ECG RR INTERVAL: 765 ms ECG P DURATION: 115 ms ECG QRS DURATION: 90 ms ECG TN INTERVAL: 143 ms ECG QT INTERVAL: 426 ms ECG QTC INTERVAL: 457 ms Q-T dispersion: ms ECG P AXIS: 71 deg ECG QRS AXIS: 72 deg ECG T AXIS: 32 deg REPORT SIGNATURE ON FILE 04/18/201551 Reported By: Ben Tillman MD <<Signature on File>> Exam Date/Time: 04/18/20 0759 Order #: [id number] Dictation Date/Time: 04/18/201551 Transcribed Date/Time: 04/18/201551 Print Developer Automatic: LETICIA Name Value Range Interpretation Code Description Data Kassy rce(s) Supporting Document(s) ID Date Data Source [id number] 04/17/2020 11:39:00 AM EDT [facility] Name Value Range Interpretation Code Description Data Kassy rce(s) Supporting Document(s) Hep Bs Ag Result T-Test Nonreactive Normal (applies to non -numeric results) [facility] ID Date Data Source [id number] 04/17/2020 11:39:[address] [facility] Value Range Interpretation Code Description Data Kassy rce(s) Supporting Document(s) Syphilis Serology Nonreactive Normal (applies to non-numer ic results) [facility] ID Date Data Source [id number] 04/17/2020 11:39:[address] [facility] Value Range Interpretation Code Description Data Kassy rce(s) Supporting Document(s) HAVM Nonreactive Normal (applies to non-numeric resu lts) [facility] ID Date Data Source [id number] 04/17/2020 11:39:[address] [facility] Value Range Interpretation Code Description Data Kassy rce(s) Supporting Document(s) Vitamin D,Total (25OH) 30.0-100.0 Below low normal [facility] Reference Range: <10 ng/mL: Deficien t 10-30 ng/mL: Insufficient 30-100 ng/mL: Sufficient >100 ng/mL: Toxicity possible ID Date Data Source [id number] 04/17/2020 10:44:[address] [facility] Value Range Interpretation Code Description Data Kassy rce(s) Supporting Document(s) C-Reactive Protein,Wide Range <3.00 Normal (applies t o non-numeric results) [facility] ID Date Data Source [id number] 04/17/2020 10:44:[address] [facility] Value Range Interpretation Code Description Data Kassy rce(s) Supporting Document(s) Magnesium 1.80-2.40 Normal (applies to non-numeric resul ts) [facility] ID Date Data Source [id number] 04/17/2020 10:44:[address] [facility] Value Range Interpretation Code Description Data Kassy rce(s) Supporting Document(s) Sodium 137 mmol/L 137-145 Normal (applies to non-numeric resul ts) [facility] Potassium 3.5-5.1 Normal (applies to non-numeric resul ts) [facility] Chloride 110 mmol/L 98-112 Normal (applies to non-numeric resul ts) [facility] Carbon Dioxide CO2 22.0-33.0 Below low normal [facility] Anion Gap 4.0-11.0 Normal (applies to non-numeric resul ts) [facility] BUN 16 mg/dL 7-17 Normal (applies to non-numeric resul ts) [facility] Creatinine 0.70-1.20 Normal (applies to non-numeric resul ts) [facility] GFR 88 mL/min >60 Normal (applies to non-numeric resul ts) [facility] Result based on MDRD formula. Glucose Level 94 mg/dL 74-99 Normal (applies to non-numeric re sults) [facility] The reference range is only applicable w hen fasting. Calcium-Uncorrected 8.4-10.2 Normal (applies to non-nume claudia results) [facility] Corrected Calcium 8.4-10.2 Normal (applies to non-numeri c results) [facility] Bilirubin,Total 0.2-1.3 Normal (applies to non-numeric results) [facility] Bilirubin,Direct 0.0-0.3 Normal (applies to non-numeric results) [facility] SGOT(AST) 32 U/L 14-36 Normal (applies to non-numeric resul ts) [facility] SGPT(ALT) 35 U/L 9-52 Normal (applies to non-numeric resul ts) [facility] Alkaline Phosphatase 70 U/L 38-126 Normal (applies to non-num clementine results) [facility] can increase Alkaline Phosp le vels up to 2 times the normal adult value. Normal values for children and adolescents are 2 to 3 times the normal adult value. CPK 172 U/L 26-192 Normal (applies to non-numeric resul ts) [facility] Total Protein 6.3-8.2 Normal (applies to non-numeric re sults) [facility] Albumin 3.5-5.0 Normal (applies to non-numeric resul ts) [facility] Thyroid Stimulate Hormone TSH 0.358-3.740 Above high andrea l [facility] ID Date Data Source [id number] 04/17/2020 10:07:00 AM EDT [facility] Name Value Range Interpretation Code Description Data Kassy rce(s) Supporting Document(s) White Blood Count 4.8-10.8 Normal (applies to non-numeri c results) [facility] Red Blood Count 3.68-5.22 Normal (applies to non-numeric results) [facility] Hemoglobin 11.2-15.7 Normal (applies to non-numeric resul ts) [facility] Hematocrit 34.1-44.9 Below low normal [facility] Mean Corpuscular Volume 81-99 Normal (applies to non- numeric results) [facility] Mean Corpuscular Hemoglobin 27.0-33.0 Normal (appli es to non-numeric results) [facility] Mean Corpuscular HGB Conc 32.0-36.0 Normal (applies to no n-numeric results) [facility] Red Cell Distribution Width 11.5-14.5 Normal (appli es to non-numeric results) [facility] Platelet Count 197 X10 3/uL 130-450 Normal (applies to non-numeric results) [facility] Mean Platelet Volume 9.5-12.7 Normal (applies to non-num clementine results) [facility] Imm Grans% (AUTO) 0 % 0-2 Normal (applies to non-numeri c results) [facility] Neutrophils % (AUTO) 46 % 40-75 Normal (applies to non-num clementine results) [facility] Lymphocytes % (AUTO) 42 % 21-46 Normal (applies to non-num clementine results) [facility] Monocytes % (AUTO) 9 % 5-12 Normal (applies to non-numer ic results) [facility] Eosinophils % (AUTO) 3 % 1-5 Normal (applies to non-num clementine results) [facility] Basophils % (AUTO) 1 % 0-1 Normal (applies to non-numer ic results) [facility] Imm Grans# (AUTO) 0.0-0.5 Normal (applies to non-numeri c results) [facility] Neutrophils # (AUTO) 1.5-8.1 Normal (applies to non-num clementine results) [facility] Lymphocytes # (AUTO) 1.0-3.1 Normal (applies to non-num clementine results) [facility] Monocytes # (AUTO) 0.2-1.3 Normal (applies to non-numer ic results) [facility] Eosinophils# (AUTO) 0.0-0.5 Normal (applies to non-nume claudia results) [facility] Basophils # (AUTO) 0.0-0.1 Normal (applies to non-numer ic results) [facility] ID Date Data Source [id number] 04/16/2020 11:13:00 AM EDT [facility] Name Value Range Interpretation Code Description Data Kassy rce(s) Supporting Document(s) Respiratory specimen severe acute respir atory syndrome coronavirus 2 (SARS-CoV-2) RNA [facility] ital This lab was ordered by [facility] lola and reported by [facility]. ID Date Data Source [id number] 04/16/2020 03:13:00 PM EDT [facility] Name Value Range Interpretation Code Description Data Kassy rce(s) Supporting Document(s) Opiate Screen,Urine Negative Normal (applies to non-nume claudia results) [facility] Amphetamine Screen,Urine Negative Normal (applies to non -numeric results) [facility] Benzodiazepines Scrn,Ur result Negative N ormal (applies to non-numeric results) [facility] Cocaine Screen,Urine Negative Normal (applies to non-num clementine results) [facility] Methadone Screen,Urine Negative Normal (applies to non-n umeric results) [facility] Cannabinoid Screen, Ur Negative Normal (applies to non-n umeric results) [facility] Therapeutic Drug Ranges for Emergency an d Rehabilitation Threshold Levels (ng/mL) Cocaine 300 Opiates 300 Cannabinoids 50 Barbiturates 200 Benzodiazepine 200 Methadone 300 Amphetamines 1000 All positive find ings are presumptive and unconfirmed. Confirmation of positive results are performed only at request of provider. Unconfirmed results must not be used for non-medical purposes (i.e. pre-employment and legal purposes) ID Date Data Source [id number] 04/16/2020 02:00:00 PM EDT [facility] Name Value Range Interpretation Code Description Data Kassy rce(s) Supporting Document(s) Color,Urine Yellow Normal (applies to non-numeric resu lts) [facility] Clarity,Urine Clear Normal (applies to non-numeric re sults) [facility] Specific [place],Urine 1.001-1.030 Normal (applies to non- numeric results) [facility] PH,Urine 5.0-8.0 Normal (applies to non-numeric resul ts) [facility] Protein,Urine Negative Normal (applies to non-numeric re sults) [facility] Glucose,Urine (UA) Negative Normal (applies to non-numer ic results) [facility] Ketones,Urine Negative Normal (applies to non-numeric re sults) [facility] Blood,Urine Negative Normal (applies to non-numeric resu lts) [facility] Bilirubin,Urine Negative Normal (applies to non-numeric results) [facility] Urobilinogen,Urine Norm 0.2-1 Normal (applies to non-numer ic results) [facility] Leukocyte Esterase,Urine Negative Normal (applies to non -numeric results) [facility] Nitrite,Urine Negative Normal (applies to non-numeric re sults) [facility] ID Date Data Source [id number] 04/16/2020 02:00:00 PM EDT [facility] Name Value Range Interpretation Code Description Data Kassy rce(s) Supporting Document(s) Urine HCG Negative Normal (applies to non-numeric resul ts) [facility] ID Date Data Source [id number] 04/16/2020 11:13:00 AM EDT [facility] First test? UNKNOWNEmployed in health[facility] re? UNKNOWNSymptomatic per CDC? UNKNOWNHospitalized? UNKNOWNICU? UNKNOWNResident in congregated care? ex long-term, [facility] UNKNOWN? UNKNOWN Name Value Range Interpretation Code Description Data Kassy rce(s) Supporting Document(s) SARS-CoV-2 RNA Negative Normal (applies to non-numeric r esults) [facility] Negative results should be treated as [...] Certificate of Accreditation. Factsheets for healthcare providers: https://www.fda.gov/media/320094/download Factsheets for patients: https://www.fda.gov/media/646093/download THIS IS A STATE REPORTABLE COMMUNICABLE DISEASE. Manual entry verified by Jessika Villareal 04/16/20 1112 Procedure Social History Code Duration Value Status Description Data Source(s ) Smoking 04/14/2021 12:00:00 AM EDT Smoker, current status unkn own completed Smoker, current status unknown [facility] ([facility]) 09/15/2020 12:00:00 AM EST Heavy cigarette smoker (20- 39 cigs/day) completed Heavy cigarette smoker (20-39 cigs/day) [facility] ([facility]) Vital Signs ID Date Data Source UNK Name Value Range Interpretation Code Description Data Source(s) Diastolic blood pressure 73 mm[Hg] 73 mm[Hg] SUSI ([facility]) Systolic blood pressure 104 mm[Hg] 104 mm[Hg] A THENA ([facility]) Body weight 0 [oz_av] 1920 [oz_av] SUSI ([facility]) Body height 154.94 cm 154.94 cm [facility] Body weight 59.239 kg 59.239 kg [facility] ([facility]) Systolic blood pressure 120 mm[Hg] 120 mm[Hg] N [facility] ([facility]) Diastolic blood pressure 77 mm[Hg] 77 mm[Hg] [facility] ([facility] Body mass index (BMI) [Ratio] 24.68 kg/m2 24.68 kg/m2 [facility] ([facility]) Body height 154.94 cm 154.94 cm [facility] ([facility] Body weight 58.967 kg 58.967 kg [facility] ([facility]) Body mass index (BMI) [Ratio] 24.56 kg/m2 24.56 [facility] ID Date Data Source [id number] 02/23/2021 10:02:00 AM EDT [facility] Name Value Range Interpretation Code Description Data Source(s) Weight (Calculated Kilograms) 55.34 55.34 [facility] Height (Calculated Centimeters) 154.94 154. 94 [facility] Body Mass Index (BMI) 23.[address] [facility] ID Date Data Source [id number] 03/09/2021 03:19:00 PM EDT [facility] Name Value Range Interpretation Code Description Data Source(s) Weight Measurement Method 1 1 [facility] Weight (Calculated Kilograms) 55.34 55.34 [facility] Weight 2144 2144 [facility] Temperature Source 7 7 [facility] Temperature 96.4 96.4 [facility] Respiratory Effort 1 1 [facility] Respiratory Rate 16 16 [facility] Pulse Assessment Method 4 4 [facility] Pulse Rate 117 117 [facility] Height (Calculated Centimeters) 154.94 154. 94 [facility] Height 61 61 [facility] Blood Pressure 110/70 110/70 [facility] Body Mass Index (BMI) [address] [facility] Weight Measurement Method 1 1 [facility] Weight (Calculated Kilograms) 55.34 55.34 [facility] Weight 2144 2144 [facility] Temperature Source 7 7 [facility] Temperature 96.4 96.4 [facility] Respiratory Effort 1 1 [facility] Respiratory Rate 16 16 [facility] Pulse Assessment Method 4 4 [facility] Pulse Rate 117 117 [facility] Height (Calculated Centimeters) 154.94 154. 94 [facility] Height 61 61 [facility] Blood Pressure 110/70 110/70 [facility] Body Mass Index (BMI) 23.[address] [facility] Weight Measurement Method 1 1 [facility] Weight (Calculated Kilograms) 55.34 55.34 [facility] Weight 2144 2144 [facility] Temperature Source 7 7 [facility] Temperature 96.4 96.4 [facility] Respiratory Effort 1 1 [facility] Respiratory Rate 16 16 [facility] Pulse Assessment Method 4 4 [facility] Pulse Rate 117 117 [facility] Height (Calculated Centimeters) 154.94 154. 94 [facility] Height 61 61 [facility] Blood Pressure 110/70 110/70 [facility] Body Mass Index (BMI) 23.[address] [facility] Weight Measurement Method 1 1 [facility] Weight (Calculated Kilograms) 55.34 55.34 [facility] Weight 1983 1983 [facility] Temperature Source 7 7 [facility] Temperature 97.3 97.3 [facility] Respiratory Effort 1 1 [facility] Respiratory Rate 14 14 [facility] Pulse Assessment Method 4 4 [facility] Pulse Rate 69 69 [facility] Height (Calculated Centimeters) 154.94 154. 94 [facility] Height 61 61 [facility] Blood Pressure 112/79 112/79 [facility] Body Mass Index (BMI) 23.[address] [facility] Weight Measurement Method 1 1 [facility] Weight (Calculated Kilograms) 55.34 55.34 [facility] Weight 1983 1983 [facility] Temperature Source 7 7 [facility] Temperature 97.1 97.1 [facility] Respiratory Effort 1 1 [facility] Respiratory Rate 16 16 [facility] Pulse Assessment Method 4 4 [facility] Pulse Rate 74 74 [facility] Height (Calculated Centimeters) 154.94 154. 94 [facility] Height 61 61 [facility] Blood Pressure 110/74 110/74 [facility] Body Mass Index (BMI) 23.[address] [facility] Weight (Calculated Kilograms) 56.25 56.25 [facility] Height (Calculated Centimeters) 154.94 154. 94 [facility] Body Mass Index (BMI) 23.[address] [facility] ID Date Data Source [id number] 05/07/2020 09:12:00 AM EDT [facility] Name Value Range Interpretation Code Description Data Source(s) Weight (Calculated Kilograms) 56.25 56.25 [facility] Height (Calculated Centimeters) 154.94 154. 94 [facility] Body Mass Index (BMI) 23.[address] [facility] Weight (Calculated Kilograms) 56.25 56.25 [facility] Height (Calculated Centimeters) 154.94 154. 94 [facility] Body Mass Index (BMI) 23.[address] [facility] Weight (Calculated Kilograms) 56.25 56.25 [facility] Height (Calculated Centimeters) 154.94 154. 94 [facility] Body Mass Index (BMI) 23.[address] [facility] Weight (Calculated Kilograms) 56.25 56.25 [facility] Height (Calculated Centimeters) 154.94 154. 94 [facility] Body Mass Index (BMI) 23.[address] [facility] ID Date Data Source [id number] 05/19/2020 05:30:00 AM EDT [facility] Name Value Range Interpretation Code Description Data Source(s) Weight Measurement Method 1 1 [facility] Weight (Calculated Kilograms) 56.25 56.25 [facility] Weight 2063 2063 [facility] Temperature Source 7 7 [facility] Temperature 97.5 97.5 [facility] Respiratory Effort 1 1 [facility] Respiratory Rate 15 15 [facility] Pulse Assessment Method 4 4 [facility] Pulse Rate 83 83 [facility] Height (Calculated Centimeters) 154.94 154. 94 [facility] Height 61 61 [facility] Blood Pressure 109/75 109/75 [facility] Body Mass Index (BMI) 23.[address] [facility] Weight Measurement Method 1 1 [facility] Weight (Calculated Kilograms) 56.25 56.25 [facility] Weight 2063 2063 [facility] Temperature Source 7 7 [facility] Temperature 97.5 97.5 [facility] Respiratory Effort 1 1 [facility] Respiratory Rate 15 15 [facility] Pulse Assessment Method 4 4 [facility] Pulse Rate 83 83 [facility] Height (Calculated Centimeters) 154.94 154. 94 [facility] Height 61 61 [facility] Blood Pressure 109/75 109/75 [facility] Body Mass Index (BMI) 23.[address] [facility] Weight Measurement Method 1 1 [facility] Weight (Calculated Kilograms) 56.25 56.25 [facility] Weight 2063 2063 [facility] Temperature Source 7 7 [facility] Temperature 97.5 97.5 [facility] Respiratory Effort 1 1 [facility] Respiratory Rate 15 15 [facility] Pulse Assessment Method 4 4 [facility] Pulse Rate 83 83 [facility] Height (Calculated Centimeters) 154.94 154. 94 [facility] Height 61 61 [facility] Blood Pressure 109/75 109/75 [facility] Body Mass Index (BMI) 23.[address] [facility] Weight Measurement Method 1 1 [facility] Weight (Calculated Kilograms) 56.25 56.25 [facility] Weight 2063 2063 [facility] Temperature Source 7 7 [facility] Temperature 97.5 97.5 [facility] Respiratory Effort 1 1 [facility] Respiratory Rate 15 15 [facility] Pulse Assessment Method 4 4 [facility] Pulse Rate 83 83 [facility] Height (Calculated Centimeters) 154.94 154. 94 [facility] Height 61 61 [facility] Blood Pressure 109/75 109/75 [facility] Body Mass Index (BMI) 23.[address] [facility] Weight Measurement Method 1 1 [facility] Weight (Calculated Kilograms) 56.25 56.25 [facility] Weight 1983 1983 [facility] Temperature Source 7 7 [facility] Temperature 96.9 96.9 [facility] Respiratory Effort 1 1 [facility] Respiratory Rate 15 15 [facility] Pulse Assessment Method 4 4 [facility] Pulse Rate 90 90 [facility] Height (Calculated Centimeters) 154.94 154. 94 [facility] Height 61 61 [facility] Blood Pressure 104/67 104/67 [facility] Body Mass Index (BMI) 23.[address] [facility] Weight Measurement Method 1 1 [facility] Weight (Calculated Kilograms) 56.25 56.25 [facility] Weight 1983 1983 [facility] Temperature Source 7 7 [facility] Temperature 97.8 97.8 [facility] Respiratory Effort 1 1 [facility] Respiratory Rate 17 17 [facility] Pulse Assessment Method 4 4 [facility] Pulse Rate 93 93 [facility] Height (Calculated Centimeters) 154.94 154. 94 [facility] Height 61 61 [facility] Blood Pressure 110/87 110/87 [facility] Body Mass Index (BMI) 23.[address] [facility] Weight (Calculated Kilograms) 72.12 72.12 [facility] Height (Calculated Centimeters) 154.94 154. 94 [facility] Body Mass Index (BMI) 30.[address] [facility] Patient Treatment Plan of Care Planned Activity Planned Date Details Description Data Source (s) Sertraline 50 MG Oral Tablet [Zoloft] 01/18/2021 12:00:00 AM [facility]. Risperidone 3 MG Oral Tablet [Risperdal] 01/18/2021 12:00:00 AM [facility] Prazosin 2 MG Oral Capsule [Minipress] 01/18/2021 12:00:00 AM [facility] olanzapine 15 MG Oral Tablet 01/18/2021 12:00:00 AM [facility] Multi-Vit/Mineral (Multivitamin Tablet) 1 TAB TAB [facility] Oral Tablet 01/18/2021 12:00:[address] [facility] gabapentin 600 MG Oral Tablet 01/18/2021 12:00:[address] [facility] doxycycline hyclate 100 MG Oral Tablet 01/18/2021 12:00:00 AM [facility] Docusate Sodium 100 MG Oral Capsule [Colace] 01/18/2021 12:00:[address] [facility] Buprenorphine 8 MG / Naloxone 2 MG Oral Strip [Suboxon e] [facility] MG Oral Tablet 09/22/2020 12:00:00 AM EST [facility] ([facility]) 168 HR Ethinyl Estradiol 0.02372 MG/HR / norelgestromin 0.59543 MG/HR Transdermal Patch [Xulane] 03/03/2020 12:00:00 AM EDT [facility] ([facility]) Trazodone Hydrochloride 100 MG Oral Tablet SUSI ([facility]) topiramate 50 MG Oral Tablet SUSI ([facility]) topiramate 25 MG Oral Tablet SUSI ([facility]) Sulfamethoxazole 800 MG / Trimethoprim 160 MG Oral Tablet [place]AT[place]E ([facility]) Sertraline 50 MG Oral Tablet SUSI ([facility]) Sertraline 25 MG Oral Tablet SUSI ([facility]) Sertraline 100 MG Oral Tablet SUSI ([facility]) Risperidone 3 MG Oral Tablet SUSI ([facility]) Risperidone 2 MG Oral Tablet [facility] [facility] Prazosin 2 MG Oral Capsule A THENA ([facility]) Prazosin 1 MG Oral Capsule A THENA ([facility]) 24 HR paliperidone 6 MG Extended Release Oral Tablet SUSI ([facility]) 24 HR paliperidone 3 MG Extended Release Oral Tablet SUSI ([facility]) 24 HR Oxybutynin chloride 5 MG Extended Release Oral Tablet SUSI ([facility]) 24 HR Oxybutynin chloride 10 MG Extended Release Oral Tablet SUSI ([facility]) olanzapine 5 MG Oral Tablet SUSI ([facility]) olanzapine 5 MG Disintegrating Oral Tablet SUSI ([facility]) benztropine mesylate 1 MG Oral Tablet SUSI ([facility]) atomoxetine 40 MG Oral Capsule SUSI ([facility]) atomoxetine 10 MG Oral Capsule SUSI ([facility]) aripiprazole 2 MG Oral Tablet SUSI ([facility]) Amitriptyline Hydrochloride 25 MG Oral Tablet SUSI ([facility]) Sertraline 50 MG Oral Tablet [Zoloft] [facility]. Risperidone 3 MG Oral Tablet [Risperdal] [facility] Prazosin 2 MG Oral Capsule [Minipress] [facility] olanzapine [address] [facility] Mirtazapine [address] [facility] gabapentin [address] [facility] Docusate Sodium 100 MG Oral Capsule [Colace] [facility] Buprenorphine 8 MG / Naloxone 2 MG Oral Strip [Suboxone] [facility]. topiramate 50 MG Oral Tablet [Topamax] [facility] ([facility]) olanzapine 10 MG Oral Tablet SUSI ([facility]) Naproxen 500 MG Oral Tablet SUSI ([facility]) Mirtazapine 15 MG Oral Tablet SUSI ([facility]) Metronidazole 500 MG Oral Tablet SUSI ([facility]) Loratadine 10 MG Oral Tablet SUSI ([facility]) Levothyroxine Sodium 0.05 MG Oral Tablet SUSI ([facility]) Hydroxyzine Hydrochloride 50 MG Oral Tablet SUSI ([facility]) Hydroxyzine Hydrochloride 25 MG Oral Tablet SUSI ([facility]) Haloperidol 2 MG Oral Tablet SUSI ([facility]) Haloperidol 10 MG Oral Tablet SUSI ([facility]) gabapentin 400 MG Oral Capsule SUSI ([facility]) gabapentin 300 MG Oral Capsule SUSI ([facility]) 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 MG Oral Capsule SUSI ([facility]) Fluoxetine 10 MG Oral Capsule SUSI ([facility]) doxycycline hyclate 100 MG Oral Tablet SUSI ([facility]) Docusate Sodium 100 MG Oral Capsule SUSI ([facility]) Divalproex Sodium 500 MG Delayed Release Oral Tablet SUSI ([facility]) Divalproex Sodium 250 MG Delayed Release Oral Tablet SUSI ([facility]) Cephalexin 500 MG Oral Capsule SUSI ([facility]) buspirone hydrochloride 7.5 MG Oral Tablet SUSI ([facility])
[2021-06-02] MEDS: OLANZapine ORAL DISINTEGRATING TAB 5MG PO PRN ×3 (03:20→08:47)
[2021-06-02 04:06] VITALS: BP 140/95
[2021-06-02] MEDS ORDERED: LORazepam 1 MG TAB PO ONE (06:25)
--- NOTE | 2021-06-02 08:04 | ECGEPIP ---
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
[2021-06-02] MEDS ORDERED: ATOMOXETINE HCL 40 MG CAP (STRATTERA) PO SCH (09:00)
[2021-06-02] MEDS ORDERED: TOPIRAMATE (TopAMAX) 100 MG TAB PO ONE (12:05)
--- NOTE | 2021-06-02 13:00 | HPEPDOC ---
[facility] Medical History & Physical Date of Admission Jun 01, 2021 Date of Service: Jun 02, 2021 Attending Physician: July Mark MD History and Physical HPI: Patient is a 35 y/o F with PMH of bipolar disorder, depression, anxiety, schizoaffective disorder, history of substance - induced psychosis, schizophrenia, multiple suicide attempts by overdose who initially presented to ER at [facility] with paranoid thoughts of people trying to kill her. The police were called and she told them she was getting stabbed. She was later admitted by psychiatry team for unspecified psychotic disorder. On exam, patient was still paranoid, indicating people were watching her. She appeared disheveled, had disorganized thinking. She admitted to some chest pain, substernal on admission but states that she did not have it currently. ECG on admission showed QTc prolonged at 522. She is noted to be on atomoxetine (Strattera), fluoxetine, mirtazipine and trazodone- all of which can cause prolongation of QTc. Repeat ECG day after admission 06/02/21 showed improvement of 465. All home meds are being held by psychiatry. She is on denied headache, nausea, vomiting, chest pain, shortness breath, cough, abdominal pain, diarrhea, constipation, or urinary discomfort. She denies any recent fevers or chills. ROS: Neg except mentioned above. Past Medical History: Bipolar disorder / Depression / Anxiety / Schizoaffective disorder Seizure disorder Migraine headaches Hx of substance induced psychosis Past Surgical History: x 2 Hernia repair, umbilical 2 Allergies: See below Medications: See below Family History: Father with a history of cirrhosis / Mother reported healthy Social History: Denies the use of alcohol; Reports shes an active smoker, reports the use of Sylvie and heroin IV was recent was 2 days prior Denies recent travel or sick contacts Lives alone Occupation; unemployed Physical exam: Vitals: Please see below General: sitting up in chair, appears disheveled. follows commands HEENT: NC, AT, PERRLA CVS: RRR, +S1S2, - Murmurs / rubs / gallops Lungs: Fair air entry bilaterally, No appreciable wheezing / rales / rhonchi Abdomen: Soft, Non-distended, Non-tender Extremities: No lower extremity edema, No calf tenderness Neuro: No focal motor or sensory deficit Skin: right hand wound, well healing, no drainage / tenderness Psych: paranoid Labs: See below Imaging: See below EKG: See below Assessment and Plan: Unspecified psychotic disorder, paranoid thoughts -Hx of Bipolar disorder / Depression / Anxiety / Schizoaffective disorder -Plan per psychiatry team QTc prolongation -Currently denies chest pain, shortness of breath, palpitations -She is noted to be on atomoxetine (Strattera), fluoxetine, mirtazipine and trazodone- all of which can cause prolongation of QTc -Initially 522, ECG today showed resolved prolongation at 465 -Discussed with psychiatry provider and medication regimen was modified Seizure disorder - Patient reports her most recent seizure was greater than 5 years ago - Recommend continuing with topiramate now that QTc has improved Migraine headaches - c/w Tylenol PRN DISPOSITION: Thank you kindly for this consult. We'll sign off with the suggestions made above. If we are needed going forward please do not hesitate to call at any time. Vital Signs Vital Signs Date Time Temp Pulse Resp B/P (MAP) Pulse Ox O2 Delivery O2 Flow Rate FiO2 06/02/21 04:06 98.2 99 18 140/95 (110) 98 Room Air Laboratory Data Labs 24H Laboratory Tests 2 06/01/21 17:32: Nucleated Red Blood Cells % (auto) 0.0, Anion Gap 9, Glomerular Filtration Rate > 60.0, Calcium Level 9.8, Total Bilirubin 0.5, Direct Bilirubin 0.2, Aspartate Amino Transf (AST/SGOT) 30, Alanine Aminotransferase (ALT/SGPT) 34, Alkaline Phosphatase 106, Total Protein 8.7H, Albumin 4.1, Albumin/Globulin Ratio 0.9L, Thyroid Stimulating Hormone (TSH) 0.826, Human Chorionic Gonadotropin, Qual NEGATIVE, Salicylates Level 2.9L, Acetaminophen Level < 2.0L, Ethyl Alcohol Level < 0.003 06/01/21 17:53: Urine Opiates Screen NEGATIVE, Urine Methadone Screen NEGATIVE, Urine Barbiturates Screen NEGATIVE, Urine Phencyclidine Screen NEGATIVE, Urine Amphetamines Screen NEGATIVE, Urine Benzodiazepines Screen NEGATIVE, Urine Cocaine Metabolite Screen NEGATIVE, Urine Cannabinoids Screen NEGATIVE 06/01/21 23:01: Coronavirus (COVID-19)(PCR) NEGATIVE, Influenza Type A (RT-PCR) NEGATIVE, Influenza Type B (RT-PCR) NEGATIVE, Respiratory Syncytial Virus (PCR) NEGATIVE CBC/BMP Laboratory Tests 06/01/21 17:32 Home Medications Scheduled Aripiprazole (Abilify) 10 Mg Tablet, 10 MG PO DAILY Aripiprazole (Abilify Maintena) 400 Mg Suser.syr, 400 MG IM Q30D Atomoxetine Hydrochloride (Strattera) 60 Mg Capsule, 60 MG PO DAILY Buprenorphine HCl/Naloxone HCl (Suboxone 8 mg-2 mg Sl Film) 1 Each Film, 1 STRIP SL BID Buprenorphine HCl/Naloxone HCl (Suboxone 2 mg-0.5 mg Sl Film) 1 Each Film, 1 STRIP SL QHS TAKES WITH 8MG FOR 10MG TOTAL AT QHS Buspirone HCl (Buspirone HCl) 15 Mg Tablet, 15 MG PO TID Docusate Sodium (Docusate Sodium) 100 Mg Capsule, 100 MG PO DAILY Fluoxetine Hcl (Fluoxetine HCl) 20 Mg Capsule, 40 MG PO DAILY Gabapentin (Gabapentin) 600 Mg Tablet, 600 MG PO TID Mirtazapine (Remeron) 15 Mg Tablet, 15 MG PO QHS Mupirocin (Mupirocin) 2 % Oint...g., 1 DOSE EXT BID STARTED ON 05/13/21, APPLY TO WOUND ON RIGHT ARM Oxybutynin Chloride (Oxybutynin Chloride) 5 Mg Tablet, 5 MG PO BID Topiramate (Topiramate) 100 Mg Tablet, 100 MG PO DAILY Scheduled PRN Nicotine Polacrilex (Nicotine Gum) 4 Mg Gum, 4 MG MT QID PRN for SMOKING CESSATION Trazodone HCl (Trazodone HCl) 50 Mg Tablet, 50 MG PO QHS PRN for INSOMNIA Allergies Coded Allergies: No Known Allergies (Verified , 06/02/20) A-FIB/CHADSVASC A-FIB History Current/History of A-Fib/PAF?: No Current PO Anticoag Therapy: No Age/Risk Factor Scoring CHADSVASC: CHADSVASC Response (Comments) Value Age Risk Factor Age < 65 years old 0 Gender Risk Factor Female 1 Hx of CHF No 0 Hx of HTN No 0 Hx of Stroke/TIA/or VTE No 0 Hx of Diabetes No 0 Hx of Vascular Disease No 0 Total 1 Treatment Treatment ordered: NONE Other anticoagulant ordered: none July Mark MD Jun 02, 2021 13:00
[2021-06-02] MEDS: FLUoxetine 20 MG CAP PO SCH (13:02)
[2021-06-02] MEDS: DOCUSATE SODIUM 100MG CAPSULE PO SCH (13:03)
[2021-06-02] MEDS: ARIPiprazole 10 MG TAB PO SCH (13:03)
[2021-06-02] MEDS: TOPIRAMATE (TopAMAX) 100 MG TAB PO SCH (13:04)
[2021-06-02] MEDS: ATOMOXETINE HCL 40 MG CAP (STRATTERA) PO SCH (13:22)
[2021-06-02] MEDS: oxyBUTYnin 5 MG TAB PO SCH ×2 (13:23→20:38)
[2021-06-02] MEDS: BUPRENORPHINE/NALOXONE 8-2MG SUBLINGUAL TABLET(SUBOXONE) SL SCH ×2 (13:23→20:39)
[2021-06-02] MEDS: BUPRENORPHINE/NALOXONE 2-0.5MG SUBLINGUAL TABLET(SUBOXONE) SL SCH (13:24)
[2021-06-02] MEDS: busPIRone 5 MG TAB PO SCH ×2 (15:03→20:38)
[2021-06-02] MEDS: GABAPENTIN 300 MG CAP PO SCH ×2 (15:04→20:37)
[2021-06-02] MEDS ORDERED: GABAPENTIN 300 MG CAP PO SCH (16:00)
[2021-06-02] MEDS ORDERED: BUPRENORPHINE/NALOXONE 8-2MG SUBLINGUAL TABLET(SUBOXONE) SL SCH ×2 (16:00→21:00)
[2021-06-02] MEDS ORDERED: busPIRone 5 MG TAB PO SCH (16:00)
[2021-06-02 19:06] VITALS: BP 126/75
[2021-06-02] MEDS: MIRTAZAPINE 15 MG TAB PO SCH (20:38)
[2021-06-02] MEDS ORDERED: MIRTAZAPINE 15 MG TAB PO SCH (21:00)
[2021-06-02] MEDS ORDERED: MUPIROCIN 2% OINT 22 GM TUBE EXT SCH (21:00)
[2021-06-02] MEDS ORDERED: BUPRENORPHINE/NALOXONE 2-0.5MG SUBLINGUAL TABLET(SUBOXONE) SL SCH ×2 (21:00)
[2021-06-02] MEDS ORDERED: oxyBUTYnin 5 MG TAB PO SCH (21:00)
--- NOTE | 2021-06-02 21:29 | ECGEPIP ---
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
[2021-06-02] MEDS: NICOTINE 21MG/24HR 1 EA TRANSDERMAL TD PRN (21:39)
[2021-06-03] VITALS (8 sets, daily range): BP systolic 90–136; BP diastolic 66–79
[2021-06-03] MEDS: LORazepam 2 MG TAB PO PRN ×2 (02:46→04:28)
[2021-06-03] MEDS: THIAMINE 100 MG TAB PO SCH ×4 (02:49→20:02)
[2021-06-03] MEDS ORDERED: ARIPiprazole 10 MG TAB PO SCH (09:00)
[2021-06-03] MEDS ORDERED: ARIPiprazole 10 MG TAB NG SCH (09:00)
[2021-06-03] MEDS: MULTIVITAMINS/MINERALS THERAP 1 TAB PO SCH ×2 (09:00→13:08)
[2021-06-03] MEDS ORDERED: ATOMOXETINE HCL 40 MG CAP (STRATTERA) PO SCH (09:00)
[2021-06-03] MEDS: oxyBUTYnin 5 MG TAB PO SCH ×2 (09:00→13:05)
[2021-06-03] MEDS: BUPRENORPHINE/NALOXONE 2-0.5MG SUBLINGUAL TABLET(SUBOXONE) SL SCH (09:00)
[2021-06-03] MEDS: TOPIRAMATE (TopAMAX) 100 MG TAB PO SCH (09:00)
[2021-06-03] MEDS ORDERED: TOPIRAMATE (TopAMAX) 100 MG TAB PO SCH (09:00)
[2021-06-03] MEDS: busPIRone 5 MG TAB PO SCH ×4 (09:00→20:02)
[2021-06-03] MEDS: BUPRENORPHINE/NALOXONE 8-2MG SUBLINGUAL TABLET(SUBOXONE) SL SCH ×2 (09:00→15:12)
[2021-06-03] MEDS: DOCUSATE SODIUM 100MG CAPSULE PO SCH ×2 (09:00→13:07)
[2021-06-03] MEDS: ATOMOXETINE HCL 40 MG CAP (STRATTERA) PO SCH (09:00)
[2021-06-03] MEDS: GABAPENTIN 300 MG CAP PO SCH ×4 (09:00→20:02)
[2021-06-03] MEDS ORDERED: BUPRENORPHINE/NALOXONE 8-2MG SUBLINGUAL TABLET(SUBOXONE) SL SCH (09:00)
[2021-06-03] MEDS ORDERED: FLUoxetine 20 MG CAP PO SCH (09:00)
[2021-06-03] MEDS: FLUoxetine 20 MG CAP PO SCH ×2 (09:00→13:08)
[2021-06-03] MEDS ORDERED: DOCUSATE SODIUM 100MG CAPSULE PO SCH ×2 (09:00)
[2021-06-03] MEDS: FOLIC ACID 1 MG TAB PO SCH ×2 (09:00→13:05)
[2021-06-03] MEDS: ARIPiprazole 10 MG TAB PO SCH ×2 (09:00→13:07)
[2021-06-03] MEDS ORDERED: LORazepam 2 MG TAB PO PRN (14:35)
--- NOTE | 2021-06-03 15:03 | MHIPNPDOC ---
[facility] Progress Note Progress Note DATE OF SERVICE: 06/03/21 HISTORY: Patient is a 35 -year-old , female, who has a history of substance-induced psychosis, schizophrenia, polysubstance abuse, and multiple suicide attempts by overdose self presents, patient had called 911 stating that someone had injected her with battery acid, has stated PSA that she was here pretty much for an overdose so need a heart floor, patient endorsed using Rock yesterday. Was recently discharged May 25, 2021 in context of positive tox screen for amphetamines, on this occasion toxicology screen is negative. Patient appears disorganized, is sitting in bed and talking about devices on her. She is alert and oriented x3, EKG prior to admission shows a QTC of 522 ms, I will take medications at this time until results come back for repeat EKG which was ordered. Patient has a history of multiple admissions, suicide attempts and polysubstance abuse. Unable to fully assess psychiatric review of systems due to acute disorganization Interval: Patient states she does not remember the last few days, reports she had smoked cannabis, toxicology screen was negative, patient is alert and oriented to person, place, year, still thinks it is early May. Reports doing well with medications. Denies suicidal thoughts, states mood is even. VITAL SIGNS: See below. NEW TEST RESULTS: Ordered CK, patient reports dehydration, has cracked tongue and lips, ordered Magic mouth liquid, Vaseline order for dry lips. CURRENT MEDICATIONS: See below. MENTAL STATUS EXAMINATION: Patient is a 35-year old female, who is in no acute distress, Speech: Is somewhat slowed, decreased amount, spontaneous Language skills are fair Thought processes including: linear, logical Thought content: denies SI, intent or plan Abstract reasoning, and computation: improved Description of associations: intact Description of abnormal or psychotic thoughts: denies Judgment: improving Insight: improving Orientation: x4 Recent and remote memory: fair Attention span and concentration: improving Language: luxembour[place] Fund of knowledge: average Mood: "okay" Affect: constricted, euthymic DIAGNOSES: Schizoaffective disorder per history Rule out substance-induced psychotic disorder Methamphetamine use disorder, severe Heroin use disorder, severe Tobacco use disorder Hallucinogen use disorder,"rock" ASSESSMENT: Patient reports lack of memory for the last few days next smoking cannabis, despite negative tox screen, concern for synthetic cannabis as patient was grossly psychotic and agitated last few days with little recollection of events, today is calm, pleasant, engaged and tolerating medications without side effects. Reports some dark urine in the morning, ordered CK, as patient has been reporting she feels dehydrated, was encouraged to increase p.o. intake, mouthwash for dry mouth was ordered and nursing free text for Vaseline for dry lips. MANAGEMENT PLAN: Continue medications, ordered CK level TIME SPENT: 20 minutes. Vital Signs Vital Signs Date Time Temp Pulse Resp B/P (MAP) Pulse Ox O2 Delivery O2 Flow Rate FiO2 06/03/21 06:19 97.3 82 16 136/76 (96) 98 Room Air Current Medications Current Medications Medications (Trade) Dose Ordered Sig/René Route PRN Reason Start Time Stop Time Status Last Admin Dose Admin Acetaminophen (Tylenol Tab) 650 mg Q6HP PRN PO HEADACHE or MILD DISCOMFORT 06/02/21 00:50 Al Hydrox/Mg Hydrox/Simethicone (Mylanta) 30 ml Q4HP PRN PO HEARTBURN/INDIGESTION 06/02/21 00:50 Aripiprazole (AbiLIFY) 10 mg DAILY NG 06/03/21 09:00 UNV Aripiprazole (AbiLIFY) 10 mg DAILY PO 06/02/21 09:00 06/03/21 13:07 Aripiprazole (AbiLIFY) 10 mg DAILY PO 06/03/21 09:00 06/02/21 12:35 DC Atomoxetine HCl (Strattera (Atomoxetine)) 40 mg QAM PO 06/02/21 09:00 06/02/21 13:22 Atomoxetine HCl (Strattera (Atomoxetine)) 60 mg QAM PO 06/02/21 09:00 06/02/21 13:01 DC Atomoxetine HCl (Strattera (Atomoxetine)) 60 mg QAM PO 06/03/21 09:00 UNV Buprenorphine/ Naloxone (Suboxone 2/ 0.5mg) 1 tab QAM SL 06/02/21 09:00 06/02/21 13:24 Buprenorphine/ Naloxone (Suboxone 2/ 0.5mg) 1 tab QHS SL 06/02/21 21:00 06/02/21 13:00 DC Buprenorphine/ Naloxone (Suboxone 2/ 0.5mg) 1 tab QHS SL 06/02/21 21:00 UNV Buprenorphine/ Naloxone (Suboxone 8/2mg) 1 tab 1300,2000 SL 06/02/21 13:00 06/02/21 20:01 DC 06/02/21 20:39 Buprenorphine/ Naloxone (Suboxone 8/2mg) 1 tab BID@0900,1600 SL 06/02/21 16:00 06/02/21 13:05 DC Buprenorphine/ Naloxone (Suboxone 8/2mg) 1 tab BID@0900,1600 SL 06/03/21 09:00 Buprenorphine/ Naloxone (Suboxone 8/2mg) 1 tab QAM SL 06/03/21 09:00 UNV Buprenorphine/ Naloxone (Suboxone 8/2mg) 1 tab QHS SL 06/02/21 21:00 UNV Buspirone HCl (Buspar) 15 mg TID PO 06/02/21 16:00 06/02/21 11:56 DC Buspirone HCl (Buspar) 15 mg TID PO 06/02/21 16:00 06/03/21 13:08 Docusate Sodium (Colace) 100 mg DAILY PO 06/02/21 09:00 06/03/21 13:07 Docusate Sodium (Colace) 100 mg DAILY PO 06/03/21 09:00 06/02/21 11:56 DC Docusate Sodium (Colace) 100 mg DAILY PO 06/03/21 09:00 UNV Fluoxetine HCl (PROzac) 40 mg DAILY PO 06/03/21 09:00 06/02/21 11:56 DC Fluoxetine HCl (PROzac) 40 mg QAM PO 06/02/21 09:00 06/03/21 13:08 Folic Acid (Folic Acid) 1 mg DAILY PO 06/03/21 09:00 06/03/21 13:05 Gabapentin (Neurontin) 600 mg TID PO 06/02/21 16:00 06/03/21 13:07 Gabapentin (Neurontin) 600 mg TID PO 06/02/21 16:00 UNV Home Med (Home Med List Complete!) ASDIRECTED XX 06/02/21 00:45 06/02/21 00:45 DC Lidocaine/ Diphenhydr/Alum/ Mg/Simeth (Magic Mouthwash) 5ML Q4HP PRN SS ORAL PAIN/DISCOMFORT 06/03/21 14:30 UNV Lorazepam (Ativan) 0.5 mg ASDIRECTED PRN PO SEE PROTOCOL 06/03/21 14:35 UNV Lorazepam (Ativan) 2 mg ASDIRECTED PRN PO SEE PROTOCOL 06/03/21 02:35 06/03/21 14:34 DC 06/03/21 04:28 Magnesium Hydroxide (Milk Of Magnesia) 30 ml DAILYPRN PRN PO CONSTIPATION 06/02/21 00:50 Mirtazapine (Remeron) 15 mg QHS PO 06/02/21 21:00 06/02/21 11:56 DC Mirtazapine (Remeron) 15 mg QHS PO 06/02/21 21:00 06/02/21 20:38 Multivitamins (Theragram-M) 1 tab DAILY PO 06/03/21 09:00 06/03/21 13:08 Mupirocin (Bactroban 2% Ointment) 1 dose BID EXT 06/02/21 21:00 06/02/21 11:59 DC Mupirocin (Bactroban 2% Ointment) 1 dose BID TOP 06/03/21 21:00 UNV Nicotine (Nicoderm Cq 21mg) 1 patch DAILYPRN PRN TD NICOTINE WITHDRAWAL 06/02/21 11:30 06/02/21 21:39 Olanzapine (ZyPREXA ZYDIS) 5 mg Q2HP PRN PO ANXIETY/AGITATION 06/02/21 00:50 06/02/21 08:47 Oxybutynin Chloride (Ditropan) 5 mg BID PO 06/02/21 09:00 06/03/21 09:00 Oxybutynin Chloride (Ditropan) 5 mg BID PO 06/02/21 21:00 06/02/21 11:56 DC Thiamine HCl (Thiamine HCl) 100 mg BID PO 06/02/21 21:00 06/05/21 09:01 06/03/21 13:07 Topiramate (TopAMAX) 100 mg DAILY PO 06/02/21 09:00 06/02/21 13:04 Topiramate (TopAMAX) 100 mg DAILY PO 06/03/21 09:00 06/02/21 11:56 DC Trazodone HCl (Desyrel) 50 mg QHS PRN PO INSOMNIA 06/02/21 11:50 06/02/21 11:56 DC Trazodone HCl (Desyrel) 50 mg QHSP PRN PO INSOMNIA 06/02/21 00:50 Trazodone HCl (Desyrel) 50 mg QHSP PRN PO INSOMNIA 06/02/21 12:05 UNV Allergies Coded Allergies: No Known Allergies (Verified , 06/02/20) BRANDI ESTES MD Jun 03, 2021 15:03
[2021-06-03] MEDS: OLANZapine ORAL DISINTEGRATING TAB 5MG PO PRN (19:57)
[2021-06-03] MEDS: MUPIROCIN 2% OINT 22 GM TUBE TOP SCH (20:02)
[2021-06-03] MEDS: MIRTAZAPINE 15 MG TAB PO SCH (20:02)
[2021-06-04] MEDS: OLANZapine ORAL DISINTEGRATING TAB 5MG PO PRN ×3 (00:32→15:13)
[2021-06-04] MEDS: MAGIC MOUTHWASH SUSPENSION BTL SS PRN ×2 (05:36→16:20)
[2021-06-04 06:27] VITALS: BP 129/78
[2021-06-04] MEDS: MUPIROCIN 2% OINT 22 GM TUBE TOP SCH ×2 (08:38→20:19)
[2021-06-04] MEDS: TOPIRAMATE (TopAMAX) 100 MG TAB PO SCH (08:39)
[2021-06-04] MEDS: FLUoxetine 20 MG CAP PO SCH (08:39)
[2021-06-04] MEDS: BUPRENORPHINE/NALOXONE 2-0.5MG SUBLINGUAL TABLET(SUBOXONE) SL SCH (08:39)
[2021-06-04] MEDS: GABAPENTIN 300 MG CAP PO SCH ×3 (08:39→20:15)
[2021-06-04] MEDS: THIAMINE 100 MG TAB PO SCH ×2 (08:39→20:15)
[2021-06-04] MEDS: DOCUSATE SODIUM 100MG CAPSULE PO SCH (08:39)
[2021-06-04] MEDS: MULTIVITAMINS/MINERALS THERAP 1 TAB PO SCH (08:39)
[2021-06-04] MEDS: FOLIC ACID 1 MG TAB PO SCH (08:40)
[2021-06-04] MEDS: oxyBUTYnin 5 MG TAB PO SCH ×2 (08:40→20:15)
[2021-06-04] MEDS: ARIPiprazole 10 MG TAB PO SCH (08:40)
[2021-06-04] MEDS: busPIRone 5 MG TAB PO SCH ×3 (08:40→20:15)
[2021-06-04] MEDS: ATOMOXETINE HCL 40 MG CAP (STRATTERA) PO SCH (08:40)
[2021-06-04] MEDS: BUPRENORPHINE/NALOXONE 8-2MG SUBLINGUAL TABLET(SUBOXONE) SL SCH ×2 (08:40→15:13)
[2021-06-04 09:06] VITALS: BP 129/78
--- NOTE | 2021-06-04 13:49 | MHIPNPDOC ---
[facility] Progress Note Progress Note DATE OF SERVICE: 06/04/21 HISTORY: Patient is a 35 -year-old , female, who has a history of substance-induced psychosis, schizophrenia, polysubstance abuse, and multiple suicide attempts by overdose self presents, patient had called 911 stating that someone had injected her with battery acid, has stated PSA that she was here pretty much for an overdose so need a heart floor, patient endorsed using Rock yesterday. Was recently discharged May 25, 2021 in context of positive tox screen for amphetamines, on this occasion toxicology screen is negative. Patient appears disorganized, is sitting in bed and talking about devices on her. Had a repeat EKG which was within normal limits. Interval: Patient continues to be grossly disorganized for periods of time, primarily in the evenings in context of reported's drug use. Tolerating medications without side effects VITAL SIGNS: See below. NEW TEST RESULTS: CK 77 CURRENT MEDICATIONS: See below. MENTAL STATUS EXAMINATION: Patient is a 35-year old female, who is in no acute distress, Speech: Is somewhat slowed, decreased amount, spontaneous Language skills are fair Thought processes including: linear, logical Thought content: denies SI, intent or plan Abstract reasoning, and computation: improved Description of associations: intact Description of abnormal or psychotic thoughts: denies Judgment: improving Insight: improving Orientation: x4 Recent and remote memory: fair Attention span and concentration: improving Language: divehi Fund of knowledge: average Mood: "I wanna leave" Affect: Disorganized, labile, irritable DIAGNOSES: Schizoaffective disorder per history Substance-induced psychotic disorder, Hallucinogen use disorder,"rock" vs s ynthetic cannabis Methamphetamine use disorder, severe Heroin use disorder, severe Tobacco use disorder ASSESSMENT: Patient continues to have periods of psychosis, agitation in the evenings primarily, on interview she is somewhat disorganized and irritable wanting to be discharged, CK level within normal limits at 77. Patient requires continued stay in context of likely drug-induced psychotic symptoms, this is despite toxicology screen on admission being negative, had previously reported using Rock and cannabis. Labs previously ordered inconsistent for delirium, patient has been complaining of dehydration, reordered CMP and ammonia level as synthetic drugs may increase LFTs. MANAGEMENT PLAN: Continue medications TIME SPENT: 25 minutes. Vital Signs Vital Signs Date Time Temp Pulse Resp B/P (MAP) Pulse Ox O2 Delivery O2 Flow Rate FiO2 06/04/21 09:06 88 129/78 06/04/21 06:27 97.6 16 100 Room Air Laboratory Data 24H Labs Laboratory Tests 2 06/03/21 14:50: Total Creatine Kinase 77 Current Medications Current Medications Medications (Trade) Dose Ordered Sig/René Route PRN Reason Start Time Stop Time Status Last Admin Dose Admin Acetaminophen (Tylenol Tab) 650 mg Q6HP PRN PO HEADACHE or MILD DISCOMFORT 06/02/21 00:50 06/03/21 15:29 Al Hydrox/Mg Hydrox/Simethicone (Mylanta) 30 ml Q4HP PRN PO HEARTBURN/INDIGESTION 06/02/21 00:50 Aripiprazole (AbiLIFY) 10 mg DAILY NG 06/03/21 09:00 UNV Aripiprazole (AbiLIFY) 10 mg DAILY PO 06/02/21 09:00 06/04/21 08:40 Aripiprazole (AbiLIFY) 10 mg DAILY PO 06/03/21 09:00 06/02/21 12:35 DC Atomoxetine HCl (Strattera (Atomoxetine)) 40 mg QAM PO 06/02/21 09:00 06/04/21 08:40 Atomoxetine HCl (Strattera (Atomoxetine)) 60 mg QAM PO 06/02/21 09:00 06/02/21 13:01 DC Atomoxetine HCl (Strattera (Atomoxetine)) 60 mg QAM PO 06/03/21 09:00 UNV Buprenorphine/ Naloxone (Suboxone 2/ 0.5mg) 1 tab QAM SL 06/02/21 09:00 06/04/21 08:39 Buprenorphine/ Naloxone (Suboxone 2/ 0.5mg) 1 tab QHS SL 06/02/21 21:00 06/02/21 13:00 DC Buprenorphine/ Naloxone (Suboxone 2/ 0.5mg) 1 tab QHS SL 06/02/21 21:00 UNV Buprenorphine/ Naloxone (Suboxone 8/2mg) 1 tab 1300,2000 SL 06/02/21 13:00 06/02/21 20:01 DC 06/02/21 20:39 Buprenorphine/ Naloxone (Suboxone 8/2mg) 1 tab BID@0900,1600 SL 06/02/21 16:00 06/02/21 13:05 DC Buprenorphine/ Naloxone (Suboxone 8/2mg) 1 tab BID@0900,1600 SL 06/03/21 09:00 06/04/21 08:40 Buprenorphine/ Naloxone (Suboxone 8/2mg) 1 tab QAM SL 06/03/21 09:00 UNV Buprenorphine/ Naloxone (Suboxone 8/2mg) 1 tab QHS SL 06/02/21 21:00 UNV Buspirone HCl (Buspar) 15 mg TID PO 06/02/21 16:00 06/02/21 11:56 DC Buspirone HCl (Buspar) 15 mg TID PO 06/02/21 16:00 06/04/21 08:40 Docusate Sodium (Colace) 100 mg DAILY PO 06/02/21 09:00 06/04/21 08:39 Docusate Sodium (Colace) 100 mg DAILY PO 06/03/21 09:00 06/02/21 11:56 DC Docusate Sodium (Colace) 100 mg DAILY PO 06/03/21 09:00 UNV Fluoxetine HCl (PROzac) 40 mg DAILY PO 06/03/21 09:00 06/02/21 11:56 DC Fluoxetine HCl (PROzac) 40 mg QAM PO 06/02/21 09:00 06/04/21 08:39 Folic Acid (Folic Acid) 1 mg DAILY PO 06/03/21 09:00 06/04/21 08:40 Gabapentin (Neurontin) 600 mg TID PO 06/02/21 16:00 06/04/21 08:39 Gabapentin (Neurontin) 600 mg TID PO 06/02/21 16:00 UNV Home Med (Home Med List Complete!) ASDIRECTED XX 06/02/21 00:45 06/02/21 00:45 DC Lidocaine/ Diphenhydr/Alum/ Mg/Simeth (Magic Mouthwash) 5ML Q4HP PRN SS ORAL PAIN/DISCOMFORT 06/03/21 14:30 06/04/21 05:36 Lorazepam (Ativan) 0.5 mg ASDIRECTED PRN PO SEE PROTOCOL 06/03/21 14:35 06/04/21 12:30 DC Lorazepam (Ativan) 2 mg ASDIRECTED PRN PO SEE PROTOCOL 06/03/21 02:35 06/03/21 14:34 DC 06/03/21 04:28 Magnesium Hydroxide (Milk Of Magnesia) 30 ml DAILYPRN PRN PO CONSTIPATION 06/02/21 00:50 Mirtazapine (Remeron) 15 mg QHS PO 06/02/21 21:00 06/02/21 11:56 DC Mirtazapine (Remeron) 15 mg QHS PO 06/02/21 21:00 06/03/21 20:02 Multivitamins (Theragram-M) 1 tab DAILY PO 06/03/21 09:00 06/04/21 08:39 Mupirocin (Bactroban 2% Ointment) 1 dose BID EXT 06/02/21 21:00 06/02/21 11:59 DC Mupirocin (Bactroban 2% Ointment) apply to R wrist so... BID TOP 06/03/21 21:00 06/04/21 08:38 Nicotine (Nicoderm Cq 21mg) 1 patch DAILYPRN PRN TD NICOTINE WITHDRAWAL 06/02/21 11:30 06/02/21 21:39 Olanzapine (ZyPREXA ZYDIS) 5 mg Q2HP PRN PO ANXIETY/AGITATION 06/02/21 00:50 06/04/21 10:33 Oxybutynin Chloride (Ditropan) 5 mg BID PO 06/02/21 09:00 06/04/21 08:40 Oxybutynin Chloride (Ditropan) 5 mg BID PO 06/02/21 21:00 06/02/21 11:56 DC Thiamine HCl (Thiamine HCl) 100 mg BID PO 06/02/21 21:00 06/05/21 09:01 06/04/21 08:39 Topiramate (TopAMAX) 100 mg DAILY PO 06/02/21 09:00 06/04/21 08:39 Topiramate (TopAMAX) 100 mg DAILY PO 06/03/21 09:00 06/02/21 11:56 DC Trazodone HCl (Desyrel) 50 mg QHS PRN PO INSOMNIA 06/02/21 11:50 06/02/21 11:56 DC Trazodone HCl (Desyrel) 50 mg QHSP PRN PO INSOMNIA 06/02/21 00:50 06/03/21 20:02 Trazodone HCl (Desyrel) 50 mg QHSP PRN PO INSOMNIA 06/02/21 12:05 UNV Allergies Coded Allergies: No Known Allergies (Verified , 06/02/20) BRANDI ESTES MD Jun 04, 2021 13:49
[2021-06-04] MEDS ORDERED: LORazepam 2 MG TAB PO PRN (15:55)
[2021-06-04] MEDS ORDERED: CEPACOL LOZENGE PO PRN (16:40)
[2021-06-04 18:00] VITALS: BP 140/79
[2021-06-04 19:40] LABS: ALBUMIN 3.9 GM/DL (3.2-5.2); ALT/SGPT 33 U/L (12-78); BILIRUBIN,TOTAL 0.2 MG/DL (0.2-1.0); BLOOD UREA NITROGEN 14 MG/DL (7-18); CALCIUM LEVEL 9.2 MG/DL (8.5-10.1); CARBON DIOXIDE LEVEL 25 MEQ/L (21-32); CHLORIDE LEVEL 111 MEQ/L (98-107); CREATININE FOR GFR 0.84 MG/DL (0.55-1.30); GLOMERULAR FILTRATION RATE > 60.0 (>60); GLUCOSE, FASTING 75 MG/DL (70-100); POTASSIUM SERUM 4.2 MEQ/L (3.5-5.1); SODIUM LEVEL 140 MEQ/L (136-145); TOTAL PROTEIN 8.1 GM/DL (6.4-8.2)
[2021-06-04] MEDS: MIRTAZAPINE 15 MG TAB PO SCH (20:15)
[2021-06-05] MEDS: MULTIVITAMINS/MINERALS THERAP 1 TAB PO SCH (09:05)
[2021-06-05] MEDS: FLUoxetine 20 MG CAP PO SCH (09:05)
[2021-06-05] MEDS: FOLIC ACID 1 MG TAB PO SCH (09:05)
[2021-06-05] MEDS: ATOMOXETINE HCL 40 MG CAP (STRATTERA) PO SCH (09:05)
[2021-06-05] MEDS: busPIRone 5 MG TAB PO SCH ×3 (09:05→22:45)
[2021-06-05] MEDS: GABAPENTIN 300 MG CAP PO SCH ×3 (09:05→22:45)
[2021-06-05] MEDS: ARIPiprazole 10 MG TAB PO SCH (09:05)
[2021-06-05] MEDS: DOCUSATE SODIUM 100MG CAPSULE PO SCH (09:05)
[2021-06-05] MEDS: oxyBUTYnin 5 MG TAB PO SCH ×2 (09:06→22:45)
[2021-06-05] MEDS: MUPIROCIN 2% OINT 22 GM TUBE TOP SCH ×2 (09:07→21:00)
[2021-06-05] MEDS: THIAMINE 100 MG TAB PO SCH (09:07)
[2021-06-05] MEDS: TOPIRAMATE (TopAMAX) 100 MG TAB PO SCH (09:07)
[2021-06-05] MEDS: NICOTINE 21MG/24HR 1 EA TRANSDERMAL TD PRN (09:14)
[2021-06-05] MEDS: BUPRENORPHINE/NALOXONE 8-2MG SUBLINGUAL TABLET(SUBOXONE) SL SCH ×2 (09:15→16:00)
[2021-06-05] MEDS: BUPRENORPHINE/NALOXONE 2-0.5MG SUBLINGUAL TABLET(SUBOXONE) SL SCH (09:15)
[2021-06-05] MEDS ORDERED: BENZTROPINE 1 MG TAB PO SCH (09:55)
--- NOTE | 2021-06-05 13:51 | MHIPNPDOC ---
[facility] Progress Note Progress Note DATE OF SERVICE: 06/05/21 HISTORY: Patient is a 35 -year-old , female, who has a history of substance-induced psychosis, schizophrenia, polysubstance abuse, and multiple suicide attempts by overdose self presents, patient had called 911 stating that someone had injected her with battery acid, has stated PSA that she was here pretty much for an overdose so need a heart floor, patient endorsed using Rock yesterday. Was recently discharged May 25, 2021 in context of positive tox screen for amphetamines, on this occasion toxicology screen is negative. Patient appears disorganized, is sitting in bed and talking about devices on her. Had a repeat EKG which was within normal limits. Interval: Patient continues to be disorganized in context of substance abuse, reports Abilify does not appear to be helpful with her paranoid that people are coming after her trajectory with things in the evenings, agreeable to starting Haldol 5 mg nightly and discontinue Abilify. Patient reports history of acute dystonias on Haldol is agreeable to as needed Cogentin. VITAL SIGNS: See below. NEW TEST RESULTS: None CURRENT MEDICATIONS: See below. MENTAL STATUS EXAMINATION: Patient is a 35-year old female, who is in no acute distress, Speech: Is somewhat slowed, decreased amount, spontaneous Language skills are fair Thought processes including: linear, logical Thought content: denies SI, intent or plan Abstract reasoning, and computation: improved Description of associations: intact Description of abnormal or psychotic thoughts: denies Judgment: improving Insight: improving Orientation: x4 Recent and remote memory: fair Attention span and concentration: improving Language: south su[place]ese Fund of knowledge: average Mood: "I do not know" Affect: Withdrawn, disorganized, labile, anxious DIAGNOSES: Schizoaffective disorder per history Substance-induced psychotic disorder, Hallucinogen use disorder,"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 Patient requires continued stay in context of likely drug-induced psychotic symptoms, this is despite toxicology screen on admission being negative, had previously reported using Rock and cannabis. Labs previously ordered inconsistent for delirium, patient has been complaining of dehydration, reordered CMP and ammonia level as synthetic drugs may increase LFTs. MANAGEMENT PLAN: Switch Abilify for Haldol 5 mg nightly TIME SPENT: 20 minutes. Vital Signs Vital Signs Date Time Temp Pulse Resp B/P (MAP) Pulse Ox O2 Delivery O2 Flow Rate FiO2 06/04/21 18:00 96.9 80 16 140/79 (99) 98 Room Air Laboratory Data 24H Labs Laboratory Tests 2 06/04/21 18:14: Anion Gap 4L, Glomerular Filtration Rate > 60.0, Calcium Level 9.2, Total Bilirubin 0.2, Aspartate Amino Transf (AST/SGOT) 27, Alanine Aminotransferase (ALT/SGPT) 33, Alkaline Phosphatase 110, Ammonia 30, Total Protein 8.1, Albumin 3.9, Albumin/Globulin Ratio 0.9L CBC/BMP Laboratory Tests 06/04/21 18:14 Current Medications Current Medications Medications (Trade) Dose Ordered Sig/René Route PRN Reason Start Time Stop Time Status Last Admin Dose Admin Acetaminophen (Tylenol Tab) 650 mg Q6HP PRN PO HEADACHE or MILD DISCOMFORT 06/02/21 00:50 06/03/21 15:29 Al Hydrox/Mg Hydrox/Simethicone (Mylanta) 30 ml Q4HP PRN PO HEARTBURN/INDIGESTION 06/02/21 00:50 Aripiprazole (AbiLIFY) 10 mg DAILY NG 06/03/21 09:00 UNV Aripiprazole (AbiLIFY) 10 mg DAILY PO 06/02/21 09:00 06/05/21 09:48 DC 06/05/21 09:05 Aripiprazole (AbiLIFY) 10 mg DAILY PO 06/03/21 09:00 06/02/21 12:35 DC Atomoxetine HCl (Strattera (Atomoxetine)) 40 mg QAM PO 06/02/21 09:00 06/05/21 09:05 Atomoxetine HCl (Strattera (Atomoxetine)) 60 mg QAM PO 06/02/21 09:00 06/02/21 13:01 DC Atomoxetine HCl (Strattera (Atomoxetine)) 60 mg QAM PO 06/03/21 09:00 UNV Benztropine Mesylate (Cogentin) 1 mg BIDP PO 06/05/21 09:55 06/05/21 10:12 DC Benztropine Mesylate (Cogentin) 1 mg BIDP PRN PO EPS 06/05/21 10:15 Buprenorphine/ Naloxone (Suboxone 2/ 0.5mg) 1 tab QAM 06/02/21 09:00 06/05/21 09:15 Buprenorphine/ Naloxone (Suboxone 2/ 0.5mg) 1 tab QHS 06/02/21 21:00 06/02/21 13:00 DC Buprenorphine/ Naloxone (Suboxone 2/ 0.5mg) 1 tab QHS 06/02/21 21:00 UNV Buprenorphine/ Naloxone (Suboxone 8/2mg) 1 tab 1300,2000 06/02/21 13:00 06/02/21 20:01 DC 06/02/21 20:39 Buprenorphine/ Naloxone (Suboxone 8/2mg) 1 tab BID@0900,1600 06/02/21 16:00 06/02/21 13:05 DC Buprenorphine/ Naloxone (Suboxone 8/2mg) 1 tab BID@0900,1600 06/03/21 09:00 06/05/21 09:15 Buprenorphine/ Naloxone (Suboxone 8/2mg) 1 tab QAM 06/03/21 09:00 UNV Buprenorphine/ Naloxone (Suboxone 8/2mg) 1 tab QHS 06/02/21 21:00 UNV Buspirone HCl (Buspar) 15 mg TID PO 06/02/21 16:00 06/02/21 11:56 DC Buspirone HCl (Buspar) 15 mg TID PO 06/02/21 16:00 06/05/21 09:05 Cetylpyridinium Chloride (Cepacol) 1 ye Q2HP PRN PO DRY MOUTH, COUGH 06/04/21 16:40 Docusate Sodium (Colace) 100 mg DAILY PO 06/02/21 09:00 06/05/21 09:05 Docusate Sodium (Colace) 100 mg DAILY PO 06/03/21 09:00 06/02/21 11:56 DC Docusate Sodium (Colace) 100 mg DAILY PO 06/03/21 09:00 UNV Fluoxetine HCl (PROzac) 40 mg DAILY PO 06/03/21 09:00 06/02/21 11:56 DC Fluoxetine HCl (PROzac) 40 mg QAM PO 06/02/21 09:00 06/05/21 09:05 Folic Acid (Folic Acid) 1 mg DAILY PO 06/03/21 09:00 06/05/21 09:05 Gabapentin (Neurontin) 600 mg TID PO 06/02/21 16:00 06/05/21 09:05 Gabapentin (Neurontin) 600 mg TID PO 06/02/21 16:00 UNV Haloperidol (Haldol) 5 mg Q4HP PRN PO ANXIETY/AGITATION 06/04/21 15:55 Haloperidol (Haldol) 5 mg QHS PO 06/05/21 21:00 Home Med (Home Med List Complete!) ASDIRECTED XX 06/02/21 00:45 06/02/21 00:45 DC Lidocaine/ Diphenhydr/Alum/ Mg/Simeth (Magic Mouthwash) 5ML Q4HP PRN SS ORAL PAIN/DISCOMFORT 06/03/21 14:30 06/04/21 16:20 Lorazepam (Ativan) 0.5 mg ASDIRECTED PRN PO SEE PROTOCOL 06/03/21 14:35 06/04/21 12:30 DC Lorazepam (Ativan) 2 mg ASDIRECTED PRN PO SEE PROTOCOL 06/03/21 02:35 06/03/21 14:34 DC 06/03/21 04:28 Lorazepam (Ativan) 2 mg Q6HP PRN PO ANXIETY/AGITATION 06/04/21 15:55 Magnesium Hydroxide (Milk Of Magnesia) 30 ml DAILYPRN PRN PO CONSTIPATION 06/02/21 00:50 Mirtazapine (Remeron) 15 mg QHS PO 06/02/21 21:00 06/02/21 11:56 DC Mirtazapine (Remeron) 15 mg QHS PO 06/02/21 21:00 06/04/21 20:15 Multivitamins (Theragram-M) 1 tab DAILY PO 06/03/21 09:00 06/05/21 09:05 Mupirocin (Bactroban 2% Ointment) 1 dose BID EXT 06/02/21 21:00 06/02/21 11:59 DC Mupirocin (Bactroban 2% Ointment) apply to R wrist so... BID TOP 06/03/21 21:00 06/05/21 09:07 Nicotine (Nicoderm Cq 21mg) 1 patch DAILYPRN PRN TD NICOTINE WITHDRAWAL 06/02/21 11:30 06/05/21 09:14 Olanzapine (ZyPREXA ZYDIS) 5 mg Q2HP PRN PO ANXIETY/AGITATION 06/02/21 00:50 06/04/21 15:58 DC 06/04/21 15:13 Oxybutynin Chloride (Ditropan) 5 mg BID PO 06/02/21 09:00 06/05/21 09:06 Oxybutynin Chloride (Ditropan) 5 mg BID PO 06/02/21 21:00 06/02/21 11:56 DC Thiamine HCl (Thiamine HCl) 100 mg BID PO 06/02/21 21:00 06/05/21 09:01 DC 06/05/21 09:07 Topiramate (TopAMAX) 100 mg DAILY PO 06/02/21 09:00 06/05/21 09:07 Topiramate (TopAMAX) 100 mg DAILY PO 06/03/21 09:00 06/02/21 11:56 DC Trazodone HCl (Desyrel) 50 mg QHS PRN PO INSOMNIA 06/02/21 11:50 06/02/21 11:56 DC Trazodone HCl (Desyrel) 50 mg QHSP PRN PO INSOMNIA 06/02/21 00:50 06/03/21 20:02 Trazodone HCl (Desyrel) 50 mg QHSP PRN PO INSOMNIA 06/02/21 12:05 UNV Allergies Coded Allergies: No Known Allergies (Verified , 06/02/20) BRANDI ESTES MD Jun 05, 2021 13:51
[2021-06-05 19:11] VITALS: BP 88/56
[2021-06-05] MEDS: MIRTAZAPINE 15 MG TAB PO SCH (22:45)
[2021-06-05] MEDS: haloperidoL 5 MG TAB PO SCH (22:45)
[2021-06-06 06:33] VITALS: BP 124/73
[2021-06-06] MEDS: MULTIVITAMINS/MINERALS THERAP 1 TAB PO SCH (09:09)
[2021-06-06] MEDS: busPIRone 5 MG TAB PO SCH ×3 (09:10→20:25)
[2021-06-06] MEDS: FLUoxetine 20 MG CAP PO SCH (09:10)
[2021-06-06] MEDS: FOLIC ACID 1 MG TAB PO SCH (09:10)
[2021-06-06] MEDS: oxyBUTYnin 5 MG TAB PO SCH ×2 (09:10→20:25)
[2021-06-06] MEDS: TOPIRAMATE (TopAMAX) 100 MG TAB PO SCH (09:10)
[2021-06-06] MEDS: ATOMOXETINE HCL 40 MG CAP (STRATTERA) PO SCH (09:10)
[2021-06-06] MEDS: DOCUSATE SODIUM 100MG CAPSULE PO SCH (09:10)
[2021-06-06] MEDS: GABAPENTIN 300 MG CAP PO SCH ×3 (09:10→20:25)
[2021-06-06] MEDS: MUPIROCIN 2% OINT 22 GM TUBE TOP SCH ×2 (09:11→20:27)
[2021-06-06] MEDS: NICOTINE 21MG/24HR 1 EA TRANSDERMAL TD PRN (09:11)
[2021-06-06] MEDS: BUPRENORPHINE/NALOXONE 2-0.5MG SUBLINGUAL TABLET(SUBOXONE) SL SCH (09:15)
[2021-06-06] MEDS: BUPRENORPHINE/NALOXONE 8-2MG SUBLINGUAL TABLET(SUBOXONE) SL SCH ×2 (09:16→16:22)
[2021-06-06] MEDS: haloperidoL 5 MG TAB PO PRN (11:13)
[2021-06-06] MEDS: BENZTROPINE 1 MG TAB PO PRN ×2 (11:14→20:25)
--- NOTE | 2021-06-06 18:24 | MHIPN ---
[facility] PROGRESS NOTE DATE: 06/06/2021 The patient today states, "I'm doing all right." She appears to be confused and guarded. She says she did not sleep much last night. MENTAL STATUS EXAMINATION: She is alert and oriented times three. Responds with a simple one or two-word answer that appears to be appropriate. There is no formal thought disorder noted. She says her mood is "all right." Affect flat. She is not psychotic, suicidal, homicidal. Concentration is fair. Insight and judgment poor. DIAGNOSES: 1. Schizoaffective disorder by history. 2. Substance-induced psychotic disorder. 3. Hallucinogen use disorder, Sylvie versus synthetic cannabis. 5. Methamphetamine use disorder, severe. 6. Heroin use disorder, severe. 7. Tobacco use disorder, severe. TREATMENT PLAN: At this point, we will continue to monitor the patient for continued resolution of paranoid thoughts and resolution of suicidal thoughts, and we will titrate medication as indicated.
[2021-06-06 18:36] VITALS: BP 132/86
[2021-06-06] MEDS: haloperidoL 5 MG TAB PO SCH (20:25)
[2021-06-06] MEDS: MIRTAZAPINE 15 MG TAB PO SCH (20:25)
[2021-06-07 06:50] VITALS: BP 116/77
[2021-06-07] MEDS: GABAPENTIN 300 MG CAP PO SCH ×3 (09:55→21:23)
[2021-06-07] MEDS: oxyBUTYnin 5 MG TAB PO SCH ×2 (09:55→21:23)
[2021-06-07] MEDS: MULTIVITAMINS/MINERALS THERAP 1 TAB PO SCH (09:55)
[2021-06-07] MEDS: busPIRone 5 MG TAB PO SCH ×3 (09:55→21:23)
[2021-06-07] MEDS: FOLIC ACID 1 MG TAB PO SCH (09:55)
[2021-06-07] MEDS: DOCUSATE SODIUM 100MG CAPSULE PO SCH (09:55)
[2021-06-07] MEDS: FLUoxetine 20 MG CAP PO SCH (09:55)
[2021-06-07] MEDS: ATOMOXETINE HCL 40 MG CAP (STRATTERA) PO SCH (09:55)
[2021-06-07] MEDS: MUPIROCIN 2% OINT 22 GM TUBE TOP SCH ×2 (09:56→21:24)
[2021-06-07] MEDS: TOPIRAMATE (TopAMAX) 100 MG TAB PO SCH (09:56)
[2021-06-07] MEDS: BUPRENORPHINE/NALOXONE 8-2MG SUBLINGUAL TABLET(SUBOXONE) SL SCH ×2 (10:04→15:55)
[2021-06-07] MEDS: NICOTINE 21MG/24HR 1 EA TRANSDERMAL TD PRN (10:04)
[2021-06-07] MEDS: BUPRENORPHINE/NALOXONE 2-0.5MG SUBLINGUAL TABLET(SUBOXONE) SL SCH (10:04)
[2021-06-07] MEDS: haloperidoL 5 MG TAB PO PRN ×2 (12:40→17:19)
[2021-06-07 18:17] VITALS: BP 124/86
[2021-06-07] MEDS: BENZTROPINE 1 MG TAB PO PRN (21:23)
[2021-06-07] MEDS: MIRTAZAPINE 15 MG TAB PO SCH (21:23)
[2021-06-07] MEDS: haloperidoL 5 MG TAB PO SCH (21:23)
[2021-06-08 06:26] VITALS: BP 90/57
[2021-06-08] MEDS: MUPIROCIN 2% OINT 22 GM TUBE TOP SCH ×2 (08:31→21:55)
[2021-06-08] MEDS: FOLIC ACID 1 MG TAB PO SCH (08:32)
[2021-06-08] MEDS: ATOMOXETINE HCL 40 MG CAP (STRATTERA) PO SCH (08:32)
[2021-06-08] MEDS: FLUoxetine 20 MG CAP PO SCH (08:32)
[2021-06-08] MEDS: TOPIRAMATE (TopAMAX) 100 MG TAB PO SCH (08:32)
[2021-06-08] MEDS: MULTIVITAMINS/MINERALS THERAP 1 TAB PO SCH (08:32)
[2021-06-08] MEDS: oxyBUTYnin 5 MG TAB PO SCH ×2 (08:33→21:55)
[2021-06-08] MEDS: DOCUSATE SODIUM 100MG CAPSULE PO SCH (08:33)
[2021-06-08] MEDS: GABAPENTIN 300 MG CAP PO SCH ×3 (08:33→21:55)
[2021-06-08] MEDS: busPIRone 5 MG TAB PO SCH ×3 (08:33→21:55)
[2021-06-08] MEDS: BUPRENORPHINE/NALOXONE 2-0.5MG SUBLINGUAL TABLET(SUBOXONE) SL SCH (09:07)
[2021-06-08] MEDS: BUPRENORPHINE/NALOXONE 8-2MG SUBLINGUAL TABLET(SUBOXONE) SL SCH ×2 (09:07→15:51)
--- NOTE | 2021-06-08 09:24 | MHIPNPDOC ---
[facility] Progress Note Progress Note DATE OF SERVICE: 06/08/21 HISTORY: Patient is a 35 -year-old , female, who has a history of substance-induced psychosis, schizophrenia, polysubstance abuse, and multiple suicide attempts by overdose self presents, patient had called 911 stating that someone had injected her with battery acid, has stated PSA that she was here pretty much for an overdose so need a heart floor, patient endorsed using Rock yesterday. Was recently discharged May 25, 2021 in context of positive tox screen for amphetamines, on this occasion toxicology screen is negative. Patient appears disorganized, is sitting in bed and talking about devices on her. Had a repeat EKG which was within normal limits. Interval: Patient reports some improvement with Haldol, but states she still feels paranoid that people are out to get her, per nursing notes was isolative to room over the weekend and had not been attending groups, patient states due to past history of noncompliance may be interested in the Haldol Decanoate IM PINZON, currently believes that she would benefit from increasing her dose of Haldol to 5 mg twice daily, patient aware of common and rare side effects including EPS and NMS other common and rare side effects. VITAL SIGNS: See below. NEW TEST RESULTS: None CURRENT MEDICATIONS: See below. MENTAL STATUS EXAMINATION: Patient is a 35-year old female, who is in no acute distress, Speech: Is somewhat slowed, decreased amount, spontaneous Language skills are fair Thought processes including: linear, logical Thought content: denies SI, intent or plan Abstract reasoning, and computation: improved Description of associations: intact Description of abnormal or psychotic thoughts: denies Judgment: fair Insight: improving Orientation: x4 Recent and remote memory: fair Attention span and concentration: improving Language: burkinan Fund of knowledge: average Mood: "6-7/10" Affect: Withdrawn, mild paranoia, less disorganized, blunted DIAGNOSES: Schizoaffective disorder per history Substance-induced psychotic disorder, Hallucinogen use disorder,"rock" vs synthetic cannabis Methamphetamine use disorder, severe Heroin use disorder, severe Tobacco use disorder ASSESSMENT: Patient continues to endorse paranoia, however reports has not had any hallucinations, symptoms improving, agrees to continue Haldol increase dose to 5 mg p.o. twice daily, as word of, rare side effects, does not report any acute physical symptoms which are concerning. Needs extended stay to stabilize acute psychotic symptoms. MANAGEMENT PLAN: Switch Haldol to 5 mg p.o. twice daily, possibility to start Haldol decanoate patient continues to tolerate medications well without side effects. TIME SPENT: 25 minutes. Vital Signs Vital Signs Date Time Temp Pulse Resp B/P (MAP) Pulse Ox O2 Delivery O2 Flow Rate FiO2 06/08/21 06:26 98.3 94 16 90/57 (68) 98 Room Air Current Medications Current Medications Medications (Trade) Dose Ordered Sig/René Route PRN Reason Start Time Stop Time Status Last Admin Dose Admin Acetaminophen (Tylenol Tab) 650 mg Q6HP PRN PO HEADACHE or MILD DISCOMFORT 06/02/21 00:50 06/03/21 15:29 Al Hydrox/Mg Hydrox/Simethicone (Mylanta) 30 ml Q4HP PRN PO HEARTBURN/INDIGESTION 06/02/21 00:50 Aripiprazole (AbiLIFY) 10 mg DAILY NG 06/03/21 09:00 UNV Aripiprazole (AbiLIFY) 10 mg DAILY PO 06/02/21 09:00 06/05/21 09:48 DC 06/05/21 09:05 Aripiprazole (AbiLIFY) 10 mg DAILY PO 06/03/21 09:00 06/02/21 12:35 DC Atomoxetine HCl (Strattera (Atomoxetine)) 40 mg QAM PO 06/02/21 09:00 06/08/21 08:32 Atomoxetine HCl (Strattera (Atomoxetine)) 60 mg QAM PO 06/02/21 09:00 06/02/21 13:01 DC Atomoxetine HCl (Strattera (Atomoxetine)) 60 mg QAM PO 06/03/21 09:00 UNV Benztropine Mesylate (Cogentin) 1 mg BIDP PO 06/05/21 09:55 06/05/21 10:12 DC Benztropine Mesylate (Cogentin) 1 mg BIDP PRN PO EPS 06/05/21 10:15 06/07/21 21:23 Buprenorphine/ Naloxone (Suboxone 2/ 0.5mg) 1 tab QAM SL 06/02/21 09:00 06/08/21 09:07 Buprenorphine/ Naloxone (Suboxone 2/ 0.5mg) 1 tab QHS SL 06/02/21 21:00 06/02/21 13:00 DC Buprenorphine/ Naloxone (Suboxone 2/ 0.5mg) 1 tab QHS 06/02/21 21:00 UNV Buprenorphine/ Naloxone (Suboxone 8/2mg) 1 tab 1300,2000 06/02/21 13:00 06/02/21 20:01 DC 06/02/21 20:39 Buprenorphine/ Naloxone (Suboxone 8/2mg) 1 tab BID@0900,1600 06/02/21 16:00 06/02/21 13:05 DC Buprenorphine/ Naloxone (Suboxone 8/2mg) 1 tab BID@0900,1600 06/03/21 09:00 06/08/21 09:07 Buprenorphine/ Naloxone (Suboxone 8/2mg) 1 tab QAM 06/03/21 09:00 UNV Buprenorphine/ Naloxone (Suboxone 8/2mg) 1 tab QHS 06/02/21 21:00 UNV Buspirone HCl (Buspar) 15 mg TID PO 06/02/21 16:00 06/02/21 11:56 DC Buspirone HCl (Buspar) 15 mg TID PO 06/02/21 16:00 06/08/21 08:33 Cetylpyridinium Chloride (Cepacol) 1 ye Q2HP PRN PO DRY MOUTH, COUGH 06/04/21 16:40 Docusate Sodium (Colace) 100 mg DAILY PO 06/02/21 09:00 06/08/21 08:33 Docusate Sodium (Colace) 100 mg DAILY PO 06/03/21 09:00 06/02/21 11:56 DC Docusate Sodium (Colace) 100 mg DAILY PO 06/03/21 09:00 UNV Fluoxetine HCl (PROzac) 40 mg DAILY PO 06/03/21 09:00 06/02/21 11:56 DC Fluoxetine HCl (PROzac) 40 mg QAM PO 06/02/21 09:00 06/08/21 08:32 Folic Acid (Folic Acid) 1 mg DAILY PO 06/03/21 09:00 06/08/21 08:32 Gabapentin (Neurontin) 600 mg TID PO 06/02/21 16:00 06/08/21 08:33 Gabapentin (Neurontin) 600 mg TID PO 06/02/21 16:00 UNV Haloperidol (Haldol) 5 mg Q4HP PRN PO ANXIETY/AGITATION 06/04/21 15:55 06/07/21 17:19 Haloperidol (Haldol) 5 mg QHS PO 06/05/21 21:00 06/07/21 21:23 Home Med (Home Med List Complete!) ASDIRECTED XX 06/02/21 00:45 06/02/21 00:45 DC Lidocaine/ Diphenhydr/Alum/ Mg/Simeth (Magic Mouthwash) 5ML Q4HP PRN SS ORAL PAIN/DISCOMFORT 06/03/21 14:30 06/04/21 16:20 Lorazepam (Ativan) 0.5 mg ASDIRECTED PRN PO SEE PROTOCOL 06/03/21 14:35 06/04/21 12:30 DC Lorazepam (Ativan) 2 mg ASDIRECTED PRN PO SEE PROTOCOL 06/03/21 02:35 06/03/21 14:34 DC 06/03/21 04:28 Lorazepam (Ativan) 2 mg Q6HP PRN PO ANXIETY/AGITATION 06/04/21 15:55 Magnesium Hydroxide (Milk Of Magnesia) 30 ml DAILYPRN PRN PO CONSTIPATION 06/02/21 00:50 Mirtazapine (Remeron) 15 mg QHS PO 06/02/21 21:00 06/02/21 11:56 DC Mirtazapine (Remeron) 15 mg QHS PO 06/02/21 21:00 06/07/21 21:23 Multivitamins (Theragram-M) 1 tab DAILY PO 06/03/21 09:00 06/08/21 08:32 Mupirocin (Bactroban 2% Ointment) 1 dose BID EXT 06/02/21 21:00 06/02/21 11:59 DC Mupirocin (Bactroban 2% Ointment) apply to R wrist so... BID TOP 06/03/21 21:00 06/08/21 08:31 Nicotine (Nicoderm Cq 21mg) 1 patch DAILYPRN PRN TD NICOTINE WITHDRAWAL 06/02/21 11:30 06/07/21 10:04 Olanzapine (ZyPREXA ZYDIS) 5 mg Q2HP PRN PO ANXIETY/AGITATION 06/02/21 00:50 06/04/21 15:58 DC 06/04/21 15:13 Oxybutynin Chloride (Ditropan) 5 mg BID PO 06/02/21 09:00 06/08/21 08:33 Oxybutynin Chloride (Ditropan) 5 mg BID PO 06/02/21 21:00 06/02/21 11:56 DC Thiamine HCl (Thiamine HCl) 100 mg BID PO 06/02/21 21:00 06/05/21 09:01 DC 06/05/21 09:07 Topiramate (TopAMAX) 100 mg DAILY PO 06/02/21 09:00 06/08/21 08:32 Topiramate (TopAMAX) 100 mg DAILY PO 06/03/21 09:00 06/02/21 11:56 DC Trazodone HCl (Desyrel) 50 mg QHS PRN PO INSOMNIA 06/02/21 11:50 06/02/21 11:56 DC Trazodone HCl (Desyrel) 50 mg QHSP PRN PO INSOMNIA 06/02/21 00:50 06/03/21 20:02 Trazodone HCl (Desyrel) 50 mg QHSP PRN PO INSOMNIA 06/02/21 12:05 UNV Allergies Coded Allergies: No Known Allergies (Verified , 06/02/20) BRANDI ESTES MD Jun 08, 2021 09:24
[2021-06-08] MEDS: NICOTINE 21MG/24HR 1 EA TRANSDERMAL TD PRN (09:50)
[2021-06-08] MEDS: haloperidoL 5 MG TAB PO SCH ×2 (09:50→21:55)
[2021-06-08] MEDS: haloperidoL 5 MG TAB PO PRN (14:49)
[2021-06-08 16:56] VITALS: BP 126/80
[2021-06-09] MEDS ORDERED: HALOPERIDOL DECANOATE 100 MG/ML VIAL (J1631) IM SCH (09:00)
[2021-06-09] MEDS: MUPIROCIN 2% OINT 22 GM TUBE TOP SCH ×2 (09:23→22:03)
[2021-06-09] MEDS: busPIRone 5 MG TAB PO SCH ×3 (09:24→22:03)
[2021-06-09] MEDS: BUPRENORPHINE/NALOXONE 2-0.5MG SUBLINGUAL TABLET(SUBOXONE) SL SCH (09:24)
[2021-06-09] MEDS: ATOMOXETINE HCL 40 MG CAP (STRATTERA) PO SCH (09:24)
[2021-06-09] MEDS: BUPRENORPHINE/NALOXONE 8-2MG SUBLINGUAL TABLET(SUBOXONE) SL SCH ×2 (09:24→16:02)
[2021-06-09] MEDS: MULTIVITAMINS/MINERALS THERAP 1 TAB PO SCH (09:24)
[2021-06-09] MEDS: haloperidoL 5 MG TAB PO SCH ×2 (09:24→22:04)
[2021-06-09] MEDS: FOLIC ACID 1 MG TAB PO SCH (09:24)
[2021-06-09] MEDS: NICOTINE 21MG/24HR 1 EA TRANSDERMAL TD PRN (09:24)
[2021-06-09] MEDS: GABAPENTIN 300 MG CAP PO SCH ×3 (09:24→22:03)
[2021-06-09] MEDS: DOCUSATE SODIUM 100MG CAPSULE PO SCH (09:25)
[2021-06-09] MEDS: oxyBUTYnin 5 MG TAB PO SCH ×2 (09:25→22:04)
[2021-06-09] MEDS: TOPIRAMATE (TopAMAX) 100 MG TAB PO SCH (09:25)
[2021-06-09] MEDS: FLUoxetine 20 MG CAP PO SCH (09:25)
[2021-06-09] MEDS: NICOTINE POLACRILEX 2 MG GUM PO PRN ×2 (10:23→19:02)
--- NOTE | 2021-06-09 10:35 | MHIPNPDOC ---
[facility] Progress Note Progress Note DATE OF SERVICE: 06/09/21 HISTORY: Patient is a 35 -year-old , female, who has a history of substance-induced psychosis, schizophrenia, polysubstance abuse, and multiple suicide attempts by overdose self presents, patient had called 911 stating that someone had injected her with battery acid, has stated PSA that she was here pretty much for an overdose so need a heart floor, patient endorsed using Rock yesterday. Was recently discharged May 25, 2021 in context of positive tox screen for amphetamines, on this occasion toxicology screen is negative. Patient appears disorganized, is sitting in bed and talking about devices on her. Had a repeat EKG which was within normal limits. Interval: Patient agreeable to receiving Haldol decanoate IM PINZON 100 mg, patient aware, number side effects, has Cogentin for possible EPS, has denied EPS, allergy or NMS symptoms on Haldol oral medication but feels the medication has not been adequate to control symptoms of paranoia that she experiences in the evenings. VITAL SIGNS: See below. NEW TEST RESULTS: None CURRENT MEDICATIONS: See below. MENTAL STATUS EXAMINATION: Patient is a 35-year old female, who is in no acute distress, Speech: Is somewhat slowed, decreased amount, spontaneous Language skills are fair Thought processes including: linear, logical Thought content: denies SI, intent or plan Abstract reasoning, and computation: improved Description of associations: intact Description of abnormal or psychotic thoughts: denies Judgment: fair Insight: improving Orientation: x4 Recent and remote memory: fair Attention span and concentration: improving Language: albanian Fund of knowledge: average Mood: "same" Affect: Continues to be less internally preoccupied, less disorganized, reported last night was paranoid feeling people were after her DIAGNOSES: Schizoaffective disorder per history Substance-induced psychotic disorder, Hallucinogen use disorder,"rock" vs synthetic cannabis Methamphetamine use disorder, severe Heroin use disorder, severe Tobacco use disorder ASSESSMENT: Today aims scoring was 0 on interview, reports continues to have paranoia in the evenings primarily during some portions of the day, reports auditory hallucinations in the evenings, agreeable to starting Haldol decannulate 100 mg IM PINZON, made aware of common and rare side effects. MANAGEMENT PLAN: Haldol decanoate 100 mg IM PINZON will be given 06/09/21, patient continues to tolerate oral medications well without side effects, has Cogentin for EPS. TIME SPENT: 20 minutes. Vital Signs Vital Signs Date Time Temp Pulse Resp B/P (MAP) Pulse Ox O2 Delivery O2 Flow Rate FiO2 06/08/21 16:56 98.0 102 16 126/80 (95) 98 Room Air Current Medications Current Medications Medications (Trade) Dose Ordered Sig/René Route PRN Reason Start Time Stop Time Status Last Admin Dose Admin Acetaminophen (Tylenol Tab) 650 mg Q6HP PRN PO HEADACHE or MILD DISCOMFORT 06/02/21 00:50 06/03/21 15:29 Al Hydrox/Mg Hydrox/Simethicone (Mylanta) 30 ml Q4HP PRN PO HEARTBURN/INDIGESTION 06/02/21 00:50 Aripiprazole (AbiLIFY) 10 mg DAILY NG 06/03/21 09:00 UNV Aripiprazole (AbiLIFY) 10 mg DAILY PO 06/02/21 09:00 06/05/21 09:48 DC 06/05/21 09:05 Aripiprazole (AbiLIFY) 10 mg DAILY PO 06/03/21 09:00 06/02/21 12:35 DC Atomoxetine HCl (Strattera (Atomoxetine)) 40 mg QAM PO 06/02/21 09:00 06/09/21 09:24 Atomoxetine HCl (Strattera (Atomoxetine)) 60 mg QAM PO 06/02/21 09:00 06/02/21 13:01 DC Atomoxetine HCl (Strattera (Atomoxetine)) 60 mg QAM PO 06/03/21 09:00 UNV Benztropine Mesylate (Cogentin) 1 mg BIDP PO 06/05/21 09:55 06/05/21 10:12 DC Benztropine Mesylate (Cogentin) 1 mg BIDP PRN PO EPS 06/05/21 10:15 06/07/21 21:23 Buprenorphine/ Naloxone (Suboxone 2/ 0.5mg) 1 tab QAM SL 06/02/21 09:00 06/09/21 09:24 Buprenorphine/ Naloxone (Suboxone 2/ 0.5mg) 1 tab QHS SL 06/02/21 21:00 06/02/21 13:00 DC Buprenorphine/ Naloxone (Suboxone 2/ 0.5mg) 1 tab QHS SL 06/02/21 21:00 UNV Buprenorphine/ Naloxone (Suboxone 8/2mg) 1 tab 1300,2000 SL 06/02/21 13:00 06/02/21 20:01 DC 06/02/21 20:39 Buprenorphine/ Naloxone (Suboxone 8/2mg) 1 tab BID@0900,1600 SL 06/02/21 16:00 06/02/21 13:05 DC Buprenorphine/ Naloxone (Suboxone 8/2mg) 1 tab BID@0900,1600 SL 06/03/21 09:00 06/09/21 09:24 Buprenorphine/ Naloxone (Suboxone 8/2mg) 1 tab QAM SL 06/03/21 09:00 UNV Buprenorphine/ Naloxone (Suboxone 8/2mg) 1 tab QHS SL 06/02/21 21:00 UNV Buspirone HCl (Buspar) 15 mg TID PO 06/02/21 16:00 06/02/21 11:56 DC Buspirone HCl (Buspar) 15 mg TID PO 06/02/21 16:00 06/09/21 09:24 Cetylpyridinium Chloride (Cepacol) 1 ye Q2HP PRN PO DRY MOUTH, COUGH 06/04/21 16:40 Docusate Sodium (Colace) 100 mg DAILY PO 06/02/21 09:00 06/09/21 09:25 Docusate Sodium (Colace) 100 mg DAILY PO 06/03/21 09:00 06/02/21 11:56 DC Docusate Sodium (Colace) 100 mg DAILY PO 06/03/21 09:00 UNV Fluoxetine HCl (PROzac) 40 mg DAILY PO 06/03/21 09:00 06/02/21 11:56 DC Fluoxetine HCl (PROzac) 40 mg QAM PO 06/02/21 09:00 06/09/21 09:25 Folic Acid (Folic Acid) 1 mg DAILY PO 06/03/21 09:00 06/09/21 09:24 Gabapentin (Neurontin) 600 mg TID PO 06/02/21 16:00 06/09/21 09:24 Gabapentin (Neurontin) 600 mg TID PO 06/02/21 16:00 UNV Haloperidol (Haldol) 5 mg BID PO 06/08/21 09:00 06/09/21 09:24 Haloperidol (Haldol) 5 mg Q4HP PRN PO ANXIETY/AGITATION 06/04/21 15:55 06/08/21 14:49 Haloperidol (Haldol) 5 mg QHS PO 06/05/21 21:00 06/08/21 09:15 DC 06/07/21 21:23 Haloperidol Decanoate (Haldol Decanoate) 100 mg Q28D IM 06/09/21 09:00 06/09/21 10:23 Home Med (Home Med List Complete!) ASDIRECTED XX 06/02/21 00:45 06/02/21 00:45 DC Lidocaine/ Diphenhydr/Alum/ Mg/Simeth (Magic Mouthwash) 5ML Q4HP PRN SS ORAL PAIN/DISCOMFORT 06/03/21 14:30 06/04/21 16:20 Lorazepam (Ativan) 0.5 mg ASDIRECTED PRN PO SEE PROTOCOL 06/03/21 14:35 06/04/21 12:30 DC Lorazepam (Ativan) 2 mg ASDIRECTED PRN PO SEE PROTOCOL 06/03/21 02:35 06/03/21 14:34 DC 06/03/21 04:28 Lorazepam (Ativan) 2 mg Q6HP PRN PO ANXIETY/AGITATION 06/04/21 15:55 Magnesium Hydroxide (Milk Of Magnesia) 30 ml DAILYPRN PRN PO CONSTIPATION 06/02/21 00:50 Mirtazapine (Remeron) 15 mg QHS PO 06/02/21 21:00 06/02/21 11:56 DC Mirtazapine (Remeron) 15 mg QHS PO 06/02/21 21:00 06/08/21 09:15 DC 06/07/21 21:23 Multivitamins (Theragram-M) 1 tab DAILY PO 06/03/21 09:00 06/09/21 09:24 Mupirocin (Bactroban 2% Ointment) 1 dose BID EXT 06/02/21 21:00 06/02/21 11:59 DC Mupirocin (Bactroban 2% Ointment) apply to R wrist so... BID TOP 06/03/21 21:00 06/09/21 09:23 Nicotine (Nicoderm Cq 21mg) 1 patch DAILYPRN PRN TD NICOTINE WITHDRAWAL 06/02/21 11:30 06/09/21 09:24 Nicotine (Nicorette) 2 mg Q4HP PRN PO NICOTINE WITHDRAWAL 06/09/21 09:10 06/09/21 10:23 Olanzapine (ZyPREXA ZYDIS) 5 mg Q2HP PRN PO ANXIETY/AGITATION 06/02/21 00:50 06/04/21 15:58 DC 06/04/21 15:13 Oxybutynin Chloride (Ditropan) 5 mg BID PO 06/02/21 09:00 06/09/21 09:25 Oxybutynin Chloride (Ditropan) 5 mg BID PO 06/02/21 21:00 06/02/21 11:56 DC Thiamine HCl (Thiamine HCl) 100 mg BID PO 06/02/21 21:00 06/05/21 09:01 DC 06/05/21 09:07 Topiramate (TopAMAX) 100 mg DAILY PO 06/02/21 09:00 06/09/21 09:25 Topiramate (TopAMAX) 100 mg DAILY PO 06/03/21 09:00 06/02/21 11:56 DC Trazodone HCl (Desyrel) 50 mg QHS PRN PO INSOMNIA 06/02/21 11:50 06/02/21 11:56 DC Trazodone HCl (Desyrel) 50 mg QHSP PRN PO INSOMNIA 06/02/21 00:50 06/03/21 20:02 Trazodone HCl (Desyrel) 50 mg QHSP PRN PO INSOMNIA 06/02/21 12:05 UNV Allergies Coded Allergies: No Known Allergies (Verified , 06/02/20) BRANDI ESTES MD Jun 09, 2021 10:35
[2021-06-09 16:26] VITALS: BP 117/83
[2021-06-10 06:35] VITALS: BP 98/62
[2021-06-10] MEDS: oxyBUTYnin 5 MG TAB PO SCH (08:50)
[2021-06-10] MEDS: GABAPENTIN 300 MG CAP PO SCH (08:50)
[2021-06-10] MEDS: haloperidoL 5 MG TAB PO SCH (08:50)
[2021-06-10] MEDS: FLUoxetine 20 MG CAP PO SCH (08:50)
[2021-06-10] MEDS: BUPRENORPHINE/NALOXONE 2-0.5MG SUBLINGUAL TABLET(SUBOXONE) SL SCH (08:50)
[2021-06-10] MEDS: FOLIC ACID 1 MG TAB PO SCH (08:50)
[2021-06-10] MEDS: ATOMOXETINE HCL 40 MG CAP (STRATTERA) PO SCH (08:50)
[2021-06-10] MEDS: DOCUSATE SODIUM 100MG CAPSULE PO SCH (08:50)
[2021-06-10] MEDS: BUPRENORPHINE/NALOXONE 8-2MG SUBLINGUAL TABLET(SUBOXONE) SL SCH (08:50)
[2021-06-10] MEDS: MULTIVITAMINS/MINERALS THERAP 1 TAB PO SCH (08:50)
[2021-06-10] MEDS: busPIRone 5 MG TAB PO SCH (08:50)
[2021-06-10] MEDS: TOPIRAMATE (TopAMAX) 100 MG TAB PO SCH (08:50)
[2021-06-10] MEDS: MUPIROCIN 2% OINT 22 GM TUBE TOP SCH (08:51)
[2021-06-10] MEDS ORDERED: FLUO20CA22 PO (10:33)
[2021-06-10] MEDS ORDERED: BUSP15TA47 PO (10:33)
[2021-06-10] MEDS ORDERED: MUPI2OI TOP (10:33)
[2021-06-10] MEDS ORDERED: NICO4GUM MT (10:33)
[2021-06-10] MEDS ORDERED: HALO5TA PO (10:33)
[2021-06-10] MEDS ORDERED: TRAZ1TAB10 PO (10:33)
[2021-06-10] MEDS ORDERED: HALO10AM IM (10:33)
[2021-06-10] MEDS ORDERED: BENZ-52 PO (10:33)
[2021-06-10] MEDS: NICOTINE POLACRILEX 2 MG GUM PO PRN (11:41)
--- NOTE | 2021-06-10 13:03 | MHDSPDOC ---
[facility] Discharge Summary Discharge Summary DATE OF ADMISSION: Jun 02, 2021 at 00:54 DATE OF DISCHARGE: June 10, 2021 Discharge diagnoses: Schizoaffective disorder per history Substance-induced psychotic disorder, Hallucinogen use disorder,("rock" vs synthetic cannabis) Methamphetamine use disorder, severe Heroin use disorder, severe Tobacco use disorder Reason for admission: Patient is a 35 -year-old , female, who has a history of substance- induced psychosis, schizophrenia, polysubstance abuse, and multiple suicide attempts by overdose self presents, patient had called 911 stating that someone had injected her with battery acid, had stated to [facility] that she was here pretty much for an overdose, patient endorsed using "Rock" yesterday. Was recently discharged May 25, 2021 in context of positive tox screen for amphetamines, on this occasion toxicology screen is negative. Patient appears disorganized, is sitting in bed and talking about devices on her. Had a repeat EKG which was within normal limits. Vital signs: See below Consultants involved: See medical H&P by hospitalist Treatment and progress on the unit: Patient was admitted to the [facility] on a 9.39 legal status and was afforded the following treatment modalities: 1. Individual therapy 2. Group therapy 3. Medication management 4. Milieu therapy 5. Safe environment Hospital course: Patient was admitted to the [facility] on a 9.39 legal status. Was medically cleared prior to coming up to the [facility]. Initially was disorganized not fully oriented, states she does not member the days during that time she might have used Rock, then later changed her story that she had used cannabis, this is despite talk screen was negative. Was continued on home medications including BuSpar 50 mg twice daily, atomoxetine, Topamax 100 mg for headaches, fluoxetine 40 mg daily for depression, felt that her Abilify did not help control her symptoms of psychosis including paranoia and hallucinations, so medication was discontinued and she was started on Haldol which was increased to 5 mg p.o. twice daily, responded well to medication with as needed Cogentin and did not have EPS, NMS, or allergy. Was given IM PINZON Haldol decanoate 100 mg on June 09 2021 (next due within 3 days of July 09 2021). Initially patient been reporting psychotic symptoms of people chasing after her and wanting to inject her with different substances, given time on the unit and medications the paranoia and hallucinations subsided. Patient found medications beneficial and tolerated them well. Denies mood anxiety and intrusive thoughts which improved with treatment. Patient attended groups daily during stay. Patient symptoms improved with treatment. On day of discharge patient denied depression, anxiety, insomnia, suicidal or homicidal ideations intent or plan, hallucinations, delusions. Patient was discharged home with follow-up. Patient felt safe for discharge. Was offered continued stay involuntary admission but refused. Patient was educated on substance abuse, refused inpatient rehab. Discharge assessment: On today's interview patient is alert and oriented, dr campoverde appropriately. Hygiene and grooming is well-kept. Smiles on approach and is pleasant and engaged on interview. Denies depression and anxiety. Denies suicidal homicidal ideation, intent or planning. Denies and is not observed with vince or psychotic symptoms of delusions, hallucinations, bizarre thinking, obsessions, paranoia, ruminations, illogical thoughts, flight of ideas or having poor insight or judgment. Patient has normal mentation, declines further hospitalization of voluntary status and meets criteria for discharge today, patient encouraged to return the hospital if symptoms worsen or change and encouraged to call unit if they feel they need provider's questions to be answered or help with medications or care. Patient was future oriented endorse that she will go to outpatient appointments, including [facility]. Mental status: MENTAL STATUS EXAMINATION: Patient is a 35-year old female, who is in no acute distress, Speech: Is somewhat slowed, decreased amount, spontaneous Language skills are fair Thought processes including: linear, logical Thought content: denies SI, intent or plan. Denies homicidal ideation, intent or plan Abstract reasoning, and computation: improved Description of associations: intact Description of abnormal or psychotic thoughts: denies, no longer reports paranoia that people are after, no hallucinations or delusions reported or observed. Judgment: fair Insight: fair Orientation: x4 Recent and remote memory: fair Attention span and concentration: improving Language: tamazight Fund of knowledge: average Mood: "good" Affect: Mildly anxious, stable, mood congruent, appropriate Medications on discharge: see medication reconciliation: CSSRS on discharge: Wish to be : No nonspecific active suicidal thoughts: No lifetime attempts: Per chart review multiple by overdose interrupted attempts: 0 aborted attempts: 0 preparatory acts or behavior: None Taking into consideration safety state, status, safety plan, protective factors, modifiable, non-modifiable risk factors patient is at chronically elevated risk on discharge for suicide according to [facility] suicide evaluation. PLAN/FOLLOWUP ARRANGEMENTS: Follow Up Care Education Label * Mental Health Appt 1 * Mental Health [facility] * Established With This Provider Yes * Therapist SAVANAH * Date Jun 17, 2021 * Time 10:00 * Address of Clinic or Practice [address] [facility] * Follow Up Care Education Label * Medical * Medical Follow Up [facility] * Established With This Provider Yes * Therapist DR. ROCHA * Date Jun 18, 2021 * Time 09:00 * Address of Clinic or Practice [address] [facility] * The amount of time spent in the coordination of care for this patient was approximately 40 minutes. ETOH/Disorder Med Rx ETOH/DRUG DISORDER RX: Offrd @ d/c & pt refused Vital Signs/I&Os Vital Signs Date Time Temp Pulse Resp B/P (MAP) Pulse Ox O2 Delivery O2 Flow Rate FiO2 06/10/21 06:35 98.7 69 14 98/62 (74) 95 Room Air Medications Scheduled Atomoxetine Hydrochloride (Strattera) 60 Mg Capsule, 60 MG PO DAILY, (Reported) Buprenorphine HCl/Naloxone HCl (Suboxone 2 mg-0.5 mg Sl Film) 1 Each Film, 1 S TRIP SL QHS, (Reported) TAKES WITH 8MG FOR 10MG TOTAL AT QHS Buspirone HCl (Buspirone HCl) 15 Mg Tablet, 15 MG PO TID for anxiety, #21 Docusate Sodium (Docusate Sodium) 100 Mg Capsule, 100 MG PO DAILY, (Reported) Fluoxetine Hcl (Fluoxetine HCl) 20 Mg Capsule, 40 MG PO DAILY for mood, #7 Gabapentin (Gabapentin) 600 Mg Tablet, 600 MG PO TID, (Reported) Haloperidol (Haloperidol) 5 Mg Tablet, 5 MG PO BID for psychosis, #14 Haloperidol Decanoate (Haloperidol Decanoate) 100 Mg/1 Ml Vial, 100 MG IM Q28D for psychosis, #1 Mupirocin (Mupirocin) 2 % Oint...g., 1 DOSE EXT BID for 14 Days, (Reported) STARTED ON 05/13/21, APPLY TO WOUND ON RIGHT ARM Mupirocin (Mupirocin) 2 % Oint...g., 0 DOSE TOP BID for infection, #1 apply to arm wound twice daily Oxybutynin Chloride (Oxybutynin Chloride) 5 Mg Tablet, 5 MG PO BID, (Reported) Topiramate (Topiramate) 100 Mg Tablet, 100 MG PO DAILY, (Reported) Scheduled PRN Benztropine Mesylate (Benztropine Mesylate) 1 Mg Tablet, 1 MG PO BIDP PRN for EPS, #14 Nicotine Polacrilex (Nicotine Gum) 4 Mg Gum, 4 MG MT QID PRN for SMOKING CESSATION, #10 Trazodone HCl (Trazodone HCl) 50 Mg Tablet, 50 MG PO QHS PRN for INSOMNIA, #7 Allergies Coded Allergies: No Known Allergies (Verified , 06/02/20) BRANDI ESTES MD Jun 10, 2021 13:03
== END 2021-06-10 12:05 | disposition home or self-care (01) | DRG 750 ==
LOC: M ED 14:06 → M ED INP 06-02 00:49 → UNDOADMIN 06-02 00:49 → M ED INP 06-02 00:54 → M PSY 06-02 00:55 → M ED INP 06-02 02:35
PROVIDERS: ADMIT Psychiatry & Neurology Psychiatry; ATTEND Student in an Organized Health Care Education/Training Program
DX: F25.9 Schizoaffective disorder, unspecified (principal); F15.251 Other stimulant dependence with stimulant-induced psychotic disorder with hallucinations; F11.20 Opioid dependence, uncomplicated; F17.200 Nicotine dependence, unspecified, uncomplicated; F16.151 Hallucinogen abuse with hallucinogen-induced psychotic disorder with hallucinations; Z91.51 Personal history of suicidal behavior; Z20.822 Contact with and (suspected) exposure to COVID-19; Z79.899 Other long term (current) drug therapy; G43.909 Migraine, unspecified, not intractable, without status migrainosus

== ENCOUNTER 2021-06-12 10:06 | Inpatient (IN) | payer OTHER ==
[~2021-06-12] VITALS: Ht 154.9 cm; Wt 55.9 kg
[~2021-06-12 10:06] MED LIST changes: +ABIL1INJ2 IM; +HALO10AM IM; +HALO5TA PO; +MUPI2OI TOP; +TRAZ1TAB10 PO
--- OUTSIDE RECORDS SUMMARY | 2021-06-12 10:15 | CCD ---
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 Interpretation Code Description Data Kassy rce(s) Supporting Document(s) ID Date Data Source [id number] 01/16/2021 02:08:00 PM EDT [facility]. Counselor Progress NotePatient NoteCOUNS LIZA WENT BACK LATER ON IN THE DAY TO CHECK BACK ON PATIENT THECURTAINS WERE OPEN AND IT WAS NICE AND BRIGHT IN THERE, AND PATIENT WASUP. COUNSELOR ASKED HOW SHE WAS DOING AND SHE REPLIED TIRED. SHE ISSLEEPING A LOT DURING THE DAY WHICH THEN IS WHY SHE IS HAVING A HARD TIMESLEEPING AT NIGHT.Dictated on 01/16/21 140 by Cherrie,TriciaTranscribed on 01/16/21 1408 by Cherrie,TriciaSign by Cherrie,Nuzhat on 01/16/21 1413Sign by: Cherrie,Nuzhat Name Value Range Interpretation Code Description Data Kassy rce(s) Supporting Document(s) ID Date Data Source [id number] 01/16/2021 02:04:00 PM EDT [facility]. Counselor Progress NotePatient NoteCOUNS LIZA WENT AND CHECKED IN ON PATIENT THIS MORNING, SHE WAS UP BUTLAYING DOWN. COUSNELOR ASKED HOW SHE WAS DOING SHE SAID SHE WAS VERYTIRED. COUNSELOR ASKED HER WHY, WAS SHE NOT SLEEPING WELL? PATIENTREPLIED THAT SHE WASN'T SLEEPING GOOD AT NIGHT. SO COUNSELOR LEFT TO [place] GET SOME REST.Dictated on 01/16/21 1404 by Cherrie,TriciaTranscribed on 01/16/21 1404 by Cherrie,TriciaSign by Cherrie,Nuzhat on 01/16/21 1408Sign by: Cherrie,Nuzhat Name Value Range Interpretation Code Description Data Kassy rce(s) Supporting Document(s) ID Date Data Source [id number] 01/15/2021 04:16:00 PM EDT [facility] Counselor Progress NotePatient NoteCOUNS ELOR IKE BLAS, MS, CASAC-T, ENTERED THE PATIENT'S ROOM. SHEWAS ASLEEP. COUNSELOR NOTED HER TO SKIN COLOR TO BE PALE AND SHE WASSWEATING AND HER MOUTH WAS OPEN. COUNSELOR CONSULTED WITH ARMANDO GALVAN. SHEREPORTED PATIENT DID NOT SLEEP LAST NIGHT OR EAT YESTERDAY. SHE REPORTEDPATIENT ATE ABOUT 30% OF HER LUNCH AND THEN HAS BEEN ASLEEP SINCE THATTIME.Dictated on 01/15/21 161 by Ike BlasTranscribed on 01/15/21 1616 by Zach Blas by kIe Blas on 01/15/21 1618Sign by: Ike Blas Name Value Range Interpretation Code Description Data Kassy rce(s) Supporting Document(s) ID Date Data Source [id number] 01/15/2021 01:59:00 PM EDT [facility] Counselor Progress NotePatient NoteBETHANIE HUGO [facility], CONFIRMED A 4 W[facility] WA[facility] LIST FOR [facility]PAT[facility]ACILITY [facility].Dictated on 01/15/21 1359 by Ike BlasTranscribed on 01/15/21 1359 by Zach Blas by Ike Blas on 01/15/21 1400Sign by: Ike Blas Name Value Range Interpretation Code Description Data Kassy rce(s) Supporting Document(s) ID Date Data Source [id number] 01/15/2021 01:36:00 PM ED[facility] Counselor Progress NotePatient NoteCONFI RMED BED AT [facility] 01[facility]22[facility] - ADMISSION TIME PENDING.Dictated on 01/15/21 1336 by Ike BlasTranscribed on 01/15/21 1336 by Zach Blas by Ike Blas on 01/15/21 1337Sign by: Ike Blas Name Value Range Interpretation Code Description Data Kassy rce(s) Supporting Document(s) ID Date Data Source [id number] 01/14/2021 03:22:00 PM EDT [facility] Counselor Progress NotePatient NoteCHUYITA DE JESUS HAD WENT TO SEE IF [...] rce(s) Supporting Document(s) ID Date Data Source [id number] 01/14/2021 03:00:00 PM EDT [employer] Counselor Progress NotePatient NoteCHUYITA DE JESUS WENT TO SEE IF PATIENT WAS UP TO DO EVALUATION AND SHE WASSLEEPING.Dictated on 01/14/21 1500 by Cherrie,TriciaTranscribed on 01/14/21 1500 by Cherrie,TriciaSign by Cherrie,Nuzhat on 01/14/21 1501Sign by: Cherrie,Nuzhat Name Value Range Interpretation Code Description Data Kassy e(s) Supporting Document(s) ID Date Data Source [id number] 01/14/2021 01:44:00 PM EDT [facility]. Counselor Progress NotePatient Dominic DE JESUS WENT INTO PATIENTS ROOM AT 12:30 TO DO THE EVALUATION, THEPATIENT WAS SLEEPING SO COUNSELOR HAD LEFT THE PATIENT TO SLEEP.COUNSELOR CAME BACK TO HER OFFICE AND REPORTED PATIENT STATUS TO ALFREDA.NURSING MILK INSPECTOR, SABINE PECK, WOKE THE PATIENT AND REQUESTED [...] rce(s) Supporting Document(s) ID Date Data Source [id number] 01/14/2021 09:26:00 AM EDT [facility]. Counselor Progress NotePatient NoteCOUNS LIZA ALONG WITH HADOOP CONSULTANT WENT INTO PATIENTS ROOM AND ASKED HOW SHE WASDOING. PATIENT RESPONDED SHE WAS DOING OK. COUNSELOR INFORMED PATIENTTHAT SHE WAS HERE IF SHE NEEDED HER TO TALK OR ANYTHING.Dictated on 01/14/21 0926 by Cherrie,TriciaTranscribed on 01/14/21 0926 by Cherrie,TriciaSign by Cherrie,Nuzhat on 01/14/21 0933Sign by: Cherrie,Nuzhat Name Value Range Interpretation Code Description Data Kassy rce(s) Supporting Document(s) ID Date Data Source [id number] 01/13/2021 04:10:[address] [facility] Name Value Range Interpretation Code Description Data Kassy rce(s) Supporting Document(s) SARS-CoV-2 (COVID-19) RNA [Presence] in Respiratory specimen by IRIS with probe detection Negative; No COVID-[address] PCR[address] [facility] This lab was ordered by [facility] and reported by . ID Date Data Source [id number] 12/08/2020 03:19:00 PM EDT [facility]) Name Value Range Interpretation Code Description Data Kassy rce(s) Supporting Document(s) influenza A amplification negative negative Influenza a Amplification [facility]) influenza B amplification negative negative Influenza B Amplification [facility]) RSV amplification negative negative RSV Amplification [facility]) sars covid-19 amplification negative negative Sars Cov id-19 Amplification [place] ([facility]) ID Date Data Source [id number] 12/08/2020 03:19:00 PM EDT [facility] Name Value Range Interpretation Code Description Data Kassy rce(s) Supporting Document(s) SARS coronavirus 2 RNA [Presence] in Res piratory specimen by IRIS with probe detection NEGATIVE [facility] This lab was ordered by [facility] a nd reported by [facility]. ID Date Data Source [id number] 12/08/2020 09:19:00 AM EDT [facility]) Name Value Range Interpretation Code Description Data Kassy rce(s) Supporting Document(s) thyroid stimulating hormone 1.050 uIU/mL 0.358-3.740 Thyroid Stimulating Hormone [facility]) ID Date Data Source [id number] 12/08/2020 09:19:00 AM EDT [facility]) Name Value Range Interpretation Code Description Data Kasys rce(s) Supporting Document(s) acetaminophen level < 2.0 10.0-30.0 Below low normal Acetaminop hen Level [facility]) ID Date Data Source [id number] 12/08/2020 09:19:00 AM EDT [facility]) Name Value Range Interpretation Code Description Data Kassy rce(s) Supporting Document(s) salicylate level 2.7 mg/dL 5.0-30.0 Below low normal Salicylate Le jose [facility]) ID Date Data Source [id number] 12/08/2020 09:19:00 AM EDT [facility]) Name Value Range Interpretation Code Description Data Kassy rce(s) Supporting Document(s) ethyl alcohol (ethanol) < 0.003 0.000-0.010 Ethyl Alcoh ol (Ethanol) [facility]) ID Date Data Source [id number] 12/08/2020 09:19:00 AM EDT [place] ([facility]) Name Value Range Interpretation Code Description Data Kassy rce(s) Supporting Document(s) glucose, fasting 93 mg/dL 70-100 Glucose, Fasting AT [facility] ([facility]) blood urea nitrogen 10 mg/dL 7-18 Blood Urea Nitro gen [facility] ([facility]) creatinine for GFR 0.61 mg/dL 0.55-1.30 Creatinine for GF R [facility] ([facility]) glomerular filtration rate > 60.0 >60 Glomerula r Filtration Rate [place] ([facility]) sodium level 140 mEq/L 136-145 Sodium Level [facility] ([facility]) chloride level 111 mEq/L 98-107 Above high normal Chloride Level [place] ([facility]) potassium serum 4.1 mEq/L 3.5-5.1 Potassium Serum [facility] ([facility]) anion gap 7 mEq/L 8-16 Below low normal Anion Gap [place] ( [facility]) calcium level 9.9 mg/dL 8.5-10.1 Calcium Level [place] ( [facility]) carbon dioxide level 22 mEq/L 21-32 Carbon Dioxide Level [place] ([facility]) ID Date Data Source [id number] 12/08/2020 09:19:00 AM EDT [place] ([facility]) Name Value Range Interpretation Code Description Data Kassy rce(s) Supporting Document(s) AST/SGOT 28 U/L 7-37 AST/SGOT [facility] ([facility]) alkaline phosphatase 90 U/L 45-117 Alkaline Phosph atase [facility] ([facility]) ALT/SGPT 26 U/L 12-78 ALT/SGPT [place] ([facility]) bilirubin,total 0.3 mg/dL 0.2-1.0 Bilirubin,total [facility] ([facility]) bilirubin,direct < 0.1 0.0-0.2 Bilirubin,direct AT [facility] ([facility]) albumin 3.9 gm/dL 3.2-5.2 Albumin [facility] ([facility]) total protein 8.4 gm/dL 6.4-8.2 Above high normal Total Protein A [facility] ([facility]) albumin/globulin ratio 1.2-2.2 Below low normal Albumin /globulin Ratio [facility] ([facility]) ID Date Data Source [id number] 12/08/2020 09:19:00 AM EDT [facility] ([facility]) Name Value Range Interpretation Code Description Data Kassy rce(s) Supporting Document(s) white blood count 9.1 10 4.0-10.0 White Blood Count [facility] ([facility]) red blood count 4.31 10 4.00-5.40 Red Blood Count [facility] ([facility]) hemoglobin 12.8 g/dL 12.0-15.5 Hemoglobin [facility] ([facility]) hematocrit 39.2 % 36.0-47.0 Hematocrit [facility] ([facility]) mean corpuscular volume 91.0 fL 80.0-96.0 Mean Corpusc ular Volume [facility] ([facility]) mean corpuscular hemoglobin 29.7 pg 27.0-33.0 Mean Cor puscular Hemoglobin [facility] ([facility]) mean corpuscular HGB conc 32.7 g/dL 32.0-36.5 Mean Corpu scular HGB Conc [facility] ([facility]) platelet count, automated 276 10 150-450 Platelet C ount, Automated [facility] ([facility]) red cell distribution width 13.7 % 11.5-14.5 Red Cell Distribution Width [facility] ([facility]) nucleated red blood cell % 0.0 % 0-0 Nucleated Red Blood Cell % [facility] ([facility]) ID Date Data Source [id number] 12/08/2020 08:11:00 AM EDT [facility] ([facility]) Name Value Range Interpretation Code Description Data Kassy rce(s) Supporting Document(s) amphetamines level urine positive negative Above high andrea l Amphetamines Level Urine [facility] ([facility]) barbiturates urine negative negative Barbiturates Urin e [facility] ([facility]) benzodiazepines urine negative negative Benzodiazepine s Urine [facility] ([facility]) cannabinoids urine positive negative Above high normal Cannabinoi ds Urine [facility] ([facility]) cocaine metabolite urine negative negative Cocaine Met abolite Urine [facility] ([facility]) opiates urine negative negative Opiates Urine [facility] ( [facility]) methadone urine negative negative Methadone Urine [facility] ([facility]) phencyclidine urine negative negative Phencyclidine Ur ine [facility] ([facility]) ID Date Data Source [id number] 12/07/2020 09:14:00 AM EDT [place] ([facility]) Name Value Range Interpretation Code Description Data Kassy rce(s) Supporting Document(s) istat troponin 0.01 NG/mL 0.00-0.08 Istat Troponin [facility] ([facility]) ID Date Data Source [id number] 12/07/2020 09:12:00 AM EDT [place] ([facility]) Name Value Range Interpretation Code Description Data Kassy rce(s) Supporting Document(s) istat HCT 38.0 % 38.0-51.0 Istat HCT [facility] ([facility]) istat sodium 138 mEq/L 136-145 Istat Sodium [facility] (No [facility]) istat glucose 111 mg/dL 70-105 Above high normal Istat Glucose A [facility] ([facility]) istat Ca++ 4.7 mg/dL 4.5-5.3 Istat Ca++ [facility] ([facility]) istat potassium 3.9 mEq/L 3.5-5.1 Istat Potassium [facility] ([facility]) istat CO2 23.0 mm/L 23.0-27.0 Istat CO2 [facility] ([facility]) istat chloride 105 mEq/L 98-109 Istat Chloride [facility] ([facility]) istat BUN 9 mg/dL 8-26 Istat BUN [place] ([facility]) istat creatinine 0.6 mg/dL 0.6-1.3 Istat Creatinine AT [facility] ([facility]) ID Date Data Source [id number] 12/01/2020 03:02:00 AM EDT [facility] Name Value Range Interpretation Code Description Data Kassy rce(s) Supporting Document(s) SARS coronavirus 2 RNA [Presence] in Res piratory specimen by [facility]IS with probe detection NEGATIVE [facility] This lab was ordered by [facility] a nd reported by [facility]. ID Date Data Source [id number] 09/15/2020 03:35:50 PM [facility] Name Value Range Interpretation Code Description Data Kassy rce(s) Supporting Document(s) Color: yellow; Glucose: nega tive; Blood: small; pH: 6.0; Protein: small; Nitrite: positive; Leukocytes: moderate Abnormal (appl ies to non-numeric results) Urine Dipstick [facility] ([facility]) ID Date Data Source [id number] 09/15/2020 03:35:12 PM EST [facility] ([facility]) Name Value Range Interpretation Code Description Data Kassy rce(s) Supporting Document(s) NegativeLot: [id number]: 03/31/2022 High Sensitivity Urine Test [facility] ([facility]) ID Date Data Source [id number] 06/02/2020 02:08:00 PM EST [facility]) Name Value Range Interpretation Code Description Data Kassy rce(s) Supporting Document(s) alkaline phosphatase 75 U/L 45-117 Alkaline Phosph atase [facility]) ALT/SGPT 74 U/L 12-78 ALT/SGPT [place] ([facility]) AST/SGOT 58 U/L 7-37 Above high normal AST/SGOT [facility] ([facility]) total protein 7.7 gm/dL 6.4-8.2 Total Protein [facility] ( [facility]) bilirubin,total 0.4 mg/dL 0.2-1.0 Bilirubin,total [facility] ([facility]) bilirubin,direct 0.1 mg/dL 0.0-0.2 Bilirubin,direct AT [facility] ([facility]) albumin/globulin ratio 1.2-2.2 Below low normal Albumin /globulin Ratio [facility] ([facility]) albumin 3.7 gm/dL 3.2-5.2 Albumin [facility] ([facility]) ID Date Data Source [id number] 06/02/2020 02:08:00 PM EST [facility] ([facility]) Name Value Range Interpretation Code Description Data Kassy rce(s) Supporting Document(s) amphetamines level urine positive negative Above high andrea l Amphetamines Level Urine [facility] ([facility]) benzodiazepines urine negative negative Benzodiazepine s Urine [facility] ([facility]) barbiturates urine negative negative Barbiturates Urin e [facility] ([facility]) cannabinoids urine positive negative Above high normal Cannabinoi ds Urine [facility] ([facility]) cocaine metabolite urine negative negative Cocaine Met abolite Urine [facility] ([facility]) methadone urine positive negative Above high normal Methadone Uri ne [facility] ([facility]) phencyclidine urine negative negative Phencyclidine Ur ine [facility] ([facility]) opiates urine positive negative Above high normal Opiates Urine A [facility] ([facility]) ID Date Data Source [id number] 06/02/2020 02:08:00 PM EST [facility] ([facility]) Name Value Range Interpretation Code Description Data Kassy rce(s) Supporting Document(s) white blood count 5.8 10 4.0-10.0 White Blood Count [facility] ([facility]) red blood count 3.95 10 4.00-5.40 Below low normal Red Blood Coun t [facility] ([facility]) hemoglobin 12.2 g/dL 12.0-15.5 Hemoglobin [facility] ([facility]) mean corpuscular volume 94.2 fL 80.0-96.0 Mean Corpusc ular Volume [facility] ([facility]) hematocrit 37.2 % 36.0-47.0 Hematocrit [facility] ([facility]) mean corpuscular hemoglobin 30.9 pg 27.0-33.0 Mean Cor puscular Hemoglobin [facility] ([facility]) mean corpuscular HGB conc 32.8 g/dL 32.0-36.5 Mean Corpu scular HGB Conc [facility] ([facility]) red cell distribution width 12.8 % 11.5-14.5 Red Cell Distribution Width [place] ([facility]) nucleated red blood cell % 0.0 % 0-0 Nucleated Red Blood Cell % [facility] ([facility]) platelet count, automated 195 10 150-450 Platelet C ount, Automated [facility] ([facility]) ID Date Data Source [id number] 06/02/2020 02:08:00 PM EST [place] ([facility]) Name Value Range Interpretation Code Description Data Kassy rce(s) Supporting Document(s) HCG, serum qualitative negative negative HCG, Serum Qu alitative [place] ([facility]) ID Date Data Source [id number] 06/02/2020 02:08:00 PM EST [place] ([facility]) Name Value Range Interpretation Code Description Data Kassy rce(s) Supporting Document(s) thyroid stimulating hormone 1.690 uIU/mL 0.358-3.740 Thyroid Stimulating Hormone [place] ([facility]) ID Date Data Source [id number] 06/02/2020 02:08:00 PM EST [facility] ([facility]) Name Value Range Interpretation Code Description Data Kassy rce(s) Supporting Document(s) acetaminophen level < 2.0 10.0-30.0 Below low normal Acetaminop hen Level [place] [facility] Healthcare) ID Date Data Source [id number] 06/02/2020 02:08:00 PM EST [place] ([facility]) Name Value Range Interpretation Code Description Data Kassy rce(s) Supporting Document(s) salicylate level < 1.7 5.0-30.0 Below low normal Salicylate Le jose [place] ([facility]) ID Date Data Source [id number] 06/02/2020 02:08:00 PM EST [place] ([facility]) Name Value Range Interpretation Code Description Data Kassy rce(s) Supporting Document(s) ethyl alcohol (ethanol) < 0.003 0.000-0.010 Ethyl Alcoh ol (Ethanol) [place] ([facility]) ID Date Data Source [id number] 06/02/2020 02:08:00 PM EST [place] ([facility]) Name Value Range Interpretation Code Description Data Kassy rce(s) Supporting Document(s) creatinine for GFR 0.71 mg/dL 0.55-1.30 Creatinine for GF R [place] ([facility]) blood urea nitrogen 7 mg/dL 7-18 Blood Urea Nitro gen [place] ([facility]) glucose, fasting 82 mg/dL 70-100 Glucose, Fasting AT [facility]) glomerular filtration rate > 60.0 >60 Glomerula r Filtration Rate [place] ([facility]) sodium level 139 mEq/L 136-145 Sodium Level [place] (No [facility]) potassium serum 3.6 mEq/L 3.5-5.1 Potassium Serum [facility] ([facility]) anion gap 6 mEq/L 8-16 Below low normal Anion Gap [place] ( [facility]) carbon dioxide level 24 mEq/L 21-32 Carbon Dioxide Level [place] ([facility]) chloride level 109 mEq/L 98-107 Above high normal Chloride Level [place] ([facility]) calcium level 8.8 mg/dL 8.5-10.1 Calcium Level [place] ( [facility]) ID Date Data Source [id number] 06/01/2020 01:01:00 PM EST [place] ([facility]) Name Value Range Interpretation Code Description Data Kassy rce(s) Supporting Document(s) amphetamines level urine positive negative Above high andrea l Amphetamines Level Urine [place] ([facility]) cocaine metabolite urine positive negative Above high andrea l Cocaine Metabolite Urine [place] ([facility]) cannabinoids urine positive negative Above high normal Cannabinoi ds Urine [place] ([facility]) benzodiazepines urine negative negative Benzodiazepine s Urine [place] ([facility]) barbiturates urine negative negative Barbiturates Urin e [place] ([facility]) phencyclidine urine negative negative Phencyclidine Ur ine [place] ([facility]) methadone urine positive negative Above high normal Methadone Uri ne [place] ([facility]) opiates urine positive negative Above high normal Opiates Urine A [place] ([facility]) ID Date Data Source [id number] 06/01/2020 01:01:00 PM EST [place] ([facility]) Name Value Range Interpretation Code Description Data Kassy rce(s) Supporting Document(s) HCG, serum qualitative negative negative HCG, Serum Qu alitative [place] ([facility]) ID Date Data Source [id number] 06/01/2020 01:01:00 PM EST [place] ([facility]) Name Value Range Interpretation Code Description Data Kassy rce(s) Supporting Document(s) thyroid stimulating hormone 4.060 uIU/mL 0.358-3.740 Above high no rmal Thyroid Stimulating Hormone [place] ([facility]) ID Date Data Source [id number] 06/01/2020 01:01:00 PM EST [place] ([facility]) Name Value Range Interpretation Code Description Data Kassy rce(s) Supporting Document(s) acetaminophen level < 2.0 10.0-30.0 Below low normal Acetaminop hen Level [place] ([facility]) ID Date Data Source [id number] 06/01/2020 01:01:00 PM EST [place] ([facility]) Name Value Range Interpretation Code Description Data Kassy rce(s) Supporting Document(s) salicylate level < 1.7 5.0-30.0 Below low normal Salicylate Le jose [place] ([facility]) ID Date Data Source [id number] 06/01/2020 01:01:00 PM EST [place] ([facility]) Name Value Range Interpretation Code Description Data Kassy rce(s) Supporting Document(s) ethyl alcohol (ethanol) < 0.003 0.000-0.010 Ethyl Alcoh ol (Ethanol) [place] ([facility]) ID Date Data Source [id number] 06/01/2020 01:01:00 PM EST [place] ([facility]) Name Value Range Interpretation Code Description Data Kassy rce(s) Supporting Document(s) glucose, fasting 129 mg/dL 70-100 Above high normal Glucose, Fas ting [place] ([facility]) blood urea nitrogen 12 mg/dL 7-18 Blood Urea Nitro gen [place] ([facility]) creatinine for GFR 0.83 mg/dL 0.55-1.30 Creatinine for GF R [place] ([facility]) sodium level 136 mEq/L 136-145 Sodium Level [place] (No [facility]) glomerular filtration rate > 60.0 >60 Glomerula r Filtration Rate [place] ([facility]) potassium serum 3.6 mEq/L 3.5-5.1 Potassium Serum [facility] ([facility]) chloride level 103 mEq/L 98-107 Chloride Level [place] ([facility]) carbon dioxide level 23 mEq/L 21-32 Carbon Dioxide Level [place] ([facility]) anion gap 10 mEq/L 8-16 Anion Gap [place] ([facility]) calcium level 8.8 mg/dL 8.5-10.1 Calcium Level [place] ( [facility]) ID Date Data Source [id number] 06/01/2020 01:01:00 PM EST [place] ([facility]) Name Value Range Interpretation Code Description Data Kassy rce(s) Supporting Document(s) AST/SGOT 61 U/L 7-37 Above high normal AST/SGOT [place] ([facility]) ALT/SGPT 89 U/L 12-78 Above high normal ALT/SGPT [place] ([facility]) alkaline phosphatase 80 U/L 45-117 Alkaline Phosph atase [place] ([facility]) bilirubin,total 0.3 mg/dL 0.2-1.0 Bilirubin,total [facility] ([facility]) total protein 8.4 gm/dL 6.4-8.2 Above high normal Total Protein A [facility] ([facility]) bilirubin,direct 0.1 mg/dL 0.0-0.2 Bilirubin,direct AT [facility]) albumin/globulin ratio 1.2-2.2 Below low normal Albumin /globulin Ratio [place] ([facility]) albumin 4.2 gm/dL 3.2-5.2 Albumin [place] ([facility]) ID Date Data Source [id number] 06/01/2020 01:01:00 PM EST [place] ([facility]) Name Value Range Interpretation Code Description Data Kassy rce(s) Supporting Document(s) white blood count 5.6 10 4.0-10.0 White Blood Count [place] ([facility]) red blood count 4.07 10 4.00-5.40 Red Blood Count [place] [place] ([facility]) hemoglobin 12.4 g/dL 12.0-15.5 Hemoglobin [place] ([facility]) hematocrit 37.8 % 36.0-47.0 Hematocrit [place] ([facility]) mean corpuscular hemoglobin 30.5 pg 27.0-33.0 Mean Cor puscular Hemoglobin [place] ([facility]) mean corpuscular HGB conc 32.8 g/dL 32.0-36.5 Mean Corpu scular HGB Conc [facility] ([facility]) mean corpuscular volume 92.9 fL 80.0-96.0 Mean Corpusc ular Volume [place] ([facility]) neutrophils % 39.6 % 36.0-66.0 Neutrophils % [place] ( [facility]) red cell distribution width 12.8 % 11.5-14.5 Red Cell Distribution Width [place] ([facility]) platelet count, automated 205 10 150-450 Platelet C ount, Automated [place] ([facility]) mono % 8.0 % 0.0-5.0 Above high normal [place] % [place] ([facility]) lymph % 48.6 % 24.0-44.0 Above high normal Lymph % [place] ([facility]) baso % 0.9 % 0.0-1.0 Baso % [place] ([facility]) eos % 2.7 % 0.0-3.0 Eos % [place] ([facility]) immature granulocyte % 0.2 % 0-3.0 Immature Gran ulocyte % [place] ([facility]) nucleated red blood cell % 0.0 % 0-0 Nucleated Red Blood Cell % [place] ([facility]) neutrophils # 2.2 10 1.5-8.5 Neutrophils # [place] ( [facility]) lymph # 2.7 10 1.5-5.0 Lymph # [place] ([facility]) mono # 0.5 10 0.0-0.8 [place] # [place] ([facility]) eos # 0.2 10 0.0-0.5 Eos # [place] ([facility]) baso # 0.1 10 0.0-0.2 Baso # [place] ([facility]) ID Date Data Source [id number] 05/07/2020 09:44:00 AM EDT [facility] Name Value Range Interpretation Code Description Data Kassy rce(s) Supporting Document(s) Free T4 (Free Thyroxine) 0.76-1.46 Normal (applies to non -numeric results) [facility] ID Date Data Source [id number] 05/07/2020 09:44:00 AM EDT [facility] Name Value Range Interpretation Code Description Data Kassy rce(s) Supporting Document(s) Thyroid Stimulate Hormone TSH 0.358-3.740 Above high andrea l [facility] ID Date Data Source [id number] 04/30/2020 01:37:00 PM [facility]T [facility] CELY [facility]S [facility] Rec #: [id number] 14 : 1985 Age/Sex: 34F Date of Service: 04/30/20 DISPOSITION SUMMARY Discharge Summary [facility] Name:Cely Sims Emergency Department Age:34 yrs [...] Attending Physician: Stephen Woods MD Private MD: Bruna, Provider Mid Level Provider: Eder Willard PA [...] Discharge Instruction: Discharge Summary Sheet, Constipation, Adult, Izhk-ph-Hcaz, Medication Reconciliation Name Value Range Interpretation Code Description Data Kassy rce(s) Supporting Document(s) ID Date Data Source [id number] 04/30/2020 01:37:00 PM EDT [facility] Name: CELY SIMS [facility] Rec #: [id number] 14 : 1985 Age/Sex: 34F Date of Service: 04/30/20 PHYSICIAN CHART Physician Documentation [facility] Name: Cely Sims Age: 34 yrs Sex: Female : 1985 Arrival Date: 04/30/2020 Time: 13:37 Bed 8 Private MD: Bruna, Provider ED Physician Stephen Woods Disposition: 04/30 [...] a 34-year-old female with history of mental zrw1 health disorders including schizophrenia, depression, anxiety, bipolar [...] fevers, headaches, chest pain, shortness of breath.. 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 ROS: 14:40 Constitutional: Negative for fever, chills, [...] rate of 83 zrw1 beats per minute. MN 168ms. QRS 94ms. QT 426. Normal axis. [...] 14:27 Order name: Lipase; Complete Time: 15:22 zr04/30 15:54 Interpretation: LIP 85. w04/30 14:27 Order name: UA.; Complete Time: 15:19 [facility] 04/30 15:02 Interpretation: Ur Color Yellow; Ur Clarity Clear; Ur Leuk zrw1 Est 2+ Mod; Ur Nitrite Negative. 04/30 14:39 Order name: POC Urine HCG for ED; Complete Time: 15:19 dk2 04/30 15:54 Interpretation: POC ED Ur HCG NEGATIVE. [facility] 14:27 Order name: Ct Abdomen & Pelvis with Con [facility] 04/30 14:27 Order name: Collect Urine - Clean Catch; Complete Time: 14:33 04/30 14:58 Order name: Urinalysis Auto w/Microscopy [facility] 04/30 14:58 Order name: Urine Culture [facility] 04/30 15:02 Order name: Emergency Room EKG Order - Use EKG Work-Up zrw1 /Quick Select; Complete Time: 15:28 04/30 15:02 Order name: Cardiology EKG Interpretation - Choose Reason [facility] for Test 04/30 14:27 Order name: Iv Saline Lock; Complete Time: 14:44 zr1 04/30 14:27 Order name: NPO; Complete Time: 14:34 [facility] 14:27 Order name: POC - Collect UHCG; Complete Time: 14:39 zrw1 04/30 16:17 Order name: Phillip Enema: To Go; Complete Time: 16:18 zrw1 Dispensed Medications: 15:04 Drug: NS 0.9% 1000 [...] Discharge Summary Sheet zrw1 - Constipation, Adult, Xurt-wl-Zdgw zrw1 Forms: - Medication Reconciliation zrw1 Prescriptions: [...] following items were deleted from the chart) 16: 16:03 ED course: This patient is a [...] Value Range Interpretation Code Description Data Kassy e(s) Supporting Document(s) ID Date Data Source [id number] 04/30/2020 01:37:00 PM EDT [facility] Name: CELY SIMS [facility] Rec #: [id number] 14 : 1985 Age/Sex: 34F Date of Service: 04/30/20 NURSE CHART Nurse's Notes [facility] Name: Cely Sims Age: 34 yrs Sex: Female : 1985 Arrival Date: 04/30/2020 Time: 13:37 Bed 8 Private MD: Rehab, Provider Diagnosis: Abdominal Pain, Unspecified;Constipation, unspecified Presentation: 04/30 13:38 Acuity: Urgent - 3 awr 13:56 Transition of care: patient was not received from another [facility] setting of care. Presenting complaint: Patient states - She has not had a BM in the last two days despite using suppositories.. Pt is currently at our rehab facility. Have you travelled in the last 30 days? Yes, Where have you travelled? From [place]. . Have you had contact with an [...] Abdomen is distended, The patient reports constipation. 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 Screenin:06 AUDIT 1. How often do you [...] 1000ml. dk2 Outcome: 16:18 Discharge ordered by zrw1 16:35 Patient verbalized understanding of disposition [...] number Signatures: Surekha Carvajal RN RN sj Ori Carlson RN RN [email or web address] Maira Nunez RN RN dk2 Jesse Hernandez RN RN Yoli Rosado NA NA jmg Willis, Zachary, PA PA zrw1 Antonina Iveyd Name Value Range Interpretation Code Description Data Kassy rce(s) Supporting Document(s) ID Date Data Source [id number] 05/01/2020 09:27:00 AM EDT [facility] Name: CELY SIMS : 1985 A ge/Sex: 34F Ordering Provider: LEA White Med Rec #: [id number] Reg Status:[facility] ER Room #: Date of Service: 04/30/20 Report Number: [id number] cc: PCP None; LEA White Send Report To: Reason for exam: ABDOMINAL PAIN SINUS RHYTHM POSSIBLE RIGHT VENTRICULAR CONDUCTION DELAY BORDERLINE ECG Compared to 04/18/2020 there is no significant change Physician Basic Combatant Swimmer: Serafin Daugherty M.D. ECG HEART RATE: 83 /min ECG RR INTERVAL: 716 ms ECG P DURATION: 119 ms ECG QRS DURATION: 94 ms ECG MN INTERVAL: 168 ms ECG QT INTERVAL: 426 ms ECG QTC INTERVAL: 466 ms Q-T dispersion: ms ECG P AXIS: 42 deg ECG QRS AXIS: 21 deg ECG T AXIS: 33 deg REPORT SIGNATURE ON FILE 05/01/20927 Reported By: Serafin Daugherty MD, [facility] <<Signature on File>> Exam Date/Time: 04/30/20 1523 Order #: [id number] Dictation Date/Time: 05/01/20926 Transcribed Date/Time: 05/01/20926 Mechanical Maintenance: LETICIA Name Value Range Interpretation Code Description Data Kassy rce(s) Supporting Document(s) ID Date Data Source [id number] 05/02/2020 10:45:00 AM EDT [facility] Name Value Range Interpretation Code Description Data Kassy rce(s) Supporting Document(s) Urine Culture Normal (applies to non-numeric re sults) [facility] ID Date Data Source [id number] 04/30/2020 03:21:00 PM EDT [facility] Name Value Range Interpretation Code Description Data Kassy rce(s) Supporting Document(s) Sodium 142 mmol/L 137-145 Normal (applies to non-numeric resul ts) [facility] Potassium 3.5-5.1 Normal (applies to non-numeric resul ts) [facility] Chloride 113 mmol/L 98-112 Above high normal [facility] Carbon Dioxide CO2 22.0-33.0 Normal (applies to non-numer ic results) [facility] Anion Gap 4.0-11.0 Normal (applies to non-numeric resul ts) [facility] BUN 17 mg/dL 7-17 Normal (applies to non-numeric resul ts) [facility] Creatinine 0.70-1.20 Normal (applies to non-numeric resul ts) [facility] GFR 85 mL/min >60 Normal (applies to non-numeric resul ts) [facility] Result based on MDRD formula. Glucose Level 85 mg/dL 74-99 Normal (applies to non-numeric re sults) [facility] The reference range is only applicable w hen fasting. Calcium-Uncorrected 8.4-10.2 Normal (applies to non-nume claudia results) [facility] Corrected Calcium 8.4-10.2 Normal (applies to non-numeri c results) [facility] Bilirubin,Total 0.2-1.3 Below low normal [facility] SGOT(AST) 37 U/L 14-36 Above high normal [facility] SGPT(ALT) 37 U/L 9-52 Normal (applies to non-numeric resul ts) [facility] Alkaline Phosphatase 81 U/L 38-126 Normal (applies to non-num clementine results) [facility] can increase Alkaline Phosp le vels up to 2 times the normal adult value. Normal values for children and adolescents are 2 to 3 times the normal adult value. Total Protein 6.3-8.2 Normal (applies to non-numeric re sults) [facility] Albumin 3.5-5.0 Normal (applies to non-numeric resul ts) [facility] ID Date Data Source [id number] 04/30/2020 03:21:00 PM EDT [facility] Name Value Range Interpretation Code Description Data Kassy rce(s) Supporting Document(s) C-Reactive Protein,Wide Range <3.00 Normal (applies t o non-numeric results) [facility] ID Date Data Source [id number] 04/30/2020 03:21:00 PM EDT [facility] Name Value Range Interpretation Code Description Data Kassy rce(s) Supporting Document(s) Lipase 85 U/L 73-393 Normal (applies to non-numeric resul ts) [facility] ID Date Data Source [id number] 04/30/2020 03:07:00 PM EDT [facility] Name Value Range Interpretation Code Description Data Kassy rce(s) Supporting Document(s) White Blood Count 4.8-10.8 Normal (applies to non-numeri c results) [facility] Red Blood Count 3.68-5.22 Normal (applies to non-numeric results) [facility] Hemoglobin 11.2-15.7 Normal (applies to non-numeric resul ts) [facility] Hematocrit 34.1-44.9 Normal (applies to non-numeric resul ts) [facility] Mean Corpuscular Volume 81-99 Normal (applies to non- numeric results) [facility] Mean Corpuscular Hemoglobin 27.0-33.0 Normal (appli es to non-numeric results) [facility] Mean Corpuscular HGB Conc 32.0-36.0 Normal (applies to no n-numeric results) [facility] Red Cell Distribution Width 11.5-14.5 Normal (appli es to non-numeric results) [facility] Platelet Count 240 X10 3/uL 130-450 Normal (applies to non-numeric results) [facility] Mean Platelet Volume 9.5-12.7 Normal (applies to non-num clementine results) [facility] Imm Grans% (AUTO) 0 % 0-2 Normal (applies to non-numeri c results) [facility] Neutrophils % (AUTO) 42 % 40-75 Normal (applies to non-num clementine results) [facility] Lymphocytes % (AUTO) 46 % 21-46 Normal (applies to non-num clementine results) [facility] Monocytes % (AUTO) 7 % 5-12 Normal (applies to non-numer ic results) [facility] Eosinophils % (AUTO) 3 % 1-5 Normal (applies to non-num clementine results) [facility] Basophils % (AUTO) 1 % 0-1 Normal (applies to non-numer ic results) [facility] Imm Grans# (AUTO) 0.0-0.5 Normal (applies to non-numeri c results) [facility] Neutrophils # (AUTO) 1.5-8.1 Normal (applies to non-num clementine results) [facility] Lymphocytes # (AUTO) 1.0-3.1 Above high normal [facility] Monocytes # (AUTO) 0.2-1.3 Normal (applies to non-numer ic results) [facility] Eosinophils# (AUTO) 0.0-0.5 Normal (applies to non-nume claudia results) [facility] Basophils # (AUTO) 0.0-0.1 Normal (applies to non-numer ic results) [facility] ID Date Data Source [id number] 04/30/2020 03:15:00 PM EDT [facility] Control Line Present? YPerformed by: Jewels Valles HCG Screen Result: NEGATIVE Name Value Range Interpretation Code Description Data Kassy rce(s) Supporting Document(s) POC ED Urine HCG NEGATIVE Normal (applies to non-numeric results) [facility] ID Date Data Source [id number] 04/30/2020 03:10:00 PM EDT [facility] Name Value Range Interpretation Code Description Data Kassy rce(s) Supporting Document(s) Color,Urine Yellow Normal (applies to non-numeric resu lts) [facility] Clarity,Urine Clear Normal (applies to non-numeric re sults) [facility] Specific [place],Urine 1.001-1.030 Normal (applies to non- numeric results) [facility] PH,Urine 4.6-8.0 Normal (applies to non-numeric resul ts) [facility] Protein,Urine Negative Normal (applies to non-numeric re sults) [facility] Glucose,Urine (UA) Negative Normal (applies to non-numer ic results) [facility] Ketones,Urine Negative Normal (applies to non-numeric re sults) [facility] Blood,Urine Negative Normal (applies to non-numeric resu lts) [facility] Bilirubin,Urine Negative Normal (applies to non-numeric results) [facility] Urobilinogen,Urine Norm 0.2-1 Normal (applies to non-numer ic results) [facility] Leukocyte Esterase,Urine Negative [facility] Nitrite,Urine Negative Normal (applies to non-numeric re sults) [facility] ID Date Data Source [id number] 04/30/2020 03:10:00 PM EDT [facility] Name Value Range Interpretation Code Description Data Kassy rce(s) Supporting Document(s) WBC,URINE 0-10 [facility] RBC,Urine 0-2 Normal (applies to non-numeric resul ts) [facility] Hyaline Casts,Ur None Seen Normal (applies to non-numeric results) [facility] Bacteria,Urine None Seen [facility] Epithelial Cell,Ur None-Few Bhagat [facility] ID Date Data Source [id number] 05/01/2020 06:14:00 AM EDT [facility] Name: CELY SIMS : 1985 A ge/Sex: 34F Ordering Provider: LEA White Med Rec #: [id number] Reg Status: DEP ER Room #: Date of Service: 04/30/20 Report Number: [id number] cc:PCP None Send Report To: [id number] CT/CT Abdomen & Pelvis w Con Reason [...] Date/Time: 04/30/20 1541 Transcribed Date/Time: 05/01/20 0614 Mechanical Maintenance: CHEL Name Value Range Interpretation Code Description Data Kassy rce(s) Supporting Document(s) ID Date Data Source [id number] 04/23/2020 09:55:00 AM [facility] Name Value Range Interpretation Code Description Data Kassy rce(s) Supporting Document(s) Free T4 (Free Thyroxine) 0.76-1.46 Normal (applies to non -numeric results) [facility] ID Date Data Source [id number] 04/23/2020 09:55:00 AM [facility] Name Value Range Interpretation Code Description Data Kassy rce(s) Supporting Document(s) Thyroid Stimulate Hormone TSH 0.358-3.740 Above high andrea l [facility] ID Date Data Source [id number] [facility] : 1985 A ge/Sex: 34F Ordering Provider: Stephanie TATE Med Rec #: [id number] Reg Status:ADM IN Room #: 156-2 Date of Service: 04/18/20 Report Number: [id number] cc: Stephanie TATE; Annelise Gray MD Send Report To: Reason for exam: chest pain with cocaine SINUS RHYTHM POSSIBLE LEFT ATRIAL ENLARGEMENT POSSIBLE RIGHT VENTRICULAR CONDUCTION DELAY NONSPECIFIC T-WAVE ABNORMALITY Physician Basic Combatant Swimmer: Dr. Ben Tillman M.D. ECG HEART RATE: 78 /min ECG RR INTERVAL: 765 ms ECG P DURATION: 115 ms ECG QRS DURATION: 90 ms ECG MN INTERVAL: 143 ms ECG QT INTERVAL: 426 ms ECG QTC INTERVAL: 457 ms Q-T dispersion: ms ECG P AXIS: 71 deg ECG QRS AXIS: 72 deg ECG T AXIS: 32 deg REPORT SIGNATURE ON FILE 04/18/20 1552 Reported By: Ben Tillman MD <<Signature on File>> Exam Date/Time: 04/18/20 0759 Order #: [id number] Dictation Date/Time: 04/18/201551 Transcribed Date/Time: 04/18/201551 Mechanical Maintenance: LETICIA Name Value Range Interpretation Code Description Data Kassy rce(s) Supporting Document(s) ID Date Data Source [id number] 04/17/2020 11:39:00 AM EDT [facility] Value Range Interpretation Code Description Data Kassy rce(s) Supporting Document(s) Hep Bs Ag Result T-Test Nonreactive Normal (applies to non -numeric results) [facility] ID Date Data Source [id number] 04/17/2020 11:39:00 AM EDT [facility] Value Range Interpretation Code Description Data Kassy rce(s) Supporting Document(s) Syphilis Serology Nonreactive Normal (applies to non-numer ic results) [facility] ID Date Data Source [id number] 04/17/2020 11:39:00 AM EDT [facility] Value Range Interpretation Code Description Data Kassy rce(s) Supporting Document(s) HAVM Nonreactive Normal (applies to non-numeric resu lts) [facility] ID Date Data Source [id number] 04/17/2020 11:39:00 AM EDT [facility] Value Range Interpretation Code Description Data Kassy rce(s) Supporting Document(s) Vitamin D,Total (25OH) 30.0-100.0 Below low normal [facility] Reference Range: <10 ng/mL: Deficien t 10-30 ng/mL: Insufficient 30-100 ng/mL: Sufficient >100 ng/mL: Toxicity possible ID Date Data Source [id number] 04/17/2020 10:44:00 AM EDT [facility] Value Range Interpretation Code Description Data Kassy rce(s) Supporting Document(s) C-Reactive Protein,Wide Range <3.00 Normal (applies t o non-numeric results) [facility] ID Date Data Source [id number] 04/17/2020 10:44:00 AM EDT [facility] Name Value Range Interpretation Code Description Data Kassy rce(s) Supporting Document(s) Magnesium 1.80-2.40 Normal (applies to non-numeric resul ts) [facility] ID Date Data Source [id number] 04/17/2020 10:44:00 AM EDT [facility] Name Value Range Interpretation Code Description Data Kassy rce(s) Supporting Document(s) Sodium 137 mmol/L 137-145 Normal (applies to non-numeric resul ts) [facility] Potassium 3.5-5.1 Normal (applies to non-numeric resul ts) [facility] Chloride 110 mmol/L 98-112 Normal (applies to non-numeric resul ts) [facility] Carbon Dioxide CO2 22.0-33.0 Below low normal [facility] Anion Gap 4.0-11.0 Normal (applies to non-numeric resul ts) [facility] BUN 16 mg/dL 7-17 Normal (applies to non-numeric resul ts) [facility] Creatinine 0.70-1.20 Normal (applies to non-numeric resul ts) [facility] GFR 88 mL/min >60 Normal (applies to non-numeric resul ts) [facility] Result based on MDRD formula. Glucose Level 94 mg/dL 74-99 Normal (applies to non-numeric re sults) [facility] The reference range is only applicable w hen fasting. Calcium-Uncorrected 8.4-10.2 Normal (applies to non-nume claudia results) [facility] Corrected Calcium 8.4-10.2 Normal (applies to non-numeri c results) [facility] Bilirubin,Total 0.2-1.3 Normal (applies to non-numeric results) [facility] Bilirubin,Direct 0.0-0.3 Normal (applies to non-numeric results) [facility] SGOT(AST) 32 U/L 14-36 Normal (applies to non-numeric resul ts) [facility] SGPT(ALT) 35 U/L 9-52 Normal (applies to non-numeric resul ts) [facility] Alkaline Phosphatase 70 U/L 38-126 Normal (applies to non-num clementine results) [facility] can increase Alkaline Phosp le vels up to 2 times the normal adult value. Normal values for children and adolescents are 2 to 3 times the normal adult value. CPK 172 U/L 26-192 Normal (applies to non-numeric resul ts) [facility] Total Protein 6.3-8.2 Normal (applies to non-numeric re sults) [facility] Albumin 3.5-5.0 Normal (applies to non-numeric resul ts) [facility] Thyroid Stimulate Hormone TSH 0.358-3.740 Above high andrea l [facility] ID Date Data Source [id number] 04/17/2020 10:07:00 AM EDT [facility] Name Value Range Interpretation Code Description Data Kassy rce(s) Supporting Document(s) White Blood Count 4.8-10.8 Normal (applies to non-numeri c results) [facility] Red Blood Count 3.68-5.22 Normal (applies to non-numeric results) [facility] Hemoglobin 11.2-15.7 Normal (applies to non-numeric resul ts) [facility] Hematocrit 34.1-44.9 Below low normal [facility] Mean Corpuscular Volume 81-99 Normal (applies to non- numeric results) [facility] Mean Corpuscular Hemoglobin 27.0-33.0 Normal (appli es to non-numeric results) [facility] Mean Corpuscular HGB Conc 32.0-36.0 Normal (applies to no n-numeric results) [facility] Red Cell Distribution Width 11.5-14.5 Normal (appli es to non-numeric results) [facility] Platelet Count 197 X10 3/uL 130-450 Normal (applies to non-numeric results) [facility] Mean Platelet Volume 9.5-12.7 Normal (applies to non-num clementine results) [facility] Imm Grans% (AUTO) 0 % 0-2 Normal (applies to non-numeri c results) [facility] Neutrophils % (AUTO) 46 % 40-75 Normal (applies to non-num clementine results) [facility] Lymphocytes % (AUTO) 42 % 21-46 Normal (applies to non-num clementine results) [facility] Monocytes % (AUTO) 9 % 5-12 Normal (applies to non-numer ic results) [facility] Eosinophils % (AUTO) 3 % 1-5 Normal (applies to non-num clementine results) [facility] Basophils % (AUTO) 1 % 0-1 Normal (applies to non-numer ic results) [facility] Imm Grans# (AUTO) 0.0-0.5 Normal (applies to non-numeri c results) [facility] Neutrophils # (AUTO) 1.5-8.1 Normal (applies to non-num clementine results) [facility] Lymphocytes # (AUTO) 1.0-3.1 Normal (applies to non-num clementine results) [facility] Monocytes # (AUTO) 0.2-1.3 Normal (applies to non-numer ic results) [facility] Eosinophils# (AUTO) 0.0-0.5 Normal (applies to non-nume claudia results) [facility] Basophils # (AUTO) 0.0-0.1 Normal (applies to non-numer ic results) [facility] ID Date Data Source [id number] 04/16/2020 11:13:00 AM EDT [facility] Name Value Range Interpretation Code Description Data Kassy rce(s) Supporting Document(s) Respiratory specimen severe acute respir atory syndrome coronavirus 2 (SARS-CoV-2) RNA [facility] ital This lab was ordered by [facility] lola and reported by [facility]. ID Date Data Source [id number] 04/16/2020 03:13:00 PM EDT [facility] Name Value Range Interpretation Code Description Data Kassy rce(s) Supporting Document(s) Opiate Screen,Urine Negative Normal (applies to non-nume claudia results) [facility] Amphetamine Screen,Urine Negative Normal (applies to non -numeric results) [facility] Benzodiazepines Scrn,Ur result Negative N ormal (applies to non-numeric results) [facility] Cocaine Screen,Urine Negative Normal (applies to non-num clementine results) [facility] Methadone Screen,Urine Negative Normal (applies to non-n umeric results) [facility] Cannabinoid Screen, Ur Negative Normal (applies to non-n umeric results) [facility] Therapeutic Drug Ranges for Emergency an d Rehabilitation Threshold Levels (ng/mL) Cocaine 300 Opiates 300 Cannabinoids 50 Barbiturates 200 Benzodiazepine 200 Methadone 300 Amphetamines 1000 All positive find ings are presumptive and unconfirmed. Confirmation of positive results are performed only at request of provider. Unconfirmed results must not be used for non-medical purposes (i.e. pre-employment and legal purposes) ID Date Data Source [id number] 04/16/2020 02:00:00 PM EDT [facility] Name Value Range Interpretation Code Description Data Kassy rce(s) Supporting Document(s) Color,Urine Yellow Normal (applies to non-numeric resu lts) [facility] Clarity,Urine Clear Normal (applies to non-numeric re sults) [facility] Specific [place],Urine 1.001-1.030 Normal (applies to non- numeric results) [facility] PH,Urine 5.0-8.0 Normal (applies to non-numeric resul ts) [facility] Protein,Urine Negative Normal (applies to non-numeric re sults) [facility] Glucose,Urine (UA) Negative Normal (applies to non-numer ic results) [facility] Ketones,Urine Negative Normal (applies to non-numeric re sults) [facility] Blood,Urine Negative Normal (applies to non-numeric resu lts) [facility] Bilirubin,Urine Negative Normal (applies to non-numeric results) [facility] Urobilinogen,Urine Norm 0.2-1 Normal (applies to non-numer ic results) [facility] Leukocyte Esterase,Urine Negative Normal (applies to non -numeric results) [facility] Nitrite,Urine Negative Normal (applies to non-numeric re sults) [facility] ID Date Data Source [id number] 04/16/2020 02:00:00 PM EDT [facility] Name Value Range Interpretation Code Description Data Kassy rce(s) Supporting Document(s) Urine HCG Negative Normal (applies to non-numeric resul ts) [facility] ID Date Data Source [id number] 04/16/2020 11:13:00 AM EDT [facility] First test? UNKNOWNEmployed in [facility] re? UNKNOWNSymptomatic per CDC? UNKNOWNHospitalized? UNKNOWNICU? UNKNOWNResident in congregated care? ex [facility], [facility] UNKNOWN? UNKNOWN Name Value Range Interpretation Code Description Data Kassy rce(s) Supporting Document(s) SARS-CoV-2 RNA Negative Normal (applies to non-numeric r esults) [facility] Negative results should be treated as pr [...] Certificate of Accreditation. Factsheets for healthcare providers: https://www.fda.gov/media/744538/download Factsheets for patients: https://www.fda.gov/media/351498/download THIS IS A STATE REPORTABLE COMMUNICABLE DISEASE. Manual entry verified by Jessika Villareal 04/16/20 1112 Procedure Social History Code Duration Value Status Description Data Source(s ) Smoking 04/14/2021 12:00:00 AM EDT Smoker, current status unkn own completed Smoker, current status unknown [facility] ([facility]) 09/15/2020 12:00:00 AM EST Heavy cigarette smoker (20- 39 cigs/day) completed Heavy cigarette smoker (20-39 cigs/day) [facility] ([facility]) Vital Signs ID Date Data Source UNK Name Value Range Interpretation Code Description Data Source(s) Diastolic blood pressure 73 mm[Hg] 73 mm[Hg] [facility] ([facility]) Systolic blood pressure 104 mm[Hg] 104 mm[Hg] A THENA ([facility]) Body weight 1920 [oz_av] 1920 [oz_av] [facility] ([facility]) Body height 154.94 cm 154.94 cm [facility] ([facility]) Body weight 59.239 kg 59.239 kg [facility] ([facility]) Systolic blood pressure 120 mm[Hg] 120 mm[Hg] N [facility] ([facility]) Diastolic blood pressure 77 mm[Hg] 77 mm[Hg] [facility] ([facility]) Body mass index (BMI) [Ratio] 24.68 kg/m2 24.68 kg/m2 [facility] ([facility]) Body height 154.94 cm 154.94 cm [facility] ([facility]) Body weight 58.967 kg 58.967 kg [facility] Body mass index (BMI) [Ratio] 24.56 kg/m2 24.56 kg/m2 [facility] ([facility]) ID Date Data Source [id number] 02/23/2021 10:02:00 AM EDT [facility] Name Value Range Interpretation Code Description Data Source(s) Weight (Calculated Kilograms) 55.34 55.34 [facility] Height (Calculated Centimeters) 154.94 154. 94 [facility] Body Mass Index (BMI) 23.0 23.0 [facility] ID Date Data Source [id number] 03/09/2021 03:19:00 PM EDT [facility] Name Value Range Interpretation Code Description Data Source(s) Weight Measurement Method 1 1 [facility] Weight (Calculated Kilograms) 55.34 55.34 [facility] Weight 2144 2144 [facility] Temperature Source 7 7 [facility] Temperature 96.4 96.4 [facility] Respiratory Effort 1 1 [facility] Respiratory Rate 16 16 [facility] Pulse Assessment Method 4 4 [facility] Pulse Rate 117 117 [facility] Height (Calculated Centimeters) 154.94 154. 94 [facility] Height 61 61 [facility] Blood Pressure 110/70 110/70 [facility] Body Mass Index (BMI) 23.0 23.0 [facility] Weight Measurement Method 1 1 [facility] Weight (Calculated Kilograms) 55.34 55.34 [facility] Weight 2144 2144 [facility] Temperature Source 7 7 [facility] Temperature 96.4 96.4 [facility] Respiratory Effort 1 1 [facility] Respiratory Rate 16 16 [facility] Pulse Assessment Method 4 4 [facility] Pulse Rate 117 117 [facility] Height (Calculated Centimeters) 154.94 154. 94 [facility] Height 61 61 [facility] Blood Pressure 110/70 110/70 [facility] Body Mass Index (BMI) 23.0 23.0 [facility] Weight Measurement Method 1 1 [facility] Weight (Calculated Kilograms) 55.34 55.34 [facility] Weight 2144 2144 [facility] Temperature Source 7 7 [facility] Temperature 96.4 96.4 [facility] Respiratory Effort 1 1 [facility] Respiratory Rate 16 16 [facility] Pulse Assessment Method 4 4 [facility] Pulse Rate 117 117 [facility] Height (Calculated Centimeters) 154.94 154. 94 [facility] Height 61 61 [facility] Blood Pressure 110/70 110/70 [facility] Body Mass Index (BMI) 23.0 23.0 [facility] Weight Measurement Method 1 1 [facility] Weight (Calculated Kilograms) 55.34 55.34 [facility] Weight 1983 1983 [facility] Temperature Source 7 7 [facility] Temperature 97.3 97.3 [facility] Respiratory Effort 1 1 [facility] Respiratory Rate 14 14 [facility] Pulse Assessment Method 4 4 [facility] Pulse Rate 69 69 [facility] Height (Calculated Centimeters) 154.94 154. 94 [facility] Height 61 61 [facility] Blood Pressure 112/79 112/79 [facility] Body Mass Index (BMI) 23.0 23.0 [facility] Weight Measurement Method 1 1 [facility] Weight (Calculated Kilograms) 55.34 55.34 [facility] Weight 1984 1983 [facility] Temperature Source 7 7 [facility] Temperature 97.1 97.1 [facility] Respiratory Effort 1 1 [facility] Respiratory Rate 16 16 [facility] Pulse Assessment Method 4 4 [facility] Pulse Rate 74 74 [facility] Height (Calculated Centimeters) 154.94 154. 94 [facility] Height 61 61 [facility] Blood Pressure 110/74 110/74 [facility] Body Mass Index (BMI) 23.0 23.0 [facility] Weight (Calculated Kilograms) 56.25 56.25 [facility] Height (Calculated Centimeters) 154.94 154. 94 [facility] Body Mass Index (BMI) 23.4 23.4 [facility] ID Date Data Source [id number] 05/07/2020 09:12:00 AM EDT [facility] Name Value Range Interpretation Code Description Data Source(s) Weight (Calculated Kilograms) 56.25 56.25 [facility] Height (Calculated Centimeters) 154.94 154. 94 [facility] Body Mass Index (BMI) 23.4 23.4 [facility] Weight (Calculated Kilograms) 56.25 56.25 [facility] Height (Calculated Centimeters) 154.94 154. 94 [facility] Body Mass Index (BMI) 23.4 23.4 [facility] Weight (Calculated Kilograms) 56.25 56.25 [facility] Height (Calculated Centimeters) 154.94 154. 94 [facility] Body Mass Index (BMI) 23.4 23.4 [facility] Weight (Calculated Kilograms) 56.25 56.25 [facility] Height (Calculated Centimeters) 154.94 154. 94 [facility] Body Mass Index (BMI) 23.4 23.4 [facility] ID Date Data Source [id number] 05/19/2020 05:30:00 AM EDT [facility] Name Value Range Interpretation Code Description Data Source(s) Weight Measurement Method 1 1 [facility] Weight (Calculated Kilograms) 56.25 56.25 [facility] Weight 2063 2063 [facility] Temperature Source 7 7 [facility] Temperature 97.5 97.5 [facility] Respiratory Effort 1 1 [facility] Respiratory Rate 15 15 [facility] Pulse Assessment Method 4 4 [facility] Pulse Rate 83 83 [facility] Height (Calculated Centimeters) 154.94 154. 94 [facility] Height 61 61 [facility] Blood Pressure 109/75 109/75 [facility] Body Mass Index (BMI) 23.4 23.4 [facility] Weight Measurement Method 1 1 [facility] Weight (Calculated Kilograms) 56.25 56.25 [facility] Weight 2063 2063 [facility] Temperature Source 7 7 [facility] Temperature 97.5 97.5 [facility] Respiratory Effort 1 1 [facility] Respiratory Rate 15 15 [facility] Pulse Assessment Method 4 4 [facility] Pulse Rate 83 83 [facility] Height (Calculated Centimeters) 154.94 154. 94 [facility] Height 61 61 [facility] Blood Pressure 109/75 109/75 [facility] Body Mass Index (BMI) 23.4 23.4 [facility] Weight Measurement Method 1 1 [facility] Weight (Calculated Kilograms) 56.25 56.25 [facility] Weight 2063 2063 [facility] Temperature Source 7 7 [facility] Temperature 97.5 97.5 [facility] Respiratory Effort 1 1 [facility] Respiratory Rate 15 15 [facility] Pulse Assessment Method 4 4 [facility] Pulse Rate 83 83 [facility] Height (Calculated Centimeters) 154.94 154. 94 [facility] Height 61 61 [facility] Blood Pressure 109/75 109/75 [facility] Body Mass Index (BMI) 23.4 23.4 [facility] Weight Measurement Method 1 1 [facility] Weight (Calculated Kilograms) 56.25 56.25 [facility] Weight 2063 2063 [facility] Temperature Source 7 7 [facility] Temperature 97.5 97.5 [facility] Respiratory Effort 1 1 [facility] Respiratory Rate 15 15 [facility] Pulse Assessment Method 4 4 [facility] Pulse Rate 83 83 [facility] Height (Calculated Centimeters) 154.94 154. 94 [facility] Height 61 61 [facility] Blood Pressure 109/75 109/75 [facility] Body Mass Index (BMI) 23.4 23.4 [facility] Weight Measurement Method 1 1 [facility] Weight (Calculated Kilograms) 56.25 56.25 [facility] Weight 1983 1983 [facility] Temperature Source 7 7 [facility] Temperature 96.9 96.9 [facility] Respiratory Effort 1 1 [facility] Respiratory Rate 15 15 [facility] Pulse Assessment Method 4 4 [facility] Pulse Rate 90 90 [facility] Height (Calculated Centimeters) 154.94 154. 94 [facility] Height 61 61 [facility] Blood Pressure 104/67 104/67 [facility] Body Mass Index (BMI) 23.4 23.4 [facility] Weight Measurement Method 1 1 [facility] Weight (Calculated Kilograms) 56.25 56.25 [facility] Weight 1983 1983 [facility] Temperature Source 7 7 [facility] Temperature 97.8 97.8 [facility] Respiratory Effort 1 1 [facility] Respiratory Rate 17 17 [facility] Pulse Assessment Method 4 4 [facility] Pulse Rate 93 93 [facility] Height (Calculated Centimeters) 154.94 154. 94 [facility] Height 61 61 [facility] Blood Pressure 110/87 110/87 [facility] Body Mass Index (BMI) 23.4 23.4 [facility] Weight (Calculated Kilograms) 72.12 72.12 [facility] Height (Calculated Centimeters) 154.94 154. 94 [facility] Body Mass Index (BMI) 30.0 30.0 [facility] Patient Treatment Plan of Care Planned Activity Planned Date Details Description Data Source (s) Sertraline 50 MG Oral Tablet [Zoloft] 01/18/2021 12:00:00 AM [facility] Risperidone 3 MG Oral Tablet [Risperdal] 01/18/2021 12:00:00 AM [facility] Prazosin 2 MG Oral Capsule [Minipress] 01/18/2021 12:00:00 AM [facility] olanzapine 15 MG Oral Tablet 01/18/2021 12:00:00 AM [facility] Multi-Vit/Mineral (Multivitamin Tablet) 1 TAB TAB 01/18/2021 12: 00:00 AM [facility] Mirtazapine 15 MG Oral Tablet 01/18/2021 12:00:00 AM [facility] gabapentin 600 MG Oral Tablet 01/18/2021 12:00:00 AM [facility] doxycycline hyclate 100 MG Oral Tablet 01/18/2021 12:00:00 AM [facility] Docusate Sodium 100 MG Oral Capsule [Colace] 01/18/2021 12:00:00 AM [facility] Buprenorphine 8 MG / Naloxone 2 MG Oral Strip [Suboxon e] 01/18/2021 12:00:00 AM [facility] Metronidazole 500 MG Oral Tablet 09/22/2020 12:00:00 AM EST [facility] ([facility]) 168 HR Ethinyl Estradiol 0.68897 MG/HR / norelgestromin 0.89567 MG/HR Transdermal Patch [Xulane] 03/03/2020 12:[facility] Trazodone Hydrochloride 100 MG Oral Tablet [facility] ([facility]) topiramate 50 MG Oral Tablet [facility] ([facility]) topiramate 25 MG Oral Tablet [facility] ([facility]) Sulfamethoxazole 800 MG / Trimethoprim 160 MG Oral Tablet [facility] ([facility]) Sertraline 50 MG Oral Tablet [facility] ([facility]) Sertraline 25 MG Oral Tablet [facility] ([facility]) Sertraline 100 MG Oral Tablet [facility] ([facility]) Risperidone 3 MG Oral Tablet [facility] ([facility]) Risperidone 2 MG Oral Tablet [facility] ([facility]) Prazosin 2 MG Oral Capsule A THENA ([facility]) Prazosin 1 MG Oral Capsule A THENA ([facility]) 24 HR paliperidone 6 MG Extended Release Oral Tablet [facility] ([facility]) 24 HR paliperidone 3 MG Extended Release Oral Tablet [facility] ([facility]) 24 HR Oxybutynin chloride 5 MG Extended Release Oral Tablet [facility] ([facility]) 24 HR Oxybutynin chloride 10 MG Extended Release Oral Tablet [facility] ([facility]) olanzapine 5 MG Oral Tablet [facility] ([facility]) olanzapine 5 MG Disintegrating Oral Tablet [facility] ([facility]) benztropine mesylate 1 MG Oral Tablet [facility] ([facility]) atomoxetine 40 MG Oral Capsule [place] ([facility]) atomoxetine 10 MG Oral Capsule [place] ([facility]) aripiprazole 2 MG Oral Tablet [place] ([facility]) Amitriptyline Hydrochloride 25 MG Oral Tablet [place] ([facility]) Sertraline 50 MG Oral Tablet [Zoloft] [facility] Risperidone 3 MG Oral Tablet [Risperdal] [facility] Prazosin 2 MG Oral Capsule [Minipress] [facility]. olanzapine 15 MG Oral Tablet [facility] Mirtazapine 15 MG Oral Tablet [facility] gabapentin 600 MG Oral Tablet [facility] Docusate Sodium 100 MG Oral Capsule [Colace] [facility]. Buprenorphine 8 MG / Naloxone 2 MG Oral Strip [Suboxone] [facility]. topiramate 50 MG Oral Tablet [Topamax] [facility] ([facility]) olanzapine 10 MG Oral Tablet [facility] ([facility]) Naproxen 500 MG Oral Tablet [facility] ([facility]) Mirtazapine 15 MG Oral Tablet [facility] ([facility]) Metronidazole 500 MG Oral Tablet [facility] ([facility]) Loratadine 10 MG Oral Tablet [facility] ([facility]) Levothyroxine Sodium 0.05 MG Oral Tablet [facility] ([facility]) Hydroxyzine Hydrochloride 50 MG Oral Tablet [facility] ([facility]) Hydroxyzine Hydrochloride 25 MG Oral Tablet [facility] ([facility]) Haloperidol 2 MG Oral Tablet [facility] ([facility]) Haloperidol 10 MG Oral Tablet [facility] ([facility]) gabapentin 400 MG Oral Capsule [facility] ([facility]) gabapentin 300 MG Oral Capsule [facility] ([facility]) 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 MG Oral Capsule [facility] ([facility]) Fluoxetine 10 MG Oral Capsule [facility] ([facility]) doxycycline hyclate 100 MG Oral Tablet [facility] ([facility]) Docusate Sodium 100 MG Oral Capsule [facility] ([facility]) Divalproex Sodium 500 MG Delayed Release Oral Tablet [facility] ([facility]) Divalproex Sodium 250 MG Delayed Release Oral Tablet [facility] ([facility]) Cephalexin 500 MG Oral Capsule [facility] ([facility]) buspirone hydrochloride 7.5 MG Oral Tablet [facility] ([facility])
[2021-06-12 11:14] LABS: HEMATOCRIT 40.4 % (36.0-47.0); HEMOGLOBIN 13.7 g/dl (12.0-15.5); MEAN CORPUSCULAR HGB CONC 33.9 g/dl (32.0-36.5); MEAN CORPUSCULAR VOLUME 91.4 fl (80.0-96.0); PLATELET COUNT, AUTOMATED 197 10^3/uL (150-450); RED BLOOD COUNT 4.42 10^6/uL (4.00-5.40); WHITE BLOOD COUNT 7.5 10^3/uL (4.0-10.0)
[2021-06-12 11:45] LABS: HCG, SERUM QUALITATIVE NEGATIVE (NEGATIVE)
[2021-06-12 11:56] LABS: AMPHETAMINES LEVEL URINE NEGATIVE (NEGATIVE); BARBITURATES URINE NEGATIVE (NEGATIVE); BENZODIAZEPINES URINE NEGATIVE (NEGATIVE); CANNABINOIDS URINE NEGATIVE (NEGATIVE); COCAINE METABOLITE URINE NEGATIVE (NEGATIVE); METHADONE URINE NEGATIVE (NEGATIVE); OPIATES URINE NEGATIVE (NEGATIVE); PHENCYCLIDINE URINE NEGATIVE (NEGATIVE)
[2021-06-12 12:01] LABS: ACETAMINOPHEN LEVEL < 2.0 UG/ML (10.0-30.0); ALBUMIN 4.2 GM/DL (3.2-5.2); ALT/SGPT 50 U/L (12-78); BILIRUBIN,DIRECT 0.1 MG/DL (0.0-0.2); BILIRUBIN,TOTAL 0.2 MG/DL (0.2-1.0); BLOOD UREA NITROGEN 9 MG/DL (7-18); CALCIUM LEVEL 9.8 MG/DL (8.5-10.1); CARBON DIOXIDE LEVEL 21 MEQ/L (21-32); CHLORIDE LEVEL 107 MEQ/L (98-107); ETHYL ALCOHOL (ETHANOL) < 0.003 % (0.000-0.010); GLOMERULAR FILTRATION RATE > 60.0 (>60); GLUCOSE, FASTING 114 MG/DL (70-100); POTASSIUM SERUM 3.8 MEQ/L (3.5-5.1); SALICYLATE LEVEL 2.5 MG/DL (5.0-30.0); SODIUM LEVEL 136 MEQ/L (136-145); TOTAL PROTEIN 8.7 GM/DL (6.4-8.2)
[2021-06-12 12:06] LABS: RSV AMPLIFICATION NEGATIVE (NEGATIVE)
--- OUTSIDE RECORDS SUMMARY | 2021-06-12 13:24 | CCD ---
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 Progress NotePatient NoteCOUNS LIZA WENT BACK [...] 1408 by Cherrie,TriciaTranscribed on 01/16/21 1408 by CherrieTriciaSign by CherrieNuzhat on 01/16/21 1413Sign by: Cherrie,Nuzhat Name Value Range Interpretation Code Description Data Kassy rce(s) Supporting Document(s) ID Date Data Source [id number] 01/16/2021 02:04:00 PM EDT [facility] Counselor Progress NotePatient NoteCOUNS LIZA WENT AND [...] rce(s) Supporting Document(s) ID Date Data Source [id number] 01/15/2021 04:16:00 PM [facility] Counselor Progress NotePatient NoteCOUNS ELOR [...] rce(s) Supporting Document(s) ID Date Data Source [id number] 01/15/2021 01:59:00 PM EDT [facility] Counselor Progress NotePatient NoteBETHANIE HUGO [facility], CONFIRMED A 4 WEEK WAIT LIST FOR [facility]PAT[facility].Dictated on 01/15/21 1359 by Ike BlasTranscribed on 01/15/21 1359 by Zach Blas by Ike Blas on 01/15/21 1400Sign by: Ike Blas Name Value Range Interpretation Code Description Data Kassy rce(s) Supporting Document(s) ID Date Data Source [id number] 01/15/2021 01:36:00 PM EDT [facility] Counselor Progress NotePatient NoteCONFI RMED BED AT [facility] 01/22/21 - ADMISSION TIME PENDING.Dictated on 01/15/21 1336 by Ike BlasTranscribed on 01/15/21 1336 by Zach Blas by Ike Blas on 01/15/21 1337Sign by: Ike Blas Name Value Range Interpretation Code Description Data Kassy rce(s) Supporting Document(s) ID Date Data Source [id number] 01/14/2021 03:22:00 PM EDT [facility] Counselor Progress NotePatient NoteCHUYITA DE JESUS HAD [...] rce(s) Supporting Document(s) ID Date Data Source [id number] 01/14/2021 03:00:00 PM EDT [facility] [employer] Counselor Progress NotePatient NoteCHUYITA DE JESUS WENT TO SEE IF PATIENT WAS UP TO DO EVALUATION AND SHE WASSLEEPING.Dictated on 01/14/21 1500 by Cherrie,TriciaTranscribed on 01/14/21 1500 by Cherrie,TriciaSign by Cherrie,Nuzhat on 01/14/21 1501Sign by: Cherrie,Nuzhat Name Value Range Interpretation Code Description Data Kassy rce(s) Supporting Document(s) ID Date Data Source [id number] 01/14/2021 01:44:00 PM EDT [facility]. Counselor Progress NotePatient NoteCHUYITA DE JESUS WENT INTO PATIENTS ROOM AT 12:30 TO DO THE EVALUATION, THEPATIENT WAS SLEEPING SO COUNSELOR HAD LEFT THE PATIENT TO SLEEP.COUNSELOR CAME BACK TO HER OFFICE AND REPORTED PATIENT STATUS TO ALFREDA.NURSING BLACKENER, SABINE PECK, WOKE THE PATIENT AND REQUESTED [...] rce(s) Supporting Document(s) ID Date Data Source [id number] 01/14/2021 09:26:00 AM EDT [facility]. Counselor Progress NotePatient NoteCOUNS LIZA ALONG WITH BUSINESS ANALYST [employer] WENT INTO PATIENTS ROOM AND ASKED HOW SHE WASDOING. PATIENT RESPONDED SHE WAS DOING OK. COUNSELOR INFORMED PATIENTTHAT SHE WAS HERE IF SHE NEEDED HER TO TALK OR ANYTHING.Dictated on 01/14/21 0926 by Cherrie,TriciaTranscribed on 01/14/21 0926 by Cherrie,TriciaSign by Cherrie,Nuzhat on 01/14/21 0933Sign by: Cherrie,Nuzhat Name Value Range Interpretation Code Description Data Kassy rce(s) Supporting Document(s) ID Date Data Source [id number] 01/13/2021 04:10:00 PM EDT [facility] Name Value Range Interpretation Code Description Data Kassy rce(s) Supporting Document(s) SARS-CoV-2 (COVID-19) RNA [Presence] in Respiratory specimen by IRIS with probe detection Negative; No COVID-2 RNA detected by PCR. [facility] This lab was ordered by [facility] and reported by . ID Date Data Source [id number] 12/08/2020 03:19:00 PM EDT [facility]) Name Value Range Interpretation Code Description Data Kassy rce(s) Supporting Document(s) influenza A amplification negative negative Influenza a Amplification [facility]) influenza B amplification negative negative Influenza B Amplification [facility]) RSV amplification negative negative RSV Amplification [facility]) sars covid-19 amplification negative negative Sars Cov id-19 Amplification [facility] ([facility]) ID Date Data Source [id number] 12/08/2020 03:19:00 PM EDT [facility] Name Value Range Interpretation Code Description Data Kassy rce(s) Supporting Document(s) SARS coronavirus 2 RNA [Presence] in Res piratory specimen by IRIS with probe detection NEGATIVE [facility] This lab was ordered by [facility] a nd reported by [facility]. ID Date Data Source [id number] 12/08/2020 09:19:00 AM EDT [facility] ([facility]) Name Value Range Interpretation Code Description Data Kassy rce(s) Supporting Document(s) thyroid stimulating hormone 1.050 uIU/mL 0.358-3.740 Thyroid Stimulating Hormone [facility]) ID Date Data Source [id number] 12/08/2020 09:19:00 AM EDT [facility]) Name Value Range Interpretation Code Description Data Kassy rce(s) Supporting Document(s) acetaminophen level < 2.0 10.0-30.0 Below low normal Acetaminop hen Level [facility]) ID Date Data Source [id number] 12/08/2020 09:19:00 AM EDT [facility]) Name Value Range Interpretation Code Description Data Kassy rce(s) Supporting Document(s) salicylate level 2.7 mg/dL 5.0-30.0 Below low normal Salicylate Le jose [facility]) ID Date Data Source [id number] 12/08/2020 09:19:00 AM EDT [facility]) Name Value Range Interpretation Code Description Data Kassy rce(s) Supporting Document(s) ethyl alcohol (ethanol) < 0.003 0.000-0.010 Ethyl Alcoh ol (Ethanol) [facility]) ID Date Data Source [id number] 12/08/2020 09:19:00 AM EDT [facility] ([facility]) Name Value Range Interpretation Code Description Data Kassy rce(s) Supporting Document(s) glucose, fasting 93 mg/dL 70-100 Glucose, Fasting AT [facility] ([facility]) blood urea nitrogen 10 mg/dL 7-18 Blood Urea Nitro gen [facility] ([facility]) creatinine for GFR 0.61 mg/dL 0.55-1.30 Creatinine for GF R [facility] ([facility]) glomerular filtration rate > 60.0 >60 Glomerula r Filtration Rate [facility] ([facility]) sodium level 140 mEq/L 136-145 Sodium Level [facility] ([facility]) chloride level 111 mEq/L 98-107 Above high normal Chloride Level [facility] ([facility]) potassium serum 4.1 mEq/L 3.5-5.1 Potassium Serum AT[facility] NA ([facility]) anion gap 7 mEq/L 8-16 Below low normal Anion Gap [facility] ( [facility]) calcium level 9.9 mg/dL 8.5-10.1 Calcium Level [facility] ( [facility]) carbon dioxide level 22 mEq/L 21-32 Carbon Dioxide Level [facility] ([facility]) ID Date Data Source [id number] 12/08/2020 09:19:00 AM EDT [facility]) Name Value Range Interpretation Code Description Data Kassy rce(s) Supporting Document(s) AST/SGOT 28 U/L 7-37 AST/SGOT [facility] ([facility]) alkaline phosphatase 90 U/L 45-117 Alkaline Phosph atase [facility] ([facility]) ALT/SGPT 26 U/L 12-78 ALT/SGPT [facility] ([facility]) bilirubin,total 0.3 mg/dL 0.2-1.0 Bilirubin,total AT[facility] ([facility]) bilirubin,direct < 0.1 0.0-0.2 Bilirubin,direct AT [facility]) albumin 3.9 gm/dL 3.2-5.2 Albumin [facility] ([facility]) total protein 8.4 gm/dL 6.4-8.2 Above high normal Total Protein A [facility] ([facility]) albumin/globulin ratio 1.2-2.2 Below low normal Albumin /globulin Ratio [facility] ([facility]) ID Date Data Source [id number] 12/08/2020 09:19:00 AM EDT [facility] ([facility]) Name Value Range Interpretation Code Description Data Kassy rce(s) Supporting Document(s) white blood count 9.1 10 4.0-10.0 White Blood Count [facility] ([facility]) red blood count 4.31 10 4.00-5.40 Red Blood Count [facility] ([facility]) hemoglobin 12.8 g/dL 12.0-15.5 Hemoglobin [facility] ([facility]) hematocrit 39.2 % 36.0-47.0 Hematocrit [facility] ([facility]) mean corpuscular volume 91.0 fL 80.0-96.0 Mean Corpusc ular Volume [facility] ([facility]) mean corpuscular hemoglobin 29.7 pg 27.0-33.0 Mean Cor puscular Hemoglobin [facility] ([facility]) mean corpuscular HGB conc 32.7 g/dL 32.0-36.5 Mean Corpu scular HGB Conc [facility] ([facility]) platelet count, automated 276 10 150-450 Platelet C ount, Automated [facility] ([facility]) red cell distribution width 13.7 % 11.5-14.5 Red Cell Distribution Width [facility] ([facility]) nucleated red blood cell % 0.0 % 0-0 Nucleated Red Blood Cell % [facility] ([facility]) ID Date Data Source [id number] 12/08/2020 08:11:00 AM EDT [facility]) Name Value Range Interpretation Code Description Data Kassy rce(s) Supporting Document(s) amphetamines level urine positive negative Above high andrea l Amphetamines Level Urine [facility] ([facility]) barbiturates urine negative negative Barbiturates Urin e [facility] ([facility]) benzodiazepines urine negative negative Benzodiazepine s Urine [facility] ([facility]) cannabinoids urine positive negative Above high normal Cannabinoi ds Urine [facility] ([facility]) cocaine metabolite urine negative negative Cocaine Met abolite Urine [facility] ([facility]) opiates urine negative negative Opiates Urine [facility] ( [facility]) methadone urine negative negative Methadone Urine [facility] NA ([facility]) phencyclidine urine negative negative Phencyclidine Ur ine [facility] ([facility]) ID Date Data Source [id number] 12/07/2020 09:14:00 AM EDT [facility]) Name Value Range Interpretation Code Description Data Kassy rce(s) Supporting Document(s) istat troponin 0.01 NG/mL 0.00-0.08 Istat Troponin [facility] ([facility]) ID Date Data Source [id number] 12/07/2020 09:12:00 AM EDT [facility] ([facility]) Name Value Range Interpretation Code Description Data Kassy rce(s) Supporting Document(s) istat HCT 38.0 % 38.0-51.0 Istat HCT [facility] ([facility]) istat sodium 138 mEq/L 136-145 Istat Sodium [facility] ([facility]) istat glucose 111 mg/dL 70-105 Above high normal Istat Glucose A [facility] ([facility]) istat Ca++ 4.7 mg/dL 4.5-5.3 Istat Ca++ [facility] ([facility]) istat potassium 3.9 mEq/L 3.5-5.1 Istat Potassium AT[facility] NA ([facility]) istat CO2 23.0 mm/L 23.0-27.0 Istat CO2 [facility] ([facility]) istat chloride 105 mEq/L 98-109 Istat Chloride [facility] ([facility]) istat BUN 9 mg/dL 8-26 Istat BUN [facility] ([facility]) istat creatinine 0.6 mg/dL 0.6-1.3 Istat Creatinine AT [facility] ([facility]) ID Date Data Source [id number] 12/01/2020 03:02:00 AM EDT [facility] Name Value Range Interpretation Code Description Data Kassy rce(s) Supporting Document(s) SARS coronavirus 2 RNA [Presence] in Res piratory specimen by [facility] with probe detection NEGATIVE [facility] This lab was ordered by [facility] a nd reported by [facility]. ID Date Data Source [id number] 09/15/2020 03:35:50 PM EST [facility] ([facility]) Name Value Range Interpretation Code Description Data Kassy rce(s) Supporting Document(s) Color: yellow; Glucose: nega tive; Blood: small; pH: 6.0; Protein: small; Nitrite: positive; Leukocytes: moderate Abnormal (appl ies to non-numeric results) Urine Dipstick [facility] ([facility] ID Date Data Source [id number] 09/15/2020 03:35:12 PM EST [facility] Name Value Range Interpretation Code Description Data Kassy rce(s) Supporting Document(s) NegativeLot: [id number]: 03/31/2022 High Sensitivity Urine Test [facility] ([facility]) ID Date Data Source [id number] 06/02/2020 02:08:00 PM EST [facility] ([facility]) Name Value Range Interpretation Code Description Data Kassy rce(s) Supporting Document(s) alkaline phosphatase 75 U/L 45-117 Alkaline Phosph atase [facility]) ALT/SGPT 74 U/L 12-78 ALT/SGPT [facility] ([facility]) AST/SGOT 58 U/L 7-37 Above high normal AST/SGOT [facility] ([facility]) total protein 7.7 gm/dL 6.4-8.2 Total Protein [facility] ( [facility]) bilirubin,total 0.4 mg/dL 0.2-1.0 Bilirubin,total ATHE NA ([facility]) bilirubin,direct 0.1 mg/dL 0.0-0.2 Bilirubin,direct AT [facility] ([facility]) albumin/globulin ratio 1.2-2.2 Below low normal Albumin /globulin Ratio [facility] ([facility]) albumin 3.7 gm/dL 3.2-5.2 Albumin [facility] ([facility]) ID Date Data Source [id number] 06/02/2020 02:08:00 PM EST [facility] ([facility]) Name Value Range Interpretation Code Description Data Kassy rce(s) Supporting Document(s) amphetamines level urine positive negative Above high andrea l Amphetamines Level Urine [facility] ([facility]) benzodiazepines urine negative negative Benzodiazepine s Urine [facility] ([facility]) barbiturates urine negative negative Barbiturates Urin e [facility] ([facility]) cannabinoids urine positive negative Above high normal Cannabinoi ds Urine [facility] ([facility]) cocaine metabolite urine negative negative Cocaine Met abolite Urine [facility] ([facility]) methadone urine positive negative Above high normal Methadone Uri ne [facility] ([facility]) phencyclidine urine negative negative Phencyclidine Ur ine [facility] ([facility]) opiates urine positive negative Above high normal Opiates Urine A [facility] ([facility]) ID Date Data Source [id number] 06/02/2020 02:08:00 PM EST [facility] ([facility]) Name Value Range Interpretation Code Description Data Kassy rce(s) Supporting Document(s) white blood count 5.8 10 4.0-10.0 White Blood Count [facility] ([facility]) red blood count 3.95 10 4.00-5.40 Below low normal Red Blood Coun t [facility] ([facility]) hemoglobin 12.2 g/dL 12.0-15.5 Hemoglobin [facility] ([facility]) mean corpuscular volume 94.2 fL 80.0-96.0 Mean Corpusc ular Volume [facility] ([facility]) hematocrit 37.2 % 36.0-47.0 Hematocrit [facility] ([facility]) mean corpuscular hemoglobin 30.9 pg 27.0-33.0 Mean Cor puscular Hemoglobin [facility] ([facility]) mean corpuscular HGB conc 32.8 g/dL 32.0-36.5 Mean Corpu scular HGB Conc [facility] ([facility]) red cell distribution width 12.8 % 11.5-14.5 Red Cell Distribution Width [facility] ([facility]) nucleated red blood cell % 0.0 % 0-0 Nucleated Red Blood Cell % [facility] ([facility]) platelet count, automated 195 10 150-450 Platelet C ount, Automated [facility] ([facility]) ID Date Data Source [id number] 06/02/2020 02:08:00 PM EST [facility] ([facility]) Name Value Range Interpretation Code Description Data Kassy rce(s) Supporting Document(s) HCG, serum qualitative negative negative HCG, Serum Qu alitative [facility] ([facility]) ID Date Data Source [id number] 06/02/2020 02:08:00 PM EST [facility] ([facility]) Name Value Range Interpretation Code Description Data Kassy rce(s) Supporting Document(s) thyroid stimulating hormone 1.690 uIU/mL 0.358-3.740 Thyroid Stimulating Hormone [facility] ([facility]) ID Date Data Source [id number] 06/02/2020 02:08:00 PM EST [facility] ([facility]) Name Value Range Interpretation Code Description Data Kassy rce(s) Supporting Document(s) acetaminophen level < 2.0 10.0-30.0 Below low normal Acetaminop hen Level [facility] ([facility]) ID Date Data Source [id number] 06/02/2020 02:08:00 PM EST [facility] ([facility]) Name Value Range Interpretation Code Description Data Kassy rce(s) Supporting Document(s) salicylate level < 1.7 5.0-30.0 Below low normal Salicylate Le jose [facility] ([facility]) ID Date Data Source [id number] 06/02/2020 02:08:00 PM EST [facility] ([facility]) Name Value Range Interpretation Code Description Data Kassy rce(s) Supporting Document(s) ethyl alcohol (ethanol) < 0.003 0.000-0.010 Ethyl Alcoh ol (Ethanol) [facility] ([facility]) ID Date Data Source [id number] 06/02/2020 02:08:00 PM EST [facility] ([facility]) Name Value Range Interpretation Code Description Data Kassy rce(s) Supporting Document(s) creatinine for GFR 0.71 mg/dL 0.55-1.30 Creatinine for GF R [facility] ([facility]) blood urea nitrogen 7 mg/dL 7-18 Blood Urea Nitro gen ROBBINS ([facility]) glucose, fasting 82 mg/dL 70-100 Glucose, Fasting AT [facility]) glomerular filtration rate > 60.0 >60 Glomerula r Filtration Rate ROBBINS ([facility]) sodium level 139 mEq/L 136-145 Sodium Level SUSI ([facility]) potassium serum 3.6 mEq/L 3.5-5.1 Potassium Serum ATH NA ([facility]) anion gap 6 mEq/L 8-16 Below low normal Anion Gap ROBBINS ( [facility]) carbon dioxide level 24 mEq/L 21-32 Carbon Dioxide Level [facility]) chloride level 109 mEq/L 98-107 Above high normal Chloride Level ROBBINS ([facility]) calcium level 8.8 mg/dL 8.5-10.1 Calcium Level ROBBINS ( [facility]) ID Date Data Source [id number] 06/01/2020 01:01:00 PM EST SUSI ([facility]) Name Value Range Interpretation Code Description Data Kassy rce(s) Supporting Document(s) amphetamines level urine positive negative Above high andrea l Amphetamines Level Urine SUSI ([facility]) cocaine metabolite urine positive negative Above high andrea l Cocaine Metabolite Urine SUSI ([facility]) cannabinoids urine positive negative Above high normal Cannabinoi ds Urine SUSI ([facility]) benzodiazepines urine negative negative Benzodiazepine s Urine SUSI ([facility]) barbiturates urine negative negative Barbiturates Urin e SUSI ([facility]) phencyclidine urine negative negative Phencyclidine Ur ine SUSI ([facility]) methadone urine positive negative Above high normal Methadone Uri ne SUSI ([facility]) opiates urine positive negative Above high normal Opiates Urine A THENA ([facility]) ID Date Data Source [id number] 06/01/2020 01:01:00 PM EST SUSI ([facility]) Name Value Range Interpretation Code Description Data Kassy rce(s) Supporting Document(s) HCG, serum qualitative negative negative HCG, Serum Qu alitative SUSI ([facility]) ID Date Data Source [id number] 06/01/2020 01:01:00 PM EST SUSI ([facility]) Name Value Range Interpretation Code Description Data Kassy rce(s) Supporting Document(s) thyroid stimulating hormone 4.060 uIU/mL 0.358-3.740 Above high no rmal Thyroid Stimulating Hormone SUSI ([facility]) ID Date Data Source [id number] 06/01/2020 01:01:00 PM EST SUSI ([facility]) Name Value Range Interpretation Code Description Data Kassy rce(s) Supporting Document(s) acetaminophen level < 2.0 10.0-30.0 Below low normal Acetaminop hen Level ROBBINS ([facility]) ID Date Data Source [id number] 06/01/2020 01:01:00 PM EST SUSI ([facility]) Name Value Range Interpretation Code Description Data Kassy rce(s) Supporting Document(s) salicylate level < 1.7 5.0-30.0 Below low normal Salicylate Le jose SUSI ([facility]) ID Date Data Source [id number] 06/01/2020 01:01:00 PM EST SUSI ([facility]) Name Value Range Interpretation Code Description Data Kassy rce(s) Supporting Document(s) ethyl alcohol (ethanol) < 0.003 0.000-0.010 Ethyl Alcoh ol (Ethanol) ROBBINS ([facility]) ID Date Data Source [id number] 06/01/2020 01:01:00 PM EST ROBBINS ([facility]) Name Value Range Interpretation Code Description Data Kassy rce(s) Supporting Document(s) glucose, fasting 129 mg/dL 70-100 Above high normal Glucose, Fas ting ROBBINS ([facility]) blood urea nitrogen 12 mg/dL 7-18 Blood Urea Nitro gen SUSI ([facility]) creatinine for GFR 0.83 mg/dL 0.55-1.30 Creatinine for GF R SUSI ([facility]) sodium level 136 mEq/L 136-145 Sodium Level ROBBINS (No [facility]) glomerular filtration rate > 60.0 >60 Glomerula r Filtration Rate ROBBINS ([facility]) potassium serum 3.6 mEq/L 3.5-5.1 Potassium Serum ATH NA ([facility]) chloride level 103 mEq/L 98-107 Chloride Level ROBBINS ([facility]) carbon dioxide level 23 mEq/L 21-32 Carbon Dioxide Level ROBBINS ([facility]) anion gap 10 mEq/L 8-16 Anion Gap SUSI ([facility]) calcium level 8.8 mg/dL 8.5-10.1 Calcium Level SUSI ( [facility]) ID Date Data Source [id number] 06/01/2020 01:01:00 PM EST SUSI ([facility]) Name Value Range Interpretation Code Description Data Kassy rce(s) Supporting Document(s) AST/SGOT 61 U/L 7-37 Above high normal AST/SGOT SUSI ([facility]) ALT/SGPT 89 U/L 12-78 Above high normal ALT/SGPT SUSI ([facility]) alkaline phosphatase 80 U/L 45-117 Alkaline Phosph atase SUSI ([facility]) bilirubin,total 0.3 mg/dL 0.2-1.0 Bilirubin,total ATHE ([facility]) total protein 8.4 gm/dL 6.4-8.2 Above high normal Total Protein A [facility] ([facility]) bilirubin,direct 0.1 mg/dL 0.0-0.2 Bilirubin,direct AT [facility]) albumin/globulin ratio 1.2-2.2 Below low normal Albumin /globulin Ratio SUSI ([facility]) albumin 4.2 gm/dL 3.2-5.2 Albumin SUSI ([facility]) ID Date Data Source [id number] 06/01/2020 01:01:00 PM EST SUSI ([facility]) Name Value Range Interpretation Code Description Data Kassy rce(s) Supporting Document(s) white blood count 5.6 10 4.0-10.0 White Blood Count SUSI ([facility]) red blood count 4.07 10 4.00-5.40 Red Blood Count ATHE NA ([facility]) hemoglobin 12.4 g/dL 12.0-15.5 Hemoglobin SUSI ([facility]) hematocrit 37.8 % 36.0-47.0 Hematocrit SUSI ([facility]) mean corpuscular hemoglobin 30.5 pg 27.0-33.0 Mean Cor puscular Hemoglobin SUSI ([facility]) mean corpuscular HGB conc 32.8 g/dL 32.0-36.5 Mean Corpu scular HGB Conc SUSI ([facility]) mean corpuscular volume 92.9 fL 80.0-96.0 Mean Corpusc ular Volume SUSI ([facility]) neutrophils % 39.6 % 36.0-66.0 Neutrophils % ROBBINS ( [facility]) red cell distribution width 12.8 % 11.5-14.5 Red Cell Distribution Width SUSI ([facility]) platelet count, automated 205 10 150-450 Platelet C ount, Automated SUSI ([facility]) mono % 8.0 % 0.0-5.0 Above high normal [place] % ROBBINS ([facility]) lymph % 48.6 % 24.0-44.0 Above high normal Lymph % ROBBINS ([facility]) baso % 0.9 % 0.0-1.0 Baso % ROBBINS ([facility]) eos % 2.7 % 0.0-3.0 Eos % ROBBINS ([facility]) immature granulocyte % 0.2 % 0-3.0 Immature Gran ulocyte % ROBBINS ([facility]) nucleated red blood cell % 0.0 % 0-0 Nucleated Red Blood Cell % ROBBINS ([facility]) neutrophils # 2.2 10 1.5-8.5 Neutrophils # ROBBINS ( [facility]) lymph # 2.7 10 1.5-5.0 Lymph # SUSI ([facility]) mono # 0.5 10 0.0-0.8 [place] # SUSI ([facility]) eos # 0.2 10 0.0-0.5 Eos # SUSI ([facility]) baso # 0.1 10 0.0-0.2 Baso # SUSI ([facility]) ID Date Data Source [id number] 05/07/2020 09:44:00 AM EDT [facility] Name Value Range Interpretation Code Description Data Kassy rce(s) Supporting Document(s) Free T4 (Free Thyroxine) 0.76-1.46 Normal (applies to non -numeric results) [facility] ID Date Data Source [id number] 05/07/2020 09:44:00 AM EDT [facility] Name Value Range Interpretation Code Description Data Kassy rce(s) Supporting Document(s) Thyroid Stimulate Hormone TSH 0.358-3.740 Above high andrea l [facility] ID Date Data Source [id number] 04/30/2020 01:37:00 PM EDT [facility] Name: CELY [facility] Rec #: [id number] 14 : 1985 Age/Sex: 34F Date of Service: 04/30/20 DISPOSITION SUMMARY Discharge Summary [facility] Name:Cely [place] Emergency Department Age:34 yrs [...] Attending Physician: Stephen Woods MD Private MD: Daliab, Provider Mid Level Provider: Eder Willard PA [...] Discharge Instruction: Discharge Summary Sheet, Constipation, Adult, Sbaj-pf-Sucp, Medication Reconciliation Name Value Range Interpretation Code Description Data Kassy rce(s) Supporting Document(s) ID Date Data Source [id number] 04/30/2020 01:37:[address] [facility] Name: CELY [facility]S [facility] Rec #: [id number] 14 : 1985 Age/Sex: 34F Date of Service: 04/30/20 PHYSICIAN CHART Physician Documentation [facility] Name: Cely Sims Age: 34 yrs [...] fevers, headaches, chest pain, shortness of breath.. 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 ROS: 14:40 Constitutional: Negative for fever, chills, [...] rate of 83 zrw1 beats per minute. MD 168ms. QRS 94ms. QT 426. Normal axis. [...] 14:27 Order name: UA.; Complete Time: 15:19 [facility]04/30 15:02 Interpretation: Ur Color Yellow; Ur Clarity Clear; Ur Leuk zrw1 Est 2+ Mod; Ur Nitrite Negative. 04/30 14:39 Order name: POC Urine HCG for ED; Complete Time: 15:19 dk2 04/30 15:54 Interpretation: POC ED Ur HCG NEGATIVE. 04/30 14:27 Order name: Ct Abdomen & Pelvis with Con [facility] 04/30 14:27 Order name: Collect Urine - Clean Catch; Complete Time: 14:33 04/30 14:58 Order name: Urinalysis Auto w/Microscopy [facility] 04/30 14:58 Order name: Urine Culture [facility] 04/30 15:02 Order name: Emergency [...] Discharge Summary Sheet zrw1 - Constipation, Adult, Ndxq-xr-Atzk zrw1 Forms: - Medication Reconciliation zrw1 Prescriptions: - Cephalexin 500 mg Oral Capsule - take 1 capsule by ORAL route every 12 hours for 5 zrw1 days; 10 capsule; Refills: 0, Product Selection Permitted - magnesium citrate Oral Solution - take 1 bottle by ORAL route one time; 1 bottle; zrw1 Refills: 0, Product Selection Permitted Signatures: Dispatcher [facility] Ori Lobo RN RN tp1 Maira Nunez [...] rce(s) Supporting Document(s) ID Date Data Source [id number] 04/30/2020 01:37:[address] [facility] Name: CELY [facility]S [facility] Rec #: [id number] 14 : 1985 Age/Sex: 34F Date of Service: 04/30/20 NURSE CHART Nurse's Notes [facility] Name: Cely Sims Age: 34 yrs Sex: Female : 1985 Arrival Date: 04/30/2020 Time: 13:37 Bed 8 Private MD: Rehab, Provider Diagnosis: Abdominal Pain, Unspecified;Constipation, unspecified Presentation: 04/30 13:38 Acuity: Urgent - 3 awr 13:56 Transition of care: patient was not received from another [facility] setting of care. Presenting complaint: Patient states - She has not had a BM in the last two days despite using suppositories.. Pt is currently at our rehab facility. Have you travelled in the last 30 days? Yes, Where have you travelled? From [place]. . Have you had contact with an [...] Abdomen is distended, The patient reports constipation. 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 Screenin:06 AUDIT 1. How often do you [...] RN RN sj Ori Carlson RN RN tp1 Maira Nunez RN RN dk2 Jesse Hernandez RN RN Yoli Rosado NA NA jmg Willis, Zachary, PA PA zrw1 Loni, Antonina houd Name Value Range Interpretation Code Description Data Kassy rce(s) Supporting Document(s) ID Date Data Source [id number] 05/01/2020 09:27:[address] [facility] Name: CELY SIMS : 1985 A ge/Sex: 34F Ordering Provider: LEA White Med Rec #: [id number] Reg Status:[facility] ER Room #: Date of Service: 04/30/20 Report Number: [id number] cc: PCP None; LEA White Send Report To: Reason for exam: ABDOMINAL PAIN SINUS RHYTHM POSSIBLE RIGHT VENTRICULAR CONDUCTION DELAY BORDERLINE ECG Compared to 04/18/2020 there is no significant change Physician Manager Of Sustainability: Serafin Daugherty M.D. ECG HEART RATE: 83 /min ECG RR INTERVAL: 716 ms ECG P DURATION: 119 ms ECG QRS DURATION: 94 ms ECG MD INTERVAL: 168 ms ECG QT INTERVAL: 426 ms ECG QTC INTERVAL: 466 ms Q-T dispersion: ms ECG P AXIS: 42 deg ECG QRS AXIS: 21 deg ECG T AXIS: 33 deg REPORT SIGNATURE ON FILE 05/01/20927 Reported By: Serafin Daugherty MD, [facility] <<Signature on File>> Exam Date/Time: 04/30/20 1523 Order #: [id number] Dictation Date/Time: 05/01/20926 Transcribed Date/Time: 05/01/20926 Regulatory Lead: LETICIA Name Value Range Interpretation Code Description Data Kassy rce(s) Supporting Document(s) ID Date Data Source [id number] 05/02/2020 10:45:[address] [facility] Name Value Range Interpretation Code Description Data Kassy rce(s) Supporting Document(s) Urine Culture Normal (applies to non-numeric re sults) [facility] ID Date Data Source [id number] 04/30/2020 03:21:00 PM EDT [facility] Name Value Range Interpretation Code Description Data Kassy rce(s) Supporting Document(s) Sodium 142 mmol/L 137-145 Normal (applies to non-numeric resul ts) [facility] Potassium 3.5-5.1 Normal (applies to non-numeric resul ts) [facility] Chloride 113 mmol/L 98-112 Above high normal [facility] Carbon Dioxide CO2 22.0-33.0 Normal (applies to non-numer ic results) [facility] Anion Gap 4.0-11.0 Normal (applies to non-numeric resul ts) [facility] BUN 17 mg/dL 7-17 Normal (applies to non-numeric resul ts) [facility] Creatinine 0.70-1.20 Normal (applies to non-numeric resul ts) [facility] GFR 85 mL/min >60 Normal (applies to non-numeric resul ts) [facility] Result based on MDRD formula. Glucose Level 85 mg/dL 74-99 Normal (applies to non-numeric re sults) [facility] The reference range is only applicable w hen fasting. Calcium-Uncorrected 8.4-10.2 Normal (applies to non-nume claudia results) [facility] Corrected Calcium 8.4-10.2 Normal (applies to non-numeri c results) [facility] Bilirubin,Total 0.2-1.3 Below low normal [facility] SGOT(AST) 37 U/L 14-36 Above high normal [facility] SGPT(ALT) 37 U/L 9-52 Normal (applies to non-numeric resul ts) [facility] Alkaline Phosphatase 81 U/L 38-126 Normal (applies to non-num clementine results) [facility] can increase Alkaline Phosp le vels up to 2 times the normal adult value. Normal values for children and adolescents are 2 to 3 times the normal adult value. Total Protein 6.3-8.2 Normal (applies to non-numeric re sults) [facility] Albumin 3.5-5.0 Normal (applies to non-numeric resul ts) [facility] ID Date Data Source [id number] 04/30/2020 03:21:00 PM EDT [facility] Name Value Range Interpretation Code Description Data Kassy rce(s) Supporting Document(s) C-Reactive Protein,Wide Range <3.00 Normal (applies t o non-numeric results) [facility] ID Date Data Source [id number] 04/30/2020 03:21:00 PM EDT [facility] Name Value Range Interpretation Code Description Data Kassy rce(s) Supporting Document(s) Lipase 85 U/L 73-393 Normal (applies to non-numeric resul ts) [facility] ID Date Data Source [id number] 04/30/2020 03:07:00 PM EDT [facility] Name Value Range Interpretation Code Description Data Kassy rce(s) Supporting Document(s) White Blood Count 4.8-10.8 Normal (applies to non-numeri c results) [facility] Red Blood Count 3.68-5.22 Normal (applies to non-numeric results) [facility] Hemoglobin 11.2-15.7 Normal (applies to non-numeric resul ts) [facility] Hematocrit 34.1-44.9 Normal (applies to non-numeric resul ts) [facility] Mean Corpuscular Volume 81-99 Normal (applies to non- numeric results) [facility] Mean Corpuscular Hemoglobin 27.0-33.0 Normal (appli es to non-numeric results) [facility] Mean Corpuscular HGB Conc 32.0-36.0 Normal (applies to no n-numeric results) [facility] Red Cell Distribution Width 11.5-14.5 Normal (appli es to non-numeric results) [facility] Platelet Count 240 X10 3/uL 130-450 Normal (applies to non-numeric results) [facility] Mean Platelet Volume 9.5-12.7 Normal (applies to non-num clementine results) [facility] Imm Grans% (AUTO) 0 % 0-2 Normal (applies to non-numeri c results) [facility] Neutrophils % (AUTO) 42 % 40-75 Normal (applies to non-num clementine results) [facility] Lymphocytes % (AUTO) 46 % 21-46 Normal (applies to non-num clementine results) [facility] Monocytes % (AUTO) 7 % 5-12 Normal (applies to non-numer ic results) [facility] Eosinophils % (AUTO) 3 % 1-5 Normal (applies to non-num clementine results) [facility] Basophils % (AUTO) 1 % 0-1 Normal (applies to non-numer ic results) [facility] Imm Grans# (AUTO) 0.0-0.5 Normal (applies to non-numeri c results) [facility] Neutrophils # (AUTO) 1.5-8.1 Normal (applies to non-num clementine results) [facility] Lymphocytes # (AUTO) 1.0-3.1 Above high normal [facility] Monocytes # (AUTO) 0.2-1.3 Normal (applies to non-numer ic results) [facility] Eosinophils# (AUTO) 0.0-0.5 Normal (applies to non-nume claudia results) [facility] Basophils # (AUTO) 0.0-0.1 Normal (applies to non-numer ic results) [facility] ID Date Data Source [id number] 04/30/2020 03:15:00 PM EDT [facility] Control Line Present? YPerformed by: Jewels Valles HCG Screen Result: NEGATIVE Name Value Range Interpretation Code Description Data Kassy rce(s) Supporting Document(s) POC ED Urine HCG NEGATIVE Normal (applies to non-numeric results) [facility] ID Date Data Source [id number] 04/30/2020 03:10:00 PM EDT [facility] Name Value Range Interpretation Code Description Data Kassy rce(s) Supporting Document(s) Color,Urine Yellow Normal (applies to non-numeric resu lts) [facility] Clarity,Urine Clear Normal (applies to non-numeric re sults) [facility] Specific [place],Urine 1.001-1.030 Normal (applies to non- numeric results) [facility] PH,Urine 4.6-8.0 Normal (applies to non-numeric resul ts) [facility] Protein,Urine Negative Normal (applies to non-numeric re sults) [facility] Glucose,Urine (UA) Negative Normal (applies to non-numer ic results) [facility] Ketones,Urine Negative Normal (applies to non-numeric re sults) [facility] Blood,Urine Negative Normal (applies to non-numeric resu lts) [facility] Bilirubin,Urine Negative Normal (applies to non-numeric results) [facility] Urobilinogen,Urine Norm 0.2-1 Normal (applies to non-numer ic results) [facility] Leukocyte Esterase,Urine Negative [facility] Nitrite,Urine Negative Normal (applies to non-numeric re sults) [facility] ID Date Data Source [id number] 04/30/2020 03:10:00 PM EDT [facility] Name Value Range Interpretation Code Description Data Kassy rce(s) Supporting Document(s) WBC,URINE 0-10 [facility] RBC,Urine 0-2 Normal (applies to non-numeric resul ts) [facility] Hyaline Casts,Ur None Seen Normal (applies to non-numeric results) [facility] Bacteria,Urine None Seen [facility] Epithelial Cell,Ur None-Few Bhagat [facility] ID Date Data Source [id number] 05/01/2020 06:14:[address] [facility] Name: CELY SIMS : 1985 A ge/Sex: 34F Ordering Provider: LEA White Med Rec #: [id number] Reg Status: DEP ER Room #: Date of Service: 04/30/20 Report Number: [id number] cc:PCP None Send Report To: [id number] CT/CT Abdomen & Pelvis w Con Reason [...] Date/Time: 04/30/20 1541 Transcribed Date/Time: 05/01/20 0614 Regulatory Lead: CHEL Name Value Range Interpretation Code Description Data Kassy rce(s) Supporting Document(s) ID Date Data Source [id number] 04/23/2020 09:55:00 AM [facility] Name Value Range Interpretation Code Description Data Kassy rce(s) Supporting Document(s) Free T4 (Free Thyroxine) 0.76-1.46 Normal (applies to non -numeric results) [facility] ID Date Data Source [id number] 04/23/2020 09:55:00 AM [facility] Name Value Range Interpretation Code Description Data Kassy rce(s) Supporting Document(s) Thyroid Stimulate Hormone TSH 0.358-3.740 Above high andrea l [facility] ID Date Data Source [id number] 04/18/2020 03:52:00 PM EDT [facility] Name: CELY SIMS : 1985 A ge/Sex: 34F Ordering Provider: Stephanie TATE Med Rec #: [id number] Reg Status:ADM IN Room #: 156-2 Date of Service: 04/18/20 Report Number: [id number] cc: Stephanie TATE; Annelise Gray MD Send Report To: Reason for exam: chest pain with cocaine SINUS RHYTHM POSSIBLE LEFT ATRIAL ENLARGEMENT POSSIBLE RIGHT VENTRICULAR CONDUCTION DELAY NONSPECIFIC T-WAVE ABNORMALITY Physician Manager Of Sustainability: Dr. Ben Tillman M.D. ECG HEART RATE: 78 /min ECG RR INTERVAL: 765 ms ECG P DURATION: 115 ms ECG QRS DURATION: 90 ms ECG MD INTERVAL: 143 ms ECG QT INTERVAL: 426 ms ECG QTC INTERVAL: 457 ms Q-T dispersion: ms ECG P AXIS: 71 deg ECG QRS AXIS: 72 deg ECG T AXIS: 32 deg REPORT SIGNATURE ON FILE 04/18/20 1552 Reported By: Ben Tillman MD <<Signature on File>> Exam Date/Time: 04/18/20 0759 Order #: [id number] Dictation Date/Time: 04/18/201551 Transcribed Date/Time: 04/18/201551 Regulatory Lead: LETICIA Name Value Range Interpretation Code Description Data Kassy rce(s) Supporting Document(s) ID Date Data Source [id number] 04/17/2020 11:39:00 AM EDT [facility] Value Range Interpretation Code Description Data Kassy rce(s) Supporting Document(s) Hep Bs Ag Result T-Test Nonreactive Normal (applies to non -numeric results) [facility] ID Date Data Source [id number] 04/17/2020 11:39:00 AM EDT [facility] Value Range Interpretation Code Description Data Kassy rce(s) Supporting Document(s) Syphilis Serology Nonreactive Normal (applies to non-numer ic results) [facility] ID Date Data Source [id number] 04/17/2020 11:39:00 AM EDT [facility] Value Range Interpretation Code Description Data Kassy rce(s) Supporting Document(s) HAVM Nonreactive Normal (applies to non-numeric resu lts) [facility] ID Date Data Source [id number] 04/17/2020 11:39:00 AM EDT [facility] Value Range Interpretation Code Description Data Kassy rce(s) Supporting Document(s) Vitamin D,Total (25OH) 30.0-100.0 Below low normal [facility] Reference Range: <10 ng/mL: Deficien t 10-30 ng/mL: Insufficient 30-100 ng/mL: Sufficient >100 ng/mL: Toxicity possible ID Date Data Source [id number] 04/17/2020 10:44:00 AM EDT [facility] Value Range Interpretation Code Description Data Kassy rce(s) Supporting Document(s) C-Reactive Protein,Wide Range <3.00 Normal (applies t o non-numeric results) [facility] ID Date Data Source [id number] 04/17/2020 10:44:00 AM EDT [facility] Name Value Range Interpretation Code Description Data Kassy rce(s) Supporting Document(s) Magnesium 1.80-2.40 Normal (applies to non-numeric resul ts) [facility] ID Date Data Source [id number] 04/17/2020 10:44:00 AM EDT [facility] Name Value Range Interpretation Code Description Data Kassy rce(s) Supporting Document(s) Sodium 137 mmol/L 137-145 Normal (applies to non-numeric resul ts) [facility] Potassium 3.5-5.1 Normal (applies to non-numeric resul ts) [facility] Chloride 110 mmol/L 98-112 Normal (applies to non-numeric resul ts) [facility] Carbon Dioxide CO2 22.0-33.0 Below low normal [facility] Anion Gap 4.0-11.0 Normal (applies to non-numeric resul ts) [facility] BUN 16 mg/dL 7-17 Normal (applies to non-numeric resul ts) [facility] Creatinine 0.70-1.20 Normal (applies to non-numeric resul ts) [facility] GFR 88 mL/min >60 Normal (applies to non-numeric resul ts) [facility] Result based on MDRD formula. Glucose Level 94 mg/dL 74-99 Normal (applies to non-numeric re sults) [facility] The reference range is only applicable w hen fasting. Calcium-Uncorrected 8.4-10.2 Normal (applies to non-nume claudia results) [facility] Corrected Calcium 8.4-10.2 Normal (applies to non-numeri c results) [facility] Bilirubin,Total 0.2-1.3 Normal (applies to non-numeric results) [facility] Bilirubin,Direct 0.0-0.3 Normal (applies to non-numeric results) [facility] SGOT(AST) 32 U/L 14-36 Normal (applies to non-numeric resul ts) [facility] SGPT(ALT) 35 U/L 9-52 Normal (applies to non-numeric resul ts) [facility] Alkaline Phosphatase 70 U/L 38-126 Normal (applies to non-num clementine results) [facility] can increase Alkaline Phosp le vels up to 2 times the normal adult value. Normal values for children and adolescents are 2 to 3 times the normal adult value. CPK 172 U/L 26-192 Normal (applies to non-numeric resul ts) [facility] Total Protein 6.3-8.2 Normal (applies to non-numeric re sults) [facility] Albumin 3.5-5.0 Normal (applies to non-numeric resul ts) [facility] Thyroid Stimulate Hormone TSH 0.358-3.740 Above high andrea l [facility] ID Date Data Source [id number] 04/17/2020 10:07:00 AM EDT [facility] Name Value Range Interpretation Code Description Data Kassy rce(s) Supporting Document(s) White Blood Count 4.8-10.8 Normal (applies to non-numeri c results) [facility] Red Blood Count 3.68-5.22 Normal (applies to non-numeric results) [facility] Hemoglobin 11.2-15.7 Normal (applies to non-numeric resul ts) [facility] Hematocrit 34.1-44.9 Below low normal [facility] Mean Corpuscular Volume 81-99 Normal (applies to non- numeric results) [facility] Mean Corpuscular Hemoglobin 27.0-33.0 Normal (appli es to non-numeric results) [facility] Mean Corpuscular HGB Conc 32.0-36.0 Normal (applies to no n-numeric results) [facility] Red Cell Distribution Width 11.5-14.5 Normal (appli es to non-numeric results) [facility] Platelet Count 197 X10 3/uL 130-450 Normal (applies to non-numeric results) [facility] Mean Platelet Volume 9.5-12.7 Normal (applies to non-num clementine results) [facility] Imm Grans% (AUTO) 0 % 0-2 Normal (applies to non-numeri c results) [facility] Neutrophils % (AUTO) 46 % 40-75 Normal (applies to non-num clementine results) [facility] Lymphocytes % (AUTO) 42 % 21-46 Normal (applies to non-num clementine results) [facility] Monocytes % (AUTO) 9 % 5-12 Normal (applies to non-numer ic results) [facility] Eosinophils % (AUTO) 3 % 1-5 Normal (applies to non-num clementine results) [facility] Basophils % (AUTO) 1 % 0-1 Normal (applies to non-numer ic results) [facility] Imm Grans# (AUTO) 0.0-0.5 Normal (applies to non-numeri c results) [facility] Neutrophils # (AUTO) 1.5-8.1 Normal (applies to non-num clementine results) [facility] Lymphocytes # (AUTO) 1.0-3.1 Normal (applies to non-num clementine results) [facility] Monocytes # (AUTO) 0.2-1.3 Normal (applies to non-numer ic results) [facility] Eosinophils# (AUTO) 0.0-0.5 Normal (applies to non-nume claudia results) [facility] Basophils # (AUTO) 0.0-0.1 Normal (applies to non-numer ic results) [facility] ID Date Data Source [id number] 04/16/2020 11:13:[address] [facility] Name Value Range Interpretation Code Description Data Kassy rce(s) Supporting Document(s) Respiratory specimen severe acute respir atory syndrome coronavirus 2 (SARS-CoV-2) RNA [facility] ital This lab was ordered by [facility] lola and reported by [facility]. ID Date Data Source [id number] 04/16/2020 03:13:00 PM EDT [facility] Name Value Range Interpretation Code Description Data Kassy rce(s) Supporting Document(s) Opiate Screen,Urine Negative Normal (applies to non-nume claudia results) [facility] Amphetamine Screen,Urine Negative Normal (applies to non -numeric results) [facility] Benzodiazepines Scrn,Ur result Negative N ormal (applies to non-numeric results) [facility] Cocaine Screen,Urine Negative Normal (applies to non-num clementine results) [facility] Methadone Screen,Urine Negative Normal (applies to non-n umeric results) [facility] Cannabinoid Screen, Ur Negative Normal (applies to non-n umeric results) [facility] Therapeutic Drug Ranges for Emergency an d Rehabilitation Threshold Levels (ng/mL) Cocaine 300 Opiates 300 Cannabinoids 50 Barbiturates 200 Benzodiazepine 200 Methadone 300 Amphetamines 1000 All positive find ings are presumptive and unconfirmed. Confirmation of positive results are performed only at request of provider. Unconfirmed results must not be used for non-medical purposes (i.e. pre-employment and legal purposes) ID Date Data Source [id number] 04/16/2020 02:00:00 PM EDT [facility] Name Value Range Interpretation Code Description Data Kassy rce(s) Supporting Document(s) Color,Urine Yellow Normal (applies to non-numeric resu lts) [facility] Clarity,Urine Clear Normal (applies to non-numeric re sults) [facility] Specific [place],Urine 1.001-1.030 Normal (applies to non- numeric results) [facility] PH,Urine 5.0-8.0 Normal (applies to non-numeric resul ts) [facility] Protein,Urine Negative Normal (applies to non-numeric re sults) [facility] Glucose,Urine (UA) Negative Normal (applies to non-numer ic results) [facility] Ketones,Urine Negative Normal (applies to non-numeric re sults) [facility] Blood,Urine Negative Normal (applies to non-numeric resu lts) [facility] Bilirubin,Urine Negative Normal (applies to non-numeric results) [facility] Urobilinogen,Urine Norm 0.2-1 Normal (applies to non-numer ic results) [facility] Leukocyte Esterase,Urine Negative Normal (applies to non -numeric results) [facility] Nitrite,Urine Negative Normal (applies to non-numeric re sults) [facility] ID Date Data Source [id number] 04/16/2020 02:00:00 PM EDT [facility] Name Value Range Interpretation Code Description Data Kassy rce(s) Supporting Document(s) Urine HCG Negative Normal (applies to non-numeric resul ts) [facility] ID Date Data Source [id number] 04/16/2020 11:13:00 AM EDT [facility] First test? UNKNOWNEmployed in healthca re? UNKNOWNSymptomatic per CDC? UNKNOWNHospitalized? UNKNOWNICU? UNKNOWNResident in congregated care? ex care home, [facility] UNKNOWN? UNKNOWN Name Value Range Interpretation Code Description Data Kassy rce(s) Supporting Document(s) SARS-CoV-2 RNA Negative Normal (applies to non-numeric r esults) [facility] Negative results should be treated as [...] Certificate of Accreditation. Factsheets for healthcare providers: https://www.fda.gov/media/505494/download Factsheets for patients: https://www.fda.gov/media/341195/download THIS IS A STATE REPORTABLE COMMUNICABLE DISEASE. Manual entry verified by Jessika Villareal 04/16/20 1112 Procedure Social History Code Duration Value Status Description Data Source(s ) Smoking 04/14/2021 12:00:00 AM EDT Smoker, current status unkn own completed Smoker, current status unknown [facility] ([facility]) 09/15/2020 12:00:00 AM EST Heavy cigarette smoker (20- 39 cigs/day) completed Heavy cigarette smoker (20-39 cigs/day) [facility] ([facility]) Vital Signs ID Date Data Source UNK Name Value Range Interpretation Code Description Data Source(s) Diastolic blood pressure 73 mm[Hg] 73 mm[Hg] [facility] ([facility]) Systolic blood pressure 104 mm[Hg] 104 mm[Hg] A THENA ([facility]) Body weight 1920 [oz_av] 1920 [oz_av] [facility] ([facility]) Body weight 59.239 kg 59.239 kg [facility] ([facility]) Body height 154.94 cm 154.94 cm [facility] ([facility]) Systolic blood pressure 120 mm[Hg] 120 mm[Hg] N [facility] ([facility]) Diastolic blood pressure 77 mm[Hg] 77 mm[Hg] [facility] ([facility]) Body mass index (BMI) [Ratio] 24.68 kg/m2 24.68 kg/m2 [facility] ([facility]) Body height 154.94 cm 154.94 cm [facility] ([facility]) Body weight 58.967 kg 58.967 kg [facility] ([facility]) Body mass index (BMI) [Ratio] 24.56 kg/m2 24.56 kg/m2 [facility] ([facility]) ID Date Data Source [id number] 02/23/2021 10:02:[address] [facility] Name Value Range Interpretation Code Description Data Source(s) Weight (Calculated Kilograms) 55.34 55.34 [facility] Height (Calculated Centimeters) 154.94 154. 94 [facility] Body Mass Index (BMI) 23.0 23.0 [facility] ID Date Data Source [id number] 03/09/2021 03:19:[address] [facility] Name Value Range Interpretation Code Description Data Source(s) Weight Measurement Method 1 1 [facility] Weight (Calculated Kilograms) 55.34 55.34 [facility] Weight 2144 2144 [facility] Temperature Source 7 7 [facility] Temperature 96.[address] [facility] Respiratory Effort 1 1 [facility] Respiratory Rate 16 16 [facility] Pulse Assessment Method 4 4 [facility] Pulse Rate 117 117 [facility] Height (Calculated Centimeters) 154.94 154. 94 [facility] Height 61 61 [facility] Blood Pressure 110/70 110/70 [facility] Body Mass Index (BMI) 23.0 23.0 [facility] Weight Measurement Method 1 1 [facility] Weight (Calculated Kilograms) 55.34 55.34 [facility] Weight 2144 2144 [facility] Temperature Source 7 7 [facility] Temperature 96.[address] [facility] Respiratory Effort 1 1 [facility] Respiratory Rate 16 16 [facility] Pulse Assessment Method 4 4 [facility] Pulse Rate 117 117 [facility] Height (Calculated Centimeters) 154.94 154. 94 [facility] Height 61 61 [facility] Blood Pressure 110/70 110/70 [facility] Body Mass Index (BMI) 23.0 23.0 [facility] Weight Measurement Method 1 1 [facility] Weight (Calculated Kilograms) 55.34 55.34 [facility] Weight 2144 2144 [facility] Temperature Source 7 7 [facility] Temperature 96.[address] [facility] Respiratory Effort 1 1 [facility] Respiratory Rate 16 16 [facility] Pulse Assessment Method 4 4 [facility] Pulse Rate 117 117 [facility] Height (Calculated Centimeters) 154.94 154. 94 [facility] Height 61 61 [facility] Blood Pressure 110/70 110/70 [facility] Body Mass Index (BMI) 23.0 23.0 [facility] Weight Measurement Method 1 1 [facility] Weight (Calculated Kilograms) 55.34 55.34 [facility] Weight 1983 1983 [facility] Temperature Source 7 7 [facility] Temperature 97.[address] [facility] Respiratory Effort 1 1 [facility] Respiratory Rate 14 14 [facility] Pulse Assessment Method 4 4 [facility] Pulse Rate 69 69 [facility] Height (Calculated Centimeters) 154.94 154. 94 [facility] Height 61 61 [facility] Blood Pressure 112/79 112/79 [facility] Body Mass Index (BMI) 23.0 23.0 [facility] Weight Measurement Method 1 1 [facility] Weight (Calculated Kilograms) 55.34 55.34 [facility] Weight 1983 1983 [facility] Temperature Source 7 7 [facility] Temperature 97.[address] [facility] Respiratory Effort 1 1 [facility] Respiratory Rate 16 16 [facility] Pulse Assessment Method 4 4 [facility] Pulse Rate 74 74 [facility] Height (Calculated Centimeters) 154.94 154. 94 [facility] Height 61 61 [facility] Blood Pressure 110/74 110/74 [facility] Body Mass Index (BMI) 23.0 23.0 [facility] Weight (Calculated Kilograms) 56.25 56.25 [facility] Height (Calculated Centimeters) 154.94 154. 94 [facility] Body Mass Index (BMI) 23.4 23.4 [facility] ID Date Data Source [id number] 05/07/2020 09:12:[address] [facility] Name Value Range Interpretation Code Description Data Source(s) Weight (Calculated Kilograms) 56.25 56.25 [facility] Height (Calculated Centimeters) 154.94 154. 94 [facility] Body Mass Index (BMI) 23.4 23.4 [facility] Weight (Calculated Kilograms) 56.25 56.25 [facility] Height (Calculated Centimeters) 154.94 154. 94 [facility] Body Mass Index (BMI) 23.4 23.4 [facility] Weight (Calculated Kilograms) 56.25 56.25 [facility] Height (Calculated Centimeters) 154.94 154. 94 [facility] Body Mass Index (BMI) 23.4 23.4 [facility] Weight (Calculated Kilograms) 56.25 56.25 [facility] Height (Calculated Centimeters) 154.94 154. 94 [facility] Body Mass Index (BMI) 23.4 23.4 [facility] ID Date Data Source [id number] 05/19/2020 05:30:[address] [facility] Name Value Range Interpretation Code Description Data Source(s) Weight Measurement Method 1 1 [facility] Weight (Calculated Kilograms) 56.25 56.25 [facility] Weight 2063 2063 [facility] Temperature Source 7 7 [facility] Temperature 97.[address] [facility] Respiratory Effort 1 1 [facility] Respiratory Rate 15 15 [facility] Pulse Assessment Method 4 4 [facility] Pulse Rate 83 83 [facility] Height (Calculated Centimeters) 154.94 154. 94 [facility] Height 61 61 [facility] Blood Pressure 109/75 109/75 [facility] Body Mass Index (BMI) 23.4 23.4 [facility] Weight Measurement Method 1 1 [facility] Weight (Calculated Kilograms) 56.25 56.25 [facility] Weight 2063 2063 [facility] Temperature Source 7 7 [facility] Temperature 97.[address] [facility] Respiratory Effort 1 1 [facility] Respiratory Rate 15 15 [facility] Pulse Assessment Method 4 4 [facility] Pulse Rate 83 83 [facility] Height (Calculated Centimeters) 154.94 154. 94 [facility] Height 61 61 [facility] Blood Pressure 109/75 109/75 [facility] Body Mass Index (BMI) 23.4 23.4 [facility] Weight Measurement Method 1 1 [facility] Weight (Calculated Kilograms) 56.25 56.25 [facility] Weight 2063 2063 [facility] Temperature Source 7 7 [facility] Temperature 97.[address] [facility] Respiratory Effort 1 1 [facility] Respiratory Rate 15 15 [facility] Pulse Assessment Method 4 4 [facility] Pulse Rate 83 83 [facility] Height (Calculated Centimeters) 154.94 154. 94 [facility] Height 61 61 [facility] Blood Pressure 109/75 109/75 [facility] Body Mass Index (BMI) 23.4 23.4 [facility] Weight Measurement Method 1 1 [facility] Weight (Calculated Kilograms) 56.25 56.25 [facility] Weight 2063 2063 [facility] Temperature Source 7 7 [facility] Temperature 97.[address] [facility] Respiratory Effort 1 1 [facility] Respiratory Rate 15 15 [facility] Pulse Assessment Method 4 4 [facility] Pulse Rate 83 83 [facility] Height (Calculated Centimeters) 154.94 154. 94 [facility] Height 61 61 [facility] Blood Pressure 109/75 109/75 [facility] Body Mass Index (BMI) 23.4 23.4 [facility] Weight Measurement Method 1 1 [facility] Weight (Calculated Kilograms) 56.25 56.25 [facility] Weight 1983 1983 [facility] Temperature Source 7 7 [facility] Temperature 96.[address] [facility] Respiratory Effort 1 1 [facility] Respiratory Rate 15 15 [facility] Pulse Assessment Method 4 4 [facility] Pulse Rate 90 90 [facility] Height (Calculated Centimeters) 154.94 154. 94 [facility] Height 61 61 [facility] Blood Pressure 104/67 104/67 [facility] Body Mass Index (BMI) 23.4 23.4 [facility] Weight Measurement Method 1 1 [facility] Weight (Calculated Kilograms) 56.25 56.25 [facility] Weight 1983 1983 [facility] Temperature Source 7 7 [facility] Temperature 97.[address] [facility] Respiratory Effort 1 1 [facility] Respiratory Rate 17 17 [facility] Pulse Assessment Method 4 4 [facility] Pulse Rate 93 93 [facility] Height (Calculated Centimeters) 154.94 154. 94 [facility] Height 61 61 [facility] Blood Pressure 110/87 110/87 [facility] Body Mass Index (BMI) 23.4 23.4 [facility] Weight (Calculated Kilograms) 72.12 72.12 [facility] Height (Calculated Centimeters) 154.94 154. 94 [facility] Body Mass Index (BMI) 30.0 30.0 [facility] Patient Treatment Plan of Care Planned Activity Planned Date Details Description Data Source (s) Sertraline 50 MG Oral Tablet [Zoloft] 01/18/2021 12:00:00 AM [facility] Risperidone 3 MG Oral Tablet [Risperdal] 01/18/2021 12:00:00 AM [facility] Prazosin 2 MG Oral Capsule [Minipress] 01/18/2021 12:00:00 AM [facility] olanzapine 15 MG Oral Tablet 01/18/2021 12:00:00 AM [facility] Multi-Vit/Mineral (Multivitamin Tablet) 1 TAB TAB 01/18/2021 12: 00:00 AM [facility] Mirtazapine 15 MG Oral Tablet 01/18/2021 12:00:00 AM [facility] gabapentin 600 MG Oral Tablet 01/18/2021 12:00:00 AM [facility] doxycycline hyclate 100 MG Oral Tablet 01/18/2021 12:00:00 AM [facility] Docusate Sodium 100 MG Oral Capsule [Colace] 01/18/2021 12:00:00 AM [facility] Buprenorphine 8 MG / Naloxone 2 MG Oral Strip [Suboxon e] 01/18/2021 12:00:[address] [facility] Metronidazole 500 MG Oral Tablet 09/22/2020 12:00:00 AM EST [facility] ([facility]) 168 HR Ethinyl Estradiol 0.66927 MG/HR / norelgestromin 0.93978 MG/HR Transdermal Patch [Xulane] 03/03/2020 12:00:00 AM [facility] Trazodone Hydrochloride 100 MG Oral Tablet [facility]) topiramate 50 MG Oral Tablet [facility]) [facility] Sulfamethoxazole 800 MG / Trimethoprim 160 MG Oral Tablet SUSI ([facility]) Sertraline 50 MG Oral Tablet [facility] ([facility]) [facility] Sert[facility]ine 100 MG Oral Tablet [facility] ([facility]) Risperidone 3 MG Oral Tablet SUSI ([facility]) Risperidone 2 MG Oral Tablet [facility] ([facility]) Prazosin 2 MG Oral Capsule A THENA ([facility]) Prazosin 1 MG Oral Capsule A THENA ([facility]) 24 HR paliperidone 6 MG Extended Release Oral Tablet [facility]I ([facility]) 24 HR paliperidone 3 MG Extended Release Oral Tablet [facility] ([facility]) 24 HR Oxybutynin chloride 5 MG Extended Release Oral Tablet [facility] ([facility]) 24 HR Oxybutynin chloride 10 MG Extended Release Oral Tablet [facility] ([facility]) olanzapine 5 MG Oral Tablet [facility] ([facility]) olanzapine 5 MG Disintegrating Oral Tablet [facility] ([facility]) benztropine mesylate 1 MG Oral Tablet [facility] ([facility]) atomoxetine 40 MG Oral Capsule SUSI ([facility]) atomoxetine 10 MG Oral Capsule [facility] ([facility]) aripiprazole 2 MG Oral Tablet [facility] ([facility]) Amitriptyline Hydrochloride 25 MG Oral Tablet [facility] ([facility]) Sertraline 50 MG Oral Tablet [Zoloft] [facility]. Risperidone 3 MG Oral Tablet [Risperdal] [facility] Prazosin 2 MG Oral Capsule [Minipress] [facility]. olanzapine 15 MG Oral Tablet [facility] Mirtazapine 15 MG Oral Tablet [facility] gabapentin 600 MG Oral Tablet [facility] Docusate Sodium 100 MG Oral Capsule [Colace] [facility]. Buprenorphine 8 MG / Naloxone 2 MG Oral Strip [Suboxone] [facility]. topiramate 50 MG Oral Tablet [Topamax] [facility] ([facility]) olanzapine 10 MG Oral Tablet [facility]USI ([facility]) Naproxen 500 MG Oral Tablet [facility] ([facility]) Mirtazapine 15 MG Oral Tablet [facility] ([facility]) Metronidazole 500 MG Oral Tablet [facility] ([facility]) Loratadine 10 MG Oral Tablet [facility] ([facility]) Levothyroxine Sodium 0.05 MG Oral Tablet [facility] ([facility]) Hydroxyzine Hydrochloride 50 MG Oral Tablet [facility]I ([facility]) Hydroxyzine Hydrochloride 25 MG Oral Tablet [facility] ([facility]) Haloperidol 2 MG Oral Tablet [facility] ([facility]) Haloperidol 10 MG Oral Tablet [facility] ([facility]) gabapentin 400 MG Oral Capsule [facility]I ([facility]) gabapentin 300 MG Oral Capsule [facility]I ([facility]) 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 MG Oral Capsule [facility]I ([facility]) Fluoxetine 10 MG Oral Capsule [facility]I ([facility]) doxycycline hyclate 100 MG Oral Tablet [facility] ([facility]) Docusate Sodium 100 MG Oral Capsule [facility]I ([facility]) Divalproex Sodium 500 MG Delayed Release Oral Tablet [facility] ([facility]) Divalproex Sodium 250 MG Delayed Release Oral Tablet [facility] ([facility]) Cephalexin 500 MG Oral Capsule [facility]I ([facility]) buspirone hydrochloride 7.5 MG Oral Tablet [facility]I ([facility])
[2021-06-12] MEDS ORDERED: LORazepam 1 MG TAB PO STA (14:37)
--- NOTE | 2021-06-12 16:05 | REP ---
INDICATION: AMS. COMPARISON: 11/19/2019 TECHNIQUE: 5 mm contiguous transaxial sections were obtained from the skull base to the cerebral convexities. FINDINGS: The ventricles and sulci are consistent with the patient's age. There are no extra-axial fluid collections. There is no mass effect. The deep cerebral white matter is consistent with the patient's age. The orbital and petrous structures, cerebellopontine angles, and posterior fossa are unremarkable. The sella turcica, cavernous, and paracavernous structures are essentially unremarkable. The visualized portions of the paranasal sinuses and mastoid air cells are clear. Images of the skull base show no gross abnormality. IMPRESSION: Unremarkable CT examination of the brain. No significant change from the prior exam <Electronically signed by Kingsley Rios > 06/12/21 [id number]
[2021-06-12] MEDS ORDERED: MOM 30ML SUSPENSION UDC PO PRN (17:30)
[2021-06-12] MEDS ORDERED: ACETAMINOPHEN TAB 650MG DOSE (2X325MG) PO PRN (17:30)
[2021-06-12] MEDS ORDERED: haloperidoL 5 MG TAB PO PRN (17:30)
[2021-06-12] MEDS ORDERED: MAALOX 30 ML SUSP *UDC PO PRN (17:30)
--- OUTSIDE RECORDS SUMMARY | 2021-06-12 17:54 | CCD ---
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 01/15/2021 01:59:00 PM EDT [facility] Counselor Progress NotePatient NoteBETHANIE HUGOVAN [facility], CONFIRMED A 4 WEEK WAIT LIST FOR THEIRINPATIENT FACILITY FOR WOMEN.Dictated on 01/15/21 1359 by Ike BlasTranscribed on 01/15/21 1359 by Zach Blas by Ike Blas on 01/15/21 1400Sign by: Ike Blas Name Value Range Interpretation Code Description Data Kassy rce(s) Supporting Document(s) ID Date Data Source [id number] 01/15/2021 01:36:00 PM EDT [facility] Counselor Progress NotePatient NoteCONFI RMED BED AT [facility] 01/22/21 - ADMISSION TIME PENDING.Dictated on 01/15/21 1336 by Ike BlasTranscribed on 01/15/21 1336 by Zach Blas by Ike Blas on 01/15/21 1337Sign by: Ike Blas Name Value Range Interpretation Code Description Data Kassy rce(s) Supporting Document(s) ID Date Data Source [id number] 01/14/2021 03:22:00 PM EDT [employer] Counselor Progress NotePatient Dominic DE JESUS HAD WENT TO SEE IF [...] rce(s) Supporting Document(s) ID Date Data Source [id number] 01/14/2021 03:00:00 PM EDT [employer] Counselor Progress NotePatient NoteCHUYITA DE JESUS WENT TO SEE IF PATIENT WAS UP TO DO EVALUATION AND SHE WASSLEEPING.Dictated on 01/14/21 1500 by Cherrie,TriciaTranscribed on 01/14/21 1500 by Cherrie,TriciaSign by Cherrie,Nuzhat on 01/14/21 1501Sign by: Cherrie,Nuzhat Name Value Range Interpretation Code Description Data Kassy rce(s) Supporting Document(s) ID Date Data Source [id number] 01/14/2021 01:44:00 PM EDT [employer] Counselor Progress NotePatient Dominic DE JESUS WENT INTO PATIENTS ROOM AT 12:30 TO DO THE EVALUATION, THEPATIENT WAS SLEEPING SO COUNSELOR HAD LEFT THE PATIENT TO SLEEP.COUNSELOR CAME BACK TO HER OFFICE AND REPORTED PATIENT STATUS TO ALFREDA.NURSING TRAFFIC REPORTER, SABINE PECK, WOKE THE PATIENT AND REQUESTED [...] rce(s) Supporting Document(s) ID Date Data Source [id number] 01/14/2021 09:26:00 AM EDT [facility]. Counselor Progress NotePatient NoteCOUNS LIZA ALONG WITH FILLING CARRIER WENT INTO PATIENTS ROOM AND ASKED HOW SHE WASDOING. PATIENT RESPONDED SHE WAS DOING OK. COUNSELOR INFORMED PATIENTTHAT SHE WAS HERE IF SHE NEEDED HER TO TALK OR ANYTHING.Dictated on 01/14/21 0926 by Cherrie,TriciaTranscribed on 01/14/21 0926 by Cherrie,TriciaSign by Cherrie,Nuzhat on 01/14/21 0933Sign by: Cherrie,Nuzhat Name Value Range Interpretation Code Description Data Kassy rce(s) Supporting Document(s) ID Date Data Source [id number] 01/13/2021 04:10:00 PM EDT [facility] Name Value Range Interpretation Code Description Data Kassy rce(s) Supporting Document(s) SARS-CoV-2 (COVID-19) RNA [Presence] in Respiratory specimen by IRIS with probe detection Negative; No COVID-2 RNA detected by PCR. [facility] This lab was ordered by [facility] and reported by . ID Date Data Source [id number] 12/08/2020 03:19:00 PM EDT [facility]) Name Value Range Interpretation Code Description Data Kassy rce(s) Supporting Document(s) influenza A amplification negative negative Influenza a Amplification [facility]) influenza B amplification negative negative Influenza B Amplification [facility]) RSV amplification negative negative RSV Amplification [facility]) sars covid-19 amplification negative negative Sars Cov id-19 Amplification [facility] ([facility]) ID Date Data Source [id number] 12/08/2020 03:19:00 PM EDT [facility] Name Value Range Interpretation Code Description Data Kassy rce(s) Supporting Document(s) SARS coronavirus 2 RNA [Presence] in Res piratory specimen by IRIS with probe detection NEGATIVE [facility] This lab was ordered by [facility] a nd reported by [facility]. ID Date Data Source [id number] 12/08/2020 09:19:00 AM EDT [facility] ([facility]) Name Value Range Interpretation Code Description Data Kassy rce(s) Supporting Document(s) thyroid stimulating hormone 1.050 uIU/mL 0.358-3.740 Thyroid Stimulating Hormone [facility]) ID Date Data Source [id number] 12/08/2020 09:19:00 AM EDT [facility] ([facility]) Name Value Range Interpretation Code Description Data Kassy rce(s) Supporting Document(s) acetaminophen level < 2.0 10.0-30.0 Below low normal Acetaminop hen Level [facility]) ID Date Data Source [id number] 12/08/2020 09:19:00 AM EDT [facility]) Name Value Range Interpretation Code Description Data Kassy rce(s) Supporting Document(s) salicylate level 2.7 mg/dL 5.0-30.0 Below low normal Salicylate Le jose [facility] ([facility]) ID Date Data Source [id number] 12/08/2020 09:19:00 AM EDT [facility]) Name Value Range Interpretation Code Description Data Kassy rce(s) Supporting Document(s) ethyl alcohol (ethanol) < 0.003 0.000-0.010 Ethyl Alcoh ol (Ethanol) [facility]) ID Date Data Source [id number] 12/08/2020 09:19:00 AM EDT [facility]) Name Value Range Interpretation Code Description Data Kassy rce(s) Supporting Document(s) glucose, fasting 93 mg/dL 70-100 Glucose, Fasting AT [facility] ([facility]) blood urea nitrogen 10 mg/dL 7-18 Blood Urea Nitro gen [facility] ([facility]) creatinine for GFR 0.61 mg/dL 0.55-1.30 Creatinine for GF R [facility] ([facility]) glomerular filtration rate > 60.0 >60 Glomerula r Filtration Rate [facility] ([facility]) sodium level 140 mEq/L 136-145 Sodium Level [facility] ([facility]) chloride level 111 mEq/L 98-107 Above high normal Chloride Level [facility] ([facility]) potassium serum 4.1 mEq/L 3.5-5.1 Potassium Serum AT[facility] ([facility]) anion gap 7 mEq/L 8-16 Below low normal Anion Gap [facility] ( [facility]) calcium level 9.9 mg/dL 8.5-10.1 Calcium Level [facility] ( [facility]) carbon dioxide level 22 mEq/L 21-32 Carbon Dioxide Level [facility] ([facility]) ID Date Data Source [id number] 12/08/2020 09:19:00 AM EDT [facility]) Name Value Range Interpretation Code Description Data Kassy rce(s) Supporting Document(s) AST/SGOT 28 U/L 7-37 AST/SGOT [facility] ([facility]) alkaline phosphatase 90 U/L 45-117 Alkaline Phosph atase [facility] ([facility]) ALT/SGPT 26 U/L 12-78 ALT/SGPT [facility] ([facility]) bilirubin,total 0.3 mg/dL 0.2-1.0 Bilirubin,total AT[facility] ([facility]) bilirubin,direct < 0.1 0.0-0.2 Bilirubin,direct AT [facility]) albumin 3.9 gm/dL 3.2-5.2 Albumin [facility] ([facility]) total protein 8.4 gm/dL 6.4-8.2 Above high normal Total Protein A [facility] ([facility]) albumin/globulin ratio 1.2-2.2 Below low normal Albumin /globulin Ratio [facility] ([facility]) ID Date Data Source [id number] 12/08/2020 09:19:00 AM EDT [facility] ([facility]) Name Value Range Interpretation Code Description Data Kassy rce(s) Supporting Document(s) white blood count 9.1 10 4.0-10.0 White Blood Count [facility] ([facility]) red blood count 4.31 10 4.00-5.40 Red Blood Count [facility] ([facility]) hemoglobin 12.8 g/dL 12.0-15.5 Hemoglobin [facility] ([facility]) hematocrit 39.2 % 36.0-47.0 Hematocrit [facility] ([facility]) mean corpuscular volume 91.0 fL 80.0-96.0 Mean Corpusc ular Volume [facility] ([facility]) mean corpuscular hemoglobin 29.7 pg 27.0-33.0 Mean Cor puscular Hemoglobin [facility] ([facility]) mean corpuscular HGB conc 32.7 g/dL 32.0-36.5 Mean Corpu scular HGB Conc [facility] ([facility]) platelet count, automated 276 10 150-450 Platelet C ount, Automated [facility] ([facility]) red cell distribution width 13.7 % 11.5-14.5 Red Cell Distribution Width [facility] ([facility]) nucleated red blood cell % 0.0 % 0-0 Nucleated Red Blood Cell % [facility] ([facility]) ID Date Data Source [id number] 12/08/2020 08:11:00 AM EDT [facility]) Name Value Range Interpretation Code Description Data Kassy rce(s) Supporting Document(s) amphetamines level urine positive negative Above high andrea l Amphetamines Level Urine [facility] ([facility]) barbiturates urine negative negative Barbiturates Urin e [facility] ([facility]) benzodiazepines urine negative negative Benzodiazepine s Urine [facility] ([facility]) cannabinoids urine positive negative Above high normal Cannabinoi ds Urine [facility] ([facility]) cocaine metabolite urine negative negative Cocaine Met abolite Urine [facility] ([facility]) opiates urine negative negative Opiates Urine [facility] ( [facility]) methadone urine negative negative Methadone Urine ATHE NA ([facility]) phencyclidine urine negative negative Phencyclidine Ur ine [facility] ([facility]) ID Date Data Source [id number] 12/07/2020 09:14:00 AM EDT [facility] ([facility]) Name Value Range Interpretation Code Description Data Kassy rce(s) Supporting Document(s) istat troponin 0.01 NG/mL 0.00-0.08 Istat Troponin [facility] ([facility]) ID Date Data Source [id number] 12/07/2020 09:12:00 AM EDT [facility] ([facility]) Name Value Range Interpretation Code Description Data Kassy rce(s) Supporting Document(s) istat HCT 38.0 % 38.0-51.0 Istat HCT [facility] ([facility]) istat sodium 138 mEq/L 136-145 Istat Sodium [facility] ([facility]) istat glucose 111 mg/dL 70-105 Above high normal Istat Glucose A [facility] ([facility]) istat Ca++ 4.7 mg/dL 4.5-5.3 Istat Ca++ [facility] ([facility]) istat potassium 3.9 mEq/L 3.5-5.1 Istat Potassium ATHE NA ([facility]) istat CO2 23.0 mm/L 23.0-27.0 Istat CO2 [facility] ([facility]) istat chloride 105 mEq/L 98-109 Istat Chloride [facility] ([facility]) istat BUN 9 mg/dL 8-26 Istat BUN [facility] ([facility]) istat creatinine 0.6 mg/dL 0.6-1.3 Istat Creatinine AT [facility] ([facility]) ID Date Data Source [id number] 12/01/2020 03:02:00 AM EDT [facility] Name Value Range Interpretation Code Description Data Kassy rce(s) Supporting Document(s) SARS coronavirus 2 RNA [Presence] in Res piratory specimen by IRIS with probe detection NEGATIVE [facility] This lab was ordered by [facility] a nd reported by [facility]. ID Date Data Source [id number] 09/15/2020 03:35:50 PM EST [facility] ([facility]) Name Value Range Interpretation Code Description Data Kassy rce(s) Supporting Document(s) Color: yellow; Glucose: nega tive; Blood: small; pH: 6.0; Protein: small; Nitrite: positive; Leukocytes: moderate Abnormal (appl ies to non-numeric results) Urine Dipstick [facility] ([facility] ID Date Data Source [id number] 09/15/2020 03:35:12 PM EST [facility] ([facility]) Name Value Range Interpretation Code Description Data Kassy rce(s) Supporting Document(s) NegativeLot: [id number]: 03/31/2022 High Sensitivity Urine Test [facility] ID Date Data Source [id number] 06/02/2020 02:08:00 PM EST [facility]) Name Value Range Interpretation Code Description Data Kassy rce(s) Supporting Document(s) alkaline phosphatase 75 U/L 45-117 Alkaline Phosph atase [facility]) ALT/SGPT 74 U/L 12-78 ALT/SGPT [facility] ([facility]) AST/SGOT 58 U/L 7-37 Above high normal AST/SGOT [facility] ([facility]) total protein 7.7 gm/dL 6.4-8.2 Total Protein [facility] ( [facility]) bilirubin,total 0.4 mg/dL 0.2-1.0 Bilirubin,total ATHE NA ([facility]) bilirubin,direct 0.1 mg/dL 0.0-0.2 Bilirubin,direct AT [facility] ([facility]) albumin/globulin ratio 1.2-2.2 Below low normal Albumin /globulin Ratio [facility] ([facility]) albumin 3.7 gm/dL 3.2-5.2 Albumin [facility] ([facility]) ID Date Data Source [id number] 06/02/2020 02:08:00 PM EST [facility] ([facility]) Name Value Range Interpretation Code Description Data Kassy rce(s) Supporting Document(s) amphetamines level urine positive negative Above high andrea l Amphetamines Level Urine [facility] ([facility]) benzodiazepines urine negative negative Benzodiazepine s Urine [facility] ([facility]) barbiturates urine negative negative Barbiturates Urin e [facility] ([facility]) cannabinoids urine positive negative Above high normal Cannabinoi ds Urine [facility] ([facility]) cocaine metabolite urine negative negative Cocaine Met abolite Urine [facility] ([facility]) methadone urine positive negative Above high normal Methadone Uri ne [facility] ([facility]) phencyclidine urine negative negative Phencyclidine Ur ine [facility] ([facility]) opiates urine positive negative Above high normal Opiates Urine A [facility] ([facility]) ID Date Data Source [id number] 06/02/2020 02:08:00 PM EST [facility] ([facility]) Name Value Range Interpretation Code Description Data Kassy rce(s) Supporting Document(s) white blood count 5.8 10 4.0-10.0 White Blood Count [facility] ([facility]) red blood count 3.95 10 4.00-5.40 Below low normal Red Blood Coun t [facility] ([facility]) hemoglobin 12.2 g/dL 12.0-15.5 Hemoglobin [facility] ([facility]) mean corpuscular volume 94.2 fL 80.0-96.0 Mean Corpusc ular Volume [facility] ([facility]) hematocrit 37.2 % 36.0-47.0 Hematocrit [facility] ([facility]) mean corpuscular hemoglobin 30.9 pg 27.0-33.0 Mean Cor puscular Hemoglobin [facility] ([facility]) mean corpuscular HGB conc 32.8 g/dL 32.0-36.5 Mean Corpu scular HGB Conc [facility] ([facility]) red cell distribution width 12.8 % 11.5-14.5 Red Cell Distribution Width [facility] ([facility]) nucleated red blood cell % 0.0 % 0-0 Nucleated Red Blood Cell % [facility] ([facility]) platelet count, automated 195 10 150-450 Platelet C ount, Automated [facility] ([facility]) ID Date Data Source [id number] 06/02/2020 02:08:00 PM EST [facility] ([facility]) Name Value Range Interpretation Code Description Data Kassy rce(s) Supporting Document(s) HCG, serum qualitative negative negative HCG, [facility] Qu [facility] ID Date Data Source [id number] 06/02/2020 02:08:00 PM EST [facility] ([facility]) Name Value Range Interpretation Code Description Data Kassy rce(s) Supporting Document(s) thyroid stimulating hormone 1.690 uIU/mL 0.358-3.740 Thyroid Stimulating Hormone [facility] ([facility]) ID Date Data Source [id number] 06/02/2020 02:08:00 PM EST [facility]) Name Value Range Interpretation Code Description Data Kassy rce(s) Supporting Document(s) acetaminophen level < 2.0 10.0-30.0 Below low normal Acetaminop hen Level [facility] ([facility]) ID Date Data Source [id number] 06/02/2020 02:08:00 PM EST [facility] ([facility]) Name Value Range Interpretation Code Description Data Kassy rce(s) Supporting Document(s) salicylate level < 1.7 5.0-30.0 Below low normal Salicylate Le jsoe [facility] ([facility]) ID Date Data Source [id number] 06/02/2020 02:08:00 PM EST [facility] ([facility]) Name Value Range Interpretation Code Description Data Kassy rce(s) Supporting Document(s) ethyl alcohol (ethanol) < 0.003 0.000-0.010 Ethyl Alcoh ol (Ethanol) [facility] ([facility]) ID Date Data Source [id number] 06/02/2020 02:08:00 PM EST [facility] ([facility]) Name Value Range Interpretation Code Description Data Kassy rce(s) Supporting Document(s) creatinine for GFR 0.71 mg/dL 0.55-1.30 Creatinine for GF R [facility] ([facility]) blood urea nitrogen 7 mg/dL 7-18 Blood Urea Nitro gen [facility] ([facility]) glucose, fasting 82 mg/dL 70-100 Glucose, Fasting AT [facility] ([facility]) glomerular filtration rate > 60.0 >60 Glomerula r Filtration Rate [facility] ([facility]) sodium level 139 mEq/L 136-145 Sodium Level [facility] ([facility]) potassium serum 3.6 mEq/L 3.5-5.1 Potassium Serum A[facility] NA ([facility]) anion gap 6 mEq/L 8-16 Below low normal Anion Gap [facility] ( [facility]) carbon dioxide level 24 mEq/L 21-32 Carbon Dioxide Level [facility] ([facility]) chloride level 109 mEq/L 98-107 Above high normal Chloride Level [facility] ([facility]) calcium level 8.8 mg/dL 8.5-10.1 Calcium Level BANTAM ( [facility]) ID Date Data Source [id number] 06/01/2020 01:01:00 PM EST SUSI ([facility]) Name Value Range Interpretation Code Description Data Kassy rce(s) Supporting Document(s) amphetamines level urine positive negative Above high andrea l Amphetamines Level Urine SUSI ([facility]) cocaine metabolite urine positive negative Above high andrea l Cocaine Metabolite Urine SUSI ([facility]) cannabinoids urine positive negative Above high normal Cannabinoi ds Urine SUSI ([facility]) benzodiazepines urine negative negative Benzodiazepine s Urine SUSI ([facility]) barbiturates urine negative negative Barbiturates Urin e SUSI ([facility]) phencyclidine urine negative negative Phencyclidine Ur ine SUSI ([facility]) methadone urine positive negative Above high normal Methadone Uri ne SUSI ([facility]) opiates urine positive negative Above high normal Opiates Urine A THENA ([facility]) ID Date Data Source [id number] 06/01/2020 01:01:00 PM EST SUSI ([facility]) Name Value Range Interpretation Code Description Data Kassy rce(s) Supporting Document(s) HCG, serum qualitative negative negative HCG, Serum Qu alitative SUSI ([facility]) ID Date Data Source [id number] 06/01/2020 01:01:00 PM EST SUSI ([facility]) Name Value Range Interpretation Code Description Data Kassy rce(s) Supporting Document(s) thyroid stimulating hormone 4.060 uIU/mL 0.358-3.740 Above high no rmal Thyroid Stimulating Hormone BANTAM ([facility]) ID Date Data Source [id number] 06/01/2020 01:01:00 PM EST SUSI ([facility]) Name Value Range Interpretation Code Description Data Kassy rce(s) Supporting Document(s) acetaminophen level < 2.0 10.0-30.0 Below low normal Acetaminop hen Level BANTAM ([facility]) ID Date Data Source [id number] 06/01/2020 01:01:00 PM EST SUSI ([facility]) Name Value Range Interpretation Code Description Data Kassy rce(s) Supporting Document(s) salicylate level < 1.7 5.0-30.0 Below low normal Salicylate Le jose SUSI ([facility]) ID Date Data Source [id number] 06/01/2020 01:01:00 PM EST SUSI ([facility]) Name Value Range Interpretation Code Description Data Kassy rce(s) Supporting Document(s) ethyl alcohol (ethanol) < 0.003 0.000-0.010 Ethyl Alcoh ol (Ethanol) BANTAM ([facility]) ID Date Data Source [id number] 06/01/2020 01:01:00 PM EST SUSI ([facility]) Name Value Range Interpretation Code Description Data Kassy rce(s) Supporting Document(s) glucose, fasting 129 mg/dL 70-100 Above high normal Glucose, Fas ting BANTAM ([facility]) blood urea nitrogen 12 mg/dL 7-18 Blood Urea Nitro gen BANTAM ([facility]) creatinine for GFR 0.83 mg/dL 0.55-1.30 Creatinine for GF R SUSI ([facility]) sodium level 136 mEq/L 136-145 Sodium Level SUSI (No [facility]) glomerular filtration rate > 60.0 >60 Glomerula r Filtration Rate BANTAM ([facility]) potassium serum 3.6 mEq/L 3.5-5.1 Potassium Serum ATH NA ([facility]) chloride level 103 mEq/L 98-107 Chloride Level BANTAM ([facility]) carbon dioxide level 23 mEq/L 21-32 Carbon Dioxide Level BANTAM ([facility]) anion gap 10 mEq/L 8-16 Anion Gap BANTAM ([facility]) calcium level 8.8 mg/dL 8.5-10.1 Calcium Level SUSI ( [facility]) ID Date Data Source [id number] 06/01/2020 01:01:00 PM EST SUSI ([facility]) Name Value Range Interpretation Code Description Data Kassy rce(s) Supporting Document(s) AST/SGOT 61 U/L 7-37 Above high normal AST/SGOT SUSI ([facility]) ALT/SGPT 89 U/L 12-78 Above high normal ALT/SGPT SUSI ([facility]) alkaline phosphatase 80 U/L 45-117 Alkaline Phosph atase SUSI ([facility]) bilirubin,total 0.3 mg/dL 0.2-1.0 Bilirubin,total ATHE ([facility]) total protein 8.4 gm/dL 6.4-8.2 Above high normal Total Protein A [facility] ([facility]) bilirubin,direct 0.1 mg/dL 0.0-0.2 Bilirubin,direct AT [facility]) albumin/globulin ratio 1.2-2.2 Below low normal Albumin /globulin Ratio SUSI ([facility]) albumin 4.2 gm/dL 3.2-5.2 Albumin SUSI ([facility]) ID Date Data Source [id number] 06/01/2020 01:01:00 PM EST SUSI ([facility]) Name Value Range Interpretation Code Description Data Kassy rce(s) Supporting Document(s) white blood count 5.6 10 4.0-10.0 White Blood Count SUSI ([facility]) red blood count 4.07 10 4.00-5.40 Red Blood Count ATHE NA ([facility]) hemoglobin 12.4 g/dL 12.0-15.5 Hemoglobin SUSI ([facility]) hematocrit 37.8 % 36.0-47.0 Hematocrit SUSI ([facility]) mean corpuscular hemoglobin 30.5 pg 27.0-33.0 Mean Cor puscular Hemoglobin SUSI ([facility]) mean corpuscular HGB conc 32.8 g/dL 32.0-36.5 Mean Corpu scular HGB Conc SUSI ([facility]) mean corpuscular volume 92.9 fL 80.0-96.0 Mean Corpusc ular Volume SUSI ([facility]) neutrophils % 39.6 % 36.0-66.0 Neutrophils % BANTAM ( [facility]) red cell distribution width 12.8 % 11.5-14.5 Red Cell Distribution Width SUSI ([facility]) platelet count, automated 205 10 150-450 Platelet C ount, Automated SUSI ([facility]) mono % 8.0 % 0.0-5.0 Above high normal [place] % BANTAM ([facility]) lymph % 48.6 % 24.0-44.0 Above high normal Lymph % BANTAM ([facility]) baso % 0.9 % 0.0-1.0 Baso % BANTAM ([facility]) eos % 2.7 % 0.0-3.0 Eos % BANTAM ([facility]) immature granulocyte % 0.2 % 0-3.0 Immature Gran ulocyte % BANTAM ([facility]) nucleated red blood cell % 0.0 % 0-0 Nucleated Red Blood Cell % BANTAM ([facility]) neutrophils # 2.2 10 1.5-8.5 Neutrophils # SUSI ( [facility]) lymph # 2.7 10 1.5-5.0 Lymph # SUSI ([facility]) mono # 0.5 10 0.0-0.8 [place] # SUSI ([facility]) eos # 0.2 10 0.0-0.5 Eos # SUSI ([facility]) baso # 0.1 10 0.0-0.2 Baso # SUSI ([facility]) ID Date Data Source [id number] 05/07/2020 09:44:00 AM EDT [facility] Name Value Range Interpretation Code Description Data Kassy rce(s) Supporting Document(s) Free T4 (Free Thyroxine) 0.76-1.46 Normal (applies to non -numeric results) [facility] ID Date Data Source [id number] 05/07/2020 09:44:00 AM EDT [facility] Name Value Range Interpretation Code Description Data Kassy rce(s) Supporting Document(s) Thyroid Stimulate Hormone TSH 0.358-3.740 Above high andrea l [facility] ID Date Data Source [id number] 04/30/2020 01:37:00 PM EDT [facility] Hospital Name: CELY SIMS [facility] Rec #: [id number] 14 : 1985 Age/Sex: 34F Date of Service: 04/30/20 DISPOSITION SUMMARY Discharge Summary [facility] Name:Cely Sims Emergency Department Age:34 yrs [...] Discharge Instruction: Discharge Summary Sheet, Constipation, Adult, [id number], Medication Reconciliation Name Value Range Interpretation Code Description Data Kassy rce(s) Supporting Document(s) ID Date Data Source [id number] 04/30/2020 01:37:00 PM EDT [facility] Name: CELY SIMS [facility] Rec #: [id number] 14 : 1985 Age/Sex: 34F Date of Service: 04/30/20 PHYSICIAN CHART Physician Documentation [facility] Name: Cely Sims Age: 34 yrs [...] fevers, headaches, chest pain, shortness of breath.. 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 ROS: 14:40 Constitutional: Negative for fever, chills, [...] 14:27 Order name: Lipase; Complete Time: 15:22 zr1 04/30 15:54 Interpretation: LIP 85. w04/30 14:27 Order name: UA.; Complete Time: 15:19 zr04/30 15:02 Interpretation: Ur Color Yellow; Ur Clarity Clear; Ur Leuk zrw1 Est 2+ Mod; Ur Nitrite Negative. 04/30 14:39 Order name: POC Urine HCG for ED; Complete Time: 15:19 dk2 04/30 15:54 Interpretation: POC ED Ur HCG NEGATIVE. 04/30 14:27 Order name: Ct Abdomen & Pelvis with Con [facility] 04/30 14:27 Order name: Collect Urine - Clean Catch; Complete Time: 14:33 04/30 14:58 Order name: Urinalysis Auto w/Microscopy [facility] 04/30 14:58 Order name: Urine Culture [facility] 04/30 15:02 Order name: Emergency Room EKG Order - Use EKG Work-Up zrw1 /Quick Select; Complete Time: 15:28 04/30 15:02 Order name: Cardiology EKG Interpretation - Choose Reason w1 for Test 04/30 14:27 Order name: Iv [...] Discharge Summary Sheet zrw1 - Constipation, Adult, [id number]-Dmkb zrw1 Forms: - Medication Reconciliation zrw1 Prescriptions: - Cephalexin 500 mg Oral Capsule - take 1 capsule by ORAL route every 12 hours for 5 zrw1 days; 10 capsule; Refills: 0, Product Selection Permitted - magnesium citrate Oral Solution - take 1 bottle by ORAL route one time; 1 bottle; zrw1 Refills: 0, Product Selection Permitted Signatures: [facility] Lobo RN RN tp1 Maira Nunez [...] rce(s) Supporting Document(s) ID Date Data Source [id number] 04/30/2020 01:37:00 PM EDT [facility] Name: CELY SIMS [facility] Rec #: [id number] 14 : 1985 Age/Sex: 34F Date of Service: 04/30/20 NURSE CHART Nurse's Notes [facility] Name: Cely Sims Age: 34 yrs Sex: Female : 1985 Arrival Date: 04/30/2020 Time: 13:37 Bed 8 Private MD: Rehab, Provider Diagnosis: Abdominal Pain, Unspecified;Constipation, unspecified Presentation: 04/30 13:38 Acuity: Urgent - 3 awr 13:56 Transition of care: patient was not received from another [facility] setting of care. Presenting complaint: Patient states - She has not had a BM in the last two days despite using suppositories.. Pt is currently at our rehab facility. Have you travelled in the last 30 days? Yes, Where have you travelled? From [place]. . Have you had contact with an [...] Abdomen is distended, The patient reports constipation. 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 Screenin:06 AUDIT 1. How often do you [...] NA jmg Willis, Zachary, PA PA zrw1 [place], Antonina houd Name Value Range Interpretation Code Description Data Kassy rce(s) Supporting Document(s) ID Date Data Source [id number] 05/01/2020 09:27:00 AM EDT [facility] Name: CELY SIMS : 1985 A ge/Sex: 34F Ordering Provider: LEA White Med Rec #: [id number] Reg Status:[facility] ER Room #: Date of Service: 04/30/20 Report Number: [id number] cc: PCP None; LEA White Send Report To: Reason for exam: ABDOMINAL PAIN SINUS RHYTHM POSSIBLE RIGHT VENTRICULAR CONDUCTION DELAY BORDERLINE ECG Compared to 04/18/2020 there is no significant change Physician Buckle Sorter: Serafin Daugherty M.D. ECG HEART RATE: 83 [...] FILE 05/01/20927 Reported By: Serafin Daugherty MD, [facility] <<Signature on File>> Exam Date/Time: 04/30/20 1523 Order #: [id number] Dictation Date/Time: 05/01/20926 Transcribed Date/Time: 05/01/20926 Customer Supply Chain Analyst: LETICIA Name Value Range Interpretation Code Description Data Kassy rce(s) Supporting Document(s) ID Date Data Source [id number] 05/02/2020 10:45:00 AM EDT [facility] Name Value Range Interpretation Code Description Data Kassy rce(s) Supporting Document(s) Urine Culture Normal (applies to non-numeric re sults) [facility] ID Date Data Source [id number] 04/30/2020 03:21:00 PM EDT [facility] Name Value Range Interpretation Code Description Data Kassy rce(s) Supporting Document(s) Sodium 142 mmol/L 137-145 Normal (applies to non-numeric resul ts) [facility] Potassium 3.5-5.1 Normal (applies to non-numeric resul ts) [facility] Chloride 113 mmol/L 98-112 Above high normal [facility] Carbon Dioxide CO2 22.0-33.0 Normal (applies to non-numer ic results) [facility] Anion Gap 4.0-11.0 Normal (applies to non-numeric resul ts) [facility] BUN 17 mg/dL 7-17 Normal (applies to non-numeric resul ts) [facility] Creatinine 0.70-1.20 Normal (applies to non-numeric resul ts) [facility] GFR 85 mL/min >60 Normal (applies to non-numeric resul ts) [facility] Result based on MDRD formula. Glucose Level 85 mg/dL 74-99 Normal (applies to non-numeric re sults) [facility] The reference range is only applicable w hen fasting. Calcium-Uncorrected 8.4-10.2 Normal (applies to non-nume claudia results) [facility] Corrected Calcium 8.4-10.2 Normal (applies to non-numeri c results) [facility] Bilirubin,Total 0.2-1.3 Below low normal [facility] SGOT(AST) 37 U/L 14-36 Above high normal [facility] SGPT(ALT) 37 U/L 9-52 Normal (applies to non-numeric resul ts) [facility] Alkaline Phosphatase 81 U/L 38-126 Normal (applies to non-num clementine results) [facility] can increase Alkaline Phosp le vels up to 2 times the normal adult value. Normal values for children and adolescents are 2 to 3 times the normal adult value. Total Protein 6.3-8.2 Normal (applies to non-numeric re sults) [facility] Albumin 3.5-5.0 Normal (applies to non-numeric resul ts) [facility] ID Date Data Source [id number] 04/30/2020 03:21:00 PM EDT [facility] Name Value Range Interpretation Code Description Data Kassy rce(s) Supporting Document(s) C-Reactive Protein,Wide Range <3.00 Normal (applies t o non-numeric results) [facility] ID Date Data Source [id number] 04/30/2020 03:21:00 PM EDT [facility] Name Value Range Interpretation Code Description Data Kassy rce(s) Supporting Document(s) Lipase 85 U/L 73-393 Normal (applies to non-numeric resul ts) [facility] ID Date Data Source [id number] 04/30/2020 03:07:00 PM EDT [facility] Name Value Range Interpretation Code Description Data Kassy rce(s) Supporting Document(s) White Blood Count 4.8-10.8 Normal (applies to non-numeri c results) [facility] Red Blood Count 3.68-5.22 Normal (applies to non-numeric results) [facility] Hemoglobin 11.2-15.7 Normal (applies to non-numeric resul ts) [facility] Hematocrit 34.1-44.9 Normal (applies to non-numeric resul ts) [facility] Mean Corpuscular Volume 81-99 Normal (applies to non- numeric results) [facility] Mean Corpuscular Hemoglobin 27.0-33.0 Normal (appli es to non-numeric results) [facility] Mean Corpuscular HGB Conc 32.0-36.0 Normal (applies to no n-numeric results) [facility] Red Cell Distribution Width 11.5-14.5 Normal (appli es to non-numeric results) [facility] Platelet Count 240 X10 3/uL 130-450 Normal (applies to non-numeric results) [facility] Mean Platelet Volume 9.5-12.7 Normal (applies to non-num clementine results) [facility] Imm Grans% (AUTO) 0 % 0-2 Normal (applies to non-numeri c results) [facility] Neutrophils % (AUTO) 42 % 40-75 Normal (applies to non-num clementine results) [facility] Lymphocytes % (AUTO) 46 % 21-46 Normal (applies to non-num clementine results) [facility] Monocytes % (AUTO) 7 % 5-12 Normal (applies to non-numer ic results) [facility] Eosinophils % (AUTO) 3 % 1-5 Normal (applies to non-num clementine results) [facility] Basophils % (AUTO) 1 % 0-1 Normal (applies to non-numer ic results) [facility] Imm Grans# (AUTO) 0.0-0.5 Normal (applies to non-numeri c results) [facility] Neutrophils # (AUTO) 1.5-8.1 Normal (applies to non-num clementine results) [facility] Lymphocytes # (AUTO) 1.0-3.1 Above high normal [facility] Monocytes # (AUTO) 0.2-1.3 Normal (applies to non-numer ic results) [facility] Eosinophils# (AUTO) 0.0-0.5 Normal (applies to non-nume claudia results) [facility] Basophils # (AUTO) 0.0-0.1 Normal (applies to non-numer ic results) [facility] ID Date Data Source [id number] 04/30/2020 03:15:00 PM EDT [facility] Control Line Present? YPerformed by: Jewels Valles HCG Screen Result: NEGATIVE Name Value Range Interpretation Code Description Data Kassy rce(s) Supporting Document(s) POC ED Urine HCG NEGATIVE Normal (applies to non-numeric results) [facility] ID Date Data Source [id number] 04/30/2020 03:10:00 PM EDT [facility] Name Value Range Interpretation Code Description Data Kassy rce(s) Supporting Document(s) Color,Urine Yellow Normal (applies to non-numeric resu lts) [facility] Clarity,Urine Clear Normal (applies to non-numeric re sults) [facility] Specific [place],Urine 1.001-1.030 Normal (applies to non- numeric results) [facility] PH,Urine 4.6-8.0 Normal (applies to non-numeric resul ts) [facility] Protein,Urine Negative Normal (applies to non-numeric re sults) [facility] Glucose,Urine (UA) Negative Normal (applies to non-numer ic results) [facility] Ketones,Urine Negative Normal (applies to non-numeric re sults) [facility] Blood,Urine Negative Normal (applies to non-numeric resu lts) [facility] Bilirubin,Urine Negative Normal (applies to non-numeric results) [facility] Urobilinogen,Urine Norm 0.2-1 Normal (applies to non-numer ic results) [facility] Leukocyte Esterase,Urine Negative [facility] Nitrite,Urine Negative Normal (applies to non-numeric re sults) [facility] ID Date Data Source [id number] 04/30/2020 03:10:00 PM EDT [facility] Name Value Range Interpretation Code Description Data Kassy rce(s) Supporting Document(s) WBC,URINE 0-10 [facility] RBC,Urine 0-2 Normal (applies to non-numeric resul ts) [facility] Hyaline Casts,Ur None Seen Normal (applies to non-numeric results) [facility] Bacteria,Urine None Seen Bhagat [facility] Epithelial Cell,Ur None-Few Bhagat [facility] ID Date Data Source [id number] 05/01/2020 06:14:00 AM EDT [facility] Name: CELY SIMS : 1985 A ge/Sex: 34F Ordering Provider: LEA White Med Rec #: [id number] Reg Status: [facility] ER Room #: Date of Service: 04/30/20 Report Number: [id number] cc:PCP None Send Report To: [id number] CT/CT Abdomen & Pelvis w Con Reason [...] Date/Time: 04/30/20 1541 Transcribed Date/Time: 05/01/20 0614 Customer Supply Chain Analyst: CHEL Name Value Range Interpretation Code Description Data Kassy rce(s) Supporting Document(s) ID Date Data Source [id number] 04/23/2020 09:55:00 AM [facility] Name Value Range Interpretation Code Description Data Kassy rce(s) Supporting Document(s) Free T4 (Free Thyroxine) 0.76-1.46 Normal (applies to non -numeric results) [facility] ID Date Data Source [id number] [facility] Interpretation Code Description Data Kassy rce(s) Supporting Document(s) Thyroid Stimulate Hormone TSH 0.358-3.740 Above high andrea l [facility] ID Date Data Source [id number] 04/18/2020 03:52:00 PM EDT [facility] Name: CELY SIMS : 1985 A ge/Sex: 34F Ordering Provider: Stephanie TATE Med Rec #: [id number] Reg Status:ADM IN Room #: 156-2 Date of Service: 04/18/20 Report Number: [id number] cc: Stephanie TATE; Annelise Gray MD Send Report To: Reason for exam: chest pain with cocaine SINUS RHYTHM POSSIBLE LEFT ATRIAL ENLARGEMENT POSSIBLE RIGHT VENTRICULAR CONDUCTION DELAY NONSPECIFIC T-WAVE ABNORMALITY Physician Buckle Sorter: Dr. Ben Tillman M.D. ECG HEART RATE: [...] File>> Exam Date/Time: 04/18/20 0759 Order #: [id number] Dictation Date/Time: 04/18/201551 Transcribed Date/Time: 04/18/201551 Customer Supply Chain Analyst: LETICIA Name Value Range Interpretation Code Description Data Kassy rce(s) Supporting Document(s) ID Date Data Source [id number] 04/17/2020 11:39:00 AM EDT [facility] Value Range Interpretation Code Description Data Kassy rce(s) Supporting Document(s) Hep Bs Ag Result T-Test Nonreactive Normal (applies to non -numeric results) [facility] ID Date Data Source [id number] 04/17/2020 11:39:00 AM EDT [facility] Value Range Interpretation Code Description Data Kassy rce(s) Supporting Document(s) Syphilis Serology Nonreactive Normal (applies to non-numer ic results) [facility] ID Date Data Source [id number] 04/17/2020 11:39:00 AM EDT [facility] Value Range Interpretation Code Description Data Kassy rce(s) Supporting Document(s) HAVM Nonreactive Normal (applies to non-numeric resu lts) [facility] ID Date Data Source [id number] 04/17/2020 11:39:00 AM EDT [facility] Value Range Interpretation Code Description Data Kassy rce(s) Supporting Document(s) Vitamin D,Total (25OH) 30.0-100.0 Below low normal [facility] Reference Range: <10 ng/mL: Deficien t 10-30 ng/mL: Insufficient 30-100 ng/mL: Sufficient >100 ng/mL: Toxicity possible ID Date Data Source [id number] 04/17/2020 10:44:00 AM EDT [facility] Value Range Interpretation Code Description Data Kassy rce(s) Supporting Document(s) C-Reactive Protein,Wide Range <3.00 Normal (applies t o non-numeric results) [facility] ID Date Data Source [id number] 04/17/2020 10:44:00 AM EDT [facility] Name Value Range Interpretation Code Description Data Kassy rce(s) Supporting Document(s) Magnesium 1.80-2.40 Normal (applies to non-numeric resul ts) [facility] ID Date Data Source [id number] 04/17/2020 10:44:00 AM EDT [facility] Name Value Range Interpretation Code Description Data Kassy rce(s) Supporting Document(s) Sodium 137 mmol/L 137-145 Normal (applies to non-numeric resul ts) [facility] Potassium 3.5-5.1 Normal (applies to non-numeric resul ts) [facility] Chloride 110 mmol/L 98-112 Normal (applies to non-numeric resul ts) [facility] Carbon Dioxide CO2 22.0-33.0 Below low normal [facility] Anion Gap 4.0-11.0 Normal (applies to non-numeric resul ts) [facility] BUN 16 mg/dL 7-17 Normal (applies to non-numeric resul ts) [facility] Creatinine 0.70-1.20 Normal (applies to non-numeric resul ts) [facility] GFR 88 mL/min >60 Normal (applies to non-numeric resul ts) [facility] Result based on MDRD formula. Glucose Level 94 mg/dL 74-99 Normal (applies to non-numeric re sults) [facility] The reference range is only applicable w hen fasting. Calcium-Uncorrected 8.4-10.2 Normal (applies to non-nume claudia results) [facility] Corrected Calcium 8.4-10.2 Normal (applies to non-numeri c results) [facility] Bilirubin,Total 0.2-1.3 Normal (applies to non-numeric results) [facility] Bilirubin,Direct 0.0-0.3 Normal (applies to non-numeric results) [facility] SGOT(AST) 32 U/L 14-36 Normal (applies to non-numeric resul ts) [facility] SGPT(ALT) 35 U/L 9-52 Normal (applies to non-numeric resul ts) [facility] Alkaline Phosphatase 70 U/L 38-126 Normal (applies to non-num clementine results) [facility] can increase Alkaline Phosp le vels up to 2 times the normal adult value. Normal values for children and adolescents are 2 to 3 times the normal adult value. CPK 172 U/L 26-192 Normal (applies to non-numeric resul ts) [facility] Total Protein 6.3-8.2 Normal (applies to non-numeric re sults) [facility] Albumin 3.5-5.0 Normal (applies to non-numeric resul ts) [facility] Thyroid Stimulate Hormone TSH 0.358-3.740 Above high andrea l [facility] ID Date Data Source [id number] 04/17/2020 10:07:00 AM EDT [facility] Name Value Range Interpretation Code Description Data Kassy rce(s) Supporting Document(s) White Blood Count 4.8-10.8 Normal (applies to non-numeri c results) [facility] Red Blood Count 3.68-5.22 Normal (applies to non-numeric results) [facility] Hemoglobin 11.2-15.7 Normal (applies to non-numeric resul ts) [facility] Hematocrit 34.1-44.9 Below low normal [facility] Mean Corpuscular Volume 81-99 Normal (applies to non- numeric results) [facility] Mean Corpuscular Hemoglobin 27.0-33.0 Normal (appli es to non-numeric results) [facility] Mean Corpuscular HGB Conc 32.0-36.0 Normal (applies to no n-numeric results) [facility] Red Cell Distribution Width 11.5-14.5 Normal (appli es to non-numeric results) [facility] Platelet Count 197 X10 3/uL 130-450 Normal (applies to non-numeric results) [facility] Mean Platelet Volume 9.5-12.7 Normal (applies to non-num clementine results) [facility] Imm Grans% (AUTO) 0 % 0-2 Normal (applies to non-numeri c results) [facility] Neutrophils % (AUTO) 46 % 40-75 Normal (applies to non-num clementine results) [facility] Lymphocytes % (AUTO) 42 % 21-46 Normal (applies to non-num lcementine results) [facility] Monocytes % (AUTO) 9 % 5-12 Normal (applies to non-numer ic results) [facility] Eosinophils % (AUTO) 3 % 1-5 Normal (applies to non-num clementine results) [facility] Basophils % (AUTO) 1 % 0-1 Normal (applies to non-numer ic results) [facility] Imm Grans# (AUTO) 0.0-0.5 Normal (applies to non-numeri c results) [facility] Neutrophils # (AUTO) 1.5-8.1 Normal (applies to non-num clementine results) [facility] Lymphocytes # (AUTO) 1.0-3.1 Normal (applies to non-num clementine results) [facility] Monocytes # (AUTO) 0.2-1.3 Normal (applies to non-numer ic results) [facility] Eosinophils# (AUTO) 0.0-0.5 Normal (applies to non-nume claudia results) [facility] Basophils # (AUTO) 0.0-0.1 Normal (applies to non-numer ic results) [facility] ID Date Data Source [id number] 04/16/2020 11:13:00 AM EDT [facility] Name Value Range Interpretation Code Description Data Kassy rce(s) Supporting Document(s) Respiratory specimen severe acute respir atory syndrome coronavirus 2 (SARS-CoV-2) RNA [facility] ital This lab was ordered by [facility] lola and reported by [facility]. ID Date Data Source [id number] 04/16/2020 03:13:00 PM EDT [facility] Name Value Range Interpretation Code Description Data Kassy rce(s) Supporting Document(s) Opiate Screen,Urine Negative Normal (applies to non-nume claudia results) [facility] Amphetamine Screen,Urine Negative Normal (applies to non -numeric results) [facility] Benzodiazepines Scrn,Ur result Negative N ormal (applies to non-numeric results) [facility] Cocaine Screen,Urine Negative Normal (applies to non-num clementine results) [facility] Methadone Screen,Urine Negative Normal (applies to non-n umeric results) [facility] Cannabinoid Screen, Ur Negative Normal (applies to non-n umeric results) [facility] Therapeutic Drug Ranges for Emergency an d Rehabilitation Threshold Levels (ng/mL) Cocaine 300 Opiates 300 Cannabinoids 50 Barbiturates 200 Benzodiazepine 200 Methadone 300 Amphetamines 1000 All positive find ings are presumptive and unconfirmed. Confirmation of positive results are performed only at request of provider. Unconfirmed results must not be used for non-medical purposes (i.e. pre-employment and legal purposes) ID Date Data Source [id number] 04/16/2020 02:00:00 PM EDT [facility] Name Value Range Interpretation Code Description Data Kassy rce(s) Supporting Document(s) Color,Urine Yellow Normal (applies to non-numeric resu lts) [facility] Clarity,Urine Clear Normal (applies to non-numeric re sults) [facility] Specific [place],Urine 1.001-1.030 Normal (applies to non- numeric results) [facility] PH,Urine 5.0-8.0 Normal (applies to non-numeric resul ts) [facility] Protein,Urine Negative Normal (applies to non-numeric re sults) [facility] Glucose,Urine (UA) Negative Normal (applies to non-numer ic results) [facility] Ketones,Urine Negative Normal (applies to non-numeric re sults) [facility] Blood,Urine Negative Normal (applies to non-numeric resu lts) [facility] Bilirubin,Urine Negative Normal (applies to non-numeric results) [facility] Urobilinogen,Urine Norm 0.2-1 Normal (applies to non-numer ic results) [facility] Leukocyte Esterase,Urine Negative Normal (applies to non -numeric results) [facility] Nitrite,Urine Negative Normal (applies to non-numeric re sults) [facility] ID Date Data Source [id number] 04/16/2020 02:00:00 PM EDT [facility] Name Value Range Interpretation Code Description Data Kassy rce(s) Supporting Document(s) Urine HCG Negative Normal (applies to non-numeric resul ts) [facility] ID Date Data Source [id number] 04/16/2020 11:13:00 AM EDT [facility] First test? UNKNOWNEmployed in [facility] re? UNKNOWNSymptomatic per CDC? UNKNOWNHospitalized? UNKNOWNICU? UNKNOWNResident in congregated care? ex [facility], [facility] UNKNOWN? UNKNOWN Name Value Range Interpretation Code Description Data Kassy rce(s) Supporting Document(s) SARS-CoV-2 RNA Negative Normal (applies to non-numeric r esults) [facility] Negative results should be treated as [...] Certificate of Accreditation. Factsheets for healthcare providers: https://www.fda.gov/media/611582/download Factsheets for patients: https://www.fda.gov/media/701933/download THIS IS A STATE REPORTABLE COMMUNICABLE DISEASE. Manual entry verified by Jessika Villareal 04/16/20 1112 Procedure Social History Code Duration Value Status Description Data Source(s ) Smoking 04/14/2021 12:00:00 AM EDT Smoker, current status unkn own completed Smoker, current status unknown [facility] ([facility]) 09/15/2020 12:00:00 AM EST Heavy cigarette smoker (20- 39 cigs/day) completed Heavy cigarette smoker (20-39 cigs/day) [facility] ([facility]) Vital Signs ID Date Data Source UNK Name Value Range Interpretation Code Description Data Source(s) Diastolic blood pressure 73 mm[Hg] 73 mm[Hg] [facility] ([facility]) Systolic blood pressure 104 mm[Hg] 104 mm[Hg] A [facility]NA ([facility]) Body weight 1920 [oz_av] 1920 [oz_av] [facility] ([facility]) Body height 154.94 cm 154.94 cm [facility]) Body weight 59.239 kg 59.239 kg [facility] ([facility]) Systolic blood pressure 120 mm[Hg] 120 mm[Hg] N [facility] ([facility]) Diastolic blood pressure 77 mm[Hg] 77 mm[Hg] [facility] ([facility]) Body mass index (BMI) [Ratio] 24.68 kg/m2 24.68 kg/m2 [facility] ([facility]) Body height 154.94 cm 154.94 cm [facility] Body weight 58.967 kg 58.967 kg [facility] Body mass index (BMI) [Ratio] 24.56 kg/m2 24.56 kg/m2 [facility] ([facility]) ID Date Data Source [id number] 02/23/2021 10:02:00 AM EDT [facility] Name Value Range Interpretation Code Description Data Source(s) Weight (Calculated Kilograms) 55.34 55.34 [facility] Height (Calculated Centimeters) 154.94 154. 94 [facility] Body Mass Index (BMI) 23.0 23.0 [facility] ID Date Data Source [id number] 03/09/2021 03:19:00 PM EDT [facility] Name Value Range Interpretation Code Description Data Source(s) Weight Measurement Method 1 1 [facility] Weight (Calculated Kilograms) 55.34 55.34 [facility] Weight 2144 2144 [facility] Temperature Source 7 7 [facility] Temperature 96.4 96.4 [facility] Respiratory Effort 1 1 [facility] Respiratory Rate 16 16 [facility] Pulse Assessment Method 4 4 [facility] Pulse Rate 117 117 [facility] Height (Calculated Centimeters) 154.94 154. 94 [facility] Height 61 61 [facility] Blood Pressure 110/70 110/70 [facility] Body Mass Index (BMI) 23.0 23.0 [facility] Weight Measurement Method 1 1 [facility] Weight (Calculated Kilograms) 55.34 55.34 [facility] Weight 2144 2144 [facility] Temperature Source 7 7 [facility] Temperature 96.4 96.4 [facility] Respiratory Effort 1 1 [facility] Respiratory Rate 16 16 [facility] Pulse Assessment Method 4 4 [facility] Pulse Rate 117 117 [facility] Height (Calculated Centimeters) 154.94 154. 94 [facility] Height 61 61 [facility] Blood Pressure 110/70 110/70 [facility] Body Mass Index (BMI) 23.0 23.0 [facility] Weight Measurement Method 1 1 [facility] Weight (Calculated Kilograms) 55.34 55.34 [facility] Weight 2144 2144 [facility] Temperature Source 7 7 [facility] Temperature 96.4 96.4 [facility] Respiratory Effort 1 1 [facility] Respiratory Rate 16 16 [facility] Pulse Assessment Method 4 4 [facility] Pulse Rate 117 117 [facility] Height (Calculated Centimeters) 154.94 154. 94 [facility] Height 61 61 [facility] Blood Pressure 110/70 110/70 [facility] Body Mass Index (BMI) 23.0 23.0 [facility] Weight Measurement Method 1 1 [facility] Weight (Calculated Kilograms) 55.34 55.34 [facility] Weight 1983 1983 [facility] Temperature Source 7 7 [facility] Temperature 97.3 97.3 [facility] Respiratory Effort 1 1 [facility] Respiratory Rate 14 14 [facility] Pulse Assessment Method 4 4 [facility] Pulse Rate 69 69 [facility] Height (Calculated Centimeters) 154.94 154. 94 [facility] Height 61 61 [facility] Blood Pressure 112/79 112/79 [facility] Body Mass Index (BMI) 23.0 23.0 [facility] Weight Measurement Method 1 1 [facility] Weight (Calculated Kilograms) 55.34 55.34 [facility] Weight 1983 1983 [facility] Temperature Source 7 7 [facility] Temperature 97.1 97.1 [facility] Respiratory Effort 1 1 [facility] Respiratory Rate 16 16 [facility] Pulse Assessment Method 4 4 [facility] Pulse Rate 74 74 [facility] Height (Calculated Centimeters) 154.94 154. 94 [facility] Height 61 61 [facility] Blood Pressure 110/74 110/74 [facility] Body Mass Index (BMI) 23.0 23.0 [facility] Weight (Calculated Kilograms) 56.25 56.25 [facility] Height (Calculated Centimeters) 154.94 154. 94 [facility] Body Mass Index (BMI) 23.4 23.4 [facility] ID Date Data Source [id number] 05/07/2020 09:12:00 AM EDT [facility] Name Value Range Interpretation Code Description Data Source(s) Weight (Calculated Kilograms) 56.25 56.25 [facility] Height (Calculated Centimeters) 154.94 154. 94 [facility] Body Mass Index (BMI) 23.4 23.4 [facility] Weight (Calculated Kilograms) 56.25 56.25 [facility] Height (Calculated Centimeters) 154.94 154. 94 [facility] Body Mass Index (BMI) 23.4 23.4 [facility] Weight (Calculated Kilograms) 56.25 56.25 [facility] Height (Calculated Centimeters) 154.94 154. 94 [facility] Body Mass Index (BMI) 23.4 23.4 [facility] Weight (Calculated Kilograms) 56.25 56.25 [facility] Height (Calculated Centimeters) 154.94 154. 94 [facility] Body Mass Index (BMI) 23.4 23.4 [facility] ID Date Data Source [id number] 05/19/2020 05:30:00 AM EDT [facility] Name Value Range Interpretation Code Description Data Source(s) Weight Measurement Method 1 1 [facility] Weight (Calculated Kilograms) 56.25 56.25 [facility] Weight 2063 2063 [facility] Temperature Source 7 7 [facility] Temperature 97.5 97.5 [facility] Respiratory Effort 1 1 [facility] Respiratory Rate 15 15 [facility] Pulse Assessment Method 4 4 [facility] Pulse Rate 83 83 [facility] Height (Calculated Centimeters) 154.94 154. 94 [facility] Height 61 61 [facility] Blood Pressure 109/75 109/75 [facility] Body Mass Index (BMI) 23.4 23.4 [facility] Weight Measurement Method 1 1 [facility] Weight (Calculated Kilograms) 56.25 56.25 [facility] Weight 2063 2063 [facility] Temperature Source 7 7 [facility] Temperature 97.5 97.5 [facility] Respiratory Effort 1 1 [facility] Respiratory Rate 15 15 [facility] Pulse Assessment Method 4 4 [facility] Pulse Rate 83 83 [facility] Height (Calculated Centimeters) 154.94 154. 94 [facility] Height 61 61 [facility] Blood Pressure 109/75 109/75 [facility] Body Mass Index (BMI) 23.4 23.4 [facility] Weight Measurement Method 1 1 [facility] Weight (Calculated Kilograms) 56.25 56.25 [facility] Weight 2063 2063 [facility] Temperature Source 7 7 [facility] Temperature 97.5 97.5 [facility] Respiratory Effort 1 1 [facility] Respiratory Rate 15 15 [facility] Pulse Assessment Method 4 4 [facility] Pulse Rate 83 83 [facility] Height (Calculated Centimeters) 154.94 154. 94 [facility] Height 61 61 [facility] Blood Pressure 109/75 109/75 [facility] Body Mass Index (BMI) 23.4 23.4 [facility] Weight Measurement Method 1 1 [facility] Weight (Calculated Kilograms) 56.25 56.25 [facility] Weight 2063 2063 [facility] Temperature Source 7 7 [facility] Temperature 97.5 97.5 [facility] Respiratory Effort 1 1 [facility] Respiratory Rate 15 15 [facility] Pulse Assessment Method 4 4 [facility] Pulse Rate 83 83 [facility] Height (Calculated Centimeters) 154.94 154. 94 [facility] Height 61 61 [facility] Blood Pressure 109/75 109/75 [facility] Body Mass Index (BMI) 23.4 23.4 [facility] Weight Measurement Method 1 1 [facility] Weight (Calculated Kilograms) 56.25 56.25 [facility] Weight 1983 1983 [facility] Temperature Source 7 7 [facility] Temperature 96.9 96.9 [facility] Respiratory Effort 1 1 [facility] Respiratory Rate 15 15 [facility] Pulse Assessment Method 4 4 [facility] Pulse Rate 90 90 [facility] Height (Calculated Centimeters) 154.94 154. 94 [facility] Height 61 61 [facility] Blood Pressure 104/67 104/67 [facility] Body Mass Index (BMI) 23.4 23.4 [facility] Weight Measurement Method 1 1 [facility] Weight (Calculated Kilograms) 56.25 56.25 [facility] Weight 1983 1983 [facility] Temperature Source 7 7 [facility] Temperature 97.8 97.8 [facility] Respiratory Effort 1 1 [facility] Respiratory Rate 17 17 [facility] Pulse Assessment Method 4 4 [facility] Pulse Rate 93 93 [facility] Height (Calculated Centimeters) 154.94 154. 94 [facility] Height 61 61 [facility] Blood Pressure 110/87 110/87 [facility] Body Mass Index (BMI) 23.4 23.4 [facility] Weight (Calculated Kilograms) 72.12 72.12 [facility] Height (Calculated Centimeters) 154.94 154. 94 [facility] Body Mass Index (BMI) 30.0 30.0 [facility] Patient Treatment Plan of Care [...] Oral Strip [Suboxon e] 01/18/2021 12:00:00 AM [facility] Metronidazole 500 MG Oral Tablet 09/22/2020 12:00:00 AM EST [facility] ([facility]) 168 HR Ethinyl Estradiol 0.02870 MG/HR / norelgestromin 0.84408 MG/HR Transdermal Patch [Xulane] 03/03/2020 12:00:00 AM EDT [facility] ([facility]) Trazodone Hydrochloride 100 MG Oral Tablet [facility] ([facility]) topiramate 50 MG Oral Tablet [facility] ([facility]) topiramate 25 MG Oral Tablet [facility] ([facility]) Sulfamethoxazole 800 MG / Trimethoprim 160 MG Oral Tablet [facility] ([facility]) Sertraline 50 MG Oral Tablet [facility] ([facility]) Sertraline 25 MG Oral Tablet [facility] ([facility]) Sertraline 100 MG Oral Tablet [facility] ([facility]) Risperidone 3 MG Oral Tablet [facility] ([facility]) Risperidone 2 MG Oral Tablet [facility] ([facility]) Prazosin 2 MG Oral Capsule A THENA ([facility]) Prazosin 1 MG Oral Capsule A THENA ([facility]) 24 HR paliperidone 6 MG Extended Release Oral Tablet [facility] ([facility]) 24 HR paliperidone 3 MG Extended Release Oral Tablet [facility] ([facility]) 24 HR Oxybutynin chloride 5 MG Extended Release Oral Tablet [facility] ([facility]) 24 HR Oxybutynin chloride 10 MG Extended Release Oral Tablet [facility] ([facility]) olanzapine 5 MG Oral Tablet [facility] ([facility]) olanzapine 5 MG Disintegrating Oral Tablet [facility] ([facility]) benztropine mesylate 1 MG Oral Tablet [facility] ([facility]) atomoxetine 40 MG Oral Capsule [facility] ([facility]) atomoxetine 10 MG Oral Capsule [facility] ([facility]) aripiprazole 2 MG Oral Tablet [facility] ([facility]) Amitriptyline Hydrochloride 25 MG Oral Tablet [facility] ([facility]) Sertraline 50 MG Oral Tablet [Zoloft] [facility]. Risperidone 3 MG Oral Tablet [Risperdal] [facility] Prazosin 2 MG Oral Capsule [Minipress] [facility]. olanzapine 15 MG Oral Tablet [facility] Mirtazapine 15 MG Oral Tablet [facility] gabapentin 600 MG Oral Tablet [facility] Docusate Sodium 100 MG Oral Capsule [Colace] [facility]. Buprenorphine 8 MG / Naloxone 2 MG Oral Strip [Suboxone] [facility]. topiramate 50 MG Oral Tablet [Topamax] [facility] ([facility]) olanzapine 10 MG Oral Tablet [facility] ([facility]) Naproxen 500 MG Oral Tablet [facility] ([facility]) Mirtazapine 15 MG Oral Tablet [facility] ([facility]) Metronidazole 500 MG Oral Tablet [facility] ([facility]) Loratadine 10 MG Oral Tablet [facility] ([facility]) Levothyroxine Sodium 0.05 MG Oral Tablet [facility] ([facility]) Hydroxyzine Hydrochloride 50 MG Oral Tablet [facility] ([facility]) Hydroxyzine Hydrochloride 25 MG Oral Tablet [facility] ([facility]) Haloperidol 2 MG Oral Tablet [facility] ([facility]) Haloperidol 10 MG Oral Tablet [facility] ([facility]) gabapentin 400 MG Oral Capsule [facility] ([facility]) gabapentin 300 MG Oral Capsule [facility] ([facility]) 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 MG Oral Capsule [facility] ([facility]) Fluoxetine 10 MG Oral Capsule [facility] ([facility]) doxycycline hyclate 100 MG Oral Tablet [facility] ([facility]) Docusate Sodium 100 MG Oral Capsule [facility] ([facility]) Divalproex Sodium 500 MG Delayed Release Oral Tablet [facility] ([facility]) Divalproex Sodium 250 MG Delayed Release Oral Tablet [facility] ([facility]) Cephalexin 500 MG Oral Capsule [facility] ([facility]) buspirone hydrochloride 7.5 MG Oral Tablet [facility] ([facility])
[2021-06-12] MEDS ORDERED: TRAZ-252 PO (18:27)
[2021-06-12] MEDS ORDERED: FLUO20CA20 PO (18:27)
[2021-06-12] MEDS ORDERED: BENZ-52 PO (18:27)
[2021-06-12] MEDS ORDERED: BUSP15TA47 PO (18:27)
[2021-06-12] MEDS ORDERED: HOME MED LIST COMPLETE! XX SCH (18:30)
[2021-06-12 19:21] VITALS: BP 125/83
[2021-06-12] MEDS ORDERED: BUPR1SUB5 SL (19:59)
[2021-06-12] MEDS: haloperidoL 5 MG TAB PO SCH (21:00)
[2021-06-12] MEDS: BUPRENORPHINE/NALOXONE 8-2MG SUBLINGUAL TABLET(SUBOXONE) SL SCH (21:00)
--- NOTE | 2021-06-13 08:59 | MHCRPDOC ---
[facility] Consultation Consultation DATE OF CONSULTATION: 06/13/21 CONSULTATION REQUESTED BY: ED team REASON FOR CONSULTATION: Psychosis HISTORY OF THE PRESENT ILLNESS: Patient is a 35 -year-old , female, who has a history of substance-induced psychosis, schizophrenia, polysubstance abuse, and multiple suicide attempts by overdose self presents, patient has multiple past admissions to the [facility], most recently 12/01-, 05/20-, last admission 06/02- where she was started on haldol 5 mg bid and received haldol decanoate 100 mg q28d IM PINZON 06/09, as she had poor response to abilify and continued to psychotic symptoms including hallucinations and paranoia which worsened in the evenings, thinking people were trying to inject her with various drugs, she had limited recollection of the events leading to admission, but endorsed using "rock" and cannabis despite negative toxicology screen, on this admission similar to previous presentations endorses using "rock", toxicology screen is again negative. Per PSA report "Pt reports she is here today because she "felt like people were out to get me and out to hurt me and my children." Pt reports she is "very tired, paranoid, and stressing out due to stuff going on with my kids." Pt reports her children are struggling with their grades but would not elaborate any further on what is going on with her children, or any other stressor. Pt is inconsistent with her responses, first denying stressors, then reporting stressors surrounding her children, reporting her appetite and sleep had no issues, then later commenting on how tired she is and how she has been awake for several days unable to sleep. Pt also reported to TW that she could CFS, but later stated she could not and that she needs admission. Pt reports she has a hx of bipolar and schizoaffective disorder. She reports she attends [facility] services for addiction and mh with a hx of [facility] admissions, as recent as a week ago with a discharge 2 days ago. Pt also came into the ED reporting that she had si/hi, but denied both to TW stating "not really sometimes you just say things and you don't mean them" Pt does report substance abuse, stating she smokes about a pack of cigarettes per day, and also uses Rock, and did as recently as today. Pt was visibly preoccupied, looking at things throughout the room when nothing was there, and talking and whispering to someone, when no one except for TW was in the room. Pt reports she won't harm herself or anyone else, but states "I just been up for a couple days and I'm very paranoid and really need to get help for my mh and bad anxiety." [facility], has a history of poor follow up and non-compliance with medications. 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 Per chart review has been tried on amitriptyline BuSpar, gabapentin, Haldol, mirtazapine, sertraline, topiramate, prescribed buprenorphine. Takes gabapentin, nicotine patch, olanzapine, prazosin. Patient was discharged with Suboxone, BuSpar 50 mg twice daily, mirtazapine 15 nightly, Prozac 40 p.o. daily, Abilify maintain a 400 mg IM PINZON which she received May 25, 2021. . Past Medical History Medical Problems 2 sections, umbilical hernia, no head injury or seizure, multiple h ospitalizations, surgeries Family Medical/Psychiatric HX Medical Problems Father's history schizophrenia, no other history, no history of suicide attempts in the family per chart review Addiction History other (other (Uses methamphetamine, bath salts, heroin IV, "rock")) Social History Per chart review and interview:born and raised in [place], raised by her mother, single child. History of trauma, will not elaborate. Lives reportedly with stepfather in apartment, receives SSI. Has not completed high school. She is , 2 kids 15 and 20, reportedly not living in home with her. Stepfather is her support person. Has served time in correction, 1 year for possession and intent to sell drugs. Per chart review Mental Status Examination General Appearance: discheveled, bleach blond hair, appears older than stated age, hospital clothing, sitting in a bed in the ED BHU, avoidant eye contact, looking around the room Build: thin Demeanor: guarded, very figety, withdrawn Eye Contact: poor Activity: slowed, anxious Behavior: restless, withdrawn Speech: clear, spontaneous, slow, decreased amount Mood: "suicidal" Affect: labile, disorganized, internally preoccupied, anxious Thought Process: incoherent, tangential Thought Content (Delusions): persecutory, somatic, paranoia, delusions Thought Content (Other): preoccupied, internal-stimuli Thought Content (Aggressive): none reported Perception (Hallucinations): auditory, visual Perception (Other): none reported Cognition (Impairment of): attention/concentration Cognition(Intelligence Est.): average Oriented: Awake, Alert, Oriented to person and place, not time/date "thinks it is May" Insight: poor Judgment: Poor Psychosis: Psychotic Perceptions Diagnoses Schizoaffective disorder per history Rule out substance-induced psychotic disorder Methamphetamine use disorder, severe Heroin use disorder, severe Tobacco use disorder Hallucinogen use disorder,"rock" Assessment/plan: Patient is a 35 y/o woman with PPH of schizophrenia, schizoaffective disorder, polysubstance use who self presents to the ED after reportedly using "rock", patient likely presents with underlying primary psychotic disorder in context of synthetic drug use. Requested CT due to extensive history of substance use and memory deficits, lack of orientation, which was negative and patient medically cleared to [facility], labs unremarkable. Patient should be restarted on home medications including haldol 5 mg bid, due for next haldol decanoate within 3 days of 07/09, patient may benefit from inpatient rehab, further neurological workup if memory deficits persist despite treatment, patient reports has an outpatient neurologist/neurology appointment. Vital Signs Vital Signs Date Time Temp Pulse Resp B/P (MAP) Pulse Ox O2 Delivery O2 Flow Rate FiO2 06/12/21 19:21 97.8 82 16 125/83 (97) 06/12/21 14:00 98 Room Air Laboratory Data 24H Labs Laboratory Tests 2 06/12/21 10:48: Nucleated Red Blood Cells % (auto) 0.0, Anion Gap 8, Glomerular Filtration Rate > 60.0, Calcium Level 9.8, Total Bilirubin 0.2, Direct Bilirubin 0.1, Aspartate Amino Transf (AST/SGOT) 34, Alanine Aminotransferase (ALT/SGPT) 50, Alkaline Phosphatase 104, Total Protein 8.7H, Albumin 4.2, Albumin/Globulin Ratio 0.9L, Thyroid Stimulating Hormone (TSH) 2.960, Human Chorionic Gonadotropin, Qual NEGATIVE, Salicylates Level 2.5L, Urine Opiates Screen NEGATIVE, Urine Methadone Screen NEGATIVE, Acetaminophen Level < 2.0L, Urine Barbiturates Screen NEGATIVE, Urine Phencyclidine Screen NEGATIVE, Urine Amphetamines Screen NEGATIVE, Urine Benzodiazepines Screen NEGATIVE, Urine Cocaine Metabolite Screen NEGATIVE, Urine Cannabinoids Screen NEGATIVE, Ethyl Alcohol Level < 0.003, Coronavirus (COVID- 19)(PCR) NEGATIVE, Influenza Type A (RT-PCR) NEGATIVE, Influenza Type B (RT-PCR) NEGATIVE, Respiratory Syncytial Virus (PCR) NEGATIVE Home Medications Current Medications Current Medications Medications (Trade) Dose Ordered Sig/René Route PRN Reason Start Time Stop Time Status Last Admin Dose Admin Acetaminophen (Tylenol Tab) 650 mg Q6HP PRN PO HEADACHE or MILD DISCOMFORT 06/12/21 17:30 Al Hydrox/Mg Hydrox/Simethicone (Mylanta) 30 ml Q4HP PRN PO HEARTBURN/INDIGESTION 06/12/21 17:30 Buprenorphine/ Naloxone (Suboxone 2/ 0.5mg) 1 tab DAILY SL 06/13/21 09:00 Buprenorphine/ Naloxone (Suboxone 8/2mg) 1 tab BID@0900,1600 SL 06/12/21 21:00 Haloperidol (Haldol) 5 mg BID PO 06/12/21 21:00 Haloperidol (Haldol) 5 mg Q6HP PRN PO ANXIETY/AGITATION 06/12/21 17:30 Home Med (Home Med List Complete!) ASDIRECTED XX 06/12/21 18:30 06/12/21 18:31 DC Lorazepam (Ativan) 1 mg STAT STAT PO 06/12/21 14:37 06/12/21 14:38 DC 06/12/21 14:44 Magnesium Hydroxide (Milk Of Magnesia) 30 ml DAILYPRN PRN PO CONSTIPATION 06/12/21 17:30 Trazodone HCl (Desyrel) 50 mg QHSP PRN PO INSOMNIA 06/12/21 17:30 Scheduled Atomoxetine Hydrochloride (Strattera) 60 Mg Capsule, 60 MG PO DAILY, (Reported) Benztropine Mesylate (Benztropine Mesylate) 1 Mg Tablet, 1 MG PO BID, (Reported) Buprenorphine HCl/Naloxone HCl (Suboxone 2 mg-0.5 mg Sl Film) 1 Each Film, 1 STRIP SL QHS, (Reported) Buprenorphine HCl/Naloxone HCl (Buprenorphin-Naloxon 8-2 mg Sl) 1 Each Tab.subl, 1 TAB SL BID for ., (Reported) QHS DOSE TAKEN WITH 2MG-0.5MG FOR TOTAL OF 10MG QHS Buspirone HCl (Buspirone HCl) 15 Mg Tablet, 15 MG PO TID, (Reported) Docusate Sodium (Docusate Sodium) 100 Mg Capsule, 100 MG PO DAILY, (Reported) Fluoxetine Hcl (Fluoxetine HCl) 20 Mg Capsule, 20 MG PO DAILY, (Reported) Gabapentin (Gabapentin) 600 Mg Tablet, 600 MG PO TID, (Reported) Mupirocin (Mupirocin) 2 % Oint...g., 1 DOSE EXT BID, (Reported) STARTED ON 05/13/21, APPLY TO WOUND ON RIGHT ARM Oxybutynin Chloride (Oxybutynin Chloride) 5 Mg Tablet, 5 MG PO BID, (Reported) Topiramate (Topiramate) 100 Mg Tablet, 100 MG PO DAILY, (Reported) Trazodone HCl (Trazodone HCl) 50 Mg Tablet, 50 MG PO QHS, (Reported) Allergies Coded Allergies: No Known Allergies (Verified , 06/02/20) BRANDI ESTES MD Jun 13, 2021 08:59
[2021-06-13] MEDS: BUPRENORPHINE/NALOXONE 8-2MG SUBLINGUAL TABLET(SUBOXONE) SL SCH ×2 (09:00→16:00)
[2021-06-13] MEDS: haloperidoL 5 MG TAB PO SCH ×2 (09:00→20:37)
[2021-06-13] MEDS: BUPRENORPHINE/NALOXONE 2-0.5MG SUBLINGUAL TABLET(SUBOXONE) SL SCH (09:00)
--- NOTE | 2021-06-13 11:12 | MHHPEPDOC ---
General Legal Status: 9.39 Chief Complaint "People were trying to get me. History of Present Illness HISTORY OF THE PRESENT ILLNESS: Per Dr. Asher's initial evaluation "Patient is a 35 -year-old , female, who has a history of substance-induced psychosis, schizophrenia, polysubstance abuse, and multiple suicide attempts by overdose self presents, patient has multiple past admissions to the [facility], most recently 12/01-, 05/20-, last admission where she was started on haldol 5 mg bid and received haldol decanoate 100 mg q28d IM PINZON 06/09, as she had poor response to abilify and continued to psychotic symptoms including hallucinations and paranoia which worsened in the evenings, thinking people were trying to inject her with various drugs, she had limited recollection of the events leading to admission, but endorsed using "rock" and cannabis despite negative toxicology screen, on this admission similar to previous presentations endorses using "rock", toxicology screen is again negative. Per PSA report "Pt reports she is here today because she "felt like people were out to get me and out to hurt me and my children." Pt reports she is "very tired, paranoid, and stressing out due to stuff going on with my kids." Pt reports her children are struggling with their grades but would not elaborate any further on what is going on with her children, or any other stressor. Pt is inconsistent with her responses, first denying stressors, then reporting stressors surrounding her children, reporting her appetite and sleep had no issues, then later commenting on how tired she is and how she has been awake for several days unable to sleep. Pt also reported to TW that she could CFS, but later stated she could not and that she needs admission. Pt reports she has a hx of bipolar and schizoaffective disorder. She reports she attends [facility] for OP services for addiction and mh with a hx of [facility] admissions, as recent as a week ago with a discharge 2 days ago. Pt also came into the ED reporting that she had si/hi, but denied both to TW stating "not really sometimes you just say things and you don't mean them" Pt does report substance abuse, stating she smokes about a pack of cigarettes per day, and also uses Rock, and did as recently as today. Pt was visibly preoccupied, looking at things throughout the room when nothing was there, and talking and whispering to someone, when no one except for TW was in the room. Pt reports she won't harm herself or anyone else, but states "I just been up for a couple days and I'm very paranoid and really need to get help for my mh and bad anxiety." Patient was previously discharged with [facility] follow-up, has a history of poor follow up and non-compliance with medications." Reviewed today with patient reasons for admission and she stated similar reasons. Noting that people were trying to kill her and take her money. She endorsed using heroin and "Rock", which is slightly different than the cannabis and Rock that was reported during the initial interview. Of note she does have a negative tox screen from this admission as well. She was quite sedated and sleepy today, not wanting to get out of bed, not wanting to open her eyes and look at me while we talked. She endorses that medications have not been very helpful in the past but then also stated that risperidone has been helpful. Review of past admissions indicates that risperidone had not manage her symptoms well and she has had been put on Haldol and Haldol Decanoate. She was not cooperative at today's interview and requested to sleep instead, review of the CT from yesterday shows no evidence of significant brain changes. Psychiatric Review of Systems Depression (2 or more weeks): depressed mood, anhedonia, insomnia/hypersomnia, decreased energy Kriss (4 or more days of): engages in risky behavior Psychosis: auditory hallucination (Vague and able to describe), visual hallucination (Vague unable to describe) Anxiety: gen/non-specific anxiety Past Psychiatric History Previous Psychiatric Diagnosis: Schizoaffective disorder, multiple substance use disorders including: Opiate, hallucinogen, cannabis, tobacco. Previous Psychiatric Admissions: Multiple previous psychiatric admissions, last discharge from [facility] on 06/10/2021 Suicide Attempts: History of multiple past suicide attempts. Psychiatric Follow-up: Follows with substance abuse counseling at [facility], has a history of poor follow-up with care. Psychiatric medications: Currently taking Haldol Decanoate, Oral haloperidol, and buprenorphine. History of past trials of multiple different medications including multiple version second-generation psychotics, SSRI medications, BuSpar, and many other medications in attempt to control symptoms. Past Medical History Medical Problems No significant medical history, has a history of 2 section Head Injury: No Seizures: No Hospitalizations: Yes Surgeries: Yes Family Medical/Psychiatric HX Medical Problems None documented in chart, patient unable to answer Psychiatric Disorders: Yes (Schizophrenia) Addiction: No Suicide Attemps/Completions: No Addiction History nicotine, amphetamines, opioids, methamphetamines, heroin, other (Hallucinogens) Social History Childhood: Difficult childhood which patient will discuss. Abuse/Trauma: Reports a history of trauma but does not want to talk about this. Current Living Situation: Lives alone in an apartment, utilizes SSI. Education: Did not complete high school. Employment: Unemployed, on SSI. Social Support: Has a stepfather who still provide some support for her. Legal: History of being incarcerated for possession of drugs. Marital: , has 2 children from marriage. Mental Status Examination General Appearance: disheveled, hospital scubs/clothing Build: average Demeanor: withdrawn Activity: slowed Behavior: cooperative, withdrawn Speech: clear, normal volume, non-spontaneous, impoverished Mood: depressed Affect: flat Thought Process: blocked, depressed, slow Thought Content (Delusions): persecutory, paranoia, other (Denies suicidal or homicidal ideation) Thought Content (Other): guarded, appears paranoid Thought Content (Aggressive): none reported Perception (Hallucinations): auditory, visual Perception (Other): none reported Cognition (Impairment of): memory, attention/concentration, ability to abstract Cognition(Intelligence Est.): borderline Insight: poor Judgment: Poor Psychosis: Abstract Thinking, Psychotic Perceptions Diagnoses Schizoaffective, depressed type Unspecified neurocognitive disorder, likely secondary to persistent substance use Other specified substance use disorder, rule out synthetic cannabinoid use disorder History of cannabis use disorder History of tobacco use disorder History of methamphetamine use disorder A-FIB/CHADSVASC A-FIB History Current/History of A-Fib/PAF?: No Assessment 35-year-old female with a history of multiple substance use disorders and psychotic symptoms with depressed mood. Presenting with initially depressed mood and persecutory thoughts of people trying to kill her. Today is quite withdrawn, demonstrating a depressed mood, continues to report delusional thoughts that people are chasing her for her money. Endorses feeling safe in the unit, denies having current suicidal or homicidal ideation. Initial CT demonstrated demonstrated no brain changes which would be consistent with volume loss secondary to substance use. There may be evidence for attempting a functional MRI to determine areas of enhance glucose uptake to determine which sections of her brain may be underfunctioning or functioning and contributing to her symptoms. Of note she is noncompliant with treatment when she leaves the hospital, she continues to not take medications and has repeatedly presented the hospital multiple times in the past several months. Currently appears to have difficulty caring for self and managing her symptoms, will continue to recommend hospitalization for stabilization and safety at this time. As she is off of antidepressant medications at this time will restart fluoxetine as this appears to been well-tolerated during previous admissions. We will also consider restarting buspirone to manage anxiety. Given her poor functioning she may benefit from transfer to a longer term hospitalization or other supportive living facility. Problem List Problems: (1) Psychotic disorder Status: Acute (2) Substance abuse Status: Acute (3) Schizoaffective disorder Status: Acute Initial Treatment Plan 1. Patient was admitted on a [9.39] status. 2. Complete history was obtained. 3. With patients permission, family will be contacted and database will be expanded. 4. Patients medication regimen will be reviewed and changed accordingly. 5. Patient will be provided with protected environment. 6. Patient will be treated with individual, group, and milieu therapies. 7. Patient will receive supportive psych-education. 8. Discharge planning will commence immediately. 9. Outpatient follow-up treatment will be strongly recommended. 10. The initial treatment plan will focus initially on: * Depression. * Risk for suicide. ESTIMATED LENGTH OF STAY: 7-10 DAYS. TIME SPENT COUNSELING AND COORDINATING INITIAL CARE: 45 minutes. Tobacco Cessation Screen If Patient is a Smoker Yes, refuses treatment Tobacco Cessation Tx Ordered?: Yes Complete/Results docum. Vital Signs Vital Signs Date Time Temp Pulse Resp B/P (MAP) Pulse Ox O2 Delivery O2 Flow Rate FiO2 06/12/21 19:21 97.8 82 16 125/83 (97) 06/12/21 14:00 98 Room Air Medications Scheduled Atomoxetine Hydrochloride (Strattera) 60 Mg Capsule, 60 MG PO DAILY, (Reported) Benztropine Mesylate (Benztropine Mesylate) 1 Mg Tablet, 1 MG PO BID, (Reported) Buprenorphine HCl/Naloxone HCl (Suboxone 2 mg-0.5 mg Sl Film) 1 Each Film, 1 STRIP SL QHS, (Reported) Buprenorphine HCl/Naloxone HCl (Buprenorphin-Naloxon 8-2 mg Sl) 1 Each Tab.subl, 1 TAB SL BID for ., (Reported) QHS DOSE TAKEN WITH 2MG-0.5MG FOR TOTAL OF 10MG QHS Buspirone HCl (Buspirone HCl) 15 Mg Tablet, 15 MG PO TID, (Reported) Docusate Sodium (Docusate Sodium) 100 Mg Capsule, 100 MG PO DAILY, (Reported) Fluoxetine Hcl (Fluoxetine HCl) 20 Mg Capsule, 20 MG PO DAILY, (Reported) Gabapentin (Gabapentin) 600 Mg Tablet, 600 MG PO TID, (Reported) Mupirocin (Mupirocin) 2 % Oint...g., 1 DOSE EXT BID, (Reported) STARTED ON 05/13/21, APPLY TO WOUND ON RIGHT ARM Oxybutynin Chloride (Oxybutynin Chloride) 5 Mg Tablet, 5 MG PO BID, (Reported) Topiramate (Topiramate) 100 Mg Tablet, 100 MG PO DAILY, (Reported) Trazodone HCl (Trazodone HCl) 50 Mg Tablet, 50 MG PO QHS, (Reported) Allergies Coded Allergies: No Known Allergies (Verified , 06/02/20) DORITA MARKS MD Jun 13, 2021 11:12
[2021-06-13] MEDS: FLUoxetine 20 MG CAP PO SCH (11:39)
[2021-06-13] MEDS: busPIRone 10 MG TAB PO SCH ×2 (11:39→20:37)
--- NOTE | 2021-06-13 14:21 | HPEPDOC ---
General Date of Admission Jun 12, 2021 at 17:30 Date of Service: Jun 13, 2021 Chief Complaint The patient is a 35-year-old female admitted with a reason for visit of Schizoaffective Disorder. History of Present Illness Patient is a 35 y/o F with PMH of depression, anxiety, schizoaffective disorder, history of substance - induced psychosis, multiple suicide attempts by overdose presented to ER at [facility] paranoid thoughts. She was admitted to mental health unit for schizoaffective disorder. Patient reportedly took Sylvie and marijuana however her U tox is negative in this admission. Her U tox was negative in the prior admission earlier in the month also. She has been examined here today for medical history and physical. She reports that she feel s very tired and wants to sleep. Did not want to get out of bed and come to the examination room. She did allow me to ask her a few questions and examine her in her room. She denied any fever chills headache denies any cough phlegm denies any abdominal pain nausea vomiting or diarrhea. Home Medications Scheduled Atomoxetine Hydrochloride (Strattera) 60 Mg Capsule, 60 MG PO DAILY, (Reported) Benztropine Mesylate (Benztropine Mesylate) 1 Mg Tablet, 1 MG PO BID, (Reported) Buprenorphine HCl/Naloxone HCl (Suboxone 2 mg-0.5 mg Sl Film) 1 Each Film, 1 STRIP SL QHS, (Reported) Buprenorphine HCl/Naloxone HCl (Buprenorphin-Naloxon 8-2 mg Sl) 1 Each Tab.subl, 1 TAB SL BID for ., (Reported) QHS DOSE TAKEN WITH 2MG-0.5MG FOR TOTAL OF 10MG QHS Buspirone HCl (Buspirone HCl) 15 Mg Tablet, 15 MG PO TID, (Reported) Docusate Sodium (Docusate Sodium) 100 Mg Capsule, 100 MG PO DAILY, (Reported) Fluoxetine Hcl (Fluoxetine HCl) 20 Mg Capsule, 20 MG PO DAILY, (Reported) Gabapentin (Gabapentin) 600 Mg Tablet, 600 MG PO TID, (Reported) Mupirocin (Mupirocin) 2 % Oint...g., 1 DOSE EXT BID, (Reported) STARTED ON 05/13/21, APPLY TO WOUND ON RIGHT ARM Oxybutynin Chloride (Oxybutynin Chloride) 5 Mg Tablet, 5 MG PO BID, (Reported) Topiramate (Topiramate) 100 Mg Tablet, 100 MG PO DAILY, (Reported) Trazodone HCl (Trazodone HCl) 50 Mg Tablet, 50 MG PO QHS, (Reported) Allergies Coded Allergies: No Known Allergies (Verified , 06/02/20) Past Medical History Medical History Bipolar disorder / Depression / Anxiety / Schizoaffective disorder Seizure disorder Migraine headaches Hx of substance induced psychosis Surgical History x 2 Hernia repair, umbilical 2 Family History Father with a history of cirrhosis Mother reported healthy Social History * Smoker: current smoker Alcohol: Denies Drugs: heroin, other (Sylvie) A-FIB/CHADSVASC A-FIB History Current/History of A-Fib/PAF?: No Review of Systems Constitutional: Reports: Fatigue; Denies: Chills, Fever, Night Sweats Eyes: Denies: Pain, Vision change ENT: Denies: Head Aches, Ear Pain, Dysphagia Skin: Denies: Rash, Lesions, Breakdown Pulmonary: Denies: Dyspnea, Cough Cardiovascular: Denies: Chest Pain, Palpitations, Orthopnea, Paroxysmal Noc. Dyspnea, Lt Headedness Gastrointestinal: Denies: Nausea, Vomiting, Abdominal Pain, Diarrhea Genitourinary: Denies: Dysuria, Frequency, Incontinence, Retention Physical Examination General Exam: Positive: Alert, Cooperative, No Acute Distress Eye Exam: Positive: PERRLA, Conjunctiva & lids normal, EOMI; Negative: Sclera icteric ENT Exam: Positive: Atraumatic, Mucous membr. moist/pink, Pharynx Normal Neck Exam: Positive: Supple; Negative: JVD, thyromegaly Chest Exam: Positive: Clear to auscultation, Normal air movement Heart Exam: Positive: Rate Normal, Regular Rhythm, Normal S1, Normal S2; Negative: Murmurs, Rubs Abdomen Exam: Positive: Normal bowel sounds, Soft; Negative: Tenderness Vital Signs Vital Signs Date Time Temp Pulse Resp B/P (MAP) Pulse Ox O2 Delivery O2 Flow Rate FiO2 06/12/21 19:21 97.8 82 16 125/83 (97) 06/12/21 14:00 98 Room Air Assessment/Plan 35-year-old female admitted to inpatient mental health unit for schizoaffective disorder. She is being examined here today for medical history and physical Paranoia, hallucinations, schizoaffective disorder, depression, anxiety Management as per psychiatry Substance use disorder Patient endorses to using Sylvie and marijuana and later on she said that she used Sylvie and heroine However her U tox has been positive this admission and also in prior admission 1 week ago. She may be using synthetic marijuana No acute medical issues at this time Plan / VTE VTE Prophylaxis Ordered?: No (Freely ambulatory) Janet Ortiz MD Jun 13, 2021 12:46
[2021-06-13 16:28] VITALS: BP 100/63
[2021-06-13] MEDS: traZODone 50 MG TAB PO PRN (20:37)
[2021-06-14 06:24] VITALS: BP 111/69
[2021-06-14] MEDS: FLUoxetine 20 MG CAP PO SCH (09:36)
[2021-06-14] MEDS: busPIRone 10 MG TAB PO SCH ×2 (09:36→21:59)
[2021-06-14] MEDS: haloperidoL 5 MG TAB PO SCH (09:36)
[2021-06-14] MEDS: BUPRENORPHINE/NALOXONE 2-0.5MG SUBLINGUAL TABLET(SUBOXONE) SL SCH (09:36)
[2021-06-14] MEDS: BUPRENORPHINE/NALOXONE 8-2MG SUBLINGUAL TABLET(SUBOXONE) SL SCH ×2 (09:36→15:35)
--- NOTE | 2021-06-14 12:57 | MHIPNPDOC ---
[facility] Progress Note Progress Note DATE OF SERVICE: 06/14/21 HISTORY: Reviewed today with patient reasons for admission and she stated similar reasons. Noting that people were trying to kill her and take her money. She endorsed using heroin and "Sylvie", which is slightly different than the cannabis and Sylvie that was reported during the initial interview. Of note she does have a negative tox screen from this admission as well. She was quite sedated and sleepy today, not wanting to get out of bed, not wanting to open her eyes and look at me while we talked. She endorses that medications have not been very helpful in the past but then also stated that risperidone has been helpful. Review of past admissions indicates that risperidone had not manage her symptoms well and she has had been put on Haldol and Haldol Decanoate. She was not cooperative at today's interview and requested to sleep instead, review of the CT from yesterday shows no evidence of significant brain changes. INTERVAL HISTORY: Seen laying in bed today, sat upright and talk to me when addressed. Notes that her depression and her symptoms of paranoia about people chasing her to hurt her are still the same. She feels that the Haldol has not b een helpful but is willing to try a higher dose. We also discussed if she would want to try a higher dose of fluoxetine due to ongoing symptoms of depression. Savita agreed to both these changes and requested that she be restarted on her gabapentin which had not been continued at admission. She also requested nicotine gum due to history of smoking about 1 pack/day outside the hospital. VITAL SIGNS: See below. NEW TEST RESULTS: No new results. CURRENT MEDICATIONS: See below. MENTAL STATUS EXAMINATION: Patient is a 35-year old female, who is dressed in hospital clothing, sitting in bed, slightly disheveled but improved grooming compared to yesterday. Speech: Is speech was spontaneous, clear, with regular rate, rhythm, and volume. Language skills are intact. Thought processes including: Goal-directed but still struggling with psychotic thoughts and paranoia. Thought content: SI without plan, ongoing concerns related to her delusions. Abstract reasoning, and computation: Intact. Description of associations: Linear. Description of abnormal or psychotic thoughts: Reports delusional thoughts about people trying to hurt her and take her money. Judgment: Poor. Insight: Poor. Orientation: X3. Recent and remote memory: Intact. Attention span and concentration: Intact Mood: "Bad". Affect: Dysphoric, extremely blunted near flat, congruent with stated mood. DIAGNOSES: Schizoaffective, depressed type Unspecified neurocognitive disorder, likely secondary to persistent substance use Other specified substance use disorder, rule out synthetic cannabinoid use disorder History of cannabis use disorder History of tobacco use disorder History of methamphetamine use disorder ASSESSMENT: Savita is a 35-year-old man with a significant polysubstance use disorders and likely brain damage secondary to this. She also carries a d iagnosis of schizoaffective, depressed type which is likely exacerbated by her ongoing substance use disorder. She is interested in higher doses of medication to help control symptoms from this however we discussed that this may make her somnolent which she acknowledged but would prefer that to have any ongoing hallucinations. She also feels that higher dose of an antidepressant medication may be helpful to her at this time. MANAGEMENT PLAN: Increase Haldol to 6 mg twice daily, increase fluoxetine to 30 mg daily, restart gabapentin at 300 mg 3 times daily for 1 day then 600 mg 3 times daily. TIME SPENT: 15 minutes. Vital Signs Vital Signs Date Time Temp Pulse Resp B/P (MAP) Pulse Ox O2 Delivery O2 Flow Rate FiO2 06/14/21 09:53 Room Air 06/14/21 06:24 98.5 71 12 111/69 (83) 99 Current Medications Current Medications Medications (Trade) Dose Ordered Sig/René Route PRN Reason Start Time Stop Time Status Last Admin Dose Admin Acetaminophen (Tylenol Tab) 650 mg Q6HP PRN PO HEADACHE or MILD DISCOMFORT 06/12/21 17:30 Al Hydrox/Mg Hydrox/Simethicone (Mylanta) 30 ml Q4HP PRN PO HEARTBURN/INDIGESTION 06/12/21 17:30 Buprenorphine/ Naloxone (Suboxone 2/ 0.5mg) 1 tab DAILY SL 06/13/21 09:00 06/14/21 09:36 Buprenorphine/ Naloxone (Suboxone 8/2mg) 1 tab BID@0900,1600 SL 06/12/21 21:00 06/14/21 09:36 Buspirone HCl (Buspar) 10 mg BID PO 06/13/21 09:00 06/14/21 09:36 Fluoxetine HCl (PROzac) 20 mg DAILY PO 06/13/21 09:00 06/14/21 09:36 Haloperidol (Haldol) 5 mg BID PO 06/12/21 21:00 06/14/21 09:36 Haloperidol (Haldol) 5 mg Q6HP PRN PO ANXIETY/AGITATION 06/12/21 17:30 Home Med (Home Med List Complete!) ASDIRECTED XX 06/12/21 18:30 06/12/21 18:31 DC Lorazepam (Ativan) 1 mg STAT STAT PO 06/12/21 14:37 06/12/21 14:38 DC 06/12/21 14:44 Magnesium Hydroxide (Milk Of Magnesia) 30 ml DAILYPRN PRN PO CONSTIPATION 06/12/21 17:30 Trazodone HCl (Desyrel) 50 mg QHSP PRN PO INSOMNIA 06/12/21 17:30 06/13/21 20:37 Allergies Coded Allergies: No Known Allergies (Verified , 06/02/20) DORITA MARKS MD Jun 14, 2021 12:57
[2021-06-14] MEDS: GABAPENTIN 300 MG CAP PO SCH ×2 (15:33→21:59)
[2021-06-14 16:03] VITALS: BP 108/64
[2021-06-14] MEDS: traZODone 50 MG TAB PO PRN (21:59)
[2021-06-15 06:30] VITALS: BP 92/52
[2021-06-15] MEDS: FLUoxetine 10 MG CAP PO SCH (09:00)
[2021-06-15] MEDS: GABAPENTIN 300 MG CAP PO SCH ×3 (09:00→21:51)
[2021-06-15] MEDS: BUPRENORPHINE/NALOXONE 8-2MG SUBLINGUAL TABLET(SUBOXONE) SL SCH ×2 (09:00→16:00)
[2021-06-15] MEDS: busPIRone 10 MG TAB PO SCH ×2 (09:00→21:51)
[2021-06-15] MEDS: BUPRENORPHINE/NALOXONE 2-0.5MG SUBLINGUAL TABLET(SUBOXONE) SL SCH (09:00)
--- NOTE | 2021-06-15 11:36 | MHIPNPDOC ---
[facility] Progress Note Progress Note DATE OF SERVICE: 06/15/21 HISTORY: Patient is a 35 -year-old , female, who has a history of substance-induced psychosis, schizophrenia, polysubstance abuse, and multiple suicide attempts by overdose self presents, patient has multiple past admissions to the [facility], most recently 12/01-, 05/20-, last admission 06/02- where she was started on haldol 5 mg bid and received haldol decanoate 100 mg q28d IM PINZON 06/09, as she had poor response to abilify and continued to psychotic symptoms including hallucinations and paranoia which worsened in the evenings, thinking people were trying to inject her with various drugs, she had limited recollection of the events leading to admission, but endorsed using "rock" and cannabis despite negative toxicology screen, on this admission similar to previous presentations endorses using "rock", toxicology screen is again negative. Per PSA report "Pt reports she is here today because she "felt like people were out to get me and out to hurt me and my children." Pt reports she is "very tired, paranoid, and stressing out due to stuff going on with my kids." Pt reports her children are struggling with their grades but would not elaborate any further on what is going on with her children, or any other stressor. Pt is inconsistent with her responses, first denying stressors, then reporting stressors surrounding her children, reporting her appetite and sleep had no issues, then later commenting on how tired she is and how she has been awake for several days unable to sleep. Pt also reported to TW that she could CFS, but later stated she could not and that she needs admission. Pt reports she has a hx of bipolar and schizoaffective disorder. She reports she attends [facility] for OP services for addiction and mh with a hx of [facility] admissions, as recent as a week ago with a discharge 2 days ago. Pt also came into the ED reporting that she had si/hi, but denied both to TW stating "not really sometimes you just say things and you don't mean them" Pt does report substance abuse, stating she smokes about a pack of cigarettes per day, and also uses Rock, and did as recently as today. Pt was visibly preoccupied, looking at things throughout the room when nothing was there, and talking and whispering to someone, when no one except for TW was in the room. Pt reports she won't harm herself or anyone else, but states "I just been up for a couple days and I'm very paranoid and really need to get help for my mh and bad anxiety." Interval: States that she is no longer hearing voices, denies suicidal homicidal ideations, is more organized on interview, but states that she has chronic memory problems which he plans again evaluated by outpatient neurologist. Rep orts she applied for some jobs after last discharge but went and used "Rock", also this led to her missing her outpatient appointment with [facility]. Was offered inpatient rehab treatment, but she refused stating this time she plans to go to her outpatient [facility] appointments. Reports chronic paranoia, no further questioning denies as she feels people are after her to in injector with different substances or harm her, but states that she has chronic worries about her kids who are staying with her mother and that she lives with her stepfather and is concerned about how they are doing, including her older son who is 19 and lives independently. States that the anxiety about what is going on in their lives can lead to paranoia and is a trigger for substance abuse, talked about coping skills she can use to work through this with therapist and going to follow-up in outpatient appointments so that she can stay free from drug use, which she endorses worsen psychotic symptoms, other rendon reports stable on medication, no medication side effects apart from some mild sedation. Encouraged to attend groups. VITAL SIGNS: See below. NEW TEST RESULTS: None, see below CURRENT MEDICATIONS: See below. MENTAL STATUS EXAMINATION: Patient is a 35-year old female, who is in no acute distress, bleach blond hair, improved eye contact, calm behavior on interview. Speech: Is spontaneous, mildly slowed, normal amount Language skills are intact. Thought processes including: Linear, logical. Thought content: Today denies suicidal ideation, intent or plan, denies homicidal ideation, intent or plan. Abstract reasoning, and computation: Fair description of associations: Less concrete Description of abnormal or psychotic thoughts: Denies is not observed to be internally preoccupied. Judgment: Improving Insight: Fair, contemplative regarding drug use Orientation: X3 Recent and remote memory: Reports poor Attention span and concentration: Somewhat decreased Language: Sinhala Fund of knowledge: Below average based on interview. Mood: "Okay" affect: Mildly blunted, not disorganized or internally preoccupied, mildly anxious DIAGNOSES: Schizoaffective, depressed type Unspecified neurocognitive disorder, likely secondary to persistent substance use Other specified substance use disorder, rule out synthetic cannabinoid use disorder History of cannabis use disorder History of tobacco use disorder History of methamphetamine use disorder ASSESSMENT: Patient continues to be more organized, responding well to medications, does not appear intoxicated or with withdrawal symptoms, denies medication side effects apart from mild sedation, agreeable to continue on current regimen and possible discharge tomorrow. Was educated about substance use, risks involved with use including , worsening of psychotic symptoms, worsening of anxiety and depression. Patient reports being more motivated to seek a job as she is currently on SSI and that this can be a long-term goal of hers, as boredom can lead to increased anxiety, worry about her kids and drug use. MANAGEMENT PLAN: Continue medications, due for next Haldol decanoate 100 mg q28d IM PINZON 07/09 TIME SPENT: 15 minutes. Vital Signs Vital Signs Date Time Temp Pulse Resp B/P (MAP) Pulse Ox O2 Delivery O2 Flow Rate FiO2 06/15/21 06:30 97.7 56 18 92/52 (65) 95 Room Air Current Medications Current Medications Medications (Trade) Dose Ordered Sig/René Route PRN Reason Start Time Stop Time Status Last Admin Dose Admin Acetaminophen (Tylenol Tab) 650 mg Q6HP PRN PO HEADACHE or MILD DISCOMFORT 06/12/21 17:30 Al Hydrox/Mg Hydrox/Simethicone (Mylanta) 30 ml Q4HP PRN PO HEARTBURN/INDIGESTION 06/12/21 17:30 Buprenorphine/ Naloxone (Suboxone 2/ 0.5mg) 1 tab DAILY SL 06/13/21 09:00 06/14/21 09:36 Buprenorphine/ Naloxone (Suboxone 8/2mg) 1 tab BID@0900,1600 SL 06/12/21 21:00 06/14/21 09:36 Buspirone HCl (Buspar) 10 mg BID PO 06/13/21 09:00 06/14/21 21:59 Fluoxetine HCl (PROzac) 20 mg DAILY PO 06/13/21 09:00 06/14/21 13:00 DC 06/14/21 09:36 Fluoxetine HCl (PROzac) 30 mg DAILY PO 06/15/21 09:00 Gabapentin (Neurontin) 300 mg Taper TID PO 06/14/21 16:00 07/15/21 15:59 06/14/21 21:59 Haloperidol (Haldol) 5 mg BID PO 06/12/21 21:00 06/14/21 13:00 DC 06/14/21 09:36 Haloperidol (Haldol) 5 mg Q6HP PRN PO ANXIETY/AGITATION 06/12/21 17:30 Haloperidol (Haldol) 6 mg BID PO 06/14/21 21:00 06/14/21 21:59 Home Med (Home Med List Complete!) ASDIRECTED XX 06/12/21 18:30 06/12/21 18:31 DC Lorazepam (Ativan) 1 mg STAT STAT PO 06/12/21 14:37 06/12/21 14:38 DC 06/12/21 14:44 Magnesium Hydroxide (Milk Of Magnesia) 30 ml DAILYPRN PRN PO CONSTIPATION 06/12/21 17:30 Trazodone HCl (Desyrel) 50 mg QHSP PRN PO INSOMNIA 06/12/21 17:30 06/14/21 21:59 Allergies Coded Allergies: No Known Allergies (Verified , 06/02/20) BRANDI ESTES MD Jun 15, 2021 11:36
[2021-06-15 19:09] VITALS: BP 95/59
[2021-06-16 06:28] VITALS: BP 98/63
[2021-06-16] MEDS ORDERED: HALO1TAB19 PO (08:03)
[2021-06-16] MEDS ORDERED: GABA-282 PO (08:03)
[2021-06-16] MEDS ORDERED: FLUO10CA16 PO (08:03)
[2021-06-16] MEDS ORDERED: BUSP10TA PO (08:03)
[2021-06-16] MEDS ORDERED: HALD100I2 IM (08:03)
[2021-06-16] MEDS ORDERED: TRAZ-252 PO (08:03)
[2021-06-16] MEDS: BUPRENORPHINE/NALOXONE 8-2MG SUBLINGUAL TABLET(SUBOXONE) SL SCH (08:33)
[2021-06-16] MEDS: busPIRone 10 MG TAB PO SCH (08:33)
[2021-06-16] MEDS: FLUoxetine 10 MG CAP PO SCH (08:33)
[2021-06-16] MEDS: GABAPENTIN 300 MG CAP PO SCH (08:33)
[2021-06-16] MEDS: BUPRENORPHINE/NALOXONE 2-0.5MG SUBLINGUAL TABLET(SUBOXONE) SL SCH (08:33)
--- NOTE | 2021-06-16 13:40 | MHDSPDOC ---
[facility] Discharge Summary Discharge Summary DATE OF ADMISSION: Jun 12, 2021 at 17:30 DATE OF DISCHARGE: Jun 16, 2021 at 11:39 Discharge diagnoses: Schizoaffective, depressed type Unspecified neurocognitive disorder, likely secondary to persistent substance use Other specified substance use disorder, rule out synthetic cannabinoid use disorder History of cannabis use disorder History of tobacco use disorder History of methamphetamine use disorder Reason for admission: Patient is a 35 -year-old , female, who has a history of substance- induced psychosis, schizophrenia, polysubstance abuse, and multiple suicide attempts by overdose self presents, patient has multiple past admissions to the [facility], most recently 12/01-, 05/20-, last admission where she was started on haldol 5 mg bid and received haldol decanoate 100 mg q28d IM PINZON 06/09, as she had poor response to abilify and continued to psychotic symptoms including hallucinations and paranoia which worsened in the evenings, thinking people were trying to inject her with various drugs, she had limited recollection of the events leading to admission, but endorsed using "sylvie" and cannabis despite negative toxicology screen, on this admission similar to previous presentations endorses using "sylvie", toxicology screen is again negative. Per PSA report "Pt reports she is here today because she "felt like people were out to get me and out to hurt me and my children." Pt reports she is "very tired, paranoid, and stressing out due to stuff going on with my kids." Pt reports her children are struggling with their grades but would not elaborate any further on what is going on with her children, or any other stressor. Pt is inconsistent with her responses, first denying stressors, then reporting stressors surrounding her children, reporting her appetite and sleep had no issu es, then later commenting on how tired she is and how she has been awake for several days unable to sleep. Pt also reported to TW that she could CFS, but later stated she could not and that she needs admission. Pt reports she has a hx of bipolar and schizoaffective disorder. She reports she attends [facility] for addiction and mh with a hx of [facility] admissions, as recent as a week ago with a discharge 2 days ago. Pt also came into the ED reporting that she had si/hi, but denied both to TW stating "not really sometimes you just say things and you don't mean them" Pt does report substance abuse, stating she smokes about a pack of cigarettes per day, and also uses Sylvie, and did as recently as today. Pt was visibly preoccupied, looking at things throughout the room when nothing was there, and talking and whispering to someone, when no one except for TW was in the room. Pt reports she won't harm herself or anyone else, but states "I just been up for a couple days and I'm very paranoid and really need to get help for my mh and bad anxiety." Vital signs: See below Consultants involved: See medical H&P by hospitalist Treatment and progress on the unit: Patient was admitted to the [facility] on a legal status and was afforded the following treatment modalities: 1. Individual therapy 2. Group therapy 3. Medication management 4. Milieu therapy 5. Safe environment Hospital course: Patient was admitted to the [facility] on a legal status. Was medically cleared prior to coming up to the [facility]. On interview in the ED patient was not fully oriented only to person place and year, CT head without contrast was ordered per request by ED team and found to be negative. Patient reported again using "Sylvie", with negative toxicology screen. Patient was educated about substance use. Patient was restarted home medications including Haldol 5 mg twice daily, next Haldol Decanoate 100 mg IM injection is due 07/09, Suboxone, ISTOP reviewed, no signs abuse or misuse, This report was requested by: Brandi Estes | Reference #: [id number]. Was also started on paroxetine 30 mg p.o. daily for mood, patient been reporting depressed mood, psychotic symptoms including feelings that people were after her with paranoia, similar to prior admissions. She continues to have psychotic symptoms through the second day of hospitalization and so Haldol was increased to 6 mg twice galilea ly with good effect. Was also started on gabapentin 600 mg 3 times daily for anxiety. Medication side effects including EPS, NMS, sedation, metabolic side effects, orthostasis, and other common rare side effects were discussed with patient. Patient found medications beneficial and tolerated them well. Denies mood anxiety and intrusive thoughts which improved with treatment. Patient symptoms improved with treatment. On day of discharge patient denied depression, anxiety, insomnia, suicidal or homicidal ideations intent or plan, hallucinations, delusions. Patient was discharged home with follow-up. Patient felt safe for discharge. Was offered continued stay on voluntary admission but refused. Discharge assessment: On today's interview patient is alert and oriented, dressed appropriately. Hygiene and grooming is well-kept. Smiles on approach and is pleasant and engaged on interview. Denies depression and anxiety. Denies suicidal homicidal ideation, intent or planning. Denies and is not observed with vince or psychotic symptoms of delusions, hallucinations, bizarre thinking, obsessions, paranoia, ruminations, illogical thoughts, flight of ideas or having poor insight or judgment. Patient has normal mentation, declines further hospitalization of voluntary status and meets criteria for discharge today, patient encouraged to return the hospital if symptoms worsen or change and encouraged to call unit if they feel they need provider's questions to be answered or help with medications or care. Patient was educated about the need for follow-up for addictions, mental health treatment, possibly attending Narcotics Anonymous and possibly taking a sponsor to help with cravings for drug use. Mental status: Patient is a 35-year old female, who is in no acute distress, bleach blond hair, good eye contact, calm behavior on interview. Speech: Is spontaneous, mildly slowed, normal amount Language skills are intact. Thought processes including: Linear, logical. Thought content: Today denies suicidal ideation, intent or plan, denies gilda icidal ideation, intent or plan. Abstract reasoning, and computation: Fair description of associations: Less concrete Description of abnormal or psychotic thoughts: Denies is not observed to be internally preoccupied. Judgment: Fair Insight: Improved, contemplative regarding drug use Orientation: X3 Recent and remote memory: Reports poor Attention span and concentration: Somewhat decreased Language: Belarusian Fund of knowledge: Below average based on interview. Mood: "good" affect: MIldly constricted, euthymic, not disorganized or internally preoccupied Medications on discharge: -see medication reconciliation: CSSRS on discharge: Wish to be : No nonspecific active suicidal thoughts: No lifetime attempts: History of multiple past suicide attempts. interrupted attempts: 0 aborted attempts: 0 preparatory acts or behavior: None Taking into consideration safety state, status, safety plan, protective factors, modifiable, non-modifiable risk factors patient is at chronically elevated risk on discharge for suicide according to [place] suicide evaluation. PLAN/FOLLOWUP ARRANGEMENTS: Follow Up Care Education Label * Mental Health Appt 1 * Mental Health [facility] * Established With This Provider Yes * Therapist SAVANAH * Date Jun 17, 2021 * Time 10:00 * Address of Clinic or Practice [address] [facility] * Follow Up Care Education Label * Medical * Medical Follow Up [facility] * Established With This Provider Yes * Therapist DR. ROCHA * Date Jun 18, 2021 * Time 09:00 * Address of Clinic or Practice [address] [facility] * The amount of time spent in the coordination of care for this patient was approximately 35 minutes. ETOH/Disorder Med Rx ETOH/DRUG DISORDER RX: Offrd @ d/c & pt refused Vital Signs/I&Os Vital Signs Date Time Temp Pulse Resp B/P (MAP) Pulse Ox O2 Delivery O2 Flow Rate FiO2 06/16/21 06:28 97.5 58 18 98/63 (75) 98 Room Air Medications Scheduled Atomoxetine Hydrochloride (Strattera) 60 Mg Capsule, 60 MG PO DAILY, (Reported) Benztropine Mesylate (Benztropine Mesylate) 1 Mg Tablet, 1 MG PO BID, (Reported) Buprenorphine HCl/Naloxone HCl (Suboxone 2 mg-0.5 mg Sl Film) 1 Each Film, 1 STRIP SL QHS, (Reported) Buprenorphine HCl/Naloxone HCl (Buprenorphin-Naloxon 8-2 mg Sl) 1 Each Tab.subl, 1 TAB SL BID for ., (Reported) QHS DOSE TAKEN WITH 2MG-0.5MG FOR TOTAL OF 10MG QHS Buspirone HCl (Buspirone HCl) 10 Mg Tablet, 10 MG PO BID for anxiety, #7 Docusate Sodium (Docusate Sodium) 100 Mg Capsule, 100 MG PO DAILY, (Reported) Fluoxetine Hcl (Fluoxetine HCl) 20 Mg Capsule, 20 MG PO DAILY, (Reported) Fluoxetine Hcl (Fluoxetine HCl) 10 Mg Capsule, 30 MG PO DAILY for depression, #21 Gabapentin (Gabapentin) 300 Mg Capsule, 600 MG PO TID for anxiety, #21 Haloperidol (Haloperidol) 2 Mg Tablet, 6 MG PO BID for psychosis, #14 Haloperidol Decanoate (Haldol Decanoate 100) 100 Mg/1 Ml Ampul, 1 ML IM Q30D for psychosis for 30 Days, #1 Mupirocin (Mupirocin) 2 % Oint...g., 1 DOSE EXT BID for 14 Days, (Reported) STARTED ON 05/13/21, APPLY TO WOUND ON RIGHT ARM Oxybutynin Chloride (Oxybutynin Chloride) 5 Mg Tablet, 5 MG PO BID, (Reported) Topiramate (Topiramate) 100 Mg Tablet, 100 MG PO DAILY, (Reported) Scheduled PRN Trazodone HCl (Trazodone HCl) 50 Mg Tablet, 50 MG PO QHSP PRN for INSOMNIA, #7 Allergies Coded Allergies: No Known Allergies (Verified , 06/02/20) BRANDI ESTES MD Jun 16, 2021 13:40
== END 2021-06-16 11:39 | disposition home or self-care (01) | DRG 750 ==
LOC: M ED 10:06 → M ED INP 17:30 → M PSY 19:15
PROVIDERS: ADMIT Student in an Organized Health Care Education/Training Program; ATTEND Student in an Organized Health Care Education/Training Program
DX: F25.1 Schizoaffective disorder, depressive type (principal); R41.9 Unspecified symptoms and signs involving cognitive functions and awareness; F19.10 Other psychoactive substance abuse, uncomplicated; F12.10 Cannabis abuse, uncomplicated; F17.210 Nicotine dependence, cigarettes, uncomplicated; F15.10 Other stimulant abuse, uncomplicated; Z91.51 Personal history of suicidal behavior; Z81.8 Family history of other mental and behavioral disorders; Z20.822 Contact with and (suspected) exposure to COVID-19; Z79.899 Other long term (current) drug therapy; R45.851 Suicidal ideations

== ENCOUNTER 2021-06-18 02:50 | Emergency (ER) | payer OTHER ==
[~2021-06-18] VITALS: Ht 154.9 cm; Wt 55.0 kg
[~2021-06-18 02:50] MED LIST changes: +FLUO20CA20 PO; +HALD100I2 IM
--- OUTSIDE RECORDS SUMMARY | 2021-06-18 02:59 | CCD ---
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 Name Role Phone Vicki Hanna MD Unavailable [...] Unavailable ABI SANCHEZ MD Unavailable Unavailable ABI SNACHEZ MD Unavailable Unavailable ABI SANCHEZ MD Unavailable Unavailable Green SHEET TAILER SHEET TAILER, Gina Unavailable Unavailable Green SHEET TAILER SHEET TAILER, Gina Unavailable Unavailable Green SHEET TAILER SHEET TAILER, Gina Unavailable Unavailable Green SHEET TAILER SHEET TAILER, Gina Unavailable Unavailable Green SHEET TAILER SHEET TAILER, Gina Unavailable Unavailable Michael Castañeda MD Unavailable [...] Neli Figueroa MD Unavailable Unavailable Audi, Neli iFgueroa MD Unavailable Unavailable ASARANNELISE MD Unavailable Unavailable [...] is protected by Article 27-F of the [facility] Public Health law. If you continue you may have access to information: Regarding HIV / AIDS; Provided by facilities licensed or operated by the [facility] Office of Mental Health; or Provided by the [facility] Office for People With Developmental Disabilities. If such information is present, then the following [facility] mandated warning applies: This information has been [...] adverse reacti ons No Known Drug Allergies [facility] . Drug allergy Drug allergy No Known Allergies Ca [facility] Family History Family Member Name Family Member Gender Family Member Status Date o f Status Description Data Source(s) Unknown Male Diagnosis 01/22/2014 12:00:00 AM EDT [facility] ([facility]) Encounters Encounter Providers Location Date Indications Data Source(s ) Julito Hanna MD: [address] [place] [phone], Ph. Attender: Julito Hanna MD [facility] Medical 05/13/2021 12:00:00 AM EDT [facility] ([facility]) Attender: Carolina Huntley MD [facility] 0 04/14/2021 01:46:00 PM EDT - 04/14/2021 01:46:00 PM EDT [facility] ([facility]) Preadmit Attender: Dorie Huntley MD [facility] 0 02/23/2021 12:25:00 AM EDT - 02/23/2021 12:25:00 AM EDT [facility] Discharge cancelled. Disregard status an d discharged date. Inpatient Attender: Annelise Savage nder: ANNELISE GRAY MDAdmitter: ANNELISE GRAY MD [facility] 01/27/2021 01:41:00 PM EDT - 02/24/2021 10:00:00 AM EDT PSYCHOACTIVE SUBSTANCE DEPENDENCE [facility] PSYCHOACTIVE SUBSTANCE DEPENDENCE Patient discharged. Inpatient Attender: Kena Chowdhury DOAdmitter: Raul Chowdhury DO SURG-MED 01/14/2021 10:13:00 AM EDT - 01/18/2021 12:43:00 PM EDT [facility]. Patient discharged. Inpatient Attender: Kena Chowdhury DOAdmitter: Raul Chowdhury DO SURG-MED 01/14/2021 10:13:00 AM EDT - 01/18/2021 12:43:00 PM EDT [facility]. V Attender: Kena Chowdhury DOAdmitter: Raul Chowdhury DO SURG-MED 01/13/2021 05:23:00 PM EDT [facility] Patient admitted. Outpatient Attender: ABI SANCHEZ MD SURG-LAB 01/13/2021 04:01: 00 PM EDT [facility] Attender: Carolina Jimenez 0 11/03/2020 11:58:00 AM EDT - 11/03/2020 11:58:00 AM EDT [facility] ([facility]) Attender: Carolina Jimenez 0 10/15/2020 02:33:00 PM EDT - 10/15/2020 02:33:00 PM EDT [facility] ([facility]) Attender: Carolina Hernández 03:02:00 PM EDT - 10/13/2020 03:02:00 PM EDT [facility] ([facility]) Attender: Carolina Hernández 11/2020 01:36:00 PM EST - 10/03/2020 01:36:00 PM EST [facility] ([facility]) Attender: Carolina Jimenez 0 09/26/2020 10:53:00 AM EST - 09/26/2020 10:53:00 AM EST [facility] ([facility]) Attender: Gina France NP SHEET TAILER MARELY Hernández 0 09/25/2020 09:16:00 AM EST - 09/25/2020 09:16:00 AM EST Contact with and (suspected) exposure to viral hepatitisUnspecified viral hepatitis C without hepatic coma [facility] ([facility]) Contact with and (suspected) exposure to viral hepatitis Unspecified viral hepatitis C without he patic coma Attender: Gina France NP SHEET TAILER MARELY Hernández 0 09/22/2020 01:14:00 PM EST - 09/22/2020 01:14:00 PM EST Trichomonal vulvovaginitis [facility] ([facility]) Trichomonal vulvovaginitis OutpatientOFFICE VISIT, EST Attender: Gina Román SHEET TAILER SHEET TAILER MARELY Hernández 09/15/2020 02:45:00 PM EST - [...] result negative [facility] ([facility]) Other specified noninflammatory disorder s [...] PM EST [facility] ([facility]) Attender: Latanya Hernández 04/2021 03:58:00 PM EST - 09/09/2020 03:58:00 PM EST [facility] ([facility]) Outpatient Attender: Julito Hanna MD 05/16/2020 04:01:01 PM EDT [facility] Outpatient Attender: Julito Hanna MD 05/16/2020 03:47:00 PM EDT [facility] Attender: Carolina Hernández 04:15:00 PM EDT - 04/30/2020 04:15:00 PM EDT [facility] ([facility]) Emergency Attender: Eder LANDA ttender: Tia Castañeda MDAttender: Tia Castañeda MD [facility] 04/30/2020 01:37:00 PM EDT - 04/30/2020 04:35:00 PM EDT ABDOMINAL PAIN [facility] ABDOMINAL PAIN Patient discharged. Outpatient Attender: Julito PASTRANA 04/23/2020 09:58:01 AM EDT [facility] Inpatient Attender: Annelise Gray MDAtte nder: ANNELISE GRAY MDAdmitter: ANNELISE GRAY MDConsultant: ANNELISE GRAY MDConsultant: Annelise Gray MD [facility] 04/16/2020 10:19:00 AM EDT - 05/14/2020 11:45:00 AM EDT PSYCHOACTIVE SUBSTANCE DEPENDENCE [facility] PSYCHOACTIVE SUBSTANCE DEPENDENCE Patient discharged. Medications Medication Brand Name Start Date Product Form Dose Route Admi nistrative Instructions Pharmacy Instructions Status Indications Reaction Description Data Source(s) 4 mg 06/11/2021 12:00:00 AM EST gum 110 CHEW 1 PIECE FOUR TIMES A DAY NEEDED FOR SMOKING CESSATION CHEW 1 PIECE FOUR TIMES A DAY NEEDED FOR SMOKING CESSATION SOLD: 06/11/2021 [facility] 100 mg 06/05/2021 12:00:00 AM EDT tablet 7 TAKE ONE TABLET BY MOUTH EVERY DAY FOR SEIZURES TAKE ONE TABLET BY MOUTH EVERY DAY FOR SEIZURES SOLD: 06/11/2021 [facility] 2-0.5 mg 05/30/2021 12:00:00 AM EDT film [address] PL[address] ONE FILM UNDER THE TONGUE EVERY MORNING MAXIMUM DAILY DOSE = [address] ONE FILM UNDER THE TONGUE EVERY MORNING MAXIMUM DAILY DOSE = 1 FILM SOLD: 06/11/2021 [facility] 400 mg 05/27/2021 12:00:00 AM EDT suspension,extended rel recon 1 INJECT CONTENTS OF 1 SYRINGE INTRAMUSCULARLY ONCE A MONTH INJECT CONTENTS OF 1 SYRINGE INTRAMUSCULARLY ONCE A MONTH SOLD: 06/11/2021 [facility] 8-2 mg 05/27/2021 12:00:00 AM EDT film 14 PLACE ONE FILM UNDER THE TONGUE TWICE A DAY MAXIMUM DAILY DOSE = [address] ONE FILM UNDER THE TONGUE TWICE A DAY MAXIMUM DAILY DOSE = 2 FILMS SOLD: 06/11/2021 [facility] 5 mg 05/25/2021 12:00:00 AM EDT tablet [...] MOUTH EVERY DAY SOLD: 05/14/2021 [facility] 5 mg 05/13/2021 12:00:00 AM EDT tablet 30 TAKE ONE TABLET BY MOUTH TWICE A DAY FOR URINARY DISCOMFORT TAKE ONE TABLET BY MOUTH TWICE A DAY FOR URINARY DISCOMFORT SOLD: 06/11/2021 [facility] olanzapine 15 MG Oral Tablet OLANZAPINE 05/13/2021 [...] DAILY DOSE = 2 FILMS SOLD: 04/30/2021 [facility] buspirone hydrochloride 15 MG Oral Tablet BUSPIRONE HCL 04/29/2021 12:00:00 AM EDT tablet 45 TAKE ONE TABLET BY MOUTH THR EE TIMES A DAY TAKE ONE TABLET BY MOUTH THREE TIMES A DAY SOLD: 04/30/2021 [facility] 2-0.5 mg 04/29/2021 12:00:00 AM EDT [...] ONE (1) TABLET AT BEDTIME SOLD: 04/16/2021 [facility] buspirone hydrochloride 15 MG Oral Tablet BUSPIRONE HCL 04/15/2021 12:00:00 AM EDT tablet 45 TAKE ONE TABLET BY MOUTH THR EE TIMES A DAY TAKE ONE TABLET BY MOUTH THREE TIMES A DAY SOLD: 04/16/2021 [facility] 600 mg 04/15/2021 12:00:00 AM EDT tablet 45 TAKE 1 TABLET BY MOUTH THREE TIMES A DAY TAKE 1 TABLET BY MOUTH THREE TIMES A DAY SOLD: 04/16/2021 [facility] 8-2 mg 04/15/2021 12:00:00 AM EDT [...] TABLET BY MOUTH AT BEDTIME SOLD: 04/16/2021 [facility] 60 mg 04/15/2021 12:00:00 AM EDT [...] BUCCALLY EVERY 3 HOURS NEEDED SOLD: 03/30/2021 [facility] buspirone hydrochloride 15 MG Oral Tablet BUSPIRONE HCL 03/30/2021 12:00:00 AM EDT tablet 45 TAKE ONE TABLET BY MOUTH THR EE TIMES A DAY TAKE ONE TABLET BY MOUTH THREE TIMES A DAY SOLD: 03/30/2021 [facility] Risperidone 2 MG Oral Tablet RISPERIDONE 03/30/2021 [...] TABLET BY MOUTH AT BEDTIME SOLD: 02/24/2021 [facility] 2 mg 02/24/2021 12:00:00 AM EDT [...] TWICE A DAY SOLD: 02/24/2021 [facility] 500 mg 02/24/2021 12:00:00 AM EDT tablet 14 TAKE ONE TABLET BY MOUTH TWICE A DAY AT `6AM AND `6PM TAKE ONE TABLET BY MOUTH TWICE A DAY AT `6AM AND `6PM SOLD: 02/24/2021 [facility] 8-2 mg 02/24/2021 12:00:00 AM EDT film 14 PLACE ONE FILM UNDER THE TONGUE TWICE A DAY MAXIMUM DAILY DOSE = [address] ONE FILM UNDER THE TONGUE TWICE A DAY MAXIMUM DAILY DOSE = 2 FILMS SOLD: 02/24/2021 [facility] 40 mg 02/24/2021 12:00:00 AM EDT capsule 7 TAKE ONE CAPSULE BY MOUTH EVERY DAY TAKE ONE CAPSULE BY MOUTH EVERY DAY SOLD: 02/24/2021 [facility] 21 mg/24 hr 02/24/2021 12:00:00 AM [...] 12:00:00 AM EDT 100 completed Twice Daily [facility] doxycycline hyclate 100 MG [...] E DT 200 completed Daily as needed [facility] olanzapine 15 MG Oral Tablet Olanzapine 15 MG TABLET Olanzap ine 15 MG TABLET 01/18/2021 12:00:00 AM EDT 15 completed At Bedtime [facility] 600 mg 01/18/2021 12:00:00 AM EDT tablet [...] 12:00:00 AM EDT 50 completed At Bedtime [facility] Buprenorphine 8 MG / Naloxone 2 MG Oral Strip [Suboxone] Buprenorphine HCl/Naloxone HCl (Suboxone 8 MG-2 MG Sl Film) 1 EACH FILM Buprenorphine HCl/Naloxone HCl (Suboxone 8 MG-2 MG Sl Film) 1 EACH FILM 01/18/2021 12:00:00 AM EDT [address] [facility] 2 mg 01/18/2021 12:00:00 AM EDT capsule 5 TAKE ONE CAPSULE BY MOUTH AT BEDTIME TAKE ONE CAPSULE BY MOUTH AT BEDTIME SOLD: 01/19/2021 [facility] 8-2 mg 01/18/2021 12:00:00 AM EDT [...] 12:00:00 AM EDT 3 completed At Bedtime [facility] 50 mg 01/18/2021 12:00:00 AM EDT tablet 5 TAKE ONE TABLET BY MOUTH AT BEDTIME TAKE ONE TABLET BY MOUTH AT BEDTIME SOLD: 01/19/2021 [facility] 100 mg 01/18/2021 12:00:00 AM EDT capsule 10 TAKE TWO CAPSULES BY MOUTH EVERY DAY NEEDED TAKE TWO CAPSULES BY MOUTH EVERY DAY NEEDED SOLD: 01/19/2021 [facility] Multi-Vit/Mineral (Multivitamin Tablet) 1 TAB TAB 01/18/2021 12:00:00 AM EDT 1 completed Daily [facility] olanzapine 15 MG Oral Tablet OLANZAPINE 01/18/2021 12:00:00 AM EDT tab let 5 TAKE ONE TABLET BY MOUTH AT BEDTIME TAKE ONE TABLET BY MOUTH AT BEDTIME SOLD: 01/19/2021 [facility] Prazosin 2 MG Oral Capsule [Minipress] Prazosin HCl (M inipress) 2 MG CAPSULE Prazosin HCl (Minipress) 2 MG CAPSULE 01/18/2021 12:00:00 AM EDT 2 completed At Bedtime [facility] gabapentin 600 MG Oral Tablet Gabapentin 600 MG TABLET Gabap entin 600 MG TABLET 01/18/2021 12:00:00 AM EDT 600 completed Three Times a Day [facility] Mirtazapine 15 MG Oral Tablet Mirtazapine 15 MG TABLET Christine zapine 15 MG TABLET 01/18/2021 12:00:00 AM EDT 15 completed At Bedtime [facility] 400 mcg 01/18/2021 12:00:00 AM EDT tablet 5 TAKE ONE TABLET BY MOUTH EVERY DAY TAKE ONE TABLET BY MOUTH EVERY DAY SOLD: 01/19/2021 [facility] 8-2 mg 01/13/2021 12:00:00 AM EDT [...] 1 (#4) [facility] ([facility]) 1 mg 09/22/2020 12:00:00 [...] DAILY DOSE = 2 FILMS LOT # [id number] PLACE ONE FILM UNDER THE TONGUE TWICE A DAY MAXIMUM DAILY DOSE = 2 FILMS LOT # [id number] SOLD: 07/24/2020 [facility] olanzapine 5 MG [...] TABLET BY MOUTH AT BEDTIME SOLD: 05/14/2020 [facility] 10 mg 05/14/2020 12:00:00 AM [...] A S NEEDED FOR ANXIETY SOLD: 05/14/2020 [facility] 400 mg 05/14/2020 12:00:00 AM [...] [facility] 168 HR Ethinyl Estradiol 0.96510 MG/HR / norelgestromin 0.54106 MG/HR Transdermal Patch [Xulane] XULANE PATCH XULANE PATCH 03/03/2020 12:00:00 AM EDT completed 168 HR ethinyl estradiol 0.32006 MG/HR / norelgestromin 0.87581 MG/HR Transdermal System [Xulane] [facility] ([facility]) 5 mg 02/25/2020 12:00:00 AM EDT [...] completed hydroxyzine hydrochloride 25 MG Oral Tablet [facility]) Mirtazapine 15 MG Oral Tablet Mirtazapine 15 Mg Tablet Tablet, 15 Mg Oral Mirtazapine 15 Mg Tablet Tablet, 15 Mg Oral 15 completed At Bedtime [facility] Risperidone 3 MG Oral Tablet risperidone 3 mg tablet TAKE ONE TABLET BY MOUTH AT BEDTIME risperidone 3 mg tablet TAKE ONE TABLET BY MOUTH AT BEDTIME completed risperidone 3 MG Oral Tablet [facility]) Sertraline 50 MG Oral Tablet [Zoloft] Se rtraline Hcl 50 Mg Tablet Tablet, 50 Mg Oral Sertraline Hcl 50 Mg Tablet Tablet, 50 Mg Oral 50 completed At Bedtime [facility] Cephalexin 500 MG Oral Capsule cephalexi n 500 mg capsule TAKE ONE CAPSULE BY MOUTH THREE TIMES A DAY cephalexin 500 mg capsule TAKE ONE CAPSU LE BY MOUTH THREE TIMES A DAY completed ceph alexin 500 MG Oral Capsule [facility]) Risperidone 3 MG Oral Tablet [Risperdal] Risperidone (Risperdal) 3 Mg Tablet Tablet, 3 Mg Oral Risperidone (Risperdal) 3 Mg Tablet Tablet, 3 Mg Oral 3 completed At Bedtime [facility] buspirone hydrochloride 7.5 MG Oral Tabl et buspirone 7.5 mg tablet TAKE ONE TABLET BY MOUTH THREE TIMES A DAY buspirone 7.5 mg tablet TAKE ONE TABLET BY MOUTH THREE TIMES A DAY completed buspirone hydrochloride 7.5 MG Oral Tablet [facility]) Metronidazole 500 MG Oral Tablet metroni dazole 500 mg tablet 500 MG BY MOUTH AT BEDTIME FOR INFECTION metronidazole 500 mg tablet 500 MG BY MO UTH AT BEDTIME FOR INFECTION completed metronidazo le 500 MG Oral Tablet [facility] ([facility]) Levothyroxine Sodium 0.05 MG Oral Tablet levothyroxine 50 mcg tablet TAKE ONE TABLET BY MOUTH EVERY DAY levothyroxine 50 mcg tablet TAKE ONE TAB LET BY MOUTH EVERY DAY completed levothyroxin e sodium 0.05 MG Oral Tablet [facility] ([facility]) olanzapine 15 MG Oral Tablet Olanzapine 15 Mg Tablet T ablet, 15 Mg Oral Olanzapine 15 Mg Tablet Tablet, 15 Mg Oral 15 completed At Bedtime [facility]. atomoxetine 10 MG Oral Capsule atomoxeti ne 10 mg capsule TAKE TWO CAPSULES BY MOUTH EVERY DAY atomoxetine 10 mg capsule TAKE TWO CAPSULES BY MOUTH E DAY completed atomoxetine 10 MG Oral Capsule [facility] ([facility]) Divalproex Sodium 500 MG Delayed Release Oral Tablet divalproex 500 mg tablet,delayed release TAKE ONE TABLET BY MOUTH TWICE A DAY divalproex 500 mg tablet,delayed release TAKE ONE TABLET BY MOUTH TWICE A DAY completed divalproex sodium 500 MG Delayed Release Oral Tablet [facility] ([facility]) Trazodone Hydrochloride 100 MG Oral Tabl et trazodone 100 mg tablet TAKE ONE TABLET BY MOUTH AT BEDTIME trazodone 100 mg tablet TAKE ONE TABLET BY MOUTH AT BEDTIME completed trazodone hydr ochloride 100 MG Oral Tablet [facility] ([facility]) Docusate Sodium 100 MG Oral Capsule docu sate sodium 100 mg capsule TAKE TWO CAPSULES BY MOUTH EVERY DAY NEEDED docusate sodium 100 mg capsule TAKE TWO CAPSULES BY MOUTH EVERY DAY NEEDED completed docusate sodium 100 MG Oral Capsule [facility]) 24 HR paliperidone 3 MG Extended Release Oral Tablet paliperidone ER 3 mg tablet,extended release 24 hr TAKE ONE TABLET BY MOUTH AT BEDTIME FOR ANTIPSYCHOTIC paliperidone ER 3 mg tablet,extended rel ease 24 hr TAKE ONE TABLET BY MOUTH AT BEDTIME FOR ANTIPSYCHOTIC completed 24 HR paliperidone 3 MG Extended Release Oral Tablet [facility] ([facility]) Haloperidol 2 MG Oral Tablet haloperidol 2 mg tablet TAKE TWO TABLETS BY MOUTH THREE TIMES A DAY 8AM 1PM. AND 9PM haloperidol 2 mg tablet TAKE TWO TABLETS BY MOUTH THREE TIMES A DAY 8AM 1PM. AND 9PM completed haloperidol 2 MG Oral Tablet [facility] ([facility]) benztropine mesylate 1 MG Oral Tablet be nztropine 1 mg tablet TAKE ONE TABLET BY MOUTH TWICE A DAY NEEDED benztropine 1 mg tablet TAKE ONE TABLET BY MOUTH TWICE A DAY NEEDED completed benztropine mesylate 1 MG Oral Tablet [facility] ([facility]) Amitriptyline Hydrochloride 25 MG Oral T ablet amitriptyline 25 mg tablet TAKE ONE TABLET BY MOUTH AT BEDTIME amitriptyline 25 mg tablet TAKE ONE TABL ET BY MOUTH AT BEDTIME completed amitriptyline hydrochloride 25 MG Oral Tablet [facility] ([facility]) Loratadine 10 MG Oral Tablet loratadine 10 mg tablet TAKE ONE TABLET BY MOUTH EVERY DAY loratadine 10 mg tablet TAKE ONE TABLET BY MOUTH EVERY DAY completed loratadine 10 MG Oral Tablet [facility] ([facility]) 24 HR paliperidone 6 MG Extended Release Oral Tablet paliperidone ER 6 mg tablet,extended release 24 hr TAKE ONE TABLET BY MOUTH EVERY MORNING paliperidone ER 6 mg tablet,extended release 24 hr TAKE ONE TABLET BY MOUTH EVERY MORNING completed 24 HR paliperidone 6 MG Extended Release Oral Tablet [facility] ([facility]) Buprenorphine 8 MG / Naloxone 2 MG Oral Strip [Suboxone] Buprenorphine Hcl/Naloxone Hcl (Suboxone 8 Mg-2 Mg Sl Film) 1 Each Film Film, 8 Mg Sublingual Buprenorphine Hcl/Naloxone Hcl (Suboxone 8 Mg-2 Mg Sl Film) 1 Each Film Film, 8 Mg Sublingual 8 completed Twice Da [facility]. atomoxetine 40 MG Oral Capsule atomoxeti ne 40 mg capsule TAKE ONE CAPSULE BY MOUTH EVERY DAY atomoxetine 40 mg capsule TAKE ONE CAPSULE BY MOUTH EVERY DA Y completed atomoxetine 40 MG Oral Capsule [facility] ([facility]) Risperidone 2 MG Oral Tablet risperidone 2 mg tablet TAKE ONE TABLET BY MOUTH AT BEDTIME risperidone 2 mg tablet TAKE ONE TABLET BY MOUTH AT BEDTIME completed risperidone 2 MG Oral Tablet [facility] ([facility]) Mirtazapine 15 MG Oral Tablet mirtazapine 15 mg tablet christine zapine 15 mg tablet completed mirtazapine 15 MG Oral Tablet [facility] ([facility]) 24 HR Oxybutynin chloride 5 MG Extended Release Oral Tablet oxybutynin chloride ER 5 mg tablet,extended release 24 hr TAKE ONE TABLET BY MOUTH EVERY DAY oxybutynin chloride ER 5 mg tablet,extended release 24 hr TAKE ONE TABLET BY MOUTH EVERY DAY completed 24 HR oxybutynin chloride 5 MG Extended Release Oral Tablet [facility] ([facility]) doxycycline hyclate 100 MG Oral Tablet d oxycycline hyclate 100 mg tablet TAKE ONE TABLET BY MOUTH TWICE A DAY doxycycline hyclate 100 mg tablet TAKE O NE TABLET BY MOUTH TWICE A DAY completed doxycycline hyclate 100 MG Oral Tablet [facility] ([facility]) gabapentin 300 MG Oral Capsule gabapenti n 300 mg capsule TAKE ONE CAPSULE BY MOUTH TWICE A DAY gabapentin 300 mg capsule TAKE ONE CAPSU LE BY MOUTH TWICE A DAY completed gabapentin 300 M G Oral Capsule [facility] ([facility]) olanzapine 10 MG Oral Tablet olanzapine 10 mg tablet TAKE ONE HALF 0.5 TABLET BY MOUTH EVERY IN THE MORNING AND ONE 1 TABLET AT BEDTIME olanzapine 10 mg tablet TAKE ONE HALF 0.5 TABLET BY MOUTH EVERY IN THE MORNING AND ONE 1 TABLET AT BEDTIME completed emy zapine 10 MG Oral Tablet [facility] ([facility]) Fluoxetine 10 MG Oral Capsule fluoxetine 10 mg capsule TAKE ONE CAPSULE BY MOUTH EVERY MORNING fluoxetine 10 mg capsule TAKE ONE CAPSULE BY MOUTH DILIA RY MORNING completed fluoxetine 10 MG Oral Capsule [facility] ([facility]) olanzapine 5 MG Oral Tablet olanzapine 5 mg tablet TAKE ONE TABLET BY MOUTH EVERY MORNING AT 8AM olanzapine 5 mg tablet TAKE ONE TABLET B Y MOUTH EVERY MORNING AT 8AM completed olanza pine 5 MG Oral Tablet [facility] ([facility]) Prazosin 1 MG Oral Capsule prazosin 1 mg capsule TAKE ONE CAPSULE BY MOUTH AT BEDTIME prazosin 1 mg capsule TAKE ONE CAPSULE BY MOUTH AT BEDTIME completed prazosin 1 MG Oral Capsule [facility] ([facility]) gabapentin 400 MG Oral Capsule gabapenti n 400 mg capsule TAKE ONE CAPSULE BY MOUTH FOUR TIMES A DAY gabapentin 400 mg capsule TAKE ONE CAPSU LE BY MOUTH FOUR TIMES A DAY completed gabapentin 400 MG Oral Capsule [facility] ([facility]) Sertraline 25 MG Oral Tablet sertraline 25 mg tablet TAKE ONE TABLET BY MOUTH EVERY MORNING sertraline 25 mg tablet TAKE ONE TABLET BY MOUTH EVERY MORNI NG completed sertraline 25 MG Oral Tablet [facility] ([facility]) olanzapine 5 MG Disintegrating Oral Tabl et olanzapine 5 mg disintegrating tablet DISSOLVE ONE TABLET UNDER THE TONGUE EVERY DAY NEEDED FOR ANXIETY AGITATIONS olanzapine 5 mg disintegrating tablet DI SSOLVE ONE TABLET UNDER THE TONGUE EVERY DAY NEEDED FOR ANXIETY AGITATIONS completed olanzapine 5 MG Disintegrating Oral Tablet [facility] ([facility]) Naproxen 500 MG Oral Tablet naproxen 500 mg tablet TAKE ONE TABLET BY MOUTH TWICE A DAY AT 6AM AND 6PM naproxen 500 mg tablet TAKE ONE TABLET B Y MOUTH TWICE A DAY AT 6AM AND 6PM completed naproxen 500 MG Oral Tablet [facility] ([facility]) Docusate Sodium 100 MG Oral Capsule [Col gopi] Docusate Sodium (Colace) 100 Mg Capsule Capsule, 100 Mg Oral Docusate Sodium (Colace) 100 Mg Capsule Capsule, 100 Mg Oral 100 completed Three Time s a Day as needed [facility]. Divalproex Sodium 250 MG Delayed Release Oral Tablet divalproex 250 mg tablet,delayed release TAKE ONE TABLET BY MOUTH TWICE A DAY divalproex 250 mg tablet,delayed release TAKE ONE TABLET BY MOUTH TWICE A DAY completed divalproex sodium 250 MG Delayed Release Oral Tablet [facility] ([facility]) topiramate 25 MG Oral Tablet topiramate 25 mg tablet TAKE TWO TABLETS BY MOUTH TWICE A DAY FOR HEADACHE topiramate 25 mg tablet TAKE TWO TABLETS BY MOUTH TWICE A DAY FOR HEADACHE completed to piramate 25 MG Oral Tablet [facility] ([facility]) Prazosin 2 MG Oral Capsule prazosin 2 mg capsule TAKE ONE CAPSULE BY MOUTH AT BEDTIME prazosin 2 mg capsule TAKE ONE CAPSULE BY MOUTH AT BEDTIME completed prazosin 2 MG Oral Capsule [facility] ([facility]) topiramate 50 MG Oral Tablet [Topamax] Topamax 50 mg t ablet Topamax 50 mg tablet completed topiramate 50 MG Oral Tablet [Topamax] [facility] ([facility]) Sertraline 100 MG Oral Tablet sertraline 100 mg tablet TAKE ONE TABLET BY MOUTH EVERY DAY sertraline 100 mg tablet TAKE ONE TABLET BY MOUTH EVERY DAY completed sertraline 100 MG Oral Table t [facility] ([facility]) gabapentin 600 MG Oral Tablet Gabapentin 600 Mg Tablet Tablet, 600 Mg Oral Gabapentin 600 Mg Tablet Tablet, 600 Mg Oral 600 completed Three Times a Day [facility] aripiprazole 2 MG Oral Tablet aripiprazo le 2 mg tablet TAKE ONE TABLET BY MOUTH EVERY MORNING aripiprazole 2 mg tablet TAKE ONE TABLET BY MOUTH EVERY MORN ING completed aripiprazole 2 MG Oral Tablet [facility] ([facility]) 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 MG Oral Capsule gabapenti n 100 mg capsule TAKE ONE CAPSULE BY MOUTH TWICE A DAY 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 mg capsule TAKE ONE CAPSU LE BY MOUTH TWICE A DAY completed 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 M G Oral Capsule [facility] ([facility]) Hydroxyzine Hydrochloride 50 MG Oral Tab let hydroxyzine HCl 50 mg tablet TAKE ONE TABLET BY MOUTH THREE TIMES A DAY NEEDED hydroxyzine HCl 50 mg tablet TAKE ONE TABLET BY MOUTH THREE TIMES A DAY NEEDED completed hydroxyzine hydrochloride 50 MG Oral Tablet QUINCY ([facility]) Haloperidol 10 MG Oral Tablet haloperido l 10 mg tablet TAKE TWO TABLETS BY MOUTH TWICE A DAY NEEDED haloperidol 10 mg tablet TAKE TWO TABLET S BY MOUTH TWICE A DAY NEEDED completed halope ridol 10 MG Oral Tablet QU[facility] ([facility]) 24 HR Oxybutynin chloride 10 MG Extended Release Oral Tablet oxybutynin chloride ER 10 mg tablet,extended release 24 hr TAKE ONE TABLET BY MOUTH EVERY DAY oxybutynin chloride ER 10 mg tablet,extended release 24 hr TAKE ONE TABLET BY MOUTH EVERY DAY completed 24 HR oxybutynin chloride 10 MG Extended Release Oral Tablet [facility] ([facility]) Prazosin 2 MG Oral Capsule [Minipress] P razosin Hcl (Minipress) 2 Mg Capsule Capsule, 2 Mg Oral Prazosin Hcl (Minipress) 2 Mg Capsule Capsule, 2 Mg Oral 2 completed At Bedtime [facility]. Sulfamethoxazole 800 MG / Trimethoprim 1 60 MG Oral Tablet sulfamethoxazole 800 mg-trimethoprim 160 mg tablet TAKE ONE TABLET BY MOUTH TWICE A DAY sulfamethoxazole 800 mg-trimethoprim 160 mg tablet TAKE ONE TABLET BY MOUTH TWICE A DAY completed negron lfamethoxazole 800 MG / trimethoprim 160 MG Oral Tablet QUINCY ([facility]) topiramate 50 MG Oral Tablet topiramate 50 mg tablet TAKE ONE TABLET BY MOUTH TWICE A DAY topiramate 50 mg tablet TAKE ONE TABLET BY MOUTH TWICE A DAY completed topiramate 50 MG Ora l Tablet SUSI ([facility]) Sertraline 50 MG Oral Tablet sertraline 50 mg tablet TAKE ONE TABLET BY MOUTH AT BEDTIME sertraline 50 mg tablet TAKE ONE TABLET BY MOUTH AT BEDTIME completed sertraline 50 MG Oral Tablet SUSI ([facility]) Insurance Providers Payer name Policy type / Coverage type Policy ID Covered libertarian ID Covered libertarian's relationship to bergeron Policy Bergeron Plan Information MEDICAID [id number] SELF [id number] [facility] [id number] Self [id number] Medicaid S [id number] S [id number] Managed Care - Community Plan [facility] P [id number] S [id number] Medicaid P [id number] S [id number] Medicaid P [id number] S [id number] Managed Care - [facility] Community Plan P [id number] S [id number] Managed Care - [facility] Community Plan P [id number] S [id number] [facility] [id number] Unemploye d [id number] MEDICAID [id number] SP [id number] [facility] DEPT [id number] SP [id number]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 holding Gabapentin andmonitoring for 6 hours on admission. Gabapentin was resumed prior todischarge.3. Anxiety/depression/schizoaffective disorder/bipolar disorder. Resumehome medications.4. Tobacco abuse. Patient counseled on admission. Nicotine patch5. Open sore in antecubital region. Treated with Keflex and mckeon sitionedto Doxycycline at discharge for 10 daysCode Status: Full codeGI prophylaxis: ProtonixVTE prophylaxis: Early ambulationDispo: Inpatient bed available at [facility] on 01/22. Stable for discharge andwill stay with her stepdad.Time spent60 MinutesDictated on 01/18/21 1326 by Kena Chowdhury DOTranscribed on 01/18/21 1326 by Kena Chowdhury DOSign by Kena Chowdhury DO on 01/18/21 1404Sign by: Kena Chowdhury DO Name Value Range Interpretation Code Description Data Kassy rce(s) Supporting Document(s) ID Date Data Source [id number] 01/17/2021 02:41:00 PM EDT [facility]. Counselor Progress NotePatient NoteCOUNS LIZA SPOKE WITH [...] 01/22/21 WHEN HER BED IS OPEN AT [facility] REHAB. ALSO COUNSELOR SET UPTANSPORTATION FOR PATIENT SHE COULD NOT GET A RIDE HOME. SO HER RIDEWILL BE HERE TOMORROW AT 1:00 PM AFTER SHE IS DISCHARGED.Dictated on 01/17/21 1441 by Cherire,TriciaTranscribed on 01/17/21 1441 by Cherrie,TriciaSign by Cherrie,Nuzhat on 01/17/21 1446Sign by: Cherrie,Nuzhat Name Value Range Interpretation Code Description Data Kassy rce(s) Supporting Document(s) ID Date Data Source [id number] 01/17/2021 11:27:00 AM EDT [facility] Counselor Progress NotePatient NoteDR. Katherine ELVIS IN TO TALK TO COUNSELOR ABOUT PATIENT AND HER BEING DISCHARGEDAND HER AFTER PLANS. COUNSELOR CALLED [facility] AND TALKED TOA AGRISCIENCE TEACHER ABOUT PATIENT GOING THERE ONLY TO FIND OUT THAT IT'S A DETOXCENTER WELL. COUNSELOR HAD GONE TO TALK TO THE DR ABOUT [facility] TO LET HIM KNOW WHAT SHE HAD FOUND OUT. TOLD COUNSELOR THAT EVIE TALKED TO PATIENT ABOUT HER STAYING WITH HER STEPDAD UNTIL HER BEDWAS READY AT [facility] ON 01/22/21. SO COUNSELOR WENT TO [...] rce(s) Supporting Document(s) ID Date Data Source [id number] 01/17/2021 10:19:00 AM EDT [facility]. Counselor Progress NotePatient NoteCOTASHA DE JESUS WENT TO CHECK ON PATIENT [...] 1019 by Cherrie,TriciaTranscribed on 01/17/21 1019 by Rob Grier by Nuzhat Grier on 01/17/21 1023Sign by: Nuzhat Grier Name Value Range Interpretation Code Description Data Kassy rce(s) Supporting Document(s) ID Date Data Source [id number] 01/17/2021 06:53:00 AM EDT [facility]. Provider Short NotePatient NoteCalled by RN that [...] rce(s) Supporting Document(s) ID Date Data Source [id number] 01/16/2021 03:24:00 PM EDT [facility] Counselor Progress NotePatient NoteCHUYITA DE JESUS WENT BY TO SEE PATIENT TO SEE HOW SHE WAS DOING AND SHE WASSLEEPING. COUNSELOR TRIED TO WAKE HER UP BUT SHE WOULDN'T. SO COUNSELORLEFT BACK TO HER OFFICE.Dictated on 01/16/21 1524 by CherrieTriciaTranscribed on 01/16/21 1524 by Cherrie,TriciaSign by Nuzhat Grier on 01/16/21 1526Sign by: Cherrie,Nuzhat Name Value Range Interpretation Code Description Data Kassy rce(s) Supporting Document(s) ID Date Data Source [id number] 01/16/2021 02:08:00 PM EDT [facility] Counselor Progress NotePatient NoteCOUNS LIZA WENT [...] 140 by Cherrie,TriciaTranscribed on 01/16/21 1408 by Kyra GrieriaSign by Nuzhat Grier on 01/16/21 1413Sign by: Cherrie,Nuzhat Name Value Range Interpretation Code Description Data Kassy rce(s) Supporting Document(s) ID Date Data Source [id number] 01/16/2021 02:04:00 PM EDT [facility] Counselor Progress NotePatient NoteCOUNS LIZA WENT [...] CherrieTriciaSign by CherrieNuzhat on 01/16/21 1408Sign by: Cherrie,Nuzhat Name Value Range Interpretation Code Description Data Kassy rce(s) Supporting Document(s) ID Date Data Source [id number] 01/15/2021 04:16:00 PM EDT [facility] Counselor Progress NotePatient NoteCOUNS LIZA BLAS, [...] rce(s) Supporting Document(s) ID Date Data Source [id number] 01/15/2021 01:59:00 PM EDT [facility] Counselor Progress NotePatient NoteBETHANIE HUGO [facility], CONF[facility] A 4 WEEK WAIT LIST FOR [facility]PATIENT [facility]ACILITY FOR WOMEN.Dictated on 01/15/21 1359 by Sydnie BlasTranscribed on 01/15/21 1359 by Zach Blas by Sydnie Blas on 01/15/21 1400Sign by: Sydnie Blas Name Value Range Interpretation Code Description Data Kassy rce(s) Supporting Document(s) ID Date Data Source [id number] 01/15/2021 01:36:00 PM EDT [facility] Counselor Progress NotePatient NoteCONFI RMED BED AT [facility] 01/22/21 - ADMISSION TIME PENDING.Dictated on 01/15/21 1336 by Sydnie BlasTranscribed on 01/15/21 1336 by Zach Blas by Sydnie Blas on 01/15/21 1337Sign by: Sydnie Blas Name Value Range Interpretation Code Description Data Kassy rce(s) Supporting Document(s) ID Date Data Source [id number] 01/14/2021 03:22:00 PM EDT [facility] Counselor Progress NotePatient NoteCHUYITA DE JESUS HAD WENT TO SEE IF PATIENT WAS UP BUT SHE WAS VERY DEEP INSLEEP, COUNSELOR WENT TO NURSE AND ASKED IF SHE HAD BEEN GIVENMEDICATION. NURSE HAD TOLD COUNSELOR YES AND ALSO FOR HER ANXIETY ASWELL. SO SHE WAS SLEEPING STILL AND VERY HEAVY. SO COUNSELOR WAS NOT ABLETO DO HER EVALUATION FOR MEGANADY.Dictated on 01/14/21 1522 by Cherrie,TriciaTranscribed on 01/14/21 1522 by Cherrie,TriciaSign by Cherrie,Nuzhat on 01/14/21 1525Sign by: Cherrie,Nuzhat Name Value Range Interpretation Code Description Data Kassy rce(s) Supporting Document(s) ID Date Data Source [id number] 01/14/2021 03:00:00 PM EDT [employer] Counselor Progress NotePatient Dominic DE JESUS WENT TO SEE IF PATIENT WAS UP TO DO EVALUATION AND SHE WASSLEEPING.Dictated on 01/14/21 1500 by Cherrie,TriciaTranscribed on 01/14/21 1500 by Cherrie,TriciaSign by Cherrie,Nuzhat on 01/14/21 1501Sign by: Cherrie,Nuzhat Name Value Range Interpretation Code Description Data Kassy rce(s) Supporting Document(s) ID Date Data Source [id number] 01/14/2021 01:44:00 PM EDT [employer] Counselor Progress NotePatient Dominic DE JESUS WENT INTO PATIENTS ROOM AT 12:30 TO DO THE EVALUATION, THEPATIENT WAS SLEEPING SO COUNSELOR HAD LEFT THE PATIENT TO SLEEP.COUNSELOR CAME BACK TO HER OFFICE AND REPORTED PATIENT STATUS TO ALFREDA.NURSING AGRISCIENCE TEACHER, SABINE PECK, WOKE THE PATIENT AND REQUESTED [...] rce(s) Supporting Document(s) ID Date Data Source [id number] 01/14/2021 09:26:00 AM EDT [facility]. Counselor Progress NotePatient NoteCOUNS LIZA ALONG WITH HEALTH INFORMATION MANAGER WENT INTO PATIENTS ROOM AND ASKED HOW SHE WASDOING. PATIENT RESPONDED SHE WAS DOING OK. COUNSELOR INFORMED PATIENTTHAT SHE WAS HERE IF SHE NEEDED HER TO TALK OR ANYTHING.Dictated on 01/14/21 0926 by Cherrie,TriciaTranscribed on 01/14/21 0926 by Cherrie,TriciaSign by Cherrie,Nuzhat on 01/14/21 0933Sign by: Cherrie,Nuzhat Name Value Range Interpretation Code Description Data Kasys rce(s) Supporting Document(s) ID Date Data Source [id number] 01/13/2021 04:10:00 PM EDT [facility] Name Value Range Interpretation Code Description Data Kassy rce(s) Supporting Document(s) SARS-CoV-2 (COVID-19) RNA [Presence] in Respiratory specimen by IRIS with probe detection Negative; No COVID-2 RNA detected by PCR. [facility] This lab was ordered by [facility] and reported by . ID Date Data Source [id number] 12/08/2020 03:19:00 PM EDT [facility]) Name Value Range Interpretation Code Description Data Kassy rce(s) Supporting Document(s) influenza A amplification negative negative Influenza a Amplification [facility]) influenza B amplification negative negative Influenza B Amplification [facility]) RSV amplification negative negative RSV Amplification [facility]) sars covid-19 amplification negative negative Sars Cov id-19 Amplification [facility] ([facility]) ID Date Data Source [id number] 12/08/2020 03:19:00 PM EDT [facility] Name Value Range Interpretation Code Description Data Kassy rce(s) Supporting Document(s) SARS coronavirus 2 RNA [Presence] in Res piratory specimen by IRIS with probe detection NEGATIVE [facility] This lab was ordered by [facility] a nd reported by [facility]. ID Date Data Source [id number] 12/08/2020 09:19:00 AM EDT [facility] ([facility]) Name Value Range Interpretation Code Description Data Kassy rce(s) Supporting Document(s) thyroid stimulating hormone 1.050 uIU/mL 0.358-3.740 Thyroid Stimulating Hormone [facility]) ID Date Data Source [id number] 12/08/2020 09:19:00 AM EDT [facility] ([facility]) Name Value Range Interpretation Code Description Data Kassy rce(s) Supporting Document(s) acetaminophen level < 2.0 10.0-30.0 Below low normal Acetaminop hen Level [facility]) ID Date Data Source [id number] 12/08/2020 09:19:00 AM EDT [facility]) Name Value Range Interpretation Code Description Data Kassy rce(s) Supporting Document(s) salicylate level 2.7 mg/dL 5.0-30.0 Below low normal Salicylate Le jose [facility]) ID Date Data Source [id number] 12/08/2020 09:19:00 AM EDT [facility]) Name Value Range Interpretation Code Description Data Kassy rce(s) Supporting Document(s) ethyl alcohol (ethanol) < 0.003 0.000-0.010 Ethyl Alcoh ol (Ethanol) [facility]) ID Date Data Source [id number] 12/08/2020 09:19:00 AM EDT [facility] ([facility]) Name Value Range Interpretation Code Description Data Kassy rce(s) Supporting Document(s) glucose, fasting 93 mg/dL 70-100 Glucose, Fasting AT [facility] ([facility]) blood urea nitrogen 10 mg/dL 7-18 Blood Urea Nitro gen [facility] ([facility]) creatinine for GFR 0.61 mg/dL 0.55-1.30 Creatinine for GF R [facility] ([facility]) glomerular filtration rate > 60.0 >60 Glomerula r Filtration Rate [facility] ([facility]) sodium level 140 mEq/L 136-145 Sodium Level [facility] ([facility]) chloride level 111 mEq/L 98-107 Above high normal Chloride Level [facility] ([facility]) potassium serum 4.1 mEq/L 3.5-5.1 Potassium Serum [facility] ([facility]) anion gap 7 mEq/L 8-16 Below low normal Anion Gap [facility] ( [facility]) calcium level 9.9 mg/dL 8.5-10.1 Calcium Level [facility] ( [facility]) carbon dioxide level 22 mEq/L 21-32 Carbon Dioxide Level [facility] ([facility]) ID Date Data Source [id number] 12/08/2020 09:19:00 AM EDT [facility]) Name Value Range Interpretation Code Description Data Kassy rce(s) Supporting Document(s) AST/SGOT 28 U/L 7-37 AST/SGOT [facility] ([facility]) alkaline phosphatase 90 U/L 45-117 Alkaline Phosph atase [facility] ([facility]) ALT/SGPT 26 U/L 12-78 ALT/SGPT [facility] ([facility]) bilirubin,total 0.3 mg/dL 0.2-1.0 Bilirubin,total [facility] ([facility]) bilirubin,direct < 0.1 0.0-0.2 Bilirubin,direct AT [facility] ([facility]) albumin 3.9 gm/dL 3.2-5.2 Albumin [facility] ([facility]) total protein 8.4 gm/dL 6.4-8.2 Above high normal Total Protein A [facility] ([facility]) albumin/globulin ratio 1.2-2.2 Below low normal Albumin /globulin Ratio [facility] ([facility]) ID Date Data Source [id number] 12/08/2020 09:19:00 AM EDT [facility] ([facility]) Name Value Range Interpretation Code Description Data Kassy rce(s) Supporting Document(s) white blood count 9.1 10 4.0-10.0 White Blood Count [facility] ([facility]) red blood count 4.31 10 4.00-5.40 Red Blood Count [facility] ([facility]) hemoglobin 12.8 g/dL 12.0-15.5 Hemoglobin [facility] ([facility]) hematocrit 39.2 % 36.0-47.0 Hematocrit [facility] ([facility]) mean corpuscular volume 91.0 fL 80.0-96.0 Mean Corpusc ular Volume [facility] ([facility]) mean corpuscular hemoglobin 29.7 pg 27.0-33.0 Mean Cor puscular Hemoglobin [facility] ([facility]) mean corpuscular HGB conc 32.7 g/dL 32.0-36.5 Mean Corpu scular HGB Conc [facility] ([facility]) platelet count, automated 276 10 150-450 Platelet C ount, Automated [facility] ([facility]) red cell distribution width 13.7 % 11.5-14.5 Red Cell Distribution Width [facility] ([facility]) nucleated red blood cell % 0.0 % 0-0 Nucleated Red Blood Cell % [facility] ([facility]) ID Date Data Source [id number] 12/08/2020 08:11:00 AM EDT [facility] Name Value Range Interpretation Code Description Data Kassy rce(s) Supporting Document(s) amphetamines level urine positive negative Above high andrea l Amphetamines Level Urine [facility] ([facility]) barbiturates urine negative negative Barbiturates Urin e [facility] ([facility]) benzodiazepines urine negative negative Benzodiazepine s Urine [facility] ([facility]) cannabinoids urine positive negative Above high normal Cannabinoi ds Urine [facility] ([facility]) cocaine metabolite urine negative negative Cocaine Met abolite Urine [facility] ([facility]) opiates urine negative negative Opiates Urine [facility] ( [facility]) methadone urine negative negative Methadone Urine [facility] ([facility]) phencyclidine urine negative negative Phencyclidine Ur ine [facility] ([facility]) ID Date Data Source [id number] 12/07/2020 09:14:00 AM EDT [facility] ([facility]) Name Value Range Interpretation Code Description Data Kassy rce(s) Supporting Document(s) istat troponin 0.01 NG/mL 0.00-0.08 Istat Troponin [facility] ([facility]) ID Date Data Source [id number] 12/07/2020 09:12:00 AM EDT [facility] ([facility]) Name Value Range Interpretation Code Description Data Kassy rce(s) Supporting Document(s) istat HCT 38.0 % 38.0-51.0 Istat HCT [facility] ([facility]) istat sodium 138 mEq/L 136-145 Istat Sodium [facility] (No [facility]) istat glucose 111 mg/dL 70-105 Above high normal Istat Glucose A [facility] ([facility]) istat Ca++ 4.7 mg/dL 4.5-5.3 Istat Ca++ [facility] ([facility]) istat potassium 3.9 mEq/L 3.5-5.1 Istat Potassium [facility] ([facility]) istat CO2 23.0 mm/L 23.0-27.0 Istat CO2 [facility] ([facility]) istat chloride 105 mEq/L 98-109 Istat Chloride [facility] ([facility]) istat BUN 9 mg/dL 8-26 Istat BUN [facility] ([facility]) istat creatinine 0.6 mg/dL 0.6-1.3 Istat Creatinine AT [facility] ([facility]) ID Date Data Source [id number] 12/01/2020 03:02:00 AM EDT [facility] Name Value Range Interpretation Code Description Data Kassy rce(s) Supporting Document(s) SARS coronavirus 2 RNA [Presence] in Res piratory specimen by [facility] with probe detection [facility] ordered by [facility] a nd reported by [facility]. ID Date Data Source [id number] 09/15/2020 03:35:50 PM EST [facility] ([facility]) Name Value Range Interpretation Code Description Data Kassy rce(s) Supporting Document(s) Color: yellow; Glucose: nega tive; Blood: small; pH: 6.0; Protein: small; Nitrite: positive; Leukocytes: moderate Abnormal (appl ies to non-numeric results) [facility]) ID Date Data Source [id number] 09/15/2020 03:35:12 PM EST [facility] ([facility]) Name Value Range Interpretation Code Description Data Kassy rce(s) Supporting Document(s) NegativeLot: [id number]: 03/31/2022 High Sensitivity Urine Test [facility] ID Date Data Source [id number] 06/02/2020 02:08:00 PM EST [facility] ([facility]) Name Value Range Interpretation Code Description Data Kassy rce(s) Supporting Document(s) alkaline phosphatase 75 U/L 45-117 Alkaline Phosph atase [facility] ([facility]) ALT/SGPT 74 U/L 12-78 ALT/SGPT [facility] ([facility]) AST/SGOT 58 U/L 7-37 Above high normal AST/SGOT [facility] ([facility]) total protein 7.7 gm/dL 6.4-8.2 Total Protein [facility] ( [facility]) bilirubin,total 0.4 mg/dL 0.2-1.0 Bilirubin,total [facility] ([facility]) bilirubin,direct 0.1 mg/dL 0.0-0.2 Bilirubin,direct AT [facility] ([facility]) albumin/globulin ratio 1.2-2.2 Below low normal Albumin /globulin Ratio SUSI ([facility]) albumin 3.7 gm/dL 3.2-5.2 Albumin [facility]I ([facility]) ID Date Data Source [id number] 06/02/2020 02:08:00 PM EST S[facility]I ([facility]) Name Value Range Interpretation Code Description Data Kassy rce(s) Supporting Document(s) amphetamines level urine positive negative Above high andrea l Amphetamines Level Urine SUSI ([facility]) benzodiazepines urine negative negative Benzodiazepine s Urine [facility]I ([facility]) barbiturates urine negative negative Barbiturates Urin e SUSI ([facility]) cannabinoids urine positive negative Above high normal Cannabinoi ds Urine SUSI ([facility]) cocaine metabolite urine negative negative Cocaine Met abolite Urine SUSI ([facility]) methadone urine positive negative Above high normal Methadone Uri ne SUSI ([facility]) phencyclidine urine negative negative Phencyclidine Ur ine SUSI ([facility]) opiates urine positive negative Above high normal Opiates Urine A THENA ([facility]) ID Date Data Source [id number] 06/02/2020 02:08:00 PM EST S[facility]I ([facility]) Name Value Range Interpretation Code Description Data Kassy rce(s) Supporting Document(s) white blood count 5.8 10 4.0-10.0 White Blood Count SUSI ([facility]) red blood count 3.95 10 4.00-5.40 Below low normal Red Blood Coun t SUSI ([facility]) hemoglobin 12.2 g/dL 12.0-15.5 Hemoglobin SUSI ([facility]) mean corpuscular volume 94.2 fL 80.0-96.0 Mean Corpusc ular Volume SUSI ([facility]) hematocrit 37.2 % 36.0-47.0 Hematocrit S[facility]I ([facility]) mean corpuscular hemoglobin 30.9 pg 27.0-33.0 Mean Cor puscular Hemoglobin SUSI ([facility]) mean corpuscular HGB conc 32.8 g/dL 32.0-36.5 Mean Corpu scular HGB Conc S[facility]I ([facility]) red cell distribution width 12.8 % 11.5-14.5 Red Cell Distribution Width SUSI ([facility]) nucleated red blood cell % 0.0 % 0-0 Nucleated Red Blood Cell % QUINCY ([facility]) platelet count, automated 195 10 150-450 Platelet C ount, Automated SUSI ([facility]) ID Date Data Source [id number] 06/02/2020 02:08:00 PM EST QU[facility] ([facility]) Name Value Range Interpretation Code Description Data Kassy rce(s) Supporting Document(s) HCG, serum qualitative negative negative HCG, Serum Qu alitative SUSI ([facility]) ID Date Data Source [id number] 06/02/2020 02:08:00 PM EST [facility] ([facility]) Name Value Range Interpretation Code Description Data Kassy rce(s) Supporting Document(s) thyroid stimulating hormone 1.690 uIU/mL 0.358-3.740 Thyroid Stimulating Hormone [facility] ([facility]) ID Date Data Source [id number] 06/02/2020 02:08:00 PM EST [facility] ([facility]) Name Value Range Interpretation Code Description Data Kassy rce(s) Supporting Document(s) acetaminophen level < 2.0 10.0-30.0 Below low normal Acetaminop hen Level [facility]) ID Date Data Source [id number] 06/02/2020 02:08:00 PM EST [facility] ([facility]) Name Value Range Interpretation Code Description Data Kassy rce(s) Supporting Document(s) salicylate level < 1.7 5.0-30.0 Below low normal Salicylate Le jose [facility] ([facility]) ID Date Data Source [id number] 06/02/2020 02:08:00 PM EST S[facility]I ([facility]) Name Value Range Interpretation Code Description Data Kassy rce(s) Supporting Document(s) ethyl alcohol (ethanol) < 0.003 0.000-0.010 Ethyl Alcoh ol (Ethanol) [facility] ([facility]) ID Date Data Source [id number] 06/02/2020 02:08:00 PM EST S[facility]I ([facility]) Name Value Range Interpretation Code Description Data Kassy rce(s) Supporting Document(s) creatinine for GFR 0.71 mg/dL 0.55-1.30 Creatinine for GF R QU[facility] ([facility]) blood urea nitrogen 7 mg/dL 7-18 Blood Urea Nitro gen [facility] ([facility]) glucose, fasting 82 mg/dL 70-100 Glucose, Fasting AT [facility]) glomerular filtration rate > 60.0 >60 Glomerula r Filtration Rate QU[facility] ([facility]) sodium level 139 mEq/L 136-145 Sodium Level SUSI ([facility]) potassium serum 3.6 mEq/L 3.5-5.1 Potassium Serum ATHE NA ([facility]) anion gap 6 mEq/L 8-16 Below low normal Anion Gap [facility] ( [facility]) carbon dioxide level 24 mEq/L 21-32 Carbon Dioxide Level S[facility]I ([facility]) chloride level 109 mEq/L 98-107 Above high normal Chloride Level [facility] ([facility]) calcium level 8.8 mg/dL 8.5-10.1 Calcium Level [facility]) ID Date Data Source [id number] 06/01/2020 01:01:00 PM EST [facility] ([facility]) Name Value Range Interpretation Code Description Data Kassy rce(s) Supporting Document(s) amphetamines level urine positive negative Above high andrea l Amphetamines Level Urine [facility]I ([facility]) cocaine metabolite urine positive negative Above high andrea l Cocaine Metabolite Urine [facility]I ([facility]) cannabinoids urine positive negative Above high normal Cannabinoi ds Urine [facility]I ([facility]) benzodiazepines urine negative negative Benzodiazepine s Urine [facility] ([facility]) barbiturates urine negative negative Barbiturates Urin e [facility] ([facility]) phencyclidine urine negative negative Phencyclidine Ur ine [facility]I ([facility]) methadone urine positive negative Above high normal Methadone Uri ne [facility]I ([facility]) opiates urine positive negative Above high normal Opiates Urine A THENA ([facility]) ID Date Data Source [id number] 06/01/2020 01:01:00 PM EST [facility]I ([facility]) Name Value Range Interpretation Code Description Data Kassy rce(s) Supporting Document(s) HCG, serum qualitative negative negative HCG, Serum Qu alitative [facility]I ([facility]) ID Date Data Source [id number] 06/01/2020 01:01:00 PM EST [facility]I ([facility]) Name Value Range Interpretation Code Description Data Kassy rce(s) Supporting Document(s) thyroid stimulating hormone 4.060 uIU/mL 0.358-3.740 Above high no rmal Thyroid Stimulating Hormone [facility] ([facility]) ID Date Data Source [id number] 06/01/2020 01:01:00 PM EST [facility] ([facility]) Name Value Range Interpretation Code Description Data Kassy rce(s) Supporting Document(s) acetaminophen level < 2.0 10.0-30.0 Below low normal Acetaminop hen Level [facility]I ([facility]) ID Date Data Source [id number] 06/01/2020 01:01:00 PM EST [facility] ([facility]) Name Value Range Interpretation Code Description Data Kassy rce(s) Supporting Document(s) salicylate level < 1.7 5.0-30.0 Below low normal Salicylate Le jose [facility]I ([facility]) ID Date Data Source [id number] 06/01/2020 01:01:00 PM EST [facility]I ([facility]) Name Value Range Interpretation Code Description Data Kassy rce(s) Supporting Document(s) ethyl alcohol (ethanol) < 0.003 0.000-0.010 Ethyl Alcoh ol (Ethanol) [facility] ([facility]) ID Date Data Source [id number] 06/01/2020 01:01:00 PM EST S[facility]I ([facility]) Name Value Range Interpretation Code Description Data Kassy rce(s) Supporting Document(s) glucose, fasting 129 mg/dL 70-100 Above high normal Glucose, Fas ting [facility] ([facility]) blood urea nitrogen 12 mg/dL 7-18 Blood Urea Nitro gen [facility] ([facility]) creatinine for GFR 0.83 mg/dL 0.55-1.30 Creatinine for GF R [facility] ([facility]) sodium level 136 mEq/L 136-145 Sodium Level S[facility]I ([facility]) glomerular filtration rate > 60.0 >60 Glomerula r Filtration Rate [facility] ([facility]) potassium serum 3.6 mEq/L 3.5-5.1 Potassium Serum ATH NA ([facility]) chloride level 103 mEq/L 98-107 Chloride Level [facility] ([facility]) carbon dioxide level 23 mEq/L 21-32 Carbon Dioxide Level [facility] ([facility]) anion gap 10 mEq/L 8-16 Anion Gap [facility] ([facility]) calcium level 8.8 mg/dL 8.5-10.1 Calcium Level [facility] ( [facility]) ID Date Data Source [id number] 06/01/2020 01:01:00 PM EST S[facility]I ([facility]) Name Value Range Interpretation Code Description Data Kassy rce(s) Supporting Document(s) AST/SGOT 61 U/L 7-37 Above high normal AST/SGOT [facility] ([facility]) ALT/SGPT 89 U/L 12-78 Above high normal ALT/SGPT [facility] ([facility]) alkaline phosphatase 80 U/L 45-117 Alkaline Phosph atase [facility]I ([facility]) bilirubin,total 0.3 mg/dL 0.2-1.0 Bilirubin,total ATHE NA ([facility]) total protein 8.4 gm/dL 6.4-8.2 Above high normal Total Protein [facility] ([facility]) bilirubin,direct 0.1 mg/dL 0.0-0.2 Bilirubin,direct AT [facility] ([facility]) albumin/globulin ratio 1.2-2.2 Below low normal Albumin /globulin Ratio S[facility]I ([facility]) albumin 4.2 gm/dL 3.2-5.2 Albumin [facility] ([facility]) ID Date Data Source [id number] 06/01/2020 01:01:00 PM EST S[facility]I ([facility]) Name Value Range Interpretation Code Description Data Kassy rce(s) Supporting Document(s) white blood count 5.6 10 4.0-10.0 White Blood Count [facility] ([facility]) red blood count 4.07 10 4.00-5.40 Red Blood Count ATHE NA ([facility]) hemoglobin 12.4 g/dL 12.0-15.5 Hemoglobin [facility]I ([facility]) hematocrit 37.8 % 36.0-47.0 Hematocrit [facility] ([facility]) mean corpuscular hemoglobin 30.5 pg 27.0-33.0 Mean Cor puscular Hemoglobin [facility] ([facility]) mean corpuscular HGB conc 32.8 g/dL 32.0-36.5 Mean Corpu scular HGB Conc [facility] ([facility]) mean corpuscular volume 92.9 fL 80.0-96.0 Mean Corpusc ular Volume [facility]I ([facility]) neutrophils % 39.6 % 36.0-66.0 Neutrophils % [facility] ( [facility]) red cell distribution width 12.8 % 11.5-14.5 Red Cell Distribution Width [facility] ([facility]) platelet count, automated 205 10 150-450 Platelet C ount, Automated [facility] ([facility]) mono % 8.0 % 0.0-5.0 Above high normal [place] % [facility] ([facility]) lymph % 48.6 % 24.0-44.0 Above high normal Lymph % [facility] ([facility]) baso % 0.9 % 0.0-1.0 Baso % [facility] ([facility]) eos % 2.7 % 0.0-3.0 Eos % [facility] ([facility]) immature granulocyte % 0.2 % 0-3.0 Immature Gran ulocyte % [facility] ([facility]) nucleated red blood cell % 0.0 % 0-0 Nucleated Red Blood Cell % [facility] ([facility]) neutrophils # 2.2 10 1.5-8.5 Neutrophils # [facility] ( [facility]) lymph # 2.7 10 1.5-5.0 Lymph # [facility]I ([facility]) mono # 0.5 10 0.0-0.8 [place] # [facility]I ([facility]) eos # 0.2 10 0.0-0.5 Eos # [facility] ([facility]) baso # 0.1 10 0.0-0.2 Baso # [facility] ([facility]) ID Date Data Source [id number] 05/07/2020 09:44:00 AM EDT [facility] Name Value Range Interpretation Code Description Data Kassy rce(s) Supporting Document(s) Free T4 (Free Thyroxine) 0.76-1.46 Normal (applies to non -numeric results) [facility] ID Date Data Source [id number] 05/07/2020 09:44:00 AM EDT [facility] Name Value Range Interpretation Code Description Data Kassy rce(s) Supporting Document(s) Thyroid Stimulate Hormone TSH 0.358-3.740 Above high andrea l [facility] ID Date Data Source [id number] 04/30/2020 01:37:00 PM EDT [facility] Hospital Name: CELY SIMS [facility] Rec #: [id number] 14 : 1985 Age/Sex: 34F Date of Service: 04/30/20 DISPOSITION SUMMARY Discharge Summary [facility] Name:Cely Sims Emergency Department Age:34 yrs [...] Level Provider: Eder Willard PA Followup Physician: Bruna, Provider Orders: CRP - Wide Range, Cbc [...] Discharge Instruction: Discharge Summary Sheet, Constipation, Adult, Hobl-hk-Smwq, Medication Reconciliation Name Value Range Interpretation Code Description Data Kassy rce(s) Supporting Document(s) ID Date Data Source [id number] 04/30/2020 01:37:00 PM EDT [facility] Name: CELY SIMS [facility] Rec #: [id number] 14 : 1985 Age/Sex: 34F Date of Service: 04/30/20 PHYSICIAN CHART Physician Documentation [facility] Name: Cely Sims Age: 34 yrs [...] old Female presents to ER via Walk-In w1 with complaints of Abdominal Pain. 14:35 This [...] fevers, headaches, chest pain, shortness of breath.. 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 ROS: 14:40 Constitutional: Negative for fever, chills, [...] rate of 83 zrw1 beats per minute. [place] 168ms. QRS 94ms. QT 426. Normal axis. . 04/30 14:27 Order name: CRP - Wide Range; Complete Time: 15:22 zrw1 04/30 15:54 Interpretation: CRP-wr < 2.90. zrw1 04/30 14:27 Order name: Cbc With Auto Differential; Complete Time: 15:19zrw1 09/30 15:53 Interpretation: WBC 6.8; HGB 11.6; HCT 34.1; PLT 240; Neut% zrw1 (AUTO) 42; Neut# (AUTO) 2.9. 04/30 14:27 Order name: Comprehensive Metabolic Prof.; Complete Time: zrw1 15:22 04/30 15:53 Interpretation: NA 142; K 4.3; CL 113; CO2 25.0; GAP 4.0; zrw1 BUN 17; CREAT 0.78; Glom Filtration 85; GLU 85; CA 8.5; Corrected CA 8.9; T Bili 0.1; SGOT(AST) 37; SGPT(ALT) 37; ALK PHOS 81; TP 7.4; ALB 3.5. 04/30 14:27 Order name: Lipase; Complete Time: 15:22 w04/30 15:54 Interpretation: LIP 85. [facility] 04/30 14:27 Order name: UA.; Complete Time: 15:19 [facility]04/30 15:02 Interpretation: Ur Color Yellow; Ur Clarity Clear; Ur Leuk zrw1 Est 2+ Mod; Ur Nitrite Negative. 04/30 14:39 Order name: POC Urine HCG for ED; Complete Time: 15:19 dk2 04/30 15:54 Interpretation: POC ED Ur HCG NEGATIVE. [facility]04/30 14:27 Order name: Ct Abdomen & Pelvis with Con [facility] 04/30 14:27 Order name: Collect Urine - Clean Catch; Complete Time: 14:33 04/30 14:58 Order name: Urinalysis Auto w/Microscopy [facility] 04/30 14:58 Order name: Urine Culture [facility] 04/30 15:02 Order name: Emergency Room EKG Order - Use EKG Work-Up w /Quick Select; Complete Time: 15:28 04/30 15:02 Order name: Cardiology EKG Interpretation - Choose Reason [facility] for Test 04/30 14:27 Order name: Iv Saline Lock; Complete Time: 14:44 zr 04/30 14:27 Order name: NPO; Complete Time: 14:34 [facility]04/30 14:27 Order name: POC - Collect UHCG; Complete Time: 14:39 [facility] 04/30 16:17 Order name: Fleets Enema: To Go; Complete Time: 16:18 zrw1 [...] Discharge Summary Sheet zrw1 - Constipation, Adult, Eial-kd-Mryb zrw1 Forms: - Medication Reconciliation zrw1 Prescriptions: - Cephalexin 500 mg Oral Capsule - take 1 capsule by ORAL route every 12 hours for 5 zrw1 days; 10 capsule; Refills: 0, Product Selection Permitted - magnesium citrate Oral Solution - take 1 bottle by ORAL route one time; 1 bottle; zrw1 Refills: 0, Product Selection Permitted Signatures: Dispatcher MedHo Ori Lobo RN RN tp1 Maira Nunez [...] rce(s) Supporting Document(s) ID Date Data Source [id number] 04/30/2020 01:37:00 PM EDT [facility] Name: CELY SIMS [facility] Rec #: [id number] 14 : 1985 Age/Sex: 34F Date of Service: 04/30/20 NURSE CHART Nurse's Notes [facility] Name: Cely Sims Age: 34 yrs Sex: Female : 1985 Arrival Date: 04/30/2020 Time: 13:37 Bed 8 Private MD: Rehab, Provider Diagnosis: Abdominal Pain, Unspecified;Constipation, unspecified Presentation: 04/30 13:38 Acuity: Urgent - 3 awr 13:56 Transition of care: patient was not received from another [facility] setting of care. Presenting complaint: Patient states - She has not had a BM in the last two days despite using suppositories.. Pt is currently at our rehab facility. Have you travelled in the last 30 days? Yes, Where have you travelled? From [place]. . Have you had contact with an [...] Abdomen is distended, The patient reports constipation. 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 Screenin:06 AUDIT 1. How often do you [...] back attempted, invalid phone number Signatures: Surekha Carvajal, RN RN sj Ori Carlson, RN RN tp1 Maira Nunez RN RN dk2 Jesse Hernandez RN RN Yoli Rosado NA NA jmg Willis, Zachary, PA PA zrw1 Antonina Ivey Name Value Range Interpretation Code Description Data Kassy rce(s) Supporting Document(s) ID Date Data Source [id number] 05/01/2020 09:27:00 AM EDT [facility] Name: CELY SIMS : 1985 A ge/Sex: 34F Ordering Provider: LEA White Med Rec #: [id number] Reg Status:[facility] ER Room #: Date of Service: 04/30/20 Report Number: [id number] cc: PCP None; LEA White Send Report To: Reason for exam: ABDOMINAL PAIN SINUS RHYTHM POSSIBLE RIGHT VENTRICULAR CONDUCTION DELAY BORDERLINE ECG Compared to 04/18/2020 there is no significant change Physician Kiss Machine Operator: Serafin Daugherty M.D. ECG HEART RATE: 83 /min ECG RR INTERVAL: 716 ms ECG P DURATION: 119 ms ECG QRS DURATION: 94 ms ECG [place] INTERVAL: 168 ms ECG QT INTERVAL: 426 ms ECG QTC INTERVAL: 466 ms Q-T dispersion: ms ECG P AXIS: 42 deg ECG QRS AXIS: 21 deg ECG T AXIS: 33 deg REPORT SIGNATURE ON FILE 05/01/20927 Reported By: Serafin Daugherty MD, [facility] <<Signature on File>> Exam Date/Time: 04/30/20 1523 Order #: [id number] Dictation Date/Time: 05/01/20926 Transcribed Date/Time: 05/01/20926 Manufacturing Laborer: LETICIA Name Value Range Interpretation Code Description Data Kassy rce(s) Supporting Document(s) ID Date Data Source [id number] 05/02/2020 10:45:00 AM EDT [facility] Name Value Range Interpretation Code Description Data Kassy rce(s) Supporting Document(s) Urine Culture Normal (applies to non-numeric re sults) [facility] ID Date Data Source [id number] 04/30/2020 03:21:00 PM EDT [facility] Name Value Range Interpretation Code Description Data Kassy rce(s) Supporting Document(s) Sodium 142 mmol/L 137-145 Normal (applies to non-numeric resul ts) [facility] Potassium 3.5-5.1 Normal (applies to non-numeric resul ts) [facility] Chloride 113 mmol/L 98-112 Above high normal [facility] Carbon Dioxide CO2 22.0-33.0 Normal (applies to non-numer ic results) [facility] Anion Gap 4.0-11.0 Normal (applies to non-numeric resul ts) [facility] BUN 17 mg/dL 7-17 Normal (applies to non-numeric resul ts) [facility] Creatinine 0.70-1.20 Normal (applies to non-numeric resul ts) [facility] GFR 85 mL/min >60 Normal (applies to non-numeric resul ts) [facility] Result based on MDRD formula. Glucose Level 85 mg/dL 74-99 Normal (applies to non-numeric re sults) [facility] The reference range is only applicable w hen fasting. Calcium-Uncorrected 8.4-10.2 Normal (applies to non-nume claudia results) [facility] Corrected Calcium 8.4-10.2 Normal (applies to non-numeri c results) [facility] Bilirubin,Total 0.2-1.3 Below low normal [facility] SGOT(AST) 37 U/L 14-36 Above high normal [facility] SGPT(ALT) 37 U/L 9-52 Normal (applies to non-numeric resul ts) [facility] Alkaline Phosphatase 81 U/L 38-126 Normal (applies to non-num clementine results) [facility] can increase Alkaline Phosp le vels up to 2 times the normal adult value. Normal values for children and adolescents are 2 to 3 times the normal adult value. Total Protein 6.3-8.2 Normal (applies to non-numeric re sults) [facility] Albumin 3.5-5.0 Normal (applies to non-numeric resul ts) [facility] ID Date Data Source [id number] 04/30/2020 03:21:00 PM EDT [facility] Name Value Range Interpretation Code Description Data Kassy rce(s) Supporting Document(s) C-Reactive Protein,Wide Range <3.00 Normal (applies t o non-numeric results) [facility] ID Date Data Source [id number] 04/30/2020 03:21:00 PM EDT [facility] Name Value Range Interpretation Code Description Data Kassy rce(s) Supporting Document(s) Lipase 85 U/L 73-393 Normal (applies to non-numeric resul ts) [facility] ID Date Data Source [id number] 04/30/2020 03:07:00 PM EDT [facility] Name Value Range Interpretation Code Description Data Kassy rce(s) Supporting Document(s) White Blood Count 4.8-10.8 Normal (applies to non-numeri c results) [facility] Red Blood Count 3.68-5.22 Normal (applies to non-numeric results) [facility] Hemoglobin 11.2-15.7 Normal (applies to non-numeric resul ts) [facility] Hematocrit 34.1-44.9 Normal (applies to non-numeric resul ts) [facility] Mean Corpuscular Volume 81-99 Normal (applies to non- numeric results) [facility] Mean Corpuscular Hemoglobin 27.0-33.0 Normal (appli es to non-numeric results) [facility] Mean Corpuscular HGB Conc 32.0-36.0 Normal (applies to no n-numeric results) [facility] Red Cell Distribution Width 11.5-14.5 Normal (appli es to non-numeric results) [facility] Platelet Count 240 X10 3/uL 130-450 Normal (applies to non-numeric results) [facility] Mean Platelet Volume 9.5-12.7 Normal (applies to non-num clementine results) [facility] Imm Grans% (AUTO) 0 % 0-2 Normal (applies to non-numeri c results) [facility] Neutrophils % (AUTO) 42 % 40-75 Normal (applies to non-num clementine results) [facility] [facility] Lymphocytes % (AUTO) 46 % 21-46 Normal (applies to non-num clementine results) [facility] Monocytes % (AUTO) 7 % 5-12 Normal (applies to non-numer ic results) [facility] Eosinophils % (AUTO) 3 % 1-5 Normal (applies to non-num clementine results) [facility] Basophils % (AUTO) 1 % 0-1 Normal (applies to non-numer ic results) [facility] Imm Grans# (AUTO) 0.0-0.5 Normal (applies to non-numeri c results) [facility] Neutrophils # (AUTO) 1.5-8.1 Normal (applies to non-num clementine results) [facility] Lymphocytes # (AUTO) 1.0-3.1 Above high normal [facility] Monocytes # (AUTO) 0.2-1.3 Normal (applies to non-numer ic results) [facility] Eosinophils# (AUTO) 0.0-0.5 Normal (applies to non-nume claudia results) [facility] Basophils # (AUTO) 0.0-0.1 Normal (applies to non-numer ic results) [facility] ID Date Data Source [id number] 04/30/2020 03:15:00 PM EDT [facility] Control Line Present? YPerformed by: Jewels Valles HCG Screen Result: NEGATIVE Name Value Range Interpretation Code Description Data Kassy rce(s) Supporting Document(s) POC ED Urine HCG NEGATIVE Normal (applies to non-numeric results) [facility] ID Date Data Source [id number] 04/30/2020 03:10:00 PM EDT [facility] Name Value Range Interpretation Code Description Data Kassy rce(s) Supporting Document(s) Color,Urine Yellow Normal (applies to non-numeric resu lts) [facility] Clarity,Urine Clear Normal (applies to non-numeric re sults) [facility] Specific [place],Urine 1.001-1.030 Normal (applies to non- numeric results) [facility] PH,Urine 4.6-8.0 Normal (applies to non-numeric resul ts) [facility] Protein,Urine Negative Normal (applies to non-numeric re sults) [facility] Glucose,Urine (UA) Negative Normal (applies to non-numer ic results) [facility] Ketones,Urine Negative Normal (applies to non-numeric re sults) [facility] Blood,Urine Negative Normal (applies to non-numeric resu lts) [facility] Bilirubin,Urine Negative Normal (applies to non-numeric results) [facility] Urobilinogen,Urine Norm 0.2-1 Normal (applies to non-numer ic results) [facility] Leukocyte Esterase,Urine Negative [facility] Nitrite,Urine Negative Normal (applies to non-numeric re sults) [facility] ID Date Data Source [id number] 04/30/2020 03:10:00 PM EDT [facility] Name Value Range Interpretation Code Description Data Kassy rce(s) Supporting Document(s) WBC,URINE 0-10 [facility],Urine 0-2 Normal (applies to non-numeric resul ts) [facility] Hyaline Casts,Ur None Seen Normal (applies to non-numeric results) [facility] Bacteria,Urine None Seen [facility] Epithelial Cell,Ur None-Few [facility] ID Date Data Source [id number] 05/01/2020 06:14:00 AM EDT [facility] Name: CELY SIMS : 1985 A ge/Sex: 34F Ordering Provider: LEA White Med Rec #: [id number] Reg Status: DEP ER Room #: Date of Service: 04/30/20 Report Number: [id number] cc:PCP None Send Report To: [id number] CT/CT Abdomen & Pelvis w Con Reason [...] Date/Time: 04/30/20 1541 Transcribed Date/Time: 05/01/20 0614 Manufacturing Laborer: CHEL Name Value Range Interpretation Code Description Data Kassy rce(s) Supporting Document(s) ID Date Data Source [id number] 04/23/2020 09:55:00 AM EDT [facility] Name Value Range Interpretation Code Description Data Kassy rce(s) Supporting Document(s) Free T4 (Free Thyroxine) 0.76-1.46 Normal (applies to non -numeric results) [facility] ID Date Data Source [id number] 04/23/2020 09:55:00 AM EDT [facility] Name Value Range Interpretation Code Description Data Kassy rce(s) Supporting Document(s) Thyroid Stimulate Hormone TSH 0.358-3.740 Above high andrea l [facility] ID Date Data Source [id number] 04/18/2020 03:52:00 PM EDT [facility] Name: CELY SIMS : 1985 A ge/Sex: 34F Ordering Provider: Stephanie TATE Med Rec #: [id number] Reg Status:ADM IN Room #: 156-2 Date of Service: 04/18/20 Report Number: [id number] cc: Stephanie TATE; Annelise Gray MD Send Report To: Reason for exam: chest pain with cocaine SINUS RHYTHM POSSIBLE LEFT ATRIAL ENLARGEMENT POSSIBLE RIGHT VENTRICULAR CONDUCTION DELAY NONSPECIFIC T-WAVE ABNORMALITY Physician Kiss Machine Operator: Dr. Ben Tillman M.D. ECG HEART RATE: 78 /min ECG RR INTERVAL: 765 ms ECG P DURATION: 115 ms ECG QRS DURATION: 90 ms ECG [place] INTERVAL: 143 ms ECG QT INTERVAL: 426 ms ECG QTC INTERVAL: 457 ms Q-T dispersion: ms ECG P AXIS: 71 deg ECG QRS AXIS: 72 deg ECG T AXIS: 32 deg REPORT SIGNATURE ON FILE 04/18/20 1552 Reported By: Ben Tillman MD <<Signature on File>> Exam Date/Time: 04/18/20 0759 Order #: [id number] Dictation Date/Time: 04/18/201551 Transcribed Date/Time: 04/18/201551 Manufacturing Laborer: LETICIA Name Value Range Interpretation Code Description Data Kassy rce(s) Supporting Document(s) Procedure Social History Code Duration Value Status Description Data Source(s ) Smoking 04/14/2021 12:00:00 AM EDT Smoker, current status unkn own completed Smoker, current status unknown [facility] ([facility]) 09/15/2020 12:00:00 AM EST Heavy cigarette smoker (20- 39 cigs/day) completed Heavy cigarette smoker (20-39 cigs/day) [facility] ([facility]) Vital Signs ID Date Data Source UNK Name Value Range Interpretation Code Description Data Source(s) Diastolic blood pressure 73 mm[Hg] 73 mm[Hg] [facility]I ([facility]) Systolic blood pressure 104 mm[Hg] 104 mm[Hg] A THENA ([facility]) Body weight 1920 [oz_av] 1920 [oz_av] S[facility]I ([facility]) Body height 154.94 cm 154.94 cm [facility]) Body weight 59.239 kg 59.239 kg [facility] ([facility]) Systolic blood pressure 120 mm[Hg] 120 mm[Hg] N [facility] ([facility]) Diastolic blood pressure 77 mm[Hg] 77 mm[Hg] [facility] ([facility]) Body mass index (BMI) [Ratio] 24.68 kg/m2 24.68 kg/m2 [facility] ([facility]) Body height 154.94 cm 154.94 cm [facility] ([facility]) Body weight 58.967 kg 58.967 kg [facility] ([facility]) Body mass index (BMI) [Ratio] 24.56 kg/m2 24.56 kg/m2 [facility] ([facility]) ID Date Data Source [id number] 02/23/2021 10:02:00 AM EDT [facility] Name Value Range Interpretation Code Description Data Source(s) Weight (Calculated Kilograms) 55.34 55.34 [facility] Height (Calculated Centimeters) 154.94 154. 94 [facility] Body Mass Index (BMI) 23.0 23.0 [facility] ID Date Data Source [id number] 03/09/2021 03:19:00 PM EDT [facility] Name Value Range Interpretation Code Description Data Source(s) Weight Measurement Method 1 1 [facility] Weight (Calculated Kilograms) 55.34 55.34 [facility] Weight 2144 2144 [facility] Temperature Source 7 7 [facility] Temperature 96.4 96.4 [facility] Respiratory Effort 1 1 [facility] Respiratory Rate 16 16 [facility] Pulse Assessment Method 4 4 [facility] Pulse Rate 117 117 [facility] Height (Calculated Centimeters) 154.94 154. 94 [facility] Height 61 61 [facility] Blood Pressure 110/70 110/70 [facility] Body Mass Index (BMI) 23.0 23.0 [facility] Weight Measurement Method 1 1 [facility] Weight (Calculated Kilograms) 55.34 55.34 [facility] Weight 2144 4 [facility] Temperature Source 7 7 [facility] Temperature 96.4 96.4 [facility] Respiratory Effort 1 1 [facility] Respiratory Rate 16 16 [facility] Pulse Assessment Method 4 4 [facility] Pulse Rate 117 117 [facility] Height (Calculated Centimeters) 154.94 154. 94 [facility] Height 61 61 [facility] Blood Pressure 110/70 110/70 [facility] Body Mass Index (BMI) 23.0 23.0 [facility] Weight Measurement Method 1 1 [facility] Weight (Calculated Kilograms) 55.34 55.34 [facility] Weight 2144 4 [facility] Temperature Source 7 7 [facility] Temperature 96.4 96.4 [facility] Respiratory Effort 1 1 [facility] Respiratory Rate 16 16 [facility] Pulse Assessment Method 4 4 [facility] Pulse Rate 117 117 [facility] Height (Calculated Centimeters) 154.94 154. 94 [facility] Height 61 61 [facility] Blood Pressure 110/70 110/70 [facility] Body Mass Index (BMI) 23.0 23.0 [facility] Weight Measurement Method 1 1 [facility] Weight (Calculated Kilograms) 55.34 55.34 [facility] Weight [birth year] [facility] Temperature Source 7 7 [facility] Temperature 97.3 97.3 [facility] Respiratory Effort 1 1 [facility] Respiratory Rate 14 14 [facility] Pulse Assessment Method 4 4 [facility] Pulse Rate 69 69 [facility] Height (Calculated Centimeters) 154.94 154. 94 [facility] Height 61 61 [facility] Blood Pressure 112/79 112/79 [facility] Body Mass Index (BMI) 23.0 23.0 [facility] Weight Measurement Method 1 1 [facility] Weight (Calculated Kilograms) 55.34 55.34 [facility] Weight [birth year] [facility] Temperature Source 7 7 [facility] Temperature 97.1 97.1 [facility] Respiratory Effort 1 1 [facility] Respiratory Rate 16 16 [facility] Pulse Assessment Method 4 4 [facility] Pulse Rate 74 74 [facility] Height (Calculated Centimeters) 154.94 154. 94 [facility] Height 61 61 [facility] Blood Pressure 110/74 110/74 [facility] Body Mass Index (BMI) 23.0 23.0 [facility] Weight (Calculated Kilograms) 56.25 56.25 [facility] Height (Calculated Centimeters) 154.94 154. 94 [facility] Body Mass Index (BMI) 23.4 23.4 [facility] ID Date Data Source [id number] 05/07/2020 09:12:00 AM EDT [facility] Name Value Range Interpretation Code Description Data Source(s) Weight (Calculated Kilograms) 56.25 56.25 [facility] Height (Calculated Centimeters) 154.94 154. 94 [facility] Body Mass Index (BMI) 23.4 23.4 [facility] Weight (Calculated Kilograms) 56.25 56.25 [facility] Height (Calculated Centimeters) 154.94 154. 94 [facility] Body Mass Index (BMI) 23.4 23.4 [facility] Weight (Calculated Kilograms) 56. 56.25 [facility] Height (Calculated Centimeters) 154.94 154. 94 [facility] Body Mass Index (BMI) 23.4 23.4 [facility] Weight (Calculated Kilograms) 56.25 56.25 [facility] Height (Calculated Centimeters) 154.94 154. 94 [facility] Body Mass Index (BMI) 23.4 23.4 [facility] ID Date Data Source [id number] 05/19/2020 05:30:00 AM EDT [facility] Name Value Range Interpretation Code Description Data Source(s) Weight Measurement Method 1 1 [facility] Weight (Calculated Kilograms) 56.25 56.25 [facility] Weight 2063 2063 [facility] Temperature Source 7 7 [facility] Temperature 97.5 97.5 [facility] Respiratory Effort 1 1 [facility] Respiratory Rate 15 15 [facility] Pulse Assessment Method 4 4 [facility] Pulse Rate 83 83 [facility] Height (Calculated Centimeters) 154.94 154. 94 [facility] Height 61 61 [facility] Blood Pressure 109/75 109/75 [facility] Body Mass Index (BMI) 23.4 23.4 [facility] Weight Measurement Method 1 1 [facility] Weight (Calculated Kilograms) 56.25 56.25 [facility] Weight 2063 2063 [facility] Temperature Source 7 7 [facility] Temperature 97.5 97.5 [facility] Respiratory Effort 1 1 [facility] Respiratory Rate 15 15 [facility] Pulse Assessment Method 4 4 [facility] Pulse Rate 83 83 [facility] Height (Calculated Centimeters) 154.94 154. 94 [facility] Height 61 61 [facility] Blood Pressure 109/75 109/75 [facility] Body Mass Index (BMI) 23.4 23.4 [facility] Weight Measurement Method 1 1 [facility] Weight (Calculated Kilograms) 56.25 56.25 [facility] Weight 2063 2063 [facility] Temperature Source 7 7 [facility] Temperature 97.5 97.5 [facility] Respiratory Effort 1 1 [facility] Respiratory Rate 15 15 [facility] Pulse Assessment Method 4 4 [facility] Pulse Rate 83 83 [facility] Height (Calculated Centimeters) 154.94 154. 94 [facility] Height 61 61 [facility] Blood Pressure 109/75 109/75 [facility] Body Mass Index (BMI) 23.4 23.4 [facility] Weight Measurement Method 1 1 [facility] Weight (Calculated Kilograms) 56.25 56.25 [facility] Weight 2063 2063 [facility] Temperature Source 7 7 [facility] Temperature 97.5 97.5 [facility] Respiratory Effort 1 1 [facility] Respiratory Rate 15 15 [facility] Pulse Assessment Method 4 4 [facility] Pulse Rate 83 83 [facility] Height (Calculated Centimeters) 154.94 154. 94 [facility] Height 61 61 [facility] Blood Pressure 109/75 109/75 [facility] Body Mass Index (BMI) 23.4 23.4 [facility] Weight Measurement Method 1 1 [facility] Weight (Calculated Kilograms) 56.25 56.25 [facility] Weight [birth year] [facility] Temperature Source 7 [facility] Temperature 96.9 96.9 [facility] Respiratory Effort 1 1 [facility] Respiratory Rate 15 15 [facility] Pulse Assessment Method 4 4 [facility] Pulse Rate 90 90 [facility] Height (Calculated Centimeters) 154.94 154. 94 [facility] Height 61 61 [facility] Blood Pressure 104/67 104/67 [facility] Body Mass Index (BMI) 23.4 23.4 [facility] Weight Measurement Method 1 1 [facility] Weight (Calculated Kilograms) 56.25 56.25 [facility] Weight [birth year] [facility] Temperature Source 7 7 [facility] Temperature 97.8 97.8 [facility] Respiratory Effort 1 1 [facility] Respiratory Rate 17 17 [facility] Pulse Assessment Method 4 4 [facility] Pulse Rate 93 93 [facility] Height (Calculated Centimeters) 154.94 154. 94 [facility] Height 61 61 [facility] Blood Pressure 110/87 110/87 [facility] Body Mass Index (BMI) 23.4 23.4 [facility] Weight (Calculated Kilograms) 72.12 72.12 [facility] Height (Calculated Centimeters) 154.94 154. 94 [facility] Body Mass Index (BMI) 30.0 30.0 [facility] Patient Treatment Plan of Care Planned Activity Planned Date Details Description Data Source (s) Sertraline 50 MG Oral Tablet [Zoloft] 01/18/2021 12:00:[address] [facility] Risperidone 3 MG Oral Tablet [Risperdal] 01/18/2021 12:00:[address] [facility] Prazosin 2 MG Oral Capsule [Minipress] 01/18/2021 12:00:[address] [facility] olanzapine 15 MG Oral Tablet 01/18/2021 12:00:[address] [facility] Multi-Vit/Mineral (Multivitamin Tablet) 1 TAB TAB 01/18/2021 12: 00:[address] [facility] Mirtazapine 15 MG Oral Tablet 01/18/2021 12:00:[address] [facility] gabapentin 600 MG Oral Tablet 01/18/2021 12:00:[address] [facility] doxycycline hyclate 100 MG Oral Tablet 01/18/2021 12:00:[address] [facility] Docusate Sodium 100 MG Oral Capsule [Colace] 01/18/2021 12:00:[address] [facility] Buprenorphine 8 MG / Naloxone 2 MG Oral Strip [Suboxon e] 01/18/2021 12:00:00 AM [facility] Metronidazole 500 MG Oral Tablet 09/22/2020 12:00:00 AM EST [facility] ([facility]) 168 HR Ethinyl Estradiol 0.34952 MG/HR / norelgestromin 0.11709 MG/HR Transdermal Patch [Xulane] 03/03/2020 12:00:00 AM EDT [facility] ([facility]) Trazodone Hydrochloride 100 MG Oral Tablet SUSI ([facility]) topiramate 50 MG Oral Tablet S[facility]I ([facility]) topiramate 25 MG Oral Tablet S[facility]I ([facility]) Sulfamethoxazole 800 MG / Trimethoprim 160 MG Oral Tablet [facility] ([facility]) Sertraline 50 MG Oral Tablet [facility] ([facility]) Sertraline 25 MG Oral Tablet [facility] ([facility]) Sertraline 100 MG Oral Tablet [facility] ([facility]) Risperidone 3 MG Oral Tablet [facility] ([facility]) Risperidone 2 MG Oral Tablet [facility] ([facility]) Prazosin 2 MG Oral Capsule A THENA ([facility]) Prazosin 1 MG Oral Capsule A THENA ([facility]) 24 HR paliperidone 6 MG Extended Release Oral Tablet SUSI ([facility]) 24 HR paliperidone 3 MG Extended Release Oral Tablet [facility] ([facility]) 24 HR Oxybutynin chloride 5 MG Extended Release Oral Tablet [facility]I ([facility]) 24 HR Oxybutynin chloride 10 MG Extended Release Oral Tablet [facility]I ([facility]) olanzapine 5 MG Oral Tablet QU[facility] ([facility]) olanzapine 5 MG Disintegrating Oral Tablet [facility] ([facility]) benztropine mesylate 1 MG Oral Tablet [facility] ([facility]) atomoxetine 40 MG Oral Capsule [facility] ([facility]) atomoxetine 10 MG Oral Capsule [facility] ([facility]) aripiprazole 2 MG Oral Tablet [facility] ([facility]) Amitriptyline Hydrochloride 25 MG Oral Tablet [facility] ([facility]) Sertraline 50 MG Oral Tablet [Zoloft] [facility]. Risperidone 3 MG Oral Tablet [Risperdal] [facility] Prazosin 2 MG Oral Capsule [Minipress] [facility] olanzapine 15 MG Oral Tablet [facility] Mirtazapine 15 MG Oral Tablet [facility]. gabapentin 600 MG Oral Tablet [facility] Docusate Sodium 100 MG Oral Capsule [Colace] [facility] Buprenorphine 8 MG / Naloxone 2 MG Oral Strip [Suboxone] [facility] topiramate 50 MG Oral Tablet [Topamax] [facility] ([facility]) olanzapine 10 MG Oral Tablet SUSI ([facility]) Naproxen 500 MG Oral Tablet [facility] ([facility]) Mirtazapine 15 MG Oral Tablet [facility] ([facility]) Metronidazole 500 MG Oral Tablet [facility] ([facility]) Loratadine 10 MG Oral Tablet [facility] ([facility]) Levothyroxine Sodium 0.05 MG Oral Tablet [facility] ([facility]) Hydroxyzine Hydrochloride 50 MG Oral Tablet [facility] ([facility]) Hydroxyzine Hydrochloride 25 MG Oral Tablet [facility] ([facility]) Haloperidol 2 MG Oral Tablet [facility] ([facility]) Haloperidol 10 MG Oral Tablet [facility] ([facility]) gabapentin 400 MG Oral Capsule [facility] ([facility]) gabapentin 300 MG Oral Capsule S[facility] ([facility]) 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 MG Oral Capsule [facility] ([facility]) Fluoxetine 10 MG Oral Capsule [facility]I ([facility]) doxycycline hyclate 100 MG Oral Tablet [facility] ([facility]) Docusate Sodium 100 MG Oral Capsule [facility] ([facility]) Divalproex Sodium 500 MG Delayed Release Oral Tablet [facility] ([facility]) Divalproex Sodium 250 MG Delayed Release Oral Tablet [facility] ([facility]) Cephalexin 500 MG Oral Capsule [facility] ([facility]) buspirone hydrochloride 7.5 MG Oral Tablet [facility] ([facility])
[2021-06-18 03:37] LABS: HEMATOCRIT 42.6 % (36.0-47.0); HEMOGLOBIN 14.3 g/dl (12.0-15.5); MEAN CORPUSCULAR HEMOGLOBIN 30.8 pg (27.0-33.0); MEAN CORPUSCULAR HGB CONC 33.6 g/dl (32.0-36.5); MEAN CORPUSCULAR VOLUME 91.6 fl (80.0-96.0); PLATELET COUNT, AUTOMATED 227 10^3/uL (150-450); RED BLOOD COUNT 4.65 10^6/uL (4.00-5.40); WHITE BLOOD COUNT 6.9 10^3/uL (4.0-10.0)
[2021-06-18 04:03] LABS: HCG, SERUM QUALITATIVE NEGATIVE (NEGATIVE)
[2021-06-18 04:11] LABS: ACETAMINOPHEN LEVEL < 2.0 UG/ML (10.0-30.0); ALT/SGPT 34 U/L (12-78); BILIRUBIN,DIRECT < 0.1 MG/DL (0.0-0.2); BILIRUBIN,TOTAL 0.2 MG/DL (0.2-1.0); BLOOD UREA NITROGEN 6 MG/DL (7-18); CALCIUM LEVEL 9.4 MG/DL (8.5-10.1); CARBON DIOXIDE LEVEL 24 MEQ/L (21-32); CHLORIDE LEVEL 106 MEQ/L (98-107); CREATININE FOR GFR 0.66 MG/DL (0.55-1.30); ETHYL ALCOHOL (ETHANOL) < 0.003 % (0.000-0.010); GLOMERULAR FILTRATION RATE > 60.0 (>60); GLUCOSE, FASTING 129 MG/DL (70-100); POTASSIUM SERUM 4.3 MEQ/L (3.5-5.1); SALICYLATE LEVEL 2.5 MG/DL (5.0-30.0); SODIUM LEVEL 137 MEQ/L (136-145); TOTAL PROTEIN 8.7 GM/DL (6.4-8.2)
[2021-06-18 04:18] LABS: RSV AMPLIFICATION NEGATIVE (NEGATIVE)
[2021-06-18 04:26] LABS: AMPHETAMINES LEVEL URINE POSITIVE (NEGATIVE); BARBITURATES URINE NEGATIVE (NEGATIVE); BENZODIAZEPINES URINE NEGATIVE (NEGATIVE); CANNABINOIDS URINE NEGATIVE (NEGATIVE); COCAINE METABOLITE URINE NEGATIVE (NEGATIVE); METHADONE URINE NEGATIVE (NEGATIVE); OPIATES URINE NEGATIVE (NEGATIVE); PHENCYCLIDINE URINE NEGATIVE (NEGATIVE)
--- OUTSIDE RECORDS SUMMARY | 2021-06-18 07:29 | CCD ---
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 Diagnosis 01/27/2021 01:41:00 PM [facility] M54.9 Dorsalgia, unspecified DORSALGIA, UNSPECIFIED Diagnosi s 01/27/2021 01:41:00 PM [facility] N32.81 Overactive bladder OVERACTIVE BLADDER Diagnosis 01:41:00 PM [facility] D64.9 Anemia, unspecified ANEMIA, UNSPECIFIED Diagnosis 0 01/27/2021 01:41:00 PM [facility] K21.9 Gastro-esophageal reflux disease without esophagitis GASTRO-ESOPHAGEAL REFLUX DISEASE WITHOUT ESOPHAGITIS Diagnosis 01/27/2021 01:41:00 PM ED [facility] G89.29 Other chronic pain OTHER CHRONIC PAIN Diagnosis 01:41:00 PM [facility] Z87.820 Personal history of traumatic brain inju ry PERSONAL HISTORY OF TRAUMATIC BRAIN INJURY Diagnosis 01/27/2021 01:41:00 PM [facility] R00.1 Bradycardia, unspecified BRADYCARDIA, UNSPECIFIED Diag nosis 01/27/2021 01:41:00 PM [facility] R94.31 Abnormal electrocardiogram [ECG] [EKG] A BNORMAL ELECTROCARDIOGRAM [ECG] [EKG] Diagnosis 01/27/2021 01:41:00 PM [facility] Z86.19 Personal history of other infectious and parasitic diseases PERSONAL HISTORY OF OTHER INFECTIOUS AND PARASITIC DISEASES Diagnosis 01:41:00 PM [facility] F17.210 Nicotine dependence, cigarettes, uncompl icated NICOTINE DEPENDENCE, CIGARETTES, UNCOMPLICATED Diagnosis 01/27/2021 01:41:00 PM [facility] 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, uncomplicated H ALLUCINOGEN DEPENDENCE, UNCOMPLICATED Diagnosis 01/27/2021 01:41:00 PM [facility] F12.20 Cannabis dependence, uncomplicated CANNABIS DEPE NDENCE, UNCOMPLICATED Diagnosis 01/27/2021 01:41:00 PM [facility] F15.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, uncomplicate d OTHER STIMULANT DEPENDENCE, UNCOMPLICATED Diagnosis 01/27/2021 01:41:00 PM [facility] F11.20 Opioid dependence, uncomplicated OPIOID DEPENDEN CE, UNCOMPLICATED Diagnosis 01/27/2021 01:41:00 PM [facility] Z79.899 Other custodial (current) drug therapy O THER HALF-WAY (CURRENT) DRUG THERAPY Diagnosis 04/30/2020 01:37:00 PM [facility] Z87.891 Personal history of nicotine dependence PERSONAL HISTORY OF NICOTINE DEPENDENCE Diagnosis 04/30/2020 01:37:00 PM [facility] F41.8 Other specified anxiety disorders OTHER SPECIFIE D ANXIETY DISORDERS Diagnosis 04/30/2020 01:37:00 PM [facility] F20.9 Schizophrenia, unspecified SCHIZOPHRENIA, UNSPECIFIED Diagnosis 04/30/2020 01:37:00 PM [facility] R10.9 Unspecified abdominal pain UNSPECIFIED ABDOMINAL PAIN Diagnosis 04/30/2020 01:37:00 PM [facility] [id number] Recurrent umbilical hernia Recurrent Umbilical Hernia Problem 05/13/2021 12:00:00 AM [facility] ([facility]) [id number] Viral hepatitis C Viral hepatitis C Problem 09/15/2020 12:00:00 AM EST [facility] ([facility]) Surgeries/Procedures Procedure Description Date Indications Data Source(s) Individual Counseling for Substance Abuse Treatment, C ontinuing Care INDIV WILLOW MACHINE TENDER FOR SUBSTANCE ABUSE TREATMENT, CONTINUING CARE 01/27/2021 12:00:00 AM [facility] Individual Counseling for Substance Abuse Treatment, C ognitive-Behavioral INDIV WILLOW MACHINE TENDER FOR SUBSTANCE ABUSE, COGNITIVE BEHAVIORAL 01/27/2021 12:00:00 AM [facility] Group Counseling for Substance Abuse Treatment, Motiva tional Enhancement GROUP WILLOW MACHINE TENDER FOR SUBSTANCE ABUSE, MOTIVATIONAL ENHANCE 01/27/2021 12:00:00 AM [facility] Group Counseling for Substance Abuse Treatment, Spirit ual GROUP COUNSELING FOR SUBSTANCE ABUSE TREATMENT, SPIRITUAL 01/27/2021 12:00:00 AM EDT [facility] Group Counseling for Substance Abuse Treatment, Interp ersonal GROUP WILLOW MACHINE TENDER FOR SUBSTANCE ABUSE TREATMENT, INTERPERSONAL 01/27/2021 12:00:00 AM EDT [facility] CVR Veterinary Bacteriologist.Svc. STI / H 09/15/2020 12:00:00 AM EST - 09/15/2020 12:00:00 AM EST [facility] ([facility]) CVR Veterinary Bacteriologist.Svc. Other 09/15/2020 12:00:00 AM EST - 2020 12:00:00 AM EST [facility] ([facility]) CVR Veterinary Bacteriologist.Svc. Contraceptive 09/15/2020 12 :00:00 AM EST - 09/15/2020 12:00:00 AM EST [facility] ([facility]) CVR Med.Svc. Height/Weight 09/15/2020 12 :00:00 AM EST - 09/15/2020 12:00:00 AM EST [facility] ([facility]) CVR Blood Pressure 09/15/2020 12:00:00 AM EST - 2020 12:00:00 AM EST [facility] ([facility]) CVR Med.Svc. Other 09/15/2020 12:00:00 AM EST - 2020 12:00:00 AM EST [facility] ([facility]) TRICHOMONAS VAGIN, DIR PROBE 09/15/2020 12:00:00 AM EST - 09/15/2020 12:00:00 AM EST [facility] ([facility]) JUAREZ VAG, DNA, DIR PROBE 09/15/2020 1 2:00:00 AM EST - 09/15/2020 12:00:00 AM EST [facility] ([facility]) DONTE, DNA, DIR PROBE 09/15/2020 12:00 :00 AM EST - 09/15/2020 12:00:00 AM EST [facility] ([facility]) ROUTINE VENIPUNCTURE 09/15/2020 12:00:00 AM EST - 09/15/2020 12:00:00 AM EST [facility] ([facility]) HEPATITIS C, RNA, AMP PROBE 09/15/2020 [...] Hospital) CHYLMD TRACH SWAB 09/15/2020 12:00:00 AM [facility] - 021 12:00:00 AM EST [facility] ([facility] [...] & PELV W/CONTR AST 04/30/2020 12:00:00 AM EDT [facility] Low osmolar contrast material, 300-399 mg/ml iodine co ncentration, per ml Locm 300-399mg/ml iodine,1ml Long 04/30/2020 12:00:00 AM EDT [facility] ECG ROUTINE ECG W/LEAST 12 LDS TRCG ONLY W/O I&R ELECTROCARD IOGRAM TRACING 04/30/2020 12:00:00 AM [facility] CULTURE BACTERIAL QUANTTATIVE COLONY COUNT URINE URINE CULTU RE/COLONY COUNT 04/30/2020 12:00:00 AM [facility] URINALYSIS MICROSCOPIC ONLY MICROSCOPIC EXAM OF URINE 2019 12:00:00 AM [facility] BLOOD COUNT COMPLETE AUTO&AUTO DIFRNTL WBC COUNT COMPLETE CB C W/AUTO DIFF WBC 04/30/2020 12:00:00 AM [facility] URINE TEST VISUAL COLOR CMPRSN METHS URINE PREGNAN CY TEST 04/30/2020 12:00:00 AM [facility] C-REACTIVE PROTEIN C-REACTIVE PROTEIN 04/30/2020 12:00:00 AM [facility] LIPASE ASSAY OF LIPASE 04/30/2020 12:00:00 AM [facility] COMPREHENSIVE METABOLIC PANEL COMPREHEN METABOLIC PANEL 04/03 12:00:00 AM [facility] THER PROPH/DX NJX IV PUSH SINGLE/1ST SBST/DRUG THER/PROPH/DI AG INJ IV PUSH 04/30/2020 12:00:00 AM [facility] IV INFUSION HYDRATION EACH ADDITIONAL HOUR HYDRATE IV INFUSI ON ADD-ON 04/30/2020 12:00:00 AM [facility] EMERGENCY DEPARTMENT VISIT HIGH/URGENT SEVERITY EMERGENCY DE PT VISIT 04/30/2020 12:00:00 AM [facility] Results ID Date Data Source [id number] 06/01/2021 11:01:00 PM EDT [facility] Name Value Range Interpretation Code Description Data Kassy rce(s) Supporting Document(s) SARS coronavirus 2 RNA [Presence] in Res piratory specimen by IRIS with probe detection NEGATIVE [facility] This lab was ordered by [facility] a nd reported by [facility]. ID Date Data Source [id number] 05/20/2021 12:33:00 AM EDT [facility] Name Value Range Interpretation Code Description Data Kassy rce(s) Supporting Document(s) SARS coronavirus 2 RNA [Presence] in Res piratory specimen by IRIS with probe detection NEGATIVE [facility] This lab was ordered by [facility] a nd reported by [facility]. ID Date Data Source [id number] 02/23/2021 12:54:00 AM EDT [facility] Name Value Range Interpretation Code Description Data [...] and legal purposes) ID Date Data Source [id number] 03/07/2021 08:09:00 PM EDT [facility] Name Value Range Interpretation Code Description Data Kassy rce(s) Supporting Document(s) HCV RNA Detect/Quant,S result Normal (applies t o non-numeric results) [facility] ID Date Data Source [id number] 03/07/2021 08:09:00 PM EDT [facility] Name Value Range Interpretation Code Description Data Kassy rce(s) Supporting Document(s) Hepatitis C Antibody Screen Negative Normal (appli es to non-numeric results) [facility] Supplemental testing for HCV RNA is orde red to rule out active HCV infection. Fsrjjg-tr-hsssea ratio is >=8.00. Test Performed by: [facility] [place] [address] Certified Low Vision Therapist: Eris Mack M.D. Ph.D.; CLIA# [id number] THIS IS A STATE REPORTABLE COMMUNICABLE DISEASE. Hep C Virus Qnt (Rfx'd) 116464 IU/mL Undetected Normal ( applies to non-numeric results) [facility] Result in log IU/mL is 5.59. ---------ADDITIONAL INFORMATION The quantification range of this assay is 15 to 100,000,000 IU/mL (1.18 log to 8.00 log IU/mL). Testing was performed using the leda HCV test ([employer] with the leda 6800 System. Test Performed by: [facility] [address] [place] [address] Certified Low Vision Therapist: Eris Mack M.D. Ph.D.; CLIA# [id number] THIS IS A STATE REPORTABLE COMMUNICABLE DISEASE. ID Date Data Source [id number] 01/28/2021 12:58:00 PM EDT [facility] Name Value Range Interpretation Code Description Data Kassy rce(s) Supporting Document(s) HIV 1/2 Ab p24 Ag Screen Nonreactive Normal (applies to non-numeric results) [facility] ID Date Data Source [id number] 01/28/2021 12:27:00 PM EDT [facility] Name Value Range Interpretation Code Description Data Kassy rce(s) Supporting Document(s) Magnesium 1.80-2.40 Normal (applies to non-numeric resul ts) [facility] ID Date Data Source [id number] 01/28/2021 12:27:00 PM EDT [facility] Name Value Range Interpretation Code Description Data [...] Health System Creatinine 0.70-1.20 Below low normal [facility] GFR >60 Normal (applies to non-numeric results) [facility] Result based on MDRD formula. Glucose Level 72 mg/dL 74-99 Below low normal [facility] The reference range is only [...] SGOT(AST) 71 U/L 14-36 Above high normal [facility] SGPT(ALT) 68 U/L 9-52 Above high normal [facility] Alkaline Phosphatase 94 U/L 38-126 [...] [facility] ID Date Data Source [id number] 01/28/2021 12:27:00 PM EDT [facility] Name Value Range Interpretation Code Description Data Kassy rce(s) Supporting Document(s) C-Reactive Protein,Wide Range <3.00 Normal (applies t o non-numeric results) [facility] ID Date Data Source [id number] 01/28/2021 11:43:00 AM EDT [facility] Name Value Range Interpretation Code [...] 33 % 40-75 Below low normal [facility] Lymphocytes % (AUTO) 54 % 21-46 Above high normal [facility] Monocytes % (AUTO) 8 % 5-12 [...] [facility] ID Date Data Source [id number] 01/28/2021 12:58:00 PM EDT [facility] Name Value Range Interpretation Code Description Data Kassy rce(s) Supporting Document(s) Hep Bs Ag Result T-Test Nonreactive Normal (applies to non -numeric results) [facility] ID Date Data Source [id number] 01/28/2021 12:58:00 PM EDT [facility] Name Value Range Interpretation Code Description Data Kassy rce(s) Supporting Document(s) Vitamin D,Total (25OH) 30.0-100.0 Below low normal [facility] Reference Range: <10 ng/mL: Deficien t 10-30 ng/mL: Insufficient 30-100 ng/mL: Sufficient >100 ng/mL: Toxicity possible ID Date Data Source [id number] 01/28/2021 12:58:00 PM EDT [facility] Name Value Range Interpretation Code Description Data Kassy rce(s) Supporting Document(s) HAVM Nonreactive Normal (applies to non-numeric resu lts) [facility] ID Date Data Source [id number] 01/28/2021 12:58:00 PM EDT [facility] Name Value Range Interpretation Code Description Data Kassy rce(s) Supporting Document(s) Syphilis Serology Nonreactive Normal (applies to non-numer ic results) [facility] ID Date Data Source [id number] 02/05/2021 11:02:00 AM EDT [facility] Name Value Range Interpretation Code Description Data Kassy rce(s) Supporting Document(s) Cannabinoids Confirm,Ur result . Very abnor mal (applies to non-numeric units [facility] Carboxy THC GC/MS Conf 106 ng/mL Cutoff=10 01 Performed at: [facility] [id number] Certified Low Vision Therapist: Ban Gaxiola MD, Phone: [phone] ID Date Data Source [id number] 01/27/2021 05:02:00 PM EDT [facility] Name Value Range Interpretation Code Description Data Kassy rce(s) Supporting Document(s) Color,Urine Yellow [facility] pital Clarity,Urine Clear [facility] ospital Specific [place],Urine 1.001-1.030 Normal (applies to non- numeric results) [facility] PH,Urine 5.0-8.0 Normal (applies to non-numeric resul ts) [facility] Protein,Urine Negative Normal (applies to non-numeric re sults) [facility] Glucose,Urine (UA) Negative Normal (applies to non-numer ic results) [facility] Ketones,Urine Negative [facility] ospital Blood,Urine Negative Normal (applies to non-numeric resu lts) [facility] Bilirubin,Urine Negative [facility] Positive Bilirubin is no longer doublech ecked. Bilirubin may be elevated due to urine color interference. Urobilinogen,Urine Norm 0.2-1 Normal (applies to non-numer ic results) [facility] Leukocyte Esterase,Urine Negative [facility] Nitrite,Urine Negative Normal (applies to non-numeric re sults) [facility] ID Date Data Source [id number] 01/27/2021 05:02:00 PM EDT [facility] Name Value Range Interpretation Code Description Data Kassy rce(s) Supporting Document(s) WBC,URINE 0-10 Normal (applies to non-numeric resul ts) [facility],U[facility] 0[facility] Hy[facility] Casts,Ur None Seen Normal (applies to non-numeric results) [facility] Bacteria,Urine None Seen [facility] Epithelial Cell,Ur None-Few Normal (applies to non-numer ic results) [facility] Crystals, Urine None Seen [facility] ID Date Data Source [id number] 01/27/2021 05:02:00 PM EDT [facility] Name Value Range Interpretation Code Description Data Kassy rce(s) Supporting Document(s) Urine HCG Negative Normal (applies to non-numeric resul ts) [facility] ID Date Data Source [id number] 01/27/2021 03:52:00 PM EDT [facility] Name Value Range Interpretation Code Description Data Kassy rce(s) Supporting Document(s) Opiate Screen,Urine Negative Normal (applies to non-nume claudia results) [facility] Amphetamine Screen,Urine Negative Bhagat [facility] Benzodiazepines Scrn,Ur result Negative N ormal [...] and legal purposes) ID Date Data Source [id number] 01/27/2021 02:00:00 PM EDT [facility] Name Value Range Interpretation Code Description Data Kassy rce(s) Supporting Document(s) Respiratory specimen severe acute respir atory syndrome coronavirus 2 (SARS-CoV-2) RNA Negative (qualifier value) [facility] This lab was ordered by [facility] Ric davila and reported by [facility]. ID Date Data Source [id number] 01/27/2021 02:35:00 PM EDT [facility] Negative results should be treated as pr [...] Certificate of Accreditation. Factsheets for healthcare providers: https://www.fda.gov/media/159011/download Factsheets for patients: https://www.fda.gov/media/878774/download The ID NOW Instrument is a rapid molecular in vitro diagnostic test utilizing an isothermal nucleic acid amplification technology intended for the qualitative detection of nucleic acid from the SARS-CoV-2 viral RNA. THIS IS A STATE REPORTABLE COMMUNICABLE DISEASE. Manual entry verified by Jessika Villareal 01/27/21 1435 Test Performed By: [facility] [address] [place] [address] Director: Trinidad Zarco MD Name Value Range Interpretation Code Description Data Kassy rce(s) Supporting Document(s) ID Date Data Source [id number] 01/18/2021 01:26:00 PM EDT [facility] DISCHARGE SUMMARY, ADULTDischarge Diagno sis1. Opiate abuse, continuous2. Hypotension, chronicPreceding HistoryPreceding history / Reason for -qvrc-vsp female who presented today for getting detox done. She usesheroin 1 bundle per day, last use was at 6 a.m. today, Sylvie 1-2 gram aday, last use was 1 week ago, meth 1-2 gram daily and with last use 2days ago, cannabis daily a couple of buffy. Today prior to [facility], the patient took multiple pills of [...] schizoaffecivedisorder, bipolar, anxiety and [facility]. Patient [...] she can go to inpatient rehab at [facility] on 01/22. Marilynn entendorsed that [...] Provider, in 1 week, Inpatient rehab at [facility] Care Provider:NONENursing Appointments ScheduledOther Follow up with:PT IS TO HAVE INPT REHAB AT [facility] 01/22/21KRISITN COUNCELOR TO CALL [facility] TO PROVIDE ADESIGNATED TIME FOR ARRIVALMEDICATIONSMedication ReconciledBuprenorphine HCl/Naloxone HCl(Suboxone 8 MG-2 MG Sl Film) 1 EACH FILM 8 MG SL BID 5 Days #10 FILM,Ref 0Prescribed by Kena Chowdhury, on 01/18/21Last Action: No Recorded ActionDocusate Sodium(Colace) 100 MG CAPSULE 200 MG PO DAILY PRN 5 Days #10 TAB, Ref 0Prescribed by Kena Chowdhury, on 01/18/21Last Action: No Recorded ActionDoxycycline Kqmwfof585 MG TABLET 100 MG PO BID 10 Days #20 TAB, Ref 0Prescribed by Kena Chowdhury, on 01/18/21Last Action: No Recorded GaieweZbryhvzilz576 MG TABLET 600 MG PO TID 5 Days #15 TAB, Ref 0Prescribed by Kena Chowdhury, on 01/18/21Last Action: No Recorded CvgfcnKscgqbptimx02 MG TABLET 15 MG PO HS 5 Days #5 TAB, Ref 0Prescribed by Kena Chowdhury, on 01/18/21Last Action: No Recorded ActionMulti-Vit/Mineral(Multivitamin Tablet) 1 TAB TAB 1 TAB PO DAILY 5 Days #5 TAB, Ref 0Prescribed by Kena Chowdhury, on 01/18/21Last Action: No Recorded XahoksQbemijwsru10 MG TABLET 15 MG PO HS 5 [...] is following - inpatient bed available at [facility] on 01/22.2. Gabapentin overdose. Poison [...] prophylaxis: Early ambulationDispo: Inpatient bed available at [facility] on 01/22. Stable for discharge andwill stay with her stepdad.Time spent60 MinutesDictated on 01/18/21 1326 by Kena Chowdhury DOTranscribed on 01/18/21 1326 by Kena Chowdhury, DOSign by Kena Chowdhury DO on 01/18/21 1404Sign by: Kena Chowdhury DO Name Value Range Interpretation Code Description Data Kassy rce(s) Supporting Document(s) ID Date Data Source [id number] 01/17/2021 02:41:00 PM EDT [facility]. Counselor Progress NotePatient NoteCOUNS LIZA [...] 01/22/21 WHEN HER BED IS OPEN AT [facility] REHAB. ALSO COUNSELOR SET UPTANSPORTATION FOR PATIENT SHE COULD NOT GET A RIDE HOME. SO HER RIDEWILL BE HERE TOMORROW AT 1:00 PM AFTER SHE IS DISCHARGED.Dictated on 01/17/21 1441 by Cherrie,TriciaTranscribed on 01/17/21 1441 by CherrieTriciaSign by Cherrie,Nuzhat on 01/17/21 1446Sign by: Nuzhat Grier Name Value Range Interpretation Code Description Data Kassy rce(s) Supporting Document(s) ID Date Data Source [id number] 01/17/2021 11:27:00 AM EDT [facility]. Counselor Progress NotePatient NoteDR. C ELVIS IN TO TALK TO COUNSELOR ABOUT PATIENT AND HER BEING DISCHARGEDAND HER AFTER PLANS. COUNSELOR CALLED [facility] AND TALKED TOA SAFETY DEPOSIT SUPERVISOR ABOUT PATIENT GOING THERE ONLY TO FIND OUT THAT IT'S A DETOXCENTER WELL. COUNSELOR HAD GONE TO TALK TO THE DR ABOUT [facility] TO LET HIM KNOW WHAT SHE HAD FOUND OUT. TOLD COUNSELOR THAT EVIE TALKED TO PATIENT ABOUT HER STAYING WITH HER STEPDAD UNTIL HER BEDWAS READY AT [facility] 01[facility]22[facility]21. SO COUNSELOR WENT [...] Cherrie,KyraiaSign by Cherrie,Nuzhat on 01/17/21 1133Sign by: Nuzhat Grier Name Value Range Interpretation Code Description Data Kassy rce(s) Supporting Document(s) ID Date Data Source [id number] 01/17/2021 10:19:00 AM EDT [employer]. Counselor Progress NotePatient NoteCHUYITA DE JESUS WENT [...] Cherrie,TriciaTranscribed on 01/17/21 1019 by Cherrie,TriciaSign by CherrieNuzhat on 01/17/21 1023Sign by: Nuzhat Grier Name Value Range Interpretation Code Description Data Kassy rce(s) Supporting Document(s) ID Date Data Source [id number] 01/17/2021 06:53:00 AM EDT [facility]. Provider Short NotePatient NoteCalled by RN that [...] rce(s) Supporting Document(s) ID Date Data Source [id number] 01/16/2021 03:24:00 PM EDT [employer] Counselor Progress NotePatient NoteCHUYITA DE JESUS WENT BY TO SEE PATIENT TO SEE HOW SHE WAS DOING AND SHE WASSLEEPING. COUNSELOR TRIED TO WAKE HER UP BUT SHE WOULDN'T. SO COUNSELORLEFT BACK TO HER OFFICE.Dictated on 01/16/21 1524 by Cherrie,TriciaTranscribed on 01/16/21 1524 by Cherrie,TriciaSign by CherrieNuzhat on 01/16/21 1526Sign by: Cherrie,Nuzhat Name Value Range Interpretation Code Description Data Kassy rce(s) Supporting Document(s) ID Date Data Source [id number] 01/16/2021 02:08:00 PM EDT [employer]. Counselor Progress NotePatient NoteCOUNS LIZA WENT BACK [...] 140 by Cherrie,TriciaTranscribed on 01/16/21 1408 by CherrieTriciaSign by CherrieNuzhat on 01/16/21 1413Sign by: Cherrie,Nuzhat Name Value Range Interpretation Code Description Data Kassy rce(s) Supporting Document(s) ID Date Data Source [id number] 01/16/2021 02:04:00 PM EDT [employer]. Counselor Progress NotePatient NoteCOUNS LIZA WENT AND [...] Cherrie,TriciaTranscribed on 01/16/21 1404 by Cherrie,TriciaSign by CherrieNuzhat on 01/16/21 1408Sign by: Cherrie,Nuzhat Name Value Range Interpretation Code Description Data Kassy rce(s) Supporting Document(s) ID Date Data Source [id number] 01/15/2021 04:16:00 PM [facility]T [facility] [employer] Counselor Progress NotePatient [...] rce(s) Supporting Document(s) ID Date Data Source [id number] 01/15/2021 01:59:00 PM EDT [facility] [employer] Counselor Progress NotePatient NoteBETHANIE HUGO [facility], CON[facility] A 4 WEEK WAIT LIST FOR THEIRINPATIENT FACILITY FOR WOMEN.Dictated on 01/15/21 1359 by Ike BlasTranscribed on 01/15/21 1359 by Zach Blas by Ike Blas on 01/15/21 1400Sign by: Ike Blas Name Value Range Interpretation Code Description Data Kassy rce(s) Supporting Document(s) ID Date Data Source [id number] 01/15/2021 01:36:00 PM EDT [facility] [employer] Counselor Progress NotePatient NoteCONFI RMED BED AT [facility] - ADMISSION TIME PENDING.Dictated on 01/15/21 1336 by Ike BlasTranscribed on 01/15/21 1336 by Zach Blas by Ike Blas on 01/15/21 1337Sign by: Ike Blas Name Value Range Interpretation Code Description Data Kassy rce(s) Supporting Document(s) ID Date Data Source [id number] 01/14/2021 03:22:00 PM EDT [employer]. Counselor Progress NotePatient Dominic DE JESUS HAD [...] rce(s) Supporting Document(s) ID Date Data Source [id number] 01/14/2021 03:00:00 PM EDT [employer]. Counselor Progress NotePatient NoteCHUYITA DE JESUS WENT TO SEE IF PATIENT WAS UP TO DO EVALUATION AND SHE WASSLEEPING.Dictated on 01/14/21 1500 by Cherrie,TriciaTranscribed on 01/14/21 1500 by Cherrie,TriciaSign by Cherrie,Nuzhat on 01/14/21 1501Sign by: Cherrie,Nuzhat Name Value Range Interpretation Code Description Data Kassy rce(s) Supporting Document(s) ID Date Data Source [id number] 01/14/2021 01:44:00 PM EDT [employer]. Counselor Progress NotePatient Dominic DE JESUS WENT INTO PATIENTS ROOM AT 12:30 TO DO THE EVALUATION, THEPATIENT WAS SLEEPING SO COUNSELOR HAD LEFT THE PATIENT TO SLEEP.COUNSELOR CAME BACK TO HER OFFICE AND REPORTED PATIENT STATUS TO ALFREDA.NURSING SAFETY DEPOSIT SUPERVISOR, SABINE PECK, WOKE THE PATIENT AND REQUESTED [...] rce(s) Supporting Document(s) ID Date Data Source [id number] 01/14/2021 09:26:00 AM EDT [facility]. Counselor Progress NotePatient NoteCOUNS NADEENOR ALONG WITH IT PORTFOLIO MANAGER WENT INTO PATIENTS ROOM AND ASKED HOW SHE WASDOING. PATIENT RESPONDED SHE WAS DOING OK. COUNSELOR INFORMED PATIENTTHAT SHE WAS HERE IF SHE NEEDED HER TO TALK OR ANYTHING.Dictated on 01/14/21 0926 by Cherrie,TriciaTranscribed on 01/14/21 0926 by Cherrie,TriciaSign by Cherrie,Nuzhat on 01/14/21 0933Sign by: Cherrie,Nuzhat Name Value Range Interpretation Code Description Data Kassy rce(s) Supporting Document(s) ID Date Data Source [id number] 01/13/2021 04:10:00 PM EDT [facility] Name Value Range Interpretation Code Description Data Kassy rce(s) Supporting Document(s) SARS-CoV-2 (COVID-19) RNA [Presence] in Respiratory specimen by IRIS with probe detection Negative; No COVID-2 RNA detected by PCR. [facility] This lab was ordered by [facility] and reported by . ID Date Data Source [id number] 12/08/2020 03:19:00 PM EDT [facility]) Name Value Range Interpretation Code Description Data Kassy rce(s) Supporting Document(s) influenza A amplification negative negative Influenza a Amplification [facility]) influenza B amplification negative negative Influenza B Amplification [facility]) RSV amplification negative negative RSV Amplification [facility] ([facility]) sars covid-19 amplification negative negative Sars Cov id-19 Amplification [place] ([facility]) ID Date Data Source [id number] 12/08/2020 03:19:00 PM EDT [facility] Name Value Range Interpretation Code Description Data Kassy rce(s) Supporting Document(s) SARS coronavirus 2 RNA [Presence] in Res piratory specimen by IRIS with probe detection NEGATIVE [facility] This lab was ordered by [facility] a nd reported by [facility]. ID Date Data Source [id number] 12/08/2020 09:19:00 AM EDT [facility]) Name Value Range Interpretation Code Description Data Kassy rce(s) Supporting Document(s) thyroid stimulating hormone 1.050 uIU/mL 0.358-3.740 Thyroid Stimulating Hormone [facility]) ID Date Data Source [id number] 12/08/2020 09:19:00 AM EDT [facility]) Name Value Range Interpretation Code Description Data Kassy rce(s) Supporting Document(s) acetaminophen level < 2.0 10.0-30.0 Below low normal Acetaminop hen Level [facility]) ID Date Data Source [id number] 12/08/2020 09:19:00 AM EDT [facility]) Name Value Range Interpretation Code Description Data Kassy rce(s) Supporting Document(s) salicylate level 2.7 mg/dL 5.0-30.0 Below low normal Salicylate Le jose [facility]) ID Date Data Source [id number] 12/08/2020 09:19:00 AM EDT [facility]) Name Value Range Interpretation Code Description Data Kassy rce(s) Supporting Document(s) ethyl alcohol (ethanol) < 0.003 0.000-0.010 Ethyl Alcoh ol (Ethanol) [facility]) ID Date Data Source [id number] 12/08/2020 09:19:00 AM EDT [facility]) Name Value Range Interpretation Code Description Data Kassy rce(s) Supporting Document(s) glucose, fasting 93 mg/dL 70-100 Glucose, Fasting AT [facility] ([facility]) blood urea nitrogen 10 mg/dL 7-18 Blood Urea Nitro gen [facility] ([facility]) creatinine for GFR 0.61 mg/dL 0.55-1.30 Creatinine for GF R [place] ([facility]) glomerular filtration rate > 60.0 >60 Glomerula r Filtration Rate [place] ([facility]) sodium level 140 mEq/L 136-145 Sodium Level [facility] ([facility]) chloride level 111 mEq/L 98-107 Above high normal Chloride Level [place] ([facility]) potassium serum 4.1 mEq/L 3.5-5.1 Potassium Serum ATHE NA ([facility]) anion gap 7 mEq/L 8-16 Below low normal Anion Gap [place] ( [facility]) calcium level 9.9 mg/dL 8.5-10.1 Calcium Level [place] ( [facility]) carbon dioxide level 22 mEq/L 21-32 Carbon Dioxide Level [place] ([facility]) ID Date Data Source [id number] 12/08/2020 09:19:00 AM EDT [facility]) Name Value Range Interpretation Code Description Data Kassy rce(s) Supporting Document(s) AST/SGOT 28 U/L 7-37 AST/SGOT [facility] ([facility]) alkaline phosphatase 90 U/L 45-117 Alkaline Phosph atase [place] ([facility]) ALT/SGPT 26 U/L 12-78 ALT/SGPT [place] ([facility]) bilirubin,total 0.3 mg/dL 0.2-1.0 Bilirubin,total [facility] ([facility]) bilirubin,direct < 0.1 0.0-0.2 Bilirubin,direct AT [facility] ([facility]) albumin 3.9 gm/dL 3.2-5.2 Albumin [facility] ([facility]) total protein 8.4 gm/dL 6.4-8.2 Above high normal Total Protein A [facility] ([facility]) albumin/globulin ratio 1.2-2.2 Below low normal Albumin /globulin Ratio [facility] ([facility]) ID Date Data Source [id number] 12/08/2020 09:19:00 AM EDT [place] ([facility]) Name Value Range Interpretation Code Description Data Kassy rce(s) Supporting Document(s) white blood count 9.1 10 4.0-10.0 White Blood Count [facility] ([facility]) red blood count 4.31 10 4.00-5.40 Red Blood Count [facility] ([facility]) hemoglobin 12.8 g/dL 12.0-15.5 Hemoglobin [facility] ([facility]) hematocrit 39.2 % 36.0-47.0 Hematocrit [facility] ([facility]) mean corpuscular volume 91.0 fL 80.0-96.0 Mean Corpusc ular Volume [facility] ([facility]) mean corpuscular hemoglobin 29.7 pg 27.0-33.0 Mean Cor puscular Hemoglobin [facility] ([facility]) mean corpuscular HGB conc 32.7 g/dL 32.0-36.5 Mean Corpu scular HGB Conc [facility] ([facility]) platelet count, automated 276 10 150-450 Platelet C ount, Automated [facility] ([facility]) red cell distribution width 13.7 % 11.5-14.5 Red Cell Distribution Width [facility] ([facility]) nucleated red blood cell % 0.0 % 0-0 Nucleated Red Blood Cell % [facility] ([facility]) ID Date Data Source [id number] 12/08/2020 08:11:00 AM EDT [facility]) Name Value Range Interpretation Code Description Data Kassy rce(s) Supporting Document(s) amphetamines level urine positive negative Above high andrea l Amphetamines Level Urine [facility] ([facility]) barbiturates urine negative negative Barbiturates Urin e [facility] ([facility]) benzodiazepines urine negative negative Benzodiazepine s Urine [facility] ([facility]) cannabinoids urine positive negative Above high normal Cannabinoi ds Urine [facility] ([facility]) cocaine metabolite urine negative negative Cocaine Met abolite Urine [facility] ([facility]) opiates urine negative negative Opiates Urine [facility] ( [facility]) methadone urine negative negative Methadone Urine [facility] NA ([facility]) phencyclidine urine negative negative Phencyclidine Ur ine [facility] ([facility]) ID Date Data Source [id number] 12/07/2020 09:14:00 AM EDT [place] ([facility]) Name Value Range Interpretation Code Description Data Kassy rce(s) Supporting Document(s) istat troponin 0.01 NG/mL 0.00-0.08 Istat Troponin [facility] ([facility]) ID Date Data Source [id number] 12/07/2020 09:12:00 AM EDT [place] ([facility]) Name Value Range Interpretation Code Description Data Kassy rce(s) Supporting Document(s) istat HCT 38.0 % 38.0-51.0 Istat HCT [facility] ([facility]) istat sodium 138 mEq/L 136-145 Istat Sodium [facility] ([facility]) istat glucose 111 mg/dL 70-105 Above high normal Istat Glucose A [facility] ([facility]) istat Ca++ 4.7 mg/dL 4.5-5.3 Istat Ca++ [facility] ([facility]) istat potassium 3.9 mEq/L 3.5-5.1 Istat Potassium [facility] ([facility]) istat CO2 23.0 mm/L 23.0-27.0 Istat CO2 [facility] ([facility]) istat chloride 105 mEq/L 98-109 Istat Chloride [facility] ([facility]) istat BUN 9 mg/dL 8-26 Istat BUN [facility] ([facility]) istat creatinine 0.6 mg/dL 0.6-1.[address] [facility] ([facility]) ID Date Data Source [id number] 12/01/2020 03:02:00 AM EDT [facility] Name Value Range Interpretation Code Description Data Kassy rce(s) Supporting Document(s) SARS coronavirus 2 RNA [Presence] in Res piratory specimen by [facility] with probe detection NEGATIVE [facility] This lab was ordered by [facility] a nd reported by [facility]. ID Date Data Source [id number] 09/15/2020 03:35:50 PM EST [facility] ([facility]) Name Value Range Interpretation Code Description Data Kassy rce(s) Supporting Document(s) Color: yellow; Glucose: nega tive; Blood: small; pH: 6.0; Protein: small; Nitrite: positive; Leukocytes: moderate Abnormal (appl ies to non-numeric results) Urine Dipstick [facility] ([facility]) ID Date Data Source [id number] 09/15/2020 03:35:12 PM EST [facility] ([facility]) Name Value Range Interpretation Code Description Data Kassy rce(s) Supporting Document(s) NegativeLot: [id number]: 03/31/2022 High Sensitivity Urine Test [facility] ([facility]) ID Date Data Source [id number] 06/02/2020 02:08:00 PM EST [facility]) Name Value Range Interpretation Code Description Data Kassy rce(s) Supporting Document(s) alkaline phosphatase 75 U/L 45-117 Alkaline Phosph atase [facility]) ALT/SGPT 74 U/L 12-78 ALT/SGPT [place] ([facility]) AST/SGOT 58 U/L 7-37 Above high normal AST/SGOT [facility] ([facility]) total protein 7.7 gm/dL 6.4-8.2 Total Protein [facility] ( [facility]) bilirubin,total 0.4 mg/dL 0.2-1.0 Bilirubin,total [facility] ([facility]) bilirubin,direct 0.1 mg/dL 0.0-0.2 Bilirubin,direct AT [facility] ([facility]) albumin/globulin ratio 1.2-2.2 Below low normal Albumin /globulin Ratio [facility] ([facility]) albumin 3.7 gm/dL 3.2-5.2 Albumin [facility] ([facility]) ID Date Data Source [id number] 06/02/2020 02:08:00 PM EST [facility] ([facility]) Name Value Range Interpretation Code Description Data Kassy rce(s) Supporting Document(s) amphetamines level urine positive negative Above high andrea l Amphetamines Level Urine [facility] ([facility]) benzodiazepines urine negative negative Benzodiazepine s Urine [facility] ([facility]) barbiturates urine negative negative Barbiturates Urin e [facility] ([facility]) cannabinoids urine positive negative Above high normal Cannabinoi ds Urine [facility] ([facility]) cocaine metabolite urine negative negative Cocaine Met abolite Urine [facility] ([facility]) methadone urine positive negative Above high normal Methadone Uri ne [facility] ([facility]) phencyclidine urine negative negative Phencyclidine Ur ine [facility] ([facility]) opiates urine positive negative Above high normal Opiates Urine A [facility] ([facility]) ID Date Data Source [id number] 06/02/2020 02:08:00 PM EST [facility] ([facility]) Name Value Range Interpretation Code Description Data Kassy rce(s) Supporting Document(s) white blood count 5.8 10 4.0-10.0 White Blood Count [facility] ([facility]) red blood count 3.95 10 4.00-5.40 Below low normal Red Blood Coun t [facility] ([facility]) hemoglobin 12.2 g/dL 12.0-15.5 Hemoglobin [facility] ([facility]) mean corpuscular volume 94.2 fL 80.0-96.0 Mean Corpusc ular Volume [facility] ([facility]) hematocrit 37.2 % 36.0-47.0 Hematocrit [facility] ([facility]) mean corpuscular hemoglobin 30.9 pg 27.0-33.0 Mean Cor puscular Hemoglobin [facility] ([facility]) mean corpuscular HGB conc 32.8 g/dL 32.0-36.5 Mean Corpu scular HGB Conc [facility] ([facility]) red cell distribution width 12.8 % 11.5-14.5 Red Cell Distribution Width [place] ([facility]) nucleated red blood cell % 0.0 % 0-0 Nucleated Red Blood Cell % [facility] ([facility]) platelet count, automated 195 10 150-450 Platelet C ount, Automated [facility] ([facility]) ID Date Data Source [id number] 06/02/2020 02:08:00 PM EST [place] ([facility]) Name Value Range Interpretation Code Description Data Kassy rce(s) Supporting Document(s) HCG, serum qualitative negative negative HCG, Serum Qu alitative [facility] ([facility]) ID Date Data Source [id number] 06/02/2020 02:08:00 PM EST [facility] ([facility]) Name Value Range Interpretation Code Description Data Kassy rce(s) Supporting Document(s) thyroid stimulating hormone 1.690 uIU/mL 0.358-3.740 Thyroid Stimulating Hormone [place] ([facility]) ID Date Data Source [id number] 06/02/2020 02:08:00 PM EST [facility] ([facility]) Name Value Range Interpretation Code Description Data Kassy rce(s) Supporting Document(s) acetaminophen level < 2.0 10.0-30.0 Below low normal Acetaminop hen Level [place] ([facility]) ID Date Data Source [id number] 06/02/2020 02:08:00 PM EST [facility] ([facility]) Name Value Range Interpretation Code Description Data Kassy rce(s) Supporting Document(s) salicylate level < 1.7 5.0-30.0 Below low normal Salicylate Le jose [facility] ([facility]) ID Date Data Source [id number] 06/02/2020 02:08:00 PM EST [facility] ([facility]) Name Value Range Interpretation Code Description Data Kassy rce(s) Supporting Document(s) ethyl alcohol (ethanol) < 0.003 0.000-0.010 Ethyl Alcoh ol (Ethanol) [place] ([facility]) ID Date Data Source [id number] 06/02/2020 02:08:00 PM EST [facility] ([facility]) Name Value Range Interpretation Code Description Data Kassy rce(s) Supporting Document(s) creatinine for GFR 0.71 mg/dL 0.55-1.30 Creatinine for GF R [place] ([facility]) blood urea nitrogen 7 mg/dL 7-18 Blood Urea Nitro gen [place] ([facility]) glucose, fasting 82 mg/dL 70-100 [facility] glomerular filtration rate > 60.0 >60 Glomerula r Filtration Rate [place] ([facility]) sodium level 139 mEq/L 136-145 Sodium Level [place] ([facility]) potassium serum 3.6 mEq/L 3.5-5.1 Potassium Serum [facility] ([facility]) anion gap 6 mEq/L 8-16 Below low normal Anion Gap [place] ( [facility]) carbon dioxide level 24 mEq/L 21-32 Carbon Dioxide Level [place] ([facility]) chloride level 109 mEq/L 98-107 Above high normal Chloride Level [place] ([facility]) calcium level 8.8 mg/dL 8.5-10.1 Calcium Level [facility] ( [facility]) ID Date Data Source [id number] 06/01/2020 01:01:00 PM EST [facility] ([facility]) Name Value Range Interpretation Code Description Data Kassy rce(s) Supporting Document(s) amphetamines level urine positive negative Above high andrea l Amphetamines Level Urine [facility] ([facility]) cocaine metabolite urine positive negative Above high andrea l Cocaine Metabolite Urine [facility] ([facility]) cannabinoids urine positive negative Above high normal Cannabinoi ds Urine [facility] ([facility]) benzodiazepines urine negative negative Benzodiazepine s Urine [facility] ([facility]) barbiturates urine negative negative Barbiturates Urin e [facility] ([facility]) phencyclidine urine negative negative Phencyclidine Ur ine [facility] ([facility]) methadone urine positive negative Above high normal Methadone Uri ne [facility] ([facility]) opiates urine positive negative Above high normal Opiates Urine A [facility] ([facility]) ID Date Data Source [id number] 06/01/2020 01:01:00 PM EST [facility] ([facility]) Name Value Range Interpretation Code Description Data Kassy rce(s) Supporting Document(s) HCG, serum qualitative negative negative HCG, Serum Qu alitative [facility] ([facility]) ID Date Data Source [id number] 06/01/2020 01:01:00 PM EST [facility] ([facility]) Name Value Range Interpretation Code Description Data Kassy rce(s) Supporting Document(s) thyroid stimulating hormone 4.060 uIU/mL 0.358-3.740 Above high no rmal Thyroid Stimulating Hormone [facility] ([facility]) ID Date Data Source [id number] 06/01/2020 01:01:00 PM EST [facility] ([facility]) Name Value Range Interpretation Code Description Data Kassy rce(s) Supporting Document(s) acetaminophen level < 2.0 10.0-30.0 Below low normal Acetaminop hen Level [place] ([facility]) ID Date Data Source [id number] 06/01/2020 01:01:00 PM EST [facility] ([facility]) Name Value Range Interpretation Code Description Data Kassy rce(s) Supporting Document(s) salicylate level < 1.7 5.0-30.0 Below low normal Salicylate Le jose [facility] ([facility]) ID Date Data Source [id number] 06/01/2020 01:01:00 PM EST [place] ([facility]) Name Value Range Interpretation Code Description Data Kassy rce(s) Supporting Document(s) ethyl alcohol (ethanol) < 0.003 0.000-0.010 Ethyl Alcoh ol (Ethanol) [place] ([facility]) ID Date Data Source [id number] 06/01/2020 01:01:00 PM EST [place] ([facility]) Name Value Range Interpretation Code Description Data Kassy rce(s) Supporting Document(s) glucose, fasting 129 mg/dL 70-100 Above high normal Glucose, Fas ting [place] ([facility]) blood urea nitrogen 12 mg/dL 7-18 Blood Urea Nitro gen [place] ([facility]) creatinine for GFR 0.83 mg/dL 0.55-1.30 Creatinine for GF R [facility] ([facility]) sodium level 136 mEq/L 136-145 Sodium Level [facility] ([facility]) glomerular filtration rate > 60.0 >60 Glomerula r Filtration Rate [place] ([facility]) potassium serum 3.6 mEq/L 3.5-5.1 Potassium Serum [facility] ([facility]) chloride level 103 mEq/L 98-107 Chloride Level [place] ([facility]) carbon dioxide level 23 mEq/L 21-32 Carbon Dioxide Level [place] ([facility]) anion gap 10 mEq/L 8-16 Anion Gap [facility] ([facility]) calcium level 8.8 mg/dL 8.5-10.1 Calcium Level [facility] ( [facility]) ID Date Data Source [id number] 06/01/2020 01:01:00 PM EST [facility] ([facility]) Name Value Range Interpretation Code Description Data Kassy rce(s) Supporting Document(s) AST/SGOT 61 U/L 7-37 Above high normal AST/SGOT [facility] ([facility]) ALT/SGPT 89 U/L 12-78 Above high normal ALT/SGPT [facility] ([facility]) alkaline phosphatase 80 U/L 45-117 Alkaline Phosph atase [facility] ([facility]) bilirubin,total 0.3 mg/dL 0.2-1.0 Bilirubin,total [facility] ([facility]) total protein 8.4 gm/dL 6.4-8.2 Above high normal Total Protein A [facility] ([facility]) bilirubin,direct 0.1 mg/dL 0.0-0.2 Bilirubin,direct AT [facility]) albumin/globulin ratio 1.2-2.2 Below low normal Albumin /globulin Ratio [facility] ([facility]) albumin 4.2 gm/dL 3.2-5.2 Albumin [facility] ([facility]) ID Date Data Source [id number] 06/01/2020 01:01:00 PM EST [facility] ([facility]) Name Value Range Interpretation Code Description Data Kassy rce(s) Supporting Document(s) white blood count 5.6 10 4.0-10.0 White Blood Count SUSI ([facility]) red blood count 4.07 10 4.00-5.40 Red Blood Count ATHE NA ([facility]) hemoglobin 12.4 g/dL 12.0-15.5 Hemoglobin SUSI ([facility]) hematocrit 37.8 % 36.0-47.0 Hematocrit SUSI ([facility]) mean corpuscular hemoglobin 30.5 pg 27.0-33.0 Mean Cor puscular Hemoglobin SUSI ([facility]) mean corpuscular HGB conc 32.8 g/dL 32.0-36.5 Mean Corpu scular HGB Conc [place] ([facility]) mean corpuscular volume 92.9 fL 80.0-96.0 Mean Corpusc ular Volume SUSI ([facility]) neutrophils % 39.6 % 36.0-66.0 Neutrophils % [place] ( [facility]) red cell distribution width 12.8 % 11.5-14.5 Red Cell Distribution Width SUSI ([facility]) platelet count, automated 205 10 150-450 Platelet C ount, Automated SUSI ([facility]) mono % 8.0 % 0.0-5.0 Above high normal [place] % [place] ([facility]) lymph % 48.6 % 24.0-44.0 Above high normal Lymph % [place] ([facility]) baso % 0.9 % 0.0-1.0 Baso % [place] ([facility]) eos % 2.7 % 0.0-3.0 Eos % [place] ([facility]) immature granulocyte % 0.2 % 0-3.0 Immature Gran ulocyte % [place] ([facility]) nucleated red blood cell % 0.0 % 0-0 Nucleated Red Blood Cell % [place] ([facility]) neutrophils # 2.2 10 1.5-8.5 Neutrophils # [place] ( [facility]) lymph # 2.7 10 1.5-5.0 Lymph # [facility] ([facility]) mono # 0.5 10 0.0-0.8 [place] # SUSI ([facility]) eos # 0.2 10 0.0-0.5 Eos # [facility]I ([facility]) baso # 0.1 10 0.0-0.2 Baso # [facility]I ([facility]) ID Date Data Source [id number] 05/07/2020 09:44:00 AM EDT [facility] Name Value Range Interpretation Code Description Data Kassy rce(s) Supporting Document(s) Free T4 (Free Thyroxine) 0.76-1.46 Normal (applies to non -numeric results) [facility] ID Date Data Source [id number] 05/07/2020 09:44:00 AM EDT [facility] Name Value Range Interpretation Code Description Data Kassy rce(s) Supporting Document(s) Thyroid Stimulate Hormone TSH 0.358-3.740 Above high andrea l [facility] ID Date Data Source [id number] 04/30/2020 01:37:[address] [facility] Name: CELY SIMS [facility] Rec #: [id number] 14 : 1985 Age/Sex: 34F Date of Service: 04/30/20 DISPOSITION SUMMARY Discharge Summary [facility] Name:Cely Sims Emergency Department Age:34 yrs [...] Discharge Instruction: Discharge Summary Sheet, Constipation, Adult, [id number], Medication Reconciliation Name Value Range Interpretation Code Description Data Kassy rce(s) Supporting Document(s) ID Date Data Source [id number] 04/30/2020 01:37:00 PM EDT [facility] Name: CELY SIMS [facility] Rec #: [id number] 14 : 1985 Age/Sex: 34F Date of Service: 04/30/20 PHYSICIAN CHART Physician Documentation [facility] Name: Cely Sims Age: 34 yrs [...] fevers, headaches, chest pain, shortness of breath.. [employer]: 13:57 LMP N/A - Irregular menses tp1 [...] to communication noted, The patient speaks fluent Palestinian. ROS: 14:40 Constitutional: Negative for fever, chills, [...] 14:27 Order name: Lipase; Complete Time: 15:22 [facility] 04/30 15:54 Interpretation: LIP 85. w04/30 14:27 Order name: UA.; Complete Time: 15:19 [facility] 04/30 15:02 Interpretation: Ur Color Yellow; Ur Clarity Clear; Ur Leuk zrw1 Est 2+ Mod; Ur Nitrite Negative. 04/30 14:39 Order name: POC Urine HCG for ED; Complete Time: 15:19 dk2 04/30 15:54 Interpretation: POC ED Ur HCG NEGATIVE. [facility] 04/30 14:27 Order name: Ct Abdomen & Pelvis with Con [facility] 04/30 14:27 Order name: Collect Urine - Clean Catch; Complete Time: 14:33 04/30 14:58 Order name: Urinalysis Auto w/Microscopy [facility] 04/30 14:58 Order name: Urine Culture [facility] 04/30 15:02 Order name: Emergency Room EKG Order - Use EKG Work-Up w /Quick Select; Complete Time: 15:28 04/30 15:02 Order name: Cardiology EKG Interpretation - Choose Reason [facility] for Test 04/30 14:27 Order name: Iv Saline Lock; Complete Time: 14:44 [facility] 04/30 14:27 Order name: NPO; Complete Time: 14:34 [facility] 04/30 14:27 Order name: POC - Collect [...] Discharge Summary Sheet zrw1 - Constipation, Adult, Rkei-vc-Hcbv zrw1 Forms: - Medication Reconciliation zrw1 Prescriptions: [...] rce(s) Supporting Document(s) ID Date Data Source [id number] 04/30/2020 01:37:00 PM EDT [facility] Name: CELY SIMS [facility] Rec #: [id number] 14 : 1985 Age/Sex: 34F Date of Service: 04/30/20 NURSE CHART Nurse's Notes [facility] Name: Cely Sims Age: 34 yrs Sex: Female : 1985 Arrival Date: 04/30/2020 Time: 13:37 Bed 8 Private MD: Rehab, Provider Diagnosis: Abdominal Pain, Unspecified;Constipation, unspecified Presentation: 04/30 13:38 Acuity: Urgent - 3 awr 13:56 Transition of care: patient was not received from another [facility] setting of care. Presenting complaint: Patient states - She has not had a BM in the last two days despite using suppositories.. Pt is currently at our rehab facility. Have you travelled in the last 30 days? Yes, Where have you travelled? From [place]. . Have you had contact with an [...] Abdomen is distended, The patient reports constipation. [employer]: 13:57 LMP N/A - Irregular menses tp1 [...] to communication noted, The patient speaks fluent Palestinian. Screenin:06 AUDIT 1. How often do you [...] on for positive identification. 14:07 Maira Nunez, RN is Primary Nurse. tp1 14:08 Eder [...] 1000ml. dk2 Outcome: 16:18 Discharge ordered by MD. [email or web address] 16:35 Patient verbalized understanding of disposition sj [...] Signatures: Surekha Carvajal, RN RN sj Ori Carlson RN RN tp1 Maira Nunez RN RN dk2 Jesse Hernandez RN RN Yoli Rosado NA NA jmg Willis, Zachary, PA PA zrw1 Antonina Ivey Name Value Range Interpretation Code Description Data Kassy rce(s) Supporting Document(s) ID Date Data Source [id number] 05/01/2020 09:27:00 AM EDT [facility] Name: CELY SIMS : 1985 A ge/Sex: 34F Ordering Provider: LEA White Med Rec #: [id number] Reg Status:[facility] ER Room #: Date of Service: 04/30/20 Report Number: [id number] cc: PCP None; LEA White Send Report To: Reason for exam: ABDOMINAL PAIN SINUS RHYTHM POSSIBLE RIGHT VENTRICULAR CONDUCTION DELAY BORDERLINE ECG Compared to 04/18/2020 there is no significant change Physician Investigations Manager: Serafin Daugherty M.D. ECG HEART RATE: [...] 05/01/20927 Reported By: Serafin Daugherty MD, [facility] <<Signature on File>> Exam Date/Time: 04/30/20 1523 Order #: [id number] Dictation Date/Time: 05/01/20926 Transcribed Date/Time: 05/01/20926 Metalizer: LETICIA Name Value Range Interpretation Code Description Data Kassy rce(s) Supporting Document(s) ID Date Data Source [id number] 05/02/2020 10:45:00 AM EDT [facility] Name Value Range Interpretation Code Description Data Kassy rce(s) Supporting Document(s) Urine Culture Normal (applies to non-numeric re sults) [facility] ID Date Data Source [id number] 04/30/2020 03:21:00 PM EDT [facility] Name Value Range Interpretation Code Description Data Kassy rce(s) Supporting Document(s) Sodium 142 mmol/L 137-145 Normal (applies to non-numeric resul ts) [facility] Potassium 3.5-5.1 Normal (applies to non-numeric resul ts) [facility] Chloride 113 mmol/L 98-112 Above high normal [facility] Carbon Dioxide CO2 22.0-33.0 Normal (applies to [...] SGOT(AST) 37 U/L 14-36 Above high normal [facility] SGPT(ALT) 37 U/L 9-52 Normal [facility] ID Date Data Source [id number] 04/30/2020 03:21:00 PM EDT [facility] Name Value Range Interpretation Code Description Data Kassy rce(s) Supporting Document(s) C-Reactive Protein,Wide Range <3.00 Normal (applies t o non-numeric results) [facility] ID Date Data Source [id number] 04/30/2020 03:21:00 PM EDT [facility] Name Value Range Interpretation Code Description Data Kassy rce(s) Supporting Document(s) Lipase 85 U/L 73-393 Normal (applies to non-numeric resul ts) [facility] ID Date Data Source [id number] 04/30/2020 03:07:00 PM EDT [facility] Name Value Range Interpretation Code Description Data [...] Lymphocytes # (AUTO) 1.0-3.1 Above high normal [facility] Monocytes # (AUTO) 0.2-1.3 Normal (applies to non-numer ic results) [facility] Eosinophils# (AUTO) 0.0-0.5 Normal (applies to non-nume claudia results) [facility] Basophils # (AUTO) 0.0-0.1 Normal (applies to non-numer ic results) [facility] ID Date Data Source [id number] 04/30/2020 03:15:00 PM EDT [facility] Control Line Present? YPerformed by: Jewels Valles HCG Screen Result: NEGATIVE Name Value Range Interpretation Code Description Data Kassy rce(s) Supporting Document(s) POC ED Urine HCG NEGATIVE Normal (applies to non-numeric results) [facility] ID Date Data Source [id number] 04/30/2020 03:10:00 PM EDT [facility] Name Value Range Interpretation Code Description Data Kassy rce(s) Supporting Document(s) Color,Urine Yellow Normal (applies to non-numeric resu lts) [facility] Clarity,Urine Clear Normal (applies to non-numeric re sults) [facility] Specific [place],Urine 1.001-1.030 Normal (applies to non- numeric results) [...] [facility] Leukocyte Esterase,Urine Negative [facility] Nitrite,Urine Negative Normal (applies to non-numeric re sults) [facility] ID Date Data Source [id number] 04/30/2020 03:10:00 PM EDT [facility] Name Value Range Interpretation Code Description Data Kassy rce(s) Supporting Document(s) WBC,URINE 0-10 [facility],Urine 0-2 Normal (applies to non-numeric resul ts) [facility] Hyaline Casts,Ur None Seen Normal (applies to non-numeric results) [facility] Bacteria,Urine None Seen Bhagat [facility] Epithelial Cell,Ur None-Few Bhagat [facility] ID Date Data Source [id number] 05/01/2020 06:14:00 AM EDT [facility] Name: CELY SIMS : 1985 A ge/Sex: 34F Ordering Provider: LEA White Med Rec #: [id number] Reg Status: [facility] ER Room #: Date of Service: 04/30/20 Report Number: [id number] cc:PCP None Send Report To: [id number] CT/CT Abdomen & Pelvis w Con Reason [...] Date/Time: 04/30/20 1541 Transcribed Date/Time: 05/01/20 0614 Metalizer: CHEL Name Value Range Interpretation Code Description Data Kassy rce(s) Supporting Document(s) ID Date Data Source [id number] 04/23/2020 09:55:00 AM EDT [facility] Name Value Range Interpretation Code Description Data Kassy rce(s) Supporting Document(s) Free T4 (Free Thyroxine) 0.76-1.46 Normal (applies to non -numeric results) [facility] ID Date Data Source [id number] 04/23/2020 09:55:00 AM EDT [facility] Name Value Range Interpretation Code Description Data Kassy rce(s) Supporting Document(s) Thyroid Stimulate Hormone TSH 0.358-3.740 Above high andrea l [facility] Procedure Social History Code Duration Value Status Description Data Source(s ) Smoking 04/14/2021 12:00:00 AM EDT Smoker, current status unkn own completed Smoker, current status unknown [facility] ([facility]) 09/15/2020 12:00:00 AM EST Heavy cigarette smoker (20- 39 cigs/day) completed Heavy cigarette smoker (20-39 cigs/day) [facility] ([facility]) Vital Signs ID Date Data Source UNK Name Value Range Interpretation Code Description Data Source(s) Diastolic blood pressure 73 mm[Hg] 73 mm[Hg] SUSI ([facility]) Systolic blood pressure 104 mm[Hg] 104 mm[Hg] A THENA ([facility]) Body weight 1920 [oz_av] 1920 [oz_av] SUSI ([facility]) Body height 154.94 cm 154.94 cm [facility] Body weight 59.239 kg 59.239 kg [facility] ([facility]) Systolic blood pressure 120 mm[Hg] 120 mm[Hg] N [facility] ([facility]) Diastolic blood pressure 77 mm[Hg] 77 mm[Hg] [facility] ([facility]) Body mass index (BMI) [Ratio] 24.68 kg/m2 24.68 kg/m2 [facility] ([facility]) Body height 154.94 cm 154.94 cm [facility] ([facility] 58.967 [facility] Body mass index (BMI) [Ratio] 24.56 kg/m2 24.56 [facility]m2 [facility] ID Date Data Source [id number] 02/23/2021 10:02:00 AM EDT [facility] Name Value Range Interpretation Code Description Data Source(s) Weight (Calculated Kilograms) 55.34 55.34 [facility] Height (Calculated Centimeters) 154.94 154. 94 [facility] Body Mass Index (BMI) 23.0 23.0 Health system ID Date Data Source [id number] 03/09/2021 03:19:00 PM EDT [facility] Name Value Range Interpretation Code Description Data Source(s) Weight Measurement Method 1 1 [facility] Weight (Calculated Kilograms) 55.34 55.34 [facility] Weight 2144 2144 [facility] Temperature Source 7 7 [facility] Temperature 96.4 96.4 [facility] Respiratory Effort 1 1 [facility] Respiratory Rate 16 16 [facility] Pulse Assessment Method 4 4 [facility] Pulse Rate 117 117 [facility] Height (Calculated Centimeters) 154.94 154. 94 [facility] Height 61 61 [facility] Blood Pressure 110/70 110/70 [facility] Body Mass Index (BMI) 23.0 23.0 Health system Weight Measurement Method 1 1 [facility] Weight (Calculated Kilograms) 55.34 55.34 [facility] Weight 2144 2144 [facility] Temperature Source 7 7 [facility] Temperature 96.4 96.4 [facility] Respiratory Effort 1 1 [facility] Respiratory Rate 16 16 [facility] Pulse Assessment Method 4 4 [facility] Pulse Rate 117 117 [facility] Height (Calculated Centimeters) 154.94 154. 94 [facility] Height 61 61 [facility] Blood Pressure 110/70 110/70 [facility] Body Mass Index (BMI) 23.0 23.0 Health system Weight Measurement Method 1 1 [facility] Weight (Calculated Kilograms) 55.34 55.34 [facility] Weight 2144 2144 [facility] Temperature Source 7 7 [facility] Temperature 96.4 96.4 [facility] Respiratory Effort 1 1 [facility] Respiratory Rate 16 16 [facility] Pulse Assessment Method 4 4 [facility] Pulse Rate 117 117 [facility] Height (Calculated Centimeters) 154.94 154. 94 [facility] Height 61 61 [facility] Blood Pressure 110/70 110/70 [facility] Body Mass Index (BMI) 23.0 23.0 Health system Weight Measurement Method 1 1 [facility] Weight (Calculated Kilograms) 55.34 55.34 [facility] Weight 1983 1983 [facility] Temperature Source 7 7 [facility] Temperature 97.3 97.3 [facility] Respiratory Effort 1 1 [facility] Respiratory Rate 14 14 [facility] Pulse Assessment Method 4 4 [facility] Pulse Rate 69 69 [facility] Height (Calculated Centimeters) 154.94 154. 94 [facility] Height 61 61 [facility] Blood Pressure 112/79 112/79 [facility] Body Mass Index (BMI) 23.0 23.0 Health system Weight Measurement Method 1 1 [facility] Weight (Calculated Kilograms) 55.34 55.34 [facility] Weight 1983 1983 [facility] Temperature Source 7 7 [facility] Temperature 97.1 97.1 [facility] Respiratory Effort 1 1 [facility] Respiratory Rate 16 16 [facility] Pulse Assessment Method 4 4 [facility] Pulse Rate 74 74 [facility] Height (Calculated Centimeters) 154.94 154. 94 [facility] Height 61 61 [facility] Blood Pressure 110/74 110/74 [facility] Body Mass Index (BMI) 23.0 23.0 Health system Weight (Calculated Kilograms) 56.25 56.25 [facility] Height (Calculated Centimeters) 154.94 154. 94 [facility] Body Mass Index (BMI) 23.4 23.4 Health system ID Date Data Source [id number] 05/07/2020 09:12:00 AM EDT [facility] Name Value Range Interpretation Code Description Data Source(s) Weight (Calculated Kilograms) 56.25 56.25 [facility] Height (Calculated Centimeters) 154.94 154. 94 [facility] Body Mass Index (BMI) 23.4 23.4 Health system Weight (Calculated Kilograms) 56.25 56.25 [facility] Height (Calculated Centimeters) 154.94 154. 94 [facility] Body Mass Index (BMI) 23.4 23.4 Health system Weight (Calculated Kilograms) 56.25 56.25 [facility] Height (Calculated Centimeters) 154.94 154. 94 [facility] Body Mass Index (BMI) 23.4 23.4 Health system Weight (Calculated Kilograms) 56.25 56.25 [facility] Height (Calculated Centimeters) 154.94 154. 94 [facility] Body Mass Index (BMI) 23.4 23.4 Health system ID Date Data Source [id number] 05/19/2020 05:30:00 AM EDT [facility] Name Value Range Interpretation Code Description Data Source(s) Weight Measurement Method 1 1 [facility] Weight (Calculated Kilograms) 56.25 56.25 [facility] Weight 2063 2063 [facility] Temperature Source 7 7 [facility] Temperature 97.5 97.5 [facility] Respiratory Effort 1 1 [facility] Respiratory Rate 15 15 [facility] Pulse Assessment Method 4 4 [facility] Pulse Rate 83 83 [facility] Height (Calculated Centimeters) 154.94 154. 94 [facility] Height 61 61 [facility] Blood Pressure 109/75 109/75 [facility] Body Mass Index (BMI) 23.4 23.4 Health system Weight Measurement Method 1 1 [facility] Weight (Calculated Kilograms) 56.25 56.25 [facility] Weight 2063 2063 [facility] Temperature Source 7 7 [facility] Temperature 97.5 97.5 [facility] Respiratory Effort 1 1 [facility] Respiratory Rate 15 15 [facility] Pulse Assessment Method 4 4 [facility] Pulse Rate 83 83 [facility] Height (Calculated Centimeters) 154.94 154. 94 [facility] Height 61 61 [facility] Blood Pressure 109/75 109/75 [facility] Body Mass Index (BMI) 23.4 23.4 Health system Weight Measurement Method 1 1 [facility] Weight (Calculated Kilograms) 56.25 56.25 [facility] Weight 2063 2063 [facility] Temperature Source 7 7 [facility] Temperature 97.5 97.5 [facility] Respiratory Effort 1 1 [facility] Respiratory Rate 15 15 [facility] Pulse Assessment Method 4 4 [facility] Pulse Rate 83 83 [facility] Height (Calculated Centimeters) 154.94 154. 94 [facility] Height 61 61 [facility] Blood Pressure 109/75 109/75 [facility] Body Mass Index (BMI) 23.4 23.4 Health system Weight Measurement Method 1 1 [facility] Weight (Calculated Kilograms) 56.25 56.25 [facility] Weight 2063 2063 [facility] Temperature Source 7 7 [facility] Temperature 97.5 97.5 [facility] Respiratory Effort 1 1 [facility] Respiratory Rate 15 15 [facility] Pulse Assessment Method 4 4 [facility] Pulse Rate 83 83 [facility] Height (Calculated Centimeters) 154.94 154. 94 [facility] Height 61 61 [facility] Blood Pressure 109/75 109/75 [facility] Body Mass Index (BMI) 23.4 23.4 Health system Weight Measurement Method 1 1 [facility] Weight (Calculated Kilograms) 56.25 56.25 [facility] Weight 1983 1983 [facility] Temperature Source 7 7 [facility] Temperature 96.9 96.9 [facility] Respiratory Effort 1 1 [facility] Respiratory Rate 15 15 [facility] Pulse Assessment Method 4 4 [facility] Pulse Rate 90 90 [facility] Height (Calculated Centimeters) 154.94 154. 94 [facility] Height 61 61 [facility] Blood Pressure 104/67 104/67 [facility] Body Mass Index (BMI) 23.4 23.4 Health system Weight Measurement Method 1 1 [facility] Weight (Calculated Kilograms) 56.25 56.25 [facility] Weight 1983 1983 [facility] Temperature Source 7 7 [facility] Temperature 97.8 97.8 [facility] Respiratory Effort 1 1 [facility] Respiratory Rate 17 17 [facility] Pulse Assessment Method 4 4 [facility] Pulse Rate 93 93 [facility] Height (Calculated Centimeters) 154.94 154. 94 [facility] Height 61 61 [facility] Blood Pressure 110/87 110/87 [facility] Body Mass Index (BMI) 23.4 23.4 Health system Weight (Calculated Kilograms) 72.12 72.12 [facility] Height (Calculated Centimeters) 154.94 154. 94 [facility] Body Mass Index (BMI) 30.0 30.0 Health system Patient Treatment Plan of Care Planned Activity [...] 100 MG Oral Tablet 01/18/2021 12:00:00 AM EDT [facility] Docusate Sodium 100 MG Oral Capsule [Colace] 01/18/2021 12:00:[address] [facility] Buprenorphine 8 MG / Naloxone 2 MG Oral Strip [Suboxon e] 01/18/2021 12:00:00 AM EDT [facility] . Metronidazole 500 MG Oral Tablet 09/22/2020 12:00:00 AM EST [facility] ([facility]) 168 HR Ethinyl Estradiol 0.74416 MG/HR / norelgestromin 0.80186 MG/HR Transdermal Patch [Xulane] 03/03/2020 12:00:00 AM EDT [facility] ([facility]) Trazodone Hydrochloride 100 MG Oral Tablet SUSI ([facility]) topiramate 50 MG Oral Tablet [facility]I ([facility]) topiramate 25 MG Oral Tablet [facility]I ([facility]) Sulfamethoxazole 800 MG / Trimethoprim 160 MG Oral Tablet [facility]I ([facility]) Sertraline 50 MG Oral Tablet [facility]I ([facility]) Sertraline 25 MG Oral Tablet [facility]I ([facility]) Sertraline 100 MG Oral Tablet [facility] ([facility]) Risperidone 3 MG Oral Tablet [facility]I ([facility]) Risperidone 2 MG Oral Tablet SUSI ([facility]) Prazosin 2 MG Oral Capsule A THENA ([facility]) Prazosin 1 MG Oral Capsule A THENA ([facility]) 24 HR paliperidone 6 MG Extended Release Oral Tablet SUSI ([facility]) 24 HR paliperidone 3 MG Extended Release Oral Tablet SUSI ([facility]) 24 HR Oxybutynin chloride 5 MG Extended Release Oral Tablet SUSI ([facility]) 24 HR Oxybutynin chloride 10 MG Extended Release Oral Tablet SUSI ([facility]) olanzapine 5 MG Oral Tablet SUSI ([facility]) olanzapine 5 MG Disintegrating Oral Tablet SUSI ([facility]) benztropine mesylate 1 MG Oral Tablet SUSI ([facility]) atomoxetine 40 MG Oral Capsule SUSI ([facility]) atomoxetine 10 MG Oral Capsule SUSI ([facility]) aripiprazole 2 MG Oral Tablet SUSI ([facility]) Amitriptyline Hydrochloride 25 MG Oral Tablet SUSI ([facility]) Sertraline 50 MG Oral Tablet [Zoloft] [facility]. Risperidone 3 MG Oral Tablet [Risperdal] [facility]. Prazosin 2 MG Oral Capsule [Minipress] [facility]. olanzapine 15 MG Oral Tablet [facility]. Mirtazapine 15 MG Oral Tablet [facility] gabapentin 600 MG Oral Tablet [facility]. Docusate Sodium 100 MG Oral Capsule [Colace] [facility]. Buprenorphine 8 MG / Naloxone 2 MG Oral Strip [Suboxone] [facility]. topiramate 50 MG Oral Tablet [Topamax] [facility] ([facility]) olanzapine 10 MG Oral Tablet SUSI ([facility]) Naproxen 500 MG Oral Tablet [facility]USI ([facility]) Mirtazapine 15 MG Oral Tablet SUSI ([facility]) Metronidazole 500 MG Oral Tablet SUSI ([facility]) Loratadine 10 MG Oral Tablet SUSI ([facility]) Levothyroxine Sodium 0.05 MG Oral Tablet SUSI ([facility]) Hydroxyzine Hydrochloride 50 MG Oral Tablet SUSI ([facility]) Hydroxyzine Hydrochloride 25 MG Oral Tablet SUSI ([facility]) Haloperidol 2 MG Oral Tablet SUSI ([facility]) Haloperidol 10 MG Oral Tablet SUSI ([facility]) gabapentin 400 MG Oral Capsule SSUI ([facility]) gabapentin 300 MG Oral Capsule SUSI ([facility]) 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 MG Oral Capsule SUSI ([facility]) Fluoxetine 10 MG Oral Capsule SUSI ([facility]) doxycycline hyclate 100 MG Oral Tablet SUSI ([facility]) Docusate Sodium 100 MG Oral Capsule SUSI ([facility]) Divalproex Sodium 500 MG Delayed Release Oral Tablet SUSI ([facility]) Divalproex Sodium 250 MG Delayed Release Oral Tablet SUSI ([facility]) Cephalexin 500 MG Oral Capsule SUSI ([facility]) buspirone hydrochloride 7.5 MG Oral Tablet SUSI ([facility])
--- NOTE | 2021-06-18 08:03 | MHCRPDOC ---
[facility] Consultation Consultation DATE OF CONSULTATION: 06/18/21 CONSULTATION REQUESTED BY: ED for evaluation REASON FOR CONSULTATION: Psychosis RELEVANT HISTORY: Patient presents stating she is having psychosis, seeing people coming to her home, states she is unclear if they are real or not, toxicology screen positive for amphetamines, but stopped taking her medications 2 days ago he is continued on the Haldol decannulate 100 mg and PINZON, despite this took methamphetamine reportedly and feels unsafe to leave, denies SI HI on admission, on interview states she is continued to have suicidal thoughts and wants to harm herself by overdosing on drugs. Meets criteria for involuntary admission. Has multiple inpatient admissions, at least for the last 2 months, with similar presentation, which was brought in by stepfather due to psychotic symptoms including hearing voices, paranoia. Does not elaborate on these voices during interview, stating I just need "mental health help". Endorses symptoms of low mood, anhedonia, hopelessness, feeling stuck, generalized anxiety. Past Psychiatric History Per this writer producer's previous H&P note: Multiple past diagnosis of schizoaffective disorder, substance-induced psychosis, credo, multiple inpatient admissions at least 14 per chart review, multiple past suicide attempts by intentional overdo se. Per chart review has been tried on amitriptyline BuSpar, gabapentin, Haldol, mirtazapine, sertraline, topiramate, prescribed buprenorphine. Takes gabapentin, nicotine patch, olanzapine, prazosin. Patient was discharged with Suboxone, BuSpar 50 mg twice daily, mirtazapine 15 nightly, Prozac 40 p.o. daily, Abilify maintain a 400 mg IM PINZON which she received May 25, 2021. Last received Haldol decanoate 100 mg IM PINZON 06/09/2021. Was taking BuSpar, Haldol 5 mg twice daily. . Past Medical History Medical Problems 2 sections, umbilical hernia, no head injury or seizure, multiple hospitalizations, surgeries Family Medical/Psychiatric HX Medical Problems Father's history schizophrenia, no other history, no history of suicide attempts in the family per chart review Addiction History other (other (Uses methamphetamine, bath salts, heroin IV, "rock")) Social History Per chart review and interview:born and raised in [place], raised by her mother, single child. History of trauma, will not elaborate. Lives reportedly with stepfather in apartment, receives SSI. Has not completed high school. She is , 2 kids 15 and 20, reportedly not living in home with her. Stepfather is her support person. Has served [facility] in [facility], 1 year for p ossession and intent to sell drugs. Per chart review Mental Status Examination General Appearance: Unkempt, bleach blond hair, poor eye contact, appears older than stated age, hospital clothing, sitting in a bed in the ED BHU Build: thin Demeanor: guarded, withdrawn Eye Contact: Avoidant Activity: slowed, anxious Behavior: restless, withdrawn Speech: clear, spontaneous, slow, decreased amount Mood: "I am depressed and suicidal" Affect: labile, disorganized, internally preoccupied, anxious Thought Process: incoherent, tangential Thought Content (Delusions): persecutory, somatic, paranoia, delusions Thought Content (Other): preoccupied, internal-stimuli Thought Content (Aggressive): none reported Perception (Hallucinations): auditory, visual Perception (Other): none reported Cognition (Impairment of): attention/concentration Cognition(Intelligence Est.): average Oriented: Awake, Alert, Oriented to person and place, not time/date "thinks it is May" Insight: poor Judgment: Poor Psychosis: Psychotic Perceptions Diagnoses Schizoaffective disorder per history Substance-induced psychotic disorder Methamphetamine use disorder, severe Heroin use disorder, severe Tobacco use disorder Hallucinogen use disorder,"rock" Assessment/plan: Patient is a 35 y/o woman with PPH of schizophrenia, schizoaffective disorder, polysubstance use who self presents to the ED after reportedly using methamphetamine, per previous admissions patient again likely presents with underlying primary psychotic disorder in context of synthetic drug use. Patient meets criteria for involuntary admission. Vital Signs Vital Signs Date Time Temp Pulse Resp B/P (MAP) Pulse Ox O2 Delivery O2 Flow Rate FiO2 06/18/21 02:51 98.1 95 18 118/80 (93) 99 Room Air Laboratory Data 24H Labs Laboratory Tests 2 06/18/21 03:29: Nucleated Red Blood Cells % (auto) 0.0, Anion Gap 7L, Glomerular Filtration Rate > 60.0, Calcium Level 9.4, Total Bilirubin 0.2, Direct Bilirubin < 0.1, Aspartate Amino Transf (AST/SGOT) 24, Alanine Aminotransferase (ALT/SGPT) 34, Alkaline Phosphatase 112, Total Protein 8.7H, Albumin 4.0, Albumin/Globulin Ratio 0.9L, Thyroid Stimulating Hormone (TSH) 2.460, Human Chorionic Gonadotropin, Qual NEGATIVE, Salicylates Level 2.5L, Urine Opiates Screen NEGATIVE, Urine Methadone Screen NEGATIVE, Acetaminophen Level < 2.0L, Urine B arbiturates Screen NEGATIVE, Urine Phencyclidine Screen NEGATIVE, Urine Amphetamines Screen POSITIVEH, Urine Benzodiazepines Screen NEGATIVE, Urine Cocaine Metabolite Screen NEGATIVE, Urine Cannabinoids Screen NEGATIVE, Ethyl Alcohol Level < 0.003, Coronavirus (COVID-19)(PCR) NEGATIVE, Influenza Type A (RT-PCR) NEGATIVE, Influenza Type B (RT-PCR) NEGATIVE, Respiratory Syncytial Vir us (PCR) NEGATIVE Home Medications Scheduled Atomoxetine Hydrochloride (Strattera) 60 Mg Capsule, 60 MG PO DAILY, (Reported) Benztropine Mesylate (Benztropine Mesylate) 1 Mg Tablet, 1 MG PO BID, (Reported) Buprenorphine HCl/Naloxone HCl (Suboxone 2 mg-0.5 mg Sl Film) 1 Each Film, 1 STRIP SL QHS, (Reported) Buprenorphine HCl/Naloxone HCl (Buprenorphin-Naloxon 8-2 mg Sl) 1 Each Tab.subl, 1 TAB SL BID for ., (Reported) QHS DOSE TAKEN WITH 2MG-0.5MG FOR TOTAL OF 10MG QHS Buspirone HCl (Buspirone HCl) 10 Mg Tablet, 10 MG PO BID for anxiety Docusate Sodium (Docusate Sodium) 100 Mg Capsule, 100 MG PO DAILY, (Reported) Fluoxetine Hcl (Fluoxetine HCl) 10 Mg Capsule, 30 MG PO DAILY for depression Gabapentin (Gabapentin) 300 Mg Capsule, 600 MG PO TID for anxiety Haloperidol (Haloperidol) 2 Mg Tablet, 6 MG PO BID for psychosis Haloperidol Decanoate (Haldol Decanoate 100) 100 Mg/1 Ml Ampul, 1 ML IM Q30D for psychosis Mupirocin (Mupirocin) 2 % Oint...g., 1 DOSE EXT BID, (Reported) STARTED ON 05/13/21, APPLY TO WOUND ON RIGHT ARM Oxybutynin Chloride (Oxybutynin Chloride) 5 Mg Tablet, 5 MG PO BID, (Reported) Topiramate (Topiramate) 100 Mg Tablet, 100 MG PO DAILY, (Reported) Scheduled PRN Trazodone HCl (Trazodone HCl) 50 Mg Tablet, 50 MG PO QHSP PRN for INSOMNIA Allergies Coded Allergies: No Known Allergies (Verified , 06/02/20) BRANDI ESTES MD Jun 18, 2021 08:03
[2021-06-18] MEDS ORDERED: HOME MED LIST COMPLETE! XX SCH (14:20)
[2021-06-19 00:06] VITALS: BP 132/96
--- NOTE | 2021-06-20 07:45 | ECGEPIP ---
[facility] - ED Test Date: 2021-06-18 Pat Name: BIGG SIMS Department: Room: - Gender: Female Transfer Coordinator: DELMER : 1985 Requested By: LANDRY Alexander Order Number: [id number] Reading MD: Yessica Caal Measurements Intervals Winder Rate: 58 P: 58 NH: 136 QRS: 21 QRSD: 86 T: 38 QT: 522 QTc: 512 Interpretive Statements Sinus bradycardia T wave abnormality, consider ischemia Prolonged QT, clinical correlation Electronically Signed on 06-20-2021 7:45:15 EST by Yessica Caal
== END 2021-06-19 00:09 ==
LOC: M ED 02:50
DX: F29 Unspecified psychosis not due to a substance or known physiological condition (principal); F31.89 Other bipolar disorder; G43.909 Migraine, unspecified, not intractable, without status migrainosus; R56.9 Unspecified convulsions; F17.200 Nicotine dependence, unspecified, uncomplicated; F19.10 Other psychoactive substance abuse, uncomplicated; Z79.899 Other long term (current) drug therapy

== ENCOUNTER 2021-07-09 07:14 | Inpatient (IN) | payer OTHER ==
[2021-07-09 08:29] LABS: BASO # 0.1 10^3/uL (0.0-0.2); BASO % 1.2 % (0.0-1.0); EOS # 0.1 10^3/uL (0.0-0.5); EOS % 3.2 % (0.0-3.0); HEMATOCRIT 40.2 % (36.0-47.0); HEMOGLOBIN 13.6 g/dl (12.0-15.5); LYMPH # 1.9 10^3/uL (1.5-5.0); LYMPH % 47.5 % (24.0-44.0); MEAN CORPUSCULAR HEMOGLOBIN 30.7 pg (27.0-33.0); MEAN CORPUSCULAR HGB CONC 33.8 g/dl (32.0-36.5); MEAN CORPUSCULAR VOLUME 90.7 fl (80.0-96.0); MONO # 0.5 10^3/uL (0.0-0.8); MONO % 11.3 % (2.0-8.0); NEUTROPHILS # 1.5 10^3/uL (1.5-8.5); NEUTROPHILS % 36.6 % (36.0-66.0); PLATELET COUNT, AUTOMATED 173 10^3/uL (150-450); RED BLOOD COUNT 4.43 10^6/uL (4.00-5.40); WHITE BLOOD COUNT 4.1 10^3/uL (4.0-10.0)
--- OUTSIDE RECORDS SUMMARY | 2021-07-09 08:58 | CCD | Summary of Care ---
Author Author [facility] Organization [facility] Address Unknown Phone Unavailable Care Team Providers Care [employer] Name Role Phone Julito Hanna MD PCP Reason for Visit * Auth/Cert Diagnoses / Procedures Referred By Contact Referred To Conta ct Specialty Diagnoses Substance induced mood disorder schizoaffective Referral ID Status Reason Start Date Expiration Visits Vi sits Date Requested Authorized [id number] 1 1 Encounter Details Care Team Description Date Type Department Spencer Magdaleno MD [address] Room [address] [place] [phone] [email or web address] Hetal Verdin MD [address] [place] [id number] [email or web address] 06/19/[address] PSYCHIATRY C C - Encounter [address] 06/24/2021 [place] [address] Allergies No known active allergiesdocumented as of this encounter (statuses as of 06/24/2021) Medications End Date Status Medication Sig Dispensed Refills Start Date Active Gabapentin 300 MG Oral Take 600 mg 0 Capsule (NEURONTIN) by mouth Three times daily Active Oxybutynin Chloride 5 MG Take 5 mg by 0 Oral Tablet (DITROPAN) mouth Two Times Daily Active Narcan 4 MG/0.1ML Nasal 1 spray by 0 Liquid Nasal route 1 once Active Nicotine Polacrilex 4 MG Take 4 mg by 0 06/11 Mouth/Throat Gum mouth Four 1 (NICORETTE) times daily as needed for Smoking cessation 07/24/2021 Active Topiramate 100 MG Oral Take 1 tablet 30 tablet 0 1 Tablet (TOPAMAX) by mouth 1 daily 07/24/2021 Active Benztropine Mesylate 1 MG Take 1 tablet 60 tablet 0 Oral Tablet (COGENTIN) by mouth Two 1 Times Daily 07/24/2021 Active busPIRone HCl 10 MG Oral Take 2 180 tablet 0 1 Tablet (BUSPAR) tablets by 1 mouth Three times daily 07/25/2021 Active FLUoxetine HCl 10 MG Oral Take 3 90 capsule 0 Capsule (PROZAC) capsules by 1 mouth daily 07/24/2021 Active traZODone HCl 50 MG Oral Take 1 tablet 30 tablet 0 Tablet (DESYREL) by mouth 1 nightly 06/24/2021 Discontinued (Stop Taking at Discharge) busPIRone HCl 10 MG Oral Take 10 mg by 0 Tablet (BUSPAR) mouth Two Times Daily 06/24/2021 Discontinued (Stop Taking at Discharge) FLUoxetine HCl 10 MG Oral Take 10 mg by 0 Capsule (PROZAC) mouth every morning 06/24/2021 Discontinued (Stop Taking at Discharge) Haloperidol 2 MG Oral Take 6 mg by 0 Tablet (HALDOL) mouth Two Times Daily 06/24/2021 Discontinued (Stop Taking at Discharge) traZODone HCl 50 MG Oral Take 50 mg by 0 Tablet (DESYREL) mouth nightly as needed for Sleep 06/22/2021 Discontinued (Medication Rec oncilation) Docusate Sodium 100 MG Take 100 mg 0 Oral Capsule (COLACE) by mouth daily 06/22/2021 Discontinued (Medication Rec oncilation) Buprenorphine Place 2 mg of 0 HCl-Naloxone HCl 2-0.5 MG buprenorphine Sublingual Film under the (Suboxone) tongue nightly 06/22/2021 Discontinued (Medication Rec oncilation) Atomoxetine HCl 60 MG Take 60 mg by 0 Oral Capsule (STRATTERA) mouth daily 06/24/2021 Discontinued (Reorder) Topiramate 100 MG Oral Take 100 mg 0 Tablet (TOPAMAX) by mouth daily 06/24/2021 Discontinued (Stop Taking at Discharge) Benztropine Mesylate 1 MG Take 1 mg by 0 Oral Tablet (COGENTIN) mouth Two times daily as needed As directed 06/22/2021 Discontinued (Medication Rec oncilation) Buprenorphine Place under 0 HCl-Naloxone HCl 8-2 MG the tongue Sublingual Tablet Two Times Sublingual (SUBOXONE) Daily 06/22/2021 Discontinued (Medication Rec oncilation) Misc. Devices Kit Use as 0 directed. 2 06/22/2021 Discontinued (Medication Rec oncilation) OLANZapine 15 MG Oral TAKE ONE 0 09/30/19 2 Tablet (ZYPREXA) TABLET BY 1 MOUTH AT BEDTIME 06/22/2021 Discontinued (Medication Rec oncilation) OLANZapine 5 MG Oral TAKE ONE 0 Tablet (ZYPREXA) TABLET BY 0 MOUTH TWICE A DAY 06/22/2021 Discontinued (Medication Rec oncilation) TRAMADOL HCL PO Take 50 mg by 0 mouth 1 06/22/2021 Discontinued (Medication Rec oncilation) Amitriptyline HCl 25 MG Take 25 mg by 0 Oral Tablet (ELAVIL) mouth nightly 1 06/24/2021 Discontinued (Stop Taking at Discharge) Abilify Maintena 400 MG Inject 400 mg 0 Intramuscular Suspension into the 1 Reconstituted ER muscle every 30 (thirty) days 06/22/2021 Discontinued (Medication Rec oncilation) ARIPiprazole 10 MG Oral Take 10 mg by 0 Tablet (ABILIFY) mouth daily 1 06/22/2021 Discontinued (Medication Rec oncilation) busPIRone HCl 15 MG Oral 0 Tablet (BUSPAR) 1 06/22/2021 Discontinued (Medication Rec oncilation) Cephalexin 500 MG Oral TAKE ONE 0 02 Capsule (KEFLEX) CAPSULE BY 1 MOUTH EVERY 6 HOURS UNTIL GONE 06/22/2021 Discontinued (Medication Rec oncilation) Vitamin D3 50 MCG (2000 Take 1 tablet 0 UT) Oral Tablet by mouth 1 daily 06/22/2021 Discontinued (Medication Rec oncilation) Doxycycline Hyclate 100 Take by mouth 0 MG Oral Tablet 1 (VIBRA-TABS) 06/22/2021 Discontinued (Medication Rec oncilation) Doxycycline Hyclate 100 Take 100 mg 0 MG Oral Tablet by mouth Two 1 (VIBRA-TABS) Times Daily 06/24/2021 Discontinued (Stop Taking at Discharge) FLUoxetine HCl 20 MG Oral 0 Capsule (PROZAC) 1 06/22/2021 Discontinued (Medication Rec oncilation) Gabapentin 400 MG Oral TAKE ONE 0 02 Capsule (NEURONTIN) CAPSULE BY 1 MOUTH FOUR TIMES A DAY 06/22/2021 Discontinued (Medication Rec oncilation) Gabapentin 600 MG Oral Take 600 mg 0 02 Tablet (NEURONTIN) by mouth 1 Three times daily 06/22/2021 Discontinued (Medication Rec oncilation) Haloperidol 10 MG Oral TAKE TWO 0 02 Tablet (HALDOL) TABLETS BY 1 MOUTH TWICE A DAY NEEDED 06/22/2021 Discontinued (Medication Rec oncilation) Haloperidol 5 MG Oral 0 Tablet (HALDOL) 1 06/24/2021 Discontinued (Stop Taking at Discharge) Haloperidol Decanoate 100 Inject 100 mg 0 06/01 MG/ML Intramuscular into the 1 Solution (HALDOL muscle every DECANOATE) 28 (twenty-eight ) days 06/22/2021 Discontinued (Medication Rec oncilation) hydrOXYzine HCl 50 MG TAKE ONE 0 08/04/19 2 Oral Tablet (ATARAX) TABLET BY 1 MOUTH THREE TIMES A DAY NEEDED 06/22/2021 Discontinued (Medication Rec oncilation) Ibuprofen 600 MG Oral Take 600 mg 0 02/10/20 1 Tablet (MOTRIN) by mouth 1 06/22/2021 Discontinued (Medication Rec oncilation) Levonorgestrel 1.5 MG Take by mouth 0 02/10/20 1 Oral Tablet (Plan B 1 One-Step) 06/22/2021 Discontinued (Medication Rec oncilation) Levothyroxine Sodium 50 Take 50 mcg 0 MCG Oral Tablet by mouth 1 (SYNTHROID) daily 06/22/2021 Discontinued (Medication Rec oncilation) Melatonin 3 MG Oral TAKE TWO 0 Tablet TABLETS BY 1 MOUTH AT BEDTIME NEEDED FOR SLEEP 06/22/2021 Discontinued (Medication Rec oncilation) metroNIDAZOLE 500 MG Oral 500 MG BY 0 11/29 Tablet (FLAGYL) MOUTH AT 1 BEDTIME FOR INFECTION 06/24/2021 Discontinued (Stop Taking at Discharge) Mirtazapine 15 MG Oral Take 15 mg by 0 02 Tablet (REMERON) mouth nightly 1 06/22/2021 Discontinued (Medication Rec oncilation) Mirtazapine 30 MG Oral Take 30 mg by 0 02 Tablet (REMERON) mouth nightly 1 06/22/2021 Discontinued (Medication Rec oncilation) Tab-A-Silvestre Oral Tablet Take 1 tablet 0 02 by mouth 1 daily 06/24/2021 Discontinued (Stop Taking at Discharge) Mupirocin 2 % External Apply 0 02 Ointment (BACTROBAN) topically Two 1 Times Daily Apply to affected area(s) around wound topically twice daily as directed. 06/22/2021 Discontinued (Medication Rec oncilation) Naproxen 500 MG Oral TAKE ONE 0 Tablet (NAPROSYN) TABLET BY 1 MOUTH TWICE A DAY AT 6AM AND 6PM 06/22/2021 Discontinued (Medication Rec oncilation) Nicotine 21 MG/24HR APPLY 1 PATCH 0 Transdermal Patch 24 Hour DAILY 1 (NICODERM CQ) 06/22/2021 Discontinued (Medication Rec oncilation) Nicotine Polacrilex 2 MG USE ONE PIECE 0 02/24 Mouth/Throat Gum EVERY HOUR 1 (NICORETTE) NEEDED FOR NICOTINE CRAVINGS 06/22/2021 Discontinued (Medication Rec oncilation) SM Nicotine Polacrilex 4 TAKE ONE 0 09/29 MG Mouth/Throat Lozenge LOZENGE 1 BUCCALLY FOUR TIMES A DAY NEEDED 06/22/2021 Discontinued (Medication Rec oncilation) OLANZapine 10 MG Oral TAKE ONE HALF 0 04/15/20 2 Tablet (ZYPREXA) 0.5 TABLET 1 BY MOUTH EVERY IN THE MORNING AND ONE 1 TABLET AT BEDTIME 06/22/2021 Discontinued (Medication Rec oncilation) OLANZapine 15 MG Oral Take 15 mg by 0 05/17/20 2 Tablet (ZYPREXA) mouth every 1 morning 06/22/2021 Discontinued (Medication Rec oncilation) OLANZapine 5 MG Oral DISSOLVE ONE 0 Tablet Disintegrating TABLET UNDER 1 (ZYPREXA) THE TONGUE EVERY DAY NEEDED FOR ANXIETY AGITATIONS 06/22/2021 Discontinued (Medication Rec oncilation) Oxybutynin Chloride ER 10 Take 10 mg by 0 /2 MG Oral Tablet Extended mouth daily 1 Release 24 Hour (DITROPAN-XL) 06/22/2021 Discontinued (Medication Rec oncilation) Prazosin HCl 1 MG Oral Take 1 mg by 0 02 Capsule (MINIPRESS) mouth nightly 1 06/22/2021 Discontinued (Medication Rec oncilation) Prazosin HCl 2 MG Oral Take 2 mg by 0 02 Capsule (MINIPRESS) mouth nightly 1 06/22/2021 Discontinued (Medication Rec oncilation) SM Fiber Powder 25 % Oral TAKE 1 0 01/30 Powder ROUNDED 1 TEASPOONFUL MIXED IN FLUID BY MOUTH TWO TIMES A DAY 06/22/2021 Discontinued (Medication Rec oncilation) risperiDONE 2 MG Oral Take 2 mg by 0 03/30/20 2 Tablet (RISPERDAL) mouth nightly 1 06/22/2021 Discontinued (Medication Rec oncilation) risperiDONE 3 MG Oral Take 3 mg by 0 01/19/20 2 Tablet (RISPERDAL) mouth nightly 1 06/22/2021 Discontinued (Medication Rec oncilation) Stool Softener/Laxative Take 2 0 50-8.6 MG Oral Tablet tablets by 1 mouth Two Times Daily 06/22/2021 Discontinued (Medication Rec oncilation) Sertraline HCl 100 MG Take 100 mg 0 02/25/20 2 Oral Tablet (ZOLOFT) by mouth 1 daily 06/22/2021 Discontinued (Medication Rec oncilation) Sertraline HCl 25 MG Oral Take 25 mg by 0 Tablet (ZOLOFT) mouth every 0 morning 06/22/2021 Discontinued (Medication Rec oncilation) Sertraline HCl 50 MG Oral Take 50 mg by 0 12/31 Tablet (ZOLOFT) mouth nightly 1 06/22/2021 Discontinued (Medication Rec oncilation) Sulfamethoxazole-Trimetho Take by mouth 0 01/29 prim 800-160 MG Oral 1 Tablet (BACTRIM DS) 06/22/2021 Discontinued (Medication Rec oncilation) Atomoxetine HCl 10 MG Take 20 mg by 0 02/25/20 2 Oral Capsule (STRATTERA) mouth daily 1 06/22/2021 Discontinued (Medication Rec oncilation) Atomoxetine HCl 40 MG Take 40 mg by 0 02/25/20 2 Oral Capsule (STRATTERA) mouth daily 1 06/22/2021 Discontinued (Medication Rec oncilation) Buprenorphine PLACE ONE 0 HCl-Naloxone HCl 12-3 MG FILM UNDER 1 Sublingual Film THE TONGUE (SUBOXONE) EVERY MORNING MAXIMUM DAILY DOSE 1 FILM 06/22/2021 Discontinued (Medication Rec oncilation) Suboxone 8-[address] ONE 0 Sublingual Film FILM UNDER 1 THE TONGUE TWICE A DAY MAXIMUM DAILY DOSE 2 FILMS 06/22/2021 Discontinued (Medication Rec oncilation) traMADol HCl 50 MG Oral Take by mouth 0 Tablet (ULTRAM) 1 documented as of this encounter (statuses as of 06/24/2021) Active Problems Problem Noted Date Substance induced mood disorder 06/19/2021 documented as of this encounter (statuses as of 06/24/2021) Social History Date Tobacco Use Types Packs/Day Years Used Current Every Day Smoker Cigarettes Tobacco Cessation: Ready to Quit: No; Co unseling Given: Yes Comments Alcohol Use Standard Drinks/Week Not Currently 0 (1 standard drink = 0.6 o z pure alcohol) Sex Assigned at Date Recorded Not on file Date Recorded COVID-19 Exposure Response 2021 5:24 PM EST In the last month, have you been in contact with No / Unsure someone who was confirmed or suspected to have Coronavirus / COVID-19? documented as of this encounter Last Filed Vital Signs Reading Time Taken Comments Vital Sign 105/70 06/23/2021 5:08 PM EST Blood Pressure 82 06/23/2021 8:21 AM EST Pulse 36.6 C (97.9 F) 06/23/2021 6:00 AM EST Temperature 16 06/23/2021 8:21 AM EST Respiratory Rate 100% 06/23/2021 5:08 PM EST Oxygen Saturation - - Inhaled Oxygen Concentration 53.4 kg (117 lb 12.8 oz) 06/19/2021 2:01 AM EST Weight 154.9 cm (5' 1") 06/19/2021 2:01 AM EST Height 22.26 06/19/2021 2:01 AM EST Body Mass Index documented in this encounter Discharge Instructions * Appointments* Heavenly Keller LCSW - 06/23/2021 1:50 PM EST [address] [address] Appointment on Tuesday07/01/2021 at 9:30 AM with Peg Appointment on Tuesday07/01/2021 at 11:50 AM with Ally documented in this encounter Progress Notes * Heavenly Keller LCSW - 06/24/2021 10:21 AM ESTSummary: Discharge note SW met with patient to complete a safety plan and discuss discharge. She will re turn to her therapist at [facility] on 07/01/2021 and her step father will be picking her up for transport home today. Patient is calm, clear and at baseline. * Juliet Duncan RN - 06/24/2021 10:21 AM EST black top roller Note: Pt was d/c according to MD's order. Discharged paperwork, including: medications /precriptions, crisis intervention plan and outpatient appointment information h ave all been discussed with the patient. Patient voiced understanding regarding discharge information. All patient belongings have been collected and patient verified all belongings w ere accounted for. No concerns voiced by the patient at this time. Pt denied any Si, Hi, AVH or pain. Pt felt ready to be d/c and waiting for the r babs. * Vikas Souza RN - 06/24/2021 6:17 AM EST RN Shift Note [id number]: Report received from previous shift. Pt was mostly secl usive to room throughout the evening socializing with roommate. Came into the [place] for hs snack and meds. States feeling "good" and ready for discharge. Denie s SI, HI, AVH, DTS, DTO and pain. Appeared to sleep throughout the night in no a pparent distress. Respirations easy, even, unlabored. Position changes noted. Re collins on 15 minute safety checks as ordered. Will continue to monitor and report for safety. Report given to oncoming RN. * Danya Sauceda - 06/23/2021 2:06 PM EST PSY Progress Note Subjective: CC: "I'm here for mental health reasons; I thought my baby's father was trying t o kill me." Interval HX: Cely simmons 36 y.o.domiciled alone in an apartment [address],unemployedon SSI, with a PMHx most significant forcardiac a rrest secondary to overdose, hep C, fibromyalgia, seizures, migraines, and anemi aand a PPHx of substance-induced psychotic disorder, schizoaffective disorde r, depression, anxiety,multiplehospitalizations(at least 14 per [facility] review),multipleSAs by drug overdose,noSIB,no h/oviole nce [facility] the setting o f substance-induced psychosis. Nursing staff reported that patient was cooperative, med compliant, and slept mu of the evening 06/22. Patient reports her mood today as "fine." Patient reported that she slept from 5 pm to 6:30 am with only waking once to take medication. She describes her appet ite as good although her energy remains persistently low. She has interest in at tending group and reports no anxiety/panic attacks in the last 24 hours. She fee ls safe for discharge tomorrow and re-iterated that she would like to have anoth er day to see how she does with anxiety after her BuSpar was increased. Her step father is coming into town tomorrow and she would like him to pick her up. Patient denies SI, HI, PI, AH, VH, SIB, and symptoms of stimulant withdrawal inc luding psychomotor changes. . Patient Active Problem List Diagnosis Substance induced mood disorder Allergies: .No Known Allergies . Current Facility-Administered Medications: acetaminophen (TYLENOL) tablet 650 mg, 650 mg, Oral, Q6H PRN, LEA Bullock aluminum & magnesium hydroxide-simethicone (MAALOX PLUS) 200-200-20 MG/5ML oral suspension 30 mL, 30 mL, Oral, Q4H PRN, LEA Bullock benztropine (COGENTIN) tablet 1 mg, 1 mg, Oral, BID, LEA Bullock, 1 mg at 06/23/21 08 bisacodyl (DULCOLAX) suppository 10 mg, 10 mg, Rectal, Q72H PRN, Alla Aguirre NP buprenorphine-naloxone (SUBOXONE) 8-2 MG per sublingual tablet 1 tablet, 8 mg of buprenorphine, Sublingual, BID, Arcelia Altamirano MD, 1 tablet at 06/23/21 0926 busPIRone (BUSPAR) tablet 20 mg, 20 mg, Oral, TID, Spencer Magdaleno MD, 2 0 mg at 06/23/21826 docusate sodium (COLACE) capsule 100 mg, 100 mg, Oral, Daily, LEA Bullock, 100 mg at 06/23/21826 FLUoxetine (PROZAC) capsule 30 mg, 30 mg, Oral, Daily, LEA Mckeon, 30 mg at 06/23/21826 gabapentin (NEURONTIN) capsule 600 mg, 600 mg, Oral, TID, Spencer Magdaleno MD, 600 mg at 06/23/21 1151 hydrOXYzine (ATARAX) tablet 50 mg, 50 mg, Oral, Q6H PRN, LEA Barth, 50 mg at 06/23/21 1039 magnesium hydroxide (MILK OF MAGNESIA) 400 MG/5ML oral suspension 30 mL, 30 mL, Oral, Daily PRN, LEA Bullock nicotine (NICODERM CQ) 21 MG/24HR 1 patch, 1 patch, Transdermal, Daily, Mariely Jamison NP, 1 patch at 06/23/21 0830 nicotine (NICORETTE) lozenge 2 mg, 2 mg, Mouth/Throat, Q2H PRN, Mariely baker NP, 2 mg at 06/23/21 1039 ondansetron (ZOFRAN-ODT) disintegrating tablet 4 mg, 4 mg, Oral, Q6H PRN , LEA Bullock oxybutynin (DITROPAN) tablet 5 mg, 5 mg, Oral, BID, LEA Bullock, 5 mg at 06/23/21 0827 senna tablet 2 tablet, 2 tablet, Oral, Nightly PRN, Alla Aguirre, MARIELA topiramate (TOPAMAX) tablet 100 mg, 100 mg, Oral, Daily, Joanna E LEA Coy, 100 mg at 06/23/21 0827 trazodone (DESYREL) tablet 50 mg, 50 mg, Oral, Nightly, Joanna E LEA Lebron, 50 mg at 06/23/21 0142 Review Of Systems: Medical Review Of Systems: .Review of Systems Constitutional: Negative. HENT: Negative. Eyes: Negative. Respiratory: Negative. Cardiovascular: Negative. Gastrointestinal: Negative. Genitourinary: Negative. Musculoskeletal: Negative. Patient denied stiffness, rigidity, myalgias, and arthralgias. She had repo rted these symptoms, specifically in relation to her hands, over the last few da ys. Skin: Negative. Neurological: Negative. Psychiatric/Behavioral: Negative. All other systems reviewed are negative Psychiatric Review Of Systems: sleep: no appetite changes: no weight changes: no energy/anergy: yes, patient has had baseline low fatigue for the last month, not precipitated by any event in particular interest/pleasure/anhedonia: no somatic symptoms: no libido: no anxiety/panic: no, anxity has significantly improved in last 24 hours guilty/hopeless: no S.I.B.s/risky behavior: no any drugs: no, hx prior to admission (use of rock & meth 3 days prior to admission) alcohol: no Objective: . Vitals: 06/23/21 0600 06/23/21 0821 06/23/21 0900 06/23/21 0920 BP: 106/71 (!) 88/58 (!) 77/52 97/64 Pulse: 60 82 Resp: 16 16 Temp: 36.6 C (97.9 F) SpO2: 97% 98% Mental Status Exam: .General Appearance: Patient is a average weight 36 y.o. female who appears the stated age. She has fair hygiene. She is sitting in bed.She is dressed in weath er appropriate and casual clothing. Behavior: Attitude: Patient is cooperative. Psychomotor: Patient does not have psychomotor agitation or psychomotor retarda tion. Patient does not exhibit restlessness. Eye Contact: Eye contact is appropriate. Speech: Patient's speech is spontaneous. Speech quantity: minimal. Rate is slow. Volume is soft. Affect: Affect is euthymic, stable, appropriate and congruent with stated mood. Patient appears constricted. Thought Process: Thought process is linear, coherent and goal directed. Thought Content: Patient does not express active suicidal ideation, passive suic idal ideation, active homicidal ideation, passive homicidal ideation, delusions of persecution, delusions of guilt, delusions of grandiosity and ideas of refere nce. Perceptions: Patient is not internally preoccupied. Patient does not have audito ry hallucinations or visual hallucinations. Cognition: Cognition is grossly intact. Patient is awake and alert. She is orien marques to time, place and person. Insight: Fair; Patient is somewhat aware of role the substance abuse plays in ex acerbating her acute episodes of paranoia and AH, but not the scope of severity. . Judgement: Fair; Patient has had repeat hospitalizations following substance abu se and does not verbalize a plan to quit using.. Gait: Normal narrow based gait and station. Muscle Tone: No increased muscle tone. Labs: .No results for input(s): NA, K, CL, BICARBONATE, CALCIUM, GLUCOSE, BUN, CREATIN INE, BCR, LABOSMO, PROT, ALBUMIN, TBILI, ALKPHOS, AST, ALT, AGGREGATE, AGRATIO, GFRAA, GFRNONAA in the last 168 hours. .No results for input(s): HCT, HGB, MCH, MCHC, MCV, MPV, PLT, RDW, WBCUA, WBCCAS T, WBCCASTS, WBC in the last 168 hours. .No results for input(s): TSH, T3FREE, C0QAHEH, FREET4, A9VHNKB in the last 168 hours. 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 Assessment: The patient is a36 y.o.with a history of substance-induced psychotic dis order, schizoaffective disorder, and reported depression, anxiety, and PTSDw ho presented to [facility] with AH and paranoid thoughts of her baby's father trying to kill her following use of rock, meth, and heroine, and was subsequent ly transferred to . Patient has a history of paranoid thoughts and auditory ocampo llucinations regarding her children and people entering her home following subst ance use over a course of many years. Symptoms including hallucinations and delu sions appear to worsen acutely in the wake of substance use rather than intermit tent periods of sobriety, making an exacerbation of schizophrenia or schizoaffec tive disorder less likely. Symptoms of anxiety are also related to paranoid thou ghts which are acutely exacerbated following substance use. Since being admitte d, the patient reports resolution of her psychotic symptoms, but she continues t o report some ongoing anxiety. The patient's relatively rapid improvement is al so more indicative of a substance-induced mood/psychotic disorder. She continue s to require hospitalization for safety and stabilization in the setting of her ongoing anxiety and recent paranoia. Plan: #Schizoaffective disorder, substance-induced psychotic disorder -IncreasedBuSpar on 06/22 to 20mgto TIDfor anxiety which the patient reported was persistent at ~3 episodes/day -ContinueProzac 30mg dailyfor depressed mood and anxiety -Patient received Invega Sustenna 234 mg on 06/20/2021, per her request after anastacia gilman of the Haldol and largely ineffective -Patient received Haldol decanoate 100 mg on 06/13/2021 -DiscontinuedHaldol 5mg BID on 06/22as the patient recently received I nvega per her request -Continue Cogentin 1 mg twice daily for possible EPS -With plan to continue transition to Invega from Haldol as an outpatient -Continue Trazodone 50mgnightly for sleep Opiate use disorder -Continuesuboxone 8mgtwice daily, patient has not reported any symptoms of withdrawal, VSS Migraines,seizures(last 1 year ago, likely in the setting of withdrawal) -ContinueTopamax 100mg daily Chronic neuropathic pain -Continue gabapentin 600mg TID; patient will not be given script on discharge pe r CW request as she uses this to get high in absence of rock Overactive bladder -Continue Ditropan 5 mg BID Duration of Face to Face Time (in minutes)::20 Floor Time (in minutes): 10 [x] Greater than 50% of patient time and floor time spent providing counseling and/or coordination of care Counseling provided with: [x] Patient [] Family [] Caregiver [] Diagnostic results/impressions and/or recommendation studies [] Risks and Benefits of Treatment Options [] Instruction for Management/Treatment and/or Follow-Up [] Risk Factor Reduction [x] Importance of Compliance with Treatment Options [x] Patient/Family/Caregiver Education [] Prognosis Coordination of Care provided with: [x] Nursing Staff [x] Treatment Team [x]Social Work [x] Physician(s) [] Family [] dean of graduate studies Justification for Continued Stay: [] A. Continued Danger to Self and/or Others [x] B. Continued behavior intolerable to patient or society [] C. High probability of A or B recurring if patient were discharged and immine nt re-hospitalization likely [] D. Recovery depends on use of modality, patient unwilling or unable to coop erate [] E. Major change of clinical conditions required extended treatment [] F. Patient has general medical condition requiring hospital care & due to psychiatric aspects, patient cannot be managed as well on non-psych unit [] [facility] Alternate Level of Care Danya Sauceda, MS3 Associated attestation - Spencer Magdaleno MD - 06/23/2021 7:53 PM EST I have personally evaluated this patient and discussed the case with MS Sauceda. Please see their note for full history, assessment and plan. Cely Galindo is a 36 y.o. domiciled in her own apt, on SSI, applying for job s, with a PMHx most significant for migraines and epilepsy (unclear if related t o withdrawal) and a PPHx of stimulant use disorder (rock and methamphetamine), opiate use disorder on suboxone schizoaffective disorder, 5 prior hospitalizatio ns, last 2 weeks ago, SA, SIB, violence who is BIB self for worsening paranoia i n the setting of methamphetamine use. She reports that she initially presented o n 06/12/21 for the same presentation and then was released, but the same thing o ccured, she re-presented and was xfer to [facility] The pt was seen, examined and discussed in multidisciplinary rounds. The pt atte nded and participated in group. She was noted appear sedated at times. The pt did not have any acute events over night, and did not require any PRNs. She is adherent to her standing medications. She was noted to sleep through the night. VSS. The pt states mood is " fine, better". Pt reports significant improvement in her sleep. She reports that she was able to sleep the entirety of the night. She reports improvement in most other depressive symptoms as well, stating her appet ite, energy and interests have improved. However, she acknowledges that they re main low overall. She reports feeling as though her anxiety is under improved c ontrol with the increase in BuSpar and use of Atarax. She denies active/passive SI, HI, AH, VH, and PI. She explains that she has not had any paranoia or marie tory hallucinations since her initial presentation. Pt denies any side effects from medications and states that they have helped. Pt reports understanding of r isks and benefits of the medications. She is increasingly future oriented and i nterested in returning to her home with her stepfather. She denies any safety c oncerns in the home. MSE: Appearance: a young femlae who appears her stated age. She is slightly dishevele d with bleached blonde hair which is medium length. She is wearing a payne tshirt and tie-dye leggings. She has tattoos on her right arm. She is short and weighs 54kg. Behavior/Relatedness: No psychomotor agitation, retardation, tics, tremors, enrique es or sweats noted. She is somewhat withdrawn and guarded regarding some of the details of her psychotic symptoms. However, she is engaged throughout the inte rview. She has good eye contact. Speech: Normal rate, rhythm, volume, tone and prosody Mood: Fine Affect: Euthymic, restricted, appropriate, reactive Thought Process: Logical, linear and goal-directed Though content: She denied any active or passive suicidal ideation, intent or pl an. She denied any homicidal ideation. She denies any further paranoia. No oth er delusions are elicited. She is increasingly future oriented to returning to her home and seeing her family. Perception: She denies any further auditory or visual hallucinations. She denie s any command auditory hallucinations. Cognition: Alert and oriented x3, grossly intact. Insight/Judgement: Fair and improving, as the patient appears to minimize her negron bstance use is role in her presentation, but she is accepting of the need for on going treatment for this Labs: Cbc unremarkable utox + ampehatamines hcg neg tsh 2.46 covid neg Assessment: In total, the pt's presentation at this time appears most consistent with substance-induced mood/psychotic disorder related to her ongoing use of st imulants. The patient reported an acute worsening of psychotic symptoms in the setting of stimulant use. This appears to be improving and resolving in the abs ence of the stimulants. This observation is more consistent with a substance-in duced mood/psychotic disorder rather than an underlying schizoaffective disorder . Regardless, the patient's paranoia made her an acute danger requiring hospita lization. However, the patient appears to be improving and may be safely transi tion back to outpatient care shortly. Plan: Admit 5[facility] STATUS: Converted from 9.37 to 9.13; OBSERVATION: Every 15 minutes, as the patie nt denies any current active or passive suicidal ideation, intent or plan; VITAL S: Every 12 hours; no PRECAUTIONS; DIET: Regular Schizoaffective sorter, substance-induced psychotic disorder -Continue buspar 20mg to tid for anxiety -Atarax 50 mg every 6 hours as needed anxiety -Continue prozac 30mg daily for depressed mood and anxiety -Continue Haldol 5mg bid in combination with haldol 100mg [id number] last received on 06/13/21; the patient reported history of schizoaffective disorder -Continue trazodone 50mg nightly for sleep Opiate use disorder -Continue suboxone 8mg twice daily; patient reports that she received 10 mg in t he morning and 8 mg at night at home, but she reports that she was not fully adh erent to this; therefore we will restart at 8 mg twice daily Migraines, seizures (last 1 year ago, likely in the setting of withdrawal) -Continue topamax 100mg daily Chronic neuropathic pain -Continue gabapentin 600mg tid Overactive bladder -Continue Ditropan 5 mg twice daily PRN MEDIATION: May consider Haldol 5mg, Ativan 2mg and Bendryl 50mg q8h PRN agit ation Disposition: Patient will likely return to her home with outpatient follow-up pe nding her safety and stabilization. -She will likely return to follow-up through [facility] I have read and agree with MS Sauceda's assessment and plan * Heavenly Keller LCSW - 06/23/2021 12:29 PM EST SW spoke with patient's manager of case from [facility] [employer]. She reports she has k nown patient for 3 years and there have been several overdoses more recently. Lea sandoval's go to drug is gabapentin but when she does not have it she uses Rock. S he is concerned about patient over the holiday weekend but understands that we c an't keep her here. She will follow up with patient tomorrow after discharge. * Vikas Souza RN - 06/23/2021 5:50 AM EST RN Shift Note [id number]: Report received from previous shift. Pt appeared to be asleep throughout entire shift. Attempted to wake pt around 2200 for hs meds, bu t did not wake. Attempted again around 0130, pt woke very briefly to accept meds and returned immediately to sleep. Appeared to sleep throughout the night in no apparent distress. Respirations easy, even, unlabored. Position changes noted. Remains on 15 minute safety checks as ordered. Will continue to monitor and repo rt for safety. Report given to oncoming RN. * Spencer Magdaleno MD - 06/22/2021 12:49 PM EST The below note was written by Danya Sauceda with appropriate addendum was PSY Progress Note Subjective: CC: "I'm here for mental health reasons; I thought my baby's father was trying t o kill me." Interval HX: Cely Galindo is a 36 y.o. domiciled alone [facility], unemployed on SSI, with a PMHx most significant for cardiac arrest secondary to overdose, hep C, fibromyalgia, seizures, migraines, and anemia and a PPHx of substance-induced psychotic disorder, schizoaffective disorder, depression, anx iety, multiple hospitalizations (at least 14 per chart review), multiple SAs by drug overdose, no SIB, no h/o violence who is BIB EMS from [facility] for paranoi d thoghts in the setting of substance-induced psychosis. Nursing staff reported over the weekend that Cely was minimally interactive wi th select peers, napped at intervals, her affect was low to even, and she was co operative and med compliant. Chart review showed that the patient stated she was feeling better, thinking of returning to rehab for meth and rock use, and that the patient inquired about switching back to Invega Sustenna, which the patient received IM on 06/20. Today, Cely reports her mood to be "all right." She asked about when she could return home now that she's feeling better, but also asked for a medication adju stment given persistence of what she describes as anxiety attacks up to 3x daily . Cely acknowledges that this is an improvement from up to 5 attacks last week given increase on BuSpar, but asked for the potential to be switched to Ativan. The risks of a benzodiazepine use, especially in the setting of suboxone use, w ere explained to Cely and she agreed to try an increase in BuSpar. We also dis cussed that managing anxiety is a long-term goal that will not likely be resolve d during her hospital course. The patient also asked about discharge either to or Tuesday, 06/24 as she stated that her [id number] would be available on Tuesday AM for a ride home. She decided to wait until Tuesday for planned d ischarge and cited medication changes with BuSpar as part of her reasoning but luis linda did not specify why she wanted to wait until Tuesday. Outside of anxi ety, her sleep has improved to 6-7 hours a night, her appetite is at baseline, a nd she has interest in going to groups and maintaining her newly painted nails. While her energy has remained chronically low over the past month in the absence of a precipitating event, she denies feeling of guilt/hopelessness, SIB, SI, HI , PI, AH, and VH. She additionally denies symptoms of stimulant withdrawal inclu ding psychomotor changes, changes in in sleep, and vivid dreams. VS remain stabl e. . Patient Active Problem List Diagnosis Substance induced mood disorder Allergies: .No Known Allergies . Current Facility-Administered Medications: acetaminophen (TYLENOL) tablet 650 mg, 650 mg, Oral, Q6H PRN, LEA Bullock aluminum & magnesium hydroxide-simethicone (MAALOX PLUS) 200-200-20 MG/5ML oral suspension 30 mL, 30 mL, Oral, Q4H PRN, LEA Bullock benztropine (COGENTIN) tablet 1 mg, 1 mg, Oral, BID, LEA Bullock, 1 mg at 06/22/21 0752 bisacodyl (DULCOLAX) suppository 10 mg, 10 mg, Rectal, Q72H PRN, Alla Aguirre NP buprenorphine-naloxone (SUBOXONE) 8-2 MG per sublingual tablet 1 tablet, 8 mg of buprenorphine, Sublingual, BID, Arcelia Altamirano MD, 1 tablet at 06/22/21 0806 busPIRone (BUSPAR) tablet 15 mg, 15 mg, Oral, TID, Arcelia Altamirano MD, 15 mg at 06/22/21 0752 docusate sodium (COLACE) capsule 100 mg, 100 mg, Oral, Daily, LEA Bullock, 100 mg at 06/22/21 0752 FLUoxetine (PROZAC) capsule 30 mg, 30 mg, Oral, Daily, LEA Mckeon, 30 mg at 06/22/21 0751 gabapentin (NEURONTIN) capsule 600 mg, 600 mg, Oral, TID, Spencer Magdaleno MD, 600 mg at 06/22/21 1131 hydrOXYzine (ATARAX) tablet 50 mg, 50 mg, Oral, Q6H PRN, LEA Barth, 50 mg at 06/22/21 1236 magnesium hydroxide (MILK OF MAGNESIA) 400 MG/5ML oral suspension 30 mL, 30 mL, Oral, Daily PRN, LEA Bullock nicotine (NICODERM CQ) 21 MG/24HR 1 patch, 1 patch, Transdermal, Daily, Mariely Jamison NP, 1 patch at 06/22/21 0753 nicotine (NICORETTE) lozenge 2 mg, 2 mg, Mouth/Throat, Q2H PRN, Mariely Nany Magdalena rendergast, LIME MIXER, 2 mg at 06/22/21 0656 ondansetron (ZOFRAN-ODT) disintegrating tablet 4 mg, 4 mg, Oral, Q6H PRN , LEA Bullock oxybutynin (DITROPAN) tablet 5 mg, 5 mg, Oral, BID, LEA Bullock, 5 mg at 06/22/21 0752 senna tablet 2 tablet, 2 tablet, Oral, Nightly PRN, Alla Aguirre NP topiramate (TOPAMAX) tablet 100 mg, 100 mg, Oral, Daily, LEA Barth, 100 mg at 06/22/21 0752 trazodone (DESYREL) tablet 50 mg, 50 mg, Oral, Nightly, LEA Escalante, 50 mg at 06/21/212025 Review Of Systems: Medical Review Of Systems: .Review of Systems Constitutional: Negative. HENT: Negative. Eyes: Negative. Respiratory: Negative. Cardiovascular: Negative. Gastrointestinal: Negative. Genitourinary: Negative. Musculoskeletal: Positive for arthralgias. Bilateral hand stiffness in AM Skin: Negative. Neurological: Negative. Psychiatric/Behavioral: The patient is nervous/anxious. All other systems reviewed are negative Psychiatric Review Of Systems: sleep: no, sleeps 6-7 hours per night without frequent or early waking appetite changes: no weight changes: no energy/anergy: yes, chronically low energy for the past month, patient denies an y precipitating event interest/pleasure/anhedonia: no somatic symptoms: no libido: no anxiety/panic: yes, panic attacks ~3 times per day per pt, decreased from 5 as o f Tuesday w/ increase in BuSpar guilty/hopeless: no S.I.B.s/risky behavior: no any drugs: no, history prior to admission (rock and meth 3 days prior to admiss ion) alcohol: no Objective: . Vitals: 06/21/21 0600 06/21/21 1600 06/22/21 0600 06/22/21 0750 BP: 100/67 98/65 (!) 88/58 91/57 Pulse: 73 71 90 92 Resp: 16 16 16 Temp: 36.8 C (98.2 F) 36.4 C (97.5 F) 36.3 C (97.3 F) SpO2: 96% 100% 96% 96% Mental Status Exam: .General Appearance: Patient is a thin 36 y.o. female who appears the stated ag e. She has good hygiene. She is sitting in bed.She is dressed in weather appropr iate clothing. Patient is wearing leggings and wrapped in a blanket.. Behavior: Attitude: Patient is cooperative and withdrawn. Psychomotor: Patient does not have psychomotor agitation or psychomotor retarda tion. Patient does not exhibit restlessness. Eye Contact: Eye contact is appropriate. Speech: Patient's speech is spontaneous. Speech quantity: minimal. Rate is slow. Volume is soft. Mood: ""alright."". Affect: Affect is dysphoric, stable and appropriate. Patient appears constricted . Thought Process: Thought process is linear, coherent and goal directed. Thought Content: Patient does not express active suicidal ideation, passive suic idal ideation, active homicidal ideation, passive homicidal ideation, delusions of persecution, delusions of guilt, delusions of grandiosity and ideas of refere nce. Perceptions: Patient is not internally preoccupied. Patient does not have audito ry hallucinations or visual hallucinations. Cognition: Cognition is grossly intact. Patient is awake and alert. She is orien marques to place, time and person. Insight: Limited; Patient has limited insight into role of substance abuse in ho spitalization although does acknowledge a role for change in asking about rehab programs.. Judgement: Limited Gait: Normal narrow based gait and station. Muscle Tone: No increased muscle tone in arms and legs bilaterally. 5/5 strength in upper and lower extremities bilaterally [id number]-[id number] intact, no pronator drift noted Labs: .No results for input(s): NA, K, CL, BICARBONATE, CALCIUM, GLUCOSE, BUN, CREATIN INE, BCR, LABOSMO, PROT, ALBUMIN, TBILI, ALKPHOS, AST, ALT, AGGREGATE, AGRATIO, GFRAA, GFRNONAA in the last 168 hours. .No results for input(s): HCT, HGB, MCH, MCHC, MCV, MPV, PLT, RDW, WBCUA, WBCCAS T, WBCCASTS, WBC in the last 168 hours. .No results for input(s): TSH, T3FREE, C6HPRIQ, FREET4, Q5KZTUZ in the last 168 hours. 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 with a history of substance-induced psychotic disorder, schizoaffective disorder, and reported depression, anxiety, and PTSD who presen marques to [facility] ED with AH and paranoid thoughts of her baby's father trying to kill her following use of rock, meth, and heroine, and was subsequently transf erred to 5W. Patient has a history of paranoid thoughts and auditory hallucinati ons regarding her children and people entering her home following substance use over a course of many years. Symptoms including hallucinations and delusions nory ear to worsen acutely in the wake of substance use rather than intermittent william ods of sobriety, making an exacerbation of schizophrenia or schizoaffective diso rder less likely. Symptoms of anxiety are also related to paranoid thoughts whic h are acutely exacerbated following substance use. Since being admitted, the pa lori reports resolution of her psychotic symptoms, but she continues to report some ongoing anxiety. The patient relatively rapid improvement is also more ind icative of a substance-induced mood/psychotic disorder. She continues to requir e hospitalization for safety and stabilization in the setting of his ongoing anx iety and recent paranoia. Plan: Schizoaffective sorter, substance-induced psychotic disorder -Increasebuspar to 20mgto tidfor anxiety which the patient reported was worse -Continueprozac 30mg dailyfor depressed mood and anxiety -Patient received Invega Sustenna 234 mg on 06/20/2021, per her request after fe elings of the Haldol and largely ineffective -Patient received Haldol decanoate 100 mg on 06/13/2021 -DiscontinueHaldol 5mg bidas the patient recently received Invega per her request -Continue Cogentin 1 mg twice daily for possible EPS -With plan to continue transition to Invega to Haldol as an outpatient -Perform EKG and physical exam in order to ensure the patient was not sufferin g from any ill effects of additional antipsychotic, including EPS, NMS, prolonge d QTC -Continue trazodone 50mgnightly for sleep Opiate use disorder -Continuesuboxone 8mgtwice daily, patient has not reported any symptoms of withdrawal Migraines,seizures(last 1 year ago, likely in the setting of withdrawal) -Continuetopamax 100mg daily Chronic neuropathic pain -Continue gabapentin 600mg tid Overactive bladder -Continue Ditropan 5 mg twice daily Discharge planning: Patient will be discharged back to home with follow-up at [facility] when appropriate, Duration of Face to Face Time (in minutes)::30 Floor Time (in minutes): 15 [x] Greater than 50% of patient time and floor time spent providing counseling and/or coordination of care Counseling provided with: [x] Patient [] Family [] Caregiver [] Diagnostic results/impressions and/or recommendation studies [] Risks and Benefits of Treatment Options [] Instruction for Management/Treatment and/or Follow-Up [] Risk Factor Reduction [x] Importance of Compliance with Treatment Options [x] Patient/Family/Caregiver Education [] Prognosis Coordination of Care provided with: [x] Nursing Staff [x] Treatment Team [x]Social Work [x] Physician(s) [] Family [] dean of graduate studies Justification for Continued Stay: [] A. Continued Danger to Self and/or Others [x] B. Continued behavior intolerable to patient or society [] C. High probability of A or B recurring if patient were discharged and immine nt re-hospitalization likely [] D. Recovery depends on use of modality, patient unwilling or unable to coop erate [] E. Major change of clinical conditions required extended treatment [] F. Patient has general medical condition requiring hospital care & due to psychiatric aspects, patient cannot be managed as well on non-psych unit [] [facility] Alternate Level of Care Danya Sauceda, MS3 * Vikas Souza RN - 06/22/2021 6:13 AM EST RN Shift Note [id number]: Report received from previous shift. Appeared to sleep throughout most of the night in no apparent distress. Respirat ions easy, even, unlabored. Position changes noted. Remains on 15 minute safety checks as ordered. Will continue to monitor and report for safety. Report given to oncoming RN. * Estela York RN - 06/21/2021 5:01 PM EST Pt is occasionally visible in the milieu. Minimally interacts with select peers. Napping at intervals, rouses easily. Mood is "ok" affect is low to even. No voi filiberto SI,HI or AVH. Wearing her mask as required, no s/s of covid. Cooperative and med compliant. Will continue to monitor closely for safety and support. * Juliet Duncan RN - 06/21/2021 10:20 AM EST Report received from previous shift. At the beginning of the shift pt was sleepi ng in room. Pt was sometimes visible in the milieu, socialized with selected peers and encou raged to participate in unit's groups. Pt denied any safety concerns. Pt ate mita akfast and took scheduled meds. Pt was given the menu, educated and encouraged t o make a choice for the next day. Pt ambulated independently, did ADL's also ind ependently, and was free of falls at this time. Pt was on 15 min checks and will continue to monitor for safety. * Estela York RN - 06/20/2021 6:13 PM EST Pt is more visible in the milieu, appropriately social with select peers. Attend ed group with participation with activities. Mood stated as "ok" affect slightly anxious but in control. Denies SI,HI and AVH. Wearing her facemask as required, no s/s of covid. Started on suboxone as ordered. Invega sustenna IM given as or dered. Cooperative and med compliant. Will continue to monitor closely for safet y and support. * Arcelia Altamirano MD - 06/20/2021 4:15 PM EST PSY Progress Note Subjective: CC:" I am OK Interval HX:Seen in office. Said she is feeling lot better then she did before a t this time. Thinking of going to rehab for Rock and meth. LAst using recently at this time Wanted to go back on In Invega Sustenna which she has not taken for over 1 year. Helped her in the past with the voices. No s/e while taking it at this time. Sa id her mood is good at this time. Taking all her medications . Patient Active Problem List Diagnosis Substance induced mood disorder Allergies: .No Known Allergies . Current Facility-Administered Medications: acetaminophen (TYLENOL) tablet 650 mg, 650 mg, Oral, Q6H PRN, LEA Bullock aluminum & magnesium hydroxide-simethicone (MAALOX PLUS) 200-200-20 MG/5ML oral suspension 30 mL, 30 mL, Oral, Q4H PRN, LEA Bullock benztropine (COGENTIN) tablet 1 mg, 1 mg, Oral, BID, LEA Bullock, 1 mg at 06/20/21 0748 bisacodyl (DULCOLAX) suppository 10 mg, 10 mg, Rectal, Q72H PRN, Alla Aguirre, MARIELA buprenorphine-naloxone (SUBOXONE) 8-2 MG per sublingual tablet 1 tablet, 8 mg of buprenorphine, Sublingual, BID, Arcelia Altamirano MD busPIRone (BUSPAR) tablet 10 mg, 10 mg, Oral, TID, Spencer Magdaleno MD, 1 0 mg at 06/20/21 1433 docusate sodium (COLACE) capsule 100 mg, 100 mg, Oral, Daily, LEA Bullock, 100 mg at 06/20/21 0749 FLUoxetine (PROZAC) capsule 30 mg, 30 mg, Oral, Daily, LEA Mckeon, 30 mg at 06/20/21 0749 gabapentin (NEURONTIN) capsule 600 mg, 600 mg, Oral, TID, Spencer Magdaleno MD, 600 mg at 06/20/21 1433 haloperidol (HALDOL) tablet 5 mg, 5 mg, Oral, BID, Spencer Magdaleno MD, 5 mg at 06/20/21 0749 hydrOXYzine (ATARAX) tablet 50 mg, 50 mg, Oral, Q6H PRN, LEA Barth magnesium hydroxide (MILK OF MAGNESIA) 400 MG/5ML oral suspension 30 mL, 30 mL, Oral, Daily PRN, LEA Bullock nicotine (NICODERM CQ) 21 MG/24HR 1 patch, 1 patch, Transdermal, Daily, Mariely Duquedergast, MARIELA, 1 patch at 06/20/21 1311 nicotine (NICORETTE) lozenge 2 mg, 2 mg, Mouth/Throat, Q2H PRN, Mariely baker, MARIELA, 2 mg at 06/20/21 1313 ondansetron (ZOFRAN-ODT) disintegrating tablet 4 mg, 4 mg, Oral, Q6H PRN , LEA Bullock oxybutynin (DITROPAN) tablet 5 mg, 5 mg, Oral, BID, LEA Bullock, 5 mg at 06/20/21 0749 paliperidone palmitate (INVEGA SUSTENNA) 234 MG/1.5ML extended-release i njection 234 mg, 234 mg, Intramuscular, Once, Arcelia Altamirano MD senna tablet 2 tablet, 2 tablet, Oral, Nightly PRN, Alla Aguirre NP topiramate (TOPAMAX) tablet 100 mg, 100 mg, Oral, Daily, LEA Barth, 100 mg at 06/20/21 0749 trazodone (DESYREL) tablet 50 mg, 50 mg, Oral, Nightly, LEA Escalante, 50 mg at 06/19/21 2365 Review Of Systems: Medical Review Of Systems: .Review of Systems Psychiatric/Behavioral: Positive for hallucinations. All other systems reviewed are negative Psychiatric Review Of Systems: sleep: no appetite changes: no weight changes: no energy/anergy: no interest/pleasure/anhedonia: no somatic symptoms: no libido: no anxiety/panic: no guilty/hopeless: no S.I.B.s/risky behavior: no any drugs: no alcohol: no Objective: . Vitals: 06/19/21 0201 06/19/21 1600 BP: 126/78 105/75 Pulse: 93 92 Resp: 16 16 Temp: 36.7 C (98.1 F) 36.9 C (98.4 F) SpO2: 98% 95% Mental Status Exam: .General Appearance: Patient is a overweight 36 y.o. female.She is dressed in w eather appropriate clothing. Behavior: Attitude: Patient is cooperative. Eye Contact: Eye contact is appropriate. Speech: Rate is normal. Volume is normal. Affect: Affect is euthymic and stable. Patient appears blunted and constricted w ith restricted range. Cognition: Patient is sedated. She is oriented to time and place. (look above for MSE button and delete this line) Gait: Muscle Tone: Labs: .No results for input(s): NA, K, CL, BICARBONATE, CALCIUM, GLUCOSE, BUN, CREATIN INE, BCR, LABOSMO, PROT, ALBUMIN, TBILI, ALKPHOS, AST, ALT, AGGREGATE, AGRATIO, GFRAA, GFRNONAA in the last 168 hours. .No results for input(s): HCT, HGB, MCH, MCHC, MCV, MPV, PLT, RDW,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 court and asked SW to contact them to inform them about the hospitalization. She will need a few days of stabilization and will di scharge back home to services with [facility]. Treatment Plan Stabilize on medications and group therapy Goals and Objectives Develop a plan to stay stable in the community Interventions Completed psychosocial assessment. Assessed for SW needs. Length of visit with patient: 60 minutes Signature: Heavenly Keller Date: June 19, 2021 * Treatment Plan - Maria Teresa Hinton RN - 06/19/2021 1:47 AM EST Psychiatric Treatment Plan Patient Cely Galindo 1985 Admit Date 06/19/2021 Treatment Plan Treatment Plan (Active) Problem: Psych Acuity Scoring Dates: Start: 06/19/21 Goal: Acuity Scoring Dates: Start: 06/19/21 Description: Acuity Scoring for Psych Problem: Psychosis Dates: Start: 06/19/21 Description: As evidenced by auditory hallucinations, visual hallucinations, de lusions, bizarre behavior, responding to internal stimuli, trouble concentrating , and inability to perform ADLs Goal: Reduce or eliminate psychotic symptoms Dates: Start: 06/19/21 Expected End: 06/26/21 Goal: Patient will comply with medication regimen Dates: Start: 06/19/21 Expected End: 06/26/21 Description: Patient will work with staff to learn medication education for ne w/unfamiliar medications. Intervention: Staff will offer medications as scheduled Frequency: Q Shift Dates: Start: 06/19/21 Description: Nurse on shift will document patient's acceptance and response to medications Intervention: Staff will identify the need for PRN medication Frequency: PRN Dates: Start: 06/19/21 Description: RN on shift will encourage patient to identify symptoms of increas ed agitation/irritability requiring medications Goal: Patient will verbalize a reduction in psychotic symptoms Dates: Start: 06/19/21 Expected End: 06/26/21 Description: Reduce internal stimuli from visual hallucinations and auditory ocampo llucinations Intervention: Staff will initiate reality based interactions Frequency: Daily Dates: Start: 06/19/21 Description: Nurse will provide re-assurance and orient patient to reality Intervention: Staff will encourage patient to attend groups to help provide dis traction Frequency: Daily Dates: Start: 06/19/21 Description: Patient should attend stress management group, relaxation group, c ommunication group, social work group, therapy group, and nursing group Goal: Patient will converse with staff for at least 2 minutes without being dis tracted by interference from internal stimuli Dates: Start: 06/19/21 Expected End: 06/26/21 Intervention: Staff will initiate conversation and document Frequency: Q Shift Dates: Start: 06/19/21 Description: Nurse will assess patient's ability to carry on a conversation wit shannan responding to internal stimuli Goal: Patient will not act on psychotic perceptions Dates: Start: 06/19/21 Expected End: 06/26/21 Intervention: Staff will maintain a safe and therapeutic environment Frequency: Q Shift Dates: Start: 06/19/21 Intervention: Staff will assist patient with interpersonal communication and in terpretation of events Frequency: Q Shift Dates: Start: 06/19/21 Description: Nurse on shift will monitor patient's interactions with peers Intervention: Staff will assess patient's behavior Frequency: Q Shift Dates: Start: 06/19/21 Description: Nurse will assess and document patient's behavior Problem: Substance Abuse/Withdrawal Dates: Start: 06/19/21 Description: 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 Goal: Abstain from the use of substances Dates: Start: 06/19/21 Expected End: 06/26/21 Goal: Patient will verbalize knowledge and risk of substance abuse Dates: Start: 06/19/21 Expected End: 06/26/21 Intervention: RN will educate patient on negative consequences of substance abu se Frequency: Q Shift Dates: Start: 06/19/21 Goal: Reduce and manage withdrawal symptoms Dates: Start: 06/19/21 Expected End: 06/26/21 Description: As evidenced by decreased or absence of restlessness, anxiety, debo vated BP/P, hand tremors, nausea, vomiting, psychomotor agitation, hallucination s, aggression/violent behaviors, suicidal ideation, and dysphoria Goal: Patient will complete a contract for safety with staff Dates: Start: 06/19/21 Expected End: 06/26/21 Description: Patient will verbalize ability to refrain from impulsive behavior and self-mutilation Intervention: RN will meet with patient at least once per shift to assess safet y Frequency: Q Shift Dates: Start: 06/19/21 Description: Nurse will monitor and record behavior. Intervention: Staff will monitor and document patient's behavior Frequency: Q Shift Dates: Start: 06/19/21 Description: RN, RT or OT will monitor and record behavior. Goal: Patient will demonstrate decreased aggressive or hostile behavior Dates: Start: 06/19/21 Expected End: 06/26/21 Description: Patient will not threaten peers/staff, destroy property, display v erbal abuse, start argument, strike, yell, or kick Intervention: Staff will give patient positive feedback for controlling aggress ion, fulfilling responsibilities, and expressing feelings appropriately Frequency: Q Shift Dates: Start: 06/19/21 Description: . Intervention: Staff will discuss alternative ways of expressing emotions and re leasing physical tension Frequency: Q Shift Dates: Start: 06/19/21 Intervention: Staff will encourage patient to seek out staff when he/she is bec oming upset Frequency: Q Shift Dates: Start: 06/19/21 Goal: Patient will establish and maintain physiological stability Dates: Start: 06/19/21 Expected End: 06/26/21 Description: Patient will have VS WNL, be free of nausea, be free of vomiting, and not display hand tremors Intervention: Staff will assess patients substance use history Frequency: Q Shift Dates: Start: 06/19/21 Description: RN will question patient to determine substance use history Intervention: Staff will administer PRN medication as ordered or as indicated b y withdrawal protocol Frequency: PRN Dates: Start: 06/19/21 Description: Nurse will monitor patient to determine need for PRN medications t o treat physiological symptoms Intervention: Staff will monitor patients vital signs and fluid/electroly te balance Frequency: Q Shift Dates: Start: 06/19/21 Goal: Patient will verbalize 2 effective coping skills Dates: Start: 06/19/21 Expected End: 06/26/21 Description: As evidenced by coping strategies, distraction techniques, relaxat ion techniques, socialization, and skill acquisition Intervention: Staff will assist patient with identifying stressors and triggers to substance use Frequency: Q Shift Dates: Start: 06/19/21 Intervention: Staff will encourage patient to attend groups Frequency: Q Shift Dates: Start: 06/19/21 Description: Patient should attend stress management group, relaxation group, c ommunication group, social work group, therapy group, and nursing group Intervention: Staff will provide 1:1 therapeutic communication and encourage th e use of coping skills Frequency: Q Shift Dates: Start: 06/19/21 Treatment Plan (Resolved) There are no resolved problems. Treatment Team: Attending Provider: Spencer Magdaleno MD; Registered Nurse: Jere Hinton RN I have reviewed and agree that the above treatment plan is appropriate for Zenaida Galindo. Signature: Maria Teresa Hinton Date: June 19, 2021 1:47 AM Associated attestation - Spencer Magdaleno MD - 06/19/2021 1:12 PM EST I have read and reviewed the treatment plan below. The pt's priamry condition, Substance induced mood disorder, was reviewed with t shavonne pt and is being addressed in numerous ways delineated below by RN, OT/PT, GAMBLING CASHIER , recreation therapist and MD. documented in this encounter Plan of Treatment Order Schedule Name Type Priority Associated Diag noses Continuous for 30 Days for 30 Days start ing 06/19/2021 until 06/19/2021 Consult to Assisted PET Rehab Routine Therapy-Rehab/Psych Health Maintenance Due Date Last Done Comments MMR Vaccines (1 of 1 - 1986 Standard series) Varicella Vaccines (1 of 1986 2 - 2-dose childhood series) COVID-19 Vaccine (1) 1990 Pneumococcal Vaccine: 1991 Pediatrics (0 to 5 Years) and At-Risk Patients (6 to 64 Years) (1 of 2 - PPSV23) DTaP,Tdap,and Td Vaccines 1992 06/15/2019 (1 - Tdap) HIV Screening 1998 Cervical Cancer Screening 2006 5 years Influenza Vaccine 05/01/2021 05/08/2020 HIB Vaccines Aged Out No longer eligible based on patient's age to complete this topic Hepatitis A Vaccines Aged Out No longer eligibl e based on patient's age to complete this topic Hepatitis B Vaccines Aged Out No longer eligibl e based on patient's age to complete this topic IPV Vaccines Aged Out No longer eligible based on patient's age to complete this topic documented as of this encounter Procedures Comments Procedure Name Priority Date/Time Associated Diag nosis EKG 12-LEAD - CMAXX 06/22/2021 REPORT 12:27 PM EST EKG 12-LEAD - CMAXX 06/22/2021 REPORT 12:27 PM EST EKG 12-LEAD Routine 06/22/2021 12:27 PM EST documented in this encounter Results * EKG 12-LEAD - CMAXX REPORT (06/22/2021 12:27 PM EST) Narrative * EKG 12-LEAD - CMAXX REPORT (06/22/2021 12:27 PM EST) Narrative * EKG 12 Lead (06/22/2021 12:27 PM EST) Specimen Narrative [facility] EKG - 06/22/2021 12:27 PM EST Ventricular Rate: 52 BPM Atrial Rate: 52 BPM P-R Interval: 154 ms QRS Duration: 92 ms Q-T Interval: 494 ms QTC Calculation(Bazett): 459 ms P [place]: 30 degrees R [place]: 29 degrees T [place]: 34 degrees : SINUS BRADYCARDIA : BORDERLINE PROLONGED QTC : T WAVE ABNORMALITY CANNOT RULE OUT ANTERIOR ISCHEMIA : ST ELEVATION POSSIBLY A NORMAL VARIANT ( EARLY REPOLARIZATION : ) PERICARDITIS OR MYOCARDIAL INJURY : ABNORMAL ECG : NO PREVIOUS ECGS AVAILABLE : Confirmed by Teddy Alfaro ([id number]) on 06/22/2021 5:07:11 PM Procedure Note Teddy Alfaro MD - 06/22/2021 Ventricular Rate: 52 BPM Atrial Rate: 52 BPM P-R Interval: 154 ms QRS Duration: 92 ms Q-T Interval: 494 ms QTC Calculation(Bazett): 459 ms P [place]: 30 degrees R [place]: 29 degrees T [place]: 34 degrees : SINUS BRADYCARDIA : BORDERLINE PROLONGED QTC : T WAVE ABNORMALITY CANNOT RULE OUT ANTERIOR ISCHEMIA : ST ELEVATION POSSIBLY A NORMAL VARIANT ( EARLY REPOLARIZATION : ) PERICARDITIS OR MYOCARDIAL INJURY : ABNORMAL ECG : NO PREVIOUS ECGS AVAILABLE : Confirmed by Teddy Alfaro ([id number]) on 06/22/2021 5:07:11 PM Performing Organization Address City/State/ZIP Code P dionne Number [facility] EKG documented in this encounter Visit Diagnoses Diagnosis Substance induced mood disorder - Prima ry Drug-induced mood disorder documented in this encounter Administered Medications Action Date Dose Rate Site Medication Order MAR Action 06/24/2021 9:04 AM EST 1 mg benztropine (COGENTIN) tablet 1 mg Given 1 mg, Oral, 2 Times Daily, First dose o n Tue06/19/21 at 0900, For 30 days 1 mg Given 06/23/2021 8:20 PM EST 1 mg Given 06/23/2021 8:27 AM EST bisacodyl (DULCOLAX) suppository 10 mg 10 mg, Rectal, Every 72 hours PRN, Constipation, Starting on Tue06/19/21 at 1449, For 30 days, Hold if patient has had BM within the past 2 days. 06/24/2021 9:03 AM EST 1 Film buprenorphine-naloxone (SUBOXONE) 8-2 MG Given per sublingual film 1 Film 1 Film (8 mg of buprenorphine), Sublingual, 2 Times Daily, First dose (after last modification) on Tue06/23/21 at 1715, For 7 days 1 Film Given 06/23/2021 5:50 PM EST 06/24/2021 9:04 AM EST 20 mg busPIRone (BUSPAR) tablet 20 mg Given 20 mg, Oral, Three Times Daily Standard, First dose (after last modification) on Tue06/22/21 at 2100, For 11 doses 20 mg Given 06/23/2021 8:20 PM EST 20 mg Given 06/23/2021 2:37 PM EST 06/24/2021 9:04 AM EST 100 mg docusate sodium (COLACE) capsule 100 mg Given 100 mg, Oral, Daily Standard, First dose on Tue06/19/21 at 0900, For 30 days 100 mg Given 06/23/2021 8:27 AM EST 100 mg Given 06/22/2021 7:52 AM EST 06/24/2021 9:04 AM EST 30 mg FLUoxetine (PROZAC) capsule 30 mg Given 30 mg, Oral, Daily Standard, First dos e on Tue06/19/21 at 0900, For 30 days 30 mg Given 06/23/2021 8:27 AM EST 30 mg Given 06/22/2021 7:51 AM EST 06/24/2021 11:27 AM EST 600 mg gabapentin (NEURONTIN) capsule 600 mg Given 600 mg, Oral, Three Times Daily Standard, Indications: Fibromyalgia Syndrome, First dose (after last modification) on Tue06/19/21 at 1200, For 89 doses 600 mg Given 06/24/2021 9:04 AM EST 600 mg Given 06/23/2021 8:20 PM EST 06/23/2021 10:39 AM EST 50 mg hydrOXYzine (ATARAX) tablet 50 mg Given 50 mg, Oral, Every 6 hours PRN, Anxiety, Sleep, Starting on Tue 1 at 0149, For 30 days 50 mg Given 06/22/2021 12:36 PM EST 06/24/2021 9:04 AM EST 1 patch Left Arm nicotine (NICODERM CQ) 21 MG/24HR 1 Patch patch Applied 1 patch, Transdermal, Administer over 2 4 Hours, Daily Standard, First dose (after last modification) on 06/20/21 at 1200, For 30 days 1 patch Right Arm Patch Applied 06/23/2021 8:30 AM EST 1 patch Left Arm Patch Applied 06/22/2021 7:53 AM EST 06/23/2021 10:39 AM EST 2 mg nicotine (NICORETTE) lozenge 2 mg Given 2 mg, Mouth/Throat, Every 2 hours PRN , Smoking cessation, Starting on 11/20/21 at 1107, For 30 days, Should not be chewed or swallowed; allow to dissolve slowly (~20-30 minutes) 2 mg Given 06/22/2021 1:26 PM EST 2 mg Given 06/22/2021 6:56 AM EST 06/24/2021 9:04 AM EST 5 mg oxybutynin (DITROPAN) tablet 5 mg Given 5 mg, Oral, 2 Times Daily, First dose o n Tue06/19/21 at 0900, For 30 days 5 mg Given 06/23/2021 8:19 PM EST 5 mg Given 06/23/2021 8:27 AM EST senna tablet 2 tablet 2 tablet, Oral, Nightly PRN, Constipation, Starting on Tue06/19/21 at 1449, For 30 days 06/24/2021 9:04 AM EST 100 mg topiramate (TOPAMAX) tablet 100 mg Given 100 mg, Oral, Daily Standard, First dose on Tue06/19/21 at 0900, For 30 days 100 mg Given 06/23/2021 8:27 AM EST 100 mg Given 06/22/2021 7:52 AM EST 06/23/2021 8:19 PM EST 50 mg trazodone (DESYREL) tablet 50 mg Given 50 mg, Oral, Nightly, First dose on Tue06/19/21 at 0230, For 30 days 50 mg Given 06/23/2021 1:42 AM EST 50 mg Given 06/21/2021 8:26 PM EST Action Date Dose Rate Site Medication Order MAR Action 06/20/2021 7:48 AM EST 1 tablet buprenorphine-naloxone (SUBOXONE) 8-2 MG Given per sublingual tablet 1 tablet 1 tablet (8 mg of buprenorphine), Sublingual, 2 Times Daily, First dose o n Tue06/19/21 at 0900, For 7 days 1 tablet Given 06/19/2021 9:57 PM EST 1 tablet Given 06/19/2021 8:33 AM EST 06/23/2021 9:26 AM EST 1 tablet buprenorphine-naloxone (SUBOXONE) 8-2 MG Given per sublingual tablet 1 tablet 1 tablet (8 mg of buprenorphine), Sublingual, 2 Times Daily, First dose (after last modification) on Tue06/20/21 at 1700, For 11 doses 1 tablet Given 06/22/2021 8:06 AM EST 1 tablet Given 06/21/2021 5:10 PM EST 06/19/2021 8:33 AM EST 10 mg busPIRone (BUSPAR) tablet 10 mg Given 10 mg, Oral, 2 Times Daily, First dose on Tue06/19/21 at 0900, For 30 days 06/20/2021 2:33 PM EST 10 mg busPIRone (BUSPAR) tablet 10 mg Given 10 mg, Oral, Three Times Daily Standard, First dose (after last modification) on Tue06/19/21 at 1400, For 7 days 10 mg Given 06/20/2021 7:49 AM EST 10 mg Given 06/19/2021 9:55 PM EST 06/22/2021 3:09 PM EST 15 mg busPIRone (BUSPAR) tablet 15 mg Given 15 mg, Oral, Three Times Daily Standard, First dose (after last modification) on Tue06/20/21 at 2100, For 17 doses 15 mg Given 06/22/2021 7:52 AM EST 15 mg Given 06/21/2021 8:26 PM EST 06/19/2021 8:33 AM EST 600 mg gabapentin (NEURONTIN) capsule 600 mg Given 600 mg, Oral, Three Times Daily Standard, Indications: Alcohol Withdrawal Syndrome, First dose on Tue06/19/21 at 0900, For 30 days 06/22/2021 7:52 AM EST 5 mg haloperidol (HALDOL) tablet 5 mg Given 5 mg, Oral, 2 Times Daily, First dose (after last modification) on Tue06/19/21 at 2100, For 59 doses 5 mg Given 06/21/2021 8:26 PM EST 5 mg Given 06/21/2021 8:01 AM EST 06/19/2021 8:33 AM EST 6 mg haloperidol (HALDOL) tablet 6 mg Given 6 mg, Oral, 2 Times Daily, First dose o n Tue06/19/21 at 0900, For 30 days 06/20/2021 7:48 AM EST 2 mg nicotine (NICORETTE) lozenge 2 mg Given 2 mg, Mouth/Throat, Every 2 hours PRN , Smoking cessation, Starting on Tue06/19/21 at 0151, For 30 days, Should not be chewed or swallowed; allow to dissolve slowly (~20-30 minutes) 06/20/2021 5:40 PM EST 234 mg paliperidone palmitate (INVEGA SUSTENNA) Given 234 MG/1.5ML extended-release injection 234 mg 234 mg, Intramuscular, Once, On Tue06/20/21 at 1700, For 1 dose documented in this encounter Active and Recently Administered Medications Times are shown in EST. 06/23/2021 06/24/2021 Medication Order 06/22/2021 0142 (Given - Provider: Jewels De Jesus)0827 (Given - Provider: Heather Mehta RN)2019 (Given - Provider: Vikas Souza RN) 0904 (Given - Provider: Juliet Duncan, ARMANDO )2100 (Due) benztropine (COGENTIN) tablet 1 mg 0752 (Given - 1 mg, Oral, 2 Times Daily, First dose on Provider: Magdalena Ayon Tue06/19/21 at 0900, For 30 days ARMANDO Mehta) 1750 (Given - Provider: Heather aden RN) 0903 (Given - Provider: Juliet Duncan RN )1700 (Due) buprenorphine-naloxone (SUBOXONE) 8-2 M G per sublingual film 1 Film 1 Film (8 mg of buprenorphine), Sublingual, 2 Times Daily, First dose (after last modification) on Tue06/23/21 at 1715, For 7 days 0926 (Given - Provider: Heather aden RN) buprenorphine-naloxone (SUBOXONE) 8-2 MG 0806 (Given - per sublingual tablet 1 tablet Provider: Heather Ayon (CANCELED) ARMANDO Mehta)1854 1 tablet (8 mg of buprenorphine), (Not Given - Sublingual, 2 Times Daily, First dose Provider: Sindhu Bernal (after last modification) on Sat ARMANDO Mehta - 06/20/21 at 1700, For 11 doses Reason: Patient sedated/sleeping) busPIRone (BUSPAR) tablet 15 mg 0752 (Given - (CANCELED) Provider: Heather Ayon 15 mg, Oral, Three Times Daily ARMANDO Mehta)1509 Standard, First dose (after last (Given - Provider: modification) on Tue06/20/21 at 2100, Heather santos, For 17 doses RN) 0142 (Given - Provider: Jewels De Jesus)0827 (Given - Provider: Heather Mehta RN)1437 (Given - Provider: Margareth David RN)2019 (Given - Provider: Vikas Souza RN) 0904 (Given - Provider: Juliet Duncan RN )1400 (Due)2100 (Due) busPIRone (BUSPAR) tablet 20 mg 20 mg, Oral, Three Times Daily Standard, First dose (after last modification) on Tue06/22/21 at 2100, For 11 doses 08 (Given - Provider: Heather aden RN) 0904 (Given - Provider: Juliet Duncan, ARMANDO ) docusate sodium (COLACE) capsule 100 mg 0752 (Given - 100 mg, Oral, Daily Standard, First Provider: Georgiana a M dose on Tue06/19/21 at 0900, For 30 ARMANDO Mehta) days 826 (Given - Provider: Heather aden RN) 09 (Given - Provider: Juliet Duncan RN ) FLUoxetine (PROZAC) capsule 30 mg 0751 (Given - 30 mg, Oral, Daily Standard, First dose Provider: Magdalena Ayon on Tue06/19/21 at 0900, For 30 days ARMANDO Mehta) 014 (Given - Provider: Jewels De Jesus)08 (Given - Provider: Heather Mehta RN)1151 (Given - Provider: Heather Mehta RN)2019 (Given - Provider: Vikas Souza RN) 09 (Given - Provider: Juliet Duncan RN )1127 (Given - Provider: Juliet Duncan RN)2100 (Due) gabapentin (NEURONTIN) capsule 600 mg 0751 (Given - 600 mg, Oral, Three Times Daily Provider: Heather Ayon Standard, Indications: Fibromyalgia ARMANDO Mehta)113 1 Syndrome, First dose (after last (Given - Provider: modification) on Tue06/19/21 at 1200, Heather Almazant ingkeiko, For 89 doses RN) haloperidol (HALDOL) tablet 5 mg 0752 (Given - (CANCELED) Provider: Heather Ayon 5 mg, Oral, 2 Times Daily, First dose ARMANDO Mehta) (after last modification) on Tue06/19/21 at 2100, For 59 doses 0826 (Patch Removed - Provider: Heather Mehta RN)0830 (Patch Applied - Provider: Heather Mehta RN) 0903 (Patch Removed - Provider: Juliet Duncan RN)0904 (Patch Applied - Provider: Juliet Duncan RN) nicotine (NICODERM CQ) 21 MG/24HR 1 0751 (Patch Dae angela patch - Provider: Heather Ayon 1 patch, Transdermal, Administer over 24 Jewels Mehta)0753 Hours, Daily Standard, First dose (Patch Applied - (after last modification) on Sat Provider: Heather Ayon 06/20/21 at 1200, For 30 days ARMANDO Mehta) 014 (Given - Provider: Jewels De Jesus)08 (Given - Provider: Heather Mehta RN)2018 (Given - Provider: Vikas Souza RN) 09 (Given - Provider: Juliet Duncan RN )2099 (Due) oxybutynin (DITROPAN) tablet 5 mg 0752 (Given - 5 mg, Oral, 2 Times Daily, First dose on Provider: Magdalena Ayon Tue06/19/21 at 0900, For 30 days ARMANDO Mehta) 08 (Given - Provider: Heather aden RN) 09 (Given - Provider: Juliet Duncan RN ) topiramate (TOPAMAX) tablet 100 mg 0752 (Given - 100 mg, Oral, Daily Standard, First Provider: Georgiana Ayon dose on Tue06/19/21 at 0900, For 30 ARMANDO Mehta) days 141 (Given - Provider: Jewels De Jesus)2018 (Given - Provider: Vikas Souza RN) 2199 (Due) trazodone (DESYREL) tablet 50 mg 50 mg, Oral, Nightly, First dose on Tue06/19/21 at 0230, For 30 days 06/23/2021 06/24/2021 Medication Order 06/22/2021 acetaminophen (TYLENOL) tablet 650 mg 650 mg, Oral, Every 6 hours PRN, All Levels of Pain (Pain Scale Score 1-10), Starting on Tue06/19/21 at 0151, For 3 0 days, Maximum daily dose of acetaminophen is 3,000 mg from all sources in 24 hrs. aluminum & magnesium hydroxide-simethicone (MAALOX PLUS) 200-200-20 MG/5ML oral suspension 30 mL 30 mL, Oral, Every 4 hours PRN, Heartburn, Indigestion, MDD 4, Starting on Tue06/19/21 at 0149, For 30 days, Shake well before using Max of 4 doses per 24-hour period bisacodyl (DULCOLAX) suppository 10 mg 10 mg, Rectal, Every 72 hours PRN, Constipation, Starting on Tue06/19/21 at 1449, For 30 days, Hold if patient has had BM within the past 2 days. 1039 (Given - Provider: Carla Gold LPN) hydrOXYzine (ATARAX) tablet 50 mg 1236 (Given - 50 mg, Oral, Every 6 hours PRN, Provider: Heather Ayon Anxiety, Sleep, Starting on Tue06/19/21 Jewels Mehta) at 0149, For 30 days magnesium hydroxide (MILK OF MAGNESIA) 400 MG/5ML oral suspension 30 mL 30 mL, Oral, Daily PRN, Constipation, Starting on Tue06/19/21 at 0149, For 3 0 days, Shake well before using If serum creatinine > 2 notify provider before administering 1039 (Given - Provider: Carla Gold LPN) nicotine (NICORETTE) lozenge 2 mg 0656 (Given - 2 mg, Mouth/Throat, Every 2 hours PRN, Provider: Keiko Ayon Smoking cessation, Starting on Pavel Briceño RN)1326 06/20/21 at 1107, For 30 days, Should (Given - Provi mckenzie: not be chewed or swallowed; allow to Golden Dc RN) dissolve slowly (~20-30 minutes) ondansetron (ZOFRAN-ODT) disintegrating tablet 4 mg 4 mg, Oral, Every 6 hours PRN, Nausea , Starting on Tue06/19/21 at 0149, For 3 0 days, Dissolve on tongue. senna tablet 2 tablet 2 tablet, Oral, Nightly PRN, Constipation, Starting on Tue06/19/21 at 1449, For 30 days documented in this encounter Care Teams Start Date End Date [employer] Officer Relationship Specialty 06/01/21 Julito Hanna MD PCP - General [address] [id number] documented as of this encounter
--- OUTSIDE RECORDS SUMMARY | 2021-07-09 09:00 | CCD ---
Author Author [facility] Organization [facility] Address Unknown Phone Unavailable Care Team Providers Care Vegetable Sorter Name Role Phone Vicki Hanna MD Unavailable [...] Unavailable Unavailable Vicki Hanna MD Unavailable Unavailable Magdaleno, P Spencer Unavailable Magdaleno, P Spencer Unavailable DO Kena Chowdhury DO Unavailable Unavailable [...] Unavailable ABI SANCHEZ MD Unavailable Unavailable Green VEHICLE FARE COLLECTOR VEHICLE FARE COLLECTOR, Gina Unavailable Unavailable Green VEHICLE FARE COLLECTOR VEHICLE FARE COLLECTOR, Gina Unavailable Unavailable Green VEHICLE FARE COLLECTOR VEHICLE FARE COLLECTOR, Gina Unavailable Unavailable Green VEHICLE FARE COLLECTOR VEHICLE FARE COLLECTOR, Gina Unavailable Unavailable Green VEHICLE FARE COLLECTOR VEHICLE FARE COLLECTOR, Gina Unavailable Unavailable Neli Huntley MD Unavailable Unavailable [...] Unavailable Unavailable ASAR, ANNELISE BARON Unavailable Unavailable Dwello PA PA, Latanya Unavailable Unavailable Dwello PA PA, Latanya Unavailable Unavailable Dwello PA PA, Latanya Unavailable Unavailable Dwello PA PA, Latanya Unavailable Unavailable Dwello PA PA, Latanya Unavailable Unavailable Dwello PA PA, Latanya Unavailable Unavailable Dwello PA PA, Latanya Unavailable Unavailable Asar, Hasanali Annelise MD Unavailable Unavailable Magdalena MAGDALENO Unavailable Unavailable Katherine Huntley MD Unavailable Unavailable [...] Unavailable Unavailable Vicki Hanna MD Unavailable Unavailable Hanna D Julito MD Unavailable Unavailable Hanna, D [...] is protected by Article 27-F of the [facility] Public Health law. If you continue you may have access to information: Regarding HIV / AIDS; Provided by facilities licensed or operated by the [facility] Office of Mental Health; or Provided by the [facility] Office for People With Developmental Disabilities. If such information is present, then the following [facility] mandated warning applies: This information [...] Data Source(s ) Propensity to adverse reactions NO KNOWN ALLERGIES NO KNOWN ALLERGIES [facility] Propensity to adverse reactions Propensity to adverse reacti ons No Known Drug Allergies [facility] Family History Family Member Name Family Member Gender Family Member Status Date o f Status Description Data Source(s) Unknown Male Diagnosis 01/22/2014 12:00:00 AM EDT [facility] ([facility]) Encounters Encounter Providers Location Date Indications Data Source(s ) Inpatient Attender: SPENCER Henderson er: Spencer MagdalenoAdmitter: SPENCER MAGDALENOReferrer: SPENCER MAGDALENO [id number] 06/19/2021 01:31:00 AM EST - 06/24/2021 11:51:00 AM [facility] Patient discharged. Julito Hanna MD: [address] [place] [phone], Ph. Attender: Julito Hanna MD [facility] Medical 05/13/2021 12:00:00 AM EDT [facility] ([facility]) Attender: Carolina Huntley MD [facility] 0 04/14/2021 01:46:00 PM EDT - 04/14/2021 01:46:00 PM EDT [facility] ([facility]) Preadmit Attender: Dorie Huntley MD [facility] 0 02/23/2021 12:25:00 AM EDT - 02/23/2021 12:25:00 AM EDT [facility] Discharge cancelled. Disregard status an d discharged date. Inpatient Attender: Annelise Savage nder: ANNELISE GRAY MDAdmitter: ANNELISE GRAY MD [facility] 01/27/2021 01:41:00 PM EDT - 02/24/2021 10:00:00 AM EDT PSYCHOACTIVE SUBSTANCE DEPENDENCE [facility] PSYCHOACTIVE SUBSTANCE DEPENDENCE Patient discharged. Inpatient Attender: Kena Chowdhury DOAdmitter: Raul Chowdhury DO SURG-MED 01/14/2021 10:13:00 AM EDT - 01/18/2021 12:43:00 PM EDT [facility] Patient discharged. Inpatient Attender: Kena Chowdhury DOAdmitter: Raul magdalena [place] SURG-MED 01/14/2021 10:13:00 AM EDT - 01/18/2021 12:43:00 PM EDT [facility]. V Attender: Kena Chowdhury DOAdmitter: Raul Chowdhury DO SURG-MED 01/13/2021 05:23:00 PM EDT [facility] Patient admitted. Outpatient Attender: ABI SANCHEZ MD SURG-LAB 01/13/2021 04:01: 00 PM EDT [facility] Attender: Carolina Jimenez 0 11/03/2020 11:58:00 AM EDT - 11/03/2020 11:58:00 AM EDT [facility] ([facility]) Attender: Carolina Jimenez 0 10/15/2020 02:33:00 PM EDT - 10/15/2020 02:33:00 PM EDT [facility] ([facility]) Attender: Carolina Hernández 03:02:00 PM EDT - 10/13/2020 03:02:00 PM EDT [facility] ([facility]) Attender: Carolina Hernández 11/2020 01:36:00 PM EST - 10/03/2020 01:36:00 PM EST [facility] ([facility]) Attender: Carolina Jimenez 0 09/26/2020 10:53:00 AM EST - 09/26/2020 10:53:00 AM EST [facility] ([facility]) Attender: Gina France NP VEHICLE FARE COLLECTOR MARELY Hernández 0 09/25/2020 09:16:00 AM EST - 09/25/2020 09:16:00 AM EST Contact with and (suspected) exposure to viral hepatitisUnspecified viral hepatitis C without hepatic coma [facility] ([facility]) Contact with and (suspected) exposure to viral hepatitis Unspecified viral hepatitis C without he patic coma Attender: Gina France VEHICLE FARE COLLECTOR VEHICLE FARE COLLECTOR PPNCSAIDA Adams 0 09/22/2020 01:14:00 PM EST - 09/22/2020 01:14:00 PM EST Trichomonal vulvovaginitis [facility] ([facility]) Trichomonal vulvovaginitis OutpatientOFFICE VISIT, EST Attender: Gina France VEHICLE FARE COLLECTOR VEHICLE FARE COLLECTOR PPESTHERSAIDA aPintingAdams 09/15/2020 02:45:00 PM EST - 09/15/2020 02:45:00 [...] result negative [facility] ([facility]) Other specified noninflammatory disorder [...] PM EST [facility] ([facility]) Attender: Latanya Hernández 04/2021 03:58:00 PM EST - 09/09/2020 03:58:00 PM EST [facility] ([facility]) Outpatient Attender: Julito PASTRANA 05/16/2020 04:01:01 PM EDT [facility] Outpatient Attender: Julito Hanna MD 05/16/2020 03:47:00 PM EDT [facility] Inpatient Attender: Annelise Gray MDAtte nder: ANNELISE GRAY MDAdmitter: ANNELISE GRAY MDConsultant: ANNELISE GRAY MDConsultant: Annelise Gray MD [facility] 04/16/2020 10:19:00 AM EDT - 05/14/2020 11:45:00 AM EDT PSYCHOACTIVE SUBSTANCE DEPENDENCE [facility] PSYCHOACTIVE SUBSTANCE DEPENDENCE Patient discharged. Medications Medication Brand Name Start Date Product Form Dose Route Admi nistrative Instructions Pharmacy Instructions Status Indications Reaction Description Data Source(s) 2-0.5 mg 07/01/2021 12:00:00 AM EST film 7 PLACE ONE FILM UNDER THE TONGUE EVERY MORNING MAXIMUM DAILY DOSE = [address] ONE FILM UNDER THE TONGUE EVERY MORNING MAXIMUM DAILY DOSE = 1 FILM SOLD: 07/05/2021 [facility] 8-2 mg 07/01/2021 12:00:00 AM EST film 14 PLACE ONE FILM UNDER THE TONGUE TWICE A DAY MAXIMUM DAILY DOSE = [address] ONE FILM UNDER THE TONGUE TWICE A DAY MAXIMUM DAILY DOSE = 2 FILMS SOLD: 07/05/2021 [facility] 20 mg 07/01/2021 12:00:00 AM EST capsule 10 TAKE ONE CAPSULE BY MOUTH EVERY MORNING TAKE ONE CAPSULE BY MOUTH EVERY MORNING SOLD: 07/05/2021 [facility] 10 mg 06/26/2021 12:00:00 AM EST capsule 90 TAKE THREE CAPSULES BY MOUTH EVERY DAY TAKE THREE CAPSULES BY MOUTH EVERY DAY SOLD: 06/29/2021 [facility] Fluoxetine 10 MG Oral Capsule FLUoxetine HCl 10 MG Ora l Capsule (PROZAC) FLUoxetine HCl 10 MG Oral Capsule (PROZAC) 06/25/2021 12:00:00 AM EST 30 mg Oral active Take 3 capsules by m outh daily [facility] 50 mg 06/24/2021 12:00:00 AM EST tablet 30 TAKE ONE TABLET BY MOUTH IN THE EVENING TAKE ONE TABLET BY MOUTH IN THE EVENING SOLD: 06/26/2021 [facility] buspirone hydrochloride 10 MG Oral Table t busPIRone HCl 10 MG Oral Tablet (BUSPAR) busPIRone HCl 10 MG Oral Tablet (BUSPAR) 06/24/2021 12:00:00 AM EST 20 mg Oral active Take 2 tablets by mouth Three times daily [facility] benztropine mesylate 1 MG Oral Tablet Be nztropine Mesylate 1 MG Oral Tablet (COGENTIN) Benztropine Mesylate 1 MG Oral Tablet (COGENTIN) 06/24 12:00:00 AM EST 1 mg Oral active Take 1 tablet by mouth Two Times Daily [facility] topiramate 100 MG Oral Tablet Topiramate 100 MG Oral T ablet (TOPAMAX) Topiramate 100 MG Oral Tablet (TOPAMAX) 06/24/2021 12:00:00 AM EST 100 mg Ora l active Take 1 tablet by mouth daily [facility] Trazodone Hydrochloride 50 MG Oral Table t traZODone HCl 50 MG Oral Tablet (DESYREL) traZODone HCl 50 MG Oral Tablet (DESYREL) 06/24/2021 12:00:0 0 AM EST 50 mg Oral active Take 1 tablet by mouth nightly [facility] 1 mg 06/24/2021 12:00:00 AM EST tablet 60 TAKE ONE TABLET BY MOUTH TWICE A DAY TAKE ONE TABLET BY MOUTH TWICE A DAY SOLD: 06/26/2021 [facility] buspirone hydrochloride 10 MG Oral Tablet BUSPIRONE HCL 06/24/2021 12:00:00 AM EST tablet 180 TAKE TWO TABLETS BY MOUTH TH REE TIMES A DAY TAKE TWO TABLETS BY MOUTH THREE TIMES A DAY SOLD: 06/26/2021 [facility] 100 mg 06/24/2021 12:00:00 AM EST tablet 30 TAKE ONE TABLET BY MOUTH EVERY DAY TAKE ONE TABLET BY MOUTH EVERY DAY SOLD: 06/26/2021 [facility] Buprenorphine 8 MG / Naloxone 2 MG Oral Strip buprenorphine-naloxone (SUBOXONE) 8-2 MG per sublingual film 1 Film buprenorphine-naloxone (SUBOXONE) 8-2 MG per sublingual film 1 Film 06/23/2021 05:15:00 PM EST Sublingual active 1 Film (8 mg of buprenorphine), Sublingual, 2 Times Daily, First dose (after last modification) on Tue06/23/21 at 1715, For 7 days [facility] Medication administered onsite buspirone hydrochloride 10 MG Oral Tablet busPIRone (B USPAR) tablet 20 mg busPIRone (BUSPAR) tablet 20 mg 06/22/2021 09:00:00 PM EST 20 mg O ral active 20 mg, Oral, Three Times Daily Standard, First dose (after last modification) on 06/22/21 at 2100, For 11 doses [facility] Medication administered onsite 10 mg 06/21/2021 12:00:00 AM EST capsule 10 TAKE ONE CAPSULE BY MOUTH EVERY MORNING TAKE ONE CAPSULE BY MOUTH EVERY MORNING SOLD: 06/26/2021 [facility] buspirone hydrochloride 15 MG Oral Tablet busPIRone (B USPAR) tablet 15 mg busPIRone (BUSPAR) tablet 15 mg 06/20/2021 09:00:00 PM EST 15 mg O ral aborted 15 mg, Oral, Three Times Daily Standard, First dose (after last modification) on 06/20/21 at 2100, For 17 doses [facility] Medication administered onsite 1.5 ML paliperidone palmitate 156 MG/ML Prefilled Syringe paliperidone palmitate (INVEGA SUSTENNA) 234 MG/1.5ML extended-release injection 234 mg paliperidone palmitate (INVEGA SUSTENNA) 234 MG/1.5ML extended-release injection 234 mg 06/20/2021 05:00:00 PM EST 234 mg Intramuscular complet ed 234 mg, Intramuscular, Once, On 06/20/21 at 1700, For 1 dose [facility] Medication administered onsite Buprenorphine 8 MG / Naloxone 2 MG Subli ngual Tablet buprenorphine-naloxone (SUBOXONE) 8-2 MG per sublingual tablet 1 tablet buprenorphine-naloxone (SUBOXONE) 8-2 MG per sublingual tablet 1 tablet 06/20/2021 05:00:00 PM EST Sublingual aborted 1 tablet (8 mg of buprenorphine), Sublingual, 2 Times Daily, First dose (after last modification) on 06/20/21 at 1700, For 11 doses [facility] Medication administered onsite 24 HR Nicotine 0.875 MG/HR Transdermal P atch nicotine (NICODERM CQ) 21 MG/24HR 1 patch nicotine (NICODERM CQ) 21 MG/24HR 1 patch 06/20/2021 12:00:00 PM EST 1 {patch} Transdermal active 1 patch, Transdermal, Administer over 24 Hours, Daily Standard, First dose (after last modification) on 06/20/21 at 1200, For 30 days [facility] Medication administered onsite Nicotine 2 MG Oral Lozenge nicotine (NICORETTE) lozeng e 2 mg nicotine (NICORETTE) lozenge 2 mg 06/20/2021 11:07:01 AM EST 2 mg Mouth/Th roat active 2 mg, Mouth/Throat, Every 2 hours PRN, Smoking cessation, Starting on Tue06/20/21 at 1107, For 30 days
Should not be chewed or swallowed; allow to dissolve slowly (~20-30 minutes)
[facility] Medication administered onsite Haloperidol 5 MG Oral Tablet haloperidol (HALDOL) tabl et 5 mg haloperidol (HALDOL) tablet 5 mg 06/19/2021 09:00:00 PM EST 5 mg Oral aborted 5 mg, Oral, 2 Times Daily, First dose (after last modification) on Tue06/19/21 at 2100, For 59 doses [facility] Medication administered onsite sennosides, HALFWAY 8.6 MG Oral Tablet senna tablet 2 tablet sen na tablet 2 tablet 06/19/2021 02:49:34 PM EST 2 {tbl} Oral active 2 tablet, Oral, Nightly PRN, Constipation, Starting on Tue06/19/21 at 1449, For 30 days [facility] Medication administered onsite Bisacodyl 10 MG Rectal Suppository bisacodyl (DULCOLAX ) suppository 10 mg bisacodyl (DULCOLAX) suppository 10 mg 06/19/2021 02:49:34 PM EST 10 mg Rectal active 10 mg, Rectal, Every 72 hours PRN, Constipation, Starting on Tue06/19/21 at 1449, For 30 days
Hold if patient has had BM within the past 2 days.
[facility] Medication administered onsite buspirone hydrochloride 10 MG Oral Tablet busPIRone (B USPAR) tablet 10 mg busPIRone (BUSPAR) tablet 10 mg 06/19/2021 02:00:00 PM EST 10 mg O ral aborted 10 mg, Oral, Three Times Daily Standard, First dose (after last modification) on Tue06/19/21 at 1400, For 7 days [facility] Medication administered onsite gabapentin 300 MG Oral Capsule gabapentin (NEURONTIN) capsule 600 mg gabapentin (NEURONTIN) capsule 600 mg 06/19/2021 12:00:00 PM EST 600 mg Oral active Fibromyalgia Syndrome 600 mg, Oral, Three Times D aily Standard, Indications: Fibromyalgia Syndrome, First dose (after last modification) on Tue06/19/21 at 1200, For 89 doses [facility] Fibromyalgia Syndrome Medication administered onsite Docusate Sodium 100 MG Oral Capsule docusate sodium (C OLACE) capsule 100 mg docusate sodium (COLACE) capsule 100 mg 06/19/2021 09:00:00 AM EST 100 mg Oral active 100 mg, Oral, Daily Standard, First dose on Tue06/19/21 at 0900, For 30 days [facility] Medication administered onsite buspirone hydrochloride 10 MG Oral Tablet busPIRone (B USPAR) tablet 10 mg busPIRone (BUSPAR) tablet 10 mg 06/19/2021 09:00:00 AM EST 10 mg O ral aborted 10 mg, Oral, 2 Times Daily, First dose on Tue06/19/21 at 0900, For 30 days [facility] Medication administered onsite gabapentin 300 MG Oral Capsule gabapentin (NEURONTIN) capsule 600 mg gabapentin (NEURONTIN) capsule 600 mg 06/19/2021 09:00:00 AM EST 600 mg Oral aborted Alcohol Withdrawal Syndrome 600 mg, Oral, Three Times Daily Standard, Indications: Alcohol Withdrawal Syndrome, First dose on Tue06/19/21 at 0900, For 30 days [facility] Alcohol Withdrawal Syndrome Medication administered onsite FLUoxetine (PROZAC) capsule 30 mg 06/19/2021 09:00:00 AM EST 30 mg Oral active 30 mg, Oral, Daily Standard, First dose on Tue06/19/21 at 0900, For 30 days [facility] Medication administered onsite Oxybutynin chloride 5 MG Oral Tablet oxybutynin (DITRO PEDRAZA) tablet 5 mg oxybutynin (DITROPAN) tablet 5 mg 06/19/2021 09:00:00 AM EST 5 mg Oral active 5 mg, Oral, 2 Times Daily, First dose on Tue06/19/21 at 0900, For 30 days [facility] Medication administered onsite haloperidol (HALDOL) tablet 6 mg 06/19/2021 09:00:00 AM EST 6 mg Oral aborted 6 mg, Oral, 2 Times Daily, First dose on Tue06/19/21 at 0900, For 30 days [facility] Medication administered onsite topiramate 100 MG Oral Tablet topiramate (TOPAMAX) tab let 100 mg topiramate (TOPAMAX) tablet 100 mg 06/19/2021 09:00:00 AM EST 100 mg Oral active 100 mg, Oral, Daily Standard, First dose on Tue06/19/21 at 0900, For 30 days [facility] Medication administered onsite Buprenorphine 8 MG / Naloxone 2 MG Subli ngual Tablet buprenorphine-naloxone (SUBOXONE) 8-2 MG per sublingual tablet 1 tablet buprenorphine-naloxone (SUBOXONE) 8-2 MG per sublingual tablet 1 tablet 06/19/2021 09:00:00 AM EST Sublingual aborted 1 tablet (8 mg of buprenorphine), Sublingual, 2 Times Daily, First dose on Tue06/19/21 at 0900, For 7 days [facility] Medication administered onsite benztropine mesylate 1 MG Oral Tablet benztropine (COG ENTIN) tablet 1 mg benztropine (COGENTIN) tablet 1 mg 06/19/2021 09:00:00 AM EST 1 mg Oral active 1 mg, Oral, 2 Times Daily, First dose on Tue06/19/21 at 0900, For 30 days [facility] Medication administered onsite Trazodone Hydrochloride 50 MG Oral Tablet trazodone (D ESYREL) tablet 50 mg trazodone (DESYREL) tablet 50 mg 06/19/2021 02:30:00 AM EST 50 mg Oral active 50 mg, Oral, Nightly , First dose on Tue06/19/21 at 0230, For 30 days [facility] Medication administered onsite Nicotine 2 MG Oral Lozenge nicotine (NICORETTE) lozeng e 2 mg nicotine (NICORETTE) lozenge 2 mg 06/19/2021 01:51:30 AM EST 2 mg Mouth/Th roat aborted 2 mg, Mouth/Throat, Every 2 hours PRN, Smoking cessation, Starting on Tue06/19/21 at 0151, For 30 days
Should not be chewed or swallowed; allow to dissolve slowly (~20-30 minutes)
[facility] Medication administered onsite Acetaminophen 325 MG Oral Tablet acetaminophen (TYLENO L) tablet 650 mg acetaminophen (TYLENOL) tablet 650 mg 06/19/2021 01:51:28 AM EST 65 0 mg Oral active 650 mg, Oral, E very 6 hours PRN, All Levels of Pain (Pain Scale Score 1-10), Starting on Tue06/19/21 at 0151, For 30 days
Maximum daily dose of acetaminophen is 3,000 mg from all sources in 24 hrs.
[facility] Medication administered onsite Aluminum Hydroxide 40 MG/ML / Magnesium Hydroxide 40 MG/ML / Simethicone 4 MG/ML Oral Suspension aluminum & magnesium hydroxide-simethicone (MAALOX PLUS) 200-200-20 MG/5ML oral suspension 30 mL aluminum & magnesium hydroxide- simethicone (MAALOX PLUS) 200-200-20 MG/5ML oral suspension 30 mL 06/19/2021 01:49:45 AM EST 30 mL Oral active 30 mL, Oral, Every 4 hours PRN, Heartburn, Indigestion, MDD 4, Starting on Tue06/19/21 at 0149, For 30 days
Shake well before using Max of 4 doses per 24-hour period
[facility] Medication administered onsite Magnesium Hydroxide 80 MG/ML Oral Suspen nancy magnesium hydroxide (MILK OF MAGNESIA) 400 MG/5ML oral suspension 30 mL magnesium hydroxide (MILK OF MAGNESIA) 400 MG/5ML oral suspension 30 mL 06/19/2021 01:49:45 AM EST 30 mL Oral active 30 mL, Oral, D aily PRN, Constipation, Starting on Tue06/19/21 at 0149, For 30 days
Shake well before using If serum creatinine > 2 notify provider before administering
[facility] Medication administered onsite Hydroxyzine Hydrochloride 50 MG Oral Tablet hydrOXYzin e (ATARAX) tablet 50 mg hydrOXYzine (ATARAX) tablet 50 mg 06/19/2021 01:49:45 AM EST 50 mg Oral active 50 mg, Oral, Every 6 hours PRN, Anxiety, Sleep, Starting on Tue06/19/21 at 0149, For 30 days [facility] Medication administered onsite Ondansetron 4 MG Disintegrating Oral Tab let ondansetron (ZOFRAN-ODT) disintegrating tablet 4 mg ondansetron (ZOFRAN-ODT) disintegrating tablet 4 mg 06/19/2021 01:49:45 AM EST 4 mg Oral active 4 mg, Oral, Every 6 hours PRN, Nausea, Starting on Tue06/19/21 at 0149, For 30 days
Dissolve on tongue.
[facility] Medication administered onsite 1 ML haloperidol decanoate 100 MG/ML Injection HALOPERIDOL D ECANOATE 06/17/2021 12:00:00 AM EST solution 1 INJECT 1ML INTRAMUSCULARL Y EVERY 30 DAYS INJECT 1ML INTRAMUSCULARLY EVERY 30 DAYS SOLD: 06/26/2021 [facility] 10 mg 06/16/2021 12:00:00 AM EST capsule 21 TAKE THREE CAPSULES BY MOUTH EVERY DAY FOR DEPRESSION TAKE THREE CAPSULES BY MOUTH EVERY DAY FOR DEPRESSION SOLD: 06/26/2021 [facility] 50 mg 06/16/2021 12:00:00 AM EST tablet 7 TAKE ONE TABLET BY MOUTH AT BEDTIME NEEDED FOR INSOMNIA TAKE ONE TABLET BY MOUTH AT BEDTIME N EEDED FOR INSOMNIA SOLD: 06/26/2021 [facility] Haloperidol Decanoate 100 MG/ML Intramuscular Solution (HALDOL DECANOATE) 30300-822-86 06/16/2021 12:00:00 AM EST 100 mg Intramuscular aborted Inject 100 mg into the muscle every 28 (twenty-eight) days [facility] 300 mg 06/16/2021 12:00:00 AM EST capsule 21 TAKE TWO CAPSULES BY MOUTH THREE TIMES A DAY FOR ANXIETY TAKE TWO CAPSULES BY MOUTH THREE TIMES A DAY FOR ANXIETY SOLD: 06/26/2021 [facility] buspirone hydrochloride 10 MG Oral Tablet BUSPIRONE HCL 06/16/2021 12:00:00 AM EST tablet 7 TAKE ONE TABLET BY MOUTH TWI CE A DAY FOR ANXIETY TAKE ONE TABLET BY MOUTH TWICE A DAY FOR ANXIETY SOLD: 06/26/2021 [facility] 2 mg 06/16/2021 12:00:00 AM EST tablet 14 TAKE THREE TABLETS BY MOUTH TWICE A DAY FOR PSYCHOSIS TAKE THREE TABLETS BY MOUTH TWICE A DAY FOR PSYCHOSIS SOLD: 06/26/2021 [facility] 20 mg 06/11/2021 12:00:00 AM EST capsule 7 TAKE TWO CAPSULES BY MOUTH EVERY DAY TAKE TWO CAPSULES BY MOUTH EVERY DAY SOLD: 06/26/2021 [facility] 50 mg 06/11/2021 12:00:00 AM EST tablet 7 TAKE ONE TABLET BY MOUTH AT BEDTIME NEEDED FOR INSOMNIA TAKE ONE TABLET BY MOUTH AT BEDTIME N EEDED FOR INSOMNIA SOLD: 06/26/2021 [facility] 5 mg 06/11/2021 12:00:00 AM EST tablet 14 TAKE ONE TABLET BY MOUTH TWICE A DAY DIRECTED TAKE ONE TABLET BY MOUTH TWICE A DAY DIRECTED SOLD: 06/26/2021 [facility] 1 mg 06/11/2021 12:00:00 AM EST tablet 14 TAKE ONE TABLET BY MOUTH TWICE A DAY NEEDED DIRECTED TAKE ONE TABLET BY MOUTH TWICE A DAY NEEDED DIRECTED SOLD: 06/26/2021 [facility] 4 mg 06/11/2021 12:00:00 AM EST gum 110 CHEW 1 PIECE FOUR TIMES A DAY NEEDED FOR SMOKING CESSATION CHEW 1 PIECE FOUR TIMES A DAY NEEDED FOR SMOKING CESSATION SOLD: 06/11/2021 [facility] Nicotine 4 MG Chewing Gum Nicotine Polacrilex 4 MG Stefany th/Throat Gum (NICORETTE) Nicotine Polacrilex 4 MG Mouth/Throat Gum (NICORETTE) 06/11/2021 12:00:00 AM EST 4 mg Oral active Take 4 m g by mouth Four times daily as needed for Smoking cessation [facility] 100 mg/mL 06/11/2021 12:00:00 AM EST solution 1 INJECT 1 ML INTRAMUSCULARLY EVERY 28 DAYS INJECT 1 ML INTRAMUSCULARLY EVERY 28 DAYS SOLD: 06/26/2021 [facility] buspirone hydrochloride 15 MG Oral Tablet BUSPIRONE HCL 06/11/2021 12:00:00 AM EST tablet 21 TAKE ONE TABLET BY MOUTH THR EE TIMES A DAY FOR ANXIETY TAKE ONE TABLET BY MOUTH THREE TIMES A DAY FOR ANXIETY SOLD: 06/26/2021 [facility] Fluoxetine 20 MG Oral Capsule FLUoxetine HCl 20 MG Ora l Capsule (PROZAC) FLUoxetine HCl 20 MG Oral Capsule (PROZAC) 06/10/2021 12:00:00 AM EST aborted [facility] Haloperidol 5 MG Oral Tablet Haloperidol 5 MG Oral Tab let (HALDOL) Haloperidol 5 MG Oral Tablet (HALDOL) 06/10/2021 12:00[facility] MG Oral Table t busPIRone HCl 15 MG Oral Tablet (BUSPAR) busPIRone HCl 15 MG Oral Tablet (BUSPAR) 06/10/2021 12:00:00 AM EST aborted [facility] Mupirocin 0.02 MG/MG Topical Ointment Mu pirocin 2 % External Ointment (BACTROBAN) Mupirocin 2 % External Ointment (BACTROBAN) 06/10/2021 12:00:00 AM EST Topical aborted Apply to pically Two Times Daily Apply to affected area(s) around wound topically twice daily as directed. [facility] 100 mg 06/05/2021 12:00:00 AM EDT tablet [...] DAILY DOSE = 2 FILMS SOLD: 06/11/2021 [facility] aripiprazole 400 MG Injection [Abilify] Abilify Maintena 400 MG Intramuscular Suspension Reconstituted ER Abilify Maintena 400 MG Intramuscular Samuel spension Reconstituted ER 05/27/2021 12:00:00 AM EDT 400 mg Intramuscular aborted Inject 400 mg into the muscle every 30 ( thirty) days [facility] Buprenorphine 8 MG / Naloxone 2 MG Oral Strip [Suboxone] Suboxone 8-2 MG Sublingual Film Suboxone 8-2 MG Sublingual Film 05/27/2021 12:00:[address] ONE FILM UNDER THE TONGUE TWICE A DAY MAXIMUM DAILY DOSE 2 FILMS [facility] 50 mg 05/25/2021 12:00:00 AM EDT tablet [...] DAY FOR MOOD SOLD: 05/25/2021 [facility] aripiprazole 10 MG Oral Tablet ARIPiprazole 10 MG Oral Tablet (ABILIFY) ARIPiprazole 10 MG Oral Tablet (ABILIFY) 05/25/2021 12:00:00 AM EDT 10 mg Oral aborted Take 10 mg by mouth daily [facility] 5 mg 05/25/2021 12:00:00 AM EDT tablet 14 TAKE ONE TABLET BY MOUTH TWICE A DAY FOR OVERACTIVE BLADDER TAKE ONE TABLET BY MOUTH TWICE A DAY FOR OVERACTIVE BLADDER SOLD: 05/25/2021 [facility] 10 mg 05/25/2021 12:00:00 AM EDT tablet 7 TAKE ONE TABLET BY MOUTH EVERY DAY FOR MOOD TAKE ONE TABLET BY MOUTH EVERY DAY FOR MOOD SOLD: 05/25/2021 [facility] buspirone hydrochloride 15 MG Oral Tablet BUSPIRONE HCL 05/25/2021 12:00:00 AM EDT tablet 14 TAKE ONE TABLET BY MOUTH THR EE TIMES A DAY FOR ANXIETY TAKE ONE TABLET BY MOUTH THREE TIMES A DAY FOR ANXIETY SOLD: 05/25/2021 [facility] Mirtazapine 15 MG Oral Tablet Mirtazapine 15 MG Oral T ablet (REMERON) Mirtazapine 15 MG Oral Tablet (REMERON) 05/25/2021 12:00:00 AM EDT 15 mg Oral aborted Take 15 mg by mouth night ly [facility] 15 mg 05/25/2021 12:00:00 AM EDT tablet 7 TAKE ONE TABLET BY MOUTH AT BEDTIME FOR SLEEP TAKE ONE TABLET BY MOUTH AT BEDTIME FOR SLEEP SOLD: [facility] 4 mg 05/25/2021 12:00:00 AM EDT gum 110 CHEW ONE PIECE OF GUM BUCCALLY FOUR TIMES A DAY NEEDED FOR SMOKING CESSATION CHEW ONE PIECE OF GUM BUCCALLY FOUR TIMES A DAY NEEDED FOR SMOKING CESSATION SOLD: 05/25/2021 [facility] olanzapine 15 MG Oral Tablet OLANZapine 15 MG Oral Tab let (ZYPREXA) OLANZapine 15 MG Oral Tablet (ZYPREXA) 05/17/2021 12:00:00 AM EDT 15 mg Oral aborted Take 15 mg by mouth every morning [facility] 2-0.5 mg 05/14/2021 12:00:00 AM EDT film 15 PLACE ONE FILM UNDER THE TONGUE EVERY MORNING MAXIMUM DAILY DOSE = 1 PLACE ONE FILM UNDER THE TONGUE EVERY MORNING MAXIMUM DAILY DOSE = 1 SOLD: 05/14/2021 [facility] 8-2 mg 05/13/2021 12:00:00 AM EDT film 30 PLACE ONE FILM UNDER THE TONGUE TWICE A DAY MAXIMUM DAILY DOSE = 2 PLACE ONE FILM UNDER THE TONGUE TWICE A DAY MAXIMUM DAILY DOSE = 2 SOLD: 05/14/2021 [facility] 2 % 05/13/2021 12:00:00 AM EDT ointment 22 APPLY TWO TIMES A DAY TO WOUND ON RIGHT ARM FOR 2 WEEKS APPLY TWO TIMES A DAY TO WOUND ON RIGHT ARM FOR 2 WEEK S SOLD: 05/14/2021 [facility] gabapentin 600 MG Oral Tablet Gabapentin 600 MG Oral T ablet (NEURONTIN) Gabapentin 600 MG Oral Tablet (NEURONTIN) 05/13/2021 12:00:00 AM EDT 600 mg Oral aborted Take 600 mg by mouth Three times daily [facility] Cephalexin 500 MG Oral Capsule CEPHALEXIN 05/13/2021 12:00:00 AM EDT capsule 28 TAKE ONE CAPSULE BY MOUTH EVERY 6 HOURS UNTIL GONE OLY E ONE CAPSULE BY MOUTH EVERY 6 HOURS UNTIL GONE SOLD: 05/14/2021 [facility] Cephalexin 500 MG Oral Capsule Cephalexin 500 MG Oral Capsule (KEFLEX) Cephalexin 500 MG Oral Capsule (KEFLEX) 05/13/2021 12:00:00 AM EDT aborted TAKE ONE CAPSULE BY MOUTH EVERY 6 HOURS UNTIL GONE [facility] buspirone hydrochloride 15 MG Oral Tablet BUSPIRONE [...] URINARY DISCOMFORT SOLD: 06/11/2021 [facility] 5 mg 05/13/2021 12:00:00 AM EDT tablet 30 TAKE ONE TABLET BY MOUTH TWICE A DAY FOR URINARY DISCOMFORT TAKE ONE TABLET BY MOUTH TWICE A DAY FOR URINARY DISCOMFORT SOLD: 06/26/2021 [facility] olanzapine 15 MG Oral [...] URINARY DISCOMFORT SOLD: 05/14/2021 [facility] 60 mg 05/13/2021 12:00:00 AM EDT capsule 15 TAKE ONE CAPSULE BY MOUTH EVERY MORNING TAKE ONE CAPSULE BY MOUTH EVERY MORNING SOLD: 05/14/2021 [facility] 600 mg 05/13/2021 12:00:00 AM EDT tablet 45 TAKE ONE TABLET BY MOUTH THREE TIMES A DAY TAKE ONE TABLET BY MOUTH THREE TIMES A DAY SOLD: 05/14/2021 [facility] Narcan 4 MG/0.1ML Nasal Liquid [id number] 05/13/2021 12:00:00 AM EDT 1 {spray} Nasal active 1 spray by Nasal route o [facility] 4 mg/actuation 05/13/2021 12:00:00 AM EDT spray,non-aerosol 2 SPRAY 1 SPRAY IN NOSTRILS NEEDED SPRAY 1 SPRAY IN NOSTRILS NEEDED SOLD: 05/14/2021 [facility] 15 mg 04/29/2021 12:00:00 AM EDT tablet 15 TAKE ONE TABLET BY MOUTH AT BEDTIME TAKE ONE TABLET BY MOUTH AT BEDTIME SOLD: 04/30/2021 [facility] 600 mg 04/29/2021 12:00:00 AM EDT tablet 45 TAKE ONE TABLET BY MOUTH THREE TIMES A DAY TAKE ONE TABLET BY MOUTH THREE TIMES A DAY SOLD: 04/30/2021 [facility] buspirone hydrochloride 15 [...] = 2 FILMS SOLD: 04/30/2021 [facility] 2-0.5 mg 04/29/2021 [...] MOUTH EVERY MORNING SOLD: 04/30/2021 [facility] 8-2 mg 04/15/2021 12:00:00 AM [...] MOUTH EVERY MORNING SOLD: 04/16/2021 [facility] 4 mg 04/15/2021 12:00:00 AM [...] ONE (1) TABLET AT BEDTIME SOLD: 04/16/2021 [facility] buspirone hydrochloride 15 MG Oral Tablet BUSPIRONE HCL 04/15/2021 12:00:00 AM EDT tablet 45 TAKE ONE TABLET BY MOUTH THR EE TIMES A DAY TAKE ONE TABLET BY MOUTH THREE TIMES A DAY SOLD: 04/16/2021 [facility] 600 mg 04/15/2021 12:00:00 AM EDT tablet 45 TAKE 1 TABLET BY MOUTH THREE TIMES A DAY TAKE 1 TABLET BY MOUTH THREE TIMES A DAY SOLD: 04/16/2021 [facility] olanzapine 10 MG Oral Tablet OLANZapine 10 MG Oral Tab let (ZYPREXA) OLANZapine 10 MG Oral Tablet (ZYPREXA) 04/15/2021 12:00:00 AM EDT aborted TAKE ONE HALF 0.5 TABLET BY MOUTH EVERY IN THE MORNING AND ONE 1 TABLET AT BEDTIME [facility] Mirtazapine 30 MG Oral Tablet Mirtazapine 30 MG Oral T ablet (REMERON) Mirtazapine 30 MG Oral Tablet (REMERON) 04/15/2021 12:00:00 AM EDT 30 mg Oral aborted Take 30 mg by mouth night ly [facility] 4 mg 03/30/2021 12:00:00 AM EDT gum 110 CHEW ONE PIECE OF GUM BUCCALLY EVERY 3 HOURS NEEDED CHEW ONE PIECE OF GUM BUCCALLY EVERY 3 HOURS NEEDED SOLD: 03/30/2021 [facility] buspirone hydrochloride 15 MG Oral Tablet BUSPIRONE HCL 03/30/2021 12:00:00 AM EDT tablet 45 TAKE ONE TABLET BY MOUTH THR EE TIMES A DAY TAKE ONE TABLET BY MOUTH THREE TIMES A DAY SOLD: 03/30/2021 [facility] Risperidone 2 MG Oral Tablet RISPERIDONE 03/30/2021 12:00:00 AM EDT ta blet 15 TAKE ONE TABLET BY MOUTH AT BEDTIME TAKE ONE TABLET BY MOUTH AT BEDTIME SOLD: 03/30/2021 [facility] 8-2 mg 03/30/2021 12:00:00 AM EDT [...] MOUTH EVERY MORNING SOLD: 03/30/2021 [facility] 1 mg 03/30/2021 12:00:00 AM EDT capsule 15 TAKE ONE CAPSULE BY MOUTH AT BEDTIME TAKE ONE CAPSULE BY MOUTH AT BEDTIME SOLD: 03/30/2021 [facility] Prazosin 1 MG Oral Capsule Prazosin HCl 1 MG Oral Caps ule (MINIPRESS) Prazosin HCl 1 MG Oral Capsule (MINIPRESS) 03/30/2021 12:00:00 AM EDT 1 mg Oral aborted Take 1 mg by mouth [facility] Risperidone 2 MG Oral Tablet risperiDONE 2 MG Oral Tab let (RISPERDAL) risperiDONE 2 MG Oral Tablet (RISPERDAL) 03/30/2021 12:00:00 AM EDT 2 mg Oral aborted Take 2 mg by mouth [facility] 100 mg 03/30/2021 12:00:00 AM EDT tablet [...] MOUTH AT BEDTIME SOLD: 03/16/2021 [facility] 600 mg 03/16/2021 12:00:00 AM EDT [...] MOUTH EVERY MORNING SOLD: 03/16/2021 [facility] 4 mg 03/16/2021 [...] = 2 SOLD: 03/16/2021 [facility] buspirone hydrochloride 15 MG Oral Tablet [...] MOUTH AT BEDTIME SOLD: 03/16/2021 [facility] 8-2 mg 03/03/2021 12:00:00 AM EDT film 30 PLACE ONE FILM UNDER THE TONGUE TWICE A DAY MAXIMUM DAILY DOSE = [address] ONE FILM UNDER THE TONGUE TWICE A DAY MAXIMUM DAILY DOSE = 2 FILMS SOLD: 03/03/2021 [facility] olanzapine 10 MG Oral Tablet OLANZAPINE 03/03/2021 12:00:00 AM EDT tab let 22 TAKE ONE-HALF TABLET BY MOUTH EVERY MORNING AND 1 AT BEDTIME TAKE ONE-HALF TABLET BY MOUTH EVERY MORNING AND 1 AT BEDTIME SOLD: 03/03/2021 [facility] 100 [...] MOUTH EVERY MORNING SOLD: 03/03/2021 [facility] 15 mg 03/03/2021 [...] TIMES A DAY SOLD: 03/03/2021 [facility] 2 mg 03/03/2021 12:00:00 AM EDT tablet 15 TAKE ONE TABLET BY MOUTH AT BEDTIME TAKE ONE TABLET BY MOUTH AT BEDTIME SOLD: 03/03/2021 [facility] olanzapine 10 MG Oral Tablet OLANZAPINE 02/27/2021 12:00:00 AM EDT tab let 7 TAKE ONE TABLET BY MOUTH AT BEDTIME TAKE ONE TABLET BY MOUTH AT BEDTIME SOLD: 03/03/2021 [facility] SM Fiber Powder 25 % Oral Powder [id number] 02/26/2021 12:00:00 AM EDT aborted TAKE 1 ROUNDED T EASPOONFUL MIXED IN FLUID BY MOUTH TWO TIMES A DAY [facility] 3.4 gram/12 gram 02/26/2021 12:00:00 AM EDT [...] MOUTH EVERY DAY SOLD: 02/24/2021 [facility] 500 mg [...] MOUTH EVERY DAY SOLD: 02/24/2021 [facility] 400 mcg 02/24/2021 12:00:00 AM EDT tablet 30 TAKE ONE TABLET BY MOUTH EVERY DAY TAKE ONE TABLET BY MOUTH EVERY DAY SOLD: 02/24/2021 [facility] 100 mg 02/24/2021 12:00:00 AM EDT tablet 7 TAKE ONE TABLET BY MOUTH EVERY DAY TAKE ONE TABLET BY MOUTH EVERY DAY SOLD: 02/24/2021 [facility] 50 mcg 02/24/2021 12:00:00 AM EDT tablet 30 TAKE ONE TABLET BY MOUTH EVERY DAY TAKE ONE TABLET BY MOUTH EVERY DAY SOLD: 02/24/2021 [facility] Amitriptyline Hydrochloride 25 MG Oral T ablet Amitriptyline HCl 25 MG Oral Tablet (ELAVIL) Amitriptyline HCl 25 MG Oral Tablet (ELAVIL) 12:00:00 AM EDT 25 mg Oral aborted Take 25 mg by m outh nightly [facility] Cholecalciferol 2000 UNT Oral Tablet Vitamin D3 50 MCG (1999 UT) Oral Tablet Vitamin D3 50 MCG (1999 UT) Oral Tablet 02/24/2021 12:00:00 AM EDT 1 {tbl} Oral aborted Take 1 tablet by stefany th daily [facility] 8.6-50 mg 02/24/2021 12:00:00 AM EDT tablet 28 TAKE TWO TABLETS BY MOUTH TWICE A DAY TAKE TWO TABLETS BY MOUTH TWICE A DAY SOLD: 02/24/2021 [facility] 24 HR Nicotine 0.875 MG/HR Transdermal P atch Nicotine 21 MG/24HR Transdermal Patch 24 Hour (NICODERM CQ) Nicotine 21 MG/24HR Transdermal Patch 24 Hour (NICODERM CQ) 02/24/2021 12:00:00 AM EDT abor marques APPLY 1 PATCH DAILY [facility] Nicotine 2 MG Chewing Gum Nicotine Polacrilex 2 MG Stefany th/Throat Gum (NICORETTE) Nicotine Polacrilex 2 MG Mouth/Throat Gum (NICORETTE) 02/24/2021 12:00:00 AM EDT aborted USE ONE PIECE EV BELINDA HOUR NEEDED FOR NICOTINE CRAVINGS [facility] 24 HR Oxybutynin chloride 10 MG Extended Release Oral Tablet Oxybutynin Chloride ER 10 MG Oral Tablet Extended Release 24 Hour (DITROPAN-XL) Oxybutynin Chloride ER 10 MG Oral Tablet Extended Release 24 Hour (DITROPAN-XL) 02/24/2021 12:00:00 AM EDT 10 mg Oral aborted Take 10 mg by m outh daily [facility] 21 mg/24 hr 02/24/2021 12:00:00 AM EDT patch 24 hour 28 APPLY 1 PATCH DAILY APPLY 1 PATCH DAILY SOLD: 02/24/2021 [facility] Docusate Sodium 50 MG / sennosides, HALFWAY 8.6 MG Oral Tablet Stool Softener/Laxative 50-8.6 MG Oral Tablet Stool Softener/Laxative 50-8.6 MG Oral Tablet 02/24/2021 12:00:00 AM EDT 2 {tbl} Oral aborted Take 2 tablets by mouth Two Times Daily [facility] Sertraline 100 MG Oral Tablet Sertraline HCl 100 MG Or al Tablet (ZOLOFT) Sertraline HCl 100 MG Oral Tablet (ZOLOFT) 02/24/2021 12:00:00 AM EDT 100 mg Oral aborted Take 100 mg by mouth daily [facility] atomoxetine 40 MG Oral Capsule Atomoxetine HCl 40 MG O ral Capsule (STRATTERA) Atomoxetine HCl 40 MG Oral Capsule (STRATTERA) 02/24/2021 12:00:00 AM EDT 40 mg Oral aborted Take 40 mg by mouth [facility] atomoxetine 10 MG Oral Capsule Atomoxetine HCl 10 MG O ral Capsule (STRATTERA) Atomoxetine HCl 10 MG Oral Capsule (STRATTERA) 02/24/2021 12:00:00 AM EDT 20 mg Oral aborted Take 20 mg by mouth [facility] buspirone hydrochloride 15 MG Oral Tablet BUSPIRONE HCL 02/24/2021 12:00:00 AM EDT tablet 21 TAKE 1 TABLET BY MOUTH AT 6: 00AM, 1:00PM, AND 5:00PM DAILY TAKE 1 TABLET BY MOUTH AT 6:00AM, 1:00PM, AND 5:00PM DAILY SOLD: 02/24/2021 [facility] 3 mg 02/24/2021 12:00:00 AM EDT tablet 14 TAKE TWO TABLETS BY MOUTH AT BEDTIME NEEDED FOR SLEEP TAKE TWO TABLETS BY MOUTH AT BEDTIME NEEDED FOR SLEEP SOLD: 02/24/2021 [facility] Naproxen 500 MG Oral Tablet Naproxen 500 MG Oral Table t (NAPROSYN) Naproxen 500 MG Oral Tablet (NAPROSYN) 02/24/2021 12:00:00 AM EDT aborted TAKE ONE TABLET BY MOUTH TWICE A DAY AT 6AM AND 6PM [facility] Levothyroxine Sodium 0.05 MG Oral Tablet Levothyroxine Sodium 50 MCG Oral Tablet (SYNTHROID) Levothyroxine Sodium 50 MCG Oral Tablet (SYNTHROID) 12:00:00 AM EDT 50 ug Oral aborted Take 50 mcg by mouth daily [facility] Melatonin 3 MG Oral Tablet Melatonin 3 MG Oral Tablet 2020 12:00:00 AM EDT aborted TAKE TWO TABLETS BY MOUTH AT BEDTIME NEEDED FOR SLEEP [facility] Tab-A-Silvestre Oral Tablet [id number] 02/24/2021 12:00:00 AM EDT 1 {tbl} Oral aborted Take 1 tablet by mouth daily [facility] olanzapine 5 MG Oral Tablet OLANZAPINE 02/24/2021 12:00:00 AM EDT tabl et 7 TAKE ONE TABLET BY MOUTH EVERY MORNING AT `8AM TAKE ONE TABLET BY MOUTH EVERY MORNING AT `8AM SOLD: 02/24/2021 [facility] 1 mg 02/24/2021 12:00:00 AM EDT capsule 7 TAKE ONE CAPSULE BY MOUTH AT BEDTIME TAKE ONE CAPSULE BY MOUTH AT BEDTIME SOLD: 02/24/2021 [facility] 10 mg 02/24/2021 12:00:00 AM EDT tablet extended release 24hr 7 TAKE ONE TABLET BY MOUTH EVERY DAY TAKE ONE TABLET BY MOUTH EVERY DAY SOLD: 02/24/2021 [facility] 4 mg/actuation 02/23/2021 12:00:00 AM EDT spray,non-aerosol 2 USE FOR SUSPECTED OPIOID OVERDOSE AND CALL 911 USE FOR SUSPECTED OPIOID OVERDOSE AND CALL 911 SOLD: 02/24/2021 [facility] 3 mg 01/18/2021 12:00:00 AM EDT tablet 5 TAKE ONE TABLET BY MOUTH AT BEDTIME TAKE ONE TABLET BY MOUTH AT BEDTIME SOLD: 01/19/2021 [facility] Docusate Sodium 100 MG Oral Capsule [Col gopi] Docusate Sodium (Colace) 100 MG CAPSULE Docusate Sodium (Colace) 100 MG CAPSULE 01/18/2021 12:00:00 AM E DT 200 completed Daily as needed [facility] olanzapine 15 MG Oral Tablet Olanzapine 15 MG TABLET Olanzap ine 15 MG TABLET 01/18/2021 12:00:00 AM EDT 15 completed At Bedtime [facility] 15 mg 01/18/2021 12:00:00 AM EDT tablet 5 TAKE ONE TABLET BY MOUTH AT BEDTIME TAKE ONE TABLET BY MOUTH AT BEDTIME SOLD: 01/19/2021 [facility] Sertraline 50 MG Oral Tablet [Zoloft] Sertraline HCl 5 0 MG TABLET Sertraline HCl 50 MG TABLET 01/18/2021 12:00:00 AM EDT 50 completed At Bedtime [facility] 8-2 mg 01/18/2021 12:00:00 AM EDT film 10 PLACE ONE FILM UNDER THE TONGUE TWICE A DAY MAXIMUM DAILY DOSE = 2 PLACE ONE FILM UNDER THE TONGUE TWICE A DAY MAXIMUM DAILY DOSE = 2 SOLD: 01/19/2021 [facility] 50 mg 01/18/2021 12:00:00 AM EDT tablet 5 TAKE ONE TABLET BY MOUTH AT BEDTIME TAKE ONE TABLET BY MOUTH AT BEDTIME SOLD: 01/19/2021 [facility] Multi-Vit/Mineral (Multivitamin Tablet) 1 TAB TAB 01/18/2021 12:00:00 AM EDT 1 completed Daily [facility] doxycycline hyclate 100 MG Oral Tablet D oxycycline Hyclate 100 MG Oral Tablet (VIBRA-TABS) Doxycycline Hyclate 100 MG Oral Tablet (VIBRA-TABS) 12:00:00 AM EDT 100 mg Oral aborted Take 100 mg by mouth Two Times Daily [facility] gabapentin 600 MG Oral Tablet Gabapentin 600 MG TABLET Gabap entin 600 MG TABLET 01/18/2021 12:00:00 AM EDT 600 completed Three Times a Day [facility] Mirtazapine 15 MG Oral Tablet Mirtazapine 15 MG TABLET Christine zapine 15 MG TABLET 01/18/2021 12:00:00 AM EDT 15 completed At Bedtime [facility] 400 mcg 01/18/2021 12:00:00 AM EDT tablet 5 TAKE ONE TABLET BY MOUTH EVERY DAY TAKE ONE TABLET BY MOUTH EVERY DAY SOLD: 01/19/2021 [facility] doxycycline hyclate 100 MG Oral Tablet Doxycycline Hyc late 100 MG TABLET Doxycycline Hyclate 100 MG TABLET 01/18/2021 12:00:00 AM EDT 100 completed Twice Daily [facility] doxycycline hyclate 100 MG Oral Tablet DOXYCYCLINE HYCLATE 0 01/18/2021 12:00:00 AM EDT tablet 20 TAKE ONE TABLET BY MOUTH TWI CE A DAY TAKE ONE TABLET BY MOUTH TWICE A DAY SOLD: 01/19/2021 [facility] 600 mg 01/18/2021 12:00:00 AM EDT tablet 15 TAKE ONE TABLET BY MOUTH THREE TIMES A DAY TAKE ONE TABLET BY MOUTH THREE TIMES A DAY SOLD: 01/19/2021 [facility] Prazosin 2 MG Oral Capsule Prazosin HCl 2 MG Oral Caps ule (MINIPRESS) Prazosin HCl 2 MG Oral Capsule (MINIPRESS) 01/18/2021 12:00:00 AM EDT 2 mg Oral aborted Take 2 mg by mouth [facility] Buprenorphine 8 MG / Naloxone 2 MG Oral Strip [Suboxone] Buprenorphine HCl/Naloxone HCl (Suboxone 8 MG-2 MG Sl Film) 1 EACH FILM Buprenorphine HCl/Naloxone HCl (Suboxone 8 MG-2 MG Sl Film) 1 EACH FILM 01/18/2021 12:00:00 AM EDT 8 completed Twice Daily [facility] Risperidone 3 MG Oral Tablet risperiDONE 3 MG Oral Tab let (RISPERDAL) risperiDONE 3 MG Oral Tablet (RISPERDAL) 01/18/2021 12:00:00 AM EDT 3 mg Oral aborted Take 3 mg by mouth [facility] Sertraline 50 MG Oral Tablet Sertraline HCl 50 MG Oral Tablet (ZOLOFT) Sertraline HCl 50 MG Oral Tablet (ZOLOFT) 01/18/2021 12:00:00 AM EDT 50 mg Oral aborted Take 50 mg by mouth [facility] 2 mg 01/18/2021 12:00:00 AM EDT capsule 5 TAKE ONE CAPSULE BY MOUTH AT BEDTIME TAKE ONE CAPSULE BY MOUTH AT BEDTIME SOLD: 01/19/2021 [facility] Risperidone 3 MG Oral Tablet [Risperdal] Risperidone ( Risperdal) 3 MG TABLET Risperidone (Risperdal) 3 MG TABLET 01/18/2021 12:00:00 AM EDT 3 completed At Bedtime [facility] 100 mg 01/18/2021 12:00:00 AM EDT capsule 10 TAKE TWO CAPSULES BY MOUTH EVERY DAY NEEDED TAKE TWO CAPSULES BY MOUTH EVERY DAY NEEDED SOLD: 01/19/2021 [facility] olanzapine 15 MG Oral Tablet OLANZAPINE 01/18/2021 12:00:00 AM EDT tab let 5 TAKE ONE TABLET BY MOUTH AT BEDTIME TAKE ONE TABLET BY MOUTH AT BEDTIME SOLD: 01/19/2021 [facility] Prazosin 2 MG Oral Capsule [Minipress] Prazosin HCl (M inipress) 2 MG CAPSULE Prazosin HCl (Minipress) 2 MG CAPSULE 01/18/2021 12:00:00 AM EDT 2 completed At Bedtime [facility] 8-2 mg 01/13/2021 12:00:00 AM EDT film [...] TIMES A DAY SOLD: 01/02/2021 [facility] 15 mg 12/17/2020 12:00:00 AM EDT tablet 7 TAKE ONE TABLET BY MOUTH AT BEDTIME TAKE ONE TABLET BY MOUTH AT BEDTIME SOLD: 12/18/2020 [facility] 2 mg 12/17/2020 12:00:00 AM EDT tablet 11 TAKE ONE AND ONE-HALF TABLETS BY MOUTH AT BEDTIME TAKE ONE AND ONE-HALF TABLETS BY MOUTH AT BEDTIME SOLD : 12/18/2020 [facility] 600 mg 12/17/2020 12:00:00 AM EDT tablet 21 TAKE ONE TABLET BY MOUTH THREE TIMES A DAY FOR ANXIETY TAKE ONE TABLET BY MOUTH THREE TIMES A DAY FOR ANXIETY SOLD: 12/18/2020 [facility] 8-2 mg 12/17/2020 12:00:00 AM EDT film 14 PLACE ONE FILM UNDER THE TONGUE TWICE A DAY MAXIMUM DAILY DOSE = [address] ONE FILM UNDER THE TONGUE TWICE A DAY MAXIMUM DAILY DOSE = 2 FILMS SOLD: 12/18/2020 [facility] olanzapine 15 MG Oral Tablet OLANZAPINE 12/17/2020 12:00:00 AM EDT tab let 7 TAKE ONE TABLET BY MOUTH AT BEDTIME TAKE ONE TABLET BY MOUTH AT BEDTIME SOLD: 12/18/2020 [facility] 2 mg 12/17/2020 12:00:00 AM EDT capsule 7 TAKE ONE CAPSULE BY MOUTH AT BEDTIME FOR NIGHTMARES TAKE ONE CAPSULE BY MOUTH AT BEDTIME FOR NIGHTMARES SO LD: 12/18/2020 [facility] 100 mg 12/16/2020 12:00:00 AM EDT tablet 14 TAKE ONE TABLET BY MOUTH TWICE A DAY TAKE ONE TABLET BY MOUTH TWICE A DAY SOLD: 12/18/2020 [facility] olanzapine 5 MG Disintegrating Oral Tabl et OLANZapine 5 MG Oral Tablet Disintegrating (ZYPREXA) OLANZapine 5 MG Oral Tablet Disintegrating (ZYPREXA) 12/12/2020 12:00:00 AM EDT aborted DISSOLVE ONE TABLET UNDER THE TONGUE EVERY DAY NEEDED FOR ANXIETY AGITATIONS [facility] 3 mg 12/11/2020 12:00:00 AM EDT tablet [...] Drug s Metronidazole 500 MG Oral Tablet metroNIDAZOLE 500 MG Oral Tablet (FLAGYL) metroNIDAZOLE 500 MG Oral Tablet (FLAGYL) 12/11/2020 12:00:00 AM EDT aborted 500 MG BY MOUTH AT BEDTIME FOR I NFECTION [facility] Metronidazole 500 MG Oral Tablet METRONIDAZOLE 12/05/2020 12:0 0:00 AM EDT tablet 14 TAKE ONE TABLET BY M OUTH TWICE A DAY WITH FOOD FOR SOFT TISSUE INFECTION UNTIL GONE DO NOT DRINK ALCOHOL TAKE ONE TABLET BY MOUTH TWICE A DAY WIT H FOOD FOR SOFT TISSUE INFECTION UNTIL GONE DO NOT DRINK ALCOHOL SOLD: 12/06/2020 [facility] 5 mg 12/05/2020 [...] FOR CONSTIPATION S OLD: 12/06/2020 [facility] 15 mg 12/05/2020 12:00:00 AM EDT tablet 7 TAKE ONE TABLET BY MOUTH AT BEDTIME FOR INSOMNIA TAKE ONE TABLET BY MOUTH AT BEDTIME FOR INSOMNIA SOLD: 12/06/2020 [facility] 4 mg 12/05/2020 12:00:00 [...] = 2 FILM SOLD: 10/31/2020 [facility] 8-2 mg 10/13/2020 12:00:00 AM EDT film 30 [address] ONE FILM UNDER THE TONGUE TWICE A DAY MAXIMUM DAILY DOSE = [address] ONE FILM UNDER THE TONGUE TWICE A DAY MAXIMUM DAILY DOSE = 2 FILMS SOLD: 10/15/2020 [facility] 1 mg 10/13/2020 [...] A DAY NEEDED SOLD: 10/15/2020 [facility] 2 mg 10/13/2020 12:00:00 AM EDT capsule 30 TAKE ONE CAPSULE BY MOUTH AT BEDTIME TAKE ONE CAPSULE BY MOUTH AT BEDTIME SOLD: 10/15/2020 [facility] 600 mg 10/13/2020 12:00:00 AM EDT tablet 90 TAKE ONE TABLET BY MOUTH THREE TIMES A DAY TAKE ONE TABLET BY MOUTH THREE TIMES A DAY SOLD: 10/15/2020 [facility] olanzapine 15 MG [...] 3 HOURS NEEDED SOLD: 10/15/2020 [facility] Buprenorphine 12 MG / Naloxone 3 MG Oral Strip Buprenorphine HCl-Naloxone HCl 12-3 MG Sublingual Film (SUBOXONE) Buprenorphine HCl-Naloxone HCl 12-3 MG Sublingual Film (SUBOXONE) 10/09/2020 12:00:[address] ONE FILM UNDER THE TONGUE EVERY MORNING MAXIMUM DAILY DOSE 1 FILM [facility] 12-3 mg 10/09/2020 12:00:00 AM EST film [...] A DAY NEEDED SOLD: 10/09/2020 [facility] olanzapine 15 MG Oral Tablet OLANZapine 15 MG Oral Tab let (ZYPREXA) OLANZapine 15 MG Oral Tablet (ZYPREXA) 09/29/2020 12:00:00 AM EST aborted TAKE ONE TABLET BY MOUTH AT BEDTIME [facility] 2 mg 09/29/2020 12:00:00 AM EST capsule 15 TAKE ONE CAPSULE BY MOUTH AT BEDTIME TAKE ONE CAPSULE BY MOUTH AT BEDTIME SOLD: 10/03/2020 [facility] 12-3 mg 09/29/2020 12:00:00 AM EST film 7 PLACE 1 FILM UNDER THE TONGUE EVERY MORNING MAXIMUM DAILY DOSE = [address] 1 FILM UNDER THE TONGUE EVERY MORNING MAXIMUM DAILY DOSE = 1 FILM SOLD: 10/03/2020 [facility] 600 mg 09/29/2020 12:00:00 AM EST tablet 45 TAKE ONE TABLET BY MOUTH THREE TIMES A DAY TAKE ONE TABLET BY MOUTH THREE TIMES A DAY SOLD: 10/03/2020 [facility] 4 mg 09/29/2020 12:00:00 AM EST lozenge 72 TAKE ONE LOZENGE BUCCALLY FOUR TIMES A DAY NEEDED TAKE ONE LOZENGE BUCCALLY FOUR TIMES A DAY NEEDED S OLD: 10/03/2020 [facility] Nicotine 4 MG Oral Lozenge SM Nicotine Polacrilex 4 MG Mouth/Throat Lozenge SM Nicotine Polacrilex 4 MG Mouth/Throat Lozenge 09/29/2020 12:00:00 AM EST aborted TAKE ONE LOZENGE BUCCALLY FOUR TIMES A DAY NEEDED [facility] olanzapine 15 MG Oral Tablet OLANZAPINE 09/29/2020 12:00:00 AM EST tab let 15 TAKE ONE TABLET BY MOUTH AT BEDTIME TAKE ONE TABLET BY MOUTH AT BEDTIME SOLD: 10/03/2020 [facility] 30 mg 09/29/2020 12:00:00 AM EST tablet 15 TAKE ONE TABLET BY MOUTH AT BEDTIME TAKE ONE TABLET BY MOUTH AT BEDTIME SOLD: 10/03/2020 [facility] 1 mg 09/22/2020 12:00:00 AM EST tablet 30 TAKE ONE TABLET BY MOUTH TWICE A DAY NEEDED TAKE ONE TABLET BY MOUTH TWICE A DAY NEEDED SOLD: 10/03/2020 [facility] Metronidazole 500 MG Oral Tablet metronidazole 500 mg tablet metronidazole 500 mg tablet 09/22/2020 12:00:00 AM EST active 4 tabs po x 1 (#4) [facility] ([facility]) Metronidazole 500 MG Oral Tablet METRONIDAZOLE 09/22/2020 [...] MOUTH AT BEDTIME SOLD: 09/16/2020 [facility] 600 mg 09/16/2020 [...] DAY NEEDED S OLD: 09/16/2020 [facility] 2 mg 09/16/2020 12:00:00 [...] = 1 FILM SOLD: 09/16/2020 [facility] gabapentin 400 MG Oral Capsule Gabapentin 400 MG Oral Capsule (NEURONTIN) Gabapentin 400 MG Oral Capsule (NEURONTIN) 09/08/2020 12:00:00 AM EST aborted TAKE ONE CAPSULE BY MOUTH FOUR T IMES A DAY [facility] Haloperidol 10 MG Oral Tablet Haloperidol 10 MG Oral T ablet (HALDOL) Haloperidol 10 MG Oral Tablet (HALDOL) 08/30/2020 12:00:00 AM EST aborted TAKE TWO TABLETS BY MOUTH TWICE A DAY NEEDED [facility] 10 mg 08/30/2020 12:00:00 AM EST tablet 30 TAKE TWO TABLETS BY MOUTH TWICE A DAY NEEDED TAKE TWO TABLETS BY MOUTH TWICE A DAY NEEDED SOLD: 2020 [facility] 50 mg 08/26/2020 12:00:00 AM EST tablet 7 TAKE ONE TABLET BY MOUTH EVERY MORNING THEN DISCONTINUE TAKE ONE TABLET BY MOUTH EVERY MORNING T HEN DISCONTINUE SOLD: 08/27/2020 [facility] 2 mg 08/26/2020 12:00:00 AM EST capsule [...] = 1 FILM SOLD: 08/27/2020 [facility] 400 mg 08/26/2020 12:00:00 AM EST capsule 60 TAKE ONE CAPSULE BY MOUTH FOUR TIMES A DAY TAKE ONE CAPSULE BY MOUTH FOUR TIMES A DAY SOLD: 09/16/2020 [facility] 30 mg 08/26/2020 12:00:00 AM [...] MOUTH AT BEDTIME SOLD: 08/27/2020 [facility] olanzapine 15 MG [...] MOUTH AT BEDTIME SOLD: 08/20/2020 [facility] 400 mg 08/19/2020 12:00:00 AM EST capsule 28 TAKE ONE CAPSULE BY MOUTH FOUR TIMES A DAY TAKE ONE CAPSULE BY MOUTH FOUR TIMES A DAY SOLD: 08/20/2020 [facility] 1 mg 08/19/2020 [...] = 1 FILM SOLD: 08/20/2020 [facility] 10 mg 08/18/2020 [...] MOUTH AT BEDTIME SOLD: 08/04/2020 [facility] 4 mg 08/04/2020 12:00:00 AM EST lozenge 72 TAKE ONE TABLET BUCCALLY FOUR TIMES A DAY NEEDED TAKE ONE TABLET BUCCALLY FOUR TIMES A DAY NEEDED SO LD: 08/04/2020 [facility] Hydroxyzine Hydrochloride 50 MG Oral Tab let hydrOXYzine HCl 50 MG Oral Tablet (ATARAX) hydrOXYzine HCl 50 MG Oral Tablet (ATARAX) 08/04/2020 12:00: 00 AM EST aborted TAKE ONE TABLET BY MOUTH THREE TIMES A DAY NEEDED [facility] 400 mg 08/04/2020 12:00:00 AM EST capsule 28 TAKE ONE CAPSULE BY MOUTH FOUR TIMES A DAY TAKE ONE CAPSULE BY MOUTH FOUR TIMES A DAY SOLD: 08/04/2020 [facility] 100 mg 08/04/2020 12:00:00 AM EST tablet 7 TAKE ONE TABLET BY MOUTH EVERY MORNING TAKE ONE TABLET BY MOUTH EVERY MORNING SOLD: 08/04/2020 [facility] 30 mg 08/04/2020 12:00:00 AM EST tablet 7 TAKE ONE TABLET BY MOUTH AT BEDTIME TAKE ONE TABLET BY MOUTH AT BEDTIME SOLD: 08/04/2020 [facility] buspirone hydrochloride 15 MG Oral Tablet BUSPIRONE HCL 08/04/2020 12:00:00 AM EST tablet 120 TAKE ONE TABLET BY MOUTH FOU R TIMES A DAY TAKE ONE TABLET BY MOUTH FOUR TIMES A DAY SOLD: 08/04/2020 [facility] 8-2 mg 08/04/2020 12:00:00 AM EST film 7 PLACE ONE FILM UNDER THE TONGUE EVERY MORNING MAXIMUM DAILY DOSE = [address] ONE FILM UNDER THE TONGUE EVERY MORNING MAXIMUM DAILY DOSE = 1 FILM SOLD: 08/04/2020 [facility] olanzapine 5 MG Oral Tablet OLANZapine 5 MG Oral Table t (ZYPREXA) OLANZapine 5 MG Oral Tablet (ZYPREXA) 07/24/2020 12:00:00 AM EST aborted TAKE ONE TABLET BY MOUTH TWICE A DAY [facility] 8-2 mg 07/24/2020 12:00:00 AM EST film 10 PLACE ONE FILM UNDER THE TONGUE TWICE A DAY MAXIMUM DAILY DOSE = 2 FILMS LOT # [id number] PLACE ONE FILM UNDER THE TONGUE TWICE A DAY MAXIMUM DAILY DOSE = 2 FILMS LOT # [id number] SOLD: 07/24/2020 [facility] olanzapine 5 MG Oral Tablet OLANZAPINE 07/24/2020 12:00:00 AM EST tabl et 60 TAKE ONE TABLET BY MOUTH TWICE A DAY TAKE ONE TABLET BY MOUTH TWICE A DAY SOLD: 07/24/2020 [facility] 100 mg 07/08/2020 12:00:00 AM EST tablet 10 TAKE ONE TABLET BY MOUTH AT BEDTIME TAKE ONE TABLET BY MOUTH AT BEDTIME SOLD: 07/09/2020 [facility] 15 mg 07/08/2020 12:00:00 AM [...] DAILY DOSE = 2 FILMS SOLD: 07/09/2020 [facility] Sertraline 25 MG Oral Tablet Sertraline HCl 25 MG Oral Tablet (ZOLOFT) Sertraline HCl 25 MG Oral Tablet (ZOLOFT) 07/08/2020 12:00:00 AM EST 25 mg Oral aborted Take 25 mg by mouth every morning [facility] 25 mg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 umbilical hernia Recurrent Umbilical Hernia Problem 05/13/2021 12:00:00 AM EDT [facility]I ([facility]) [id number] Viral hepatitis C Viral hepatitis C Problem 09/15/2020 12:00:00 AM EST [facility] ([facility]) Surgeries/Procedures Procedure Description Date Indications Data Source(s) EKG 12-LEAD - CMAXX REPORT <td>EKG 12-LEAD - CMAXX REPORT</td><td></td><td>06/22/2021 12:27 PM EST</td><td></td><td></td> 06/22/2021 12:27:56 PM [facility] EKG 12-LEAD - CMAXX REPORT <td>EKG 12-LEAD - CMAXX REPORT</td><td></td><td>06/22/2021 12:27 PM EST</td><td></td><td></td> 06/22/2021 12:27:56 PM [facility] EKG 12-LEAD <td>EKG 12-LEAD</td><td>Rout ine</td><td>06/22/2021 12:27 PM EST</td><td></td><td> </td> 06/22/2021 12:27:56 PM [facility] Individual Counseling for Substance Abuse Treatment, C ontinuing Care INDIV FOURDRINIER TENDER FOR SUBSTANCE ABUSE TREATMENT, CONTINUING CARE 01/27/2021 12:00:[address] [facility] Individual Counseling for Substance Abuse Treatment, C ognitive-Behavioral INDIV FOURDRINIER TENDER FOR SUBSTANCE ABUSE, COGNITIVE BEHAVIORAL 01/27/2021 12:00:[address] [facility] Group Counseling for Substance Abuse Treatment, Motiva tional Enhancement GROUP FOURDRINIER TENDER FOR SUBSTANCE ABUSE, MOTIVATIONAL ENHANCE 01/27/2021 12:00:[address] [facility] Group Counseling for Substance Abuse Treatment, Spirit ual GROUP COUNSELING FOR SUBSTANCE ABUSE TREATMENT, SPIRITUAL 01/27/2021 12:00:[address] [facility] Group Counseling for Substance Abuse Treatment, Interp ersonal GROUP FOURDRINIER TENDER FOR SUBSTANCE ABUSE TREATMENT, INTERPERSONAL 01/27/2021 12:00:[address] [facility] CVR Computer Forensics Investigator.Svc. STI / H 09/15/2020 12:00:00 AM EST - 09/15/2020 12:00:00 AM EST [facility] ([facility]) CVR Computer Forensics Investigator.Svc. Other 09/15/2020 12:00:00 AM EST - 2020 12:00:00 AM EST [facility] ([facility]) CVR Computer Forensics Investigator.Svc. Contraceptive 09/15/2020 12 :00:00 AM EST - 09/15/2020 12:00:00 AM EST [facility] ([facility]) CVR Med.Svc. Height/Weight 09/15/2020 12 :00:00 AM EST - 09/15/2020 12:00:00 AM EST [facility] ([facility]) CVR Blood Pressure 09/15/2020 12:00:00 AM EST - 2020 12:00:00 AM EST [facility] ([facility]) CVR Med.Svc. Other 09/15/2020 12:00:00 AM EST - 2020 12:00:00 AM EST [facility] ([facility]) TRICHOMONAS VAGIN, DIR PROBE 09/15/2020 12:00:00 AM EST - 09/15/2020 12:00:00 AM EST [facility] ([facility]) JUAREZ VAG, DNA, DIR PROBE 09/15/2020 1 2:00:00 AM EST - 09/15/2020 12:00:00 AM EST [facility] ([facility]) DONTE, DNA, DIR PROBE 09/15/2020 12:00 :00 AM EST - 09/15/2020 12:00:00 AM EST [facility] ([facility]) ROUTINE VENIPUNCTURE 09/15/2020 12:00:00 AM EST - 09/15/2020 12:00:00 AM EST [facility] ([facility]) HEPATITIS C, RNA, AMP PROBE 09/15/2020 1 2:00:00 AM EST - 09/15/2020 12:00:00 AM EST [facility] ([facility]) SYPHILLIS BLOOD SEROLOGY, QUALITATIVE 12:00:00 AM EST - 09/15/2020 12:00:00 AM EST [facility] ([facility]) HTLV/HIV SERUM TEST 09/15/2020 12:00:00 AM EST - 09/15 12:00:00 AM EST [facility] ([facility]) N.GONORRHOEAE, SWAB 09/15/2020 12:00:00 AM EST - 09/15 [facility] CHYLMD TRACH SWAB 09/15/2020 12:00:00 AM EST - 021 12:00:00 AM EST [facility] hospital ([facility]) OFFICE VISIT, EST 09/15/2020 12:00:00 AM EST - 021 12:00:00 AM EST Critical [facility] hospital ([facility]) URINALYSIS NONAUTO W/O SCOPE 09/15/2020 12:00:00 AM EST - 09/15/2020 12:00:00 AM EST Critical access hospital ([facility]) URINE TEST 09/15/2020 12:00:00 AM [facility] - 09/15/2020 12:00:00 AM EST Critical access hospital ([facility]) Results ID Date Data Source [id number] 06/24/2021 08:54:49 PM [facility] Name Value Range Interpretation Code Description Data Kassy rce(s) Supporting Document(s) Discharge Summary [facility] RGPDBb1xZuKWRzQc84/IIJbvWZLaj9MdFJkvZOg0DYgqMXAhE6MuSFP5nY2gEWX1OShCRiLdOjNwFAB1 lbm [file] ICAgICAgICAgICAgICAgICAgICAgICAgICAgICAgIC AgICAgICAgICAgICAgICAgICAgICAgICAgICAgICAgICAgICAgICAgICAgICAgICAgICAgICAgICAgIA 0KICAgICAgICAgICAgICAgICAgICAgICAgICAgICAgICAgICAgICAgICAgICAgICAgICAgICAgICAgIC AgICAgICAgICAgICAgICAgICAgICAgICAgICAgICAg RIItKQDkROCkSR8VUJNrVFXsTMFcWCEfPNLeYTJaSOQxRIQyGIDlHDYuFAPoFECqLRNeQRBmGIZeIUBo JKPoRDFuWCZpQEQkTFYbSSUjVDTqIEPiFRLmUUBmQEUuSVQqXUHrTUEbOBEnSSIsDVPhIG5USJTdFHHs ICAgICAgICAgICAgICAgICAgICAgICAgICAgICAgIC AgICAgICAgICAgICAgICAgICAgICAgICAgICAgICAgICAgICAgICAgICAgICAgICAgICAgICAgICAgIC HgWS4RNDKzHBXhKRObJAYzCPCzJWOmAVBuDMYxLLGhQQKrIDEhROFgKXIwVHFgWQDhBBWcLAVbDUWzXT AgICAgICAgICAgICAgICAgICAgICAgICAgICAgICAg DXCjJNAkRWIdDNBnFV6GURMfIVQrNNLmWEMkWQFwKCSwSZGfTELlRMPaNPYaYRUxAMKgGDTrKGZyZEDv WQHiOLFvFSKwUIYwHNAmNEMlLZHfHJIzABUxIKMbPGUyKLCoMNIsLSPqVHRbLUEkZMOnXUQiXY4TMBUh ICAgICAgICAgICAgICAgICAgICAgICAgICAgICAgIC AgICAgICAgICAgICAgICAgICAgICAgICAgICAgICAgICAgICAgICAgICAgICAgICAgICAgICAgICAgIC FxGDFxFA5CQVNiCHVpHIVoHLTxXFHrVIXbVDXeRQMlFZCbLLNnKDTtKIXlBRRdOMQpGPQfXMSjZZEqFC AgICAgICAgICAgICAgICAgICAgICAgICAgICAgICAg RXLlGXLsBUCrNQQnVGYmRT7QTEJiQHEeVJErTFExTPTwRILpCVNdITYxQGCpSDOkNWTgYFXtQGFwRWKe MXShXEUqIPIfMVWiOVUrPNZgPHGlZPDwYBDlIYMuDSLdQTFsNIYfJIPmXZPcIZPcAJZqYSJnROTcLB4R LX86jFOlv6J2GKFdKU3dhjc/Sb4MNYokeqCnhUPxCN 0NRnMuAM3jhn0JHwTrWL6iji2DSLmCMpUqJ8S8vPDeUNEhNHPMGdGuB52xYNtaGa01PTwcNIOzAeGhLY i1Sm8NHsZhA5bbDZBiBjD3ESTmNnU9GCMjXnE3MJJgWiIeNEQnGKNtBIJgEPIIZWX0CDTiZgGxEwVsWG LjERqfXFYTCIAiMXTfHgYfRiCxLAErEjWnHQVBSR0Z HhWnU0GnoB93PYGqMOs+Ie7URX7xa7OzDTs1ReVjND6bib5UCHxUHuMaX2LfhrG2RAD2MKYbNx2WDJFj NPAqnEW4GQVgBTZDPvSqE8PsaP37CPSUFw2+KTbsjdUcRiaNFpB4MSWlm7ZoTDo0KQ3BLPAsKLr3uBBx XJjvY7hrzdwuOUG1gS6uqwrjAohaWaYqqPfoJXFeKS C6EPTxIF6SPEH4MQKhOgL6UaSwRkLfITV0RITvUI4aKWhhLD4UYAV7QOmiBDZvCFRkQ4mTSwWqIYVpNf KbgLzeDJ7XTlFbS2XluaDavLO3EgIrVSDHKu8+VVlkozOqXdcIIoV1XYUuk7AbNZh2IC0PQPOmXHutQY 9YDUKoiL1nVWtrUB8LYhB3OSJmQIAFDrDeE74xnEUe PUl1T5XrSoRpVUGcUquwVAXoDBjjZhEyXLTjFuWoYNcdBQ3+ID4+VLssUP9SZQviydRkAXWaTv3VRQJg NTWxBQ2tBOBqHKKuA0L9lItjUUXYIxTtM6mirzyaTD1bFAEgO283eNkgazNqEPCsOXXgFl0CSFLpCWO0 QNGydRTtJEDjYWUKHTubZN4CbBMuXLH7wP4fASuqXM JkOHEfQ7mQMjEhhKwgHL02cGitxlSvrXFjROz+Dz4IZT4cc6ZpTRi2nfNiCEghNXW0XAwtXMNgRPFxRD SyCOH3AYE8ARQZAtYeIEMdULRwLKmoKYRfOOUses4DZPJyFND7TEB0TQKzPHKmHKKsUMriZEGkDKcbLJ F4PBTjBKWfPC0JBkNhRVEvIKJuGDzdWDHoUVBrdc2B BGWdUVUyNEtuGNUpVBKiEIFbTBnyHNNxJXR3BNM0LUVhXFVhSY2FBfMpLVGaSQi6CJeyRUOqAYZatr4Y BKKmLHHyJZz1ItBkRDDtXOCiJVsqEUFuITVrGkZsXUXuPHXyWN9JUtTdAHUcTFE6DMSnOKXvLBKclp7Y VSKvOOSzLVZiMzWvOWPaXEUiBRakMAMtZRA1XSR5VI AyNXGbPN4MCiRuWSKcNaMfCGHvGCFaDQVxhm8WPKErAOGjFmJ4VPJsNRKoKWPzEEmjSKGdZCR5ThT9AQ FsRQIyOT0GCjJwOJOpWrG6NyKgTNFcDBEqbc6GVPTyYBNpPSGvRSVyPLKaHTGgKRgmRZGzGOYqJDGvZD NfGJNzLB4ZLgSgTRFhLfPlTwSeJWCfLOMmtt2EFRZz TLUlZQFtCLIvEGPyDSFbLIhrJVWrUOJ9Qvz6BRArDSYjYA8TKeAhQQXdGgf7UCVdBYQzWRYdyp3MPXQn EZZ4NBx5LMHeFIGkKUCeVNohZRPfIJNnVJPvRMPoTQSdFE6YJtFhNOKhPZEiBQmhFEXaCGRshe4COSQo XPQ8TVY2YTTtBBOqEYDaDRmzNLSxPGJ8IpI9EOXkMJ WnEB1DRwGyYWDdZNZ1XIWxXKSoSJQqeb3YQCGrLVE3QaO8SLJlQNYdGHJoGTtoCVArZSD9GFWyKWEiGP IyHF0RFyWeGMXjUDo1JMFrJJNfDSYmmv2ZXPKuZLB8Hxn0MjAqEQBlHTJnZNdbYQMsKID2MyT6ZKFqLC NmRE6CHwJrLQIhVHa8FOSvPJEbLUEdyl4WTUGxSCL1 RQe8JXQqSFUxZYXrTZqqBLDjSDAnLXa6CUOeFFCvMI8YEmSpLKIbXmLoPYQhJUKjBNAoyi4BRFJdIUL9 MBW1QdDkJUHhHKRqEJxhKXJrJVLzOdg5TTAyYVYpZA7RNyDrFDKtQaN9JOrgVBAwYDBiip0AUDRzRGW2 RtXdIMKdQOUvDUWaQNceVTVdCYJ5LdL3GZTpPVSiVF 1YEqXrDQRpKkC6LFXdQUZkUKDlhq5KUTCxROX2WzB7UYLcYHFpFDWaUPdzJTKzSNV1OcQvYRVgYDSkGM 1WKvRuLFMlZvm7QsDmWIHxIVVjfk5MAMRsHKG7RxzkIwJiLCZuWBQfUNzqIRCtMLZ0LRS0GAUzGUYxEI 9MOeRkSBOsOld1DYVaIXYdOZRogp3TUCUnKII0HYP7 EPPyOAWoBHMtPObkRPFmALL1EgG7HEQlGHRxQN5WLzUoWZFqQrm3VwOpDVWoMOTwau2BZCLzOLO5TNBb YXYqSCUlXKCoVEugLRHmCAtxDaMxRJEqPUZyBR7XLwAsBQOnSpM1QTUdYJItFXEslk8UzKSrcKwsib4V CYiHTd6NtHjzQHU7BZzcLw1xnQL2HNSnNNMTZf1Zst AbTSPeKBUUSSpxRHWwRROyFNL3RNTbARCjTZCeZsXoD1ZbL7A2C8WpNWNqPBU0DfP1VSMlZkw7XIY5IX Y0PyG8RiDvLHHeBmGcEtVwISLqPhH+HP9hQNu+Yx8Rj0XyhyT5weIuJIt3MHV9VZ9TCDNWE2TTDh== ID Date Data Source [id number] 06/22/2021 05:07:15 PM [facility] Name Value Range Interpretation Code Description Data Kassy rce(s) Supporting Document(s) [facility] VKOXRe1uJoOJNlFaz9JvEsSbMSLzEC8npiv0Q1A0gDMgP2AztNNqh0jxD2UbM4NwAAPnFGKVJX0OrXFv jb2 [file] 69Q9+a55IO5QY7tK0PM5LhMj8c30T4K/SH9Ifa60D3 A/WI5Nog48F6I/MQ5KegnCcm83O5Bdo+C3g62OuNBE+B6zvP+8RZU2eRSanhrCveIU0R31ypIY+M54nx KJ2Z8M0n/EooxVyE4tj3E+tmwMyL6gtsjznwQ4dT6mXOfNzyo/dfJqf10T1T8yUt3SbkLObApzWevX/o A/qB/hcaYez0FkpwoM6JjFP4BakRFs/QG/XcU1LxvC 9IkIS0IoUL8JBTM2O297u3DBgJ/UolNzjk8uY3Ct3Xy+kbwW1X67cbJ0Suvg5TfVg8CxWcftSQavG0Si rS8RgcU8EvaS7QeXV3EgWb5DZPpdf+wWshbb9cR/6GWYPeoXfoO/Qd+oA+oB/QD+dz9KZj36/dn7NR1L K9Qq/QG/SwF/6Vwb8y+InIdK4xwh/aD6DjtNiej0V3 gK4f3C3S/pU5rq/j+jqur+B0Sl2zoK4Y3wjoRN+A8vvQf58x3ZCGMp/ZHgd5Gtrh9ympfkukaFuX0b58 O+qoyCvR0t64C+kanFwK4w58U+lolUaO1a34L+lfxLxE8z07D+ofcSkqe2KhoU2JmzZ1KubNn7Fukq+G +LMjtxTJH3g0Mp+evxYd+sDnj/6eigH6t91y3l6ieA Z52Aog4/fBg26UDYYoRzVhv9b12nv4l6Fctft+zhyUefOwefIK0x9MH3Gr4xmL/pWl/rwPWvpXdZzvg/ n5wOfP+9Ydk2YzqBg/eR+5gx1VnY0YP/Tr+q73Skv/dm1Rj5XgnjRkdnK04jjlh/w8z/qzKYgwkL7A7J tD/UyWj9RFd5Sib4LGr2haubv3ebo/ik8QdYSu2Jo7 QcjSfDHv2FadI/QBfUA/oB/QT+hhL/yrBv+yrp5ofrsrNtv+tTxIsfcbMzUJT0H2/NLbGm+rBLM4lIsK 3/trxzCsXCoPysDTl9D+xcOsfYk5DUFz+Pxtb/B85owbtSLoklXME3X3BW45/b0pWkgMKLCgciMe5Hfo boNWUYn0Jl99jxTCC63cXa04i/TsqsKEG57pwyN2Xt i7cz3c5lvL0MylvRcm69/5Mq/p7MliuFyaEn4cA39Wh47+vCRHrR2wjzm/zvsTuJ5ot+f+bfCvGvyrBv +zwb6rgnQxkQ1+rGcWg2Ig3VG5l/rack production worker+2VvJh12Y/GNZie+7hjdZ3aq00EcftQO5Xk1I/meywQaeO8t3L L+xDdaO/JP0jA2zf6eW+ro5A862Ob4TOelj965VWg/ aqY+jihUXr04Nrw+i9o2OGWux0X75CcME+cYeoFeoFfo1/7hV4ZccGEK1FzcZ/QOvUPfoe/43cDvBvQD etjraW/Y43ZL9t+eY+cTMdL0px2dGlUA7M44m95L55X86F07Bj4IUyd6D/QD+tZ4rK7ls4cs/EPDT3kG G7A3YG/V2iO2YUvX7wrmMxywbVgah3N9w6+V+uNftc uM5cmZuR1yU6oGIr2f/l4ye6Gmk/NoKPQKPZ6/iF+1gflqHP+5DYfeoe/Qd+gD+oD+xJ/fIMoC7gpUj/ fBNs/6nDbP+pxW/lUdQ6/Q65n/36ml0EQpDqxYTv8bsK8xy1IGex8/s+zNZ/c8+YU2jz/Z0r/K51T6V/ mcTf+afwl1qt7Q9p50hjc/tY9v/gy7hDqOX+qXvXW8 2dffX8KmP3H/7lj31WjmKTJxKV5v4XE4ia99md2Ujn4kkcR8R2/UU3/dq5upTxNYTsFKlJS1kFJT4ZxW 0ThYk9EbDRhTSzYU3WV5AQ/+h+Vf7eMG/bI3/3PmB/fxsUtgb+YIn8gNI348DcfuexS2b/xLKen5j/La Ca5vxq/WdXc9+VDP+PZhUu5r2Kd/AzQPJ55KZk/eF1 jRcJC025d2Ac/QO/Qd+o7oU29giuP66pon4/51HdAf/9yoW5ri/9nt+V8cLp4Lm2Bd5Fy7Qd+gb9Cf+L PbWb/dheOuRXiax4O+oB/QD+gnzn/8K4d/5mPzaLl7Af2Ey1Mw4TB02A4koaz3Yi1ZzsZ4yCeD3iF5O+ xtE/rzPHI/+XF5N4qMPeQS7VC4u87ws4Mc/KD7WY/k ftYjuXfoO/QBfUA/oB/QT+Iza+njlUy8F5ty4zZ1fV+gVeoPeoG/Qw95+/AfiMV5d65xjUHcjO+QHHflB S58BvG240Lq3AG7F3ppjsxOyWSVmX+N2YM5Hu/Rq2Atkrh3aayQJRuqzIy3XLozG5JquZ7TrhX75Bn5/ yuFfOfwrh3/x0E77uC8NygkkSzB5fH8We2KouIMRRa xGK00NyK063Xg3tZoWlvAg5Xr3eMK+npifJ+wecqy0Uh7bxG4j3zlZ+PodhgvTnwvmv1k2ZjdnIMUpJ/ zKEb/yeeKxjvVXPs/zqF/nfb9fF/FOsTEn6Gt4Jq0C58Ts8Eb3Xg7XskAj2Tq7U/oB/EUs3czkTnxvuL dgL/POOr197yPQsbjKjuMoqIdpSnaLiSu+oA/oB/QD +gn9uX+2vbh91uG2XH/QK/PtZ8Conp7983bxD5cUW+aRS2mcAbnyed00cX53XNz+sCM/2OFfdfhXHfGr epnDJ47hWd/YkR/guX24p0y0xRuFi9wKJlE3DmcH6mvsWxybbCdsy3Iov83FbjqebsW5sg4PrzfhnjE3 sr8LtuuvqeL5vE3pHtcgyx56kR83BXt+sCM/2JEf7M gPduQHO/HIBuxUbbrtW27eKc/YkR/zuR893Hx28fDn+cGO/XFHkqJjR2bXN+kLY6biLgbbli08gD50HM d+sCM/1KJu0QiRmvJMQ/HHVnwDtttvZ91fKi/YkR/klH177Pu78uXm+cGO/PZBsuL30ynn/eQXep/Qn+ dvx/qrjvVXHeuvOvyrHsd/0vRA46Ssu+5l7aW2AFhU 4ws8FmHpt0V2k3E4LsIt4f618sgac2gLYbn+VQ90W0gbQ74T75Njelx7AK//sd7Z3fIs3iemW/9qvQv3 9K9Kn++/+z6keu9ntjQmh0g8dn6v8Gxg23lL75C22Um3AQ8PM8Cj0U/s43JqG6mVY+aHG1uPvugyF27g 9Aa9QX/WM/W79zI88xS97Z35t093e7+6z3Pl8E/ocX 0ave7uml4wys0nmy7npL3qG+gNeoO+Qd+gd+gd+rack production worker/qtB2vPd/kmdpSp9tCo67+6odi+VfWc/vnvqyWP 8NY5HqHJ3Ok48WIqwPgX+L5V95/yszX2bX31ixzAiap0/KXFgs/8ok9Sf+HBm/8qjnf40iOMuM3zQsrs zVgoWs+jLL/3Dqy+Py6A8aWx2342UYPG3V/rdTXxZy 6diJZv7HnLgNoKz+00E9Ma75DgNkqrPtQlyT5HToeI083UkrXf66f+kpTdnQS1zb+qJ+MBC/mllc3DLX F3NE3Qq7O4+S5Vy7WnbeL5QRBgli1Eq8Om5Xk1R59Uu6Bu3Zb403A/XnKBojHU3XjA/CzvrnsLP+Oeys f470r/Wf4YG3yQ0KE/SQtEr1pdgFh4lmHku3AHng+V fPMfQd+g59QB/QD+yK6HE1vh6EL/mj8JM/ChfoYa/AYzw0baQe0B37Ak5O74Y1/G7H/3X32FM5xQ6RH1 E/+bLosLfDXuQHA/gKNY1meZ5Y1PnQ+jYDkaXDGzlqHhB2hOZ+MJAfDOQHA/WD0c96/vqHjh4feCL1F2 YdAJxJfvG0M8Qr4Tg7Cf4OfH5F3vpP7grQFW0y7snL EXgeRYc+oA/oz/M34jx/Q907rIzFtn8o0ErkNOIG6Fk+NaeaV5nw3Jn3Kk6BshTc5En5sK/nKmC1hxoj HifGqS+IsxrOWnb6kbhbrocmjJ+QsyKgIT31JhwVExzg4UzWQSIkPtI2dko+GYnHd6J+82XrWTxPvixm 1pflcYe+Q3/gd5hthYq+FZheF9y08jamvbxupSc+bF bdavwrm56yTDgqHx5TAnfCXu+ev+W69TWnQeCb86gJu/yeuI56fvL2ZmtGXCb22orsLf0xG/niJ3puNt x/4vzz/J/MD+7j8/+SFcnTA4s3IQ6f4/QZ08h2BOUmosuv0NTZk4cyS7B/LAKHWINDER/uMbDyPjVlfr+jJ+R8S [file] Y6f3BSYhKTioOR1ropHgHVTaQuegBc4mhPM6ODOaSagWWy2Mh5GpifU5snVuKfJeXnW7FtZyOG0F ID Date Data Source [id number] 06/19/2021 08:09:55 PM [facility] Name Value Range Interpretation Code Description Data Kassy rce(s) Supporting Document(s) History and Physical [facility] VRZAFa8bPgPSXnHm66/GRSkkKDXzg8QmBEruPZe7KTlwMPOlB0PuOVB4qR0zKAC0GBwQVvLxPlZtUTB3 lbm [file] ICAgICAgICAgICAgICAgICAgICAgICAgICAgICAgIC PcTTHlHJIxBAFvJELdWLNmLWUoKJThME9XPQWmGDFqJKGmFKQqPNZhBLLyAYWnPAVyMPPrXJRgILRlMW AgICAgICAgICAgICAgICAgICAgICAgICAgICAgICAgICAgICAgICAgICAgICAgICAgICAgICAgICAgIC NmDRKtPC4FSQGpPSFfTFVzSNMdGTEgHZWnESGsVDTt ICAgICAgICAgICAgICAgICAgICAgICAgICAgICAgICAgICAgICAgICAgICAgICAgICAgICAgICAgICAg IDMpOMUyWJSkZKJqTDXtLE3OJEXuDBSnXMXmSIGkWFFbSODjFKOnKCNgIOKqSYXjDZUxMXQlCLReRTBx ICAgICAgICAgICAgICAgICAgICAgICAgICAgICAgIC FyJCIuWAVpAHDiPZLkIRFcYQSfHFAcFAOyGN6XEXYpGZGyVDNsPMOuSLZtZSIfHMFbTEJpWHHuZSXsOZ AgICAgICAgICAgICAgICAgICAgICAgICAgICAgICAgICAgICAgICAgICAgICAgICAgICAgICAgICAgIC WpSSAkQZWnYC8QNTIqWCHsERWsROBnUKCcHYOpMVSq ICAgICAgICAgICAgICAgICAgICAgICAgICAgICAgICAgICAgICAgICAgICAgICAgICAgICAgICAgICAg UWVoDPNxJUFlZFMlCOJaKZRnWU8VVWJaIYLzKHPgXTAmTBLkSDEyFYBcIWDxGZGpICNcKMQkFWNwXTNf ICAgICAgICAgICAgICAgICAgICAgICAgICAgICAgIC ChVFOpILJhZBFmDBNxCJWsVKTbFSOsGNWqZDEzYC3KOBIcKSBoGTMmKHYzPLZsDJVqWKFvSUNqCSXePC AgICAgICAgICAgICAgICAgICAgICAgICAgICAgICAgICAgICAgICAgICAgICAgICAgICAgICAgICAgIC JkINLlMJSxZJRhSE6DOFIeEFQvTGKnZRNiATUtEXOb ICAgICAgICAgICAgICAgICAgICAgICAgICAgICAgICAgICAgICAgICAgICAgICAgICAgICAgICAgICAg ROTwAVFyGYJnEHYgZPDzRMUoCCCaEA4QOKWnDMPmJAWiADNwUMKvBLMiDZBgYHNaXNGeGGRnZHUsUNVh ICAgICAgICAgICAgICAgICAgICAgICAgICAgICAgIC TbMGVvGTJiAGYsUNYtCSMyRDEvRTDjBNMuVLAkSTHsNW4BAF85qSBvo0Q3ALXiKN2hmkx/Hi7YESizak EjnPMfUE4JGaOzZS6elv5BFnVwSG4xmc2EHUtEMeCbH2I9xVFtEKUfHYFTFkOgT63hXEwmOm77SCesPD VoXyZlASj8Tm6SUuPxQ9wsQUSoWoB9LCSuRiB8LWWk ClH3FMEaUaGkVBFrRMXzDJRpIBIIRZS1XSViMuMxUuOpEHDbYHbvEAHYEBTvHBLiIbDcNbLlJUMgJO8H FVGbU998atZnUIEJGw3+KApezvAfUduJGgWaNWIib9CxJNc3ZZ6ZHWRaOgaep2PzHFEnJXGIZGugZB1Z MOV1GLFwCSDvEg6YGQHgP205trPqYQ9NBx6TMnByMT 3tan3VFFVgIKMaNipZRtr8FXbyLH6ArAKxDYjXUwSrNvlxVLYhoH8jcBPGMFNyc9vlcIAwrFTaPD0tCS 3sNDYbAWClWtL8OYDUUT4LDHUxZYQnnFPmHQLjTUDMWS9EXJfvKUN3GZIdkjBufGQeVSdpLK3JGQCasm QgNTEgMCBSDQo+Rx8ZNI1jc2VoOWk9FoTsAQ9nyu5Q MSdWMrInR2V3lVKqW0P0KYykLw4KZZOtLXUkZBvvPFCQCTsvAU9OOS0lixU3JX0EuDNvLZXnKGYozYPz URv3I00piUCcIQyzHI4XDPH+Arnoldo+Ul6SHDCuBCGkHXNjClMePCERMaMiB1FcZ9AFq6NvI6DfLV09bZxq hfFaIGsmLF9KMJ6lQUGkSTTZDH8LlROvkV0iahP8AN QiARZAKkIrH69isRJaBNLsMFXiZBQtAa5LIKDjE7QesbZqhQztwjXeOCXvFHIVUS2UKKafavBgzCRayU nxOJ57uOwkNN3WSh3OKsXgKN7mvu5HsQVoFi9JGXB8XY3WHBSuFDAaKXFuPTC2HWLgRqChHExlBRWaSI QjVVI4TGBxUBKlYH0PPpTeJYXbVkC4JIDuIMTjESSu ig7NSZXeLXL5KTJ5QhBvGCZtGCVqUUowSSIyTICuHQU1ORHzFNIgDH9RCoAjQVBlLGX6WUPbGANmJAJs wi0XGXBxQKOgIGrsTCDgTNVbFSZaSZmiMEMpLJA9CXXwGJEfRSLpFP5YHqIbIDXtIFr4POBuOVFnXVUd qz2UWSHjVVSpHfB6RYPzUSCnHNNrMSrrVQRmRVOyTF U9GWRhCXGbNU8LOpQhPWZxXKM9KPQbZUTrZKDshu2IEMVyKUQmXbj8JLObLTAxZYDsWIgjFDWoYYWxAE p5WOWiRWEfTM3XZxJwCDErUgPlHYGbYAFzAFZkwx1OYZTvTYCpXVL2YVGcUDVgKFUmBUilEQTaRPF9GT S9LRGoWGDwCL4GOeEaXGTjDprvFzfjPXLsYABpkj8G PFTjLEZcHGW3MDAmEOIdNNZbHFdiGUHlYKLmVDZ5CQAiFSBzRJ7NMiMjACRmKdV4VmWoGPBjPEUbfh7U SZRcQZDwHPV0QRZoSPBjHKIaKKrrYQUrDPD4RDGcOGKbUYMcNG5AKjDjOEMfYktoWJvkZQCpZQXwfi4U JPPiNMBmUlFxJjVcYHIiRUTxSHvoFFXyPEO2ZKqpIA MkMSBqAD0JOpXjTOLnTho1UOEyVFVcFKLhyo2SSHHvOVIbDRs0WjKnIJTpTWUdICjhZNBeNNK7TPPhAU AfRBLrBX0TIdFwQRNlZVUjEgQgXPPxUJQzwb4QRQWlHFC2JPDaOxMkBGGrVCPjPChnPECaXVKfYJncLA OwJYDoDR7HXxGbMRLoRVHvMagoHGOpJDUnfl1WXXZp DKF5UAX3FoTvWGJoTGFzAGnyATDtOHBcKWO2WORlDOQjTI2FTaFeNMJoVrHrVNtzLJUgOZTuev6SFZWw NTV1TiGiKAOrMZVnGXRfCVeaDKJrAMA2WWF8NUCgSHPqCY4ENdHnUGTyJgNrFIZrDXOxBBCgnb6XBTSn UGS7WNS0SYPeVTGbNTSaAVpqDGMnTMC1Qcf3SBTyIJ VuPC9WKbCrGMPgTkK4RqVuOUUlMFDonn0HSNTmKIS0ZiYzIBLfYEWmCBAlNZypEWJrSOA6UzIdIAPoFO IuJU0SRvLhPJJxMvY3XWNjSOHlEVHcuc3EFYWuUFH4XDk5AOLkOEUkSQUsTGdvOIOkCGlsSNR1YAQfIA AxUY4BOyJqILSxQcMdHaImOTLhCFRxia5VCWCsTTV4 AxOrIGPuCDZwPJFuIJrfRXKjURrzLkT4ARLdIKSbAX9NIyDsAGSjWwSsFaQpLYGqGCOxfn9XDFNvZOJ5 OUHuHdZaAPOfTIOlEHicJPNkRMn9Plz6KNMbJRIhSU2RGgBiMFOpZcH0WuYtGIXfOLHwsp6DvBVivMll uf4FTUhTTw0YoTygRTZ5LIzvGp1ojRH0MbOyGHKJFx 8XrgTlKCMnINFBTZhzHAHgQJPzNlL5JseuXkWsMMJwIDS0DFYpBMMyATSkAmTyTfB4ReK3QjBlBoVdAK TmPlIqUAWnZYgqULZdVRI6PYOtGTL2JyM+ST8nHDc+Lf4Hf4TbnoO6beLqMFv9FDT7CO5IWNFJN1VFMq == ID Date Data Source [id number] 06/19/2021 04:10:54 PM [facility] Name Value Range Interpretation Code Description Data Kassy rce(s) Supporting Document(s) History and Physical [facility] ODZDYl1uJcGAMeLb43/XKDcvYMPii1AiXJldNDb1YIixRUBxE2PzAHF3eC3tYXC9SIqIQkSvYdEcNYO1 lbm [file] AgICAgICAgICAgICAgICAgICAgICAgICAgICAgICAgICAgICAgICAgICAgICAgICAgICAgICAgICAgIC AgICAgICAgICAgICAgICAgICAgICAgICAgICAgICAg JGPxRT1WQYGkWXFeXVAaUETyJVFeEUDhRTTfSHYlYTXjICSjPEWpUTGfCFDzMAYcIKVxVGBpRYUtCHWc PREkSTPcTIFtBIWvFBYyPXWrNEJfPLGpOJRoIAKnTORuURNfQTZoFAGxOYIbYQ6LZDRlZINsVKUoGABp ICAgICAgICAgICAgICAgICAgICAgICAgICAgICAgIC FvOGKfKTArVCEaOUVyMKWtYJUkKPPwYLBsWYPdLNOePZJcCWYpDQSeZVPuJNDnPISrQGWwKYBoCQ1KKY AgICAgICAgICAgICAgICAgICAgICAgICAgICAgICAgICAgICAgICAgICAgICAgICAgICAgICAgICAgIC AgICAgICAgICAgICAgICAgICAgICAgICAgICAgICAg AOTmROLyUO0JPVGwLXSlQNHpDNBnBZEgNEPrEOGpZKCiZOTaVLRlOHWjTNXzGGOkPKKkZURgRDYjMCMq IUGpJKVlCHBlHTNoUZZoCDOqJYBnHWMxTGAhTJThHPUjDLYaRYYuBDIiURUdVLKiZJ3PQTEpKNHaBFXh ICAgICAgICAgICAgICAgICAgICAgICAgICAgICAgIC AgICAgICAgICAgICAgICAgICAgICAgICAgICAgICAgICAgICAgICAgICAgICAgICAgICAgICAgICAgIA 0KICAgICAgICAgICAgICAgICAgICAgICAgICAgICAgICAgICAgICAgICAgICAgICAgICAgICAgICAgIC AgICAgICAgICAgICAgICAgICAgICAgICAgICAgICAg WMUpQBDjNSQvDZ8DAAIpXCZwRCEuBDLdOQLrXYFePRLiGZIgAJOdXGFtFBPuCZIaHOGnLJRuDLEzHXTx KEOhGCUnIRAjBBFfZCYdPIRiOPOnXCEkIXKvSWGdSVBzZIDtFAFkCXMsRCEtCGXcZMAlYV2TMDKePLPg ICAgICAgICAgICAgICAgICAgICAgICAgICAgICAgIC AgICAgICAgICAgICAgICAgICAgICAgICAgICAgICAgICAgICAgICAgICAgICAgICAgICAgICAgICAgIC MvUB9UAOLnTKWvMEWySGCfQQVnBDBbOLUcYPOqRYGtVQQxQRNwKSUyRTIbVBXcKOZpIKSzRGXfFOTdGB AgICAgICAgICAgICAgICAgICAgICAgICAgICAgICAg MBPuXETjGNIzXHYjFL3AVZ04yZIij2M8RCKeFT3lxce/Ex7YPIvcngOhwPXnYZ2VNfJaHA8ive9AZjLb YE6jdy5MKTmTFrLpT1B9pEOmVKElZYOIJqDwC06hXPoeAb01KUcpKFAqVgQrPSp1Sn9NRjBjX7kiDWEl OjD1NNGlCeR3VYSrPzR5FTEeAxRwNPEkSGOlEN4AUI HvU547juXfXB3TKi6GEaEjVU9uvo3JPiIyOASxJrrXHvf7EHfdCW5NnXTanGTaTkLkESUHPxIvQ8obx9 OuAbIeCULFDNntIU9Xn4EheCBqQLk+Kz9GHM1ud9UgJCfrQrFbXU0jql1OALdDYbFyR4RifQopUThhYD GvdZEYOSChIOHhRAeoTlP7ZALRPBHqfAAtLT7pGD8o WTClFHYxCpD9OSWRII0CBVNnHDDgoFWnMEXoYNKJKK1AYSvlGYH7UGVpxjLgtCVhRVclOB2WISNpnfBw MzEgMCBSDQo+Mc0JWD1vi7UwWJcpGtGiVR5lyd1OYOpHWfZsC2V1pHBuJ5Q2XRunPb5REQBbSBLjYvtz UXVFCFxiEZ5EXW6yzeK3PY4BbFEyDUKcTWMjnLTpDG p6E97uyCRfQKneYB9DNJC+Arnoldo+Ek2ZSWShJEWnGROxIbKzABIXHoXuK3NdV0QJb4EeT6AoBA91lLkhcg FzQQjxGM2RZJ6oEXShPYYSYN0VoXAozQ3wmuKqQZLpPRDKFlYmH06jkUFzECPuEXDdTHLaRb0QOYVmP9 ZahjUmiEtvafLxJJZlAQZXNR4PVIawgjRbxYYhmDje UC96eQcoZY1TQv9GHpYnPF8zof2DfWHxBv9XDTArTH9AUIQpDVEyUCRuBZD3WRHnLyMaZUjwWSFbBGPu IVQ2ZEMwFZSjPB8OIjRrHJEySlb2YOLnHKWiSBGffj3RCVMuEBUoNCX0NyQjWYOgRIEkONzsYMQsJCBc JMF3RHKbCMJgSF3ZJaKmQMCiDAD6IDMhJPOhVDOolz 3AYJFyRGZjGdD4BXUmREDpMVZoBDorOGVjJBV1UUF7HYDeJJZeKC0UOfLiEUDtPXW9LkKvGHVuWHCfhh 9SRDXzJLPlSXQgUJXnUMMlPEJlPVakVKQqPEL8AdM1XZUcXGGbIE4NHrMyTKZsYGM0OAAtVEEvQQPtab 8WCWUlKIVcZMb2RPLtRUTaKLZgSPlbCDFaACPxVUE8 YSDtKRRuOR7UZzJnKMAlPNZhLQHtQDCaGWJpnt2TBNTyCBZvKyP8LBUyMDDgZDBnZXuqAEQfMXW1ILN8 LNCxCNUdPY5PLtCoXYTdXSPvHLfwJFPmSKYaqs0FGFQtEBXiBXSwFrExQOYjQZTpELibHQFpCUV8QYw5 VWWsESHwZO9NVkYqCGKpSIM9EUGqDQKrQNPtzv2FFO JpDNVvQMo7FjDqEUEpCPGzDRjlJRXaEGP1CrUxZHScPSRgFN7OZyDhKTBvDve3PNZgMPHeQKHpdy8SRK JwBYLsTtu5DODyHHCyKYFuBFvoAPYhSHG6WAE4LBUyZYGuFR5XXdOpXNLhCktaMwMcXYQqKDElxv8IAJ IjLRZmLDXlAhGsWVUaKOXlJKamBBPpZIO4NcWtNGAe LTXuPF4QYtAfTCGbTcg1SSYfGMYpRQOlcb6HJODnUSAwCUaeSwFpRPJrFOOwUQqcHBDhTMQhMochXERt NUQeNQ4PGtTkDXJfPxS7VVNoAOHoVFOghh4ODUXxNXJbADD4NgRpVKXrHXFgYOh8drJodHKhFEi2BF2K H5ImaiMkWpVVVy2Gy037PXSbHUZfNx4KY1cwOq9pSN DlVETHLb2RDTy4HKt2XORkHFJ8JoT8QuGzKxWmNUJ3GER6UOCsCnW0Oqd+DCd2ORVnGpBrSDYfZpvtT1 R8SpN2ECqcTJz4K8QpUfTrBR2zUYDNLz8+LHsrvHFxcLppCUWHYpEbFLU7OYezKIFQKd3T ID Date Data Source [id number] 2021 03:29:00 AM EST [facility] Name Value Range Interpretation Code Description Data Kassy rce(s) Supporting Document(s) SARS coronavirus 2 RNA [Presence] in Res piratory specimen by IRIS with probe detection NEGATIVE [facility] This lab was ordered by [facility] a nd reported by [facility]. ID Date Data Source [id number] 06/12/2021 10:48:00 AM EST [facility] Name Value Range Interpretation Code Description Data Kassy rce(s) Supporting Document(s) SARS coronavirus 2 RNA [Presence] in Res piratory specimen by IRIS with probe detection NEGATIVE [facility] This lab was ordered by [facility] a nd reported by [facility]. ID Date Data Source [id number] 06/01/2021 11:01:00 PM EDT [facility] Name Value Range Interpretation Code Description Data Kassy rce(s) Supporting Document(s) SARS coronavirus 2 RNA [Presence] in Res piratory specimen by IRIS with probe detection NEGATIVE [facility] This lab was ordered by [facility] a nd reported by [facility]. ID Date Data Source [id number] 05/20/2021 12:33:00 AM EDT [facility] Name Value Range Interpretation Code Description Data Kassy rce(s) Supporting Document(s) SARS coronavirus 2 RNA [Presence] in Res piratory specimen by IRIS with probe detection NEGATIVE [facility] This lab was ordered by [facility] a nd reported by [facility]. ID Date Data Source [id number] 02/23/2021 12:54:00 AM EDT [facility] Name Value Range Interpretation Code Description Data Kassy rce(s) Supporting Document(s) Opiate Screen,Urine Negative Normal (applies to non-nume claudia results) [facility] Barbiturate Screen,Urine Negative Normal (applies to non -numeric results) [facility] Benzodiazepines Scrn,Ur result Negative Bhagat [facility] Cocaine Screen,Urine Negative Normal (applies to non-num clementine results) [facility] Cannabinoid Screen, Ur Negative Normal (applies to non-n umeric results) [facility] Therapeutic Drug Ranges for Emergency an d Rehabilitation Threshold Levels (ng/mL) Cocaine 300 Opiates 300 Cannabinoids 50 Barbiturates 200 Benzodiazepine 200 Methadone 300 Amphetamines 1000 All positive findings are presumptive and unconfirmed. Confirmation of positive results are performed only at request of provider. Unconfirmed results must not be used for non-medical purposes (i.e. pre-employment and legal purposes) ID Date Data Source [id number] 03/07/2021 08:09:00 PM EDT [facility] Name Value Range Interpretation Code Description Data Kassy rce(s) Supporting Document(s) HCV RNA Detect/Quant,S result Normal (applies t o non-numeric results) [facility] ID Date Data Source [id number] 03/07/2021 08:09:00 PM EDT [facility] Name Value Range Interpretation Code Description Data Kassy rce(s) Supporting Document(s) Hepatitis C Antibody Screen Negative Normal (appli es to non-numeric results) [facility] Supplemental testing for HCV RNA is orde red to rule out active HCV infection. Wchlus-by-pginzv ratio is >=8.00. Test Performed by: [facility] [address] [place] [id number] Manager Sports: Eris Mack M.D. Ph.D.; CLIA# [id number] THIS IS A STATE REPORTABLE COMMUNICABLE DISEASE. Hep C Virus Qnt (Rfx'd) 880712 IU/mL Undetected Normal ( applies to non-numeric results) [facility] Result in log IU/mL is 5.59. ---------ADDITIONAL INFORMATION The quantification range of this assay is 15 to 100,000,000 IU/mL (1.18 log to 8.00 log IU/mL). Testing was performed using the leda HCV test ([employer] with the [employer] System. Test Performed by: [place] [address] Manager Sports: Eris Mack M.D. Ph.D.; CLIA# [id number] THIS IS A STATE REPORTABLE COMMUNICABLE DISEASE. ID Date Data Source [id number] 01/28/2021 12:58:00 PM EDT [facility] Name Value Range Interpretation Code Description Data Kassy rce(s) Supporting Document(s) HIV 1/2 Ab p24 Ag Screen Nonreactive Normal (applies to non-numeric results) [facility] ID Date Data Source [id number] 01/28/2021 12:27:00 PM EDT [facility] Name Value Range Interpretation Code Description Data Kassy rce(s) Supporting Document(s) Magnesium 1.80-2.40 Normal (applies to non-numeric resul ts) [facility] ID Date Data Source [id number] 01/28/2021 12:27:00 PM EDT [facility] Name Value Range Interpretation Code Description Data Kassy rce(s) Supporting Document(s) Sodium 141 mmol/L 137-145 Normal (applies to non-numeric resul ts) [facility] Potassium 3.5-5.1 Normal (applies to non-numeric resul ts) [facility] Chloride 108 mmol/L 98-112 Normal (applies to non-numeric resul ts) [facility] Carbon Dioxide CO2 22.0-33.0 Normal (applies to non-numer ic results) [facility] Anion Gap 4.0-11.0 Normal (applies to non-numeric resul ts) [facility] BUN 15 mg/dL 7-17 Normal (applies to non-numeric resul ts) [facility] Creatinine 0.70-1.20 Below low normal [facility] GFR >60 Normal (applies to non-numeric results) [facility] Result based on MDRD formula. Glucose Level 72 mg/dL 74-99 Below low normal [facility] The reference range is only applicable w hen fasting. Calcium-Uncorrected 8.4-10.2 Normal (applies to non-nume claudia results) [facility] Corrected Calcium 8.4-10.2 Normal (applies to non-numeri c results) [facility] Bilirubin,Total 0.2-1.3 Normal (applies to non-numeric results) [facility] Bilirubin,Direct 0.0-0.3 Normal (applies to non-numeric results) [facility] SGOT(AST) 71 U/L 14-36 Above high normal [facility] SGPT(ALT) 68 U/L 9-52 Above high normal [facility] Alkaline Phosphatase 94 U/L 38-126 Normal (applies to non-num clementine results) [facility] can increase Alkaline Phosp le vels up to 2 times the normal adult value. Normal values for children and adolescents are 2 to 3 times the normal adult value. CPK 31 U/L 26-192 Normal (applies to non-numeric resul ts) [facility] Total Protein 6.3-8.2 Normal (applies to non-numeric re sults) [facility] Albumin 3.5-5.0 Normal (applies to non-numeric resul ts) [facility] Thyroid Stimulate Hormone TSH 0.358-3.740 No rmal (applies to non-numeric results) [facility] ID Date Data Source [id number] 01/28/2021 12:27:00 PM EDT [facility] Name Value Range Interpretation Code Description Data Kassy rce(s) Supporting Document(s) C-Reactive Protein,Wide Range <3.00 Normal (applies t o non-numeric results) [facility] ID Date Data Source [id number] 01/28/2021 11:43:00 AM EDT [facility] Name Value Range Interpretation Code Description Data Kassy rce(s) Supporting Document(s) White Blood Count 4.8-10.8 Normal (applies to non-numeri c results) [facility] Red Blood Count 3.68-5.22 Normal (applies to non-numeric results) [facility] Hemoglobin 11.2-15.7 Normal (applies to non-numeric resul ts) [facility] Hematocrit 34.1-44.9 Normal (applies to non-numeric resul ts) [facility] Mean Corpuscular Volume 81-99 Normal (applies to non- numeric results) [facility] Mean Corpuscular Hemoglobin 27.0-33.0 Normal (appli es to non-numeric results) [facility] Mean Corpuscular HGB Conc 32.0-36.0 Normal (applies to no n-numeric results) [facility] Red Cell Distribution Width 11.5-14.5 Normal (appli es to non-numeric results) [facility] Platelet Count 200 X10 3/uL 130-450 Normal (applies to non-numeric results) [facility] Mean Platelet Volume 9.5-12.7 Normal (applies to non-num clementine results) [facility] Imm Grans% (AUTO) 0 % 0-2 Normal (applies to non-numeri c results) [facility] Neutrophils % (AUTO) 33 % 40-75 Below low normal [facility] Lymphocytes % (AUTO) 54 % 21-46 Above high normal [facility] Monocytes % (AUTO) 8 % 5-12 Normal (applies to non-numer ic results) [facility] Eosinophils % (AUTO) 4 % 1-5 Normal (applies to non-num clementine results) [facility] Basophils % (AUTO) 1 % 0-1 Normal (applies to non-numer ic results) [facility] Imm Grans# (AUTO) 0.0-0.5 Normal (applies to non-numeri c results) [facility] Neutrophils # (AUTO) 1.5-8.1 Normal (applies to non-num clementine results) [facility] Lymphocytes # (AUTO) 1.0-3.1 Normal (applies to non-num clementine results) [facility] Monocytes # (AUTO) 0.2-1.3 Normal (applies to non-numer ic results) [facility] Eosinophils# (AUTO) 0.0-0.5 Normal (applies to non-nume claudia results) [facility] Basophils # (AUTO) 0.0-0.1 Normal (applies to non-numer ic results) [facility] ID Date Data Source [id number] 01/28/2021 12:58:00 PM EDT [facility] Name Value Range Interpretation Code Description Data Kassy rce(s) Supporting Document(s) Hep Bs Ag Result T-Test Nonreactive Normal (applies to non -numeric results) [facility] ID Date Data Source [id number] 01/28/2021 12:58:00 PM EDT [facility] Value Range Interpretation Code Description Data Kassy rce(s) Supporting Document(s) Vitamin D,Total (25OH) 30.0-100.0 Below low normal [facility] Reference Range: <10 ng/mL: Deficien t 10-30 ng/mL: Insufficient 30-100 ng/mL: Sufficient >100 ng/mL: Toxicity possible ID Date Data Source [id number] 01/28/2021 12:58:00 PM EDT [facility] Name Value Range Interpretation Code Description Data Kassy rce(s) Supporting Document(s) HAVM Nonreactive Normal (applies to non-numeric resu lts) [facility] ID Date Data Source [id number] 01/28/2021 12:58:00 PM EDT [facility] Name Value Range Interpretation Code Description Data Kassy rce(s) Supporting Document(s) Syphilis Serology Nonreactive Normal (applies to non-numer ic results) [facility] ID Date Data Source [id number] 02/05/2021 11:02:00 AM EDT [facility] Value Range Interpretation Code Description Data Kassy rce(s) Supporting Document(s) Cannabinoids Confirm,Ur result . Very abnor mal (applies to non-numeric units [facility] Carboxy THC GC/MS Conf 106 ng/mL Cutoff=10 01 Performed at: [address] [id number] Manager Sports: Ban Gaxiola MD, Phone: [phone] ID Date Data Source [id number] 01/27/2021 05:02:00 PM EDT [facility] Name Value Range Interpretation Code Description Data Kassy rce(s) Supporting Document(s) Color,Urine Yellow Bhagat [facility] pital Clarity,Urine Clear Bhagat [facility] ospital Specific [place],Urine 1.001-1.030 Normal (applies to non- numeric results) [facility] PH,Urine 5.0-8.0 Normal (applies to non-numeric resul ts) [facility] Protein,Urine Negative Normal (applies to non-numeric re sults) [facility] Glucose,Urine (UA) Negative Normal (applies to non-numer ic results) [facility] Ketones,Urine Negative [facility] ospital Blood,Urine Negative Normal (applies to non-numeric resu lts) [facility] Bilirubin,Urine Negative [facility] Positive Bilirubin is no longer doublech ecked. Bilirubin may be elevated due to urine color interference. Urobilinogen,Urine Norm 0.2-1 Normal (applies to non-numer ic results) [facility] Leukocyte Esterase,Urine Negative [facility] Nitrite,Urine Negative Normal (applies to non-numeric re sults) [facility] ID Date Data Source [id number] 01/27/2021 05:02:00 PM EDT [facility] Name Value Range Interpretation Code Description Data Kassy rce(s) Supporting Document(s) WBC,URINE 0-10 Normal (applies to non-numeric resul ts) [facility] RBC,Urine 0-2 [facility] Hyaline Casts,Ur None Seen Normal (applies to non-numeric results) [facility] Bacteria,Urine None Seen [facility] Epithelial Cell,Ur None-Few Normal (applies to non-numer ic results) [facility] Crystals, Urine None Seen [facility] ID Date Data Source [id number] 01/27/2021 05:02:00 PM EDT [facility] Name Value Range Interpretation Code Description Data Kassy rce(s) Supporting Document(s) Urine HCG Negative Normal (applies to non-numeric resul ts) [facility] ID Date Data Source [id number] 01/27/2021 03:52:00 PM EDT [facility] Name Value Range Interpretation Code Description Data Kassy rce(s) Supporting Document(s) Opiate Screen,Urine Negative Normal (applies to non-nume claudia results) [facility] Amphetamine Screen,Urine Negative [facility] Benzodiazepines Scrn,Ur result Negative N ormal (applies to non-numeric results) [facility] Cocaine Screen,Urine Negative Normal (applies to non-num clementine results) [facility] Methadone Screen,Urine Negative Normal (applies to non-n umeric results) [facility] Cannabinoid Screen, Ur Negative [facility] Therapeutic Drug Ranges for [...] and legal purposes) ID Date Data Source [id number] 01/27/2021 02:00:00 PM EDT [facility] Name Value Range Interpretation Code Description Data Kassy rce(s) Supporting Document(s) Respiratory specimen severe acute respir atory syndrome coronavirus 2 (SARS-CoV-2) RNA Negative (qualifier value) [facility] This lab was ordered by [facility] lola and reported by [facility]. ID Date Data Source [id number] 01/27/2021 02:35:00 PM EDT [facility] Negative results should be treated as [...] Certificate of Accreditation. Factsheets for healthcare providers: https://www.fda.gov/media/736286/download Factsheets for patients: https://www.fda.gov/media/858885/download The ID NOW Instrument is a rapid molecular in vitro diagnostic test utilizing an isothermal nucleic acid amplification technology intended for the qualitative detection of nucleic acid from the SARS-CoV-2 viral RNA. THIS IS A STATE REPORTABLE COMMUNICABLE DISEASE. Manual entry verified by Jessika Villareal 01/27/21 1435 Test Performed By: [facility] [address] [place] [address] Director: Trinidad Zarco MD Name Value Range Interpretation Code Description Data Kassy rce(s) Supporting Document(s) ID Date Data Source [id number] 01/18/2021 01:26:00 PM [facility] DISCHARGE SUMMARY, ADULTDischarge Diagno sis1. Opiate abuse, continuous2. Hypotension, chronicPreceding HistoryPreceding history / Reason for [id number] female who presented today for getting detox done. She usesheroin 1 bundle per day, last use was at 6 a.m. today, Sylvie 1-2 gram aday, last use was 1 week ago, meth 1-2 gram daily and with last use 2days ago, cannabis daily a couple of buffy. Today prior to coming [facility], the patient took multiple pills of the [...] schizoaffecivedisorder, bipolar, anxiety [facility]. Patient attempted to detox athome by taking multupe Gabapentin pills and then presented to thespital. COWS was 4 and CIWA was 1 [...] Provider, in 1 week, Inpatient rehab at [facility] Care Provider:NONENursing Appointments ScheduledOther Follow up with:PT IS TO HAVE INPT REHAB AT [facility] 01/22/21KRISITN COUNCELOR TO CALL [facility] TO [...] DO on 01/18/21Last Action: No Recorded ActionDoxycycline Atsrkvh091 MG TABLET 100 MG PO BID 10 Days #20 TAB, Ref 0Prescribed by Kena Chowdhury, on 01/18/21Last Action: No Recorded DlwnplKwdrcvccfc526 MG TABLET 600 MG PO TID 5 Days #15 TAB, Ref 0Prescribed by Kena Chowdhury DO on 01/18/21Last Action: No Recorded WtavwsOdsqvthbnnz31 MG TABLET 15 MG PO HS 5 Days #5 TAB, Ref 0Prescribed by Kena Chowdhury DO on 01/18/21Last Action: No Recorded ActionMulti-Vit/Mineral(Multivitamin Tablet) 1 TAB TAB 1 TAB PO DAILY 5 Days #5 TAB, Ref 0Prescribed by Kena Chowdhury DO on 01/18/21Last Action: No Recorded VtilidJitlhrrekt97 MG TABLET 15 MG PO HS 5 [...] in antecubital region. Treated with Keflex and mckeno sitionedto Doxycycline at discharge for 10 daysCode [...] rce(s) Supporting Document(s) ID Date Data Source [id number] 01/17/2021 02:41:00 PM EDT [facility] Counselor Progress NotePatient NoteCOUNS LIZA SPOKE WITH [...] SHE IS DISCHARGED.Dictated on 01/17/21 1441 by Kyra GrieriaTranscribed on 01/17/21 1441 by Wendy Grierign by Nuzhat Grier on 01/17/21 1446Sign by: Nuzhat Grier Name Value Range Interpretation Code Description Data Kassy rce(s) Supporting Document(s) ID Date Data Source [id number] 01/17/2021 11:27:00 AM EDT [facility] Counselor Progress NotePatient NoteDR. Katherine ELVIS IN TO TALK TO COUNSELOR ABOUT PATIENT AND HER BEING DISCHARGEDAND HER AFTER PLANS. COUNSELOR CALLED [facility] AND TALKED TOA FORGING ROLL OPERATOR ABOUT PATIENT GOING THERE ONLY TO [...] RETURNS HER CALL.Dictated on 01/17/21 1127 by Kyra GrieriaTranscribed on 01/17/21 1127 by Rob Grier by Nuzhat Grier on 01/17/21 1133Sign by: Nuzhat Grier Name Value Range Interpretation Code Description Data Kassy rce(s) Supporting Document(s) ID Date Data Source [id number] 01/17/2021 10:19:00 AM EDT [facility] Counselor Progress NotePatient NoteCOUNS LIZA WENT TO CHECK ON PATIENT THIS MORNING [...] by Kyra GrieriaTranscribed on 01/17/21 1019 by Rob Grier by Nuzhat Grier on 01/17/21 1023Sign by: Nuzhat Grier Name Value Range Interpretation Code Description Data Kassy rce(s) Supporting Document(s) ID Date Data Source [id number] 01/17/2021 06:53:00 AM EDT [facility] Provider Short NotePatient NoteCalled by RN that patient has left AC area swelling. Patient was seen.She has small area of cellulitis in the left AC area. Will treat withp.o. cephalexin.Dictated on 01/17/21652 by Arcelia Tate M.D.Transcribed on 01/17/21652 by Arcelia TateSijin by Arcelia Tate M.D. on 01/19/212034Sign by: Arcelia Tate M.D. Name Value Range Interpretation Code Description Data Kassy rce(s) Supporting Document(s) ID Date Data Source [id number] 01/16/2021 03:24:00 PM EDT [facility] Counselor Progress NotePatient NoteCHUYITA DE JESUS WENT [...] rce(s) Supporting Document(s) ID Date Data Source [id number] 01/16/2021 02:08:00 PM EDT [facility] Counselor Progress NotePatient NoteCHUYITA DE JESUS WENT BACK LATER ON IN [...] rce(s) Supporting Document(s) ID Date Data Source [id number] 01/16/2021 02:04:00 PM EDT [facility] Counselor Progress NotePatient NoteCHUYITA DE JESUS WENT [...] Cherrie,TriciaTranscribed on 01/16/21 1404 by Cherrie,TriciaSign by Nuzhat Grier on 01/16/21 1408Sign by: Nuzhat Grier Name Value Range Interpretation Code Description Data Kassy rce(s) Supporting Document(s) ID Date Data Source [id number] 01/15/2021 04:16:00 PM EDT [facility] Counselor Progress NotePatient NoteCOUNS LIZA BLAS, [...] rce(s) Supporting Document(s) ID Date Data Source [id number] 01/15/2021 01:59:00 PM EDT [facility] Counselor Progress NotePatient NoteBETHANIE HUGO [facility], CONF[facility] A 4 [facility] LIST [facility].Dictated on 01/15/21 1359 by Sydnie BlasTranscribed on 01/15/21 1359 by Zach Blas by Sydnie Blas on 01/15/21 1400Sign by: Sydnie Blas Name Value Range Interpretation Code Description Data Kassy rce(s) Supporting Document(s) ID Date Data Source [id number] 01/15/2021 01:36:00 PM EDT [facility] Counselor Progress NotePatient NoteCONFI RMED BED AT [facility] 01/22/21 - ADMISSION TIME PENDING.Dictated on 01/15/21 1336 by Sydnie BlasTranscribed on 01/15/21 1336 by Sydnie BlasSign by Sydnie Blas on 01/15/21 1337Sign by: Sydnie Blas Name Value Range Interpretation Code Description Data Kassy rce(s) Supporting Document(s) ID Date Data Source [id number] 01/14/2021 03:22:00 PM EDT [facility] Counselor Progress NotePatient NoteCOTASHA DE JESUS [...] 1522 by Cherrie,TriciaTranscribed on 01/14/21 1522 by CherrieTriciaSign by CherrieNuzhat on 01/14/21 1525Sign by: Nuzhat Grier Name Value Range Interpretation Code Description Data Kassy rce(s) Supporting Document(s) ID Date Data Source [id number] 01/14/2021 03:00:00 PM EDT [facility] Counselor Progress NotePatient NoteCOTASHA DE JESUS WENT TO SEE IF PATIENT WAS UP TO DO EVALUATION AND SHE WASSLEEPING.Dictated on 01/14/21 1500 by Cherrie,TriciaTranscribed on 01/14/21 1500 by Cherrie,TriciaSign by Cherrie,Nuzhat on 01/14/21 1501Sign by: Nuzhat Grier Name Value Range Interpretation Code Description Data Kassy rce(s) Supporting Document(s) ID Date Data Source [id number] 01/14/2021 01:44:00 PM EDT [facility] Counselor Progress NotePatient NoteCOTASHA DE JESUS WENT INTO PATIENTS ROOM AT 12:30 TO DO THE EVALUATION, THEPATIENT WAS SLEEPING SO COUNSELOR HAD LEFT THE PATIENT TO SLEEP.COUNSELOR CAME BACK TO HER OFFICE AND REPORTED PATIENT STATUS TO ALFREDA.NURSING FORGING ROLL OPERATOR, SABINE PECK, WOKE THE PATIENT AND [...] rce(s) Supporting Document(s) ID Date Data Source [id number] 01/14/2021 09:26:00 AM EDT [facility]. Counselor Progress NotePatient NoteCOUNS LIZA ALONG WITH AUTHORIZATION REP WENT INTO PATIENTS ROOM AND ASKED HOW SHE WASDOING. PATIENT RESPONDED SHE WAS DOING OK. COUNSELOR INFORMED PATIENTTHAT SHE WAS HERE IF SHE NEEDED HER TO TALK OR ANYTHING.Dictated on 01/14/21 0926 by Cherrie,TriciaTranscribed on 01/14/21 0926 by Cherrie,TriciaSign by Cherrie,Nuzhat on 01/14/21 0933Sign by: Cherrie,Nuzhat Name Value Range Interpretation Code Description Data Kassy rce(s) Supporting Document(s) ID Date Data Source [id number] 01/13/2021 04:10:00 PM EDT [facility] Name Value Range Interpretation Code Description Data Kassy rce(s) Supporting Document(s) SARS-CoV-2 (COVID-19) RNA [Presence] in Respiratory specimen by IRIS with probe detection Negative; No COVID-2 RNA detected by PCR. [facility] This lab was ordered by [facility] and reported by . ID Date Data Source [id number] 12/08/2020 03:19:00 PM EDT [place] ([facility]) Name Value Range Interpretation Code Description Data Kassy rce(s) Supporting Document(s) influenza A amplification negative negative Influenza a Amplification [facility] ([facility]) influenza B amplification negative negative Influenza B Amplification [facility] ([facility]) RSV amplification negative negative RSV Amplification [facility] ([facility]) sars covid-19 amplification negative negative Sars Cov id-19 Amplification [facility] ([facility]) ID Date Data Source [id number] 12/08/2020 03:19:00 PM EDT [facility] Name Value Range Interpretation Code Description Data Kassy rce(s) Supporting Document(s) SARS coronavirus 2 RNA [Presence] in Res piratory specimen by IRIS with probe detection NEGATIVE [facility] This lab was ordered by [facility] a nd reported by [facility]. ID Date Data Source [id number] 12/08/2020 09:19:00 AM EDT [facility]) Name Value Range Interpretation Code Description Data Kassy rce(s) Supporting Document(s) thyroid stimulating hormone 1.050 uIU/mL 0.358-3.740 Thyroid Stimulating Hormone [facility]) ID Date Data Source [id number] 12/08/2020 09:19:00 AM EDT [place] ([facility]) Name Value Range Interpretation Code Description Data Kassy rce(s) Supporting Document(s) acetaminophen level < 2.0 10.0-30.0 Below low normal Acetaminop hen Level [facility]) ID Date Data Source [id number] 12/08/2020 09:19:00 AM EDT [facility]) Name Value Range Interpretation Code Description Data Kassy rce(s) Supporting Document(s) salicylate level 2.7 mg/dL 5.0-30.0 Below low normal Salicylate [facility] ID Date Data Source [id number] 12/08/2020 09:19:00 AM EDT [place] ([facility]) Name Value Range Interpretation Code Description Data Kassy rce(s) Supporting Document(s) ethyl alcohol (ethanol) < 0.003 0.000-0.010 Ethyl Alcoh ol (Ethanol) [facility] ID Date Data Source [id number] 12/08/2020 09:19:00 AM EDT [facility] ([facility]) Name Value Range Interpretation Code Description Data Kassy rce(s) Supporting Document(s) glucose, fasting 93 mg/dL 70-100 Glucose, Fasting AT [facility]) blood urea nitrogen 10 mg/dL 7-18 Blood Urea Nitro gen [place] ([facility]) creatinine for GFR 0.61 mg/dL 0.55-1.30 Creatinine for GF R [place] ([facility]) glomerular filtration rate > 60.0 >60 Glomerula r Filtration Rate [facility] ([facility]) sodium level 140 mEq/L 136-145 Sodium Level [facility] ([facility]) chloride level 111 mEq/L 98-107 Above high normal Chloride Level [facility] ([facility]) potassium serum 4.1 mEq/L 3.5-5.1 Potassium Serum ATH NA [facility]) anion gap 7 mEq/L 8-16 Below low normal Anion Gap [place] ( [facility]) calcium level 9.9 mg/dL 8.5-10.1 Calcium Level [place] ( [facility]) carbon dioxide level 22 mEq/L 21-32 Carbon Dioxide Level [place] ([facility]) ID Date Data Source [id number] 12/08/2020 09:19:00 AM EDT [facility]) Name Value Range Interpretation Code Description Data Kassy rce(s) Supporting Document(s) AST/SGOT 28 U/L 7-37 AST/SGOT [facility] ([facility]) alkaline phosphatase 90 U/L 45-117 Alkaline Phosph atase [place] ([facility]) ALT/SGPT 26 U/L 12-78 ALT/SGPT [facility] ([facility]) bilirubin,total 0.3 mg/dL 0.2-1.0 Bilirubin,total ATHE NA ([facility]) bilirubin,direct < 0.1 0.0-0.2 Bilirubin,direct AT [facility] ([facility]) albumin 3.9 gm/dL 3.2-5.2 Albumin [facility] ([facility]) total protein 8.4 gm/dL 6.4-8.2 Above high normal Total Protein A [facility] ([facility]) albumin/globulin ratio 1.2-2.2 Below low normal Albumin /globulin Ratio [facility] ([facility]) ID Date Data Source [id number] 12/08/2020 09:19:00 AM EDT [place] ([facility]) Name Value Range Interpretation Code Description Data Kassy rce(s) Supporting Document(s) white blood count 9.1 10 4.0-10.0 White Blood Count [facility] ([facility]) red blood count 4.31 10 4.00-5.40 Red Blood Count [facility] ([facility]) hemoglobin 12.8 g/dL 12.0-15.5 Hemoglobin [facility] ([facility]) hematocrit 39.2 % 36.0-47.0 Hematocrit [facility] ([facility]) mean corpuscular volume 91.0 fL 80.0-96.0 Mean Corpusc ular Volume [facility] ([facility]) mean corpuscular hemoglobin 29.7 pg 27.0-33.0 Mean Cor puscular Hemoglobin [facility] ([facility]) mean corpuscular HGB conc 32.7 g/dL 32.0-36.5 Mean Corpu scular HGB Conc [facility] ([facility]) platelet count, automated 276 10 150-450 Platelet C ount, Automated [facility] ([facility]) red cell distribution width 13.7 % 11.5-14.5 Red Cell Distribution Width [facility] ([facility]) nucleated red blood cell % 0.0 % 0-0 Nucleated Red Blood Cell % [facility] ([facility]) ID Date Data Source [id number] 12/08/2020 08:11:00 AM EDT [facility] ([facility]) Name Value Range Interpretation Code Description Data Kassy rce(s) Supporting Document(s) amphetamines level urine positive negative Above high andrea l Amphetamines Level Urine [facility] ([facility]) barbiturates urine negative negative Barbiturates Urin e [facility] ([facility]) benzodiazepines urine negative negative Benzodiazepine s Urine [facility] ([facility]) cannabinoids urine positive negative Above high normal Cannabinoi ds Urine [facility] ([facility]) cocaine metabolite urine negative negative Cocaine Met abolite Urine [facility] ([facility]) opiates urine negative negative Opiates Urine [facility] ( [facility]) methadone urine negative negative Methadone Urine [facility] ([facility]) phencyclidine urine negative negative Phencyclidine Ur ine [facility] ([facility]) ID Date Data Source [id number] 12/07/2020 09:14:00 AM EDT [place] ([facility]) Name Value Range Interpretation Code Description Data Kassy rce(s) Supporting Document(s) istat troponin 0.01 NG/mL 0.00-0.08 Istat Troponin [facility] ([facility]) ID Date Data Source [id number] 12/07/2020 09:12:00 AM EDT [place] ([facility]) Name Value Range Interpretation Code Description Data Kassy rce(s) Supporting Document(s) istat HCT 38.0 % 38.0-51.0 Istat HCT [facility] ([facility]) istat sodium 138 mEq/L 136-145 Istat Sodium [facility] ([facility]) istat glucose 111 mg/dL 70-105 Above high normal Istat Glucose A [facility] ([facility]) istat Ca++ 4.7 mg/dL 4.5-5.3 Istat Ca++ [facility] ([facility]) istat potassium 3.9 mEq/L 3.5-5.1 Istat Potassium ATHE NA ([facility]) istat CO2 23.0 mm/L 23.0-27.0 Istat CO2 [facility] ([facility]) istat chloride 105 mEq/L 98-109 Istat Chloride [facility] ([facility]) istat BUN 9 mg/dL 8-26 Istat BUN [facility] ([facility]) istat creatinine 0.6 mg/dL 0.6-1.3 Istat Creatinine AT [facility] ([facility]) ID Date Data Source [id number] 12/01/2020 03:02:00 AM EDT [facility] Name Value Range Interpretation Code Description Data Kassy rce(s) Supporting Document(s) SARS coronavirus 2 RNA [Presence] in Res piratory specimen by IRIS with probe detection NEGATIVE [facility] This lab was ordered by [facility] a nd reported by [facility]. ID Date Data Source [id number] 09/15/2020 03:35:50 PM EST [facility] ([facility]) Name Value Range Interpretation Code Description Data Kassy rce(s) Supporting Document(s) Color: yellow; Glucose: nega tive; Blood: small; pH: 6.0; Protein: small; Nitrite: positive; Leukocytes: moderate Abnormal (appl ies to non-numeric results) Urine Dipstick [facility] ([facility]) ID Date Data Source [id number] 09/15/2020 03:35:12 PM EST [facility] ([facility]) Name Value Range Interpretation Code Description Data Kassy rce(s) Supporting Document(s) NegativeLot: [id number]: 03/31/2022 High Sensitivity Urine Test [facility] ([facility]) ID Date Data Source [id number] 06/02/2020 02:08:00 PM EST [place] ([facility]) Name Value Range Interpretation Code Description Data Kassy rce(s) Supporting Document(s) alkaline phosphatase 75 U/L 45-117 Alkaline Phosph atase [facility] ([facility]) ALT/SGPT 74 U/L 12-78 ALT/SGPT [facility] ([facility]) AST/SGOT 58 U/L 7-37 Above high normal AST/SGOT [facility] ([facility]) total protein 7.7 gm/dL 6.4-8.2 Total Protein [facility] ( [facility]) bilirubin,total 0.4 mg/dL 0.2-1.0 Bilirubin,total ATHE NA ([facility]) bilirubin,direct 0.1 mg/dL 0.0-0.2 Bilirubin,direct AT [facility] ([facility]) albumin/globulin ratio 1.2-2.2 Below low normal Albumin /globulin Ratio [facility] ([facility]) albumin 3.7 gm/dL 3.2-5.2 Albumin [facility] ([facility]) ID Date Data Source [id number] 06/02/2020 02:08:00 PM EST [facility] ([facility]) Name Value Range Interpretation Code Description Data Kassy rce(s) Supporting Document(s) amphetamines level urine positive negative Above high andrea l Amphetamines Level Urine [facility] ([facility]) benzodiazepines urine negative negative Benzodiazepine s Urine [facility] ([facility]) barbiturates urine negative negative Barbiturates Urin e [facility] ([facility]) cannabinoids urine positive negative Above high normal Cannabinoi ds Urine [facility] ([facility]) cocaine metabolite urine negative negative Cocaine Met abolite Urine [facility] ([facility]) methadone urine positive negative Above high normal Methadone Uri ne [facility] ([facility]) phencyclidine urine negative negative Phencyclidine Ur ine [facility] ([facility]) opiates urine positive negative Above high normal Opiates Urine A [facility] ([facility]) ID Date Data Source [id number] 06/02/2020 02:08:00 PM EST [facility] ([facility]) Name Value Range Interpretation Code Description Data Kassy rce(s) Supporting Document(s) white blood count 5.8 10 4.0-10.0 White Blood Count [facility] ([facility]) red blood count 3.95 10 4.00-5.40 Below low normal Red Blood Coun t [facility] ([facility]) hemoglobin 12.2 g/dL 12.0-15.5 Hemoglobin [facility] ([facility]) mean corpuscular volume 94.2 fL 80.0-96.0 Mean Corpusc ular Volume [facility] ([facility]) hematocrit 37.2 % 36.0-47.0 Hematocrit [place] ([facility]) mean corpuscular hemoglobin 30.9 pg 27.0-33.0 Mean Cor puscular Hemoglobin [place] ([facility]) mean corpuscular HGB conc 32.8 g/dL 32.0-36.5 Mean Corpu scular HGB Conc [facility] ([facility]) red cell distribution width 12.8 % 11.5-14.5 Red Cell Distribution Width [facility] ([facility]) nucleated red blood cell % 0.0 % 0-0 Nucleated Red Blood Cell % [facility] ([facility]) platelet count, automated 195 10 150-450 Platelet C ount, Automated [facility] ([facility]) ID Date Data Source [id number] 06/02/2020 02:08:00 PM EST [place] ([facility]) Name Value Range Interpretation Code Description Data Kassy rce(s) Supporting Document(s) HCG, serum qualitative negative negative HCG, Serum Qu alitative [facility] ([facility]) ID Date Data Source [id number] 06/02/2020 02:08:00 PM EST [facility] ([facility]) Name Value Range Interpretation Code Description Data Kassy rce(s) Supporting Document(s) thyroid stimulating hormone 1.690 uIU/mL 0.358-3.740 Thyroid Stimulating Hormone [place] ([facility]) ID Date Data Source [id number] 06/02/2020 02:08:00 PM EST [facility] ([facility]) Name Value Range Interpretation Code Description Data Kassy rce(s) Supporting Document(s) acetaminophen level < 2.0 10.0-30.0 Below low normal Acetaminop hen Level [facility] ([facility]) ID Date Data Source [id number] 06/02/2020 02:08:00 PM EST [facility] ([facility]) Name Value Range Interpretation Code Description Data Kassy rce(s) Supporting Document(s) salicylate level < 1.7 5.0-30.0 Below low normal Salicylate Le jose [facility] ([facility]) ID Date Data Source [id number] 06/02/2020 02:08:00 PM EST [facility] ([facility]) Name Value Range Interpretation Code Description Data Kassy rce(s) Supporting Document(s) ethyl alcohol (ethanol) < 0.003 0.000-0.010 Ethyl Alcoh ol (Ethanol) [facility] ([facility]) ID Date Data Source [id number] 06/02/2020 02:08:00 PM EST [facility] ([facility]) Name Value Range Interpretation Code Description Data Kassy rce(s) Supporting Document(s) creatinine for GFR 0.71 mg/dL 0.55-1.30 Creatinine for GF R [place] ([facility]) blood urea nitrogen 7 mg/dL 7-18 Blood Urea Nitro gen [facility] ([facility]) glucose, fasting 82 mg/dL 70-100 Glucose, Fasting AT [facility] ([facility]) glomerular filtration rate > 60.0 >60 Glomerula r Filtration Rate [facility] ([facility]) sodium level 139 mEq/L 136-145 Sodium Level [facility] ([facility]) potassium serum 3.6 mEq/L 3.5-5.1 Potassium Serum ATHE NA ([facility]) anion gap 6 mEq/L 8-16 Below low normal Anion Gap [facility] ( [facility]) carbon dioxide level 24 mEq/L 21-32 Carbon Dioxide Level [facility] ([facility]) chloride level 109 mEq/L 98-107 Above high normal Chloride Level [facility] ([facility]) calcium level 8.8 mg/dL 8.5-10.1 Calcium Level [facility] ( [facility]) ID Date Data Source [id number] 06/01/2020 01:01:00 PM EST [facility] ([facility]) Name Value Range Interpretation Code Description Data Kassy rce(s) Supporting Document(s) amphetamines level urine positive negative Above high andrea l Amphetamines Level Urine [facility] ([facility]) cocaine metabolite urine positive negative Above high andrea l Cocaine Metabolite Urine [facility] ([facility]) cannabinoids urine positive negative Above high normal Cannabinoi ds Urine [facility] ([facility]) benzodiazepines urine negative negative Benzodiazepine s Urine [facility] ([facility]) barbiturates urine negative negative Barbiturates Urin e [facility] ([facility]) phencyclidine urine negative negative Phencyclidine Ur ine [facility] ([facility]) methadone urine positive negative Above high normal Methadone Uri ne [facility] ([facility]) opiates urine positive negative Above high normal Opiates Urine A [facility] ([facility]) ID Date Data Source [id number] 06/01/2020 01:01:00 PM EST [facility] ([facility]) Name Value Range Interpretation Code Description Data Kassy rce(s) Supporting Document(s) HCG, serum qualitative negative negative HCG, Serum Qu alitative [facility] ([facility]) ID Date Data Source [id number] 06/01/2020 01:01:00 PM EST [facility] ([facility]) Name Value Range Interpretation Code Description Data Kassy rce(s) Supporting Document(s) thyroid stimulating hormone 4.060 uIU/mL 0.358-3.740 Above high no rmal Thyroid Stimulating Hormone [facility] ([facility]) ID Date Data Source [id number] 06/01/2020 01:01:00 PM EST [facility] ([facility]) Name Value Range Interpretation Code Description Data Kassy rce(s) Supporting Document(s) acetaminophen level < 2.0 10.0-30.0 Below low normal Acetaminop hen Level [facility] ([facility]) ID Date Data Source [id number] 06/01/2020 01:01:00 PM EST [facility] ([facility]) Name Value Range Interpretation Code Description Data Kassy rce(s) Supporting Document(s) salicylate level < 1.7 5.0-30.0 Below low normal Salicylate Le jose [facility] ([facility]) ID Date Data Source [id number] 06/01/2020 01:01:00 PM EST [facility] ([facility]) Name Value Range Interpretation Code Description Data Kassy rce(s) Supporting Document(s) ethyl alcohol (ethanol) < 0.003 0.000-0.010 Ethyl Alcoh ol (Ethanol) [facility] ([facility]) ID Date Data Source [id number] 06/01/2020 01:01:00 PM EST [facility] ([facility]) Name Value Range Interpretation Code Description Data Kassy rce(s) Supporting Document(s) glucose, fasting 129 mg/dL 70-100 Above high normal Glucose, Fas ting [facility] ([facility]) blood urea nitrogen 12 mg/dL 7-18 Blood Urea Nitro gen [facility] ([facility]) creatinine for GFR 0.83 mg/dL 0.55-1.30 Creatinine for GF R [facility] ([facility]) sodium level 136 mEq/L 136-145 Sodium Level [facility] ([facility]) glomerular filtration rate > 60.0 >60 Glomerula r Filtration Rate [facility] ([facility]) potassium serum 3.6 mEq/L 3.5-5.1 Potassium Serum ATHE NA ([facility]) chloride level 103 mEq/L 98-107 Chloride Level [facility] ([facility]) carbon dioxide level 23 mEq/L 21-32 Carbon Dioxide Level [facility] ([facility]) anion gap 10 mEq/L 8-16 Anion Gap [facility] ([facility]) calcium level 8.8 mg/dL 8.5-10.1 Calcium Level [facility] ( [facility]) ID Date Data Source [id number] 06/01/2020 01:01:00 PM EST [facility] ([facility]) Name Value Range Interpretation Code Description Data Kassy rce(s) Supporting Document(s) AST/SGOT 61 U/L 7-37 Above high normal AST/SGOT [facility] ([facility]) ALT/SGPT 89 U/L 12-78 Above high normal ALT/SGPT [facility] ([facility]) alkaline phosphatase 80 U/L 45-117 Alkaline Phosph atase [facility] ([facility]) bilirubin,total 0.3 mg/dL 0.2-1.0 Bilirubin,total [facility] ([facility]) total protein 8.4 gm/dL 6.4-8.2 Above high normal Total Protein A [facility] ([facility]) bilirubin,direct 0.1 mg/dL 0.0-0.2 Bilirubin,direct AT [facility] ([facility]) albumin/globulin ratio 1.2-2.2 Below low normal Albumin /globulin Ratio [facility] ([facility]) albumin 4.2 gm/dL 3.2-5.2 Albumin [facility] ([facility]) ID Date Data Source [id number] 06/01/2020 01:01:00 PM EST [facility] ([facility]) Name Value Range Interpretation Code Description Data Kassy rce(s) Supporting Document(s) white blood count 5.6 10 4.0-10.0 White Blood Count [facility] ([facility]) red blood count 4.07 10 4.00-5.40 Red Blood Count [facility] ([facility]) hemoglobin 12.4 g/dL 12.0-15.5 Hemoglobin [facility] ([facility]) hematocrit 37.8 % 36.0-47.0 Hematocrit [facility] ([facility]) mean corpuscular hemoglobin 30.5 pg 27.0-33.0 Mean Cor puscular Hemoglobin [facility] ([facility]) mean corpuscular HGB conc 32.8 g/dL 32.0-36.5 Mean Corpu scular HGB Conc [facility] ([facility]) mean corpuscular volume 92.9 fL 80.0-96.0 Mean Corpusc ular Volume [facility] ([facility]) neutrophils % 39.6 % 36.0-66.0 Neutrophils % [facility] ( [facility]) red cell distribution width 12.8 % 11.5-14.5 Red Cell Distribution Width [facility] ([facility]) platelet count, automated 205 10 150-450 Platelet C ount, Automated [facility] ([facility]) mono % 8.0 % 0.0-5.0 Above high normal [place] % [facility] ([facility]) lymph % 48.6 % 24.0-44.0 Above high normal Lymph % [facility] ([facility]) baso % 0.9 % 0.0-1.0 Baso % [facility] ([facility]) eos % 2.7 % 0.0-3.0 Eos % [facility] ([facility]) immature granulocyte % 0.2 % 0-3.0 Immature Gran ulocyte % [facility] ([facility]) nucleated red blood cell % 0.0 % 0-0 Nucleated Red Blood Cell % [facility] ([facility]) neutrophils # 2.2 10 1.5-8.5 Neutrophils # [facility] ( [facility]) lymph # 2.7 10 1.5-5.0 Lymph # [facility] ([facility]) mono # 0.5 10 0.0-0.8 [place] # [facility] ([facility]) eos # 0.2 10 0.0-0.5 Eos # [facility] ([facility]) baso # 0.1 10 0.0-0.2 Baso # [facility] ([facility]) Procedure Social History Code Duration Value Status Description Data Source(s ) Alcohol intake 06/19/2021 12:00:00 AM EST Ex-drinker (finding) comp leted Ex- drinker (finding) [facility] Smoking 06/19/2021 12:00:00 AM EST Smokes tobacco daily comple marques Smokes tobacco daily [facility] Smoking 04/14/2021 12:00:00 AM EDT Smoker, current [...] blood pressure 73 mm[Hg] 73 mm[Hg] [facility] ([facility]) Systolic blood pressure 104 mm[Hg] 104 mm[Hg] A [facility] ([facility]) Body weight 1920 [oz_av] 1920 [oz_av] [facility] ([facility]) Body height 154.94 cm 154.94 cm [facility] [...] index (BMI) [Ratio] 24.56 kg/m2 24.56 kg/m2 [facility] ([facility]) ID Date Data Source [id number] 07/06/2021 05:53:13 AM [facility] Name Value Range Interpretation Code Description Data Source(s) TRANSFER FROM [facility] ID Date Data Source [id number] 02/23/2021 10:02:00 AM EDT [facility] Name Value Range Interpretation Code Description Data Source(s) Weight (Calculated Kilograms) 55.34 55.34 [facility] Height (Calculated Centimeters) 154.94 154. 94 [facility] Body Mass Index (BMI) 23.0 23.0 [facility] ID Date Data Source [id number] 03/09/2021 03:19:00 PM EDT [facility] Name Value Range Interpretation Code Description Data Source(s) Weight Measurement Method 1 1 [facility] Weight (Calculated Kilograms) 55.34 55.34 [facility] Weight 2144 2144 [facility] Temperature Source 7 7 [facility] Temperature 96.4 96.4 [facility] Respiratory Effort 1 1 [facility] Respiratory Rate 16 16 [facility] Pulse Assessment Method 4 4 [facility] Pulse Rate 117 117 [facility] Height (Calculated Centimeters) 154.94 154. 94 [facility] Height 61 61 [facility] Blood Pressure 110/70 110/70 [facility] Body Mass Index (BMI) 23.0 23.0 [facility] Weight Measurement Method 1 1 [facility] Weight (Calculated Kilograms) 55.34 55.34 [facility] Weight 2144 2144 [facility] Temperature Source 7 7 [facility] Temperature 96.4 96.4 [facility] Respiratory Effort 1 1 [facility] Respiratory Rate 16 16 [facility] Pulse Assessment Method 4 4 [facility] Pulse Rate 117 117 [facility] Height (Calculated Centimeters) 154.94 154. 94 [facility] Height 61 61 [facility] Blood Pressure 110/70 110/70 [facility] Body Mass Index (BMI) 23.0 23.0 [place] [facility] Weight Measurement Method 1 1 [facility] Weight (Calculated Kilograms) 55.34 55.34 [facility] Weight 2144 2144 [facility] Temperature Source 7 7 [facility] Temperature 96.4 96.4 [facility] Respiratory Effort 1 1 [facility] Respiratory Rate 16 16 [facility] Pulse Assessment Method 4 4 [facility] Pulse Rate 117 117 [facility] Height (Calculated Centimeters) 154.94 154. 94 [facility] Height 61 61 [facility] Blood Pressure 110/70 110/70 [facility] Body Mass Index (BMI) 23.0 23.0 [facility] Weight Measurement Method 1 1 [facility] Weight (Calculated Kilograms) 55.34 55.34 [facility] Weight 1983 1983 [facility] Temperature Source 7 7 [facility] Temperature 97.3 97.3 [facility] Respiratory Effort 1 1 [facility] Respiratory Rate 14 14 [facility] Pulse Assessment Method 4 4 [facility] Pulse Rate 69 69 [facility] Height (Calculated Centimeters) 154.94 154. 94 [facility] Height 61 61 [facility] Blood Pressure 112/79 112/79 [facility] Body Mass Index (BMI) 23.0 23.0 [facility] Weight Measurement Method 1 1 [facility] Weight (Calculated Kilograms) 55.34 55.34 [facility] Weight 1983 1983 [facility] Temperature Source 7 7 [facility] Temperature 97.1 97.1 [facility] Respiratory Effort 1 1 [facility] Respiratory Rate 16 16 [facility] Pulse Assessment Method 4 4 [facility] Pulse Rate 74 74 [facility] Height (Calculated Centimeters) 154.94 154. 94 [facility] Height 61 61 [facility] Blood Pressure 110/74 110/74 [facility] Body Mass Index (BMI) 23.0 23.0 [facility] Weight (Calculated Kilograms) 56.25 56.25 [facility] Height (Calculated Centimeters) 154.94 154. 94 [facility] Body Mass Index (BMI) 23.4 23.4 [facility] ID Date Data Source [id number] 05/19/2020 05:30:00 AM EDT [facility] Name Value Range Interpretation Code Description Data Source(s) Weight Measurement Method 1 1 [facility] Weight (Calculated Kilograms) 56.25 56.25 [facility] Weight 2063 2063 [facility] Temperature Source 7 7 [facility] Temperature 97.5 97.5 [facility] Respiratory Effort 1 1 [facility] Respiratory Rate 15 15 [facility] Pulse Assessment Method 4 4 [facility] Pulse Rate 83 83 [facility] Height (Calculated Centimeters) 154.94 154. 94 [facility] Height 61 61 [facility] Blood Pressure 109/75 109/75 [facility] Body Mass Index (BMI) 23.4 23.4 [facility] Weight Measurement Method 1 1 [facility] Weight (Calculated Kilograms) 56.25 56.25 [facility] Weight 2063 2063 [facility] Temperature Source 7 7 [facility] Temperature 97.5 97.5 [facility] Respiratory Effort 1 1 [facility] Respiratory Rate 15 15 [facility] Pulse Assessment Method 4 4 [facility] Pulse Rate 83 83 [facility] Height (Calculated Centimeters) 154.94 154. 94 [facility] Height 61 61 [facility] Blood Pressure 109/75 109/75 [facility] Body Mass Index (BMI) 23.4 23.4 [facility] Weight Measurement Method 1 1 [facility] Weight (Calculated Kilograms) 56.25 56.25 [facility] Weight 2063 2063 [facility] Temperature Source 7 7 [facility] Temperature 97.5 97.5 [facility] Respiratory Effort 1 1 [facility] Respiratory Rate 15 15 [facility] Pulse Assessment Method 4 4 [facility] Pulse Rate 83 83 [facility] Height (Calculated Centimeters) 154.94 154. 94 [facility] Height 61 61 [facility] Blood Pressure 109/75 109/75 [facility] Body Mass Index (BMI) 23.4 23.4 [facility] Weight Measurement Method 1 1 [facility] Weight (Calculated Kilograms) 56.25 56.25 [facility] Weight 2063 2063 [facility] Temperature Source 7 7 [facility] Temperature 97.5 97.5 [facility] Respiratory Effort 1 1 [facility] Respiratory Rate 15 15 [facility] Pulse Assessment Method 4 4 [facility] Pulse Rate 83 83 [facility] Height (Calculated Centimeters) 154.94 154. 94 [facility] Height 61 61 [facility] Blood Pressure 109/75 109/75 [facility] Body Mass Index (BMI) 23.4 23.4 [facility] Weight Measurement Method 1 1 [facility] Weight (Calculated Kilograms) 56.25 56.25 [facility] Weight 1983 1983 [facility] Temperature Source 7 7 [facility] Temperature 96.9 96.9 [facility] Respiratory Effort 1 1 [facility] Respiratory Rate 15 15 [facility] Pulse Assessment Method 4 4 [facility] Pulse Rate 90 90 [facility] Height (Calculated Centimeters) 154.94 154. 94 [facility] Height 61 61 [facility] Blood Pressure 104/67 104/67 [facility] Body Mass Index (BMI) 23.4 23.4 [facility] Weight Measurement Method 1 1 [facility] Weight (Calculated Kilograms) 56.25 56.25 [facility] Weight 1983 1983 [facility] Temperature Source 7 7 [facility] Temperature 97.8 97.8 [facility] Respiratory Effort 1 1 [facility] Respiratory Rate 17 17 [facility] Pulse Assessment Method 4 4 [facility] Pulse Rate 93 93 [facility] Height (Calculated Centimeters) 154.94 154. 94 [facility] Height 61 61 [facility] Blood Pressure 110/87 110/87 [facility] Body Mass Index (BMI) 23.4 23.4 [facility] Weight (Calculated Kilograms) 72.12 72.12 [facility] Height (Calculated Centimeters) 154.94 154. 94 [facility] Body Mass Index (BMI) 30.0 30.0 [facility] Patient Treatment Plan of Care Planned Activity Planned Date Details Description Data Source (s) Fluoxetine 10 MG Oral Capsule 06/25/2021 12:00:00 AM [facility] Trazodone Hydrochloride 50 MG Oral Tablet 06/24/2021 12:00:00 AM [facility] buspirone hydrochloride 10 MG Oral Tablet 06/24/2021 12:00:00 AM [facility] benztropine mesylate 1 MG Oral Tablet 06/24/2021 12:00:00 AM [facility] topiramate 100 MG Oral Tablet 06/24/2021 12:00:00 AM [facility] sennosides, HALFWAY 8.6 MG Oral Tablet 06/19/2021 02:49:34 PM [facility] Bisacodyl 10 MG Rectal Suppository 06/19/2021 02:49:34 PM [facility] Acetaminophen 325 MG Oral Tablet 06/19/2021 01:51:28 AM [facility] Magnesium Hydroxide 80 MG/ML Oral Suspension 06/19/2021 01:49:45 AM [facility] Aluminum Hydroxide 40 MG/ML / Magnesium Hydroxide 40 MG/ML / Simethicone 4 MG/ML Oral Suspension 06/19/2021 01:49:45 AM [facility] Ondansetron 4 MG Disintegrating Oral Tablet 06/19/2021 01:49:45 AM [facility] Haloperidol Decanoate 100 MG/ML Intramuscular Solution (HALDOL DECANOATE) 06/16/2021 12:00:00 AM [facility] Nicotine 4 MG Chewing Gum 06/11/2021 12:00:00 AM [facility] Mupirocin 0.02 MG/MG Topical Ointment 06/10/2021 12:00:00 AM [facility] Haloperidol 5 MG Oral Tablet 06/10/2021 12:00:00 AM [facility] Fluoxetine 20 MG Oral Capsule 06/10/2021 12:00:00 AM [facility] buspirone hydrochloride 15 MG Oral Tablet 06/10/2021 12:00:00 AM [facility] Buprenorphine 8 MG / Naloxone 2 MG Oral Strip [Suboxon e] 05/27/2021 12:00:00 AM [facility] aripiprazole 400 MG Injection [Abilify] 05/27/2021 12:00:00 AM [facility] Mirtazapine 15 MG Oral Tablet 05/25/2021 12:00:00 AM [facility] aripiprazole 10 MG Oral Tablet 05/25/2021 12:00:00 AM [facility] olanzapine 15 MG Oral Tablet 05/17/2021 12:00:00 AM [facility] Narcan 4 MG/0.1ML Nasal Liquid 05/13/2021 12:00:00 AM [facility] gabapentin 600 MG Oral Tablet 05/13/2021 12:00:00 AM [facility] Cephalexin 500 MG Oral Capsule 05/13/2021 12:00:00 AM [facility] olanzapine 10 MG Oral Tablet 04/15/2021 12:00:00 AM [facility] Mirtazapine 30 MG Oral Tablet 04/15/2021 12:00:00 AM [facility] Risperidone 2 MG Oral Tablet 03/30/2021 12:00:00 AM [facility] Prazosin 1 MG Oral Capsule 03/30/2021 12:00:00 AM [facility] SM Fiber Powder 25 % Oral Powder 02/26/2021 12:00:00 AM [facility] atomoxetine 40 MG Oral Capsule 02/24/2021 12:00:00 AM [facility] atomoxetine 10 MG Oral Capsule 02/24/2021 12:00:00 AM [facility] Sertraline 100 MG Oral Tablet 02/24/2021 12:00:00 AM [facility] Docusate Sodium 50 MG / sennosides, HALFWAY 8.6 MG Oral Ta blet 02/24/2021 12:00:00 AM [facility] 24 HR Oxybutynin chloride 10 MG Extended Release Oral Tablet 02/24/2021 12:00:00 AM [facility] Nicotine 2 MG Chewing Gum 02/24/2021 12:00:00 AM [facility] 24 HR Nicotine 0.875 MG/HR Transdermal Patch 02/24/2021 12:00:00 AM [facility] Naproxen 500 MG Oral Tablet 02/24/2021 12:00:00 AM [facility] Tab-A-Silvestre Oral Tablet 02/24/2021 12:00:00 AM [facility] Melatonin 3 MG Oral Tablet 02/24/2021 12:00:00 AM [facility] Levothyroxine Sodium 0.05 MG Oral Tablet 02/24/2021 12:00:00 AM [facility] Cholecalciferol 2000 UNT Oral Tablet 02/24/2021 12:00:00 AM [facility] Amitriptyline Hydrochloride 25 MG Oral Tablet 02/24/2021 12:00:00 A M [facility] Sertraline 50 MG Oral Tablet 01/18/2021 12:00:00 AM [facility] Risperidone 3 MG Oral Tablet 01/18/2021 12:00:00 AM [facility] Prazosin 2 MG Oral Capsule 01/18/2021 12:00:00 AM [facility] doxycycline hyclate 100 MG Oral Tablet 01/18/2021 12:00:00 AM [facility] Sertraline 50 MG Oral Tablet [Zoloft] 01/18/2021 12:00:00 AM [facility] Risperidone 3 MG Oral Tablet [Risperdal] 01/18/2021 12:00:00 AM [facility] Prazosin 2 MG Oral Capsule [Minipress] 01/18/2021 12:00:00 AM [facility] olanzapine 15 MG Oral Tablet 01/18/2021 12:00:00 AM [facility] Multi-Vit/Mineral (Multivitamin Tablet) 1 TAB TAB 01/18/2021 12: 00:00 AM [facility] Mirtazapine 15 MG Oral Tablet 01/18/2021 12:00:00 AM [facility] gabapentin 600 MG Oral Tablet 01/18/2021 12:00:00 AM [facility] doxycycline hyclate 100 MG Oral Tablet 01/18/2021 12:00:00 AM [facility] Docusate Sodium 100 MG Oral Capsule [Colace] 01/18/2021 12:00:00 AM [facility] Buprenorphine 8 MG / Naloxone 2 MG Oral Strip [Suboxon e] 01/18/2021 12:00:00 AM [facility] olanzapine 5 MG Disintegrating Oral Tablet 12/12/2020 12:00:00 AM E DT [facility] Metronidazole 500 MG Oral Tablet 12/11/2020 12:00:00 AM [facility] Buprenorphine 12 MG / Naloxone 3 MG Oral Strip 10/09/2020 12:00:00 AM [facility] Nicotine 4 MG Oral Lozenge 09/29/2020 12:00:00 AM [facility] olanzapine 15 MG Oral Tablet 09/29/2020 12:00:00 AM [facility] Metronidazole 500 MG Oral Tablet 09/22/2020 12:00:00 AM [facility] gabapentin 400 MG Oral Capsule 09/08/2020 12:00:00 AM [facility] Haloperidol 10 MG Oral Tablet 08/30/2020 12:00:00 AM [facility] Hydroxyzine Hydrochloride 50 MG Oral Tablet 08/04/2020 12:00:00 AM [facility] olanzapine 5 MG Oral Tablet 07/24/2020 12:00:00 AM [facility] Sertraline 25 MG Oral Tablet 07/08/2020 12:00:00 AM [facility] 168 HR Ethinyl Estradiol 0.66900 MG/HR / norelgestromin 0.84383 MG/HR Transdermal Patch [Xulane] 03/03/2020 12:00:00 AM [facility] ([facility]) Benzalkonium Chloride 1.3 MG/ML Medicated Pad 11/09/2011 12:00:00 A M [facility] Sulfamethoxazole 800 MG / Trimethoprim 160 MG Oral Tab let 02/16/2011 12:00:00 AM [facility] TRAMADOL HCL PO 02/10/2011 12:00:00 AM [facility] tramadol hydrochloride 50 MG Oral Tablet 02/09/2011 12:00:00 AM [facility] Levonorgestrel 1.5 MG Oral Tablet 02/09/2011 12:00:00 AM [facility] Ibuprofen 600 MG Oral Tablet 02/09/2011 12:00:00 AM [facility] doxycycline hyclate 100 MG Oral Tablet 02/09/2011 12:00:00 AM [facility] Buprenorphine 8 MG / Naloxone 2 MG Sublingual Tablet [facility] benztropine mesylate 1 MG Oral Tablet [facility] topiramate 100 MG Oral Tablet [facility] atomoxetine 60 MG Oral Capsule [facility] Buprenorphine 2 MG / Naloxone 0.5 MG Oral Strip [facility] Docusate Sodium 100 MG Oral Capsule [facility] Trazodone Hydrochloride 50 MG Oral Tablet [facility] Haloperidol 2 MG Oral Tablet [facility] Fluoxetine 10 MG Oral Capsule [facility] buspirone hydrochloride 10 MG Oral Tablet [facility] Trazodone Hydrochloride 100 MG Oral Tablet [facility] ([facility]) topiramate 50 MG Oral Tablet [facility] ([facility]) topiramate 25 MG Oral Tablet [facility] ([facility]) Sulfamethoxazole 800 MG / Trimethoprim 160 MG Oral Tablet [facility] ([facility]) Sertraline 50 MG Oral Tablet [facility] ([facility]) Sertraline 25 MG Oral Tablet [facility] ([facility]) Sertraline 100 MG Oral Tablet [facility] ([facility]) Risperidone 3 MG Oral Tablet [facility] ([facility]) Risperidone 2 MG Oral Tablet [facility] ([facility]) Prazosin 2 MG Oral Capsule [facility] ([facility]) Prazosin 1 MG Oral Capsule [facility] ([facility]) 24 HR paliperidone 6 MG Extended Release Oral Tablet [facility] ([facility]) 24 HR paliperidone 3 MG Extended Release Oral Tablet [facility] ([facility]) 24 HR Oxybutynin chloride 5 MG Extended Release Oral Tablet [facility] ([facility]) 24 HR Oxybutynin chloride 10 MG Extended Release Oral Tablet [facility] ([facility]) olanzapine 5 MG Oral Tablet [facility] ([facility]) olanzapine 5 MG Disintegrating Oral Tablet [facility] ([facility]) benztropine mesylate 1 MG Oral Tablet [facility] ([facility]) atomoxetine 40 MG Oral Capsule [facility] ([facility]) atomoxetine 10 MG Oral Capsule [facility] ([facility]) aripiprazole 2 MG Oral Tablet [facility] ([facility]) Amitriptyline Hydrochloride 25 MG Oral Tablet [facility] ([facility] Sertraline 50 MG Oral Tablet [Zoloft] [facility]. Risperidone 3 MG Oral Tablet [Risperdal] [facility] Prazosin 2 MG Oral Capsule [Minipress] [facility] olanzapine 15 MG Oral Tablet [facility]. Mirtazapine 15 MG Oral Tablet [facility]. gabapentin 600 MG Oral Tablet [facility]. Docusate Sodium 100 MG Oral Capsule [Colace] [facility]. Buprenorphine 8 MG / Naloxone 2 MG Oral Strip [Suboxone] [facility]. topiramate 50 MG Oral Tablet [Topamax] [facility] ([facility]) olanzapine 10 MG Oral Tablet [facility] ([facility]) Naproxen 500 MG Oral Tablet [facility] ([facility]) Mirtazapine 15 MG Oral Tablet [facility] ([facility]) Metronidazole 500 MG Oral Tablet [facility] ([facility]) Loratadine 10 MG Oral Tablet [facility] ([facility]) Levothyroxine Sodium 0.05 MG Oral Tablet [facility] ([facility]) Hydroxyzine Hydrochloride 50 MG Oral Tablet [facility] ([facility]) Hydroxyzine Hydrochloride 25 MG Oral Tablet [facility] ([facility]) Haloperidol 2 MG Oral Tablet [facility] ([facility]) Haloperidol 10 MG Oral Tablet [facility] ([facility]) gabapentin 400 MG Oral Capsule [facility] ([facility]) gabapentin 300 MG Oral Capsule [facility] ([facility]) 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 MG Oral Capsule [facility] ([facility]) Fluoxetine 10 MG Oral Capsule [facility] ([facility]) doxycycline hyclate 100 MG Oral Tablet [facility] ([facility]) Docusate Sodium 100 MG Oral Capsule [facility] ([facility]) Divalproex Sodium 500 MG Delayed Release Oral Tablet [facility] ([facility]) Divalproex Sodium 250 MG Delayed Release Oral Tablet [facility] ([facility]) Cephalexin 500 MG Oral Capsule [facility] ([facility]) buspirone hydrochloride 7.5 MG Oral Tablet [facility] ([facility])
[2021-07-09 09:04] LABS: HCG, SERUM QUALITATIVE NEGATIVE (NEGATIVE)
[2021-07-09 09:14] LABS: ALT/SGPT 39 U/L (12-78); BILIRUBIN,DIRECT < 0.1 MG/DL (0.0-0.2); BILIRUBIN,TOTAL 0.2 MG/DL (0.2-1.0); BLOOD UREA NITROGEN 8 MG/DL (7-18); CARBON DIOXIDE LEVEL 26 MEQ/L (21-32); CHLORIDE LEVEL 109 MEQ/L (98-107); CREATININE FOR GFR 0.67 MG/DL (0.55-1.30); GLOMERULAR FILTRATION RATE > 60.0 (>60); GLUCOSE, FASTING 75 MG/DL (70-100); LIPASE 362 U/L (73-393); NT-PRO BNP 40 PG/ML (<125); POTASSIUM SERUM 3.6 MEQ/L (3.5-5.1); SODIUM LEVEL 141 MEQ/L (136-145); TOTAL PROTEIN 8.3 GM/DL (6.4-8.2)
--- NOTE | 2021-07-09 09:35 | REP ---
INDICATION: CHEST PAIN COMPARISON: 12/14/2020 TECHNIQUE: Portable AP view of the chest FINDINGS: The mediastinum and cardiac silhouette are stable and within normal limits for portable technique. The lung francis are clear without acute consolidation, effusion, or pneumothorax. Skeletal structures are intact. IMPRESSION: No acute cardiopulmonary process appreciated. <Electronically signed by Yogi Huerta > 07/09/21 [id number]
[2021-07-09 10:58] LABS: MAGNESIUM LEVEL 1.8 MG/DL (1.8-2.4)
--- NOTE | 2021-07-09 19:05 | ECGEPIP ---
[facility] - ED Test Date: 2021-07-09 Pat Name: BIGG SIMS Department: Room: - Gender: Female Foreign [employer]omat: : 1985 Requested By: LANDRY Alexander Order Number: [id number] Reading MD: Yessica Caal Measurements Intervals [place] Rate: 71 P: 52 NH: 148 QRS: 38 QRSD: 92 T: 34 QT: 460 QTc: 499 Interpretive Statements Normal sinus rhythm T wave abnormality, consider ischemia Prolonged QT similar 06/18/21 Electronically Signed on 07-09-2021 19:05:19 EST by Yessica Caal
--- NOTE | 2021-07-09 20:19 | MHIPNPDOC ---
[facility] Progress Note Progress Note DATE OF SERVICE: 07/09/21 Patient presented by PSA, meets criteria for involuntary admission, see PSA note for details. Vital Signs Vital Signs Date Time Temp Pulse Resp B/P (MAP) Pulse Ox O2 Delivery O2 Flow Rate FiO2 07/09/21 10:30 65 100 07/09/21 09:15 136/93 (107) 07/09/21 08:30 Room Air 07/09/21 07:34 98.0 16 Laboratory Data 24H Labs Laboratory Tests 2 07/09/21 07:46: Immature Granulocyte % (Auto) 0.2, Neutrophils (%) (Auto) 36.6, Lymphocytes (%) (Auto) 47.5H, Monocytes (%) (Auto) 11.3H, Eosinophils (%) (Auto) 3.2H, Basophils (%) (Auto) 1.2H, Neutrophils # (Auto) 1.5, Lymphocytes # (Auto) 1.9, Monocytes # (Auto) 0.5, Eosinophils # (Auto) 0.1, Basophils # (Auto) 0.1, Nucleated Red Blood Cells % (auto) 0.0, Anion Gap 6L, Glomerular Filtration Rate > 60.0, Calcium Level 9.0, Magnesium Level 1.8, Total Bilirubin 0.2, Direct Bilirubin < 0.1, Aspartate Amino Transf (AST/SGOT) 27, Alanine Aminotransferase (ALT/SGPT) 39, Alkaline Phosphatase 112, VU-Yli-U-Type Natriuretic Peptide 40, Total Protein 8.3H, Albumin 4.0, Albumin/Globulin Ratio 0.9L, Lipase 362, Thyroid Stimulating Hormone (TSH) 1.790, Human Chorionic Gonadotropin, Qual NEGATIVE 07/09/21 08:13: POC Troponin I (Misc) 0.00 CBC/BMP Laboratory Tests 07/09/21 07:46 Allergies Coded Allergies: No Known Allergies (Verified , 06/02/20) BRANDI ESTES MD Jul 09, 2021 20:19
[2021-07-10 09:03] LABS: RSV AMPLIFICATION NEGATIVE (NEGATIVE)
[2021-07-10] MEDS ORDERED: MAALOX 30 ML SUSP *UDC PO PRN (15:35)
[2021-07-10] MEDS ORDERED: MOM 30ML SUSPENSION UDC PO PRN (15:35)
[2021-07-10] MEDS ORDERED: ACETAMINOPHEN TAB 650MG DOSE (2X325MG) PO PRN (15:35)
--- OUTSIDE RECORDS SUMMARY | 2021-07-10 15:53 | CCD ---
Author Author [facility] Organization [facility] Address Unknown Phone Unavailable Care Team Providers Care Assistant Public Defender Name Role Phone Vicki Hanna MD Unavailable [...] Unavailable ABI SANCHEZ MD Unavailable Unavailable Green LINE ASSEMBLY UTILITY WORKER LINE ASSEMBLY UTILITY WORKER, Gina Unavailable Unavailable Green LINE ASSEMBLY UTILITY WORKER LINE ASSEMBLY UTILITY WORKER, Gina Unavailable Unavailable Green LINE ASSEMBLY UTILITY WORKER LINE ASSEMBLY UTILITY WORKER, Gina Unavailable Unavailable Green LINE ASSEMBLY UTILITY WORKER LINE ASSEMBLY UTILITY WORKER, Gina Unavailable Unavailable Green LINE ASSEMBLY UTILITY WORKER LINE ASSEMBLY UTILITY WORKER, Gina Unavailable Unavailable Neli Huntley MD Unavailable [...] Unavailable Katherine Huntley MD Unavailable Unavailable Katherine Hutnley MD Unavailable Unavailable Vicki Hanna MD Unavailable [...] is protected by Article 27-F of the [facility] Public Health law. If you continue you may have access to information: Regarding HIV / AIDS; Provided by facilities licensed or operated by the [facility] Office of Mental Health; or Provided by the [facility] Office for People With Developmental Disabilities. If such information is present, then the following [facility] mandated warning applies: This information has been [...] law may result in a fine or chcf sentence or both. A general authorization for the release of medical or other information is NOT sufficient authorization for further disc losure. Allergies and Adverse Reactions Type Description Substance Reaction Status Data Source(s ) Propensity to adverse reactions NO KNOWN ALLERGIES NO KNOWN ALLERGIES [facility] Propensity to adverse reactions Propensity to adverse reacti ons No Known Drug Allergies [facility] Family History Family Member Name Family Member Gender Family Member Status Date o f Status Description Data Source(s) Unknown Male Diagnosis 01/22/2014 12:00:00 AM EDT [facility] ([facility]) Encounters Encounter Providers Location Date Indications Data Source(s ) Inpatient Attender: SPENCER Henderson er: Sepncer MagdalenoAdmitter: SPENCER MAGDALENOReferrer: SPENCER MAGDALENO [id number] 06/19/2021 01:31:00 AM EST - 06/24/2021 11:51:00 AM [facility] Patient discharged. Julito Hanna MD: [address] [place] [phone], Ph. Attender: Julito Hanna MD [facility] Medical 05/13/2021 12:00:00 AM EDT [facility] ([facility]) Attender: Carolina Huntley MD [facility] 0 04/14/2021 01:46:00 PM EDT - 04/14/2021 01:46:00 PM EDT [facility] Preadmit Attender: Dorie Huntley MD [facility] 0 02/23/2021 12:25:00 AM EDT - 02/23/2021 12:25:00 AM EDT [facility] Discharge cancelled. Disregard status an d discharged date. Inpatient Attender: Annelise Savage nder: ANNELISE GRAY MDAdmitter: ANNELISE GRAY MD [facility] 01/27/2021 01:41:00 PM EDT - 02/24/2021 10:00:00 AM EDT PSYCHOACTIVE SUBSTANCE DEPENDENCE [facility] PSYCHOACTIVE SUBSTANCE DEPENDENCE Patient discharged. Inpatient Attender: Kena Chowdhury DOAdmitter: Raul Chowdhury DO SURG-MED 01/14/2021 10:13:00 AM EDT - 01/18/2021 12:43:00 PM EDT [facility] Patient discharged. Inpatient Attender: Kena Chowdhury DOAdmitter: Raul magdalena [place] SURG-MED 01/14/2021 10:13:00 AM EDT - 01/18/2021 12:43:00 PM EDT [facility]. V Attender: Kena Chowdhury DOAdmitter: Raul Chowdhury DO SURG-MED 01/13/2021 05:23:00 PM EDT [facility] Patient admitted. Outpatient Attender: ABI SANCHEZ MD SURG-LAB 01/13/2021 04:01: 00 PM EDT [facility] Attender: Carolina Jimenez 0 11/03/2020 11:58:00 AM EDT - 11/03/2020 11:58:00 AM EDT [facility] ([facility]) Attender: Carolina Jimenez 0 10/15/2020 02:33:00 PM EDT - 10/15/2020 02:33:00 PM EDT [facility] ([facility]) Attender: Carolina Hernández 03:02:00 PM EDT - 10/13/2020 03:02:00 PM EDT [facility] ([facility]) Attender: Carolina Hernández 11/2020 01:36:00 PM EST - 10/03/2020 01:36:00 PM EST [facility] ([facility]) Attender: Carolina Jimenez 0 09/26/2020 10:53:00 AM EST - 09/26/2020 10:53:00 AM EST [facility] ([facility]) Attender: Gina France NP LINE ASSEMBLY UTILITY WORKER MARELY Hernández 0 09/25/2020 09:16:00 AM EST - 09/25/2020 09:16:00 AM EST Contact with and (suspected) exposure to viral hepatitisUnspecified viral hepatitis C without hepatic coma [facility] ([facility]) Contact with and (suspected) exposure to viral hepatitis Unspecified viral hepatitis C without he patic coma Attender: Gina France LINE ASSEMBLY UTILITY WORKER LINE ASSEMBLY UTILITY WORKER PPESTHERSAIDA [place] 0 09/22/2020 01:14:00 PM EST - 09/22/2020 01:14:00 PM EST Trichomonal vulvovaginitis [facility] ([facility]) Trichomonal vulvovaginitis OFFICE VISIT, ESTOutpatient Attender: Gina Román LINE ASSEMBLY UTILITY WORKER LINE ASSEMBLY UTILITY WORKER [place] 09/15/2020 02:45:00 PM EST - 09/15/2020 02:45:00 [...] result negative [facility] ([facility]) Other specified noninflammatory disorder s [...] Attender: Julito PASTRANA 05/16/2020 04:01:01 PM EDT [facility] Outpatient Attender: Julito Hanna MD 05/16/2020 03:47:00 PM EDT [facility] Inpatient Attender: Annelise Gray MDAtte nder: ANNELISE GRAY MDAdmitter: ANNELISE GRAY MDConsultant: ANNELISE GRAY MDConsultant: Annelise Gray MD [facility] 04/16/2020 10:19:00 AM EDT - 05/14/2020 11:45:00 AM EDT PSYCHOACTIVE SUBSTANCE DEPENDENCE [facility] PSYCHOACTIVE [...] Take 3 capsules by m outh daily [facility] 50 mg 06/24/2021 12:00:00 AM EST tablet 30 TAKE ONE TABLET BY MOUTH IN THE EVENING TAKE ONE TABLET BY MOUTH IN THE EVENING SOLD: 06/26/2021 [facility] buspirone hydrochloride 10 MG Oral Table t busPIRone HCl 10 MG Oral Tablet (BUSPAR) busPIRone HCl 10 MG Oral Tablet (BUSPAR) 06/24/2021 12:00:00 AM EST 20 mg Oral active Take 2 tablets by mouth Three times daily [facility] benztropine mesylate 1 MG Oral Tablet Be nztropine Mesylate 1 MG Oral Tablet (COGENTIN) Benztropine Mesylate 1 MG Oral Tablet (COGENTIN) 06/24 12:00:00 AM EST 1 mg Oral active Take 1 tablet by mouth Two Times Daily [facility] topiramate 100 MG Oral Tablet Topiramate 100 MG Oral T ablet (TOPAMAX) Topiramate 100 MG Oral Tablet (TOPAMAX) 06/24/2021 12:00:00 AM EST 100 mg Ora l active Take 1 tablet by mouth daily [facility] Trazodone Hydrochloride 50 MG Oral Table t traZODone HCl 50 MG Oral Tablet (DESYREL) traZODone HCl 50 MG Oral Tablet (DESYREL) 06/24/2021 12:00:0 0 AM EST 50 mg Oral active Take 1 tablet by mouth nightly [facility] 1 mg 06/24/2021 12:00:00 AM EST tablet 60 TAKE ONE TABLET BY MOUTH TWICE A DAY TAKE ONE TABLET BY MOUTH TWICE A DAY SOLD: 06/26/2021 [facility] buspirone hydrochloride 10 MG Oral Tablet BUSPIRONE HCL 06/24/2021 12:00:00 AM EST tablet 180 TAKE TWO TABLETS BY MOUTH TH REE TIMES A DAY TAKE TWO TABLETS BY MOUTH THREE TIMES A DAY SOLD: 06/26/2021 [facility] 100 mg 06/24/2021 12:00:00 AM EST tablet 30 TAKE ONE TABLET BY MOUTH EVERY DAY TAKE ONE TABLET BY MOUTH EVERY DAY SOLD: 06/26/2021 [facility] Buprenorphine 8 MG / Naloxone 2 MG Oral Strip buprenorphine-naloxone (SUBOXONE) 8-2 MG per sublingual film 1 Film buprenorphine-naloxone (SUBOXONE) 8-2 MG per sublingual film 1 Film 06/23/2021 05:15:00 PM EST Sublingual active 1 Film (8 mg of buprenorphine), Sublingual, 2 Times Daily, First dose (after last modification) on Tue06/23/21 at 1715, For 7 days [facility] Medication administered onsite buspirone hydrochloride 10 MG Oral Tablet busPIRone (B USPAR) tablet 20 mg busPIRone (BUSPAR) tablet 20 mg 06/22/2021 09:00:00 PM EST 20 mg O ral active 20 mg, Oral, Three Times Daily Standard, First dose (after last modification) on 06/22/21 at 2100, For 11 doses [facility] Medication administered onsite 10 mg 06/21/2021 12:00:00 AM EST capsule 10 TAKE ONE CAPSULE BY MOUTH EVERY MORNING TAKE ONE CAPSULE BY MOUTH EVERY MORNING SOLD: 06/26/2021 [facility] buspirone hydrochloride 15 MG Oral Tablet busPIRone (B USPAR) tablet 15 mg busPIRone (BUSPAR) tablet 15 mg 06/20/2021 09:00:00 PM EST 15 mg O ral aborted 15 mg, Oral, Three Times Daily Standard, First dose (after last modification) on 06/20/21 at 2100, For 17 doses [facility] Medication administered onsite 1.5 ML paliperidone palmitate 156 MG/ML Prefilled Syringe paliperidone palmitate (INVEGA SUSTENNA) 234 MG/1.5ML extended-release injection 234 mg paliperidone palmitate (INVEGA SUSTENNA) 234 MG/1.5ML extended-release injection 234 mg 06/20/2021 05:00:00 PM EST 234 mg Intramuscular complet ed 234 mg, Intramuscular, Once, On 06/20/21 at 1700, For 1 dose [facility] Medication administered onsite Buprenorphine 8 MG / Naloxone 2 MG Subli ngual Tablet buprenorphine-naloxone (SUBOXONE) 8-2 MG per sublingual tablet 1 tablet buprenorphine-naloxone (SUBOXONE) 8-2 MG per sublingual tablet 1 tablet 06/20/2021 05:00:00 PM EST Sublingual aborted 1 tablet (8 mg of buprenorphine), Sublingual, 2 Times Daily, First dose (after last modification) on 06/20/21 at 1700, For 11 doses [facility] Medication administered onsite 24 HR Nicotine 0.875 MG/HR Transdermal P atch nicotine (NICODERM CQ) 21 MG/24HR 1 patch nicotine (NICODERM CQ) 21 MG/24HR 1 patch 06/20/2021 12:00:00 PM EST 1 {patch} Transdermal active 1 patch, Transdermal, Administer over 24 Hours, Daily Standard, First dose (after last modification) on 06/20/21 at 1200, For 30 days [facility] Medication administered onsite Nicotine 2 MG Oral Lozenge nicotine (NICORETTE) lozeng e 2 mg nicotine (NICORETTE) lozenge 2 mg 06/20/2021 11:07:01 AM EST 2 mg Mouth/Th roat active 2 mg, Mouth/Throat, Every 2 hours PRN, Smoking cessation, Starting on Tue06/20/21 at 1107, For 30 days
Should not be chewed or swallowed; allow to dissolve slowly (~20-30 minutes)
[facility] Medication administered onsite Haloperidol 5 MG Oral Tablet haloperidol (HALDOL) tabl et 5 mg haloperidol (HALDOL) tablet 5 mg 06/19/2021 09:00:00 PM EST 5 mg Oral aborted 5 mg, Oral, 2 Times Daily, First dose (after last modification) on Tue06/19/21 at 2100, For 59 doses [facility] Medication administered onsite sennosides, FDC 8.6 MG Oral Tablet senna tablet 2 tablet sen na tablet 2 tablet 06/19/2021 02:49:34 PM EST 2 {tbl} Oral active 2 tablet, Oral, Nightly PRN, Constipation, Starting on Tue06/19/21 at 1449, For 30 days [facility] Medication administered onsite Bisacodyl 10 MG Rectal Suppository bisacodyl (DULCOLAX ) suppository 10 mg bisacodyl (DULCOLAX) suppository 10 mg 06/19/2021 02:49:34 PM EST 10 mg Rectal active 10 mg, Rectal, Every 72 hours PRN, Constipation, Starting on Tue06/19/21 at 1449, For 30 days
Hold if patient has had BM within the past 2 days.
[facility] Medication administered onsite buspirone hydrochloride 10 MG Oral Tablet busPIRone (B USPAR) tablet 10 mg busPIRone (BUSPAR) tablet 10 mg 06/19/2021 02:00:00 PM EST 10 mg O ral aborted 10 mg, Oral, Three Times Daily Standard, First dose (after last modification) on Tue06/19/21 at 1400, For 7 days [facility] Medication administered onsite gabapentin 300 MG Oral Capsule gabapentin (NEURONTIN) capsule 600 mg gabapentin (NEURONTIN) capsule 600 mg 06/19/2021 12:00:00 PM EST 600 mg Oral active Fibromyalgia Syndrome 600 mg, Oral, Three Times D aily Standard, Indications: Fibromyalgia Syndrome, First dose (after last modification) on Tue06/19/21 at 1200, For 89 doses [facility] Fibromyalgia Syndrome Medication administered onsite Docusate Sodium 100 MG Oral Capsule docusate sodium (C OLACE) capsule 100 mg docusate sodium (COLACE) capsule 100 mg 06/19/2021 09:00:00 AM EST 100 mg Oral active 100 mg, Oral, Daily Standard, First dose on Tue06/19/21 at 0900, For 30 days [facility] Medication administered onsite buspirone hydrochloride 10 MG Oral Tablet busPIRone (B USPAR) tablet 10 mg busPIRone (BUSPAR) tablet 10 mg 06/19/2021 09:00:00 AM EST 10 mg O ral aborted 10 mg, Oral, 2 Times Daily, First dose on Tue06/19/21 at 0900, For 30 days [facility] Medication administered onsite gabapentin 300 MG Oral Capsule gabapentin (NEURONTIN) capsule 600 mg gabapentin (NEURONTIN) capsule 600 mg 06/19/2021 09:00:00 AM EST 600 mg Oral aborted Alcohol Withdrawal Syndrome 600 mg, Oral, Three Times Daily Standard, Indications: Alcohol Withdrawal Syndrome, First dose on Tue06/19/21 at 0900, For 30 days [facility] Alcohol Withdrawal Syndrome Medication administered onsite FLUoxetine (PROZAC) capsule 30 mg 06/19/2021 09:00:00 AM EST 30 mg Oral active 30 mg, Oral, Daily Standard, First dose on Tue06/19/21 at 0900, For 30 days [facility] Medication administered onsite Oxybutynin chloride 5 MG Oral Tablet oxybutynin (DITRO PEDRAZA) tablet 5 mg oxybutynin (DITROPAN) tablet 5 mg 06/19/2021 09:00:00 AM EST 5 mg Oral active 5 mg, Oral, 2 Times Daily, First dose on Tue06/19/21 at 0900, For 30 days [facility] Medication administered onsite haloperidol (HALDOL) tablet 6 mg 06/19/2021 09:00:00 AM EST 6 mg Oral aborted 6 mg, Oral, 2 Times Daily, First dose on Tue06/19/21 at 0900, For 30 days [facility] Medication administered onsite topiramate 100 MG Oral Tablet topiramate (TOPAMAX) tab let 100 mg topiramate (TOPAMAX) tablet 100 mg 06/19/2021 09:00:00 AM EST 100 mg Oral active 100 mg, Oral, Daily Standard, First dose on Tue06/19/21 at 0900, For 30 days [facility] Medication administered onsite Buprenorphine 8 MG / Naloxone 2 MG Subli ngual Tablet buprenorphine-naloxone (SUBOXONE) 8-2 MG per sublingual tablet 1 tablet buprenorphine-naloxone (SUBOXONE) 8-2 MG per sublingual tablet 1 tablet 06/19/2021 09:00:00 AM EST Sublingual aborted 1 tablet (8 mg of buprenorphine), Sublingual, 2 Times Daily, First dose on Tue06/19/21 at 0900, For 7 days [facility] Medication administered onsite benztropine mesylate 1 MG Oral Tablet benztropine (COG ENTIN) tablet 1 mg benztropine (COGENTIN) tablet 1 mg 06/19/2021 09:00:00 AM EST 1 mg Oral active 1 mg, Oral, 2 Times Daily, First dose on Tue06/19/21 at 0900, For 30 days [facility] Medication administered onsite Trazodone Hydrochloride 50 MG Oral Tablet trazodone (D ESYREL) tablet 50 mg trazodone (DESYREL) tablet 50 mg 06/19/2021 02:30:00 AM EST 50 mg Oral active 50 mg, Oral, Nightly , First dose on Tue06/19/21 at 0230, For 30 days [facility] Medication administered onsite Nicotine 2 MG Oral Lozenge nicotine (NICORETTE) lozeng e 2 mg nicotine (NICORETTE) lozenge 2 mg 06/19/2021 01:51:30 AM EST 2 mg Mouth/Th roat aborted 2 mg, Mouth/Throat, Every 2 hours PRN, Smoking cessation, Starting on Tue06/19/21 at 0151, For 30 days
Should not be chewed or swallowed; allow to dissolve slowly (~20-30 minutes)
[facility] Medication administered onsite Acetaminophen 325 MG Oral [...] mg from all sources in 24 hrs.
[facility] Medication administered onsite Aluminum Hydroxide 40 MG/ML [...] Max of 4 doses per 24-hour period
[facility] Medication administered onsite Magnesium Hydroxide 80 MG/ML [...] creatinine > 2 notify provider before administering
[facility] Medication administered onsite Hydroxyzine Hydrochloride 50 MG Oral Tablet hydrOXYzin e (ATARAX) tablet 50 mg hydrOXYzine (ATARAX) tablet 50 mg 06/19/2021 01:49:45 AM EST 50 mg Oral active 50 mg, Oral, Every 6 hours PRN, Anxiety, Sleep, Starting on Tue06/19/21 at 0149, For 30 days [facility] Medication administered onsite Ondansetron 4 MG Disintegrating Oral Tab let ondansetron (ZOFRAN-ODT) disintegrating tablet 4 mg ondansetron (ZOFRAN-ODT) disintegrating tablet 4 mg 06/19/2021 01:49:45 AM EST 4 mg Oral active 4 mg, Oral, Every 6 hours PRN, Nausea, Starting on Tue06/19/21 at 0149, For 30 days
Dissolve on tongue.
[facility] Medication administered onsite 1 ML haloperidol decanoate 100 MG/ML Injection HALOPERIDOL D ECANOATE 06/17/2021 12:00:00 AM EST solution 1 INJECT 1ML INTRAMUSCULARL Y EVERY 30 DAYS INJECT 1ML INTRAMUSCULARLY EVERY 30 DAYS SOLD: 06/26/2021 [facility] 10 mg 06/16/2021 12:00:00 AM EST [...] Decanoate 100 MG/ML Intramuscular Solution (HALDOL DECANOATE) [id number] 06/16/2021 12:00:00 AM EST 100 mg Intramuscular aborted Inject 100 mg into the muscle every 28 (twenty-eight) days [facility] 300 mg 06/16/2021 12:00:00 AM EST capsule [...] times daily as needed for Smoking cessation [facility] 100 mg/mL 06/11/2021 12:00:00 AM EST solution 1 INJECT 1 ML INTRAMUSCULARLY EVERY 28 DAYS INJECT 1 ML INTRAMUSCULARLY EVERY 28 DAYS SOLD: 06/26/2021 [facility] buspirone hydrochloride 15 MG Oral Tablet BUSPIRONE HCL 06/11/2021 12:00:00 AM EST tablet 21 TAKE ONE TABLET BY MOUTH THR EE TIMES A DAY FOR ANXIETY TAKE ONE TABLET BY MOUTH THREE TIMES A DAY FOR ANXIETY SOLD: 06/26/2021 [facility] Fluoxetine 20 MG Oral Capsule FLUoxetine HCl 20 MG Ora l Capsule (PROZAC) FLUoxetine HCl 20 MG Oral Capsule (PROZAC) 06/10/2021 12:00:00 AM EST aborted [facility] Haloperidol 5 MG Oral Tablet Haloperidol 5 MG Oral Tab let (HALDOL) Haloperidol 5 MG Oral Tablet (HALDOL) 06/10/2021 12:00[facility]00 [facility] MG Oral Table t busPIRone HCl 15 MG Oral Tablet (BUSPAR) busPIRone HCl 15 MG Oral Tablet (BUSPAR) 06/10/2021 12:00:00 AM EST aborted [facility] Mupirocin 0.02 MG/MG Topical Ointment Mu pirocin 2 % External Ointment (BACTROBAN) Mupirocin 2 % External Ointment (BACTROBAN) 06/10/2021 12:00:00 AM EST Topical aborted Apply to pically Two Times Daily Apply to affected area(s) around wound topically twice daily as directed. [facility] 100 mg 06/05/2021 12:00:00 AM EDT tablet [...] DAILY DOSE = 2 FILMS SOLD: 06/11/2021 [facility] aripiprazole 400 MG Injection [Abilify] Abilify Maintena 400 MG Intramuscular Suspension Reconstituted ER Abilify Maintena 400 MG Intramuscular Samuel spension Reconstituted ER 05/27/2021 12:00:00 AM EDT 400 mg Intramuscular aborted Inject 400 mg into the muscle every 30 ( thirty) days [facility] Buprenorphine 8 MG / Naloxone 2 MG Oral Strip [Suboxone] Suboxone 8-2 MG Sublingual Film Suboxone 8-2 MG Sublingual Film 05/27/2021 12:00:[address] ONE FILM UNDER THE TONGUE TWICE A DAY MAXIMUM DAILY DOSE 2 FILMS [facility] 50 mg 05/25/2021 12:00:00 AM EDT tablet [...] aborted Take 10 mg by mouth daily [facility] 5 mg 05/25/2021 12:00:00 AM EDT tablet 14 TAKE ONE TABLET BY MOUTH TWICE A DAY FOR OVERACTIVE BLADDER TAKE ONE TABLET BY MOUTH TWICE A DAY FOR OVERACTIVE BLADDER SOLD: 05/25/2021 [facility] 10 mg 05/25/2021 12:00:00 AM EDT tablet 7 TAKE ONE TABLET BY MOUTH EVERY DAY FOR MOOD TAKE ONE TABLET BY MOUTH EVERY DAY FOR MOOD SOLD: 05/25/2021 [facility] buspirone hydrochloride 15 MG Oral Tablet BUSPIRONE HCL 05/25/2021 12:00:00 AM EDT tablet 14 TAKE ONE TABLET BY MOUTH THR EE TIMES A DAY FOR ANXIETY TAKE ONE TABLET BY MOUTH THREE TIMES A DAY FOR ANXIETY SOLD: 05/25/2021 [facility] Mirtazapine 15 MG Oral Tablet Mirtazapine 15 MG Oral T ablet (REMERON) Mirtazapine 15 MG Oral Tablet (REMERON) 05/25/2021 12:00:00 AM EDT 15 mg Oral aborted Take 15 mg by mouth night ly [facility] 15 mg 05/25/2021 12:00:00 AM EDT tablet 7 TAKE ONE TABLET BY MOUTH AT BEDTIME FOR SLEEP TAKE ONE TABLET BY MOUTH AT BEDTIME FOR SLEEP SOLD: [facility] 4 mg 05/25/2021 12:00:00 AM EDT [...] mg by mouth every morning [facility] 2-0.5 mg 05/14/2021 12:00:00 AM EDT film [...] 600 mg by mouth Three times daily [facility] Cephalexin 500 MG Oral Capsule CEPHALEXIN 05/13/2021 [...] BY MOUTH EVERY 6 HOURS UNTIL GONE [facility] buspirone hydrochloride 15 MG Oral Tablet BUSPIRONE [...] [facility] Narcan 4 MG/0.1ML Nasal Liquid 04654-592-26 05/13/2021 12:00:00 AM EDT 1 {spray} Nasal active 1 spray by Nasal route o [facility] 5 mg 05/13/2021 12:00:00 AM EDT tablet 30 TAKE ONE TABLET BY MOUTH TWICE A DAY FOR URINARY DISCOMFORT TAKE ONE TABLET BY MOUTH TWICE A DAY FOR URINARY DISCOMFORT SOLD: 07/08/2021 [facility] 4 mg/actuation 05/13/2021 12:00:00 AM EDT spray,non-aerosol [...] EVERY THREE HOURS, NEEDE D SOLD: 04/16/2021 [facility] olanzapine 10 MG Oral Tablet OLANZAPINE 04/15/2021 12:00:00 AM EDT tab let 22 TAKE ONE HALF (0.5) TABLET BY MOUTH EVERY IN THE MORNING AND ONE (1) TABLET AT BEDTIME TAKE ONE HALF (0.5) TABLET BY MOUTH EVER Y IN THE MORNING AND ONE (1) TABLET AT BEDTIME SOLD: 04/16/2021 [facility] buspirone hydrochloride 15 MG Oral Tablet BUSPIRONE HCL 04/15/2021 12:00:00 AM EDT tablet 45 TAKE ONE TABLET BY MOUTH THR EE TIMES A DAY TAKE ONE TABLET BY MOUTH THREE TIMES A DAY SOLD: 04/16/2021 [facility] 600 mg 04/15/2021 12:00:00 AM EDT tablet 45 TAKE 1 TABLET BY MOUTH THREE TIMES A DAY TAKE 1 TABLET BY MOUTH THREE TIMES A DAY SOLD: 04/16/2021 [facility] olanzapine 10 MG Oral Tablet OLANZapine 10 MG Oral Tab let (ZYPREXA) OLANZapine 10 MG Oral Tablet (ZYPREXA) 04/15/2021 12:00:00 AM EDT aborted TAKE ONE HALF 0.5 TABLET BY MOUTH EVERY IN THE MORNING AND ONE 1 TABLET AT BEDTIME [facility] Mirtazapine 30 MG Oral Tablet Mirtazapine 30 MG Oral T ablet (REMERON) Mirtazapine 30 MG Oral Tablet (REMERON) 04/15/2021 12:00:00 AM EDT 30 mg Oral aborted Take 30 mg by mouth night ly [facility] 4 mg 03/30/2021 12:00:00 AM EDT gum 110 CHEW ONE PIECE OF GUM BUCCALLY EVERY 3 HOURS NEEDED CHEW ONE PIECE OF GUM BUCCALLY EVERY 3 HOURS NEEDED SOLD: 03/30/2021 [facility] buspirone hydrochloride 15 MG Oral Tablet BUSPIRONE HCL 03/30/2021 12:00:00 AM EDT tablet 45 TAKE ONE TABLET BY MOUTH THR EE TIMES A DAY TAKE ONE TABLET BY MOUTH THREE TIMES A DAY SOLD: 03/30/2021 [facility] Risperidone 2 MG Oral Tablet RISPERIDONE 03/30/2021 12:00:00 AM EDT ta blet 15 TAKE ONE TABLET BY MOUTH AT BEDTIME TAKE ONE TABLET BY MOUTH AT BEDTIME SOLD: 03/30/2021 [facility] 8-2 mg 03/30/2021 [...] Oral aborted Take 1 mg by mouth [facility] Risperidone 2 MG Oral Tablet risperiDONE 2 MG Oral Tab let (RISPERDAL) risperiDONE 2 MG Oral Tablet (RISPERDAL) 03/30/2021 12:00:00 AM EDT 2 mg Oral aborted Take 2 mg by mouth [facility] 100 mg 03/30/2021 12:00:00 AM EDT tablet [...] SM Fiber Powder 25 % Oral Powder [id number] 02/26/2021 12:00:00 AM EDT aborted TAKE 1 ROUNDED T EASPOONFUL MIXED IN FLUID BY MOUTH TWO TIMES A DAY [facility] 3.4 gram/12 gram 02/26/2021 12:00:00 AM EDT [...] Take 25 mg by m outh nightly [facility] Cholecalciferol 1999 Oral Tablet Vitamin D3 50 MCG (1999) Oral Tablet Vitamin D3 50 MCG (1999) Oral Tablet 02/24/2021 12:00:00 AM EDT 1 {tbl} Oral aborted Take 1 tablet by stefany th daily [facility] 8.6-50 mg 02/24/2021 12:00:00 AM EDT tablet [...] EDT abor marques APPLY 1 PATCH DAILY [facility] Nicotine 2 MG Chewing Gum Nicotine Polacrilex 2 MG Stefany th/Throat Gum (NICORETTE) Nicotine Polacrilex 2 MG Mouth/Throat Gum (NICORETTE) 02/24/2021 12:00:00 AM EDT aborted USE ONE PIECE EV BELINDA HOUR NEEDED FOR NICOTINE CRAVINGS [facility] 24 HR Oxybutynin chloride 10 MG Extended Release Oral Tablet Oxybutynin Chloride ER 10 MG Oral Tablet Extended Release 24 Hour (DITROPAN-XL) Oxybutynin Chloride ER 10 MG Oral Tablet Extended Release 24 Hour (DITROPAN-XL) 02/24/2021 12:00:00 AM EDT 10 mg Oral aborted Take 10 mg by m outh daily [facility] 21 mg/24 hr 02/24/2021 12:00:00 AM EDT patch 24 hour 28 APPLY 1 PATCH DAILY APPLY 1 PATCH DAILY SOLD: 02/24/2021 Lizzie Reyes Docusate Sodium 50 MG / sennosides, FDC 8.6 MG Oral Tablet Stool Softener/Laxative 50-8.6 MG Oral Tablet Stool Softener/Laxative 50-8.6 MG Oral Tablet 02/24/2021 12:00:00 AM EDT 2 {tbl} Oral aborted Take 2 tablets by mouth Two Times Daily [facility] Sertraline 100 MG Oral Tablet Sertraline HCl 100 MG Or al Tablet (ZOLOFT) Sertraline HCl 100 MG Oral Tablet (ZOLOFT) 02/24/2021 12:00:00 AM EDT 100 mg Oral aborted Take 100 mg by mouth daily [facility] atomoxetine 40 MG Oral Capsule Atomoxetine HCl 40 MG O ral Capsule (STRATTERA) Atomoxetine HCl 40 MG Oral Capsule (STRATTERA) 02/24/2021 12:00:00 AM EDT 40 mg Oral aborted Take 40 mg by mouth [facility] atomoxetine 10 MG Oral Capsule Atomoxetine HCl 10 MG O ral Capsule (STRATTERA) Atomoxetine HCl 10 MG Oral Capsule (STRATTERA) 02/24/2021 12:00:00 AM EDT 20 mg Oral aborted Take 20 mg by mouth [facility] buspirone hydrochloride 15 MG Oral Tablet BUSPIRONE [...] TWICE A DAY AT 6AM AND 6PM [facility] Levothyroxine Sodium 0.05 MG Oral Tablet Levothyroxine Sodium 50 MCG Oral Tablet (SYNTHROID) Levothyroxine Sodium 50 MCG Oral Tablet (SYNTHROID) 12:00:00 AM EDT 50 ug Oral aborted Take 50 mcg by mouth daily [facility] Melatonin 3 MG Oral Tablet Melatonin 3 MG Oral Tablet 2020 12:00:00 AM EDT aborted TAKE TWO TABLETS BY MOUTH AT BEDTIME NEEDED FOR SLEEP [facility] Tab-A-Silvestre Oral Tablet [id number] 02/24/2021 12:00:00 AM EDT 1 {tbl} Oral aborted Take 1 tablet by mouth daily [facility] olanzapine 5 MG Oral Tablet OLANZAPINE 02/24/2021 [...] CALL 911 SOLD: 02/24/2021 [facility] 3 mg 01/18/2021 12:00:00 AM EDT tablet 5 TAKE ONE TABLET BY MOUTH AT BEDTIME TAKE ONE TABLET BY MOUTH AT BEDTIME SOLD: 01/19/2021 [facility] Docusate Sodium 100 MG Oral Capsule [Col gopi] Docusate Sodium (Colace) 100 MG CAPSULE Docusate Sodium (Colace) 100 MG CAPSULE 01/18/2021 12:00:00 AM E DT 200 completed Daily as needed [facility] olanzapine 15 MG Oral Tablet Olanzapine 15 MG TABLET Olanzap ine 15 MG TABLET 01/18/2021 12:00:00 AM EDT 15 completed At Bedtime [facility] 15 mg 01/18/2021 12:00:00 AM EDT tablet 5 TAKE ONE TABLET BY MOUTH AT BEDTIME TAKE ONE TABLET BY MOUTH AT BEDTIME SOLD: 01/19/2021 [facility] Sertraline 50 MG Oral Tablet [Zoloft] Sertraline HCl 5 0 MG TABLET Sertraline HCl 50 MG TABLET 01/18/2021 12:00:00 AM EDT 50 completed At Bedtime [facility] 8-2 mg 01/18/2021 12:00:00 AM [...] TABLET BY MOUTH AT BEDTIME SOLD: 01/19/2021 [facility] Multi-Vit/Mineral (Multivitamin Tablet) 1 TAB TAB 01/18/2021 12:00:00 AM EDT 1 completed Daily [facility] doxycycline hyclate 100 MG Oral Tablet D oxycycline Hyclate 100 MG Oral Tablet (VIBRA-TABS) Doxycycline Hyclate 100 MG Oral Tablet (VIBRA-TABS) 12:00:00 AM EDT 100 mg Oral aborted Take 100 mg by mouth Two Times Daily [facility] gabapentin 600 MG Oral Tablet Gabapentin 600 MG TABLET Gabap entin 600 MG TABLET 01/18/2021 12:00:00 AM EDT 600 completed Three Times a Day [facility] Mirtazapine 15 MG Oral Tablet Mirtazapine 15 MG TABLET Christine zapine 15 MG TABLET 01/18/2021 12:00:00 AM EDT 15 completed At Bedtime [facility] 400 mcg 01/18/2021 12:00:00 AM EDT tablet 5 TAKE ONE TABLET BY MOUTH EVERY DAY TAKE ONE TABLET BY MOUTH EVERY DAY SOLD: 01/19/2021 [facility] doxycycline hyclate 100 MG Oral Tablet Doxycycline Hyc late 100 MG TABLET Doxycycline Hyclate 100 MG TABLET 01/18/2021 12:00:00 AM EDT 100 completed Twice Daily [facility] doxycycline hyclate 100 MG Oral Tablet DOXYCYCLINE HYCLATE 0 01/18/2021 12:00:00 AM EDT tablet 20 TAKE ONE TABLET BY MOUTH TWI CE A DAY TAKE ONE TABLET BY MOUTH TWICE A DAY SOLD: 01/19/2021 [facility] 600 mg 01/18/2021 12:00:00 AM EDT tablet 15 TAKE ONE TABLET BY MOUTH THREE TIMES A DAY TAKE ONE TABLET BY MOUTH THREE TIMES A DAY SOLD: 01/19/2021 [facility] Prazosin 2 MG Oral Capsule Prazosin HCl 2 MG Oral Caps ule (MINIPRESS) Prazosin HCl 2 MG Oral Capsule (MINIPRESS) 01/18/2021 12:00:00 AM EDT 2 mg Oral aborted Take [address] [facility] Buprenorphine 8 MG / Naloxone 2 MG Oral Strip [Suboxone] Buprenorphine HCl/Naloxone HCl (Suboxone 8 MG-2 MG Sl Film) 1 EACH FILM Buprenorphine HCl/Naloxone HCl (Suboxone 8 MG-2 MG Sl Film) 1 EACH FILM 01/18/2021 12:00:00 AM EDT [address] [facility] Risperidone 3 MG Oral Tablet risperiDONE 3 MG Oral Tab let (RISPERDAL) risperiDONE 3 MG Oral Tablet (RISPERDAL) 01/18/2021 12:00:00 AM EDT 3 mg Oral aborted Take 3 mg by mouth nightl y [facility] Sertraline 50 MG Oral Tablet Sertraline HCl 50 MG Oral Tablet (ZOLOFT) Sertraline HCl 50 MG Oral Tablet (ZOLOFT) 01/18/2021 12:00:00 AM EDT 50 mg Oral aborted Take 50 mg by mouth [facility] 2 mg 01/18/2021 12:00:00 AM EDT capsule 5 TAKE ONE CAPSULE BY MOUTH AT BEDTIME TAKE ONE CAPSULE BY MOUTH AT BEDTIME SOLD: 01/19/2021 [facility] Risperidone 3 MG Oral Tablet [Risperdal] Risperidone ( Risperdal) 3 MG TABLET Risperidone (Risperdal) 3 MG TABLET 01/18/2021 12:00:00 AM EDT 3 completed At Bedtime [facility] 100 mg 01/18/2021 12:00:00 AM EDT capsule 10 TAKE TWO CAPSULES BY MOUTH EVERY DAY NEEDED TAKE TWO CAPSULES BY MOUTH EVERY DAY NEEDED SOLD: 01/19/2021 [facility] olanzapine 15 MG Oral Tablet OLANZAPINE 01/18/2021 12:00:00 AM EDT tab let 5 TAKE ONE TABLET BY MOUTH AT BEDTIME TAKE ONE TABLET BY MOUTH AT BEDTIME SOLD: 01/19/2021 [facility] Prazosin 2 MG Oral Capsule [Minipress] Prazosin HCl (M inipress) 2 MG CAPSULE Prazosin HCl (Minipress) 2 MG CAPSULE 01/18/2021 12:00:00 AM EDT 2 completed At Bedtime [facility] 8-2 mg 01/13/2021 12:00:00 AM [...] TABLET BY MOUTH AT BEDTIME SOLD: 12/18/2020 [facility] 2 mg 12/17/2020 12:00:00 AM EDT [...] TWICE A DAY SOLD: 12/18/2020 [facility] olanzapine 5 MG Disintegrating Oral Tabl et OLANZapine 5 MG Oral Tablet Disintegrating (ZYPREXA) OLANZapine 5 MG Oral Tablet Disintegrating (ZYPREXA) 12/12/2020 12:00:00 AM EDT aborted DISSOLVE ONE TABLET UNDER THE TONGUE EVERY DAY [facility] 12/11/2020 12:00:00 AM EDT tablet [...] BY MOUTH AT BEDTIME FOR I NFECTION [facility] Metronidazole 500 MG Oral Tablet METRONIDAZOLE 12/05/2020 [...] EVERY MORNING MAXIMUM DAILY DOSE 1 FILM [facility] 12-3 mg 10/09/2020 12:00:00 AM EST film [...] TAKE ONE TABLET BY MOUTH AT BEDTIME [facility] 2 mg 09/29/2020 12:00:00 AM EST capsule [...] LOZENGE BUCCALLY FOUR TIMES A DAY NEEDED [facility] olanzapine 15 MG Oral Tablet OLANZAPINE 09/29/2020 [...] x 1 (#4) [facility] ([facility]) Metronidazole 500 MG Oral Tablet METRONIDAZOLE 09/22/2020 [...] BY MOUTH FOUR T IMES A DAY [facility] Haloperidol 10 MG Oral Tablet Haloperidol 10 MG Oral T ablet (HALDOL) Haloperidol 10 MG Oral Tablet (HALDOL) 08/30/2020 12:00:00 AM EST aborted TAKE TWO TABLETS BY MOUTH TWICE A DAY NEEDED [facility] 10 mg 08/30/2020 12:00:00 AM EST tablet [...] CAPSULE BY MOUTH AT BEDTIME SOLD: 08/04/2020 [facility] 4 mg 08/04/2020 12:00:00 AM EST lozenge 72 TAKE ONE TABLET BUCCALLY FOUR TIMES A DAY NEEDED TAKE ONE TABLET BUCCALLY FOUR TIMES A DAY NEEDED SO LD: 08/04/2020 [facility] Hydroxyzine Hydrochloride 50 MG Oral Tab let hydrOXYzine HCl 50 MG Oral Tablet (ATARAX) hydrOXYzine HCl 50 MG Oral Tablet (ATARAX) 08/04/2020 12:00: 00 AM EST aborted TAKE ONE TABLET BY MOUTH THREE TIMES A DAY NEEDED [facility] 400 mg 08/04/2020 12:00:00 AM EST capsule 28 TAKE ONE CAPSULE BY MOUTH FOUR TIMES A DAY TAKE ONE CAPSULE BY MOUTH FOUR TIMES A DAY SOLD: 08/04/2020 [facility] 100 mg 08/04/2020 12:00:00 AM EST tablet 7 TAKE ONE TABLET BY MOUTH EVERY MORNING TAKE ONE TABLET BY MOUTH EVERY MORNING SOLD: 08/04/2020 [facility] 30 mg 08/04/2020 12:00:00 AM EST [...] ONE TABLET BY MOUTH TWICE A DAY [facility] 8-2 mg 07/24/2020 12:00:00 AM EST film [address] PL[address] ONE FILM UNDER THE TONGUE TWICE A DAY MAXIMUM DAILY DOSE = 2 FILMS LOT # [id number] PLACE ONE FILM UNDER THE TONGUE TWICE A DAY MAXIMUM DAILY DOSE = 2 FILMS LOT # [id number] SOLD: 07/24/2020 [facility] olanzapine 5 MG Oral Tablet OLANZAPINE 07/24/2020 [...] DAILY DOSE = 2 FILMS SOLD: 07/09/2020 [facility] Sertraline 25 MG Oral Tablet Sertraline HCl 25 MG Oral Tablet (ZOLOFT) Sertraline HCl 25 MG Oral Tablet (ZOLOFT) 07/08/2020 12:00:00 AM EST 25 mg Oral aborted Take 25 mg by mouth every morning [facility] 25 mg 07/08/2020 12:00:00 AM EST tablet 10 TAKE ONE TABLET BY MOUTH EVERY MORNING TAKE ONE TABLET BY MOUTH EVERY MORNING SOLD: 07/09/2020 [facility] 8-2 mg 06/30/2020 12:00:00 AM EST [...] [facility] 168 HR Ethinyl Estradiol 0.42612 MG/HR / norelgestromin 0.42810 MG/HR Transdermal Patch [Xulane] XULANE PATCH XULANE PATCH 03/03/2020 12:00:00 AM EDT completed 168 HR ethinyl estradiol 0.66561 MG/HR / norelgestromin 0.11783 MG/HR Transdermal System [Xulane] [facility] ([facility] [...] AM EDT Oral aborted Use as directed. [facility] Sulfamethoxazole 800 MG / Trimethoprim 1 60 MG Oral Tablet Sulfamethoxazole- Trimethoprim 800-160 MG Oral Tablet (BACTRIM DS) Sulfamethoxazole-Trimethoprim 800-160 MG Oral Tablet (BACTRIM DS) 02/16/2011 12:00:00 AM EDT Oral aborted Take by mouth [facility] TRAMADOL HCL PO Drug or medicament (substance) 02/10/2011 12:00:00 AM EDT 50 mg Oral aborted Take 50 mg by mouth [facility] Ibuprofen 600 MG Oral Tablet Ibuprofen 600 MG Oral Tab let (MOTRIN) Ibuprofen 600 MG Oral Tablet (MOTRIN) 02/09/2011 12:00:00 AM EDT 600 mg Oral aborted Take 600 mg by mouth [facility] doxycycline hyclate 100 MG Oral Tablet D oxycycline Hyclate 100 MG Oral Tablet (VIBRA-TABS) Doxycycline Hyclate 100 MG Oral Tablet (VIBRA-TABS) 12:00:00 AM EDT Oral aborted Take by mouth [facility] tramadol hydrochloride 50 MG Oral Tablet traMADol HCl 50 MG Oral Tablet (ULTRAM) traMADol HCl 50 MG Oral Tablet (ULTRAM) 02/09/2011 12:00:00 AM EDT Oral aborted Take by mouth [facility] Levonorgestrel 1.5 MG Oral Tablet Levono rgestrel 1.5 MG Oral Tablet (Plan B One-Step) Levonorgestrel 1.5 MG Oral Tablet (Plan B One-Step) 12:00:00 AM EDT Oral aborted Take by mouth [facility] Hydroxyzine Hydrochloride 25 MG Oral Tab let hydroxyzine HCl 25 mg tablet TAKE ONE TABLET BY MOUTH THREE TIMES A DAY NEEDED hydroxyzine HCl 25 mg tablet TAKE ONE TABLET BY MOUTH THREE TIMES A DAY NEEDED completed hydroxyzine hydrochloride 25 MG Oral Tablet [facility]) Mirtazapine 15 MG Oral Tablet Mirtazapine 15 Mg Tablet Tablet, 15 Mg Oral Mirtazapine 15 Mg Tablet Tablet, 15 Mg Oral 15 completed At Bedtime [facility] Risperidone 3 MG Oral Tablet risperidone 3 mg tablet TAKE ONE TABLET BY MOUTH AT BEDTIME risperidone 3 mg tablet TAKE ONE TABLET BY MOUTH AT BEDTIME completed risperidone 3 MG Oral Tablet [facility] ([facility]) Cephalexin 500 MG Oral Capsule cephalexi n 500 mg capsule TAKE ONE CAPSULE BY MOUTH THREE TIMES A DAY cephalexin 500 mg capsule TAKE ONE CAPSU LE BY MOUTH THREE TIMES A DAY completed ceph alexin 500 MG Oral Capsule [facility]) Risperidone 3 MG Oral Tablet [Risperdal] Risperidone (Risperdal) 3 Mg Tablet Tablet, 3 Mg Oral Risperidone (Risperdal) 3 Mg Tablet Tablet, 3 Mg Oral 3 completed At Bedtime [facility] buspirone hydrochloride 7.5 MG Oral Tabl et buspirone 7.5 mg tablet TAKE ONE TABLET BY MOUTH THREE TIMES A DAY buspirone 7.5 mg tablet TAKE ONE TABLET BY MOUTH THREE TIMES A DAY completed buspirone hydrochloride 7.5 MG Oral Tablet [facility]) Levothyroxine Sodium 0.05 MG Oral Tablet levothyroxine 50 mcg tablet TAKE ONE TABLET BY MOUTH EVERY DAY levothyroxine 50 mcg tablet TAKE ONE TAB LET BY MOUTH EVERY DAY completed levothyroxin e sodium 0.05 MG Oral Tablet [facility]) Divalproex Sodium 500 MG Delayed Release Oral Tablet divalproex 500 mg tablet,delayed release TAKE ONE TABLET BY MOUTH TWICE A DAY divalproex 500 mg tablet,delayed release TAKE ONE TABLET BY MOUTH TWICE A DAY completed divalproex sodium 500 MG Delayed Release Oral Tablet [facility]) Trazodone Hydrochloride 100 MG Oral Tabl et trazodone 100 mg tablet TAKE ONE TABLET BY MOUTH AT BEDTIME trazodone 100 mg tablet TAKE ONE TABLET BY MOUTH AT BEDTIME completed trazodone hydr ochloride 100 MG Oral Tablet [facility]) 24 HR paliperidone 3 MG Extended Release Oral Tablet paliperidone ER 3 mg tablet,extended release 24 hr TAKE ONE TABLET BY MOUTH AT BEDTIME FOR ANTIPSYCHOTIC paliperidone ER 3 mg tablet,extended rel ease 24 hr TAKE ONE TABLET BY MOUTH AT BEDTIME FOR ANTIPSYCHOTIC completed 24 HR paliperidone 3 MG Extended Release Oral Tablet [facility] ([facility]) Amitriptyline Hydrochloride 25 MG Oral T ablet amitriptyline 25 mg tablet TAKE ONE TABLET BY MOUTH AT BEDTIME amitriptyline 25 mg tablet TAKE ONE TABL ET BY MOUTH AT BEDTIME completed amitriptyline hydrochloride 25 MG Oral Tablet [facility] ([facility]) 24 HR paliperidone 6 MG Extended Release Oral Tablet paliperidone ER 6 mg tablet,extended release 24 hr TAKE ONE TABLET BY MOUTH EVERY MORNING paliperidone ER 6 mg tablet,extended release 24 hr TAKE ONE TABLET BY MOUTH EVERY MORNING completed 24 HR paliperidone 6 MG Extended Release Oral Tablet [facility] ([facility]) Buprenorphine 8 MG / Naloxone 2 MG Oral Strip [Suboxone] Buprenorphine Hcl/Naloxone Hcl (Suboxone 8 Mg-2 Mg Sl Film) 1 Each Film Film, 8 Mg Sublingual Buprenorphine Hcl/Naloxone Hcl (Suboxone 8 Mg-2 Mg Sl Film) 1 Each Film Film, 8 Mg Sublingual 8 completed Twice [facility]. 24 HR Oxybutynin chloride 5 MG Extended Release Oral Tablet oxybutynin chloride ER 5 mg tablet,extended release 24 hr TAKE ONE TABLET BY MOUTH EVERY DAY oxybutynin chloride ER 5 mg tablet,extended release 24 hr TAKE ONE TABLET BY MOUTH EVERY DAY completed 24 HR oxybutynin chloride 5 MG Extended Release Oral Tablet [facility] ([facility]) gabapentin 300 MG Oral Capsule gabapenti n 300 mg capsule TAKE ONE CAPSULE BY MOUTH TWICE A DAY gabapentin 300 mg capsule TAKE ONE CAPSU LE BY MOUTH TWICE A DAY completed gabapentin 300 M 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 ([facility]) olanzapine 10 MG Oral Tablet olanzapine 10 mg tablet TAKE ONE HALF 0.5 TABLET BY MOUTH EVERY IN THE MORNING AND ONE 1 TABLET AT BEDTIME olanzapine 10 mg tablet TAKE ONE HALF 0.5 TABLET BY MOUTH EVERY IN THE MORNING AND ONE 1 TABLET AT BEDTIME completed emy zapine 10 MG Oral Tablet [facility] ([facility]) Fluoxetine 10 MG Oral Capsule fluoxetine 10 mg capsule TAKE ONE CAPSULE BY MOUTH EVERY MORNING fluoxetine 10 mg capsule TAKE ONE CAPSULE BY MOUTH DILIA RY MORNING completed fluoxetine 10 M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 ([facility]) gabapentin 400 MG Oral Capsule gabapenti n 400 mg capsule TAKE ONE CAPSULE BY MOUTH FOUR TIMES A DAY gabapentin 400 mg capsule TAKE ONE CAPSU LE BY MOUTH FOUR TIMES A DAY completed gabapentin 400 M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 ([facility]) olanzapine 5 MG Disintegrating Oral Tabl et olanzapine 5 mg disintegrating tablet DISSOLVE ONE TABLET UNDER THE TONGUE EVERY DAY NEEDED FOR ANXIETY AGITATIONS olanzapine 5 mg disintegrating tablet DI SSOLVE ONE TABLET UNDER THE TONGUE EVERY DAY NEEDED FOR ANXIETY AGITATIONS completed olanzapine 5 MG Disintegrating Oral Tablet [facility]) Docusate Sodium 100 MG Oral Capsule [Col gopi] Docusate Sodium (Colace) 100 Mg Capsule Capsule, 100 Mg Oral Docusate Sodium (Colace) 100 Mg Capsule Capsule, 100 Mg Oral 100 completed Three Time s a Day as needed [facility] Divalproex Sodium 250 MG Delayed Release Oral Tablet divalproex 250 mg tablet,delayed release TAKE ONE TABLET BY MOUTH TWICE A DAY divalproex 250 mg tablet,delayed release TAKE ONE TABLET BY MOUTH TWICE A DAY completed divalproex sodium 250 MG Delayed Release Oral Tablet [facility]) topiramate 50 MG Oral Tablet [Topamax] Topamax 50 mg t ablet Topamax 50 mg tablet completed topiramate 50 MG Oral Tablet [Topamax] [facility] ([facility]) Sertraline 100 MG Oral Tablet sertraline 100 mg tablet TAKE ONE TABLET BY MOUTH EVERY DAY sertraline 100 mg tablet TAKE ONE TABLET BY MOUTH EVERY DAY completed sertraline 100 MG Oral Table t [facility]) gabapentin 600 MG Oral Tablet Gabapentin 600 Mg Tablet Tablet, 600 Mg Oral Gabapentin 600 Mg Tablet Tablet, 600 Mg Oral 600 completed Three Times a Day [facility] Hydroxyzine Hydrochloride 50 MG Oral Tab let hydroxyzine HCl 50 mg tablet TAKE ONE TABLET BY MOUTH THREE TIMES A DAY NEEDED hydroxyzine HCl 50 mg tablet TAKE ONE TABLET BY MOUTH THREE TIMES A DAY NEEDED completed hydroxyzine hydrochloride 50 MG Oral Tablet [facility]) Haloperidol 10 MG Oral Tablet haloperido l 10 mg tablet TAKE TWO TABLETS BY MOUTH TWICE A DAY NEEDED haloperidol 10 mg tablet TAKE TWO TABLET S BY MOUTH TWICE A DAY NEEDED completed halope ridol 10 MG Oral Tablet [facility] ([facility]) 24 HR Oxybutynin chloride 10 MG Extended Release Oral Tablet oxybutynin chloride ER 10 mg tablet,extended release 24 hr TAKE ONE TABLET BY MOUTH EVERY DAY oxybutynin chloride ER 10 mg tablet,extended release 24 hr TAKE ONE TABLET BY MOUTH EVERY DAY completed 24 HR oxybutynin chloride 10 MG Extended Release Oral Tablet [facility] ([facility]) Sertraline 50 MG Oral Tablet [Zoloft] Se rtraline Hcl 50 Mg Tablet Tablet, 50 Mg Oral Sertraline Hcl 50 Mg Tablet Tablet, 50 Mg Oral 50 completed At Bedtime [facility] Metronidazole 500 MG Oral Tablet metroni dazole 500 mg tablet 500 MG BY MOUTH AT BEDTIME FOR INFECTION metronidazole 500 mg tablet 500 MG BY MO UTH AT BEDTIME FOR INFECTION completed metronidazo le 500 MG Oral Tablet [facility] ([facility]) olanzapine 15 MG Oral Tablet Olanzapine 15 Mg Tablet T ablet, 15 Mg Oral Olanzapine 15 Mg Tablet Tablet, 15 Mg Oral 15 completed At Bedtime [facility] atomoxetine 10 MG Oral Capsule atomoxeti ne 10 mg capsule TAKE TWO CAPSULES BY MOUTH EVERY DAY atomoxetine 10 mg capsule TAKE TWO CAPSULES BY MOUTH E VERY DAY completed atomoxetine 10 M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 ([facility]) Docusate Sodium 100 MG Oral Capsule docu sate sodium 100 mg capsule TAKE TWO CAPSULES BY MOUTH EVERY DAY NEEDED docusate sodium 100 mg capsule TAKE TWO CAPSULES BY MOUTH EVERY DAY NEEDED completed docusate sodium 100 M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 ([facility]) Haloperidol 2 MG Oral Tablet haloperidol 2 mg tablet TAKE TWO TABLETS BY MOUTH THREE TIMES A DAY 8AM 1PM. AND 9PM haloperidol 2 mg tablet TAKE TWO TABLETS BY MOUTH THREE TIMES A DAY 8AM 1PM. AND 9PM completed haloperidol 2 MG Oral Tablet [facility] ([facility]) benztropine mesylate 1 MG Oral Tablet be nztropine 1 mg tablet TAKE ONE TABLET BY MOUTH TWICE A DAY NEEDED benztropine 1 mg tablet TAKE ONE TABLET BY MOUTH TWICE A DAY NEEDED completed benztropine mesylate 1 MG Oral Tablet [facility]) Loratadine 10 MG Oral Tablet loratadine 10 mg tablet TAKE ONE TABLET BY MOUTH EVERY DAY loratadine 10 mg tablet TAKE ONE TABLET BY MOUTH EVERY DAY completed loratadine 10 MG Oral Tablet [facility] ([facility]) atomoxetine 40 MG Oral Capsule atomoxeti ne 40 mg capsule TAKE ONE CAPSULE BY MOUTH EVERY DAY atomoxetine 40 mg capsule TAKE ONE CAPSULE BY MOUTH EVERY DA Y completed atomoxetine 40 MG Oral Capsule [facility] ([facility]) Risperidone 2 MG Oral Tablet risperidone 2 mg tablet TAKE ONE TABLET BY MOUTH AT BEDTIME risperidone 2 mg tablet TAKE ONE TABLET BY MOUTH AT BEDTIME completed risperidone 2 MG Oral Tablet [facility] ([facility]) Mirtazapine 15 MG Oral Tablet mirtazapine 15 mg tablet christine zapine 15 mg tablet completed mirtazapine 15 MG Oral Tablet [facility] ([facility]) doxycycline hyclate 100 MG Oral Tablet d oxycycline hyclate 100 mg tablet TAKE ONE TABLET BY MOUTH TWICE A DAY doxycycline hyclate 100 mg tablet TAKE O NE TABLET BY MOUTH TWICE A DAY completed doxycycline hyclate 100 MG Oral Tablet [facility] ([facility]) olanzapine 5 MG Oral Tablet olanzapine 5 mg tablet TAKE ONE TABLET BY MOUTH EVERY MORNING AT 8AM olanzapine 5 mg tablet TAKE ONE TABLET B Y MOUTH EVERY MORNING AT 8AM completed olanza pine 5 MG Oral Tablet [facility] ([facility]) Prazosin 1 MG Oral Capsule prazosin 1 mg capsule TAKE ONE CAPSULE BY MOUTH AT BEDTIME prazosin 1 mg capsule TAKE ONE CAPSULE BY MOUTH AT BEDTIME completed prazosin 1 MG Oral Capsule ATH A ([facility]) Sertraline 25 MG Oral Tablet sertraline 25 mg tablet TAKE ONE TABLET BY MOUTH EVERY MORNING sertraline 25 mg tablet TAKE ONE TABLET BY MOUTH EVERY MORNI NG completed sertraline 25 MG Oral Tablet [facility] ([facility]) Naproxen 500 MG Oral Tablet naproxen 500 mg tablet TAKE ONE TABLET BY MOUTH TWICE A DAY AT 6AM AND 6PM naproxen 500 mg tablet TAKE ONE TABLET B Y MOUTH TWICE A DAY AT 6AM AND 6PM completed naproxen 500 MG Oral Tablet [facility] ([facility]) Fluoxetine 10 MG Oral Capsule FLUoxetine HCl 10 MG Ora l Capsule (PROZAC) FLUoxetine HCl 10 MG Oral Capsule (PROZAC) 10 mg Oral aborted Take 10 mg by mouth every morning [facility] Haloperidol 2 MG Oral Tablet Haloperidol 2 MG Oral Tab let (HALDOL) Haloperidol 2 MG Oral Tablet (HALDOL) 6 mg Oral aborted Take 6 mg by mouth Two Times Daily [facility] Trazodone Hydrochloride 50 MG Oral Table t traZODone HCl 50 MG Oral Tablet (DESYREL) traZODone HCl 50 MG Oral Tablet (DESYREL) 50 mg Oral aborted Take 50 mg by mouth nightly as needed f or Sleep [facility] Docusate Sodium 100 MG Oral Capsule Docu sate Sodium 100 MG Oral Capsule (COLACE) Docusate Sodium 100 MG Oral Capsule (COLACE) 100 mg Oral aborted Take 100 mg by mouth daily [facility] Buprenorphine 2 MG / Naloxone 0.5 MG Ora l Strip Buprenorphine HCl-Naloxone HCl 2-0.5 MG Sublingual Film (Suboxone) Buprenorphine HCl-Naloxone HCl 2-0.5 MG Sublingual Film (Suboxone) Sublingual aborted Place 2 mg of buprenorphine under the tongue nightly [facility] buspirone hydrochloride 10 MG Oral Table t busPIRone HCl 10 MG Oral Tablet (BUSPAR) busPIRone HCl 10 MG Oral Tablet (BUSPAR) 10 mg Oral aborted Take 10 mg by mouth Two Times Daily [facility] atomoxetine 60 MG Oral Capsule Atomoxetine HCl 60 MG O ral Capsule (STRATTERA) Atomoxetine HCl 60 MG Oral Capsule (STRATTERA) 60 mg Oral aborted Take 60 mg by mouth daily [facility] topiramate 100 MG Oral Tablet Topiramate 100 MG Oral T ablet (TOPAMAX) Topiramate 100 MG Oral Tablet (TOPAMAX) 100 mg Oral aborted Take 100 mg by mouth daily [facility] topiramate 25 MG Oral Tablet topiramate 25 mg tablet TAKE TWO TABLETS BY MOUTH TWICE A DAY FOR HEADACHE topiramate 25 mg tablet TAKE TWO TABLETS BY MOUTH TWICE A DAY FOR HEADACHE completed to piramate 25 MG Oral Tablet [facility] ([facility]) Prazosin 2 MG Oral Capsule prazosin 2 mg capsule TAKE ONE CAPSULE BY MOUTH AT BEDTIME prazosin 2 mg capsule TAKE ONE CAPSULE BY MOUTH AT BEDTIME completed prazosin 2 MG Oral Capsule ATHEN A ([facility]) Buprenorphine 8 MG / Naloxone 2 MG Subli ngual Tablet Buprenorphine HCl-Naloxone HCl 8-2 MG Sublingual Tablet Sublingual (SUBOXONE) Buprenorphine HCl-Naloxone HCl 8-2 MG Sublingual Tablet Sublingual (SUBOXONE) Subli ngual aborted Place under the tongue Two Times Daily U [facility] benztropine mesylate 1 MG Oral Tablet Be nztropine Mesylate 1 MG Oral Tablet (COGENTIN) Benztropine Mesylate 1 MG Oral Tablet (COGENTIN) 1 mg Oral aborted Take 1 mg by mouth Two times galilea ly as needed As directed [facility] aripiprazole 2 MG Oral Tablet aripiprazo le 2 mg tablet TAKE ONE TABLET BY MOUTH EVERY MORNING aripiprazole 2 mg tablet TAKE ONE TABLET BY MOUTH EVERY MORN ING completed aripiprazole 2 MG Oral Tablet SUSI ([facility]) 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 MG Oral Capsule gabapenti n 100 mg capsule TAKE ONE CAPSULE BY MOUTH TWICE A DAY 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 mg capsule TAKE ONE CAPSU LE BY MOUTH TWICE A DAY completed 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 M 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 ([facility]) Prazosin 2 MG Oral Capsule [Minipress] P razosin Hcl (Minipress) 2 Mg Capsule Capsule, 2 Mg Oral Prazosin Hcl (Minipress) 2 Mg Capsule Capsule, 2 Mg Oral 2 [facility] Sulf[facility] 800 MG / Trimethoprim 1 60 MG Oral Tablet sulfamethoxazole 800 mg-trimethoprim 160 mg tablet TAKE ONE TABLET BY MOUTH TWICE A DAY sulfamethoxazole 800 mg-trimethoprim 160 mg tablet TAKE ONE TABLET BY MOUTH TWICE A DAY completed samuel lfamethoxazole 800 MG / trimethoprim 160 MG Oral Tablet SUSI ([facility]) topiramate 50 MG Oral Tablet topiramate 50 mg tablet TAKE ONE TABLET BY MOUTH TWICE A DAY topiramate 50 mg tablet TAKE ONE TABLET BY MOUTH TWICE A DAY completed topiramate 50 MG Ora l Tablet HESTER ([facility]) Sertraline 50 MG Oral Tablet sertraline 50 mg tablet TAKE ONE TABLET BY MOUTH AT BEDTIME sertraline 50 mg tablet TAKE ONE TABLET BY MOUTH AT BEDTIME completed sertraline 50 MG Oral Tablet HESTER ([facility]) Insurance Providers Payer name Policy type / Coverage type Policy ID Covered alliance party ID Covered alliance party's relationship to bergeron Policy Berger[place] Plan Information MEDICAID [id number] SELF [id number] [facility] [id number] Self [id number] Medicaid S [id number] S [id number] Managed Care - Community Plan [facility] P [id number] S [id number] Medicaid P [id number] S [id number] Medicaid P [id number] S [id number] Managed Care - [facility] Community Plan P [id number] S [id number] Managed Care - [facility] Community Plan P [id number] S [id number] [place] I [id number] Self [id number] MEDICAID [id number] SP [id number] [facility] DEPT [id number] SP [id number] UNHC COMMUNITY PLAN MCDHMO [id number] SP [id number] UNHC COMMUNITY PLAN MCDHMO [id number] SP [id number] BCBS YARON HMO [id number] SP [id number] [facility] [id number] SP [id number] HMO BLUE [id number] SP [id number] Managed Care - [facility] Community Plan P [id number] S [id number] [place] 306/806 [id number] SP [id number] Managed Care BCBS P [id number] S [id number] 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 [id number] SP [id number] UNHC COMMUNITY PLAN MCDHMO [id number] SP [id number] MEDICAID [id number] SP [id number] 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 [facility] [id number] 18 [id number] [place] [id number] SP [id number] [place] [id number] SP [id number] [place] [id number] SP [id number] CCS MEDICAID [id number] SP [id number] X MEDICAID [id number] Unemployed [id number]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 Supporting Document(s) HCV RNA Detect/Quant,S result Normal (applies t o non-numeric results) [facility] ID Date Data Source [id number] 03/07/2021 08:09:[address] [facility] Name Value Range Interpretation Code Description Data Kassy rce(s) Supporting Document(s) Hepatitis C Antibody Screen Negative Normal (appli es to non-numeric results) [facility] Supplemental testing for HCV RNA is orde red to rule out active HCV infection. Whsrqv-ld-isobol ratio is >=8.00. Test Performed by: [place] [address] Farm [employer]eter: Eris Mack M.D. Ph.D.; CLIA# [id number] THIS IS A STATE REPORTABLE COMMUNICABLE DISEASE. Hep C Virus Qnt (Rfx'd) [id number] IU/mL Undetected Normal ( applies to non-numeric results) [facility] Result in log IU/mL is 5.59. ---------ADDITIONAL INFORMATION The quantification range of this assay is 15 to 100,000,000 IU/mL (1.18 log to 8.00 log IU/mL). Testing was performed using the leda HCV test ([employer] with the leda [employer] System. Test Performed by: [place] [address] Farm [employer]eter: Eris Mack M.D. Ph.D.; CLIA# [id number] THIS IS A STATE REPORTABLE COMMUNICABLE DISEASE. ID Date Data Source [id number] 01/28/2021 12:58:[address] [facility] Name Value Range Interpretation Code Description Data Kassy rce(s) Supporting Document(s) HIV 1/2 Ab p24 Ag Screen Nonreactive Normal (applies to non-numeric results) [facility] ID Date Data Source [id number] 01/28/2021 12:27:[address] [facility] Name Value Range Interpretation Code Description Data Kassy rce(s) Supporting Document(s) Magnesium 1.80-2.40 Normal (applies to non-numeric resul ts) [facility] ID Date Data Source [id number] 01/28/2021 12:27:[address] [facility] Name Value Range Interpretation Code Description Data Kassy rce(s) Supporting Document(s) Sodium 141 mmol/L 137-145 Normal (applies to non-numeric resul ts) [facility] Potassium 3.5-5.1 Normal (applies to non-numeric resul ts) [facility] Chloride 108 mmol/L 98-112 Normal (applies to non-numeric resul ts) [facility] Carbon Dioxide CO2 22.0-33.0 Normal (applies to non-numer ic results) [facility] Anion Gap 4.0-11.0 Normal (applies to non-numeric resul ts) [facility] BUN 15 mg/dL 7-17 Normal (applies to non-numeric resul ts) [facility] Creatinine 0.70-1.20 Below low normal [facility] GFR >60 Normal (applies to non-numeric results) [facility] Result based on MDRD formula. Glucose Level 72 mg/dL 74-99 Below low normal [facility] The reference range is only applicable w hen fasting. Calcium-Uncorrected 8.4-10.2 Normal (applies to non-nume claudia results) [facility] Corrected Calcium 8.4-10.2 Normal (applies to non-numeri c results) [facility] Bilirubin,Total 0.2-1.3 Normal (applies to non-numeric results) [facility] Bilirubin,Direct 0.0-0.3 Normal (applies to non-numeric results) [facility] SGOT(AST) 71 U/L 14-36 Above high normal [facility] SGPT(ALT) 68 U/L 9-52 Above high normal [facility] Alkaline Phosphatase 94 U/L 38-126 Normal (applies to non-num clementine results) [facility] can increase Alkaline Phosp le vels up to 2 times the normal adult value. Normal values for children and adolescents are 2 to 3 times the normal adult value. CPK 31 U/L 26-192 Normal (applies to non-numeric resul ts) [facility] Total Protein 6.3-8.2 Normal (applies to non-numeric re sults) [facility] Albumin 3.5-5.0 Normal (applies to non-numeric resul ts) [facility] Thyroid Stimulate Hormone TSH 0.358-3.740 No rmal (applies to non-numeric results) [facility] ID Date Data Source [id number] 01/28/2021 12:27:[address] [facility] Name Value Range Interpretation Code Description Data Kassy rce(s) Supporting Document(s) C-Reactive Protein,Wide Range <3.00 Normal (applies t o non-numeric results) [facility] ID Date Data Source [id number] 01/28/2021 11:43:00 AM EDT [facility] Name Value Range Interpretation Code Description Data Kassy rce(s) Supporting Document(s) White Blood Count 4.8-10.8 Normal (applies to non-numeri c results) [facility] Red Blood Count 3.68-5.22 Normal (applies to non-numeric results) [facility] Hemoglobin 11.2-15.7 Normal (applies to non-numeric resul ts) [facility] Hematocrit 34.1-44.9 Normal (applies to non-numeric resul ts) [facility] Mean Corpuscular Volume 81-99 Normal (applies to non- numeric results) [facility] Mean Corpuscular Hemoglobin 27.0-33.0 Normal (appli es to non-numeric results) [facility] Mean Corpuscular HGB Conc 32.0-36.0 Normal (applies to no n-numeric results) [facility] Red Cell Distribution Width 11.5-14.5 Normal (appli es to non-numeric results) [facility] Platelet Count 200 X10 3/uL 130-450 Normal (applies to non-numeric results) [facility] Mean Platelet Volume 9.5-12.7 Normal (applies to non-num clementine results) [facility] Imm Grans% (AUTO) 0 % 0-2 Normal (applies to non-numeri c results) [facility] Neutrophils % (AUTO) 33 % 40-75 Below low normal [facility] Lymphocytes % (AUTO) 54 % 21-46 Above high normal [facility] Monocytes % (AUTO) 8 % 5-12 Normal (applies to non-numer ic results) [facility] Eosinophils % (AUTO) 4 % 1-5 Normal (applies to non-num clementine results) [facility] Basophils % (AUTO) 1 % 0-1 Normal (applies to non-numer ic results) [facility] Imm Grans# (AUTO) 0.0-0.5 Normal (applies to non-numeri c results) [facility] Neutrophils # (AUTO) 1.5-8.1 Normal (applies to non-num clementine results) [facility] Lymphocytes # (AUTO) 1.0-3.1 Normal (applies to non-num clementine results) [facility] Monocytes # (AUTO) 0.2-1.3 Normal (applies to non-numer ic results) [facility] Eosinophils# (AUTO) 0.0-0.5 Normal (applies to non-nume claudia results) [facility] Basophils # (AUTO) 0.0-0.1 Normal (applies to non-numer ic results) [facility] ID Date Data Source [id number] 01/28/2021 12:58:[address] [facility] Name Value Range Interpretation Code Description Data Kassy rce(s) Supporting Document(s) Hep Bs Ag Result T-Test Nonreactive Normal (applies to non -numeric results) [facility] ID Date Data Source [id number] 01/28/2021 12:58:[address] [facility] Name Value Range Interpretation Code Description Data Kassy rce(s) Supporting Document(s) Vitamin D,Total (25OH) 30.0-100.0 Below low normal [facility] Reference Range: <10 ng/mL: Deficien t 10-30 ng/mL: Insufficient 30-100 ng/mL: Sufficient >100 ng/mL: Toxicity possible ID Date Data Source [id number] 01/28/2021 12:58:[address] [facility] Name Value Range Interpretation Code Description Data Kassy rce(s) Supporting Document(s) HAVM Nonreactive Normal (applies to non-numeric resu lts) [facility] ID Date Data Source [id number] 01/28/2021 12:58:[address] [facility] Name Value Range Interpretation Code Description Data Kassy rce(s) Supporting Document(s) Syphilis Serology Nonreactive Normal (applies to non-numer ic results) [facility] ID Date Data Source [id number] 02/05/2021 11:02:[address] [facility] Name Value Range Interpretation Code Description Data Kassy rce(s) Supporting Document(s) Cannabinoids Confirm,Ur result . Very abnor mal (applies to non-numeric units [facility] Carboxy THC GC/MS Conf 106 ng/mL Cutoff=10 01 Performed at: [address] [id number] Farm Marketer: Ban Gaxiola MD, Phone: [phone] ID Date Data Source [id number] 01/27/2021 05:02:[address] [facility] Name Value Range Interpretation Code Description Data Kassy rce(s) Supporting Document(s) Color,Urine Yellow [facility] pital Clarity,Urine Clear [facility] ospital Specific [place],Urine 1.001-1.030 Normal (applies to non- numeric results) [facility] PH,Urine 5.0-8.0 Normal (applies to non-numeric resul ts) [facility] Protein,Urine Negative Normal (applies to non-numeric re sults) [facility] Glucose,Urine (UA) Negative Normal (applies to non-numer ic results) [facility] Ketones,Urine Negative [facility] ospital Blood,Urine Negative Normal (applies to non-numeric resu lts) [facility] Bilirubin,Urine Negative [facility] Positive Bilirubin is no longer doublech ecked. Bilirubin may be elevated due to urine color interference. Urobilinogen,Urine Norm 0.2-1 Normal (applies to non-numer ic results) [facility] Leukocyte Esterase,Urine Negative [facility] Nitrite,Urine Negative Normal (applies to non-numeric re sults) [facility] ID Date Data Source [id number] 01/27/2021 05:02:[address] [facility] Name Value Range Interpretation Code Description Data Kassy rce(s) Supporting Document(s) WBC,URINE 0-10 Normal (applies to non-numeric resul ts) [facility] C[facility],Ur None Seen Normal (applies to non-numeric results) [facility] Bacteria,Urine None Seen [facility] Epithelial Cell,Ur None-Few Normal (applies to non-numer ic results) [facility] Crystals, Urine None Seen [facility] ID Date Data Source [id number] 01/27/2021 05:02:[address] [facility] Name Value Range Interpretation Code Description Data Kassy rce(s) Supporting Document(s) Urine HCG Negative Normal (applies to non-numeric resul ts) [facility] ID Date Data Source [id number] 01/27/2021 03:52:00 PM EDT [facility] Name Value Range Interpretation Code Description Data Kassy rce(s) Supporting Document(s) Opiate Screen,Urine Negative Normal (applies to non-nume claudia results) [facility] Amphetamine Screen,Urine Negative [facility] Benzodiazepines Scrn,Ur result Negative N ormal (applies to non-numeric results) [facility] Cocaine Screen,Urine Negative Normal (applies to non-num clementine results) [facility] Methadone Screen,Urine Negative Normal (applies to non-n umeric results) [facility] Cannabinoid Screen, Ur Negative [facility] Therapeutic Drug Ranges for Emergency an d Rehabilitation Threshold Levels (ng/mL) Cocaine 300 Opiates 300 Cannabinoids 50 Barbiturates 200 Benzodiazepine 200 Methadone 300 Amphetamines 1000 All positive findings are presumptive and unconfirmed. Confirmation of positive results are performed only at request of provider. Unconfirmed results must not be used for non-medical purposes (i.e. pre-employment and legal purposes) ID Date Data Source [id number] 01/27/2021 02:00:00 PM EDT [facility] Name Value Range Interpretation Code Description Data Kassy rce(s) Supporting Document(s) Respiratory specimen severe acute respir atory syndrome coronavirus 2 (SARS-CoV-2) RNA Negative (qualifier value) [facility] This lab was ordered by [facility] lola and reported by [facility]. ID Date Data Source [id number] 01/27/2021 02:35:[address] [facility] Negative results should be treated [...] Certificate of Accreditation. Factsheets for healthcare providers: https://www.fda.gov/media/170572/download Factsheets for patients: https://www.fda.gov/media/652408/download The ID NOW Instrument is a rapid molecular in vitro diagnostic test utilizing an isothermal nucleic acid amplification technology intended for the qualitative detection of nucleic acid from the SARS-CoV-2 viral RNA. THIS IS A STATE REPORTABLE COMMUNICABLE DISEASE. Manual entry verified by Jessika Villareal 01/27/21 1435 Test Performed By: [facility] [address] [place] [address] Director: Trinidad Zarco MD Name Value Range Interpretation Code Description Data Kassy rce(s) Supporting Document(s) ID Date Data Source [id number] 01/18/2021 01:26:00 PM EDT [facility]. DISCHARGE SUMMARY, ADULTDischarge Diagno sis1. Opiate abuse, continuous2. Hypotension, chronicPreceding HistoryPreceding history / Reason for avfxsqueq22-piop-ycm female who presented today for getting detox done. She usesheroin 1 bundle per day, last use was at 6 a.m. today, Sylvie 1-2 gram aday, last use was 1 week ago, meth 1-2 gram daily and with last use 2days ago, cannabis daily a couple of buffy. [facility] the patient took multiple pills of [...] schizoaffecivedisorder, bipolar, anxiety [facility]. Patient attempted [...] she can go to inpatient rehab at [facility] on 01/22. Marilynn entendorsed that she [...] Provider, in 1 week, Inpatient rehab at [facility] Care Provider:NONENursing Appointments ScheduledOther Follow up with:PT IS TO HAVE INPT REHAB AT [facility] 01/22/21KRISITN COUNCELOR TO CALL [facility] TO PROVIDE ADESIGNATED TIME FOR ARRIVALMEDICATIONSMedication ReconciledBuprenorphine HCl/Naloxone HCl(Suboxone 8 MG-2 MG Sl Film) 1 EACH FILM 8 MG SL BID 5 Days #10 FILM,Ref 0Prescribed by Kena Chowdhury, on 01/18/21Last Action: No Recorded ActionDocusate Sodium(Colace) 100 MG CAPSULE 200 MG PO DAILY PRN 5 Days #10 TAB, Ref 0Prescribed by Kena Chowdhury, DO on 01/18/21Last Action: No Recorded ActionDoxycycline Gewhjnq386 MG TABLET 100 MG PO BID 10 Days #20 TAB, Ref 0Prescribed by Kena Chowdhury, on 01/18/21Last Action: No Recorded ZrqlesVpfvfutjtj181 MG TABLET 600 MG PO TID 5 Days #15 TAB, Ref 0Prescribed by Kena Chowdhury DO on 01/18/21Last Action: No Recorded UkguzuTdxyuyddiwi36 MG TABLET 15 MG PO HS 5 Days #5 TAB, Ref 0Prescribed by Kena Chowdhury, on 01/18/21Last Action: No Recorded ActionMulti-Vit/Mineral(Multivitamin Tablet) 1 TAB TAB 1 TAB PO DAILY 5 Days #5 TAB, Ref 0Prescribed by Kena Chowdhury, on 01/18/21Last Action: No Recorded XoxgdjRtjxgofyat78 MG TABLET 15 MG PO HS 5 [...] is following - inpatient bed available at [facility] on 01/22.2. Gabapentin overdose. Poison control recommended holding Gabapentin andmonitoring for 6 hours on admission. Gabapentin was resumed prior todischarge.3. Anxiety/depression/schizoaffective disorder/bipolar disorder. Resumehome medications.4. Tobacco abuse. Patient counseled on admission. Nicotine patch5. Open sore in antecubital region. Treated with Keflex and mckeon sitionedto Doxycycline at discharge for 10 daysCode Status: Full codeGI prophylaxis: ProtonixVTE prophylaxis: Early ambulationDispo: Inpatient bed available at [facility] on 01/22. Stable for discharge andwill stay with her stepdad.Time spent60 MinutesDictated on 01/18/21 1326 by Kena Chowdhury DOTranscribed on 01/18/21 1326 by Kena Chowdhury, DOSign by Kena Chowdhury, on 01/18/21 1404Sign by: Kena Chowdhury DO Name Value Range Interpretation Code Description Data Kassy rce(s) Supporting Document(s) ID Date Data Source [id number] 01/17/2021 02:41:00 PM EDT [employer]. Counselor Progress NotePatient NoteCOUNS NADEENOR SPOKE WITH DR ABOUT CARE AFTER BEING [...] 01/22/21 WHEN HER BED IS OPEN AT [facility] RE[facility]. ALSO COUNSELOR SET UPTANSPORTATION FOR PATIENT SHE COULD NOT GET A RIDE HOME. SO HER RIDEWILL BE HERE TOMORROW AT 1:00 PM AFTER SHE IS DISCHARGED.Dictated on 01/17/21 1441 by Cherrie,TriciaTranscribed on 01/17/21 1441 by Cherrie,TriciaSign by Cherrie,Nuzhat on 01/17/21 1446Sign by: Nuzhat Grier Name Value Range Interpretation Code Description Data Kassy rce(s) Supporting Document(s) ID Date Data Source [id number] 01/17/2021 11:27:00 AM EDT [employer]. Counselor Progress NotePatient NoteDR. Katherine ELVIS IN TO TALK TO COUNSELOR ABOUT PATIENT AND HER BEING DISCHARGEDAND HER AFTER PLANS. COUNSELOR CALLED [facility] AND TALKED TOA TWISTER DOFFER ABOUT PATIENT GOING THERE ONLY TO FIND OUT THAT IT'S A DETOXCENTER WELL. COUNSELOR HAD GONE TO TALK TO THE DR ABOUT [facility] TO LET HIM KNOW WHAT SHE HAD FOUND OUT. TOLD COUNSELOR THAT EVIE TALKED TO PATIENT ABOUT HER STAYING WITH HER STEPDAD UNTIL HER BEDWAS READY AT [facility] ON 01/22[facility]21. SO COUNSELOR WENT TO [...] rce(s) Supporting Document(s) ID Date Data Source [id number] 01/17/2021 10:19:00 AM EDT [employer]. Counselor Progress NotePatient NoteCOUNS ELOR WENT TO [...] rce(s) Supporting Document(s) ID Date Data Source [id number] 01/17/2021 06:53:00 AM EDT [employer] Provider Short NotePatient NoteCalled by RN [...] rce(s) Supporting Document(s) ID Date Data Source [id number] 01/16/2021 03:24:00 PM EDT [employer] Software. Counselor Progress NotePatient NoteCOTASHA DE JESUS WENT [...] rce(s) Supporting Document(s) ID Date Data Source [id number] 01/16/2021 02:08:00 PM EDT [employer] Counselor Progress NotePatient NoteCOUNS LIZA WENT [...] rce(s) Supporting Document(s) ID Date Data Source [id number] 01/16/2021 02:04:00 PM EDT [employer]. Counselor Progress NotePatient NoteCOUNS LIZA WENT AND CHECKED IN ON PATIENT THIS MORNING, SHE WAS UP BUTLAYING DOWN. COUSNELOR ASKED HOW SHE WAS DOING SHE SAID SHE WAS VERYTIRED. COUNSELOR ASKED HER WHY, WAS SHE NOT SLEEPING WELL? PATIENTREPLIED THAT SHE WASN'T SLEEPING GOOD AT NIGHT. SO COUNSELOR LEFT TO [facility] GET SOME REST.Dictated on 01/16/21 1404 by Kyra GrieriaTranscribed on 01/16/21 1404 by Kyra GrieriaSign by Nuzhat Grier on 01/16/21 1408Sign by: Nuzhat Grier Name Value Range Interpretation Code Description Data Kassy rce(s) Supporting Document(s) ID Date Data Source [id number] 01/15/2021 04:16:00 PM EDT [facility] [employer] Counselor Progress NotePatient NoteCOUNS ELLOTTIE BLAS, MS, CASAC-T, ENTERED THE PATIENT'S ROOM. [...] by Zach Blas by Sydnie Blas on 01/15/218Sign by: Sydnie Blas Name Value Range Interpretation Code Description Data Kassy rce(s) Supporting Document(s) ID Date Data Source [id number] 01/15/2021 01:59:00 PM EDT [facility] [employer] Counselor Progress NotePatient NoteCHEYENNE HESS BARNETT, CONFIRMED A 4 WEEK WAIT LIST FOR [facility].Dictated on 01/15/21 1359 by Sydnie BlasTranscribed on 01/15/21 1359 by Zach Blas by Sydnie Blas on 01/15/21 1400Sign by: Sydnie Blas Name Value Range Interpretation Code Description Data Kassy rce(s) Supporting Document(s) ID Date Data Source [id number] 01/15/2021 01:36:00 PM EDT [employer] Counselor Progress NotePatient NoteCONFI RMED BED AT [facility] - ADMISSION TIME PENDING.Dictated on 01/15/21 1336 by Sydnie BlasTranscribed on 01/15/21 1336 by Sydnie BlasSign by Sydnie Blas on 01/15/21 1337Sign by: Sydnie Blas Name Value Range Interpretation Code Description Data Kassy rce(s) Supporting Document(s) ID Date Data Source [id number] 01/14/2021 03:22:00 PM EDT [employer] Counselor Progress NotePatient NoteCOTASHA DE JESUS HAD WENT TO SEE IF PATIENT WAS UP BUT SHE WAS VERY DEEP INSLEEP, COUNSELOR WENT TO NURSE AND ASKED IF SHE HAD BEEN GIVENMEDICATION. NURSE HAD TOLD COUNSELOR YES AND ALSO FOR HER ANXIETY ASWELL. SO SHE WAS SLEEPING STILL AND VERY HEAVY. SO COUNSELOR WAS NOT ABLETO DO HER EVALUATION FOR TOADY.Dictated on 01/14/21 1522 by Cherrie,TriciaTranscribed on 01/14/21 1522 by Cherrie,TriciaSign by Cherrie,Nuzhat on 01/14/21 1525Sign by: Nuzhat Grier Name Value Range Interpretation Code Description Data Kassy rce(s) Supporting Document(s) ID Date Data Source [id number] 01/14/2021 03:00:00 PM EDT [facility] [employer] Counselor Progress NotePatient NoteCOTASHA DE JESUS WENT TO SEE IF PATIENT WAS UP TO DO EVALUATION AND SHE WASSLEEPING.Dictated on 01/14/21 1500 by Cherrie,TriciaTranscribed on 01/14/21 1500 by Cherrie,TriciaSign by Cherrie,Nuhzat on 01/14/21 1501Sign by: Nuzhat Grier Name Value Range Interpretation Code Description Data Kassy rce(s) Supporting Document(s) ID Date Data Source [id number] 01/14/2021 01:44:00 PM EDT [employer]. Counselor Progress NotePatient Dominic DE JESUS WENT INTO PATIENTS ROOM AT 12:30 TO DO THE EVALUATION, THEPATIENT WAS SLEEPING SO COUNSELOR HAD LEFT THE PATIENT TO SLEEP.COUNSELOR CAME BACK TO HER OFFICE AND REPORTED PATIENT STATUS TO ALFREDA.NURSING TWISTER DOFFER, SABINE PECK, WOKE THE PATIENT AND REQUESTED [...] Cherrie,TriciaTranscribed on 01/14/21 1344 by CherrieTriciaSign by CherrieNuzhat on 01/14/21 1355Sign by: Nuzhat Grier Name Value Range Interpretation Code Description Data Kassy rce(s) Supporting Document(s) ID Date Data Source [id number] 01/14/2021 09:26:00 AM EDT [employer] Counselor Progress NotePatient Dominic DE JESUS ALONG WITH [facility] WENT INTO PATIENTS ROOM AND ASKED HOW SHE WASDOING. PATIENT RESPONDED SHE WAS DOING OK. COUNSELOR INFORMED PATIENTTHAT SHE WAS HERE IF SHE NEEDED HER TO TALK OR ANYTHING.Dictated on 01/14/21 0926 by Cherrie,TriciaTranscribed on 01/14/21 0926 by Cherrie,TriciaSign by Cherrie,Nuzhat on 01/14/21 0933Sign by: CherrieNuzhat Name Value Range Interpretation Code Description Data Kassy rce(s) Supporting Document(s) ID Date Data Source [id number] 01/13/2021 04:10:00 PM EDT [facility] Name Value Range Interpretation Code Description Data Kassy rce(s) Supporting Document(s) SARS-CoV-2 (COVID-19) RNA [Presence] in Respiratory specimen by IRIS with probe detection Negative; No COVID-2 RNA detected by PCR. [place] This lab was ordered by [facility] and reported by . ID Date Data Source [id number] 12/08/2020 03:19:00 PM EDT [facility]) Name Value Range Interpretation Code Description Data Kassy rce(s) Supporting Document(s) influenza A amplification negative negative Influenza a Amplification [facility]) influenza B amplification negative negative Influenza B Amplification [facility]) RSV amplification negative negative RSV Amplification [facility]) sars covid-19 amplification negative negative Sars Cov id-19 Amplification [facility]) ID Date Data Source [id number] 12/08/2020 03:19:00 PM EDT [facility] Name Value Range Interpretation Code Description Data Kassy rce(s) Supporting Document(s) SARS coronavirus 2 RNA [Presence] in Res piratory specimen by IRIS with probe detection NEGATIVE [place] This lab was ordered by [facility] a nd reported by [facility]. ID Date Data Source [id number] 12/08/2020 09:19:00 AM EDT [facility]) Name Value Range Interpretation Code Description Data Kassy rce(s) Supporting Document(s) thyroid stimulating hormone 1.050 uIU/mL 0.358-3.740 Thyroid Stimulating Hormone [facility]) ID Date Data Source [id number] 12/08/2020 09:19:00 AM EDT [facility]) Name Value Range Interpretation Code Description Data Kassy rce(s) Supporting Document(s) acetaminophen level < 2.0 10.0-30.0 Below low normal Acetaminop hen Level [facility]) ID Date Data Source [id number] 12/08/2020 09:19:00 AM EDT [facility]) Name Value Range Interpretation Code Description Data Kassy rce(s) Supporting Document(s) salicylate level 2.7 mg/dL 5.0-30.0 Below low normal Salicylate Le jose [facility]USI ([facility]) ID Date Data Source [id number] 12/08/2020 09:19:00 AM EDT [facility] ([facility]) Name Value Range Interpretation Code Description Data Kassy rce(s) Supporting Document(s) ethyl alcohol (ethanol) < 0.003 0.000-0.010 Ethyl Alcoh ol (Ethanol) [facility] ([facility]) ID Date Data Source [id number] 12/08/2020 09:19:00 AM EDT [facility]) Name Value Range Interpretation Code Description Data Kassy rce(s) Supporting Document(s) glucose, fasting 93 mg/dL 70-100 Glucose, Fasting AT [facility]) blood urea nitrogen 10 mg/dL 7-18 Blood Urea Nitro gen [facility] ([facility]) creatinine for GFR 0.61 mg/dL 0.55-1.30 Creatinine for GF R [facility] ([facility]) glomerular filtration rate > 60.0 >60 Glomerula r Filtration Rate [facility] ([facility]) sodium level 140 mEq/L 136-145 Sodium Level [facility] (No [facility]) chloride level 111 mEq/L 98-107 Above high normal Chloride Level [facility] ([facility]) potassium serum 4.1 mEq/L 3.5-5.1 Potassium Serum ATH NA ([facility]) anion gap 7 mEq/L 8-16 Below low normal Anion Gap [facility] ( [facility]) calcium level 9.9 mg/dL 8.5-10.1 Calcium Level [facility] ( [facility]) carbon dioxide level 22 mEq/L 21-32 Carbon Dioxide Level [facility]) ID Date Data Source [id number] 12/08/2020 09:19:00 AM EDT [facility]) Name Value Range Interpretation Code Description Data Kassy rce(s) Supporting Document(s) AST/SGOT 28 U/L 7-37 AST/SGOT [facility] ([facility]) alkaline phosphatase 90 U/L 45-117 Alkaline Phosph atase [facility] ([facility]) ALT/SGPT 26 U/L 12-78 ALT/SGPT [facility] ([facility]) bilirubin,total 0.3 mg/dL 0.2-1.0 Bilirubin,total [facility] ([facility]) bilirubin,direct < 0.1 0.0-0.2 Bilirubin,direct AT J[facility] ([facility]) albumin 3.9 gm/dL 3.2-5.2 Albumin [facility] ([facility]) total protein 8.4 gm/dL 6.4-8.2 Above high normal Total Protein [facility] ([facility]) albumin/globulin ratio 1.2-2.2 Below low normal Albumin /globulin Ratio [facility] ([facility]) ID Date Data Source [id number] 12/08/2020 09:19:00 AM EDT [facility] ([facility]) Name Value Range Interpretation Code Description Data Kassy rce(s) Supporting Document(s) white blood count 9.1 10 4.0-10.0 White Blood Count [facility] ([facility]) red blood count 4.31 10 4.00-5.40 Red Blood Count AT[facility] ([facility]) hemoglobin 12.8 g/dL 12.0-15.5 Hemoglobin S[facility]I ([facility]) hematocrit 39.2 % 36.0-47.0 Hematocrit [facility] ([facility]) mean corpuscular volume 91.0 fL 80.0-96.0 Mean Corpusc ular Volume S[facility]I ([facility]) mean corpuscular hemoglobin 29.7 pg 27.0-33.0 Mean Cor puscular Hemoglobin [facility] ([facility]) mean corpuscular HGB conc 32.7 g/dL 32.0-36.5 Mean Corpu scular HGB Conc [facility] ([facility]) platelet count, automated 276 10 150-450 Platelet C ount, Automated [facility] ([facility]) red cell distribution width 13.7 % 11.5-14.5 Red Cell Distribution Width [facility] ([facility]) nucleated red blood cell % 0.0 % 0-0 Nucleated Red Blood Cell % [facility] ([facility]) ID Date Data Source [id number] 12/08/2020 08:11:00 AM EDT S[facility] ([facility]) Name Value Range Interpretation Code Description Data Kassy rce(s) Supporting Document(s) amphetamines level urine positive negative Above high andrea l Amphetamines Level Urine [facility] ([facility]) barbiturates urine negative negative Barbiturates Urin e [facility]I ([facility]) benzodiazepines urine negative negative Benzodiazepine s Urine S[facility]I ([facility]) cannabinoids urine positive negative Above high normal Cannabinoi ds Urine S[facility]I ([facility]) cocaine metabolite urine negative negative Cocaine Met abolite Urine S[facility]I ([facility]) opiates urine negative negative Opiates Urine SUSI ( [facility]) methadone urine negative negative Methadone Urine ATHE NA ([facility]) phencyclidine urine negative negative Phencyclidine Ur ine [facility] ([facility]) ID Date Data Source [id number] 12/07/2020 09:14:00 AM EDT [facility] ([facility]) Name Value Range Interpretation Code Description Data Kassy rce(s) Supporting Document(s) istat troponin 0.01 NG/mL 0.00-0.08 Istat Troponin [facility] ([facility]) ID Date Data Source [id number] 12/07/2020 09:12:00 AM EDT [facility] ([facility]) Name Value Range Interpretation Code Description Data Kassy rce(s) Supporting Document(s) istat HCT 38.0 % 38.0-51.0 Istat HCT [facility]I ([facility]) istat sodium 138 mEq/L 136-145 Istat Sodium [facility] ([facility]) istat glucose 111 mg/dL 70-105 Above high normal Istat Glucose A THENA ([facility]) istat Ca++ 4.7 mg/dL 4.5-5.3 Istat Ca++ [facility] ([facility]) istat potassium 3.9 mEq/L 3.5-5.1 Istat Potassium ATHE NA ([facility]) istat CO2 23.0 mm/L 23.0-27.0 Istat CO2 [facility] ([facility]) istat chloride 105 mEq/L 98-109 Istat Chloride [facility] ([facility]) istat BUN 9 mg/dL 8-26 Istat BUN [facility] ([facility]) istat creatinine 0.6 mg/dL 0.6-1.3 Istat Creatinine AT [facility] ([facility]) ID Date Data Source [id number] 12/01/2020 03:02:00 AM EDT [facility] Name Value Range Interpretation Code Description Data Kassy rce(s) Supporting Document(s) SARS coronavirus 2 RNA [Presence] in Res piratory specimen by [facility]IS with probe detection NEGATIVE [place] This lab was ordered by [facility] a nd reported by [facility]. ID Date Data Source [id number] 09/15/2020 03:35:50 PM EST [facility] ([facility]) Name Value Range Interpretation Code Description Data Kassy rce(s) Supporting Document(s) Color: yellow; Glucose: nega tive; Blood: small; pH: 6.0; Protein: small; Nitrite: positive; Leukocytes: moderate Abnormal (appl ies to non-numeric results) Urine Dipstick [facility] ([facility]) ID Date Data Source [id number] 09/15/2020 03:35:12 PM EST [facility] ([facility]) Name Value Range Interpretation Code Description Data Kassy rce(s) Supporting Document(s) NegativeLot: [id number]: 03/31/2022 High Sensitivity Urine Test [facility] ([facility]) ID Date Data Source [id number] 06/02/2020 02:08:00 PM EST [facility] ([facility]) Name Value Range Interpretation Code Description Data Kassy rce(s) Supporting Document(s) alkaline phosphatase 75 U/L 45-117 Alkaline Phosph atase [facility] ([facility]) ALT/SGPT 74 U/L 12-78 ALT/SGPT [facility] ([facility]) AST/SGOT 58 U/L 7-37 Above high normal AST/SGOT [facility] ([facility]) total protein 7.7 gm/dL 6.4-8.2 Total Protein S[facility]I ( [facility]) bilirubin,total 0.4 mg/dL 0.2-1.0 [facility] bilirubin,direct 0.1 mg/dL 0.0-0.2 Bilirubin,direct AT J[facility] ([facility]) albumin/globulin ratio 1.2-2.2 Below low normal Albumin /globulin Ratio [facility] ([facility]) albumin 3.7 gm/dL 3.2-5.2 Albumin [facility] ([facility]) ID Date Data Source [id number] 06/02/2020 02:08:00 PM EST [facility] ([facility]) Name Value Range Interpretation Code Description Data Kassy rce(s) Supporting Document(s) amphetamines level urine positive negative Above high andrea l Amphetamines Level Urine [facility] ([facility]) benzodiazepines urine negative negative Benzodiazepine s Urine [facility] ([facility]) barbiturates urine negative negative Barbiturates Urin e [facility] ([facility]) cannabinoids urine positive negative Above high normal Cannabinoi ds Urine [facility] ([facility]) cocaine metabolite urine negative negative Cocaine Met abolite Urine [facility] ([facility]) methadone urine positive negative Above high normal Methadone Uri ne [facility] ([facility]) phencyclidine urine negative negative Phencyclidine Ur ine [facility] ([facility]) opiates urine positive negative Above high normal Opiates Urine A [facility] ([facility]) ID Date Data Source [id number] 06/02/2020 02:08:00 PM EST [facility] ([facility]) Name Value Range Interpretation Code Description Data Kassy rce(s) Supporting Document(s) white blood count 5.8 10 4.0-10.0 White Blood Count [facility] ([facility]) red blood count 3.95 10 4.00-5.40 Below low normal Red Blood Coun t [facility] ([facility]) hemoglobin 12.2 g/dL 12.0-15.5 Hemoglobin [facility] ([facility]) mean corpuscular volume 94.2 fL 80.0-96.0 Mean Corpusc ular Volume [facility] ([facility]) hematocrit 37.2 % 36.0-47.0 Hematocrit [facility] ([facility]) mean corpuscular hemoglobin 30.9 pg 27.0-33.0 Mean Cor puscular Hemoglobin [facility] ([facility]) mean corpuscular HGB conc 32.8 g/dL 32.0-36.5 Mean Corpu scular HGB Conc [facility] ([facility]) red cell distribution width 12.8 % 11.5-14.5 Red Cell Distribution Width [facility] ([facility]) nucleated red blood cell % 0.0 % 0-0 Nucleated Red Blood Cell % [facility] ([facility]) platelet count, automated 195 10 150-450 Platelet C ount, Automated [facility] ([facility]) ID Date Data Source [id number] 06/02/2020 02:08:00 PM EST [facility] ([facility]) Name Value Range Interpretation Code Description Data Kassy rce(s) Supporting Document(s) HCG, serum qualitative negative negative HCG, Serum Qu alitative [facility]) ID Date Data Source [id number] 06/02/2020 02:08:00 PM EST [facility] ([facility]) Name Value Range Interpretation Code Description Data Kassy rce(s) Supporting Document(s) thyroid stimulating hormone 1.690 uIU/mL 0.358-3.740 Thyroid Stimulating Hormone [facility] ([facility]) ID Date Data Source [id number] 06/02/2020 02:08:00 PM EST [facility] ([facility]) Name Value Range Interpretation Code Description Data Kassy rce(s) Supporting Document(s) acetaminophen level < 2.0 10.0-30.0 Below low normal Acetaminop hen Level [facility] ([facility]) ID Date Data Source [id number] 06/02/2020 02:08:00 PM EST [facility] ([facility]) Name Value Range Interpretation Code Description Data Kassy rce(s) Supporting Document(s) salicylate level < 1.7 5.0-30.0 Below low normal Salicylate Le jose [facility] ([facility]) ID Date Data Source [id number] 06/02/2020 02:08:00 PM EST [facility] ([facility]) Name Value Range Interpretation Code Description Data Kassy rce(s) Supporting Document(s) ethyl alcohol (ethanol) < 0.003 0.000-0.010 Ethyl Alcoh ol (Ethanol) [facility] ([facility]) ID Date Data Source [id number] 06/02/2020 02:08:00 PM EST [facility] ([facility]) Name Value Range Interpretation Code Description Data Kassy rce(s) Supporting Document(s) creatinine for GFR 0.71 mg/dL 0.55-1.30 Creatinine for GF R [facility] ([facility]) blood urea nitrogen 7 mg/dL 7-18 Blood Urea Nitro gen [facility] ([facility]) glucose, fasting 82 mg/dL 70-100 Glucose, Fasting AT [facility] ([facility]) glomerular filtration rate > 60.0 >60 Glomerula r Filtration Rate [facility] ([facility]) sodium level 139 mEq/L 136-145 Sodium Level [facility] ([facility]) potassium serum 3.6 mEq/L 3.5-5.1 Potassium Serum ATHE NA ([facility]) anion gap 6 mEq/L 8-16 Below low normal Anion Gap [facility] ( [facility]) carbon dioxide level 24 mEq/L 21-32 Carbon Dioxide Level [facility] ([facility]) chloride level 109 mEq/L 98-107 Above high normal Chloride Level [facility] ([facility]) calcium level 8.8 mg/dL 8.5-10.1 Calcium Level [facility] ( [facility]) ID Date Data Source [id number] 06/01/2020 01:01:00 PM EST [facility] ([facility]) Name Value Range Interpretation Code Description Data Kassy rce(s) Supporting Document(s) amphetamines level urine positive negative Above high andrea l Amphetamines Level Urine [facility] ([facility]) cocaine metabolite urine positive negative Above high andrea l Cocaine Metabolite Urine [facility] ([facility]) cannabinoids urine positive negative Above high normal Cannabinoi ds Urine [facility] ([facility]) benzodiazepines urine negative negative Benzodiazepine s Urine [facility] ([facility]) barbiturates urine negative negative Barbiturates Urin e [facility] ([facility]) phencyclidine urine negative negative Phencyclidine Ur ine [facility] ([facility]) methadone urine positive negative Above high normal Methadone Uri ne [facility] ([facility]) opiates urine positive negative Above high normal Opiates Urine A [facility] ([facility]) ID Date Data Source [id number] 06/01/2020 01:01:00 PM EST [facility] ([facility]) Name Value Range Interpretation Code Description Data Kassy rce(s) Supporting Document(s) HCG, serum qualitative negative negative HCG, Serum Qu alitative [facility] ([facility]) ID Date Data Source [id number] 06/01/2020 01:01:00 PM EST [facility] ([facility]) Name Value Range Interpretation Code Description Data Kassy rce(s) Supporting Document(s) thyroid stimulating hormone 4.060 uIU/mL 0.358-3.740 Above high no rmal Thyroid Stimulating Hormone [facility] ([facility]) ID Date Data Source [id number] 06/01/2020 01:01:00 PM EST [facility] ([facility]) Name Value Range Interpretation Code Description Data Kassy rce(s) Supporting Document(s) acetaminophen level < 2.0 10.0-30.0 Below low normal Acetaminop hen Level [facility] ([facility]) ID Date Data Source [id number] 06/01/2020 01:01:00 PM EST [facility] ([facility]) Name Value Range Interpretation Code Description Data Kassy rce(s) Supporting Document(s) salicylate level < 1.7 5.0-30.0 Below low normal Salicylate Le jose [facility] ([facility]) ID Date Data Source [id number] 06/01/2020 01:01:00 PM EST [facility] ([facility]) Name Value Range Interpretation Code Description Data Kassy rce(s) Supporting Document(s) ethyl alcohol (ethanol) < 0.003 0.000-0.010 Ethyl Alcoh ol (Ethanol) [facility] ([facility]) ID Date Data Source [id number] 06/01/2020 01:01:00 PM EST [facility] ([facility]) Name Value Range Interpretation Code Description Data Kassy rce(s) Supporting Document(s) glucose, fasting 129 mg/dL 70-100 Above high normal Glucose, Fas ting [facility] ([facility]) blood urea nitrogen 12 mg/dL 7-18 Blood Urea Nitro gen [facility] ([facility]) creatinine for GFR 0.83 mg/dL 0.55-1.30 Creatinine for GF R [facility] ([facility]) sodium level 136 mEq/L 136-145 Sodium Level [facility] ([facility]) glomerular filtration rate > 60.0 >60 Glomerula r Filtration Rate [facility] ([facility]) potassium serum 3.6 mEq/L 3.5-5.1 Potassium Serum ATHE NA ([facility]) chloride level 103 mEq/L 98-107 Chloride Level [facility] ([facility]) carbon dioxide level 23 mEq/L 21-32 Carbon Dioxide Level [facility] ([facility]) anion gap 10 mEq/L 8-16 Anion Gap [facility] ([facility]) calcium level 8.8 mg/dL 8.5-10.1 Calcium Level [facility] ( [facility]) ID Date Data Source [id number] 06/01/2020 01:01:00 PM EST [facility] ([facility]) Name Value Range Interpretation Code Description Data Kassy rce(s) Supporting Document(s) AST/SGOT 61 U/L 7-37 Above high normal AST/SGOT [facility] ([facility]) ALT/SGPT 89 U/L 12-78 Above high normal ALT/SGPT [facility] ([facility]) alkaline phosphatase 80 U/L 45-117 Alkaline Phosph atase [facility] ([facility]) bilirubin,total 0.3 mg/dL 0.2-1.0 Bilirubin,total [facility] ([facility]) total protein 8.4 gm/dL 6.4-8.2 Above high normal Total Protein [facility] ([facility]) bilirubin,direct 0.1 mg/dL 0.0-0.2 Bilirubin,direct AT [facility]) albumin/globulin ratio 1.2-2.2 Below low normal Albumin /globulin Ratio [facility] ([facility]) albumin 4.2 gm/dL 3.2-5.2 Albumin [facility] ([facility]) ID Date Data Source [id number] 06/01/2020 01:01:00 PM EST [facility] ([facility]) Name Value Range Interpretation Code Description Data Kassy rce(s) Supporting Document(s) white blood count 5.6 10 4.0-10.0 White Blood Count SUSI ([facility]) red blood count 4.07 10 4.00-5.40 Red Blood Count ATHE NA ([facility]) hemoglobin 12.4 g/dL 12.0-15.5 Hemoglobin SUSI ([facility]) hematocrit 37.8 % 36.0-47.0 Hematocrit SUSI ([facility]) mean corpuscular hemoglobin 30.5 pg 27.0-33.0 Mean Cor puscular Hemoglobin SUSI ([facility]) mean corpuscular HGB conc 32.8 g/dL 32.0-36.5 Mean Corpu scular HGB Conc SUSI ([facility]) mean corpuscular volume 92.9 fL 80.0-96.0 Mean Corpusc ular Volume SUSI ([facility]) neutrophils % 39.6 % 36.0-66.0 Neutrophils % HESTER ( [facility]) red cell distribution width 12.8 % 11.5-14.5 Red Cell Distribution Width SUSI ([facility]) platelet count, automated 205 10 150-450 Platelet C ount, Automated SUSI ([facility]) mono % 8.0 % 0.0-5.0 Above high normal Rich % SUSI ([facility]) lymph % 48.6 % 24.0-44.0 Above high normal Lymph % SUSI ([facility]) baso % 0.9 % 0.0-1.0 Baso % SUSI ([facility]) eos % 2.7 % 0.0-3.0 Eos % SUSI ([facility]) immature granulocyte % 0.2 % 0-3.0 Immature Gran ulocyte % SUSI ([facility]) nucleated red blood cell % 0.0 % 0-0 Nucleated Red Blood Cell % SUSI ([facility]) neutrophils # 2.2 10 1.5-8.5 Neutrophils # SUSI ( [facility]) lymph # 2.7 10 1.5-5.0 Lymph # SUSI ([facility]) mono # 0.5 10 0.0-0.8 Rich # SUSI ([facility]) eos # 0.2 10 0.0-0.5 Eos # SUSI ([facility]) baso # 0.1 10 0.0-0.2 Baso # SUSI ([facility]) Procedure Social History Code Duration Value Status Description Data Source(s ) Alcohol intake 06/19/2021 12:00:00 AM EST Ex-drinker (finding) comp leted Ex- drinker (finding) [facility] Smoking 06/19/2021 12:00:00 AM EST Smokes tobacco daily comple marques Smokes tobacco daily [facility] Smoking 04/14/2021 12:00:00 AM EDT Smoker, current status unkn own completed Smoker, current status unknown [facility] ([facility]) 09/15/2020 12:00:00 AM EST Heavy cigarette smoker (20- 39 cigs/day) completed Heavy cigarette smoker (20-39 cigs/day) [facility] ([facility]) Vital Signs ID Date Data Source UNK Name Value Range Interpretation Code Description Data Source(s) Diastolic blood pressure 73 mm[Hg] 73 mm[Hg] SUSI ([facility]) Systolic blood pressure 104 mm[Hg] 104 mm[Hg] A THENA ([facility]) Body weight 1920 [oz_av] 1920 [oz_av] SUSI ([facility]) Body weight 59.239 kg 59.239 kg [facility] ([facility]) Systolic blood pressure 120 mm[Hg] 120 mm[Hg] N [facility] ([facility]) Diastolic blood pressure 77 mm[Hg] 77 mm[Hg] [facility] ([facility]) Body height 154.94 cm 154.94 cm [facility] ([facility]) Body mass index (BMI) [Ratio] 24.68 kg/m2 24.68 kg/m2 [facility] ([facility] Body height 154.94 cm 154.94 cm [facility] ([facility] Body weight 58.967 kg 58.967 kg [facility] ([facility]) Body mass index (BMI) [Ratio] 24.56 kg/m2 24.56 kg/m2 [facility] ([facility] [place]) ID Date Data Source [id number] 07/06/2021 05:53:13 AM [facility] Name Value Range Interpretation Code Description Data Source(s) TRANSFER FROM [facility] ID Date Data Source [id number] 02/23/2021 10:02:00 AM EDT [facility] Name Value Range Interpretation Code Description Data Source(s) Weight (Calculated Kilograms) 55.34 55.34 [facility] Height (Calculated Centimeters) 154.94 154. 94 [facility] Body Mass Index (BMI) 23.0 23.0 [facility] ID Date Data Source [id number] 03/09/2021 03:19:00 PM EDT [facility] Name Value Range Interpretation Code Description Data Source(s) Weight Measurement Method 1 1 [facility] Weight (Calculated Kilograms) 55.34 55.34 [facility] Weight 2144 2144 [facility] Temperature Source 7 7 [facility] Temperature 96.4 96.4 [facility] Respiratory Effort 1 1 [facility] Respiratory Rate 16 16 [facility] Pulse Assessment Method 4 4 [facility] Pulse Rate 117 117 [facility] Height (Calculated Centimeters) 154.94 154. 94 [facility] Height 61 61 [facility] Blood Pressure 110/70 110/70 [facility] Body Mass Index (BMI) 23.0 23.0 [facility] Weight Measurement Method 1 1 [facility] Weight (Calculated Kilograms) 55.34 55.34 [facility] Weight 2144 2144 [facility] Temperature Source 7 7 [facility] Temperature 96.4 96.4 [facility] Respiratory Effort 1 1 [facility] Respiratory Rate 16 16 [facility] Pulse Assessment Method 4 4 [facility] Pulse Rate 117 117 [facility] Height (Calculated Centimeters) 154.94 154. 94 [facility] Height 61 61 [facility] Blood Pressure 110/70 110/70 [facility] Body Mass Index (BMI) 23.0 23.0 [facility] Weight Measurement Method 1 1 [facility] Weight (Calculated Kilograms) 55.34 55.34 [facility] Weight 2144 2144 [facility] Temperature Source 7 7 [facility] Temperature 96.4 96.4 [facility] Respiratory Effort 1 1 [facility] Respiratory Rate 16 16 [facility] Pulse Assessment Method 4 4 [facility] Pulse Rate 117 117 [facility] Height (Calculated Centimeters) 154.94 154. 94 [facility] Height 61 61 [facility] Blood Pressure 110/70 110/70 [facility] Body Mass Index (BMI) 23.0 23.0 [facility] Weight Measurement Method 1 1 [facility] Weight (Calculated Kilograms) 55.34 55.34 [facility] Weight 1983 1983 [facility] Temperature Source 7 7 [facility] Temperature 97.3 97.3 [facility] Respiratory Effort 1 1 [facility] Respiratory Rate 14 14 [facility] Pulse Assessment Method 4 4 [facility] Pulse Rate 69 69 [facility] Height (Calculated Centimeters) 154.94 154. 94 [facility] Height 61 61 [facility] Blood Pressure 112/79 112/79 [facility] Body Mass Index (BMI) 23.0 23.0 [facility] Weight Measurement Method 1 1 [facility] Weight (Calculated Kilograms) 55.34 55.34 [facility] Weight 1983 1983 [facility] Temperature Source 7 7 [facility] Temperature 97.1 97.1 [facility] Respiratory Effort 1 1 [facility] Respiratory Rate 16 16 [facility] Pulse Assessment Method 4 4 [facility] Pulse Rate 74 74 [facility] Height (Calculated Centimeters) 154.94 154. 94 [facility] Height 61 61 [facility] Blood Pressure 110/74 110/74 [facility] Body Mass Index (BMI) 23.0 23.0 [facility] Weight (Calculated Kilograms) 56.25 56.25 [facility] Height (Calculated Centimeters) 154.94 154. 94 [facility] Body Mass Index (BMI) 23.4 23.4 [facility] ID Date Data Source [id number] 05/19/2020 05:30:00 AM EDT [facility] Name Value Range Interpretation Code Description Data Source(s) Weight Measurement Method 1 1 [facility] Weight (Calculated Kilograms) 56.25 56.25 [facility] Weight 2063 2063 [facility] Temperature Source 7 7 [facility] Temperature 97.5 97.5 [facility] Respiratory Effort 1 1 [facility] Respiratory Rate 15 15 [facility] Pulse Assessment Method 4 4 [facility] Pulse Rate 83 83 [facility] Height (Calculated Centimeters) 154.94 154. 94 [facility] Height 61 61 [facility] Blood Pressure 109/75 109/75 [facility] Body Mass Index (BMI) 23.4 23.4 [facility] Weight Measurement Method 1 1 [facility] Weight (Calculated Kilograms) 56.25 56.25 [facility] Weight 2063 2063 [facility] Temperature Source 7 7 [facility] Temperature 97.5 97.5 [facility] Respiratory Effort 1 1 [facility] Respiratory Rate 15 15 [facility] Pulse Assessment Method 4 4 [facility] Pulse Rate 83 83 [facility] Height (Calculated Centimeters) 154.94 154. 94 [facility] Height 61 61 [facility] Blood Pressure 109/75 109/75 [facility] Body Mass Index (BMI) 23.4 23.4 [facility] Weight Measurement Method 1 1 [facility] Weight (Calculated Kilograms) 56.25 56.25 [facility] Weight 2063 2063 [facility] Temperature Source 7 7 [facility] Temperature 97.5 97.5 [facility] Respiratory Effort 1 1 [facility] Respiratory Rate 15 15 [facility] Pulse Assessment Method 4 4 [facility] Pulse Rate 83 83 [facility] Height (Calculated Centimeters) 154.94 154. 94 [facility] Height 61 61 [facility] Blood Pressure 109/75 109/75 [facility] Body Mass Index (BMI) 23.4 23.4 [facility] Weight Measurement Method 1 1 [facility] Weight (Calculated Kilograms) 56.25 56.25 [facility] Weight 2063 2063 [facility] Temperature Source 7 7 [facility] Temperature 97.5 97.5 [facility] Respiratory Effort 1 1 [facility] Respiratory Rate 15 15 [facility] Pulse Assessment Method 4 4 [facility] Pulse Rate 83 83 [facility] Height (Calculated Centimeters) 154.94 154. 94 [facility] Height 61 61 [facility] Blood Pressure 109/75 109/75 [facility] Body Mass Index (BMI) 23.4 23.4 [facility] Weight Measurement Method 1 1 [facility] Weight (Calculated Kilograms) 56.25 56.25 [facility] Weight 1983 1983 [facility] Temperature Source 7 7 [facility] Temperature 96.9 96.9 [facility] Respiratory Effort 1 1 [facility] Respiratory Rate 15 15 [facility] Pulse Assessment Method 4 4 [facility] Pulse Rate 90 90 [facility] Height (Calculated Centimeters) 154.94 154. 94 [facility] Height 61 61 [facility] Blood Pressure 104/67 104/67 [facility] Body Mass Index (BMI) 23.4 23.4 [facility] Weight Measurement Method 1 1 [facility] Weight (Calculated Kilograms) 56.25 56.25 [facility] Weight 1983 1983 [facility] Temperature Source 7 7 [facility] Temperature 97.8 97.8 [facility] Respiratory Effort 1 1 [facility] Respiratory Rate 17 17 [facility] Pulse Assessment Method 4 4 [facility] Pulse Rate 93 93 [facility] Height (Calculated Centimeters) 154.94 154. 94 [facility] Height 61 61 [facility] Blood Pressure 110/87 110/87 [facility] Body Mass Index (BMI) 23.4 23.4 [facility] Weight (Calculated Kilograms) 72.12 72.12 [facility] Height (Calculated Centimeters) 154.94 154. 94 [facility] Body Mass Index (BMI) 30.0 30.0 [facility] Patient Treatment Plan of Care Planned Activity Planned Date Details Description Data Source (s) Fluoxetine 10 MG Oral Capsule 06/25/2021 12:00:00 AM [facility] Trazodone Hydrochloride 50 MG Oral Tablet 06/24/2021 12:00:00 AM [facility] buspirone hydrochloride 10 MG Oral Tablet 06/24/2021 12:00:00 AM [facility] benztropine mesylate 1 MG Oral Tablet 06/24/2021 12:00:00 AM [facility] topiramate 100 MG Oral Tablet 06/24/2021 12:00:00 AM [facility] sennosides, FDC 8.6 MG Oral Tablet 06/19/2021 02:49:34 PM [facility] Bisacodyl 10 MG Rectal Suppository 06/19/2021 02:49:34 PM [facility] Acetaminophen 325 MG Oral Tablet 06/19/2021 01:51:28 AM [facility] Magnesium Hydroxide 80 MG/ML Oral Suspension 06/19/2021 01:49:45 AM [facility] Aluminum Hydroxide 40 MG/ML / Magnesium Hydroxide 40 MG/ML / Simethicone 4 MG/ML Oral Suspension 06/19/2021 01:49:45 AM [facility] Ondansetron 4 MG Disintegrating Oral Tablet 06/19/2021 01:49:45 AM [facility] Haloperidol Decanoate 100 MG/ML Intramuscular Solution (HALDOL DECANOATE) 06/16/2021 12:00:00 AM [facility] Nicotine 4 MG Chewing Gum 06/11/2021 12:00:00 AM [facility] Mupirocin 0.02 MG/MG Topical Ointment 06/10/2021 12:00:00 AM [facility] Haloperidol 5 MG Oral Tablet 06/10/2021 12:00:00 AM [facility] Fluoxetine 20 MG Oral Capsule 06/10/2021 12:00:00 AM [facility] buspirone hydrochloride 15 MG Oral Tablet 06/10/2021 12:00:00 AM [facility] Buprenorphine 8 MG / Naloxone 2 MG Oral Strip [Suboxon e] 05/27/2021 12:00:00 AM [facility] aripiprazole 400 MG Injection [Abilify] 05/27/2021 12:00:00 AM [facility] Mirtazapine 15 MG Oral Tablet 05/25/2021 12:00:00 AM [facility] aripiprazole 10 MG Oral Tablet 05/25/2021 12:00:00 AM [facility] olanzapine 15 MG Oral Tablet 05/17/2021 12:00:00 AM [facility] Narcan 4 MG/0.1ML Nasal Liquid 05/13/2021 12:00:00 AM [facility] gabapentin 600 MG Oral Tablet 05/13/2021 12:00:00 AM [facility] Cephalexin 500 MG Oral Capsule 05/13/2021 12:00:00 AM [facility] olanzapine 10 MG Oral Tablet 04/15/2021 12:00:00 AM [facility] Mirtazapine 30 MG Oral Tablet 04/15/2021 12:00:00 AM [facility] Risperidone 2 MG Oral Tablet 03/30/2021 12:00:00 AM [facility] Prazosin 1 MG Oral Capsule 03/30/2021 12:00:00 AM [facility] SM Fiber Powder 25 % Oral Powder 02/26/2021 12:00:00 AM [facility] atomoxetine 40 MG Oral Capsule 02/24/2021 12:00:00 AM [facility] atomoxetine 10 MG Oral Capsule 02/24/2021 12:00:00 AM [facility] Sertraline 100 MG Oral Tablet 02/24/2021 12:00:00 AM [facility] Docusate Sodium 50 MG / sennosides, FDC 8.6 MG Oral Ta blet 02/24/2021 12:00:00 AM [facility] 24 HR Oxybutynin chloride 10 MG Extended Release Oral Tablet 02/24/2021 12:00:00 AM [facility] Nicotine 2 MG Chewing Gum 02/24/2021 12:00:00 AM [facility] 24 HR Nicotine 0.875 MG/HR Transdermal Patch 02/24/2021 12:00:00 AM [facility] Naproxen 500 MG Oral Tablet 02/24/2021 12:00:00 AM [facility] Tab-A-Silvestre Oral Tablet 02/24/2021 12:00:00 AM [facility] Melatonin 3 MG Oral Tablet 02/24/2021 12:00:00 AM [facility] Levothyroxine Sodium 0.05 MG Oral Tablet 02/24/2021 12:00:00 AM [facility] Cholecalciferol 2000 UNT Oral Tablet 02/24/2021 12:00:00 AM [facility] Amitriptyline Hydrochloride 25 MG Oral Tablet 02/24/2021 12:00:00 A M [facility] Sertraline 50 MG Oral Tablet 01/18/2021 12:00:00 AM [facility] Risperidone 3 MG Oral Tablet 01/18/2021 12:00:00 AM [facility] Prazosin 2 MG Oral Capsule 01/18/2021 12:00:00 AM [facility] doxycycline hyclate 100 MG Oral Tablet 01/18/2021 12:00:00 AM [facility] Sertraline 50 MG Oral Tablet [Zoloft] 01/18/2021 12:00:00 AM [facility] Risperidone 3 MG Oral Tablet [Risperdal] 01/18/2021 12:00:00 AM [facility] Prazosin 2 MG Oral Capsule [Minipress] 01/18/2021 12:00:00 AM [facility] olanzapine 15 MG Oral Tablet 01/18/[facility] 1 TAB TAB 01/18/2021 12: 00:00 AM [facility] Mirtazapine 15 MG Oral Tablet 01/18/2021 12:00:00 AM [facility] gabapentin 600 MG Oral Tablet 01/18/2021 12:00:00 AM [facility] doxycycline hyclate 100 MG Oral Tablet 01/18/2021 12:00:00 AM [facility] Docusate Sodium 100 MG Oral Capsule [Colace] 01/18/2021 12:00:00 AM [facility] Buprenorphine 8 MG / Naloxone 2 MG Oral Strip [Suboxon e] 01/18/2021 12:00:00 AM [facility] olanzapine 5 MG Disintegrating Oral Tablet 12/12/2020 12:00:00 AM [facility] Metronidazole 500 MG Oral Tablet 12/11/2020 12:00:00 AM [facility] Buprenorphine 12 MG / Naloxone 3 MG Oral Strip 10/09/2020 12:00:00 AM [facility] Nicotine 4 MG Oral Lozenge 09/29/2020 12:00:00 AM [facility] olanzapine 15 MG Oral Tablet 09/29/2020 12:00:00 AM [facility] Metronidazole 500 MG Oral Tablet 09/22/2020 12:00:00 AM [facility] gabapentin 400 MG Oral Capsule 09/08/2020 12:00:00 AM [facility] Haloperidol 10 MG Oral Tablet 08/30/2020 12:00:00 AM [facility] Hydroxyzine Hydrochloride 50 MG Oral Tablet 08/04/2020 12:00:00 AM [facility] olanzapine 5 MG Oral Tablet 07/24/2020 12:00:00 AM [facility] Sertraline 25 MG Oral Tablet 07/08/2020 12:00:00 AM [facility] 168 HR Ethinyl Estradiol 0.20587 MG/HR / norelgestromin 0.38429 MG/HR Transdermal Patch [Xulane] 03/03/2020 12:00:00 AM [facility] ([facility]) Benzalkonium Chloride 1.3 MG/ML Medicated Pad 11/09/2011 12:00:00 A M [facility] Sulfamethoxazole 800 MG / Trimethoprim 160 MG Oral Tab let 02/16/2011 12:00:00 AM [facility] TRAMADOL HCL PO 02/10/2011 12:00:00 AM [facility] tramadol hydrochloride 50 MG Oral Tablet 02/09/2011 12:00:00 AM [facility] Levonorgestrel 1.5 MG Oral Tablet 02/09/2011 12:00:00 AM [facility] Ibuprofen 600 MG Oral Tablet 02/09/2011 12:00:00 AM [facility] doxycycline hyclate 100 MG Oral Tablet 02/09/2011 12:00:00 AM EDT [facility] Buprenorphine 8 MG / Naloxone 2 MG Sublingual Tablet [facility] benztropine mesylate 1 MG Oral Tablet [facility] topiramate 100 MG Oral Tablet [facility] atomoxetine 60 MG Oral Capsule [facility] Buprenorphine 2 MG / Naloxone 0.5 MG Oral Strip [facility] Docusate Sodium 100 MG Oral Capsule [facility] Trazodone Hydrochloride 50 MG Oral Tablet [facility] Haloperidol 2 MG Oral Tablet [facility] Fluoxetine 10 MG Oral Capsule [facility] buspirone hydrochloride 10 MG Oral Tablet [facility] Trazodone Hydrochloride 100 MG Oral Tablet [facility] ([facility]) topiramate 50 MG Oral Tablet [facility] ([facility]) topiramate 25 MG Oral Tablet [facility] ([facility]) Sulfamethoxazole 800 MG / Trimethoprim 160 MG Oral Tablet [facility] ([facility]) Sertraline 50 MG Oral Tablet [facility] ([facility]) Sertraline 25 MG Oral Tablet [facility] ([facility]) Sertraline 100 MG Oral Tablet [facility] ([facility]) Risperidone 3 MG Oral Tablet [facility] ([facility]) Risperidone 2 MG Oral Tablet [facility] ([facility]) Prazosin 2 MG Oral Capsule A THENA ([facility]) Prazosin 1 MG Oral Capsule A [facility]NA ([facility]) 24 HR paliperidone 6 MG Extended Release Oral Tablet [facility] ([facility]) 24 HR paliperidone 3 MG Extended Release Oral Tablet [facility] ([facility]) 24 HR Oxybutynin chloride 5 MG Extended Release Oral Tablet [facility] ([facility]) 24 HR Oxybutynin chloride 10 MG Extended Release Oral Tablet [facility] ([facility]) olanzapine 5 MG Oral Tablet [facility] ([facility]) olanzapine 5 MG Disintegrating Oral Tablet [facility] ([facility]) benztropine mesylate 1 MG Oral Tablet [facility] ([facility]) atomoxetine 40 MG Oral Capsule [facility] ([facility]) atomoxetine 10 MG Oral Capsule [facility] ([facility]) aripiprazole 2 MG Oral Tablet [facility] ([facility]) Amitriptyline Hydrochloride 25 MG Oral Tablet [facility] ([facility]) Sertraline 50 MG Oral Tablet [Zoloft] [facility]. Risperidone 3 MG Oral Tablet [Risperdal] [facility] Prazosin 2 MG Oral Capsule [Minipress] [facility]. olanzapine 15 MG Oral Tablet [facility] Mirtazapine 15 MG Oral Tablet [facility]. gabapentin 600 MG Oral Tablet [facility]. Docusate Sodium 100 MG Oral Capsule [Colace] [facility]. Buprenorphine 8 MG / Naloxone 2 MG Oral Strip [Suboxone] [facility]. topiramate 50 MG Oral Tablet [Topamax] [facility] ([facility]) olanzapine 10 MG Oral Tablet [facility] ([facility]) Naproxen 500 MG Oral Tablet [facility] ([facility]) Mirtazapine 15 MG Oral Tablet [facility] ([facility]) Metronidazole 500 MG Oral Tablet [facility] ([facility]) Loratadine 10 MG Oral Tablet [facility] ([facility]) Levothyroxine Sodium 0.05 MG Oral Tablet [facility] ([facility]) Hydroxyzine Hydrochloride 50 MG Oral Tablet [facility] ([facility]) Hydroxyzine Hydrochloride 25 MG Oral Tablet [facility] ([facility]) Haloperidol 2 MG Oral Tablet [facility] ([facility]) Haloperidol 10 MG Oral Tablet [facility] ([facility]) gabapentin 400 MG Oral Capsule [facility] ([facility]) gabapentin 300 MG Oral Capsule [facility] ([facility]) 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 MG Oral Capsule [facility] ([facility]) Fluoxetine 10 MG Oral Capsule [facility] ([facility]) doxycycline hyclate 100 MG Oral Tablet [facility] ([facility]) Docusate Sodium 100 MG Oral Capsule [facility] ([facility]) Divalproex Sodium 500 MG Delayed Release Oral Tablet [facility] ([facility]) Divalproex Sodium 250 MG Delayed Release Oral Tablet [facility] ([facility]) Cephalexin 500 MG Oral Capsule [facility] ([facility]) buspirone hydrochloride 7.5 MG Oral Tablet [facility] ([facility])
[2021-07-10] MEDS ORDERED: TRAZ-186 PO (16:13)
[2021-07-10] MEDS ORDERED: FLUO20CA22 PO (16:13)
[2021-07-10] MEDS ORDERED: GABA600T4 PO (16:13)
[2021-07-10] MEDS ORDERED: BUSP10TA PO (16:13)
[2021-07-10] MEDS ORDERED: HOME MED LIST COMPLETE! XX SCH (16:15)
[2021-07-10] MEDS: GABAPENTIN 300 MG CAP PO SCH ×2 (17:11→21:16)
[2021-07-10] MEDS: busPIRone 10 MG TAB PO SCH (21:16)
[2021-07-10] MEDS: BENZTROPINE 1 MG TAB PO SCH (21:16)
[2021-07-11] MEDS ORDERED: INFLUENZA QUADRIVALENT PF VACCINE 0.5ML SYRINGE IM ONE (09:00)
[2021-07-11] MEDS ORDERED: BUPRENORPHINE/NALOXONE 8-2MG SUBLINGUAL TABLET(SUBOXONE) SL SCH (09:00)
[2021-07-11] MEDS: GABAPENTIN 300 MG CAP PO SCH ×3 (09:53→20:10)
[2021-07-11] MEDS: BUPRENORPHINE/NALOXONE 2-0.5MG SUBLINGUAL TABLET(SUBOXONE) SL SCH (09:53)
[2021-07-11] MEDS: BENZTROPINE 1 MG TAB PO SCH ×2 (09:53→20:10)
[2021-07-11] MEDS: busPIRone 10 MG TAB PO SCH ×2 (09:53→20:10)
[2021-07-11] MEDS: FLUoxetine 10 MG CAP PO SCH (09:53)
[2021-07-11] MEDS: OLANZapine ORAL DISINTEGRATING TAB 5MG PO PRN (13:02)
[2021-07-11 13:34] LABS: AMPHETAMINES LEVEL URINE NEGATIVE (NEGATIVE); BARBITURATES URINE NEGATIVE (NEGATIVE); BENZODIAZEPINES URINE NEGATIVE (NEGATIVE); CANNABINOIDS URINE POSITIVE (NEGATIVE); COCAINE METABOLITE URINE NEGATIVE (NEGATIVE); METHADONE URINE NEGATIVE (NEGATIVE); OPIATES URINE NEGATIVE (NEGATIVE); PHENCYCLIDINE URINE NEGATIVE (NEGATIVE)
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
[2021-07-11] MEDS: BUPRENORPHINE/NALOXONE 8-2MG SUBLINGUAL TABLET(SUBOXONE) SL SCH (17:26)
[2021-07-11 19:10] VITALS: BP 87/54
[2021-07-12 06:27] VITALS: BP 113/74
[2021-07-12] MEDS: FLUoxetine 10 MG CAP PO SCH (07:59)
[2021-07-12] MEDS: BUPRENORPHINE/NALOXONE 8-2MG SUBLINGUAL TABLET(SUBOXONE) SL SCH ×2 (07:59→17:03)
[2021-07-12] MEDS: busPIRone 10 MG TAB PO SCH ×2 (07:59→20:51)
[2021-07-12] MEDS: BUPRENORPHINE/NALOXONE 2-0.5MG SUBLINGUAL TABLET(SUBOXONE) SL SCH (07:59)
[2021-07-12] MEDS: BENZTROPINE 1 MG TAB PO SCH ×2 (08:00→20:51)
[2021-07-12] MEDS: GABAPENTIN 300 MG CAP PO SCH ×3 (08:00→20:51)
[2021-07-12] MEDS ORDERED: NICOTINE 21MG/24HR 1 EA TRANSDERMAL TD PRN (10:25)
--- NOTE | 2021-07-12 10:55 | MHIPNPDOC ---
[facility] Progress Note Progress Note DATE OF SERVICE: 07/12/21 HISTORY: As per ED report: "Patient is a 36 yo female who was recently released from [facility].Patient was very guarded and minimized her answers with TW. Patient requested admission as she would like to be restarted on her medication. Patient reports to check writer salesperson that she is having SI with no plan. She also reports hearing voices that tell her to hurt herself. When asked what brought her in today patient stated that things have been happening in life. When asked to elaborate patient just sat quietly in her room. Patient also told her that the father of child is trying to kill her. Patient is unable to contract for safety at this time." VITAL SIGNS: See below. NEW TEST RESULTS: See below CURRENT MEDICATIONS: See below. MENTAL STATUS EXAMINATION: General Appearance: disheveled, appears stated age, hospital scubs/clothing Build: average Demeanor: average Eye Contact: average Activity: average Behavior: cooperative Speech: slow, spontaneous, needs less prompting, normal tone Mood: depressed, anxious Affect: depressed, constricted Thought Process: logical/linear Thought Content (Delusions): other (she didn't answer the question) Thought Content (Other): guilty, ideas of reference Perception (Hallucinations): She still reports auditory hallucinations, sometimes are commanding in nature. She reports paranoid thoughts. Perception (Other): depersonalization Oriented: Awake, Alert, Oriented times three (partially) Insight: poor Judgment: Poor Psychosis: Psychotic Perceptions DIAGNOSES: Schizoaffective, depressed type Unspecified neurocognitive disorder, likely secondary to persistent substance use Other specified substance use disorder, rule out synthetic cannabinoid use disorder History of cannabis use disorder History of tobacco use disorder History of methamphetamine use disorder R/O PTSD ASSESSMENT: She is saying she doesn't want to take Suboxone anymore, she would prefer to take a benzodiazepine for her panic attacks. She says she is aware about slowly tapering them off. She says when she uses drugs is because she "self medicates", she feels happier, but she knows these drugs could affect her heart. MANAGEMENT PLAN: Will stop the Suboxone 2/.5 mgs. will start tapering process. She is aware about having to taper it slowly. TIME SPENT: 20 minutes. Vital Signs Vital Signs Date Time Temp Pulse Resp B/P (MAP) Pulse Ox O2 Delivery O2 Flow Rate FiO2 07/12/21 06:27 97.4 105 16 113/74 (87) 96 Room Air Laboratory Data 24H Labs Laboratory Tests 2 07/11/21 13:00: Urine Opiates Screen NEGATIVE, Urine Methadone Screen NEGATIVE, Urine Barbiturates Screen NEGATIVE, Urine Phencyclidine Screen NEGATIVE, Urine Amphetamines Screen NEGATIVE, Urine Benzodiazepines Screen NEGATIVE, Urine Cocaine Metabolite Screen NEGATIVE, Urine Cannabinoids Screen POSITIVEH Current Medications Current Medications Medications (Trade) Dose Ordered Sig/René Route PRN Reason Start Time Stop Time Status Last Admin Dose Admin Acetaminophen (Tylenol Tab) 650 mg Q6HP PRN PO HEADACHE or MILD DISCOMFORT 07/10/21 15:35 Al Hydrox/Mg Hydrox/Simethicone (Mylanta) 30 ml Q4HP PRN PO HEARTBURN/INDIGESTION 07/10/21 15:35 Benztropine Mesylate (Cogentin) 1 mg BID PO 07/10/21 21:00 07/12/21 08:00 Buprenorphine/ Naloxone (Suboxone 2/ 0.5mg) 1 tab DAILY SL 07/11/21 09:00 07/12/21 07:59 Buprenorphine/ Naloxone (Suboxone 8/2mg) 1 tab BID SL 07/11/21 09:00 07/11/21 17:22 DC 07/11/21 09:53 Buprenorphine/ Naloxone (Suboxone 8/2mg) 1 tab BID@0900,1800 SL 07/11/21 18:00 07/12/21 07:59 Buspirone HCl (Buspar) 10 mg BID PO 07/10/21 21:00 07/12/21 07:59 Fluoxetine HCl (PROzac) 30 mg DAILY PO 07/11/21 09:00 07/12/21 07:59 Gabapentin (Neurontin) 600 mg TID PO 07/10/21 16:00 07/12/21 08:00 Haloperidol (Haldol) 6 mg BID PO 07/10/21 21:00 07/12/21 08:00 Home Med (Home Med List Complete!) ASDIRECTED XX 07/10/21 16:15 07/10/21 16:43 DC Magnesium Hydroxide (Milk Of Magnesia) 30 ml DAILYPRN PRN PO CONSTIPATION 07/10/21 15:35 Nicotine (Nicoderm Cq 21mg) 1 patch DAILYPRN PRN TD NICOTINE WITHDRAWAL 12/12/21 10:25 Olanzapine (ZyPREXA ZYDIS) 5 mg Q6HP PRN PO ANXIETY/AGITATION 07/10/21 15:35 07/11/21 13:02 Trazodone HCl (Desyrel) 50 mg QHSP PRN PO INSOMNIA 07/10/21 15:35 Allergies Coded Allergies: No Known Allergies (Verified , 06/02/20) JOEY BENOIT MD Jul 12, 2021 10:39
[2021-07-12] MEDS: OLANZapine ORAL DISINTEGRATING TAB 5MG PO PRN ×2 (12:33→19:31)
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
[2021-07-12 18:58] LABS: CHOLESTEROL RISK RATIO 4.064 (<5)
[2021-07-12] MEDS: traZODone 50 MG TAB PO PRN (20:51)
[2021-07-13] MEDS: OLANZapine ORAL DISINTEGRATING TAB 5MG PO PRN ×3 (04:47→21:48)
[2021-07-13 06:51] VITALS: BP 99/64
[2021-07-13] MEDS: BENZTROPINE 1 MG TAB PO SCH ×2 (10:18→20:11)
[2021-07-13] MEDS: SERTRALINE HCL 50 MG TAB PO SCH (10:18)
[2021-07-13] MEDS: GABAPENTIN 300 MG CAP PO SCH ×3 (10:18→20:11)
[2021-07-13] MEDS: busPIRone 10 MG TAB PO SCH ×2 (10:19→20:12)
[2021-07-13] MEDS: BUPRENORPHINE/NALOXONE 8-2MG SUBLINGUAL TABLET(SUBOXONE) SL SCH ×2 (10:19→17:13)
[2021-07-13] MEDS: NICOTINE POLACRILEX 2 MG GUM PO PRN ×2 (10:20→17:25)
--- NOTE | 2021-07-13 13:03 | MHIPNPDOC ---
[facility] Progress Note Progress Note DATE OF SERVICE: 07/13/21 HISTORY: as per ED report: "Patient is a 36 yo female who was recently released from [facility].Patient was very guarded and minimized her answers with TW. Patient requested admission as she would like to be restarted on her medication. Patient reports to science writer that she is having SI with no plan. She also reports hearing voices that tell her to hurt herself. When asked what brought her in today patient stated that things have been happening in life. When asked to elaborate patient just sat quietly in her room. Patient also told her that the father of child is trying to kill her. Patient is unable to contract for safety at this time." Interval: Patient states that she probably needs help with paranoia which is not treated with medications, this is despite her not being compliant with medications, routinely using substances such as "Sylvie", has extensive use of polysubstance abuse, reports she wants to go off her Suboxone/she can go on a benzodiazepine for anxiety symptoms, this is despite reporting that the paranoia is a #1 think she needs help with, asked to go on paliperidone due to benefits historically with treatment, agreeable to cross titration of Haldol to paliperidone. No acute physical complaints. Patient initially agreed on interview to long-term inpatient rehab, has been educated multiple times about polysubstance abuse worsening psychosis and symptoms of anxiety, she later told nursing did not want long-term inpatient rehab. VITAL SIGNS: See below. NEW TEST RESULTS: see below CURRENT MEDICATIONS: See below. MENTAL STATUS EXAMINATION: General Appearance: disheveled, blond hair, appears older than stated age, hospital scubs/clothing, avoiding eye contact Build: Thin Demeanor: Irritable Eye Contact: Avoidant Activity: Slowed Behavior: Somewhat cooperative Speech: spontaneous, reg/rate,rhythm,volume Mood: Irritable, anxious Affect: Withdrawn, blunted, irritable Thought Process: Circumstantial Thought Content (Delusions): Endorses paranoid delusions in context of polysubstance abuse Thought Content (Other): Denies currently having suicidal ideation, but states when she leaves the hospital, gets worse this puts her at risk Perception (Hallucinations): Auditory hallucinations Perception (Other): depersonalization Oriented: Awake, Alert, Oriented times three (partially) Insight: poor Judgment: Poor, precontemplative about substance use Psychosis: Psychotic Perceptions DIAGNOSES: 1. Schizoaffective disorder vs substance-induced psychotic disorder 2. Cannabis use disorder 3. Stimulant use disorder 4. Hallucinogen use disorder 5. History of opioid use disorder 6. Cluster B traits r/o malingering ASSESSMENT: Patient has very poor insight into condition, symptoms primarily rev olve around polysubstance abuse leading to multiple admissions, seeking controlled medications, very poor compliance upon discharge leading to multiple readmissions, refusing long-term inpatient rehab despite history of multiple drug induced psychotic episodes MANAGEMENT PLAN: Cross tapering off Haldol to paliperidone with plan for paliperidone IM PINZON, patient reports historically this is helped with paranoia which is her primary symptom requiring treatment. Due to polysubstance use history being the primary reason for admission it is contraindicated to start benzodiazepines at this time, also reports primary symptoms or paranoia rather than anxiety. TIME SPENT: 20 minutes. Vital Signs Vital Signs Date Time Temp Pulse Resp B/P (MAP) Pulse Ox O2 Delivery O2 Flow Rate FiO2 07/13/21 06:51 97.5 92 16 99/64 (76) 99 Room Air Laboratory Data 24H Labs Laboratory Tests 2 07/12/21 18:01: Triglycerides Level 134, Total Cholesterol 126, LDL Cholesterol 68, Non-HDL Cholesterol (LDL + VLDL) 95, Total HDL Cholesterol 31L, Cholesterol/HDL Ratio 4.064 Current Medications Current Medications Medications (Trade) Dose Ordered Sig/René Route PRN Reason Start Time Stop Time Status Last Admin Dose Admin Acetaminophen (Tylenol Tab) 650 mg Q6HP PRN PO HEADACHE or MILD DISCOMFORT 07/10/21 15:35 Al Hydrox/Mg Hydrox/Simethicone (Mylanta) 30 ml Q4HP PRN PO HEARTBURN/INDIGESTION 07/10/21 15:35 Benztropine Mesylate (Cogentin) 1 mg BID PO 07/10/21 21:00 07/13/21 10:18 Buprenorphine/ Naloxone (Suboxone 2/ 0.5mg) 1 tab DAILY SL 07/11/21 09:00 07/12/21 10:41 DC 07/12/21 07:59 Buprenorphine/ Naloxone (Suboxone 8/2mg) 1 tab BID SL 07/11/21 09:00 07/11/21 17:22 DC 07/11/21 09:53 Buprenorphine/ Naloxone (Suboxone 8/2mg) 1 tab BID@0900,1800 SL 07/11/21 18:00 07/13/21 10:19 Buspirone HCl (Buspar) 10 mg BID PO 07/10/21 21:00 07/13/21 10:19 Fluoxetine HCl (PROzac) 30 mg DAILY PO 07/11/21 09:00 07/12/21 10:44 DC 07/12/21 07:59 Gabapentin (Neurontin) 600 mg TID PO 07/10/21 16:00 07/13/21 10:18 Haloperidol (Haldol) 2 mg BID PO 07/13/21 21:00 UNV Haloperidol (Haldol) 6 mg BID PO 07/10/21 21:00 07/13/21 12:51 DC 07/13/21 10:18 Home Med (Home Med List Complete!) ASDIRECTED XX 07/10/21 16:15 07/10/21 16:43 DC Magnesium Hydroxide (Milk Of Magnesia) 30 ml DAILYPRN PRN PO CONSTIPATION 07/10/21 15:35 Nicotine (Nicoderm Cq 21mg) 1 patch DAILYPRN PRN TD NICOTINE WITHDRAWAL 07/12/21 10:25 07/12/21 14:52 DC 07/12/21 11:13 Nicotine (Nicorette) 2 mg Q4HP PRN PO NICOTINE WITHDRAWAL 07/13/21 06:00 07/13/21 10:20 Olanzapine (ZyPREXA ZYDIS) 5 mg Q6HP PRN PO ANXIETY/AGITATION 07/10/21 15:35 07/13/21 11:18 Paliperidone (Invega) 6 mg DAILY PO 07/14/21 09:00 UNV Sertraline HCl (Zoloft) 50 mg QAM PO 07/13/21 09:00 07/13/21 10:18 Trazodone HCl (Desyrel) 50 mg QHSP PRN PO INSOMNIA 07/10/21 15:35 07/12/21 20:51 Allergies Coded Allergies: No Known Allergies (Verified , 06/02/20) BRANDI ESTES MD Jul 13, 2021 13:03
[2021-07-13] MEDS: PALIPERIDONE 6 MG ER TAB (INVEGA) PO SCH (15:17)
[2021-07-13 18:00] VITALS: BP 109/73
[2021-07-13] MEDS: traZODone 50 MG TAB PO PRN (20:11)
[2021-07-14] MEDS: OLANZapine ORAL DISINTEGRATING TAB 5MG PO PRN ×2 (03:55→15:08)
[2021-07-14 06:14] VITALS: BP 108/62
[2021-07-14] MEDS: SERTRALINE HCL 50 MG TAB PO SCH (08:04)
[2021-07-14] MEDS: busPIRone 10 MG TAB PO SCH ×2 (08:04→20:02)
[2021-07-14] MEDS: BENZTROPINE 1 MG TAB PO SCH ×2 (08:05→20:02)
[2021-07-14] MEDS: BUPRENORPHINE/NALOXONE 8-2MG SUBLINGUAL TABLET(SUBOXONE) SL SCH ×2 (08:05→17:37)
[2021-07-14] MEDS: PALIPERIDONE 6 MG ER TAB (INVEGA) PO SCH (08:05)
[2021-07-14] MEDS: GABAPENTIN 300 MG CAP PO SCH ×3 (08:05→20:02)
[2021-07-14] MEDS: NICOTINE POLACRILEX 2 MG GUM PO PRN ×3 (09:24→19:12)
--- NOTE | 2021-07-14 13:40 | MHIPNPDOC ---
[facility] Progress Note Progress Note DATE OF SERVICE: 07/14/21 HISTORY: as per ED report: "Patient is a 36 yo female who was recently released from [facility]. Patient was very guarded and minimized her answers with TW. Patient requested admission as she would like to be restarted on her medication. Patient reports to sports writer that she is having SI with no plan. She also reports hearing voices that tell her to hurt herself. When asked what brought her in today patient stated that things have been happening in life. When asked to elaborate patient just sat quietly in her room. Patient also told her that the father of child is trying to kill her. Patient is unable to contract for safety at this time." Interval: Patient was seen today and discussed with her that she will be getting her Invega shot tomorrow. She was agreeable to the plan as she has in the past benefitted from this treatment plan. No acute physical complaints, denies suicidal and homicidal ideations. VITAL SIGNS: See below. NEW TEST RESULTS: See below. CURRENT MEDICATIONS: See below. MENTAL STATUS EXAMINATION: Patient is a 36-year old female, who is appears to be disheveled, blond hair, appears older than stated age, hospital scubs/clothing, avoiding eye contact Speech: Is spontaneous; regular rate and rhythm; normal volume Language skills are Thought processes including: Circumstantial Thought content: Paranoid delusions in context of polysubstance abuse (Sylvie) Judgment: Poor; precontemplative state in regards to Sylvie use Insight: Poor Orientation: x4 Mood: withdrawn Affect: withdrawn, blunted, irritable DIAGNOSES: 1. Schizoaffective disorder vs substance-induced psychotic disorder 2. Cannabis use disorder 3. Stimulant use disorder 4. Hallucinogen use disorder 5. History of opioid use disorder 6. Cluster B traits r/o malingering ASSESSMENT: Currently she has very poor insight into condition especially in regards to polysubstance abuse and schizoaffective disorder vs substance-induced psychotic disorder which lead to multiple admissions. She also has poor compliance with medications also also contributes to multiple admissions. Still refusing long-term rehab despite history of multiple drug-induced psychosis. MANAGEMENT PLAN: Cross tapering off Haldol to paliperidone with plan for IM Paliperidone injection as patient states that historically has helped with her paranoia. Will start IM Paliperidone tomorrow morning. TIME SPENT: 20 minutes. Vital Signs Vital Signs Date Time Temp Pulse Resp B/P (MAP) Pulse Ox O2 Delivery O2 Flow Rate FiO2 07/14/21 06:14 98.1 58 16 108/62 (77) 97 Room Air Current Medications Current Medications Medications (Trade) Dose Ordered Sig/René Route PRN Reason Start Time Stop Time Status Last Admin Dose Admin Acetaminophen (Tylenol Tab) 650 mg Q6HP PRN PO HEADACHE or MILD DISCOMFORT 07/10/21 15:35 Al Hydrox/Mg Hydrox/Simethicone (Mylanta) 30 ml Q4HP PRN PO HEARTBURN/INDIGESTION 07/10/21 15:35 Benztropine Mesylate (Cogentin) 1 mg BID PO 07/10/21 21:00 07/14/21 08:05 Buprenorphine/ Naloxone (Suboxone 2/ 0.5mg) 1 tab DAILY SL 07/11/21 09:00 07/12/21 10:41 DC 07/12/21 07:59 Buprenorphine/ Naloxone (Suboxone 8/2mg) 1 tab BID SL 07/11/21 09:00 07/11/21 17:22 DC 07/11/21 09:53 Buprenorphine/ Naloxone (Suboxone 8/2mg) 1 tab BID@0900,1800 SL 07/11/21 18:00 07/14/21 08:05 Buspirone HCl (Buspar) 10 mg BID PO 07/10/21 21:00 07/14/21 08:04 Fluoxetine HCl (PROzac) 30 mg DAILY PO 07/11/21 09:00 07/12/21 10:44 DC 07/12/21 07:59 Gabapentin (Neurontin) 600 mg TID PO 07/10/21 16:00 07/14/21 08:05 Haloperidol (Haldol) 2 mg BID PO 07/13/21 21:00 07/14/21 08:25 DC 07/14/21 08:04 Haloperidol (Haldol) 6 mg BID PO 07/10/21 21:00 07/13/21 12:51 DC 07/13/21 10:18 Home Med (Home Med List Complete!) ASDIRECTED XX 07/10/21 16:15 07/10/21 16:43 DC Magnesium Hydroxide (Milk Of Magnesia) 30 ml DAILYPRN PRN PO CONSTIPATION 07/10/21 15:35 Nicotine (Nicoderm Cq 21mg) 1 patch DAILYPRN PRN TD NICOTINE WITHDRAWAL 07/12/21 10:25 07/12/21 14:52 DC 07/12/21 11:13 Nicotine (Nicorette) 2 mg Q4HP PRN PO NICOTINE WITHDRAWAL 07/13/21 06:00 07/14/21 09:24 Olanzapine (ZyPREXA ZYDIS) 5 mg Q6HP PRN PO ANXIETY/AGITATION 07/10/21 15:35 07/14/21 03:55 Paliperidone (Invega) 6 mg DAILY PO 07/13/21 09:00 07/14/21 08:05 Paliperidone Palmitate (Invega Sustenna) 234 mg Q30D IM 07/15/21 09:00 Sertraline HCl (Zoloft) 50 mg QAM PO 07/13/21 09:00 07/14/21 08:04 Trazodone HCl (Desyrel) 50 mg QHSP PRN PO INSOMNIA 07/10/21 15:35 07/13/21 20:11 Allergies Coded Allergies: No Known Allergies (Verified , 06/02/20) GME ATTESTATION My faculty preceptor for this patient encounter was physically present during the encounter and was fully available. All aspects of the patient interview, examination, medical decision making process, and medical care plan development were reviewed and approved by the faculty preceptor. The faculty preceptor is a pederson and concurs with the plan as stated in the body of this note and will attest to such by his/her cosignature. Gladys Alatorre DO Jul 14, 2021 13:40
[2021-07-14 18:06] VITALS: BP 123/77
[2021-07-14] MEDS: traZODone 50 MG TAB PO PRN (20:03)
[2021-07-14 20:30] VITALS: BP 140/88
[2021-07-14] MEDS ORDERED: cefTRIAXone SOD 1 GM in D5W MINI-BAG PLUS 50 ML IV SCH (21:50)
[2021-07-14] MEDS: BACTRIM 160MG/800MG DS TAB PO SCH (22:39)
[2021-07-15] MEDS: OLANZapine ORAL DISINTEGRATING TAB 5MG PO PRN
[2021-07-15 06:24] VITALS: BP 112/56
[2021-07-15] MEDS: GABAPENTIN 300 MG CAP PO SCH (08:43)
[2021-07-15] MEDS: BUPRENORPHINE/NALOXONE 8-2MG SUBLINGUAL TABLET(SUBOXONE) SL SCH (08:43)
[2021-07-15] MEDS: busPIRone 10 MG TAB PO SCH (08:43)
[2021-07-15] MEDS: BACTRIM 160MG/800MG DS TAB PO SCH (08:43)
[2021-07-15] MEDS: NICOTINE POLACRILEX 2 MG GUM PO PRN (08:43)
[2021-07-15] MEDS: SERTRALINE HCL 50 MG TAB PO SCH (08:43)
[2021-07-15] MEDS: PALIPERIDONE 6 MG ER TAB (INVEGA) PO SCH (08:43)
[2021-07-15] MEDS: BENZTROPINE 1 MG TAB PO SCH (08:43)
[2021-07-15] MEDS ORDERED: PALIPERIDONE PALMITATE 234MG/1.5ML INJ (INVEGA)(FREE PSY INPT ONLY) IM SCH (09:00)
[2021-07-15] MEDS ORDERED: PALI1TAB3 PO (10:15)
[2021-07-15] MEDS ORDERED: SERT50TA29 PO (10:15)
[2021-07-15] MEDS ORDERED: INVE234I IM (10:15)
[2021-07-15] MEDS ORDERED: BACTDSTA PO (10:15)
[2021-07-15] MEDS ORDERED: BUSP10TA PO (10:15)
[2021-07-15] MEDS ORDERED: NICO2GUM PO (10:15)
--- NOTE | 2021-07-15 12:16 | MHDSPDOC ---
[facility] Discharge Summary Discharge Summary DATE OF ADMISSION: Jul 10, 2021 at 15:34 DATE OF DISCHARGE: 07/15/2021 Discharge diagnoses: Schizoaffective disorder, depressed type Substance induced psychotic disorder Cannabis use disorder Stimulant use disorder Hallucinogen use disorder History of opioid use disorder Cluster B traits Reason for admission: Patient has multiple admissions in context of substance abuse including "Sylvie", on this occasion as per ED report: "Patient is a 36 yo female who was recently released from [facility].Patient was very guarded and minimized her answers with TW. Patient requested admission as she would like to be restarted on her medication. Patient reports to adjusto writer operator that she is having SI with no plan. She also reports hearing voices that tell her to hurt herself. When asked what brought her in today patient stated that things have been happening in life. When asked to elaborate patient just sat quietly in her room. Patient also told her that the father of child is trying to kill her. Patient is unable to contract for safety at this time." Vital signs: See below Consultants involved: See medical H&P by hospitalist Treatment and progress on the unit: Patient was admitted to the [facility] on a 9.39 legal status and was afforded the following treatment modalities: 1. Individual therapy 2. Group therapy 3. Medication management 4. Milieu therapy 5. Safe environment Hospital course: Patient was admitted to the [facility] on a 9.39 legal status. Was medically cleared prior to coming up to the [facility]. Patient initially was asking for benzodiazepines having Suboxone decreased, was made aware that did not feel comfortable prescribing this medication, explained substance history and that primary presentation was symptoms of paranoia, persistent delusion of feeling her daughter was replaced by an impostor, consistent with possible Capgr[place] delusion, states that this causes her distress. Was restarted on Haldol but then patient was cross titrated to paliperidone and she reported limited benefit with Haldol, was agreeable to IM PINZON, was determined that she had received Invega Sustenna 234 mg last time June 20, 2021 at [facility], was confirmed, was continued on paliperidone 6 mg p.o. daily and given to every 4 mg IM PINZON 07/15/2021 prior to discharge, tolerated injection without pain or swelling had not had any allergies to medication, patient was also continue home medications: BuSpar 10 mg p.o. twice daily for anxiety, sertraline 50 mg p.o. daily for depression, gabapentin 600 mg 3 times daily for anxiety, patient found medications beneficial and tolerated them well. Denies mood anxiety and intrusive thoughts which improved with treatment. Patient attended groups daily during stay. Patient symptoms improved with treatment. On day of discharge patient denied depression, anxiety, insomnia, suicidal or homicidal ideations intent or plan, hallucinations, delusions. Patient was discharged home with follow-up. Patient felt safe for discharge. Was offered continued stay on voluntary admission but refused. Discharge assessment: On today's interview patient is alert and oriented, dressed appropriately. Hygiene and grooming is well-kept. Smiles on approach and is pleasant and engaged on interview. Denies depression and anxiety. Denies suicidal homicidal ideation, intent or planning. Denies and is not observed with vince or psychotic symptoms of delusions, hallucinations, bizarre thinking, obsessions, paranoia, ruminations, illogical thoughts, flight of ideas or having poor insight or judgment. Patient has normal mentation, declines further hospitalization of voluntary status and meets criteria for discharge today, patient encouraged to return the hospital if symptoms worsen or change and encouraged to call unit if they feel they need provider's questions to be answered or help with medications or care. Mental status: General Appearance: Improved hygiene, blond hair, appears older than stated age, hospital scubs/clothing, sitting in bed, improved eye contact Build: Thin Demeanor: Calm Eye Contact: Improved Activity: Slowed Behavior: cooperative Speech: spontaneous, reg/rate,rhythm,volume Mood: "I'm fine" Affect: Euthymic, somewhat withdrawn at baseline, bored, not paranoid or anxious or internally preoccupied Thought Process: Linear, logical, goal-directed Thought Content (Delusions): Endorses paranoid delusions in context of polysubstance abuse, not currently having symptoms Thought Content (Other): Denies suicidal ideations, intent or plan. Denies homicidal ideations, intent or plan. Perception (Hallucinations): Denies Perception (Other): depersonalization Oriented: Awake, Alert, Oriented times three (partially) Insight: Fair Judgment: Fair Psychosis: Currently not endorsing psychotic Perceptions Medications on discharge: see medication reconciliation: CSSRS on discharge: Wish to be : No nonspecific active suicidal thoughts: No lifetime attempts: History of overdoses interrupted attempts: 0 aborted attempts: 0 preparatory acts or behavior: None Taking into consideration safety state, status, safety plan, protective factors, modifiable, non-modifiable risk factors patient is at low risk on discharge for suicide according to [facility] suicide evaluation. PLAN/FOLLOWUP ARRANGEMENTS: Follow Up Care Education Label * Mental Health Appt 1 * Mental Health [facility] * Established With This Provider Yes * Therapist [place]NE * Date Jul 17, 2021 * Time 11:00 * Address of Clinic or Practice [address] [place] [address] * Follow Up Care Education Label * Medical * Additional information PATIENT DECLINED MEDICAL FOLLOW UP CARE. The amount of time spent in the coordination of care for this patient was approximately 35 minutes. ETOH/Disorder Med Rx ETOH/DRUG DISORDER RX: Offrd @ d/c & pt refused Vital Signs/I&Os Vital Signs Date Time Temp Pulse Resp B/P (MAP) Pulse Ox O2 Delivery O2 Flow Rate FiO2 07/15/21 06:24 97.7 77 16 112/56 (74) 94 Room Air Laboratory Data Labs 24H Laboratory Tests 2 07/14/21 21:24: Troponin I High Sensitivity 3.0 Microbiology Microbiology 07/12/21 Urine Culture - Final, Complete Klebsiella Pneumoniae Medications Scheduled Atomoxetine Hydrochloride (Strattera) 60 Mg Capsule, 60 MG PO DAILY, (Reported) Benztropine Mesylate (Benztropine Mesylate) 1 Mg Tablet, 1 MG PO BID, (Reported) Buprenorphine HCl/Naloxone HCl (Suboxone 2 mg-0.5 mg Sl Film) 1 Each Film, 1 STRIP SL DAILY, (Reported) Buprenorphine HCl/Naloxone HCl (Buprenorphin-Naloxon 8-2 mg Sl) 1 Each Tab.subl, 1 TAB SL BID for ., (Reported) QAM DOSE TAKEN WITH 2MG-0.5MG FOR TOTAL OF 10MG QAM Buspirone HCl (Buspirone HCl) 10 Mg Tablet, 10 MG PO BID for anxiety, #14 Gabapentin (Gabapentin) 600 Mg Tablet, 600 MG PO TID, (Reported) Oxybutynin Chloride (Oxybutynin Chloride) 5 Mg Tablet, 5 MG PO BID, (Reported) Paliperidone (Paliperidone ER) 6 Mg Tab.er.24, 6 MG PO DAILY for psychosis, #7 Paliperidone Palmitate (Invega Sustenna) 234 Mg/1.5 Ml Syringe, 234 MG IM Q30D for psychosis, #1 Sertraline HCl (Sertraline HCl) 50 Mg Tablet, 50 MG PO QAM for mood, #7 Sulfamethoxazole/Trimethoprim (Sulfamethoxazole-Tmp Ds Tablet) 1 Each Tablet, 1 TAB PO BID for infection, #14 Topiramate (Topiramate) 100 Mg Tablet, 100 MG PO DAILY, (Reported) Trazodone HCl (Trazodone HCl) 50 Mg Tablet, 50 MG PO QHS, (Reported) Scheduled PRN Docusate Sodium (Docusate Sodium) 100 Mg Capsule, 100 MG PO DAILY PRN for CONSTIPATION, (Reported) Nicotine Polacrilex (Nicotine Gum) 2 Mg Gum, 2 MG PO Q4HP PRN for NICOTINE WITHDRAWAL, #21 Allergies Coded Allergies: No Known Allergies (Verified , 06/02/20) BRANDI ESTES MD Jul 15, 2021 12:16
== END 2021-07-15 11:44 | disposition home or self-care (01) | DRG 750 ==
LOC: EDBD 07:14 → M ED 07:14 → M ED INP 07-10 15:34 → M PSY 07-10 16:15
PROVIDERS: ADMIT Student in an Organized Health Care Education/Training Program; ATTEND Student in an Organized Health Care Education/Training Program
DX: F25.1 Schizoaffective disorder, depressive type (principal); F12.10 Cannabis abuse, uncomplicated; F15.159 Other stimulant abuse with stimulant-induced psychotic disorder, unspecified; F16.159 Hallucinogen abuse with hallucinogen-induced psychotic disorder, unspecified; F60.89 Other specific personality disorders; Z20.822 Contact with and (suspected) exposure to COVID-19; R45.851 Suicidal ideations; F41.9 Anxiety disorder, unspecified; Z91.51 Personal history of suicidal behavior; G40.909 Epilepsy, unspecified, not intractable, without status epilepticus; G43.909 Migraine, unspecified, not intractable, without status migrainosus; Z79.899 Other long term (current) drug therapy

== ENCOUNTER 2021-07-21 18:46 | Inpatient (IN) | payer OTHER ==
[~2021-07-21] VITALS: Ht 154.9 cm; Wt 59.5 kg
[~2021-07-21 18:46] MED LIST changes: +BACTDSTA PO; +FLUO-96 PO; -FLUO10CA16 PO; +FLUO10CA18 PO; -FLUO20CA20 PO; -HALO5TA PO; +HALO5TAB33 PO; +NICO2GUM PO; +PALI1TAB3 PO; +TIZA10TA PO; -TIZA4TAB4 PO; +TRAZ-186 PO
[2021-07-21 21:10] LABS: HEMATOCRIT 34.9 % (36.0-47.0); HEMOGLOBIN 11.6 g/dl (12.0-15.5); MEAN CORPUSCULAR HEMOGLOBIN 30.8 pg (27.0-33.0); MEAN CORPUSCULAR HGB CONC 33.2 g/dl (32.0-36.5); MEAN CORPUSCULAR VOLUME 92.6 fl (80.0-96.0); PLATELET COUNT, AUTOMATED 176 10^3/uL (150-450); RED BLOOD COUNT 3.77 10^6/uL (4.00-5.40); WHITE BLOOD COUNT 4.7 10^3/uL (4.0-10.0)
[2021-07-21 21:46] LABS: HCG, SERUM QUALITATIVE NEGATIVE (NEGATIVE)
[2021-07-21 23:17] LABS: ACETAMINOPHEN LEVEL < 2.0 UG/ML (10.0-30.0); ALBUMIN 3.5 GM/DL (3.2-5.2); ALT/SGPT 69 U/L (12-78); BILIRUBIN,DIRECT 0.1 MG/DL (0.0-0.2); BILIRUBIN,TOTAL 0.3 MG/DL (0.2-1.0); BLOOD UREA NITROGEN 9 MG/DL (7-18); CALCIUM LEVEL 8.1 MG/DL (8.5-10.1); CARBON DIOXIDE LEVEL 23 MEQ/L (21-32); CHLORIDE LEVEL 116 MEQ/L (98-107); CREATININE FOR GFR 0.67 MG/DL (0.55-1.30); ETHYL ALCOHOL (ETHANOL) < 0.003 % (0.000-0.010); GLOMERULAR FILTRATION RATE > 60.0 (>60); GLUCOSE, FASTING 103 MG/DL (70-100); POTASSIUM SERUM 3.5 MEQ/L (3.5-5.1); SALICYLATE LEVEL 2.6 MG/DL (5.0-30.0); SODIUM LEVEL 145 MEQ/L (136-145); TOTAL PROTEIN 7.1 GM/DL (6.4-8.2)
[2021-07-22] VITALS (23 sets, daily range): BP systolic 108–161; BP diastolic 60–94; O2SAT 98
[2021-07-22] MEDS ORDERED: LORazepam 2 MG/ML VIAL IV STA (00:58)
[2021-07-22 01:01] LABS: AMPHETAMINES LEVEL URINE POSITIVE (NEGATIVE); BARBITURATES URINE NEGATIVE (NEGATIVE); BENZODIAZEPINES URINE NEGATIVE (NEGATIVE); CANNABINOIDS URINE NEGATIVE (NEGATIVE); COCAINE METABOLITE URINE NEGATIVE (NEGATIVE); METHADONE URINE NEGATIVE (NEGATIVE); OPIATES URINE POSITIVE (NEGATIVE); PHENCYCLIDINE URINE NEGATIVE (NEGATIVE)
[2021-07-22] MEDS ORDERED: LORazepam 2 MG/ML VIAL As Ordered ONE (01:03)
[2021-07-22] MEDS ORDERED: SUCCINYLCHOLINE INJ 200 MG/10 ML VIAL (J0330) IV ONE (01:05)
[2021-07-22] MEDS ORDERED: propofoL 1,000 MG in IV 1 EA IV SCH (01:05)
[2021-07-22] MEDS ORDERED: ETOMIDATE INJ 20MG/10ML VIAL IV ONE (01:05)
[2021-07-22] MEDS ORDERED: levETIRAcetam INJection 1,000 MG in D5W 100 ML IV ONE (01:20)
[2021-07-22] MEDS ORDERED: MIDAZOLAM INJ 2MG/2ML VIAL (J2250 PER 1MG) IV ONE (01:45)
[2021-07-22 01:58] LABS: ABG BASE EXCESS -7.2 (-2.0-2.0); ABG HCO3 18.8 MEQ/L (22.0-26.0); ABG O2 SATURATION 99.4 % (95.0-99.0); ABG PARTIAL PRESSURE O2 330.9 mmHg (75.0-100.0); ABG STANDARD HCO3 18.6 MEQ/L (22.0-26.0); ABG TOTAL CO2 20.1 MEQ/L (22.0-29.0); ABG pH (ARTERIAL) 7.291 UNITS (7.350-7.450)
[2021-07-22 02:06] LABS: RSV AMPLIFICATION NEGATIVE (NEGATIVE)
[2021-07-22] MEDS: propofoL 1,000 MG in IV 1 EA IV SCH ×3 (03:40→10:53)
[2021-07-22] MEDS ORDERED: PATIENT COMMENT (04:01)
[2021-07-22] MEDS ORDERED: PALI1TAB3 PO (04:01)
[2021-07-22] MEDS ORDERED: SERT50TA29 PO (04:01)
[2021-07-22] MEDS ORDERED: BACT800T5 PO (04:01)
[2021-07-22] MEDS ORDERED: NICO2GUM47 PO (04:01)
[2021-07-22] MEDS ORDERED: BUSP10TA PO (04:01)
[2021-07-22] MEDS ORDERED: INVE234I IM (04:01)
[2021-07-22] MEDS ORDERED: HOME MED LIST COMPLETE! XX SCH (04:10)
[2021-07-22] MEDS: KCL 40MEQ IN D5/0.45NS 1000ML 1,000 ML IV SCH ×3 (04:57→20:02)
[2021-07-22] MEDS: MIDAZOLAM INJ 2MG/2ML VIAL (J2250 PER 1MG) IV PRN ×6 (04:57→10:44)
[2021-07-22] MEDS: MORPHINE 2 MG/ML 1ML VIAL (J2270) IV PRN ×3 (04:57→20:02)
[2021-07-22] MEDS ORDERED: HEPARIN SOD (PORCINE) 5000UNITS/ML 1ML VIAL/SYRINGE SC SCH (06:00)
[2021-07-22] MEDS ORDERED: IPRATROPIUM 0.5MG/ALBUTEROL 2.5MG INH SOL UD 3ML (DUONEB) NEB SCH (08:00)
[2021-07-22] MEDS ORDERED: CHLORHEXIDINE GLUCONATE 0.12 % 15ML UDC (PERIDEX ORAL RINSE) MT SCH (09:00)
[2021-07-22 09:26] LABS: ABG BASE EXCESS -6.2 (-2.0-2.0); ABG HCO3 18.4 MEQ/L (22.0-26.0); ABG O2 SATURATION 98.8 % (95.0-99.0); ABG PARTIAL PRESSURE CO2 33.3 mmHg (35.0-45.0); ABG PARTIAL PRESSURE O2 162.9 mmHg (75.0-100.0); ABG STANDARD HCO3 19.4 MEQ/L (22.0-26.0); ABG TOTAL CO2 19.4 MEQ/L (22.0-29.0)
[2021-07-22 09:31] LABS: BASO % 0.8 % (0.0-1.0); EOS # 0.1 10^3/uL (0.0-0.5); EOS % 2.1 % (0.0-3.0); HEMATOCRIT 32.7 % (36.0-47.0); LYMPH # 2.2 10^3/uL (1.5-5.0); LYMPH % 40.5 % (24.0-44.0); MEAN CORPUSCULAR HEMOGLOBIN 30.7 pg (27.0-33.0); MEAN CORPUSCULAR HGB CONC 33.6 g/dl (32.0-36.5); MEAN CORPUSCULAR VOLUME 91.3 fl (80.0-96.0); MONO # 0.4 10^3/uL (0.0-0.8); NEUTROPHILS # 2.6 10^3/uL (1.5-8.5); NEUTROPHILS % 49.4 % (36.0-66.0); PLATELET COUNT, AUTOMATED 154 10^3/uL (150-450); RED BLOOD COUNT 3.58 10^6/uL (4.00-5.40); WHITE BLOOD COUNT 5.3 10^3/uL (4.0-10.0)
[2021-07-22 09:59] LABS: ALBUMIN 3.2 GM/DL (3.2-5.2); ALT/SGPT 63 U/L (12-78); BILIRUBIN,TOTAL 0.2 MG/DL (0.2-1.0); BLOOD UREA NITROGEN 6 MG/DL (7-18); CALCIUM LEVEL 8.3 MG/DL (8.5-10.1); CARBON DIOXIDE LEVEL 21 MEQ/L (21-32); CHLORIDE LEVEL 119 MEQ/L (98-107); CHOLESTEROL LEVEL 126 MG/DL (< 200); CPK CREATINE PHOSPHOKINASE 593 U/L (26-192); CREATININE FOR GFR 0.56 MG/DL (0.55-1.30); GLOMERULAR FILTRATION RATE > 60.0 (>60); GLUCOSE, FASTING 141 MG/DL (70-100); LDH LACTATE DEHYDROGENASE 260 U/L (84-246); POTASSIUM SERUM 3.5 MEQ/L (3.5-5.1); SODIUM LEVEL 145 MEQ/L (136-145); TOTAL PROTEIN 6.5 GM/DL (6.4-8.2); TRIGLYCERIDES LEVEL 104 MG/DL (<150)
[2021-07-22] MEDS ORDERED: REFRIGERATOR IV KEYS XX PRN (10:25)
[2021-07-22] MEDS: PANTOPRAZOLE 40MG VIAL (C9113 PER 1) IV SCH (10:37)
[2021-07-22] MEDS: levETIRAcetam INJection 500 MG in D5W MINI-BAG PLUS 100 ML IV SCH ×2 (10:41→20:02)
[2021-07-22] MEDS ORDERED: MIDAZOLAM HCL 100 MG in D5W 80 ML IV SCH (12:00)
[2021-07-22 13:40] LABS: HEPATITIS B SURFACE ANTIGEN NEGATIVE (NEGATIVE)
[2021-07-22 14:08] LABS: HEPATITIS B CORE ANTIBODY IGM NEGATIVE (NEGATIVE)
[2021-07-22 14:25] LABS: HEPATITIS C VIRUS ABY INDEX > 11.0 INDEX (<0.8)
[2021-07-22] MEDS ORDERED: SODIUM PHOSPHATE INJ 30 MMOL in D5W 500 ML IV ONE (15:00)
[2021-07-22 21:51] LABS: HEMATOCRIT 33.7 % (36.0-47.0); HEMOGLOBIN 11.4 g/dl (12.0-15.5); MEAN CORPUSCULAR HEMOGLOBIN 30.6 pg (27.0-33.0); MEAN CORPUSCULAR HGB CONC 33.8 g/dl (32.0-36.5); MEAN CORPUSCULAR VOLUME 90.6 fl (80.0-96.0); PLATELET COUNT, AUTOMATED 158 10^3/uL (150-450); RED BLOOD COUNT 3.72 10^6/uL (4.00-5.40); WHITE BLOOD COUNT 10.8 10^3/uL (4.0-10.0)
[2021-07-22 22:16] LABS: BLOOD UREA NITROGEN 3 MG/DL (7-18); CARBON DIOXIDE LEVEL 19 MEQ/L (21-32); CHLORIDE LEVEL 113 MEQ/L (98-107); CREATININE FOR GFR 0.68 MG/DL (0.55-1.30); GLOMERULAR FILTRATION RATE > 60.0 (>60); GLUCOSE, FASTING 117 MG/DL (70-100); POTASSIUM SERUM 3.3 MEQ/L (3.5-5.1); SODIUM LEVEL 141 MEQ/L (136-145)
[2021-07-22 22:20] LABS: APPEARANCE, URINE CLEAR (CLEAR); BACTERIA, URINE AUTO NEGATIVE (NEGATIVE); BILIRUBIN, URINE AUTO NEGATIVE (NEGATIVE); BLOOD, URINE BLOOD 2+ (NEGATIVE); COLOR, URINE STRAW (YELLOW); GLUCOSE, URINE (UA) AUTO NEGATIVE (NEGATIVE); KETONE, URINE AUTO NEGATIVE (NEGATIVE); LEUKOCYTE ESTERASE, URINE AUTO NEGATIVE (NEGATIVE); MUCUS, URINE SMALL (NEGATIVE); NITRITE, URINE AUTO NEGATIVE (NEGATIVE); PROTEIN, URINE AUTO NEGATIVE (NEGATIVE); RBC, URINE AUTO 5 /HPF (0-3); SPECIFIC GRAVITY URINE AUTO 1.009 (1.002-1.035); SQUAMOUS EPITHELIAL CELL UR AU 4 /HPF (0-6); UROBILINOGEN, URINE AUTO 0.2 mg/dL (0.0-2.0); WBC, URINE AUTO 1 /HPF (0-3)
[2021-07-22] MEDS: ACETAMINOPHEN TAB 650MG DOSE (2X325MG) PO PRN (22:35)
[2021-07-22] MEDS ORDERED: VANCOMYCIN HCL 1,000 MG, VIAL MATE ADAPTER 1 EACH in NS 250 ML IV SCH (22:45)
[2021-07-22] MEDS ORDERED: VANCOMYCIN HCL 750 MG, VIAL MATE ADAPTER 1 EACH in NS 250 ML IV ONE (23:00)
[2021-07-23] VITALS (7 sets, daily range): BP systolic 108–129; BP diastolic 60–78
[2021-07-23] MEDS ORDERED: VANCOMYCIN HCL 500 MG in D5W MINI-BAG PLUS 100 ML IV ONE ×2
[2021-07-23] MEDS: KCL 40MEQ IN D5/0.45NS 1000ML 1,000 ML IV SCH ×4 (00:15→15:14)
[2021-07-23] MEDS: ACETAMINOPHEN TAB 650MG DOSE (2X325MG) PO PRN ×2 (06:33→18:46)
[2021-07-23 07:29] LABS: BASO % 0.3 % (0.0-1.0); EOS # 0.1 10^3/uL (0.0-0.5); EOS % 1.2 % (0.0-3.0); HEMATOCRIT 33.8 % (36.0-47.0); HEMOGLOBIN 11.7 g/dl (12.0-15.5); LYMPH % 9.1 % (24.0-44.0); MEAN CORPUSCULAR HEMOGLOBIN 31.1 pg (27.0-33.0); MEAN CORPUSCULAR HGB CONC 34.6 g/dl (32.0-36.5); MEAN CORPUSCULAR VOLUME 89.9 fl (80.0-96.0); MONO # 0.7 10^3/uL (0.0-0.8); MONO % 5.9 % (2.0-8.0); NEUTROPHILS # 9.5 10^3/uL (1.5-8.5); NEUTROPHILS % 83.2 % (36.0-66.0); PLATELET COUNT, AUTOMATED 169 10^3/uL (150-450); RED BLOOD COUNT 3.76 10^6/uL (4.00-5.40); WHITE BLOOD COUNT 11.4 10^3/uL (4.0-10.0)
[2021-07-23 07:56] LABS: ALBUMIN 3.1 GM/DL (3.2-5.2); ALT/SGPT 73 U/L (12-78); BILIRUBIN,TOTAL 0.5 MG/DL (0.2-1.0); BLOOD UREA NITROGEN 3 MG/DL (7-18); CALCIUM LEVEL 7.9 MG/DL (8.5-10.1); CARBON DIOXIDE LEVEL 21 MEQ/L (21-32); CHLORIDE LEVEL 112 MEQ/L (98-107); CHOLESTEROL LEVEL 115 MG/DL (< 200); CPK CREATINE PHOSPHOKINASE 304 U/L (26-192); CREATININE FOR GFR 0.62 MG/DL (0.55-1.30); GLOMERULAR FILTRATION RATE > 60.0 (>60); GLUCOSE, FASTING 117 MG/DL (70-100); LDH LACTATE DEHYDROGENASE 278 U/L (84-246); PHOSPHORUS LEVEL 2.5 MG/DL (2.5-4.9); POTASSIUM SERUM 3.5 MEQ/L (3.5-5.1); SODIUM LEVEL 140 MEQ/L (136-145); TOTAL PROTEIN 6.8 GM/DL (6.4-8.2); TRIGLYCERIDES LEVEL 56 MG/DL (<150)
[2021-07-23] MEDS: VANCOMYCIN HCL 750 MG, VIAL MATE ADAPTER 1 EACH in NS 250 ML IV SCH ×2 (08:11→16:43)
[2021-07-23] MEDS ORDERED: SERTRALINE HCL 50 MG TAB PO SCH (09:00)
[2021-07-23] MEDS ORDERED: busPIRone 10 MG TAB PO SCH (09:00)
[2021-07-23] MEDS: PANTOPRAZOLE 40MG VIAL (C9113 PER 1) IV SCH (09:17)
[2021-07-23] MEDS: ENOXAPARIN 40MG/0.4ML SYRINGE (J1650 PER 10MG) SC SCH (09:17)
[2021-07-23] MEDS: levETIRAcetam INJection 500 MG in D5W MINI-BAG PLUS 100 ML IV SCH ×2 (09:17→21:36)
[2021-07-23] MEDS: BUPRENORPHINE/NALOXONE 8-2MG SUBLINGUAL TABLET(SUBOXONE) SL SCH ×2 (12:38→21:19)
[2021-07-23] MEDS: GABAPENTIN 300 MG CAP PO SCH ×3 (12:38→21:19)
[2021-07-23] MEDS: BUPRENORPHINE/NALOXONE 2-0.5MG SUBLINGUAL TABLET(SUBOXONE) SL SCH (15:02)
[2021-07-23] MEDS: TOPIRAMATE (TopAMAX) 100 MG TAB PO SCH (15:09)
[2021-07-23] MEDS ORDERED: cefTRIAXone SOD 2 GM in D5W MINI-BAG PLUS 50 ML IV SCH (16:00)
[2021-07-23 16:18] LABS: APPEARANCE, CSF CLEAR (CLEAR); COLOR, CSF COLORLESS (COLORLESS); CSF TUBE# CELL CNT TUBE 1
[2021-07-23 16:43] LABS: CSF TUBE# GLU TUBE 1; CSF TUBE# TP TUBE 1; GLUCOSE CSF 73 MG/DL (40-75); TOTAL PROTEIN,CSF 24 MG/DL (15-45)
[2021-07-24] VITALS: BP 115/72
[2021-07-24] MEDS: KCL 40MEQ IN D5/0.45NS 1000ML 1,000 ML IV SCH ×2 (00:30→09:18)
[2021-07-24] MEDS: VANCOMYCIN HCL 750 MG, VIAL MATE ADAPTER 1 EACH in NS 250 ML IV SCH (00:56)
[2021-07-24 05:56] LABS: BASO % 0.4 % (0.0-1.0); EOS # 0.4 10^3/uL (0.0-0.5); EOS % 5.5 % (0.0-3.0); HEMATOCRIT 29.4 % (36.0-47.0); HEMOGLOBIN 9.8 g/dl (12.0-15.5); LYMPH # 1.7 10^3/uL (1.5-5.0); LYMPH % 24.7 % (24.0-44.0); MEAN CORPUSCULAR HEMOGLOBIN 30.9 pg (27.0-33.0); MEAN CORPUSCULAR HGB CONC 33.3 g/dl (32.0-36.5); MEAN CORPUSCULAR VOLUME 92.7 fl (80.0-96.0); MONO # 0.4 10^3/uL (0.0-0.8); MONO % 5.4 % (2.0-8.0); NEUTROPHILS # 4.4 10^3/uL (1.5-8.5); NEUTROPHILS % 63.7 % (36.0-66.0); PLATELET COUNT, AUTOMATED 138 10^3/uL (150-450); RED BLOOD COUNT 3.17 10^6/uL (4.00-5.40); WHITE BLOOD COUNT 6.9 10^3/uL (4.0-10.0)
[2021-07-24] MEDS ORDERED: VANCOMYCIN HCL 1,000 MG, VIAL MATE ADAPTER 1 EACH in NS 250 ML IV SCH (06:00)
[2021-07-24 06:30] LABS: ALBUMIN 2.7 GM/DL (3.2-5.2); ALT/SGPT 72 U/L (12-78); BILIRUBIN,TOTAL 0.1 MG/DL (0.2-1.0); BLOOD UREA NITROGEN 8 MG/DL (7-18); CALCIUM LEVEL 7.6 MG/DL (8.5-10.1); CARBON DIOXIDE LEVEL 19 MEQ/L (21-32); CHLORIDE LEVEL 117 MEQ/L (98-107); CHOLESTEROL LEVEL 92 MG/DL (< 200); CPK CREATINE PHOSPHOKINASE 123 U/L (26-192); CREATININE FOR GFR 0.53 MG/DL (0.55-1.30); GLOMERULAR FILTRATION RATE > 60.0 (>60); GLUCOSE, FASTING 143 MG/DL (70-100); LDH LACTATE DEHYDROGENASE 203 U/L (84-246); MAGNESIUM LEVEL 1.4 MG/DL (1.8-2.4); PHOSPHORUS LEVEL 2.3 MG/DL (2.5-4.9); POTASSIUM SERUM 3.7 MEQ/L (3.5-5.1); SODIUM LEVEL 143 MEQ/L (136-145); TOTAL PROTEIN 5.7 GM/DL (6.4-8.2); TRIGLYCERIDES LEVEL 50 MG/DL (<150)
[2021-07-24 07:49] VITALS: BP 125/79
[2021-07-24] MEDS: SERTRALINE HCL 50 MG TAB PO SCH (09:00)
[2021-07-24] MEDS: levETIRAcetam INJection 500 MG in D5W MINI-BAG PLUS 100 ML IV SCH ×2 (09:00→09:18)
[2021-07-24] MEDS: BUPRENORPHINE/NALOXONE 2-0.5MG SUBLINGUAL TABLET(SUBOXONE) SL SCH (09:16)
[2021-07-24] MEDS: BUPRENORPHINE/NALOXONE 8-2MG SUBLINGUAL TABLET(SUBOXONE) SL SCH ×2 (09:16→20:01)
[2021-07-24] MEDS: TOPIRAMATE (TopAMAX) 100 MG TAB PO SCH (09:16)
[2021-07-24] MEDS: GABAPENTIN 300 MG CAP PO SCH ×3 (09:17→20:01)
[2021-07-24] MEDS: ENOXAPARIN 40MG/0.4ML SYRINGE (J1650 PER 10MG) SC SCH (09:18)
[2021-07-24] MEDS ORDERED: MAGNESIUM OXIDE 400MG TAB (MAG-OX) PO ONE (11:00)
[2021-07-24] MEDS: levETIRAcetam 250MG TABLET (KEPPRA) PO SCH ×2 (11:24→20:01)
[2021-07-24] MEDS ORDERED: K-PHOS ORIGINAL (POT.ACID PHOSPHATE) 500MG TAB PO ONE (12:00)
[2021-07-24 12:45] VITALS: BP 125/66
[2021-07-24 16:40] VITALS: BP 128/76
[2021-07-24 22:00] VITALS: BP 121/73
[2021-07-25 06:00] VITALS: BP 107/66
[2021-07-25] MEDS: GABAPENTIN 300 MG CAP PO SCH (08:14)
[2021-07-25] MEDS: levETIRAcetam 250MG TABLET (KEPPRA) PO SCH (08:14)
[2021-07-25] MEDS: TOPIRAMATE (TopAMAX) 100 MG TAB PO SCH (08:14)
[2021-07-25] MEDS: ENOXAPARIN 40MG/0.4ML SYRINGE (J1650 PER 10MG) SC SCH ×2 (08:14→08:17)
[2021-07-25] MEDS: BUPRENORPHINE/NALOXONE 2-0.5MG SUBLINGUAL TABLET(SUBOXONE) SL SCH (08:14)
[2021-07-25] MEDS: SERTRALINE HCL 50 MG TAB PO SCH (08:14)
[2021-07-25] MEDS: BUPRENORPHINE/NALOXONE 8-2MG SUBLINGUAL TABLET(SUBOXONE) SL SCH (08:14)
[2021-07-25] MEDS ORDERED: KEPP1TAB PO (08:50)
[2021-07-25 09:19] LABS: BASO % 0.6 % (0.0-1.0); EOS # 0.5 10^3/uL (0.0-0.5); EOS % 7.4 % (0.0-3.0); HEMATOCRIT 35.7 % (36.0-47.0); HEMOGLOBIN 12.2 g/dl (12.0-15.5); LYMPH # 2.1 10^3/uL (1.5-5.0); LYMPH % 34.1 % (24.0-44.0); MEAN CORPUSCULAR HEMOGLOBIN 31.1 pg (27.0-33.0); MEAN CORPUSCULAR HGB CONC 34.2 g/dl (32.0-36.5); MEAN CORPUSCULAR VOLUME 91.1 fl (80.0-96.0); MONO # 0.5 10^3/uL (0.0-0.8); MONO % 8.3 % (2.0-8.0); NEUTROPHILS # 3.1 10^3/uL (1.5-8.5); NEUTROPHILS % 49.3 % (36.0-66.0); PLATELET COUNT, AUTOMATED 180 10^3/uL (150-450); RED BLOOD COUNT 3.92 10^6/uL (4.00-5.40); WHITE BLOOD COUNT 6.3 10^3/uL (4.0-10.0)
[2021-07-25 10:20] LABS: ALBUMIN 3.2 GM/DL (3.2-5.2); ALT/SGPT 115 U/L (12-78); BILIRUBIN,TOTAL 0.1 MG/DL (0.2-1.0); BLOOD UREA NITROGEN 13 MG/DL (7-18); CALCIUM LEVEL 8.5 MG/DL (8.5-10.1); CARBON DIOXIDE LEVEL 22 MEQ/L (21-32); CHLORIDE LEVEL 113 MEQ/L (98-107); CHOLESTEROL LEVEL 119 MG/DL (< 200); CPK CREATINE PHOSPHOKINASE 71 U/L (26-192); CREATININE FOR GFR 0.63 MG/DL (0.55-1.30); GLOMERULAR FILTRATION RATE > 60.0 (>60); GLUCOSE, FASTING 97 MG/DL (70-100); LDH LACTATE DEHYDROGENASE 243 U/L (84-246); MAGNESIUM LEVEL 1.6 MG/DL (1.8-2.4); PHOSPHORUS LEVEL 3.6 MG/DL (2.5-4.9); POTASSIUM SERUM 3.9 MEQ/L (3.5-5.1); SODIUM LEVEL 143 MEQ/L (136-145); TOTAL PROTEIN 6.8 GM/DL (6.4-8.2); TRIGLYCERIDES LEVEL 75 MG/DL (<150)
== END 2021-07-25 10:30 | disposition home or self-care (01) | DRG 812 ==
LOC: M ED 18:46 → M ED INP 07-22 02:53 → M PCU 07-22 04:39 → M MSPAV 07-24 16:48
PROVIDERS: ADMIT Internal Medicine Pulmonary Disease; ATTEND Internal Medicine
PROC: 0BH17EZ Insertion of Endotracheal Airway into Trachea, Via Natural or Artificial Opening (ICD-10-PCS; principal; 2021-07-22)
PROC: 5A1935Z Respiratory Ventilation, Less than 24 Consecutive Hours (ICD-10-PCS; 2021-07-22)
PROC: 009U3ZX Drainage of Spinal Canal, Percutaneous Approach, Diagnostic (ICD-10-PCS; 2021-07-23)
DX: T43.501A Poisoning by unspecified antipsychotics and neuroleptics, accidental (unintentional), initial encounter (principal); E87.2 Acidosis; F25.9 Schizoaffective disorder, unspecified; F31.9 Bipolar disorder, unspecified; G40.901 Epilepsy, unspecified, not intractable, with status epilepticus; F17.200 Nicotine dependence, unspecified, uncomplicated; F41.9 Anxiety disorder, unspecified; F19.10 Other psychoactive substance abuse, uncomplicated; G43.709 Chronic migraine without aura, not intractable, without status migrainosus; R50.9 Fever, unspecified; Z91.51 Personal history of suicidal behavior; R74.01 Elevation of levels of liver transaminase levels; Z79.899 Other long term (current) drug therapy; Z20.822 Contact with and (suspected) exposure to COVID-19

== ENCOUNTER 2021-08-26 08:58 | Emergency (ER) | payer OTHER ==
[~2021-08-26] VITALS: Ht 162.6 cm; Wt 52.3 kg
[~2021-08-26 08:58] MED LIST changes: +KEPP1TAB PO; +NICO2GUM47 PO; +PATIENT COMMENT
[2021-08-26] MEDS ORDERED: levETIRAcetam INJection 500 MG in D5W MINI-BAG PLUS 100 ML IV ONE (09:50)
[2021-08-26 11:00] VITALS: BP 135/89
== END 2021-08-26 11:33 | disposition home or self-care (01) ==
LOC: M ED 08:58 → EDBD 08:58 → M ED 11:33
DX: F15.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, uncomplicated (principal); F11.20 Opioid dependence, uncomplicated; R00.2 Palpitations; F17.210 Nicotine dependence, cigarettes, uncomplicated
CPT/HCPCS: 93005; 96365; 99284; J1953

== ENCOUNTER 2021-10-26 22:57 | Emergency (ER) | payer OTHER ==
[~2021-10-26] VITALS: Ht 154.9 cm; Wt 57.7 kg
[2021-10-27 00:14] LABS: BASO % 0.7 % (0.0-1.0); EOS # 0.1 10^3/uL (0.0-0.5); EOS % 1.1 % (0.0-3.0); HEMATOCRIT 40.6 % (36.0-47.0); HEMOGLOBIN 13.7 g/dl (12.0-15.5); LYMPH # 1.6 10^3/uL (1.5-5.0); LYMPH % 30.3 % (24.0-44.0); MEAN CORPUSCULAR HEMOGLOBIN 30.9 pg (27.0-33.0); MEAN CORPUSCULAR HGB CONC 33.7 g/dl (32.0-36.5); MEAN CORPUSCULAR VOLUME 91.6 fl (80.0-96.0); MONO # 0.4 10^3/uL (0.0-0.8); MONO % 7.2 % (2.0-8.0); NEUTROPHILS # 3.3 10^3/uL (1.5-8.5); NEUTROPHILS % 60.3 % (36.0-66.0); PLATELET COUNT, AUTOMATED 256 10^3/uL (150-450); RED BLOOD COUNT 4.43 10^6/uL (4.00-5.40); WHITE BLOOD COUNT 5.4 10^3/uL (4.0-10.0)
[2021-10-27 00:20] LABS: HCG, SERUM QUALITATIVE NEGATIVE (NEGATIVE)
[2021-10-27 00:41] LABS: ALBUMIN 4.7 GM/DL (3.2-5.2); ALT/SGPT 101 U/L (12-78); BILIRUBIN,DIRECT 0.2 MG/DL (0.0-0.2); BILIRUBIN,TOTAL 0.6 MG/DL (0.2-1.0); BLOOD UREA NITROGEN 9 MG/DL (7-18); CALCIUM LEVEL 9.8 MG/DL (8.5-10.1); CARBON DIOXIDE LEVEL 26 MEQ/L (21-32); CHLORIDE LEVEL 100 MEQ/L (98-107); CREATININE FOR GFR 0.69 MG/DL (0.55-1.30); GLOMERULAR FILTRATION RATE > 60.0 (>60); GLUCOSE, FASTING 89 MG/DL (70-100); POTASSIUM SERUM 3.9 MEQ/L (3.5-5.1); SALICYLATE LEVEL 3.4 MG/DL (5.0-30.0); SODIUM LEVEL 134 MEQ/L (136-145); TOTAL PROTEIN 9.5 GM/DL (6.4-8.2)
[2021-10-27 00:42] LABS: ACETAMINOPHEN LEVEL < 2.0 UG/ML (10.0-30.0); ETHYL ALCOHOL (ETHANOL) < 0.003 % (0.000-0.010)
[2021-10-27] MEDS ORDERED: NS 1,000 ML IV ONE ×2 (00:50)
[2021-10-27 01:43] LABS: AMPHETAMINES LEVEL URINE POSITIVE (NEGATIVE); BARBITURATES URINE NEGATIVE (NEGATIVE); BENZODIAZEPINES URINE NEGATIVE (NEGATIVE); CANNABINOIDS URINE NEGATIVE (NEGATIVE); COCAINE METABOLITE URINE NEGATIVE (NEGATIVE); METHADONE URINE POSITIVE (NEGATIVE); OPIATES URINE NEGATIVE (NEGATIVE); PHENCYCLIDINE URINE NEGATIVE (NEGATIVE)
[2021-10-27 04:30] VITALS: BP 136/89
== END 2021-10-27 07:30 | disposition home or self-care (01) ==
LOC: M ED 22:57
DX: F15.188 Other stimulant abuse with other stimulant-induced disorder (principal); R44.3 Hallucinations, unspecified; R22.31 Localized swelling, mass and lump, right upper limb; F25.9 Schizoaffective disorder, unspecified; F31.9 Bipolar disorder, unspecified; G43.909 Migraine, unspecified, not intractable, without status migrainosus; R56.9 Unspecified convulsions

== ENCOUNTER 2021-10-27 08:31 | Emergency (ER) | payer OTHER ==
[2021-10-27 08:51] VITALS: BP 148/78
== END 2021-10-27 09:40 | disposition home or self-care (01) ==
LOC: M ED 08:31 → EDBD 08:31 → M ED 09:40
DX: F19.10 Other psychoactive substance abuse, uncomplicated (principal); F17.200 Nicotine dependence, unspecified, uncomplicated; Z79.899 Other long term (current) drug therapy

== ENCOUNTER 2021-10-28 14:34 | Emergency (ER) | payer OTHER ==
[~2021-10-28] VITALS: Ht 154.9 cm; Wt 56.1 kg
[2021-10-28 15:10] LABS: HEMATOCRIT 36.7 % (36.0-47.0); HEMOGLOBIN 12.5 g/dl (12.0-15.5); MEAN CORPUSCULAR HEMOGLOBIN 31.8 pg (27.0-33.0); MEAN CORPUSCULAR HGB CONC 34.1 g/dl (32.0-36.5); MEAN CORPUSCULAR VOLUME 93.4 fl (80.0-96.0); PLATELET COUNT, AUTOMATED 212 10^3/uL (150-450); RED BLOOD COUNT 3.93 10^6/uL (4.00-5.40); WHITE BLOOD COUNT 5.7 10^3/uL (4.0-10.0)
[2021-10-28 15:43] LABS: HCG, SERUM QUALITATIVE NEGATIVE (NEGATIVE)
[2021-10-28 16:01] LABS: ACETAMINOPHEN LEVEL < 2.0 UG/ML (10.0-30.0); ALBUMIN 4.1 GM/DL (3.2-5.2); ALT/SGPT 69 U/L (12-78); BILIRUBIN,DIRECT 0.1 MG/DL (0.0-0.2); BILIRUBIN,TOTAL 0.4 MG/DL (0.2-1.0); BLOOD UREA NITROGEN 10 MG/DL (7-18); CALCIUM LEVEL 9.3 MG/DL (8.5-10.1); CARBON DIOXIDE LEVEL 27 MEQ/L (21-32); CHLORIDE LEVEL 105 MEQ/L (98-107); CREATININE FOR GFR 0.62 MG/DL (0.55-1.30); ETHYL ALCOHOL (ETHANOL) 0.003 % (0.000-0.010); GLOMERULAR FILTRATION RATE > 60.0 (>60); GLUCOSE, FASTING 86 MG/DL (70-100); POTASSIUM SERUM 3.5 MEQ/L (3.5-5.1); SALICYLATE LEVEL 3.1 MG/DL (5.0-30.0); SODIUM LEVEL 138 MEQ/L (136-145); TOTAL PROTEIN 7.9 GM/DL (6.4-8.2)
[2021-10-28 16:24] LABS: RSV AMPLIFICATION NEGATIVE (NEGATIVE)
[2021-10-28] MEDS ORDERED: NS 1,680 ML in IV 1 EA IV ONE (22:05)
[2021-10-29 04:10] VITALS: BP 138/79
== END 2021-10-29 04:20 | disposition home or self-care (01) ==
LOC: M ED 14:34 → EDBD 14:34 → M ED 10-29 04:20
DX: R00.2 Palpitations (principal); F19.10 Other psychoactive substance abuse, uncomplicated; R56.9 Unspecified convulsions; F31.9 Bipolar disorder, unspecified; F17.200 Nicotine dependence, unspecified, uncomplicated; Z79.899 Other long term (current) drug therapy

== ENCOUNTER 2022-02-06 03:30 | Emergency (ER) | payer OTHER ==
[~2022-02-06] VITALS: Ht 157.5 cm; Wt 48.0 kg
[2022-02-06] MEDS ORDERED: OLANZapine INTRAMUSCULAR 10MG VIAL IM ONE (03:45)
[2022-02-06] MEDS ORDERED: DEXTROSE 50% 50 ML SYRINGE As Ordered ONE (03:52)
[2022-02-06] MEDS ORDERED: DEXTROSE 50% 50 ML SYRINGE IV STA (04:05)
[2022-02-06 04:14] LABS: BASO # 0.1 10^3/uL (0.0-0.2); BASO % 0.6 % (0.0-1.0); HEMATOCRIT 39.8 % (36.0-47.0); HEMOGLOBIN 13.4 g/dl (12.0-15.5); LYMPH # 1.7 10^3/uL (1.5-5.0); LYMPH % 8.4 % (24.0-44.0); MEAN CORPUSCULAR HEMOGLOBIN 31.2 pg (27.0-33.0); MEAN CORPUSCULAR HGB CONC 33.7 g/dl (32.0-36.5); MEAN CORPUSCULAR VOLUME 92.8 fl (80.0-96.0); MONO # 1.5 10^3/uL (0.0-0.8); NEUTROPHILS # 17.3 10^3/uL (1.5-8.5); NEUTROPHILS % 83.4 % (36.0-66.0); PLATELET COUNT, AUTOMATED 281 10^3/uL (150-450); RED BLOOD COUNT 4.29 10^6/uL (4.00-5.40); WHITE BLOOD COUNT 20.8 10^3/uL (4.0-10.0)
[2022-02-06 04:27] LABS: HCG, SERUM QUALITATIVE NEGATIVE (NEGATIVE)
[2022-02-06 04:36] LABS: ALT/SGPT 84 U/L (12-78); BLOOD UREA NITROGEN 38 MG/DL (7-18); CALCIUM LEVEL 10.5 MG/DL (8.5-10.1); CARBON DIOXIDE LEVEL 21 MEQ/L (21-32); CHLORIDE LEVEL 102 MEQ/L (98-107); CREATININE FOR GFR 1.45 MG/DL (0.55-1.30); GLOMERULAR FILTRATION RATE 43.5 (>60); GLUCOSE, FASTING 53 MG/DL (70-100); POTASSIUM SERUM 5.5 MEQ/L (3.5-5.1); SODIUM LEVEL 136 MEQ/L (136-145)
[2022-02-06 04:37] LABS: ACETAMINOPHEN LEVEL 27.5 UG/ML (10.0-30.0); ALBUMIN 4.9 GM/DL (3.2-5.2); BILIRUBIN,DIRECT 0.3 MG/DL (0.0-0.2); BILIRUBIN,TOTAL 0.8 MG/DL (0.2-1.0); ETHYL ALCOHOL (ETHANOL) < 0.003 % (0.000-0.010); TOTAL PROTEIN 9.1 GM/DL (6.4-8.2)
[2022-02-06] MEDS ORDERED: LR 1,000 ML IV ONE (05:30)
[2022-02-06] MEDS ORDERED: NS 1,000 ML IV ONE (07:20)
[2022-02-06] MEDS ORDERED: LIDOCAINE 2% 5ML JELLY UROJET TOP ONE (07:25)
[2022-02-06 07:56] LABS: BASO # 0.1 10^3/uL (0.0-0.2); BASO % 0.4 % (0.0-1.0); EOS % 0.1 % (0.0-3.0); HEMATOCRIT 40.1 % (36.0-47.0); HEMOGLOBIN 13.6 g/dl (12.0-15.5); LYMPH # 1.6 10^3/uL (1.5-5.0); LYMPH % 10.4 % (24.0-44.0); MEAN CORPUSCULAR HEMOGLOBIN 31.8 pg (27.0-33.0); MEAN CORPUSCULAR HGB CONC 33.9 g/dl (32.0-36.5); MEAN CORPUSCULAR VOLUME 93.7 fl (80.0-96.0); MONO # 0.7 10^3/uL (0.0-0.8); MONO % 4.7 % (2.0-8.0); NEUTROPHILS # 13.2 10^3/uL (1.5-8.5); PLATELET COUNT, AUTOMATED 226 10^3/uL (150-450); RED BLOOD COUNT 4.28 10^6/uL (4.00-5.40); WHITE BLOOD COUNT 15.7 10^3/uL (4.0-10.0)
[2022-02-06 08:26] LABS: BLOOD UREA NITROGEN 32 MG/DL (7-18); CARBON DIOXIDE LEVEL 23 MEQ/L (21-32); CHLORIDE LEVEL 104 MEQ/L (98-107); CREATININE FOR GFR 1.09 MG/DL (0.55-1.30); GLOMERULAR FILTRATION RATE > 60.0 (>60); GLUCOSE, FASTING 77 MG/DL (70-100); POTASSIUM SERUM 4.9 MEQ/L (3.5-5.1); SODIUM LEVEL 136 MEQ/L (136-145)
[2022-02-06 08:27] LABS: CALCIUM LEVEL 9.9 MG/DL (8.5-10.1)
[2022-02-06 08:29] LABS: AMPHETAMINES LEVEL URINE NEGATIVE (NEGATIVE); BARBITURATES URINE NEGATIVE (NEGATIVE); BENZODIAZEPINES URINE NEGATIVE (NEGATIVE); CANNABINOIDS URINE NEGATIVE (NEGATIVE); COCAINE METABOLITE URINE NEGATIVE (NEGATIVE); METHADONE URINE POSITIVE (NEGATIVE); OPIATES URINE NEGATIVE (NEGATIVE); PHENCYCLIDINE URINE NEGATIVE (NEGATIVE)
[2022-02-06 11:15] VITALS: BP 142/80
== END 2022-02-06 11:35 | disposition home or self-care (01) ==
LOC: M ED 03:30
DX: F19.10 Other psychoactive substance abuse, uncomplicated (principal); R10.9 Unspecified abdominal pain; T43.622A Poisoning by amphetamines, intentional self-harm, initial encounter; F17.200 Nicotine dependence, unspecified, uncomplicated; Z79.899 Other long term (current) drug therapy

== ENCOUNTER 2022-04-05 11:49 | Emergency (ER) | payer OTHER ==
[~2022-04-05] VITALS: Ht 154.9 cm; Wt 44.8 kg
[2022-04-05 13:26] VITALS: BP 115/69
[2022-04-05] MEDS ORDERED: DALBAVANCIN 1,500 MG in D5W 250 ML IV ONE (13:45)
[2022-04-05 14:07] LABS: BLOOD UREA NITROGEN 22 MG/DL (7-18); CALCIUM LEVEL 9.5 MG/DL (8.5-10.1); CARBON DIOXIDE LEVEL 26 MEQ/L (21-32); CHLORIDE LEVEL 99 MEQ/L (98-107); CREATININE FOR GFR 0.56 MG/DL (0.55-1.30); GLOMERULAR FILTRATION RATE > 60.0 (>60); GLUCOSE, FASTING 72 MG/DL (70-100); POTASSIUM SERUM 3.7 MEQ/L (3.5-5.1); SODIUM LEVEL 133 MEQ/L (136-145)
== END 2022-04-05 15:17 | disposition home or self-care (01) ==
LOC: M ED 11:49
DX: L03.114 Cellulitis of left upper limb (principal); F19.10 Other psychoactive substance abuse, uncomplicated; F11.20 Opioid dependence, uncomplicated; F32.A Depression, unspecified; F41.9 Anxiety disorder, unspecified; F25.9 Schizoaffective disorder, unspecified
CPT/HCPCS: 76882; 80048; 96365; 99283; J0875

== ENCOUNTER 2022-10-04 15:02 | Emergency (ER) | payer OTHER ==
[~2022-10-04] VITALS: Ht 152.4 cm; Wt 53.5 kg
[~2022-10-04 15:02] MED LIST changes: -BENZ-52 PO; +BENZ1TAB5 PO; +TOPI-254; +TOPI-254 PO; -TOPI50TA9; -TOPI50TA9 PO
[2022-10-04] MEDS ORDERED: MIDAZOLAM INJ 2MG/2ML VIAL IV ONE (15:15)
[2022-10-04 15:43] LABS: BASO # 0.1 10^3/uL (0.0-0.2); BASO % 0.8 % (0.0-1.0); EOS # 0.1 10^3/uL (0.0-0.5); EOS % 1.4 % (0.0-3.0); HEMATOCRIT 40.1 % (36.0-47.0); HEMOGLOBIN 13.4 g/dl (12.0-15.5); LYMPH # 2.4 10^3/uL (1.5-5.0); LYMPH % 26.8 % (24.0-44.0); MEAN CORPUSCULAR HEMOGLOBIN 31.2 pg (27.0-33.0); MEAN CORPUSCULAR HGB CONC 33.4 g/dl (32.0-36.5); MEAN CORPUSCULAR VOLUME 93.5 fl (80.0-96.0); MONO # 0.8 10^3/uL (0.0-0.8); MONO % 8.6 % (2.0-8.0); NEUTROPHILS # 5.5 10^3/uL (1.5-8.5); NEUTROPHILS % 62.2 % (36.0-66.0); PLATELET COUNT, AUTOMATED 283 10^3/uL (150-450); RED BLOOD COUNT 4.29 10^6/uL (4.00-5.40); WHITE BLOOD COUNT 8.8 10^3/uL (4.0-10.0)
[2022-10-04 16:10] LABS: ETHYL ALCOHOL (ETHANOL) < 0.003 % (0.000-0.010)
[2022-10-04 16:12] LABS: ACETAMINOPHEN LEVEL < 2.0 UG/ML (10.0-20.0); CPK CREATINE PHOSPHOKINASE 249 U/L (34-145); SALICYLATE LEVEL < 3.0 MG/DL (<30)
[2022-10-04 16:16] LABS: ALBUMIN 4.3 G/DL (3.2-5.2); ALKALINE PHOSPHATASE 105 U/L (46-116); ALT/SGPT 110 U/L (7.0-40); AST/SGOT 79 U/L (<34); BILIRUBIN,DIRECT 0.1 MG/DL (<0.4); BILIRUBIN,TOTAL 0.4 MG/DL (0.3-1.2); BLOOD UREA NITROGEN 25 MG/DL (9-23); CALCIUM LEVEL 9.6 MG/DL (8.5-10.1); CARBON DIOXIDE LEVEL 27 MMOL/L (20-31); CHLORIDE LEVEL 101 MMOL/L (98-107); GLOMERULAR FILTRATION RATE > 60.0 (>60); GLUCOSE, FASTING 84 MG/DL (60-100); POTASSIUM SERUM 4.3 MMOL/L (3.5-5.1); SODIUM LEVEL 137 MMOL/L (136-145); TOTAL PROTEIN 8.4 G/DL (5.7-8.2)
[2022-10-04 16:21] LABS: BARBITURATES URINE NEGATIVE (NEGATIVE); CANNABINOIDS URINE NEGATIVE (NEGATIVE); PHENCYCLIDINE URINE NEGATIVE (NEGATIVE)
[2022-10-04 16:22] LABS: COCAINE METABOLITE URINE NEGATIVE (NEGATIVE); METHADONE URINE NEGATIVE (NEGATIVE)
[2022-10-04 16:25] LABS: AMPHETAMINES LEVEL URINE POSITIVE (NEGATIVE); BENZODIAZEPINES URINE POSITIVE (NEGATIVE); OPIATES URINE POSITIVE (NEGATIVE)
[2022-10-04 16:29] LABS: HCG, SERUM QUALITATIVE NEGATIVE (NEGATIVE)
[2022-10-04] MEDS ORDERED: IBUPROFEN 600MG TAB PO ONE (16:40)
[2022-10-04 16:47] VITALS: BP 115/75
== END 2022-10-04 17:42 | disposition left against medical advice (07) ==
LOC: M ED 15:02 → EDBD 15:02 → M ED 17:42
DX: R41.0 Disorientation, unspecified (principal); F25.9 Schizoaffective disorder, unspecified; F31.9 Bipolar disorder, unspecified; R56.9 Unspecified convulsions; G43.909 Migraine, unspecified, not intractable, without status migrainosus; F19.10 Other psychoactive substance abuse, uncomplicated
CPT/HCPCS: 36415; 80048; 80076; 80143; 80307; 82077; 82550; 84443; 84703; 85025; 93005; 93041; 94760; 99285; J2250

== ENCOUNTER 2022-10-17 02:17 | Emergency (ER) | payer OTHER ==
[~2022-10-17] VITALS: Ht 154.9 cm; Wt 54.5 kg
[2022-10-17 02:32] VITALS: BP 131/87
== END 2022-10-17 04:03 | disposition left against medical advice (07) ==
LOC: EDBD 02:17 → M ED 02:17
DX: S69.91XA Unspecified injury of right wrist, hand and finger(s), initial encounter (principal); W19.XXXA Unspecified fall, initial encounter; Y92.89 Other specified places as the place of occurrence of the external cause; Y93.89 Activity, other specified; Y99.8 Other external cause status; Z53.21 Procedure and treatment not carried out due to patient leaving prior to being seen by health care provider

== ENCOUNTER 2022-10-29 15:06 | Emergency (ER) | payer OTHER ==
[~2022-10-29] VITALS: Ht 154.9 cm; Wt 53.0 kg
[2022-10-29] MEDS ORDERED: KETOROLAC 30 MG/ML 1ML VIAL IM ONE (16:40)
[2022-10-29] MEDS ORDERED: TRAM50TA2 PO (17:43)
[2022-10-29 17:56] VITALS: BP 132/65
== END 2022-10-29 17:58 | disposition home or self-care (01) ==
LOC: M ED 15:06
DX: S52.501A Unspecified fracture of the lower end of right radius, initial encounter for closed fracture (principal); W00.0XXA Fall on same level due to ice and snow, initial encounter; Y92.89 Other specified places as the place of occurrence of the external cause; Y93.01 Activity, walking, marching and hiking; Y99.8 Other external cause status
CPT/HCPCS: 73090; 73110; 73130; 73200; 96372; 99283; J1885

== ENCOUNTER 2022-11-05 20:13 | Inpatient (IN) | payer OTHER ==
[~2022-11-05] VITALS: Ht 154.9 cm; Wt 46.0 kg
[~2022-11-05 20:13] MED LIST changes: +TRAM50TA2 PO
[2022-11-05 21:43] LABS: HEMATOCRIT 44.1 % (36.0-47.0); HEMOGLOBIN 14.6 g/dl (12.0-15.5); MEAN CORPUSCULAR HEMOGLOBIN 31.3 pg (27.0-33.0); MEAN CORPUSCULAR HGB CONC 33.1 g/dl (32.0-36.5); MEAN CORPUSCULAR VOLUME 94.6 fl (80.0-96.0); PLATELET COUNT, AUTOMATED 246 10^3/uL (150-450); RED BLOOD COUNT 4.66 10^6/uL (4.00-5.40)
[2022-11-05 22:02] LABS: BARBITURATES URINE NEGATIVE (NEGATIVE); COCAINE METABOLITE URINE NEGATIVE (NEGATIVE); METHADONE URINE NEGATIVE (NEGATIVE); PHENCYCLIDINE URINE NEGATIVE (NEGATIVE)
[2022-11-05 22:03] LABS: BENZODIAZEPINES URINE NEGATIVE (NEGATIVE)
[2022-11-05 22:05] LABS: AMPHETAMINES LEVEL URINE POSITIVE (NEGATIVE); CANNABINOIDS URINE POSITIVE (NEGATIVE); ETHYL ALCOHOL (ETHANOL) 0.004 % (0.000-0.010); OPIATES URINE POSITIVE (NEGATIVE)
[2022-11-05 22:06] LABS: ACETAMINOPHEN LEVEL < 2.0 UG/ML (10.0-20.0)
[2022-11-05 22:07] LABS: ALBUMIN 3.9 G/DL (3.2-5.2); ALKALINE PHOSPHATASE 132 U/L (46-116); ALT/SGPT 108 U/L (7.0-40); AST/SGOT 86 U/L (<34); BILIRUBIN,DIRECT 0.1 MG/DL (<0.4); BILIRUBIN,TOTAL 0.2 MG/DL (0.3-1.2); BLOOD UREA NITROGEN 21 MG/DL (9-23); CALCIUM LEVEL 9.4 MG/DL (8.5-10.1); CARBON DIOXIDE LEVEL 27 MMOL/L (20-31); CHLORIDE LEVEL 103 MMOL/L (98-107); CREATININE FOR GFR 0.54 MG/DL (0.55-1.30); GLOMERULAR FILTRATION RATE > 60.0 (>60); GLUCOSE, FASTING 80 MG/DL (60-100); POTASSIUM SERUM 4.7 MMOL/L (3.5-5.1); SALICYLATE LEVEL < 3.0 MG/DL (<30); SODIUM LEVEL 136 MMOL/L (136-145); TOTAL PROTEIN 7.9 G/DL (5.7-8.2)
[2022-11-05 22:09] LABS: THYROID STIMULATING HORMONE 0.936 uIU/ML (0.55-4.78)
[2022-11-05 22:17] LABS: HCG, SERUM QUALITATIVE NEGATIVE (NEGATIVE)
[2022-11-05] MEDS ORDERED: LORazepam 0.5 MG TAB PO ONE (23:30)
[2022-11-06] MEDS ORDERED: TRAM50TA2 PO (04:15)
[2022-11-06] MEDS ORDERED: MOM 30ML SUSPENSION UDC PO PRN (05:15)
[2022-11-06] MEDS ORDERED: ACETAMINOPHEN TAB 650MG DOSE (2X325MG) PO PRN (05:15)
[2022-11-06] MEDS ORDERED: MAALOX 30 ML SUSP *UDC PO PRN (05:15)
[2022-11-06 09:55] VITALS: BP 132/82
[2022-11-06] MEDS: OLANZapine ORAL DISINTEGRATING TAB 5MG PO PRN ×3 (10:46→20:14)
[2022-11-06] MEDS: traZODone 50 MG TAB PO PRN (20:14)
[2022-11-06] MEDS: PALIPERIDONE 3MG ER TAB (INVEGA) PO SCH (20:55)
[2022-11-06] MEDS ORDERED: METHADONE 10MG TAB PO SCH (21:00)
[2022-11-06] MEDS: METHADONE 10MG TAB PO ONE ×2 (21:41→21:45)
[2022-11-07 06:05] VITALS: BP 136/87
[2022-11-07 11:07] LABS: HEPATITIS B SURFACE ANTIGEN NEGATIVE (NEGATIVE)
[2022-11-07 11:28] LABS: HEPATITIS B CORE ANTIBODY IGM NEGATIVE (NEGATIVE)
[2022-11-07 11:33] LABS: HEPATITIS C VIRUS ABY INDEX > 11.0 INDEX (<0.8)
[2022-11-07] MEDS: OLANZapine ORAL DISINTEGRATING TAB 5MG PO PRN (13:49)
[2022-11-07] MEDS: GABAPENTIN 300 MG CAP PO SCH ×2 (15:46→20:59)
[2022-11-07] MEDS: traZODone 50 MG TAB PO PRN (20:58)
[2022-11-07] MEDS: PALIPERIDONE 3MG ER TAB (INVEGA) PO SCH (20:59)
[2022-11-08 06:12] VITALS: BP 109/70
[2022-11-08] MEDS ORDERED: med rec comment (06:14)
[2022-11-08] MEDS ORDERED: HOME MED LIST COMPLETE! XX SCH (06:15)
[2022-11-08] MEDS: cloNIDine 0.1MG TABLET PO SCH (09:34)
[2022-11-08] MEDS: GABAPENTIN 300 MG CAP PO SCH ×3 (09:34→20:03)
[2022-11-08] MEDS: OLANZapine ORAL DISINTEGRATING TAB 5MG PO PRN ×2 (14:35→19:39)
[2022-11-08] MEDS: NICOTINE POLACRILEX 2 MG GUM PO PRN (15:37)
[2022-11-08 17:44] VITALS: BP 108/68
[2022-11-08] MEDS: PALIPERIDONE 3MG ER TAB (INVEGA) PO SCH (20:03)
[2022-11-08] MEDS: traZODone 50 MG TAB PO PRN (20:03)
[2022-11-09 06:13] VITALS: BP 130/70
[2022-11-09 07:57] VITALS: BP 130/70
[2022-11-09] MEDS: GABAPENTIN 300 MG CAP PO SCH (07:57)
[2022-11-09] MEDS: cloNIDine 0.1MG TABLET PO SCH (07:57)
[2022-11-09] MEDS ORDERED: GABA600T4 PO (09:41)
[2022-11-09] MEDS ORDERED: PALI1TAB2 PO (09:41)
[2022-11-09] MEDS ORDERED: NICO2GUM PO (09:41)
[2022-11-09] MEDS ORDERED: TRAZ-252 PO (09:41)
[2022-11-09] MEDS ORDERED: CLONI1TA PO (09:41)
[2022-11-09] MEDS ORDERED: OLAN5ZYD PO (09:41)
[2022-11-09] MEDS: NICOTINE POLACRILEX 2 MG GUM PO PRN (10:26)
[2022-11-09] MEDS: OLANZapine ORAL DISINTEGRATING TAB 5MG PO PRN (10:26)
== END 2022-11-09 12:42 | disposition home or self-care (01) | DRG 773 ==
LOC: M ED 20:13 → M ED INP 11-06 05:11 → M PSY 11-06 09:44
PROVIDERS: ADMIT Student in an Organized Health Care Education/Training Program; ATTEND Student in an Organized Health Care Education/Training Program
DX: F15.151 Other stimulant abuse with stimulant-induced psychotic disorder with hallucinations (principal); F11.13 Opioid abuse with withdrawal; G43.909 Migraine, unspecified, not intractable, without status migrainosus; G40.909 Epilepsy, unspecified, not intractable, without status epilepticus; F12.10 Cannabis abuse, uncomplicated; R74.01 Elevation of levels of liver transaminase levels; Z79.899 Other long term (current) drug therapy

== ENCOUNTER → 2022-12-15 | Outpatient (CLI) | payer OTHER ==
[~2022-12-15] MED LIST changes: +CLONI1TA PO
== END ==
LOC: M RAD 12:04
PROVIDERS: ATTEND Family Medicine Addiction Medicine
DX: S62.91XA Unspecified fracture of right hand, initial encounter for closed fracture (principal); W18.30XA Fall on same level, unspecified, initial encounter; Y92.009 Unspecified place in unspecified non-institutional (private) residence as the place of occurrence of the external cause

== ENCOUNTER 2023-01-08 17:32 | Emergency (ER) | payer OTHER ==
[~2023-01-08] VITALS: Ht 154.9 cm; Wt 47.1 kg
[2023-01-08] MEDS ORDERED: IBUPROFEN 400MG TAB PO ONE (18:15)
[2023-01-08] MEDS ORDERED: ACETAMINOPHEN TAB 650MG DOSE (2X325MG) PO ONE (18:15)
[2023-01-08 19:14] VITALS: BP 118/79; TEMP 98.8; O2SAT 98
== END 2023-01-08 19:20 | disposition home or self-care (01) ==
LOC: M ED 17:32 → EDBD 17:32 → M ED 19:20
DX: F19.10 Other psychoactive substance abuse, uncomplicated (principal); B18.2 Chronic viral hepatitis C; Z79.899 Other long term (current) drug therapy

== ENCOUNTER 2023-04-18 14:34 | Emergency (ER) | payer OTHER ==
[~2023-04-18] VITALS: Ht 165.1 cm; Wt 55.5 kg
[~2023-04-18 14:34] MED LIST changes: -AMIT25TA17 PO; +AMIT25TA19 PO; -GABA-283 PO; +GABA-284 PO; -MIRT-62 PO; +MIRT-88 PO
[2023-04-18 14:35] VITALS: BP 98/56; TEMP 98; O2SAT 98
[2023-04-18] MEDS ORDERED: OXYB5TAB10 (14:54)
[2023-04-18] MEDS ORDERED: MELO15TA28 (14:54)
== END 2023-04-18 18:17 | disposition left against medical advice (07) ==
LOC: M ED 14:34
DX: Z53.21 Procedure and treatment not carried out due to patient leaving prior to being seen by health care provider (principal)

== ENCOUNTER 2024-06-18 13:26 | Emergency (ER) | payer OTHER ==
[~2024-06-18 13:26] MED LIST changes: +DOXY-441 PO; -DOXY-443 PO; +FLUO-290 PO; +FLUO-365 PO; -FLUO10CA18 PO; -FLUO20CA22 PO; +GABA-1172 PO; +GABA-1490 PO; -GABA-282 PO; -GABA600T4 PO; +MELO15TA28; -MIRT-60 PO; +MIRT-89 PO; -OLAN15TA13 PO; +OLAN15TA69 PO; -OLAN20TA14 PO; +OLAN20TA53 PO; -OXYB5TAB10; -OXYB5TAB10 PO; +OXYB5TAB14; +OXYB5TAB14 PO; -RISP-10 PO; +RISP-105 PO; -RISP-8 PO; +RISP3TAB77 PO; +TOPI-21; +TOPI-21 PO; -TOPI-254; -TOPI-254 PO
[2024-06-18] MEDS: ACETAMINOPHEN 325 MG TAB PO ONE (17:12)
[2024-06-18 17:33] LABS: HEMATOCRIT 40.6 % (36.0-47.0); HEMOGLOBIN 14.2 g/dl (12.0-15.5); MEAN CORPUSCULAR HEMOGLOBIN 31.6 pg (27.0-33.0); MEAN CORPUSCULAR VOLUME 90.2 fl (80.0-96.0); PLATELET COUNT, AUTOMATED 291 10^3/uL (150-450); WHITE BLOOD COUNT 12.5 10^3/uL (4.0-10.0)
[2024-06-18 18:01] LABS: HCG, SERUM QUALITATIVE NEGATIVE (NEGATIVE)
[2024-06-18 18:02] LABS: ETHYL ALCOHOL (ETHANOL) < 0.003 % (0.000-0.010); SALICYLATE LEVEL < 3.0 MG/DL (<30)
[2024-06-18 18:03] LABS: ALBUMIN 3.6 G/DL (3.2-5.2); ALKALINE PHOSPHATASE 78 U/L (35-104); ALT/SGPT 178 U/L (7.0-40); AST/SGOT 100 U/L (<34); BILIRUBIN,DIRECT 0.1 MG/DL (<0.4); BILIRUBIN,TOTAL 0.4 MG/DL (0.3-1.2); BLOOD UREA NITROGEN 18 MG/DL (9-23); CALCIUM LEVEL 9.7 MG/DL (8.5-10.1); CARBON DIOXIDE LEVEL 22 MMOL/L (20-31); CHLORIDE LEVEL 103 MMOL/L (98-107); CREATININE FOR GFR 0.41 MG/DL (0.55-1.30); GLOMERULAR FILTRATION RATE > 60.0 (>60); GLUCOSE, FASTING 219 MG/DL (60-100); POTASSIUM SERUM 3.5 MMOL/L (3.5-5.1); SODIUM LEVEL 135 MMOL/L (136-145); TOTAL PROTEIN 7.9 G/DL (5.7-8.2)
[2024-06-18 18:05] LABS: THYROID STIMULATING HORMONE 0.182 uIU/ML (0.55-4.78)
[2024-06-18 18:26] LABS: AMPHETAMINES LEVEL URINE NEGATIVE (NEGATIVE)
[2024-06-18 18:27] LABS: BARBITURATES URINE NEGATIVE (NEGATIVE); BENZODIAZEPINES URINE NEGATIVE (NEGATIVE); COCAINE METABOLITE URINE NEGATIVE (NEGATIVE); METHADONE URINE NEGATIVE (NEGATIVE); PHENCYCLIDINE URINE NEGATIVE (NEGATIVE)
[2024-06-18 18:29] LABS: CANNABINOIDS URINE POSITIVE (NEGATIVE); OPIATES URINE POSITIVE (NEGATIVE)
[2024-06-18 20:40] VITALS: BP 138/82; TEMP 97.8; O2SAT 100
== END 2024-06-18 20:47 | disposition home or self-care (01) ==
LOC: EDBD 13:26 → M ED 13:26
DX: F11.10 Opioid abuse, uncomplicated (principal); B18.2 Chronic viral hepatitis C; F17.210 Nicotine dependence, cigarettes, uncomplicated; Z79.899 Other long term (current) drug therapy

== ENCOUNTER 2024-10-13 17:38 | Emergency (ER) | payer OTHER ==
[~2024-10-13] VITALS: Ht 154.9 cm; Wt 49.5 kg
[2024-10-13 17:40] VITALS: BP 136/92; TEMP 98.1; O2SAT 95
[2024-10-13] MEDS: BENZONATATE 100MG CAPSULE PO ONE (18:59)
[2024-10-13] MEDS: ACETAMINOPHEN 500 MG TAB PO ONE (19:01)
== END 2024-10-13 19:25 | disposition left against medical advice (07) ==
LOC: M ED 17:38
DX: R05.9 Cough, unspecified (principal); F17.200 Nicotine dependence, unspecified, uncomplicated; F19.10 Other psychoactive substance abuse, uncomplicated; M79.7 Fibromyalgia; F31.9 Bipolar disorder, unspecified; Z53.9 Procedure and treatment not carried out, unspecified reason